=== PATIENT | male | born 1945 | race Caucasian/White ===

== ENCOUNTER → 2017-11-19 12:35 | Outpatient (CLI) | payer MEDICARE, OTHER, SELFPAY | PROVIDERS: Family Provider Family Medicine; PCP Family Medicine; Visit Provider Nurse Practitioner Acute Care | DX: R20.0 Anesthesia of skin (principal); R20.2 Paresthesia of skin | CPT/HCPCS: 98960; G0463 ==

== ENCOUNTER → 2017-11-24 07:15 | Outpatient (CLI) | payer MEDICARE, OTHER, SELFPAY ==
--- NOTE | 2017-11-24 07:20 | CT_ITS ---
STUDY: CT CERVICAL SPINE WITHOUT CONTRAST REASON FOR EXAM: Male, 72 years old. Numbness and tingling in the right side of the neck and pain. RADIATION DOSAGE (If Supplied By Facility): CTDIvol = ( 28.50 ) mGy, DLP = ( 653.04 ) mGycm TECHNIQUE: High resolution transaxial imaging was performed without contrast material. Sagittal and coronal images were reconstructed. Individualized dose optimization techniques were used for this CT. COMPARISON: None FINDINGS: Normal craniovertebral junction. There are degenerative changes of the anterior atlantoaxial articulation. Normal odontoid process. Normal cervical lordosis. Normal vertebral bodies and posterior osseous elements. C2-3: Facet joint osteoarthritis worse on the left side with hypertrophy. Mild left neural foraminal stenosis. C3-4: Facet joint osteoarthritis and hypertrophy on the right side with mild degree of right neural foraminal stenosis. C4-5: Mild degree of disc space narrowing and anterior spondylosis. No significant stenosis is seen. C5-6: Marked degree of disc space narrowing in the spondylosis anteriorly and posteriorly with uncovertebral arthrosis. Mild degree of bilateral neural foraminal stenosis. C6-7: Marked degree of disc space narrowing and spondylosis. Uncovertebral arthrosis. Moderate to severe stenosis of the right intervertebral foramen. Mild stenosis of the left intervertebral foramen. C7-T1: Normal endplates. Normal disc height and morphology. Normal central canal and intervertebral neuroforamina. Normal visualized soft tissue structures. CT/Spine Cervical without Contras IMPRESSION: Multilevel degenerative changes, as described above. Moderate to severe stenosis of the right intervertebral foramen at the C6-C7 level. Electronically Signed: Quan Peterson MD at 10:41 EST Tel [phone], Service support ,
--- NOTE | 2017-11-24 07:20 | CT_ITS ---
STUDY: CT THORACIC SPINE WITHOUT CONTRAST REASON FOR EXAM: Male, 72 years old. Numbness and tingling along the right side of the body. RADIATION DOSAGE (If Supplied By Facility): CTDIvol = ( 42.60 ) mGy, DLP = ( 1738.16 ) mGycm TECHNIQUE: The patient was scanned in a multi detector CT scanner. High resolution imaging was performed. Images were obtained from T1 to T12. Sagittal and coronal images were reconstructed. Individualized dose optimization techniques were used for this CT. COMPARISON: None. FINDINGS: There is an increased kyphosis of the thoracic spine. There is no substantial scoliosis. There is demineralization of the thoracic vertebrae. Approximately 50% loss of height of the T2 and T3 vertebrae. There is multilevel degenerative disc disease with loss of the disc space heights. The soft tissue structures are unremarkable. CT/Spine Thoracic without Contras IMPRESSION: The mineralization of the thoracic vertebra with loss of height of the T2 and T3 thoracic vertebrae. Electronically Signed: Quan Peterson MD at 10:51 EST Tel [phone], Service support ,
== END ==
PROVIDERS: Family Provider Family Medicine; PCP Family Medicine; Visit Provider Nurse Practitioner Acute Care
DX: R20.2 Paresthesia of skin (principal); R20.0 Anesthesia of skin
CPT/HCPCS: 72125; 72128

== ENCOUNTER → 2018-01-04 09:19 | Outpatient (CLI) | payer MEDICARE, OTHER, SELFPAY ==
[2018-01-04 12:16] LABS: Color, Urine Yellow (Yellow); Glucose, Dipstick Normal (Normal); Ketone-Dipstick Negative (Negative); Leukocyte Esterase-Dipstick Negative /ul (Negative); Nitrite-Dipstick Negative (Negative); Occult Blood-Urine Negative /ul (Negative); Protein-Dipstick Negative (Negative); Urine Bilirubin Dipstick Negative (Negative); Urine Clarity Sl. Cloudy (Clear); Urine Urobilinogen Normal (Normal)
[2018-01-04 12:20] LABS: Absolute Lymphocyte Count 0.91 X10^3/ul (0.83-4.51); Absolute Neutrophil Count 1.9 X10^3/uL (2.0-7.7); Basophil# 0.02 X10^3/uL; Basophil% 0.6 % (0-1); Eosinophil# 0.26 X10^3/uL; Eosinophils% 7.5 % (0-5); Hematocrit 35.9 % (40-54); Lymphocyte # 0.91 X10^3/ul (4.0); Lymphocyte % 26.2 % (19-41); Mean Corp Hgb Conc 30.6 g/gl (32-36); Mean Platelet Vol. 10.3 fl (6.2-12.0); Monocyte# 0.35 X10^3/uL; Monocyte% 10.1 % (0-10); Neutrophil # 1.92 X10^3/uL (2.7-7.7); Neutrophil % 55.3 % (47-70); Platelet Count 296 K/mm3 (150-450); RBC Distribution Width CV 15.5 % (11.6-14.6); RBC Distribution Width SD 50.1 fl (35.1-43.9); Red Blood Count 4.08 M/mm3 (4.6-6.2); White Blood Count 3.5 K/mm3 (4.4-11.0)
[2018-01-04 12:31] LABS: POSITIVE COUNT NO; POSITIVE DIFFERENTIAL NO; POSITIVE MORPHOLOGY NO
[2018-01-04 12:37] LABS: ALB/GLOB Ratio 0.9 RATIO (0.9-2.4); AST(SGOT) 30 U/L (15-37); Alanine Aminotransfer ALT/SGPT 47 U/L (16-61); Albumin, Serum 3.9 g/dL (3.2-5.0); Alkaline Phosphatase 207 U/L (45-117); Anion Gap 10 (5-15); BUN 16 mg/dL (7-18); BUN/Creat Ratio 21.8 RATIO (10-20); Calcium,Total 8.9 mg/dL (8.5-10.1); Chloride 109 mmol/L (98-107); Creatinine, Serum 0.73 mg/dL (0.70-1.30); EST Glomerular Filtration Rate 112 mL/min (>60); Est Glom Filt Rate - Afr Amer 135 mL/min (>60); Ferritin 14 ng/mL (26-388); Globulin 4.4 g/dL (2.2-4.2); Glucose 87 mg/dL (74-106); Iron 41 ug/dL (65-175); Protein, Total 8.3 g/dL (6.4-8.2); Sodium Level 145 mmol/L (136-145); T4 Free Direct 1.09 ng/dL (0.76-1.46); Thyroid Stim Hormone (TSH) 5.21 uIU/mL (0.358-3.74)
[2018-01-06 16:10] LABS: PROEL- Alpha-1 Globulin 0.2 g/dL (0.0-0.4); PROEL- Alpha-2 Globulin 0.7 g/dL (0.4-1.0); PROEL- Beta Globulin 1.2 g/dL (0.7-1.3); PROEL- Gamma Globulin 1.8 g/dL (0.4-1.8); PROEL- Globulin, Total 3.9 g/dL (2.2-3.9); PROEL- TOTAL PROTEIN 7.9 g/dL (6.0-8.5)
== END ==
PROVIDERS: Family Provider Family Medicine; PCP Family Medicine; Visit Provider Family Medicine
DX: D64.9 Anemia, unspecified (principal); R60.9 Edema, unspecified; R53.83 Other fatigue
CPT/HCPCS: 36415; 80053; 81002; 82728; 83540; 84165; 84439; 84443; 85025

== ENCOUNTER → 2018-01-14 08:18 | Outpatient (CLI) | payer MEDICARE, OTHER, SELFPAY ==
[2018-01-14 12:50] LABS: ALB/GLOB Ratio 0.9 RATIO (0.9-2.4); AST(SGOT) 34 U/L (15-37); Alanine Aminotransfer ALT/SGPT 35 U/L (16-61); Albumin, Serum 4.1 g/dL (3.2-5.0); Alkaline Phosphatase 165 U/L (45-117); Anion Gap 7 (5-15); BUN 15 mg/dL (7-18); BUN/Creat Ratio 17.9 RATIO (10-20); Calcium,Total 8.8 mg/dL (8.5-10.1); Chloride 107 mmol/L (98-107); Creatinine, Serum 0.84 mg/dL (0.70-1.30); EST Glomerular Filtration Rate 96 mL/min (>60); Est Glom Filt Rate - Afr Amer 116 mL/min (>60); Globulin 4.5 g/dL (2.2-4.2); Glucose 94 mg/dL (74-106); Potassium 4.1 mmol/L (3.5-5.1); Protein, Total 8.6 g/dL (6.4-8.2); Sodium Level 140 mmol/L (136-145)
== END ==
PROVIDERS: Family Provider Family Medicine; PCP Family Medicine; Visit Provider Family Medicine
DX: R60.9 Edema, unspecified (principal)
CPT/HCPCS: 36415; 80053

== ENCOUNTER → 2018-01-29 09:27 | Outpatient (CLI) | payer MEDICARE, OTHER, SELFPAY ==
--- NOTE | 2018-01-29 10:00 | MRI_ITS ---
MR Spine Cervical W/O Contrast INDICATION: c/o worsening neck pain x 6 mons, tingling in rt fingers, multiple falls COMPARISON: CT cervical spine November 24, 2017 TECHNIQUE: Multiplanar multisequence MRI examination of the cervical spine without contrast FINDINGS: The nasopharynx appears to be completely opacified by a lobulated T2 hyperintense mass, possibly polypoid mucosal thickening, please correlate with visual inspection. There is normal cervical lordosis and normal alignment at the atlantoaxial articulation and craniocervical junction. Positioning of the cerebellar tonsils is normal. Bone marrow signal is heterogenous, likely due to degenerative changes. No evidence of bone marrow edema. The cervical spine is narrowed from C2-C3 through C7-T1 with flattening of the cord. The signal within the cord appears preserved. C2-3 level demonstrates degenerative disc disease and posterior disc osteophyte formation and less predominant facet arthritic changes, resulting in mild spinal canal narrowing. Residual AP diameter is 9 mm. C3-4 level demonstrates degenerative disc disease with circumferential disc osteophyte formation and bilateral uncovertebral joint hypertrophy. There is bilateral facet joint arthropathy/hypertrophy and thickening of the ligamentum flavum. Combination of the findings result in moderate spinal canal and bilateral neuroforaminal stenosis with residual AP diameter of the canal of 6 mm. C4-5 level demonstrates posterior disc osteophyte formation and bilateral uncovertebral joint hypertrophy and facet arthritic changes. Combination of the findings result in moderate spinal canal and mild bilateral neuroforaminal narrowing with residual AP diameter of the spinal canal of 7 mm. C5-6 level demonstrates decrease in disc height and circumferential disc osteophyte formation, marked bilateral uncovertebral joint hypertrophy and facet arthritic changes with thickening of the ligamentum flavum. Combination of the findings result in severe spinal canal and bilateral neuroforaminal stenosis with residual AP diameter of the spinal canal of approximately 4 mm. The CSF spaces effaced. C6-7 level demonstrates posterior disc osteophyte formation and facet arthritic changes. Bilateral uncovertebral joint hypertrophy is noted. Combination of the findings result in mild spinal canal and moderate to severe bilateral neuroforaminal stenosis. MRI/Spine Cervical (Routine) IMPRESSION: Opacification of the nasopharynx by soft tissue, please correlate with visual inspection to exclude mass. Marked multilevel degenerative disc disease, uncovertebral joint hypertrophy and facet arthritic changes at the cervical spine resulting in C2-3 level: Mild spinal canal narrowing. C3-4 level: Moderate spinal canal and bilateral neuroforaminal stenosis. C4-5 level: Moderate spinal canal and bilateral neuroforaminal stenosis. C5-6 level: Severe spinal canal and bilateral neuroforaminal stenosis. C6-7 level: Mild spinal canal and moderate to severe bilateral neuroforaminal stenosis. at 1346 Reported and signed by: Mita Guthrie MD Electronically Signed: Mita Gutrhie MD at 13:44 EDT Tel , Service support ,
== END ==
PROVIDERS: Family Provider Family Medicine; PCP Family Medicine
DX: M48.02 Spinal stenosis, cervical region (principal)
CPT/HCPCS: 72141

== ENCOUNTER → 2018-02-02 07:02 | Outpatient (CLI) | payer MEDICARE, OTHER, SELFPAY ==
--- NOTE | 2018-02-02 10:22 | NEURO ---
NCS and/or EMG Patient Report Ordering Doctor: Maria Del Rosario Torres DATE OF SERVICE: 02/02/18 This is a bilateral upper extremity nerve conduction study and a right upper extremity EMG performed on this 72-year-old male with numbness in his fourth and fifth digits intermittently bilaterally. There is also a history of neck issues. He describes neck pain which is nonradiating. There is no history of diabetes or excessive alcohol intake. On examination his strength, sensation and reflexes are intact. Bilateral upper extremity sensory and motor nerve conduction studies are performed. The median motor amplitude across the elbow on the right side is mildly diminished, with intact latencies and conduction velocities. The ulnar sensory responses bilaterally are normal and the left ulnar motor responses normal. The bilateral median motor distal latencies amplitudes and conduction velocities are intact in the bilateral median sensory responses are intact. The median and ulnar f wave responses are intact bilaterally. Right upper extremity needle electromyography is performed. Muscles evaluated included the first dorsal interosseous, abductor pollicis brevis, brachioradialis, biceps, triceps and deltoid muscles. All muscles demonstrated normal insertional activity with absence of pathologic spontaneous activity. Motor unit potential recruitment pattern and amplitude was normal in all muscles tested. 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 There is no evidence of radiculopathy on this study.
== END ==
PROVIDERS: Family Provider Family Medicine; PCP Family Medicine; Visit Provider Nurse Practitioner Acute Care
DX: R20.0 Anesthesia of skin (principal); R20.2 Paresthesia of skin
CPT/HCPCS: 95886; 95912

== ENCOUNTER → 2018-02-11 13:13 | Outpatient (CLI) | payer MEDICARE, OTHER, SELFPAY | PROVIDERS: Family Provider Family Medicine; PCP Family Medicine; Visit Provider Nurse Practitioner Acute Care | DX: Z46.89 Encounter for fitting and adjustment of other specified devices (principal) ==

== ENCOUNTER 2018-02-23 10:00 | Outpatient (RCR) | payer MEDICARE, OTHER, SELFPAY ==
--- NOTE | 2017-10-27 11:34 | HP.PTEVAL_ITS ---
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 Date of Evaluation: 10/27/17 Physical Therapist: Joan Muñoz - Visit Plan Frequency: 3x /Week Duration: 2 Months Plan: Called Rehab and they will get pt a wedge cushion. will pick it up tomm. 2X/ week for 6 weeks for LE strengthening, gait training, functional activities, ROM within restrictions, - Subjective Subjective: Pt reports that underneath the ball the stem had been cracked in multiple ways and that was what was contributing to the instability....it is now healing but they put a bigger ball and a new sleeve in.... Prognosis is good as long as we stay within the precautions for 6 months.......For 4 weeks no bending into flexion past 70 degrees. said he can do some abduction. Dr wants the pt to stand with his toes abducted. said he may not be able to bemd more than 90 degrees for the rest of his life. Pt sees the Dr again Nov 19. said everything went well. did not say anything about the walker...he uses the cane inside and the walker outside. He feels that his L leg is really strong. Pt left rehab last . He is not doing exercises at home. He was doing general leg exercises in rehab. Pt can not drive for at least 4 weeks. Pt does stairs with a cane and a railing. He goes up with R leg first and then L leg. 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 He has no pain now but when he does he has it under his L buttcheek and then front anterior thigh. Pt now has a lift chair to help him get out. - Pain L hip pain Pain Intensity (Out of 10): 0 Pain Intensity Range: 7 - Objective Gait: rolling walker with trunk flexion and recip gait pattern. Supine to sit with mod A by therapist to get both legs together onto the mat. Sit to stand: L hip flexion AROM 55 degrees in supine - Goals Goal 1:: I HEP Goal Time Frame: 4-6 Weeks Goal 2:: Increase L hip flexion to 70 degrees Goal Time Frame: 4-6 Weeks Goal 3:: Walk with a straight cane with only a slight antalgic gait with SBA Goal Time Frame: 6-8 Weeks Goal 4:: Be able to go up and down stairs recip with 1 hand rail with ease Goal Time Frame: 6-8 Weeks Goal 5:: Sit to supine indep with his LE's Goal Time Frame: 6-8 Weeks - Anticipated Interventions Patient/Client Instruction: Educate patient on: Plan of Care For the Purpose of:: To decrease pain, To increase ROM, To improve nutrient delivery to tissue, To improve muscle performance and motor function, To improve ability to perform ADL's, To increase tolerance to activity/condition/ position, To improve gait and locomotor functions, To improve health of tissue, To improve balance Therapeutic Exercise to Include: Strength training, Endurance training, Gait and locomotor training, Active ROM For the Purpose of:: To increase ROM, To improve nutrient delivery to tissue, To improve muscle performance and motor function, To improve ability to perform ADL's, To increase tolerance to activity/condition/position, To decrease level of supervision to perform tasks, To improve ability of physical actions for home /community/work/leisure, To improve gait and locomotor functions, To improve health of tissue, To increase flexibility/ROM, To improve balance, To improve safety with gait Functional Training to Include: Gait training For the Purpose of:: To improve gait and locomotor functions, To improve safety with gait Thank you for the opportunity to evaluate your patient. For Medicare and Medicare HMO plans, please review the plan of care and approve it. It will need to be FAXED BACK to us at [phone] for Medicare purposes. Please let me know if there are questions or concerns regarding this plan of care. Physician Signature: Date:
--- NOTE | 2018-01-20 11:59 | HP.PTREVAL_ITS ---
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 Please see the progress note below for an update on the physical therapy plan of care! Subjective: Pt is taking 2000 feet walking and wants to walk more. Pt sees Dr Moss about 2 months from now. Objective/Function: Gait: walks with slight decrease stance time on the L leg especially with fatigue. Decrease push through L leg when ascending stairs. Pt is able to do the seated hip abd machine and maintain hip precautions with an added cushion Plan Plan: Bike stepper. Multi-hip flex and abd 40#. Seated hip abd with extra seat cushion 30# 3 x 10. sTEP UPS. WALKS FW, SW AND bW AGAINST A WALL. SLANT BOARD STRETCH Goals Goal 1:: I HEP Goal Time Frame: 4-6 Weeks Goal Progress: Goal Met Goal 2:: Increase L hip flexion to 70 degrees Goal Time Frame: 4-6 Weeks Goal Progress: Goal Met Goal 3:: Walk with a straight cane with only a slight antalgic gait with SBA Goal Time Frame: 6-8 Weeks Goal Progress: Goal Met Goal 4:: Be able to go up and down stairs recip with 1 hand rail with ease Goal Time Frame: 6-8 Weeks Goal Progress: Goal Met Goal 5:: Sit to supine indep with his LE's Goal Time Frame: 6-8 Weeks Goal Progress: Goal Met Anticipated Interventions Patient/Client Instruction: Educate patient on: Plan of Care For the Purpose of:: To decrease pain, To increase ROM, To improve nutrient delivery to tissue, To improve muscle performance and motor function, To improve ability to perform ADL's, To increase tolerance to activity/condition/ position, To improve gait and locomotor functions, To improve health of tissue, To improve balance Therapeutic Exercise to Include: Strength training, Endurance training, Gait and locomotor training, Active ROM For the Purpose of:: To increase ROM, To improve nutrient delivery to tissue, To improve muscle performance and motor function, To improve ability to perform ADL's, To increase tolerance to activity/condition/position, To decrease level of supervision to perform tasks, To improve ability of physical actions for home /community/work/leisure, To improve gait and locomotor functions, To improve health of tissue, To increase flexibility/ROM, To improve balance, To improve safety with gait Functional Training to Include: Gait training For the Purpose of:: To improve gait and locomotor functions, To improve safety with gait Please do not hesitate to contact me at [phone] by phone or Fax: if you have questions or concerns regarding this new plan of care! Sincerely, Joan Mñuoz
--- NOTE | 2018-02-23 11:05 | HP.PTDCSUM_ITS ---
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 Discharge Date: 02/23/18 Please see the following information for a summary of their discharge status. - Subjective Subjective: Saw neurosurgeon in [place] and they are going to operate on his neck in May 10. Pt will have to be into hospital for 2-3 days and will be very painful and will have a seb in his neck. Two of the vertebreas are pushing on the spinal cord and will stop his fw head posture. Dr said to be smart. Dr felt that he has had this for sometime and has affected him for years and why he could be having balance issues. Dr said pt will be in a wheelchair in 3 years if he does not have surgery. Pt reports that he has been coming in here to walk but fatigues out at about .5 miles due to back bothering him which he thinks might be related to his neck. He reports that he has not done too many machines and reports that he is just fatigued. - Pain L hip pain Pain Intensity (Out of 10): 0 - Overall Improvement % Improvement: 75 - Objective Objective/Function: Gait: still slight decreased stance time on the L LE with valgus at the L knee. - Goals Goal 1:: I HEP Goal Progress: Goal Met Goal 2:: Increase L hip flexion to 70 degrees Goal Progress: Goal Met Goal 3:: Walk with a straight cane with only a slight antalgic gait with SBA Goal Progress: Goal Met Goal 4:: Be able to go up and down stairs recip with 1 hand rail with ease Goal Progress: Goal Met Goal 5:: Sit to supine indep with his LE's Goal Progress: Goal Met - Plan Plan: DC PT - D/C Information Discharge Comments: DC PT If there are questions or concerns regarding this patient's physical therapy, please feel free to call me at [phone]. Thank you for the referral of this patient. Sincerely, Joan Muñoz
== END 2018-02-23 19:00 | disposition home or self-care (01) ==
LOC: PT 10:00
PROVIDERS: Family Provider Family Medicine; PCP Family Medicine; Visit Provider Specialist
DX: Z96.642 Presence of left artificial hip joint (principal)
CPT/HCPCS: 97110; 97161; 97530

== ENCOUNTER → 2018-04-23 14:40 | Outpatient (CLI) | payer MEDICARE, OTHER, SELFPAY ==
[2018-04-23 15:49] LABS: Absolute Lymphocyte Count 0.99 X10^3/ul (0.83-4.51); Absolute Neutrophil Count 2.4 X10^3/uL (2.0-7.7); Basophil# 0.04 X10^3/uL; Basophil% 0.9 % (0-1); Eosinophil# 0.24 X10^3/uL; Eosinophils% 5.7 % (0-5); Hematocrit 36.9 % (40-54); Hemoglobin 11.3 g/dl (13.0-16.5); Lymphocyte # 0.99 X10^3/ul (4.0); Lymphocyte % 23.3 % (19-41); Mean Corp Hgb Conc 30.6 g/gl (32-36); Mean Corpuscular Hgb 26.8 pg (27.0-32.0); Mean Corpuscular Volume 87.6 fL (80-94); Mean Platelet Vol. 9.7 fl (6.2-12.0); Monocyte# 0.56 X10^3/uL; Monocyte% 13.2 % (0-10); Neutrophil # 2.41 X10^3/uL (2.7-7.7); Neutrophil % 56.9 % (47-70); Platelet Count 259 K/mm3 (150-450); RBC Distribution Width CV 16.6 % (11.6-14.6); RBC Distribution Width SD 53.5 fl (35.1-43.9); Red Blood Count 4.21 M/mm3 (4.6-6.2); White Blood Count 4.2 K/mm3 (4.4-11.0)
[2018-04-23 16:19] LABS: Anion Gap 6 (5-15); BUN 15 mg/dL (7-18); BUN/Creat Ratio 17.2 RATIO (10-20); Chloride 107 mmol/L (98-107); Creatinine, Serum 0.87 mg/dL (0.70-1.30); EST Glomerular Filtration Rate 91 mL/min (>60); Est Glom Filt Rate - Afr Amer 110 mL/min (>60); Glucose 78 mg/dL (74-106); POSITIVE COUNT NO; POSITIVE DIFFERENTIAL NO; POSITIVE MORPHOLOGY NO; Potassium 3.6 mmol/L (3.5-5.1); Sodium Level 142 mmol/L (136-145)
== END ==
PROVIDERS: Family Provider Family Medicine; PCP Family Medicine; Visit Provider Family Medicine
DX: Z01.818 Encounter for other preprocedural examination (principal); M50.20 Other cervical disc displacement, unspecified cervical region
CPT/HCPCS: 36415; 80048; 85025

== ENCOUNTER → 2018-07-13 11:14 | Outpatient (CLI) | payer MEDICARE, OTHER, SELFPAY ==
[2018-07-13 15:25] LABS: Absolute Lymphocyte Count 0.89 X10^3/ul (0.83-4.51); Absolute Neutrophil Count 2.5 X10^3/uL (2.0-7.7); Basophil# 0.02 X10^3/uL; Basophil% 0.5 % (0-1); Eosinophil# 0.24 X10^3/uL; Eosinophils% 5.7 % (0-5); Hematocrit 37.1 % (40-54); Hemoglobin 11.6 g/dl (13.0-16.5); Lymphocyte # 0.89 X10^3/ul (4.0); Lymphocyte % 21.3 % (19-41); Mean Corp Hgb Conc 31.3 g/gl (32-36); Mean Corpuscular Hgb 27.3 pg (27.0-32.0); Mean Corpuscular Volume 87.3 fL (80-94); Mean Platelet Vol. 10.5 fl (6.2-12.0); Monocyte# 0.52 X10^3/uL; Monocyte% 12.4 % (0-10); Neutrophil % 59.9 % (47-70); Platelet Count 279 K/mm3 (150-450); RBC Distribution Width CV 15.2 % (11.6-14.6); Red Blood Count 4.25 M/mm3 (4.6-6.2); White Blood Count 4.2 K/mm3 (4.4-11.0)
[2018-07-13 15:26] LABS: POSITIVE COUNT NO; POSITIVE DIFFERENTIAL NO; POSITIVE MORPHOLOGY NO
[2018-07-13 15:43] LABS: AST(SGOT) 29 U/L (15-37); Alanine Aminotransfer ALT/SGPT 33 U/L (16-61); Albumin, Serum 4.2 g/dL (3.2-5.0); Alkaline Phosphatase 123 U/L (45-117); Anion Gap 6 (5-15); BUN 17 mg/dL (7-18); Calcium,Total 9.3 mg/dL (8.5-10.1); Chloride 106 mmol/L (98-107); Creatinine, Serum 0.85 mg/dL (0.70-1.30); EST Glomerular Filtration Rate 94 mL/min (>60); Est Glom Filt Rate - Afr Amer 114 mL/min (>60); Ferritin 11 ng/mL (26-388); Globulin 4.4 g/dL (2.2-4.2); Glucose 83 mg/dL (74-106); Iron 60 ug/dL (65-175); Potassium 4.1 mmol/L (3.5-5.1); Protein, Total 8.6 g/dL (6.4-8.2); Sodium Level 139 mmol/L (136-145); T4 Free Direct 0.87 ng/dL (0.76-1.46); Thyroid Stim Hormone (TSH) 3.85 uIU/mL (0.358-3.74)
== END ==
PROVIDERS: Family Provider Family Medicine; PCP Family Medicine; Visit Provider Family Medicine
DX: D50.9 Iron deficiency anemia, unspecified (principal); R94.5 Abnormal results of liver function studies; R94.6 Abnormal results of thyroid function studies
CPT/HCPCS: 36415; 80053; 82728; 83540; 84439; 84443; 85025

== ENCOUNTER → 2018-07-14 11:38 | Outpatient (CLI) | payer MEDICARE, OTHER, SELFPAY | PROVIDERS: Family Provider Family Medicine; PCP Family Medicine; Visit Provider Family Medicine | DX: D50.9 Iron deficiency anemia, unspecified (principal); R94.5 Abnormal results of liver function studies ==

== ENCOUNTER → 2018-07-20 13:16 | Outpatient (CLI) | payer MEDICARE, OTHER, SELFPAY ==
--- NOTE | 2018-07-20 13:28 | BD_ITS ---
STUDY: DUAL ENERGY X-RAY ABSORPTIOMETRY / DXA REASON FOR EXAM: Male, 73 years old. Postmenopausal screening TECHNIQUE: Bone Mineral Density (BMD) measurements of lumbar spine and right hip were obtained. COMPARISON: None. FINDINGS: Lumbar Spine (L1-L4): g/cm2 (0.928) / T-score (-2.3) / Z-score (-1.7) Findings are suggestive of osteopenia with a moderate fracture risk. Right Femur Total: g/cm2 (0.652) / T-score (-3.1) / Z-score (-2.3) Right Femoral Neck: g/cm2 (0.634) / T-score (-3.4) / Z-score (-2.1) BD/Dexa Bone Density Study IMPRESSION: The patient is considered osteoporotic as outlined below according to World [employer] Organization (WHO) criteria with a high fracture risk. Reference Information: The T-score is the number of standard deviations above or below the standard which is normal for young adults at their peak bone mineral density. The World Health Organization (WHO) interprets the T-scores as follows: Above -1 Normal bone density Between -1 and -2.5 Osteopenia Equal to / or below -2.5 Osteoporosis As a practical clinical guideline, osteopenia may be graded as follows: Mild -1 through -1.5 Moderate -1.6 through -2.0 Severe -2.1 through -2.4 The Z-score is the number of standard deviations above or below age-matched controls. A Z-score of less than -1.5 would be considered abnormal. References: 1. NIH Osteoporosis and Related Bone Diseases http://www.osteo.org 2. International Society for Clinical Densitometry http://www.iscd.org 3. National Osteoporosis Foundation http://www.nof.org Electronically Signed: Shan Ghotra MD at 12:12 EDT , Service support ,
== END ==
PROVIDERS: Family Provider Family Medicine; PCP Family Medicine; Visit Provider Family Medicine
DX: R29.890 Loss of height (principal); Z84.89 Family history of other specified conditions; Z79.51 Long term (current) use of inhaled steroids; S22.000A Wedge compression fracture of unspecified thoracic vertebra, initial encounter for closed fracture
CPT/HCPCS: 77080; 97110

== ENCOUNTER 2018-08-20 12:30 | Outpatient (RCR) | payer MEDICARE, OTHER, SELFPAY ==
--- NOTE | 2018-06-02 16:58 | HP.PTEVAL ---
Patient's Visit Information EVA GONZALEZ is a 73 year old M referred to Physical Therapy by CRISPIN JOYCE with a diagnosis of cervical myelopathy (s/p lami with lateral fixation C3-C7). Date of Evaluation: 06/02/18 Physical Therapist: Joan Muñoz - Visit Plan Frequency: 2x /Week Duration: 6 Months Plan: Pt needs a wedge cushion when sitting on chairs so that his L THR wont pop out (h/o of popping out). 2X/ week for 6 weeks for C-spine AROM, MT to c-spine, paraspinals, and postural muscles, postural and scapular strengthening with HEP and Modalities PRN - Subjective Subjective: Pt reports that today is the most pain he has been in since the surgery. He puts ice on it and that seems to help it. He did sleep with a firmer pillow last night. Complains of R sided neck pain and down the middle of his back and sometimes across the shoulders. His surgery was May 10. said that he was allowed to drive and take collar off. He is 20# lifting restriction. He has had a little tingling in the R hand slightly when he woke up yesterday. He has had some pain in his arms and was told that that was normal and that was not very severe. Pt has a little bit of a MARTIN. There are days where there is a lot less pain. will do another MRI in June. MRi 2 weeks ago looks good. - Pain c-spine Pain Intensity (Out of 10): 9 - Objective Gait: Decreased stance time on the L LE. C-spine AROM: flex 100%, ext 10%, Rot B 25%, SB B 5%. UE AROM: full ROM. UE MMT: Shld flex R 4-/5, L 4/5, bicep B 4/5, ER/IR B 4/5. Bicep DTR: 1+/3 B. Posture: sits with rounded posture and FW head posture. Head Start Teacher strength: R handed R 93# and L 75# - Goals Goal 1:: I HEP Goal Time Frame: 4-6 Weeks Goal 2:: Decrease neck pain to 1/10 with ADL's Goal Time Frame: 4-6 Weeks Goal 3:: Increase c-spine AROM by 25% each plane (at time of eval: C-spine AROM: flex 100%, ext 10%, Rot B 25%, SB B 5%) Goal Time Frame: 4-6 Weeks Goal 4:: Sit with upright posture during treatment sessions Goal Time Frame: 4-6 Weeks - Rehabilitation Potential Rehabilitation Potential: Good - Anticipated Interventions Thank you for the opportunity to evaluate your patient. For Medicare and Medicare HMO plans, please review the plan of care and approve it. It will need to be FAXED BACK to us at [phone] for Medicare purposes. Please let me know if there are questions or concerns regarding this plan of care. Physician Signature: Date:
--- NOTE | 2018-06-02 19:04 | HP.PTEVAL_ITS ---
Patient's Visit Information EVA GONZALEZ is a 73 year old M referred to Physical Therapy by CRISPIN JOYCE with a diagnosis of cervical myelopathy (s/p lami with lateral fixation C3-C7). Date of Evaluation: 06/02/18 Physical Therapist: Joan Muñoz - Visit Plan Frequency: 2x /Week Duration: 6 Months Plan: Pt needs a wedge cushion when sitting on chairs so that his L THR wont pop out (h/o of popping out). 2X/ week for 6 weeks for C-spine AROM, MT to c- spine, paraspinals, and postural muscles, postural and scapular strengthening with HEP and Modalities PRN - Subjective Subjective: Pt reports that today is the most pain he has been in since the surgery. He puts ice on it and that seems to help it. He did sleep with a firmer pillow last night. Complains of R sided neck pain and down the middle of his back and sometimes across the shoulders. His surgery was May 10. said that he was allowed to drive and take collar off. He is 20# lifting restriction. He has had a little tingling in the R hand slightly when he woke up yesterday. He has had some pain in his arms and was told that that was normal and that was not very severe. Pt has a little bit of a MARTIN. There are days where there is a lot less pain. will do another MRI in June. MRi 2 weeks ago looks good. - Pain c-spine Pain Intensity (Out of 10): 9 - Objective Gait: Decreased stance time on the L LE. C-spine AROM: flex 100%, ext 10%, Rot B 25%, SB B 5%. UE AROM: full ROM. UE MMT: Shld flex R 4-/5, L 4/5, bicep B 4/5, ER/IR B 4/5. Bicep DTR: 1+/3 B. Posture: sits with rounded posture and FW head posture. Social Media Job Titles strength: R handed R 93# and L 75# - Goals Goal 1:: I HEP Goal Time Frame: 4-6 Weeks Goal 2:: Decrease neck pain to 1/10 with ADL's Goal Time Frame: 4-6 Weeks Goal 3:: Increase c-spine AROM by 25% each plane (at time of eval: C-spine AROM : flex 100%, ext 10%, Rot B 25%, SB B 5%) Goal Time Frame: 4-6 Weeks Goal 4:: Sit with upright posture during treatment sessions Goal Time Frame: 4-6 Weeks - Rehabilitation Potential Rehabilitation Potential: Good - Anticipated Interventions Thank you for the opportunity to evaluate your patient. For Medicare and Medicare HMO plans, please review the plan of care and approve it. It will need to be FAXED BACK to us at [phone] for Medicare purposes. Please let me know if there are questions or concerns regarding this plan of care. Physician Signature: Date:
--- NOTE | 2018-07-02 11:13 | HP.PTREVAL_ITS ---
CRISPIN JOYCE, It has been my pleasure to treat EVA GONZALEZ over the last 10 visits for cervical myelopathy (s/p lami with lateral fixation C3-C7). Please see the progress note below for an update on the physical therapy plan of care! Subjective: Pt reports that he is about 70-80% better. He sees the Dr next Wed. He reports that he has some stiffness in his neck and that the pain that he had the other day is gone. Objective/Function: c-spine AROM: ext 25%, Rot B 50% normal ROM, flex 100%, SB B 10% with increase pain. Posture: working on keeping head up throughout the day and keeping shoulders back. Issued blue t-band for home exercises. Plan Plan: Schedule 1 additional visit after MD appointment and probably DC to HEP at that point. Pt will ccontinue with HEP till then Goals Goal 1:: I HEP Goal Time Frame: 4-6 Weeks Goal Progress: Goal Met Goal 2:: Decrease neck pain to 1/10 with ADL's Goal Time Frame: 4-6 Weeks Goal Progress: Progressing Goal 3:: Increase c-spine AROM by 25% each plane (at time of eval: C-spine AROM : flex 100%, ext 10%, Rot B 25%, SB B 5%) Goal Time Frame: 4-6 Weeks Goal Progress: Progressing Goal 4:: Sit with upright posture during treatment sessions Goal Time Frame: 4-6 Weeks Goal Progress: Progressing Anticipated Interventions Please do not hesitate to contact me at [phone] by phone or Fax: if you have questions or concerns regarding this new plan of care! Sincerely, Joan Muñoz
--- NOTE | 2018-08-20 13:08 | HP.PTDCSUM ---
HP - PT D/C Summary It has been my pleasure to treat EVA GONZALEZ under orders from CRISPIN JOYCE, for the diagnosis of cervical myelopathy (s/p lami with lateral fixation C3-C7) for a total of 17 visit(s). Discharge Date: 08/20/18 Please see the following information for a summary of their discharge status. - Subjective Subjective: Pt reports that he is doing good. He paid for sitting at his desk for 7 hours at desk last night. His biggest struggle is still posture and he still finds it difficult to do his work without letting his head move down. Pt will start to resume walking cause he feels better. He is now able to sit at desk without major issues and he could not do it..... - Pain c-spine Pain Intensity (Out of 10): 1 - Overall Improvement % Improvement: 110 - Objective Objective/Function: Posture: sits with upright posture and walks with upright posture. Occ will catch him looking down. c-spine AROM: 100% Rot B, Flex 50%, Ext 25% - Goals Goal 1:: I HEP Goal Progress: Goal Met Goal 2:: Decrease neck pain to 1/10 with ADL's Goal Progress: Goal Met Goal 3:: Increase c-spine AROM by 25% each plane (at time of eval: C-spine AROM: flex 100%, ext 10%, Rot B 25%, SB B 5%) Goal Progress: Progressing Goal 4:: Sit with upright posture during treatment sessions Goal Progress: Goal Met - Plan Plan: DC PT to HEP - D/C Information Discharge Comments: DC PT to home exercises and possible H&W If there are questions or concerns regarding this patient's physical therapy, please feel free to call me at [phone]. Thank you for the referral of this patient. Sincerely, Joan uMñoz
== END 2018-08-20 19:00 | disposition home or self-care (01) ==
LOC: PT 12:30
PROVIDERS: Family Provider Family Medicine; PCP Family Medicine
DX: G95.9 Disease of spinal cord, unspecified (principal)
CPT/HCPCS: 97110; 97140; 97161; 97530

== ENCOUNTER → 2018-09-10 12:55 | Outpatient (CLI) | payer MEDICARE, OTHER, SELFPAY ==
[2018-09-10 13:03] VITALS: BP 126/73; PULSE 53; RESP 18; TEMP 36.3; O2SAT 98; BMI 32.0
[2018-09-10] MEDS: DENOSUMAB 60 MG/ML ML SQ (13:10)
== END ==
PROVIDERS: Family Provider Family Medicine; PCP Family Medicine; Referring Provider Internal Medicine Endocrinology, Diabetes & Metabolism; Visit Provider Internal Medicine Endocrinology, Diabetes & Metabolism
DX: M81.0 Age-related osteoporosis without current pathological fracture (principal); Z87.310 Personal history of (healed) osteoporosis fracture
CPT/HCPCS: 96372; J0897

== ENCOUNTER → 2018-12-28 10:07 | Outpatient (CLI) | payer MEDICARE, OTHER, SELFPAY ==
[2018-09-10 13:03] VITALS: BMI 32.0
[2018-12-28 13:16] LABS: Absolute Lymphocyte Count 0.91 X10^3/ul (0.83-4.51); Basophil# 0.03 X10^3/uL; Basophil% 0.8 % (0-1); Eosinophil# 0.38 X10^3/uL; Eosinophils% 10.3 % (0-5); Hematocrit 43.3 % (40-54); Hemoglobin 13.6 g/dl (13.0-16.5); Lymphocyte # 0.91 X10^3/ul (4.0); Lymphocyte % 24.6 % (19-41); Mean Corp Hgb Conc 31.4 g/gl (32-36); Mean Corpuscular Hgb 29.4 pg (27.0-32.0); Mean Corpuscular Volume 93.5 fL (80-94); Mean Platelet Vol. 11.1 fl (6.2-12.0); Monocyte% 10.8 % (0-10); Neutrophil # 1.97 X10^3/uL (2.7-7.7); Neutrophil % 53.2 % (47-70); Platelet Count 232 K/mm3 (150-450); RBC Distribution Width SD 53.9 fl (35.1-43.9); Red Blood Count 4.63 M/mm3 (4.6-6.2); White Blood Count 3.7 K/mm3 (4.4-11.0)
[2018-12-28 13:17] LABS: POSITIVE COUNT NO; POSITIVE DIFFERENTIAL NO; POSITIVE MORPHOLOGY NO
[2018-12-28 14:08] LABS: AST(SGOT) 24 U/L (15-37); Alanine Aminotransfer ALT/SGPT 31 U/L (16-61); Albumin, Serum 4.1 g/dL (3.2-5.0); Alkaline Phosphatase 108 U/L (45-117); Anion Gap 9 (5-15); BUN 16 mg/dL (7-18); BUN/Creat Ratio 17.7 RATIO (10-20); Calcium,Total 8.7 mg/dL (8.5-10.1); Chloride 110 mmol/L (98-107); EST Glomerular Filtration Rate 88 mL/min (>60); Est Glom Filt Rate - Afr Amer 106 mL/min (>60); Ferritin 22 ng/mL (26-388); Globulin 4.1 g/dL (2.2-4.2); Glucose 113 mg/dL (74-106); Iron 146 ug/dL (65-175); Potassium 3.6 mmol/L (3.5-5.1); Protein, Total 8.2 g/dL (6.4-8.2); Sodium Level 144 mmol/L (136-145); T4 Free Direct 1.04 ng/dL (0.76-1.46)
== END ==
PROVIDERS: Family Provider Family Medicine; PCP Family Medicine; Visit Provider Family Medicine
DX: R94.6 Abnormal results of thyroid function studies (principal); D50.9 Iron deficiency anemia, unspecified; M81.0 Age-related osteoporosis without current pathological fracture; G95.9 Disease of spinal cord, unspecified
CPT/HCPCS: 36415; 80053; 82728; 83540; 84439; 84443; 85025; 97110; 97140

== ENCOUNTER 2019-01-04 13:00 | Outpatient (RCR) | payer MEDICARE, OTHER, SELFPAY ==
[2018-09-10 13:03] VITALS: BMI 32.0
--- NOTE | 2018-11-10 18:34 | HP.PTEVAL_ITS ---
Patient's Visit Information EVA GONZALEZ is a 73 year old M referred to Physical Therapy by Noe Echevarria MD with a diagnosis of cervical myelopathy. Date of Evaluation: 11/10/18 Physical Therapist: DEB Villalobos - Visit Plan Frequency: 2-3x /Week Duration: 6 Weeks Plan: 3X/ week for 3-5 weeks for suboccipital MT, upper c-spine paraspinal MT, levator MT, scapular strength, postural exercises, c-spine AROM with HEP - Subjective Findings: Pt had Fusion in May 10, 2018 and it was C3-C7. He had a few rounds of PT in the past. Saw in early in September and he gave the pt a script for PT. He reports that family life circumstances have kept him from doing PT at home. He had a massage on Thursday and it was really tight. He has a lot of occiput MARTIN and goes to the jaw at times... His mid trap pain is much better. He is generally very sore until he can get moving. He is really painful rotating head to the L. He is still trying to keep his head at the horizon but tends to let his head fall forward..... He is able to work a lot longer since his hip surgery. He saw the hip surgeon in Sep and does not see him for 2 years. He is sleepin ok with his bypap machine. He has some pain in his neck when he first lasys down but it does not wake him up at night. When he wakes up his chest and pain across his shoulders.... He did change his pillow and it does help. His pillow has a little lump in the natural curve of the neck. 2/3 /10 pain when moves neck to the L. Pt is having MARTIN couple times a day - Pain Neck pain Pain Intensity (Out of 10): 3 Headache Pain Intensity (Out of 10): 3 - Objective Palpation: tender B occiput area, upper c-spine tender and B levator area. C-s pine AROM: flexion 25%, ext 15%, Rot B 50%, SB B 15%. UE AROM: shld flex, abd, ER and IR all 4/5. Posture: sits with head slightly flexed fw, he corrects with verbal cues. Pt is able to correct with rounded shoulder posture but everts back over time. - Goals Goal 1:: I HEP Goal Time Frame: 4-6 Weeks Goal 2:: Increase c-spine AROM to the L and have no pain with rotation to the L. Goal 3:: Be able to drive easier and see better with better ROM while driving Goal Time Frame: 4-6 Weeks Goal 4:: Sit with upright posture during treatment sessions. Goal Time Frame: 4-6 Weeks Goal 5:: Abolish headaches coming from the neck Goal Time Frame: 4-6 Weeks - Rehabilitation Potential Rehabilitation Potential: Good - Anticipated Interventions Patient/Client Instruction: Educate patient on: Condition, Plan of Care For the Purpose of:: To decrease pain, To increase ROM, To improve nutrient delivery to tissue, To improve muscle performance and motor function, To improve ability to perform ADL's, To increase tolerance to activity/condition/position, To improve performance and independence with ADL's, To improve health of tissue, To decrease soft tissue restriction, To increase flexibility/ROM Therapeutic Exercise to Include: Strength training, Body mechanics, Postural training, Flexibilty training, Neuromotor development, Passive ROM, Active ROM, Scapular Strength/Stabilization For the Purpose of:: To decrease pain, To increase ROM, To improve nutrient delivery to tissue, To increase oxygenation perfusion, To improve muscle performance and motor function, To improve ability to perform ADL's, To increase tolerance to activity/condition/position, To improve performance and independence with ADL's, To decrease level of supervision to perform tasks, To improve health of tissue, To decrease soft tissue restriction, To increase flexibility/ROM Manual Therapy Techniques to Include: Passive ROM, Soft tissue mobilization For the Purpose of:: To decrease pain, To decrease swelling/inflammation, To increase ROM, To improve nutrient delivery to tissue, To improve muscle performance and motor function, To improve ability to perform ADL's, To increase tolerance to activity/condition/position, To improve performance and independence with ADL's, To improve health of tissue, To decrease soft tissue restriction, To increase flexibility/ROM Thank you for the opportunity to evaluate your patient. For Medicare and Medicare HMO plans, please review the plan of care and approve it. It will need to be FAXED BACK to us at [phone] for Medicare purposes. For Medicare only, by signing this I certify the plan of care. Please let me know if there are questions or concerns regarding this plan of care. Physician Signature: Date:
--- NOTE | 2018-12-01 12:17 | HP.PTREVAL ---
Noe Echevarria MD, It has been my pleasure to treat EVA GONZALEZ over the last 10 visits for cervical myelopathy. Please see the progress note below for an update on the physical therapy plan of care! Subjective: Pt has a MARTIN today but it is from the c-pap. He wakes up in pain but its not bad. Pt feels that he is getting better. Objective/Function: c-spine AROM: 75% c-spine Rotation, flexion 100%, ext 50% normal ROM. Posture: good upright posture. Plan Plan: RE-check tomm. prob 2X/ week saw 2 weeks and then 1X/ week 2 weeks. 3X/ week for 3-5 weeks for suboccipital MT, upper c-spine paraspinal MT, levator MT, scapular strength, postural exercises, c-spine AROM with HEP Goals Goal 1:: I HEP Goal Time Frame: 4-6 Weeks Goal Progress: Goal Met Goal 2:: Increase c-spine AROM to the L and have no pain with rotation to the L. Goal 3:: Be able to drive easier and see better with better ROM while driving Goal Time Frame: 4-6 Weeks Goal Progress: Goal Met Goal 4:: Sit with upright posture during treatment sessions. Goal Time Frame: 4-6 Weeks Goal Progress: Goal Met Goal 5:: Abolish headaches coming from the neck Goal Time Frame: 4-6 Weeks Goal Progress: Progressing Anticipated Interventions Patient/Client Instruction: Educate patient on: Condition, Plan of Care For the Purpose of:: To decrease pain, To increase ROM, To improve nutrient delivery to tissue, To improve muscle performance and motor function, To improve ability to perform ADL's, To increase tolerance to activity/condition/position, To improve performance and independence with ADL's, To improve health of tissue, To decrease soft tissue restriction, To increase flexibility/ROM Therapeutic Exercise to Include: Strength training, Body mechanics, Postural training, Flexibilty training, Neuromotor development, Passive ROM, Active ROM, Scapular Strength/Stabilization For the Purpose of:: To decrease pain, To increase ROM, To improve nutrient delivery to tissue, To increase oxygenation perfusion, To improve muscle performance and motor function, To improve ability to perform ADL's, To increase tolerance to activity/condition/position, To improve performance and independence with ADL's, To decrease level of supervision to perform tasks, To improve health of tissue, To decrease soft tissue restriction, To increase flexibility/ROM Manual Therapy Techniques to Include: Passive ROM, Soft tissue mobilization For the Purpose of:: To decrease pain, To decrease swelling/inflammation, To increase ROM, To improve nutrient delivery to tissue, To improve muscle performance and motor function, To improve ability to perform ADL's, To increase tolerance to activity/condition/position, To improve performance and independence with ADL's, To improve health of tissue, To decrease soft tissue restriction, To increase flexibility/ROM Please do not hesitate to contact me at [phone] by phone or if you have questions or concerns regarding this new plan of care! Sincerely, Joan Muñoz, MPT
--- NOTE | 2019-01-04 13:41 | HP.PTDCSUM ---
HP - PT D/C Summary It has been my pleasure to treat EVA GONZALEZ under orders from Noe Echevarria MD, for the diagnosis of cervical myelopathy for a total of 17 visit(s). Discharge Date: Please see the following information for a summary of their discharge status. - Subjective Subjective: Pt reports that he has 1/2-1 / 10 pain and reports it as more of an ache. He does get an occ MARTIN but not as bad as what it was. If he watches his posture he does very well. He is sleeping through the night. He is considering massage therapy I. - Pain Neck pain Pain Intensity (Out of 10): 1 Headache Pain Intensity (Out of 10): 1 - Overall Improvement % Improvement: 90 - Objective Objective/Function: c-spine AROM: 75% B c-spine AROM rotation ( slight strain with end range rotation to the L). Gait: walks with more upright posture. - Goals Goal 1:: I HEP Goal Progress: Goal Met Goal 2:: Increase c-spine AROM to the L and have no pain with rotation to the L. Goal Progress: Progressing Goal 3:: Be able to drive easier and see better with better ROM while driving Goal Progress: Goal Met Goal 4:: Sit with upright posture during treatment sessions. Goal Progress: Goal Met Goal 5:: Abolish headaches coming from the neck Goal Progress: Progressing Goal 6:: Be able to sleep through the night and not wake up in pain Goal Progress: Goal Met - Plan Plan: DC PT to HEP and possible I self-pay massage - D/C Information If there are questions or concerns regarding this patient's physical therapy, please feel free to call me at [phone]. Thank you for the referral of this patient. Sincerely, Joan Muñoz, MPT
== END 2019-01-04 19:00 | disposition home or self-care (01) ==
LOC: PT 13:00
PROVIDERS: Family Provider Family Medicine; PCP Family Medicine; Referring Provider Neurological Surgery; Visit Provider Neurological Surgery
DX: G95.9 Disease of spinal cord, unspecified (principal)
CPT/HCPCS: 97110; 97140; 97162; 97530

== ENCOUNTER → 2019-03-10 | Outpatient (CLI) | payer MEDICARE, OTHER, SELFPAY ==
[2018-09-10 13:03] VITALS: BMI 32.0
[2019-03-10 13:22] VITALS: BP 142/76; PULSE 78; RESP 18; TEMP 36.4; O2SAT 96; BMI 309.4
[2019-03-10] MEDS: DENOSUMAB 60 MG/ML ML SQ (13:26)
== END | disposition home or self-care (01) ==
LOC: MEDOUTP 13:02
PROVIDERS: Family Provider Family Medicine; PCP Family Medicine; Referring Provider Internal Medicine Endocrinology, Diabetes & Metabolism; Visit Provider Internal Medicine Endocrinology, Diabetes & Metabolism
DX: M81.0 Age-related osteoporosis without current pathological fracture (principal); Z87.310 Personal history of (healed) osteoporosis fracture
CPT/HCPCS: 96372; J0897

== ENCOUNTER → 2019-03-24 | Outpatient (CLI) | payer MEDICARE, OTHER, SELFPAY ==
[2018-09-10 13:03] VITALS: BMI 32.0
[2019-03-10 13:22] VITALS: BMI 309.4
[2019-03-24 12:26] LABS: Absolute Lymphocyte Count 0.91 X10^3/ul (0.83-4.51); Absolute Neutrophil Count 2.1 X10^3/uL (2.0-7.7); Basophil# 0.02 X10^3/uL; Basophil% 0.5 % (0-1); Eosinophil# 0.28 X10^3/uL; Eosinophils% 7.6 % (0-5); Hematocrit 40.3 % (40-54); Lymphocyte # 0.91 X10^3/ul (4.0); Lymphocyte % 24.7 % (19-41); Mean Corp Hgb Conc 32.3 g/gl (32-36); Mean Corpuscular Volume 92.9 fL (80-94); Mean Platelet Vol. 10.7 fl (6.2-12.0); Monocyte# 0.35 X10^3/uL; Monocyte% 9.5 % (0-10); Neutrophil # 2.12 X10^3/uL (2.7-7.7); Neutrophil % 57.4 % (47-70); Platelet Count 233 K/mm3 (150-450); RBC Distribution Width SD 49.5 fl (35.1-43.9); Red Blood Count 4.34 M/mm3 (4.6-6.2); White Blood Count 3.7 K/mm3 (4.4-11.0)
[2019-03-24 12:37] LABS: POSITIVE COUNT NO; POSITIVE DIFFERENTIAL NO; POSITIVE MORPHOLOGY NO
[2019-03-24 13:19] LABS: Vitamin B12 501 pg/mL (211-911); Vitamin D,25 Hydroxy 60.4 ng/mL (29.95-100.01)
[2019-03-24 13:22] LABS: ALB/GLOB Ratio 1.1 RATIO (0.9-2.4); AST(SGOT) 22 U/L (15-37); Alanine Aminotransfer ALT/SGPT 26 U/L (16-61); Albumin, Serum 3.9 g/dL (3.2-5.0); Alkaline Phosphatase 99 U/L (45-117); Anion Gap 9 (5-15); BUN 12 mg/dL (7-18); BUN/Creat Ratio 15.8 RATIO (10-20); Calcium,Total 8.6 mg/dL (8.5-10.1); Chloride 112 mmol/L (98-107); Cholesterol 146 mg/dL (200); Creatinine, Serum 0.76 mg/dL (0.70-1.30); EST Glomerular Filtration Rate 107 mL/min (>60); Est Glom Filt Rate - Afr Amer 129 mL/min (>60); Ferritin 18 ng/mL (26-388); Globulin 3.7 g/dL (2.2-4.2); Glucose 91 mg/dL (74-106); High Density Lipoprotein 59 mg/dL; Iron 82 ug/dL (65-175); PSA,Total - Annual Screen 1.12 ng/mL (0.00-4.00); Potassium 3.5 mmol/L (3.5-5.1); Protein, Total 7.6 g/dL (6.4-8.2); Sodium Level 143 mmol/L (136-145); T4 Free Direct 1.01 ng/dL (0.76-1.46); Thyroid Stim Hormone (TSH) 3.24 uIU/mL (0.358-3.74); Triglycerides 73 mg/dL; Very Low Density Lipoprotein 15 mg/dL (5-40)
== END | disposition home or self-care (01) ==
LOC: LAB.FUTURE 09:20
PROVIDERS: Internal Medicine Endocrinology, Diabetes & Metabolism; Family Provider Family Medicine; PCP Family Medicine; Visit Provider Family Medicine
DX: R94.6 Abnormal results of thyroid function studies (principal); D50.9 Iron deficiency anemia, unspecified; E78.2 Mixed hyperlipidemia; N42.9 Disorder of prostate, unspecified; E55.9 Vitamin D deficiency, unspecified; R58 Hemorrhage, not elsewhere classified; E04.9 Nontoxic goiter, unspecified; E29.1 Testicular hypofunction
CPT/HCPCS: 36415; 80053; 80061; 82306; 82607; 82728; 83540; 84153; 84439; 84443; 85025; G0103

== ENCOUNTER → 2019-07-08 | Outpatient (CLI) | payer MEDICARE, OTHER, SELFPAY ==
[2019-03-10 13:22] VITALS: BMI 309.4
--- NOTE | 2019-07-08 07:57 | CT_ITS ---
HISTORY:SINUSITIS X YEARS SINUSITIS X YEARS EXAMINATION: CT Sinuses W/O Contrast TECHNIQUE: Helically acquired images were obtained of the paranasal sinuses. A radiation dose optimization technique was used for this scan. IV Contrast dosage and agent: None. COMPARISON: None FINDINGS: FRONTAL SINUSES AND RECESSES: Minimal mucosal thickening ETHMOID AIR CELLS: Mucosal thickening MAXILLARY SINUSES: There is almost complete opacification of the left maxillary sinus with mucosal thickening also seen within the right maxillary sinus OSTIOMEATAL COMPLEXES: Occluded SPHENOID SINUSES: Mucosal thickening SPHENOETHMOIDAL RECESSES: Occluded Ancillary findings: NASAL TURBINATES: Diffuse mucosal thickening NASAL SEPTUM: Slightly deviated to the right with spur ORBITS: Cataract surgery VISUALIZED DENTITION: Multiple teeth missing. Periapical lucency seen involving the left premolar maxillary ANTERIOR CRANIAL FOSSA: Unremarkable. CT/Sinus/Facial Bone IMPRESSION: Almost complete opacification left maxillary sinus with mucosal thickening in the right maxillary and almost complete opacification of the ethmoid sinuses. There is also minimal mucosal thickening in the frontal sinus as well as mucosal thickening in the sphenoid sinus as discussed Individualized dose optimization techniques were used for this CT. at 0010 Reported and signed by: Priscilla Hamm DO Electronically Signed: Priscilla Hamm DO at 0:09 EDT Tel , Service support ,
== END | disposition home or self-care (01) ==
LOC: CT 07:53
PROVIDERS: Family Provider Family Medicine; PCP Family Medicine; Referring Provider Otolaryngology; Visit Provider Otolaryngology
DX: J32.9 Chronic sinusitis, unspecified (principal)
CPT/HCPCS: 70486

== ENCOUNTER → 2019-08-04 | Outpatient (CLI) | payer MEDICARE, OTHER, SELFPAY ==
[2019-03-10 13:22] VITALS: BMI 309.4
[2019-08-04 12:17] LABS: Absolute Neutrophil Count 2.4 X10^3/uL (2.0-7.7); Basophil# 0.02 X10^3/uL; Basophil% 0.5 % (0-1); Eosinophil# 0.32 X10^3/uL; Eosinophils% 7.9 % (0-5); Hematocrit 41.5 % (40-54); Hemoglobin 13.5 g/dL (13.0-16.5); Lymphocyte % 22.1 % (19-41); Mean Corp Hgb Conc 32.5 g/dL (32-36); Mean Corpuscular Hgb 31.1 pg (27.0-32.0); Mean Corpuscular Volume 95.6 fL (80-94); Mean Platelet Vol. 10.4 fl (6.2-12.0); Monocyte# 0.47 X10^3/uL; Monocyte% 11.5 % (0-10); NRBC Flagged by Analyzer 0 % (0-5); Neutrophil # 2.35 X10^3/uL (2.7-7.7); Neutrophil % 57.8 % (47-70); Platelet Count 225 K/mm3 (150-450); RBC Distribution Width CV 14.5 % (11.6-14.6); RBC Distribution Width SD 50.5 fl (35.1-43.9); Red Blood Count 4.34 M/mm3 (4.6-6.2); White Blood Count 4.1 K/mm3 (4.4-11.0)
[2019-08-04 12:24] LABS: BUN 16 mg/dL (7-18); BUN/Creat Ratio 17.2 RATIO (10-20); Creatinine, Serum 0.93 mg/dL (0.70-1.30); EST Glomerular Filtration Rate 85 mL/min (>60); Est Glom Filt Rate - Afr Amer 102 mL/min (>60); Glucose 104 mg/dL (74-106); Protein, Total 7.9 g/dL (6.4-8.2)
[2019-08-04 12:25] LABS: AST(SGOT) 22 U/L (15-37); Alanine Aminotransfer ALT/SGPT 32 U/L (16-61); Alkaline Phosphatase 97 U/L (45-117); Anion Gap 5 (5-15); Calcium,Total 9.1 mg/dL (8.5-10.1); Chloride 109 mmol/L (98-107); Globulin 3.9 g/dL (2.2-4.2); Potassium 3.8 mmol/L (3.5-5.1); Sodium Level 143 mmol/L (136-145)
[2019-08-04 12:30] LABS: Vitamin D,25 Hydroxy 69.8 ng/mL (29.95-100.01)
== END | disposition home or self-care (01) ==
LOC: BFHLAB 08:28
PROVIDERS: Family Provider Family Medicine; PCP Family Medicine; Visit Provider Internal Medicine Endocrinology, Diabetes & Metabolism
DX: E55.9 Vitamin D deficiency, unspecified (principal); E29.1 Testicular hypofunction
CPT/HCPCS: 36415; 80053; 82306; 84403; 85025

== ENCOUNTER → 2019-08-19 | Outpatient (CLI) | payer MEDICARE, OTHER, SELFPAY ==
[2019-03-10 13:22] VITALS: BMI 309.4
--- NOTE | 2019-08-19 09:08 | EKG12_ITS ---
Test Reason : PRE-OP Blood Pressure : / mmHG Vent. Rate : 077 BPM Atrial Rate : 077 BPM P-R Int : 184 ms QRS Dur : 106 ms QT Int : 366 ms P-R-T Axes : 040 002 017 degrees QTc Int : 414 ms Normal sinus rhythm Cannot rule out Anteroseptal infarct , age undetermined Abnormal ECG Confirmed by BENITO SAMAYOA, EVA ([id number]), photography editor MADELAINE JONES ([id number]) on 08/22/2019 8:16:55 AM Referred By: Donavon Raymundo Confirmed By:EVA OLIVER MD
== END | disposition home or self-care (01) ==
LOC: LAB 08:53 → CVS 09:06
PROVIDERS: Family Provider Family Medicine; PCP Family Medicine; Referring Provider Otolaryngology; Visit Provider Otolaryngology
DX: Z01.818 Encounter for other preprocedural examination (principal)
CPT/HCPCS: 93005

== ENCOUNTER → 2019-08-24 | Outpatient (CLI) | payer MEDICARE, OTHER, SELFPAY ==
[2019-03-10 13:22] VITALS: BMI 309.4
--- NOTE | 2019-08-23 12:51 | ETH_PTH ---
PATIENT: EVA GONZALEZ LOC: [facility] U#:[id number] AGE/SX: 74/M ROOM: RE08/24/[address]: Dr. Juan Raymundo MD : 1945 BED: DIS: 08/24/2019 SPEC #: [id number] RECD: 08/24/19 15:27 STATUS: ALBERTO MICHAEL #: [id number] COLLEEN: 08/23/19 12:[address]: Juan Raymundo DEPT: SURGICAL PATHOLOGY RECD BY: Main Castillo ENTERED: 08/25/19 08:07 SP TYPE: ETH TISS OTHR DR: Dr. Peter Finney MD [facility] Tissues: A - Ethmoid sinus, NOS B - Ethmoid sinus, NOS Procedures: Decalcification bone/plaque Surgery Specimen Level IV HEADER OPERATION: Functional endoscopic sinus surgery, septoplasty PRE-OP DIAGNOSIS: Polyp of nasal cavity, chronic sinusitis TISSUE SUBMITTED: A - Right sinus contents, B - Left sinus contents MICROSCOPIC DIAGNOSIS A. Right sinus contents: Fragments of respiratory mucosa with chronic inflammation and bone. See comment. B. Left sinus contents: Fragments of respiratory mucosa with chronic inflammation and bone. See comment. ROBERT:mable 08/31/19 COMMENT A & B. A few of the fragments have polypoid appearance consistent with benign mucosal polyp. MICROSCOPIC DESCRIPTION Slides are reviewed. GROSS DESCRIPTION A - Received in fixative is one container labeled with the patient's name and designated right sinus contents. The specimen consists of multiple irregular fragments of light to dark casey soft gritty tissue that in aggregate measure 6 x 3 x 0.5 cm. Foxing Closer portions are submitted in two cassettes after decalcification. B - Received in fixative is one container labeled with the patient's name and designated left sinus contents. The specimen consists of multiple irregular fragments of light to dark casey soft gritty tissue that in aggregate measure 4.5 x 3.5 x 0.4 cm. Foxing Closer portions are submitted in two cassettes after decalcification. / AM:mable 08/25/19 TC:3 CPT: 14555 x2, 43465 x2
== END | disposition home or self-care (01) ==
LOC: LABSPEC 15:54
PROVIDERS: Family Provider Family Medicine; PCP Family Medicine; Referring Provider Otolaryngology; Visit Provider Otolaryngology
DX: J32.8 Other chronic sinusitis (principal); J33.9 Nasal polyp, unspecified
CPT/HCPCS: 88305; 88311

== ENCOUNTER → 2019-09-13 13:57 | Outpatient (CLI) | payer MEDICARE, OTHER, SELFPAY ==
[2019-03-10 13:22] VITALS: BMI 309.4
[2019-09-13 14:03] VITALS: BP 144/73; PULSE 83; RESP 18; TEMP 36.3; O2SAT 95; BMI 33.9
[2019-09-13] MEDS: DENOSUMAB 60 MG/ML ML SQ (14:11)
== END ==
PROVIDERS: Family Provider Family Medicine; PCP Family Medicine; Referring Provider Internal Medicine Endocrinology, Diabetes & Metabolism; Visit Provider Internal Medicine Endocrinology, Diabetes & Metabolism
DX: M81.0 Age-related osteoporosis without current pathological fracture (principal); Z87.310 Personal history of (healed) osteoporosis fracture
CPT/HCPCS: 96372; J0897

== ENCOUNTER 2019-10-21 12:43 | Emergency (ER) | payer MEDICARE, OTHER, SELFPAY ==
[2019-09-13 14:03] VITALS: BMI 33.9
[2019-10-21 12:44] VITALS: BP 151/80; PULSE 95; RESP 18; TEMP 36.6; O2SAT 98; BMI 33.9
[2019-10-21 13:11] VITALS: BP 146/59; PULSE 86; RESP 15; O2SAT 97
--- NOTE | 2019-10-21 13:53 | VDLE_ITS ---
Reason For Study: Swelling Procedure LEFT Exam performed portable in ED. GSV is normal. A preliminary report was called and/or faxed CFV is compressible, spontaneous, phasic, to Bebe. competent, and demonstrates normal augmentation. FV is compressible, spontaneous, phasic, competent and demonstrates normal augmentation. POP V is compressible, spontaneous, phasic, competent and demonstrates normal augmentation. T/P Trunk is compressible. PTV is compressible. LT PerV is compressible. Interpretation Summary There is no evidence of left lower extremity deep vein thrombosis. Left great saphenous vein appears patent and compressible segmentally. Ordering Physician: Blanquita Spence Referring Physician: Peter Finney Performed By: Delisa Pak RVT
--- NOTE | 2019-10-21 14:32 | ED.VIS.GEN ---
History of Present Illness Chief Complaint: Lower Extremity Injury Detail of Chief Complaint: Left leg swelling and erythema Informant: Patient Onset: Days Context: Gradual Onset Timing: Waxes and wanes Current Severity: Mild Maximum Severity: Moderate Narrative: Patient presents with erythema, warmth, swelling to the left lower extremity. He had a history of a DVT in that leg 20 years ago after a surgery. Patient states he is had multiple ultrasounds since that time with no evidence of DVT. He will occasionally get swelling and redness of his leg. This episode started a few days ago. states this morning his leg was swollen and red up to his knee. Symptoms are slightly improved at this time. Patient has chronic shortness of breath, not worse than baseline. He denies chest pain. - Past Medical History (1) DVT (deep venous thrombosis) Status: Chronic (2) Left femoral shaft fracture Status: Chronic (3) Asthma Status: Chronic (4) Celiac disease Status: Chronic (5) GERD (gastroesophageal reflux disease) Status: Chronic (6) Iron deficiency anemia Status: Chronic (7) Osteopenia Status: Chronic (8) Restless leg syndrome Status: Chronic Past Medical History - Allergies and Home Meds Allergies/Adverse Reactions: Allergies gluten Adverse Reaction (Verified 10/21/19 12:46) Other Primary Care Physician: Peter Finney MD [Primary Care Provider] - Prior records reviewed: Yes Surgical History: cataract, cholecystectomy, total hip arthroplasty, - - right arm surgery, hernia femur repair repair 2011 [facility] left hip replacment 2009 2004- femur repair [facility] after slipped Lives: Spouse/ Significant Other Smoking Status: Former smoker - Family History Maternal Family History: Reports: No pertinent history Paternal Family History: Reports: No pertinent history Review of Systems General: Denies: Chills, Fever Eyes: Denies: Visual changes - bilaterally ENT: Denies: Bilateral ear pain Cardiovascular: Denies: Chest pain Respiratory: Reports: Dyspnea - Chronic and unchanged from baseline. Denies: Cough Gastrointestinal: Denies: Abdominal pain, Nausea, Vomiting, Diarrhea Musculoskeletal: Reports: Swelling, Extremity Pain Skin: Denies: Wounds Neurological: Denies: Headache, Weakness, Parasthesia Hematologic: Denies: Easy bruising, Easy bleeding Allergy: Denies: Uticaria Physical Exam Vital Signs/Narrative: Vital Signs Temp Pulse Resp BP Pulse Ox 10/21/19 13:11 86 15 146/59 H 97 10/21/19 12:44 97.9 F 95 18 151/80 H 98 Inital Vital Signs reviewed: Yes General: Well nourished, Well developed Head: Normocephalic ENT: Moist mucous membranes Neck: Supple Cardiovascular: Regular rate, Regular rhythm Respiratory: No distress, CTA bilaterally Abdomen: Soft, Nontender, Nondistended Extremities: - - Erythema and warmth of the distal aspect of the left lower leg. No open wounds are noted. Strong distal pulses are noted. Neurological: Alert, Oriented x3, Normal Strength, Normal Sensation Psychological: Normal affect Diagnostic/Tx/Re-eval Venous ultrasound reveals no evidence of DVT. - Medical Decision Making Venous ultrasound is unremarkable. I am concerned the patient is developing cellulitis and that he does have erythema and warmth. He will be covered with Keflex and Bactrim, first doses given here. ED Disposition - Plan for ED Patient: Disposition: Home or Assisted Living Diagnosis: Cellulitis Instructions: Cellulitis Prescriptions: Smz/Tmp Ds [Bactrim Ds] 1 tablet PO BID #20 tablet Cephalexin [Keflex] 500 mg PO Q6 #40 capsule Referrals: Peter Finney MD [Primary Care Provider] - 1 Week if not improving
[2019-10-21 14:41] VITALS: BP 156/60; PULSE 79; RESP 16; O2SAT 96
== END 2019-10-21 14:42 | disposition home or self-care (01) ==
PROVIDERS: Emergency Provider Emergency Medicine; Family Provider Family Medicine; PCP Family Medicine
DX: L03.116 Cellulitis of left lower limb (principal); J45.909 Unspecified asthma, uncomplicated; K21.9 Gastro-esophageal reflux disease without esophagitis; D50.9 Iron deficiency anemia, unspecified; Z86.718 Personal history of other venous thrombosis and embolism; Z79.51 Long term (current) use of inhaled steroids; Z79.899 Other long term (current) drug therapy; Z87.891 Personal history of nicotine dependence
CPT/HCPCS: 93971; 99282

== ENCOUNTER → 2019-12-05 | Outpatient (CLI) | payer MEDICARE, OTHER, SELFPAY ==
[2019-12-05 12:41] LABS: Absolute Lymphocyte Count 0.74 X10^3/uL (0.83-4.51); Absolute Neutrophil Count 1.8 X10^3/uL (2.0-7.7); Basophil# 0.04 X10^3/uL; Basophil% 1.2 % (0-1); Eosinophil# 0.34 X10^3/uL; Eosinophils% 9.8 % (0-5); Hemoglobin 12.9 g/dL (13.0-16.5); Lymphocyte # 0.74 X10^3/ul (4.0); Lymphocyte % 21.3 % (19-41); Mean Corp Hgb Conc 32.3 g/dL (32-36); Mean Corpuscular Hgb 30.9 pg (27.0-32.0); Mean Corpuscular Volume 95.9 fL (80-94); Mean Platelet Vol. 10.5 fl (6.2-12.0); Monocyte# 0.53 X10^3/uL; Monocyte% 15.3 % (0-10); NRBC Flagged by Analyzer 0 % (0-5); Neutrophil # 1.81 X10^3/uL (2.7-7.7); Neutrophil % 52.1 % (47-70); Platelet Count 247 K/mm3 (150-450); RBC Distribution Width CV 13.9 % (11.6-14.6); RBC Distribution Width SD 48.9 fl (35.1-43.9); Red Blood Count 4.17 M/mm3 (4.6-6.2); White Blood Count 3.5 K/mm3 (4.4-11.0)
[2019-12-05 13:05] LABS: Erythrocyte Sedimentation Rate 40 mm/hr (0-20)
[2019-12-05 13:12] LABS: CRP 4.94 mg/L (0.0-3.0)
[2019-12-09 03:06] LABS: Alternaria tenuis <0.10 kU/L (Class 0); Ash, White <0.10 kU/L (Class 0); Aspergillus fumigatus 1.34 kU/L (Class II); Bermuda Grass <0.10 kU/L (Class 0); Birch <0.10 kU/L (Class 0); Black Walnut <0.10 kU/L (Class 0); Cat Hair / Dander,Stand <0.10 kU/L (Class 0); Cedar, Mountain <0.10 kU/L (Class 0); Cladosporium herbarum <0.10 kU/L (Class 0); Cockroach, American <0.10 kU/L (Class 0); Cottonwood <0.10 kU/L (Class 0); D farinae Mite <0.10 kU/L (Class 0); D pteronyssinus <0.10 kU/L (Class 0); Dog Epithelia <0.10 kU/L (Class 0); Elm, American White <0.10 kU/L (Class 0); Immunoglobulin E 276 IU/mL (6-495); Maple/Box Elder <0.10 kU/L (Class 0); Mulberry, White <0.10 kU/L (Class 0); Oak, White <0.10 kU/L (Class 0); Pecan <0.10 kU/L (Class 0); Penicillium Notatum 0.32 kU/L (Class I); Pigweed, Rough <0.10 kU/L (Class 0); Ragweed, Short/Common <0.10 kU/L (Class 0); Russian Thistle <0.10 kU/L (Class 0); Sheep Sorrel <0.10 kU/L (Class 0); Sycamore, American <0.10 kU/L (Class 0); Timothy Grass <0.10 kU/L (Class 0)
[2019-12-09 11:59] LABS: Mouse Urine <0.10 kU/L (Class 0)
[2019-12-10 03:07] LABS: Aspirgillus flavus Negative (Neg:<1:1); Aspirgillus fumigatus Negative (Neg:<1:1); Aspirgillus niger Negative (Neg:<1:1)
[2019-12-10 10:14] LABS: Immunoglobulin E 230 IU/mL (6-495)
== END | disposition home or self-care (01) ==
LOC: BFHLAB 10:54 → PAVLAB 14:42
PROVIDERS: PCP Family Medicine; Referring Provider Internal Medicine Critical Care Medicine; Visit Provider Family Medicine
DX: L03.119 Cellulitis of unspecified part of limb (principal); J45.909 Unspecified asthma, uncomplicated
CPT/HCPCS: 36415; 82785; 85025; 85652; 86003; 86140; 86606

== ENCOUNTER → 2019-12-16 | Outpatient (CLI) | payer MEDICARE, OTHER, SELFPAY ==
[2019-12-16 09:00] VITALS: PULSE 100; PULSE 103; PULSE 104; PULSE 105; PULSE 106; PULSE 91; PULSE 99; O2SAT 94; O2SAT 95; O2SAT 96; O2SAT 98; O2SAT 99
--- NOTE | 2019-12-17 09:56 | PCM.PSN.6M ---
PSN 6 Minute Walk Test - 6 Minute Walk Test 6 Minute Walk Test: 6 Minute Walk Test PSN:6-Minute Walk Test Start: 12/16/19 09:10 Freq: Status: Active Protocol: [id number].6MINW Document 12/16/19 09:00 (Rec: 12/16/19 09:13 [id number]) 6 Minute Walk Test Date Performed 12/16/19 Time Performed 09:00 Height 6 ft Weight: 250 lb Weight in Pounds 250.[address]: Dr. Mcgee FIO2 (% Oxygen) 21 Assistive device used: None Pre-test Oxygen Delivery Method Room Air Pulse Ox (%) 98 Pulse Rate (60-100 beats/min) 91 Dyspnea Enedina Scale (0-10) 0 Exertion Enedina Scale (6-20) 6 1st minute Oxygen Delivery Method Room Air Pulse Ox (%) 98 Pulse Rate (60-100 beats/min) 99 2nd minute Oxygen Delivery Method Room Air Pulse Ox (%) 94 Pulse Rate (60-100 beats/min) 100 3rd minute Oxygen Delivery Method Room Air Pulse Ox (%) 96 Pulse Rate (60-100 beats/min) 103 H 4th minute Oxygen Delivery Method Room Air Pulse Ox (%) 95 Pulse Rate (60-100 beats/min) 104 H 5th minute Oxygen Delivery Method Room Air Pulse Ox (%) 95 Pulse Rate (60-100 beats/min) 106 H 6th minute Oxygen Delivery Method Room Air Pulse Ox (%) 96 Pulse Rate (60-100 beats/min) 105 H Post-test Oxygen Delivery Method Room Air Pulse Ox (%) 99 Pulse Rate (60-100 beats/min) 99 Dyspnea Enedina Scale (0-10) 2 Exertion Enedina Scale (6-20) 11 Full Laps Walked 19 Partial Lap, Number of Tiles Walked 0 Total Distance Walked (ft) 1121 - Interpretation Interpretation: The patient ambulated 1121 feet over the course of 6 minutes beginning on room air without assistive devices or breaks. Pretesting oxygen saturation was noted to be 98% on room air. With ambulation, the jenise oxygen saturation was 94%. There was no significant exertional oxygen desaturation. - Recommendations Recommendations: There is no indication for the use of supplemental oxygen at this time.
== END | disposition home or self-care (01) ==
LOC: PSN 08:45
PROVIDERS: PCP Family Medicine; Referring Provider Internal Medicine Critical Care Medicine; Visit Provider Internal Medicine Critical Care Medicine
DX: J45.909 Unspecified asthma, uncomplicated (principal)
CPT/HCPCS: 94618

== ENCOUNTER → 2019-12-19 | Outpatient (CLI) | payer MEDICARE, OTHER, SELFPAY ==
--- NOTE | 2019-12-19 15:06 | PFTCOMP_ITS ---
COMPLETE PULMONARY FUNCTION TEST INTERPRETATION Brief HPI: Patient is a 74 year old male, currently under the care of Dr. Mcgee, who presents to [facility] for complete pulmonary function tests secondary to diagnosis of asthma. Respiratory therapist reports good effort and reproducible results. Interpretation: Forced expiration spirometry shows a moderate large airways obstructive ventilatory defect with an FEV1 of 63% predicted. There is no significant bronchodilator response by strict ATS criteria. Spirograms are of good quality and plateau slowly, indicating slowly emptying areas of the lungs. The respiratory flow volume loop shows decreased expiratory flow rates at all lung volumes consistent with airway obstruction. Lung volumes by body plethysmography show a normal total lung capacity at 6.23 L, 90% predicted. All other lung volumes are within normal limits. Diffusion capacity by carbon monoxide is normal at 75% predicted. The airway resistance is elevated. No previous pulmonary function tests were available for review. Impression: Irreversible moderate large airways obstructive ventilatory defect with relatively preserved diffusion capacity.
== END | disposition home or self-care (01) ==
LOC: PSN 07:44
PROVIDERS: PCP Family Medicine; Referring Provider Internal Medicine Critical Care Medicine; Visit Provider Internal Medicine Critical Care Medicine
DX: J45.909 Unspecified asthma, uncomplicated (principal)
CPT/HCPCS: 94060; 94726; 94729

== ENCOUNTER → 2020-03-15 | Outpatient (CLI) | payer MEDICARE, OTHER, SELFPAY ==
[2020-02-21 10:29] VITALS: BMI 33.9
[2020-03-15 14:06] VITALS: BP 132/71; PULSE 82; RESP 16; TEMP 36.7; O2SAT 97; BMI 29.0
[2020-03-15] MEDS: DENOSUMAB 60 MG/ML SQ (14:13)
== END | disposition home or self-care (01) ==
LOC: MEDOUTP 13:58
PROVIDERS: PCP Family Medicine; Referring Provider Internal Medicine Endocrinology, Diabetes & Metabolism; Visit Provider Internal Medicine Endocrinology, Diabetes & Metabolism
DX: M81.0 Age-related osteoporosis without current pathological fracture (principal); Z87.310 Personal history of (healed) osteoporosis fracture
CPT/HCPCS: 96372; J0897

== ENCOUNTER 2020-04-26 19:46 | Emergency (ER) | payer MEDICARE, OTHER, SELFPAY ==
[2020-03-15 14:06] VITALS: BMI 29.0
[2020-04-26 19:47] VITALS: BP 141/88; PULSE 87; RESP 16; TEMP 37.2; O2SAT 95; BMI 33.4
--- NOTE | 2020-04-26 20:24 | RAD_ITS ---
STUDY: X-RAY STERNUM REASON FOR EXAM: Male, 75 years old. FALL TECHNIQUE: 3 view(s) of the sternum were obtained. COMPARISON: None. FINDINGS: Normal bilateral sternoclavicular articulations. Normal manubrium. Normal sternomanubrial joint. Normal sternal body and xiphoid process. There is no demonstrated fracture of the sternum. Normal visualized anterior ribs. Normal visualized lungs. The soft tissue structures are unremarkable. RAD/Sternum min 2 Views IMPRESSION: Normal x-ray examination of the sternum. Electronically Signed: Jose Mcbride MD at 22:14 EDT , Service support ,
--- NOTE | 2020-04-26 20:24 | CT_ITS ---
STUDY: CT BRAIN WITHOUT CONTRAST REASON FOR EXAM: Male, 75 years old. FELL WHILE WALKING, RADIATION DOSAGE (If Supplied By Facility): CTDIvol = ( 44.99 ) mGy, DLP = ( 914.22 ) mGycm TECHNIQUE: Transaxial CT imaging of the brain was performed without administration of intravenous contrast material. Individualized dose optimization techniques were used for this CT. COMPARISON: No relevant priors. FINDINGS: Soft tissue swelling over the forehead. Normal calvarium. There is mild cerebral atrophy with widening of the extra-axial spaces and ventricular dilatation. There are areas of decreased attenuation within the white matter tracts of the supratentorial brain, consistent with microvascular disease changes. Normal basal ganglia and thalami. Normal brainstem. Normal cerebellum. There is no intracranial hemorrhage. There are no findings of an acute ischemic infarction. There is mucoperiosteal inflammatory disease of the paranasal sinuses consistent with moderate chronic sinusitis. CT/Brain/Head without Contrast IMPRESSION: Chronic involutional changes of the brain. No acute intracranial abnormalities. Electronically Signed: Jose Mcbride MD at 21:53 EDT , Service support ,
--- NOTE | 2020-04-26 20:24 | CT_ITS ---
STUDY: CT CERVICAL SPINE WITHOUT CONTRAST REASON FOR EXAM: Male, 75 years old. FELL WHILE WALKING, LAC TO HEAD, C/O MARTIN, HX C-SPINE SX WITH METAL RADIATION DOSAGE (If Supplied By Facility): CTDIvol = ( 21.92 ) mGy, DLP = ( 472.20 ) mGycm TECHNIQUE: High resolution transaxial imaging was performed without contrast material. Sagittal and coronal images were reconstructed. Individualized dose optimization techniques were used for this CT. COMPARISON: None FINDINGS: No definite acute fracture/dislocation. The cervical junction is intact. C1-C2 articulation is intact. Curvature is within normal limits. There is normal alignment. Facet joints are intact at all levels bilaterally. No jumped facets. There is multilevel spondyloarthropathy. Long segment extensive posterior decompression and bilateral facet joint effusions with facet joint screws from C3-C7. No gross postsurgical complication, but there appears to be loosening of the screws bilaterally at C7. Multilevel degenerative disc disease seen. Multilevel loss of disc height. Multilevel posterior marginal osteophytes and disc bulges. Multilevel neural foraminal narrowing. Visualized paraspinal soft tissues and structures are unremarkable. CT/Spine Cervical without Contras IMPRESSION: There is no definite acute fracture/dislocation. Degenerative and postoperative changes. Electronically Signed: Jose Mcbride MD at 21:57 EDT , Service support ,
--- NOTE | 2020-04-26 20:31 | ED.VISSUMM ---
- ER Visit Summary Date of Service: 04/26/20 Chief Complaint: Fell on a sidewalk striking his head causing a laceration. Denies any LOC. No blood thinners. Also complaining of sternal pain after the fall. History of Present Illness: The patient is a 75 M history of asthma and retinopathy. 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 Denies LOC. Denies blood thinners. Denies substantial neck pain has had prior neck surgery. Multilevel fusion. Complaining of a headache. Also pain over the sternum after the fall. And left knee pain. Prior to the fall said he felt fine. Physical Examination: Older male no acute distress vital signs stable afebrile. H EENT exam dry reactive light. He has mild bruising to his nose but is not substantially tender. There is no bleeding from his nose. He has a 5 cm laceration is horizontal midportion of his forehead. That will need to be repaired. Pupils round reactive light. Neck nontender. Trachea midline. Lungs clear to auscultation. Heart regular rhythm. Chest wall sternal tenderness. No subcu air crepitus. Abdomen soft nontender normal bowel sounds no peritoneal signs. Pelvic girdle intact. Upper extremities nontender normal range of motion normal sponge hooker strength. No deformity. Right lower leg nontender. Left knee tender. Mild bruise. However he has normal range of motion. Dorsi plantarflexion intact. Neurologically is awake alert with no focal motor deficits. GCS of 15. Test Results: CAT scan of his brain without contrast read by the radiologist and reviewed by me shows no skull fracture no acute intracranial bleed. CT of the C-spine shows chronic changes and prior surgery but no acute fracture read by the radiologist reviewed by me. Chest x-ray with sternal views shows chronic changes no acute sternal or rib fracture seen. No pneumothorax. Left knee x-ray multiple views read by myself shows prior orthopedic surgery and hardware but no acute fracture. Emergency Department Course and Treatment: Patient will need a laceration of his forehead repaired. Tetanus will be updated. Treated with Tylenol for pain. Forehead laceration repair 6 cm. Number and a simple directed 5-0 Ethilon suture. Proper hemostasis wound closure obtained. There is no step-off of the forehead. Muscle was intact. Patient tolerated procedure well. Repeat exam is doing well. He did ambulate to the bathroom without assistance. I went over all films with both he and his . They are comfortable with him being discharged home. Return if any problems. We did discuss the possibility of a delayed intracranial bleed. Treatment Plan: Ice all sore areas. Tylenol for pain. Suture removal 7 to 10 days. Wound care. Return if decreased mental status, severe headache or intractable vomiting. Disposition: Discharge Impression: Acute fall Close head injury Forehead laceration of 6 cm with ER repair Left knee contusion Acute chest wall and sternal contusion This note was generated with Related Content Database (RCDb)ation software. It may contain incorrect words, spelling, and punctuation that were not noted in review of the chart prior to signing ED Disposition - Plan for ED Patient: Disposition: Home or Assisted Living Instructions: ED CHEST CONTUSION, ED Head Injury Adult, ED Laceration Facial Sutr Tape Referrals: Peter Finney MD [Primary Care Provider] - 10 Day for suture removal Additional Instructions: Tylenol for pain. Ice all sore areas specifically your forehead, sternum and chest wall and left knee. Suture removal in 10 days. Return if severe headache, intractable vomiting or not acting right. However the CAT scan of your head and neck were unremarkable tonight.
[2020-04-26] MEDS: Acetaminophen 500 MG Tablet 1000 MG PO (20:51)
[2020-04-26] MEDS: Diphth,Pertuss(Acell),Tet Vac 0.5 ML Vial IM (20:52)
[2020-04-26] MEDS: Lidocaine/Epi/Tetracaine 50 ML 1 APPLIC TOPICAL (20:59)
--- NOTE | 2020-04-26 21:40 | RAD_ITS ---
STUDY: X-RAY CHEST REASON FOR EXAM: Male, 75 years old. FALL TECHNIQUE: Frontal and lateral views of the chest. COMPARISON: 07/12/1970. FINDINGS: There is hyperinflation of the lungs consistent with chronic obstructive lung disease (COPD). No infiltrates or effusions. Calcified granuloma in the mid left lung. There is no demonstrated pleural abnormality. Normal size heart. Normal mediastinum and momo. Normal visualized pulmonary arteries. Normal visualized aortic arch and descending thoracic aorta. There are diffuse degenerative changes of the visualized thoracic spine. There is degenerative osteoarthritis of the bilateral shoulders. There is no demonstrated abnormality of the visualized soft tissue structures of the upper abdomen. RAD/Chest PA and Lateral IMPRESSION: No acute chest disease. Electronically Signed: Jose Mcbride MD at 22:43 EDT , Service support ,
--- NOTE | 2020-04-26 21:40 | RAD_ITS ---
STUDY: X-RAY - LEFT KNEE REASON FOR EXAM: Male, 75 years old. FALL TECHNIQUE: 4 view(s) of the knee. COMPARISON: None. FINDINGS: No acute fractures or dislocations are seen. Compression plate and screws across the lateral aspect of the distal femur metaphysis are seen without surgical complication, fixating distal femoral shaft fracture into near anatomic alignment and position.. Normal medial femorotibial compartment. Normal lateral femorotibial compartment. Normal patellofemoral articulation. There is no demonstrated joint effusion. The soft tissue structures are unremarkable. RAD/Knee 4 or More Views IMPRESSION: No acute fracture or dislocation. Electronically Signed: Jose Mcbride MD at 22:15 EDT , Service support ,
--- NOTE | 2020-04-26 22:24 | ED.DEP ---
ED Disposition - Plan for ED Patient: Disposition: Home or Assisted Living Instructions: ED Head Injury Adult, ED Laceration Facial Sutr Tape, ED CHEST CONTUSION Referrals: Peter Finney MD [Primary Care Provider] - 10 Day for suture removal Additional Instructions: Tylenol for pain. Ice all sore areas specifically your forehead, sternum and chest wall and left knee. Suture removal in 10 days. Return if severe headache, intractable vomiting or not acting right. However the CAT scan of your head and neck were unremarkable tonight.
[2020-04-26 22:32] VITALS: BP 135/71; PULSE 76; RESP 18; O2SAT 98
== END 2020-04-26 22:37 | disposition home or self-care (01) ==
PROVIDERS: Emergency Provider Emergency Medicine; PCP Family Medicine
DX: S01.81XA Laceration without foreign body of other part of head, initial encounter (principal); S80.02XA Contusion of left knee, initial encounter; S20.219A Contusion of unspecified front wall of thorax, initial encounter; Z23 Encounter for immunization; Z87.891 Personal history of nicotine dependence; J45.909 Unspecified asthma, uncomplicated; Z79.51 Long term (current) use of inhaled steroids; W01.0XXA Fall on same level from slipping, tripping and stumbling without subsequent striking against object, initial encounter; Y93.01 Activity, walking, marching and hiking; Y92.480 Sidewalk as the place of occurrence of the external cause; Y99.8 Other external cause status
CPT/HCPCS: 12014; 70450; 71046; 71120; 72125; 73564; 90715; 99285

== ENCOUNTER → 2020-05-01 | Outpatient (CLI) | payer MEDICARE, OTHER, SELFPAY ==
[2020-05-01 07:08] VITALS: BMI 33.0
[2020-05-02 16:08] LABS: Cytoplasmic Ab (C-ANCA) <1:20 titer (Neg:<1:20)
[2020-05-03 01:52] LABS: Perinuclear Ab (P-ANCA) <1:20 titer (Neg:<1:20)
== END | disposition home or self-care (01) ==
LOC: PAVLAB 11:31
PROVIDERS: PCP Family Medicine; Referring Provider Internal Medicine Critical Care Medicine; Visit Provider Internal Medicine Critical Care Medicine
DX: J45.909 Unspecified asthma, uncomplicated (principal)
CPT/HCPCS: 36415; 86256

== ENCOUNTER → 2020-05-11 | Outpatient (CLI) | payer MEDICARE, OTHER, SELFPAY ==
[2020-05-01 07:08] VITALS: BMI 33.0
== END | disposition home or self-care (01) ==
LOC: LABSPEC 17:33
PROVIDERS: PCP Family Medicine; Referring Provider Family Medicine; Visit Provider Family Medicine
DX: U07.1 COVID-19 (principal)
CPT/HCPCS: 87635; 94799; U0003

== ENCOUNTER → 2020-08-09 | Outpatient (CLI) ==
[2020-05-01 07:08] VITALS: BMI 33.0
--- NOTE | 2020-08-09 08:40 | RAD_ITS ---
STUDY: X-RAY - ESOPHAGUS (BARIUM SWALLOW) STUDY: X-RAY - ESOPHAGUS (BARIUM SWALLOW) WITH FLUOROSCOPY REASON FOR EXAM: Male, 75 years old. DYSPHAGIA, CHOKING, FOOD GETS STUCK IN THROAT-ABLE TO COUGH IT UP OR DRINK LIQUIDS TO GET IT DOWN -- UNSURE HOW LONG IT''S BEEN GOING ON TECHNIQUE: 20 view(s) of the esophagus were obtained following swallowing of barium. FLUOROSCOPY TIME (if supplied): (0:32) minutes/seconds COMPARISON: None. FINDINGS: There is no demonstrated esophageal foreign body. There is no demonstrated stricture or mucosal abnormality. There is a small hiatal hernia of the fundus of the stomach. The patient ingested a 12 mm tablet of barium without any difficulty. There is atherosclerotic tortuosity of the aortic arch and descending thoracic aorta. Normal visualized pulmonary parenchyma. There are diffuse degenerative changes of the visualized thoracic spine. RAD/Esophagus Dual Contrast IMPRESSION: Small sliding hiatal hernia without gastroesophageal reflux. Electronically Signed: Quan Peterson, at 9:42 EDT , Service support ,
== END | disposition home or self-care (01) ==
LOC: RAD 08:33
PROVIDERS: PCP Family Medicine; Referring Provider Otolaryngology; Visit Provider Otolaryngology
DX: R13.10 Dysphagia, unspecified (principal)
CPT/HCPCS: 74221

== ENCOUNTER → 2020-08-13 | Outpatient (CLI) | payer MEDICARE, OTHER, SELFPAY ==
[2020-05-01 07:08] VITALS: BMI 33.0
[2020-08-13 17:40] LABS: Absolute Lymphocyte Count 0.77 X10^3/uL (0.83-4.51); Absolute Neutrophil Count 2.4 X10^3/uL (2.0-7.7); Basophil# 0.03 X10^3/uL; Basophil% 0.8 % (0-1); Eosinophil# 0.29 X10^3/uL; Eosinophils% 7.5 % (0-5); Hematocrit 42.5 % (40-54); Hemoglobin 13.3 g/dL (13.0-16.5); Lymphocyte # 0.77 X10^3/ul (4.0); Lymphocyte % 19.9 % (19-41); Mean Corp Hgb Conc 31.3 g/dL (32-36); Mean Corpuscular Hgb 30.2 pg (27.0-32.0); Mean Corpuscular Volume 96.6 fL (80-94); Mean Platelet Vol. 10.6 fl (6.2-12.0); Monocyte# 0.38 X10^3/uL; Monocyte% 9.8 % (0-10); NRBC Flagged by Analyzer 0 % (0-5); Neutrophil # 2.38 X10^3/uL (2.7-7.7); Neutrophil % 61.7 % (47-70); Platelet Count 244 K/mm3 (150-450); RBC Distribution Width CV 14.6 % (11.6-14.6); RBC Distribution Width SD 52.6 fl (35.1-43.9); White Blood Count 3.9 K/mm3 (4.4-11.0)
[2020-08-13 19:38] LABS: ALB/GLOB Ratio 0.9 RATIO (0.9-2.4); AST(SGOT) 49 U/L (15-37); Alanine Aminotransfer ALT/SGPT 38 U/L (16-61); Albumin, Serum 4.1 g/dL (3.2-5.0); Alkaline Phosphatase 117 U/L (45-117); Anion Gap 8 (5-15); BUN 15 mg/dL (7-18); BUN/Creat Ratio 18.5 RATIO (10-20); Chloride 109 mmol/L (98-107); Cholesterol 153 mg/dL (200); Creatinine, Serum 0.81 mg/dL (0.70-1.30); EST Glomerular Filtration Rate 99 mL/min (>60); Est Glom Filt Rate - Afr Amer 119 mL/min (>60); Globulin 4.5 g/dL (2.2-4.2); Glucose 82 mg/dL (74-106); High Density Lipoprotein 68 mg/dL; LDH 221 U/L (87-241); PSA,Total - Annual Screen 1.26 ng/mL (0.00-4.00); Potassium 3.8 mmol/L (3.5-5.1); Protein, Total 8.6 g/dL (6.4-8.2); Sodium Level 142 mmol/L (136-145); T4 Free Direct 1.05 ng/dL (0.76-1.46); Thyroid Stim Hormone (TSH) 3.66 uIU/mL (0.358-3.74); Triglycerides 78 mg/dL; Very Low Density Lipoprotein 16 mg/dL (5-40)
[2020-08-14 09:43] LABS: Vitamin B12 603 pg/mL (211-911); Vitamin D,25 Hydroxy 42.2 ng/mL
== END | disposition home or self-care (01) ==
LOC: BFHLAB 15:14
PROVIDERS: PCP Family Medicine; Visit Provider Family Medicine
DX: E78.5 Hyperlipidemia, unspecified (principal); E55.9 Vitamin D deficiency, unspecified; R53.83 Other fatigue; R63.4 Abnormal weight loss; R79.89 Other specified abnormal findings of blood chemistry; Z12.5 Encounter for screening for malignant neoplasm of prostate
CPT/HCPCS: 36415; 80053; 80061; 82306; 82607; 83615; 84153; 84439; 84443; 85025; G0103

== ENCOUNTER → 2020-09-17 15:02 | Outpatient (CLI) | payer MEDICARE, OTHER, SELFPAY ==
[2020-02-21 10:29] VITALS: BMI 33.9
[2020-08-20 14:44] VITALS: BMI 33.0
[2020-09-17 15:15] VITALS: BP 126/67; PULSE 88; RESP 16; TEMP 37.1; O2SAT 98; BMI 33.0
[2020-09-17] MEDS: DENOSUMAB 60 MG/ML SQ (15:15)
== END ==
PROVIDERS: PCP Family Medicine; Referring Provider Internal Medicine Endocrinology, Diabetes & Metabolism; Visit Provider Internal Medicine Endocrinology, Diabetes & Metabolism
DX: M81.8 Other osteoporosis without current pathological fracture (principal); R42 Dizziness and giddiness
CPT/HCPCS: 96372; 97110; J0897

== ENCOUNTER 2020-09-24 06:21 | Day surgery (SDC) | payer MEDICARE, OTHER, SELFPAY ==
[2020-08-20 14:44] VITALS: BMI 33.0
[2020-09-17 15:15] VITALS: BMI 33.0
--- NOTE | 2020-09-24 | GASB_PTH ---
PATIENT: EVA GONZALEZ LOC: [facility] U#:[id number] AGE/SX: 75/M ROOM: RE09/24/[address]: Dr. Maxx Lozada MD : 1945 BED: DIS: 09/24/2020 SPEC #: [id number] RECD: 09/24/20 12:29 STATUS: ALBERTO MICHAEL #: [id number] COLLEEN: 09/24/20 00:[address]: Maxx Lozada DEPT: SURGICAL PATHOLOGY RECD BY: Myron Dale ENTERED: 09/24/20 12:29 SP TYPE: Gastric Bx OTHR DR: Dr. Peter Finney MD Tissues: A - Gastric mucous membrane B - Esophagus, NOS Procedures: Surgery Specimen Level IV HEADER OPERATION: Colonoscopy, EGD ([facility] [place]) PRE-OP DIAGNOSIS: Esophageal dysphagia, hiatal hernia, GERD, esophagitis, screening TISSUE SUBMITTED: A - Antrum biopsy for H. pylori and path, B - Distal esophagus biopsy MICROSCOPIC DIAGNOSIS A. Gastric antrum, biopsy: Mild chronic inflammation. B. Distal esophagus, biopsy: Focal changes of reflux. AM:mable 09/25/20 COMMENT A. The results of immunohistochemistry for Helicobacter pylori will be reported separately ([id number]). MICROSCOPIC DESCRIPTION Slides are reviewed. GROSS DESCRIPTION A - Received in fixative is one container labeled with the patient's name and designated antrum biopsy. The specimen consists of one irregular fragment of light casey soft tissue that measures 0.6 x 0.2 x 0.1 cm. The specimen is totally submitted in one cassette. B - Received in fixative is one container labeled with the patient's name and designated distal esophagus biopsy. The specimen consists of multiple irregular fragments of light casey soft tissue that in aggregate measure 1 x 0.5 x <0.1 cm. The specimen is totally submitted in one cassette. / AM:mable 09/24/20 TC:3 CPT: 62367 x2
--- NOTE | 2020-09-24 06:00 | HP_ITS ---
Intake Vital Signs 08/20/20 Height 6 ft 08/20/20 Weight: 244 lb 08/20/20 BP 146/83 H 08/20/20 Blood Pressure Location Rt brachial 08/20/20 Position Sitting 08/20/20 Respiration 18 08/20/20 Pulse 72 08/20/20 Pulse Source Monitor 08/20/20 Pulse Oximetry (%) 97 08/20/20 Oxygen Delivery Method room air Intake Visit Reasons: CSCOPE/ EGD Chief Complaint: c-scope/EGD consult Tenant Selector Required: No Accompanied by: Is patient in pain?: No Allergies gluten Adverse Reaction (Verified 08/20/20 14:45) Other Medications Clonazepam 1.5 mg PO QHS 04/03/14 [History Confirmed 08/20/20] Pantoprazole Sodium [Protonix] 40 mg PO QHS 04/03/14 [History Confirmed 08/20/20] Pramipexole Di-HCl [Pramipexole Dihydrochloride] 1 tab PO QHS 04/03/14 [History Confirmed 08/20/20] Fluticasone 0.05% [Flonase Nasal [place]] 2 spray NASAL BID PRN 04/25/15 [History Confirmed 08/20/20] Tamsulosin HCl [Flomax] 0.4 mg PO QHS 07/12/17 [History Confirmed 08/20/20] Ibuprofen 200 mg PO BID PRN 09/10/18 [History Confirmed 08/20/20] Ergocalciferol [Vitamin D] 50,000 unit PO Q7D 10/21/19 [History Confirmed 08/20/20] clonazepam 0.5 mg disintegrating tablet 0.5 mg PO DAILY 12/05/19 [History Confirmed 08/20/20] montelukast 10 mg tablet 10 mg PO DAILY #30 tab 05/01/20 [Rx Confirmed 08/20/20] budesonide-formoterol HFA 160 mcg-4.5 mcg/actuation aerosol inhaler 2 puff INHALATION BID #1 ea 08/20/20 [Rx Confirmed 08/20/20] prednisone 20 mg tablet 40 mg PO DAILY 5 Days #10 tab 08/20/20 [Rx Confirmed 08/20/20] tiotropium bromide 1.25 mcg/actuation mist for inhalation 2 puff INHALATION DAILY #4 g 11/02/20 [Rx Confirmed 08/20/20] [facility] Medical History Left femoral shaft fracture (Chronic) Osteopenia (Chronic) 2012 femur fracture [facility] (Chronic) DVT (deep venous thrombosis) (Chronic) Restless leg syndrome (Chronic) Iron deficiency anemia (Chronic) GERD (gastroesophageal reflux disease) (Chronic) Celiac disease (Chronic) Asthma (Chronic) Fatigue (Acute) History of back problems (Acute) Lab test positive for detection of COVID-19 virus (Acute ~04/2020) Weight loss (Acute) Surgical History History of cholecystectomy (Acute) History of hernia repair (Acute) History of repair of hip fracture (Acute) History of spinal surgery (Acute) colonoscopy (Acute) Family History Father prostate cancer Social History (Updated 08/21/20 @ 09:[address] Maxx Lozada MD) Smoking Status: Former smoker alcohol intake: never substance use type: does not use HPI HPI Surgical H&P: Yes HPI: EVA GONZALEZ, is a 75 M who presents to the office today For evaluation for endoscopy. Patient has had some dysphagia-like symptoms actually had a Barium swallow study done on 08/09/2020. This showed a small sliding hiatal hernia without gastroesophageal reflux disease. Patient states that foods have been getting stuck in his throat unsure of exactly how long the symptoms have been going on. Back in 2014 the patient had a EGD performed which showed reactive squamous mucosa at the distal esophagus no evidence of dysplasia or malignancy. Patient had a colonoscopy 10 years ago and is due for his screening colonoscopy now. Patient did have Covid this past May. ROS General General: Yes weight change and fatigue; no appetite, colon cancer, breast cancer or weakness HEENT HEENT: No difficulty swallowing, eye injury, eye surgery, swollen glands or hoarseness Endo Endocrine: No thyroid disease, diabetes mellitus, thyroid cancer, Hair loss, heat intolerance or cold intolerance Skin Skin: No rash or changing moles Breast Breast: No left breast lump, right breast lump, nipple discharge, breast pain, abnormal mammogram, abnormal US or breast enlargement Musc Musculoskeletal: Yes back problems; no arthritis, rheumatoid arthritis, gout or joint pain Cardio Cardiovascular: No murmur, pacemaker, heart disease, atrial fibrillation, high blood pressure, heart attack, heart stent, palpitations, shortness of breat with exertion or chest pain Psych Psychiatric: No depression, anxiety or hearing voices Resp Respiratory: Yes shortness of breath, Yes sleep apnea, Yes cough, No COPD, Yes asthma, No emphysema, No wheezing Gastro Gastrointestinal: No abdominal pain, No nausea or vomiting, Yes diarrhea, No constipation, No blood in stool, Yes acid reflux, Yes hemorrhoids, No ulcers, No gallbladder problem, No black,tarry stools Jose Hematologic: No blood thinners, No blood disorders, No bleeding, No anemia, No blood clots Neuro Neurologic: No system reviewed and no additional complaints, except as docu, No as per HPI, No abnormal walking, No abnormal hearing, No abnormal movements, No abnormal speech, No behavioral changes, No burning sensations, No confusion, No seizure-like activity, No unsteadiness, No dizziness, No localized weakness, No frequent falls, No headache(s), No lack of coordination, No loss of vision, No memory loss, No numbness, No other visual disturbances, No radiating pain, No restless legs, No sensory deficit, No fainting, No tingling, No tremor(s), No weakness, No other Exam Const General: no acute distress, well developed, well hydrated Orientation: oriented to person, oriented to place, oriented to time [facility] Head: normocephalic, atraumatic Ears: external ears normal Mouth: moist mucous membranes Eyes Sclera: sclerae normal Pupils: normal by confrontation Neck Neck: no lymphadenopathy noted Neck mass: No Thyroid: thyroid normal, symmetrical Chest Chest palpation & inspection: normal inspection of the chest Breast Palpation: No nipple discharge Resp Effort & Inspection: normal respiratory effort Auscultation: clear to auscultation bilaterally Percussion: percussion normal Cardio Rate: regular rate Rhythm: regular rhythm Heart Sounds: no murmurs GI Palpation: soft, no hepatosplenomegaly, no masses, nontender Rectal Exam: other Other: Rectal exam deferred. Extrem General: normal to inspection, no clubbing, cyanosis or edema Assessment & Plan Problems 1. Esophageal dysphagia R13.10 2. Hiatal hernia K44.9 3. Gastroesophageal reflux disease, unspecified whether esophagitis present K21.9 4. Encounter for screening colonoscopy Z12.11 Plan I have discussed the above with the patient. I have offered the patient colonoscopy As well as an EGD for evaluation. I have explained the risks/benefits of the procedure and described the procedure. I have discussed the risks with the patient, including but not limited to: infection, bleeding, perforation of the GI tract requiring emergency surgery, inability to complete the procedure, injury to any internal organs, complications of anesthesia, etc. - the patient understands and agrees to proceed. I have answered all the patient's questions to the patient's satisfaction and the patient has no further questions. The patient has been given instructions for the colon cleansing preparation. Coding Level of Care Code Off vis,new,level 3 Diagnoses Esophageal dysphagia R13.10 ??Dysphagia type: esophageal phase Hiatal hernia K44.9 Gastroesophageal reflux disease, unspecified whether esophagitis present K21.9 ??Esophagitis presence: esophagitis presence not specified Encounter for screening colonoscopy Z12.11 COVID (Procedure Consent) Procedure Criteria Procedure Criteria: Yes Elective The surgeon/proceduralist and patient have discussed in detail the risk of exposure to and/or potential harm posed by the COVID-19 virus with having a surgery/procedure at this time versus the risk of? delaying the surgery/procedure. It is not possible to know either the risk of delaying the surgery or procedure or chance of getting an infection with perfect accuracy, but a joint decision was made between the patient and the surgeon/proceduralist ?to proceed at this time with the scheduled surgery/procedure as indicated on the consent form. I have re-examined the patient. There are no clinical changes since date of exam.
[2020-09-24] MEDS: Lactated Ringers 1,000 ML 100 ML IV (06:54)
[2020-09-24 06:56] VITALS: BP 116/65; PULSE 74; RESP 16; TEMP 36.3; O2SAT 100; BMI 31.6
--- NOTE | 2020-09-24 07:30 | IMM_PTH ---
PATIENT: EVA GONZALEZ LOC: [facility] U#:[id number] AGE/SX: 75/M ROOM: RE09/24/[address]: Dr. Maxx Lozada MD : 1945 BED: DIS: 09/24/2020 SPEC #: [id number] RECD: 09/24/20 14:30 STATUS: ALBERTO REKulwinder #: [id number] COLLEEN: 09/24/20 07:[address]: Maxx Lozada DEPT: IMMUNOHISTOCHEMISTRY RECD BY: Vira Palma ENTERED: 09/24/20 14:31 SP TYPE: IMMUNO OTHR DR: Dr. Peter Finney MD Tissues: A - Stomach, NOS Procedures: H Pylori (initial) PHYSICIAN & INSTITUTION [place] [id number] SPECIMEN INFORMATION: Tissue Source: A - Antrum biopsy Clinical Info: Esophageal dysphagia; hiatal hernia; GERD; esophagitis; screening Specimen Number: [id number] CPT code: 28345 METHODOLOGY: Deparaffinized sections of prefer/formalin-fixed tissue or PAP/DQ stained slides are incubated with monoclonal/polyclonal antibodies/oligonucleotide probes. Localization is made via biotin free immunoperoxidase method. Appropriate controls are performed and reacted as expected. Results on target cell population are indicated in the following table: RESULTS: ANTIBODY / CLONE RESULT Block A H Pylori (polyclonal) negative These tests were developed and their performance characteristics determined by [facility]. They may not have been cleared or approved by the U.S. Food and Drug Administration. The FDA has determined that such clearance or approval is not necessary. INTERPRETATION: A. Antrum, biopsy: Negative for Helicobacter pylori organisms. AM:mable 09/25/20
[2020-09-24 08:00] VITALS: BP 116/65; BP 95/61; PULSE 64; RESP 16; TEMP 36.3; O2SAT 99
--- NOTE | 2020-09-24 08:01 | OP.CCLET_ITS ---
09/24/2020 Peter Finney Re : Upper GI endoscopy procedure for Wellington Boswell Dear Sharmin This procedure was performed on Thursday, September 24, 2020. My impressions and recommendations are as follows: Impressions : - LA Grade A reflux esophagitis. Biopsied. - Gastritis. Biopsied. - Normal examined duodenum. No specimens collected. Recommendations : - Discharge patient to home. - Resume previous diet. - Continue present medications. - Await pathology results. - Repeat upper endoscopy in 3 years for surveillance. - Telephone my office for pathology results in 1 week. My findings are described in the full procedure note, which is enclosed. If I can be of further assistance, please feel free to contact me at Doctor phone number(s): , Fax: [phone], Work: . Sincerely, MD Maxx Sanz MD 09/24/2020 8:00:56 AM This report has been signed electronically.
--- NOTE | 2020-09-24 08:01 | OP.EGD_ITS ---
Patient Name: Wellington Boswell Procedure Date: 09/24/2020 7:11 AM Date of : 1945 Age: 75 Procedure: Upper GI endoscopy Indications: Dysphagia, Gastro-esophageal reflux disease, Hiatal hernia Providers: Maxx Lozada MD Referring MD: Peter Finney Medicines: See the Anesthesia note for documentation of the administered medications Patient Profile: This is a 75 year old male. Refer to note in patient chart for documentation of history and physical. Complications: No immediate complications. Procedure: Pre-Anesthesia Assessment: - Prior to the procedure, a History and Physical was performed, and patient medications and allergies were reviewed. The patient's tolerance of previous anesthesia was also reviewed. The risks and benefits of the procedure and the sedation options and risks were discussed with the patient. All questions were answered, and informed consent was obtained. Prior Anticoagulants: The patient has taken no previous anticoagulant or antiplatelet agents. ASA Grade Assessment: II - A patient with mild systemic disease. After reviewing the risks and benefits, the patient was deemed in satisfactory condition to undergo the procedure. After obtaining informed consent, the endoscope was passed under direct vision. Throughout the procedure, the patient's blood pressure, pulse, and oxygen saturations were monitored continuously. The Endoscope was introduced through the mouth, and advanced to the second part of duodenum. The upper GI endoscopy was accomplished without difficulty. The patient tolerated the procedure well. Scope In: 7:37:29 AM Scope Out: 7:41:11 AM Total Procedure Duration Time 0 hours 3 minutes 42 seconds Findings: LA Grade A (one or more mucosal breaks less than 5 mm, not extending between tops of 2 mucosal folds) esophagitis with no bleeding was found 40 cm from the incisors. Biopsies were taken with a cold forceps for histology. Localized minimal inflammation characterized by erythema was found in the prepyloric region of the stomach. Biopsies were taken with a cold forceps for Helicobacter pylori testing. The examined duodenum was normal. No biopsies or other specimens were collected for this exam. Impression: - LA Grade A reflux esophagitis. Biopsied. - Gastritis. Biopsied. - Normal examined duodenum. No specimens collected. Recommendation: - Discharge patient to home. - Resume previous diet. - Continue present medications. - Await pathology results. - Repeat upper endoscopy in 3 years for surveillance. - Telephone my office for pathology results in 1 week. Procedure Code(s): --- Professional --- 45286, Esophagogastroduodenoscopy, flexible, transoral; with biopsy, single or multiple Diagnosis Code(s): --- Professional --- K21.0, Gastro-esophageal reflux disease with esophagitis K29.70, Gastritis, unspecified, without bleeding R13.10, Dysphagia, unspecified K44.9, Diaphragmatic hernia without obstruction or gangrene CPT copyright 2017 [place] [employer]. All rights reserved. The codes documented in this report are preliminary and upon soil science technical officer review may be revised to meet current compliance requirements. MD Maxx Sanz MD 09/24/2020 8:00:56 AM This report has been signed electronically. Number of Addenda: 0 Note Initiated On: 09/24/2020 7:11 AM
--- NOTE | 2020-09-24 08:03 | OP.CCLET_ITS ---
09/24/2020 Peter Finney Re : Colonoscopy procedure for Wellington Boswell Dear Sharmin This procedure was performed on Thursday, September 24, 2020. My impressions and recommendations are as follows: Impressions : - Diverticulosis in the sigmoid colon and in the descending colon. No specimens collected. - Non-bleeding internal hemorrhoids. No specimens collected. - The examination was otherwise normal. Recommendations : - Discharge patient to home. - Resume previous diet. - Continue present medications. - Repeat colonoscopy in 10 years for screening purposes. - Return to primary care physician at appointment to be scheduled. My findings are described in the full procedure note, which is enclosed. If I can be of further assistance, please feel free to contact me at Doctor phone number(s): , Fax: [phone], Work: . Sincerely, MD Maxx Sanz MD 09/24/2020 8:03:07 AM This report has been signed electronically.
--- NOTE | 2020-09-24 08:03 | OP.COLON_ITS ---
Patient Name: Wellington Boswell Procedure Date: 09/24/2020 7:41 AM Date of : 1945 Age: 75 Procedure: Colonoscopy Indications: Screening for colorectal malignant neoplasm Providers: Maxx Lozada MD Referring MD: Peter Finney Medicines: See the Anesthesia note for documentation of the administered medications Patient Profile: This is a 75 year old male. Refer to note in patient chart for documentation of history and physical. Last Colonoscopy: more than 10 years ago. Complications: No immediate complications. Procedure: Pre-Anesthesia Assessment: - Prior to the procedure, a History and Physical was performed, and patient medications and allergies were reviewed. The patient's tolerance of previous anesthesia was also reviewed. The risks and benefits of the procedure and the sedation options and risks were discussed with the patient. All questions were answered, and informed consent was obtained. Prior Anticoagulants: The patient has taken no previous anticoagulant or antiplatelet agents. ASA Grade Assessment: II - A patient with mild systemic disease. After reviewing the risks and benefits, the patient was deemed in satisfactory condition to undergo the procedure. After I obtained informed consent, the scope was passed under direct vision. Throughout the procedure, the patient's blood pressure, pulse, and oxygen saturations were monitored continuously. The adult colonoscope was introduced through the anus and advanced to the cecum, identified by appendiceal orifice and ileocecal valve. The colonoscopy was performed without difficulty. The patient tolerated the procedure well. The quality of the bowel preparation was good. Scope In: 7:43:04 AM Scope Withdrawal Time 0 hours 6 minutes 37 seconds Scope Out: 7:54:39 AM Total Procedure Duration Time 0 hours 11 minutes 35 seconds Findings: Multiple small and large-mouthed diverticula were found in the sigmoid colon and descending colon. No biopsies or other specimens were collected for this exam. Non-bleeding internal hemorrhoids were found during retroflexion. The hemorrhoids were small. No biopsies or other specimens were collected for this exam. The exam was otherwise without abnormality. Impression: - Diverticulosis in the sigmoid colon and in the descending colon. No specimens collected. - Non-bleeding internal hemorrhoids. No specimens collected. - The examination was otherwise normal. Recommendation: - Discharge patient to home. - Resume previous diet. - Continue present medications. - Repeat colonoscopy in 10 years for screening purposes. - Return to primary care physician at appointment to be scheduled. Procedure Code(s): --- Professional --- G0121, Colorectal cancer screening; colonoscopy on individual not meeting criteria for high risk Diagnosis Code(s): --- Professional --- Z12.11, Encounter for screening for malignant neoplasm of colon K64.8, Other hemorrhoids K57.30, Diverticulosis of large intestine without perforation or abscess without bleeding CPT copyright 2017 [place] [employer]. All rights reserved. The codes documented in this report are preliminary and upon ice cream dipper review may be revised to meet current compliance requirements. MD Maxx Sanz MD 09/24/2020 8:03:07 AM This report has been signed electronically. Number of Addenda: 0 Note Initiated On: 09/24/2020 7:41 AM
[2020-09-24 08:04] VITALS: BP 116/65; BP 126/58; PULSE 65; RESP 16; O2SAT 98
[2020-09-24 08:10] VITALS: BP 110/65; BP 116/65; BP 128/58; PULSE 66; PULSE 70; RESP 16; TEMP 36.3; O2SAT 98; O2SAT 99
[2020-09-24 08:40] VITALS: BP 116/65
== END 2020-09-24 08:45 | disposition home or self-care (01) ==
LOC: EN 06:22 → AC 06:22
PROVIDERS: PCP Family Medicine; Referring Provider Family Medicine; Visit Provider Surgery
PROC: 0DJD8ZZ Inspection of Lower Intestinal Tract, Via Natural or Artificial Opening Endoscopic (ICD-10-PCS; CPT 45378; principal; 2020-09-24 07:25)
DX: Z12.11 Encounter for screening for malignant neoplasm of colon (principal); K57.30 Diverticulosis of large intestine without perforation or abscess without bleeding; K64.8 Other hemorrhoids; K29.70 Gastritis, unspecified, without bleeding; K44.9 Diaphragmatic hernia without obstruction or gangrene; K21.00 Gastro-esophageal reflux disease with esophagitis, without bleeding; J45.909 Unspecified asthma, uncomplicated; Z20.828 Contact with and (suspected) exposure to other viral communicable diseases; Z79.899 Other long term (current) drug therapy; Z86.718 Personal history of other venous thrombosis and embolism; Z87.891 Personal history of nicotine dependence; Z79.51 Long term (current) use of inhaled steroids
CPT/HCPCS: 43239; G0121; 87426; 88305; 88342; C9803; J7120; J2405

== ENCOUNTER 2020-10-01 15:00 | Outpatient (RCR) | payer MEDICARE, OTHER, SELFPAY ==
[2020-08-20 11:25] VITALS: BMI 32.9
[2020-08-20 14:44] VITALS: BMI 33.0
--- NOTE | 2020-08-28 09:01 | HP.PTEVAL ---
Patient's Visit Information EVA GONZALEZ is a 75 year old M referred to Physical Therapy by Dr. Keven Joseph DO with a diagnosis of dizziness and giddiness. Date of Evaluation: 08/28/20 Physical Therapist: DEB Villalobos - Visit Plan Frequency: 3x /Week Duration: 6 Weeks Plan: Test pt on the Neurocom. 2X/ week for 6 weeks for testing and treatment on the NeuroCOM of deficits, foam work with EC/EO, walking with head turns, stairs, other balance activities and other deficits based on the NeuroCom test with HEP - Subjective Pt reports that he has balance issues and he falls/stumbles every now and then. Pt has some dizziness but not the major issue. He reports that he has to careful where he walks so he does not trip. In April turned really quick and he did not see and he fell and busted open his forhead and needed 10 stitches. He has some dizziness in the morning when he sits up and he had some last night for a little bit... maybe 30 seconds. It does not happen everyday. They did clean out his sinuses early spring and he had a lot of polyps and he has a lot of asthma. He has vein issues on his L foot and wear a compression hose so he does not swell. Pt is currently on prednizone.... He has lost 20# unintentially and they will do a colonoscoy etc in Sep. Pt struggles with sit to stand . Pt had COVID in April and not a very bad case. - Objective Gait: Walks with increase veering and R arch seems to be collaspsing and hindfoot eversion. FGA: . Heels and toe walking. LE MMT: B hip flex 4/5, hip abd B 4-/5, knee flex 4/5, knee ext 4/5. Sit to stand: Able to get up without using his arms on the 3rd attempt. CATSIB: 85/120. Stairs: up and down stairs with 1 hand rail with increase veering - Balance Scores Functional Gait Assessment Score: 15 % Disability: 50.0000 CATSIB Score (Max score 120 seconds): 85 - Goals Goal 1:: I HEP Goal Time Frame: 4-6 Weeks Goal 2:: Test on the NeuroCOM Goal Time Frame: 2 Weeks Goal 3:: Increase CATSIB by 5 points to decrease fall risk (SCore was 85 at time of eval) Goal Time Frame: 6-8 Weeks Goal 4:: Increase FGA score by 5 points to decrease fall risk *score was 15/30 at time of the eval Goal Time Frame: 6-8 Weeks - Rehabilitation Potential Rehabilitation Potential: Good - Anticipated Interventions Patient/Client Instruction: Educate patient on: Condition, Plan of Care For the Purpose of:: To improve muscle performance and motor function, To improve ability to perform ADL's, To increase tolerance to activity/condition/position, To improve performance and independence with ADL's, To decrease level of supervision to perform tasks, To improve ability of physical actions for home/community/work/leisure, To improve gait and locomotor functions, To improve endurance, To improve balance, To improve safety with gait Therapeutic Exercise to Include: Strength training, Balance training, Coordination, Gait and locomotor training, Active ROM For the Purpose of:: To improve muscle performance and motor function, To improve ability to perform ADL's, To increase tolerance to activity/condition/position, To improve performance and independence with ADL's, To decrease level of supervision to perform tasks, To improve ability of physical actions for home/community/work/leisure, To improve gait and locomotor functions, To improve health of tissue, To improve endurance, To improve balance, To improve safety with gait Functional Training to Include: Gait training For the Purpose of:: To improve gait and locomotor functions, To improve safety with gait Thank you for the opportunity to evaluate your patient. For Medicare and Medicare HMO plans, please review the plan of care and approve it. It will need to be FAXED BACK to us at [phone] for Medicare purposes. For Medicare only, by signing this I certify the plan of care. Please let me know if there are questions or concerns regarding this plan of care. Physician Signature: Date:
--- NOTE | 2020-09-03 09:15 | HP.PTCOM_ITS ---
PT Communication Note 09/03/[address] Keven Joseph, DO , Thank you for the referral of Wellington Boswell to our clinic. He was tested on our NeuroCom Balance Machine today and enclosed are the patients test results. On the Sensory Organization Test (SOT) he had some issues with his vestibular system helping him maintain his balance. He has slight visual deficits to help maintain his balance. His Center of [place] Alignment was normal and he has ankle strategy which is higher level. His Motor Control Test was normal for reaction time. His Limits of Stability Test was normal. At this point we will work on vestibular issues and overall dynamic balance. Sincerely, DEB Villalobos Contact Information
--- NOTE | 2020-10-01 15:32 | HP.PTDCSUM ---
It has been my pleasure to treat EVA GONZALEZ referred by Dr. Keven Joseph DO, with the diagnosis of dizziness and giddiness for a total of 9 visit(s). Discharge Date: 10/01/20 Please see the following information for a summary of their discharge status. Subjective: Pt reports that he feels a lot better than he did last time. He really did not feel good last time. He saw his surgeon today and they are going to do an endoscopy.... LB Pain Intensity (Out of 10): 1 MARTIN Pain Intensity (Out of 10): 3 % Improvement: 80 Objective/Function: CATSIB 120/120. FGA 18/30. Re-tested on SOT... normal overall score with huge imporvment and in normal range with vestibular input. No dizziness with head turns Goal 1:: I HEP Goal Progress: Goal Met Goal 2:: Test on the NeuroCOM Goal Progress: Goal Met Goal 3:: Increase CATSIB by 5 points to decrease fall risk (SCore was 85 at time of eval) Goal Progress: Goal Met Goal 4:: Increase FGA score by 5 points to decrease fall risk *score was 15/30 at time of the eval Goal Progress: Goal Met Plan: DC PT to HEP of walking with head turns, sit to stand, standing hip flex, and standing hip abd Discharge Comments: DC PT to HEP to include walking with head turns, standing hip flex, standing hip abd, and sit to stands to strengthen his hip. If there are questions or concerns regarding this patient's physical therapy, please feel free to call me at [phone]. Thank you for the referral of this patient. Sincerely, Joan Muñoz, MPT
== END 2020-10-01 19:00 | disposition home or self-care (01) ==
LOC: PT 15:00
PROVIDERS: PCP Family Medicine; Referring Provider Family Medicine; Visit Provider Family Medicine
DX: R42 Dizziness and giddiness (principal)
CPT/HCPCS: 97110; 97161; 97530; 97750

== ENCOUNTER → 2020-10-15 13:41 | Outpatient (CLI) | payer MEDICARE, OTHER, SELFPAY ==
[2020-09-24 06:56] VITALS: BMI 31.6
[2020-10-15 14:06] LABS: Absolute Lymphocyte Count 0.73 X10^3/uL (0.83-4.51); Absolute Neutrophil Count 2.6 X10^3/uL (2.0-7.7); Basophil# 0.05 X10^3/uL; Basophil% 1.1 % (0-1); Eosinophil# 0.49 X10^3/uL; Eosinophils% 11.2 % (0-5); Hematocrit 40.9 % (40-54); Hemoglobin 13.3 g/dL (13.0-16.5); Lymphocyte # 0.73 X10^3/ul (4.0); Lymphocyte % 16.7 % (19-41); Mean Corp Hgb Conc 32.5 g/dL (32-36); Mean Corpuscular Hgb 30.9 pg (27.0-32.0); Mean Corpuscular Volume 94.9 fL (80-94); Monocyte# 0.51 X10^3/uL; Monocyte% 11.6 % (0-10); NRBC Flagged by Analyzer 0 % (0-5); Neutrophil # 2.58 X10^3/uL (2.7-7.7); Neutrophil % 58.9 % (47-70); Platelet Count 240 K/mm3 (150-450); RBC Distribution Width CV 14.3 % (11.6-14.6); RBC Distribution Width SD 50.9 fl (35.1-43.9); Red Blood Count 4.31 M/mm3 (4.6-6.2); White Blood Count 4.4 K/mm3 (4.4-11.0)
== END ==
PROVIDERS: PCP Family Medicine; Referring Provider Nurse Practitioner Acute Care; Visit Provider Nurse Practitioner Acute Care
DX: J45.909 Unspecified asthma, uncomplicated (principal)
CPT/HCPCS: 36415; 85025

== ENCOUNTER 2020-10-25 07:47 | Day surgery (SDC) | payer MEDICARE, OTHER, SELFPAY ==
[2020-10-25 08:01] VITALS: BP 146/82; PULSE 77; RESP 16; TEMP 36.4; O2SAT 97
[2020-10-25] MEDS: Lidocaine 2% Jelly 1 APPLIC Tube (08:05)
== END 2020-10-25 08:46 | disposition home or self-care (01) ==
PROVIDERS: PCP Family Medicine; Referring Provider Family Medicine; Visit Provider Surgery
PROC: F00ZJWZ Instrumental Swallowing and Oral Function Assessment using Swallowing Equipment (ICD-10-PCS; CPT 43235; principal; 2020-10-25 07:55)
DX: K21.9 Gastro-esophageal reflux disease without esophagitis (principal); Z20.822 Contact with and (suspected) exposure to COVID-19
CPT/HCPCS: 91010; 87426; C9803

== ENCOUNTER 2020-12-25 12:52 | Outpatient (RCR) | payer MEDICARE, OTHER, SELFPAY ==
[2020-11-23 14:38] VITALS: BMI 31.8
[2020-12-25] MEDS: COVID-19 VACC, MRNA(PFIZER)/PF 30 MCG/0.3 ML SYRINGE IM (10:40)
[2021-01-15] MEDS: COVID-19 VACC, MRNA(PFIZER)/PF 30 MCG/0.3 ML SYRINGE IM (10:25)
== END 2021-03-26 23:59 ==
LOC: IMMUN 12:52
PROVIDERS: PCP Family Medicine; Visit Provider Family Medicine
DX: Z23 Encounter for immunization (principal)
CPT/HCPCS: 0001A; 0002A; 91300

== ENCOUNTER → 2021-01-29 13:16 | Outpatient (CLI) | payer MEDICARE, OTHER, SELFPAY ==
[2020-12-28 09:08] VITALS: BMI 31.2
[2021-01-29] MEDS: Benralizumab 30 MG/ML Syringe SC (13:59)
[2021-01-29 14:04] VITALS: BP 135/63; PULSE 77; RESP 16; TEMP 36.4; O2SAT 95; BMI 31.2
[2021-01-29 15:01] VITALS: BP 114/68; PULSE 71
== END ==
PROVIDERS: PCP Family Medicine; Visit Provider Nurse Practitioner Acute Care
DX: M81.8 Other osteoporosis without current pathological fracture (principal)
CPT/HCPCS: 96372; J0517

== ENCOUNTER → 2021-02-26 13:18 | Outpatient (CLI) | payer MEDICARE, OTHER, SELFPAY ==
[2020-12-28 09:08] VITALS: BMI 31.2
[2021-02-12 10:27] VITALS: BMI 31.6
[2021-02-26 13:24] VITALS: BP 149/74; PULSE 72; RESP 16; TEMP 35.8; O2SAT 98; BMI 32.3
[2021-02-26] MEDS: Benralizumab 30 MG/ML Syringe SC (13:31)
== END ==
PROVIDERS: PCP Family Medicine; Referring Provider Nurse Practitioner Acute Care; Visit Provider Nurse Practitioner Acute Care
DX: J45.50 Severe persistent asthma, uncomplicated (principal)
CPT/HCPCS: 96372; J0517

== ENCOUNTER → 2021-03-11 14:21 | Outpatient (CLI) | payer MEDICARE, OTHER, SELFPAY ==
[2020-08-20 14:44] VITALS: BMI 33.0
[2021-02-26 13:24] VITALS: BMI 32.3
[2021-03-11 14:27] VITALS: BP 136/59; PULSE 84; RESP 16; TEMP 36.6; O2SAT 98; BMI 32.3
[2021-03-11] MEDS: DENOSUMAB 60 MG/ML SC (14:29)
== END ==
PROVIDERS: PCP Family Medicine; Referring Provider Internal Medicine Endocrinology, Diabetes & Metabolism; Visit Provider Internal Medicine Endocrinology, Diabetes & Metabolism
DX: M81.8 Other osteoporosis without current pathological fracture (principal)
CPT/HCPCS: 96372; J0897

== ENCOUNTER → 2021-03-26 13:21 | Outpatient (CLI) | payer MEDICARE, OTHER, SELFPAY ==
[2021-01-29 14:04] VITALS: BMI 31.2
[2021-03-11 14:27] VITALS: BMI 32.3
[2021-03-26 13:29] VITALS: BP 132/59; PULSE 88; RESP 16; TEMP 36.5; O2SAT 93; BMI 32.0
[2021-03-26] MEDS: Benralizumab 30 MG/ML Syringe SC (13:34)
== END ==
PROVIDERS: PCP Family Medicine; Referring Provider Nurse Practitioner Acute Care; Visit Provider Nurse Practitioner Acute Care
DX: J45.50 Severe persistent asthma, uncomplicated (principal)
CPT/HCPCS: 96372; J0517

== ENCOUNTER → 2021-05-21 13:22 | Outpatient (CLI) | payer MEDICARE, OTHER, SELFPAY ==
[2021-01-29 14:04] VITALS: BMI 31.2
[2021-03-26 13:29] VITALS: BMI 32.0
[2021-05-21] MEDS: Benralizumab 30 MG/ML Syringe SC (13:37)
[2021-05-21 13:40] VITALS: BP 142/78; PULSE 87; RESP 16; TEMP 36; O2SAT 98
== END ==
PROVIDERS: PCP Family Medicine; Referring Provider Nurse Practitioner Acute Care; Visit Provider Nurse Practitioner Acute Care
DX: J45.50 Severe persistent asthma, uncomplicated (principal)
CPT/HCPCS: 96372; J0517

== ENCOUNTER → 2021-07-16 13:20 | Outpatient (CLI) | payer MEDICARE, OTHER, SELFPAY ==
[2021-03-26 13:29] VITALS: BMI 32.0
[2021-07-16 13:37] VITALS: BP 133/67; PULSE 71; RESP 16; TEMP 35.9; O2SAT 99; BMI 31.6
[2021-07-16] MEDS: Benralizumab 30 MG/ML Syringe SC (13:40)
== END ==
PROVIDERS: PCP Family Medicine; Referring Provider Nurse Practitioner Acute Care; Visit Provider Nurse Practitioner Acute Care
DX: J45.50 Severe persistent asthma, uncomplicated (principal)
CPT/HCPCS: 96372; J0517

== ENCOUNTER → 2021-07-30 12:44 | Outpatient (CLI) | payer MEDICARE, OTHER, SELFPAY ==
--- NOTE | 2021-07-30 12:47 | RAD_ITS ---
STUDY: X-RAY - LUMBAR SPINE REASON FOR EXAM: Male, 76 years old. Back pain PAIN TECHNIQUE: XR Spine Lumbar Min 4 Views COMPARISON: None FINDINGS: Normal lumbar lordosis. There is a dextroscoliosis of the lumbar spine. There is a normal alignment of the vertebrae. There is multilevel endplate spondylosis of the lumbar vertebrae. There is multi-level degenerative disc disease with multi-level disc space narrowing. There are atherosclerotic vascular calcifications. The soft tissue structures are unremarkable. Total left hip arthroplasty. RAD/L/S Spine Min 4 Views IMPRESSION: Degenerative changes of the spine, as detailed above. Electronically Signed: Raghu Christie MD at 16:18 EDT , Service support ,
== END ==
PROVIDERS: PCP Family Medicine; Referring Provider Family Medicine; Visit Provider Family Medicine
DX: M54.50 Low back pain, unspecified (principal)
CPT/HCPCS: 72110

== ENCOUNTER → 2021-09-17 14:12 | Outpatient (CLI) | payer MEDICARE, OTHER, SELFPAY ==
[2021-09-17 14:20] VITALS: BP 123/71; PULSE 86; RESP 16; TEMP 36.1; O2SAT 99; BMI 34.2
[2021-09-17] MEDS: Benralizumab 30 MG/ML Syringe SC (14:22)
== END ==
PROVIDERS: PCP Family Medicine; Referring Provider Nurse Practitioner Acute Care; Visit Provider Nurse Practitioner Acute Care
DX: J45.50 Severe persistent asthma, uncomplicated (principal)
CPT/HCPCS: 96372; J0517

== ENCOUNTER → 2021-09-20 08:52 | Outpatient (CLI) | payer MEDICARE, OTHER, SELFPAY ==
[2021-02-26 13:24] VITALS: BMI 32.3
[2021-09-20 08:57] VITALS: BP 150/72; PULSE 71; RESP 16; TEMP 35.8; O2SAT 99; BMI 35.2
[2021-09-20] MEDS: DENOSUMAB 60 MG/ML SC (09:01)
== END ==
PROVIDERS: PCP Family Medicine; Referring Provider Internal Medicine Endocrinology, Diabetes & Metabolism; Visit Provider Internal Medicine Endocrinology, Diabetes & Metabolism
DX: M81.8 Other osteoporosis without current pathological fracture (principal)
CPT/HCPCS: 96372; J0897

== ENCOUNTER 2021-11-12 14:19 | Outpatient (CLI) | payer MEDICARE, OTHER, SELFPAY ==
[2021-11-12] MEDS: Benralizumab 30 MG/ML Syringe SC (14:46)
[2021-11-12 14:49] VITALS: BP 165/83; PULSE 74; RESP 18; TEMP 36.2; O2SAT 97
== END 2021-11-12 23:59 | disposition short-term general hospital (02) ==
LOC: MEDOUTP 14:21
PROVIDERS: PCP Family Medicine; Referring Provider Nurse Practitioner Acute Care; Visit Provider Nurse Practitioner Acute Care
DX: J45.50 Severe persistent asthma, uncomplicated (principal)
CPT/HCPCS: 96372; J0517

== ENCOUNTER 2022-01-07 14:08 | Outpatient (CLI) | payer MEDICARE, OTHER, SELFPAY ==
[2022-01-07] MEDS: Benralizumab 30 MG/ML Syringe SC (14:23)
[2022-01-07 14:27] VITALS: BP 149/70; PULSE 71; RESP 12; TEMP 36.1; O2SAT 98; BMI 33.6
== END 2022-01-07 23:59 | disposition home or self-care (01) ==
LOC: MEDOUTP 14:09
PROVIDERS: PCP Family Medicine; Referring Provider Nurse Practitioner Acute Care; Visit Provider Nurse Practitioner Acute Care
DX: J45.50 Severe persistent asthma, uncomplicated (principal)
CPT/HCPCS: 96372; J0517

== ENCOUNTER → 2022-02-19 | Outpatient (CLI) | payer MEDICARE, OTHER, SELFPAY ==
--- NOTE | 2022-02-19 08:22 | BD_ITS ---
STUDY: DUAL ENERGY X-RAY ABSORPTIOMETRY / DXA REASON FOR EXAM: Male, 77 years old. M810. TECHNIQUE: Bone Mineral Density (BMD) measurements of lumbar spine and right hip were obtained. COMPARISON: Comparison is made with prior study 07/20/2018. FINDINGS: Lumbar Spine (L1-L4): g/cm2 (0.877) / T-score (-1.9) / Z-score (-0.9) Findings are suggestive of osteopenia with a moderate fracture risk. Right Femur Total: g/cm2 (0.740) / T-score (-1.9) / Z-score (-1.1) Right Femoral Neck: g/cm2 (0.616) / T-score (-2.3) / Z-score (-0.9) The T-Scores on the most recent prior examination were: Lumbar Spine (L1-L4): There has been worsening of bone density since the previous examination. Right Femur Total: which represents an improvement of 24.2%. BD/Dexa Bone Density Study IMPRESSION: The patient is considered osteopenic as outlined below according to World [place] Organization (WHO) criteria with a high fracture risk. There has been improvement of bone density since the previous examination. Reference Information: The T-score is the number of standard deviations above or below the standard which is normal for young adults at their peak bone mineral density. The World Health Organization (WHO) interprets the T-scores as follows: Above -1 Normal bone density Between -1 and -2.5 Osteopenia Equal to / or below -2.5 Osteoporosis As a practical clinical guideline, osteopenia may be graded as follows: Mild -1 through -1.5 Moderate -1.6 through -2.0 Severe -2.1 through -2.4 The Z-score is the number of standard deviations above or below age-matched controls. A Z-score of less than -1.5 would be considered abnormal. References: 1. NIH Osteoporosis and Related Bone Diseases www osteo.org 2. International Society for Clinical Densitometry www iscd.org 3. National Osteoporosis Foundation www nof.org Electronically Signed: Quan Peterson MD at 8:08 EDT ,
[2022-02-19 09:26] LABS: Vitamin D,25 Hydroxy 57.5 ng/mL
[2022-02-19 09:30] LABS: Anion Gap 5 (5-15); BUN 16 mg/dL (7-18); BUN/Creat Ratio 19.9 RATIO (10-20); Calcium,Total 8.7 mg/dL (8.5-10.1); Chloride 111 mmol/L (98-107); EST Glomerular Filtration Rate 99 mL/min (>60); Est Glom Filt Rate - Afr Amer 120 mL/min (>60); Glucose 95 mg/dL (74-106); Potassium 3.9 mmol/L (3.5-5.1); Sodium Level 143 mmol/L (136-145)
== END | disposition home or self-care (01) ==
PROVIDERS: PCP Family Medicine; Referring Provider Internal Medicine Endocrinology, Diabetes & Metabolism; Visit Provider Internal Medicine Endocrinology, Diabetes & Metabolism
DX: E04.9 Nontoxic goiter, unspecified (principal); E55.9 Vitamin D deficiency, unspecified; M81.8 Other osteoporosis without current pathological fracture
CPT/HCPCS: 36415; 77080; 80048; 82306; 84443

== ENCOUNTER → 2022-03-04 | Outpatient (CLI) | payer MEDICARE, OTHER, SELFPAY ==
[2022-03-04 14:38] VITALS: BP 140/68; PULSE 71; RESP 16; TEMP 36.4; O2SAT 98; BMI 34.8
[2022-03-04] MEDS: Benralizumab 30 MG/ML Syringe SC (14:52)
== END | disposition home or self-care (01) ==
LOC: MEDOUTP 14:29
PROVIDERS: PCP Family Medicine; Referring Provider Nurse Practitioner Acute Care; Visit Provider Nurse Practitioner Acute Care
DX: J45.50 Severe persistent asthma, uncomplicated (principal)
CPT/HCPCS: 96372; J0517

== ENCOUNTER → 2022-03-21 | Outpatient (CLI) | payer MEDICARE, OTHER, SELFPAY ==
[2022-03-21 08:33] VITALS: BP 136/71; PULSE 73; RESP 18; TEMP 36.4; O2SAT 98; BMI 33.3
[2022-03-21] MEDS: DENOSUMAB 60 MG/ML SC (08:39)
== END | disposition home or self-care (01) ==
LOC: MEDOUTP 08:23
PROVIDERS: PCP Family Medicine; Referring Provider Internal Medicine Endocrinology, Diabetes & Metabolism; Visit Provider Internal Medicine Endocrinology, Diabetes & Metabolism
DX: M81.8 Other osteoporosis without current pathological fracture (principal)
CPT/HCPCS: 96372; J0897

== ENCOUNTER → 2022-03-27 | Outpatient (CLI) | payer MEDICARE, OTHER, SELFPAY | END | disposition home or self-care (01) | LOC: SL 11:33 | PROVIDERS: PCP Family Medicine; Visit Provider Nurse Practitioner Acute Care | DX: G47.33 Obstructive sleep apnea (adult) (pediatric) (principal) | CPT/HCPCS: 98960; G0463 ==

== ENCOUNTER → 2022-04-29 | Outpatient (CLI) | payer MEDICARE, OTHER, SELFPAY ==
[2022-04-29 14:57] VITALS: BP 124/82; PULSE 81; RESP 16; TEMP 36.3; O2SAT 95; BMI 34.3
[2022-04-29] MEDS: Benralizumab 30 MG/ML Syringe SC (15:01)
== END | disposition home or self-care (01) ==
LOC: MEDOUTP 14:40
PROVIDERS: PCP Family Medicine; Referring Provider Nurse Practitioner Acute Care; Visit Provider Nurse Practitioner Acute Care
DX: J45.50 Severe persistent asthma, uncomplicated (principal)
CPT/HCPCS: 96372; J0517

== ENCOUNTER → 2022-05-01 | Outpatient (CLI) | payer MEDICARE, OTHER, SELFPAY ==
[2022-05-01 10:58] LABS: Anion Gap 2 (5-15); BUN 15 mg/dL (7-18); BUN/Creat Ratio 15.7 RATIO (10-20); Calcium,Total 9.2 mg/dL (8.5-10.1); Chloride 112 mmol/L (98-107); Creatinine, Serum 0.95 mg/dL (0.70-1.30); EST Glomerular Filtration Rate 82 mL/min (>60); Est Glom Filt Rate - Afr Amer 99 mL/min (>60); Glucose 103 mg/dL (74-106); Potassium 3.9 mmol/L (3.5-5.1); Sodium Level 140 mmol/L (136-145); Thyroid Stim Hormone (TSH) 5.12 uIU/mL (0.358-3.74)
== END | disposition home or self-care (01) ==
LOC: PAVLAB 10:11
PROVIDERS: PCP Family Medicine; Referring Provider Internal Medicine Endocrinology, Diabetes & Metabolism; Visit Provider Internal Medicine Endocrinology, Diabetes & Metabolism
DX: E03.8 Other specified hypothyroidism (principal)
CPT/HCPCS: 36415; 80048; 84443

== ENCOUNTER → 2022-06-24 | Outpatient (CLI) | payer MEDICARE, OTHER, SELFPAY ==
[2022-06-24] MEDS: Benralizumab 30 MG/ML Syringe SC (13:59)
[2022-06-24 14:00] VITALS: BP 141/65; PULSE 77; RESP 16; TEMP 36.6; O2SAT 97; BMI 33.6
== END | disposition home or self-care (01) ==
LOC: MEDOUTP 13:53
PROVIDERS: PCP Family Medicine; Referring Provider Nurse Practitioner Acute Care; Visit Provider Nurse Practitioner Acute Care
DX: J45.50 Severe persistent asthma, uncomplicated (principal)
CPT/HCPCS: 96372; J0517

== ENCOUNTER → 2022-07-16 | Outpatient (CLI) | payer MEDICARE, OTHER, SELFPAY ==
--- NOTE | 2022-07-16 17:42 | CT_ITS ---
STUDY: CT ABDOMEN AND PELVIS WITH CONTRAST REASON FOR EXAM: Male, 77 years old. LLQ PAIN RADIATION DOSAGE (If Supplied By Facility): CTDIvol = ( 19.78 ) mGy, DLP = ( 1200.66 ) mGycm TECHNIQUE: Transaxial images were obtained from the dome of the diaphragm to the symphysis pubis without oral contrast. Oral and amp;amp; IV Readi-CAT and amp;amp; 100mL Isovue-370 was administered. Sagittal and coronal images were reconstructed. Individualized dose optimization techniques were used for this CT. COMPARISON: None. FINDINGS: The visualized lung bases are unremarkable. The visualized portions of the heart are within normal limits. Multiple liver cysts the largest measures 1.7 cm. There are surgical clips in the gallbladder fossa consistent with a prior cholecystectomy. Normal spleen. Normal pancreas. Normal bilateral adrenal glands. Normal right kidney. Normal left kidney. There is a small hiatal hernia. Normal small intestine. There are multiple colonic diverticula consistent with diverticulosis. The appendix is visualized and appears normal. Normal abdominal aorta. Normal inferior vena cava. Normal retroperitoneum. Normal urinary bladder. Urinary bladder diverticulum on the right measures 2.4 cm. Left inguinal hernia containing part of the sigmoid colon without evidence of incarceration. There are diffuse degenerative changes of the visualized lumbar spine. CT/Abdomen/Pelvis WITH Contrast IMPRESSION: Left inguinal hernia containing part of the sigmoid colon without evidence of incarceration. Electronically Signed: Devora Thrasher MD at 2:47 EDT ,
[2022-07-16 18:21] LABS: CREATININE FINGERSTICK < 0.9 mg/dL (0.70-1.30); EGFR FINGERSTICK > 60.0000 mL/min (>60)
== END | disposition home or self-care (01) ==
LOC: CT 17:41
PROVIDERS: PCP Family Medicine; Visit Provider Family Medicine
DX: R10.32 Left lower quadrant pain (principal)
CPT/HCPCS: 74177; Q9967

== ENCOUNTER 2022-07-23 15:00 | Outpatient (RCR) | payer MEDICARE, OTHER, SELFPAY ==
--- NOTE | 2022-05-07 15:54 | HP.PTEVAL_ITS ---
Patient's Visit Information EVA GONZALEZ is a 77 year old M referred to Physical Therapy by Dr. Ray Guajardo MD with a diagnosis of L DDD. Date of Evaluation: 05/07/22 Physical Therapist: DEB Villalobos - Visit Plan Frequency: 2x /Week Duration: 2 Months Plan: 2-3X/ week for 8 weeks for neutral spine core stability, foam. stick roll out to the L anterior Quad, HS stretching, gastroc stretching, trunk AROM with HEP. Pt does have a L THR. HEP: PT, PT with hip march, L Clam shell with ab brace - Subjective Pt had L DDD and Dr is putting 4 shots in the R side on we. He has pain on the R side and up the muscles. Sometimes he has a lot of pain and others not so bad... more of a pressure. If he is out working or standing doing dishes for 10-15 min it gets to bother him. He has osteopenia and they did a scan and he has osteopenia in LB area also. wants to do shots and he wants him to do PT as well. He reports only minor pain with sitting. He has pain in the morning when he wakes up and can get it throughout the day. He had neck fusion a few years. Stairs: He lives in a tri-level and his office is in the basement and he is slower on the stairs by the end of the day and he goes 2 feet to a stair most of the time with 1 rail. Sit to stand: He uses his arms to get out of a chair. He reports only stumbling but not falls and still has to watch his balance. LE weakness is sometimes present in the morning. He has pain in his R HS and at times getting numb on B legs but not very often. He has to be careful when he gets up after sleeping cause the first 2 steps are off balance. He can walk approx 1/4-1/2 mile he has to stop due to back pain and leg stamina. He is having injections next Wed and then out of town for a wk and then a trip planned for . He still has back issues trying to lift something. - Pain Back Pain Pain Intensity (Out of 10): 3 - Objective Gait: Decrease stance time on the R LE. LE MMT: Hip flex R 4/5 and L 4-/5, Knee flex R 4/5 and Knee flex 4-/5, Knee ext R 4-/5 and L knee ext 4/5, R hip abd 4/5 and L hip abd 4-/5, 1/2 normal ROM bridge. L hip flexor is tight and painful and grabs into spasm when he uses his leg. Trunk AROM: Trunk flexion 75%, ext 10%, SB 25%, Rot B 50%. + SLR on the R. Pt is able to do a PT without any pain. Pt has tight B hamstrings, gastroc and hip flexors... Pt has a h/o of L THR and revison done 3X. - Balance/Special Test Scores Oswestry Low Back Score: 15 - Goals Goal 1:: I HEP Goal Time Frame: 6-8 Weeks Goal 2:: Decrease back pain to 1/10 with ADL's Goal Time Frame: 6-8 Weeks Goal 3:: Be able to have less leg pain B (R lateral and L anterior quad) Goal Time Frame: 6-8 Weeks Goal 4:: Be able to do a full ROM bridge without pain Goal Time Frame: 6-8 Weeks - Rehabilitation Potential Rehabilitation Potential: Good - Anticipated Interventions Patient/Client Instruction: Educate patient on: Plan of Care For the Purpose of:: To decrease pain, To increase ROM, To improve nutrient deli very to tissue, To increase oxygenation perfusion, To improve muscle performance and motor function, To improve ability to perform ADL's, To increase tolerance to activity/condition/position, To decrease level of supervision to perform tasks, To improve ability of physical actions for home/community/work/leisure, To improve gait and locomotor functions, To improve health of tissue, To decrease soft tissue restriction, To increase flexibility/ROM, To improve endurance, To improve balance Therapeutic Exercise to Include: Strength training, Balance training, Coordination, Body mechanics, Postural training, Flexibilty training, Gait and locomotor training, Neuromotor development, Passive ROM, Active ROM, Dynamic Lumbar Stabilization, Scapular Strength/Stabilization For the Purpose of:: To decrease pain, To increase ROM, To improve nutrient delivery to tissue, To increase oxygenation perfusion, To improve ability to perform ADL's, To increase tolerance to activity/condition/position, To improve performance and independence with ADL's, To decrease level of supervision to perform tasks, To improve ability of physical actions for home/commu nity/work/leisure, To improve gait and locomotor functions, To improve health of tissue, To decrease soft tissue restriction, To increase flexibility/ROM, To improve endurance Manual Therapy Techniques to Include: Passive ROM, Soft tissue mobilization For the Purpose of:: To decrease pain, To increase ROM, To improve nutrient delivery to tissue, To improve muscle performance and motor function, To improve ability to perform ADL's, To increase tolerance to activity/condition/position, To improve performance and independence with ADL's, To decrease level of supervision to perform tasks, To improve ability of physical actions for home/community/work/leisure, To improve gait and locomotor functions, To improve health of tissue, To decrease soft tissue restriction, To increase flexibility/ROM Thank you for the opportunity to evaluate your patient. For Medicare and Medicare HMO plans, please review the plan of care and approve it. It will need to be FAXED BACK to us at [phone] for Medicare purposes. For Medicare only, by signing this I certify the plan of care. Please let me know if there are questions or concerns regarding this plan of care. Physician Signature: Date:
--- NOTE | 2022-07-23 15:30 | HP.PTDCSUM ---
It has been my pleasure to treat EVA GONZALEZ referred by Dr. Ray Guajardo MD, with the diagnosis of L DDD for a total of 13 visit(s). Discharge Date: 07/23/22 Please see the following information for a summary of their discharge status. Subjective: Pt is not feeling well today. Pt went and talked to Dr Tesfaye yesterday and they are going to do another shot and if that does not work then they will kill the nerve. He has a pressure on that R side. Pt wants to take a few weeks off and get the injection. He is just frustrated that it is not gone. Pt is not getting a lot of sleep either and that does not help. Back Pain Pain Intensity (Out of 10): 1 R side pain Pain Intensity (Out of 10): 4 % Improvement: 80 Objective/Function: Less tender on the R side with massage gun today and pt walked out feeling much better. No real carry over to HEP Goal 1:: I HEP Goal Progress: Not Progressing Goal 2:: Decrease back pain to 1/10 with ADL's Goal Progress: Progressing Goal 3:: Be able to have less leg pain B (R lateral and L anterior quad) Goal Progress: Progressing Goal 4:: Be able to do a full ROM bridge without pain Goal Progress: Progressing Plan: 2-3X/ week for 8 weeks for neutral spine core stability, foam. stick roll out to the L anterior Quad, HS stretching, gastroc stretching, trunk AROM with HEP. Pt does have a L THR. HEP: PT, PT with hip march, L Clam shell with ab brace Discharge Comments: DC PT back to If there are questions or concerns regarding this patient's physical therapy, please feel free to call me at [phone]. Thank you for the referral of this patient. Sincerely, Joan Muñoz, MPT Balance/Gait/Functional tests - Balance/Special Test Scores Oswestry Low Back Score: 6
== END 2022-07-23 19:00 | disposition home or self-care (01) ==
LOC: PT 15:00
PROVIDERS: PCP Family Medicine; Referring Provider Anesthesiology Pain Medicine; Visit Provider Anesthesiology Pain Medicine
DX: M51.37 Other intervertebral disc degeneration, lumbosacral region (principal)
CPT/HCPCS: 97110; 97161; 97530

== ENCOUNTER → 2022-08-19 | Outpatient (CLI) | payer MEDICARE, OTHER, SELFPAY ==
[2022-08-19 14:56] VITALS: BP 159/64; PULSE 69; RESP 14; TEMP 36.3; O2SAT 99; BMI 33.7
[2022-08-19] MEDS: Benralizumab 30 MG/ML Syringe SC (15:15)
== END | disposition home or self-care (01) ==
LOC: MEDOUTP 14:46
PROVIDERS: PCP Family Medicine; Referring Provider Nurse Practitioner Acute Care; Visit Provider Nurse Practitioner Acute Care
DX: J45.50 Severe persistent asthma, uncomplicated (principal)
CPT/HCPCS: 96372; J0517

== ENCOUNTER → 2022-09-22 | Outpatient (CLI) | payer MEDICARE, OTHER, SELFPAY ==
[2022-09-22 09:42] LABS: Vitamin D,25 Hydroxy 36.3 ng/mL
[2022-09-22 09:45] LABS: Anion Gap 4 (5-15); BUN 12 mg/dL (7-18); Calcium,Total 9.4 mg/dL (8.5-10.1); Chloride 109 mmol/L (98-107); Creatinine, Serum 0.92 mg/dL (0.70-1.30); EST Glomerular Filtration Rate 85 mL/min (>60); Est Glom Filt Rate - Afr Amer 102 mL/min (>60); Glucose 101 mg/dL (74-106); Potassium 3.9 mmol/L (3.5-5.1); Sodium Level 145 mmol/L (136-145); Thyroid Stim Hormone (TSH) 7.24 uIU/mL (0.358-3.74)
== END | disposition home or self-care (01) ==
LOC: PAVLAB 08:18
PROVIDERS: PCP Family Medicine; Referring Provider Internal Medicine Endocrinology, Diabetes & Metabolism; Visit Provider Internal Medicine Endocrinology, Diabetes & Metabolism
DX: E03.8 Other specified hypothyroidism (principal); E55.9 Vitamin D deficiency, unspecified
CPT/HCPCS: 36415; 80048; 82306; 84443

== ENCOUNTER → 2022-10-14 | Outpatient (CLI) | payer MEDICARE, OTHER, SELFPAY ==
[2022-10-14 14:24] VITALS: BP 147/65; PULSE 65; O2SAT 99
[2022-10-14] MEDS: DENOSUMAB 60 MG/ML SC (14:28)
== END | disposition home or self-care (01) ==
LOC: MEDOUTP 14:19
PROVIDERS: PCP Family Medicine; Referring Provider Internal Medicine Endocrinology, Diabetes & Metabolism; Visit Provider Internal Medicine Endocrinology, Diabetes & Metabolism
DX: M81.8 Other osteoporosis without current pathological fracture (principal)
CPT/HCPCS: 96372; J0897

== ENCOUNTER → 2022-10-24 | Outpatient (CLI) | payer MEDICARE, OTHER, SELFPAY ==
[2022-10-24 09:55] VITALS: BP 150/79; PULSE 82; RESP 16; TEMP 36.5; O2SAT 97
[2022-10-24] MEDS: Benralizumab 30 MG/ML Syringe SC (10:02)
== END | disposition home or self-care (01) ==
LOC: MEDOUTP 09:44
PROVIDERS: PCP Family Medicine; Referring Provider Nurse Practitioner Acute Care; Visit Provider Nurse Practitioner Acute Care
DX: J45.50 Severe persistent asthma, uncomplicated (principal)
CPT/HCPCS: 96372; J0517

== ENCOUNTER → 2022-12-03 | Outpatient (CLI) | payer MEDICARE, OTHER, SELFPAY ==
[2022-12-03 11:56] LABS: Thyroid Stim Hormone (TSH) 3.86 uIU/mL (0.358-3.74)
== END | disposition home or self-care (01) ==
PROVIDERS: PCP Family Medicine; Referring Provider Internal Medicine Endocrinology, Diabetes & Metabolism; Visit Provider Internal Medicine Endocrinology, Diabetes & Metabolism
DX: E03.8 Other specified hypothyroidism (principal)
CPT/HCPCS: 36415; 84443

== ENCOUNTER → 2022-12-26 | Outpatient (CLI) | payer MEDICARE, OTHER, SELFPAY ==
[2022-12-26 14:38] VITALS: BP 110/60; PULSE 77; RESP 16; TEMP 36.3; O2SAT 99; BMI 31.4
[2022-12-26] MEDS: Benralizumab 30 MG/ML Syringe SC (14:41)
== END | disposition home or self-care (01) ==
LOC: MEDOUTP 14:27
PROVIDERS: PCP Family Medicine; Referring Provider Nurse Practitioner Acute Care; Visit Provider Nurse Practitioner Acute Care
DX: J45.50 Severe persistent asthma, uncomplicated (principal)
CPT/HCPCS: 96372; J0517

== ENCOUNTER 2023-02-20 11:12 | Outpatient (CLI) | payer MEDICARE, OTHER, SELFPAY ==
[2023-02-20 11:21] VITALS: BP 132/65; PULSE 79; RESP 16; TEMP 36.4; O2SAT 95; BMI 30.5
[2023-02-20] MEDS: Benralizumab 30 MG/ML Syringe SC (11:27)
== END 2023-02-20 11:13 | disposition home or self-care (01) ==
LOC: MEDOUTP 11:12
PROVIDERS: PCP Family Medicine; Referring Provider Nurse Practitioner Acute Care; Visit Provider Nurse Practitioner Acute Care
DX: J45.50 Severe persistent asthma, uncomplicated (principal)
CPT/HCPCS: 96372; J0517

== ENCOUNTER 2023-03-05 10:30 | Outpatient (RCR) | payer MEDICARE, OTHER, SELFPAY ==
--- NOTE | 2022-11-28 10:03 | HP.PTEVAL_ITS ---
Patient's Visit Information EVA GONZALEZ is a 77 year old M referred to Physical Therapy by Dr. Alvaro Moss MD with a diagnosis of L THR and LBP. Date of Evaluation: 11/28/22 Physical Therapist: DEB Villalobos - Visit Plan Frequency: 2x /Week Duration: 6 Weeks Plan: 2X/ week for 8 weeks for R hip and LE and core strength. Also work on balance and improvement of gait and stair negotiation with HEP. HEP: bridges, clam shells, standing heel and toe raises. - Subjective Pt saw [facility]/ Dr Tesfaye is going to burn the nerve December 17. He saw Dr Moss and said he wants to really build up the core strength cause he thinks that is what is causing the pain. If her turns the right way he will get a catch and it will be very painful and it is on the L side but alot of the pain is on the R side. He has pain off and on and he does have some pain after laying on his back but that is only sometimes. He might take 3 Advil at night and that helps. He has N&T in the R leg that comes and goes every once in awhile. Stairs are getting tougher and tougher. He falls every once in awhile... the last time he fell he tripped over a huge rock. - Pain back pain Pain Intensity (Out of 10): 4 L Leg pain Pain Intensity (Out of 10): 0 R leg pain Pain Intensity (Out of 10): 0 - Objective Gait: Walks with decrease stance time on the L LE with L leg adducted. When tries to bring feet closer together he has increase LOB and veering and poor balance. Balance is worse with head turns. FGA: 8. LE MMT: R hip flex 15.9 and L 9.8. R knee ext 16.1 and L 16.1. R knee flex 12.6 and L 9. R hip abd 9.1 and L 4.6. Tight B Hamstrings. -SLR B and - SLUMP. Sit to stand: uses arms to help and likes to put most of his weight on his R side to stand. Pt struggles with heel raises and needs UE support to attmmpt them - Balance/Special Test Scores Functional Gait Assessment Score: 8 % Disability: 73.3400 Lower Extremity Functional Score: 44 - Goals Goal 1:: I HEP Goal Time Frame: 8-12 Weeks Goal 2:: Increase LE strength (at time of the eval:LE MMT: R hip flex 15.9 and L 9.8. R knee ext 16.1 and L 16.1. R knee flex 12.6 and L 9. R hip abd 9.1 and L 4.6). Goal Time Frame: 8-12 Weeks Goal 3:: Improve balance (score on FGA was 8) Goal Time Frame: 8-12 Weeks Goal 4:: Be able to heel and toe raise X 30 with at leat 3/4 normal ROM and UE support if needed Goal Time Frame: 8-12 Weeks - Rehabilitation Potential Rehabilitation Potential: Good - Anticipated Interventions Patient/Client Instruction: Educate patient on: Condition, Plan of Care For the Purpose of:: To decrease pain, To decrease swelling/inflammation, To increase ROM, To improve nutrient delivery to tissue, To improve muscle performance and motor function, To improve ability to perform ADL's, To increase tolerance to activity/condition/position, To improve performance and independence with ADL's, To decrease level of supervision to perform tasks, To improve ability of physical actions for home/community/work/leisure, To improve gait and locomotor functions, To improve health of tissue, To decrease soft tissue restriction, To increase flexibility/ROM, To improve endurance, To improve balance, To improve safety with gait Therapeutic Exercise to Include: Strength training, Endurance training, Balance training, Body mechanics, Postural training, Flexibilty training, Gait and locomotor training, Neuromotor development, Passive ROM, Active ROM For the Purpose of:: To decrease pain, To decrease swelling/inflammation, To increase ROM, To improve nutrient delivery to tissue, To increase oxygenation perfusion, To improve muscle performance and motor function, To improve ability to perform ADL's, To increase tolerance to activity/condition/position, To improve performance and independence with ADL's, To decrease level of supervision to perform tasks, To improve ability of physical actions for home/community/work/leisure, To improve gait and locomotor functions, To improve health of tissue, To decrease soft tissue restriction, To increase flexibi lity/ROM, To improve endurance, To improve balance, To improve safety with gait, To assume or resume ADL's Functional Training to Include: Gait training For the Purpose of:: To improve gait and locomotor functions, To improve balance, To improve safety with gait Thank you for the opportunity to evaluate your patient. For Medicare and Medicare HMO plans, please review the plan of care and approve it. It will need to be FAXED BACK to us at [phone] for Medicare purposes. For Medicare only, by signing this I certify the plan of care. Please let me know if there are questions or concerns regarding this plan of care. Physician Signature: Date:
--- NOTE | 2023-03-05 11:00 | HP.PTREVAL_ITS ---
Dr. Alvaro Moss MD, It has been my pleasure to treat EVA GONZALEZ over the last 18 visits for L THR and LBP. Please see the progress note below for an update on the physical therapy plan of care! Subjective: Pt reports that this is his last appt. He is ready to start on the H&W side. Objective/Function: Pt is able to heel and toe raise 3/4 normal ROM with slight finger tip for balance. LE MMT: R hip flex 22.9 and L 20.7. R knee ext 28.3 and L 27.2. R knee flex 20.2 and L 19.6. R hip abd 20.2 and L 15.9 Plan Plan: 1 additional visit to work on complete Idep set up for gym routine. 2X/ week for 14 weeks for R hip and LE and core strength. Also work on balance and improvement of gait and stair negotiation with HEP. HEP: bridges, clam shells, standing heel and toe raises. Balance/Gait/Functional tests - Balance/Special Test Scores Functional Gait Assessment Score: 8 % Disability: 73.3400 Lower Extremity Functional Score: 48 Goals Goal 1:: I HEP Goal Time Frame: 8-12 Weeks Goal Progress: Goal Met Goal 2:: Increase LE strength (at time of the eval:LE MMT: R hip flex 15.9 and L 9.8. R knee ext 16.1 and L 16.1. R knee flex 12.6 and L 9. R hip abd 9.1 and L 4.6). Goal Time Frame: 8-12 Weeks Goal Progress: Goal Met Goal 3:: Improve balance (score on FGA was 8) Goal Time Frame: 8-12 Weeks Goal Progress: Progressing Goal 4:: Be able to heel and toe raise X 30 with at leat 3/4 normal ROM and UE support if needed Goal Time Frame: 8-12 Weeks Goal Progress: Goal Met Anticipated Interventions Patient/Client Instruction: Educate patient on: Condition, Plan of Care For the Purpose of:: To decrease pain, To decrease swelling/inflammation, To increase ROM, To improve nutrient delivery to tissue, To improve muscle performance and motor function, To improve ability to perform ADL's, To increase tolerance to activity/condition/position, To improve performance and independence with ADL's, To decrease level of supervision to perform tasks, To improve ability of physical actions for home/community/work/leisure, To improve gait and locomotor functions, To improve health of tissue, To decrease soft tissue restriction, To increase flexibility/ROM, To improve endurance, To improve balance, To improve safety with gait Therapeutic Exercise to Include: Strength training, Endurance training, Balance training, Body mechanics, Postural training, Flexibilty training, Gait and locomotor training, Neuromotor development, Passive ROM, Active ROM For the Purpose of:: To decrease pain, To decrease swelling/inflammation, To in crease ROM, To improve nutrient delivery to tissue, To increase oxygenation perfusion, To improve muscle performance and motor function, To improve ability to perform ADL's, To increase tolerance to activity/condition/position, To improve performance and independence with ADL's, To decrease level of supervision to perform tasks, To improve ability of physical actions for home/community/work/leisure, To improve gait and locomotor functions, To improve health of tissue, To decrease soft tissue restriction, To increase flexibility/ROM, To improve endurance, To improve balance, To improve safety w ith gait, To assume or resume ADL's Functional Training to Include: Gait training For the Purpose of:: To improve gait and locomotor functions, To improve balance, To improve safety with gait Please do not hesitate to contact me at [phone] by phone or if you have questions or concerns regarding this new plan of care! Sincerely, DEB Villalobos
--- NOTE | 2023-04-22 15:24 | HP.PT.NRP ---
Patient Information Patient Information: EVA GONZALEZ was seen in my office for initial evaluation on 11/28/22. The following Plan of Care was established for this patient: POC Established Initial Frequency: 2x /Week Initial Duration: 6 Weeks Anticipated Interventions Patient/Client Instruction: Educate patient on: Condition and Plan of Care For the Purpose of:: To decrease pain, To decrease swelling/inflammation, To increase ROM, To improve nutrient delivery to tissue, To improve muscle performance and motor function, To improve ability to perform ADL's, To increase tolerance to activity/condition/position, To improve performance and independence with ADL's, To decrease level of supervision to perform tasks, To improve ability of physical actions for home/community/work/leisure, To improve gait and locomotor functions, To improve health of tissue, To decrease soft tissue restriction, To increase flexibility/ROM, To improve endurance, To improve balance and To improve safety with gait Therapeutic Exercise to Include: Strength training, Endurance training, Balance training, Body mechanics, Postural training, Flexibilty training, Gait and locomotor training, Neuromotor development, Passive ROM and Active ROM For the Purpose of:: To decrease pain, To decrease swelling/inflammation, To increase ROM, To improve nutrient delivery to tissue, To increase oxygenation perfusion, To improve muscle performance and motor function, To improve ability to perform ADL's, To increase tolerance to activity/condition/position, To improve performance and independence with ADL's, To decrease level of supervision to perform tasks, To improve ability of physical actions for home/community/work/leisure, To improve gait and locomotor functions, To improve health of tissue, To decrease soft tissue restriction, To increase flexibility/ROM, To improve endurance, To improve balance, To improve safety with gait and To assume or resume ADL's Functional Training to Include: Gait training For the Purpose of:: To improve gait and locomotor functions, To improve balance and To improve safety with gait Last Seen Last Seen: This patient was last seen in our office 03/05/23. Pertinent comments regarding their Physical therapy will appear below: Pt did not show up for his last scheduled appt and will be discharged at this time time. Pt was making progress in PT. DC PT At this point I will be discontinuing this patient from physical therapy. I would be happy to see this patient again in the future if found appropriate by the physician. Thank you! Joan Muñoz, MPT Balance/Gait/Functional tests Balance/Special Test Scores Functional Gait Assessment Score: 8 % Disability: 73.3400 Lower Extremity Functional Score: 48
== END 2023-03-05 19:00 | disposition home or self-care (01) ==
LOC: PT 10:30
PROVIDERS: PCP Family Medicine; Referring Provider Specialist; Visit Provider Specialist
DX: Z47.1 Aftercare following joint replacement surgery (principal); Z96.642 Presence of left artificial hip joint; M54.59 Other low back pain
CPT/HCPCS: 97110; 97161

== ENCOUNTER → 2023-03-26 | Outpatient (CLI) | payer MEDICARE, OTHER, SELFPAY ==
[2023-03-26 14:31] LABS: Vitamin D,25 Hydroxy 44.1 ng/mL
[2023-03-26 14:33] LABS: Anion Gap 5 (5-15); BUN 14 mg/dL (7-18); BUN/Creat Ratio 14.9 RATIO (10-20); Calcium,Total 9.7 mg/dL (8.5-10.1); Chloride 110 mmol/L (98-107); Creatinine, Serum 0.94 mg/dL (0.70-1.30); EST Glomerular Filtration Rate 83 mL/min (>60); Est Glom Filt Rate - Afr Amer 100 mL/min (>60); Glucose 121 mg/dL (74-106); Sodium Level 142 mmol/L (136-145); Thyroid Stim Hormone (TSH) 3.27 uIU/mL (0.358-3.74)
== END | disposition home or self-care (01) ==
LOC: PAVLAB 13:09
PROVIDERS: PCP Family Medicine; Referring Provider Internal Medicine Endocrinology, Diabetes & Metabolism; Visit Provider Internal Medicine Endocrinology, Diabetes & Metabolism
DX: E03.8 Other specified hypothyroidism (principal); M81.0 Age-related osteoporosis without current pathological fracture; E55.9 Vitamin D deficiency, unspecified
CPT/HCPCS: 36415; 80048; 82306; 84443

== ENCOUNTER → 2023-04-10 | Outpatient (CLI) | payer MEDICARE, OTHER, SELFPAY ==
--- NOTE | 2023-04-10 11:07 | MRI_ITS ---
EXAM: MR LUMBAR SPINE WITHOUT INTRAVENOUS CONTRAST CLINICAL INDICATION: RADICULOPATHY, lbp TECHNIQUE: Multiplanar and multisequence MR images of the lumbar spine without intravenous contrast. COMPARISON: CT abdomen and pelvis from 07/16/2022 and previous plain film of the lumbar spine from 07/30/2021 FINDINGS: VERTEBRAE: Chronic L3 superior endplate compression deformity. SPINAL CORD: Unremarkable. Normal position and signal intensity of the conus medullaris. SOFT TISSUES: Unremarkable. DISCS/SPINAL CANAL/NEURAL FORAMINA: L1-L2: Mild diffuse disc bulge as well as facet arthropathy and ligamentum flavum thickening, without significant central canal or neural foraminal narrowing. L2-L3: Mild circumferential disc bulge as well as facet arthropathy and ligamentum flavum thickening causing mild central canal stenosis, and severe left neural foraminal narrowing. L3-L4: Moderate circumferential disc bulge as well as facet arthropathy ligamentum flavum thickening causing mild central canal stenosis, moderate bilateral neural foraminal narrowing. L4-L5: Moderate circumferential disc bulge as well as significant facet arthropathy and ligament flavum thickening causing moderate central canal stenosis, moderate right and mild left neural foraminal narrowing. L5-S1: Mild broad-based disc bulge without significant central canal or neural foraminal narrowing. MRI/Spine Lumbar (Routine) IMPRESSION: 1. Multilevel degenerative changes of the lumbar spine as detailed above. 2. Chronic L3 superior endplate compression deformity. Electronically Signed: Raghu Brown MD at 23:48 EDT ,
== END | disposition home or self-care (01) ==
LOC: MRI 11:00
PROVIDERS: PCP Family Medicine; Referring Provider Anesthesiology Pain Medicine; Visit Provider Anesthesiology Pain Medicine
DX: M51.37 Other intervertebral disc degeneration, lumbosacral region (principal); M54.17 Radiculopathy, lumbosacral region
CPT/HCPCS: 72148

== ENCOUNTER 2023-04-14 10:38 | Outpatient (CLI) | payer MEDICARE, OTHER, SELFPAY ==
[2023-04-14] MEDS: DENOSUMAB 60 MG/ML SC (10:48)
[2023-04-14 10:49] VITALS: BP 131/67; PULSE 75; RESP 16; TEMP 35.6; O2SAT 99; BMI 30.6
== END 2023-04-14 10:39 | disposition home or self-care (01) ==
PROVIDERS: PCP Family Medicine; Referring Provider Internal Medicine Endocrinology, Diabetes & Metabolism; Visit Provider Internal Medicine Endocrinology, Diabetes & Metabolism
DX: M81.8 Other osteoporosis without current pathological fracture (principal)
CPT/HCPCS: 96372; J0897

== ENCOUNTER 2023-04-23 10:05 | Outpatient (CLI) | payer MEDICARE, OTHER, SELFPAY ==
[2023-04-23 10:10] VITALS: BP 142/67; PULSE 66; RESP 16; TEMP 36.1; O2SAT 99
[2023-04-23] MEDS: Benralizumab 30 MG/ML Syringe SC (10:18)
== END 2023-04-23 10:06 | disposition home or self-care (01) ==
LOC: MEDOUTP 10:06
PROVIDERS: PCP Family Medicine; Referring Provider Nurse Practitioner Acute Care; Visit Provider Nurse Practitioner Acute Care
DX: J45.50 Severe persistent asthma, uncomplicated (principal)
CPT/HCPCS: 96372; J0517

== ENCOUNTER → 2023-06-03 | Outpatient (CLI) | payer MEDICARE, OTHER, SELFPAY | END | disposition home or self-care (01) | LOC: BFHLAB 13:05 | PROVIDERS: PCP Family Medicine; Referring Provider Family Medicine; Visit Provider Family Medicine | DX: Z12.5 Encounter for screening for malignant neoplasm of prostate (principal) | CPT/HCPCS: 36415; 84153; G0103 ==

== ENCOUNTER 2023-06-30 12:15 | Outpatient (CLI) | payer MEDICARE, OTHER, SELFPAY ==
[2023-06-30 12:27] VITALS: BP 131/75; PULSE 71; RESP 16; TEMP 36.6; O2SAT 98; BMI 29.8
[2023-06-30] MEDS: Benralizumab 30 MG/ML Syringe SC (12:30)
== END 2023-06-30 12:16 | disposition home or self-care (01) ==
LOC: MEDOUTP 12:15
PROVIDERS: PCP Family Medicine; Referring Provider Nurse Practitioner Acute Care; Visit Provider Nurse Practitioner Acute Care
DX: J45.50 Severe persistent asthma, uncomplicated (principal)
CPT/HCPCS: 96372; J0517

== ENCOUNTER → 2023-07-15 | Outpatient (CLI) | payer MEDICARE, OTHER, SELFPAY ==
--- NOTE | 2023-07-15 07:45 | CT_ITS ---
STUDY: CT ABDOMEN AND PELVIS WITHOUT CONTRAST REASON FOR EXAM: Male, 78 years old. URGENGENY OF URINATION RADIATION DOSAGE (If Supplied By Facility): CTDIvol = ( 13.41 ) mGy, DLP = ( 713.45 ) mGycm TECHNIQUE: Transaxial images were obtained from the dome of the diaphragm to the symphysis pubis without oral contrast, and without intravenous contrast. Sagittal and coronal images were reconstructed. Individualized dose optimization techniques were used for this CT. COMPARISON: . FINDINGS: The visualized lung bases are unremarkable. The visualized portions of the heart are within normal limits. Small low-attenuation structures within the liver, largest seen within the left liver lobe near the liver hilum measuring 1.5 cm, stable in the interval and most compatible with benign process such as liver cysts. There is non-visualization of the gallbladder, which may be secondary to either contraction or a prior cholecystectomy. Normal spleen. Normal pancreas. Normal bilateral adrenal glands. Normal right kidney. Multiple left peripelvic low-attenuation structures, largest measuring 2.5 cm consistent with peripelvic cysts. Otherwise normal left kidney. Tiny hiatal hernia otherwise stomach is unremarkable. Normal small intestine. There are multiple colonic diverticula consistent with diverticulosis. This is more significant along the sigmoid. The appendix is visualized and appears normal. There is minimal atherosclerotic calcification of the abdominal aorta, without a demonstrated aneurysm. Normal inferior vena cava. Small lymph node in the right retrocrural region measuring 1.5 x 1.5 cm, clinical significance indeterminate. Remainder of the retroperitoneum unremarkable. There is a right posterior urinary bladder diverticulum. Remainder of the urinary bladder unremarkable. Remainder of the pelvic organs are partially obscured by beam hardening artifact related to the left hip prosthesis. There is scarring involving the abdominal wall at the lower pelvis/inguinal region suggestive of previous surgery. In addition, there are postoperative changes from ventral hernia repair throughout the mid upper abdomen. Diffuse osteopenia with multilevel degenerative disease throughout the spine. Degenerative arthrosis of the right hip, bilateral SI joints noted. CT/Abdomen/Pelvis without Cont IMPRESSION: Nonspecific left-sided peripelvic simple renal cysts. Right posterolateral urinary bladder diverticulum, otherwise no intrarenal stone or hydronephrosis seen. Minimal hiatal hernia. Diverticulosis with no signs of diverticulitis. No acute appendicitis or bowel obstruction. Electronically Signed: Kathi Vanegas MD at 16:56 EDT ,
== END | disposition home or self-care (01) ==
LOC: CT 07:41
PROVIDERS: PCP Family Medicine; Visit Provider Urology
DX: R35.0 Frequency of micturition (principal); R39.15 Urgency of urination
CPT/HCPCS: 74176

== ENCOUNTER 2023-08-24 14:51 | Outpatient (CLI) | payer MEDICARE, OTHER, SELFPAY ==
[2023-08-24 15:03] VITALS: BP 134/78; PULSE 75; RESP 18; TEMP 35.9; O2SAT 98
[2023-08-24] MEDS: Benralizumab 30 MG/ML Syringe SC (15:07)
== END 2023-08-24 14:52 | disposition home or self-care (01) ==
LOC: MEDOUTP 14:51
PROVIDERS: PCP Family Medicine; Referring Provider Nurse Practitioner Acute Care; Visit Provider Nurse Practitioner Acute Care
DX: J45.50 Severe persistent asthma, uncomplicated (principal)
CPT/HCPCS: 96372; J0517

== ENCOUNTER 2023-09-17 08:30 | Outpatient (RCR) | payer MEDICARE, OTHER, SELFPAY ==
[2023-08-27 09:13] VITALS: BP 142/97; PULSE 64; RESP 18; TEMP 35.8; BMI 28.8
--- NOTE | 2023-08-27 10:55 | HP.PCM_ITS ---
History of Present Illness Date of Service: 08/27/23 Chief Complaint: Left medial ankle wound History of Wound: Patient is a 78-year-old male who presents to the wound care center with recurring left lower extremity medial ankle wound. He has PMHx of recurring left lower extremity ulceration secondary to chronic venous insufficiency, history of DVT, obesity, JOSHUA, iron deficient anemia, delayed wound healing, and asthma. He states that he does have compression stockings but his stockings are old. States that approximately 2-1/2 months ago this ulceration did open again to the medial ankle and has been unable to progress in healing. He was placed on oral antibiotics, cephalexin, and is finishing antibiotic course. Has been applying topical ointments to the wound daily with dressing changes. He did follow with his primary care who did refer him to the wound center due to nonhealing ulceration. He denies trauma to the site. States that the specific site is recurrent with breakdown of skin. Denies N/V/F/chills. No further complaints. [facility] Medical History (Updated 08/27/23 @ 13:[address] Merrill Burns, DPM) 2012 femur fracture [facility] Asthma Celiac disease DVT (deep venous thrombosis) Fatigue GERD (gastroesophageal reflux disease) History of back problems Iron deficiency anemia Lab test positive for detection of COVID-19 virus (~04/2020) Left femoral shaft fracture JOSHUA (obstructive sleep apnea) Osteopenia Restless leg syndrome Weight loss Home Medications pantoprazole 40 mg tablet,delayed release 40 mg PO QHS gerd 04/03/14 [History Last Taken 07/15/17] tamsulosin 0.4 mg capsule 0.4 mg PO QHS Enlarged prostate 07/12/17 [History Last Taken 07/15/17] ibuprofen 200 mg capsule 200 mg PO BID PRN Pain 09/10/18 [History Last Taken Unknown] ergocalciferol (vitamin D2) 1,250 mcg (50,000 unit) capsule 50,000 unit PO WE 10/21/19 [History Last Taken Unknown] benralizumab 30 mg/mL subcutaneous syringe (Fasenra) 30 mg subcut Q4W #1 mL 12/28/20 [Rx Last Taken Unknown] levothyroxine 50 mcg tablet 100 mcg PO DAILY 03/21/22 [History Last Taken Unknown] albuterol sulfate 90 mcg/actuation aerosol inhaler 1 - 2 puff inhalation Q4H PRN PRN Sob &/Or Wheezing #8.5 grams 03/25/22 [Rx Last Taken Unknown] budesonide-formoterol HFA 160 mcg-4.5 mcg/actuation aerosol inhaler (Symbicort) 2 puff inhalation BID #1 ea 03/25/22 [Rx Last Taken Unknown] fluticasone propionate 50 mcg/actuation nasal spray,suspension 2 spray NASAL BID PRN Congestion #16 grams 03/25/22 [Rx Last Taken Unknown] montelukast 10 mg tablet 10 mg PO DAILY #30 tabs 03/25/22 [Rx Last Taken Unknown] timolol 0.5 % eye drops (Betimol) 1 drp EACH EYE BID 08/27/23 [History Last Taken Unknown] Allergy/AdvReac Type Severity Reaction Status Date / Time gluten AdvReac Other Verified 08/24/23 15:05 Family History Father prostate cancer Surgical History (Updated 05/15/22 @ 17:16 by Yadira Johnson) colonoscopy History of cholecystectomy History of colonoscopy (~09/24/20) History of esophagogastroduodenoscopy (EGD) (~09/24/20) History of hernia repair History of repair of hip fracture History of spinal surgery Social History Smoking Status: Former smoker alcohol intake: never substance use type: does not use ROS Constitutional Constitutional: Denies anorexia, chills, fatigue or fever(s) Eyes Eyes: Denies blurry vision, change in vision or double vision ENT HEENT: Denies dysphagia, nasal congestion, nasal discharge or sore throat Cardiovascular Cardiovascular: Denies chest pain, fatigue or palpitations Respiratory/Chest Respiratory/Chest: Denies cough or shortness of breath at rest Gastrointestinal Gastrointestinal: Denies abdominal pain, constipation, diarrhea, hematochezia, nausea or vomiting Genitourinary Genitourinary: Denies dysuria or hematuria Musculoskeletal Musculoskeletal: Denies joint pain, joint stiffness or joint swelling Integumentary Integumentary: Denies lesions, pruritus or rash Neurologic Neurologic: Denies dizziness, numbness or seizures Psychiatric Psychiatric: Denies depression Endocrine Endocrinology: Denies cold intolerance or heat intolerance Hematologic/Lymphatic Hematologic/Lymphatic: Denies easy bleeding or easy bruising Vital Signs Vital Signs Vital Signs: 08/27/23 09:13 Temperature 96.5 F L Temperature Source Temporal Pulse Rate 64 Respiratory Rate 18 Blood Pressure 142/97 H Blood Pressure Mean 112 Blood Pressure Source Monitor Weight Weight: 99.159 kg Body Mass Index (BMI) 28.8 Physical Exam Const alert, oriented x3 and no apparent distress General Appearance: cooperative HEENT normocephalic Eyes Eyes Narrative: Wears glasses General Eye: normal appearance of both eyes Neck General: normal visual inspection Lymph Lymphatic: no lymphadenopathy noted and no lymphedema noted Resp normal respiratory effort Cardio regular rate and regular rhythm Extremity normal capillary refill, no joint enlargement, no calf tenderness and no pedal edema Extremity Narrative: Vascular: DP and PT pulses weakly palpable. Capillary fill time to the digits is 5 seconds. Normal temperature gradient. There is absent hair growth to the digits noted. Dermatological: There is ulceration noted to the medial aspect of the left lower extremity/ankle with necrotic eschar and thick fibrous tissue. Wound base does appear to be dry. Ulceration is noted to be overlying the neurovascular bundle. Negative Stemmer sign left foot. There is evidence of stasis dermatitis with hyperpigmentation/hemosiderin staining of the left lower extremity. Musculoskeletal: Muscle strength 5 of 5 age-appropriate. Skin no jaundice General Skin Exam: venous stasis and dermatitis Neuro moves all extremities Debridement Note Debridement Note Wound debrided: Left medial ankle Laterality: Left Wound Grade/Stage: Cisneros stage II Type of Debridement: Excisional debridement Anesthesia Used: 5% Lidocaine Gel and - (10 cc 1% lidocaine plain) Depth: Down to and including healthy tissue and in the subcutaneous layer Percentage of wound debrided: 100 Instrument Used: 5mm curette Tissue Removed: Fibrous, devitalized subcutaneous, biofilm, slough Severity: Fat Layer Exposed Amount of bleeding with debridement: Mild Bleeding Controlled with: Compression and gauze Patient tolerated procedure: Patient tolerated procedure well Post-Debridement Measurements and Additional Note: Post-Debridement Measurements/Treatment - Nurse 1 - General Ulcer Assessment Start: 08/27/23 09:10 Freq: Status: Active Protocol: ANAYA Activity Type Activity Date Activity User E-sign Co-sign Detail Recorded Client Recorded Date Recorded By Document 08/27/23 09:13 DL Desktop 08/27/23 09:30 DL 08/27/23 09:13 WC - Today's Visit Information Type of service Initial Visit Arrival Mode Ambulatory Transfer Assistance None Patient Identification Verified (Name & Yes ) Patient Requires Transmission-Based No Precautions Height and Weight Height 6 ft 1 in Weight 99.159 kg Weight in Pounds 218.6 lbs Body Mass Index (BMI) 28.8 BMI Classification Overweight BSA - Francois 2.23 Vital Signs Temperature (97.8 F-99.1 F) 96.5 F L Temperature Source Temporal Pulse Rate (60-100) 64 Pulse Location Monitor Respiratory Rate (12-18) 18 Respiratory rate source Observation Blood Pressure (90/60-120/80) 142/97 H Blood Pressure Mean 112 Source Monitor Pain Scale: 0-10 Numeric Is Patient Pain Free? Yes Lower Extremity Assessment/ Foot Assessment/ Toe Nail Assessment Left -Posterior Tibial Palpable Yes -Posterior Tibial Doppler Multiphasic -Dorsalis Pedis Palpable No -Dorsalis Pedis Doppler Multiphasic -Extremity Color Hyperpigmented, Hemosiderin -Hair Growth on Legs No -Hair Growth on Toes No -Temperature of Extremity Warm -Capillary Refill Greater than 3 Seconds -Dependent Rubor No -Blanched when Elevated No -Lipodermatosclerosis No -Other Deformity No -Prior Foot Ulcer No -Charcot Joint No -Prior Amputation No -Thick Yes -Discolored Yes -Deformed Yes -Improper Length & Hygeine No Right -Posterior Tibial Palpable No -Posterior Tibial Doppler Multiphasic -Dorsalis Pedis Palpable Yes -Dorsalis Pedis Doppler Multiphasic -Extremity Color Hyperpigmented, Hemosiderin -Hair Growth on Legs No -Hair Growth on Toes No -Temperature of Extremity Warm -Capillary Refill Greater than 3 Seconds -Dependent Rubor No -Blanched when Elevated No -Lipodermatosclerosis No -Other Deformity No -Prior Foot Ulcer No -Charcot Joint No -Prior Amputation No -Thick Yes -Discolored Yes -Deformed Yes -Improper Length & Hygeine No Neuropathy Assessment Feet - Top Side and Bottom <Entered> (a) Communication Assessment Preferred language Luxembourgish Able to Read Yes Able to Write Yes Right Hearing Abillity Use of Hearing Aid Left Hearing Abillity Use of Hearing Aid Visual Assistive Devices Glasses Teaching Assessment Preferences Verbal,Written, Demonstration Functional Assessment Recent Decline in Ability to Perform Denies Any Declines Culture/Protestant/Planning And Analysis Manager Cultural/Protestant Needs that may affect No Treatment Plan Would you allow our hospital donor recruitment manager to No meet you for the purpose of spiritual/ emotional support? Planning And Analysis Manager to contact place of roman catholic No Teaching: Wound Center *Welcome to the Wound Center -Person Taught Patient (kamilla) 1 - + WC - Nurse 1 - General Ulcer Measurement Start: 08/27/23 09:10 Freq: Status: Active Protocol: Activity Type Activity Date Activity User E-sign Co-sign Detail Recorded Client Recorded Date Recorded By Document 08/27/23 09:13 DL Desktop 08/27/23 09:30 DL 08/27/23 09:13 Wound Center Nurse 1 #1 L Med Ankle -Current Size (cm) - Length 2.8 -Current Size (cm) - Width 4 -Current Size (cm) - Depth 0.8 -Total Square Cm 11.2 -Photo Taken Yes -Exudate Amt Medium -Exudate Type Serosanguineous -Wound Margin Thickened & Rolled Under -Granulation Amt None Present (0 %) -Necrosis Amt Large (67-100%) -Necrotic Tissue Type Adherent Slough -Structure Exposed N/A -Texture (Megan-wound Skin Appearance) Localized Edema ,Scarring,Rash -Moisture (Megan-wound Skin Appearance) No Abnormality -Color (Megan-wound Skin Appearance) Erythema, Hemosiderin Staining -Temperature (Megan-wound Skin No Abnormality Appearance) (Pt Warm) -Tenderness on Palpation (Megan-wound No Skin Appearance) -Ulcer Cleansing Soap and Water -Foul Odor after Cleansing No -Anesthetic Used 5% Lidocaine Gel Left Calf (cm) 40 Left Ankle (cm) 23.8 Assessment/Plan Assessment/Plan (1) Obesity: CODE(S): E66.9 - Obesity, unspecified (2) Iron deficiency anemia: CODE(S): D50.9 - Iron deficiency anemia, unspecified (3) Venous insufficiency (chronic) (peripheral): CODE(S): I87.2 - Venous insufficiency (chronic) (peripheral) (4) Non-pressure chronic ulcer of left ankle with necrosis of muscle: CODE(S): L97.323 - Non-pressure chronic ulcer of left ankle with necrosis of muscle (5) Delayed wound healing: CODE(S): T14.8XXD - Other injury of unspecified body region, subsequent encounter PLAN: Plan Patient seen and evaluated Left lower extremity: There is ulceration noted to the medial aspect of the left lower extremity/ankle with necrotic eschar and thick fibrous tissue. Wound base does appear to be dry. Ulceration is noted to be overlying the neurovascular bundle. Negative Stemmer sign left foot. There is evidence of stasis dermatitis with hyperpigmentation/hemosiderin staining of the left lower extremity. Ulceration underwent debridement as noted in the clinical panel above. Ulceration measures 2.5 cm x 3.7 cm x 0.5 cm. No signs of infection. Liliana applied to the wound base and dressed with Aquacel Ag and dry sterile dressing. A 3M compression wrap was applied to the left lower extremity. Patient was instructed to not get the dressing wet. I discussed continued elevation of the lower extremity at all times of rest to aid in edema control. I discussed once ulceration is healed he is to return to a prescription based compression stocking. Discussed updating stockings every 6 to 9 months to ensure proper uniform compression to treat his chronic venous insufficiency and to reduce recidivism of wound. Discussed importance of serial debridement to aid in wound healing. We will seek application for EpiFix advanced wound product for application at next visit. Discussed proper diet to increase protein intake to aid in wound healing. Recommended Vladimir supplementation. Discussed reducing foods with salty content to aid in edema control. Discussed avoidance of prolonged standing or legs dangling over side of chair/bed. Discussed with patient the depth of the ulcerative site and close proximity to the neurovascular bundle. Discussed with him signs and symptoms of infection. Discussed if he notices redness about the ulcerative site moving up the leg, purulent drainage from the wound site, foul increasing odor from the wound, or if he experiences fever greater than 101 degree, nausea, vomiting, chills/rigor, that these are signs of progressing infection and he should report to the ED to receive IV antibiotics. Patient and voiced understanding of this. The following work up and care recommendations were made: Dressing: Liliana/Aquacel AG, dry sterile dressing, 3M compression wrap left lower extremity. Wash: Do not get wet Tissue growth optimization: Liliana/Aquacel AG Offload: To ensure no pressure to the medial ankle/hindfoot Vascular: DP and PT pulses palpable with adequate capillary fill to digits. Edema: Discussed elevation of lower extremities at times of rest. 3M compression wrap placed. Infection: No signs of infection. Patient currently finishing oral cephalexin. Encouraged to take antibiotic to completion. Pain: May take Tylenol extra strength for discomfort Host factors: Chronic venous insufficiency I answered all the patient's questions. To return to the wound healing center in 1 week or call sooner if the patient has any questions or concerns.
[2023-08-31 08:13] VITALS: BP 110/79; PULSE 75; RESP 16; TEMP 35.8; BMI 28.8
--- NOTE | 2023-09-02 09:23 | ART_ITS ---
Reason For Study: PVD Procedure A bilateral lower extremity continuous wave Doppler with analog waveform analysis,segmental pressures,and ankle brachial indexes without exercise. Left Segmental Pressures Left brachial= 152mmHg. Left posterior tibial artery = 194mmHg. Left dorsalis pedis artery = 209mmHg. Left digit = 196 mmHg. The left posterior tibial artery waveforms are triphasic. The left dorsalis pedis waveforms are triphasic. Right Segmental Pressures Right brachial= 148mmHg. Right posterior tibial artery = 199mmHg. Right dorsalis pedis artery = 194mmHg. Right digit = 165 mmHg. The right posterior tibial artery waveforms are triphasic. The right dorsalis pedis waveforms are triphasic. Indices The right ankle brachial index by the posterior tibial artery is 1.31. The right ankle brachial index by the dorsalis pedis is 1.28. The right digital-brachial index is 1.09. The left ankle brachial index by the posterior tibial artery is 1.28. The left ankle brachial index by the dorsalis pedis is 1.38. The left digital-brachial index is 1.29. VL/Lower Ext Art Exam w/o Exercis Interpretation Summary Right RONEN 1.31, normal. TBI and Doppler/PVR waveforms of the right leg normal a t rest. Left RONEN 1.38, normal. TBI and Doppler/PVR waveforms of the left leg normal at rest. Ordering Physician: Merrill Burns Referring Physician: Keven Joseph Performed By: Joss Harden RVT
--- NOTE | 2023-09-02 09:23 | VDLE_ITS ---
Reason For Study: PVD RIGHT LEFT CFV is compressible, spontaneous, phasic, CFV is compressible, spontaneous, phasic, competent and demonstrates normal competent, and demonstrates normal augmentation. augmentation. FV is compressible, spontaneous, phasic, FV is compressible, spontaneous, phasic, competent and demonstrates normal competent and demonstrates normal augmentation. augmentation. POP V is compressible, phasic, and POP V is compressible, phasic, and INCOMPETENT for greater than 1.0 second. INCOMPETENT for greater than 1.0 second. T/P Trunk is compressible. T/P Trunk is compressible. PTV is compressible. PTV is compressible. RT PerV is compressible. LT PerV is compressible. SFJ is competent and measures 0.69 cm. SFJ is INCOMPETENT and measures 0.77 cm. GSV proximal thigh measures 0.42 x 0.43 cm. GSV proximal thigh measures 0.67 x 0.56 cm. GSV at knee measures 0.38 x 0.44 cm. GSV at knee measures 0.45 x 0.42 cm. GSV above knee is competent. SSV proximal calf is competent and measures GSV below knee is INCOMPETENT for greater 0.16 x 0.20 cm. than 0.5 seconds. SSV proximal calf is competent and measures 0.41 x 0.42 cm. Procedure This is a venous duplex using B-mode, color flow and spectral Doppler. Exam performed in department. The exam was diagnostic. VL/Venous Duplex US - Jose Daniel Extrem Interpretation Summary Deep veins of the bilateral lower extremities are patent and compressible segme ntally. There is no evidence of bilateral lower extremity deep vein thrombosis. The bilateral great saphenous veins appear patent and compressible segmentally. Positive for reflux in the right popliteal vein, great saphenous vein Positive for reflux in the left popliteal vein, saphenofemoral junction Ordering Physician: Merrill Bursn Referring Physician: Keven Joseph Performed By: Joss Harden RVT
[2023-09-02 09:53] LABS: Absolute Lymphocyte Count 0.58 X10^3/uL (0.83-4.51); Absolute Neutrophil Count 2.2 X10^3/uL (2.0-7.7); Basophil# 0.01 X10^3/uL; Basophil% 0.3 % (0-1); Hematocrit 35.7 % (40-54); Hemoglobin 11.2 g/dL (13.0-16.5); Lymphocyte # 0.58 X10^3/ul (0.83-4.51); Lymphocyte % 17.6 % (19-41); Mean Corp Hgb Conc 31.4 g/dL (32-36); Mean Corpuscular Hgb 30.9 pg (27.0-32.0); Mean Corpuscular Volume 98.6 fL (80-94); Mean Platelet Vol. 9.5 fl (6.2-12.0); Monocyte# 0.46 X10^3/uL; NRBC Flagged by Analyzer 0 % (0-5); Neutrophil # 2.23 X10^3/uL (2.7-7.7); Neutrophil % 67.8 % (47-70); POSITIVE DIFFERENTIAL YES; Platelet Count 233 K/mm3 (150-450); RBC Distribution Width CV 14.4 % (11.6-14.6); RBC Distribution Width SD 51.8 fl (35.1-43.9); Red Blood Count 3.62 M/mm3 (4.6-6.2); White Blood Count 3.3 K/mm3 (4.4-11.0)
[2023-09-02 09:59] LABS: Differential Indicated SCAN CRITERIA MET
[2023-09-02 10:00] LABS: Partial Thromboplast Time 27.6 Seconds (24.1-36.2)
[2023-09-02 10:06] LABS: Prothrombin Time (Protime)PT. 13.7 SECONDS (11.7-14.9)
[2023-09-02 10:28] LABS: ALB/GLOB Ratio 0.9 RATIO (0.9-2.4); AST(SGOT) 25 U/L (15-37); Alanine Aminotransfer ALT/SGPT 33 U/L (16-61); Albumin, Serum 3.5 g/dL (3.2-5.0); Alkaline Phosphatase 93 U/L (45-117); Anion Gap 8 (5-15); BUN 15 mg/dL (7-18); BUN/Creat Ratio 18.3 RATIO (10-20); Calcium,Total 8.3 mg/dL (8.5-10.1); Chloride 109 mmol/L (98-107); Creatinine, Serum 0.82 mg/dL (0.70-1.30); EST Glomerular Filtration Rate 97 mL/min (>60); Est Glom Filt Rate - Afr Amer 117 mL/min (>60); Estimated Creatinine Clearance 85.26 ml/min; Free T3 2.3 pg/mL (2.18-3.98); Globulin 3.7 g/dL (2.2-4.2); Glucose 111 mg/dL (74-106); Potassium 3.7 mmol/L (3.5-5.1); Prealbumin 19.5 mg/dL (20.0-40.0); Protein, Total 7.2 g/dL (6.4-8.2); Sodium Level 145 mmol/L (136-145); T4 Free Direct 1.03 ng/dL (0.76-1.46); T4 Total, Thyroxin 8.4 ug/dL (4.5-12.1); Thyroid Stim Hormone (TSH) 3.82 uIU/mL (0.358-3.74)
[2023-09-02 11:08] LABS: Differential Comment SCANNED
[2023-09-03 08:25] VITALS: BP 146/69; PULSE 69; RESP 16; TEMP 36; BMI 28.8
--- NOTE | 2023-09-03 10:00 | PN.PCM_ITS ---
History of Present Illness Date of Service: 09/03/23 Chief Complaint: Left medial ankle wound History of Wound: Patient is a 78-year-old male who presents to the wound care center with recurring left lower extremity medial ankle wound. He has PMHx of recurring left lower extremity ulceration secondary to chronic venous insufficiency, history of DVT, obesity, JOSHUA, iron deficient anemia, delayed wound healing, and asthma. He states that he does have compression stockings but his stockings are old. States that approximately 2-1/2 months ago this ulceration did open again to the medial ankle and has been unable to progress in healing. He was placed on oral antibiotics, cephalexin, and is finishing antibiotic course. Has been applying topical ointments to the wound daily with dressing changes. He did follow with his primary care who did refer him to the wound center due to nonhealing ulceration. He denies trauma to the site. States that the specific site is recurrent with breakdown of skin. Denies N/V/F/chills. No further complaints. 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 Patient states that the compression wrapping has made his legs feel better. He does admit to continued drainage of the wound site. States that he did get his vascular studies performed yesterday. Denies constitutional symptoms. Denies further complaints. Objective Data Objective Data Vital Signs: Vital Signs Temp Pulse Resp BP O2 Del Method 96.8 F L 69 16 146/69 H Room Air 09/03/23 08:25 09/03/23 08:25 09/03/23 08:25 09/03/23 08:25 08/31/23 08:13 Oxygen Delivery Method Room Air Weight: 99.159 kg Body Mass Index (BMI) 28.8 Lab / Micro Data 09/02/23 09:10 09/02/23 09:10 Labs: Laboratory Results - last 24 hr 09/02/23 09:10: Differential Comment SCANNED, Diff Path Review February foll, PT 13.7, INR 1.0, APTT 27.6, Sodium 145, Potassium 3.7, Chloride 109 H, Carbon Dioxide 28.0, Anion Gap 8, BUN 15, Creatinine 0.82, Estim Creat Clear Calc 85.26, Est GFR (MDRD) Af Amer 117, Est GFR (MDRD) Non-Af 97, BUN/Creatinine Ratio 18.3, Glucose 111 H, Calcium 8.3 L, Total Bilirubin 0.30, AST 25, ALT 33, Alkaline Phosphatase 93, Total Protein 7.2, Albumin 3.5, Globulin 3.7, Albumin/Globulin Ratio 0.9, Prealbumin 19.5 L, TSH 3.82 H, Free T4 1.03, Thyroxine (T4) 8.4, Free T3 pg/dL 2.3 Physical Exam Const alert, oriented x3 and no apparent distress General Appearance: cooperative HEENT normocephalic Eyes Eyes Narrative: Wears glasses General Eye: normal appearance of both eyes Neck General: normal visual inspection Lymph Lymphatic: no lymphadenopathy noted and no lymphedema noted Resp normal respiratory effort Cardio regular rate and regular rhythm Extremity normal capillary refill, no joint enlargement, no calf tenderness and no pedal edema Extremity Narrative: Vascular: DP and PT pulses weakly palpable. Capillary fill time to the digits is 5 seconds. Normal temperature gradient. There is absent hair growth to the digits noted. Dermatological: There is ulceration noted to the medial aspect of the left lower extremity/ankle with mixed fibrotic/granular tissue with serosanguineous drainage. Ulceration is noted to be overlying the neurovascular bundle. Negative Stemmer sign left foot. There is evidence of stasis dermatitis with hyperpigmentation/hemosiderin staining of the left lower extremity. Musculoskeletal: Muscle strength 5 of 5 age-appropriate. Skin no jaundice General Skin Exam: venous stasis and dermatitis Neuro moves all extremities Debridement Note Debridement Note Wound debrided: Left medial ankle Laterality: Left Wound Grade/Stage: Cisneros stage II Type of Debridement: Excisional debridement Anesthesia Used: 5% Lidocaine Gel and - (10 cc 1 % lidocaine plain) Depth: Down to and including healthy tissue and in the subcutaneous layer Percentage of wound debrided: 100 Instrument Used: 5mm curette Tissue Removed: Fibrous, devitalized subcutaneous, biofilm, slough Severity: Fat Layer Exposed Amount of bleeding with debridement: Mild Bleeding Controlled with: Compression and gauze Patient tolerated procedure: Patient tolerated procedure well Post-Debridement Measurements and Additional Note: Post-Debridement Measurements/Treatment LA NENA - Nurse 1 - General Ulcer Assessment Start: 08/27/23 09:10 Freq: Status: Active Protocol: ANAYA Activity Type Activity Date Activity User E-sign Co-sign Detail Recorded Client Recorded Date Recorded By Document 08/27/23 09:13 DL Desktop 08/27/23 09:30 DL Document 08/31/23 08:13 BMF Desktop 08/31/23 08:14 BMF Document 09/03/23 08:25 NRL Desktop 09/03/23 08:37 NRL 08/27/23 08/31/23 09/03/23 09:13 08:13 08:25 WC - Today's Visit Information Type of service Initial Visit Nurse-only Follow-up Visit Visit (Physician/[facility] RN ) Arrival Mode Ambulatory Ambulatory Ambulatory Transfer Assistance None None Patient Identification Verified (Name & Yes Yes Yes ) Patient Requires Transmission-Based No No Precautions Height and Weight Height 6 ft 1 in Weight 99.159 kg Weight in Pounds 218.6 lbs Body Mass Index (BMI) 28.8 28.8 28.8 BMI Classification Overweight Overweight Overweight BSA - Francois 2.23 Vital Signs Temperature (97.8 F-99.1 F) 96.5 F L 96.5 F L 96.8 F L Temperature Source Temporal Temporal Temporal Pulse Rate (60-100) 64 75 69 Pulse Location Monitor Monitor Monitor Respiratory Rate (12-18) 18 16 16 Respiratory rate source Observation Observation Observation Oxygen Delivery Method Room Air Blood Pressure (90/60-120/80) 142/97 H 110/79 146/69 H Blood Pressure Mean (mm Hg) 112 89 94 Source Monitor Monitor Monitor Position Sitting Sitting Blood Pressure Location Left Forearm Left Arm History Since Last Visit- (Skip if this is Patient's initial visit) Have you changed medications since your No No last visit? Any new allergies or adverse reactions No No Had a fall/change in ADL's that may No No increase risk of falls Signs or symptoms of abuse and/or No No neglect since last visit Have you been in the hospital since your No No last visit? Has dressing in place as prescribed Yes Yes Has compression in place as prescribed Yes Yes Has offloadiing in place as prescribed N/A N/A Experienced any changes in pain level or No No management Left Footwear Regular Shoe Regular Shoe Right Footwear Regular Shoe Regular Shoe Pain Scale: 0-10 Numeric Is Patient Pain Free? Yes Yes Yes Lower Extremity Assessment/ Foot Assessment/ Toe Nail Assessment Left -Posterior Tibial Palpable Yes -Posterior Tibial Doppler Multiphasic -Dorsalis Pedis Palpable No -Dorsalis Pedis Doppler Multiphasic -Extremity Color Hyperpigmented, Hemosiderin -Hair Growth on Legs No -Hair Growth on Toes No -Temperature of Extremity Warm -Capillary Refill Greater than 3 Seconds -Dependent Rubor No -Blanched when Elevated No -Lipodermatosclerosis No -Other Deformity No -Prior Foot Ulcer No -Charcot Joint No -Prior Amputation No -Thick Yes -Discolored Yes -Deformed Yes -Improper Length & Hygeine No Right -Posterior Tibial Palpable No -Posterior Tibial Doppler Multiphasic -Dorsalis Pedis Palpable Yes -Dorsalis Pedis Doppler Multiphasic -Extremity Color Hyperpigmented, Hemosiderin -Hair Growth on Legs No -Hair Growth on Toes No -Temperature of Extremity Warm -Capillary Refill Greater than 3 Seconds -Dependent Rubor No -Blanched when Elevated No -Lipodermatosclerosis No -Other Deformity No -Prior Foot Ulcer No -Charcot Joint No -Prior Amputation No -Thick Yes -Discolored Yes -Deformed Yes -Improper Length & Hygeine No Neuropathy Assessment Feet - Top Side and Bottom <Entered> (a) Communication Assessment Preferred language Bulgarian Able to Read Yes Able to Write Yes Right Hearing Abillity Use of Hearing Aid Left Hearing Abillity Use of Hearing Aid Visual Assistive Devices Glasses Teaching Assessment Preferences Verbal,Written, Demonstration Functional Assessment Recent Decline in Ability to Perform Denies Any Declines Culture/Muslim/Collection Administrator Cultural/Muslim Needs that may affect No Treatment Plan Would you allow our hospital hosting engineer to No meet you for the purpose of spiritual/ emotional support? Collection Administrator to contact place of confucianist No Teaching: Wound Center *Welcome to the Wound Center -Person Taught Patient (a) 1 - + WC - Nurse 1 - General Ulcer Measurement Start: 08/27/23 09:10 Freq: Status: Active Protocol: Activity Type Activity Date Activity User E-sign Co-sign Detail Recorded Client Recorded Date Recorded By Document 08/27/23 09:13 DL Desktop 08/27/23 09:30 DL Document 08/31/23 08:13 BMF Desktop 08/31/23 08:14 BMF Document 09/03/23 08:25 NRL Desktop 09/03/23 08:37 NRL 08/27/23 08/31/23 09/03/23 09:13 08:13 08:25 Wound Center Nurse 1 #1 L Med Ankle -Combined with other wound No -Current Size (cm) - Length 2.8 -Current Size (cm) - Width 4 -Current Size (cm) - Depth 0.8 -Total Square Cm 11.2 -Photo Taken Yes -Epithelialization Small 1-33% -Undermining/Tunneling No -Circular Undermining No -Exudate Amt Medium Large -Exudate Type Serosanguineous Serosanguineous -Wound Margin Thickened & Distinct, Rolled Under Outline Attached -Granulation Amt None Present (0 Small (1-33%) %) -Granulation Quality [place] -Necrosis Amt Large (67-100%) Medium (34-66%) -Necrotic Tissue Type Adherent Slough Adherent Slough -Structure Exposed N/A -Texture (Megan-wound Skin Appearance) Localized Edema Assessed ,Scarring,Rash -Moisture (Megan-wound Skin Appearance) No Abnormality Assessed -Color (Megan-wound Skin Appearance) Erythema, Assessed Hemosiderin Staining -Temperature (Megan-wound Skin No Abnormality No Abnormality Appearance) (Pt Warm) (Pt Warm) -Tenderness on Palpation (Megan-wound No No Skin Appearance) -Ulcer Cleansing Soap and Water Wound Cleanser -Foul Odor after Cleansing No No -Anesthetic Used 5% Lidocaine 5% Lidocaine Gel Gel Lower Limb Edema Present Yes Yes Left Calf (cm) 40 42.4 40.5 Left Ankle (cm) 23.8 24.5 29.3 WC - Nurse 2 - General Ulcer CM Notes Start: 08/27/23 09:10 Freq: Status: Active Protocol: Activity Type Activity Date Activity User E-sign Co-sign Detail Recorded Client Recorded Date Recorded By Document 08/27/23 17:03 [id number] 08/27/23 17:04 PL 08/27/23 17:03 Wound Center Nurse 2 #1 L Med Ankle -Time 10:32 -Correct Patient Yes -Correct Side, Site, Position Yes -Correct Procedure Yes -Procedure Performed Yes -Type of Procedure Debridement -Clinical Debridement Subcutaneous -Tissue Removed Subcutaneous -Post Debridement (cm) - Length 2.5 -Post Debridement (cm) - Width 3.7 -Post Debridement (cm) - Depth 0.5 -Total Square (Post) (cm) 9.25 -Area of Debridement (cm) - Length 2.5 -Area of Debridement (cm) - Width 3.7 -Total Square (Area) (cm) 9.25 -Tunneling No -Undermining/Tunneling No -Circular Undermining No -Wound/Ulcer Outcome Not Healed -Ulcer Cleansing Rinsed/ Irrigated with Saline -Foul Odor after Cleansing No -Bioengineered Tissue No -Bleeding Controlled with Pressure -Treatment Response Procedure Tolerated Well -Debridement - Subq, 1st 20sq cm Yes Pain Scale: 0-10 Numeric Is Patient Pain Free? Yes - Nurse 3 - General Ulcer D/C NN Start: 08/27/23 09:10 Freq: Status: Active Protocol: Activity Type Activity Date Activity User E-sign Co-sign Detail Recorded Client Recorded Date Recorded By Document 08/27/23 10:58 KW Desktop 08/27/23 10:58 KW Document 08/31/23 08:14 [facility] Desktop 08/31/23 08:17 [facility] Document 09/03/23 09:24 NRL Desktop 09/03/23 09:27 NRL 08/27/23 08/31/23 09/03/23 10:58 08:14 09:24 Wound Care Center Nurse 3 #1 L Med Ankle -Ulcer Cleansing Rinsed/ Soap and Water Wound Cleanser Irrigated with Saline -Foul Odor after Cleansing No No -Primary Dressing Applied Aquacel AG 4x4, Aquacel AG 2x2, Coban: 2 Layer Promogran Promogran System,Optilok Liliana Matter Liliana Matter 6.5x10 -Other Dressing abd -Primary Dressing Covered/Secured with Dry Gauze & Dry Gauze Roll Gauze, Secured with Tape -Other Covering per gm rn -Aquacel AG 2x2 1 -Aquacel AG 4x4 1 -Coban: 2 Layer System 1 -Optilok 6.5x10 1 -Promogran Liliana Matter 1 1 Left -Multi-Layered Wrap Application Multi-Layer Multi-Layer Comp - Left ($) Comp - Left ($) -Other applied per gm rn Treatment Response Procedure Tolerated Well Pain Scale: 0-10 Numeric Is Patient Pain Free? Yes Yes Yes WC - Visit Discharge Discharge Condition Stable Stable Stable Ambulatory Status Ambulatory Ambulatory Ambulatory Transportation Private Auto Private Auto Private Auto Accompanied by Medication Reconcilliation completed & No Yes provided to patient/care provider Clinical Summary of Care Provided Yes Yes Notes: PT ARRIVED WITHOUT APPT. CONCERNED THAT 3M WRAP WAS CAUSING DISCOMFORT. 3M WAS IN PLACE, CONSULTED CM PL , DID REMOVE AND APPLY ANOTHER. PT TO CALL IF ANY OTHER ISSUES. ENCOURAGED TO ELEVATE LEGS OFTEN POSSIBLE. PT STATED HE DID FEEL RELIEF W/ REMOVAL OF 3M . Assessment/Plan Assessment/Plan (1) Obesity: CODE(S): E66.9 - Obesity, unspecified (2) Iron deficiency anemia: CODE(S): D50.9 - Iron deficiency anemia, unspecified (3) Venous insufficiency (chronic) (peripheral): CODE(S): I87.2 - Venous insufficiency (chronic) (peripheral) (4) Non-pressure chronic ulcer of left ankle with necrosis of muscle: CODE(S): L97.323 - Non-pressure chronic ulcer of left ankle with necrosis of muscle (5) Delayed wound healing: CODE(S): T14.8XXD - Other injury of unspecified body region, subsequent encounter PLAN: Plan Patient seen and evaluated Left lower extremity: There is ulceration noted to the medial aspect of the left lower extremity/ankle with mixed fibrogranular tissue with some serosanguineous drainage. Ulceration is noted to be overlying the neurovascular bundle. Negative Stemmer sign left foot. There is evidence of stasis dermatitis with hyperpigmentation/hemosiderin staining of the left lower extremity. Ulceration underwent debridement as noted in the clinical panel above. Ulceration measures 2.9 cm x 4.0 cm x 0.5 cm. No signs of infection. EpiFix graft #1 applied to wound bed and dressed with Adaptic touch and anchored with Steri-Strips. A Suprasorb dressing was applied then followed by a 3M compression wrap applied to the left lower extremity. Patient was instructed to not get the dressing wet. I discussed continued elevation of the lower extremity at all times of rest to aid in edema control. I discussed once ulceration is healed he is to return to a prescription based compression stocking. Discussed updating stockings every 6 to 9 months to ensure proper uniform compression to treat his chronic venous insufficiency and to reduce recidivism of wound. Discussed importance of serial debridement to aid in wound healing. He was approved for application of EpiFix advanced wound product, we will continue applications. Discussed proper diet to increase protein intake to aid in wound healing. Recommended Vladimir supplementation. Discussed reducing foods with salty content to aid in edema control. Discussed avoidance of prolonged standing or legs dangling over side of chair/bed. Discussed with patient the depth of the ulcerative site and close proximity to the neurovascular bundle. Discussed with him signs and symptoms of infection. Discussed if he notices redness about the ulcerative site moving up the leg, purulent drainage from the wound site, foul increasing odor from the wound, or if he experiences fever greater than 101 degree, nausea, vomiting, chills/rigor, that these are signs of progressing infection and he should report to the ED to receive IV antibiotics. Patient and voiced understanding of this. The following work up and care recommendations were made: Dressing: EpiFix, Adaptic touch, Steri-Strips, Suprasorb, 3M compression wrap left lower extremity. Wash: Do not get wet Tissue growth optimization: EpiFix Offload: To ensure no pressure to the medial ankle/hindfoot Vascular: DP and PT pulses palpable with adequate capillary fill to digits. Edema: Discussed elevation of lower extremities at times of rest. 3M compression wrap placed. Infection: No signs of infection. Patient currently finishing oral cephalexin. Encouraged to take antibiotic to completion. Pain: May take Tylenol extra strength for discomfort Host factors: Chronic venous insufficiency I answered all the patient's questions. To return to the wound healing center in 2 weeks or call sooner if the patient has any questions or concerns.
[2023-09-07 09:40] LABS: Pathologist Review Reviewed
[2023-09-07 11:30] VITALS: BP 155/78; PULSE 78; TEMP 36.2; BMI 28.8
[2023-09-17 08:21] VITALS: BP 138/78; PULSE 77; RESP 18; TEMP 36.4; BMI 28.8
--- NOTE | 2023-09-17 09:20 | PCM.WC.PN ---
History of Present Illness Date of Service: 09/17/23 Chief Complaint: Left medial ankle wound History of Wound: Patient is a 78-year-old male who presents to the wound care center with recurring left lower extremity medial ankle wound. He has PMHx of recurring left lower extremity ulceration secondary to chronic venous insufficiency, history of DVT, obesity, JOSHUA, iron deficient anemia, delayed wound healing, and asthma. He states that he does have compression stockings but his stockings are old. States that approximately 2-1/2 months ago this ulceration did open again to the medial ankle and has been unable to progress in healing. He was placed on oral antibiotics, cephalexin, and is finishing antibiotic course. Has been applying topical ointments to the wound daily with dressing changes. He did follow with his primary care who did refer him to the wound center due to nonhealing ulceration. He denies trauma to the site. States that the specific site is recurrent with breakdown of skin. Denies N/V/F/chills. No further complaints. 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 Patient states that the compression wrapping has made his legs feel better. He does admit to continued drainage of the wound site and states it completely soaks his dressing in a day or two. Admits he has been on feet for work even with compression dressing, states he did not want to bother calling in the last two days for dressing change, admits to some odor due to drainage. Denies constitutional symptoms. Denies further complaints. Objective Data Objective Data Vital Signs: Vital Signs Temp Pulse Resp BP O2 Del Method 97.6 F L 77 18 138/78 H Room Air 09/17/23 08:21 09/17/23 08:21 09/17/23 08:21 09/17/23 08:21 09/07/23 11:30 Oxygen Delivery Method Room Air Weight: 99.159 kg Body Mass Index (BMI) 28.8 Lab / Micro Data 09/02/23 09:10 09/02/23 09:10 Physical Exam Const alert, oriented x3 and no apparent distress General Appearance: cooperative HEENT normocephalic Eyes Eyes Narrative: Wears glasses General Eye: normal appearance of both eyes Neck General: normal visual inspection Lymph Lymphatic: no lymphadenopathy noted and no lymphedema noted Resp normal respiratory effort Cardio regular rate and regular rhythm Extremity normal capillary refill, no joint enlargement, no calf tenderness and no pedal edema Extremity Narrative: Vascular: DP and PT pulses weakly palpable. Capillary fill time to the digits is 5 seconds. Normal temperature gradient. There is absent hair growth to the digits noted. Dermatological: There is ulceration noted to the medial aspect of the left lower extremity/ankle with mixed fibrotic/granular tissue with serosanguineous drainage. Ulceration is noted to be overlying the neurovascular bundle. Negative Stemmer sign left foot. There is evidence of stasis dermatitis with hyperpigmentation/hemosiderin staining of the left lower extremity. Musculoskeletal: Muscle strength 5 of 5 age-appropriate. Skin no jaundice General Skin Exam: venous stasis and dermatitis Neuro moves all extremities Debridement Note Debridement Note Wound debrided: Left medial ankle Laterality: Left Wound Grade/Stage: Cisneros stage II Type of Debridement: Excisional debridement Anesthesia Used: 5% Lidocaine Gel and - (10 cc 1% lidocaine plain) Depth: Down to and including healthy tissue and in the subcutaneous layer Percentage of wound debrided: 100 Instrument Used: 5mm curette Tissue Removed: Fibrous, devitalized subcutaneous, biofilm, slough Severity: Fat Layer Exposed Amount of bleeding with debridement: Mild Bleeding Controlled with: Compression and gauze Patient tolerated procedure: Patient tolerated procedure well Post-Debridement Measurements and Additional Note: Post-Debridement Measurements/Treatment - Nurse 1 - General Ulcer Assessment Start: 08/27/23 09:10 Freq: Status: Active Protocol: LA NENA.JESUS Activity Type Activity Date Activity User E-sign Co-sign Detail Recorded Client Recorded Date Recorded By Document 08/27/23 09:13 DL Desktop 08/27/23 09:30 DL Document 08/31/23 08:13 BMF Desktop 08/31/23 08:14 BMF Document 09/03/23 08:25 NRL Desktop 09/03/23 08:37 NRL Document 09/07/23 11:30 GM Desktop 09/07/23 11:35 GM Document 09/17/23 08:21 PL Tablet 09/17/23 08:29 PL 08/27/23 08/31/23 09/03/23 09:13 08:13 08:25 - Today's Visit Information Type of service Initial Visit Nurse-only Follow-up Visit Visit (Physician/SORTING MACHINE ATTENDANT ) Arrival Mode Ambulatory Ambulatory Ambulatory Transfer Assistance None None Patient Identification Verified (Name & Yes Yes Yes ) Patient Requires Transmission-Based No No Precautions Safety Precautions Height and Weight Height 6 ft 1 in Weight 99.159 kg Weight in Pounds 218.6 lbs Body Mass Index (BMI) 28.8 28.8 28.8 BMI Classification Overweight Overweight Overweight BSA - Francois 2.23 Vital Signs Temperature (97.8 F-99.1 F) 96.5 F L 96.5 F L 96.8 F L Temperature Source Temporal Temporal Temporal Pulse Rate (60-100) 64 75 69 Pulse Location Monitor Monitor Monitor Respiratory Rate (12-18) 18 16 16 Respiratory rate source Observation Observation Observation Oxygen Delivery Method Room Air Blood Pressure (90/60-120/80) 142/97 H 110/79 146/69 H Blood Pressure Mean (mm Hg) 112 89 94 Source Monitor Monitor Monitor Position Sitting Sitting Blood Pressure Location Left Forearm Left Arm History Since Last Visit- (Skip if this is Patient's initial visit) Have you changed medications since your No No last visit? Any new allergies or adverse reactions No No Had a fall/change in ADL's that may No No increase risk of falls Signs or symptoms of abuse and/or No No neglect since last visit Have you been in the hospital since your No No last visit? Has dressing in place as prescribed Yes Yes Has compression in place as prescribed Yes Yes Has offloadiing in place as prescribed N/A N/A Experienced any changes in pain level or No No management Left Footwear Regular Shoe Regular Shoe Right Footwear Regular Shoe Regular Shoe Pain Scale: 0-10 Numeric Is Patient Pain Free? Yes Yes Yes Lower Extremity Assessment/ Foot Assessment/ Toe Nail Assessment Left -Posterior Tibial Palpable Yes -Posterior Tibial Doppler Multiphasic -Dorsalis Pedis Palpable No -Dorsalis Pedis Doppler Multiphasic -Extremity Color Hyperpigmented, Hemosiderin -Hair Growth on Legs No -Hair Growth on Toes No -Temperature of Extremity Warm -Capillary Refill Greater than 3 Seconds -Dependent Rubor No -Blanched when Elevated No -Lipodermatosclerosis No -Other Deformity No -Prior Foot Ulcer No -Charcot Joint No -Prior Amputation No -Thick Yes -Discolored Yes -Deformed Yes -Improper Length & Hygeine No Right -Posterior Tibial Palpable No -Posterior Tibial Doppler Multiphasic -Dorsalis Pedis Palpable Yes -Dorsalis Pedis Doppler Multiphasic -Extremity Color Hyperpigmented, Hemosiderin -Hair Growth on Legs No -Hair Growth on Toes No -Temperature of Extremity Warm -Capillary Refill Greater than 3 Seconds -Dependent Rubor No -Blanched when Elevated No -Lipodermatosclerosis No -Other Deformity No -Prior Foot Ulcer No -Charcot Joint No -Prior Amputation No -Thick Yes -Discolored Yes -Deformed Yes -Improper Length & Hygeine No Neuropathy Assessment Feet - Top Side and Bottom <Entered> (a) Communication Assessment Preferred language Sinhala Able to Read Yes Able to Write Yes Right Hearing Abillity Use of Hearing Aid Left Hearing Abillity Use of Hearing Aid Visual Assistive Devices Glasses Teaching Assessment Preferences Verbal,Written, Demonstration Functional Assessment Recent Decline in Ability to Perform Denies Any Declines Culture/Jain/Ovens Supervisor Cultural/Jain Needs that may affect No Treatment Plan Would you allow our hospital information technology specialist to No meet you for the purpose of spiritual/ emotional support? Ovens Supervisor to contact place of protestant No Teaching: Wound Center Drainage -Person Taught -Teaching Method -Response to teaching *Welcome to the Wound Center -Person Taught Patient 09/07/23 09/17/23 11:30 08:21 WC - Today's Visit Information Type of service Nurse-only Follow-up Visit Visit (Physician/SORTING MACHINE ATTENDANT ) Arrival Mode Ambulatory Ambulatory Transfer Assistance None None Patient Identification Verified (Name & Yes Yes ) Patient Requires Transmission-Based No No Precautions Safety Precautions NA NA Height and Weight Height Weight Weight in Pounds Body Mass Index (BMI) 28.8 28.8 BMI Classification Overweight Overweight BSA - Francois Vital Signs Temperature (97.8 F-99.1 F) 97.1 F L 97.6 F L Temperature Source Temporal Temporal Pulse Rate (60-100) 78 77 Pulse Location Monitor Respiratory Rate (12-18) 18 Respiratory rate source Oxygen Delivery Method Room Air Blood Pressure (90/60-120/80) 155/78 H 138/78 H Blood Pressure Mean (mm Hg) 103 98 Source Monitor Position Sitting Blood Pressure Location Left Arm History Since Last Visit- (Skip if this is Patient's initial visit) Have you changed medications since your No No last visit? Any new allergies or adverse reactions No No Had a fall/change in ADL's that may No No increase risk of falls Signs or symptoms of abuse and/or No No neglect since last visit Have you been in the hospital since your No No last visit? Has dressing in place as prescribed Yes Yes Has compression in place as prescribed Yes Yes Has offloadiing in place as prescribed No N/A Experienced any changes in pain level or No No management Left Footwear Right Footwear Pain Scale: 0-10 Numeric Is Patient Pain Free? Yes Yes Lower Extremity Assessment/ Foot Assessment/ Toe Nail Assessment Left -Posterior Tibial Palpable -Posterior Tibial Doppler -Dorsalis Pedis Palpable -Dorsalis Pedis Doppler -Extremity Color -Hair Growth on Legs -Hair Growth on Toes -Temperature of Extremity -Capillary Refill -Dependent Rubor -Blanched when Elevated -Lipodermatosclerosis -Other Deformity -Prior Foot Ulcer -Charcot Joint -Prior Amputation -Thick -Discolored -Deformed -Improper Length & Hygeine Right -Posterior Tibial Palpable -Posterior Tibial Doppler -Dorsalis Pedis Palpable -Dorsalis Pedis Doppler -Extremity Color -Hair Growth on Legs -Hair Growth on Toes -Temperature of Extremity -Capillary Refill -Dependent Rubor -Blanched when Elevated -Lipodermatosclerosis -Other Deformity -Prior Foot Ulcer -Charcot Joint -Prior Amputation -Thick -Discolored -Deformed -Improper Length & Hygeine Neuropathy Assessment Feet - Top Side and Bottom Communication Assessment Preferred language Able to Read Able to Write Right Hearing Abillity Left Hearing Abillity Visual Assistive Devices Teaching Assessment Preferences Functional Assessment Recent Decline in Ability to Perform Culture/Jain/Ovens Supervisor Cultural/Jain Needs that may affect Treatment Plan Would you allow our hospital information technology specialist to meet you for the purpose of spiritual/ emotional support? Ovens Supervisor to contact place of protestant Teaching: Wound Center Drainage -Person Taught Patient -Teaching Method Discussion -Response to teaching Verbalize understanding *Welcome to the Wound Center -Person Taught (a) 1 - + WC - Nurse 1 - General Ulcer Measurement Start: 08/27/23 09:10 Freq: Status: Active Protocol: Activity Type Activity Date Activity User E-sign Co-sign Detail Recorded Client Recorded Date Recorded By Document 08/27/23 09:13 DL Desktop 08/27/23 09:30 DL Document 08/31/23 08:13 BMF Desktop 08/31/23 08:14 BMF Document 09/03/23 08:25 NRL Desktop 09/03/23 08:37 NRL Document 09/07/23 11:30 GM Desktop 09/07/23 11:35 GM 08/27/23 08/31/23 09/03/23 09:13 08:13 08:25 Wound Center Nurse 1 #1 L Med Ankle -Combined with other wound No -Current Size (cm) - Length 2.8 -Current Size (cm) - Width 4 -Current Size (cm) - Depth 0.8 -Total Square Cm 11.2 -Photo Taken Yes -Epithelialization Small 1-33% -Undermining/Tunneling No -Circular Undermining No -Exudate Amt Medium Large -Exudate Type Serosanguineous Serosanguineous -Wound Margin Thickened & Distinct, Rolled Under Outline Attached -Granulation Amt None Present (0 Small (1-33%) %) -Granulation Quality [place] -Necrosis Amt Large (67-100%) Medium (34-66%) -Necrotic Tissue Type Adherent Slough Adherent Slough -Structure Exposed N/A -Texture (Megan-wound Skin Appearance) Localized Edema Assessed ,Scarring,Rash -Moisture (Megan-wound Skin Appearance) No Abnormality Assessed -Color (Megan-wound Skin Appearance) Erythema, Assessed Hemosiderin Staining -Temperature (Megan-wound Skin No Abnormality No Abnormality Appearance) (Pt Warm) (Pt Warm) -Tenderness on Palpation (Megan-wound No No Skin Appearance) -Ulcer Cleansing Soap and Water Wound Cleanser -Foul Odor after Cleansing No No -Anesthetic Used 5% Lidocaine 5% Lidocaine Gel Gel Lower Limb Edema Present Yes Yes Left Calf (cm) 40 42.4 40.5 Left Ankle (cm) 23.8 24.5 29.3 09/07/23 11:30 Wound Center Nurse 1 #1 L Med Ankle -Combined with other wound No -Current Size (cm) - Length -Current Size (cm) - Width -Current Size (cm) - Depth -Total Square Cm -Photo Taken -Epithelialization -Undermining/Tunneling -Circular Undermining -Exudate Amt -Exudate Type -Wound Margin -Granulation Amt -Granulation Quality -Necrosis Amt -Necrotic Tissue Type -Structure Exposed -Texture (Megan-wound Skin Appearance) -Moisture (Megan-wound Skin Appearance) -Color (Megan-wound Skin Appearance) -Temperature (Megan-wound Skin Appearance) -Tenderness on Palpation (Megan-wound Skin Appearance) -Ulcer Cleansing -Foul Odor after Cleansing -Anesthetic Used Lower Limb Edema Present Left Calf (cm) 38.5 Left Ankle (cm) 22.4 WC - Nurse 2 - General Ulcer CM Notes Start: 08/27/23 09:10 Freq: Status: Active Protocol: Activity Type Activity Date Activity User E-sign Co-sign Detail Recorded Client Recorded Date Recorded By Document 08/27/23 17:03 PL [id number] 08/27/23 17:04 PL Document 09/03/23 16:11 PL [id number] 09/03/23 16:13 PL 08/27/23 09/03/23 17:03 16:11 Wound Center Nurse 2 #1 L Med Ankle -Time 10:32 09:00 -Correct Patient Yes Yes -Correct Side, Site, Position Yes Yes -Correct Procedure Yes Yes -Procedure Performed Yes Yes -Type of Procedure Debridement Debridement -Clinical Debridement Subcutaneous Subcutaneous -Tissue Removed Subcutaneous Subcutaneous -Post Debridement (cm) - Length 2.5 2.9 -Post Debridement (cm) - Width 3.7 4.0 -Post Debridement (cm) - Depth 0.5 0.5 -Total Square (Post) (cm) 9.25 11.60 -Area of Debridement (cm) - Length 2.5 2.9 -Area of Debridement (cm) - Width 3.7 4.0 -Total Square (Area) (cm) 9.25 11.60 -Tunneling No No -Undermining/Tunneling No No -Circular Undermining No No -Wound/Ulcer Outcome Not Healed Not Healed -Ulcer Cleansing Rinsed/ Rinsed/ Irrigated with Irrigated with Saline Saline -Foul Odor after Cleansing No No -Bioengineered Tissue No Yes -Type of Bioengineered Tissue Epifix Mesh -Expiration Date 04/18/28 -Product Lot Number [id number] -Percent Used 100 -Bleeding Controlled with Pressure Pressure -Treatment Response Procedure Procedure Tolerated Well Tolerated Well -Debridement - Subq, 1st 20sq cm Yes No -Apply Skin Sub - 1st 25 sq cm - Legs 1 -Epifix Mesh (per sq cm) 11 Pain Scale: 0-10 Numeric Is Patient Pain Free? Yes Yes WC - Nurse 3 - General Ulcer D/C NN Start: 08/27/23 09:10 Freq: Status: Active Protocol: Activity Type Activity Date Activity User E-sign Co-sign Detail Recorded Client Recorded Date Recorded By Document 08/27/23 10:58 KW Desktop 08/27/23 10:58 KW Document 08/31/23 08:14 BMF Desktop 08/31/23 08:17 BM Document 09/03/23 09:24 NRL Desktop 09/03/23 09:27 NRL Document 09/07/23 11:30 Desktop 09/07/23 11:35 08/27/23 08/31/23 09/03/23 10:58 08:14 09:24 Wound Care Center Nurse 3 #1 L Med Ankle -Ulcer Cleansing Rinsed/ Soap and Water Wound Cleanser Irrigated with Saline -Foul Odor after Cleansing No No -Primary Dressing Applied Aquacel AG 4x4, Aquacel AG 2x2, [place]: 2 Layer Promogran Promogran System,Optilok Liliana Matter Liliana Matter 6.5x10 -Other Dressing abd -Primary Dressing Covered/Secured with Dry Gauze & Dry Gauze Roll Gauze, Secured with Tape -Other Covering per gm rn -Aquacel AG 2x2 1 -Aquacel AG 4x4 1 -[place]an: 2 Layer System 1 -Optilok 6.5x10 1 -Promogran Liliana Matter 1 1 Left -Lotion applied to leg before compression wrap -Multi-Layered Wrap Application Multi-Layer Multi-Layer Comp - Left ($) Comp - Left ($) -Other applied per gm rn Treatment Response Procedure Tolerated Well Vital Signs Temperature (97.8 F-99.1 F) Temperature Source Pulse Rate (60-100) Pulse Location Oxygen Delivery Method Blood Pressure (90/60-120/80) Blood Pressure Mean (mm Hg) Source Position Blood Pressure Location Pain Scale: 0-10 Numeric Is Patient Pain Free? Yes Yes Yes Teaching: Wound Center Drainage -Person Taught -Teaching Method -Response to teaching WC - Visit Discharge Discharge Condition Stable Stable Stable Ambulatory Status Ambulatory Ambulatory Ambulatory Transportation Private Auto Private Auto Private Auto Accompanied by Medication Reconcilliation completed & No Yes provided to patient/care provider Clinical Summary of Care Provided Yes Yes Notes: PT ARRIVED WITHOUT APPT. CONCERNED THAT 3M WRAP WAS CAUSING DISCOMFORT. 3M WAS IN PLACE, CONSULTED CM PL , DID REMOVE AND APPLY ANOTHER. PT TO CALL IF ANY OTHER ISSUES. ENCOURAGED TO ELEVATE LEGS OFTEN POSSIBLE. PT STATED HE DID FEEL RELIEF W/ REMOVAL OF 3M . 09/07/23 11:30 Wound Care Center Nurse 3 #1 L Med Ankle -Ulcer Cleansing Soap and Water -Foul Odor after Cleansing No -Primary Dressing Applied Optilok 6.5x10 -Other Dressing -Primary Dressing Covered/Secured with -Other Covering -Aquacel AG 2x2 -Aquacel AG 4x4 -[place]: 2 Layer System -Optilok 6.5x10 1 -Promogran Liliana Matter Left -Lotion applied to leg before No compression wrap -Multi-Layered Wrap Application Multi-Layer Comp - Left ($) -Other Treatment Response Vital Signs Temperature (97.8 F-99.1 F) 97.1 F L Temperature Source Temporal Pulse Rate (60-100) 78 Pulse Location Monitor Oxygen Delivery Method Room Air Blood Pressure (90/60-120/80) 155/78 H Blood Pressure Mean (mm Hg) 103 Source Monitor Position Sitting Blood Pressure Location Left Arm Pain Scale: 0-10 Numeric Is Patient Pain Free? Yes Teaching: Wound Center Drainage -Person Taught Patient -Teaching Method Discussion -Response to teaching Verbalize understanding WC - Visit Discharge Discharge Condition Stable Ambulatory Status Ambulatory Transportation Private Auto Accompanied by Medication Reconcilliation completed & No provided to patient/care provider Clinical Summary of Care Provided No Notes: Assessment/Plan Assessment/Plan (1) Obesity: CODE(S): E66.9 - Obesity, unspecified (2) Iron deficiency anemia: CODE(S): D50.9 - Iron deficiency anemia, unspecified (3) Venous insufficiency (chronic) (peripheral): CODE(S): I87.2 - Venous insufficiency (chronic) (peripheral) (4) Non-pressure chronic ulcer of left ankle with necrosis of muscle: CODE(S): L97.323 - Non-pressure chronic ulcer of left ankle with necrosis of muscle (5) Delayed wound healing: CODE(S): T14.8XXD - Other injury of unspecified body region, subsequent encounter PLAN: Plan Patient seen and evaluated Left lower extremity: There is ulceration noted to the medial aspect of the left lower extremity/ankle with mixed fibrogranular tissue with some serosanguineous drainage. Ulceration is noted to be overlying the neurovascular bundle. Negative Stemmer sign left foot. There is evidence of stasis dermatitis with hyperpigmentation/hemosiderin staining of the left lower extremity. Ulceration underwent debridement as noted in the clinical panel above. Ulceration measures 3.0 cm x 4.5 cm x 0.7 cm. No signs of infection. Skin maceration present but overall wound is granulating in well. EpiFix graft #2 applied to wound bed and dressed with Adaptic touch and anchored with Steri-Strips. A Suprasorb dressing was applied then followed by a 3M compression wrap applied to the left lower extremity. Patient was instructed to not get the dressing wet. Discussed if he soaks through dressing to call and return for new dressing/compression wrap application. Due to increased drainage from graft I am placing him on oral Augmentin 875mg BID x 14 days as precaution. I discussed continued elevation of the lower extremity at all times of rest to aid in edema control. I discussed once ulceration is healed he is to return to a prescription based compression stocking. Discussed updating stockings every 6 to 9 months to ensure proper uniform compression to treat his chronic venous insufficiency and to reduce recidivism of wound. LEAS performed 09/02/23 demonstrates right RONEN 1.31, normal. TBI and Doppler/PVR waveforms of right leg normal at rest; left RONEN 1.38, normal. TBI and Doppler/PVR waveforms of the left leg normal at rest. Venous studies performed 09/02/2023 demonstrates no evidence of bilateral lower extremity DVT. Bilateral great saphenous veins appear patent and compressible segmentally. Positive for reflux right popliteal vein, great saphenous vein in. Positive for reflux left popliteal vein, saphenofemoral junction. Discussed importance of serial debridement to aid in wound healing. He was approved for application of EpiFix advanced wound product, we will continue applications. Discussed proper diet to increase protein intake to aid in wound healing. Recommended Vladimir supplementation. Discussed reducing foods with salty content to aid in edema control. Discussed avoidance of prolonged standing or legs dangling over side of chair/bed. Discussed with patient the depth of the ulcerative site and close proximity to the neurovascular bundle. Discussed with him signs and symptoms of infection. Discussed if he notices redness about the ulcerative site moving up the leg, purulent drainage from the wound site, foul increasing odor from the wound, or if he experiences fever greater than 101 degree, nausea, vomiting, chills/rigor, that these are signs of progressing infection and he should report to the ED to receive IV antibiotics. Patient and voiced understanding of this. The following work up and care recommendations were made: Dressing: EpiFix, Adaptic touch, Steri-Strips, Suprasorb, 3M compression wrap left lower extremity. Wash: Do not get wet Tissue growth optimization: EpiFix Offload: To ensure no pressure to the medial ankle/hindfoot Vascular: DP and PT pulses palpable with adequate capillary fill to digits. Edema: Discussed elevation of lower extremities at times of rest. 3M compression wrap placed. Infection: No signs of infection. Patient currently finishing oral cephalexin. Encouraged to take antibiotic to completion. Pain: May take Tylenol extra strength for discomfort Host factors: Chronic venous insufficiency I answered all the patient's questions. To return to the wound healing center in 1 week or call sooner if the patient has any questions or concerns.
== END 2023-09-17 23:59 | disposition home or self-care (01) ==
LOC: WC 08:30
PROVIDERS: PCP Family Medicine; Referring Provider Family Medicine; Visit Provider Student in an Organized Health Care Education/Training Program
DX: L97.323 Non-pressure chronic ulcer of left ankle with necrosis of muscle (principal); I73.9 Peripheral vascular disease, unspecified; D50.9 Iron deficiency anemia, unspecified; L53.9 Erythematous condition, unspecified; G62.9 Polyneuropathy, unspecified; Z86.16 Personal history of COVID-19; R60.0 Localized edema; Z87.891 Personal history of nicotine dependence; R21 Rash and other nonspecific skin eruption; I87.2 Venous insufficiency (chronic) (peripheral); T14.8XXD Other injury of unspecified body region, subsequent encounter; G47.33 Obstructive sleep apnea (adult) (pediatric); J45.909 Unspecified asthma, uncomplicated; Z86.718 Personal history of other venous thrombosis and embolism; E66.9 Obesity, unspecified; Z68.28 Body mass index [BMI] 28.0-28.9, adult
CPT/HCPCS: 11042; 15271; 29581; 36415; 80053; 84134; 84436; 84439; 84443; 84481; 85025; 85610; 85730; 93923; 93970; 99213; Q4186; G0463

== ENCOUNTER → 2023-10-05 | Outpatient (CLI) | payer MEDICARE, OTHER, SELFPAY ==
[2023-10-05 12:15] LABS: Anion Gap 5 (5-15); BUN 19 mg/dL (7-18); BUN/Creat Ratio 23.1 RATIO (10-20); Chloride 115 mmol/L (98-107); Creatinine, Serum 0.82 mg/dL (0.70-1.30); EST Glomerular Filtration Rate 96 mL/min (>60); Est Glom Filt Rate - Afr Amer 117 mL/min (>60); Glucose 86 mg/dL (74-106); Potassium 3.7 mmol/L (3.5-5.1); Sodium Level 145 mmol/L (136-145); Thyroid Stim Hormone (TSH) 1.79 uIU/mL (0.358-3.74)
== END | disposition home or self-care (01) ==
LOC: PAVLAB 10:47
PROVIDERS: PCP Family Medicine; Referring Provider Internal Medicine Endocrinology, Diabetes & Metabolism; Visit Provider Internal Medicine Endocrinology, Diabetes & Metabolism
DX: E03.9 Hypothyroidism, unspecified (principal); E55.9 Vitamin D deficiency, unspecified
CPT/HCPCS: 36415; 80048; 82306; 84443

== ENCOUNTER 2023-10-15 09:15 | Outpatient (RCR) | payer MEDICARE, OTHER, SELFPAY ==
[2023-09-18 00:50] VITALS: BP 138/78; PULSE 77; RESP 18; TEMP 36.4; BMI 28.8
[2023-09-24 11:14] VITALS: BP 141/76; PULSE 67; RESP 18; TEMP 35.9; BMI 28.8
--- NOTE | 2023-09-24 15:20 | PCM.WC.PN ---
History of Present Illness Date of Service: 09/24/23 Chief Complaint: Left medial ankle wound History of Wound: Patient is a 78-year-old male who presents to the wound care center with recurring left lower extremity medial ankle wound. He has PMHx of recurring left lower extremity ulceration secondary to chronic venous insufficiency, history of DVT, obesity, JOSUHA, iron deficient anemia, delayed wound healing, and asthma. He states that he does have compression stockings but his stockings are old. States that approximately 2-1/2 months ago this ulceration did open again to the medial ankle and has been unable to progress in healing. He was placed on oral antibiotics, cephalexin, and is finishing antibiotic course. Has been applying topical ointments to the wound daily with dressing changes. He did follow with his primary care who did refer him to the wound center due to nonhealing ulceration. He denies trauma to the site. States that the specific site is recurrent with breakdown of skin. Denies N/V/F/chills. No further complaints. 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 Patient states that the compression wrapping has made his legs feel better. He states he is also having less pain. He does admit to continued drainage of the wound site and states still soaks his dressing after a few days. Denies constitutional symptoms. Denies further complaints. Objective Data Objective Data Vital Signs: Vital Signs Temp Pulse Resp BP O2 Del Method 96.7 F L 67 18 141/76 H Room Air 09/24/23 11:14 09/24/23 11:14 09/24/23 11:14 09/24/23 11:14 09/24/23 11:14 Oxygen Delivery Method Room Air Weight: 99.159 kg Body Mass Index (BMI) 28.8 Physical Exam Const alert, oriented x3 and no apparent distress General Appearance: cooperative HEENT normocephalic Eyes Eyes Narrative: Wears glasses General Eye: normal appearance of both eyes Neck General: normal visual inspection Lymph Lymphatic: no lymphadenopathy noted and no lymphedema noted Resp normal respiratory effort Cardio regular rate and regular rhythm Extremity normal capillary refill, no joint enlargement and no pedal edema Extremity Narrative: Vascular: DP and PT pulses weakly palpable. Capillary fill time to the digits is 5 seconds. Normal temperature gradient. There is absent hair growth to the digits noted. Dermatological: There is ulceration noted to the medial aspect of the left lower extremity/ankle with mixed fibrotic/granular tissue with serosanguineous drainage. Ulceration is noted to be overlying the neurovascular bundle. Negative Stemmer sign left foot. There is evidence of stasis dermatitis with hyperpigmentation/hemosiderin staining of the left lower extremity. Musculoskeletal: Muscle strength 5 of 5 age-appropriate. Skin no rashes or lesions noted, skin turgor normal and no jaundice General Skin Exam: venous stasis and dermatitis Neuro moves all extremities Debridement Note Debridement Note Wound debrided: Left medial ankle Laterality: Left Wound Grade/Stage: Cisneros stage II Type of Debridement: Excisional debridement Anesthesia Used: 5% Lidocaine Gel and - (10 cc 1% lidocaine plain) Depth: Down to and including healthy tissue and in the subcutaneous layer Percentage of wound debrided: 100 Instrument Used: 5mm curette Tissue Removed: Fibrous, devitalized subcutaneous, biofilm, slough Severity: Fat Layer Exposed Amount of bleeding with debridement: Mild Bleeding Controlled with: Compression and gauze Patient tolerated procedure: Patient tolerated procedure well Post-Debridement Measurements and Additional Note: Post-Debridement Measurements/Treatment WC - Nurse 1 - General Ulcer Assessment Start: 09/22/23 13:59 Freq: Status: Active Protocol: ANAYA Activity Type Activity Date Activity User E-sign Co-sign Detail Recorded Client Recorded Date Recorded By Document 09/24/23 11:14 KW Desktop 09/24/23 11:23 KW 09/24/23 11:14 - Today's Visit Information Type of service Follow-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 ) Arrival Mode Ambulatory Accompanied by carson Patient Identification Verified (Name & Yes ) Height and Weight Body Mass Index (BMI) 28.8 BMI Classification Overweight Vital Signs Temperature (97.8 F-99.1 F) 96.7 F L Temperature Source Temporal Pulse Rate (60-100) 67 Pulse Location Monitor Respiratory Rate (12-18) 18 Respiratory rate source Observation Oxygen Delivery Method Room Air Blood Pressure (90/60-120/80) 141/76 H Blood Pressure Mean (mm Hg) 97 Source Monitor Position Semi-Fowlers Blood Pressure Location Left Arm History Since Last Visit- (Skip if this is Patient's initial visit) Have you changed medications since your No last visit? Any new allergies or adverse reactions No Had a fall/change in ADL's that may No increase risk of falls Signs or symptoms of abuse and/or No neglect since last visit Have you been in the hospital since your No last visit? Has dressing in place as prescribed Yes Has compression in place as prescribed Yes Has offloadiing in place as prescribed No Experienced any changes in pain level or No management Left Footwear Regular Shoe Right Footwear Regular Shoe Pain Scale: 0-10 Numeric Is Patient Pain Free? Yes WC - Nurse 1 - General Ulcer Measurement Start: 09/22/23 13:59 Freq: Status: Active Protocol: Activity Type Activity Date Activity User E-sign Co-sign Detail Recorded Client Recorded Date Recorded By Document 09/24/23 11:14 KW Desktop 09/24/23 11:23 KW Edit Result 09/24/23 11:14 KW (1) Desktop 09/24/23 11:24 KW (1) #1 L Med Ankle - Current Size (cm) - Length => 3 - Current Size (cm) - Width => 2.5 - Current Size (cm) - Depth => 0.3 - Total Square Cm => 7.5 09/24/23 11:14 Wound Center Nurse 1 #1 L Med Ankle -Current Size (cm) - Length 3 -Current Size (cm) - Width 2.5 -Current Size (cm) - Depth 0.3 -Total Square Cm 7.5 -Exudate Type Serosanguineous -Wound Margin Thickened -Granulation Amt Medium (34-66%) -Granulation [place] -Necrosis Amt Large (67-100%) -Necrotic Tissue Type Adherent Slough -Texture (Megan-wound Skin Appearance) Assessed -Moisture (Megan-wound Skin Appearance) Assessed, Maceration -Color (Megan-wound Skin Appearance) Assessed, Erythema -Temperature (Megan-wound Skin No Abnormality Appearance) (Pt Warm) -Ulcer Cleansing Soap and Water -Anesthetic Used 5% Lidocaine Gel Left Calf (cm) 39.0 Left Ankle (cm) 23.4 WC - Nurse 2 - General Ulcer CM Notes Start: 09/22/23 13:59 Freq: Status: Active Protocol: Activity Type Activity Date Activity User E-sign Co-sign Detail Recorded Client Recorded Date Recorded By Document 09/24/23 12:40 PL [id number] 09/24/23 12:41 PL 12/07/23 12:40 Wound Center Nurse 2 #1 L Med Ankle -Time 11:46 -Correct Patient Yes -Correct Side, Site, Position Yes -Correct Procedure Yes -Procedure Performed Yes -Type of Procedure Debridement -Clinical Debridement Subcutaneous -Tissue Removed Subcutaneous -Post Debridement (cm) - Length 2.8 -Post Debridement (cm) - Width 3.4 -Post Debridement (cm) - Depth 0.4 -Total Square (Post) (cm) 9.52 -Area of Debridement (cm) - Length 2.8 -Area of Debridement (cm) - Width 3.4 -Total Square (Area) (cm) 9.52 -Tunneling No -Undermining/Tunneling No -Circular Undermining No -Wound/Ulcer Outcome Not Healed -Ulcer Cleansing Rinsed/ Irrigated with Saline -Foul Odor after Cleansing No -Bioengineered Tissue Yes -Type of Bioengineered Tissue Epifix Mesh -Expiration Date 05/19/28 -Product Lot Number [id number] -Percent Used 100 -Bleeding Controlled with Pressure -Treatment Response Procedure Tolerated Well -Debridement - Subq, 1st 20sq cm No -Apply Skin Sub - 1st 25 sq cm - Legs 1 -Epifix Mesh (per sq cm) 11 Pain Scale: 0-10 Numeric Is Patient Pain Free? Yes - Nurse 3 - General Ulcer D/C NN Start: 09/22/23 13:59 Freq: Status: Active Protocol: Activity Type Activity Date Activity User E-sign Co-sign Detail Recorded Client Recorded Date Recorded By Document 09/22/23 13:59 [id number] 09/22/23 14:00 PL 09/22/23 13:59 Wound Care Center Nurse 3 Left -Multi-Layered Wrap Application Multi-Layer Comp - Left ($) Pain Scale: 0-10 Numeric Is Patient Pain Free? Yes Assessment/Plan Assessment/Plan (1) Non-pressure chronic ulcer of left ankle with necrosis of muscle: CODE(S): L97.323 - Non-pressure chronic ulcer of left ankle with necrosis of muscle (2) Venous insufficiency (chronic) (peripheral): CODE(S): I87.2 - Venous insufficiency (chronic) (peripheral) (3) Delayed wound healing: CODE(S): T14.8XXD - Other injury of unspecified body region, subsequent encounter (4) Iron deficiency anemia: CODE(S): D50.9 - Iron deficiency anemia, unspecified (5) Obesity: CODE(S): E66.9 - Obesity, unspecified PLAN: Plan Patient seen and evaluated Left lower extremity: There is ulceration noted to the medial aspect of the left lower extremity/ankle with mixed fibrogranular tissue with some serosanguineous drainage. Ulceration is noted to be overlying the neurovascular bundle. Negative Stemmer sign left foot. There is evidence of stasis dermatitis with hyperpigmentation/hemosiderin staining of the left lower extremity. Ulceration underwent debridement as noted in the clinical panel above. Ulceration measures 2.8 cm x 3.4 cm x 0.4 cm. No signs of infection. Skin maceration present but overall wound is granulating in well. EpiFix graft #3 applied to wound bed and dressed with Adaptic touch and anchored with Steri-Strips. A Suprasorb dressing was applied then followed by a 3M compression wrap applied to the left lower extremity. Patient was instructed to not get the dressing wet. Discussed if he soaks through dressing to call and return for new dressing/compression wrap application. Due to increased drainage from graft I am placing him on oral Augmentin 875mg BID x 14 days as precaution. He is finishing oral abx. I discussed continued elevation of the lower extremity at all times of rest to aid in edema control. I discussed once ulceration is healed he is to return to a prescription based compression stocking. Discussed updating stockings every 6 to 9 months to ensure proper uniform compression to treat his chronic venous insufficiency and to reduce recidivism of wound. LEAS performed 09/02/23 demonstrates right RONEN 1.31, normal. TBI and Doppler/PVR waveforms of right leg normal at rest; left RONEN 1.38, normal. TBI and Doppler/PVR waveforms of the left leg normal at rest. Venous studies performed 09/02/2023 demonstrates no evidence of bilateral lower extremity DVT. Bilateral great saphenous veins appear patent and compressible segmentally. Positive for reflux right popliteal vein, great saphenous vein in. Positive for reflux left popliteal vein, saphenofemoral junction. Discussed importance of serial debridement to aid in wound healing. He was approved for application of EpiFix advanced wound product, we will continue applications. Discussed proper diet to increase protein intake to aid in wound healing. Recommended Vladimir supplementation. Discussed reducing foods with salty content to aid in edema control. Discussed avoidance of prolonged standing or legs dangling over side of chair/bed. Discussed with patient the depth of the ulcerative site and close proximity to the neurovascular bundle. Discussed with him signs and symptoms of infection. Discussed if he notices redness about the ulcerative site moving up the leg, purulent drainage from the wound site, foul increasing odor from the wound, or if he experiences fever greater than 101 degree, nausea, vomiting, chills/rigor, that these are signs of progressing infection and he should report to the ED to receive IV antibiotics. Patient and voiced understanding of this. The following work up and care recommendations were made: Dressing: EpiFix, Adaptic touch, Steri-Strips, Suprasorb, 3M compression wrap left lower extremity. Wash: Do not get wet Tissue growth optimization: EpiFix Offload: To ensure no pressure to the medial ankle/hindfoot Vascular: DP and PT pulses palpable with adequate capillary fill to digits. Edema: Discussed elevation of lower extremities at times of rest. 3M compression wrap placed. Infection: No signs of infection. Patient currently finishing oral cephalexin. Encouraged to take antibiotic to completion. Pain: May take Tylenol extra strength for discomfort Host factors: Chronic venous insufficiency I answered all the patient's questions. To return to the wound healing center in 1 week or call sooner if the patient has any questions or concerns.
[2023-09-29 11:20] VITALS: BP 123/59; PULSE 70; RESP 18; TEMP 35.5; BMI 28.8
[2023-10-01 09:16] VITALS: BP 133/83; PULSE 69; RESP 18; TEMP 36.6; BMI 28.8
--- NOTE | 2023-10-01 09:28 | PN.PCM_ITS ---
History of Present Illness Date of Service: 10/01/23 Chief Complaint: Left medial ankle wound History of Wound: Patient is a 78-year-old male who presents to the wound care center with recurring left lower extremity medial ankle wound. He has PMHx of recurring left lower extremity ulceration secondary to chronic venous insufficiency, history of DVT, obesity, JOSHUA, iron deficient anemia, delayed wound healing, and asthma. He states that he does have compression stockings but his stockings are old. States that approximately 2-1/2 months ago this ulceration did open again to the medial ankle and has been unable to progress in healing. He was placed on oral antibiotics, cephalexin, and is finishing antibiotic course. Has been applying topical ointments to the wound daily with dressing changes. He did follow with his primary care who did refer him to the wound center due to nonhealing ulceration. He denies trauma to the site. States that the specific site is recurrent with breakdown of skin. Denies N/V/F/chills. No further complaints. 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 Patient states that the compression wrapping continues to make his legs feel better. He states he is also having less pain. He states drainage has become significantly less and he can tell the difference in his swelling which has decreased. Denies constitutional symptoms. Denies further complaints. Objective Data Objective Data Vital Signs: Vital Signs Temp Pulse Resp BP O2 Del Method 97.9 F 69 18 133/83 H Room Air 10/01/23 09:16 10/01/23 09:16 10/01/23 09:16 10/01/23 09:16 10/01/23 09:16 Oxygen Delivery Method Room Air Weight: 99.159 kg Body Mass Index (BMI) 28.8 Physical Exam Const alert, oriented x3 and no apparent distress General Appearance: cooperative HEENT normocephalic Eyes Eyes Narrative: Wears glasses General Eye: normal appearance of both eyes Neck General: normal visual inspection Lymph Lymphatic: no lymphadenopathy noted and no lymphedema noted Resp normal respiratory effort Cardio regular rate and regular rhythm Extremity normal capillary refill, no joint enlargement and no pedal edema Extremity Narrative: Vascular: DP and PT pulses weakly palpable. Capillary fill time to the digits is 5 seconds. Normal temperature gradient. There is absent hair growth to the digits noted. Dermatological: There is ulceration noted to the medial aspect of the left lower extremity/ankle with mixed fibrotic/granular tissue with serosanguineous drainage. Ulceration is noted to be overlying the neurovascular bundle. Negati ve Stemmer sign left foot. There is evidence of stasis dermatitis with hyperpigmentation/hemosiderin staining of the left lower extremity. Musculoskeletal: Muscle strength 5 of 5 age-appropriate. Skin no rashes or lesions noted, skin turgor normal and no jaundice General Skin Exam: venous stasis and dermatitis Neuro moves all extremities Debridement Note Debridement Note Wound debrided: Left medial ankle Laterality: Left Wound Grade/Stage: Cisneros stage II Type of Debridement: Excisional debridement Anesthesia Used: 5% Lidocaine Gel Depth: Down to and including healthy tissue and in the subcutaneous layer Percentage of wound debrided: 100 Instrument Used: 5mm curette Tissue Removed: Fibrous, devitalized subcutaneous, biofilm, slough Severity: Fat Layer Exposed Amount of bleeding with debridement: Mild Bleeding Controlled with: Compression and gauze Patient tolerated procedure: Patient tolerated procedure well Post-Debridement Measurements and Additional Note: Post-Debridement Measurements/Treatment - Nurse 1 - General Ulcer Assessment Start: 09/22/23 13:59 Freq: Status: Active Protocol: .JESUS Activity Type Activity Date Activity User E-sign Co-sign Detail Recorded Client Recorded Date Recorded By Document 09/24/23 11:14 KW Desktop 09/24/23 11:23 KW Document 09/29/23 11:20 RB [id number] 09/29/23 11:24 RB Document 10/01/23 09:16 KW Desktop 10/01/23 09:22 KW 09/24/23 09/29/23 10/01/23 11:14 11:20 09:16 - Today's Visit Information Type of service Follow-up Visit Nurse-only Follow-up Visit (Physician/PLANT MACHINIST Visit (Physician/PLANT MACHINIST ) ) Arrival Mode Ambulatory Ambulatory Ambulatory Transfer Assistance None Accompanied by byrd Patient Identification Verified (Name & Yes Yes Yes ) Patient Requires Transmission-Based No Precautions Height and Weight Body Mass Index (BMI) 28.8 28.8 28.8 BMI Classification Overweight Overweight Overweight Vital Signs Temperature (97.8 F-99.1 F) 96.7 F L 96 F L 97.9 F Temperature Source Temporal Temporal Temporal Pulse Rate (60-100) 67 70 69 Pulse Location Monitor Monitor Monitor Respiratory Rate (12-18) 18 18 18 Respiratory rate source Observation Observation Observation Oxygen Delivery Method Room Air Room Air Blood Pressure (90/60-120/80) 141/76 H 123/59 H 133/83 H Blood Pressure Mean (mm Hg) 97 80 99 Source Monitor Monitor Monitor Position Semi-Fowlers Semi-Fowlers Semi-Fowlers Blood Pressure Location Left Arm Left Arm Left Arm History Since Last Visit- (Skip if this is Patient's initial visit) Have you changed medications since your No No No last visit? Any new allergies or adverse reactions No No No Had a fall/change in ADL's that may No No No increase risk of falls Signs or symptoms of abuse and/or No No No neglect since last visit Have you been in the hospital since your No No No last visit? Has dressing in place as prescribed Yes Yes Yes Has compression in place as prescribed Yes Yes Yes Has offloadiing in place as prescribed No No No Experienced any changes in pain level or No No No management Left Footwear Regular Shoe Regular Shoe Right Footwear Regular Shoe Regular Shoe Pain Scale: 0-10 Numeric Is Patient Pain Free? Yes Yes Yes WC - Nurse 1 - General Ulcer Measurement Start: 09/22/23 13:59 Freq: Status: Active Protocol: Activity Type Activity Date Activity User E-sign Co-sign Detail Recorded Client Recorded Date Recorded By Document 09/24/23 11:14 KW Desktop 09/24/23 11:23 KW Edit Result 09/24/23 11:14 KW (1) Desktop 09/24/23 11:24 KW Document 09/29/23 11:20 RB [id number] 09/29/23 11:24 RB Document 10/01/23 09:16 KW Desktop 10/01/23 09:22 KW (1) #1 L Med Ankle - Current Size (cm) - Length => 3 - Current Size (cm) - Width => 2.5 - Current Size (cm) - Depth => 0.3 - Total Square Cm => 7.5 09/24/23 09/29/23 10/01/23 11:14 11:20 09:16 Wound Center Nurse 1 #1 L Med Ankle -Current Size (cm) - Length 3 2.5 -Current Size (cm) - Width 2.5 3.2 -Current Size (cm) - Depth 0.3 0.3 -Total Square Cm 7.5 8.00 -Exudate Amt Medium -Exudate Type Serosanguineous Serosanguineous -Wound Margin Thickened Distinct, Outline Attached -Granulation Amt Medium (34-66%) Large (67-100%) -Granulation Quality Pershing Red -Necrosis Amt Large (67-100%) Small (1-33%) -Necrotic Tissue Type Adherent Slough Adherent Slough -Texture (Megan-wound Skin Appearance) Assessed Assessed -Moisture (Megan-wound Skin Appearance) Assessed, Assessed Maceration -Color (Megan-wound Skin Appearance) Assessed, Assessed Erythema -Temperature (Megan-wound Skin No Abnormality Appearance) (Pt Warm) -Ulcer Cleansing Soap and Water Soap and Water -Anesthetic Used 5% Lidocaine 5% Lidocaine Gel Gel Lower Limb Edema Present Yes Left Calf (cm) 39.0 37 Left Ankle (cm) 23.4 23 WC - Nurse 2 - General Ulcer CM Notes Start: 09/22/23 13:59 Freq: Status: Active Protocol: Activity Type Activity Date Activity User E-sign Co-sign Detail Recorded Client Recorded Date Recorded By Document 09/24/23 12:40 PL [id number] 09/24/23 12:41 PL 09/24/23 12:40 Wound Center Nurse 2 -Time 11:46 -Correct Patient Yes -Correct Side, Site, Position Yes -Correct Procedure Yes -Procedure Performed Yes -Type of Procedure Debridement -Clinical Debridement Subcutaneous -Tissue Removed Subcutaneous -Post Debridement (cm) - Length 2.8 -Post Debridement (cm) - Width 3.4 -Post Debridement (cm) - Depth 0.4 -Total Square (Post) (cm) 9.52 -Area of Debridement (cm) - Length 2.8 -Area of Debridement (cm) - Width 3.4 -Total Square (Area) (cm) 9.52 -Tunneling No -Undermining/Tunneling No -Circular Undermining No -Wound/Ulcer Outcome Not Healed -Ulcer Cleansing Rinsed/ Irrigated with Saline -Foul Odor after Cleansing No -Bioengineered Tissue Yes -Type of Bioengineered Tissue Epifix Mesh -Expiration Date 05/19/28 -Product Lot Number [id number] -Percent Used 100 -Bleeding Controlled with Pressure -Treatment Response Procedure Tolerated Well -Debridement - Subq, 1st 20sq cm No -Apply Skin Sub - 1st 25 sq cm - Legs 1 -Epifix Mesh (per sq cm) 11 Pain Scale: 0-10 Numeric Is Patient Pain Free? Yes - Nurse 3 - General Ulcer D/C NN Start: 09/22/23 13:59 Freq: Status: Active Protocol: Activity Type Activity Date Activity User E-sign Co-sign Detail Recorded Client Recorded Date Recorded By Document 09/22/23 13:59 PL [id number] 09/22/23 14:00 PL Document 09/29/23 11:20 RB [id number] 09/29/23 11:24 RB 09/22/23 09/29/23 13:59 11:20 Wound Care Center Nurse 3 #1 L Med Ankle -Primary Dressing Applied Optilok 6.5x10 -Primary Dressing Covered/Secured with Dry Gauze & Roll Gauze, Secured with Tape -Optilok 6.5x10 1 Left -Multi-Layered Wrap Application Multi-Layer Multi-Layer Comp - Left ($) Comp - Left ($) Treatment Response Procedure Tolerated Well Vital Signs Temperature (97.8 F-99.1 F) 96 F L Temperature Source Temporal Pulse Rate (60-100) 70 Pulse Location Monitor Respiratory Rate (12-18) 18 Respiratory rate source Observation Blood Pressure (90/60-120/80) 123/59 H Blood Pressure Mean (mm Hg) 80 Source Monitor Position Semi-Fowlers Blood Pressure Location Left Arm Pain Scale: 0-10 Numeric Is Patient Pain Free? Yes Yes - Visit Discharge Discharge Condition Stable Ambulatory Status Ambulatory Transportation Private Auto Medication Reconcilliation completed & No provided to patient/care provider Clinical Summary of Care Provided Yes Assessment/Plan Assessment/Plan (1) Non-pressure chronic ulcer of left ankle with necrosis of muscle: CODE(S): L97.323 - Non-pressure chronic ulcer of left ankle with necrosis of muscle (2) Venous insufficiency (chronic) (peripheral): CODE(S): I87.2 - Venous insufficiency (chronic) (peripheral) (3) Delayed wound healing: CODE(S): T14.8XXD - Other injury of unspecified body region, subsequent encounter (4) Iron deficiency anemia: CODE(S): D50.9 - Iron deficiency anemia, unspecified (5) Obesity: CODE(S): E66.9 - Obesity, unspecified PLAN: Plan Patient seen and evaluated Left lower extremity: There is ulceration noted to the medial aspect of the left lower extremity/ankle with mixed fibrogranular tissue with some serosanguineous drainage. Ulceration is noted to be overlying the neurovascular bundle. Negative Stemmer sign left foot. There is evidence of stasis dermatitis with hyperpigmentation/hemosiderin staining of the left lower extremity. Ulceration underwent debridement as noted in the clinical panel above. Ulceration measures 2.4 cm x 3.0 cm x 0.3 cm. No signs of infection. Skin maceration present but overall wound is granulating in well. EpiFix graft #4 applied to wound bed and dressed with Adaptic touch and anchored with Steri- Strips. A Suprasorb dressing was applied then followed by a 3M compression wrap applied to the left lower extremity. Patient was instructed to not get the dressing wet. Ulceration continues to demonstrate reduction in size versus previous visits. Discussed if he soaks through dressing to call and return for new dressing/compression wrap application. Due to increased drainage from graft he was started on oral Augmentin 875mg BID x 14 days as precaution. He has finished oral abx to completion. I discussed continued elevation of the lower extremity at all times of rest to aid in edema control. I discussed once ulceration is healed he is to return to a prescription based compression stocking. Discussed updating stockings every 6 to 9 months to ensure proper uniform compression to treat his chronic venous insufficiency and to reduce recidivism of wound. LEAS performed 09/02/23 demonstrates right RONEN 1.31, normal. TBI and Doppler/PVR waveforms of right leg normal at rest; left RONEN 1.38, normal. TBI and Doppler/PVR waveforms of the left leg normal at rest. Venous studies performed 09/02/2023 demonstrates no evidence of bilateral lower extremity DVT. Bilateral great saphenous veins appear patent and compressible segmentally. Positive for reflux right popliteal vein, great saphenous vein in. Positive for reflux left popliteal vein, saphenofemoral junction. Discussed importance of serial debridement to aid in wound healing. He was approved for application of EpiFix advanced wound product, we will continue applications. Discussed proper diet to increase protein intake to aid in wound healing. Recommended Vladimir supplementation. Discussed reducing foods with salty content to aid in edema control. Discussed avoidance of prolonged standing or legs dangling over side of chair/bed. Discussed with patient the depth of the ulcerative site and close proximity to the neurovascular bundle. Discussed with him signs and symptoms of infection. Discussed if he notices redness about the ulcerative site moving up the leg, purulent drainage from the wound site, foul increasing odor from the wound, or if he experiences fever greater than 101 degree, nausea, vomiting, chills/rigor, that these are signs of progressing infection and he should report to the ED to receive IV antibiotics. Patient and voiced understanding of this. The following work up and care recommendations were made: Dressing: EpiFix, Adaptic touch, Steri-Strips, Suprasorb, 3M compression wrap left lower extremity. Wash: Do not get wet Tissue growth optimization: EpiFix Offload: To ensure no pressure to the medial ankle/hindfoot Vascular: DP and PT pulses palpable with adequate capillary fill to digits. Edema: Discussed elevation of lower extremities at times of rest. 3M compression wrap placed. Infection: No signs of infection. Patient currently finishing oral cephalexin. Encouraged to take antibiotic to completion. Pain: May take Tylenol extra strength for discomfort Host factors: Chronic venous insufficiency I answered all the patient's questions. To return to the wound healing center in 2 weeks or call sooner if the patient has any questions or concerns.
[2023-10-06 11:08] VITALS: BP 136/60; PULSE 72; RESP 18; BMI 28.8
[2023-10-08 12:54] VITALS: BP 155/71; PULSE 64; RESP 18; TEMP 35.6; BMI 28.8
[2023-10-13 11:15] VITALS: BP 129/62; PULSE 72; RESP 18; TEMP 36.3; BMI 28.8
[2023-10-15 09:25] VITALS: BP 149/78; PULSE 72; RESP 18; TEMP 35.7; BMI 28.8
--- NOTE | 2023-10-15 13:07 | PCM.WC.PN ---
History of Present Illness Date of Service: 10/15/23 Chief Complaint: Left medial ankle wound History of Wound: Patient is a 78-year-old male who presents to the wound care center with recurring left lower extremity medial ankle wound. He has PMHx of recurring left lower extremity ulceration secondary to chronic venous insufficiency, history of DVT, obesity, JOSHUA, iron deficient anemia, delayed wound healing, and asthma. He states that he does have compression stockings but his stockings are old. States that approximately 2-1/2 months ago this ulceration did open again to the medial ankle and has been unable to progress in healing. He was placed on oral antibiotics, cephalexin, and is finishing antibiotic course. Has been applying topical ointments to the wound daily with dressing changes. He did follow with his primary care who did refer him to the wound center due to nonhealing ulceration. He denies trauma to the site. States that the specific site is recurrent with breakdown of skin. Denies N/V/F/chills. No further complaints. 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 Patient states that the compression wrapping continues to make his legs feel better. He states he is also having less pain around the wound site. He states drainage has become significantly less and he can tell swelling continues to decreased. Denies constitutional symptoms. Denies further complaints. Objective Data Objective Data Vital Signs: Vital Signs Temp Pulse Resp BP O2 Del Method 96.2 F L 72 18 149/78 H Room Air 10/15/23 09:25 10/15/23 09:25 10/15/23 09:25 10/15/23 09:25 10/15/23 09:25 Oxygen Delivery Method Room Air Weight: 99.159 kg Body Mass Index (BMI) 28.8 Physical Exam Const alert, oriented x3 and no apparent distress General Appearance: cooperative HEENT normocephalic Eyes Eyes Narrative: Wears glasses General Eye: normal appearance of both eyes Neck General: normal visual inspection Lymph Lymphatic: no lymphadenopathy noted and no lymphedema noted Resp normal respiratory effort Cardio regular rate and regular rhythm Extremity normal capillary refill, no joint enlargement and no pedal edema Extremity Narrative: Vascular: DP and PT pulses weakly palpable. Capillary fill time to the digits is 5 seconds. Normal temperature gradient. There is absent hair growth to the digits noted. Dermatological: There is ulceration noted to the medial aspect of the left lower extremity/ankle with mixed fibrotic/granular tissue with serosanguineous drainage. Ulceration is noted to be overlying the neurovascular bundle. Negative Stemmer sign left foot. There is evidence of stasis dermatitis with hyperpigmentation/hemosiderin staining of the left lower extremity. Musculoskeletal: Muscle strength 5 of 5 age-appropriate. Skin no rashes or lesions noted, skin turgor normal and no jaundice General Skin Exam: venous stasis and dermatitis Neuro moves all extremities Debridement Note Debridement Note Wound debrided: Left medial ankle Laterality: Left Wound Grade/Stage: Cisneros stage II Type of Debridement: Excisional debridement Anesthesia Used: 5% Lidocaine Gel Depth: Down to and including healthy tissue and in the subcutaneous layer Percentage of wound debrided: 100 Instrument Used: 5mm curette Tissue Removed: Fibrous, devitalized subcutaneous, biofilm, slough Severity: Fat Layer Exposed Amount of bleeding with debridement: Mild Bleeding Controlled with: Compression and gauze Patient tolerated procedure: Patient tolerated procedure well Post-Debridement Measurements and Additional Note: Post-Debridement Measurements/Treatment - Nurse 1 - General Ulcer Assessment Start: 09/22/23 13:59 Freq: Status: Active Protocol: .JESUS Activity Type Activity Date Activity User E-sign Co-sign Detail Recorded Client Recorded Date Recorded By Document 09/24/23 11:14 KW Desktop 09/24/23 11:23 KW Document 09/29/23 11:20 RB [id number] 09/29/23 11:24 RB Document 10/01/23 09:16 KW Desktop 10/01/23 09:22 KW Document 10/06/23 11:08 KW Desktop 10/06/23 11:10 KW Document 10/08/23 12:54 KW Desktop 10/08/23 13:04 KW Document 10/13/23 11:15 KW Desktop 10/13/23 11:20 KW Document 10/15/23 09:25 KW Desktop 10/15/23 09:30 KW 09/24/23 09/29/23 10/01/23 11:14 11:20 09:16 - Today's Visit Information Type of service Follow-up Visit Nurse-only Follow-up Visit (Physician/SERVICE ASSOCIATE Visit (Physician/SERVICE ASSOCIATE ) ) Arrival Mode Ambulatory Ambulatory Ambulatory Transfer Assistance None Accompanied by byrd Patient Identification Verified (Name & Yes Yes Yes ) Patient Requires Transmission-Based No Precautions Height and Weight Body Mass Index (BMI) 28.8 28.8 28.8 BMI Classification Overweight Overweight Overweight Vital Signs Temperature (97.8 F-99.1 F) 96.7 F L 96 F L 97.9 F Temperature Source Temporal Temporal Temporal Pulse Rate (60-100) 67 70 69 Pulse Location Monitor Monitor Monitor Respiratory Rate (12-18) 18 18 18 Respiratory rate source Observation Observation Observation Oxygen Delivery Method Room Air Room Air Blood Pressure (90/60-120/80) 141/76 H 123/59 H 133/83 H Blood Pressure Mean (mm Hg) 97 80 99 Source Monitor Monitor Monitor Position Semi-Fowlers Semi-Fowlers Semi-Fowlers Blood Pressure Location Left Arm Left Arm Left Arm History Since Last Visit- (Skip if this is Patient's initial visit) Have you changed medications since your No No No last visit? Any new allergies or adverse reactions No No No Had a fall/change in ADL's that may No No No increase risk of falls Signs or symptoms of abuse and/or No No No neglect since last visit Have you been in the hospital since your No No No last visit? Has dressing in place as prescribed Yes Yes Yes Has compression in place as prescribed Yes Yes Yes Has offloadiing in place as prescribed No No No Experienced any changes in pain level or No No No management Left Footwear Regular Shoe Regular Shoe Right Footwear Regular Shoe Regular Shoe Pain Scale: 0-10 Numeric Is Patient Pain Free? Yes Yes Yes 10/06/23 10/08/23 10/13/23 11:08 12:54 11:15 - Today's Visit Information Type of service Nurse-only Nurse-only Nurse-only Visit Visit Visit Arrival Mode Ambulatory Ambulatory Ambulatory Transfer Assistance Accompanied by Patient Identification Verified (Name & Yes Yes Yes ) Patient Requires Transmission-Based Precautions Height and Weight Body Mass Index (BMI) 28.8 28.8 28.8 BMI Classification Overweight Overweight Overweight Vital Signs Temperature (97.8 F-99.1 F) 96.0 F L 97.3 F L Temperature Source Temporal Temporal Pulse Rate (60-100) 72 64 72 Pulse Location Monitor Monitor Monitor Respiratory Rate (12-18) 18 18 18 Respiratory rate source Observation Observation Observation Oxygen Delivery Method Room Air Room Air Room Air Blood Pressure (90/60-120/80) 136/60 H 155/71 H 129/62 H Blood Pressure Mean (mm Hg) 85 99 84 Source Monitor Monitor Monitor Position Semi-Fowlers Semi-Fowlers Semi-Fowlers Blood Pressure Location Left Arm Left Arm Left Arm History Since Last Visit- (Skip if this is Patient's initial visit) Have you changed medications since your No No No last visit? Any new allergies or adverse reactions No No No Had a fall/change in ADL's that may No No No increase risk of falls Signs or symptoms of abuse and/or No No No neglect since last visit Have you been in the hospital since your No No No last visit? Has dressing in place as prescribed Yes Yes Yes Has compression in place as prescribed Yes Yes Yes Has offloadiing in place as prescribed No No N/A Experienced any changes in pain level or No No No management Left Footwear Regular Shoe Regular Shoe Regular Shoe Right Footwear Regular Shoe Regular Shoe Regular Shoe Pain Scale: 0-10 Numeric Is Patient Pain Free? Yes Yes Yes 10/15/23 09:25 WC - Today's Visit Information Type of service Follow-up Visit (Physician/SERVICE ASSOCIATE ) Arrival Mode Ambulatory Transfer Assistance Accompanied by Patient Identification Verified (Name & Yes ) Patient Requires Transmission-Based Precautions Height and Weight Body Mass Index (BMI) 28.8 BMI Classification Overweight Vital Signs Temperature (97.8 F-99.1 F) 96.2 F L Temperature Source Temporal Pulse Rate (60-100) 72 Pulse Location Monitor Respiratory Rate (12-18) 18 Respiratory rate source Observation Oxygen Delivery Method Room Air Blood Pressure (90/60-120/80) 149/78 H Blood Pressure Mean (mm Hg) 101 Source Monitor Position Semi-Fowlers Blood Pressure Location Right Arm History Since Last Visit- (Skip if this is Patient's initial visit) Have you changed medications since your No last visit? Any new allergies or adverse reactions No Had a fall/change in ADL's that may No increase risk of falls Signs or symptoms of abuse and/or No neglect since last visit Have you been in the hospital since your No last visit? Has dressing in place as prescribed Yes Has compression in place as prescribed Yes Has offloadiing in place as prescribed No Experienced any changes in pain level or No management Left Footwear Regular Shoe Right Footwear Regular Shoe Pain Scale: 0-10 Numeric Is Patient Pain Free? Yes WC - Nurse 1 - General Ulcer Measurement Start: 09/22/23 13:59 Freq: Status: Active Protocol: Activity Type Activity Date Activity User E-sign Co-sign Detail Recorded Client Recorded Date Recorded By Document 09/24/23 11:14 KW Desktop 09/24/23 11:23 KW Edit Result 09/24/23 11:14 KW (1) Desktop 09/24/23 11:24 KW Document 09/29/23 11:20 RB [id number] 09/29/23 11:24 RB Document 10/01/23 09:16 KW Desktop 10/01/23 09:22 KW Document 10/06/23 11:20 KW Desktop 10/06/23 11:21 KW Document 10/15/23 09:25 KW Desktop 10/15/23 09:30 KW (1) #1 L Med Ankle - Current Size (cm) - Length => 3 - Current Size (cm) - Width => 2.5 - Current Size (cm) - Depth => 0.3 - Total Square Cm => 7.5 09/24/23 09/29/23 10/01/23 11:14 11:20 09:16 Wound Center Nurse 1 #1 L Med Ankle -Current Size (cm) - Length 3 2.5 -Current Size (cm) - Width 2.5 3.2 -Current Size (cm) - Depth 0.3 0.3 -Total Square Cm 7.5 8.00 -Exudate Amt Medium -Exudate Type Serosanguineous Serosanguineous -Wound Margin Thickened Distinct, Outline Attached -Granulation Amt Medium (34-66%) Large (67-100%) -Granulation Quality [place] Red -Necrosis Amt Large (67-100%) Small (1-33%) -Necrotic Tissue Type Adherent Slough Adherent Slough -Texture (Megan-wound Skin Appearance) Assessed Assessed -Moisture (Megan-wound Skin Appearance) Assessed, Assessed Maceration -Color (Megan-wound Skin Appearance) Assessed, Assessed Erythema -Temperature (Megan-wound Skin No Abnormality Appearance) (Pt Warm) -Ulcer Cleansing Soap and Water Soap and Water -Anesthetic Used 5% Lidocaine 5% Lidocaine Gel Gel Lower Limb Edema Present Yes Left Calf (cm) 39.0 37 Left Ankle (cm) 23.4 23 Left Foot (cm) 10/06/23 10/15/23 11:20 09:25 Wound Center Nurse 1 #1 L Med Ankle -Current Size (cm) - Length 3.8 -Current Size (cm) - Width 2.4 -Current Size (cm) - Depth 0.1 -Total Square Cm 9.12 -Exudate Amt Medium -Exudate Type Serosanguineous -Wound Margin Thickened -Granulation Amt Large (67-100%) -Granulation Quality Red -Necrosis Amt -Necrotic Tissue Type -Texture (Megan-wound Skin Appearance) Assessed -Moisture (Megan-wound Skin Appearance) Assessed -Color (Megan-wound Skin Appearance) Assessed, Erythema -Temperature (Megan-wound Skin No Abnormality Appearance) (Pt Warm) -Ulcer Cleansing Soap and Water -Anesthetic Used 5% Lidocaine Gel Lower Limb Edema Present Left Calf (cm) 35.8 Left Ankle (cm) 44.5 24.6 Left Foot (cm) 23.4 WC - Nurse 2 - General Ulcer CM Notes Start: 09/22/23 13:59 Freq: Status: Active Protocol: Activity Type Activity Date Activity User E-sign Co-sign Detail Recorded Client Recorded Date Recorded By Document 09/24/23 12:40 PL [id number] 09/24/23 12:41 PL Document 10/01/23 16:44 PL [id number] 10/01/23 16:46 PL Edit Result 10/01/23 16:44 PL (1) [id number] 10/02/23 07:21 PL Document 10/15/23 12:36 PL [id number] 10/15/23 12:38 PL (1) #1 L Med Ankle - Dermabond => 1 09/24/23 10/01/23 10/15/23 12:40 16:44 12:36 Wound Center Nurse 2 #1 L Med Ankle -Time 11:46 09:34 09:50 -Correct Patient Yes Yes Yes -Correct Side, Site, Position Yes Yes Yes -Correct Procedure Yes Yes Yes -Procedure Performed Yes Yes Yes -Type of Procedure Debridement Debridement Debridement -Clinical Debridement Subcutaneous Subcutaneous Subcutaneous -Tissue Removed Subcutaneous Subcutaneous Subcutaneous -Post Debridement (cm) - Length 2.8 2.4 2.5 -Post Debridement (cm) - Width 3.4 3.0 2.6 -Post Debridement (cm) - Depth 0.4 0.3 0.2 -Total Square (Post) (cm) 9.52 7.20 6.50 -Area of Debridement (cm) - Length 2.8 2.4 2.5 -Area of Debridement (cm) - Width 3.4 3.0 2.6 -Total Square (Area) (cm) 9.52 7.20 6.50 -Tunneling No No No -Undermining/Tunneling No No No -Circular Undermining No No No -Wound/Ulcer Outcome Not Healed Not Healed Not Healed -Ulcer Cleansing Rinsed/ Rinsed/ Rinsed/ Irrigated with Irrigated with Irrigated with Saline Saline Saline -Foul Odor after Cleansing No No No -Bioengineered Tissue Yes Yes Yes -Type of Bioengineered Tissue Epifix Mesh Epifix Mesh Epifix Mesh -Expiration Date 05/19/28 05/19/28 06/19/28 -Product Lot Number [id number] -Percent Used 100 100 100 -Bleeding Controlled with Pressure Pressure Pressure -Treatment Response Procedure Procedure Procedure Tolerated Well Tolerated Well Tolerated Well -Debridement - Subq, 1st 20sq cm No No No -Apply Skin Sub - 1st 25 sq cm - Legs 1 1 1 -Dermabond 1 -Epifix Mesh (per sq cm) 11 11 11 Pain Scale: 0-10 Numeric Is Patient Pain Free? Yes Yes Yes WC - Nurse 3 - General Ulcer D/C NN Start: 09/22/23 13:59 Freq: Status: Active Protocol: Activity Type Activity Date Activity User E-sign Co-sign Detail Recorded Client Recorded Date Recorded By Document 09/22/23 13:59 PL [id number] 09/22/23 14:00 PL Document 09/29/23 11:20 RB [id number] 09/29/23 11:24 RB Document 10/01/23 10:01 KW Desktop 10/01/23 10:01 KW Document 10/06/23 11:10 KW Desktop 10/06/23 11:10 KW Document 10/08/23 13:04 KW Desktop 10/08/23 13:04 KW Document 10/13/23 11:15 KW Desktop 10/13/23 11:20 KW Document 10/15/23 10:18 KW Desktop 10/15/23 10:19 KW 09/22/23 09/29/23 10/01/23 13:59 11:20 10:01 Wound Care Center Nurse 3 #1 L Med Ankle -Primary Dressing Applied Optilok 6.5x10 Optilok 6.5x10 -Primary Dressing Covered/Secured with Dry Gauze & Roll Gauze, Secured with Tape -Optilok 6.5x10 1 2 Left -Multi-Layered Wrap Application Multi-Layer Multi-Layer Multi-Layer Comp - Left ($) Comp - Left ($) Comp - Left ($) Treatment Response Procedure Tolerated Well Vital Signs Temperature (97.8 F-99.1 F) 96 F L Temperature Source Temporal Pulse Rate (60-100) 70 Pulse Location Monitor Respiratory Rate (12-18) 18 Respiratory rate source Observation Oxygen Delivery Method Blood Pressure (90/60-120/80) 123/59 H Blood Pressure Mean (mm Hg) 80 Source Monitor Position Semi-Fowlers Blood Pressure Location Left Arm Pain Scale: 0-10 Numeric Is Patient Pain Free? Yes Yes Yes WC - Visit Discharge Discharge Condition Stable Ambulatory Status Ambulatory Transportation Private Auto Medication Reconcilliation completed & No provided to patient/care provider Clinical Summary of Care Provided Yes 10/06/23 10/08/23 10/13/23 11:10 13:04 11:15 Wound Care Center Nurse 3 #1 L Med Ankle -Primary Dressing Applied Optilok 6.5x10 Optilok 6.5x10 -Primary Dressing Covered/Secured with Dry Gauze & Dry Gauze & Roll Gauze, Roll Gauze, Secured with Secured with Tape Tape -Optilok 6.5x10 1 2 Left -Multi-Layered Wrap Application Multi-Layer Multi-Layer Multi-Layer Comp - Left ($) Comp - Left ($) Comp - Left ($) Treatment Response Vital Signs Temperature (97.8 F-99.1 F) 97.3 F L Temperature Source Temporal Pulse Rate (60-100) 72 Pulse Location Monitor Respiratory Rate (12-18) 18 Respiratory rate source Observation Oxygen Delivery Method Room Air Blood Pressure (90/60-120/80) 129/62 H Blood Pressure Mean (mm Hg) 84 Source Monitor Position Semi-Fowlers Blood Pressure Location Left Arm Pain Scale: 0-10 Numeric Is Patient Pain Free? Yes Yes Yes WC - Visit Discharge Discharge Condition Stable Stable Ambulatory Status Ambulatory Ambulatory Transportation Private Auto Private Auto Medication Reconcilliation completed & No No provided to patient/care provider Clinical Summary of Care Provided Yes Yes 10/15/23 10:18 Wound Care Center Nurse 3 #1 L Med Ankle -Primary Dressing Applied Optilok 6.5x10 -Primary Dressing Covered/Secured with Dry Gauze & Roll Gauze, Secured with Tape -Optilok 6.5x10 2 Left -Multi-Layered Wrap Application Multi-Layer Comp - Left ($) Treatment Response Vital Signs Temperature (97.8 F-99.1 F) Temperature Source Pulse Rate (60-100) Pulse Location Respiratory Rate (12-18) Respiratory rate source Oxygen Delivery Method Blood Pressure (90/60-120/80) Blood Pressure Mean (mm Hg) Source Position Blood Pressure Location Pain Scale: 0-10 Numeric Is Patient Pain Free? Yes WC - Visit Discharge Discharge Condition Stable Ambulatory Status Ambulatory Transportation Private Auto Medication Reconcilliation completed & No provided to patient/care provider Clinical Summary of Care Provided Yes Assessment/Plan Assessment/Plan (1) Non-pressure chronic ulcer of left ankle with necrosis of muscle: CODE(S): L97.323 - Non-pressure chronic ulcer of left ankle with necrosis of muscle (2) Venous insufficiency (chronic) (peripheral): CODE(S): I87.2 - Venous insufficiency (chronic) (peripheral) (3) Delayed wound healing: CODE(S): T14.8XXD - Other injury of unspecified body region, subsequent encounter (4) Iron deficiency anemia: CODE(S): D50.9 - Iron deficiency anemia, unspecified (5) Obesity: CODE(S): E66.9 - Obesity, unspecified PLAN: Plan Patient seen and evaluated Left lower extremity: There is ulceration noted to the medial aspect of the left lower extremity/ankle with mixed fibrogranular tissue with some serosanguineous drainage. Ulceration is noted to be overlying the neurovascular bundle. Negative Stemmer sign left foot. There is evidence of stasis dermatitis with hyperpigmentation/hemosiderin staining of the left lower extremity. Ulceration underwent debridement as noted in the clinical panel above. Ulceration measures 2.5 cm x 2.6 cm x 0.2 cm. No signs of infection. Skin maceration present but overall wound is granulating in well. EpiFix graft #5 applied to wound bed and dressed with Adaptic touch and anchored with Steri-Strips. A Suprasorb dressing was applied then followed by a 3M compression wrap applied to the left lower extremity. Patient was instructed to not get the dressing wet. Ulceration continues to demonstrate reduction in size versus previous visits. Discussed if he soaks through dressing to call and return for new dressing/compression wrap application. Due to increased drainage from graft he was started on oral Augmentin 875mg BID x 14 days as precaution. He has finished oral abx to completion. I discussed continued elevation of the lower extremity at all times of rest to aid in edema control. I discussed once ulceration is healed he is to return to a prescription based compression stocking. Discussed updating stockings every 6 to 9 months to ensure proper uniform compression to treat his chronic venous insufficiency and to reduce recidivism of wound. LEAS performed 09/02/23 demonstrates right RONEN 1.31, normal. TBI and Doppler/PVR waveforms of right leg normal at rest; left RONEN 1.38, normal. TBI and Doppler/PVR waveforms of the left leg normal at rest. Venous studies performed 09/02/2023 demonstrates no evidence of bilateral lower extremity DVT. Bilateral great saphenous veins appear patent and compressible segmentally. Positive for reflux right popliteal vein, great saphenous vein in. Positive for reflux left popliteal vein, saphenofemoral junction. Discussed importance of serial debridement to aid in wound healing. He was approved for application of EpiFix advanced wound product, we will continue applications. Discussed proper diet to increase protein intake to aid in wound healing. Recommended Vladimir supplementation. Discussed reducing foods with salty content to aid in edema control. Discussed avoidance of prolonged standing or legs dangling over side of chair/bed. Discussed with patient the depth of the ulcerative site and close proximity to the neurovascular bundle. Discussed with him signs and symptoms of infection. Discussed if he notices redness about the ulcerative site moving up the leg, purulent drainage from the wound site, foul increasing odor from the wound, or if he experiences fever greater than 101 degree, nausea, vomiting, chills/rigor, that these are signs of progressing infection and he should report to the ED to receive IV antibiotics. Patient and voiced understanding of this. The following work up and care recommendations were made: Dressing: EpiFix, Adaptic touch, Steri-Strips, Suprasorb, 3M compression wrap left lower extremity. Wash: Do not get wet Tissue growth optimization: EpiFix Offload: To ensure no pressure to the medial ankle/hindfoot Vascular: DP and PT pulses palpable with adequate capillary fill to digits. Edema: Discussed elevation of lower extremities at times of rest. 3M compression wrap placed. Infection: No signs of infection. Patient currently finishing oral cephalexin. Encouraged to take antibiotic to completion. Pain: May take Tylenol extra strength for discomfort Host factors: Chronic venous insufficiency I answered all the patient's questions. To return to the wound healing center in 1 week or call sooner if the patient has any questions or concerns.
== END 2023-10-18 23:59 | disposition home or self-care (01) ==
LOC: WC 09:15
PROVIDERS: PCP Family Medicine; Referring Provider Family Medicine; Visit Provider Student in an Organized Health Care Education/Training Program
DX: L97.323 Non-pressure chronic ulcer of left ankle with necrosis of muscle (principal); I87.2 Venous insufficiency (chronic) (peripheral); T14.8XXD Other injury of unspecified body region, subsequent encounter; D50.9 Iron deficiency anemia, unspecified; E66.9 Obesity, unspecified
CPT/HCPCS: 15271; 29581; 99211; 99212; Q4186; G0463

== ENCOUNTER 2023-10-15 14:42 | Outpatient (CLI) | payer MEDICARE, OTHER, SELFPAY ==
[2023-10-15 14:59] VITALS: BP 140/75; PULSE 69; RESP 16; TEMP 35.9
[2023-10-15] MEDS: Benralizumab 30 MG/ML Syringe SC (15:03)
[2023-10-15] MEDS: DENOSUMAB 60 MG/ML SC (15:03)
--- OUTSIDE RECORDS SUMMARY | 2023-10-15 15:05 | XMS RPT_ITS | CCD ---
Author Name Unknown Address [address] [place] [address] Organization [facility] Care Team Providers Care Profile Shaper Operator Name Role Phone JAREK GRAY Unavailable Unavailable JAREK GRAY Unavailable Unavailable PETER FINNEY Unavailable Unavailable WES SAWANT Unavailable Unavailable BICLETTYDAMarquez, VERA Unavailable Unavailable JAREK GRAY Unavailable Unavailable JAREK GRAY Unavailable Unavailable JAREK GRAY Unavailable Unavailable PETER FINNEY Unavailable Unavailable Moises FIREBRICK LAYER, Leelee N Unavailable Unavailab le Moises FIREBRICK LAYER, Leelee N Unavailable Unavailab le IMCA Referring Unavailable PETER FINNEY Primary Care Unavailable CARMEN GRAY Referring Unavailable PETER FINNEY Primary Care Unavailable CARMEN GRAY Attending Unavailable PETER FINNEY Primary Care Unavailable [facility] Referring Unavailable CARMEN GRAY Attending Unavailable PETER FINNEY Primary Care Unavailable CARMEN GRAY Referring Unavailable CRISPIN JOYCE ([facility]) Referring UnavailPETER Montoya Primary Care Unavailable CRISPIN JOYCE ([facility]) Referring UnavailCARMEN Candelario Referring CRISPIN Baker ([facility]) Referring UnavailCARMEN Candelario Attending Peter Cota MD Primary Care Provider [phone]( [phone] PETER FINNEY Primary Care Unavailable MAXX LOZADA [...] Facility (1 source) Gluten Drug allergy (disorder) [facility] Repository (8 sources) Adhesive agent; Translations: [ADHESIVE] Propensity to adverse reactions (disorder) 5 Rash [facility] Repository (8 sources) Wheat gluten extract; Translations: [WHEAT GLUTEN] Drug Allergy 0 Mental Status Change, Intolerance, Diarrhea [facility] Repository Medications Current Medications Medication Drug Class(es) [...] Take one tablet 5 times daily ACYCLOVIR [id number] Mike MCCALLUM [id number] 200 actuat albuterol 0.09 mg/actuat metered dose [...] Coronary arteriosclerosis; Translations: [Atherosclerotic heart disease of [place] coronary artery without angina pectoris] Onset: 08-18-2022 [...] 10:46-0400 Body temperature 97 [degF] Renee Conde FILM LIBRARY CLERK.ETHYLBENZENE OXIDIZER Work Phone: [facility] 02-14-2023 10:46-0400 Body weight 102.97 kg Renee Conde FILM LIBRARY CLERK.ETHYLBENZENE OXIDIZER Work Phone: [facility] 02-14-2023 10:46-0400 Diastolic blood pressure 76 mm[Hg] Renee Conde FILM LIBRARY CLERK.ETHYLBENZENE OXIDIZER Work Phone: [facility] 02-14-2023 10:46-0400 Heart rate 60 /min Renee Conde FILM LIBRARY CLERK.ETHYLBENZENE OXIDIZER Work Phone: [facility] 02-14-2023 10:46-0400 Respiratory rate 16 /min Renee Conde FILM LIBRARY CLERK.ETHYLBENZENE OXIDIZER Work Phone: [facility] 02-14-2023 10:46-0400 SaO2% (BldA) [Mass fraction] 98 % Renee Conde FILM LIBRARY CLERK.ETHYLBENZENE OXIDIZER Work Phone: [facility] 02-14-2023 10:46-0400 Systolic blood pressure 128 mm[Hg] Renee Conde FILM LIBRARY CLERK.ETHYLBENZENE OXIDIZER Work Phone: [facility] 10-20-2022 16:13-0500 Body temperature 99.81 [degF] Jarod Jose Francisco FILM LIBRARY CLERK.ETHYLBENZENE OXIDIZER Work Phone: [facility] 10-20-2022 16:13-0500 Body weight 108.41 kg Jarod Jose Francisco FILM LIBRARY CLERK.ETHYLBENZENE OXIDIZER Work Phone: [facility] 10-20-2022 16:13-0500 Diastolic blood pressure 70 mm[Hg] Jarod Jose Francisco FILM LIBRARY CLERK.ETHYLBENZENE OXIDIZER Work Phone: [facility] 10-20-2022 16:13-0500 Heart rate 86 /min Jarod Jose Francisco FILM LIBRARY CLERK.ETHYLBENZENE OXIDIZER Work Phone: [facility] 10-20-2022 16:13-0500 Respiratory rate 16 /min Jarod Jose Francisco FILM LIBRARY CLERK.ETHYLBENZENE OXIDIZER Work Phone: [facility] 10-20-2022 16:13-0500 SaO2% (BldA) [Mass fraction] 96 % Jarod King FILM LIBRARY CLERK.ETHYLBENZENE OXIDIZER Work Phone: [facility] 10-20-2022 16:13-0500 Systolic blood pressure 122 mm[Hg] Jarod Jose Francisco FILM LIBRARY CLERK.ETHYLBENZENE OXIDIZER Work Phone: [facility] 09-17-2022 09:45-0500 Body height 185.4 cm Marcella Karmen PA-C Work Phone: [facility] 09-17-2022 09:45-0500 Body temperature 97.3 [degF] Marcella [place] PA-C Work Phone: [facility] 09-17-2022 09:45-0500 Body weight 110.95 kg Marcella Karmen PA-C Work Phone: [facility] 09-17-2022 09:45-0500 Diastolic blood pressure 74 mm[Hg] Marcella Karmen PA-C Work Phone: [facility] 09-17-2022 09:45-0500 Heart rate 72 /min Marcella [place] PA-C Work Phone: [facility] 09-17-2022 09:45-0500 SaO2% (BldA) [Mass fraction] 98 % Marcella Peraza PA-C Work Phone: [facility] 09-17-2022 09:45-0500 Systolic blood pressure 138 mm[Hg] Marcella Peraza PA-C Work Phone: [facility] 08-04-2022 14:15-0400 Body height 182.9 cm Maxx Lozada MD Work Phone: [facility] 08-04-2022 14:15-0400 Body temperature 97.9 [degF] Maxx Lozada MD Work Phone: [facility] 08-04-2022 14:15-0400 Body weight 112.95 kg Maxx Lozada MD Work Phone: [facility] 08-04-2022 14:15-0400 Diastolic blood pressure 70 mm[Hg] Maxx Lozada MD Work Phone: [facility] 08-04-2022 14:15-0400 Heart rate 80 /min Maxx Lozada MD Work Phone: [facility] 08-04-2022 14:15-0400 Respiratory rate 16 /min Maxx Lozada MD Work Phone: [facility] 08-04-2022 14:15-0400 SaO2% (BldA) [Mass fraction] 95 % Maxx Lozada MD Work Phone: [facility] 08-04-2022 14:15-0400 Systolic blood pressure 130 mm[Hg] Maxx Lozada MD Work Phone: [facility] 08-07-2017 13:26-0400 BMI (Body Mass Index) 32.74 kg/m2 Leelee De Leon LPN [facility] No w Clinic Work Phone: 08-07-2017 13:26-0400 Body Temperature 97.7 [degF] Leelee De Leon LPN [facility] Now Cli christine Work Phone: 08-07-2017 13:26-0400 BP Diastolic 78 mm[Hg] Leelee De Leon LPN [facility] Now Clin ic Work Phone: 08-07-2017 13:-040 BP Systolic 122 mm[Hg] Leelee De Leon LPN [facility] Now Clin ic Work Phone: 08-07-2017 13:-040 Height 187.96 cm Leelee De Leon LPN [facility] Now [facility] ic Work Phone: 08-07-2017 13:26-0400 Pulse (Heart Rate) 87 /min Leelee De Leon LPN [facility] Now C linic Work Phone: 08-07-2017 13:-040 Respiratory Rate 16 /min Leelee De Leon LPN [facility] Now Cli christine Work Phone: 08-07-2017 13:-0400 Weight 115.67 kg Leelee De Leon LPN [facility] Now Clin ic Work Phone: Encounters Encounter Date Encounter Type Care Provider Facility Start: 02-14-2023 End: 02-14-2023 ambulatory [facility] Facility:[facility] Start: 02-14-2023 End: 02-14-2023 Patient encounter procedure Renee Conde APRN.ETHYLBENZENE OXIDIZER Work Phone: [facility] Procedures Date Procedure Procedure Detail Performing Clinician Start: 10-20-2022 COVID WITH FLUA+B, ROUTINE Jarod Felton APRN.ETHYLBENZENE OXIDIZER Work Phone: Start: 05-10-2018 Extraction of Iliac Bone Marrow, Percutaneous Approach JAREK GRAY Start: 05-10-2018 Fusion of 2 or more Cervical Vertebral Joints with Autologous Tissue Substitute, Posterior Approach, Posterior Column, Open Approach JAREK GRAY Start: 05-10-2018 Monitoring of Periph eral Nervous Electrical Activity, Intraoperative, External Approach JAREK GRAY Plan of Treatment Date Care Activity Detail Author Start: 08-18-2025 DIABETES SCREEN DIABETES SCREEN [facility] Start: 05-31-2024 Urine microalbumin profile DTAP,TDAP,TD (2 - Td or Tdap) [facility] Start: 10-19-2022 ADVANCE DIRECTIVE DISCUSSION ADVANCE DIRECTIVE DISCUSSION [facility] Start: 10-19-2022 DEPRESSION ASSESSMENT DEPRESSION ASS ESSMENT [facility] Start: 06-19-2022 Influenza vaccination INFLUENZA (#1) [facility] Start: 12-04-2021 COVID-19 VACCINE (4 - Booster for Pfizer series) COVID-19 VACCINE (4 - Booster for Pfizer series) [facility] Start: 10-19-2021 ADVANCE DIRECTIVE DISCUSSION ADVANCE DIRECTIVE DISCUSSION [facility] Start: 10-19-2021 DEPRESSION ASSESSMENT DEPRESSION ASS [facility] Start: 02-24-2019 DIABETES SCREEN DIABETES SCREEN [facility] Start: 08-07-2017 End: 08-07-2017 Appointment Appointment [facility] Work Phone: Start: 05-10-2013 Hepatitis B surface antibody level LDL CHOLESTEROL [facility] Start: 02-19-1996 SHINGRIX VACCINE (1 of 2) SHINGRIX VACCINE (1 of 2) [facility] Start: 02-19-1964 ANNUAL PCP TEAM NURSE SPECIALIST CHRISTINE DISEASE VISIT ANNUAL PCP TEAM CHRONIC DISEASE VISIT [facility] Start: 02-19-1964 HEPATITIS C SCREENING HEPATITIS C [facility] Patient Education DERMATITIS [facility] Immunization Date Immunization Notes Care Provider Beck fletcher 07-18-2016 influenza, high dose seasonal, preservative-free Maxx Lozada MD Work Phone: [facility] Work Phone: 07-11-2015 influenza, high dose seasonal, preservative-free Maxx Lozada MD Work Phone: [facility] 07-11-2015 pneumococcal conjuga te vaccine, 13 valent Maxx Lozada MD Work Phone: [facility] 07-07-2014 influenza, high dose seasonal, preservative-free Maxx Lozada MD Work Phone: [facility] 05-31-2014 tetanus toxoid, redu kendra diphtheria toxoid, and acellular pertussis vaccine, adsorbed Maxx Lozada MD Work Phone: [facility] 05-31-2014 typhoid vaccine, unspecified formulation Maxx Lozada MD Work Phone: [facility] 08-17-2013 pneumococcal polysaccharide vaccine, 23 valent Maxx Lozada MD Work Phone: [facility] 08-03-2013 influenza virus vacc ine, unspecified formulation Maxx Lozada MD Work Phone: [facility] Payers Date Payer Category Payer Unknown [id number] 2011 Unknown HOSPITAL/MEDICAL GENERIC MEDICAL GENERIC [id number] 2011-Present [phone] [address] [place] [address] Indemnity [id number] 2011 Medicare [id number] 2011 Medicare MEDICARE MEDICAR E A AND B [id number] 2011-Present [phone] [address] [address] [place] [address] Medicare [id number] 1959 Medicare [id number] 1945 Unknown [id number] 1945 Unknown [id number] 1945 Unknown [id number] 1945 Unknown [id number] 1945 Unknown [id number] 1945 Unknown [id number] Social History Date Type Detail Facility Start: 08-23-2012 End: 08-18-2022 Tobacco smoking status NHIS Ex-smoker [facility] End: 10-19-1967 History of tobacco use Current smoker [facility] End: 10-19-1967 History of tobacco use Cigarette Smoker [facility] Start: 08-23-2012 End: 08-18-2022 Tobacco use and exposure Smokeless tobacco non-user [facility] Start: 08-04-2022 End: 02-14-2023 Alcohol intake Current non-drinker of alcohol (finding) [facility] Start: 1945 Sex Assigned At Not on file C [facility] Start: 07-25-2022 End: 09-17-2022 Exposure to SARS-CoV-2 (event) Not sure [facility] Medical Equipment Procedure Code Equipment Code Equipment Origin al Text Equipment Identifier Dates Axf-Dp-D-Kind Im plant - [id number] Start: 08-23-2014 Screw Bn 2.7mm 1 6mm Lcp Ss - [id number] Start: 08-23-2014 Mesh Surgipro La rge Polypropylene Surgical Nonabsorbable Plug Knitted - [id number] Start: 09-10-2022 Clinical Notes 01-04-2015 to 02-14-2023 Renee Conde APRN.[facility] - 02/14/2023 11:13 AM EDTPatient InstructionsJarod Felton APRN.ETHYLBENZENE OXIDIZER - 10/20/2022 4:25 PM ESTPatient InstructionsMarcella Peraza PA-C - 09/17/2022 10:04 AM EST Note Date & Type Note Facility 02-14-2023 Note HNO ID: [id number] Author: Renee Conde APRN.[facility] Service: ? 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- [place] PAST SURGICAL HISTORY OF several eye surgeries, [...] Rfl: 0 tamsulosin ER (FLOMAX) 0.4 mg [id number] 1 CAPSULE BY MOUTH ONCE DAILY.Disp: 90 [...] Abdomen is flat. (more content not included)... [facility] 02-14-2023 History of Present illness Narrative Subjective [...] OCD LESION FEMORAL CONDYLE 2011 left femor- [place] PAST SURGICAL HISTORY OF several eye surgeries, [...] respiratory distress report to ED Renee Conde APRN.ETHYLBENZENE OXIDIZER documented in this encounter [facility] 10-20-2022 Influenza virus A and B RNA and SARS-CoV-2 (COVID-19) N gene panel LIUDMILA+probe (Resp) COVID 19 RESULT: SARS-CoV-2 (Agent of COVID-19) Not Detected by RT-PCR or equivalent method. maury UHWB-[id number]_[employer]iwdw [employer] (MIGEL)_EUA This test was developed and its performance characteristics determined by [facility]'s [facility] [place]. This test has been authorized by FDA under an Emergency Use Authorization (EUA). This test has been validated in accordance with the FDA's Guidance Document Policy for Diagnostics Testing in Laboratories Certified to Perform High Complexity Testing under CLIA prior to Emergency use Authorization for Coronavirus Disease 2019 during the Public Health Emergency issued on December 17, 2019. Test performed by [facility], [facility] [place], [address] [place] [address]. INFLUENZA A PCR: Negative for Influenza A by RT-PCR INFLUENZA B PCR: Negative for Influenza B by RT-PCR [facility] documented as of this encounter (statuses as of 09/23/2022) [facility]11-23-2022 History of Past illness Narrative* Problem Noted Date Resolved Date Left inguinal hernia 09/10/2022 09/10/2022 Acute gastritis without mention of hemorrhage 01/04/2015 Abdominal pain, epigastric 01/04/201501/04 documented as of this encounter (statuses as of 10/23/2022) [facility] History of Past illness Narrative* Problem Noted Date Resolved Date Left inguinal hernia 09/10/2022 09/10/2022 Acute gastritis without mention of hemorrhage 01/04/2015 Abdominal pain, epigastric 01/04/201501/04 documented as of this encounter (statuses as of 02/14/2023) [facility]10-17-2022 NoteHNO ID: [id number] Author: Maxx Lozada MD Service: ? 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 N/A Last Colonoscopy: Unknown Shanti Quique FIREBRICK LAYER PHYSICAL EXAMINATION: General: The patient is 77 [...] hernia repair with mesh - recurrent - [id number] Anticipated Anesthetic: General Patient weight: Blood pressure 130/70, pulse 80, temperature 36.6 C (97.9 F), temperature source Temporal, resp. rate 16, height 182.9 cm (6'), weight 112.9 kg (249 lb), SpO2 95 %. BMI: Body mass index is 33.77 kg/m . Planned antibiotic: Ancef 2gm IVPB it communications manager to OR SCDs needed - Yes Return [...] Maxx Lozada III, MD [facility] Nurse Note* Shanti Lei FIREBRICK LAYER - 08/04/2022 2:22 PM EDT REVIEW OF [...] Unknown Shanti Lei LPN [facility] History of Past illness Narrative* Problem Noted Date Resolved Date Acute gastritis without mention of hemorrhage 01/04/2015 Abdominal pain, epigastric 01/04/201501/04 documented as of this encounter (statuses as of 08/04/2022) [facility] Diagnosis Left inguinal hernia- Primary Inguinal hernia without mention of obstruction or gangrene, unilateral or unspecified, (not specified as recurrent) [facility] Diagnosis S/P hernia repair- Primary Other postprocedural status [facility] Diagnosis Lower resp. tract infection- Primary Other diseases of respiratory system, not elsewhere classified History of asthma Personal history of other diseases of respiratory system [facility] Diagnosis Lower respiratory infection- Primary Other diseases of respiratory system, not elsewhere classified documented in this encounter [facility] Summary Purpose Family History No Family History [...] DATE CREATED AUTHOR AUTHOR'S ORGANIZ ATION 02/10/2019 [facility] DATE CREATED AUTHOR AUTHOR'S ORGANIZ ATION 02/10/2019 [facility] DATE CREATED AUTHOR AUTHOR'S ORGANIZ ATION 09/11/2022 [facility] DATE CREATED AUTHOR AUTHOR'S ORGANIZ ATION 02/14/2023 [facility] Source Comments (unrecognize d section and content) In the event this informatio n is protected by the Federal Confidentiality of Alcohol and Drug Abuse Patient Records regulations: The Federal rules restrict any use of the information to criminally investigate or prosecute any alcohol or drug abuse patient.[facility] Foundation[facility] the event this information is protected by the Federal Confidentiality of Alcohol and Drug Abuse Patient Records regulations: The Federal rules restrict any use of the information to criminally investigate or prosecute any alcohol or drug abuse patient.[facility] FoundationIn the event this information is protected by the Federal Confidentiality of Alcohol and Drug Abuse Patient Records regulations: The Federal rules restrict any use of the information to criminally investigate or prosecute any alcohol or drug abuse patient.[facility] FoundationIn the event this information is protected by the Federal Confidentiality of Alcohol and Drug Abuse Patient Records regulations: The Federal rules restrict any use of the information to criminally investigate or prosecute any alcohol or drug abuse patient.[facility] Reason for Visit (unrecogniz ed section and content) Reason Comments Follow Up Hernia repair Reason Comments Chest Congestion headache, cough, sor e throat, bodyaches x 5 days Reason Comments Nasal Congestion drainage, cough x 2 days Care Teams (unrecognized sec tion and content) Profile Shaper Operator Relationship Specialty Start Date End Date Randa JosephDO [address] [place] [address] PCP - General Family Medicine 09/10/22 Profile Shaper Operator Relationship Specialty Start Date End Date Randa Joseph DO You [address] [place] [address] PCP - General Family Medicine 09/10/22 FOR [...] BE BASED ON THE PRIMARY CLINICAL RECORDS. [facility]. provides no warranty or guarantee of the accuracy or completeness of information in this document.
== END 2023-10-15 14:43 | disposition home or self-care (01) ==
LOC: MEDOUTP 14:42
PROVIDERS: PCP Family Medicine; Referring Provider Internal Medicine Endocrinology, Diabetes & Metabolism; Visit Provider Internal Medicine Endocrinology, Diabetes & Metabolism
DX: L97.322 Non-pressure chronic ulcer of left ankle with fat layer exposed (principal); M81.8 Other osteoporosis without current pathological fracture; I87.2 Venous insufficiency (chronic) (peripheral); D50.9 Iron deficiency anemia, unspecified; E66.9 Obesity, unspecified; G47.33 Obstructive sleep apnea (adult) (pediatric); J45.50 Severe persistent asthma, uncomplicated
CPT/HCPCS: 15271; 29581; 96372; Q4186; J0517; J0897

== ENCOUNTER 2023-10-15 14:43 | Outpatient (CLI) | payer MEDICARE, OTHER, SELFPAY ==
--- OUTSIDE RECORDS SUMMARY | 2023-10-15 15:05 | XMS RPT_ITS | CCD ---
Author Name Unknown Address [address] [place] [address] Organization [facility] Care Team Providers Care Can Inspector Name Role Phone JAREK GRAY Unavailable Unavailable JAREK GRAY Unavailable Unavailable PETER FINNEY Unavailable Unavailable WES SAWANT Unavailable Unavailable BICLETTYDAMarquez, VERA Unavailable Unavailable JAREK GRAY Unavailable Unavailable JAREK GRAY Unavailable Unavailable JAREK GRAY Unavailable Unavailable PETER FINNEY Unavailable Unavailable Moises SUPERVISOR FILES, Leelee N Unavailable Unavailab le Moises SUPERVISOR FILES, Leelee N Unavailable Unavailab le IMCA Referring Unavailable PETER FINNEY Primary Care Unavailable CARMEN GRAY Referring Unavailable PETER FINNEY Primary Care Unavailable CARMEN GRAY Attending Unavailable PETER FINNEY Primary Care Unavailable IMCA Referring Unavailable CARMEN GRAY Attending Unavailable PETER FINNEY Primary Care Unavailable CARMEN RGAY Referring Unavailable CRISPIN JOYCE ([facility]) Referring UnavailPETER Montoya Primary Care Unavailable CRISPIN JOYCE ([facility]) Referring UnavailCARMEN Candelario Referring CRISPIN Baker ([facility]) Referring UnavailCARMEN Candelario Attending Peter Cota MD Primary Care Provider [phone]( [phone] PETER FINNEY Primary Care Unavailable MAXX LOZADA Attending Unavailable MAXX LOZADA Admitting Unavailable Randa Joseph DO Primary Care Provider MICHAEL MIMS Referring Unavailable PETER FINNEY Primary Care Unavailable PETER FINNEY Primary Care Unavailable RANDA JOSEPH Referring Unavailable MAXX LOZADA Attending Unavailable PETER FINNEY Primary Care Unavailable RANDA JOSEPH Primary Care Unavailable RANDA JOSEPH Primary Care Unavailable MARCELLA PERAZA Attending Unavailable RANDA JOSEPH Primary Care Unavailable MAXX LOZADA Referring Unavailable PETER FINNEY Primary Care Unavailable MICHAEL MIMS Referring Unavailable Allergies Allergy Classification Reported Allergen(s) Allergy Type Date of Onset Reaction(s) Facility (1 source) Gluten Drug allergy (disorder) [facility] Repository (8 sources) Adhesive agent; Translations: [ADHESIVE] Propensity to adverse reactions (disorder) 5 Rash [facility] Repository (8 sources) Wheat gluten extract; Translations: [WHEAT GLUTEN] Drug Allergy 0 Mental Status Change, Intolerance, Diarrhea [facility] Repository Medications Current Medications Medication Drug Class(es) Dates Sig (Normalized) Sig (Original) doxycycline hyclate 100 mg oral tablet (2 sources) Tetracycline-clas s Drug Start: 02-14-2023 End: 02-24-2023 take 1 tablet by mouth twice daily doxycycline (VIBRA-TABS) 100 mg tablet Take 1 tablet by mouth twice daily for 10 days. 20 tablet 0 02/14/2023 02/24/2023 Active Completed/Discontinued Medications Medication Drug Class(es) Dates Sig (Normalized) Sig (Original) acyclovir 800 mg oral tablet (2 sources) Herpesvirus Nucleoside Analog DNA Polymerase Inhibitor, Herpes Simplex Virus Nucleoside Analog DNA Polymerase Inhibitor, Herpes Zoster Virus Nucleoside Analog DNA Polymerase Inhibitor Start: 08-07-2017 End: 08-14-2017 ACYCLOVIR 800 MG TABS Take one tablet 5 times daily ACYCLOVIR [id number] Mike MCCALLUM [id number] 200 actuat albuterol 0.09 mg/actuat metered dose inhaler (4 sources) beta2-Adrenergic Agonist Start: 06-29-2015 take 2 puff(s) by inhalation every six hours as needed albuterol HFA (PROAIR HFA) 90 mcg/actuation inhaler Indications: Asthma, moderate persistent Inhale 2 Puffs as instructed every 6 hours as needed. 1 Inhaler 2 06/29/2015 Active Problems Active Problems Problem Classification Problem Date Documented Da te Episodic/Chronic Aortic; peripheral; and visceral artery aneurysms (4 sources) Aortic root dilatation; Translations: [Thoracic aortic ectasia] Onset: 03-04-2017 03-04-2017 Chronic Asthma (5 sources) Mild intermittent asthma, uncomplicated; Translations: [Moderate persistent asthma] Onset: 03-23-2010 03-11-2012 Chronic Coronary atherosclerosis and other heart disease (3 sources) Coronary arteriosclerosis; Translations: [Atherosclerotic heart disease of [place] coronary artery without angina pectoris] Onset: 08-18-2022 08-18-2022 Chronic Deficiency and other anemia (1 source) Anemia, unspecified; Translations: [ANEMIA UNSPECIFIED] Onset: 05-17-2018 Episodic Esophageal disorders (9 sources) Gastro-esophageal reflux disease without esophagitis; Translations: [Gastroesophageal reflux disease] Onset: 03-23-2010 10-14-2021 Chronic Hyperplasia of prostate (5 sources) Benign prostatic hyperplasia without lower urinary tract symptoms; Translations: [Benign prostatic hyperplasia] Onset: 12-13-2014 12-13-2014 Chronic Medical examination/evaluation (2 sources) Encounter for other preprocedural examination; Translations: [ENCOUNTER OTHER PREPROCEDURAL EXAM] Onset: 05-05-2018 Episodic Osteoarthritis (1 source) Unspecified osteoarthritis, unspecified site; Translations: [UNSPECIFIED OSTEOARTHRITIS UNS SITE] Onset: 05-17-2018 Chronic Osteoporosis (4 sources) Osteoporosis; Translations: [Age-related osteoporosis without current pathological fracture] Onset: 03-23-2010 08-14-2010 Chronic Other connective tissue disease (1 source) Presence of left artificial hip joint; Translations: [PRESENCE LEFT ARTIFICIAL HIP JOINT] Onset: 05-17-2018 Chronic Other connective tissue disease (4 sources) History of total hip arthroplasty; Translations: [Presence of unspecified artificial hip joint] Onset: 03-23-2010 08-14-2010 Chronic Other ear and sense organ disorders (1 source) Unspecified hearing loss, bilateral; Translations: [UNSPECIFIED HEARING LOSS BILATERAL] Onset: 05-17-2018 Chronic Other gastrointestinal disorders (1 source) Celiac disease; Translations: [CELIAC DISEASE] Onset: 05-17-2018 Chronic Other gastrointestinal disorders (4 sources) Celiac disease; Translations: [Celiac disease] Onset: 03-23-2010 08-14-2010 Chronic Other hereditary and degenerative nervous system conditions (1 source) Restless legs syndrome; Translations: [RESTLESS LEGS SYNDROME] Onset: 05-17-2018 Chronic Other hereditary and degenerative nervous system conditions (4 sources) Restless legs; Translations: [Restless legs syndrome] Onset: 03-23-2010 08-14-2010 Chronic Other lower respiratory disease (4 sources) Fibrosis of lung; Translations: [Pulmonary fibrosis, unspecified] Onset: 02-25-2016 02-25-2016 Chronic Other lower respiratory disease (2 sources) Lower respiratory tract infection; Translations: [Unspecified acute lower respiratory infection] Episodic Other lower respiratory disease (1 source) H/O: asthma; Translations: [Personal history of other diseases of the respiratory system] Episodic Other nervous system disorders (4 sources) Disease of spinal cord, unspecified; Translations: [DISEASE OF SPINAL CORD UNSPECIFIED] Onset: 05-05-2018 Chronic Other nervous system disorders (4 sources) Cervical myelopathy; Translations: [Disease of spinal cord, unspecified] Onset: 01-12-2019 01-12-2019 Chronic Residual codes; unclassified (3 sources) Obstructive sleep apnea syndrome; Translations: [Obstructive sleep apnea (adult) (pediatric)] Onset: 08-18-2022 08-18-2022 Chronic Residual codes; unclassified (1 source) History of hernia repair; Translations: [Other specified postprocedural states] Episodic Screening or history of mental health and substance abuse (1 source) Personal history of nicotine dependence; Translations: [PERSONAL HISTORY OF NICOTINE DEPEND] Onset: 05-17-2018 Episodic Spondylosis; intervertebral disc disorders; other back problems (1 source) Other spondylosis with myelopathy, cervical region; Translations: [OTH SPONDYLOSIS W/MYELOPATHY CERV] Onset: 05-17-2018 Chronic Spondylosis; intervertebral disc disorders; other back problems (3 sources) Spinal stenosis, cervical region; Translations: [SPINAL STENOSIS CERVICAL REGION] Onset: 05-05-2018 Episodic Unclassified (1 source) Obstructive sleep apnea (adult) (pediatric); Translations: [OBSTRUCTIVE SLEEP APNEA] Onset: 05-17-2018 Chronic Past or Other Problems Problem Classification Problem Date Documented Da te Episodic/Chronic Abdominal hernia (6 sources) Left inguinal hernia ; Translations: [Unilateral inguinal hernia, without obstruction or gangrene, not specified as recurrent] Onset: 12-13-2014 Episodic Fracture of upper limb (4 sources) Fracture at wrist and/or hand level; Translations: [Fracture of unspecified carpal bone, right wrist, initial encounter for closed fracture] Onset: 09-01-2014 09-01-2014 Episodic Genitourinary symptoms and ill-defined conditions (4 sources) Lower urinary tract symptoms; Translations: [Unspecified symptoms and signs involving the genitourinary system] Onset: 12-13-2014 12-13-2014 Episodic Malaise and fatigue (4 sources) Fatigue; Translations: [Other fatigue] Onset: 03-13-2017 03-13-2017 Episodic Other diseases of kidney and ureters (4 sources) Obstruction of pelviureteric junction; Translations: [Crossing vessel and stricture of ureter without hydronephrosis] Onset: 12-13-2014 12-13-2014 Episodic Phlebitis; thrombophlebitis and thromboembolism (5 sources) Personal history of other venous thrombosis and embolism; Translations: [Deep venous thrombosis] Onset: 02-06-2010 08-14-2010 Episodic Viral infection (2 sources) Herpes zoster; Translations: [Zoster without complications] Onset: 08-07-2017 08-07-2017 Episodic Results Test Name Value Interpretation Reference Range Facil ity Vital Signs Date Time Vital Sign Value Performing Clinician Facility 02-14-2023 10:46-0400 Body temperature 97 [degF] Renee Conde VIDEO PRODUCTION ENGINEER.MOUNTING MACHINE OPERATOR Work Phone: [facility] 02-14-2023 10:46-0400 Body weight 102.97 kg Renee Conde VIDEO PRODUCTION ENGINEER.MOUNTING MACHINE OPERATOR Work Phone: [facility] 02-14-2023 10:46-0400 Diastolic blood pressure 76 mm[Hg] Renee Conde VIDEO PRODUCTION ENGINEER.MOUNTING MACHINE OPERATOR Work Phone: [facility] 02-14-2023 10:46-0400 Heart rate 60 /min Renee Conde VIDEO PRODUCTION ENGINEER.MOUNTING MACHINE OPERATOR Work Phone: [facility] 02-14-2023 10:46-0400 Respiratory rate 16 /min Renee Conde VIDEO PRODUCTION ENGINEER.MOUNTING MACHINE OPERATOR Work Phone: [facility] 02-14-2023 10:46-0400 SaO2% (BldA) [Mass fraction] 98 % Renee Conde VIDEO PRODUCTION ENGINEER.MOUNTING MACHINE OPERATOR Work Phone: [facility] 02-14-2023 10:46-0400 Systolic blood pressure 128 mm[Hg] Renee Conde VIDEO PRODUCTION ENGINEER.MOUNTING MACHINE OPERATOR Work Phone: [facility] 10-20-2022 16:13-0500 Body temperature 99.81 [degF] Jarod Jose Francisco VIDEO PRODUCTION ENGINEER.MOUNTING MACHINE OPERATOR Work Phone: [facility] 10-20-2022 16:13-0500 Body weight 108.41 kg Jarod Jose Francisco VIDEO PRODUCTION ENGINEER.MOUNTING MACHINE OPERATOR Work Phone: [facility] 10-20-2022 16:13-0500 Diastolic blood pressure 70 mm[Hg] Jarod Jose Francisco VIDEO PRODUCTION ENGINEER.MOUNTING MACHINE OPERATOR Work Phone: [facility] 10-20-2022 16:13-0500 Heart rate 86 /min Jarod Jose Francisco VIDEO PRODUCTION ENGINEER.MOUNTING MACHINE OPERATOR Work Phone: [facility] 10-20-2022 16:13-0500 Respiratory rate 16 /min Jarod Jose Francisco VIDEO PRODUCTION ENGINEER.MOUNTING MACHINE OPERATOR Work Phone: [facility] 10-20-2022 16:13-0500 SaO2% (BldA) [Mass fraction] 96 % Jarod King VIDEO PRODUCTION ENGINEER.MOUNTING MACHINE OPERATOR Work Phone: [facility] 10-20-2022 16:13-0500 Systolic blood pressure 122 mm[Hg] Jarod Jose Francisco VIDEO PRODUCTION ENGINEER.MOUNTING MACHINE OPERATOR Work Phone: [facility] 09-17-2022 09:45-0500 Body height 185.4 cm Marcella Karmen PA-C Work Phone: [facility] 09-17-2022 09:45-0500 Body temperature 97.3 [degF] Marcella [place] PA-C Work Phone: [facility] 09-17-2022 09:45-0500 Body weight 110.95 kg Marcella Karmen PA-C Work Phone: [facility] 09-17-2022 09:45-0500 Diastolic blood pressure 74 mm[Hg] Marcella Karmen PA-C Work Phone: [facility] 09-17-2022 09:45-0500 Heart rate 72 /min Marcella [place] PA-C Work Phone: [facility] 09-17-2022 09:45-0500 SaO2% (BldA) [Mass fraction] 98 % Marcella Peraza PA-C Work Phone: [facility] 09-17-2022 09:45-0500 Systolic blood pressure 138 mm[Hg] Marcella Peraza PA-C Work Phone: [facility] 08-04-2022 14:15-0400 Body height 182.9 cm Maxx Lozada MD Work Phone: [facility] 08-04-2022 14:15-0400 Body temperature 97.9 [degF] Maxx Lozada MD Work Phone: [facility] 08-04-2022 14:15-0400 Body weight 112.95 kg Maxx Lozada MD Work Phone: [facility] 08-04-2022 14:15-0400 Diastolic blood pressure 70 mm[Hg] Maxx Lozada MD Work Phone: [facility] 08-04-2022 14:15-0400 Heart rate 80 /min Maxx Lozada MD Work Phone: [facility] 08-04-2022 14:15-0400 Respiratory rate 16 /min Maxx Lozada MD Work Phone: [facility] 08-04-2022 14:15-0400 SaO2% (BldA) [Mass fraction] 95 % Maxx Lozada MD Work Phone: [facility] 08-04-2022 14:15-0400 Systolic blood pressure 130 mm[Hg] Maxx Lozada MD Work Phone: [facility] 08-07-2017 13:26-0400 BMI (Body Mass Index) 32.74 kg/m2 Leelee De Leon LPN [facility] Work Phone: 08-07-2017 13:26-0400 Body Temperature 97.7 [degF] Leelee De Leon LPN [facility] Work Phone: 08-07-2017 13:26-0400 BP Diastolic 78 mm[Hg] Leelee De Leon LPN [facility] Work Phone: 08-07-2017 13:-040 BP Systolic 122 mm[Hg] Leelee De Leon LPN [facility] Work Phone: 08-07-2017 13:-040 Height 187.96 cm Leelee De Leon LPN [facility] Work Phone: 08-07-2017 13:26-0400 Pulse (Heart Rate) 87 /min Leelee De Leon LPN [facility] Work Phone: 08-07-2017 13:-040 Respiratory Rate 16 /min Leelee De Leon LPN [facility] Work Phone: 08-07-2017 13:-0400 Weight 115.67 kg Leelee De Leon LPN [facility] Work Phone: Encounters Encounter Date Encounter Type Care Provider Facility Start: 02-14-2023 End: 02-14-2023 ambulatory [facility] Facility:[facility] Start: 02-14-2023 End: 02-14-2023 Patient encounter procedure Renee Conde APRN.MOUNTING MACHINE OPERATOR Work Phone: [facility] Procedures Date Procedure Procedure Detail Performing Clinician Start: 10-20-2022 COVID WITH FLUA+B, ROUTINE Jarod Felton APRN.MOUNTING MACHINE OPERATOR Work Phone: Start: 05-10-2018 Extraction of Iliac Bone Marrow, Percutaneous Approach JAREK GRAY Start: 05-10-2018 Fusion of 2 or more Cervical Vertebral Joints with Autologous Tissue Substitute, Posterior Approach, Posterior Column, Open Approach JAREK GRAY Start: 05-10-2018 Monitoring of Periph eral Nervous Electrical Activity, Intraoperative, External Approach JAREK GRAY Plan of Treatment Date Care Activity Detail Author Start: 08-18-2025 DIABETES SCREEN DIABETES SCREEN [facility] Start: 05-31-2024 Urine microalbumin profile DTAP,TDAP,TD (2 - Td or Tdap) [facility] Start: 10-19-2022 ADVANCE DIRECTIVE DISCUSSION ADVANCE DIRECTIVE DISCUSSION [facility] Start: 10-19-2022 DEPRESSION ASSESSMENT DEPRESSION ASS ESSMENT [facility] Start: 06-19-2022 Influenza vaccination INFLUENZA (#1) [facility] Start: 12-04-2021 COVID-19 VACCINE (4 - Booster for Pfizer series) COVID-19 VACCINE (4 - Booster for Pfizer series) [facility] Start: 10-19-2021 ADVANCE DIRECTIVE DISCUSSION ADVANCE DIRECTIVE DISCUSSION [facility] Start: 10-19-2021 DEPRESSION ASSESSMENT DEPRESSION ASS [facility] Start: 02-24-2019 DIABETES SCREEN DIABETES SCREEN [facility] Start: 08-07-2017 End: 08-07-2017 Appointment Appointment [facility] Work Phone: Start: 05-10-2013 Hepatitis B surface antibody level LDL CHOLESTEROL [facility] Start: 02-19-1996 SHINGRIX VACCINE (1 of 2) SHINGRIX VACCINE (1 of 2) [facility] Start: 02-19-1964 ANNUAL PCP TEAM PRODUCTION WORKER CHRISTINE DISEASE VISIT ANNUAL PCP TEAM CHRONIC DISEASE VISIT [facility] Start: 02-19-1964 HEPATITIS C SCREENING HEPATITIS C [facility] Patient Education DERMATITIS [facility] Immunization Date Immunization Notes Care Provider Beck fletcher 07-18-2016 influenza, high dose seasonal, preservative-free Maxx Lozada MD Work Phone: [facility] Work Phone: 07-11-2015 influenza, high dose seasonal, preservative-free Maxx Lozada MD Work Phone: [facility] 07-11-2015 pneumococcal conjuga te vaccine, 13 valent Maxx Lozada MD Work Phone: [facility] 07-07-2014 influenza, high dose seasonal, preservative-free Maxx Lozada MD Work Phone: [facility] 05-31-2014 tetanus toxoid, redu kendra diphtheria toxoid, and acellular pertussis vaccine, adsorbed Maxx Lozada MD Work Phone: [facility] 05-31-2014 typhoid vaccine, unspecified formulation Maxx Lozada MD Work Phone: [facility] 08-17-2013 pneumococcal polysaccharide vaccine, 23 valent Maxx Lozada MD Work Phone: [facility] 08-03-2013 influenza virus vacc ine, unspecified formulation Maxx Lozada MD Work Phone: [facility] Payers Date Payer Category Payer Unknown [id number] 2011 Unknown HOSPITAL/MEDICAL GENERIC MEDICAL GENERIC [id number] 2011-Present [phone] [address] [place] [address] Indemnity [id number] 2011 Medicare [id number] 2011 Medicare MEDICARE MEDICAR E A AND B [id number] 2011-Present [phone] [address] [address] [place] [address] Medicare [id number] 1959 Medicare [id number] 1945 Unknown [id number] 1945 Unknown [id number] 1945 Unknown [id number] 1945 Unknown [id number] 1945 Unknown [id number] 1945 Unknown [id number] Social History Date Type Detail Facility Start: 08-23-2012 End: 08-18-2022 Tobacco smoking status NHIS Ex-smoker [facility] End: 10-19-1967 History of tobacco use Current smoker [facility] End: 10-19-1967 History of tobacco use Cigarette Smoker [facility] Start: 08-23-2012 End: 08-18-2022 Tobacco use and exposure Smokeless tobacco non-user [facility] Start: 08-04-2022 End: 02-14-2023 Alcohol intake Current non-drinker of alcohol (finding) [facility] Start: 1945 Sex Assigned At Not on file C [facility] Start: 07-25-2022 End: 09-17-2022 Exposure to SARS-CoV-2 (event) Not sure [facility] Medical Equipment Procedure Code Equipment Code Equipment Origin al Text Equipment Identifier Dates [id number]-C-Kind Im plant - [id number] Start: 08-23-2014 Screw Bn 2.7mm 1 6mm Lcp Ss - [id number] Start: 08-23-2014 Mesh Surgipro La rge Polypropylene Surgical Nonabsorbable Plug Knitted - [id number] Start: 09-10-2022 Clinical Notes 01-04-2015 to 02-14-2023 Renee Conde APRN.[facility] - 02/14/2023 11:13 AM EDTPatient InstructionsJarod Felton APRN.MOUNTING MACHINE OPERATOR - 10/20/2022 4:25 PM ESTPatient InstructionsMarcella Peraza PA-C - 09/17/2022 10:04 AM EST Note Date & Type Note Facility 02-14-2023 Note HNO ID: [id number] Author: Renee Conde APRN.[facility] Service: ? Author Type: Nurse Practitioner Type: Progress Notes Filed: 02/14/2023 11:20 AM Note Text: Subjective HPI [place] presents today with 5 days hx of cough and congestion increased over the last two days, has hx of asthma has been using abuterol twice daily the last two days, felt feverish yesterday. His was in yesterday and has similar symptoms. PAST MEDICAL HISTORY Diagnosis Date Anemia Asthma Avascular necrosis (HCC) left hip Bilateral cataracts CAD (coronary artery disease) Reportedly clean heart cath January, Celiac disease Diverticulosis of colon (without mention of hemorrhage) DVT (deep venous thrombosis) (HCC) Esophageal reflux Esophagitis, unspecified GERD (gastroesophageal reflux disease) Glaucoma fixed Incisional hernia Internal hemorrhoids without mention of complication Nausea alone Osteoporosis Restless leg Rhinitis, allergic Right inguinal hernia 6/23/14 Snoring Sprue PAST SURGICAL HISTORY Procedure Laterality Date ARTHRP ACETBLR/PROX FEM PROSTC AGRFT/ALGRFT pt had 2 hip surgeries and then replacement, left CATARACT SURGERY, COMPLEX bilateral CHOLECYSTECTOMY COLONOSCOPY FLX DX W/COLLJ SPEC WHEN PFRMD Colonoscopy COLONOSCOPY FLX DX W/COLLJ SPEC WHEN PFRMD 08/13/2010 EGD TRANSORAL BIOPSY SINGLE/MULTIPLE 08/13/2010 ESOPHAGOGASTRODUODENOSCOPY TRANSORAL DIAGNOSTIC 01/04/2015 EGD ESOPHAGOGASTRODUODENOSCOPY TRANSORAL DIAGNOSTIC 04/03/2016 EGD IMPLANT MESH OPN HERNIA RPR/DEBRIDEMENT CLOSURE 05/10/2015 left wrist surgery 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 REPAIR INCISIONAL HERNIA with mesh, ventral REPAIR ING HERNIA,5+Y/O,REDUCIBL Left 09/10/2022 RPR 1ST INGUN HRNA AGE 5 YRS/> REDUCIBLE 04/10/2014 Right ALLERGIES Wheat Gluten and Adhesive MEDICATIONS levothyroxine (SYNTHROID) 88 mcg tabletTake 88 mcg by mouth once daily.Disp: Rfl: fluticasone-salmeterol (ADVAIR DISKUS) 100-50 mcg/dose inhalerInhale 1 Puff as instructed twice daily.Disp: Rfl: latanoprost (XALATAN) 0.005 % ophthalmic solutionUse in both eyes once daily.Disp: Rfl: benralizumab (FASENRA) 30 mg/mL injectionInject subcutaneously every 8 weeks.Disp: Rfl: denosumab (PROLIA) 60 mg/mLInject subcutaneously once every 6 months.Disp: Rfl: ibuprofen (MOTRIN) 200 mg tabletTake 200 mg by mouth every 6 hours as needed. With food.Disp: Rfl: ergocalciferol, vitamin D2, (DRISDOL) 50,000 unit capsuleTake 1 capsule by mouth once each week.Disp: Rfl: 0 tamsulosin ER (FLOMAX) 0.4 mg [id number] 1 CAPSULE BY MOUTH ONCE DAILY.Disp: 90 capsuleRfl: [address] (PROTONIX) 40 mg tabletTAKE 1 TABLET BY MOUTH ONCE DAILY.Disp: 30 tabletRfl: 0 fluticasone (FLONASE) 50 mcg/actuation nasal sprayUse 2 Sprays in each nostril once daily.Disp: 1 BottleRfl: 6 albuterol HFA (PROAIR HFA) 90 mcg/actuation inhalerInhale 2 Puffs as instructed every 6 hours as needed.Disp: 1 InhalerRfl: 2 cyclobenzaprine (FLEXERIL) 10 mg tabletTAKE 1/2 TO 1 TABLET BY MOUTH 3 TIMES DAILY NEEDED FOR SPASMSDisp: Rfl: FAMILY HISTORY Problem Relation Age of Onset Heart Mother COPD Mother Prostate Cancer Father in his 60's other (Other) Brother non-malig tumor in the brain No Known Problems Brother No Known Problems Brother No Known Problems Maternal Grandmother No Known Problems Maternal Grandfather No Known Problems Paternal Grandmother No Known Problems Paternal Grandfather other (Other) Son non-malig tumor in bone of leg other (Arthritis fam hx.) Other other (cardiovascular disease fam hx.) Other other (Osteoporosis fam hx) Other Social History Tobacco Use Smoking status: Former Types: Cigarettes Quit date: 10/19/1967 Years since quittin.3 Smokeless tobacco: Never Vaping Use Vaping Use: Never used Substance Use Topics Alcohol use: No Drug use: No Review of Systems Respiratory: Positive for cough and wheezing. All other systems reviewed and are negative. Objective Physical Exam Vitals and nursing note reviewed. Constitutional: Appearance: Normal appearance. HENT: Head: Normocephalic and atraumatic. Right Ear: Tympanic membrane and ear canal normal. Left Ear: Tympanic membrane and ear canal normal. Nose: Congestion present. Mouth/Throat: Mouth: Mucous membranes are dry. Eyes: Extraocular Movements: Extraocular movements intact. Pupils: Pupils are equal, round, and reactive to light. Cardiovascular: Rate and Rhythm: Normal rate and regular rhythm. Pulses: Normal pulses. Heart sounds: Normal heart sounds. No murmur heard. Pulmonary: Effort: Pulmonary effort is normal. No respiratory distress. Breath sounds: Normal breath sounds. No stridor. No rhonchi or rales. Wheezes: slight. Chest: Chest wall: No tenderness. Abdominal: General: Abdomen is flat. (more content not included)... [facility] 02-14-2023 History of Present illness Narrative Subjective HPI Wellington presents today with 5 days hx of cough and congestion increased over the last two days, has hx of asthma has been using abuterol twice daily the last two days, felt feverish yesterday. His was in yesterday and has similar symptoms. PAST MEDICAL HISTORY Diagnosis Date Anemia Asthma Avascular necrosis (HCC) left hip Bilateral cataracts CAD (coronary artery disease) Reportedly clean heart cath January, Celiac disease Diverticulosis of colon (without mention of hemorrhage) DVT (deep venous thrombosis) (HCC) Esophageal reflux Esophagitis, unspecified GERD (gastroesophageal reflux disease) Glaucoma fixed Incisional hernia Internal hemorrhoids without mention of complication Nausea alone Osteoporosis Restless leg Rhinitis, allergic Right inguinal hernia 04/10/14 Snoring Sprue PAST SURGICAL HISTORY Procedure Laterality Date ARTHRP ACETBLR/PROX FEM PROSTC AGRFT/ALGRFT pt had 2 hip surgeries and then replacement, left CATARACT SURGERY, COMPLEX bilateral CHOLECYSTECTOMY COLONOSCOPY FLX DX W/COLLJ SPEC WHEN PFRMD Colonoscopy COLONOSCOPY FLX DX W/COLLJ SPEC WHEN PFRMD 08/13/2010 EGD TRANSORAL BIOPSY SINGLE/MULTIPLE 08/13/2010 ESOPHAGOGASTRODUODENOSCOPY TRANSORAL DIAGNOSTIC 01/04/2015 EGD ESOPHAGOGASTRODUODENOSCOPY TRANSORAL DIAGNOSTIC 04/03/2016 EGD IMPLANT MESH OPN HERNIA RPR/DEBRIDEMENT CLOSURE 05/10/2015 left wrist surgery 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 REPAIR INCISIONAL HERNIA with mesh, ventral REPAIR ING HERNIA,5+Y/O,REDUCIBL Left 09/10/2022 RPR 1ST INGUN HRNA AGE 5 YRS/> REDUCIBLE 04/10/2014 Right ALLERGIES Wheat Gluten and Adhesive MEDICATIONS levothyroxine (SYNTHROID) 88 mcg tablet^Take 88 mcg by mouth once daily.^Disp: ^Rfl: fluticasone-salmeterol (ADVAIR DISKUS) 100-50 mcg/dose inhaler^Inhale 1 Puff as instructed twice daily.^Disp: ^Rfl: latanoprost (XALATAN) 0.005 % ophthalmic solution^Use in both eyes once daily.^Disp: ^Rfl: benralizumab (FASENRA) 30 mg/mL injection^Inject subcutaneously every 8 weeks.^Disp: ^Rfl: denosumab (PROLIA) 60 mg/mL^Inject subcutaneously once every 6 months.^Disp: ^Rfl: ibuprofen (MOTRIN) 200 mg tablet^Take 200 mg by mouth every 6 hours as needed. With food.^Disp: ^Rfl: ergocalciferol, vitamin D2, (DRISDOL) 50,000 unit capsule^Take 1 capsule by mouth once each week.^Disp: ^Rfl: 0 tamsulosin ER (FLOMAX) 0.4 mg cp24^TAKE 1 CAPSULE BY MOUTH ONCE DAILY.^Disp: 90 capsule^Rfl: [address] (PROTONIX) 40 mg tablet^TAKE 1 TABLET BY MOUTH ONCE DAILY.^Disp: 30 tablet^Rfl: 0 fluticasone (FLONASE) 50 mcg/actuation nasal spray^Use 2 Sprays in each nostril once daily.^Disp: 1 Bottle^Rfl: 6 albuterol HFA (PROAIR HFA) 90 mcg/actuation inhaler^Inhale 2 Puffs as instructed every 6 hours as needed.^Disp: 1 Inhaler^Rfl: 2 cyclobenzaprine (FLEXERIL) 10 mg tablet^TAKE 1/2 TO 1 TABLET BY MOUTH 3 TIMES DAILY NEEDED FOR SPASMS^Disp: ^Rfl: FAMILY HISTORY Problem Relation Age of Onset Heart Mother COPD Mother Prostate Cancer Father in his 60's other (Other) Brother non-malig tumor in the brain No Known Problems Brother No Known Problems Brother No Known Problems Maternal Grandmother No Known Problems Maternal Grandfather No Known Problems Paternal Grandmother No Known Problems Paternal Grandfather other (Other) Son non-malig tumor in bone of leg other (Arthritis fam hx.) Other other (cardiovascular disease fam hx.) Other other (Osteoporosis fam hx) Other Social History Tobacco Use Smoking status: Former Types: Cigarettes Quit date: 10/19/1967 Years since quittin.3 Smokeless tobacco: Never Vaping Use Vaping Use: Never used Substance Use Topics Alcohol use: No Drug use: No Review of Systems Respiratory: Positive for cough and wheezing. All other systems reviewed and are negative. Objective Physical Exam Vitals and nursing note reviewed. Constitutional: Appearance: Normal appearance. HENT: Head: Normocephalic and atraumatic. Right Ear: Tympanic membrane and ear canal normal. Left Ear: Tympanic membrane and ear canal normal. Nose: Congestion present. Mouth/Throat: Mouth: Mucous membranes are dry. Eyes: Extraocular Movements: Extraocular movements intact. Pupils: Pupils are equal, round, and reactive to light. Cardiovascular: Rate and Rhythm: Normal rate and regular rhythm. Pulses: Normal pulses. Heart sounds: Normal heart sounds. No murmur heard. Pulmonary: Effort: Pulmonary effort is normal. No respiratory distress. Breath sounds: Normal breath sounds. No stridor. No rhonchi or rales. Wheezes: slight. Chest: Chest wall: No tenderness. Abdominal: General: Abdomen is flat. Palpations: Abdomen is soft. Musculoskeletal: General: Normal range of motion. Cervical back: Normal range of motion and neck supple. Skin: General: Skin is warm and dry. Neurological: General: No focal deficit present. Mental Status: He is alert and oriented to person, place, and time. ASSESSMENT/PLAN: 1. 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 maury [id number]_Cncov [employer] (MIGEL)_EUA This test was developed and its performance characteristics determined by [facility]'s [facility] [place]. This test has been authorized by FDA under an Emergency Use Authorization (EUA). This test has been validated in accordance with the FDA's Guidance Document Policy for Diagnostics Testing in Laboratories Certified to Perform High Complexity Testing under CLIA prior to Emergency use Authorization for Coronavirus Disease 2019 during the Public Health Emergency issued on December 17, 2019. Test performed by [facility], [facility] [place], [address] [place] [address]. INFLUENZA A PCR: Negative for Influenza A by RT-PCR INFLUENZA B PCR: Negative for Influenza B by RT-PCR [facility] documented as of this encounter (statuses as of 09/23/2022) [facility]11-23-2022 History of Past illness Narrative* Problem Noted Date Resolved Date Left inguinal hernia 09/10/2022 09/10/2022 Acute gastritis without mention of hemorrhage 01/04/2015 Abdominal pain, epigastric 01/04/201501/04 documented as of this encounter (statuses as of 10/23/2022) [facility]11-23-2022 History of Past illness Narrative* Problem Noted Date Resolved Date Left inguinal hernia 09/10/2022 09/10/2022 Acute gastritis without mention of hemorrhage 01/04/2015 Abdominal pain, epigastric 01/04/201501/04 documented as of this encounter (statuses as of 02/14/2023) [facility]10-17-2022 NoteHNO ID: [id number] Author: Maxx Lozada MD Service: ? Author Type: Physician Type: Progress Notes Filed: 08/04/2022 2:40 PM Note Text: HISTORY AND PHYSICAL Wellington Boswell 1945 REFERRING PHYSICIAN: Randa Joseph DO CHIEF COMPLAINT: Consult HPI: Wellington is a 77 year old male with a complaint of a bulge and discomfort in his left inguinal region. The patient notes discomfort in this area with lifting and straining. The symptoms have increased, over the past 3 months. The patient notes no symptoms of bowel obstruction and denies nausea or vomiting. The patient was seen by his primary care physician who felt the patient has a hernia. Wellington was referred for evaluation and treatment. The patient is being seen by me today at the request of Dr. Peter Finney MD for my opinion and advice regarding Left inguinal hernia (primary encounter diagnosis). PAST MEDICAL HISTORY Diagnosis Date Anemia Asthma Avascular necrosis (HCC) left hip Bilateral cataracts CAD (coronary artery disease) Reportedly clean heart cath January, Celiac disease Diverticulosis of colon (without mention of hemorrhage) DVT (deep venous thrombosis) (HCC) Esophageal reflux Esophagitis, unspecified GERD (gastroesophageal reflux disease) Glaucoma fixed Incisional hernia Internal hemorrhoids without mention of complication Nausea alone Osteoporosis Restless leg Rhinitis, allergic Right inguinal hernia 04/10/14 Snoring Sprue PAST SURGICAL HISTORY Procedure Laterality Date ARTHRP ACETBLR/PROX FEM PROSTC AGRFT/ALGRFT pt had 2 hip surgeries and then replacement, left CATARACT SURGERY, COMPLEX bilateral CHOLECYSTECTOMY COLONOSCOPY FLX DX W/COLLJ SPEC WHEN PFRMD Colonoscopy COLONOSCOPY FLX DX W/COLLJ SPEC WHEN PFRMD 08/13/10 EGD TRANSORAL BIOPSY SINGLE/MULTIPLE 08/13/10 ESOPHAGOGASTRODUODENOSCOPY TRANSORAL DIAGNOSTIC 01/04/2015 EGD ESOPHAGOGASTRODUODENOSCOPY TRANSORAL DIAGNOSTIC 04/03/16 EGD IMPLANT MESH OPN HERNIA RPR/DEBRIDEMENT CLOSURE 05/10/2015 left wrist surgery 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 REPAIR INCISIONAL HERNIA with mesh, ventral RPR 1ST INGUN HRNA AGE 6 YRS/> REDUCIBLE 04/10/14 Right Current Outpatient Medications Medication Sig benralizumab (FASENRA) 30 mg/mL injection Inject subcutaneously every 8 weeks. denosumab (PROLIA) 60 mg/mL Inject subcutaneously once every 6 months. ibuprofen (MOTRIN) 200 mg tablet Take 200 mg by mouth every 6 hours as needed. With food. ergocalciferol, vitamin D2, (DRISDOL) 50,000 unit capsule Take 1 capsule by mouth once each week. tamsulosin ER (FLOMAX) 0.4 mg cp24 TAKE 1 CAPSULE BY MOUTH ONCE DAILY. pantoprazole DR (PROTONIX) 40 mg tablet TAKE 1 TABLET BY MOUTH ONCE DAILY. fluticasone (FLONASE) 50 mcg/actuation nasal spray Use 2 Sprays in each nostril once daily. latanoprost (XALATAN) 0.005 % ophthalmic solution Use in both eyes once daily. Testosterone 12.5 mg/ 1.25 gram (1 %) glpm Apply 1 Pump as directed once daily. fluticasone-salmeterol (ADVAIR DISKUS) 500-50 mcg/dose dsdv Inhale 1 Puff as instructed twice daily. clonazePAM (KLONOPIN) 1 mg tablet Take 1 tablet by mouth once daily. Along with the 0.5 mg tab clonazePAM (KLONOPIN) 0.5 mg tablet Take 1 tablet by mouth daily at bedtime. takes with 1mg tablet at bedtime pramipexole (MIRAPEX) 1.5 mg tablet Take 1 tablet by mouth daily at bedtime. (Patient not taking: Reported on 08/04/2022) albuterol HFA (PROAIR HFA) 90 mcg/actuation inhaler Inhale 2 Puffs as instructed every 6 hours as needed. (Patient not taking: Reported on 08/04/2022) No current facility-administered medications for this visit. ALLERGIES: Wheat Gluten and Adhesive PERSONAL HISTORY: Social History Tobacco Use Smoking status: Former Types: Cigarettes Quit date: 10/19/1967 Years since quittin.8 Smokeless tobacco: Never Vaping Use Vaping Use: Never used Substance Use Topics Alcohol use: No Drug use: No FAMILY HISTORY: FAMILY HISTORY Problem Relation Age of Onset Heart Mother COPD Mother Prostate Cancer Father in his 60's other (Other) Brother non-malig tumor in the brain No Known Problems Brother No Known Problems Brother No Known Problems Maternal Grandmother No Known Problems Maternal Grandfather No Known Problems Paternal Grandmother No Known Problems Paternal Grandfather other (Other) Son non-malig tumor in bone of leg other (Arthritis fam hx.) Other other (cardiovascular disease fam hx.) Other other (Osteoporosis fam hx) Other REVIEW OF SYMPTOMS: The review of systems data was entered by the nurse and reviewed by me Nursing Notes: Shanti Lei MONIE 08/04/2022 2:28 PM Sign at exiting of workspace REVIEW OF SYSTEMS: General: The patient NOTES fatigue, denies weight loss, denies weight gain, denies feeling hot, an (more content not included)...[facility]10-17-2022 History of Present illness Narrative* Maxx Lozada MD - 08/04/2022 2:29 PM EDT HISTORY AND PHYSICAL Wellington Boswell 1945 REFERRING PHYSICIAN: Randa Joseph DO CHIEF COMPLAINT: Consult HPI: Wellington is a 77 year old male with a complaint of a bulge and discomfort in his left inguinal region. The patient notes discomfort in this area with lifting and straining. The symptoms have increased, over the past 3 months. The patient notes no symptoms of bowel obstruction and denies nausea or vomiting. The patient was seen by his primary care physician who felt the patient has a hernia. Wellington was referred for evaluation and treatment. The patient is being seen by me today at the request of Dr. Peter Finney MD for my opinion and advice regarding Left inguinal hernia (primary encounter diagnosis). PAST MEDICAL HISTORY Diagnosis Date Anemia Asthma Avascular necrosis (HCC) left hip Bilateral cataracts CAD (coronary artery disease) Reportedly clean heart cath January, Celiac disease Diverticulosis of colon (without mention of hemorrhage) DVT (deep venous thrombosis) (HCC) Esophageal reflux Esophagitis, unspecified GERD (gastroesophageal reflux disease) Glaucoma fixed Incisional hernia Internal hemorrhoids without mention of complication Nausea alone Osteoporosis Restless leg Rhinitis, allergic Right inguinal hernia 04/10/14 Snoring Sprue PAST SURGICAL HISTORY Procedure Laterality Date ARTHRP ACETBLR/PROX FEM PROSTC AGRFT/ALGRFT pt had 2 hip surgeries and then replacement, left CATARACT SURGERY, COMPLEX bilateral CHOLECYSTECTOMY COLONOSCOPY FLX DX W/COLLJ SPEC WHEN PFRMD Colonoscopy COLONOSCOPY FLX DX W/COLLJ SPEC WHEN PFRMD 08/13/10 EGD TRANSORAL BIOPSY SINGLE/MULTIPLE 08/13/10 ESOPHAGOGASTRODUODENOSCOPY TRANSORAL DIAGNOSTIC 01/04/2015 EGD ESOPHAGOGASTRODUODENOSCOPY TRANSORAL DIAGNOSTIC 04/03/16 EGD IMPLANT MESH OPN HERNIA RPR/DEBRIDEMENT CLOSURE 05/10/2015 left wrist surgery 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 REPAIR INCISIONAL HERNIA with mesh, ventral RPR 1ST INGUN HRNA AGE 6 YRS/> REDUCIBLE 04/10/14 Right Current Outpatient Medications Medication Sig benralizumab (FASENRA) 30 mg/mL injection Inject subcutaneously every 8 weeks. denosumab (PROLIA) 60 mg/mL Inject subcutaneously once every 6 months. ibuprofen (MOTRIN) 200 mg tablet Take 200 mg by mouth every 6 hours as needed. With food. ergocalciferol, vitamin D2, (DRISDOL) 50,000 unit capsule Take 1 capsule by mouth once each week. tamsulosin ER (FLOMAX) 0.4 mg cp24 TAKE 1 CAPSULE BY MOUTH ONCE DAILY. pantoprazole DR (PROTONIX) 40 mg tablet TAKE 1 TABLET BY MOUTH ONCE DAILY. fluticasone (FLONASE) 50 mcg/actuation nasal spray Use 2 Sprays in each nostril once daily. latanoprost (XALATAN) 0.005 % ophthalmic solution Use in both eyes once daily. Testosterone 12.5 mg/ 1.25 gram (1 %) glpm Apply 1 Pump as directed once daily. fluticasone-salmeterol (ADVAIR DISKUS) 500-50 mcg/dose dsdv Inhale 1 Puff as instructed twice daily. clonazePAM (KLONOPIN) 1 mg tablet Take 1 tablet by mouth once daily. Along with the 0.5 mg tab clonazePAM (KLONOPIN) 0.5 mg tablet Take 1 tablet by mouth daily at bedtime. takes with 1mg tablet at bedtime pramipexole (MIRAPEX) 1.5 mg tablet Take 1 tablet by mouth daily at bedtime. (Patient not taking: Reported on 08/04/2022) albuterol HFA (PROAIR HFA) 90 mcg/actuation inhaler Inhale 2 Puffs as instructed every 6 hours as needed. (Patient not taking: Reported on 08/04/2022) No current facility-administered medications for this visit. ALLERGIES: Wheat Gluten and Adhesive PERSONAL HISTORY: Social History Tobacco Use Smoking status: Former Types: Cigarettes Quit date: 10/19/1967 Years since quittin.8 Smokeless tobacco: Never Vaping Use Vaping Use: Never used Substance Use Topics Alcohol use: No Drug use: No FAMILY HISTORY: FAMILY HISTORY Problem Relation Age of Onset Heart Mother COPD Mother Prostate Cancer Father in his 60's other (Other) Brother non-malig tumor in the brain No Known Problems Brother No Known Problems Brother No Known Problems Maternal Grandmother No Known Problems Maternal Grandfather No Known Problems Paternal Grandmother No Known Problems Paternal Grandfather other (Other) Son non-malig tumor in bone of leg other (Arthritis fam hx.) Other other (cardiovascular disease fam hx.) Other other (Osteoporosis fam hx) Other REVIEW OF SYMPTOMS: The review of systems data was entered by the nurse and reviewed by ar Nursing Notes: Shanti Lei LPN 08/04/2022 2:28 PM Sign at exiting of workspace REVIEW OF SYSTEMS: General: The patient NOTES fatigue, denies weight loss, denies weight gain, denies feeling hot, anddenies feelings of cold. Eyes: The patient denies glaucoma, NOTES eye injury/surgery, wears glasses . Ear/Nose/Throat: The patient denies allergies, denies hayfever, denies ear infections, and denies bloody noses. Cardiovascular: The patient denies chest pain, denies heart disease, denies high blood pressure,denies cardiac stent, denies prior heart attack, denies irregular heart beat, denies high cholesterol, NOTES poor circulation, denies heart failure, other cardiac issues, denies claudication, denies coldfeet, denies peripheral arterial stent. Respiratory: The patient denies tuberculosis, denies pneumonia, denies frequent cough, denies pulmonary embolism, denies shortness of breath, and denies coughing up blood. Gastrointestinal: The patient denies difficulty swallowing, denies acid reflux, denies ulcers, denies vomiting, denies jaundice/hepatitis, denies gallbladder problems, denies black or tarry stools, denies hemorrhoids, denies bleeding from rectum, denies diverticulitis, denies constipation, denies diarrhea, denies loss of stool control, and denies hernias. Kidney/Bladder: The patient denies kidney stones, denies urine infections, and denies bloody urine. Skin: The patient denies a history of skin cancer, denies bleeding/changing moles, and denies a history of skin rash. Neurologic: The patient denies a history of epilepsy/convulsions, denies headaches, denies head/spinal injuries, and denies stroke/TIA. Psychiatric: The patient denies psychiatric medications, denies depression, and denies voices, denies substance abuse. Endocrine: The patient denies thyroid disorders, denies diabetes, and denies hormonal problems. Hematologic: The patient denies a history of bruising, denies bleeding, and denies anemia, NOTES history blood clots. Infections: The patient NOTES a history of measles and mumps, denies rheumatic fever, and denies sexually transmitted diseases. Musculoskeletal: The patient NOTES back pain/injury, NOTES back problems, denies sciatica, denies knee/foot trouble, denies arthritis, or denies gout. When was patient's last Mammogram screening? N/A Last Colonoscopy: Unknown Shanti Quique SUPERVISOR FILES PHYSICAL EXAMINATION: General: The patient is 77 year old male, well nourished, well hydrated in no acute distress. The patient is oriented to time, place, and person. VITALS: Blood pressure 130/70, pulse 80, temperature 36.6 C (97.9 F), temperature source Temporal, resp. rate 16, height 182.9 cm (6'), weight 112.9 kg (249 lb), SpO2 95 %. Body mass index is 33.77 kg/m . HEENT: Normal cephalic, ataumatic, pupils are equally round, sclera are anicteric, mucous membranesare moist, oropharynx is clear. Neck has no masses, asymmetry or lymphadenopathy. Thyroid is unremarkable. Respiratory: Clear to auscultation and percussion. Normal respiratory excursion and pattern. Cardiac: Examination is regular rate and rhythm. Abdominal exam: Soft, nontender, with no palpable masses. No hepatosplenomegaly. A moderate reducible left inguinal hernia, no right inguinal or umbilical hernias are noted Rectal exam: exam deferred Extremities: no clubbing, cyanosis or edema. No adenopathy. Other: LABORATORY VALUES: As Noted RADIOLOGIC STUDIES: As Noted Assessment IMPRESSION: left inguinal hernia PLAN: My plan is to perform a open left inguinal hernia repair with mesh. The planned surgical procedure was discussed extensively with the patient. The risks, benefits, anticipated outcomes and possible complications were mentioned. Wellington crenshawands that all hernia repair surgery has a chance of recurrence and/or chronic post operative pain. My staff has also explained the procedure in understandable terms and the patient was given the option to take printed material concerning the planned procedure. The patient had the opportunity to ask questions concerning the planned procedure. The patient freely consents to the planned procedure. A letter was sent to Dr. Peter Finney MD indicating the above finding for this patient. Diagnoses: (K40.90) Left inguinal hernia (primary encounter diagnosis) Anticipated CPT Code: open left inguinal hernia repair with mesh - recurrent - [id number] Anticipated Anesthetic: General Patient weight: Blood pressure 130/70, pulse 80, temperature 36.6 C (97.9 F), temperature source Temporal, resp. rate 16, height 182.9 cm (6'), weight 112.9 kg (249 lb), SpO2 95 %. BMI: Body mass index is 33.77 kg/m . Planned antibiotic: Ancef 2gm IVPB tanning consultant to OR SCDs needed - Yes Return to Clinic: The patient is instructed to follow-up with me 1 week post operatively. COVID (Procedure Consent) Procedure Criteria Procedure Criteria: Yes Elective The surgeon/proceduralist and patient have discussed in detail therisk of exposure to and/or potential harm posed by the COVID-19 virus with having a surgery/procedure at this time versus the risk of delaying the surgery/procedure. It is not possible to know eitherthe risk of delaying the surgery or procedure or chance of getting an infection with perfect accuracy, but a joint decision was made between the patient and the surgeon/proceduralist to proceed at this time with the scheduled surgery/procedure as indicated on the consent form. Maxx Lozada III, MD [facility]* Shanti Lei SUPERVISOR FILES - 08/04/2022 2:22 PM EDT REVIEW OF SYSTEMS: General: The patient NOTES fatigue, denies weight loss, denies weight gain, denies feeling hot, anddenies feelings of cold. Eyes: The patient denies glaucoma, NOTES eye injury/surgery, wears glasses . Ear/Nose/Throat: The patient denies allergies, denies hayfever, denies ear infections, and denies bloody noses. Cardiovascular: The patient denies chest pain, denies heart disease, denies high blood pressure,denies cardiac stent, denies prior heart attack, denies irregular heart beat, denies high cholesterol, NOTES poor circulation, denies heart failure, other cardiac issues, denies claudication, denies coldfeet, denies peripheral arterial stent. Respiratory: The patient denies tuberculosis, denies pneumonia, denies frequent cough, denies pulmonary embolism, denies shortness of breath, and denies coughing up blood. Gastrointestinal: The patient denies difficulty swallowing, denies acid reflux, denies ulcers, denies vomiting, denies jaundice/hepatitis, denies gallbladder problems, denies black or tarry stools, denies hemorrhoids, denies bleeding from rectum, denies diverticulitis, denies constipation, denies diarrhea, denies loss of stool control, and denies hernias. Kidney/Bladder: The patient denies kidney stones, denies urine infections, and denies bloody urine. Skin: The patient denies a history of skin cancer, denies bleeding/changing moles, and denies a history of skin rash. Neurologic: The patient denies a history of epilepsy/convulsions, denies headaches, denies head/spinal injuries, and denies stroke/TIA. Psychiatric: The patient denies psychiatric medications, denies depression, and denies voices, denies substance abuse. Endocrine: The patient denies thyroid disorders, denies diabetes, and denies hormonal problems. Hematologic: The patient denies a history of bruising, denies bleeding, and denies anemia, NOTES history blood clots. Infections: The patient NOTES a history of measles and mumps, denies rheumatic fever, and denies sexually transmitted diseases. Musculoskeletal: The patient NOTES back pain/injury, NOTES back problems, denies sciatica, denies knee/foot trouble, denies arthritis, or denies gout. When was patient's last Mammogram screening? N/A Last Colonoscopy: Unknown [facility]anti Lei LPN [facility] of Past illness Narrative* Problem Noted Date Resolved Date Acute gastritis without mention of hemorrhage 01/04/2015 Abdominal pain, epigastric 01/04/201501/04 documented as of this encounter (statuses as of 08/04/2022) [facility] Diagnosis Left inguinal hernia- Primary Inguinal hernia without mention of obstruction or gangrene, unilateral or unspecified, (not specified as recurrent) [facility] Diagnosis S/P hernia repair- Primary Other postprocedural status [facility] Diagnosis Lower resp. tract infection- Primary Other diseases of respiratory system, not elsewhere classified History of asthma Personal history of other diseases of respiratory system [facility] Diagnosis Lower respiratory infection- Primary Other diseases of respiratory system, not elsewhere classified documented [facility] Summary Purpose Family History No Family History Records FoundNo Family History Records FoundNo Family History Records FoundNo Family History Records FoundNo Family History Records Found Advance Directives No Advanced Directives Records FoundNo Advanced Directives Records FoundNo Advanced Directives Records FoundNo Advanced Directives Records FoundNo Advanced Directives Records Found Additional Source Comments (unrecognized sect ion and content) No Status Records FoundNo Status Records FoundNo Status Records FoundNo Status Records FoundNo Status Records Found INFORMATION SOURCE (unrecogn ized section and content) DATE CREATED AUTHOR AUTHOR'S ORGANIZ ATION 02/10/2019 [facility] DATE CREATED AUTHOR AUTHOR'S ORGANIZ ATION 02/10/2019 [facility] DATE CREATED AUTHOR AUTHOR'S ORGANIZ ATION 09/11/2022 [facility] DATE CREATED AUTHOR AUTHOR'S ORGANIZ ATION 02/14/2023 [facility] Source Comments (unrecognize d section and content) In the event this informatio n is protected by the Federal Confidentiality of Alcohol and Drug Abuse Patient Records regulations: The Federal rules restrict any use of the information to criminally investigate or prosecute any alcohol or drug abuse patient.[facility] the event this information is protected by the Federal Confidentiality of Alcohol and Drug Abuse Patient Records regulations: The Federal rules restrict any use of the information to criminally investigate or prosecute any alcohol or drug abuse patient.[facility] the event this information is protected by the Federal Confidentiality of Alcohol and Drug Abuse Patient Records regulations: The Federal rules restrict any use of the information to criminally investigate or prosecute any alcohol or drug abuse patient.[facility] the event this information is protected by the Federal Confidentiality of Alcohol and Drug Abuse Patient Records regulations: The Federal rules restrict any use of the information to criminally investigate or prosecute any alcohol or drug abuse patient.[facility] Reason for Visit (unrecogniz ed section and content) Reason Comments Follow Up Hernia repair Reason Comments Chest Congestion headache, cough, sor e throat, bodyaches x 5 days Reason Comments Nasal Congestion drainage, cough x 2 days Care Teams (unrecognized sec tion and content) Can Inspector Relationship Specialty Start Date End Date Randa JosephDO [address] [place] [address] PCP - General Family Medicine 09/10/22 Can Inspector Relationship Specialty Start Date End Date aRnda Joseph DO You [address] [place] [address] PCP - General Family Medicine 09/10/22 FOR RECORDS PERTAINING TO PATIENTS WHO ARE OR HAVE BEEN ENROLLED IN A CHEMICAL DEPENDENCY/SUBSTANCEABUSE PROGRAM, SOME INFORMATION MAY BE OMITTED. This clinical summary was aggregated from multiple sources. Caution should be exercised in using it in the provision of clinical care. This summary normalizes information from multiple sources, and as a consequence, information in this document may materially change the coding, format and clinical context of patient data. In addition, data may be omitted in some cases. CLINICAL DECISIONS SHOULD BE BASED ON THE PRIMARY CLINICAL RECORDS. [facility] provides no warranty or guarantee of the accuracy or completeness of information in this document.
== END 2023-10-15 14:44 | disposition home or self-care (01) ==
LOC: MEDOUTP 14:43
PROVIDERS: PCP Family Medicine; Referring Provider Nurse Practitioner Acute Care; Visit Provider Nurse Practitioner Acute Care
DX: J45.50 Severe persistent asthma, uncomplicated (principal)

== ENCOUNTER → 2023-10-20 | Outpatient (CLI) | payer MEDICARE, OTHER, SELFPAY ==
[2023-10-20 17:44] LABS: Absolute Lymphocyte Count 0.72 X10^3/uL (0.83-4.51); Absolute Neutrophil Count 2.2 X10^3/uL (2.0-7.7); Color, Urine Yellow (Yellow); Glucose, Dipstick Normal (Normal); Hematocrit 33.4 % (40-54); Hemoglobin 11.2 g/dL (13.0-16.5); Ketone-Dipstick Negative (Negative); Leukocyte Esterase-Dipstick 500 /ul (Negative); Lymphocyte # 0.72 X10^3/ul (0.83-4.51); Lymphocyte % 21.2 % (19-41); Mean Corp Hgb Conc 33.5 g/dL (32-36); Mean Corpuscular Hgb 31.8 pg (27.0-32.0); Mean Corpuscular Volume 94.9 fL (80-94); Mean Platelet Vol. 9.6 fl (6.2-12.0); Monocyte# 0.47 X10^3/uL; Monocyte% 13.8 % (0-10); NRBC Flagged by Analyzer 0 % (0-5); Neutrophil % 64.7 % (47-70); Nitrite-Dipstick Positive (Negative); Occult Blood-Urine 10 /ul (Negative); Platelet Count 239 K/mm3 (150-450); Protein-Dipstick Negative (Negative); RBC Distribution Width CV 13.9 % (11.6-14.6); RBC Distribution Width SD 48.4 fl (35.1-43.9); Red Blood Count 3.52 M/mm3 (4.6-6.2); Urine Bilirubin Dipstick Negative (Negative); Urine Clarity Sl. Cloudy (Clear); Urine Urobilinogen Normal (Normal); Urine pH 6.5 (5.0 - 8.0); White Blood Count 3.4 K/mm3 (4.4-11.0)
== END | disposition home or self-care (01) ==
LOC: BFHLAB 16:40
PROVIDERS: PCP Family Medicine; Visit Provider Family Medicine
DX: K62.5 Hemorrhage of anus and rectum (principal); R31.9 Hematuria, unspecified
CPT/HCPCS: 36415; 81002; 85025; 87077; 87086; 87088; 87186

== ENCOUNTER 2023-11-06 14:06 | Outpatient (CLI) | payer MEDICARE, OTHER, SELFPAY ==
[2023-11-06] MEDS: 0.9% NaCl IVPB Med Flush (250 mL) 15 ML IV (14:23)
[2023-11-06] MEDS: Piperacil/Tazobactam 3.375 GM in 0.9% Normal Saline (50mL MB+) 50 ML IV (14:23)
[2023-11-06] MEDS: 0.9% NaCl Midline IV Flush IV ×2 (14:23→15:26)
[2023-11-06 14:28] VITALS: BP 120/96; PULSE 61; RESP 16; TEMP 36.2; O2SAT 98
--- OUTSIDE RECORDS SUMMARY | 2023-11-06 14:28 | XMS RPT_ITS | CCD ---
Author Name Unknown Address [address] [place] [address] Organization [facility] Care Team Providers Care Land Lease Information Clerk Name Role Phone JAREK GRAY Unavailable Unavailable JAREK GRAY Unavailable Unavailable PETER FINNEY Unavailable Unavailable WES SAWANT Unavailable Unavailable BICLETTYDAMarquez, VERA Unavailable Unavailable JAREK GRAY Unavailable Unavailable JAREK GRAY Unavailable Unavailable JAREK GRAY Unavailable Unavailable PETER FINNEY Unavailable Unavailable Moises INSTRUCTIONAL DEVELOPER, Leelee N Unavailable Unavailab le Moises INSTRUCTIONAL DEVELOPER, Leelee N Unavailable Unavailab le IMCA Referring Unavailable PETER FINNEY Primary Care Unavailable CARMEN GRAY Referring Unavailable PETER FINNEY Primary Care Unavailable CARMEN GRAY Attending Unavailable PETER FINNEY Primary Care Unavailable [facility] Referring Unavailable CARMEN GRAY Attending Unavailable PETER FINNEY Primary Care Unavailable CARMEN GRAY Referring Unavailable CRISPIN JOYCE ([facility]) Referring UnavailPETER Montoya Primary Care Unavailable CRISPIN JOYCE ([facility]) Referring UnavailCARMEN Candelario Referring CRISPIN Baker ([facility]) Referring UnavailCARMEN Candelario Attending Peter Cota MD Primary Care Provider [phone]( [phone] PETER FINNEY Primary Care Unavailable MAXX LOZADA [...] Facility (1 source) Gluten Drug allergy (disorder) [facility] Repository (8 sources) Adhesive agent; Translations: [ADHESIVE] Propensity to adverse reactions (disorder) 5 Rash [facility] Repository (8 sources) Wheat gluten extract; Translations: [WHEAT GLUTEN] Drug Allergy 0 Mental Status Change, Intolerance, Diarrhea [facility] Repository Medications Current Medications Medication Drug [...] Take one tablet 5 times daily ACYCLOVIR [id number] Mike MCCALLUM [id number] 200 actuat albuterol 0.09 mg/actuat metered dose [...] Coronary arteriosclerosis; Translations: [Atherosclerotic heart disease of [place] coronary artery without angina pectoris] Onset: 08-18-2022 [...] 10:46-0400 Body temperature 97 [degF] Renee Conde USER EXPERIENCE DEVELOPER.DIRECTOR AGRICULTURAL SERVICES Work Phone: [facility] 02-14-2023 10:46-0400 Body weight 102.97 kg Renee Conde USER EXPERIENCE DEVELOPER.DIRECTOR AGRICULTURAL SERVICES Work Phone: [facility] 02-14-2023 10:46-0400 Diastolic blood pressure 76 mm[Hg] Renee Conde USER EXPERIENCE DEVELOPER.DIRECTOR AGRICULTURAL SERVICES Work Phone: [facility] 02-14-2023 10:46-0400 Heart rate 60 /min Renee Conde USER EXPERIENCE DEVELOPER.DIRECTOR AGRICULTURAL SERVICES Work Phone: [facility] 02-14-2023 10:46-0400 Respiratory rate 16 /min Renee Conde USER EXPERIENCE DEVELOPER.DIRECTOR AGRICULTURAL SERVICES Work Phone: [facility] 02-14-2023 10:46-0400 SaO2% (BldA) [Mass fraction] 98 % Renee Conde USER EXPERIENCE DEVELOPER.DIRECTOR AGRICULTURAL SERVICES Work Phone: [facility] 02-14-2023 10:46-0400 Systolic blood pressure 128 mm[Hg] Renee Conde USER EXPERIENCE DEVELOPER.DIRECTOR AGRICULTURAL SERVICES Work Phone: [facility] 10-20-2022 16:13-0500 Body temperature 99.81 [degF] Jarod Jose Francisco USER EXPERIENCE DEVELOPER.DIRECTOR AGRICULTURAL SERVICES Work Phone: [facility] 10-20-2022 16:13-0500 Body weight 108.41 kg Jarod Jose Francisco USER EXPERIENCE DEVELOPER.DIRECTOR AGRICULTURAL SERVICES Work Phone: [facility] 10-20-2022 16:13-0500 Diastolic blood pressure 70 mm[Hg] Jarod Jose Francisco USER EXPERIENCE DEVELOPER.DIRECTOR AGRICULTURAL SERVICES Work Phone: [facility] 10-20-2022 16:13-0500 Heart rate 86 /min Jarod Jose Francisco USER EXPERIENCE DEVELOPER.DIRECTOR AGRICULTURAL SERVICES Work Phone: [facility] 10-20-2022 16:13-0500 Respiratory rate 16 /min Jarod Jose Francisco USER EXPERIENCE DEVELOPER.DIRECTOR AGRICULTURAL SERVICES Work Phone: [facility] 10-20-2022 16:13-0500 SaO2% (BldA) [Mass fraction] 96 % Jarod King USER EXPERIENCE DEVELOPER.DIRECTOR AGRICULTURAL SERVICES Work Phone: [facility] 10-20-2022 16:13-0500 Systolic blood pressure 122 mm[Hg] Jarod Jose Francisco USER EXPERIENCE DEVELOPER.DIRECTOR AGRICULTURAL SERVICES Work Phone: [facility] 09-17-2022 09:45-0500 Body height 185.4 cm Marcella Millville PA-C Work Phone: [facility] 09-17-2022 09:45-0500 Body temperature 97.3 [degF] Marcella Karmen PA-C Work Phone: [facility] 09-17-2022 09:45-0500 Body weight 110.95 kg Marcella Karmen PA-C Work Phone: [facility] 09-17-2022 09:45-0500 Diastolic blood pressure 74 mm[Hg] Marcella Millville PA-C Work Phone: [facility] 09-17-2022 09:45-0500 Heart rate 72 /min Marcella Karmen PA-C Work Phone: [facility] 09-17-2022 09:45-0500 SaO2% (BldA) [Mass fraction] 98 % Marcella Peraza PA-C Work Phone: [facility] 09-17-2022 09:45-0500 Systolic blood pressure 138 mm[Hg] Marcella Peraza PA-C Work Phone: [facility] 08-04-2022 14:15-0400 Body height 182.9 cm Maxx Lozada MD Work Phone: [facility] 08-04-2022 14:15-0400 Body temperature 97.9 [degF] Maxx Lozada MD Work Phone: [facility] 08-04-2022 14:15-0400 Body weight 112.95 kg Maxx Lozada MD Work Phone: [facility] 08-04-2022 14:15-0400 Diastolic blood pressure 70 mm[Hg] Maxx Lozada MD Work Phone: [facility] 08-04-2022 14:15-0400 Heart rate 80 /min Maxx Lozada MD Work Phone: [facility] 08-04-2022 14:15-0400 Respiratory rate 16 /min Maxx Lozada MD Work Phone: [facility] 08-04-2022 14:15-0400 SaO2% (BldA) [Mass fraction] 95 % Maxx Lozada MD Work Phone: [facility] 08-04-2022 14:15-0400 Systolic blood pressure 130 mm[Hg] Maxx Lozada MD Work Phone: [facility] 08-07-2017 13:26-0400 BMI (Body Mass Index) 32.74 kg/m2 Leelee De Leon LPN [facility] Work Phone: 08-07-2017 13:26-0400 Body Temperature 97.7 [degF] Leelee De Leon LPN [facility] Now [facility] Work Phone: 08-07-2017 13:26-0400 BP Diastolic 78 mm[Hg] Leelee De Leon LPN [facility] Work Phone: 08-07-2017 13:-040 BP Systolic 122 mm[Hg] Leelee De Leon LPN [facility] Work Phone: 08-07-2017 13:-040 Height 187.96 cm Leelee De Leon LPN [facility] Work Phone: 08-07-2017 13:26-0400 Pulse (Heart Rate) 87 /min Leelee De Leon LPN [facility] Now [facility]inic Work Phone: 08-07-2017 13:-040 Respiratory Rate 16 /min Leelee De Leon LPN [facility] Work Phone: 08-07-2017 13:-0400 Weight 115.67 kg Leelee De Leon LPN [facility] Work Phone: Encounters Encounter Date Encounter Type Care Provider Facility Start: 02-14-2023 End: 02-14-2023 ambulatory [facility] Facility:[facility] Start: 02-14-2023 End: 02-14-2023 Patient encounter procedure Renee Conde APRN.DIRECTOR AGRICULTURAL SERVICES Work Phone: [facility] Procedures Date Procedure Procedure Detail Performing Clinician Start: 10-20-2022 COVID WITH FLUA+B, ROUTINE Jarod Felton APRN.DIRECTOR AGRICULTURAL SERVICES Work Phone: Start: 05-10-2018 Extraction of Iliac Bone Marrow, Percutaneous Approach JAREK GRAY Start: 05-10-2018 Fusion of 2 or more Cervical Vertebral Joints with Autologous Tissue Substitute, Posterior Approach, Posterior Column, Open Approach JAREK GRAY Start: 05-10-2018 Monitoring of Periph eral Nervous Electrical Activity, Intraoperative, External Approach JAREK GRAY Plan of Treatment Date Care Activity Detail Author Start: 08-18-2025 DIABETES SCREEN DIABETES SCREEN [facility] Start: 05-31-2024 Urine microalbumin profile DTAP,TDAP,TD (2 - Td or Tdap) [facility] Start: 10-19-2022 ADVANCE DIRECTIVE DISCUSSION ADVANCE DIRECTIVE DISCUSSION [facility] Start: 10-19-2022 DEPRESSION ASSESSMENT DEPRESSION ASS ESSMENT [facility] Start: 06-19-2022 Influenza vaccination INFLUENZA (#1) [facility] Start: 12-04-2021 COVID-19 VACCINE (4 - Booster for Pfizer series) COVID-19 VACCINE (4 - Booster for Pfizer series) [facility] Start: 10-19-2021 ADVANCE DIRECTIVE DISCUSSION ADVANCE DIRECTIVE DISCUSSION [facility] Start: 10-19-2021 DEPRESSION ASSESSMENT DEPRESSION ASS [facility] Start: 02-24-2019 DIABETES SCREEN DIABETES SCREEN [facility] Start: 08-07-2017 End: 08-07-2017 Appointment Appointment [facility] Work Phone: Start: 05-10-2013 Hepatitis B surface antibody level LDL CHOLESTEROL [facility] Start: 02-19-1996 SHINGRIX VACCINE (1 of 2) SHINGRIX VACCINE (1 of 2) [facility] Start: 02-19-1964 ANNUAL PCP TEAM COTTON AGENT CHRISTINE DISEASE VISIT ANNUAL PCP TEAM CHRONIC DISEASE VISIT [facility] Start: 02-19-1964 HEPATITIS C SCREENING HEPATITIS C [facility] Patient Education DERMATITIS [facility] Work Phone[facility] Immunizations Immunization Date Immunization Notes Care Provider Beck fletcher 07-18-2016 influenza, high dose seasonal, preservative-free Maxx Lozada MD Work Phone: [facility] Work Phone: 07-11-2015 influenza, high dose seasonal, preservative-free Maxx Lozada MD Work Phone: [facility] 07-11-2015 pneumococcal conjuga te vaccine, 13 valent Maxx Lozada MD Work Phone: [facility] 07-07-2014 influenza, high dose seasonal, preservative-free Maxx Lozada MD Work Phone: [facility] 05-31-2014 tetanus toxoid, redu kendra diphtheria toxoid, and acellular pertussis vaccine, adsorbed Maxx Lozada MD Work Phone: [facility] 05-31-2014 typhoid vaccine, unspecified formulation Maxx Lozada MD Work Phone: [facility] 08-17-2013 pneumococcal polysaccharide vaccine, 23 valent Maxx Lozada MD Work Phone: [facility] 08-03-2013 influenza virus vacc ine, unspecified formulation Maxx Lozada MD Work Phone: [facility] Payers Date Payer Category Payer Unknown [id number] 2011 Unknown HOSPITAL/MEDICAL GENERIC MEDICAL GENERIC [id number] 2011-Present [phone] [address] [place] [address] Indemnity [id number] 2011 Medicare [id number] 2011 Medicare MEDICARE MEDICAR E A AND B [id number] 2011-Present [phone] [address] [address] [place] [address] Medicare [id number] 1959 Medicare [id number] 1945 Unknown [id number] 1945 Unknown [id number] 1946 Unknown [id number] 1946 Unknown [id number] 1946 Unknown [id number] 1946 Unknown [id number] Social History Date Type Detail Facility Start: 08-23-2012 End: 08-18-2022 Tobacco smoking status NHIS Ex-smoker [facility] End: 10-19-1967 History of tobacco use Current smoker [facility] End: 10-19-1967 History of tobacco use Cigarette Smoker [facility] Start: 08-23-2012 End: 08-18-2022 Tobacco use and exposure Smokeless tobacco non-user [facility] Start: 08-04-2022 End: 02-14-2023 Alcohol intake Current non-drinker of alcohol (finding) [facility] Start: 1945 Sex Assigned At Not on file C [facility] Start: 07-25-2022 End: 09-17-2022 Exposure to SARS-CoV-2 (event) Not sure [facility] Medical Equipment Procedure Code Equipment Code Equipment Origin al Text Equipment Identifier Dates Icj-Iz-[id number] Im plant - [id number] Start: 08-23-2014 Screw Bn 2.7mm 1 6mm Lcp Ss - [id number] Start: 08-23-2014 Mesh Surgipro La [employer]ge Polypropylene Surgical Nonabsorbable Plug Knitted - [id number] Start: 09-10-2022 Clinical Notes 01-04-2015 to 02-14-2023 Renee Conde APRN.[facility] - 02/14/2023 11:13 AM EDTPatient InstructionsJarod Felton APRN.DIRECTOR AGRICULTURAL SERVICES - 10/20/2022 4:25 PM ESTPatient InstructionsMarcella Peraza PA-C - 09/17/2022 10:04 AM EST Note Date & Type Note Facility 02-14-2023 Note HNO ID: [id number] Author: Renee Conde APRN.[facility] Service: ? 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- [place] PAST SURGICAL HISTORY OF several eye surgeries, [...] Rfl: 0 tamsulosin ER (FLOMAX) 0.4 mg [id number] 1 CAPSULE BY MOUTH ONCE DAILY.Disp: 90 [...] flat. (more content not included)... 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 maury [id number]_[employer] (MIGEL)_EUA This test was developed and its performance characteristics determined by [facility]'s [facility]. This test has been authorized by FDA under an Emergency Use Authorization (EUA). This test has been validated in accordance with the FDA's Guidance Document Policy for Diagnostics Testing in Laboratories Certified to Perform High Complexity Testing under CLIA prior to Emergency use Authorization for Coronavirus Disease 2019 during the Public Health Emergency issued on December 17, 2019. Test performed by [facility], [facility], [address] [place] [address]. INFLUENZA A PCR: Negative for Influenza A by RT-PCR INFLUENZA B PCR: Negative for Influenza B by RT-PCR [facility] documented as of this encounter (statuses as of 09/23/2022) [facility]11-23-2022 History of Past illness Narrative* Problem Noted Date Resolved Date Left inguinal hernia 09/10/2022 09/10/2022 Acute gastritis without mention of hemorrhage 01/04/2015 Abdominal pain, epigastric 01/04/201501/04 documented as of this encounter (statuses as of 10/23/2022) [facility]11-[facility] History of Past illness Narrative* Problem Noted Date Resolved Date Left inguinal hernia 09/10/2022 09/10/2022 Acute gastritis without mention of hemorrhage 01/04/2015 Abdominal pain, epigastric 01/04/201501/04 documented as of this encounter (statuses as of 02/14/2023) [facility]10-17-2022 NoteHNO ID: [id number] Author: Maxx Lozada MD Service: ? 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 N/A Last Colonoscopy: Unknown Shanti Quique INSTRUCTIONAL DEVELOPER PHYSICAL EXAMINATION: General: The patient is 77 [...] hernia repair with mesh - recurrent - [id number] Anticipated Anesthetic: General Patient weight: Blood pressure 130/70, pulse 80, temperature 36.6 C (97.9 F), temperature source Temporal, resp. rate 16, height 182.9 cm (6'), weight 112.9 kg (249 lb), SpO2 95 %. BMI: Body mass index is 33.77 kg/m . Planned antibiotic: Ancef 2gm IVPB hydrogenation operator to OR SCDs needed - Yes Return [...] Maxx Lozada III, MD [facility] Nurse Note* Shanti Lei INSTRUCTIONAL DEVELOPER - 08/04/2022 2:22 PM EDT REVIEW OF [...] Unknown Shanti Lei LPN [facility] History of Past illness Narrative* Problem Noted Date Resolved Date Acute gastritis without mention of hemorrhage 01/04/2015 Abdominal pain, epigastric 01/04/201501/04 documented as of this encounter (statuses as of 08/04/2022) [facility] Diagnosis Left inguinal hernia- Primary Inguinal hernia without mention of obstruction or gangrene, unilateral or unspecified, (not specified as recurrent) [facility] Diagnosis S/P hernia repair- Primary Other postprocedural status [facility]* Diagnosis Lower resp. tract infection- Primary Other diseases of respiratory system, not elsewhere classified History of asthma Personal history of other diseases of respiratory system [facility] Diagnosis Lower respiratory infection- Primary Other diseases of respiratory system, not elsewhere classified documented in this encounter [facility] Summary Purpose Family History No Family [...] DATE CREATED AUTHOR AUTHOR'S ORGANIZ ATION 02/10/2019 [facility] DATE CREATED AUTHOR AUTHOR'S ORGANIZ ATION 02/10/2019 [facility] DATE CREATED AUTHOR AUTHOR'S ORGANIZ ATION 09/11/2022 [facility] DATE CREATED AUTHOR AUTHOR'S ORGANIZ ATION 02/14/2023 [facility] Source Comments (unrecognize d section and content) In the event this informatio n is protected by the Federal Confidentiality of Alcohol and Drug Abuse Patient Records regulations: The Federal rules restrict any use of the information to criminally investigate or prosecute any alcohol or drug abuse patient.[facility] the event this information is protected by the Federal Confidentiality of Alcohol and Drug Abuse Patient Records regulations: The Federal rules restrict any use of the information to criminally investigate or prosecute any alcohol or drug abuse patient.[facility] the event this information is protected by the Federal Confidentiality of Alcohol and Drug Abuse Patient Records regulations: The Federal rules restrict any use of the information to criminally investigate or prosecute any alcohol or drug abuse patient.[facility] Hospital[facility] the event this information is protected by the Federal Confidentiality of Alcohol and Drug Abuse Patient Records regulations: The Federal rules restrict any use of the information to criminally investigate or prosecute any alcohol or drug abuse patient.[facility] Reason for Visit (unrecogniz ed section and content) Reason Comments Follow Up Hernia repair Reason Comments Chest Congestion headache, cough, sor e throat, bodyaches x 5 days Reason Comments Nasal Congestion drainage, cough x 2 days Care Teams (unrecognized sec tion and content) Land Lease Information Clerk Relationship Specialty Start Date End Date Randa JosephDO [address] [place] [address] PCP - General Family Medicine 09/10/22 Land Lease Information Clerk Relationship Specialty Start Date End Date Randa Joseph DO You [address] [place] [address] PCP - General Family Medicine 09/10/22 FOR [...] BE BASED ON THE PRIMARY CLINICAL RECORDS. [employer] [facility]. provides no warranty or guarantee of the accuracy or completeness of information in this document.
[2023-11-06 15:27] VITALS: BP 137/72; PULSE 63; RESP 16; TEMP 36.2
== END 2023-11-06 14:07 | disposition home or self-care (01) ==
LOC: MEDOUTP 14:07
PROVIDERS: PCP Family Medicine; Referring Provider Internal Medicine Infectious Disease; Visit Provider Internal Medicine Infectious Disease
DX: A49.8 Other bacterial infections of unspecified site (principal)
CPT/HCPCS: 96365; J7050; A4216

== ENCOUNTER → 2023-11-06 | Outpatient (CLI) | payer MEDICARE, OTHER, SELFPAY ==
[2023-11-06 12:51] VITALS: BP 142/63; PULSE 71; RESP 18; TEMP 35.8; O2SAT 97; BMI 30.5
--- OUTSIDE RECORDS SUMMARY | 2023-11-06 13:07 | XMS RPT_ITS | CCD ---
Author Name Unknown Address [address] [place] [address] Organization [facility] Care Team Providers Care Sprinkling System Installer Name Role Phone JAREK GRAY Unavailable Unavailable JAREK GRAY Unavailable Unavailable PETER FINNEY Unavailable Unavailable WES SAWANT Unavailable Unavailable BICLETTYDAMarquez, VERA Unavailable Unavailable JAREK GRAY Unavailable Unavailable JAREK GRAY Unavailable Unavailable JAREK GRAY Unavailable Unavailable PETER FINNEY Unavailable Unavailable Moises BAG SHAKER, Leelee N Unavailable Unavailab le Moises BAG SHAKER, Leelee N Unavailable Unavailab le IMCA Referring Unavailable PETER FINNEY Primary Care Unavailable CARMEN GRAY Referring Unavailable PETER FINNEY Primary Care Unavailable CARMEN GRAY Attending Unavailable PETER FINNEY Primary Care Unavailable [facility] Referring Unavailable CARMEN GRAY Attending Unavailable PETER FINNEY Primary Care Unavailable CARMEN GRAY Referring Unavailable CRISPIN JOYCE ([facility]) Referring UnavailPETER Montoya Primary Care Unavailable CRISPIN JOYCE ([facility]) Referring UnavailCARMEN Candelario Referring CRISPIN Baker ([facility]) Referring UnavailCARMEN Candelario Attending Peter Cota MD Primary Care Provider PETER FINNEY Primary Care Unavailable MAXX LOZADA [...] Facility (1 source) Gluten Drug allergy (disorder) [facility] Repository (8 sources) Adhesive agent; Translations: [ADHESIVE] Propensity to adverse reactions (disorder) 5 Rash [facility] Repository (8 sources) Wheat gluten extract; Translations: [WHEAT GLUTEN] Drug Allergy 0 Mental Status Change, Intolerance, Diarrhea [facility] Repository Medications Current Medications [...] Take one tablet 5 times daily ACYCLOVIR [id number] Mike MCCALLUM [id number] 200 actuat albuterol 0.09 mg/actuat metered dose [...] Coronary arteriosclerosis; Translations: [Atherosclerotic heart disease of burns pai[place] coronary artery without angina pectoris] Onset: 08-18-2022 [...] 10:46-0400 Body temperature 97 [degF] Renee Conde BARREL CAP SETTER.SLEEP LAB TECHNOLOGIST Work Phone: [facility] 02-14-2023 10:46-0400 Body weight 102.97 kg Renee Conde BARREL CAP SETTER.SLEEP LAB TECHNOLOGIST Work Phone: [facility] 02-14-2023 10:46-0400 Diastolic blood pressure 76 mm[Hg] Renee Conde BARREL CAP SETTER.SLEEP LAB TECHNOLOGIST Work Phone: [facility] 02-14-2023 10:46-0400 Heart rate 60 /min Renee Conde BARREL CAP SETTER.SLEEP LAB TECHNOLOGIST Work Phone: [facility] 02-14-2023 10:46-0400 Respiratory rate 16 /min Renee Conde BARREL CAP SETTER.SLEEP LAB TECHNOLOGIST Work Phone: [facility] 02-14-2023 10:46-0400 SaO2% (BldA) [Mass fraction] 98 % Renee Conde BARREL CAP SETTER.SLEEP LAB TECHNOLOGIST Work Phone: [facility] 02-14-2023 10:46-0400 Systolic blood pressure 128 mm[Hg] Renee Conde BARREL CAP SETTER.SLEEP LAB TECHNOLOGIST Work Phone: [facility] 10-20-2022 16:13-0500 Body temperature 99.81 [degF] Jarod Jose Francisco BARREL CAP SETTER.SLEEP LAB TECHNOLOGIST Work Phone: [facility] 10-20-2022 16:13-0500 Body weight 108.41 kg Jarod Jose Francisco BARREL CAP SETTER.SLEEP LAB TECHNOLOGIST Work Phone: [facility] 10-20-2022 16:13-0500 Diastolic blood pressure 70 mm[Hg] Jarod Jose Francisco BARREL CAP SETTER.SLEEP LAB TECHNOLOGIST Work Phone: [facility] 10-20-2022 16:13-0500 Heart rate 86 /min Jarod Jose Francisco BARREL CAP SETTER.SLEEP LAB TECHNOLOGIST Work Phone: [facility] 10-20-2022 16:13-0500 Respiratory rate 16 /min Jarod Jose Francisco BARREL CAP SETTER.SLEEP LAB TECHNOLOGIST Work Phone: [facility] 10-20-2022 16:13-0500 SaO2% (BldA) [Mass fraction] 96 % Jarod King BARREL CAP SETTER.SLEEP LAB TECHNOLOGIST Work Phone: [facility] 10-20-2022 16:13-0500 Systolic blood pressure 122 mm[Hg] Jarod Jose Francisco BARREL CAP SETTER.SLEEP LAB TECHNOLOGIST Work Phone: [facility] 09-17-2022 09:45-0500 Body height 185.4 cm Marcella Greenbush PA-C Work Phone: [facility] 09-17-2022 09:45-0500 Body temperature 97.3 [degF] Marcella Karmen PA-C Work Phone: [facility] 09-17-2022 09:45-0500 Body weight 110.95 kg Marcella Karmen PA-C Work Phone: [facility] 09-17-2022 09:45-0500 Diastolic blood pressure 74 mm[Hg] Marcella Greenbush PA-C Work Phone: [facility] 09-17-2022 09:45-0500 Heart rate 72 /min Marcella Karmen PA-C Work Phone: [facility] 09-17-2022 09:45-0500 SaO2% (BldA) [Mass fraction] 98 % Marcella Peraza PA-C Work Phone: [facility] 09-17-2022 09:45-0500 Systolic blood pressure 138 mm[Hg] Marcella Peraza PA-C Work Phone: [facility] 08-04-2022 14:15-0400 Body height 182.9 cm Maxx Lozada MD Work Phone: [facility] 08-04-2022 14:15-0400 Body temperature 97.9 [degF] Maxx Lozada MD Work Phone: [facility] 08-04-2022 14:15-0400 Body weight 112.95 kg Maxx Lozada MD Work Phone: [facility] 08-04-2022 14:15-0400 Diastolic blood pressure 70 mm[Hg] Maxx Lozada MD Work Phone: [facility] 08-04-2022 14:15-0400 Heart rate 80 /min Maxx Lozada MD Work Phone: [facility] 08-04-2022 14:15-0400 Respiratory rate 16 /min Maxx Lozada MD Work Phone: [facility] 08-04-2022 14:15-0400 SaO2% (BldA) [Mass fraction] 95 % Maxx Lozada MD Work Phone: [facility] 08-04-2022 14:15-0400 Systolic blood pressure 130 mm[Hg] Maxx Lozada MD Work Phone: [facility] 08-07-2017 13:26-0400 BMI (Body Mass Index) 32.74 kg/m2 Leelee De Leon LPN [facility] No w Clinic Work Phone: 08-07-2017 13:26-0400 Body Temperature 97.7 [degF] Leelee De Leon LPN [facility] Now Cli christine Work Phone: 08-07-2017 13:26-0400 BP Diastolic 78 mm[Hg] Leelee De Leon LPN [facility] Now Clin ic Work Phone: 08-07-2017 13:-040 BP Systolic 122 mm[Hg] Leelee De Leon LPN [facility] Now Clin ic Work Phone: 08-07-2017 13:-040 Height 187.96 cm Leelee De Leon LPN [facility] Now Clin ic Work Phone: 08-07-2017 13:26-0400 Pulse (Heart Rate) 87 /min Leelee De Leon LPN [facility] Now C linic Work Phone: 08-07-2017 13:-040 Respiratory Rate 16 /min Leelee De Leon LPN [facility] Now Cli christine Work Phone: 08-07-2017 13:-0400 Weight 115.67 kg Leelee De Leon LPN [facility] Now Clin ic Work Phone: Encounters Encounter Date Encounter Type Care Provider Facility Start: 02-14-2023 End: 02-14-2023 ambulatory [facility] Facility:[facility] Start: 02-14-2023 End: 02-14-2023 Patient encounter procedure Renee Conde APRN.SLEEP LAB TECHNOLOGIST Work Phone: [facility] Procedures Date Procedure Procedure Detail Performing Clinician Start: 10-20-2022 COVID WITH FLUA+B, ROUTINE Jarod Felton APRN.SLEEP LAB TECHNOLOGIST Work Phone: Start: 05-10-2018 Extraction of Iliac Bone Marrow, Percutaneous Approach JAREK GRAY Start: 05-10-2018 Fusion of 2 or more Cervical Vertebral Joints with Autologous Tissue Substitute, Posterior Approach, Posterior Column, Open Approach JAREK GRAY Start: 05-10-2018 Monitoring of Periph eral Nervous Electrical Activity, Intraoperative, External Approach JAREK GRAY Plan of Treatment Date Care Activity Detail Author Start: 08-18-2025 DIABETES SCREEN DIABETES SCREEN [facility] Start: 05-31-2024 Urine microalbumin profile DTAP,TDAP,TD (2 - Td or Tdap) [facility] Start: 10-19-2022 ADVANCE DIRECTIVE DISCUSSION ADVANCE DIRECTIVE DISCUSSION [facility] Start: 10-19-2022 DEPRESSION ASSESSMENT DEPRESSION ASS ESSMENT [facility] Start: 06-19-2022 Influenza vaccination INFLUENZA (#1) [facility] Start: 12-04-2021 COVID-19 VACCINE (4 - Booster for Pfizer series) COVID-19 VACCINE (4 - Booster for Pfizer series) [facility] Start: 10-19-2021 ADVANCE DIRECTIVE DISCUSSION ADVANCE DIRECTIVE DISCUSSION [facility] Start: 10-19-2021 DEPRESSION ASSESSMENT DEPRESSION ASS [facility] Start: 02-24-2019 DIABETES SCREEN DIABETES SCREEN [facility] Start: 08-07-2017 End: 08-07-2017 Appointment Appointment [facility] Work Phone: Start: 05-10-2013 Hepatitis B surface antibody level LDL CHOLESTEROL [facility] Start: 02-19-1996 SHINGRIX VACCINE (1 of 2) SHINGRIX VACCINE (1 of 2) [facility] Start: 02-19-1964 ANNUAL PCP TEAM ASSIGNMENT CLERK CHRISTINE DISEASE VISIT ANNUAL PCP TEAM CHRONIC DISEASE VISIT [facility] Start: 02-19-1964 HEPATITIS C SCREENING HEPATITIS C [facility] Patient Education DERMATITIS [facility] Immunization Date Immunization Notes Care Provider Beck fletcher 07-18-2016 influenza, high dose seasonal, preservative-free Maxx Lozada MD Work Phone: [facility] Work Phone: 07-11-2015 influenza, high dose seasonal, preservative-free Maxx Lozada MD Work Phone: [facility] 07-11-2015 pneumococcal conjuga te vaccine, 13 valent Maxx Lozada MD Work Phone: [facility] 07-07-2014 influenza, high dose seasonal, preservative-free Maxx Lozada MD Work Phone: [facility] 05-31-2014 tetanus toxoid, redu kendra diphtheria toxoid, and acellular pertussis vaccine, adsorbed Maxx Lozada MD Work Phone: [facility] 05-31-2014 typhoid vaccine, unspecified formulation Maxx Lozada MD Work Phone: [facility] 08-17-2013 pneumococcal polysaccharide vaccine, 23 valent Maxx Lozada MD Work Phone: [facility] 08-03-2013 influenza virus vacc ine, unspecified formulation Maxx Lozada MD Work Phone: [facility] Payers Date Payer Category Payer Unknown [id number] 2011 Unknown HOSPITAL/MEDICAL GENERIC MEDICAL GENERIC [id number] 2011-Present [phone] [address] [place] [address] Indemnity [id number] 2011 Medicare [id number] 2011 Medicare MEDICARE MEDICAR E A AND B [id number] 2011-Present [phone] [address] [address] [place] [address] Medicare [id number] 1959 Medicare [id number] 1945 Unknown [id number] 1945 Unknown [id number] 1946 Unknown [id number] 1946 Unknown [id number] 1946 Unknown [id number] 1945 Unknown [id number] Social History Date Type Detail Facility Start: 08-23-2012 End: 08-18-2022 Tobacco smoking status NHIS Ex-smoker [facility] End: 10-19-1967 History of tobacco use Current smoker [facility] End: 10-19-1967 History of tobacco use Cigarette Smoker [facility] Start: 08-23-2012 End: 08-18-2022 Tobacco use and exposure Smokeless tobacco non-user [facility] Start: 08-04-2022 End: 02-14-2023 Alcohol intake Current non-drinker of alcohol (finding) [facility] Start: 1945 Sex Assigned At Not on file [facility] Start: 07-25-2022 End: 09-17-2022 Exposure to SARS-CoV-2 (event) Not sure [facility] Medical Equipment Procedure Code Equipment Code Equipment Origin al Text Equipment Identifier Dates [id number] Im plant - [id number] Start: 08-23-2014 Screw Bn 2.7mm 1 6mm Lcp Ss - [id number] Start: 08-23-2014 Mesh Surgipro La rge Polypropylene Surgical Nonabsorbable Plug Knitted - [id number] Start: 09-10-2022 Clinical Notes 01-04-2015 to 02-14-2023 Renee Conde APRN.[facility] - 02/14/2023 11:13 AM EDTPatient InstructionsJarod Felton APRN.SLEEP LAB TECHNOLOGIST - 10/20/2022 4:25 PM ESTPatient InstructionsMarcella Peraza PA-C - 09/17/2022 10:04 AM EST Note Date & Type Note Facility 02-14-2023 Note HNO ID: [id number] Author: Renee Conde APRN.[facility] Service: ? 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- [place] PAST SURGICAL HISTORY OF several eye surgeries, [...] Rfl: 0 tamsulosin ER (FLOMAX) 0.4 mg [id number] 1 CAPSULE BY MOUTH ONCE DAILY.Disp: 90 [...] Abdomen is flat. (more content not included)... [facility] 02-14-2023 History of Present illness Narrative [...] OCD LESION FEMORAL CONDYLE 2011 left femor- [place] PAST SURGICAL HISTORY OF several eye surgeries, [...] respiratory distress report to ED Renee Conde APRN.SLEEP LAB TECHNOLOGIST documented in this encounter [facility] 10-20-2022 Influenza virus A and B RNA and SARS-CoV-2 (COVID-19) N gene panel LIUDMILA+probe (Resp) COVID 19 RESULT: SARS-CoV-2 (Agent of COVID-19) Not Detected by RT-PCR or equivalent method. maury [id number]_[employer]dv[employer] (MIGEL)_EUA This test was developed and its performance characteristics determined by [facility]'s [facility] [place]. This test has been authorized by FDA under an Emergency Use Authorization (EUA). This test has been validated in accordance with the FDA's Guidance Document Policy for Diagnostics Testing in Laboratories Certified to Perform High Complexity Testing under CLIA prior to Emergency use Authorization for Coronavirus Disease 2019 during the Public Health Emergency issued on December 17, 2019. Test performed by [facility], [facility] [place], [address] [place] [address]. INFLUENZA A PCR: Negative for Influenza A by RT-PCR INFLUENZA B PCR: Negative for Influenza B by RT-PCR [facility] documented as of this encounter (statuses as of 09/23/2022) [facility]11-23-2022 History of Past illness Narrative* Problem Noted Date Resolved Date Left inguinal hernia 09/10/2022 09/10/2022 Acute gastritis without mention of hemorrhage 01/04/2015 Abdominal pain, epigastric 01/04/201501/04 documented as of this encounter (statuses as of 10/23/2022) [facility] History of Past illness Narrative* Problem Noted Date Resolved Date Left inguinal hernia 09/10/2022 09/10/2022 Acute gastritis without mention of hemorrhage 01/04/2015 Abdominal pain, epigastric 01/04/201501/04 documented as of this encounter (statuses as of 02/14/2023) [facility]10-17-2022 NoteHNO ID: [id number] Author: Maxx Lozada MD Service: ? 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 N/A Last Colonoscopy: Unknown Shanti Quique BAG SHAKER PHYSICAL EXAMINATION: General: The patient is 77 [...] hernia repair with mesh - recurrent - [id number] Anticipated Anesthetic: General Patient weight: Blood pressure 130/70, pulse 80, temperature 36.6 C (97.9 F), temperature source Temporal, resp. rate 16, height 182.9 cm (6'), weight 112.9 kg (249 lb), SpO2 95 %. BMI: Body mass index is 33.77 kg/m . Planned antibiotic: Ancef 2gm IVPB medical secretary receptionist to OR SCDs needed - Yes Return [...] Maxx Lozada III, MD [facility] Nurse Note* Shatni Lei BAG SHAKER - 08/04/2022 2:22 PM EDT REVIEW OF [...] Unknown Shanti Lei LPN [facility] History of Past illness Narrative* Problem Noted Date Resolved Date Acute gastritis without mention of hemorrhage 01/04/2015 Abdominal pain, epigastric 01/04/201501/04 documented as of this encounter (statuses as of 08/04/2022) [facility]* Diagnosis Left inguinal hernia- Primary Inguinal hernia without mention of obstruction or gangrene, unilateral or unspecified, (not specified as recurrent) [facility]* Diagnosis S/P hernia repair- Primary Other postprocedural status [facility]* Diagnosis Lower resp. tract infection- Primary Other diseases of respiratory system, not elsewhere classified History of asthma Personal history of other diseases of respiratory system [facility] Diagnosis Lower respiratory infection- Primary Other diseases of respiratory system, not elsewhere classified documented in this encounter [facility] Summary Purpose Family History No Family History [...] CREATED AUTHOR AUTHOR'S ORGANIZ ATION 02/10/2019 [facility] DATE CREATED AUTHOR AUTHOR'S ORGANIZ ATION 02/10/2019 [facility] DATE CREATED AUTHOR AUTHOR'S ORGANIZ ATION 09/11/2022 [facility] DATE CREATED AUTHOR AUTHOR'S ORGANIZ ATION 02/14/2023 [facility] Source Comments (unrecognize d section and content) In the event this informatio n is protected by the Federal Confidentiality of Alcohol and Drug Abuse Patient Records regulations: The Federal rules restrict any use of the information to criminally investigate or prosecute any alcohol or drug abuse patient.[facility] the event this information is protected by the Federal Confidentiality of Alcohol and Drug Abuse Patient Records regulations: The Federal rules restrict any use of the information to criminally investigate or prosecute any alcohol or drug abuse patient.[facility] the event this information is protected by the Federal Confidentiality of Alcohol and Drug Abuse Patient Records regulations: The Federal rules restrict any use of the information to criminally investigate or prosecute any alcohol or drug abuse patient.[facility] the event this information is protected by the Federal Confidentiality of Alcohol and Drug Abuse Patient Records regulations: The Federal rules restrict any use of the information to criminally investigate or prosecute any alcohol or drug abuse patient.[facility] Reason for Visit (unrecogniz ed section and content) Reason Comments Follow Up Hernia repair Reason Comments Chest Congestion headache, cough, sor e throat, bodyaches x 5 days Reason Comments Nasal Congestion drainage, cough x 2 days Care Teams (unrecognized sec tion and content) Sprinkling System Installer Relationship Specialty Start Date End Date Randa JosephDO [address] [place] [place] [address] PCP - General Family Medicine 09/10/22 Sprinkling System Installer Relationship Specialty Start Date End Date Randa Joseph DO You [address] [place] [place] [address] PCP - General Family Medicine 09/10/22 FOR [...] BE BASED ON THE PRIMARY CLINICAL RECORDS. [employer] [facility]. provides no warranty or guarantee of the accuracy or completeness of information in this document.
--- NOTE | 2023-11-06 14:05 | PCM.OP.PRO ---
Procedure Report Date of Procedure: 11/06/23 Assessment & Plan Assessment/Plan (1) Bacterial infection due to Pseudomonas: PLAN: Midline insertion in left basilic vein: Patient identity was verified with two patient identifiers. Hands were sanitized. The patient was positioned supine with left arm at 90 degrees. The patient's upper arm vasculature was assessed using ultrasound, and the left basilic vein was externally marked. An external measurement was obtained of 15 cm. Cap, mask, and prep gloves were donned. The underdrape was placed under the patient's arm. The site was prepped with chlorhexidine, and tourniquet was loosely applied. Prep gloves were discarded, and hands were sanitized. The sterile kit was opened with additional supplies dropped in. Sterile gown and gloves were donned, and the patient was draped. The sterile kit was assembled with all needle, introducer, connector, and catheter flushed with sterile normal saline. The marked site of insertion was anesthetized with 1% lidocaine. Patient tolerated well. The right basilic vein was then accessed using ultrasound guidance and guidewire was inserted to safety isabella. The tourniquet was released. The access needle was removed while securing the guidewire in place. The site was again anesthetized with 1% lidocaine, prior to insertion of introducer sheath and dilator. Patient tolerated well. The catheter was trimmed to a length of 15 cm, and a flushed needleless connector was attached. The catheter was then inserted through the introducer sheath, slowly. There was no resistance on insertion. The introducer sheath was retracted and peeled away, incrementally, while keeping the catheter secured. The catheter was fully inserted leaving 0 cm external. Blood return was verified and the midline was flushed with sterile normal saline in a pulsatile fashion. Total sterile flushes used for the insertion was to 10 ml syringes, one from the kit. Finally, the insertion site was cleaned with chlorhexidine, and the catheter was secured using a StatLock. The site was covered with a Tegaderm CHG Dressing. Baseline arm circumference was obtained at the insertion site and measured 30 cm. The patient was walked to the waiting room to meet his with plan for first infusion in the infusion center. REF: [id number] LOT: [id number] Procedures Radiology Radiology US Procedures: Other Procedure See Report (OUTPATIENT MIDLINE INSERTION [id number])
== END | disposition home or self-care (01) ==
LOC: RAD 12:41
PROVIDERS: PCP Family Medicine; Referring Provider Internal Medicine Infectious Disease; Visit Provider Internal Medicine Infectious Disease
DX: A49.8 Other bacterial infections of unspecified site (principal)
CPT/HCPCS: 36569

== ENCOUNTER 2023-11-13 12:06 | Outpatient (RCR) | payer MEDICARE, OTHER, SELFPAY ==
[2023-11-13 12:52] LABS: Hematocrit 34.5 % (40-54); Hemoglobin 11.2 g/dL (13.0-16.5); Mean Corp Hgb Conc 32.5 g/dL (32-36); Mean Corpuscular Volume 95.6 fL (80-94); Mean Platelet Vol. 10.1 fl (6.2-12.0); Platelet Count 166 K/mm3 (150-450); RBC Distribution Width SD 49.4 fl (35.1-43.9); Red Blood Count 3.61 M/mm3 (4.6-6.2); White Blood Count 2.5 K/mm3 (4.4-11.0)
[2023-11-13 13:39] LABS: Anion Gap 3 (5-15); BUN 14 mg/dL (7-18); Calcium,Total 8.7 mg/dL (8.5-10.1); Chloride 111 mmol/L (98-107); Creatinine, Serum 0.74 mg/dL (0.70-1.30); EST Glomerular Filtration Rate 109 mL/min (>60); Est Glom Filt Rate - Afr Amer 132 mL/min (>60); Glucose 110 mg/dL (74-106); Potassium 3.4 mmol/L (3.5-5.1); Sodium Level 140 mmol/L (136-145)
== END 2023-11-13 18:00 | disposition home or self-care (01) ==
LOC: HHLAB 12:06
PROVIDERS: PCP Family Medicine; Referring Provider Internal Medicine Infectious Disease; Visit Provider Internal Medicine Infectious Disease
DX: A49.8 Other bacterial infections of unspecified site (principal)
CPT/HCPCS: 80048; 85027

== ENCOUNTER 2023-11-17 09:15 | Outpatient (RCR) | payer MEDICARE, OTHER, SELFPAY ==
[2023-10-19 00:47] VITALS: BP 149/78; PULSE 72; RESP 18; TEMP 35.7; BMI 28.8
[2023-10-20 07:58] VITALS: BP 164/59; PULSE 72; RESP 18; TEMP 36.7; BMI 28.8
[2023-10-22 10:55] VITALS: BP 110/81; PULSE 101; RESP 18; TEMP 35.6; BMI 28.8
--- NOTE | 2023-10-22 12:43 | PCM.WC.PN ---
History of Present Illness Date of Service: 10/22/23 Chief Complaint: Left medial ankle wound History of Wound: Patient is a 78-year-old male who presents to the wound care center with recurring left lower extremity medial ankle wound. He has PMHx of recurring left lower extremity ulceration secondary to chronic venous insufficiency, history of DVT, obesity, JOSHUA, iron deficient anemia, delayed wound healing, and asthma. He states that he does have compression stockings but his stockings are old. States that approximately 2-1/2 months ago this ulceration did open again to the medial ankle and has been unable to progress in healing. He was placed on oral antibiotics, cephalexin, and is finishing antibiotic course. Has been applying topical ointments to the wound daily with dressing changes. He did follow with his primary care who did refer him to the wound center due to nonhealing ulceration. He denies trauma to the site. States that the specific site is recurrent with breakdown of skin. Denies N/V/F/chills. No further complaints. 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 Patient states that the compression wrapping continues to make his legs feel better. He states he is also having less pain around the wound site. He states drainage has become more lately due to working long hours on feet. He reports standing/walking for more than 12 hours a day without elevating legs as he works through the weekend. He returned to the wound center on Thursday for dressing change and dressings reported to be soaked despite use of Fibracol applied in dressing. Reports less drainage from Thursday to today due to decreased time on feet. Denies constitutional symptoms. Denies further complaints. Objective Data Objective Data Vital Signs: Vital Signs Temp Pulse Resp BP O2 Del Method 96.0 F L 101 H 18 110/81 H Room Air 10/22/23 10:55 10/22/23 10:55 10/22/23 10:55 10/22/23 10:55 10/22/23 10:55 Oxygen Delivery Method Room Air Weight: 99.159 kg Body Mass Index (BMI) 28.8 Physical Exam Const alert, oriented x3 and no apparent distress General Appearance: cooperative HEENT normocephalic Eyes Eyes Narrative: Wears glasses General Eye: normal appearance of both eyes Neck General: normal visual inspection Lymph Lymphatic: no lymphadenopathy noted and no lymphedema noted Resp normal respiratory effort Cardio regular rate and regular rhythm Extremity normal capillary refill, no joint enlargement, no calf tenderness and no pedal edema Extremity Narrative: Vascular: DP and PT pulses weakly palpable. Capillary fill time to the digits is 5 seconds. Normal temperature gradient. There is absent hair growth to the digits noted. Dermatological: There is ulceration noted to the medial aspect of the left lower extremity/ankle with healthy granular layer and serosanguineous drainage. Ulceration is noted to be overlying the neurovascular bundle. Negative Stemmer sign left foot. There is evidence of stasis dermatitis with hyperpigmentation/hemosiderin staining of the left lower extremity. Musculoskeletal: Muscle strength 5 of 5 age-appropriate. Skin no rashes or lesions noted, skin turgor normal and no jaundice Neuro moves all extremities Debridement Note Debridement Note Wound debrided: Left medial ankle Laterality: Left Wound Grade/Stage: Cisneros stage II Type of Debridement: Excisional debridement Anesthesia Used: 5% Lidocaine Gel Depth: Down to and including healthy tissue and in the subcutaneous layer Percentage of wound debrided: 100 Instrument Used: 5mm curette Tissue Removed: Fibrous, devitalized subcutaneous, biofilm, slough Severity: Fat Layer Exposed Amount of bleeding with debridement: Mild Bleeding Controlled with: Compression and gauze Patient tolerated procedure: Patient tolerated procedure well Post-Debridement Measurements and Additional Note: Post-Debridement Measurements/Treatment - Nurse 1 - General Ulcer Assessment Start: 10/20/23 07:58 Freq: Status: Active Protocol: .LOWEXMyra Activity Type Activity Date Activity User E-sign Co-sign Detail Recorded Client Recorded Date Recorded By Document 10/20/23 07:58 [facility] Desktop 10/20/23 08:00 [facility] Document 10/22/23 10:55 Laptop 10/22/23 11:00 10/20/23 10/22/23 07:58 10:55 - Today's Visit Information Type of service Nurse-only Follow-up Visit Visit (Physician/[employer] ) Arrival Mode Ambulatory Ambulatory Patient Identification Verified (Name & Yes Yes ) Height and Weight Body Mass Index (BMI) 28.8 28.8 BMI Classification Overweight Overweight Vital Signs Temperature (97.8 F-99.1 F) 98.1 F 96.0 F L Temperature Source Temporal Temporal Pulse Rate (60-100) 72 101 H Pulse Location Monitor Monitor Respiratory Rate (12-18) 18 18 Respiratory rate source Observation Observation Oxygen Delivery Method Room Air Room Air Blood Pressure (90/60-120/80) 164/59 H 110/81 H Blood Pressure Mean (mm Hg) 94 90 Source Monitor Monitor Position Semi-Fowlers Semi-Fowlers Blood Pressure Location Left Arm Left Arm History Since Last Visit- (Skip if this is Patient's initial visit) Have you changed medications since your No No last visit? Any new allergies or adverse reactions No No Had a fall/change in ADL's that may No No increase risk of falls Signs or symptoms of abuse and/or No No neglect since last visit Have you been in the hospital since your No No last visit? Has dressing in place as prescribed Yes Yes Has compression in place as prescribed Yes Yes Has offloadiing in place as prescribed No No Experienced any changes in pain level or No No management Left Footwear Regular Shoe Regular Shoe Right Footwear Regular Shoe Regular Shoe Pain Scale: 0-10 Numeric Is Patient Pain Free? Yes Yes - Nurse 1 - General Ulcer Measurement Start: 10/20/23 07:58 Freq: Status: Active Protocol: Activity Type Activity Date Activity User E-sign Co-sign Detail Recorded Client Recorded Date Recorded By Document 10/20/23 08:00 [facility] Desktop 10/20/23 08:01 [facility] Document 10/22/23 10:55 Laptop 10/22/23 11:00 10/20/23 10/22/23 08:00 10:55 Wound Center Nurse 1 #1 L Med Ankle -Current Size (cm) - Length 2.3 -Current Size (cm) - Width 2.8 -Current Size (cm) - Depth 0.1 -Total Square Cm 6.44 -Exudate Amt Medium -Exudate Type Serosanguineous -Wound Margin Distinct, Outline Attached -Granulation Amt Large (67-100%) -Granulation Quality Red -Texture (Megan-wound Skin Appearance) Assessed -Moisture (Megan-wound Skin Appearance) Assessed -Color (Megan-wound Skin Appearance) Assessed -Temperature (Megan-wound Skin No Abnormality Appearance) (Pt Warm) -Ulcer Cleansing Soap and Water -Anesthetic Used 5% Lidocaine Gel Right Calf (cm) 38.2 Right Ankle (cm) 23.6 Left Calf (cm) 32.7 Left Ankle (cm) 22.6 WC - Nurse 2 - General Ulcer CM Notes Start: 10/20/23 07:58 Freq: Status: Active Protocol: Activity Type Activity Date Activity User E-sign Co-sign Detail Recorded Client Recorded Date Recorded By Document 10/22/23 12:24 PL [id number] 10/22/23 12:26 PL 10/22/23 12:24 Wound Center Nurse 2 #1 L Med Ankle -Time 11:13 -Correct Patient Yes -Correct Side, Site, Position Yes -Correct Procedure Yes -Procedure Performed Yes -Type of Procedure Debridement -Clinical Debridement Subcutaneous -Tissue Removed Subcutaneous -Post Debridement (cm) - Length 2.5 -Post Debridement (cm) - Width 2.5 -Post Debridement (cm) - Depth 0.1 -Total Square (Post) (cm) 6.25 -Area of Debridement (cm) - Length 2.5 -Area of Debridement (cm) - Width 2.5 -Total Square (Area) (cm) 6.25 -Tunneling No -Undermining/Tunneling No -Circular Undermining No -Wound/Ulcer Outcome Not Healed -Ulcer Cleansing Rinsed/ Irrigated with Saline -Foul Odor after Cleansing No -Bioengineered Tissue Yes -Type of Bioengineered Tissue Epifix Mesh -Expiration Date 06/19/28 -Product Lot Number [id number] -Percent Used 100 -Bleeding Controlled with Pressure -Treatment Response Procedure Tolerated Well -Debridement - Subq, 1st 20sq cm No -Apply Skin Sub - 1st 25 sq cm - Legs 1 -Epifix Mesh (per sq cm) 11 Pain Scale: 0-10 Numeric Is Patient Pain Free? Yes WC - Nurse 3 - General Ulcer D/C NN Start: 10/20/23 07:58 Freq: Status: Active Protocol: Activity Type Activity Date Activity User E-sign Co-sign Detail Recorded Client Recorded Date Recorded By Document 10/20/23 08:01 [facility] Desktop 10/20/23 08:03 [facility] Edit Result 10/20/23 08:01 [facility] (1) [id number] 10/21/23 07:17 PL Document 10/22/23 11:32 K[facility] Desktop 10/22/23 11:33 KW (1) Left - Multi-Layered Wrap Application => Multi-Layer Comp - => Left ($) 10/20/23 10/22/23 08:01 11:32 Wound Care Center Nurse 3 #1 L Med Ankle -Primary Dressing Applied Optilok 6.5x10 Optilok 6.5x10 -Primary Dressing Covered/Secured with Dry Gauze & Dry Gauze & Roll Gauze, Roll Gauze, Secured with Secured with Tape Tape -Optilok 6.5x10 2 2 Left -Multi-Layered Wrap Application Multi-Layer Multi-Layer Comp - Left ($) Comp - Left ($) Pain Scale: 0-10 Numeric Is Patient Pain Free? Yes Yes WC - Visit Discharge Discharge Condition Stable Ambulatory Status Ambulatory Transportation Private Auto Medication Reconcilliation completed & No provided to patient/care provider Clinical Summary of Care Provided Yes Assessment/Plan Assessment/Plan (1) Delayed wound healing: CODE(S): T14.8XXD - Other injury of unspecified body region, subsequent encounter (2) Non-pressure chronic ulcer of left ankle with necrosis of muscle: CODE(S): L97.323 - Non-pressure chronic ulcer of left ankle with necrosis of muscle (3) Venous insufficiency (chronic) (peripheral): CODE(S): I87.2 - Venous insufficiency (chronic) (peripheral) (4) Obesity: CODE(S): E66.9 - Obesity, unspecified (5) Iron deficiency anemia: CODE(S): D50.9 - Iron deficiency anemia, unspecified PLAN: Plan Patient seen and evaluated Left lower extremity: There is ulceration noted to the medial aspect of the left lower extremity/ankle with healthy granular tissue with some serosanguineous drainage. Ulceration is noted to be overlying the neurovascular bundle. Negative Stemmer sign left foot. There is evidence of stasis dermatitis with hyperpigmentation/hemosiderin staining of the left lower extremity. Ulceration underwent debridement as noted in the clinical panel above. Ulceration measures 2.5 cm x 2.5 cm x 0.2 cm. No signs of infection. Skin maceration present but overall wound is granulating in well. EpiFix graft #6 applied to wound bed and dressed with Adaptic touch and anchored with Steri-Strips. A Suprasorb dressing was applied then followed by a 3M compression wrap applied to the left lower extremity. Patient was instructed to not get the dressing wet. Ulceration continues to demonstrate reduction in size versus previous visits. Discussed if he soaks through dressing to call and return for new dressing/compression wrap application. Due to increased drainage from graft he was started on oral Augmentin 875mg BID x 14 days as precaution. He has finished oral abx to completion 3 weeks ago. He has however had another bout of increased drainage with some localized rubor secondary to macerated tissue. Patient is no longer elevating legs and increasing work shifts over the weekend of greater than 12 hours at a time on his feet. Discussion was had with him that he must continue elevating legs and limit time on feet to aid in wound healing. Cultures were obtained today 10/22/2023, awaiting results. Wound does demonstrate slight reduction in size however drainage is increasing from previous visit and thus will start oral antibiotic. Rx Augmentin 875 mg twice daily x 14 days. Stop date 11/05/2023. I discussed continued elevation of the lower extremity at all times of rest to aid in edema control. I discussed once ulceration is healed he is to return to a prescription based compression stocking. Discussed updating stockings every 6 to 9 months to ensure proper uniform compression to treat his chronic venous insufficiency and to reduce recidivism of wound. LEAS performed 09/02/23 demonstrates right RONEN 1.31, normal. TBI and Doppler/PVR waveforms of right leg normal at rest; left RONEN 1.38, normal. TBI and Doppler/PVR waveforms of the left leg normal at rest. Venous studies performed 09/02/2023 demonstrates no evidence of bilateral lower extremity DVT. Bilateral great saphenous veins appear patent and compressible segmentally. Positive for reflux right popliteal vein, great saphenous vein in. Positive for reflux left popliteal vein, saphenofemoral junction. Discussed importance of serial debridement to aid in wound healing. He was approved for application of EpiFix advanced wound product, we will continue applications. Discussed proper diet to increase protein intake to aid in wound healing. Recommended Vladimir supplementation. Discussed reducing foods with salty content to aid in edema control. Discussed avoidance of prolonged standing or legs dangling over side of chair/bed. Discussed with patient the depth of the ulcerative site and close proximity to the neurovascular bundle. Discussed with him signs and symptoms of infection. Discussed if he notices redness about the ulcerative site moving up the leg, purulent drainage from the wound site, foul increasing odor from the wound, or if he experiences fever greater than 101 degree, nausea, vomiting, chills/rigor, that these are signs of progressing infection and he should report to the ED to receive IV antibiotics. Patient and voiced understanding of this. The following work up and care recommendations were made: Dressing: EpiFix, Adaptic touch, Steri-Strips, Suprasorb, 3M compression wrap left lower extremity. Wash: Do not get wet Tissue growth optimization: EpiFix Offload: To ensure no pressure to the medial ankle/hindfoot Vascular: DP and PT pulses palpable with adequate capillary fill to digits. Edema: Discussed elevation of lower extremities at times of rest. 3M compression wrap placed. Infection: No signs of infection. Rx: Augmentin 875mg BID x 14 days, stop date 11/05/23. He was instructed to take oral antibiotic to completion. Pain: May take Tylenol extra strength for discomfort Host factors: Chronic venous insufficiency He will return for dressing change on 10/26/2023 and then will be seen again , 10/29/2023. I answered all the patient's questions. To return to the wound healing center in 1 week or call sooner if the patient has any questions or concerns.
[2023-10-26 08:20] VITALS: BP 135/55; PULSE 63; RESP 20; TEMP 36; BMI 28.8
--- NOTE | 2023-10-29 09:21 | PN.PCM_ITS ---
History of Present Illness Date of Service: 10/29/23 Chief Complaint: Left medial ankle wound History of Wound: Patient is a 78-year-old male who presents to the wound care center with recurring left lower extremity medial ankle wound. He has PMHx of recurring left lower extremity ulceration secondary to chronic venous insufficiency, history of DVT, obesity, JOSHUA, iron deficient anemia, delayed wound healing, and asthma. He states that he does have compression stockings but his stockings are old. States that approximately 2-1/2 months ago this ulceration did open again to the medial ankle and has been unable to progress in healing. He was placed on oral antibiotics, cephalexin, and is finishing antibiotic course. Has been applying topical ointments to the wound daily with dressing changes. He did follow with his primary care who did refer him to the wound center due to nonhealing ulceration. He denies trauma to the site. States that the specific site is recurrent with breakdown of skin. Denies N/V/F/chills. No further complaints. 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 Patient states that the compression wrapping continues to make his legs feel better. He states he is also having less pain around the wound site. He states drainage has become less with oral antibiotic and elevating feet more. He reports standing/walking for more than 12 hours a day without elevating legs as he works through the weekend but has cut back a few hours to aid in improvement. He returned to the wound center on Thursday for dressing change and dressings reported improvement with less drainage. Denies constitutional symptoms. Denies further complaints. Objective Data Objective Data Vital Signs: Vital Signs Temp Pulse Resp BP O2 Del Method 96.8 F L 63 20 H 135/55 H Room Air 10/26/23 08:20 10/26/23 08:20 10/26/23 08:20 10/26/23 08:20 10/22/23 10:55 Oxygen Delivery Method Room Air Weight: 99.159 kg Body Mass Index (BMI) 28.8 Lab / Micro Data Micro: Microbiology 10/22/23 11:20 Wound - Ankle Gram Stain - Final 10/22/23 11:20 Wound - Ankle Wound Culture - Final Pseudomonas aeruginosa 10/22/23 11:20 Wound - Ankle Anaerobic Culture - Final No anaerobic bacteria isolated. Physical Exam Const alert, oriented x3 and no apparent distress General Appearance: cooperative HEENT normocephalic Eyes Eyes Narrative: Wears glasses General Eye: normal appearance of both eyes Neck General: normal visual inspection Lymph Lymphatic: no lymphadenopathy noted and no lymphedema noted Resp normal respiratory effort Cardio regular rate and regular rhythm Extremity normal capillary refill, no joint enlargement, no calf tenderness and no pedal edema Extremity Narrative: Vascular: DP and PT pulses weakly palpable. Capillary fill time to the digits is 5 seconds. Normal temperature gradient. There is absent hair growth to the digits noted. Dermatological: There is ulceration noted to the medial aspect of the left lower extremity/ankle with healthy granular layer and serosanguineous drainage. Ulceration is noted to be overlying the neurovascular bundle. Negative Stemmer sign left foot. There is evidence of stasis dermatitis with hyperpigmentation/hemosiderin staining of the left lower extremity. Musculoskeletal: Muscle strength 5 of 5 age-appropriate. Skin no rashes or lesions noted, skin turgor normal and no jaundice Neuro moves all extremities Debridement Note Debridement Note Wound debrided: Left medial ankle Laterality: Left Wound Grade/Stage: Cisneros stage II Type of Debridement: Excisional debridement Anesthesia Used: 5% Lidocaine Gel Depth: Down to and including healthy tissue and in the subcutaneous layer Percentage of wound debrided: 100 Instrument Used: 5mm curette Tissue Removed: Fibrous, devitalized subcutaneous, biofilm, slough Severity: Fat Layer Exposed Amount of bleeding with debridement: Mild Bleeding Controlled with: Compression and gauze Patient tolerated procedure: Patient tolerated procedure well Post-Debridement Measurements and Additional Note: Post-Debridement Measurements/Treatment - Nurse 1 - General Ulcer Assessment Start: 10/20/23 07:58 Freq: Status: Active Protocol: .LOWEXMyra Activity Type Activity Date Activity User E-sign Co-sign Detail Recorded Client Recorded Date Recorded By Document 10/20/23 07:58 [facility] Desktop 10/20/23 08:00 BM Document 10/22/23 10:55 Laptop 10/22/23 11:00 Document 10/26/23 08:20 KW Desktop 10/26/23 08:28 KW 10/20/23 10/22/23 10/26/23 07:58 10:55 08:20 - Today's Visit Information Type of service Nurse-only Follow-up Visit Nurse-only Visit (Physician/[employer] Visit ) Arrival Mode Ambulatory Ambulatory Ambulatory Transfer Assistance None Patient Identification Verified (Name & Yes Yes Yes ) Patient Requires Transmission-Based No Precautions Height and Weight Body Mass Index (BMI) 28.8 28.8 28.8 BMI Classification Overweight Overweight Overweight Vital Signs Temperature (97.8 F-99.1 F) 98.1 F 96.0 F L 96.8 F L Temperature Source Temporal Temporal Temporal Pulse Rate (60-100) 72 101 H 63 Pulse Location Monitor Monitor Monitor Respiratory Rate (12-18) 18 18 20 H Respiratory rate source Observation Observation Observation Oxygen Delivery Method Room Air Room Air Blood Pressure (90/60-120/80) 164/59 H 110/81 H 135/55 H Blood Pressure Mean (mm Hg) 94 90 81 Source Monitor Monitor Monitor Position Semi-Fowlers Semi-Fowlers Blood Pressure Location Left Arm Left Arm History Since Last Visit- (Skip if this is Patient's initial visit) Have you changed medications since your No No last visit? Any new allergies or adverse reactions No No No Had a fall/change in ADL's that may No No No increase risk of falls Signs or symptoms of abuse and/or No No No neglect since last visit Have you been in the hospital since your No No No last visit? Has dressing in place as prescribed Yes Yes Yes Has compression in place as prescribed Yes Yes Yes Has offloadiing in place as prescribed No No N/A Experienced any changes in pain level or No No No management Left Footwear Regular Shoe Regular Shoe Right Footwear Regular Shoe Regular Shoe Pain Scale: 0-10 Numeric Is Patient Pain Free? Yes Yes Yes WC - Nurse 1 - General Ulcer Measurement Start: 10/20/23 07:58 Freq: Status: Active Protocol: Activity Type Activity Date Activity User E-sign Co-sign Detail Recorded Client Recorded Date Recorded By Document 10/20/23 08:00 [employer] Desktop 10/20/23 08:01 BM Document 10/22/23 10:55 JF Laptop 10/22/23 11:00 JF Document 10/26/23 08:20 KW Desktop 10/26/23 08:28 KW 10/20/23 10/22/23 10/26/23 08:00 10:55 08:20 Wound Center Nurse 1 #1 L Med Ankle -Current Size (cm) - Length 2.3 -Current Size (cm) - Width 2.8 -Current Size (cm) - Depth 0.1 -Total Square Cm 6.44 -Exudate Amt Medium Small -Exudate Type Serosanguineous Serosanguineous -Wound Margin Distinct, Outline Attached -Granulation Amt Large (67-100%) -Granulation Quality Red -Texture (Megan-wound Skin Appearance) Assessed -Moisture (Megan-wound Skin Appearance) Assessed Dry/Scaly -Color (Megan-wound Skin Appearance) Assessed Hemosiderin Staining -Temperature (Megan-wound Skin No Abnormality No Abnormality Appearance) (Pt Warm) (Pt Warm) -Tenderness on Palpation (Megan-wound No Skin Appearance) -Ulcer Cleansing Soap and Water Soap and Water -Foul Odor after Cleansing No -Anesthetic Used 5% Lidocaine Gel -Wound Comment(s) Epimesh intact. Pt remains on ATB as ordered. Voices no complaints. Right Calf (cm) 38.2 Right Ankle (cm) 23.6 Left Calf (cm) 32.7 39 Left Ankle (cm) 22.6 21.5 WC - Nurse 2 - General Ulcer CM Notes Start: 10/20/23 07:58 Freq: Status: Active Protocol: Activity Type Activity Date Activity User E-sign Co-sign Detail Recorded Client Recorded Date Recorded By Document 10/22/23 12:24 MALIHA [id number] 10/22/23 12:26 PL 10/22/23 12:24 Wound Center Nurse 2 #1 L Med Ankle -Time 11:13 -Correct Patient Yes -Correct Side, Site, Position Yes -Correct Procedure Yes -Procedure Performed Yes -Type of Procedure Debridement -Clinical Debridement Subcutaneous -Tissue Removed Subcutaneous -Post Debridement (cm) - Length 2.5 -Post Debridement (cm) - Width 2.5 -Post Debridement (cm) - Depth 0.1 -Total Square (Post) (cm) 6.25 -Area of Debridement (cm) - Length 2.5 -Area of Debridement (cm) - Width 2.5 -Total Square (Area) (cm) 6.25 -Tunneling No -Undermining/Tunneling No -Circular Undermining No -Wound/Ulcer Outcome Not Healed -Ulcer Cleansing Rinsed/ Irrigated with Saline -Foul Odor after Cleansing No -Bioengineered Tissue Yes -Type of Bioengineered Tissue Epifix Mesh -Expiration Date 06/19/28 -Product Lot Number [id number] -Percent Used 100 -Bleeding Controlled with Pressure -Treatment Response Procedure Tolerated Well -Debridement - Subq, 1st 20sq cm No -Apply Skin Sub - 1st 25 sq cm - Legs 1 -Epifix Mesh (per sq cm) 11 Pain Scale: 0-10 Numeric Is Patient Pain Free? Yes - Nurse 3 - General Ulcer D/C NN Start: 10/20/23 07:58 Freq: Status: Active Protocol: Activity Type Activity Date Activity User E-sign Co-sign Detail Recorded Client Recorded Date Recorded By Document 10/20/23 08:01 BMF Desktop 10/20/23 08:03 BMF Edit Result 10/20/23 08:01 BMF (1) [id number] 10/21/23 07:17 PL Document 10/22/23 11:32 KW Desktop 10/22/23 11:33 KW Document 10/26/23 07:38 PL [id number] 10/27/23 07:38 PL (1) Left - Multi-Layered Wrap Application => Multi-Layer Comp - => Left ($) 10/20/23 10/22/23 10/26/23 08:01 11:32 07:38 Wound Care Center Nurse 3 #1 L Med Ankle -Primary Dressing Applied Optilok 6.5x10 Optilok 6.5x10 -Primary Dressing Covered/Secured with Dry Gauze & Dry Gauze & Roll Gauze, Roll Gauze, Secured with Secured with Tape Tape -Optilok 6.5x10 2 2 Left -Multi-Layered Wrap Application Multi-Layer Multi-Layer Multi-Layer Comp - Left ($) Comp - Left ($) Comp - Left ($) Pain Scale: 0-10 Numeric Is Patient Pain Free? Yes Yes Yes - Visit Discharge Discharge Condition Stable Ambulatory Status Ambulatory Transportation Private Auto Medication Reconcilliation completed & No provided to patient/care provider Clinical Summary of Care Provided Yes Assessment/Plan Assessment/Plan (1) Delayed wound healing: CODE(S): T14.8XXD - Other injury of unspecified body region, subsequent encounter (2) Non-pressure chronic ulcer of left ankle with necrosis of muscle: CODE(S): L97.323 - Non-pressure chronic ulcer of left ankle with necrosis of muscle (3) Venous insufficiency (chronic) (peripheral): CODE(S): I87.2 - Venous insufficiency (chronic) (peripheral) (4) Obesity: CODE(S): E66.9 - Obesity, unspecified (5) Iron deficiency anemia: CODE(S): D50.9 - Iron deficiency anemia, unspecified PLAN: Plan Patient seen and evaluated Left lower extremity: There is ulceration noted to the medial aspect of the left lower extremity/ankle with healthy granular tissue with some serosanguineous drainage. Ulceration is noted to be overlying the neurovascular bundle. Negative Stemmer sign left foot. There is evidence of stasis dermatitis with hyperpigmentation/hemosiderin staining of the left lower extremity. Ulceration underwent debridement as noted in the clinical panel above. Ulceration measures 2.0 cm x 2.3 cm x 0.2 cm. No signs of infection. Skin maceration decreased with less drainage and wound is granulating in well. EpiFix graft #6 applied to wound bed at previous visit. Due to cultures of wound and urine with PsA we will refrain from application of graft today. Carlos Ain's wet-to-dry dressing applied with double Tubigrip compression stocking. He was educated to change dressing daily. We will look to resume applications of grafts at next visit. Ulceration continues to demonstrate reduction in size versus previous visits. Overall tissue much improved. Discussed if he soaks through dressing to call and return for new dressing/compression wrap application. He had another bout of increased drainage with some localized rubor secondary to macerated tissue. Patient is no longer elevating legs and increasing work shifts over the weekend of greater than 12 hours at a time on his feet. Discussion was had with him that he must continue elevating legs and limit time on feet to aid in wound healing. Cultures were obtained 10/22/2023 and positive wound and urine culture with PsA. Wound does demonstrate reduction in size however drainage due to previous drainage he was started on oral antibiotic. Rx Augmentin 875 mg twice daily x 14 days. Stop date 11/05/2023. I discussed continued elevation of the lower extremity at all times of rest to aid in edema control. I discussed once ulceration is healed he is to return to a prescription based compression stocking. Discussed updating stockings every 6 to 9 months to ensure proper uniform compression to treat his chronic venous insufficiency and to reduce recidivism of wound. LEAS performed 09/02/23 demonstrates right RONEN 1.31, normal. TBI and Doppler/PVR waveforms of right leg normal at rest; left RONEN 1.38, normal. TBI and Doppler/PVR waveforms of the left leg normal at rest. Venous studies performed 09/02/2023 demonstrates no evidence of bilateral lower extremity DVT. Bilateral great saphenous veins appear patent and compressible segmentally. Positive for reflux right popliteal vein, great saphenous vein in. Positive for reflux left popliteal vein, saphenofemoral junction. Discussed importance of serial debridement to aid in wound healing. He was approved for application of EpiFix advanced wound product, we will continue applications. Discussed proper diet to increase protein intake to aid in wound healing. Recommended Vladimir supplementation. Discussed reducing foods with salty content to aid in edema control. Discussed avoidance of prolonged standing or legs dangling over side of chair/bed. Discussed with patient the depth of the ulcerative site and close proximity to the neurovascular bundle. Discussed with him signs and symptoms of infection. Discussed if he notices redness about the ulcerative site moving up the leg, purulent drainage from the wound site, foul increasing odor from the wound, or if he experiences fever greater than 101 degree, nausea, vomiting, chills/rigor, that these are signs of progressing infection and he should report to the ED to receive IV antibiotics. Patient and voiced understanding of this. The following work up and care recommendations were made: Dressing: Dakin's wet to dry and double Tubigrip compression. At next visit will reapply EpiFix, Adaptic touch, Steri-Strips, Suprasorb, 3M compression wrap left lower extremity. Wash: Wash with soap and water Tissue growth optimization: Dakin's Offload: To ensure no pressure to the medial ankle/hindfoot Vascular: DP and PT pulses palpable with adequate capillary fill to digits. Edema: Discussed elevation of lower extremities at times of rest. 3M compression wrap placed. Infection: No signs of infection. Rx: Augmentin 875mg BID x 14 days, stop date 11/05/23. He was instructed to take oral antibiotic to completion. Pain: May take Tylenol extra strength for discomfort Host factors: Chronic venous insufficiency I answered all the patient's questions. To return to the wound healing center in 1 week or call sooner if the patient has any questions or concerns.
[2023-10-29 09:40] VITALS: BP 130/90; PULSE 72; RESP 16; TEMP 35.6; BMI 28.8
[2023-11-05 09:06] VITALS: BP 150/78; PULSE 70; RESP 18; BMI 28.8
--- NOTE | 2023-11-05 09:20 | PCM.WC.PN ---
History of Present Illness Date of Service: 11/05/23 Chief Complaint: Left medial ankle wound History of Wound: Patient is a 78-year-old male who presents to the wound care center with recurring left lower extremity medial ankle wound. He has PMHx of recurring left lower extremity ulceration secondary to chronic venous insufficiency, history of DVT, obesity, JOSHUA, iron deficient anemia, delayed wound healing, and asthma. He states that he does have compression stockings but his stockings are old. States that approximately 2-1/2 months ago this ulceration did open again to the medial ankle and has been unable to progress in healing. He was placed on oral antibiotics, cephalexin, and is finishing antibiotic course. Has been applying topical ointments to the wound daily with dressing changes. He did follow with his primary care who did refer him to the wound center due to nonhealing ulceration. He denies trauma to the site. States that the specific site is recurrent with breakdown of skin. Denies N/V/F/chills. No further complaints. 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 He has been changing Dakin's dressing daily. States drainage is decreased significantly. He is taking the oral antibiotic and did see infectious disease who will start IV infusion for treatment of UTI. Denies constitutional symptoms. Denies further complaints. Objective Data Objective Data Vital Signs: Vital Signs Temp Pulse Resp BP O2 Del Method 96.1 F L 70 18 150/78 H Room Air 10/29/23 09:40 11/05/23 09:06 11/05/23 09:06 11/05/23 09:06 11/05/23 09:06 Oxygen Delivery Method Room Air Weight: 99.159 kg Body Mass Index (BMI) 28.8 Lab / Micro Data Micro: Microbiology 10/22/23 11:20 Wound - Ankle Gram Stain - Final 10/22/23 11:20 Wound - Ankle Wound Culture - Final Pseudomonas aeruginosa 10/22/23 11:20 Wound - Ankle Anaerobic Culture - Final No anaerobic bacteria isolated. Physical Exam Const alert, oriented x3 and no apparent distress General Appearance: cooperative HEENT normocephalic Eyes Eyes Narrative: Wears glasses General Eye: normal appearance of both eyes Neck General: normal visual inspection Lymph Lymphatic: no lymphadenopathy noted and no lymphedema noted Resp normal respiratory effort Cardio regular rate and regular rhythm Extremity normal capillary refill, no joint enlargement, no calf tenderness and no pedal edema Extremity Narrative: Vascular: DP and PT pulses weakly palpable. Capillary fill time to the digits is 5 seconds. Normal temperature gradient. There is absent hair growth to the digits noted. Dermatological: There is ulceration noted to the medial aspect of the left lower extremity/ankle with healthy granular layer and serosanguineous drainage. Ulceration is noted to be overlying the neurovascular bundle. Negative Stemmer sign left foot. There is evidence of stasis dermatitis with hyperpigmentation/hemosiderin staining of the left lower extremity. Musculoskeletal: Muscle strength 5 of 5 age-appropriate. Skin no rashes or lesions noted, skin turgor normal and no jaundice Neuro moves all extremities Debridement Note Debridement Note Wound debrided: Left medial ankle Laterality: Left Wound Grade/Stage: Cisneros stage II Type of Debridement: Excisional debridement Anesthesia Used: 5% Lidocaine Gel Depth: Down to and including healthy tissue and in the subcutaneous layer Percentage of wound debrided: 100 Instrument Used: 5mm curette Tissue Removed: Fibrous, devitalized subcutaneous, biofilm, slough Severity: Fat Layer Exposed Amount of bleeding with debridement: Mild Bleeding Controlled with: Compression and gauze Patient tolerated procedure: Patient tolerated procedure well Post-Debridement Measurements and Additional Note: Post-Debridement Measurements/Treatment - Nurse 1 - General Ulcer Assessment Start: 10/20/23 07:58 Freq: Status: Active Protocol: .LOWEXMyra Activity Type Activity Date Activity User E-sign Co-sign Detail Recorded Client Recorded Date Recorded By Document 10/20/23 07:58 [facility] Desktop 10/20/23 08:00 [facility] Document 10/22/23 10:55 Laptop 10/22/23 11:00 Document 10/26/23 08:20 KW Desktop 10/26/23 08:28 KW Document 10/29/23 09:40 [id number] 10/29/23 09:41 Document 11/05/23 09:06 KW Desktop 11/05/23 09:12 KW 10/20/23 10/22/23 10/26/23 07:58 10:55 08:20 - Today's Visit Information Type of service Nurse-only Follow-up Visit Nurse-only Visit (Physician/[employer]ATION MANAGER Visit ) Arrival Mode Ambulatory Ambulatory Ambulatory Transfer Assistance None Accompanied by Patient Identification Verified (Name & Yes Yes Yes ) Patient Requires Transmission-Based No Precautions Height and Weight Body Mass Index (BMI) 28.8 28.8 28.8 BMI Classification Overweight Overweight Overweight Vital Signs Temperature (97.8 F-99.1 F) 98.1 F 96.0 F L 96.8 F L Temperature Source Temporal Temporal Temporal Pulse Rate (60-100) 72 101 H 63 Pulse Location Monitor Monitor Monitor Respiratory Rate (12-18) 18 18 20 H Respiratory rate source Observation Observation Observation Oxygen Delivery Method Room Air Room Air Blood Pressure (90/60-120/80) 164/59 H 110/81 H 135/55 H Blood Pressure Mean (mm Hg) 94 90 81 Source Monitor Monitor Monitor Position Semi-Fowlers Semi-Fowlers Blood Pressure Location Left Arm Left Arm History Since Last Visit- (Skip if this is Patient's initial visit) Have you changed medications since your No No last visit? Any new allergies or adverse reactions No No No Had a fall/change in ADL's that may No No No increase risk of falls Signs or symptoms of abuse and/or No No No neglect since last visit Have you been in the hospital since your No No No last visit? Has dressing in place as prescribed Yes Yes Yes Has compression in place as prescribed Yes Yes Yes Has offloadiing in place as prescribed No No N/A Experienced any changes in pain level or No No No management Left Footwear Regular Shoe Regular Shoe Right Footwear Regular Shoe Regular Shoe Pain Scale: 0-10 Numeric Is Patient Pain Free? Yes Yes Yes 10/29/23 11/05/23 09:40 09:06 WC - Today's Visit Information Type of service Follow-up Visit Follow-up Visit (Physician/[employer]AR [employer] INSTALLATION MANAGER (Physician/[employer] INSTALLATION MANAGER ) ) Arrival Mode Ambulatory Ambulatory Transfer Assistance Accompanied by Patient Identification Verified (Name & Yes Yes ) Patient Requires Transmission-Based No Precautions Height and Weight Body Mass Index (BMI) 28.8 28.8 BMI Classification Overweight Overweight Vital Signs Temperature (97.8 F-99.1 F) 96.1 F L Temperature Source Temporal Pulse Rate (60-100) 72 70 Pulse Location Monitor Monitor Respiratory Rate (12-18) 16 18 Respiratory rate source Observation Observation Oxygen Delivery Method Room Air Blood Pressure (90/60-120/80) 130/90 H 150/78 H Blood Pressure Mean (mm Hg) 103 102 Source Monitor Monitor Position Semi-Fowlers Semi-Fowlers Blood Pressure Location Left Arm Left Arm History Since Last Visit- (Skip if this is Patient's initial visit) Have you changed medications since your No No last visit? Any new allergies or adverse reactions No No Had a fall/change in ADL's that may No No increase risk of falls Signs or symptoms of abuse and/or No No neglect since last visit Have you been in the hospital since your No No last visit? Has dressing in place as prescribed Yes Yes Has compression in place as prescribed Yes Yes Has offloadiing in place as prescribed N/A N/A Experienced any changes in pain level or No No management Left Footwear Regular Shoe Regular Shoe Right Footwear Regular Shoe Regular Shoe Pain Scale: 0-10 Numeric Is Patient Pain Free? Yes Yes WC - Nurse 1 - General Ulcer Measurement Start: 10/20/23 07:58 Freq: Status: Active Protocol: Activity Type Activity Date Activity User E-sign Co-sign Detail Recorded Client Recorded Date Recorded By Document 10/20/23 08:00 [employer] 10/20/23 08:01 [employer] Document 10/22/23 10:55 [employer] Laptop 10/22/23 11:00 [employer] Document 10/26/23 08:20 [email or web address] 10/26/23 08:28 KW Document 10/29/23 09:40 [id number] 10/29/23 09:41 JF Document 11/05/23 09:06 KW Desktop 11/05/23 09:12 KW 10/20/23 10/22/23 10/26/23 08:00 10:55 08:20 Wound Center Nurse 1 #1 L Med Ankle -Combined with other wound -Current Size (cm) - Length 2.3 -Current Size (cm) - Width 2.8 -Current Size (cm) - Depth 0.1 -Total Square Cm 6.44 -Date of Last Picture (Recall this field) -Photo Taken -Epithelialization -Tunneling -Undermining/Tunneling -Circular Undermining -Exudate Amt Medium Small -Exudate Type Serosanguineous Serosanguineous -Wound Margin Distinct, Outline Attached -Granulation Amt Large (67-100%) -Granulation Quality Red -Slough/Fibrin -Necrosis Amt -Necrotic Tissue Type -Structure Exposed -Texture (Megan-wound Skin Appearance) Assessed -Moisture (Megan-wound Skin Appearance) Assessed Dry/Scaly -Color (Megan-wound Skin Appearance) Assessed Hemosiderin Staining -Temperature (Megan-wound Skin No Abnormality No Abnormality Appearance) (Pt Warm) (Pt Warm) -Tenderness on Palpation (Megan-wound No Skin Appearance) -Ulcer Cleansing Soap and Water Soap and Water -Foul Odor after Cleansing No -Anesthetic Used 5% Lidocaine Gel -Wound Comment(s) Epimesh intact. Pt remains on ATB as ordered. Voices no complaints. Lower Limb Edema Present Right Calf (cm) 38.2 Right Ankle (cm) 23.6 Left Calf (cm) 32.7 39 Left Ankle (cm) 22.6 21.5 10/29/23 11/05/23 09:40 09:06 Wound Center Nurse 1 #1 L Med Ankle -Combined with other wound No -Current Size (cm) - Length 2.0 1.5 -Current Size (cm) - Width 2.6 2.0 -Current Size (cm) - Depth 0.1 0.1 -Total Square Cm 5.20 3.00 -Date of Last Picture (Recall this 11/05/23 field) -Photo Taken No Yes -Epithelialization Small 1-33% -Tunneling No -Undermining/Tunneling No -Circular Undermining No -Exudate Amt Large Small -Exudate Type Yellow/Green Serosanguineous -Wound Margin Flat & Intact Distinct, Outline Attached -Granulation Amt Large (67-100%) Medium (34-66%) -Granulation Quality Red Red -Slough/Fibrin Yes -Necrosis Amt Small (1-33%) Small (1-33%) -Necrotic Tissue Type Adherent Slough Adherent Slough -Structure Exposed N/A -Texture (Megan-wound Skin Appearance) Assessed, Assessed Excoriation, Localized Edema -Moisture (Megan-wound Skin Appearance) Assessed,Dry/ Assessed Scaly -Color (Megan-wound Skin Appearance) Assessed Assessed -Temperature (Megan-wound Skin No Abnormality No Abnormality Appearance) (Pt Warm) (Pt Warm) -Tenderness on Palpation (Megan-wound No Skin Appearance) -Ulcer Cleansing Wound Cleanser Soap and Water -Foul Odor after Cleansing No No -Anesthetic Used 5% Lidocaine 5% Lidocaine Gel Gel -Wound Comment(s) Lower Limb Edema Present Yes Right Calf (cm) Right Ankle (cm) Left Calf (cm) 36.8 40.5 Left Ankle (cm) 23.0 25 - Nurse 2 - General Ulcer CM Notes Start: 10/20/23 07:58 Freq: Status: Active Protocol: Activity Type Activity Date Activity User E-sign Co-sign Detail Recorded Client Recorded Date Recorded By Document 10/22/23 12:24 PL [id number] 10/22/23 12:26 PL Document 10/29/23 12:03 PL [id number] 10/29/23 12:04 PL 10/22/23 10/29/23 12:24 12:03 Wound Center Nurse 2 #1 L Med Ankle -Time 11:13 09:37 -Correct Patient Yes Yes -Correct Side, Site, Position Yes Yes -Correct Procedure Yes Yes -Procedure Performed Yes Yes -Type of Procedure Debridement Debridement -Clinical Debridement Subcutaneous Subcutaneous -Tissue Removed Subcutaneous Subcutaneous -Post Debridement (cm) - Length 2.5 2.0 -Post Debridement (cm) - Width 2.5 2.3 -Post Debridement (cm) - Depth 0.1 0.2 -Total Square (Post) (cm) 6.25 4.60 -Area of Debridement (cm) - Length 2.5 2.0 -Area of Debridement (cm) - Width 2.5 2.3 -Total Square (Area) (cm) 6.25 4.60 -Tunneling No No -Undermining/Tunneling No No -Circular Undermining No No -Wound/Ulcer Outcome Not Healed Not Healed -Ulcer Cleansing Rinsed/ Rinsed/ Irrigated with Irrigated with Saline Saline -Foul Odor after Cleansing No No -Bioengineered Tissue Yes No -Type of Bioengineered Tissue Epifix Mesh -Expiration Date 06/19/28 -Product Lot Number [id number] -Percent Used 100 -Bleeding Controlled with Pressure Pressure -Treatment Response Procedure Procedure Tolerated Well Tolerated Well -Debridement - Subq, 1st 20sq cm No Yes -Apply Skin Sub - 1st 25 sq cm - Legs 1 -Epifix Mesh (per sq cm) 11 Pain Scale: 0-10 Numeric Is Patient Pain Free? Yes Yes - Nurse 3 - General Ulcer D/C NN Start: 10/20/23 07:58 Freq: Status: Active Protocol: Activity Type Activity Date Activity User E-sign Co-sign Detail Recorded Client Recorded Date Recorded By Document 10/20/23 08:01 [facility] Desktop 10/20/23 08:03 [facility] Edit Result 10/20/23 08:01 [facility] (1) [id number] 10/21/23 07:17 PL Document 10/22/23 11:32 KW Desktop 10/22/23 11:33 KW Document 10/26/23 07:38 PL [id number] 10/27/23 07:38 PL Document 10/29/23 09:53 KW Desktop 10/29/23 09:54 KW Document 11/05/23 09:18 KW Desktop 11/05/23 09:20 KW (1) Left - Multi-Layered Wrap Application => Multi-Layer Comp - => Left ($) 10/20/23 10/22/23 10/26/23 08:01 11:32 07:38 Wound Care Center Nurse 3 #1 L Med Ankle -Ulcer Cleansing -Foul Odor after Cleansing -Primary Dressing Applied Optilok 6.5x10 Optilok 6.5x10 -Other Dressing -Primary Dressing Covered/Secured with Dry Gauze & Dry Gauze & Roll Gauze, Roll Gauze, Secured with Secured with Tape Tape -Optilok 6.5x10 2 2 Left -Multi-Layered Wrap Application Multi-Layer Multi-Layer Multi-Layer Comp - Left ($) Comp - Left ($) Comp - Left ($) -Tubular Bandage -Size of Tubigrip Used -Size D ($) Treatment Response Pain Scale: 0-10 Numeric Is Patient Pain Free? Yes Yes Yes WC - Visit Discharge Discharge Condition Stable Ambulatory Status Ambulatory Transportation Private Auto Medication Reconcilliation completed & No provided to patient/care provider Clinical Summary of Care Provided Yes 10/29/23 11/05/23 09:53 09:18 Wound Care Center Nurse 3 #1 L Med Ankle -Ulcer Cleansing Rinsed/ Rinsed/ Irrigated with Irrigated with Saline Saline -Foul Odor after Cleansing No -Primary Dressing Applied Hysept ($) Hysept ($) -Other Dressing abd, kerlix -Primary Dressing Covered/Secured with Dry Gauze & Dry Gauze & Roll Gauze, Roll Gauze, Secured with Secured with Tape Tape -Optilok 6.5x10 Left -Multi-Layered Wrap Application -Tubular Bandage Single Layer -Size of Tubigrip Used Size D -Size D ($) 1 Treatment Response Procedure Tolerated Well Pain Scale: 0-10 Numeric Is Patient Pain Free? Yes Yes WC - Visit Discharge Discharge Condition Stable Stable Ambulatory Status Ambulatory Ambulatory Transportation Private Auto Private Auto Medication Reconcilliation completed & No provided to patient/care provider Clinical Summary of Care Provided Yes Assessment/Plan Assessment/Plan (1) Delayed wound healing: CODE(S): T14.8XXD - Other injury of unspecified body region, subsequent encounter (2) Non-pressure chronic ulcer of left ankle with necrosis of muscle: CODE(S): L97.323 - Non-pressure chronic ulcer of left ankle with necrosis of muscle (3) Venous insufficiency (chronic) (peripheral): CODE(S): I87.2 - Venous insufficiency (chronic) (peripheral) (4) Obesity: CODE(S): E66.9 - Obesity, unspecified (5) Iron deficiency anemia: CODE(S): D50.9 - Iron deficiency anemia, unspecified PLAN: Plan Patient seen and evaluated Left lower extremity: There is ulceration noted to the medial aspect of the left lower extremity/ankle with healthy granular tissue with some serosanguineous drainage. Ulceration is noted to be overlying the neurovascular bundle. Negative Stemmer sign left foot. There is evidence of stasis dermatitis with hyperpigmentation/hemosiderin staining of the left lower extremity. Ulceration underwent debridement as noted in the clinical panel above. Ulceration measures 1.6 cm x 2.1 cm x 0.2 cm. No signs of infection. Skin maceration improved with less drainage and wound is granulating in well. EpiFix graft #7 applied to wound bed today. Site dressed with Adaptic touch, Steri-Strips, and dry sterile dressing. 3M compression wrap applied to lower extremity. He was instructed to not get the dressing wet. Ulceration continues to demonstrate reduction in size versus previous visits. Overall tissue much improved with less drainage. Discussed if he soaks through dressing to call and return for new dressing/compression wrap application. He had another bout of increased drainage with some localized rubor secondary to macerated tissue. Patient was not elevating legs and increasing work shifts over the weekend of greater than 12 hours at a time on his feet. Discussion was had with him that he must continue elevating legs and limit time on feet to aid in wound healing. Cultures were obtained 10/22/2023 and positive wound and urine culture with PsA. Also has PsA in urine. Wound does demonstrate reduction in size however due to previous drainage he was started on oral antibiotic. Rx Augmentin 875 mg twice daily x 14 days. Stop date 11/05/2023. He is following with infectious disease and will continue to receive outpatient IV antibiotic infusions. I discussed continued elevation of the lower extremity at all times of rest to aid in edema control. I discussed once ulceration is healed he is to return to a prescription based compression stocking. Discussed updating stockings every 6 to 9 months to ensure proper uniform compression to treat his chronic venous insufficiency and to reduce recidivism of wound. LEAS performed 09/02/23 demonstrates right RONEN 1.31, normal. TBI and Doppler/PVR waveforms of right leg normal at rest; left RONEN 1.38, normal. TBI and Doppler/PVR waveforms of the left leg normal at rest. Venous studies performed 09/02/2023 demonstrates no evidence of bilateral lower extremity DVT. Bilateral great saphenous veins appear patent and compressible segmentally. Positive for reflux right popliteal vein, great saphenous vein in. Positive for reflux left popliteal vein, saphenofemoral junction. Discussed importance of serial debridement to aid in wound healing. He was approved for application of EpiFix advanced wound product, we will continue applications. Discussed proper diet to increase protein intake to aid in wound healing. Recommended Vladimir supplementation. Discussed reducing foods with salty content to aid in edema control. Discussed avoidance of prolonged standing or legs dangling over side of chair/bed. Discussed with patient the depth of the ulcerative site and close proximity to the neurovascular bundle. Discussed with him signs and symptoms of infection. Discussed if he notices redness about the ulcerative site moving up the leg, purulent drainage from the wound site, foul increasing odor from the wound, or if he experiences fever greater than 101 degree, nausea, vomiting, chills/rigor, that these are signs of progressing infection and he should report to the ED to receive IV antibiotics. Patient and voiced understanding of this. The following work up and care recommendations were made: Dressing: EpiFix, Adaptic touch, Steri-Strips, Suprasorb, 3M compression wrap left lower extremity. Wash: Do not get wet Tissue growth optimization: EpiFix Offload: To ensure no pressure to the medial ankle/hindfoot Vascular: DP and PT pulses palpable with adequate capillary fill to digits. Edema: Discussed elevation of lower extremities at times of rest. 3M compression wrap placed. Infection: No signs of infection. Rx: Augmentin 875mg BID x 14 days, stop date 11/05/23. He was instructed to take oral antibiotic to completion. Will continue following infectious disease for IV antibiotic outpatient at infusion center for treatment of UTI Pain: May take Tylenol extra strength for discomfort Host factors: Chronic venous insufficiency I answered all the patient's questions. To return to the wound healing center in 1 week or call sooner if the patient has any questions or concerns.
[2023-11-12 09:08] VITALS: BP 128/76; PULSE 68; RESP 18; TEMP 35.3; BMI 28.8
--- NOTE | 2023-11-12 09:18 | PCM.WC.PN ---
History of Present Illness Date of Service: 11/12/23 Chief Complaint: Left medial ankle wound History of Wound: Patient is a 78-year-old male who presents to the wound care center with recurring left lower extremity medial ankle wound. He has PMHx of recurring left lower extremity ulceration secondary to chronic venous insufficiency, history of DVT, obesity, JOSHUA, iron deficient anemia, delayed wound healing, and asthma. He states that he does have compression stockings but his stockings are old. States that approximately 2-1/2 months ago this ulceration did open again to the medial ankle and has been unable to progress in healing. He was placed on oral antibiotics, cephalexin, and is finishing antibiotic course. Has been applying topical ointments to the wound daily with dressing changes. He did follow with his primary care who did refer him to the wound center due to nonhealing ulceration. He denies trauma to the site. States that the specific site is recurrent with breakdown of skin. Denies N/V/F/chills. No further complaints. 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 He has left grafting product in place and is keeping compression dressing dry. He states he has started his infusions of IV Zosyn and will complete 6-week course per infectious disease. States he is continuing to elevate lower extremities and has noticed improvement in wound size. Denies constitutional symptoms. Denies further complaints. Objective Data Objective Data Vital Signs: Vital Signs Temp Pulse Resp BP O2 Del Method 95.5 F L 68 18 128/76 H Room Air 11/12/23 09:08 11/12/23 09:08 11/12/23 09:08 11/12/23 09:08 11/12/23 09:08 Oxygen Delivery Method Room Air Weight: 99.159 kg Body Mass Index (BMI) 28.8 Lab / Micro Data Micro: Microbiology 10/22/23 11:20 Wound - Ankle Gram Stain - Final 10/22/23 11:20 Wound - Ankle Wound Culture - Final Pseudomonas aeruginosa 10/22/23 11:20 Wound - Ankle Anaerobic Culture - Final No anaerobic bacteria isolated. Physical Exam Const alert, oriented x3 and no apparent distress General Appearance: cooperative HEENT normocephalic Eyes Eyes Narrative: Wears glasses General Eye: normal appearance of both eyes Neck General: normal visual inspection Lymph Lymphatic: no lymphadenopathy noted and no lymphedema noted Resp normal respiratory effort Cardio regular rate and regular rhythm Extremity normal capillary refill, no joint enlargement, no calf tenderness and no pedal edema Extremity Narrative: Vascular: DP and PT pulses weakly palpable. Capillary fill time to the digits is 5 seconds. Normal temperature gradient. There is absent hair growth to the digits noted. Dermatological: There is ulceration noted to the medial aspect of the left lower extremity/ankle with healthy granular layer and serosanguineous drainage. Ulceration is noted to be overlying the neurovascular bundle. Negative Stemmer sign left foot. There is evidence of stasis dermatitis with hyperpigmentation/hemosiderin staining of the left lower extremity. Musculoskeletal: Muscle strength 5 of 5 age-appropriate. Skin no rashes or lesions noted, skin turgor normal and no jaundice Neuro moves all extremities Debridement Note Debridement Note Wound debrided: Left medial ankle Laterality: Left Wound Grade/Stage: Cisneros stage II Type of Debridement: Excisional debridement Anesthesia Used: 5% Lidocaine Gel Depth: Down to and including healthy tissue and in the subcutaneous layer Percentage of wound debrided: 100 Instrument Used: 5mm curette Tissue Removed: Fibrous, devitalized subcutaneous, biofilm, slough Severity: Fat Layer Exposed Amount of bleeding with debridement: Mild Bleeding Controlled with: Compression and gauze Patient tolerated procedure: Patient tolerated procedure well Post-Debridement Measurements and Additional Note: Post-Debridement Measurements/Treatment WC - Nurse 1 - General Ulcer Assessment Start: 10/20/23 07:58 Freq: Status: Active Protocol: .LOWEXT Activity Type Activity Date Activity User E-sign Co-sign Detail Recorded Client Recorded Date Recorded By Document 10/20/23 07:58 [facility] Desktop 10/20/23 08:00 [facility] Document 10/22/23 10:55 Laptop 10/22/23 11:00 JF Document 10/26/23 08:20 KW Desktop 10/26/23 08:28 KW Document 10/29/23 09:40 [id number] 10/29/23 09:41 JF Document 11/05/23 09:06 KW Desktop 11/05/23 09:12 KW Document 11/12/23 09:08 KW Desktop 11/12/23 09:17 KW 10/20/23 10/22/23 10/26/23 07:58 10:55 08:20 - Today's Visit Information Type of service Nurse-only Follow-up Visit Nurse-only Visit (Physician/INJECTION MACHINE OPERATOR Visit ) Arrival Mode Ambulatory Ambulatory Ambulatory Transfer Assistance None Accompanied by Patient Identification Verified (Name & Yes Yes Yes ) Patient Requires Transmission-Based No Precautions Height and Weight Body Mass Index (BMI) 28.8 28.8 28.8 BMI Classification Overweight Overweight Overweight Vital Signs Temperature (97.8 F-99.1 F) 98.1 F 96.0 F L 96.8 F L Temperature Source Temporal Temporal Temporal Pulse Rate (60-100) 72 101 H 63 Pulse Location Monitor Monitor Monitor Respiratory Rate (12-18) 18 18 20 H Respiratory rate source Observation Observation Observation Oxygen Delivery Method Room Air Room Air Blood Pressure (90/60-120/80) 164/59 H 110/81 H 135/55 H Blood Pressure Mean (mm Hg) 94 90 81 Source Monitor Monitor Monitor Position Semi-Fowlers Semi-Fowlers Blood Pressure Location Left Arm Left Arm History Since Last Visit- (Skip if this is Patient's initial visit) Have you changed medications since your No No last visit? Any new allergies or adverse reactions No No No Had a fall/change in ADL's that may No No No increase risk of falls Signs or symptoms of abuse and/or No No No neglect since last visit Have you been in the hospital since your No No No last visit? Has dressing in place as prescribed Yes Yes Yes Has compression in place as prescribed Yes Yes Yes Has offloadiing in place as prescribed No No N/A Experienced any changes in pain level or No No No management Left Footwear Regular Shoe Regular Shoe Right Footwear Regular Shoe Regular Shoe Pain Scale: 0-10 Numeric Is Patient Pain Free? Yes Yes Yes 10/29/23 11/05/23 11/12/23 09:40 09:06 09:08 - Today's Visit Information Type of service Follow-up Visit Follow-up Visit Follow-up Visit (Physician/INJECTION MACHINE OPERATOR (Physician/INJECTION MACHINE OPERATOR (Physician/INJECTION MACHINE OPERATOR ) ) ) Arrival Mode Ambulatory Ambulatory Ambulatory Transfer Assistance Accompanied by Patient Identification Verified (Name & Yes Yes Yes ) Patient Requires Transmission-Based No Precautions Height and Weight Body Mass Index (BMI) 28.8 28.8 28.8 BMI Classification Overweight Overweight Overweight Vital Signs Temperature (97.8 F-99.1 F) 96.1 F L 95.5 F L Temperature Source Temporal Temporal Pulse Rate (60-100) 72 70 68 Pulse Location Monitor Monitor Monitor Respiratory Rate (12-18) 16 18 18 Respiratory rate source Observation Observation Observation Oxygen Delivery Method Room Air Room Air Blood Pressure (90/60-120/80) 130/90 H 150/78 H 128/76 H Blood Pressure Mean (mm Hg) 103 102 93 Source Monitor Monitor Monitor Position Semi-Fowlers Semi-Fowlers Sitting Blood Pressure Location Left Arm Left Arm Right Arm History Since Last Visit- (Skip if this is Patient's initial visit) Have you changed medications since your No No No last visit? Any new allergies or adverse reactions No No No Had a fall/change in ADL's that may No No No increase risk of falls Signs or symptoms of abuse and/or No No No neglect since last visit Have you been in the hospital since your No No No last visit? Has dressing in place as prescribed Yes Yes Yes Has compression in place as prescribed Yes Yes Yes Has offloadiing in place as prescribed N/A N/A N/A Experienced any changes in pain level or No No No management Left Footwear Regular Shoe Regular Shoe Regular Shoe Right Footwear Regular Shoe Regular Shoe Regular Shoe Pain Scale: 0-10 Numeric Is Patient Pain Free? Yes Yes Yes WC - Nurse 1 - General Ulcer Measurement Start: 10/20/23 07:58 Freq: Status: Active Protocol: Activity Type Activity Date Activity User E-sign Co-sign Detail Recorded Client Recorded Date Recorded By Document 10/20/23 08:00 [employer] Desktop 10/20/23 08:01 [facility] Document 10/22/23 10:55 Laptop 10/22/23 11:00 JF Document 10/26/23 08:20 KW Desktop 10/26/23 08:28 KW Document 10/29/23 09:40 [id number] 10/29/23 09:41 JF Document 11/05/23 09:06 KW Desktop 11/05/23 09:12 KW Document 11/12/23 09:08 KW Desktop 11/12/23 09:17 KW 10/20/23 10/22/23 10/26/23 08:00 10:55 08:20 Wound Center Nurse 1 #1 L Med Ankle -Combined with other wound -Current Size (cm) - Length 2.3 -Current Size (cm) - Width 2.8 -Current Size (cm) - Depth 0.1 -Total Square Cm 6.44 -Date of Last Picture (Recall this field) -Photo Taken -Epithelialization -Tunneling -Undermining/Tunneling -Circular Undermining -Exudate Amt Medium Small -Exudate Type Serosanguineous Serosanguineous -Wound Margin Distinct, Outline Attached -Granulation Amt Large (67-100%) -Granulation Quality Red -Slough/Fibrin -Necrosis Amt -Necrotic Tissue Type -Structure Exposed -Texture (Megan-wound Skin Appearance) Assessed -Moisture (Megan-wound Skin Appearance) Assessed Dry/Scaly -Color (Megan-wound Skin Appearance) Assessed Hemosiderin Staining -Temperature (Megan-wound Skin No Abnormality No Abnormality Appearance) (Pt Warm) (Pt Warm) -Tenderness on Palpation (Megan-wound No Skin Appearance) -Ulcer Cleansing Soap and Water Soap and Water -Foul Odor after Cleansing No -Anesthetic Used 5% Lidocaine Gel -Wound Comment(s) Epimesh intact. Pt remains on ATB as ordered. Voices no complaints. Lower Limb Edema Present Right Calf (cm) 38.2 Right Ankle (cm) 23.6 Left Calf (cm) 32.7 39 Left Ankle (cm) 22.6 21.5 10/29/23 11/05/23 11/12/23 09:40 09:06 09:08 Wound Center Nurse 1 #1 L Med Ankle -Combined with other wound No -Current Size (cm) - Length 2.0 1.5 1.5 -Current Size (cm) - Width 2.6 2.0 1.9 -Current Size (cm) - Depth 0.1 0.1 0.1 -Total Square Cm 5.20 3.00 2.85 -Date of Last Picture (Recall this 11/05/23 field) -Photo Taken No Yes -Epithelialization Small 1-33% -Tunneling No -Undermining/Tunneling No -Circular Undermining No -Exudate Amt Large Small Medium -Exudate Type Yellow/Green Serosanguineous Serosanguineous -Wound Margin Flat & Intact Distinct, Distinct, Outline Outline Attached Attached -Granulation Amt Large (67-100%) Medium (34-66%) Large (67-100%) -Granulation Quality Red Red Red -Slough/Fibrin Yes -Necrosis Amt Small (1-33%) Small (1-33%) Small (1-33%) -Necrotic Tissue Type Adherent Slough Adherent Slough Adherent Slough -Structure Exposed N/A -Texture (Megan-wound Skin Appearance) Assessed, Assessed Assessed Excoriation, Localized Edema -Moisture (Megan-wound Skin Appearance) Assessed,Dry/ Assessed Assessed,Dry/ Scaly Scaly -Color (Megan-wound Skin Appearance) Assessed Assessed Assessed -Temperature (Megan-wound Skin No Abnormality No Abnormality No Abnormality Appearance) (Pt Warm) (Pt Warm) (Pt Warm) -Tenderness on Palpation (Megan-wound No Skin Appearance) -Ulcer Cleansing Wound Cleanser Soap and Water Soap and Water -Foul Odor after Cleansing No No No -Anesthetic Used 5% Lidocaine 5% Lidocaine 5% Lidocaine Gel Gel Gel -Wound Comment(s) Lower Limb Edema Present Yes Right Calf (cm) Right Ankle (cm) Left Calf (cm) 36.8 40.5 36.5 Left Ankle (cm) 23.0 25 25 WC - Nurse 2 - General Ulcer CM Notes Start: 10/20/23 07:58 Freq: Status: Active Protocol: Activity Type Activity Date Activity User E-sign Co-sign Detail Recorded Client Recorded Date Recorded By Document 10/22/23 12:24 PL [id number] 10/22/23 12:26 PL Document 10/29/23 12:03 PL [id number] 10/29/23 12:04 PL Document 11/05/23 10:22 PL Tablet 11/05/23 10:25 PL 10/22/23 10/29/23 11/05/23 12:24 12:03 10:22 Wound Center Nurse 2 #1 L Med Ankle -Time 11:13 09:37 09:30 -Correct Patient Yes Yes Yes -Correct Side, Site, Position Yes Yes Yes -Correct Procedure Yes Yes Yes -Procedure Performed Yes Yes Yes -Type of Procedure Debridement Debridement Debridement -Clinical Debridement Subcutaneous Subcutaneous Subcutaneous -Tissue Removed Subcutaneous Subcutaneous Subcutaneous -Post Debridement (cm) - Length 2.5 2.0 1.6 -Post Debridement (cm) - Width 2.5 2.3 2.1 -Post Debridement (cm) - Depth 0.1 0.2 0.1 -Total Square (Post) (cm) 6.25 4.60 3.36 -Area of Debridement (cm) - Length 2.5 2.0 1.6 -Area of Debridement (cm) - Width 2.5 2.3 2.1 -Total Square (Area) (cm) 6.25 4.60 3.36 -Tunneling No No No -Undermining/Tunneling No No No -Circular Undermining No No No -Wound/Ulcer Outcome Not Healed Not Healed Not Healed -Ulcer Cleansing Rinsed/ Rinsed/ Rinsed/ Irrigated with Irrigated with Irrigated with Saline Saline Saline -Foul Odor after Cleansing No No No -Bioengineered Tissue Yes No Yes -Type of Bioengineered Tissue Epifix Mesh Epifix -Expiration Date 06/19/28 08/19/28 -Product Lot Number [id number] -Percent Used 100 100 -Bleeding Controlled with Pressure Pressure Pressure -Treatment Response Procedure Procedure Procedure Tolerated Well Tolerated Well Tolerated Well -Debridement - Subq, 1st 20sq cm No Yes No -Apply Skin Sub - 1st 25 sq cm - Legs 1 1 -Epifix (per sq cm) 4 -Epifix Mesh (per sq cm) 11 Pain Scale: 0-10 Numeric Is Patient Pain Free? Yes Yes Yes WC - Nurse 3 - General Ulcer D/C NN Start: 10/20/23 07:58 Freq: Status: Active Protocol: Activity Type Activity Date Activity User E-sign Co-sign Detail Recorded Client Recorded Date Recorded By Document 10/20/23 08:01 [facility] Desktop 10/20/23 08:03 [facility] Edit Result 10/20/23 08:01 BMF (1) [id number] 10/21/23 07:17 PL Document 10/22/23 11:32 KW Desktop 10/22/23 11:33 KW Document 10/26/23 07:38 PL [id number] 10/27/23 07:38 PL Document 10/29/23 09:53 KW Desktop 10/29/23 09:54 KW Document 11/05/23 09:18 KW Desktop 11/05/23 09:20 KW Document 11/05/23 09:40 KW Desktop 11/05/23 09:45 KW (1) Left - Multi-Layered Wrap Application => Multi-Layer Comp - => Left ($) 10/20/23 10/22/23 10/26/23 08:01 11:32 07:38 Wound Care Center Nurse 3 #1 L Med Ankle -Ulcer Cleansing -Foul Odor after Cleansing -Primary Dressing Applied Optilok 6.5x10 Optilok 6.5x10 -Other Dressing -Primary Dressing Covered/Secured with Dry Gauze & Dry Gauze & Roll Gauze, Roll Gauze, Secured with Secured with Tape Tape -Optilok 6.5x10 2 2 Left -Multi-Layered Wrap Application Multi-Layer Multi-Layer Multi-Layer Comp - Left ($) Comp - Left ($) Comp - Left ($) -Tubular Bandage -Size of Tubigrip Used -Size D ($) Treatment Response Pain Scale: 0-10 Numeric Is Patient Pain Free? Yes Yes Yes WC - Visit Discharge Discharge Condition Stable Ambulatory Status Ambulatory Transportation Private Auto Medication Reconcilliation completed & No provided to patient/care provider Clinical Summary of Care Provided Yes 10/29/23 11/05/23 11/05/23 09:53 09:18 09:40 Wound Care Center Nurse 3 #1 L Med Ankle -Ulcer Cleansing Rinsed/ Rinsed/ Irrigated with Irrigated with Saline Saline -Foul Odor after Cleansing No -Primary Dressing Applied Hysept ($) Hysept ($) -Other Dressing abd, kerlix -Primary Dressing Covered/Secured with Dry Gauze & Dry Gauze & Dry Gauze & Roll Gauze, Roll Gauze, Roll Gauze, Secured with Secured with Secured with Tape Tape Tape -Optilok 6.5x10 Left -Multi-Layered Wrap Application -Tubular Bandage Single Layer Double Layer -Size of Tubigrip Used Size D Size D -Size D ($) 1 2 Treatment Response Procedure Tolerated Well Pain Scale: 0-10 Numeric Is Patient Pain Free? Yes Yes Yes WC - Visit Discharge Discharge Condition Stable Stable Stable Ambulatory Status Ambulatory Ambulatory Ambulatory Transportation Private Auto Private Auto Private Auto Medication Reconcilliation completed & No No provided to patient/care provider Clinical Summary of Care Provided Yes Yes Assessment/Plan Assessment/Plan (1) Delayed wound healing: CODE(S): T14.8XXD - Other injury of unspecified body region, subsequent encounter (2) Non-pressure chronic ulcer of left ankle with necrosis of muscle: CODE(S): L97.323 - Non-pressure chronic ulcer of left ankle with necrosis of muscle (3) Venous insufficiency (chronic) (peripheral): CODE(S): I87.2 - Venous insufficiency (chronic) (peripheral) (4) Obesity: CODE(S): E66.9 - Obesity, unspecified (5) Iron deficiency anemia: CODE(S): D50.9 - Iron deficiency anemia, unspecified PLAN: Plan Patient seen and evaluated Left lower extremity: There is ulceration noted to the medial aspect of the left lower extremity/ankle with healthy granular tissue with some serosanguineous drainage. Ulceration is noted to be overlying the neurovascular bundle. Negative Stemmer sign left foot. There is evidence of stasis dermatitis with hyperpigmentation/hemosiderin staining of the left lower extremity. Ulceration underwent debridement as noted in the clinical panel above. Ulceration measures 1.7 cm x 1.5 cm x 0.1 cm. No signs of infection. Skin maceration resolved with less drainage and wound is granulating in well. EpiFix graft #8 applied to wound bed today. Site dressed with Adaptic touch, Steri-Strips, and dry sterile dressing. 3M compression wrap applied to lower extremity. He was instructed to not get the dressing wet. Ulceration continues to demonstrate reduction in size versus previous visits. Overall tissue continues improvement with less drainage. Discussed if he soaks through dressing to call and return for new dressing/compression wrap application. He had another bout of increased drainage with some localized rubor secondary to macerated tissue. Patient was not elevating legs and increasing work shifts over the weekend of greater than 12 hours at a time on his feet. Discussion was had with him that he must continue elevating legs and limit time on feet to aid in wound healing. Cultures were obtained 10/22/2023 and positive wound and urine culture with PsA. Also has PsA in urine. Wound does demonstrate reduction in size however due to previous drainage he was started on oral antibiotic. Rx Augmentin 875 mg twice daily x 14 days. Stop date 11/05/2023. He is following with infectious disease and will continue to receive outpatient IV antibiotic infusions of Zosyn for 6 weeks. I discussed continued elevation of the lower extremity at all times of rest to aid in edema control. I discussed once ulceration is healed he is to return to a prescription based compression stocking. Discussed updating stockings every 6 to 9 months to ensure proper uniform compression to treat his chronic venous insufficiency and to reduce recidivism of wound. LEAS performed 09/02/23 demonstrates right RONEN 1.31, normal. TBI and Doppler/PVR waveforms of right leg normal at rest; left RONEN 1.38, normal. TBI and Doppler/PVR waveforms of the left leg normal at rest. Venous studies performed 09/02/2023 demonstrates no evidence of bilateral lower extremity DVT. Bilateral great saphenous veins appear patent and compressible segmentally. Positive for reflux right popliteal vein, great saphenous vein in. Positive for reflux left popliteal vein, saphenofemoral junction. Discussed importance of serial debridement to aid in wound healing. He was approved for application of EpiFix advanced wound product, we will continue applications. Discussed proper diet to increase protein intake to aid in wound healing. Recommended Vladimir supplementation. Discussed reducing foods with salty content to aid in edema control. Discussed avoidance of prolonged standing or legs dangling over side of chair/bed. Discussed with patient the depth of the ulcerative site and close proximity to the neurovascular bundle. Discussed with him signs and symptoms of infection. Discussed if he notices redness about the ulcerative site moving up the leg, purulent drainage from the wound site, foul increasing odor from the wound, or if he experiences fever greater than 101 degree, nausea, vomiting, chills/rigor, that these are signs of progressing infection and he should report to the ED to receive IV antibiotics. Patient and voiced understanding of this. The following work up and care recommendations were made: Dressing: EpiFix, Adaptic touch, Steri-Strips, Suprasorb, 3M compression wrap left lower extremity. Wash: Do not get wet Tissue growth optimization: EpiFix Offload: To ensure no pressure to the medial ankle/hindfoot Vascular: DP and PT pulses palpable with adequate capillary fill to digits. Edema: Discussed elevation of lower extremities at times of rest. 3M compression wrap placed. Infection: No signs of infection. Rx: Augmentin 875mg BID x 14 days, stop date 11/05/23. He was instructed to take oral antibiotic to completion. Will continue following infectious disease for IV antibiotic outpatient at [facility] center for treatment of UTI Pain: May take Tylenol extra strength for discomfort Host factors: Chronic venous insufficiency I answered all the patient's questions. To return to the wound healing center in 1 week or call sooner if the patient has any questions or concerns.
[2023-11-17 09:19] VITALS: BP 146/94; PULSE 74; RESP 20; TEMP 36.1; BMI 28.8
--- NOTE | 2023-11-17 10:04 | PN.PCM_ITS ---
History of Present Illness Date of Service: 11/17/23 Chief Complaint: Left medial ankle wound History of Wound: 78-year-old male presents for follow-up on right lateral ankle wound. Presents today due to new blister formation to anterior lateral ankle. typically a patient of Dr. Burns's but presented earlier due to concern for blister. No other complaints today. Objective Data Objective Data Vital Signs: Vital Signs Temp Pulse Resp BP O2 Del Method 97 F L 74 20 H 146/94 H Room Air 11/17/23 09:19 11/17/23 09:19 11/17/23 09:19 11/17/23 09:19 11/12/23 09:08 Oxygen Delivery Method Room Air Weight: 99.159 kg Body Mass Index (BMI) 28.8 Lab / Micro Data Micro: Microbiology 10/22/23 11:20 Wound - Ankle Gram Stain - Final 10/22/23 11:20 Wound - Ankle Wound Culture - Final Pseudomonas aeruginosa 10/22/23 11:20 Wound - Ankle Anaerobic Culture - Final No anaerobic bacteria isolated. Physical Exam Narrative Venous insufficiency noted as patient has varicosities bilaterally with pitting edema. Patient has intact pedal pulses bilaterally. There is intact overlying Adaptic Steri-Strips and EpiFix graft to lateral ankle. And to anteromedial left ankle there is noted to be a tense bullous measuring approximately 1.5 x 1.5 cm. No obvious acute signs of infection. Upon lysing there is noted to be clear serous drainage. No signs DVT bilaterally. Debridement Note Debridement Note Post-Debridement Measurements and Additional Note: Post-Debridement Measurements/Treatment WC - Nurse 1 - General Ulcer Assessment Start: 10/20/23 07:58 Freq: Status: Active Protocol: LA NENA.JESUS Activity Type Activity Date Activity User E-sign Co-sign Detail Recorded Client Recorded Date Recorded By Document 10/20/23 07:58 BMF Desktop 10/20/23 08:00 BMF Document 10/22/23 10:55 JF Laptop 10/22/23 11:00 JF Document 10/26/23 08:20 KW Desktop 10/26/23 08:28 KW Document 10/29/23 09:40 JF [id number] 10/29/23 09:41 JF Document 11/05/23 09:06 KW Desktop 11/05/23 09:12 KW Document 11/12/23 09:08 KW Desktop 11/12/23 09:17 KW Document 11/17/23 09:19 DL Desktop 11/17/23 09:26 DL 10/20/23 10/22/23 10/26/23 07:58 10:55 08:20 WC - Today's Visit Information Type of service Nurse-only Follow-up Visit Nurse-only Visit (Physician/CERTIFIED MEDICATION TECHNICIAN Visit ) Arrival Mode Ambulatory Ambulatory Ambulatory Transfer Assistance None Accompanied by Patient Identification Verified (Name & Yes Yes Yes ) Patient Requires Transmission-Based No Precautions Height and Weight Body Mass Index (BMI) 28.8 28.8 28.8 BMI Classification Overweight Overweight Overweight Vital Signs Temperature (97.8 F-99.1 F) 98.1 F 96.0 F L 96.8 F L Temperature Source Temporal Temporal Temporal Pulse Rate (60-100) 72 101 H 63 Pulse Location Monitor Monitor Monitor Respiratory Rate (12-18) 18 18 20 H Respiratory rate source Observation Observation Observation Oxygen Delivery Method Room Air Room Air Blood Pressure (90/60-120/80) 164/59 H 110/81 H 135/55 H Blood Pressure Mean (mm Hg) 94 90 81 Source Monitor Monitor Monitor Position Semi-Fowlers Semi-Fowlers Blood Pressure Location Left Arm Left Arm History Since Last Visit- (Skip if this is Patient's initial visit) Have you changed medications since your No No last visit? Any new allergies or adverse reactions No No No Had a fall/change in ADL's that may No No No increase risk of falls Signs or symptoms of abuse and/or No No No neglect since last visit Have you been in the hospital since your No No No last visit? Has dressing in place as prescribed Yes Yes Yes Has compression in place as prescribed Yes Yes Yes Has offloadiing in place as prescribed No No N/A Experienced any changes in pain level or No No No management Left Footwear Regular Shoe Regular Shoe Right Footwear Regular Shoe Regular Shoe Pain Scale: 0-10 Numeric Is Patient Pain Free? Yes Yes Yes 10/29/23 11/05/23 11/12/23 09:40 09:06 09:08 WC - Today's Visit Information Type of service Follow-up Visit Follow-up Visit Follow-up Visit (Physician/CERTIFIED MEDICATION TECHNICIAN (Physician/CERTIFIED MEDICATION TECHNICIAN (Physician/CERTIFIED MEDICATION TECHNICIAN ) ) ) Arrival Mode Ambulatory Ambulatory Ambulatory Transfer Assistance Accompanied by Patient Identification Verified (Name & Yes Yes Yes ) Patient Requires Transmission-Based No Precautions Height and Weight Body Mass Index (BMI) 28.8 28.8 28.8 BMI Classification Overweight Overweight Overweight Vital Signs Temperature (97.8 F-99.1 F) 96.1 F L 95.5 F L Temperature Source Temporal Temporal Pulse Rate (60-100) 72 70 68 Pulse Location Monitor Monitor Monitor Respiratory Rate (12-18) 16 18 18 Respiratory rate source Observation Observation Observation Oxygen Delivery Method Room Air Room Air Blood Pressure (90/60-120/80) 130/90 H 150/78 H 128/76 H Blood Pressure Mean (mm Hg) 103 102 93 Source Monitor Monitor Monitor Position Semi-Fowlers Semi-Fowlers Sitting Blood Pressure Location Left Arm Left Arm Right Arm History Since Last Visit- (Skip if this is Patient's initial visit) Have you changed medications since your No No No last visit? Any new allergies or adverse reactions No No No Had a fall/change in ADL's that may No No No increase risk of falls Signs or symptoms of abuse and/or No No No neglect since last visit Have you been in the hospital since your No No No last visit? Has dressing in place as prescribed Yes Yes Yes Has compression in place as prescribed Yes Yes Yes Has offloadiing in place as prescribed N/A N/A N/A Experienced any changes in pain level or No No No management Left Footwear Regular Shoe Regular Shoe Regular Shoe Right Footwear Regular Shoe Regular Shoe Regular Shoe Pain Scale: 0-10 Numeric Is Patient Pain Free? Yes Yes Yes 11/17/23 09:19 WC - Today's Visit Information Type of service Follow-up Visit (Physician/CERTIFIED MEDICATION TECHNICIAN ) Arrival Mode Ambulatory Transfer Assistance None Accompanied by Patient Identification Verified (Name & Yes ) Patient Requires Transmission-Based No Precautions Height and Weight Body Mass Index (BMI) 28.8 BMI Classification Overweight Vital Signs Temperature (97.8 F-99.1 F) 97 F L Temperature Source Temporal Pulse Rate (60-100) 74 Pulse Location Monitor Respiratory Rate (12-18) 20 H Respiratory rate source Observation Oxygen Delivery Method Blood Pressure (90/60-120/80) 146/94 H Blood Pressure Mean (mm Hg) 111 Source Monitor Position Blood Pressure Location History Since Last Visit- (Skip if this is Patient's initial visit) Have you changed medications since your No last visit? Any new allergies or adverse reactions No Had a fall/change in ADL's that may No increase risk of falls Signs or symptoms of abuse and/or No neglect since last visit Have you been in the hospital since your No last visit? Has dressing in place as prescribed Yes Has compression in place as prescribed Yes Has offloadiing in place as prescribed Yes Experienced any changes in pain level or No management Left Footwear Right Footwear Pain Scale: 0-10 Numeric Is Patient Pain Free? Yes WC - Nurse 1 - General Ulcer Measurement Start: 10/20/23 07:58 Freq: Status: Active Protocol: Activity Type Activity Date Activity User E-sign Co-sign Detail Recorded Client Recorded Date Recorded By Document 10/20/23 08:00 BMF Desktop 10/20/23 08:01 BM Document 10/22/23 10:55 JF Laptop 10/22/23 11:00 JF Document 10/26/23 08:20 KW Desktop 10/26/23 08:28 KW Document 10/29/23 09:40 JF [id number] 10/29/23 09:41 JF Document 11/05/23 09:06 KW Desktop 11/05/23 09:12 KW Document 11/12/23 09:08 KW Desktop 11/12/23 09:17 KW Document 11/17/23 09:19 DL Desktop 11/17/23 09:26 DL 10/20/23 10/22/23 10/26/23 08:00 10:55 08:20 Wound Center Nurse 1 #1 L Med Ankle -Combined with other wound -Current Size (cm) - Length 2.3 -Current Size (cm) - Width 2.8 -Current Size (cm) - Depth 0.1 -Total Square Cm 6.44 -Date of Last Picture (Recall this field) -Photo Taken -Epithelialization -Tunneling -Undermining/Tunneling -Circular Undermining -Exudate Amt Medium Small -Exudate Type Serosanguineous Serosanguineous -Wound Margin Distinct, Outline Attached -Granulation Amt Large (67-100%) -Granulation Quality Red -Slough/Fibrin -Necrosis Amt -Necrotic Tissue Type -Structure Exposed -Texture (Megan-wound Skin Appearance) Assessed -Moisture (Megan-wound Skin Appearance) Assessed Dry/Scaly -Color (Megan-wound Skin Appearance) Assessed Hemosiderin Staining -Temperature (Megan-wound Skin No Abnormality No Abnormality Appearance) (Pt Warm) (Pt Warm) -Tenderness on Palpation (Megan-wound No Skin Appearance) -Ulcer Cleansing Soap and Water Soap and Water -Foul Odor after Cleansing No -Anesthetic Used 5% Lidocaine Gel -Wound Comment(s) Epimesh intact. Pt remains on ATB as ordered. Voices no complaints. Lower Limb Edema Present Right Calf (cm) 38.2 Right Ankle (cm) 23.6 Left Calf (cm) 32.7 39 Left Ankle (cm) 22.6 21.5 10/29/23 11/05/23 11/12/23 09:40 09:06 09:08 Wound Center Nurse 1 #1 L Med Ankle -Combined with other wound No -Current Size (cm) - Length 2.0 1.5 1.5 -Current Size (cm) - Width 2.6 2.0 1.9 -Current Size (cm) - Depth 0.1 0.1 0.1 -Total Square Cm 5.20 3.00 2.85 -Date of Last Picture (Recall this 11/05/23 field) -Photo Taken No Yes -Epithelialization Small 1-33% -Tunneling No -Undermining/Tunneling No -Circular Undermining No -Exudate Amt Large Small Medium -Exudate Type Yellow/Green Serosanguineous Serosanguineous -Wound Margin Flat & Intact Distinct, Distinct, Outline Outline Attached Attached -Granulation Amt Large (67-100%) Medium (34-66%) Large (67-100%) -Granulation Quality Red Red Red -Slough/Fibrin Yes -Necrosis Amt Small (1-33%) Small (1-33%) Small (1-33%) -Necrotic Tissue Type Adherent Slough Adherent Slough Adherent Slough -Structure Exposed N/A -Texture (Megan-wound Skin Appearance) Assessed, Assessed Assessed Excoriation, Localized Edema -Moisture (Megan-wound Skin Appearance) Assessed,Dry/ Assessed Assessed,Dry/ Scaly Scaly -Color (Megan-wound Skin Appearance) Assessed Assessed Assessed -Temperature (Megan-wound Skin No Abnormality No Abnormality No Abnormality Appearance) (Pt Warm) (Pt Warm) (Pt Warm) -Tenderness on Palpation (Megan-wound No Skin Appearance) -Ulcer Cleansing Wound Cleanser Soap and Water Soap and Water -Foul Odor after Cleansing No No No -Anesthetic Used 5% Lidocaine 5% Lidocaine 5% Lidocaine Gel Gel Gel -Wound Comment(s) Lower Limb Edema Present Yes Right Calf (cm) Right Ankle (cm) Left Calf (cm) 36.8 40.5 36.5 Left Ankle (cm) 23.0 25 25 11/17/23 09:19 Wound Center Nurse 1 #1 L Med Ankle -Combined with other wound -Current Size (cm) - Length 0.1 -Current Size (cm) - Width 0.1 -Current Size (cm) - Depth 0.1 -Total Square Cm 0.01 -Date of Last Picture (Recall this field) -Photo Taken -Epithelialization -Tunneling -Undermining/Tunneling -Circular Undermining -Exudate Amt Small -Exudate Type Serosanguineous -Wound Margin Distinct, Outline Attached -Granulation Amt -Granulation Quality -Slough/Fibrin -Necrosis Amt -Necrotic Tissue Type -Structure Exposed N/A -Texture (Megan-wound Skin Appearance) Scarring -Moisture (Megan-wound Skin Appearance) Dry/Scaly -Color (Megan-wound Skin Appearance) No Abnormality -Temperature (Megan-wound Skin No Abnormality Appearance) (Pt Warm) -Tenderness on Palpation (Megan-wound No Skin Appearance) -Ulcer Cleansing Soap and Water -Foul Odor after Cleansing No -Anesthetic Used -Wound Comment(s) Epi fix intact. not removed. Lower Limb Edema Present Right Calf (cm) Right Ankle (cm) Left Calf (cm) 39 Left Ankle (cm) 24.5 WC - Nurse 2 - General Ulcer CM Notes Start: 10/20/23 07:58 Freq: Status: Active Protocol: Activity Type Activity Date Activity User E-sign Co-sign Detail Recorded Client Recorded Date Recorded By Document 10/22/23 12:24 PL [id number] 10/22/23 12:26 PL Document 10/29/23 12:03 PL [id number] 10/29/23 12:04 PL Document 11/05/23 10:22 PL Tablet 11/05/23 10:25 PL Document 11/12/23 09:34 PL Tablet 11/12/23 09:36 PL Document 11/17/23 09:37 Laptop 11/17/23 09:38 JF 10/22/23 10/29/23 11/05/23 12:24 12:03 10:22 Wound Center Nurse 2 #1 L Med Ankle -Time 11:13 09:37 09:30 -Correct Patient Yes Yes Yes -Correct Side, Site, Position Yes Yes Yes -Correct Procedure Yes Yes Yes -Procedure Performed Yes Yes Yes -Type of Procedure Debridement Debridement Debridement -Clinical Debridement Subcutaneous Subcutaneous Subcutaneous -Tissue Removed Subcutaneous Subcutaneous Subcutaneous -Post Debridement (cm) - Length 2.5 2.0 1.6 -Post Debridement (cm) - Width 2.5 2.3 2.1 -Post Debridement (cm) - Depth 0.1 0.2 0.1 -Total Square (Post) (cm) 6.25 4.60 3.36 -Area of Debridement (cm) - Length 2.5 2.0 1.6 -Area of Debridement (cm) - Width 2.5 2.3 2.1 -Total Square (Area) (cm) 6.25 4.60 3.36 -Tunneling No No No -Undermining/Tunneling No No No -Circular Undermining No No No -Wound/Ulcer Outcome Not Healed Not Healed Not Healed -Ulcer Cleansing Rinsed/ Rinsed/ Rinsed/ Irrigated with Irrigated with Irrigated with Saline Saline Saline -Foul Odor after Cleansing No No No -Bioengineered Tissue Yes No Yes -Type of Bioengineered Tissue -Type of Bioengineered Tissue Epifix Mesh Epifix -Expiration Date 06/19/28 08/19/28 -Product Lot Number [id number] -Percent Used 100 100 -Bleeding Controlled with Pressure Pressure Pressure -Treatment Response Procedure Procedure Procedure Tolerated Well Tolerated Well Tolerated Well -Debridement - Subq, 1st 20sq cm No Yes No -Apply Skin Sub - 1st 25 sq cm - Legs 1 1 -Epifix (per sq cm) 4 -Epifix 18mm Disc -Epifix Mesh (per sq cm) 11 Pain Scale: 0-10 Numeric Is Patient Pain Free? Yes Yes Yes 11/12/23 11/17/23 09:34 09:37 Wound Center Nurse 2 #1 L Med Ankle -Time 09:20 -Correct Patient Yes No -Correct Side, Site, Position Yes No -Correct Procedure Yes No -Procedure Performed Yes No -Type of Procedure Debridement -Clinical Debridement Subcutaneous -Tissue Removed Subcutaneous -Post Debridement (cm) - Length 1.7 -Post Debridement (cm) - Width 1.5 -Post Debridement (cm) - Depth 0.1 -Total Square (Post) (cm) 2.55 -Area of Debridement (cm) - Length 1.7 -Area of Debridement (cm) - Width 1.5 -Total Square (Area) (cm) 2.55 -Tunneling No -Undermining/Tunneling No -Circular Undermining No -Wound/Ulcer Outcome Not Healed Not Healed -Ulcer Cleansing Rinsed/ Irrigated with Saline -Foul Odor after Cleansing No -Bioengineered Tissue Yes -Type of Bioengineered Tissue Epifix 18mm Disc -Type of Bioengineered Tissue -Expiration Date 06/19/28 -Product Lot Number [id number] -Percent Used 100 -Bleeding Controlled with Pressure -Treatment Response Procedure Tolerated Well -Debridement - Subq, 1st 20sq cm No No -Apply Skin Sub - 1st 25 sq cm - Legs 1 -Epifix (per sq cm) -Epifix 18mm Disc 3 -Epifix Mesh (per sq cm) Pain Scale: 0-10 Numeric Is Patient Pain Free? Yes Yes WC - Nurse 3 - General Ulcer D/C NN Start: 10/20/23 07:58 Freq: Status: Active Protocol: Activity Type Activity Date Activity User E-sign Co-sign Detail Recorded Client Recorded Date Recorded By Document 10/20/23 08:01 BMF Desktop 10/20/23 08:03 BMF Edit Result 10/20/23 08:01 BMF (1) [id number] 10/21/23 07:17 PL Document 10/22/23 11:32 KW Desktop 10/22/23 11:33 KW Document 10/26/23 07:38 PL [id number] 10/27/23 07:38 PL Document 10/29/23 09:53 KW Desktop 10/29/23 09:54 KW Document 11/05/23 09:18 KW Desktop 11/05/23 09:20 KW Document 11/05/23 09:40 KW Desktop 11/05/23 09:45 KW Document 11/12/23 09:33 KW Desktop 11/12/23 09:34 KW Document 11/17/23 09:54 DL Desktop 11/17/23 09:56 DL (1) Left - Multi-Layered Wrap Application => Multi-Layer Comp - => Left ($) 10/20/23 10/22/23 10/26/23 08:01 11:32 07:38 Wound Care Center Nurse 3 #1 L Med Ankle -Ulcer Cleansing -Foul Odor after Cleansing -Primary Dressing Applied Optilok 6.5x10 Optilok 6.5x10 -Other Dressing -Primary Dressing Covered/Secured with Dry Gauze & Dry Gauze & Roll Gauze, Roll Gauze, Secured with Secured with Tape Tape -Optilok 6.5x10 2 2 Left -Multi-Layered Wrap Application Multi-Layer Multi-Layer Multi-Layer Comp - Left ($) Comp - Left ($) Comp - Left ($) -Tubular Bandage -Size of Tubigrip Used -Size D ($) -Size E ($) Treatment Response Pain Scale: 0-10 Numeric Is Patient Pain Free? Yes Yes Yes WC - Visit Discharge Discharge Condition Stable Ambulatory Status Ambulatory Transportation Private Auto Medication Reconcilliation completed & No provided to patient/care provider Clinical Summary of Care Provided Yes Notes: 10/29/23 11/05/23 11/05/23 09:53 09:18 09:40 Wound Care Center Nurse 3 #1 L Med Ankle -Ulcer Cleansing Rinsed/ Rinsed/ Irrigated with Irrigated with Saline Saline -Foul Odor after Cleansing No -Primary Dressing Applied Hysept ($) Hysept ($) -Other Dressing abd, kerlix -Primary Dressing Covered/Secured with Dry Gauze & Dry Gauze & Dry Gauze & Roll Gauze, Roll Gauze, Roll Gauze, Secured with Secured with Secured with Tape Tape Tape -Optilok 6.5x10 Left -Multi-Layered Wrap Application -Tubular Bandage Single Layer Double Layer -Size of Tubigrip Used Size D Size D -Size D ($) 1 2 -Size E ($) Treatment Response Procedure Tolerated Well Pain Scale: 0-10 Numeric Is Patient Pain Free? Yes Yes Yes WC - Visit Discharge Discharge Condition Stable Stable Stable Ambulatory Status Ambulatory Ambulatory Ambulatory Transportation Private Auto Private Auto Private Auto Medication Reconcilliation completed & No No provided to patient/care provider Clinical Summary of Care Provided Yes Yes Notes: 11/12/23 11/17/23 09:33 09:54 Wound Care Center Nurse 3 #1 L Med Ankle -Ulcer Cleansing Soap and Water -Foul Odor after Cleansing No -Primary Dressing Applied -Other Dressing -Primary Dressing Covered/Secured with Dry Gauze & Dry Gauze & Roll Gauze, Roll Gauze, Secured with Secured with Tape Tape -Optilok 6.5x10 Left -Multi-Layered Wrap Application Multi-Layer Comp - Left ($) -Tubular Bandage Double Layer -Size of Tubigrip Used Size E -Size D ($) -Size E ($) 2 Treatment Response Procedure Tolerated Well Pain Scale: 0-10 Numeric Is Patient Pain Free? Yes Yes WC - Visit Discharge Discharge Condition Stable Stable Ambulatory Status Ambulatory Ambulatory Transportation Private Auto Private Auto Medication Reconcilliation completed & No provided to patient/care provider Clinical Summary of Care Provided Yes Notes: Epi left intact . Adaptic to blistered area. 3M applied. F/ U with Dr Burns as scheduled. Assessment/Plan Assessment/Plan (1) Venous insufficiency (chronic) (peripheral): CODE(S): I87.2 - Venous insufficiency (chronic) (peripheral) PLAN: Exam performed. Using aseptic technique bolus to anterior medial ankle was lysed using a focal incision with a 15 blade. Serous drainage was noted. Site was dressed with Adaptic overlying alginate. Additionally a dry sterile dressing was applied as well as a multilayer compression wrap. Patient will follow-up with Dr. Burns on . Patient is receiving IV antibiotics per infectious disease for Pseudomonas infection to the left medial ankle. (2) Non-pressure chronic ulcer of left ankle with necrosis of muscle: CODE(S): L97.323 - Non-pressure chronic ulcer of left ankle with necrosis of muscle
== END 2023-11-18 23:59 | disposition home or self-care (01) ==
LOC: WC 09:15
PROVIDERS: PCP Family Medicine; Referring Provider Family Medicine; Visit Provider Student in an Organized Health Care Education/Training Program
DX: L97.323 Non-pressure chronic ulcer of left ankle with necrosis of muscle (principal); I87.2 Venous insufficiency (chronic) (peripheral); T14.8XXD Other injury of unspecified body region, subsequent encounter; E66.9 Obesity, unspecified; D50.9 Iron deficiency anemia, unspecified; Z86.718 Personal history of other venous thrombosis and embolism; Z68.28 Body mass index [BMI] 28.0-28.9, adult
CPT/HCPCS: 11042; 15271; 29581; 87070; 87075; 87077; 87186; 87205; 99211; 99213; Q4186; G0463

== ENCOUNTER 2023-11-19 12:04 | Outpatient (RCR) | payer MEDICARE, OTHER, SELFPAY ==
[2023-11-19 12:18] LABS: Hematocrit 35.6 % (40-54); Hemoglobin 11.4 g/dL (13.0-16.5); Mean Corpuscular Hgb 30.7 pg (27.0-32.0); Mean Platelet Vol. 10.9 fl (6.2-12.0); Platelet Count 169 K/mm3 (150-450); RBC Distribution Width CV 14.4 % (11.6-14.6); RBC Distribution Width SD 50.2 fl (35.1-43.9); Red Blood Count 3.71 M/mm3 (4.6-6.2); White Blood Count 2.7 K/mm3 (4.4-11.0)
[2023-11-19 12:43] LABS: Anion Gap 4 (5-15); BUN 11 mg/dL (7-18); BUN/Creat Ratio 15.6 RATIO (10-20); Calcium,Total 8.9 mg/dL (8.5-10.1); Chloride 111 mmol/L (98-107); EST Glomerular Filtration Rate 115 mL/min (>60); Est Glom Filt Rate - Afr Amer 140 mL/min (>60); Glucose 85 mg/dL (74-106); Potassium 3.7 mmol/L (3.5-5.1); Sodium Level 139 mmol/L (136-145)
== END 2023-12-17 18:00 | disposition home or self-care (01) ==
LOC: HHLAB 12:04
PROVIDERS: PCP Family Medicine; Referring Provider Internal Medicine Infectious Disease; Visit Provider Internal Medicine Infectious Disease
DX: N39.0 Urinary tract infection, site not specified (principal); B96.5 Pseudomonas (aeruginosa) (mallei) (pseudomallei) as the cause of diseases classified elsewhere; R31.9 Hematuria, unspecified; Z45.2 Encounter for adjustment and management of vascular access device
CPT/HCPCS: 80048; 85027

== ENCOUNTER 2023-12-17 09:30 | Outpatient (RCR) | payer MEDICARE, OTHER, SELFPAY ==
[2023-11-19 00:29] VITALS: BP 146/94; PULSE 74; RESP 20; TEMP 36.1; BMI 28.8
[2023-11-19 09:33] VITALS: BP 164/97; PULSE 67; RESP 18; BMI 28.8
--- NOTE | 2023-11-19 10:34 | PCM.WC.PN ---
History of Present Illness Date of Service: 11/19/23 Chief Complaint: Left medial ankle wound History of Wound: 78-year-old male presents for follow-up on right lateral ankle wound. Presents today due to new blister formation to anterior lateral ankle. typically a patient of Dr. Burns's but presented earlier due to concern for blister. No other complaints today. 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 He has left grafting product in place and is keeping compression dressing dry. He is continuing his infusions of IV Zosyn and will complete 6-week course per infectious disease. He states that he was concerned over a blister on the anterior ankle and did present to the wound care center earlier to be seen by Dr. Palma. Denies constitutional symptoms. Denies further complaints. Objective Data Objective Data Vital Signs: Vital Signs Temp Pulse Resp BP O2 Del Method 97 F L 67 18 164/97 H Room Air 11/19/23 00:29 11/19/23 09:33 11/19/23 09:33 11/19/23 09:33 11/19/23 09:33 Oxygen Delivery Method Room Air Weight: 99.159 kg Body Mass Index (BMI) 28.8 Physical Exam Const alert, oriented x3 and no apparent distress General Appearance: cooperative HEENT normocephalic Eyes Eyes Narrative: Wears glasses General Eye: normal appearance of both eyes Neck General: normal visual inspection Lymph Lymphatic: no lymphadenopathy noted and no lymphedema noted Resp normal respiratory effort Cardio regular rate and regular rhythm Extremity normal capillary refill, no joint enlargement, no calf tenderness and no pedal edema Extremity Narrative: Vascular: DP and PT pulses weakly palpable. Capillary fill time to the digits is 5 seconds. Normal temperature gradient. There is absent hair growth to the digits noted. Dermatological: There is ulceration noted to the medial aspect of the left lower extremity/ankle with healthy granular layer and serosanguineous drainage. Ulceration is noted to be overlying the neurovascular bundle. Negative Stemmer sign left foot. There is evidence of stasis dermatitis with hyperpigmentation/hemosiderin staining of the left lower extremity. Musculoskeletal: Muscle strength 5 of 5 age-appropriate. Skin no rashes or lesions noted, skin turgor normal and no jaundice Neuro moves all extremities Debridement Note Debridement Note Wound debrided: Left medial ankle Laterality: Left Wound Grade/Stage: Cisneros stage II Type of Debridement: Excisional debridement Anesthesia Used: 5% Lidocaine Gel Depth: Down to and including healthy tissue and in the subcutaneous layer Percentage of wound debrided: 100 Instrument Used: 5mm curette Tissue Removed: Fibrous, devitalized subcutaneous, biofilm, slough Severity: Fat Layer Exposed Amount of bleeding with debridement: Mild Bleeding Controlled with: Compression and gauze Patient tolerated procedure: Patient tolerated procedure well Post-Debridement Measurements and Additional Note: Post-Debridement Measurements/Treatment - Nurse 1 - General Ulcer Assessment Start: 11/19/23 09:31 Freq: Status: Active Protocol: ANAYA Activity Type Activity Date Activity User E-sign Co-sign Detail Recorded Client Recorded Date Recorded By Document 11/19/23 09:33 KW Desktop 11/19/23 09:44 KW 11/19/23 09:33 WC - Today's Visit Information Type of service 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 Any new allergies or adverse reactions No Had a fall/change in ADL's that may No increase risk of falls Signs or symptoms of abuse and/or No neglect since last visit Have you been in the hospital since your No last visit? Has dressing in place as prescribed Yes Has compression in place as prescribed Yes Has offloadiing in place as prescribed N/A Experienced any changes in pain level or No management Left Footwear Regular Shoe Right Footwear Regular Shoe Pain Scale: 0-10 Numeric Is Patient Pain Free? Yes - Nurse 1 - General Ulcer Measurement Start: 11/19/23 09:31 Freq: Status: Active Protocol: Activity Type Activity Date Activity User E-sign Co-sign Detail Recorded Client Recorded Date Recorded By Document 02/01/24 09:33 KW Desktop 11/19/23 09:44 KW 11/19/23 09:33 Wound Center Nurse 1 #1 L Med Ankle -Current Size (cm) - Length 1.5 -Current Size (cm) - Width 1.5 -Current Size (cm) - Depth 0.1 -Total Square Cm 2.25 -Exudate Amt Medium -Exudate Type Serosanguineous -Wound Margin Distinct, Outline Attached -Ulcer Cleansing Soap and Water -Anesthetic Used 5% Lidocaine Gel Right Calf (cm) 36.5 Right Ankle (cm) 24.5 - Nurse 3 - General Ulcer D/C NN Start: 11/19/23 09:31 Freq: Status: Active Protocol: Activity Type Activity Date Activity User E-sign Co-sign Detail Recorded Client Recorded Date Recorded By Document 11/19/23 10:07 KW Desktop 11/19/23 10:07 KW 11/19/23 10:07 Wound Care Center Nurse 3 #1 L Med Ankle -Primary Dressing Applied Optilok 6.5x10 -Primary Dressing Covered/Secured with Dry Gauze & Roll Gauze, Secured with Tape -Optilok 6.5x10 1 Left -Multi-Layered Wrap Application Multi-Layer Comp - Left ($) Pain Scale: 0-10 Numeric Is Patient Pain Free? Yes WC - Visit Discharge Discharge Condition Stable Ambulatory Status Ambulatory Transportation Private Auto Medication Reconcilliation completed & No provided to patient/care provider Clinical Summary of Care Provided Yes Assessment/Plan Assessment/Plan (1) Non-pressure chronic ulcer of left ankle with necrosis of muscle: CODE(S): L97.323 - Non-pressure chronic ulcer of left ankle with necrosis of muscle (2) Delayed wound healing: CODE(S): T14.8XXD - Other injury of unspecified body region, subsequent encounter (3) Venous insufficiency (chronic) (peripheral): CODE(S): I87.2 - Venous insufficiency (chronic) (peripheral) (4) Bacterial infection due to Pseudomonas: CODE(S): A49.8 - Other bacterial infections of unspecified site (5) Iron deficiency anemia: CODE(S): D50.9 - Iron deficiency anemia, unspecified (6) Obesity: CODE(S): E66.9 - Obesity, unspecified PLAN: Plan Patient seen and evaluated Left lower extremity: There is ulceration noted to the medial aspect of the left lower extremity/ankle with healthy granular tissue with some serosanguineous drainage. Ulceration is noted to be overlying the neurovascular bundle. Negative Stemmer sign left foot. There is evidence of stasis dermatitis with hyperpigmentation/hemosiderin staining of the left lower extremity. Ulceration underwent debridement as noted in the clinical panel above. Ulceration measures 1.3 cm x 1.5 cm x 0.1 cm. No signs of infection. Skin maceration resolved with less drainage and wound is granulating in well. EpiFix graft #9 applied to wound bed today. Site dressed with Adaptic touch, Steri-Strips, and dry sterile dressing. 3M compression wrap applied to lower extremity. He was instructed to not get the dressing wet. Ulceration continues to demonstrate reduction in size versus previous visits. Overall tissue continues improvement with less drainage. New blister anterior medial ankle is superficial. No signs of infection. Discussed if he soaks through dressing to call and return for new dressing/compression wrap application. He had another bout of increased drainage with some localized rubor secondary to macerated tissue. Patient was not elevating legs and increasing work shifts over the weekend of greater than 12 hours at a time on his feet. Discussion was had with him that he must continue elevating legs and limit time on feet to aid in wound healing. Cultures were obtained 10/22/2023 and positive wound and urine culture with PsA. Also has PsA in urine. Wound does demonstrate reduction in size however due to previous drainage he was started on oral antibiotic. Rx Augmentin 875 mg twice daily x 14 days. Stop date 11/05/2023. He is following with infectious disease and will continue to receive outpatient IV antibiotic infusions of Zosyn for 6 weeks. I discussed continued elevation of the lower extremity at all times of rest to aid in edema control. I discussed once ulceration is healed he is to return to a prescription based compression stocking. Discussed updating stockings every 6 to 9 months to ensure proper uniform compression to treat his chronic venous insufficiency and to reduce recidivism of wound. LEAS performed 09/02/23 demonstrates right RONEN 1.31, normal. TBI and Doppler/PVR waveforms of right leg normal at rest; left RONEN 1.38, normal. TBI and Doppler/PVR waveforms of the left leg normal at rest. Venous studies performed 09/02/2023 demonstrates no evidence of bilateral lower extremity DVT. Bilateral great saphenous veins appear patent and compressible segmentally. Positive for reflux right popliteal vein, great saphenous vein in. Positive for reflux left popliteal vein, saphenofemoral junction. Discussed importance of serial debridement to aid in wound healing. He was approved for application of EpiFix advanced wound product, we will continue applications. Discussed proper diet to increase protein intake to aid in wound healing. Recommended Vladimir supplementation. Discussed reducing foods with salty content to aid in edema control. Discussed avoidance of prolonged standing or legs dangling over side of chair/bed. Discussed with patient the depth of the ulcerative site and close proximity to the neurovascular bundle. Discussed with him signs and symptoms of infection. Discussed if he notices redness about the ulcerative site moving up the leg, purulent drainage from the wound site, foul increasing odor from the wound, or if he experiences fever greater than 101 degree, nausea, vomiting, chills/rigor, that these are signs of progressing infection and he should report to the ED to receive IV antibiotics. Patient and voiced understanding of this. The following work up and care recommendations were made: Dressing: EpiFix, Adaptic touch, Steri-Strips, Suprasorb, 3M compression wrap left lower extremity. Wash: Do not get wet Tissue growth optimization: EpiFix Offload: To ensure no pressure to the medial ankle/hindfoot Vascular: DP and PT pulses palpable with adequate capillary fill to digits. Edema: Discussed elevation of lower extremities at times of rest. 3M compression wrap placed. Infection: No signs of infection. Rx: Augmentin 875mg BID x 14 days, stop date 11/05/23. He was instructed to take oral antibiotic to completion. Will continue following infectious disease for IV antibiotic outpatient at infusion center for treatment of UTI Pain: May take Tylenol extra strength for discomfort Host factors: Chronic venous insufficiency I answered all the patient's questions. To return to the wound healing center in 1 week or call sooner if the patient has any questions or concerns.
[2023-11-26 09:22] VITALS: BP 137/88; PULSE 71; RESP 18; TEMP 34.7; BMI 28.8
--- NOTE | 2023-11-26 09:27 | PCM.WC.PN ---
History of Present Illness Date of Service: 11/26/23 Chief Complaint: Left medial ankle wound History of Wound: 78-year-old male presents for follow-up on right lateral ankle wound. Presents today due to new blister formation to anterior lateral ankle. typically a patient of Dr. Burns's but presented earlier due to concern for blister. No other complaints today. 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 He has left grafting product in place and is keeping compression dressing dry. He is continuing his infusions of IV Zosyn and will complete 6-week course per infectious disease. He states he recently met with Dr. Mckee regarding his chronic venous insufficiency. Denies constitutional symptoms. Denies further complaints. Objective Data Objective Data Vital Signs: Vital Signs Temp Pulse Resp BP O2 Del Method 94.5 F L 71 18 137/88 H Room Air 11/26/23 09:22 11/26/23 09:22 11/26/23 09:22 11/26/23 09:22 11/26/23 09:22 Oxygen Delivery Method Room Air Weight: 99.159 kg Body Mass Index (BMI) 28.8 Physical Exam Const alert, oriented x3 and no apparent distress General Appearance: cooperative HEENT normocephalic Eyes Eyes Narrative: Wears glasses General Eye: normal appearance of both eyes Neck General: normal visual inspection Lymph Lymphatic: no lymphadenopathy noted and no lymphedema noted Resp normal respiratory effort Cardio regular rate and regular rhythm Extremity normal capillary refill, no joint enlargement, no calf tenderness and no pedal edema Extremity Narrative: Vascular: DP and PT pulses weakly palpable. Capillary fill time to the digits is 5 seconds. Normal temperature gradient. There is absent hair growth to the digits noted. Dermatological: There is ulceration noted to the medial aspect of the left lower extremity/ankle with healthy granular layer and serosanguineous drainage. Ulceration is noted to be overlying the neurovascular bundle. Negative Stemmer sign left foot. There is evidence of stasis dermatitis with hyperpigmentation/hemosiderin staining of the left lower extremity. Musculoskeletal: Muscle strength 5 of 5 age-appropriate. Skin no rashes or lesions noted, skin turgor normal and no jaundice Neuro moves all extremities Debridement Note Debridement Note Wound debrided: Left medial ankle Laterality: Left Wound Grade/Stage: Cisneros stage II Type of Debridement: Excisional debridement Anesthesia Used: 5% Lidocaine Gel Depth: Down to and including healthy tissue and in the subcutaneous layer Percentage of wound debrided: 100 Instrument Used: 5mm curette Tissue Removed: Fibrous, devitalized subcutaneous, biofilm, slough Severity: Fat Layer Exposed Amount of bleeding with debridement: Mild Bleeding Controlled with: Compression and gauze Patient tolerated procedure: Patient tolerated procedure well Post-Debridement Measurements and Additional Note: Post-Debridement Measurements/Treatment - Nurse 1 - General Ulcer Assessment Start: 11/19/23 09:31 Freq: Status: Active Protocol: LA [facility] Activity Type Activity Date Activity User E-sign Co-sign Detail Recorded Client Recorded Date Recorded By Document 11/19/23 09:33 KW Desktop 11/19/23 09:44 KW Document 11/26/23 09:22 KW Desktop 11/26/23 09:25 KW 11/19/23 11/26/23 09:33 09:22 - Today's Visit Information Type of service Follow-up Visit Follow-up Visit (Physician/RADIOLOGIST CHIEF OF BREAST IMAGING (Physician/RADIOLOGIST CHIEF OF BREAST IMAGING ) ) Arrival Mode Ambulatory Ambulatory Patient Identification Verified (Name & Yes Yes ) Height and Weight Body Mass Index (BMI) 28.8 28.8 BMI Classification Overweight Overweight Vital Signs Temperature (97.8 F-99.1 F) 94.5 F L Temperature Source Temporal Pulse Rate (60-100) 67 71 Pulse Location Monitor Monitor Respiratory Rate (12-18) 18 18 Respiratory rate source Observation Observation Oxygen Delivery Method Room Air Room Air Blood Pressure (90/60-120/80) 164/97 H 137/88 H Blood Pressure Mean (mm Hg) 119 104 Source Monitor Monitor Position Semi-Fowlers Semi-Fowlers Blood Pressure Location Right Forearm Left Arm History Since Last Visit- (Skip if this is Patient's initial visit) Have you changed medications since your No No last visit? Any new allergies or adverse reactions No No Had a fall/change in ADL's that may No No increase risk of falls Signs or symptoms of abuse and/or No No neglect since last visit Have you been in the hospital since your No No last visit? Has dressing in place as prescribed Yes Yes Has compression in place as prescribed Yes Yes Has offloadiing in place as prescribed N/A N/A Experienced any changes in pain level or No No management Left Footwear Regular Shoe Regular Shoe Right Footwear Regular Shoe Regular Shoe Pain Scale: 0-10 Numeric Is Patient Pain Free? Yes Yes WC - Nurse 1 - General Ulcer Measurement Start: 11/19/23 09:31 Freq: Status: Active Protocol: Activity Type Activity Date Activity User E-sign Co-sign Detail Recorded Client Recorded Date Recorded By Document 11/19/23 09:33 KW Desktop 11/19/23 09:44 KW Document 11/26/23 09:22 KW Desktop 11/26/23 09:25 KW 11/19/23 11/26/23 09:33 09:22 Wound Center Nurse 1 #1 L Med Ankle -Current Size (cm) - Length 1.5 0.1 -Current Size (cm) - Width 1.5 0.1 -Current Size (cm) - Depth 0.1 0.1 -Total Square Cm 2.25 0.01 -Date of Last Picture (Recall this 11/26/23 field) -Photo Taken Yes -Exudate Amt Medium -Exudate Type Serosanguineous -Wound Margin Distinct, Outline Attached -Texture (Megan-wound Skin Appearance) Assessed -Moisture (Megan-wound Skin Appearance) Assessed -Color (Megan-wound Skin Appearance) Assessed -Temperature (Megan-wound Skin No Abnormality Appearance) (Pt Warm) -Ulcer Cleansing Soap and Water Soap and Water -Anesthetic Used 5% Lidocaine 5% Lidocaine Gel Gel -Wound Comment(s) SCABBED Right Calf (cm) 36.5 Right Ankle (cm) 24.5 Left Calf (cm) 36.4 Left Ankle (cm) 21.5 WC - Nurse 2 - General Ulcer CM Notes Start: 11/19/23 09:31 Freq: Status: Active Protocol: Activity Type Activity Date Activity User E-sign Co-sign Detail Recorded Client Recorded Date Recorded By Document 11/19/23 10:33 PL Tablet 11/19/23 10:38 PL 11/19/23 10:33 Wound Center Nurse 2 #1 L Med Ankle -Time 09:55 -Correct Patient Yes -Correct Side, Site, Position Yes -Correct Procedure Yes -Procedure Performed Yes -Type of Procedure Debridement -Clinical Debridement Subcutaneous -Tissue Removed Subcutaneous -Post Debridement (cm) - Length 1.3 -Post Debridement (cm) - Width 0.7 -Post Debridement (cm) - Depth 0.1 -Total Square (Post) (cm) 0.91 -Area of Debridement (cm) - Length 1.3 -Area of Debridement (cm) - Width 0.7 -Total Square (Area) (cm) 0.91 -Tunneling No -Undermining/Tunneling No -Circular Undermining No -Wound/Ulcer Outcome Not Healed -Ulcer Cleansing Rinsed/ Irrigated with Saline -Foul Odor after Cleansing No -Bioengineered Tissue Yes -Type of Bioengineered Tissue Epifix 18mm Disc -Expiration Date 07/19/28 -Product Lot Number [id number] -Percent Used 100 -Bleeding Controlled with Pressure -Treatment Response Procedure Tolerated Well -Debridement - Subq, 1st 20sq cm No -Apply Skin Sub - 1st 25 sq cm - Legs 1 -Epifix 18mm Disc 3 Pain Scale: 0-10 Numeric Is Patient Pain Free? Yes - Nurse 3 - General Ulcer D/C NN Start: 11/19/23 09:31 Freq: Status: Active Protocol: Activity Type Activity Date Activity User E-sign Co-sign Detail Recorded Client Recorded Date Recorded By Document 11/19/23 10:07 KW Desktop 11/19/23 10:07 KW 11/19/23 10:07 Wound Care Center Nurse 3 #1 L Med Ankle -Primary Dressing Applied Optilok 6.5x10 -Primary Dressing Covered/Secured with Dry Gauze & Roll Gauze, Secured with Tape -Optilok 6.5x10 1 Left -Multi-Layered Wrap Application Multi-Layer Comp - Left ($) Pain Scale: 0-10 Numeric Is Patient Pain Free? Yes - Visit Discharge Discharge Condition Stable Ambulatory Status Ambulatory Transportation Private Auto Medication Reconcilliation completed & No provided to patient/care provider Clinical Summary of Care Provided Yes Assessment/Plan Assessment/Plan (1) Non-pressure chronic ulcer of left ankle with necrosis of muscle: CODE(S): L97.323 - Non-pressure chronic ulcer of left ankle with necrosis of muscle (2) Delayed wound healing: CODE(S): T14.8XXD - Other injury of unspecified body region, subsequent encounter (3) Venous insufficiency (chronic) (peripheral): CODE(S): I87.2 - Venous insufficiency (chronic) (peripheral) (4) Bacterial infection due to Pseudomonas: CODE(S): A49.8 - Other bacterial infections of unspecified site (5) Iron deficiency anemia: CODE(S): D50.9 - Iron deficiency anemia, unspecified (6) Obesity: CODE(S): E66.9 - Obesity, unspecified PLAN: Plan Patient seen and evaluated Left lower extremity: There is ulceration noted to the medial aspect of the left lower extremity/ankle with healthy granular tissue with some serosanguineous drainage. Ulceration is noted to be overlying the neurovascular bundle. Negative Stemmer sign left foot. There is evidence of stasis dermatitis with hyperpigmentation/hemosiderin staining of the left lower extremity. Ulceration underwent debridement as noted in the clinical panel above. Ulceration measures 1.0 cm x 1.1 cm x 0.1 cm. No signs of infection. Skin maceration resolved with less drainage and wound is granulating in well. EpiFix graft #10 applied to wound bed today. Site dressed with Adaptic touch, Steri-Strips, and dry sterile dressing. 3M compression wrap applied to lower extremity. He was instructed to not get the dressing wet. Ulceration continues to demonstrate reduction in size versus previous visits. Overall tissue continues improvement with less drainage. Discussed if he soaks through dressing to call and return for new dressing/compression wrap application. He had another bout of increased drainage with some localized rubor secondary to macerated tissue. Patient was not elevating legs and increasing work shifts over the weekend of greater than 12 hours at a time on his feet. Discussion was had with him that he must continue elevating legs and limit time on feet to aid in wound healing. Cultures were obtained 10/22/2023 and positive wound and urine culture with PsA. Also has PsA in urine. Wound does demonstrate reduction in size however due to previous drainage he was started on oral antibiotic. Rx Augmentin 875 mg twice daily x 14 days. Stop date 11/05/2023. He is following with infectious disease and will continue to receive outpatient IV antibiotic infusions of Zosyn for 6 weeks. I discussed continued elevation of the lower extremity at all times of rest to aid in edema control. I discussed once ulceration is healed he is to return to a prescription based compression stocking. Discussed updating stockings every 6 to 9 months to ensure proper uniform compression to treat his chronic venous insufficiency and to reduce recidivism of wound. LEAS performed 09/02/23 demonstrates right RONEN 1.31, normal. TBI and Doppler/PVR waveforms of right leg normal at rest; left RONEN 1.38, normal. TBI and Doppler/PVR waveforms of the left leg normal at rest. Venous studies performed 09/02/2023 demonstrates no evidence of bilateral lower extremity DVT. Bilateral great saphenous veins appear patent and compressible segmentally. Positive for reflux right popliteal vein, great saphenous vein in. Positive for reflux left popliteal vein, saphenofemoral junction. He did see Dr. Mckee in office last week and plan is for venogram to assess for central obstruction, he will continue to follow with vascular. Discussed importance of serial debridement to aid in wound healing. He was approved for application of EpiFix advanced wound product, we will continue applications. Discussed proper diet to increase protein intake to aid in wound healing. Recommended Vladimir supplementation. Discussed reducing foods with salty content to aid in edema control. Discussed avoidance of prolonged standing or legs dangling over side of chair/bed. Discussed with patient the depth of the ulcerative site and close proximity to the neurovascular bundle. Discussed with him signs and symptoms of infection. Discussed if he notices redness about the ulcerative site moving up the leg, purulent drainage from the wound site, foul increasing odor from the wound, or if he experiences fever greater than 101 degree, nausea, vomiting, chills/rigor, that these are signs of progressing infection and he should report to the ED to receive IV antibiotics. Patient and voiced understanding of this. The following work up and care recommendations were made: Dressing: EpiFix, Adaptic touch, Steri-Strips, Suprasorb, 3M compression wrap left lower extremity. Wash: Do not get wet Tissue growth optimization: EpiFix Offload: To ensure no pressure to the medial ankle/hindfoot Vascular: DP and PT pulses palpable with adequate capillary fill to digits. Edema: Discussed elevation of lower extremities at times of rest. 3M compression wrap placed. Infection: No signs of infection. Rx: Augmentin 875mg BID x 14 days, stop date 11/05/23. He was instructed to take oral antibiotic to completion. Will continue following infectious disease for IV antibiotic outpatient at infusion center for treatment of UTI Pain: May take Tylenol extra strength for discomfort Host factors: Chronic venous insufficiency I answered all the patient's questions. To return to the wound healing center in 1 week or call sooner if the patient has any questions or concerns.
[2023-12-03 09:18] VITALS: BP 131/71; PULSE 73; RESP 20; TEMP 35.9; BMI 28.8
--- NOTE | 2023-12-03 09:45 | PCM.WC.PN ---
History of Present Illness Date of Service: 12/03/23 Chief Complaint: Left medial ankle wound History of Wound: 78-year-old male presents for follow-up on right lateral ankle wound. Presents today due to new blister formation to anterior lateral ankle. typically a patient of Dr. Burns's but presented earlier due to concern for blister. No other complaints today. 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 He has left grafting product in place and is keeping compression dressing dry. He is continuing his infusions of IV Zosyn and will complete 6-week course per infectious disease. He continues to follow with Dr. Mckee regarding his chronic venous insufficiency. States wound continues to improve. Denies constitutional symptoms. Denies further complaints. Objective Data Objective Data Vital Signs: Vital Signs Temp Pulse Resp BP O2 Del Method 96.7 F L 73 20 H 131/71 H Room Air 12/03/23 09:18 12/03/23 09:18 12/03/23 09:18 12/03/23 09:18 11/26/23 09:22 Oxygen Delivery Method Room Air Weight: 99.159 kg Body Mass Index (BMI) 28.8 Physical Exam Const alert, oriented x3 and no apparent distress General Appearance: cooperative HEENT normocephalic Eyes Eyes Narrative: Wears glasses General Eye: normal appearance of both eyes Neck General: normal visual inspection Lymph Lymphatic: no lymphadenopathy noted and no lymphedema noted Resp normal respiratory effort Cardio regular rate and regular rhythm Extremity normal capillary refill, no joint enlargement, no calf tenderness and no pedal edema Extremity Narrative: Vascular: DP and PT pulses weakly palpable. Capillary fill time to the digits is 5 seconds. Normal temperature gradient. There is absent hair growth to the digits noted. Dermatological: There is ulceration noted to the medial aspect of the left lower extremity/ankle with healthy granular layer and serosanguineous drainage. Ulceration is noted to be overlying the neurovascular bundle. Negative Stemmer sign left foot. There is evidence of stasis dermatitis with hyperpigmentation/hemosiderin staining of the left lower extremity. Musculoskeletal: Muscle strength 5 of 5 age-appropriate. Skin no rashes or lesions noted, skin turgor normal and no jaundice Neuro moves all extremities Debridement Note Debridement Note Wound debrided: Left medial ankle Laterality: Left Wound Grade/Stage: Cisneros stage II Type of Debridement: Excisional debridement Anesthesia Used: 5% Lidocaine Gel Depth: Down to and including healthy tissue and in the subcutaneous layer Percentage of wound debrided: 100 Instrument Used: 5mm curette Tissue Removed: Fibrous, devitalized subcutaneous, biofilm, slough Severity: Fat Layer Exposed Amount of bleeding with debridement: Mild Bleeding Controlled with: Compression and gauze Patient tolerated procedure: Patient tolerated procedure well Post-Debridement Measurements and Additional Note: Post-Debridement Measurements/Treatment - Nurse 1 - General Ulcer Assessment Start: 11/19/23 09:31 Freq: Status: Active Protocol: [email or web address] Activity Type Activity Date Activity User E-sign Co-sign Detail Recorded Client Recorded Date Recorded By Document 11/19/23 09:33 KW Desktop 11/19/23 09:44 KW Document 11/26/23 09:22 KW Desktop 11/26/23 09:25 KW Document 12/03/23 09:18 DL Desktop 12/03/23 09:22 DL 11/19/23 11/26/23 12/03/23 09:33 09:22 09:18 - Today's Visit Information Type of service Follow-up Visit Follow-up Visit Follow-up Visit (Physician/WILDLIFE REHABILITATOR (Physician/WILDLIFE REHABILITATOR (Physician/WILDLIFE REHABILITATOR ) ) ) Arrival Mode Ambulatory Ambulatory Ambulatory Transfer Assistance None Patient Identification Verified (Name & Yes Yes Yes ) Patient Requires Transmission-Based No Precautions Height and Weight Body Mass Index (BMI) 28.8 28.8 28.8 BMI Classification Overweight Overweight Overweight Vital Signs Temperature (97.8 F-99.1 F) 94.5 F L 96.7 F L Temperature Source Temporal Temporal Pulse Rate (60-100) 67 71 73 Pulse Location Monitor Monitor Monitor Respiratory Rate (12-18) 18 18 20 H Respiratory rate source Observation Observation Observation Oxygen Delivery Method Room Air Room Air Blood Pressure (90/60-120/80) 164/97 H 137/88 H 131/71 H Blood Pressure Mean (mm Hg) 119 104 91 Source Monitor Monitor Monitor Position Semi-Fowlers Semi-Fowlers Blood Pressure Location Right Forearm Left Arm History Since Last Visit- (Skip if this is Patient's initial visit) Have you changed medications since your No No No last visit? Any new allergies or adverse reactions No No No Had a fall/change in ADL's that may No No No increase risk of falls Signs or symptoms of abuse and/or No No No neglect since last visit Have you been in the hospital since your No No No last visit? Has dressing in place as prescribed Yes Yes Yes Has compression in place as prescribed Yes Yes Yes Has offloadiing in place as prescribed N/A N/A N/A Experienced any changes in pain level or No No No management Left Footwear Regular Shoe Regular Shoe Slipper Right Footwear Regular Shoe Regular Shoe Slipper Pain Scale: 0-10 Numeric Is Patient Pain Free? Yes Yes Yes WC - Nurse 1 - General Ulcer Measurement Start: 11/19/23 09:31 Freq: Status: Active Protocol: Activity Type Activity Date Activity User E-sign Co-sign Detail Recorded Client Recorded Date Recorded By Document 11/19/23 09:33 KW Desktop 11/19/23 09:44 KW Document 11/26/23 09:22 KW Desktop 11/26/23 09:25 KW Document 12/03/23 09:18 DL Desktop 12/03/23 09:22 DL 11/19/23 11/26/23 12/03/23 09:33 09:22 09:18 Wound Center Nurse 1 #1 L Med Ankle -Current Size (cm) - Length 1.5 0.1 0.1 -Current Size (cm) - Width 1.5 0.1 0.1 -Current Size (cm) - Depth 0.1 0.1 0.1 -Total Square Cm 2.25 0.01 0.01 -Date of Last Picture (Recall this 11/26/23 field) -Photo Taken Yes -Exudate Amt Medium Small -Exudate Type Serosanguineous Serosanguineous -Wound Margin Distinct, Thickened Outline Attached -Granulation Amt None Present (0 %) -Necrosis Amt Large (67-100%) -Necrotic Tissue Type Eschar -Structure Exposed N/A -Texture (Megan-wound Skin Appearance) Assessed Scarring -Moisture (Megan-wound Skin Appearance) Assessed No Abnormality -Color (Megan-wound Skin Appearance) Assessed No Abnormality -Temperature (Megan-wound Skin No Abnormality No Abnormality Appearance) (Pt Warm) (Pt Warm) -Ulcer Cleansing Soap and Water Soap and Water Soap and Water -Foul Odor after Cleansing No -Anesthetic Used 5% Lidocaine 5% Lidocaine 5% Lidocaine Gel Gel Gel -Wound Comment(s) SCABBED Right Calf (cm) 36.5 Right Ankle (cm) 24.5 Left Calf (cm) 36.4 37.3 Left Ankle (cm) 21.5 22 - Nurse 2 - General Ulcer CM Notes Start: 11/19/23 09:31 Freq: Status: Active Protocol: Activity Type Activity Date Activity User E-sign Co-sign Detail Recorded Client Recorded Date Recorded By Document 11/19/23 10:33 PL Tablet 11/19/23 10:38 PL Document 11/26/23 12:02 PL [id number] 11/26/23 12:04 PL 11/19/23 11/26/23 10:33 12:02 Wound Center Nurse 2 #1 L Med Ankle -Time 09:55 09:38 -Correct Patient Yes Yes -Correct Side, Site, Position Yes Yes -Correct Procedure Yes Yes -Procedure Performed Yes Yes -Type of Procedure Debridement Debridement -Clinical Debridement Subcutaneous Subcutaneous -Tissue Removed Subcutaneous Subcutaneous -Post Debridement (cm) - Length 1.3 1.0 -Post Debridement (cm) - Width 0.7 1.1 -Post Debridement (cm) - Depth 0.1 0.1 -Total Square (Post) (cm) 0.91 1.10 -Area of Debridement (cm) - Length 1.3 1.0 -Area of Debridement (cm) - Width 0.7 1.1 -Total Square (Area) (cm) 0.91 1.10 -Tunneling No No -Undermining/Tunneling No No -Circular Undermining No No -Wound/Ulcer Outcome Not Healed Not Healed -Ulcer Cleansing Rinsed/ Rinsed/ Irrigated with Irrigated with Saline Saline -Foul Odor after Cleansing No No -Bioengineered Tissue Yes Yes -Type of Bioengineered Tissue Epifix 18mm Epifix 18mm Disc Disc -Expiration Date 07/19/28 07/19/28 -Product Lot Number [id number] -Percent Used 100 100 -Bleeding Controlled with Pressure Pressure -Treatment Response Procedure Procedure Tolerated Well Tolerated Well -Debridement - Subq, 1st 20sq cm No No -Apply Skin Sub - 1st 25 sq cm - Legs 1 1 -Epifix 18mm Disc 3 3 Pain Scale: 0-10 Numeric Is Patient Pain Free? Yes Yes - Nurse 3 - General Ulcer D/C NN Start: 11/19/23 09:31 Freq: Status: Active Protocol: Activity Type Activity Date Activity User E-sign Co-sign Detail Recorded Client Recorded Date Recorded By Document 11/19/23 10:07 KW Desktop 11/19/23 10:07 KW Document 11/26/23 09:59 Laptop 11/26/23 09:59 11/19/23 11/26/23 10:07 09:59 Wound Care Center Nurse 3 #1 L Med Ankle -Primary Dressing Applied Optilok 6.5x10 -Primary Dressing Covered/Secured with Dry Gauze & Roll Gauze, Secured with Tape -Other Covering adb pad -Optilok 6.5x10 1 Left -Lotion applied to leg before Yes compression wrap -Multi-Layered Wrap Application Multi-Layer Multi-Layer Comp - Left ($) Comp - Left ($) Pain Scale: 0-10 Numeric Is Patient Pain Free? Yes Yes - Visit Discharge Discharge Condition Stable Stable Ambulatory Status Ambulatory Ambulatory Transportation Private Auto Private Auto Medication Reconcilliation completed & No Yes provided to patient/care provider Clinical Summary of Care Provided Yes Yes Assessment/Plan Assessment/Plan (1) Non-pressure chronic ulcer of left ankle with necrosis of muscle: CODE(S): L97.323 - Non-pressure chronic ulcer of left ankle with necrosis of muscle (2) Delayed wound healing: CODE(S): T14.8XXD - Other injury of unspecified body region, subsequent encounter (3) Venous insufficiency (chronic) (peripheral): CODE(S): I87.2 - Venous insufficiency (chronic) (peripheral) (4) Bacterial infection due to Pseudomonas: CODE(S): A49.8 - Other bacterial infections of unspecified site (5) Iron deficiency anemia: CODE(S): D50.9 - Iron deficiency anemia, unspecified (6) Obesity: CODE(S): E66.9 - Obesity, unspecified PLAN: Plan Patient seen and evaluated Left lower extremity: There is ulceration noted to the medial aspect of the left lower extremity/ankle with healthy granular tissue with some serosanguineous drainage. Ulceration is noted to be overlying the neurovascular bundle. Negative Stemmer sign left foot. There is evidence of stasis dermatitis with hyperpigmentation/hemosiderin staining of the left lower extremity. Ulceration underwent debridement as noted in the clinical panel above. Ulceration measures 0.5 cm x 0.7 cm x 0.1 cm. No signs of infection. Skin maceration resolved with less drainage and wound is granulating in well. He has completed all 10 EpiFix graft applications. Liliana applied to the wound base today with dry sterile dressing. 3M compression wrap applied to lower extremity. He was instructed to not get the dressing wet. Ulceration continues to demonstrate reduction in size versus previous visits. Overall tissue continues improvement with less drainage. Discussed if he soaks through dressing to call and return for new dressing/compression wrap application. He had another bout of increased drainage with some localized rubor secondary to macerated tissue. Patient was not elevating legs and increasing work shifts over the weekend of greater than 12 hours at a time on his feet. Discussion was had with him that he must continue elevating legs and limit time on feet to aid in wound healing. Cultures were obtained 10/22/2023 and positive wound and urine culture with PsA. Also has PsA in urine. Wound does demonstrate reduction in size however due to previous drainage he was started on oral antibiotic. Rx Augmentin 875 mg twice daily x 14 days. Stop date 11/05/2023. He is following with infectious disease and will continue to receive outpatient IV antibiotic infusions of Zosyn for 6 weeks. I discussed continued elevation of the lower extremity at all times of rest to aid in edema control. I discussed once ulceration is healed he is to return to a prescription based compression stocking. Discussed updating stockings every 6 to 9 months to ensure proper uniform compression to treat his chronic venous insufficiency and to reduce recidivism of wound. LEAS performed 09/02/23 demonstrates right RONEN 1.31, normal. TBI and Doppler/PVR waveforms of right leg normal at rest; left RONEN 1.38, normal. TBI and Doppler/PVR waveforms of the left leg normal at rest. Venous studies performed 09/02/2023 demonstrates no evidence of bilateral lower extremity DVT. Bilateral great saphenous veins appear patent and compressible segmentally. Positive for reflux right popliteal vein, great saphenous vein in. Positive for reflux left popliteal vein, saphenofemoral junction. He did see Dr. Mckee in office and plan is for venogram to assess for central obstruction, he will continue to follow with vascular. Discussed importance of serial debridement to aid in wound healing. Discussed proper diet to increase protein intake to aid in wound healing. Recommended Vladimir supplementation. Discussed reducing foods with salty content to aid in edema control. Discussed avoidance of prolonged standing or legs dangling over side of chair/bed. Discussed with patient the depth of the ulcerative site and close proximity to the neurovascular bundle. Discussed with him signs and symptoms of infection. Discussed if he notices redness about the ulcerative site moving up the leg, purulent drainage from the wound site, foul increasing odor from the wound, or if he experiences fever greater than 101 degree, nausea, vomiting, chills/rigor, that these are signs of progressing infection and he should report to the ED to receive IV antibiotics. Patient and voiced understanding of this. The following work up and care recommendations were made: Dressing: Liliana, dry sterile dressing, 3M compression wrap left lower extremity. Wash: Soap and water Tissue growth optimization: Liliana Offload: To ensure no pressure to the medial ankle/hindfoot Vascular: DP and PT pulses palpable with adequate capillary fill to digits. Edema: Discussed elevation of lower extremities at times of rest. 3M compression wrap placed. Infection: No signs of infection. Rx: Augmentin 875mg BID x 14 days, stop date 11/05/23. He was instructed to take oral antibiotic to completion. Will continue following infectious disease for IV antibiotic outpatient at infusion center for treatment of UTI Pain: May take Tylenol extra strength for discomfort Host factors: Chronic venous insufficiency I answered all the patient's questions. To return to the wound healing center in 1 week or call sooner if the patient has any questions or concerns.
--- NOTE | 2023-12-10 08:57 | PN.PCM_ITS ---
History of Present Illness Chief Complaint: Left medial ankle wound History of Wound: 78-year-old male presents for follow-up on right lateral ankle wound. Presents today due to new blister formation to anterior lateral ankle. typically a patient of Dr. Ponce but presented earlier due to concern for blister. No other complaints today. 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 He has left grafting product in place and is keeping compression dressing dry. He is continuing his infusions of IV Zosyn and will complete 6-week course per infectious disease. He continues to follow with Dr. Mckee regarding his chronic venous insufficiency. States wound continues to improve. Denies constitutional symptoms. Denies further complaints. Objective Data Objective Data Vital Signs: Vital Signs Temp Pulse Resp BP O2 Del Method 96.7 F L 73 20 H 131/71 H Room Air 12/03/23 09:18 12/03/23 09:18 12/03/23 09:18 12/03/23 09:18 11/26/23 09:22 Oxygen Delivery Method Room Air Weight: 99.159 kg Body Mass Index (BMI) 28.8 Physical Exam Const alert, oriented x3 and no apparent distress General Appearance: cooperative HEENT normocephalic Eyes Eyes Narrative: Wears glasses General Eye: normal appearance of both eyes Neck General: normal visual inspection Lymph Lymphatic: no lymphadenopathy noted and no lymphedema noted Resp normal respiratory effort Cardio regular rate and regular rhythm Extremity normal capillary refill, no joint enlargement, no calf tenderness and no pedal edema Extremity Narrative: Vascular: DP and PT pulses weakly palpable. Capillary fill time to the digits is 5 seconds. Normal temperature gradient. There is absent hair growth to the digits noted. Dermatological: There is ulceration noted to the medial aspect of the left lower extremity/ankle with healthy granular layer and serosanguineous drainage. Ulceration is noted to be overlying the neurovascular bundle. Negative Stemmer sign left foot. There is evidence of stasis dermatitis with hyperpigmentation/hemosiderin staining of the left lower extremity. Musculoskeletal: Muscle strength 5 of 5 age-appropriate. Skin no rashes or lesions noted, skin turgor normal and no jaundice Neuro moves all extremities Debridement Note Debridement Note Post-Debridement Measurements and Additional Note: Post-Debridement Measurements/Treatment WC - Nurse 1 - General Ulcer Assessment Start: 11/19/23 09:31 Freq: Status: Active Protocol: WC.LOWEXT Activity Type Activity Date Activity User E-sign Co-sign Detail Recorded Client Recorded Date Recorded By Document 11/19/23 09:33 KW Desktop 11/19/23 09:44 KW Document 11/26/23 09:22 KW Desktop 11/26/23 09:25 KW Document 12/03/23 09:18 DL Desktop 12/03/23 09:22 DL 11/19/23 11/26/23 12/03/23 09:33 09:22 09:18 WC - Today's Visit Information Type of service Follow-up Visit Follow-up Visit Follow-up Visit (Physician/SPLIT LEATHER MOSSER (Physician/SPLIT LEATHER MOSSER (Physician/SPLIT LEATHER MOSSER ) ) ) Arrival Mode Ambulatory Ambulatory Ambulatory Transfer Assistance None Patient Identification Verified (Name & Yes Yes Yes ) Patient Requires Transmission-Based No Precautions Height and Weight Body Mass Index (BMI) 28.8 28.8 28.8 BMI Classification Overweight Overweight Overweight Vital Signs Temperature (97.8 F-99.1 F) 94.5 F L 96.7 F L Temperature Source Temporal Temporal Pulse Rate (60-100) 67 71 73 Pulse Location Monitor Monitor Monitor Respiratory Rate (12-18) 18 18 20 H Respiratory rate source Observation Observation Observation Oxygen Delivery Method Room Air Room Air Blood Pressure (90/60-120/80) 164/97 H 137/88 H 131/71 H Blood Pressure Mean (mm Hg) 119 104 91 Source Monitor Monitor Monitor Position Semi-Fowlers Semi-Fowlers Blood Pressure Location Right Forearm Left Arm History Since Last Visit- (Skip if this is Patient's initial visit) Have you changed medications since your No No No last visit? Any new allergies or adverse reactions No No No Had a fall/change in ADL's that may No No No increase risk of falls Signs or symptoms of abuse and/or No No No neglect since last visit Have you been in the hospital since your No No No last visit? Has dressing in place as prescribed Yes Yes Yes Has compression in place as prescribed Yes Yes Yes Has offloadiing in place as prescribed N/A N/A N/A Experienced any changes in pain level or No No No management Left Footwear Regular Shoe Regular Shoe Slipper Right Footwear Regular Shoe Regular Shoe Slipper Pain Scale: 0-10 Numeric Is Patient Pain Free? Yes Yes Yes WC - Nurse 1 - General Ulcer Measurement Start: 11/19/23 09:31 Freq: Status: Active Protocol: Activity Type Activity Date Activity User E-sign Co-sign Detail Recorded Client Recorded Date Recorded By Document 11/19/23 09:33 KW Desktop 11/19/23 09:44 KW Document 11/26/23 09:22 KW Desktop 11/26/23 09:25 KW Document 12/03/23 09:18 DL Desktop 12/03/23 09:22 DL 11/19/23 11/26/23 12/03/23 09:33 09:22 09:18 Wound Center Nurse 1 #1 L Med Ankle -Current Size (cm) - Length 1.5 0.1 0.1 -Current Size (cm) - Width 1.5 0.1 0.1 -Current Size (cm) - Depth 0.1 0.1 0.1 -Total Square Cm 2.25 0.01 0.01 -Date of Last Picture (Recall this 11/26/23 field) -Photo Taken Yes -Exudate Amt Medium Small -Exudate Type Serosanguineous Serosanguineous -Wound Margin Distinct, Thickened Outline Attached -Granulation Amt None Present (0 %) -Necrosis Amt Large (67-100%) -Necrotic Tissue Type Eschar -Structure Exposed N/A -Texture (Megan-wound Skin Appearance) Assessed Scarring -Moisture (Megan-wound Skin Appearance) Assessed No Abnormality -Color (Megan-wound Skin Appearance) Assessed No Abnormality -Temperature (Megan-wound Skin No Abnormality No Abnormality Appearance) (Pt Warm) (Pt Warm) -Ulcer Cleansing Soap and Water Soap and Water Soap and Water -Foul Odor after Cleansing No -Anesthetic Used 5% Lidocaine 5% Lidocaine 5% Lidocaine Gel Gel Gel -Wound Comment(s) SCABBED Right Calf (cm) 36.5 Right Ankle (cm) 24.5 Left Calf (cm) 36.4 37.3 Left Ankle (cm) 21.5 22 WC - Nurse 2 - General Ulcer CM Notes Start: 11/19/23 09:31 Freq: Status: Active Protocol: Activity Type Activity Date Activity User E-sign Co-sign Detail Recorded Client Recorded Date Recorded By Document 11/19/23 10:33 PL Tablet 02/01/24 10:38 PL Document 11/26/23 12:02 PL [id number] 11/26/23 12:04 PL Document 12/03/23 09:50 PL Tablet 12/03/23 09:51 PL 11/19/23 11/26/23 12/03/23 10:33 12:02 09:50 Wound Center Nurse 2 #1 L Med Ankle -Time 09:55 09:38 09:35 -Correct Patient Yes Yes Yes -Correct Side, Site, Position Yes Yes Yes -Correct Procedure Yes Yes Yes -Procedure Performed Yes Yes Yes -Type of Procedure Debridement Debridement Debridement -Clinical Debridement Subcutaneous Subcutaneous Subcutaneous -Tissue Removed Subcutaneous Subcutaneous Subcutaneous -Post Debridement (cm) - Length 1.3 1.0 0.5 -Post Debridement (cm) - Width 0.7 1.1 0.7 -Post Debridement (cm) - Depth 0.1 0.1 0.1 -Total Square (Post) (cm) 0.91 1.10 0.35 -Area of Debridement (cm) - Length 1.3 1.0 0.5 -Area of Debridement (cm) - Width 0.7 1.1 0.7 -Total Square (Area) (cm) 0.91 1.10 0.35 -Tunneling No No No -Undermining/Tunneling No No No -Circular Undermining No No No -Wound/Ulcer Outcome Not Healed Not Healed Not Healed -Ulcer Cleansing Rinsed/ Rinsed/ Rinsed/ Irrigated with Irrigated with Irrigated with Saline Saline Saline -Foul Odor after Cleansing No No No -Bioengineered Tissue Yes Yes -Type of Bioengineered Tissue Epifix 18mm Epifix 18mm Disc Disc -Expiration Date 07/19/28 07/19/28 -Product Lot Number [id number] -Percent Used 100 100 -Bleeding Controlled with Pressure Pressure Pressure -Treatment Response Procedure Procedure Procedure Tolerated Well Tolerated Well Tolerated Well -Debridement - Subq, 1st 20sq cm No No Yes -Apply Skin Sub - 1st 25 sq cm - Legs 1 1 -Epifix 18mm Disc 3 3 Pain Scale: 0-10 Numeric Is Patient Pain Free? Yes Yes Yes WC - Nurse 3 - General Ulcer D/C NN Start: 11/19/23 09:31 Freq: Status: Active Protocol: Activity Type Activity Date Activity User E-sign Co-sign Detail Recorded Client Recorded Date Recorded By Document 11/19/23 10:07 KW Desktop 11/19/23 10:07 KW Document 11/26/23 09:59 JF Laptop 11/26/23 09:59 JF Document 12/03/23 09:45 KW Desktop 12/03/23 09:46 KW 11/19/23 11/26/23 12/03/23 10:07 09:59 09:45 Wound Care Center Nurse 3 #1 L Med Ankle -Primary Dressing Applied Optilok 6.5x10 Promogran Liliana Matter -Primary Dressing Covered/Secured with Dry Gauze & Dry Gauze & Roll Gauze, Roll Gauze, Secured with Secured with Tape Tape -Other Covering adb pad -Optilok 6.5x10 1 -Promogran Liliana Matter 1 Left -Lotion applied to leg before Yes compression wrap -Multi-Layered Wrap Application Multi-Layer Multi-Layer Multi-Layer Comp - Left ($) Comp - Left ($) Comp - Left ($) Pain Scale: 0-10 Numeric Is Patient Pain Free? Yes Yes Yes WC - Visit Discharge Discharge Condition Stable Stable Stable Ambulatory Status Ambulatory Ambulatory Ambulatory Transportation Private Auto Private Auto Private Auto Medication Reconcilliation completed & No Yes No provided to patient/care provider Clinical Summary of Care Provided Yes Yes Yes Assessment/Plan Assessment/Plan (1) Non-pressure chronic ulcer of left ankle with necrosis of muscle: CODE(S): L97.323 - Non-pressure chronic ulcer of left ankle with necrosis of muscle (2) Delayed wound healing: CODE(S): T14.8XXD - Other injury of unspecified body region, subsequent encounter (3) Venous insufficiency (chronic) (peripheral): CODE(S): I87.2 - Venous insufficiency (chronic) (peripheral) (4) Bacterial infection due to Pseudomonas: CODE(S): A49.8 - Other bacterial infections of unspecified site (5) Iron deficiency anemia: CODE(S): D50.9 - Iron deficiency anemia, unspecified (6) Obesity: CODE(S): E66.9 - Obesity, unspecified PLAN: Plan Patient seen and evaluated Left lower extremity: There is ulceration noted to the medial aspect of the left lower extremity/ankle with healthy granular tissue with some serosanguineous drainage. Ulceration is noted to be overlying the neurovascular bundle. Negative Stemmer sign left foot. There is evidence of stasis dermatitis with hyperpigmentation/hemosiderin staining of the left lower extremity. Ulceration underwent debridement as noted in the clinical panel above. Ulceration measures 0.5 cm x 0.7 cm x 0.1 cm. No signs of infection. Skin maceration resolved with less drainage and wound is granulating in well. He has completed all 10 EpiFix graft applications. Liliana applied to the wound base today with dry sterile dressing. 3M compression wrap applied to lower extremity. He was instructed to not get the dressing wet. Ulceration continues to demonstrate reduction in size versus previous visits. Overall tissue continues improvement with less drainage. Discussed if he soaks through dressing to call and return for new dressing/compression wrap application. He had another bout of increased drainage with some localized rubor secondary to macerated tissue. Patient was not elevating legs and increasing work shifts over the weekend of greater than 12 hours at a time on his feet. Discussion was had with him that he must continue elevating legs and limit time on feet to aid in wound healing. Cultures were obtained 10/22/2023 and positive wound and urine culture with PsA. Also has PsA in urine. Wound does demonstrate reduction in size however due to previous drainage he was started on oral antibiotic. Rx Augmentin 875 mg twice daily x 14 days. Stop date 11/05/2023. He is following with infectious disease and will continue to receive outpatient IV antibiotic infusions of Zosyn for 6 weeks. I discussed continued elevation of the lower extremity at all times of rest to aid in edema control. I discussed once ulceration is healed he is to return to a prescription based compression stocking. Discussed updating stockings every 6 to 9 months to ensure proper uniform compression to treat his chronic venous insufficiency and to reduce recidivism of wound. LEAS performed 09/02/23 demonstrates right RONEN 1.31, normal. TBI and Dopple r/PVR waveforms of right leg normal at rest; left RONEN 1.38, normal. TBI and Doppler/PVR waveforms of the left leg normal at rest. Venous studies performed 09/02/2023 demonstrates no evidence of bilateral lower extremity DVT. Bilateral great saphenous veins appear patent and compressible segmentally. Positive for reflux right popliteal vein, great saphenous vein in. Positive for reflux left popliteal vein, saphenofemoral junction. He did see Dr. Mckee in office and plan is for venogram to assess for central obstruction, he will continue to follow with vascular. Discussed importance of serial debridement to aid in wound healing. Discussed proper diet to increase protein intake to aid in wound healing. Recommended Vladimir supplementation. Discussed reducing foods with salty content to aid in edema control. Discussed avoidance of prolonged standing or legs dangling over side of chair/bed. Discussed with patient the depth of the ulcerative site and close proximity to the neurovascular bundle. Discussed with him signs and symptoms of infection. Discussed if he notices redness about the ulcerative site moving up the leg, purulent drainage from the wound site, foul increasing odor from the wound, or if he experiences fever greater than 101 degree, nausea, vomiting, chills/rigor, that these are signs of progressing infection and he should report to the ED to receive IV antibiotics. Patient and voiced understanding of this. The following work up and care recommendations were made: Dressing: Liliana, dry sterile dressing, 3M compression wrap left lower extremity. Wash: Soap and water Tissue growth optimization: Liliana Offload: To ensure no pressure to the medial ankle/hindfoot Vascular: DP and PT pulses palpable with adequate capillary fill to digits. Edema: Discussed elevation of lower extremities at times of rest. 3M compression wrap placed. Infection: No signs of infection. Rx: Augmentin 875mg BID x 14 days, stop date 11/05/23. He was instructed to take oral antibiotic to completion. Will continue following infectious disease for IV antibiotic outpatient at infusion center for treatment of UTI Pain: May take Tylenol extra strength for discomfort Host factors: Chronic venous insufficiency I answered all the patient's questions. To return to the wound healing center in 1 week or call sooner if the patient has any questions or concerns.
[2023-12-10 09:04] VITALS: BP 142/87; PULSE 68; RESP 20; TEMP 36.3; BMI 28.8
[2023-12-17 09:21] VITALS: BP 143/73; PULSE 71; RESP 18; TEMP 36.2; BMI 28.8
--- NOTE | 2023-12-17 09:38 | PCM.WC.PN ---
History of Present Illness Date of Service: 12/17/23 Chief Complaint: Left medial ankle wound History of Wound: 78-year-old male presents for follow-up on right lateral ankle wound. Presents today due to new blister formation to anterior lateral ankle. typically a patient of Dr. Burns's but presented earlier due to concern for blister. No other complaints today. 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 He continues to change dressings daily with Liliana. He continues to follow with Dr. Mckee regarding his chronic venous insufficiency and will have procedure done next , 12/24/23. States wound continues to improve and is almost healed. Denies constitutional symptoms. Denies further complaints. Objective Data Objective Data Vital Signs: Vital Signs Temp Pulse Resp BP O2 Del Method 97.1 F L 71 18 143/73 H Room Air 12/17/23 09:21 12/17/23 09:21 12/17/23 09:21 12/17/23 09:21 12/17/23 09:21 Oxygen Delivery Method Room Air Weight: 99.159 kg Body Mass Index (BMI) 28.8 Physical Exam Const alert, oriented x3 and no apparent distress General Appearance: cooperative HEENT normocephalic Eyes Eyes Narrative: Wears glasses General Eye: normal appearance of both eyes Neck General: normal visual inspection Lymph Lymphatic: no lymphadenopathy noted and no lymphedema noted Resp normal respiratory effort Cardio regular rate and regular rhythm Extremity normal capillary refill, no joint enlargement, no calf tenderness and no pedal edema Extremity Narrative: Vascular: DP and PT pulses weakly palpable. Capillary fill time to the digits is 5 seconds. Normal temperature gradient. There is absent hair growth to the digits noted. Dermatological: There is ulceration noted to the medial aspect of the left lower extremity/ankle with healthy granular layer and serosanguineous drainage. Ulceration is noted to be overlying the neurovascular bundle. Negative Stemmer sign left foot. There is evidence of stasis dermatitis with hyperpigmentation/hemosiderin staining of the left lower extremity. Musculoskeletal: Muscle strength 5 of 5 age-appropriate. Skin no rashes or lesions noted, skin turgor normal and no jaundice Neuro moves all extremities Debridement Note Debridement Note No debridement was completed: No debridement was completed today Post-Debridement Measurements and Additional Note: Post-Debridement Measurements/Treatment WC - Nurse 1 - General Ulcer Assessment Start: 11/19/23 09:31 Freq: Status: Active Protocol: ANAYA Activity Type Activity Date Activity User E-sign Co-sign Detail Recorded Client Recorded Date Recorded By Document 11/19/23 09:33 KW Desktop 11/19/23 09:44 KW Document 11/26/23 09:22 KW Desktop 11/26/23 09:25 KW Document 12/03/23 09:18 DL Desktop 12/03/23 09:22 DL Document 12/10/23 09:04 DL Desktop 12/10/23 09:13 DL Document 12/17/23 09:21 KW Desktop 12/17/23 09:26 KW 11/19/23 11/26/23 12/03/23 09:33 09:22 09:18 WC - Today's Visit Information Type of service Follow-up Visit Follow-up Visit Follow-up Visit (Physician/SOFTWARE SYSTEMS ARCHITECT (Physician/SOFTWARE SYSTEMS ARCHITECT (Physician/SOFTWARE SYSTEMS ARCHITECT ) ) ) Arrival Mode Ambulatory Ambulatory Ambulatory Transfer Assistance None Patient Identification Verified (Name & Yes Yes Yes ) Patient Requires Transmission-Based No Precautions Height and Weight Body Mass Index (BMI) 28.8 28.8 28.8 BMI Classification Overweight Overweight Overweight Vital Signs Temperature (97.8 F-99.1 F) 94.5 F L 96.7 F L Temperature Source Temporal Temporal Pulse Rate (60-100) 67 71 73 Pulse Location Monitor Monitor Monitor Respiratory Rate (12-18) 18 18 20 H Respiratory rate source Observation Observation Observation Oxygen Delivery Method Room Air Room Air Blood Pressure (90/60-120/80) 164/97 H 137/88 H 131/71 H Blood Pressure Mean (mm Hg) 119 104 91 Source Monitor Monitor Monitor Position Semi-Fowlers Semi-Fowlers Blood Pressure Location Right Forearm Left Arm History Since Last Visit- (Skip if this is Patient's initial visit) Have you changed medications since your No No No last visit? Any new allergies or adverse reactions No No No Had a fall/change in ADL's that may No No No increase risk of falls Signs or symptoms of abuse and/or No No No neglect since last visit Have you been in the hospital since your No No No last visit? Has dressing in place as prescribed Yes Yes Yes Has compression in place as prescribed Yes Yes Yes Has offloadiing in place as prescribed N/A N/A N/A Experienced any changes in pain level or No No No management Left Footwear Regular Shoe Regular Shoe Slipper Right Footwear Regular Shoe Regular Shoe Slipper Pain Scale: 0-10 Numeric Is Patient Pain Free? Yes Yes Yes 12/10/23 12/17/23 09:04 09:21 - Today's Visit Information Type of service Follow-up Visit Follow-up Visit (Physician/SOFTWARE SYSTEMS ARCHITECT (Physician/SOFTWARE SYSTEMS ARCHITECT ) ) Arrival Mode Ambulatory Ambulatory Transfer Assistance None Patient Identification Verified (Name & Yes Yes ) Patient Requires Transmission-Based No Precautions Height and Weight Body Mass Index (BMI) 28.8 28.8 BMI Classification Overweight Overweight Vital Signs Temperature (97.8 F-99.1 F) 97.3 F L 97.1 F L Temperature Source Temporal Temporal Pulse Rate (60-100) 68 71 Pulse Location Monitor Monitor Respiratory Rate (12-18) 20 H 18 Respiratory rate source Observation Observation Oxygen Delivery Method Room Air Blood Pressure (90/60-120/80) 142/87 H 143/73 H Blood Pressure Mean (mm Hg) 105 96 Source Monitor Monitor Position Semi-Fowlers Blood Pressure Location Left Arm History Since Last Visit- (Skip if this is Patient's initial visit) Have you changed medications since your No No last visit? Any new allergies or adverse reactions No No Had a fall/change in ADL's that may No No increase risk of falls Signs or symptoms of abuse and/or No No neglect since last visit Have you been in the hospital since your No No last visit? Has dressing in place as prescribed Yes Yes Has compression in place as prescribed Yes Yes Has offloadiing in place as prescribed N/A N/A Experienced any changes in pain level or No No management Left Footwear Regular Shoe Right Footwear Regular Shoe Pain Scale: 0-10 Numeric Is Patient Pain Free? Yes Yes - Nurse 1 - General Ulcer Measurement Start: 11/19/23 09:31 Freq: Status: Active Protocol: Activity Type Activity Date Activity User E-sign Co-sign Detail Recorded Client Recorded Date Recorded By Document 11/19/23 09:33 KW Desktop 11/19/23 09:44 KW Document 11/26/23 09:22 KW Desktop 11/26/23 09:25 KW Document 12/03/23 09:18 DL Desktop 12/03/23 09:22 DL Document 12/10/23 09:04 DL Desktop 12/10/23 09:13 DL Document 12/17/23 09:21 KW Desktop 12/17/23 09:26 KW 11/19/23 11/26/23 12/03/23 09:33 09:22 09:18 Wound Center Nurse 1 #1 L Med Ankle -Current Size (cm) - Length 1.5 0.1 0.1 -Current Size (cm) - Width 1.5 0.1 0.1 -Current Size (cm) - Depth 0.1 0.1 0.1 -Total Square Cm 2.25 0.01 0.01 -Date of Last Picture (Recall this 11/26/23 field) -Photo Taken Yes -Exudate Amt Medium Small -Exudate Type Serosanguineous Serosanguineous -Wound Margin Distinct, Thickened Outline Attached -Granulation Amt None Present (0 %) -Granulation Quality -Necrosis Amt Large (67-100%) -Necrotic Tissue Type Eschar -Structure Exposed N/A -Texture (Megan-wound Skin Appearance) Assessed Scarring -Moisture (Megan-wound Skin Appearance) Assessed No Abnormality -Color (Megan-wound Skin Appearance) Assessed No Abnormality -Temperature (Megan-wound Skin No Abnormality No Abnormality Appearance) (Pt Warm) (Pt Warm) -Tenderness on Palpation (Megan-wound Skin Appearance) -Ulcer Cleansing Soap and Water Soap and Water Soap and Water -Foul Odor after Cleansing No -Anesthetic Used 5% Lidocaine 5% Lidocaine 5% Lidocaine Gel Gel Gel -Wound Comment(s) SCABBED Right Calf (cm) 36.5 Right Ankle (cm) 24.5 Point of Measurement (cm from the distal point) Left Calf (cm) 36.4 37.3 Point of measurement (cm from the medial instep) Left Ankle (cm) 21.5 22 12/10/23 12/17/23 09:04 09:21 Wound Center Nurse 1 #1 L Med Ankle -Current Size (cm) - Length 1.1 0.1 -Current Size (cm) - Width 1.2 0.1 -Current Size (cm) - Depth 0.1 0.1 -Total Square Cm 1.32 0.01 -Date of Last Picture (Recall this 12/17/23 field) -Photo Taken Yes -Exudate Amt Small -Exudate Type Serosanguineous -Wound Margin Distinct, Outline Attached -Granulation Amt Medium (34-66%) -Granulation Quality [place],Red -Necrosis Amt Medium (34-66%) -Necrotic Tissue Type Adherent Slough -Structure Exposed N/A -Texture (Megan-wound Skin Appearance) Localized Edema ,Scarring -Moisture (Megan-wound Skin Appearance) No Abnormality -Color (Megan-wound Skin Appearance) Erythema -Temperature (Megan-wound Skin No Abnormality Appearance) (Pt Warm) -Tenderness on Palpation (Megan-wound No Skin Appearance) -Ulcer Cleansing Soap and Water Soap and Water -Foul Odor after Cleansing No -Anesthetic Used 5% Lidocaine 5% Lidocaine Gel Gel -Wound Comment(s) C/O Increased scabbed pain to ulcer this week Right Calf (cm) Right Ankle (cm) Point of Measurement (cm from the distal 36.5 point) Left Calf (cm) 46.4 Point of measurement (cm from the medial 21 instep) Left Ankle (cm) 21.4 WC - Nurse 2 - General Ulcer CM Notes Start: 11/19/23 09:31 Freq: Status: Active Protocol: Activity Type Activity Date Activity User E-sign Co-sign Detail Recorded Client Recorded Date Recorded By Document 11/19/23 10:33 PL Tablet 11/19/23 10:38 PL Document 11/26/23 12:02 PL [id number] 11/26/23 12:04 PL Document 12/03/23 09:50 PL Tablet 12/03/23 09:51 PL Document 12/10/23 12:10 PL [id number] 12/10/23 12:10 PL Document 12/17/23 09:34 JF Laptop 12/17/23 09:34 JF 11/19/23 11/26/23 12/03/23 10:33 12:02 09:50 Wound Center Nurse 2 #1 L Med Ankle -Time 09:55 09:38 09:35 -Correct Patient Yes Yes Yes -Correct Side, Site, Position Yes Yes Yes -Correct Procedure Yes Yes Yes -Procedure Performed Yes Yes Yes -Type of Procedure Debridement Debridement Debridement -Clinical Debridement Subcutaneous Subcutaneous Subcutaneous -Tissue Removed Subcutaneous Subcutaneous Subcutaneous -Post Debridement (cm) - Length 1.3 1.0 0.5 -Post Debridement (cm) - Width 0.7 1.1 0.7 -Post Debridement (cm) - Depth 0.1 0.1 0.1 -Total Square (Post) (cm) 0.91 1.10 0.35 -Area of Debridement (cm) - Length 1.3 1.0 0.5 -Area of Debridement (cm) - Width 0.7 1.1 0.7 -Total Square (Area) (cm) 0.91 1.10 0.35 -Tunneling No No No -Undermining/Tunneling No No No -Circular Undermining No No No -Wound/Ulcer Outcome Not Healed Not Healed Not Healed -Ulcer Cleansing Rinsed/ Rinsed/ Rinsed/ Irrigated with Irrigated with Irrigated with Saline Saline Saline -Foul Odor after Cleansing No No No -Bioengineered Tissue Yes Yes -Type of Bioengineered Tissue Epifix 18mm Epifix 18mm Disc Disc -Expiration Date 07/19/28 07/19/28 -Product Lot Number [id number] -Percent Used 100 100 -Bleeding Controlled with Pressure Pressure Pressure -Treatment Response Procedure Procedure Procedure Tolerated Well Tolerated Well Tolerated Well -Debridement - Subq, 1st 20sq cm No No Yes -Apply Skin Sub - 1st 25 sq cm - Legs 1 1 -Epifix 18mm Disc 3 3 Pain Scale: 0-10 Numeric Is Patient Pain Free? Yes Yes Yes 12/10/23 12/17/23 12:10 09:34 Wound Center Nurse 2 #1 L Med Ankle -Time 09:31 -Correct Patient Yes No -Correct Side, Site, Position Yes No -Correct Procedure Yes No -Procedure Performed Yes No -Type of Procedure Debridement -Clinical Debridement Subcutaneous -Tissue Removed Subcutaneous -Post Debridement (cm) - Length 0.5 0.1 -Post Debridement (cm) - Width 0.5 0.1 -Post Debridement (cm) - Depth 0.1 0.1 -Total Square (Post) (cm) 0.25 0.01 -Area of Debridement (cm) - Length 0.5 0.1 -Area of Debridement (cm) - Width 0.5 0.1 -Total Square (Area) (cm) 0.25 0.01 -Tunneling No -Undermining/Tunneling No -Circular Undermining No -Wound/Ulcer Outcome Not Healed Not Healed -Ulcer Cleansing Rinsed/ Irrigated with Saline -Foul Odor after Cleansing No -Bioengineered Tissue No -Type of Bioengineered Tissue -Expiration Date -Product Lot Number -Percent Used -Bleeding Controlled with Pressure -Treatment Response Procedure Tolerated Well -Debridement - Subq, 1st 20sq cm Yes -Apply Skin Sub - 1st 25 sq cm - Legs -Epifix 18mm Disc Pain Scale: 0-10 Numeric Is Patient Pain Free? Yes Yes - Nurse 3 - General Ulcer D/C NN Start: 11/19/23 09:31 Freq: Status: Active Protocol: Activity Type Activity Date Activity User E-sign Co-sign Detail Recorded Client Recorded Date Recorded By Document 11/19/23 10:07 KW [employer] 11/19/23 10:07 KW Document 11/26/23 09:59 JF Laptop 11/26/23 09:59 JF Document 12/03/23 09:45 KW Desktop 12/03/23 09:46 KW Document 12/10/23 09:37 [x+1] Desktop 12/10/23 09:38 KW 11/19/23 11/26/23 12/03/23 10:07 09:59 09:45 Wound Care Center Nurse 3 #1 L Med Ankle -Primary Dressing Applied Optilok 6.5x10 Promogran Liliana Matter -Primary Dressing Covered/Secured with Dry Gauze & Dry Gauze & Roll Gauze, Roll Gauze, Secured with Secured with Tape Tape -Other Covering adb pad -Optilok 6.5x10 1 -Promogran Liliana Matter 1 Left -Lotion applied to leg before Yes compression wrap -Multi-Layered Wrap Application Multi-Layer Multi-Layer Multi-Layer Comp - Left ($) Comp - Left ($) Comp - Left ($) Pain Scale: 0-10 Numeric Is Patient Pain Free? Yes Yes Yes - Visit Discharge Discharge Condition Stable Stable Stable Ambulatory Status Ambulatory Ambulatory Ambulatory Transportation Private Auto Private Auto Private Auto Medication Reconcilliation completed & No Yes No provided to patient/care provider Clinical Summary of Care Provided Yes Yes Yes 12/10/23 09:37 Wound Care Center Nurse 3 #1 L Med Ankle -Primary Dressing Applied Promogran Liliana Matter -Primary Dressing Covered/Secured with Dry Gauze & Roll Gauze, Secured with Tape -Other Covering -Optilok 6.5x10 -Promogran Liliana Matter 1 Left -Lotion applied to leg before compression wrap -Multi-Layered Wrap Application Multi-Layer Comp - Left ($) Pain Scale: 0-10 Numeric Is Patient Pain Free? Yes WC - Visit Discharge Discharge Condition Stable Ambulatory Status Ambulatory Transportation Private Auto Medication Reconcilliation completed & No provided to patient/care provider Clinical Summary of Care Provided Yes Assessment/Plan Assessment/Plan (1) Non-pressure chronic ulcer of left ankle with necrosis of muscle: CODE(S): L97.323 - Non-pressure chronic ulcer of left ankle with necrosis of muscle (2) Delayed wound healing: CODE(S): T14.8XXD - Other injury of unspecified body region, subsequent encounter (3) Venous insufficiency (chronic) (peripheral): CODE(S): I87.2 - Venous insufficiency (chronic) (peripheral) (4) Bacterial infection due to Pseudomonas: CODE(S): A49.8 - Other bacterial infections of unspecified site (5) Iron deficiency anemia: CODE(S): D50.9 - Iron deficiency anemia, unspecified (6) Obesity: CODE(S): E66.9 - Obesity, unspecified PLAN: Plan Patient seen and evaluated Left lower extremity: There is ulceration noted to the medial aspect of the left lower extremity/ankle with healthy granular tissue with some serosanguineous drainage. Ulceration is noted to be overlying the neurovascular bundle. Negative Stemmer sign left foot. There is evidence of stasis dermatitis with hyperpigmentation/hemosiderin staining of the left lower extremity. Ulceration underwent debridement as noted in the clinical panel above. Ulceration measures 0.1 cm x 0.1 cm x 0.1 cm. No signs of infection. Skin maceration resolved with less drainage and wound is granulating in well. He has completed all 10 EpiFix graft applications. Liliana applied to the wound base today with dry sterile dressing. 3M compression wrap applied to lower extremity. He was instructed to not get the dressing wet. Ulceration continues to demonstrate reduction in size versus previous visits and is almost healed. Overall tissue continues improvement with minimal drainage. Discussed if he soaks through dressing to call and return for new dressing/compression wrap application. I discussed continued elevation of the lower extremity at all times of rest to aid in edema control. I discussed once ulceration is healed he is to return to a prescription based compression stocking. Discussed updating stockings every 6 to 9 months to ensure proper uniform compression to treat his chronic venous insufficiency and to reduce recidivism of wound. LEAS performed 09/02/23 demonstrates right RONEN 1.31, normal. TBI and Doppler/PVR waveforms of right leg normal at rest; left RONEN 1.38, normal. TBI and Doppler/PVR waveforms of the left leg normal at rest. Venous studies performed 09/02/2023 demonstrates no evidence of bilateral lower extremity DVT. Bilateral great saphenous veins appear patent and compressible segmentally. Positive for reflux right popliteal vein, great saphenous vein in. Positive for reflux left popliteal vein, saphenofemoral junction. He did see Dr. Mckee in office and plan is for venogram to assess for central obstruction, he will continue to follow with vascular. Procedure to take place 12/24/23. Discussed proper diet to increase protein intake to aid in wound healing. Recommended Vladimir supplementation. Discussed reducing foods with salty content to aid in edema control. Discussed avoidance of prolonged standing or legs dangling over side of chair/bed. Discussed with patient the depth of the ulcerative site and close proximity to the neurovascular bundle. Discussed with him signs and symptoms of infection. Discussed if he notices redness about the ulcerative site moving up the leg, purulent drainage from the wound site, foul increasing odor from the wound, or if he experiences fever greater than 101 degree, nausea, vomiting, chills/rigor, that these are signs of progressing infection and he should report to the ED to receive IV antibiotics. Patient and voiced understanding of this. The following work up and care recommendations were made: Dressing: Liliana, dry sterile dressing, 3M compression wrap left lower extremity. Wash: Soap and water Tissue growth optimization: Liliana Offload: To ensure no pressure to the medial ankle/hindfoot Vascular: DP and PT pulses palpable with adequate capillary fill to digits. Edema: Discussed elevation of lower extremities at times of rest. 3M compression wrap placed. Infection: No signs of infection. Pain: May take Tylenol extra strength for discomfort Host factors: Chronic venous insufficiency He will remove 3M compression wrap night before the procedure or day of and undergo venogram with Dr. Mckee on 12/24/2023. He will then come to wound care center 12/25/2023 for application of new 3M compression wrap and then will follow with me for final wound check 12/31/2023. I answered all the patient's questions. To return to the wound healing center in 2 weeks or call sooner if the patient has any questions or concerns.
== END 2023-12-17 23:59 | disposition home or self-care (01) ==
LOC: WC 09:30
PROVIDERS: PCP Family Medicine; Referring Provider Family Medicine; Visit Provider Student in an Organized Health Care Education/Training Program
DX: L97.323 Non-pressure chronic ulcer of left ankle with necrosis of muscle (principal); I87.2 Venous insufficiency (chronic) (peripheral); T14.8XXD Other injury of unspecified body region, subsequent encounter; D50.9 Iron deficiency anemia, unspecified; E66.9 Obesity, unspecified; A49.8 Other bacterial infections of unspecified site; Z68.28 Body mass index [BMI] 28.0-28.9, adult
CPT/HCPCS: 11042; 15271; 29581; Q4186

== ENCOUNTER 2023-12-18 13:37 | Outpatient (CLI) | payer MEDICARE, OTHER, SELFPAY ==
[2023-12-18 13:41] VITALS: BP 142/74; PULSE 78; RESP 16; TEMP 36; O2SAT 98; BMI 29.5
[2023-12-18] MEDS: Benralizumab 30 MG/ML Syringe SC (13:53)
== END 2023-12-18 13:38 | disposition home or self-care (01) ==
LOC: MEDOUTP 13:37
PROVIDERS: PCP Family Medicine; Referring Provider Nurse Practitioner Acute Care; Visit Provider Nurse Practitioner Acute Care
DX: J45.50 Severe persistent asthma, uncomplicated (principal)
CPT/HCPCS: 96372; J0517

== ENCOUNTER 2023-12-31 09:30 | Outpatient (RCR) | payer MEDICARE, OTHER, SELFPAY ==
[2023-12-18 00:28] VITALS: BP 143/73; PULSE 71; RESP 18; TEMP 36.2; BMI 28.8
[2023-12-25 11:36] VITALS: BP 142/63; PULSE 70; RESP 18; TEMP 36.7; BMI 28.8
[2023-12-31 09:42] VITALS: BP 141/81; PULSE 67; RESP 18; TEMP 36.1; BMI 28.8
--- NOTE | 2023-12-31 10:20 | PCM.WC.PN ---
History of Present Illness Date of Service: 12/31/23 Chief Complaint: Left medial ankle wound History of Wound: 78-year-old male presents for follow-up on right lateral ankle wound. Presents today due to new blister formation to anterior lateral ankle. typically a patient of Dr. Burns's but presented earlier due to concern for blister. No other complaints today. 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 He continues to change dressings daily with Liliana. He continues to follow with Dr. Mckee regarding his chronic venous insufficiency and will have procedure done on 01/06/24. States the procedure was delayed but he will be getting this done. States wound continues to improve. Denies constitutional symptoms. Denies further complaints. Objective Data Objective Data Vital Signs: Vital Signs Temp Pulse Resp BP O2 Del Method 96.9 F L 67 18 141/81 H Room Air 12/31/23 09:42 12/31/23 09:42 12/31/23 09:42 12/31/23 09:42 12/31/23 09:42 Oxygen Delivery Method Room Air Weight: 99.159 kg Body Mass Index (BMI) 28.8 Physical Exam Const alert, oriented x3 and no apparent distress General Appearance: cooperative HEENT normocephalic Eyes General Eye: normal appearance of both eyes Neck General: normal visual inspection Lymph Lymphatic: no lymphadenopathy noted and no lymphedema noted Resp normal respiratory effort Cardio regular rate and regular rhythm Extremity normal capillary refill, no joint enlargement, no calf tenderness and no pedal edema Extremity Narrative: Vascular: DP and PT pulses weakly palpable. Capillary fill time to the digits is 5 seconds. Normal temperature gradient. There is absent hair growth to the digits noted. Dermatological: There is ulceration noted to the medial aspect of the left lower extremity/ankle with fresh epithelialization. Ulcer noted to be healed. Negative Stemmer sign left foot. There is evidence of stasis dermatitis with hyperpigmentation/hemosiderin staining of the left lower extremity. Musculoskeletal: Muscle strength 5 of 5 age-appropriate. Skin no rashes or lesions noted, skin turgor normal and no jaundice Neuro moves all extremities Debridement Note Debridement Note No debridement was completed: No debridement was completed today Post-Debridement Measurements and Additional Note: Post-Debridement Measurements/Treatment WC - Nurse 1 - General Ulcer Assessment Start: 12/25/23 11:36 Freq: Status: Active Protocol: ANAYA Activity Type Activity Date Activity User E-sign Co-sign Detail Recorded Client Recorded Date Recorded By Document 12/25/23 11:36 KW Desktop 12/25/23 11:42 KW Document 12/31/23 09:42 KW Desktop 12/31/23 09:51 KW 12/25/23 12/31/23 11:36 09:42 - Today's Visit Information Type of service Nurse-only Follow-up Visit Visit (Physician/LAP [facility]ER ) Arrival Mode Ambulatory Ambulatory Patient Identification Verified (Name & Yes Yes ) Height and Weight Body Mass Index (BMI) 28.8 28.8 BMI Classification Overweight Overweight Vital Signs Temperature (97.8 F-99.1 F) 98.0 F 96.9 F L Temperature Source Temporal Temporal Pulse Rate (60-100) 70 67 Pulse Location Monitor Monitor Respiratory Rate (12-18) 18 18 Respiratory rate source Observation Observation Oxygen Delivery Method Room Air Room Air Blood Pressure (90/60-120/80) 142/63 H 141/81 H Blood Pressure Mean (mm Hg) 89 101 Source Monitor Monitor Position Semi-Fowlers Semi-Fowlers Blood Pressure Location Left Arm Left Arm History Since Last Visit- (Skip if this is Patient's initial visit) Have you changed medications since your No No last visit? Any new allergies or adverse reactions No No Had a fall/change in ADL's that may No No increase risk of falls Signs or symptoms of abuse and/or No No neglect since last visit Have you been in the hospital since your No No last visit? Has dressing in place as prescribed Yes Yes Has compression in place as prescribed Yes Yes Has offloadiing in place as prescribed N/A N/A Experienced any changes in pain level or No No management Left Footwear Regular Shoe Regular Shoe Right Footwear Regular Shoe Regular Shoe Pain Scale: 0-10 Numeric Is Patient Pain Free? Yes Yes - Nurse 1 - General Ulcer Measurement Start: 12/25/23 11:36 Freq: Status: Active Protocol: Activity Type Activity Date Activity User E-sign Co-sign Detail Recorded Client Recorded Date Recorded By Document 12/25/23 11:36 KW Desktop 12/25/23 11:42 KW Document 12/31/23 09:42 KW [employer] 12/31/23 09:51 KW 12/25/23 12/31/23 11:36 09:42 Wound Center Nurse 1 #1 L Med Ankle -Current Size (cm) - Length 0.1 -Current Size (cm) - Width 0.1 -Current Size (cm) - Depth 0.1 -Total Square Cm 0.01 -Texture (Megan-wound Skin Appearance) Assessed -Moisture (Megan-wound Skin Appearance) Assessed -Color (Megan-wound Skin Appearance) Assessed -Temperature (Megan-wound Skin No Abnormality Appearance) (Pt Warm) -Ulcer Cleansing Soap and Water -Anesthetic Used 5% Lidocaine Gel -Wound Comment(s) ULCER SCABBED OVER AT THIS TIME Left Calf (cm) 38.3 37 Left Ankle (cm) 23 21 WC - Nurse 2 - General Ulcer CM Notes Start: 12/25/23 11:36 Freq: Status: Active Protocol: Activity Type Activity Date Activity User E-sign Co-sign Detail Recorded Client Recorded Date Recorded By Document 12/31/23 09:54 [facility] [employer] 12/31/23 10:01 [facility] 12/31/23 09:54 Wound Center Nurse 2 #1 L Med Ankle -Time 09:54 -Correct Patient Yes -Correct Side, Site, Position Yes -Correct Procedure Yes -Procedure Performed Yes -Post Debridement (cm) - Length 0 -Post Debridement (cm) - Width 0 -Post Debridement (cm) - Depth 0 -Total Square (Post) (cm) 0 -Area of Debridement (cm) - Length 0 -Area of Debridement (cm) - Width 0 -Total Square (Area) (cm) 0 -Tunneling No -Undermining/Tunneling No -Circular Undermining No -Wound/Ulcer Outcome Healed- Epithelialized -Ulcer Cleansing Rinsed/ Irrigated with Saline Pain Scale: 0-10 Numeric Is Patient Pain Free? Yes - Nurse 3 - General Ulcer D/C NN Start: 12/25/23 11:36 Freq: Status: Active Protocol: Activity Type Activity Date Activity User E-sign Co-sign Detail Recorded Client Recorded Date Recorded By Document 12/25/23 11:36 [employer] 12/25/23 11:42 KW Document 12/31/23 10:01 [facility] [employer] 12/31/23 10:02 [facility] 12/25/23 12/31/23 11:36 10:01 Vital Signs Temperature (97.8 F-99.1 F) 98.0 F Temperature Source Temporal Pulse Rate (60-100) 70 Pulse Location Monitor Respiratory Rate (12-18) 18 Respiratory rate source Observation Oxygen Delivery Method Room Air Blood Pressure (90/60-120/80) 142/63 H Blood Pressure Mean (mm Hg) 89 Source Monitor Position Semi-Fowlers Blood Pressure Location Left Arm Pain Scale: 0-10 Numeric Is Patient Pain Free? Yes Yes Wound Care Center Nurse 3 #1 L Med Ankle -Primary Dressing Applied Promogran Optilok 6.5x10 Liliana Matter -Primary Dressing Covered/Secured with Dry Gauze & Dry Gauze Roll Gauze, Secured with Tape -NPWT pad and protect -Optilok 6.5x10 1 -Promogran Liliana Matter 1 Left -Multi-Layered Wrap Application Multi-Layer Comp - Left ($) -Tubular Bandage Single Layer -Size of Tubigrip Used Size D -Size D ($) 2 -Other sent extra. to wear until gets compression stockings WC - Visit Discharge Discharge Condition Stable Stable Ambulatory Status Ambulatory Ambulatory Transportation Private Auto Private Auto Medication Reconcilliation completed & No provided to patient/care provider Clinical Summary of Care Provided Yes Assessment/Plan Assessment/Plan (1) Delayed wound healing: CODE(S): T14.8XXD - Other injury of unspecified body region, subsequent encounter (2) Non-pressure chronic ulcer of left ankle with necrosis of muscle: CODE(S): L97.323 - Non-pressure chronic ulcer of left ankle with necrosis of muscle (3) Venous insufficiency (chronic) (peripheral): CODE(S): I87.2 - Venous insufficiency (chronic) (peripheral) (4) Obesity: CODE(S): E66.9 - Obesity, unspecified (5) Iron deficiency anemia: CODE(S): D50.9 - Iron deficiency anemia, unspecified PLAN: Plan Patient seen and evaluated Left lower extremity: There is ulceration noted to the medial aspect of the left lower extremity/ankle with healthy granular tissue with some serosanguineous drainage. Ulceration is noted to be overlying the neurovascular bundle. Negative Stemmer sign left foot. There is evidence of stasis dermatitis with hyperpigmentation/hemosiderin staining of the left lower extremity. Ulceration has healed today. No signs of infection. Discussed applying protective Band-Aid over the fresh sensitive skin for the next 7 to 10 days. He is to continue to wear double Tubigrip stocking and following the 7 to 10-day. Transition to his prescription compression stockings to prevent recidivism of wound. I discussed continued elevation of the lower extremity at all times of rest to aid in edema control. I discussed once ulceration is healed he is to return to a prescription based compression stocking. Discussed updating stockings every 6 to 9 months to ensure proper uniform compression to treat his chronic venous insufficiency and to reduce recidivism of wound. LEAS performed 09/02/23 demonstrates right RONEN 1.31, normal. TBI and Doppler/PVR waveforms of right leg normal at rest; left RONEN 1.38, normal. TBI and Doppler/PVR waveforms of the left leg normal at rest. Venous studies performed 09/02/2023 demonstrates no evidence of bilateral lower extremity DVT. Bilateral great saphenous veins appear patent and compressible segmentally. Positive for reflux right popliteal vein, great saphenous vein in. Positive for reflux left popliteal vein, saphenofemoral junction. He did see Dr. Mckee in office and plan is for venogram to assess for central obstruction, he will continue to follow with vascular. Procedure to take place 01/06/24. Discussed proper diet to increase protein intake to aid in wound healing. Recommended Vladimir supplementation. Discussed reducing foods with salty content to aid in edema control. Discussed avoidance of prolonged standing or legs dangling over side of chair/bed. Discussed with patient the depth of the ulcerative site and close proximity to the neurovascular bundle. Discussed with him signs and symptoms of infection. Discussed if he notices redness about the ulcerative site moving up the leg, purulent drainage from the wound site, foul increasing odor from the wound, or if he experiences fever greater than 101 degree, nausea, vomiting, chills/rigor, that these are signs of progressing infection and he should report to the ED to receive IV antibiotics. Patient and voiced understanding of this. The following work up and care recommendations were made: Dressing: Band-Aid/dry sterile dressing for next 7 to 10 days for protection, double Tubigrip stocking. Wash: Soap and water Tissue growth optimization: None Offload: To ensure no pressure to the medial ankle/hindfoot Vascular: DP and PT pulses palpable with adequate capillary fill to digits. Edema: Discussed elevation of lower extremities at times of rest. Continue compression stockings. Infection: No signs of infection. Pain: May take Tylenol extra strength for discomfort Host factors: Chronic venous insufficiency He will undergo venogram with Dr. Mckee on 01/06/2024. At this time his wound is healed and he is being discharged from the wound center today I answered all the patient's questions. To return to the wound healing center as needed or call sooner if the patient has any questions or concerns.
== END 2023-12-31 15:57 | disposition home or self-care (01) ==
LOC: WC 09:30
PROVIDERS: PCP Family Medicine; Referring Provider Family Medicine; Visit Provider Student in an Organized Health Care Education/Training Program
DX: I87.2 Venous insufficiency (chronic) (peripheral) (principal); L97.323 Non-pressure chronic ulcer of left ankle with necrosis of muscle; T14.8XXD Other injury of unspecified body region, subsequent encounter; E66.9 Obesity, unspecified; D50.9 Iron deficiency anemia, unspecified
CPT/HCPCS: 29581; 99214; G0463

== ENCOUNTER 2024-01-06 06:52 | Day surgery (SDC) | payer MEDICARE, OTHER, SELFPAY ==
[2024-01-05 09:28] VITALS: BMI 30.4
[2024-01-06 07:17] LABS: Hematocrit 34.6 % (40-54); Hemoglobin 11.5 g/dL (13.0-16.5); Mean Corp Hgb Conc 33.2 g/dL (32-36); Mean Corpuscular Hgb 31.6 pg (27.0-32.0); Mean Corpuscular Volume 95.1 fL (80-94); Mean Platelet Vol. 9.9 fl (6.2-12.0); Platelet Count 174 K/mm3 (150-450); RBC Distribution Width CV 13.8 % (11.6-14.6); RBC Distribution Width SD 48.7 fl (35.1-43.9); Red Blood Count 3.64 M/mm3 (4.6-6.2); White Blood Count 3.1 K/mm3 (4.4-11.0)
[2024-01-06 07:35] LABS: Anion Gap 6 (5-15); BUN 19 mg/dL (7-18); BUN/Creat Ratio 22.2 RATIO (10-20); Calcium,Total 9.2 mg/dL (8.5-10.1); Chloride 111 mmol/L (98-107); Creatinine, Serum 0.85 mg/dL (0.70-1.30); EST Glomerular Filtration Rate 92 mL/min (>60); Est Glom Filt Rate - Afr Amer 112 mL/min (>60); Estimated Creatinine Clearance 89.77 ml/min; Glucose 94 mg/dL (74-106); Potassium 3.9 mmol/L (3.5-5.1); Sodium Level 142 mmol/L (136-145)
--- NOTE | 2024-01-06 08:13 | PCM.HP.STD ---
HPI - General HPI Narrative EVA GONZALEZ, is a 78 M who presents with left lower extremity venous ulceration, deep reflux and SFJ reflux. His wounds are improving with local care and compression though still weeping. Here for venogram to assess for central obstruction [facility] Medical History 2011 femur fracture [facility] Asthma Celiac disease DVT (deep venous thrombosis) Fatigue GERD (gastroesophageal reflux disease) History of back problems Iron deficiency anemia Lab test positive for detection of COVID-19 virus (~04/2020) Left femoral shaft fracture JOSHUA (obstructive sleep apnea) Osteopenia Restless leg syndrome Weight loss Home Medications pantoprazole 40 mg tablet,delayed release 40 mg PO QHS gerd 04/03/14 [History Last Taken 07/15/17] tamsulosin 0.4 mg capsule 0.4 mg PO QHS Enlarged prostate 07/12/17 [History Last Taken 01/06/24] ibuprofen 200 mg capsule 200 mg PO BID PRN Pain 09/10/18 [History Last Taken Unknown] ergocalciferol (vitamin D2) 1,250 mcg (50,000 unit) capsule 50,000 unit PO WE 10/21/19 [History Last Taken Unknown] benralizumab 30 mg/mL subcutaneous syringe (Fasenra) 30 mg subcut Q4W #1 mL 12/28/20 [Rx Last Taken Unknown] levothyroxine 50 mcg tablet 100 mcg PO DAILY 03/21/22 [History Last Taken 01/06/24] fluticasone propionate 50 mcg/actuation nasal spray,suspension 2 spray NASAL BID PRN Congestion #16 grams 03/25/22 [Rx Last Taken Unknown] albuterol sulfate 90 mcg/actuation aerosol inhaler 1 - 2 puff inhalation Q4H PRN PRN Sob &/Or Wheezing #8.5 grams 09/22/23 [Rx Last Taken Unknown] budesonide-formoterol HFA 160 mcg-4.5 mcg/actuation aerosol inhaler (Symbicort) 2 puff inhalation BID PRN asthma 11/25/23 [History Last Taken Unknown] latanoprost 0.005 % eye drops 1 drp ophthalmic (eye) DAILY 11/25/23 [History Last Taken Unknown] pramipexole 1.5 mg tablet 1.5 mg PO DAILY 11/25/23 [History Last Taken Unknown] finasteride 5 mg tablet 5 mg PO DAILY 01/05/24 [History Last Taken Unknown] Allergy/AdvReac Type Severity Reaction Status Date / Time gluten AdvReac Other Verified 12/18/23 13:40 Family History Father prostate cancer Surgical History colonoscopy History of cholecystectomy History of colonoscopy (~09/24/20) History of esophagogastroduodenoscopy (EGD) (~09/24/20) History of hernia repair History of repair of hip fracture History of spinal surgery (~2017) Social History Smoking Status: Former smoker alcohol intake: never substance use type: does not use ROS Constitutional Constitutional: Denies chills, fever(s), frequent falls, lethargy or weakness Eyes Eyes: Denies blind spots, change in vision or loss of vision ENT HEENT: Denies bleeding gums, hoarseness or sore throat Cardiovascular Cardiovascular: Denies abdominal pain, bluish discoloration of hand/feet, chest pain with activity, claudication, cold extremities, cyanosis, dyspnea on exertion, erythema on extremities, irregular heart rhythm, leg edema, leg ulcers, numbness in extremities or weakness in extremities Respiratory/Chest Respiratory/Chest: Denies cough, excessive phlegm production, shortness of breath at rest, shortness of breath with exertion or wheezing Gastrointestinal Gastrointestinal: Denies anorexia, change in stool character, constipation, diarrhea, melena or rectal bleeding Genitourinary Genitourinary: Denies dysuria or hematuria Musculoskeletal Musculoskeletal: Denies abnormal gait Integumentary Integumentary: Reports other Details: ; Denies erythema, non-healing lesions or wounds Neurologic Neurologic: Denies abnormal speech, focal weakness, headache(s), loss of vision, numbness, paresthesias or sensory deficit Hematologic/Lymphatic Hematologic/Lymphatic: Denies easy bleeding, easy bruising or lymphadenopathy Vital Signs Vital Signs Vital Signs: Weight Weight: 224 lb Body Mass Index (BMI) 30.4 Physical Exam Const alert, oriented x3, no apparent distress and healthy appearing General Appearance: cooperative; Negative for combative or lethargic Orientation / Consciousness: awake Exam Limitations: no limitations HEENT Head and Scalp: normocephalic and atraumatic Eyes EOMs intact bilaterally General Eye: normal appearance of both eyes Neck full ROM, no lymphadenopathy, thyroid normal and No no carotid bruits General: trachea midline; Negative for lymphadenopathy or tenderness Thyroid: thyroid normal Lymph Lymphatic: Negative for no lymphadenopathy noted Resp normal respiratory effort and no use of accessory muscles Effort and Inspection: Negative for labored, stridor or audible wheezes Cardio regular rate and regular rhythm Back/Spine Cervical Spine: cervical ROM normal Extremity full ROM, normal capillary refill and no clubbing, cyanosis or edema Skin no rashes or lesions noted and no wounds Neuro oriented x3, CN's II-XII intact bilaterally, no focal motor deficits and no sensory deficits noted Psych thought process normal, cooperative, affect normal, speech normal and activity/motor behavior normal Results Lab / Micro Data 01/06/24 06:58 01/06/24 06:58 Labs: Laboratory Results - last 24 hr 01/06/24 06:58: WBC 3.1 L, RBC 3.64 L, Hgb 11.5 L, Hct 34.6 L, MCV 95.1 H, MCH 31.6, MCHC 33.2, RDW Std Deviation 48.7 H, RDW Coeff of Melida 13.8, Plt Count 174, MPV 9.9, Sodium 142, Potassium 3.9, Chloride 111 H, Carbon Dioxide 25.0, Anion Gap 6, BUN 19 H, Creatinine 0.85, Estim Creat Clear Calc 89.77, Est GFR (MDRD) Af Amer 112, Est GFR (MDRD) Non-Af 92, BUN/Creatinine Ratio 22.2 H, Glucose 94, Calcium 9.2 Assessment & Plan Assessment/Plan (1) Ulcer of extremity due to chronic venous insufficiency: PLAN: -venogram
--- NOTE | 2024-01-06 09:20 | OP.PCM_ITS ---
Report of Operation Date of Procedure: 01/06/24 Pre-Operative Diagnosis: venous insufficiency with ulceration Post-Operative Diagnosis: same Surgery/Procedure Performed:: IVC venogram IVUS IVC, left common/external iliac veins Surgeon: Murray Mckee Type of Anesthesia: Local and Sedation,Conscious Estimated Blood Loss (mL): 1 Description of Procedure: HPI: Patient is a 78-year-old male with venous ulceration of the left lower extremity with minimal reflux. He is taken now for venogram to assess for central obstruction contributing to his venous insufficiency. Description of procedure: Upon obtaining informed consent and verification correct patient procedure site patient taken to the Interactive Video Techn[facility] where he was positioned prepped and draped in usual sterile fashion. Time was performed consultation administered Versed and fentanyl. Skin overlying the left common femoral vein was anesthetized 1% lidocaine the vessel accessed under ultrasound guidance with a micropuncture needle and wire. This was exchanged out for micropuncture sheath through which injection ilio caval venogram was performed which revealed satisfactory positioning and no extravasation or dissection. This also revealed brisk contrast transit with normal caliber left external and common iliac veins as well as a normal-appearing vena cava. Through this a Tradoria wire was advanced and the micropuncture sheath exchanged out for an 8 Frisian sheath. Through the 8 Frisian sheath and intravascular ultrasound probe was advanced into the vena cava and recorded pullback performed of the IVC, left common iliac vein, left external iliac vein. This revealed normal caliber vessels with minimal compression of approximate 32% of the mid common iliac vein. Seeing no significant obstruction or compression no intervention was undertaken so the wire and catheter withdrawn. The sheath was then withdrawn a minute pressure held for 10 minutes after which satisfactory stasis was noted. The patient was then taken to recovery for bedrest prior to discharge to home.
== END 2024-01-06 11:10 | disposition home or self-care (01) ==
PROVIDERS: PCP Family Medicine; Referring Provider Surgery Trauma Surgery; Visit Provider Surgery Trauma Surgery
DX: I87.1 Compression of vein (principal); L97.929 Non-pressure chronic ulcer of unspecified part of left lower leg with unspecified severity; I87.2 Venous insufficiency (chronic) (peripheral); Z87.891 Personal history of nicotine dependence; Z86.718 Personal history of other venous thrombosis and embolism; D50.9 Iron deficiency anemia, unspecified; Z79.899 Other long term (current) drug therapy; Z79.890 Hormone replacement therapy; K21.9 Gastro-esophageal reflux disease without esophagitis; J45.909 Unspecified asthma, uncomplicated
CPT/HCPCS: 36010; 36415; 37252; 37253; 75825; 76937; 80048; 85027; 99152; 99153; C1753; C1769; C1894; J7040; Q9967

== ENCOUNTER 2024-01-14 09:23 | Outpatient (RCR) | payer MEDICARE, OTHER, SELFPAY ==
[2024-01-14 09:32] VITALS: BP 142/69; PULSE 69; RESP 18; TEMP 35.8
--- NOTE | 2024-01-14 10:29 | PN.PCM_ITS ---
History of Present Illness Date of Service: 01/14/24 Chief Complaint: Left medial ankle wound History of Wound: Patient is a 78-year-old male who presents to the wound care center with recurring left lower extremity medial ankle wound. He has PMHx of recurring left lower extremity ulceration secondary to chronic venous insufficiency, history of DVT, obesity, JOSHUA, iron deficient anemia, delayed wound healing, and asthma. He states that he does have compression stockings but his stockings are old. He had been following in the wound care center for a deep ulceration to the medial aspect of the left lower extremity overlying the neurovascular bundle. He did go on to heal this ulceration as of 12/31/[address] Mckee for venogram the following week. He states he did return to the compression stockings however feels that he has opened up with return of the ulceration at the medial left lower extremity. He denies trauma to the site. States that the specific site is recurrent with breakdown of skin. Denies N/V/F/chills. No further complaints. 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 States that during visit with Dr. Mckee for the venogram no blockages were found. He states that he did return to the wearing the compression stockings however feels that the wound is trying to open up again as he had scant amount of drainage from the previous ulcer site he returns today for reevaluation of the site. Denies constitutional symptoms. Denies further complaints. Objective Data Objective Data Vital Signs: Vital Signs Temp Pulse Resp BP O2 Del Method 96.5 F L 69 18 142/69 H Room Air 01/14/24 09:32 01/14/24 09:32 01/14/24 09:32 01/14/24 09:32 01/14/24 09:32 Oxygen Delivery Method Room Air Physical Exam Const alert, oriented x3 and no apparent distress General Appearance: cooperative HEENT normocephalic Eyes General Eye: normal appearance of both eyes Neck General: normal visual inspection Lymph Lymphatic: no lymphadenopathy noted and no lymphedema noted Resp normal respiratory effort Cardio regular rate and regular rhythm Extremity normal capillary refill, no joint enlargement and no calf tenderness Extremity Narrative: Vascular: DP and PT pulses weakly palpable. Capillary fill time to digits is 5 seconds. Normal temperature gradient. There is absent hair growth to digits noted. Dermatological: There is superficial ulceration noted to the medial aspect of the lower extremity/ankle with fresh epithelialization. Ulcer does have pinpoint area of serous drainage secondary to swelling. Negative Stemmer sign left foot. There is evidence of stasis dermatitis with hyperpigmentation/hemosiderin deposition/staining of skin left lower extremity. There is also varicosities noted of the lower extremity. Musculoskeletal: Muscle strength 5 of 5 age-appropriate. Skin no rashes or lesions noted, skin turgor normal and no jaundice Neuro moves all extremities Debridement Note Debridement Note Wound debrided: Medial left lower extremity Laterality: Left Wound Grade/Stage: Cisneros stage III Type of Debridement: Excisional debridement Anesthesia Used: 5% Lidocaine Gel Depth: Down to and including healthy tissue and in the subcutaneous layer Percentage of wound debrided: 100 Instrument Used: 5mm curette Tissue Removed: Fibrous, devitalized subcutaneous, biofilm, slough Severity: Limited To Skin Breakdown Amount of bleeding with debridement: Mild Bleeding Controlled with: Compression and gauze Patient tolerated procedure: Patient tolerated procedure well Post-Debridement Measurements and Additional Note: Post-Debridement Measurements/Treatment - Nurse 1 - General Ulcer Assessment Start: 01/14/24 09:30 Freq: Status: Active Protocol: ANAYA Activity Type Activity Date Activity User E-sign Co-sign Detail Recorded Client Recorded Date Recorded By Document 01/14/24 09:32 KW Desktop 01/14/24 09:38 KW 01/14/24 09:32 - Today's Visit Information 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 service 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 Any new allergies or adverse reactions No Had a fall/change in ADL's that may No increase risk of falls Signs or symptoms of abuse and/or No neglect since last visit Have you been in the hospital since your No last visit? Has dressing in place as prescribed Yes Has compression in place as prescribed Yes Has offloadiing in place as prescribed N/A Experienced any changes in pain level or No management Left Footwear Regular Shoe Right Footwear Regular Shoe Pain Scale: 0-10 Numeric Is Patient Pain Free? Yes WC - Nurse 1 - General Ulcer Measurement Start: 01/14/24 09:30 Freq: Status: Active Protocol: Activity Type Activity Date Activity User E-sign Co-sign Detail Recorded Client Recorded Date Recorded By Document 01/14/24 09:32 KW Desktop 01/14/24 09:38 KW 01/14/24 09:32 Wound Center Nurse 1 #1 L Med Ankle -Current Size (cm) - Length 0.1 -Current Size (cm) - Width 0.1 -Current Size (cm) - Depth 0.1 -Total Square Cm 0.01 -Texture (Megan-wound Skin Appearance) Assessed -Moisture (Megan-wound Skin Appearance) Assessed,Dry/ Scaly -Color (Megan-wound Skin Appearance) Assessed -Ulcer Cleansing Rinsed/ Irrigated with Saline -Anesthetic Used 5% Lidocaine Gel -Wound Comment(s) SCABBED SITE. INTACT Right Calf (cm) 39.5 Right Ankle (cm) 24.5 Assessment/Plan Assessment/Plan (1) Ulcer of extremity due to chronic venous insufficiency: CODE(S): L98.499 - Non-pressure chronic ulcer of skin of other sites with unspecified severity; I87.2 - Venous insufficiency (chronic) (peripheral) (2) Delayed wound healing: CODE(S): T14.8XXD - Other injury of unspecified body region, subsequent encounter (3) Non-pressure chronic ulcer of left ankle with necrosis of muscle: CODE(S): L97.323 - Non-pressure chronic ulcer of left ankle with necrosis of muscle (4) Venous insufficiency (chronic) (peripheral): CODE(S): I87.2 - Venous insufficiency (chronic) (peripheral) (5) Obesity: CODE(S): E66.9 - Obesity, unspecified PLAN: Plan Patient seen and evaluated Left lower extremity: There is ulceration noted to the medial aspect of the left lower extremity/ankle limited to skin breakdown postdebridement with small portions of serosanguineous drainage secondary to soft tissue swelling. Ulceration had previously been deep overlying the neurovascular bundle was noted to be a Cisneros stage III prior to healing out 2 weeks ago. Negative Stemmer sign left foot. There is evidence of stasis dermatitis with hyperpigmentation/hemosiderin staining of the left lower extremity and varicosities. Ulceration has reopened. No signs of infection. Ulceration did undergo debridement as noted in the clinical panel above. Ulceration is limited to skin breakdown secondary to continued soft tissue swelling. Discussed protecting this previous ulcerative site with Band-Aid or foam dressing and continued application of his compression stocking. Discussed he is at risk of recidivism of this ulceration site over the next 30 days. It is imperative he continues to wear compression stockings and elevate lower extremities at times of rest. I have reviewed his venogram procedure by Dr. Mckee from 01/06/2024. No blockages were found. He will continue to follow Dr. Mckee and has visit with him next week. Discussed continued protein intake to aid in wound healing. Recommended continued Vladimir supplementation. Discussed reducing salty foods and content to aid in edema control and avoiding prolonged standing or having legs dangling over side of chair/bed. Discussed signs and symptoms of infection. Discussed if he notices redness about the ulcerative site moving up the leg, purulent drainage from the wound site, foul increasing odor from the wound, or if he experiences fever greater than 101 degree, accompanied by nausea, vomiting, chills/rigors that these are signs of a progressing infection and he should report to the ED for IV antibiotics and further evaluation. Patient voices understanding of this today. The following work up and care recommendations were made: Dressing: Pad and protect previous ulcerative site as skin is still fragile and has reopened secondary to soft tissue swelling. Will pad and protect with Band- Aid/foam border dressing for next 30 days and continue to wear compression stockings. Wash: Soap and water none Tissue growth optimization: Offload: Compression stockings and elevation of lower extremities. Pad and protect region. Vascular: Venogram was negative for blockage. Does have weakly palpable pulses however vascular status is not impacting healing and his ulceration is secondary to venous stasis. Edema: Continue compression stockings and elevation of the lower extremities. Infection: No signs of infection Pain: Mild discomfort he does take Tylenol as needed. Host factors: Chronic venous insufficiency I answered all the patient's questions. To return to the wound healing center in 1 week or call sooner if the patient has any questions or concerns.
== END 2024-01-17 23:59 | disposition home or self-care (01) ==
LOC: WC 09:23
PROVIDERS: PCP Family Medicine; Visit Provider Student in an Organized Health Care Education/Training Program
DX: I87.2 Venous insufficiency (chronic) (peripheral) (principal); L98.493 Non-pressure chronic ulcer of skin of other sites with necrosis of muscle; L97.323 Non-pressure chronic ulcer of left ankle with necrosis of muscle; E66.9 Obesity, unspecified; T14.8XXD Other injury of unspecified body region, subsequent encounter
CPT/HCPCS: 11042; 99213; G0463

== ENCOUNTER 2024-02-04 08:45 | Outpatient (RCR) | payer MEDICARE, OTHER, SELFPAY ==
[2024-01-18 00:31] VITALS: BP 142/69; PULSE 69; RESP 18; TEMP 35.8
[2024-01-21 09:33] VITALS: RESP 18; TEMP 36.9
--- NOTE | 2024-01-21 10:01 | PCM.WC.PN ---
History of Present Illness Date of Service: 01/21/24 Chief Complaint: Left medial ankle wound History of Wound: Patient is a 78-year-old male who presents to the wound care center with recurring left lower extremity medial ankle wound. He has PMHx of recurring left lower extremity ulceration secondary to chronic venous insufficiency, history of DVT, obesity, JOSHUA, iron deficient anemia, delayed wound healing, and asthma. He states that he does have compression stockings but his stockings are old. He had been following in the wound care center for a deep ulceration to the medial aspect of the left lower extremity overlying the neurovascular bundle. He did go on to heal this ulceration as of 12/31/[address] Mckee for venogram the following week. He states he did return to the compression stockings however feels that he has opened up with return of the ulceration at the medial left lower extremity. He denies trauma to the site. States that the specific site is recurrent with breakdown of skin. Denies N/V/F/chills. No further complaints. 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 States that during visit with Dr. Mckee for the venogram no blockages were found. States he has not had any recent drainage and the site continues to improve. He returns today for reevaluation of the site. Denies constitutional symptoms. Denies further complaints. Objective Data Objective Data Vital Signs: Vital Signs Temp Pulse Resp BP 98.5 F 69 18 142/69 H 01/21/24 09:33 01/18/24 00:31 01/21/24 09:33 01/18/24 00:31 Physical Exam Const alert, oriented x3 and no apparent distress General Appearance: cooperative HEENT normocephalic Eyes General Eye: normal appearance of both eyes Neck General: normal visual inspection Lymph Lymphatic: no lymphadenopathy noted and no lymphedema noted Resp normal respiratory effort Cardio regular rate and regular rhythm Extremity normal capillary refill, no joint enlargement, no calf tenderness and no pedal edema Extremity Narrative: Vascular: DP and PT pulses weakly palpable. Capillary fill time to digits is 5 seconds. Normal temperature gradient. There is absent hair growth to digits noted. Dermatological: There is superficial ulceration noted to the medial aspect of the lower extremity/ankle with fresh epithelialization. Previous pinpoint area has healed. Negative Stemmer sign left foot. There is evidence of stasis dermatitis with hyperpigmentation/hemosiderin deposition/staining of skin left lower extremity. There is also varicosities noted of the lower extremity. Musculoskeletal: Muscle strength 5 of 5 age-appropriate. Skin no rashes or lesions noted, skin turgor normal and no jaundice General Skin Exam: venous stasis and dermatitis Neuro moves all extremities Debridement Note Debridement Note No debridement was completed: No debridement was completed today Post-Debridement Measurements and Additional Note: Post-Debridement Measurements/Treatment WC - Nurse 1 - General Ulcer Assessment Start: 01/18/24 08:06 Freq: Status: Active Protocol: ANAYA Activity Type Activity Date Activity User E-sign Co-sign Detail Recorded Client Recorded Date Recorded By Document 01/21/24 09:33 DL Desktop 01/21/24 09:39 DL 01/21/24 09:33 WC - Today's Visit Information Type of service 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 Any new allergies or adverse reactions No Had a fall/change in ADL's that may No increase risk of falls Signs or symptoms of abuse and/or No neglect since last visit Have you been in the hospital since your No last visit? Has dressing in place as prescribed Yes Has compression in place as prescribed Yes Has offloadiing in place as prescribed N/A Experienced any changes in pain level or No management Pain Scale: 0-10 Numeric Is Patient Pain Free? Yes - Nurse 1 - General Ulcer Measurement Start: 01/18/24 08:06 Freq: Status: Active Protocol: Activity Type Activity Date Activity User E-sign Co-sign Detail Recorded Client Recorded Date Recorded By Document 01/21/24 09:33 DL Desktop 01/21/24 09:39 DL 01/21/24 09:33 Wound Center Nurse 1 #1 L Med Ankle -Current Size (cm) - Length 0.1 -Current Size (cm) - Width 0.1 -Current Size (cm) - Depth 0.1 -Total Square Cm 0.01 -Photo Taken Yes -Exudate Amt None Present -Wound Margin Indistinct, Non -Visible -Granulation Amt Large (67-100%) -Granulation Quality [place] -Necrosis Amt None Present (0 %) -Structure Exposed N/A -Texture (Megan-wound Skin Appearance) Scarring -Moisture (Megan-wound Skin Appearance) No Abnormality -Color (Megan-wound Skin Appearance) No Abnormality, Hemosiderin Staining -Temperature (Megan-wound Skin No Abnormality Appearance) (Pt Warm) -Ulcer Cleansing Rinsed/ Irrigated with Saline -Foul Odor after Cleansing No Left Calf (cm) 38 Left Ankle (cm) 23.5 Assessment/Plan Assessment/Plan (1) Non-pressure chronic ulcer of left ankle with necrosis of muscle: CODE(S): L97.323 - Non-pressure chronic ulcer of left ankle with necrosis of muscle (2) Delayed wound healing: CODE(S): T14.8XXD - Other injury of unspecified body region, subsequent encounter (3) Venous insufficiency (chronic) (peripheral): CODE(S): I87.2 - Venous insufficiency (chronic) (peripheral) (4) Obesity: CODE(S): E66.9 - Obesity, unspecified (5) Iron deficiency anemia: CODE(S): D50.9 - Iron deficiency anemia, unspecified PLAN: Plan Patient seen and evaluated Left lower extremity: There is ulceration noted to the medial aspect of the left lower extremity/ankle limited to skin breakdown postdebridement with small portions of serosanguineous drainage secondary to soft tissue swelling. Ulceration had previously been deep overlying the neurovascular bundle was noted to be a Cisneros stage III prior to healing out 2 weeks ago. Negative Stemmer sign left foot. There is evidence of stasis dermatitis with hyperpigmentation/hemosiderin staining of the left lower extremity and varicosities. Ulceration has reopened last week but is now epithelialized with no open area, however there is fragile skin covering previous wound site. No signs of infection. Ulceration is limited to skin breakdown secondary to continued soft tissue swelling. Discussed protecting this previous ulcerative site with Band-Aid or foam dressing and continued application of his compression stocking. Discussed he is at risk of recidivism of this ulceration site over the next 30 days. It is imperative he continues to wear compression stockings and elevate lower extremities at times of rest. I have reviewed his venogram procedure by Dr. Mckee from 01/06/2024. No blockages were found. He will continue to follow Dr. Mckee and has visit with him next week. Discussed continued protein intake to aid in wound healing. Recommended continued Vladimir supplementation. Discussed reducing salty foods and content to aid in edema control and avoiding prolonged standing or having legs dangling over side of chair/bed. Discussed signs and symptoms of infection. Discussed if he notices redness about the ulcerative site moving up the leg, purulent drainage from the wound site, foul increasing odor from the wound, or if he experiences fever greater than 101 degree, accompanied by nausea, vomiting, chills/rigors that these are signs of a progressing infection and he should report to the ED for IV antibiotics and further evaluation. Patient voices understanding of this today. The following work up and care recommendations were made: Dressing: Pad and protect previous ulcerative site as skin is still fragile and has reopened secondary to soft tissue swelling. Will pad and protect with Band-Aid/foam border dressing for next 30 days and continue to wear compression stockings. Wash: Soap and water none Tissue growth optimization: Offload: Compression stockings and elevation of lower extremities. Pad and protect region. Vascular: Venogram was negative for blockage. Does have weakly palpable pulses however vascular status is not impacting healing and his ulceration is secondary to venous stasis. Edema: Continue compression stockings and elevation of the lower extremities. Infection: No signs of infection Pain: Mild discomfort he does take Tylenol as needed. Host factors: Chronic venous insufficiency I answered all the patient's questions. To return to the wound healing center in 1 week or call sooner if the patient has any questions or concerns.
[2024-01-28 08:29] VITALS: BP 137/90; PULSE 66; RESP 16; TEMP 36.3
--- NOTE | 2024-01-28 09:27 | PN.PCM_ITS ---
History of Present Illness Date of Service: 01/28/24 Chief Complaint: Left medial ankle wound History of Wound: Patient is a 78-year-old male who presents to the wound care center with recurring left lower extremity medial ankle wound. He has PMHx of recurring left lower extremity ulceration secondary to chronic venous insufficiency, history of DVT, obesity, JOSHUA, iron deficient anemia, delayed wound healing, and asthma. He states that he does have compression stockings but his stockings are old. He had been following in the wound care center for a deep ulceration to the medial aspect of the left lower extremity overlying the neurovascular bundle. He did go on to heal this ulceration as of 12/31/[address] Mckee for venogram the following week. He states he did return to the compression stockings however feels that he has opened up with return of the ulceration at the medial left lower extremity. He denies trauma to the site. States that the specific site is recurrent with breakdown of skin. Denies N/V/F/chills. No further complaints. 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 States that during visit with Dr. Mckee for the venogram no blockages were found. States he has not had any recent drainage and the site continues to improve with continued use of compression stocking. States he had follow up with vascular on 01/26/24. He returns today for reevaluation of the site. Denies constitutional symptoms. Denies further complaints. Objective Data Objective Data Vital Signs: Vital Signs Temp Pulse Resp BP O2 Del Method 97.4 F L 66 16 137/90 H Room Air 01/28/24 08:29 01/28/24 08:29 01/28/24 08:29 01/28/24 08:29 01/28/24 08:29 Oxygen Delivery Method Room Air Physical Exam Const alert, oriented x3 and no apparent distress General Appearance: cooperative HEENT normocephalic Eyes General Eye: normal appearance of both eyes Neck General: normal visual inspection Lymph Lymphatic: no lymphadenopathy noted and no lymphedema noted Resp normal respiratory effort Cardio regular rate and regular rhythm Extremity normal capillary refill, no joint enlargement, no calf tenderness and no pedal edema Extremity Narrative: Vascular: DP and PT pulses weakly palpable. Capillary fill time to digits is 5 seconds. Normal temperature gradient. There is absent hair growth to digits noted. Dermatological: There is superficial ulceration noted to the medial aspect of the lower extremity/ankle with fresh epithelialization. Previous pinpoint area remains healed. Negative Stemmer sign left foot. There is evidence of stasis dermatitis with hyperpigmentation/hemosiderin deposition/staining of skin left lower extremity. There is also varicosities noted of the lower extremity. Musculoskeletal: Muscle strength 5 of 5 age-appropriate. Skin no rashes or lesions noted, skin turgor normal and no jaundice General Skin Exam: venous stasis and dermatitis Neuro moves all extremities Debridement Note Debridement Note No debridement was completed: No debridement was completed today Post-Debridement Measurements and Additional Note: Post-Debridement Measurements/Treatment WC - Nurse 1 - General Ulcer Assessment Start: 01/18/24 08:06 Freq: Status: Active Protocol: LA NENA.LOWEXT Activity Type Activity Date Activity User E-sign Co-sign Detail Recorded Client Recorded Date Recorded By Document 01/21/24 09:33 DL Desktop 01/21/24 09:39 DL Document 01/28/24 08:29 KW Desktop 01/28/24 08:37 KW 01/21/24 01/28/24 09:33 08:29 WC - Today's Visit Information Type of service Follow-up Visit Follow-up Visit (Physician/CLINICAL INFORMATICS STRATEGIST (Physician/CLINICAL INFORMATICS STRATEGIST ) ) Arrival Mode Ambulatory Ambulatory Transfer Assistance None Patient Identification Verified (Name & Yes Yes ) Patient Requires Transmission-Based No Precautions Vital Signs Temperature (97.8 F-99.1 F) 98.5 F 97.4 F L Temperature Source Temporal Temporal Pulse Rate (60-100) 66 Pulse Location Monitor Respiratory Rate (12-18) 18 16 Respiratory rate source Observation Observation Oxygen Delivery Method Room Air Blood Pressure (90/60-120/80) 137/90 H Blood Pressure Mean (mm Hg) 105 Source Monitor Position Semi-Fowlers Blood Pressure Location Left Arm History Since Last Visit- (Skip if this is Patient's initial visit) Have you changed medications since your No No last visit? Any new allergies or adverse reactions No No Had a fall/change in ADL's that may No No increase risk of falls Signs or symptoms of abuse and/or No No neglect since last visit Have you been in the hospital since your No No last visit? Has dressing in place as prescribed Yes Yes Has compression in place as prescribed Yes Yes Has offloadiing in place as prescribed N/A N/A Experienced any changes in pain level or No No management Left Footwear Regular Shoe Right Footwear Regular Shoe Pain Scale: 0-10 Numeric Is Patient Pain Free? Yes Yes - Nurse 1 - General Ulcer Measurement Start: 01/18/24 08:06 Freq: Status: Active Protocol: Activity Type Activity Date Activity User E-sign Co-sign Detail Recorded Client Recorded Date Recorded By Document 01/21/24 09:33 DL Desktop 01/21/24 09:39 DL Document 01/28/24 08:29 KW Desktop 01/28/24 08:37 KW 01/21/24 01/28/24 09:33 08:29 Wound Center Nurse 1 #1 L Med Ankle -Current Size (cm) - Length 0.1 0.1 -Current Size (cm) - Width 0.1 0.1 -Current Size (cm) - Depth 0.1 0.1 -Total Square Cm 0.01 0.01 -Date of Last Picture (Recall this 01/28/24 field) -Photo Taken Yes Yes -Epithelialization Large 67-100% -Exudate Amt None Present -Wound Margin Indistinct, Non -Visible -Granulation Amt Large (67-100%) -Granulation Quality [place] -Necrosis Amt None Present (0 %) -Structure Exposed N/A -Texture (Megan-wound Skin Appearance) Scarring Assessed -Moisture (Megan-wound Skin Appearance) No Abnormality Assessed,Dry/ Scaly -Color (Megan-wound Skin Appearance) No Abnormality, Assessed Hemosiderin Staining -Temperature (Megan-wound Skin No Abnormality No Abnormality Appearance) (Pt Warm) (Pt Warm) -Tenderness on Palpation (Megan-wound No Skin Appearance) -Ulcer Cleansing Rinsed/ Rinsed/ Irrigated with Irrigated with Saline Saline -Foul Odor after Cleansing No No Left Calf (cm) 38 38 Left Ankle (cm) 23.5 23.5 WC - Nurse 2 - General Ulcer CM Notes Start: 01/18/24 08:06 Freq: Status: Active Protocol: Activity Type Activity Date Activity User E-sign Co-sign Detail Recorded Client Recorded Date Recorded By Document 01/21/24 10:09 [facility] Desktop 01/21/24 10:10 [facility] Document 01/28/24 09:07 [facility] Desktop 01/28/24 09:10 BM 01/21/24 01/28/24 10:09 09:07 Wound Center Nurse 2 #1 L Med Ankle -Post Debridement (cm) - Length 0.1 0.1 -Post Debridement (cm) - Width 0.1 0.1 -Post Debridement (cm) - Depth 0.1 0.1 -Total Square (Post) (cm) 0.01 0.01 -Area of Debridement (cm) - Length 0.1 0.1 -Area of Debridement (cm) - Width 0.1 0.1 -Total Square (Area) (cm) 0.01 0.01 -Tunneling No No -Undermining/Tunneling No No -Circular Undermining No No -Wound/Ulcer Outcome Not Healed Not Healed -Bleeding Controlled with NA Pain Scale: 0-10 Numeric Is Patient Pain Free? Yes Yes - Nurse 3 - General Ulcer D/C NN Start: 01/18/24 08:06 Freq: Status: Active Protocol: Activity Type Activity Date Activity User E-sign Co-sign Detail Recorded Client Recorded Date Recorded By Document 01/21/24 10:18 DL Desktop 01/21/24 10:20 DL 01/21/24 10:18 Wound Care Center Nurse 3 #1 L Med Ankle -Foul Odor after Cleansing No -Primary Dressing Applied Mepilex Border -Mepilex Border 1 josemanuel -Stockings Yes Pain Scale: 0-10 Numeric Is Patient Pain Free? Yes WC - Visit Discharge Discharge Condition Stable Ambulatory Status Ambulatory Transportation Private Auto Assessment/Plan Assessment/Plan (1) Non-pressure chronic ulcer of left ankle with necrosis of muscle: CODE(S): L97.323 - Non-pressure chronic ulcer of left ankle with necrosis of muscle (2) Delayed wound healing: CODE(S): T14.8XXD - Other injury of unspecified body region, subsequent encounter (3) Venous insufficiency (chronic) (peripheral): CODE(S): I87.2 - Venous insufficiency (chronic) (peripheral) (4) Obesity: CODE(S): E66.9 - Obesity, unspecified (5) Iron deficiency anemia: CODE(S): D50.9 - Iron deficiency anemia, unspecified PLAN: Plan Patient seen and evaluated Left lower extremity: There is ulceration noted to the medial aspect of the left lower extremity/ankle limited to skin breakdown postdebridement with small portions of serosanguineous drainage secondary to soft tissue swelling. Ulceration had previously been deep overlying the neurovascular bundle was noted to be a Cisneros stage III prior to healing out 2 weeks ago. Negative Stemmer sign left foot. There is evidence of stasis dermatitis with hyperpigmentation/hemosiderin staining of the left lower extremity and varicosities. Ulceration reopened two weeks ago but is now epithelialized with no open area, however there remains fragile skin covering previous wound site. No signs of infection. Ulceration has healed with surrounding skin continuing to improve. Discussed protecting this previous ulcerative site with Band-Aid or foam dressing and continued application of his compression stocking. Discussed he is at risk of recidivism of this ulceration site over the next 30 days. It is imperative he continues to wear compression stockings and elevate lower extremities at times of rest. I have reviewed his venogram procedure by Dr. Mckee from 01/06/2024. No blockages were found. He will continue to follow Dr. Mckee and had recent visit with him 01/26/24 and plan is to repeat venous duplex in February. Discussed continued protein intake to aid in wound healing. Recommended continued Valdimir supplementation. Discussed reducing salty foods and content to aid in edema control and avoiding prolonged standing or having legs dangling over side of chair/bed. Discussed signs and symptoms of infection. Discussed if he notices redness about the ulcerative site moving up the leg, purulent drainage from the wound site, foul increasing odor from the wound, or if he experiences fever greater than 101 degree, accompanied by nausea, vomiting, chills/rigors that these are signs of a progressing infection and he should report to the ED for IV antibiotics and further evaluation. Patient voices understanding of this today. The following work up and care recommendations were made: Dressing: Pad and protect previous ulcerative site as skin is still fragile and has reopened secondary to soft tissue swelling. Will pad and protect with Band- Aid/foam border dressing for next 30 days and continue to wear compression stockings. Wash: Soap and water none Tissue growth optimization: Offload: Compression stockings and elevation of lower extremities. Pad and protect region. Vascular: Venogram was negative for blockage. Does have weakly palpable pulses however vascular status is not impacting healing and his ulceration is secondary to venous stasis. Edema: Continue compression stockings and elevation of the lower extremities. Infection: No signs of infection Pain: Mild discomfort he does take Tylenol as needed. Host factors: Chronic venous insufficiency I answered all the patient's questions. To return to the wound healing center in 1 week or call sooner if the patient has any questions or concerns.
[2024-02-04 08:35] VITALS: BP 140/67; PULSE 65; RESP 20; TEMP 36.9
--- NOTE | 2024-02-04 09:41 | PN.PCM_ITS ---
History of Present Illness Date of Service: 02/04/24 Chief Complaint: Left medial ankle wound History of Wound: Patient is a 78-year-old male who presents to the wound care center with recurring left lower extremity medial ankle wound. He has PMHx of recurring left lower extremity ulceration secondary to chronic venous insufficiency, history of DVT, obesity, JOSHUA, iron deficient anemia, delayed wound healing, and asthma. He states that he does have compression stockings but his stockings are old. He had been following in the wound care center for a deep ulceration to the medial aspect of the left lower extremity overlying the neurovascular bundle. He did go on to heal this ulceration as of 12/31/[address] Mckee for venogram the following week. He states he did return to the compression stockings however feels that he has opened up with return of the ulceration at the medial left lower extremity. He denies trauma to the site. States that the specific site is recurrent with breakdown of skin. Denies N/V/F/chills. No further complaints. 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 States he has not had any recent drainage and the site continues to improve with continued use of compression stocking. He returns today for reevaluation of the site prior to leaving for [place] for next 2 weeks to aid in selling his brother's condo. Denies constitutional symptoms. Denies further complaints. Objective Data Objective Data Vital Signs: Vital Signs Temp Pulse Resp BP O2 Del Method 98.5 F 65 20 H 140/67 H Room Air 02/04/24 08:35 02/04/24 08:35 02/04/24 08:35 02/04/24 08:35 01/28/24 08:29 Oxygen Delivery Method Room Air Physical Exam Const alert, oriented x3 and no apparent distress General Appearance: cooperative HEENT normocephalic Eyes General Eye: normal appearance of both eyes Neck General: normal visual inspection Lymph Lymphatic: no lymphadenopathy noted and no lymphedema noted Resp normal respiratory effort Cardio regular rate and regular rhythm Extremity normal capillary refill, no joint enlargement, no calf tenderness and no pedal edema Extremity Narrative: Vascular: DP and PT pulses weakly palpable. Capillary fill time to digits is 5 seconds. Normal temperature gradient. There is absent hair growth to digits noted. Dermatological: There is superficial ulceration noted to the medial aspect of the lower extremity/ankle with fresh epithelialization. Previous pinpoint area remains healed. Negative Stemmer sign left foot. There is evidence of stasis dermatitis with hyperpigmentation/hemosiderin deposition/staining of skin left lower extremity. There is also varicosities noted of the lower extremity. Musculoskeletal: Muscle strength 5 of 5 age-appropriate. Skin no rashes or lesions noted, skin turgor normal and no jaundice General Skin Exam: venous stasis and dermatitis Neuro moves all extremities Debridement Note Debridement Note Patient tolerated procedure: Patient tolerated procedure well Post-Debridement Measurements and Additional Note: Post-Debridement Measurements/Treatment - Nurse 1 - General Ulcer Assessment Start: 01/18/24 08:06 Freq: Status: Active Protocol: ANAYA Activity Type Activity Date Activity User E-sign Co-sign Detail Recorded Client Recorded Date Recorded By Document 01/21/24 09:33 DL Desktop 01/21/24 09:39 DL Document 01/28/24 08:29 KW Desktop 01/28/24 08:37 KW Document 02/04/24 08:35 DL Desktop 02/04/24 08:39 DL 01/21/24 01/28/24 02/04/24 09:33 08:29 08:35 - Today's Visit Information Type of service Follow-up Visit Follow-up Visit Follow-up Visit (Physician/ROUTE DRIVER (Physician/ROUTE DRIVER (Physician/ROUTE DRIVER ) ) ) Arrival Mode Ambulatory Ambulatory Ambulatory Transfer Assistance None None Patient Identification Verified (Name & Yes Yes Yes ) Patient Requires Transmission-Based No No Precautions Vital Signs Temperature (97.8 F-99.1 F) 98.5 F 97.4 F L 98.5 F Temperature Source Temporal Temporal Temporal Pulse Rate (60-100) 66 65 Pulse Location Monitor Monitor Respiratory Rate (12-18) 18 16 20 H Respiratory rate source Observation Observation Observation Oxygen Delivery Method Room Air Blood Pressure (90/60-120/80) 137/90 H 140/67 H Blood Pressure Mean (mm Hg) 105 91 Source Monitor Monitor Position Semi-Fowlers Blood Pressure Location Left Arm History Since Last Visit- (Skip if this is Patient's initial visit) Have you changed medications since your No No No last visit? Any new allergies or adverse reactions No No No Had a fall/change in ADL's that may No No No increase risk of falls Signs or symptoms of abuse and/or No No No neglect since last visit Have you been in the hospital since your No No No last visit? Has dressing in place as prescribed Yes Yes Yes Has compression in place as prescribed Yes Yes Yes Has offloadiing in place as prescribed N/A N/A N/A Experienced any changes in pain level or No No No management Left Footwear Regular Shoe Right Footwear Regular Shoe Pain Scale: 0-10 Numeric Is Patient Pain Free? Yes Yes Yes WC - Nurse 1 - General Ulcer Measurement Start: 01/18/24 08:06 Freq: Status: Active Protocol: Activity Type Activity Date Activity User E-sign Co-sign Detail Recorded Client Recorded Date Recorded By Document 01/21/24 09:33 DL Desktop 01/21/24 09:39 DL Document 01/28/24 08:29 KW Desktop 01/28/24 08:37 KW Document 02/04/24 08:35 DL Desktop 02/04/24 08:39 DL 01/21/24 01/28/24 02/04/24 09:33 08:29 08:35 Wound Center Nurse 1 #1 L Med Ankle -Current Size (cm) - Length 0.1 0.1 0 -Current Size (cm) - Width 0.1 0.1 0 -Current Size (cm) - Depth 0.1 0.1 0 -Total Square Cm 0.01 0.01 0 -Date of Last Picture (Recall this 01/28/24 field) -Photo Taken Yes Yes Yes -Epithelialization Large 67-100% -Exudate Amt None Present None Present -Wound Margin Indistinct, Non Indistinct, Non -Visible -Visible -Granulation Amt Large (67-100%) Large (67-100%) -Granulation Quality [place] -Necrosis Amt None Present (0 None Present (0 %) %) -Structure Exposed N/A N/A -Texture (Megan-wound Skin Appearance) Scarring Assessed Scarring -Moisture (Megan-wound Skin Appearance) No Abnormality Assessed,Dry/ Dry/Scaly Scaly -Color (Megan-wound Skin Appearance) No Abnormality, Assessed Hemosiderin Hemosiderin Staining Staining -Temperature (Emgan-wound Skin No Abnormality No Abnormality No Abnormality Appearance) (Pt Warm) (Pt Warm) (Pt Warm) -Tenderness on Palpation (Megan-wound No No Skin Appearance) -Ulcer Cleansing Rinsed/ Rinsed/ Rinsed/ Irrigated with Irrigated with Irrigated with Saline Saline Saline -Foul Odor after Cleansing No No No Left Calf (cm) 38 38 36 Left Ankle (cm) 23.5 23.5 22.5 WC - Nurse 2 - General Ulcer CM Notes Start: 01/18/24 08:06 Freq: Status: Active Protocol: Activity Type Activity Date Activity User E-sign Co-sign Detail Recorded Client Recorded Date Recorded By Document 01/21/24 10:09 BMF Desktop 01/21/24 10:10 [employer] Document 01/28/24 09:07 BMF Desktop 01/28/24 09:10 [employer] Document 02/04/24 09:13 BMF Desktop 02/04/24 09:17 BMF 01/21/24 01/28/24 02/04/24 10:09 09:07 09:13 Wound Center Nurse 2 #1 L Med Ankle -Post Debridement (cm) - Length 0.1 0.1 0.1 -Post Debridement (cm) - Width 0.1 0.1 0.1 -Post Debridement (cm) - Depth 0.1 0.1 0.1 -Total Square (Post) (cm) 0.01 0.01 0.01 -Area of Debridement (cm) - Length 0.1 0.1 0.1 -Area of Debridement (cm) - Width 0.1 0.1 0.1 -Total Square (Area) (cm) 0.01 0.01 0.01 -Tunneling No No -Undermining/Tunneling No No -Circular Undermining No No -Wound/Ulcer Outcome Not Healed Not Healed Not Healed -Bleeding Controlled with NA Pain Scale: 0-10 Numeric Is Patient Pain Free? Yes Yes Yes WC - Nurse 3 - General Ulcer D/C NN Start: 01/18/24 08:06 Freq: Status: Active Protocol: Activity Type Activity Date Activity User E-sign Co-sign Detail Recorded Client Recorded Date Recorded By Document 01/21/24 10:18 DL Desktop 01/21/24 10:20 DL Document 02/04/24 09:22 ML Desktop 02/04/24 09:23 ML 01/21/24 02/04/24 10:18 09:22 Wound Care Center Nurse 3 #1 L Med Ankle -Ulcer Cleansing Rinsed/ Irrigated with Saline -Foul Odor after Cleansing No No -Primary Dressing Applied Mepilex Border Mepilex Border -Mepilex Border 1 1 josemanuel -Stockings Yes Pain Scale: 0-10 Numeric Is Patient Pain Free? Yes No WC - Visit Discharge Discharge Condition Stable Stable Ambulatory Status Ambulatory Ambulatory Transportation Private Auto Medication Reconcilliation completed & No provided to patient/care provider Assessment/Plan Assessment/Plan (1) Non-pressure chronic ulcer of left ankle with necrosis of muscle: CODE(S): L97.323 - Non-pressure chronic ulcer of left ankle with necrosis of muscle (2) Delayed wound healing: CODE(S): T14.8XXD - Other injury of unspecified body region, subsequent encounter (3) Venous insufficiency (chronic) (peripheral): CODE(S): I87.2 - Venous insufficiency (chronic) (peripheral) (4) Obesity: CODE(S): E66.9 - Obesity, unspecified (5) Iron deficiency anemia: CODE(S): D50.9 - Iron deficiency anemia, unspecified PLAN: Plan Patient seen and evaluated Left lower extremity: There is ulceration noted to the medial aspect of the left lower extremity/ankle limited to skin breakdown postdebridement with small portions of serosanguineous drainage secondary to soft tissue swelling. Ulceration had previously been deep overlying the neurovascular bundle was noted to be a Cisneros stage III prior to healing out 2 weeks ago. Negative Stemmer sign left foot. There is evidence of stasis dermatitis with hyperpigmentation/hemosiderin staining of the left lower extremity and varicosities. Ulceration reopened three weeks ago but is now epithelialized and remains so with no open area, however there remains fragile skin covering previous wound site. No signs of infection. Ulceration has healed with surrounding skin continuing to improve. Discussed protecting this previous ulcerative site with Band-Aid or foam dressing and continued application of his compression stocking. Discussed he is at risk of recidivism of this ulceration site over the next 30 days. It is imperative he continues to wear compression stockings and elevate lower extremities at times of rest. Discussed his trip to [place] that he will be taking tomorrow. Discussed what he should do in the event that the site reopen while he is down there for the next 2 weeks. Was instructed to change dressing daily with an antibacterial ointment and continue his compression stockings. He was warned that with the increased temperature swelling will continue in this extremity. He was reminded to reduce salt intake during this trip and continue to elevate leg while at rest. I have reviewed his venogram procedure by Dr. Mckee from 01/06/2024. No blockages were found. He will continue to follow Dr. Mckee and had recent visit with him 01/26/24 and plan is to repeat venous duplex in February. Discussed continued protein intake to aid in wound healing. Recommended continued Vladimir supplementation. Discussed reducing salty foods and content to aid in edema control and avoiding prolonged standing or having legs dangling over side of chair/bed. Discussed signs and symptoms of infection. Discussed if he notices redness about the ulcerative site moving up the leg, purulent drainage from the wound site, foul increasing odor from the wound, or if he experiences fever greater than 101 degree, accompanied by nausea, vomiting, chills/rigors that these are signs of a progressing infection and he should report to the ED for IV antibiotics and further evaluation. Patient voices understanding of this today. The following work up and care recommendations were made: Dressing: Pad and protect previous ulcerative site as skin is still fragile and has reopened secondary to soft tissue swelling. Will pad and protect with Band- Aid/foam border dressing for next 30 days and continue to wear compression stockings. Wash: Soap and water none Tissue growth optimization: Offload: Compression stockings and elevation of lower extremities. Pad and protect region. Vascular: Venogram was negative for blockage. Does have weakly palpable pulses however vascular status is not impacting healing and his ulceration is secondary to venous stasis. Edema: Continue compression stockings and elevation of the lower extremities. Infection: No signs of infection Pain: Mild discomfort he does take Tylenol as needed. Host factors: Chronic venous insufficiency I answered all the patient's questions. To return to the wound healing center in 2 weeks or call sooner if the patient has any questions or concerns.
== END 2024-02-16 23:59 | disposition home or self-care (01) ==
LOC: WC 08:45
PROVIDERS: PCP Family Medicine; Visit Provider Student in an Organized Health Care Education/Training Program
DX: L97.323 Non-pressure chronic ulcer of left ankle with necrosis of muscle (principal); I87.2 Venous insufficiency (chronic) (peripheral); D50.9 Iron deficiency anemia, unspecified; E66.9 Obesity, unspecified; T14.8XXD Other injury of unspecified body region, subsequent encounter; Z86.718 Personal history of other venous thrombosis and embolism
CPT/HCPCS: 99213; G0463

== ENCOUNTER 2024-03-03 08:11 | Outpatient (RCR) | payer MEDICARE, OTHER, SELFPAY ==
[2024-02-17 00:44] VITALS: BP 140/67; PULSE 65; RESP 20; TEMP 36.9
[2024-03-03 08:25] VITALS: BP 156/76; PULSE 64; RESP 14; TEMP 36.2
--- NOTE | 2024-03-03 10:04 | PCM.WC.PN ---
History of Present Illness Date of Service: 03/03/24 Chief Complaint: Left medial ankle wound History of Wound: Patient is a 78-year-old male who presents to the wound care center with recurring left lower extremity medial ankle wound. He has PMHx of recurring left lower extremity ulceration secondary to chronic venous insufficiency, history of DVT, obesity, JOSHUA, iron deficient anemia, delayed wound healing, and asthma. He states that he does have compression stockings but his stockings are old. He had been following in the wound care center for a deep ulceration to the medial aspect of the left lower extremity overlying the neurovascular bundle. He did go on to heal this ulceration as of 12/31/[address] Mckee for venogram the following week. He states he did return to the compression stockings however feels that he has opened up with return of the ulceration at the medial left lower extremity. He denies trauma to the site. States that the specific site is recurrent with breakdown of skin. Denies N/V/F/chills. No further complaints. 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 States he has not had any recent drainage and the site continues to improve with continued use of compression stocking. He returns today for reevaluation of the site after returning from [place] where he was for the last month trying to sell his brothers condo. Denies constitutional symptoms. Denies further complaints. Objective Data Objective Data Vital Signs: Vital Signs Temp Pulse Resp BP 97.2 F L 64 14 156/76 H 03/03/24 08:25 03/03/24 08:25 03/03/24 08:25 03/03/24 08:25 Physical Exam Const alert, oriented x3 and no apparent distress General Appearance: cooperative HEENT normocephalic Eyes General Eye: normal appearance of both eyes Neck General: normal visual inspection Lymph Lymphatic: no lymphadenopathy noted and no lymphedema noted Resp normal respiratory effort Cardio regular rate and regular rhythm Extremity normal capillary refill, no joint enlargement, no calf tenderness and no pedal edema Extremity Narrative: Vascular: DP and PT pulses weakly palpable. Capillary fill time to digits is 5 seconds. Normal temperature gradient. There is absent hair growth to digits noted. Dermatological: Ulceration noted to the medial aspect of the lower extremity/ankle healed with full epithelialization. Previous pinpoint area remains healed. Negative Stemmer sign left foot. There is evidence of stasis dermatitis with hyperpigmentation/hemosiderin deposition/staining of skin left lower extremity. There is also varicosities noted of the lower extremity. Musculoskeletal: Muscle strength 5 of 5 age-appropriate. Skin no rashes or lesions noted, skin turgor normal and no jaundice General Skin Exam: venous stasis and dermatitis Neuro moves all extremities Debridement Note Debridement Note No debridement was completed: No debridement was completed today Post-Debridement Measurements and Additional Note: Post-Debridement Measurements/Treatment WC - Nurse 1 - General Ulcer Assessment Start: 03/03/24 08:25 Freq: Status: Active Protocol: ANAYA Activity Type Activity Date Activity User E-sign Co-sign Detail Recorded Client Recorded Date Recorded By Document 03/03/24 08:25 ML [id number] 03/03/24 08:28 ML 03/03/24 08:25 WC - Today's Visit Information Type of service Follow-up Visit (Physician/LEATHER SKINNER ) Arrival Mode Ambulatory Transfer Assistance None Patient Identification Verified (Name & Yes ) Patient Requires Transmission-Based No Precautions Vital Signs Temperature (97.8 F-99.1 F) 97.2 F L Temperature Source Temporal Pulse Rate (60-100) 64 Pulse Location Monitor Respiratory Rate (12-18) 14 Respiratory rate source Observation Blood Pressure (90/60-120/80) 156/76 H Blood Pressure Mean (mm Hg) 102 Source Monitor Position Sitting Blood Pressure Location Left Arm History Since Last Visit- (Skip if this is Patient's initial visit) Have you changed medications since your No last visit? Any new allergies or adverse reactions No Had a fall/change in ADL's that may No increase risk of falls Signs or symptoms of abuse and/or No neglect since last visit Have you been in the hospital since your No last visit? Has dressing in place as prescribed No Has compression in place as prescribed Yes Has offloadiing in place as prescribed N/A Experienced any changes in pain level or No management Left Footwear Regular Shoe Right Footwear Regular Shoe Pain Scale: 0-10 Numeric Is Patient Pain Free? Yes - Nurse 1 - General Ulcer Measurement Start: 03/03/24 08:25 Freq: Status: Active Protocol: Activity Type Activity Date Activity User E-sign Co-sign Detail Recorded Client Recorded Date Recorded By Document 03/03/24 08:25 ML [id number] 03/03/24 08:28 ML 03/03/24 08:25 Wound Center Nurse 1 #1 L Med Ankle -Current Size (cm) - Length 0.1 -Current Size (cm) - Width 0.1 -Current Size (cm) - Depth 0.1 -Total Square Cm 0.01 -Photo Taken No -Epithelialization Large 67-100% -Tunneling No -Undermining/Tunneling No -Circular Undermining No -Exudate Amt None Present -Granulation Amt None Present (0 %) -Slough/Fibrin No -Necrosis Amt None Present (0 %) -Texture (Megan-wound Skin Appearance) Not Assessed -Moisture (Megan-wound Skin Appearance) No Abnormality -Color (Megan-wound Skin Appearance) No Abnormality -Temperature (Megan-wound Skin No Abnormality Appearance) (Pt Warm) -Tenderness on Palpation (Megan-wound No Skin Appearance) -Ulcer Cleansing Rinsed/ Irrigated with Saline -Anesthetic Used 5% Lidocaine Gel WC - Nurse 2 - General Ulcer CM Notes Start: 03/03/24 08:25 Freq: Status: Active Protocol: Activity Type Activity Date Activity User E-sign Co-sign Detail Recorded Client Recorded Date Recorded By Document 03/03/24 08:49 [facility] [id number] 03/03/24 08:53 BM 03/03/24 08:49 Wound Center Nurse 2 -Post Debridement (cm) - Length 0 -Post Debridement (cm) - Width 0 -Post Debridement (cm) - Depth 0 -Total Square (Post) (cm) 0 -Area of Debridement (cm) - Length 0 -Area of Debridement (cm) - Width 0 -Total Square (Area) (cm) 0 -Wound/Ulcer Outcome Healed- Epithelialized Pain Scale: 0-10 Numeric Is Patient Pain Free? Yes Assessment/Plan Assessment/Plan (1) Non-pressure chronic ulcer of left ankle with necrosis of muscle: CODE(S): L97.323 - Non-pressure chronic ulcer of left ankle with necrosis of muscle (2) Ulcer of extremity due to chronic venous insufficiency: CODE(S): L98.499 - Non-pressure chronic ulcer of skin of other sites with unspecified severity; I87.2 - Venous insufficiency (chronic) (peripheral) (3) Delayed wound healing: CODE(S): T14.8XXD - Other injury of unspecified body region, subsequent encounter (4) Venous insufficiency (chronic) (peripheral): CODE(S): I87.2 - Venous insufficiency (chronic) (peripheral) (5) Obesity: CODE(S): E66.9 - Obesity, unspecified (6) Iron deficiency anemia: CODE(S): D50.9 - Iron deficiency anemia, unspecified PLAN: Plan Patient seen and evaluated Left lower extremity: There is ulceration noted to the medial aspect of the left lower extremity/ankle limited to skin breakdown postdebridement with small portions of serosanguineous drainage secondary to soft tissue swelling. Ulceration had previously been deep overlying the neurovascular bundle was noted to be a Cisneros stage III prior to healing out. Negative Stemmer sign left foot. There is evidence of stasis dermatitis with hyperpigmentation/hemosiderin staining of the left lower extremity and varicosities. Ulceration is fully epithelialized and remains healed. It is imperative he continues to wear compression stockings and elevate lower extremities at times of rest to reduce recidivism. I have reviewed his venogram procedure by Dr. Mckee from 01/06/2024. No blockages were found. He will continue to follow Dr. Mckee and had recent visit with him 01/26/24 and plan is to repeat venous duplex in February. Discussed continued protein intake to aid in wound healing. Recommended continued Vladimir supplementation. Discussed reducing salty foods and content to aid in edema control and avoiding prolonged standing or having legs dangling over side of chair/bed. Discussed signs and symptoms of infection. Discussed if he notices redness about the ulcerative site moving up the leg, purulent drainage from the wound site, foul increasing odor from the wound, or if he experiences fever greater than 101 degree, accompanied by nausea, vomiting, chills/rigors that these are signs of a progressing infection and he should report to the ED for IV antibiotics and further evaluation. Patient voices understanding of this today. The following work up and care recommendations were made: Dressing: None Wash: Soap and water Tissue growth optimization: None Offload: Compression stockings and elevation of lower extremities. Vascular: Venogram was negative for blockage. Does have weakly palpable pulses however vascular status is not impacting healing and his ulceration is secondary to venous stasis. Edema: Continue compression stockings and elevation of the lower extremities. Infection: No signs of infection Pain: Mild discomfort he does take Tylenol as needed. Host factors: Chronic venous insufficiency With healed status he is being discharged from the wound care center today. I answered all the patient's questions. To return to the wound healing center as needed or call sooner if the patient has any questions or concerns.
== END 2024-03-18 23:59 | disposition home or self-care (01) ==
LOC: WC 08:11
PROVIDERS: PCP Family Medicine; Visit Provider Student in an Organized Health Care Education/Training Program
DX: L97.323 Non-pressure chronic ulcer of left ankle with necrosis of muscle (principal); L98.493 Non-pressure chronic ulcer of skin of other sites with necrosis of muscle; D50.9 Iron deficiency anemia, unspecified; E66.9 Obesity, unspecified; I87.2 Venous insufficiency (chronic) (peripheral); T14.8XXD Other injury of unspecified body region, subsequent encounter; Z86.718 Personal history of other venous thrombosis and embolism; G47.33 Obstructive sleep apnea (adult) (pediatric)
CPT/HCPCS: 99213; G0463

== ENCOUNTER → 2024-03-07 | Outpatient (CLI) | payer MEDICARE, OTHER, SELFPAY ==
--- NOTE | 2024-03-07 08:41 | VDLE_ITS ---
Reason For Study: Pain LLE RIGHT LEFT CFV is compressible, spontaneous, phasic, CFV is compressible, spontaneous, phasic, competent and demonstrates normal competent, and demonstrates normal augmentation. augmentation. Procedure Lt FV is partially compressible with bright This is a venous duplex using B-mode, color intraluminal echoes consistent with chronic flow and spectral Doppler. DVT and INCOMPETENT for greater than 1.0 Exam performed in department. second A preliminary report was called and/or faxed Lt PopV is partially compressible with bright to Salima MCCALLUM. intraluminal echoes consistent with chronic DVT and INCOMPETENT for greater than 1.0 second Lt T/P Trunk and Lt GastrocV are partially compressible with bright intraluminal echoes consistent with chronic DVT. PTV is compressible. LT PerV is compressible. SFJ is competent and measures 0.64cm x 0.65 cm. GSV proximal thigh measures 0.53cm x 0.51 cm. GSV at knee measures 0.50cm x 0.52 cm. GSV above knee is competent. GSV below knee is INCOMPETENT for greater than 0.5 seconds. ASV mid calf is INCOMPETENT for greater than 0.5 seconds and measures 0.43cm x 0.49 cm. SSV proximal calf is INCOMPETENT for greater than 0.5 seconds and measures 0.19cm x 0.20 cm. VL/Venous Duplex US, Unilateral Interpretation Summary Chronic deep vein thrombosis is noted in the left femoral vein, popliteal vein. Positive for reflux in the left femoral vein, popliteal vein, great saphenous v ein below the knee, accessory saphenous vein in calf, and small saphenous vein. Ordering Physician: Salima Morin Referring Physician: Keven Joseph Performed By: Perla Joshi, SOFIACS, RVT
== END | disposition home or self-care (01) ==
LOC: CVS 08:40
PROVIDERS: PCP Family Medicine; Referring Provider Physician Assistant; Visit Provider Physician Assistant
DX: I83.003 Varicose veins of unspecified lower extremity with ulcer of ankle (principal); L97.301 Non-pressure chronic ulcer of unspecified ankle limited to breakdown of skin
CPT/HCPCS: 93971

== ENCOUNTER 2024-04-15 09:43 | Outpatient (CLI) | payer MEDICARE, OTHER, SELFPAY ==
[2024-04-15 09:57] VITALS: BP 116/62; PULSE 71; RESP 16; TEMP 36.8; O2SAT 98; BMI 29.1
[2024-04-15] MEDS: DENOSUMAB 60 MG/ML SC (10:09)
[2024-04-15] MEDS: Benralizumab 30 MG/ML Syringe SC (10:09)
== END 2024-04-15 23:59 | disposition home or self-care (01) ==
LOC: MEDOUTP 09:43
PROVIDERS: PCP Family Medicine; Referring Provider Nurse Practitioner Acute Care; Visit Provider Nurse Practitioner Acute Care
DX: M81.0 Age-related osteoporosis without current pathological fracture (principal); J45.50 Severe persistent asthma, uncomplicated
CPT/HCPCS: 96372; J0517; J0897

== ENCOUNTER → 2024-06-06 | Outpatient (CLI) | payer MEDICARE, OTHER, SELFPAY ==
[2024-06-06 11:05] LABS: PSA,Total - Annual Screen 0.12 ng/mL (0.00-4.00)
== END | disposition home or self-care (01) ==
LOC: LAB 09:33
PROVIDERS: PCP Family Medicine; Referring Provider Nurse Practitioner; Visit Provider Nurse Practitioner
DX: Z12.5 Encounter for screening for malignant neoplasm of prostate (principal)
CPT/HCPCS: 36415; 84153; G0103

== ENCOUNTER 2024-06-14 14:14 | Outpatient (CLI) | payer MEDICARE, OTHER, SELFPAY ==
[2024-06-14 14:45] VITALS: BP 151/74; PULSE 61; RESP 16; TEMP 36; O2SAT 96; BMI 30.5
[2024-06-14] MEDS: DENOSUMAB 60 MG/ML SC (15:00)
== END 2024-06-14 23:59 | disposition home or self-care (01) ==
LOC: MEDOUTP 14:14
PROVIDERS: PCP Family Medicine; Referring Provider Physician Assistant Medical; Visit Provider Physician Assistant Medical
DX: M81.8 Other osteoporosis without current pathological fracture (principal)
CPT/HCPCS: 96372; J0897

== ENCOUNTER → 2024-07-04 | Outpatient (CLI) | payer MEDICARE, OTHER, SELFPAY ==
[2024-07-04 13:04] LABS: Vitamin D,25 Hydroxy 25.5 ng/mL
[2024-07-04 13:37] LABS: Anion Gap 5 (5-15); BUN 16 mg/dL (7-18); BUN/Creat Ratio 17.8 RATIO (10-20); Calcium,Total 9.7 mg/dL (8.5-10.1); Chloride 109 mmol/L (98-107); EST Glomerular Filtration Rate 87 mL/min (>60); Est Glom Filt Rate - Afr Amer 105 mL/min (>60); Glucose 111 mg/dL (74-106); Potassium 3.6 mmol/L (3.5-5.1); Sodium Level 141 mmol/L (136-145)
== END | disposition home or self-care (01) ==
LOC: PAVLAB 11:40
PROVIDERS: PCP Family Medicine; Referring Provider Internal Medicine Endocrinology, Diabetes & Metabolism; Visit Provider Internal Medicine Endocrinology, Diabetes & Metabolism
DX: E03.8 Other specified hypothyroidism (principal); E55.9 Vitamin D deficiency, unspecified
CPT/HCPCS: 36415; 80048; 82306; 84443

== ENCOUNTER 2024-08-09 13:59 | Outpatient (CLI) | payer MEDICARE, OTHER, SELFPAY ==
[2024-08-09 14:24] VITALS: BP 128/60; PULSE 73; RESP 16; TEMP 36.1; O2SAT 98
[2024-08-09] MEDS: Benralizumab 30 MG/ML Syringe SC (14:28)
== END 2024-08-09 23:59 | disposition home or self-care (01) ==
LOC: MEDOUTP 13:59
PROVIDERS: PCP Family Medicine; Referring Provider Nurse Practitioner Acute Care; Visit Provider Nurse Practitioner Acute Care
DX: J45.50 Severe persistent asthma, uncomplicated (principal)
CPT/HCPCS: 96372; J0517

== ENCOUNTER 2024-09-12 17:23 | Emergency (ER) | payer MEDICARE, OTHER, SELFPAY ==
[2024-09-12 17:23] VITALS: BP 137/89; PULSE 80; RESP 16; TEMP 36; O2SAT 99; BMI 29.4
--- NOTE | 2024-09-12 18:15 | EDS_ITS ---
HPI <HAYLEE Duran - Last Filed: 09/12/24 18:20> History of Present Illness Chief Complaint: Laceration Narrative Narrative: Patient 79-year-old male with history of GERD, asthma, celiac disease who presents to the emergency department with complaints of injury to the distal tip of the left index finger. Pay states he was using a tool for woodworking, when a blade struck him. Patient's tetanus vaccination is unknown. Patient states he did bleed for a while however he is here for evaluation. Denies any difficulty moving the area. PFSH <HAYLEE Duran - Last Filed: 09/12/24 18:20> COUNTS INCLUDE 234 BEDS AT THE [facility] Medical History JOSHUA (obstructive sleep apnea) History of back problems Fatigue Weight loss Lab test positive for detection of COVID-19 virus (~04/2020) Left femoral shaft fracture Osteopenia 2012 femur fracture [facility] DVT (deep venous thrombosis) Restless leg syndrome Iron deficiency anemia GERD (gastroesophageal reflux disease) Celiac disease Asthma Home Medications ?Medication ?Instructions ?Recorded ?Last Taken ?Type pantoprazole 40 mg tablet,delayed 40 mg PO QHS gerd 04/03/14 07/15/17 History release tamsulosin 0.4 mg capsule 0.4 mg PO QHS Enlarged prostate 07/12/17 01/06/24 History ibuprofen 200 mg capsule 200 mg PO BID PRN Pain 09/10/18 Unknown History ergocalciferol (vitamin D2) 1,250 50,000 unit PO WE 10/21/19 Unknown History mcg (50,000 unit) capsule benralizumab 30 mg/mL subcutaneous 30 mg subcut Q4W #1 mL 12/28/20 Unknown Rx syringe (Fasenra) levothyroxine 50 mcg tablet 100 mcg PO DAILY 03/21/22 01/06/24 History fluticasone propionate 50 2 spray NASAL BID PRN Congestion 03/25/22 Unknown Rx mcg/actuation nasal #16 grams spray,suspension albuterol sulfate 90 mcg/actuation 1 - 2 puff inhalation Q4H PRN PRN 09/22/23 Unknown Rx aerosol inhaler Sob &/Or Wheezing #8.5 grams budesonide-formoterol HFA 160 2 puff inhalation BID PRN asthma 11/25/23 Unknown History mcg-4.5 mcg/actuation aerosol inhaler (Symbicort) latanoprost 0.005 % eye drops 1 drp ophthalmic (eye) DAILY 11/25/23 Unknown History pramipexole 1.5 mg tablet 1.5 mg PO DAILY 11/25/23 Unknown History finasteride 5 mg tablet 5 mg PO DAILY 01/05/24 Unknown History Allergy/AdvReac Type Severity Reaction Status Date / Time gluten AdvReac Other Verified 09/12/24 17:23 Family History Father prostate cancer Surgical History History of colonoscopy (~09/24/20) History of esophagogastroduodenoscopy (EGD) (~09/24/20) History of hernia repair History of spinal surgery (~2016) History of repair of hip fracture History of cholecystectomy colonoscopy Social History Smoking Status: Former smoker alcohol intake: never substance use type: does not use ROS <HAYLEE Duran - Last Filed: 09/12/24 18:20> ROS ED ROS Narrative Constitutional: Negative for fever, chills, weight loss, weakness Eyes: Negative for vision loss, vision change, double vision ENT: Negative for any sore throat, ear pain, congestion Cardiovascular: Negative for any chest pain, tightness, palpitations Respiratory: Negative for any cough, sputum production, hemoptysis, dyspnea, dys pnea on exertion, orthopnea Gastrointestinal: Negative for any abdominal pain, nausea, vomiting, diarrhea, constipation, blood in stool, blood in vomit : Negative for any urinary frequency, dysuria, retention, blood in urine Muscle skeletal: Negative for any neck pain, back pain Neurological: Negative for any headache, syncope, dizziness Skin: Negative for any rashes, itching, abrasions. Positive for laceration to left index finger Psychiatric: Negative for any depression, anxiety, stress, suicidal ideation, homicidal ideation Hematologic: Negative for any excessive bruising, easy bleeding EXAM <HAYLEE Duran - Last Filed: 09/12/24 18:20> Physical Exam Narrative Exam Narrative: Vital signs reviewed. Extremities: No peripheral edema, no signs of gross trauma or deformity. Active full range of motion of all extremities. Patient has 2 small areas of epidermal avulsion like lacerations to the radial aspect of the distal left index finger. Patient is full range of motion. This injury is superficial. No active bleeding. Neuro: Cranial nerves II through XII intact, no focal neurological deficits. Skin: Clean dry and intact with no rash, purpura, petechiae, vesicles or pustules. Backs/flank: No CVA tenderness, no midline spinal tenderness, no deformity. Psych: Normal mood and affect. No SI, HI or acute psychosis. Const Vital Signs: 09/12/24 17:23 09/12/24 18:21 Temperature 96.8 F L 96.8 F L Temperature Source Temporal Pulse Rate 80 80 Respiratory Rate 16 16 Blood Pressure 137/89 H 137/89 H Blood Pressure Mean 105 105 Pulse Ox 99 99 Oxygen Delivery Method Room Air Positive well nourished and well developed General Appearance ED: well developed <Dr. Yung Ruvalcaba MD - Last Filed: 09/12/24 19:26> Physical Exam Const Vital Signs: 09/12/24 17:23 09/12/24 18:21 Temperature 96.8 F L 96.8 F L Temperature Source Temporal Pulse Rate 80 80 Respiratory Rate 16 16 Blood Pressure 137/89 H 137/89 H Blood Pressure Mean 105 105 Pulse Ox 99 99 Oxygen Delivery Method Room Air MDM <HAYLEE Duran - Last Filed: 09/12/24 18:20> [facility] Treatment and Re-Evaluation :: Differential diagnosis includes however is not limited to: Simple laceration, avulsion laceration, foreign body, tuft fracture Patient appears generally well, vital signs are stable, patient is nontoxic- appearing. Presenting to the emerged part with complaints of left index finger avulsion laceration from woodworking. Patient has 2 small areas that are less than 1 cm. This is on the radial side of the index finger. This is all above the DIP joint. Patient will have a bacitracin dressing, do not believe any suturing is necessary. Tetanus vaccination be updated. Instructed to return for any worsening symptoms. Keep the area clean and dry. <Dr. Yung Ruvalcaba MD - Last Filed: 09/12/24 19:26> [facility] Narrative Medical decision making narrative: I have personally performed a face to face assessment of the patient and have reviewed the SEBASTI[facility]N Note. I performed a substantive portion of the visit including all aspects of the following. My echeverria findings include: History is patient injured his left index finger accidentally while catching a router table that was falling. Had trouble getting the bleeding stopped but eventually it stopped prior to arrival. Not on any anticoagulants. Exam is epidermal avulsion with subcutaneous tissue exposed, no active bleeding, and no deeper structures exposed at the level of the DIPJ of the left index finger. Another nearby abrasion. Neurovasc intact distally full range of motion no bony tenderness Medical Decison Making supportive care, tetanus updated, wound cleansed and dressed with bacitracin. Nothing to repair. Other additions or changes: [None] Discharge Plan Triage Chief Complaint: Laceration ED Midlevel Provider: Wellington Mckinney ED Provider: Yung Ruvalcaba Dx/Rx/DC Orders Clinical Impression: Skin avulsion Instructions: ED Skin Tear (Skin Avulsion) Prescriptions: No Action fluticasone propionate 50 mcg/actuation spray,suspension 2 spray NASAL BID PRN (Reason: Congestion) Qty: 16 6RF albuterol sulfate 90 mcg/actuation HFA aerosol inhaler 1 - 2 puff INHALATION Q4H PRN PRN (Reason: Sob &/Or Wheezing) Qty: 8.5 6RF latanoprost 0.005 % drops 1 drp ophthalmic (eye) DAILY pramipexole 1.5 mg tablet 1.5 mg PO DAILY budesonide-formoterol [Symbicort] 160-4.5 mcg/actuation HFA aerosol inhaler 2 puff INHALATION BID PRN (Reason: asthma) pantoprazole 40 MG tablet 40 mg PO QHS Patient Comments: STOMACH tamsulosin 0.4 MG capsule 0.4 mg PO QHS Patient Comments: urinary retention medication ibuprofen 200 MG capsule 200 mg PO BID PRN (Reason: Pain) ergocalciferol (vitamin D2) 50,000 UNIT capsule 50,000 unit PO WE levothyroxine 50 mcg tablet 100 mcg PO DAILY finasteride 5 mg tablet 5 mg PO DAILY Patient Comments: TAKE 1 TABLET BY MOUTH EVERY DAY Fasenra 30 mg/mL syringe 30 mg SC Q4W Qty: 1 3RF Primary Care Provider: Keven Joseph Referrals: Keven Joseph DO [Primary Care Provider] - Activity Restrictions/Additional Instructions: Your tetanus vaccination is updated today. Print Language: Cymro Disposition Disposition: Home, Self Care Discharge Date/Time: 09/12/24 18:25
[2024-09-12] MEDS: Diphth,Pertuss(Acell),Tet Vac 0.5 ML Vial IM (18:19)
[2024-09-12 18:21] VITALS: BP 137/89; PULSE 80; RESP 16; TEMP 36; O2SAT 99
== END 2024-09-12 18:25 | disposition home or self-care (01) ==
PROVIDERS: Emergency Provider Emergency Medicine; PCP Family Medicine; Visit Provider Emergency Medicine
DX: S61.211A Laceration without foreign body of left index finger without damage to nail, initial encounter (principal); Z87.891 Personal history of nicotine dependence; K21.9 Gastro-esophageal reflux disease without esophagitis; J45.909 Unspecified asthma, uncomplicated; Z23 Encounter for immunization; W27.8XXA Contact with other nonpowered hand tool, initial encounter; S60.411A Abrasion of left index finger, initial encounter
CPT/HCPCS: 90715; 96372; 99282

== ENCOUNTER → 2024-09-22 | Outpatient (CLI) | payer MEDICARE, OTHER, SELFPAY ==
--- NOTE | 2024-09-22 14:48 | RAD_ITS ---
HISTORY: pain, weakness. TECHNIQUE: XR Shoulder Min 2 Views. COMPARISON: None. FINDINGS: BONES : No acute fracture identified. Old fracture of the distal clavicle. Old left second and third rib fractures. JOINTS: No dislocation. Mild degenerative change. Cervical spinal fusion hardware noted. SOFT TISSUES: Mild atelectasis in the left lung base. RAD/Shoulder min 2 Views IMPRESSION: No acute fracture or dislocation identified in the left shoulder. Old fractures of the left clavicle and upper ribs. Mild degenerative change. Electronically Signed: Denae Rivera MD at 10:42 EST ,
== END | disposition home or self-care (01) ==
PROVIDERS: PCP Family Medicine; Referring Provider Family Medicine; Visit Provider Family Medicine
DX: M25.512 Pain in left shoulder (principal); R53.1 Weakness
CPT/HCPCS: 73030

== ENCOUNTER 2024-10-04 13:56 | Outpatient (CLI) | payer MEDICARE, OTHER, SELFPAY ==
[2024-10-04 14:04] VITALS: BP 129/62; PULSE 68; RESP 16; TEMP 36.1; O2SAT 97; BMI 28.7
[2024-10-04] MEDS: Benralizumab 30 MG/ML Syringe SC (14:05)
== END 2024-10-04 23:59 | disposition home or self-care (01) ==
LOC: MEDOUTP 13:56
PROVIDERS: PCP Family Medicine; Referring Provider Nurse Practitioner Acute Care; Visit Provider Nurse Practitioner Acute Care
DX: J45.50 Severe persistent asthma, uncomplicated (principal)
CPT/HCPCS: 96372; J0517

== ENCOUNTER → 2024-10-04 | Outpatient (CLI) | payer MEDICARE, OTHER, SELFPAY ==
[2024-10-04 11:08] LABS: Anion Gap 3 (5-15); BUN 22 mg/dL (7-18); Calcium,Total 9.9 mg/dL (8.5-10.1); Chloride 110 mmol/L (98-107); Creatinine, Serum 0.85 mg/dL (0.70-1.30); EST Glomerular Filtration Rate 93 mL/min (>60); Est Glom Filt Rate - Afr Amer 113 mL/min (>60); Glucose 103 mg/dL (74-106); Potassium 4.2 mmol/L (3.5-5.1); Sodium Level 142 mmol/L (136-145)
== END | disposition home or self-care (01) ==
LOC: LAB.FUTURE 10:36 → PAVLAB 10:38
PROVIDERS: PCP Family Medicine; Referring Provider Internal Medicine Endocrinology, Diabetes & Metabolism; Visit Provider Internal Medicine Endocrinology, Diabetes & Metabolism
DX: E03.8 Other specified hypothyroidism (principal)
CPT/HCPCS: 36415; 80048

== ENCOUNTER 2024-10-13 12:51 | Outpatient (CLI) | payer MEDICARE, OTHER, SELFPAY ==
[2024-10-13 13:29] VITALS: BP 124/59; PULSE 75; RESP 16; TEMP 36.4; O2SAT 98
[2024-10-13] MEDS: DENOSUMAB 60 MG/ML SC (13:33)
== END 2024-10-13 23:59 | disposition home or self-care (01) ==
LOC: MEDOUTP 12:51
PROVIDERS: PCP Family Medicine; Referring Provider Physician Assistant Medical; Visit Provider Physician Assistant Medical
DX: M81.8 Other osteoporosis without current pathological fracture (principal)
CPT/HCPCS: 96372; J0897

== ENCOUNTER → 2024-11-02 | Outpatient (CLI) | payer MEDICARE, OTHER, SELFPAY | END | disposition home or self-care (01) | LOC: PSN 10:20 | PROVIDERS: PCP Family Medicine; Referring Provider Nurse Practitioner Family; Visit Provider Nurse Practitioner Family | DX: J45.50 Severe persistent asthma, uncomplicated (principal) ==

== ENCOUNTER 2024-11-05 12:38 | Emergency (ER) | payer MEDICARE, OTHER, SELFPAY ==
[2024-11-05] VITALS (8 sets, daily range): BP systolic 115–153; BP diastolic 68–78; PULSE 66–80; RESP 13–28; TEMP 35.9–37.2; O2SAT 97–100; BMI 28.2
--- NOTE | 2024-11-05 13:48 | EKG12_ITS ---
Test Reason : Blood Pressure : */* mmHG Vent. Rate : 69 BPM Atrial Rate : 69 BPM P-R Int : 196 ms QRS Dur : 94 ms QT Int : 416 ms P-R-T Axes : 44 23 24 degrees QTcB Int : 445 ms Normal sinus rhythm Cannot rule out Anterior infarct , age undetermined Abnormal ECG Confirmed by ALLEN SAMAYOA, ASYA ([id number]), writer editor MARCELLA DEJESUS ([id number]) on 11/07/2024 10:50:13 A M Referred By: Confirmed By: ASYA VILLA MD
--- NOTE | 2024-11-05 13:54 | EDS_ITS ---
HPI History of Present Illness Chief Complaint: Shortness of Breath Informant: patient and spouse/S.O. Onset/Context/Timing Onset: Weeks Context: gradual Timing: Intermittent Quality: Positive for Dyspnea on exertion; Negative for Wheezing Current Severity: Mild Maximum Severity: Mild Worsened by: Exertion Relieved by: Nothing Associated Symptoms Negative for cough Chest Pain: Positive for None Narrative Narrative: 79-year-old male history of asthma prior DVT and anemia. States been short of breath for about a month. Symptoms cause him difficulty sleeping. He denies chest pain. He denies fever or chills. He denies new cough. No hemoptysis. Worse with exertion. No leg swelling. States he really has been wheezing much and his aerosols do not make a huge difference. PE Risk Factors: Positive for Prior DVT or PE; Negative for Cancer, OCP + Smoking + > 35, Recent immobilization, Recent surgery or Recent travel Prior similar symptoms: Yes Recent Illness/Hospitalization: No PFSH PFSH Medical History JOSHUA (obstructive sleep apnea) History of back problems Fatigue Weight loss Lab test positive for detection of COVID-19 virus (~04/2020) Left femoral shaft fracture Osteopenia 2012 femur fracture [facility] DVT (deep venous thrombosis) Restless leg syndrome Iron deficiency anemia GERD (gastroesophageal reflux disease) Celiac disease Asthma Home Medications ?Medication ?Instructions ?Recorded ?Last Taken ?Type pantoprazole 40 mg tablet,delayed 40 mg PO QHS gerd 04/03/14 07/15/17 History release tamsulosin 0.4 mg capsule 0.4 mg PO QHS Enlarged prostate 07/12/17 01/06/24 History ibuprofen 200 mg capsule 200 mg PO BID PRN Pain 09/10/18 Unknown History ergocalciferol (vitamin D2) 1,250 50,000 unit PO WE 10/21/19 Unknown History mcg (50,000 unit) capsule benralizumab 30 mg/mL subcutaneous 30 mg subcut Q4W #1 mL 12/28/20 Unknown Rx syringe (Fasenra) levothyroxine 50 mcg tablet 100 mcg PO DAILY 03/21/22 01/06/24 History fluticasone propionate 50 2 spray NASAL BID PRN Congestion 03/25/22 Unknown Rx mcg/actuation nasal #16 grams spray,suspension albuterol sulfate 90 mcg/actuation 1 - 2 puff inhalation Q4H PRN PRN 09/22/23 Unknown Rx aerosol inhaler Sob &/Or Wheezing #8.5 grams pramipexole 1.5 mg tablet 1.5 mg PO DAILY 11/25/23 Unknown History finasteride 5 mg tablet 5 mg PO DAILY 01/05/24 Unknown History bimatoprost 0.03 % eye drops 1 drp ophthalmic (eye) QDAY 10/04/24 Unknown History denosumab 60 mg/mL subcutaneous 60 mg subcut [id number] 10/04/24 Unknown History syringe (Prolia) diclofenac potassium 50 mg tablet 50 mg PO TID PRN pain 10/04/24 Unknown History fluticasone 232 mcg-salmeterol 14 1 inh inhalation BID #1 ea 10/04/24 Unknown Rx mcg/actuation breath activated powdr prednisone 20 mg tablet 40 mg (2 x 20 mg) PO DAILY 5 days 11/05/24 Unknown Rx #10 tabs Allergy/AdvReac Type Severity Reaction Status Date / Time gluten AdvReac Other Verified 11/05/24 12:39 Family History Father prostate cancer Surgical History History of colonoscopy (~09/24/20) History of esophagogastroduodenoscopy (EGD) (~09/24/20) History of hernia repair History of spinal surgery (~2016) History of repair of hip fracture History of cholecystectomy colonoscopy Social History Smoking Status: Former smoker alcohol intake: never substance use type: does not use ROS ROS ED ROS Narrative Shortness of breath. No chest pain. No fever or cough. No leg swelling. No hemoptysis. Constitutional Constitutional ED: Denies chills or fever(s) Eyes Eyes: Denies blurry vision ENT ENT ED: Denies ear pain Cardiovascular Cardiovascular: Denies chest pain or palpitations Respiratory/Chest Respiratory/Chest: Reports dyspnea and dyspnea on exertion; Denies cough or spu violet Gastrointestinal Gastrointestinal: Denies abdominal pain or constipation Genitourinary Genitourinary ED: Denies dysuria or hematuria Musculoskeletal Musculoskeletal: Denies arthralgias or back pain Integumentary Denies abscess Neurologic Neurologic: Denies headache(s) Psychiatric Psychiatric: Denies anxiety or depression Endocrine Endocrinology: Denies cold intolerance Hematologic/Lymphatic Hematologic/Lymphatic: Denies easy bleeding Allergic/Immunologic Allergic/Immunologic ED: Denies mouth swelling EXAM Physical Exam Narrative Exam Narrative: Well-appearing 79-year-old male. Vital signs stable afebrile. Pulse ox 100% on room air no signs hypoxia. H EENT exam unremarkable. Moist mucous membranes. Neck nontender JVD. No lymphadenopathy. Lungs clear to auscultation bilaterally. Equal symmetrical. Currently there is no rales rhonchi or wheezing. Heart regular rate and rhythm rate about 80 no murmur. Chest wall and ribs nontender. Abdomen soft nontender. Moving all 4 extremities. Nontender no edema. Calves are nontender without cords. Back nontender. Neurologically is awake alert. No focal motor deficits. Answer questions following commands. at bedside. Const Vital Signs: 11/05/24 12:39 11/05/24 13:08 11/05/24 13:43 Temperature 96.7 F L 97.5 F L Temperature Source Temporal Oral Pulse Rate 80 72 Respiratory Rate 28 H 16 Respiratory Effort Short of Breath Respiratory Depth Deep Respiratory Pattern Tachypnea Blood Pressure 137/68 H 115/76 Blood Pressure Mean 91 89 Pulse Ox 100 97 Oxygen Delivery Method Room Air Room Air Room Air 11/05/24 13:53 11/05/24 14:05 11/05/24 15:00 Temperature 98.9 F 98.9 F Temperature Source Oral Oral Pulse Rate 68 66 Respiratory Rate 16 26 H Respiratory Effort Respiratory Depth Respiratory Pattern Blood Pressure 153/72 H 132/78 H Blood Pressure Mean 99 96 Pulse Ox 98 98 100 Oxygen Delivery Method Room Air Room Air Room Air 11/05/24 16:00 Temperature 98.6 F Temperature Source Oral Pulse Rate 78 Respiratory Rate 16 Respiratory Effort Respiratory Depth Respiratory Pattern Blood Pressure 141/78 H Blood Pressure Mean 99 Pulse Ox 99 Oxygen Delivery Method Room Air Positive well nourished and well developed; Negative for cachectic, contractures or unkempt General Appearance ED: well developed and NAD; Negative for unkempt, cachectic, contractures or pallor Nutritional Appearance: Negative for cachectic HEENT Reports moist mucous membranes atraumatic Eyes PERRL and EOMs intact bilaterally General Eye ED: Negative for pale conjunctiva or scleral icterus Neck no lymphadenopathy, supple, no meningeal signs and no JVD General: Negative for tenderness Resp normal respiratory effort and clear to auscultation bilaterally Effort and Inspection: Negative for pain with movement Auscultation: Negative for rales, rhonchi, wheezes or diminished lung sounds Cardio regular rate, regular rhythm, S1 normal heart sound, S2 normal heart sound and no murmurs Rate: Negative for bradycardia or tachycardic Rhythm: Negative for abnormal rhythm GI non-tender, non-distended and no masses Auscultation: normoactive bowel sounds Palpation: soft; Negative for tender or guarding Back/Spine no CVA tenderness and normal to inspection General Back: Negative for CVA tenderness or tenderness Extremity normal to inspection General Extremety ED: Negative for edema or tenderness General Extremity: Negative for edema Neuro oriented x3 and CN's II-XII intact bilaterally Sensorium / Orientation: alert, oriented to person, oriented to place and oriented to time; Negative for orientation impaired or confused Speech: speech normal Psych mental status grossly normal Appearance: Negative for unkempt Attitude: No agitated Mood & Affect: Negative for depressed, anxious or tearful Thought Process: normal thought process Skin no wounds and skin turgor normal General Skin Exam: Negative for jaundice or pallor Lesions: no lesions Rashes: no rashes MDM MDM MDM Narrative Medical decision making narrative: 79-year-old male short of breath for a month. Differential would include his asthma but is not wheezing and her only thing gets that. It does not sound cardiac. May be secondary to anemia. Has had a prior DVT. Cardiac workup with a D-dimer will be obtained. He does not need aerosol treatments at this time. History & Record Review Discussion w/independent historian: Patient and Family Additional record(s) reviewed:: Prior inpatient record, Prior outpatient record, Prior ED visit and Prior labs Lab Data Attestation: I reviewed the patient's lab results. Lab results narrative: CBC white count of 4 H&H 11.3 and 34 which is baseline chronic anemia. Platelets 224. D-dimer is elevated at 1.51. Troponin is normal at 4. Electrolytes show a gap of 6. Normal BUN of 16 and creatinine 0.8. Glucose 125. Chest x-ray chronic changes. Labs: Laboratory Results - last 24 hr 11/05/24 13:25 WBC 4.3 L RBC 3.64 L Hgb 11.3 L Hct 34.3 L MCV 94.2 H MCH 31.0 MCHC 32.9 RDW Std Deviation 47.9 H RDW Coeff of [place] 14.0 Plt Count 224 MPV 10.5 Immature Gran % (Auto) 0.700 Neut % (Auto) 59.9 Lymph % (Auto) 22.0 [place] % (Auto) 17.2 H Eos % (Auto) 0.0 Baso % (Auto) 0.2 Absolute Neuts (auto) 2.6 Absolute Lymphs (auto) 0.95 Nucleated RBC % 0 D-Dimer Quant (PE/DVT) 1.51 H* Sodium 144 Potassium 3.5 Chloride 115 H Carbon Dioxide 23.0 Anion Gap 6 BUN 16 Creatinine 0.87 Estim Creat Clear Calc 83.50 Est GFR (MDRD) Af Amer 109 Est GFR (MDRD) Non-Af 90 BUN/Creatinine Ratio 18.4 Glucose 125 H Calcium 9.3 Troponin I High Sens 4 B-Natriuretic Peptide 79.0 Radiography Chest X-Ray - ED: 2 View, Read by ED Physician, Normal, Heart, Lungs, Mediastinum, Bony Structures, No Acute Disease and Chronic Changes Diagnostic Testing: Clinical Impression(s) from Imaging Studies Chest X-Ray 11/05/24 14:05 IMPRESSION: COPD/emphysematous changes and interstitial fibrosis Electronically Signed: Rachid Ford MD at 15:41 EST Reading Location ID and State: [address] [place] [address] , Service support , Chest CTA 11/05/24 14:29 IMPRESSION: 1. No demonstrated pulmonary embolism or arterial dissection. 2. COPD/cystic emphysematous changes 3. Right lung nodules = 5.1 mm nodule in the apex and far anterior subpleural of the right upper lobe seen on image 182/252 series 2. 5.1 mm nodule in the far posterior aspect of the right upper lobe seen on image 209/252 series 2. These nodules should be followed up according to Fleischner Society''s criteria. 4. There is an lobular outpouching of the anterior aspect of the superior pole of the left kidney, which appears to represent a dromedary hump or localization of the renal parenchyma and was present on the July 15, 2023 study and is not favored to represent a renal mass. However a renal ultrasound or MRI of the abdomen with and without contrast should be obtained for definitive assessment. See image #1/252 series 2 Recommendation: CT lung cancer annual screening exam is recommended for patients with a high risk factors for developing lung including current or previous smoking history, COPD, emphysema, and interstitial lung disease. REFERENCE, ONLY IF CLINICALLY RELEVANT OR IF LUNG NODULES ARE PRESENT: FLEISCHNER SOCIETY RECOMMENDATIONS FOR FOLLOW-UP OF SMALL SOLID LUNG NODULES DETECTED INCIDENTALLY ON CT (for PATIENTS ? 35 YEARS OF AGE with no known extra-pulmonary cancer and no clinical evidence of infection). 4-6mm: Low Risk - CT at 12 months; if stable, no further follow-up. High Risk - Initial CT at 6-12 months; if stable, repeat CT at 18-24 months Electronically Signed: Rachid Ford MD at 15:52 EST Reading Location ID and State: [address] [place] [address] , Service support , Chest x-ray, 2 views, AP and lateral, interpreted by myself shows chronic changes. Normal cardiac silhouette. Normal lung kinney. No pneumonia. No effusions. No CHF. Rhythm Strip Rhythm Strip: Sinus Rhythm Rate: 69 Ectopy: None EKG Initial EKG: Attestation: I personally reviewed and interpreted this EKG as follows: Interpretation: Sinus Rhythm and No Acute Injury Pattern Comments: Normal sinus rhythm rate is 69 no acute signs of SC or ischemia Discharge Plan Triage Chief Complaint: Shortness of Breath ED Provider: Mario Koo Dx/Rx/DC Orders Clinical Impression: Acute dyspnea, History of asthma, COPD (chronic obstructive pulmonary disease) with emphysema, History of deep vein thrombosis Instructions: ED Dyspnea Prescriptions: New prednisone 20 mg tablet 40 mg PO DAILY 5 Days Qty: 10 0RF No Action fluticasone propionate 50 mcg/actuation spray,suspension 2 spray NASAL BID PRN (Reason: Congestion) Qty: 16 6RF albuterol sulfate 90 mcg/actuation HFA aerosol inhaler 1 - 2 puff INHALATION Q4H PRN PRN (Reason: Sob &/Or Wheezing) Qty: 8.5 6RF pramipexole 1.5 mg tablet 1.5 mg PO DAILY bimatoprost 0.03 % drops 1 drp ophthalmic (eye) QDAY diclofenac potassium 50 mg tablet 50 mg PO TID PRN (Reason: pain) Prolia 60 mg/mL syringe 60 mg subcut [id number] fluticasone propion-salmeterol 232-14 mcg/actuation aerosol powdr breath activated 1 inh inhalation BID Qty: 1 11RF pantoprazole 40 MG tablet 40 mg PO QHS Patient Comments: STOMACH tamsulosin 0.4 MG capsule 0.4 mg PO QHS Patient Comments: urinary retention medication ibuprofen 200 MG capsule 200 mg PO BID PRN (Reason: Pain) ergocalciferol (vitamin D2) 50,000 UNIT capsule 50,000 unit PO WE levothyroxine 50 mcg tablet 100 mcg PO DAILY finasteride 5 mg tablet 5 mg PO DAILY Patient Comments: TAKE 1 TABLET BY MOUTH EVERY DAY Fasenra 30 mg/mL syringe 30 mg SC Q4W Qty: 1 3RF Primary Care Provider: Keven Joseph Referrals: Keven Joseph DO [Primary Care Provider] - 1 Week Activity Restrictions/Additional Instructions: Your labs CAT scan and chest x-ray look good. This may be either secondary to your asthma or underlying lung disease. He will be placed on prednisone 40 mg a day for 5 days to see if that will help. Use your inhaler as needed. Follow-up with your doctor to ensure you are improving. Return if a lot worse. Print Language: Iraqi Disposition Disposition: Home, Self Care
[2024-11-05 14:01] LABS: Absolute Lymphocyte Count 0.95 X10^3/uL (0.83-4.51); Absolute Neutrophil Count 2.6 X10^3/uL (2.0-7.7); Basophil# 0.01 X10^3/uL; Basophil% 0.2 % (0-1); Hematocrit 34.3 % (40-54); Hemoglobin 11.3 g/dL (13.0-16.5); Lymphocyte # 0.95 X10^3/ul (0.83-4.51); Mean Corp Hgb Conc 32.9 g/dL (32-36); Mean Corpuscular Volume 94.2 fL (80-94); Mean Platelet Vol. 10.5 fl (6.2-12.0); Monocyte# 0.74 X10^3/uL; Monocyte% 17.2 % (0-10); NRBC Flagged by Analyzer 0 % (0-5); Neutrophil # 2.58 X10^3/uL (2.7-7.7); Neutrophil % 59.9 % (47-70); Platelet Count 224 K/mm3 (150-450); RBC Distribution Width SD 47.9 fl (35.1-43.9); Red Blood Count 3.64 M/mm3 (4.6-6.2); White Blood Count 4.3 K/mm3 (4.4-11.0)
--- NOTE | 2024-11-05 14:05 | RAD_ITS ---
STUDY: X-RAY CHEST REASON FOR EXAM: Male, 79 years old. chest pain TECHNIQUE: PA and lateral views of the chest. COMPARISON: July 12, 2017 FINDINGS: 1. COPD/emphysematous changes and interstitial fibrosis 2. No consolidation or infiltrates 3. No pleural effusion 4. No pneumothorax 5. Small calcified granuloma seen in the superior segment of the left lower lobe 6. Normal heart size 7. Stable mediastinum and osseous structures. There is no demonstrated abnormality of the visualized soft tissue structures of the upper abdomen. RAD/Chest PA and Lateral IMPRESSION: COPD/emphysematous changes and interstitial fibrosis Electronically Signed: Rachid Ford MD at 15:41 EST ,
[2024-11-05 14:17] LABS: D-Dimer Quantitative (DVT/PE) 1.51 FEU/ug/m (0.27-0.49)
[2024-11-05 14:18] LABS: Anion Gap 6 (5-15); BUN 16 mg/dL (7-18); BUN/Creat Ratio 18.4 RATIO (10-20); Calcium,Total 9.3 mg/dL (8.5-10.1); Chloride 115 mmol/L (98-107); Creatinine, Serum 0.87 mg/dL (0.70-1.30); EST Glomerular Filtration Rate 90 mL/min (>60); Est Glom Filt Rate - Afr Amer 109 mL/min (>60); Glucose 125 mg/dL (74-106); Potassium 3.5 mmol/L (3.5-5.1); Sodium Level 144 mmol/L (136-145); Troponin-I HS 4 pg/mL (3.0-78.0)
--- NOTE | 2024-11-05 14:29 | CT_ITS ---
STUDY: CTA CHEST REASON FOR EXAM: Male, 79 years old. Dyspnea and elevated d-dimer RADIATION DOSAGE (If Supplied By Facility): CTDIvol = ( 14.99 ) mGy, DLP = ( 414.20 ) mGycm TECHNIQUE: The examination was performed with the intravenous administration of IV 100mL Isovue-370. Post-processing of the angiographic images was performed, with multiplanar reformation and 3D reconstruction. Individualized dose optimization techniques were used for this CT. COMPARISON: Chest x-ray dated November 05, 2024. FINDINGS: COPD/cystic emphysematous changes and mild scattered interstitial fibrosis. There is a calcified granuloma of the superior segment and retrocardiac region of the left lower lobe. 5.1 mm nodule in the apex and far anterior subpleural of the right upper lobe seen on image 182/252 series 2. 5.1 mm nodule in the far posterior aspect of the right upper lobe seen on image 209/252 series 2. These nodules should be followed up according to Fleischner Society''s criteria. No additional nodules are present. No visualized masses. Pleural parenchymal scarring and thickening is chronic and present in the bilateral upper lobes up to the apices. Normal enhancement of the main pulmonary artery and right and left pulmonary arteries. Normal enhancement of the bilateral peripheral pulmonary arteries. There is no demonstrated pulmonary embolism. There is atherosclerotic calcification of the aortic arch with tortuosity. There is no demonstrated aortic dissection. Normal heart and pericardium. There are calcifications of the coronary arteries. Normal mediastinum. Normal hilar regions. Normal visualized trachea and bronchi. The lungs are well expanded. Normal chest wall structures. There are degenerative changes of thoracic spine. Included upper abdomen: A few benign small cyst is seen in the liver which do not requiring additional imaging or assessment. The remaining visualized upper abdominal structures are grossly unremarkable. Small cyst partially seen in the kidneys. There is an lobular outpouching of the anterior aspect of the superior pole of the left kidney, which appears to represent a dromedary hump or localization of the renal parenchyma and was present on the July 15, 2023 study and is not favored to represent a renal mass. However a renal ultrasound or MRI of the abdomen with and without contrast should be obtained for definitive assessment. See image #1/[address]/CTA Chest W/WO Contrast IMPRESSION: 1. No demonstrated pulmonary embolism or arterial dissection. 2. COPD/cystic emphysematous changes 3. Right lung nodules = 5.1 mm nodule in the apex and far anterior subpleural of the right upper lobe seen on image 182/252 series 2. 5.1 mm nodule in the far posterior aspect of the right upper lobe seen on image 209/252 series 2. These nodules should be followed up according to Fleischner Society''s criteria. 4. There is an lobular outpouching of the anterior aspect of the superior pole of the left kidney, which appears to represent a dromedary hump or localization of the renal parenchyma and was present on the July 15, 2023 study and is not favored to represent a renal mass. However a renal ultrasound or MRI of the abdomen with and without contrast should be obtained for definitive assessment. See image #1/252 series 2 Recommendation: CT lung cancer annual screening exam is recommended for patients with a high risk factors for developing lung including current or previous smoking history, COPD, emphysema, and interstitial lung disease. REFERENCE, ONLY IF CLINICALLY RELEVANT OR IF LUNG NODULES ARE PRESENT: FLEISCHNER SOCIETY RECOMMENDATIONS FOR FOLLOW-UP OF SMALL SOLID LUNG NODULES DETECTED INCIDENTALLY ON CT (for PATIENTS ? 35 YEARS OF AGE with no known extra-pulmonary cancer and no clinical evidence of infection). 4-6mm: Low Risk - CT at 12 months; if stable, no further follow-up. High Risk - Initial CT at 6-12 months; if stable, repeat CT at 18-24 months Electronically Signed: Rachid Ford MD at 15:52 EST ,
[2024-11-05] MEDS: predniSONE 20 MG Tablet 40 MG PO (17:15)
== END 2024-11-05 17:17 | disposition home or self-care (01) ==
PROVIDERS: Emergency Provider Emergency Medicine; PCP Family Medicine; Visit Provider Emergency Medicine
DX: R06.02 Shortness of breath (principal); J43.9 Emphysema, unspecified; Z87.891 Personal history of nicotine dependence; Z86.718 Personal history of other venous thrombosis and embolism; K21.9 Gastro-esophageal reflux disease without esophagitis
CPT/HCPCS: 71046; 71275; 80048; 83880; 84484; 85025; 85379; 93005; 99284; Q9967; A4216

== ENCOUNTER → 2024-11-07 | Outpatient (CLI) | payer MEDICARE, OTHER, SELFPAY ==
[2024-11-07 12:45] VITALS: PULSE 81; PULSE 82; PULSE 91; PULSE 92; PULSE 95; PULSE 97; O2SAT 96; O2SAT 97; O2SAT 98
--- NOTE | 2024-11-15 09:55 | PCM.PSN.6M ---
PSN 6 Minute Walk Test 6 Minute Walk Test 6 Minute Walk Test: 6 Minute Walk Test PSN:6-Minute Walk Test Start: 11/07/24 12:45 Freq: Status: Active Protocol: RESP.6MINW Document 11/07/24 12:45 LUIS (Rec: 11/07/24 12:47 CONNIEON [id number]) 6 Minute Walk Test Date Performed 11/07/24 Time Performed 12:30 Height 6 ft Weight: 215 lb Weight in Pounds 215.[address]: Ivelisse Orantes Assistive device used: None Pre-test Oxygen Delivery Method Room Air Pulse Ox (%) 97 Pulse Rate (60-100 beats/min) 81 Dyspnea Enedina Scale (0-10) 0.5 Exertion [place]edina Scale (6-20) 6 1st minute Oxygen Delivery Method Room Air Pulse Ox (%) 97 Pulse Rate (60-100 beats/min) 91 2nd minute Oxygen Delivery Method Room Air Pulse Ox (%) 96 Pulse Rate (60-100 beats/min) 92 3rd minute Oxygen Delivery Method Room Air Pulse Ox (%) 96 Pulse Rate (60-100 beats/min) 95 4th minute Oxygen Delivery Method Room Air Pulse Ox (%) 97 Pulse Rate (60-100 beats/min) 95 5th minute Oxygen Delivery Method Room Air Pulse Ox (%) 98 Pulse Rate (60-100 beats/min) 95 6th minute Oxygen Delivery Method Room Air Pulse Ox (%) 97 Pulse Rate (60-100 beats/min) 97 Dyspnea Enedina Scale (0-10) 3 Exertion Enedina Scale (6-20) 13 Post-test Oxygen Delivery Method Room Air Pulse Ox (%) 97 Pulse Rate (60-100 beats/min) 82 Full Laps Walked 17 Partial Lap, Number of Tiles Walked 17 Total Distance Walked (ft) 1020 Interpretation Interpretation: The patient ambulated 1020 feet over the course of 6 minutes beginning on room air without assistive devices. Pretesting oxygen saturation was noted to be 97% on room air. With ambulation, the jenise oxygen saturation was 96%. There was no significant exertional oxygen desaturation. Recommendations Recommendations: There is no indication for the use of supplemental oxygen at this time.
== END | disposition home or self-care (01) ==
LOC: PSN 12:17
PROVIDERS: PCP Family Medicine; Referring Provider Nurse Practitioner Family; Visit Provider Nurse Practitioner Family
DX: J45.50 Severe persistent asthma, uncomplicated (principal)
CPT/HCPCS: 94618

== ENCOUNTER → 2024-11-08 | Outpatient (CLI) | payer MEDICARE, OTHER, SELFPAY | END | disposition home or self-care (01) | LOC: SL 10:07 | PROVIDERS: PCP Family Medicine; Visit Provider Family Medicine | DX: Z00.00 Encounter for general adult medical examination without abnormal findings (principal) ==

== ENCOUNTER 2024-11-30 13:53 | Outpatient (CLI) | payer MEDICARE, OTHER, SELFPAY ==
[2024-11-30 14:00] VITALS: BP 128/58; PULSE 72; RESP 16; TEMP 36.5; O2SAT 98
[2024-11-30] MEDS: Benralizumab 30 MG/ML Syringe SC (14:03)
== END 2024-11-30 23:59 | disposition home or self-care (01) ==
LOC: MEDOUTP 13:54
PROVIDERS: PCP Family Medicine; Referring Provider Nurse Practitioner Acute Care; Visit Provider Nurse Practitioner Acute Care
DX: J45.50 Severe persistent asthma, uncomplicated (principal)
CPT/HCPCS: 96372; J0517

== ENCOUNTER → 2024-12-07 | Outpatient (CLI) | payer MEDICARE, OTHER, SELFPAY ==
[2024-12-07 11:33] LABS: Anion Gap 6 (5-15); BUN 20 mg/dL (7-18); BUN/Creat Ratio 24.9 RATIO (10-20); Calcium,Total 9.1 mg/dL (8.5-10.1); Chloride 110 mmol/L (98-107); EST Glomerular Filtration Rate 99 mL/min (>60); Est Glom Filt Rate - Afr Amer 120 mL/min (>60); Ferritin 30 ng/mL (26-388); Glucose 106 mg/dL (74-106); Potassium 3.7 mmol/L (3.5-5.1); Sodium Level 142 mmol/L (136-145)
[2024-12-08 14:39] LABS: Vitamin D,25 Hydroxy 65.2 ng/mL
== END | disposition home or self-care (01) ==
PROVIDERS: PCP Family Medicine; Referring Provider Nurse Practitioner Family; Visit Provider Nurse Practitioner Family
DX: E03.8 Other specified hypothyroidism (principal); E55.9 Vitamin D deficiency, unspecified; E61.1 Iron deficiency
CPT/HCPCS: 36415; 80048; 82306; 82728; 84443

== ENCOUNTER 2024-12-28 09:30 | Outpatient (RCR) | payer MEDICARE, OTHER, SELFPAY ==
--- NOTE | 2024-10-11 12:31 | HP.PTEVAL_ITS ---
Patient's Visit Information Visit Information Visit Information: EVA GONZALEZ is a 79 year old M referred to Physical Therapy by Dr. Keven Joseph DO with a diagnosis of Pain in shoulder. Date of Evaluation: 10/11/24 Physical Therapist: DEB Villalobos Visit Plan Frequency: 2x /Week Duration: 2 Months Plan: 2X/ week for 8 weeks for AAROM, AROM of B shoulders (mostly L), postural exercises, scapular exercises, light neck retraction to help with posture that might be impacting shoulder ROM, HEP and modalities as needed HEP: wall posture, supine wand flexion shoulder, and green band mid row Subjective Subjective: Pt had some arthritis in R shoulder and he got a cortisone shot and 2 days later her fell (tripped over dog leash) and fell on the R and could not move it for a few days. He went to Urgent Care and did x-rays with no fx and then went to and put him on some med. Shortly after that he fell again on the L shoulder and the pain was in Both shoulders. The R has no been as bad until recently. He has pain along the R clavicle. 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 He could not lift his L shoulder in the office but now he can move it, just painful. Both shoulders are really painful. His pain comes and goes. Harley was his friend and now he is on a new med and it helps but there are days pain is 3-5/10 and this morning pain is 8-9/10. He has R clavicle pain and pain down both arms and describes it as an ache. He has had a previous neck fusion and that is painful also. He feels the neck pain is worse because the shoulders are painful. He did do an injection now on B sides and he reports that he thinks they are helping some. Pain R shoulder: Pain Intensity (Out of 10): 8 L shoulder pain: Pain Intensity (Out of 10): 5 neck pain: Pain Intensity (Out of 10): 8 Objective Objective: R handed: [employer] Strength: R 65# and L 70# Neck AROM: flexion 50%, ext 10%, R Rotation 50 and L 50%, B SB 10% (increase pain at all end ranges) Posture: very rounded shoulders and flexed head Bicep Reflex 2+/3 B UE MMT: R shoulder flex 142 and L 118 (increase pain) R shoulder ABD 140 and L 120 (increase pain) R shoulder ER 55 and L 40 R shoulder IR T12 and L T12 UE MMT: R shoulder flex 8.5 and L 6.1 R shoulder ABD 8 and L 4.7 R shoulder ER 10.7 and L 5.9 R shoulder IR 11.6 and L 6.6 Painful PROM on the L starting at approx 100. Pain at end range flexion on the R at approx 140 degrees. Supine wand flexion was painful for the patient on the L...instructed pt to go up to the pain and not through the pain. Balance/Special Test Scores Quick DASH Score: 54.5450 Goals Goal 1:: I HEP Goal Time Frame: 6-8 Weeks Goal 2:: Increase L shoulder AROM (at the time of the eval: UE MMT: R shoulder flex 142 and L 118 (increase pain) R shoulder ABD 140 and L 120 (increase pain) R shoulder ER 55 and L 40 R shoulder IR T12 and L T12) Goal Time Frame: 6-8 Weeks Goal 3:: Increase L shoulder strength (at the time of the eval: UE MMT: R shoulder flex 8.5 and L 6.1 R shoulder ABD 8 and L 4.7 R shoulder ER 10.7 and L 5.9 R shoulder IR 11.6 and L 6.6) Goal Time Frame: 6-8 Weeks Goal 4:: Sit with upright posture during treatment sessions Goal Time Frame: 6-8 Weeks Rehabilitation Potential Rehabilitation Potential: Good Anticipated Interventions Patient/Client Instruction: Educate patient on: Condition and Plan of Care For the Purpose of:: To decrease pain, To increase ROM, To improve nutrient delivery to tissue, To improve muscle performance and motor function, To improve ability to perform ADL's, To increase tolerance to activity/condition/position, To improve performance and independence with ADL's, To decrease level of supervision to perform tasks, To improve health of tissue, To decrease soft tissue restriction and To increase flexibility/ROM Therapeutic Exercise to Include: Strength training, Endurance training, Postural training, Flexibilty training, Neuromotor development, Passive ROM, Active ROM and Scapular Strength/Stabilization For the Purpose of:: To decrease pain, To increase ROM, To improve nutrient delivery to tissue, To improve muscle performance and motor function, To improve ability to perform ADL's, To increase tolerance to activity/condition/position, To improve performance and independence with ADL's, To decrease level of supervision to perform tasks, To improve ability of physical actions for home/community/work/leisure, To improve health of tissue, To decrease soft tissue restriction and To increase flexibility/ROM Manual Therapy Techniques to Include: Passive ROM For the Purpose of:: To increase ROM Cryotherapy (ice pack, ice massage): Yes Thermo therapy (hot pack): Yes For the Purpose of:: To decrease pain, To increase ROM and To improve nutrient delivery to tissue Text: Thank you for the opportunity to evaluate your patient. For Medicare and Medicare HMO plans, please review the plan of care and approve it. It will need to be FAXED BACK to us at [phone] for Medicare purposes. For Medicare only, by signing this I certify the plan of care. Please let me know if there are questions or concerns regarding this plan of care. Physician Signature: Date:
--- NOTE | 2024-11-09 11:06 | HP.PTREVAL ---
Re-Evaluation Intro: Dr. Keven Joseph, DO, It has been my pleasure to treat EVA GONZALEZ over the last 8 visits for Pain in shoulder. Please see the progress note below for an update on the physical therapy plan of care! Subjective Subjective: Pt had pain this morning in the neck and the shoulder but not as bad as now. He still feels off since his fall. He got his CPAP figured out and it might take a month but getting there. Objective Objective/Function: R shoulder flex 154 and L 134 (increase pain) R shoulder ABD 150 and L 134 (increase pain) R shoulder ER 55 and L 62 R shoulder IR T12 and L T12 R shoulder flex 13.4 and L 12.2 R shoulder ABD 8 and L 8 R shoulder ER 10.7 and L 9.5 R shoulder IR 14/7 and L 16.6 Plan Plan Plan: 2X/ week for 8 weeks for AAROM, AROM of B shoulders (mostly L), postural exercises, scapular exercises, light neck retraction to help with posture that might be impacting shoulder ROM, HEP and modalities as needed Balance/Gait/Functional tests Balance/Special Test Scores Quick DASH Score: 43.1800 Goals Goals Goal 1:: I HEP Goal Time Frame: 6-8 Weeks Goal 2:: Increase L shoulder AROM (at the time of the eval: UE AROM: R shoulder flex 142 and L 118 (increase pain) R shoulder ABD 140 and L 120 (increase pain) R shoulder ER 55 and L 40 R shoulder IR T12 and L T12) Goal Time Frame: 6-8 Weeks Goal Progress: Progressing Goal 3:: Increase L shoulder strength (at the time of the eval: UE MMT: R shoulder flex 8.5 and L 6.1 R shoulder ABD 8 and L 4.7 R shoulder ER 10.7 and L 5.9 R shoulder IR 11.6 and L 6.6) Goal Time Frame: 6-8 Weeks Goal Progress: Progressing Goal 4:: Sit with upright posture during treatment sessions Goal Time Frame: 6-8 Weeks Goal Progress: Progressing Anticipated Interventions Anticipated Interventions Patient/Client Instruction: Educate patient on: Condition and Plan of Care For the Purpose of:: To decrease pain, To increase ROM, To improve nutrient delivery to tissue, To improve muscle performance and motor function, To improve ability to perform ADL's, To increase tolerance to activity/condition/position, To improve performance and independence with ADL's, To decrease level of supervision to perform tasks, To improve health of tissue, To decrease soft tissue restriction and To increase flexibility/ROM Therapeutic Exercise to Include: Strength training, Endurance training, Postural training, Flexibilty training, Neuromotor development, Passive ROM, Active ROM and Scapular Strength/Stabilization For the Purpose of:: To decrease pain, To increase ROM, To improve nutrient delivery to tissue, To improve muscle performance and motor function, To improve ability to perform ADL's, To increase tolerance to activity/condition/position, To improve performance and independence with ADL's, To decrease level of supervision to perform tasks, To improve ability of physical actions for home/community/work/leisure, To improve health of tissue, To decrease soft tissue restriction and To increase flexibility/ROM Manual Therapy Techniques to Include: Passive ROM For the Purpose of:: To increase ROM Cryotherapy (ice pack, ice massage): Yes Thermo therapy (hot pack): Yes For the Purpose of:: To decrease pain, To increase ROM and To improve nutrient delivery to tissue Re-Evaluation Ending Re-evaluation ending: Please do not hesitate to contact me at [phone] by phone or if you have questions or concerns regarding this new plan of care! Sincerely, Joan Muñoz, MPT
--- NOTE | 2024-12-28 10:11 | HP.PTDCSUM_ITS ---
Discharge Summary D/C summary: It has been my pleasure to treat EVA GONZALEZ referred by Dr. Keven Joseph DO, with the diagnosis of Pain in shoulder for a total of 19 visit(s). Discharge Date: 12/28/24 Please see the following information for a summary of their discharge status. Subjective Subjective: Pt reports that he is about 60% better. His pain is not gone. He reports that he thinks it is the muscles. He reports that he thinks about his posture a lot more than he used too. Pain R shoulder: Pain Intensity (Out of 10): 3 L shoulder pain: Pain Intensity (Out of 10): 1 neck pain: Pain Intensity (Out of 10): 3 Overall Improvement % Improvement: 60 Objective Objective/Function: Posture: pt has better posture throughout treatment sessions and reports that he is more aware of his posture UE AROM: R shoulder flex 142 and L 139 (increase pain) R shoulder ABD 155 and L 141 (increase pain) R shoulder ER 55 and L 40 UE MMT: R shoulder flex 14 and L 13.2 R shoulder ABD 12.9 and L 9.6 R shoulder ER 10.7 and L 7.9 R shoulder IR 11.6 and L 6.6) Goals Goal 1:: I HEP Goal 2:: Increase L shoulder AROM (at the time of the eval: UE AROM: R shoulder flex 142 and L 118 (increase pain) R shoulder ABD 140 and L 120 (increase pain) R shoulder ER 55 and L 40 R shoulder IR T12 and L T12) Goal Progress: Goal Met Goal 3:: Increase L shoulder strength (at the time of the eval: UE MMT: R shoulder flex 8.5 and L 6.1 R shoulder ABD 8 and L 4.7 R shoulder ER 10.7 and L 5.9 R shoulder IR 11.6 and L 6.6) Goal Progress: Goal Met Goal 4:: Sit with upright posture during treatment sessions Goal Progress: Progressing Plan Plan: DC PT to [facility] and back to about his neck. D/C Information Discharge Comments: DC PT to [facility] d/c sentence: If there are questions or concerns regarding this patient's physical therapy, please feel free to call me at [phone]. Thank you for the referral of this patient. Sincerely, Joan Muñoz, MPT Balance/Gait/Functional tests Balance/Special Test Scores Quick DASH Score: 25.0000 Improvement % Improvement: 60
== END 2024-12-28 19:00 | disposition home or self-care (01) ==
LOC: PT 09:30
PROVIDERS: PCP Family Medicine; Referring Provider Family Medicine; Visit Provider Family Medicine
DX: M25.512 Pain in left shoulder (principal); M25.511 Pain in right shoulder
CPT/HCPCS: 97110; 97140; 97162; 97530

== ENCOUNTER 2025-01-24 13:57 | Outpatient (CLI) | payer MEDICARE, OTHER, SELFPAY ==
[2025-01-24 14:06] VITALS: BP 134/72; PULSE 72; RESP 18; TEMP 36.5; O2SAT 99
[2025-01-24] MEDS: Benralizumab 30 MG/ML Syringe SC (14:08)
== END 2025-01-24 23:59 | disposition home or self-care (01) ==
LOC: MEDOUTP 13:58
PROVIDERS: PCP Family Medicine; Referring Provider Nurse Practitioner Acute Care; Visit Provider Nurse Practitioner Acute Care
DX: J45.50 Severe persistent asthma, uncomplicated (principal)
CPT/HCPCS: 96372; J0517

== ENCOUNTER → 2025-02-13 | Outpatient (CLI) | payer MEDICARE, OTHER, SELFPAY | END | disposition home or self-care (01) | LOC: BFHLAB 15:34 → LABSPEC 15:36 | PROVIDERS: PCP Family Medicine; Visit Provider Family Medicine | DX: I83.209 Varicose veins of unspecified lower extremity with both ulcer of unspecified site and inflammation (principal); L97.929 Non-pressure chronic ulcer of unspecified part of left lower leg with unspecified severity | CPT/HCPCS: 87070; 87075; 87077; 87186; 87205 ==

== ENCOUNTER → 2025-03-14 | Outpatient (CLI) | payer MEDICARE, OTHER, SELFPAY ==
--- NOTE | 2025-03-04 18:51 | HP.PCM_ITS ---
History of Present Illness Date of Service: 03/02/25 Chief Complaint: Left medial ankle wound History of Wound: The patient is seen today as a courtesy visit for Dr. Merrill Burns, the patient's regular Wound Center provider. The patient's medical history is as recently documented below. Patient is a 79-year-old male who presents to the wound care center with recurring left lower extremity medial ankle wound. He has PMHx of recurring left lower extremity ulceration secondary to chronic venous insufficiency, history of DVT, obesity, JOSHUA, iron deficient anemia, delayed wound healing, and asthma. He states that he does have compression stockings and continues to wear them. He had been following in the wound care center for a deep ulceration to the medial aspect of the left lower extremity overlying the neurovascular bundle. He did go on to heal this ulceration as of 12/31/[address] Mckee for venogram. He has continued wearing compression stockings however states that while in the shower he did notice a scab of the left medial ankle and after showering applied antibiotic ointment and Band-Aid which later then the scab became soft and opened a small wound. He states that he did see his PCP who did obtain cultures and placed him on oral antibiotic. He was then referred to the wound care center for further follow-up. He denies any further trauma to the site. States that the specific site is recurrent with breakdown of skin. Denies N/V/F/chills. No further complaints. 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 Venous stasis ulcer JOSHUA (obstructive sleep apnea) History of back problems Fatigue Weight loss Lab test positive for detection of COVID-19 virus (~04/2020) Left femoral shaft fracture Osteopenia 2012 femur fracture [facility] DVT (deep venous thrombosis) Restless leg syndrome Iron deficiency anemia GERD (gastroesophageal reflux disease) Celiac disease Asthma Home Medications ?Medication ?Instructions ?Recorded ?Last Taken ?Type pantoprazole 40 mg tablet,delayed 40 mg PO QHS gerd 07/15/17 History release tamsulosin 0.4 mg capsule 0.4 mg PO QHS Enlarged prost ate 07/12/17 01/06/24 History ergocalciferol (vitamin D2) 1,250 50,000 unit PO WE Unknown History mcg (50,000 unit) capsule benralizumab 30 mg/mL subcutaneous 30 mg subcut Q4W #1 mL 12/28/20 Unknown Rx syringe (Fasenra) levothyroxine 50 mcg tablet 100 mcg PO DAILY 03/21/22 01/06/24 History fluticasone propionate 50 2 spray NASAL BID PRN Conges tion 03/25/22 Unknown Rx mcg/actuation nasal #16 grams spray,suspension pramipexole 1.5 mg tablet 1.5 mg PO DAILY 11/25/23 Unk nown History finasteride 5 mg tablet 5 mg PO DAILY 01/05/24 Unkno wn History bimatoprost 0.03 % eye drops 1 drp ophthalmic (eye) QD AY 10/04/24 Unknown History denosumab 60 mg/mL subcutaneous 60 mg subcut [id number] 10/04/24 Unknown History syringe (Prolia) diclofenac potassium 50 mg tablet 50 mg PO TID PRN brynn n 10/04/24 Unknown History fluticasone 232 mcg-salmeterol 14 1 inh inhalation BID #1 ea 10/04/24 Unknown Rx mcg/actuation breath activated powdr ferrous gluconate 324 mg (37.5 mg 324 mg PO BID #60 ta bs 12/07/24 Unknown Rx iron) tablet Allergy/AdvReac Type Severity Reaction Status Date / Time gluten AdvReac Other Verified 03/01/25 09:40 Family History Father prostate cancer Surgical History History of colonoscopy (~09/24/20) History of hernia repair History of spinal surgery (~2016) History of repair of hip fracture History of cholecystectomy colonoscopy Social History Smoking Status: Former smoker alcohol intake: never substance use type: does not use Physical Exam Const alert, oriented x3 and no apparent distress General Appearance: cooperative, comfortable and well developed Orientation / Consciousness: awake, oriented to person, oriented to place and oriented to time Exam Limitations: no limitations HEENT normocephalic and head/scalp atraumatic Head and Scalp: normal to inspection, normocephalic and atraumatic Face and Sinus: normal facial exam Nose: external nose normal External Ear: external ears normal Eyes General Eye: normal appearance of both eyes Resp normal respiratory effort, normal air movement, no retractions and no use of accessory muscles Effort and Inspection: able to speak in complete sentences Skin General Skin Exam: venous stasis and dermatitis Wound Narrative: A venous stasis ulceration is noted near the patient's left medial malleolus. It is full-thickness in nature. There is a moderate amount of bioburden and nonviable tissue. Dimensions are documented elsewhere. There is no sign of infection or cellulitis. Hyperpigmentation, hemosiderin staining, and lipodermatosclerosis are noted in the left gaiter area. Ridley phlebectatica is noted on the left medial foot. Scattered varicosities are noted in the left lower extremity. Onychomycosis is noted involving the toenails of the left foot. Slight swelling is noted in the patient's left lower extremity. Neuro oriented x3, CN's II-XII intact bilaterally, moves all extremities and no focal motor deficits Sensorium / Orientation: awake, alert, oriented to person, oriented to place and oriented to time Debridement Note Debridement Note Wound debrided: Left medial ankle ulceration Laterality: Left Type of Debridement: Excisional debridement Anesthesia Used: 5% Lidocaine Gel Depth: Down to and including healthy tissue and in the subcutaneous layer Percentage of wound debrided: 100 Instrument Used: 3mm curette Tissue Removed: Devitalized tissue and bioburden Severity: Fat Layer Exposed Amount of bleeding with debridement: Mild Bleeding Controlled with: Compression and gauze Patient tolerated procedure: Patient tolerated procedure well Post-Debridement Measurements and Additional Note: Post-Debridement Measurements/Treatment - Nurse 1 - General Ulcer Assessment Start: 02/16/25 09:17 Freq: Status: Active Protocol: ANAYA Activity Type Activity Date Activity User E-sign Co-sign Detail Recorded Client Recorded Date Recorded By Document 02/16/25 09:21 KW [id number] 02/16/25 09:29 KW Document 02/20/25 08:53 KW [id number] 02/20/25 08:56 KW Document 02/23/25 09:23 KW [id number] 02/23/25 09:28 KW 02/16/25 02/20/25 02/23/25 09:21 08:53 09:23 - Today's Visit Information Type of service Initial Visit Follow-up Visit Follow-up Visit (Physician/INFORMATION TECHNOLOGY INTERN (Physician/INFORMATION TECHNOLOGY INTERN ) ) Arrival Mode Ambulatory Ambulatory Ambulatory Patient Identification Verified (Name & Yes Yes Yes ) Vital Signs Temperature (97.8 F-99.1 F) 96.9 F L 96.3 F L Temperature Source Temporal Temporal Pulse Rate (60-100) 67 67 60 Pulse Location Monitor Monitor Monitor Respiratory Rate (12-18) 18 18 18 Respiratory rate source Observation Observation Observation Oxygen Delivery Method Room Air Room Air Room Air Blood Pressure (90/60-120/80) 144/58 H 150/78 H 126/66 H Blood Pressure Mean (mm Hg) 86 102 86 Source Monitor Monitor Monitor Position Semi-Fowlers Semi-Fowlers Semi-Fowlers Blood Pressure Location Right Arm Right Forearm Left Arm History Since Last Visit- (Skip if this is Patient's initial visit) Have you changed medications since your No No last visit? Any new allergies or adverse reactions No No Had a fall/change in ADL's that may No No increase risk of falls Signs or symptoms of abuse and/or No No neglect since last visit Have you been in the hospital since your No No last visit? Has dressing in place as prescribed Yes Yes Has compression in place as prescribed Yes Yes Has offloadiing in place as prescribed N/A N/A Experienced any changes in pain level or No No management Left Footwear Regular Shoe Regular Shoe Regular Shoe Right Footwear Regular Shoe Regular Shoe Regular Shoe Pain Scale: 0-10 Numeric Is Patient Pain Free? Yes Yes Yes - Nurse 1 - General Ulcer Measurement Start: 02/16/25 09:17 Freq: Status: Active Protocol: Activity Type Activity Date Activity User E-sign Co-sign Detail Recorded Client Recorded Date Recorded By Document 02/16/25 09:21 KW [id number] 02/16/25 09:29 KW Document 02/23/25 09:23 KW [id number] 02/23/25 09:28 KW 02/16/25 02/23/25 09:21 09:23 Wound Center Nurse 1 #1 L Med Ankle -Current Size (cm) - Length 1 1 -Current Size (cm) - Width 0.5 0.7 -Current Size (cm) - Depth 0.2 0.1 -Total Square Cm 0.5 0.7 -Date of Last Picture (Recall this 02/16/25 field) -Exudate Amt Small -Exudate Type Serosanguineous Serosanguineous -Wound Margin Distinct, Distinct, Outline Outline Attached Attached -Granulation Amt Large (67-100%) Small (1-33%) -Granulation Quality [place] -Necrosis Amt Medium (34-66%) Large (67-100%) -Necrotic Tissue Type Adherent Slough Adherent Slough -Texture (Megan-wound Skin Appearance) Assessed Assessed -Moisture (Megan-wound Skin Appearance) Assessed Assessed -Color (Megan-wound Skin Appearance) Assessed Assessed, Erythema -Temperature (Megan-wound Skin No Abnormality No Abnormality Appearance) (Pt Warm) (Pt Warm) -Tenderness on Palpation (Megan-wound No No Skin Appearance) -Ulcer Cleansing Soap and Water Soap and Water -Foul Odor after Cleansing No No -Anesthetic Used 5% Lidocaine 5% Lidocaine Gel Gel Left Calf (cm) 38 35 Left Ankle (cm) 23 20.8 WC - Nurse 2 - General Ulcer CM Notes Start: 02/16/25 09:17 Freq: Status: Active Protocol: Activity Type Activity Date Activity User E-sign Co-sign Detail Recorded Client Recorded Date Recorded By Document 02/16/25 09:35 [facility] [id number] 02/16/25 09:42 [facility] Document 02/23/25 09:46 [facility] [id number] 02/23/25 09:48 [facility] 02/16/25 02/23/25 09:35 09:46 Wound Center Nurse 2 #1 L Med Ankle -Time 09:35 09:46 -Correct Patient Yes Yes -Correct Side, Site, Position Yes Yes -Correct Procedure Yes Yes -Procedure Performed Yes Yes -Type of Procedure Debridement Debridement -Clinical Debridement Subcutaneous Subcutaneous -Tissue Removed Subcutaneous Subcutaneous -Post Debridement (cm) - Length 0.9 1.1 -Post Debridement (cm) - Width 0.5 0.7 -Post Debridement (cm) - Depth 0.1 0.1 -Total Square (Post) (cm) 0.45 0.77 -Area of Debridement (cm) - Length 0.9 1.1 -Area of Debridement (cm) - Width 0.5 0.7 -Total Square (Area) (cm) 0.45 0.77 -Tunneling No No -Undermining/Tunneling No No -Circular Undermining No No -Wound/Ulcer Outcome Not Healed Not Healed -Ulcer Cleansing Rinsed/ Rinsed/ Irrigated with Irrigated with Saline Saline -Foul Odor after Cleansing No No -Bioengineered Tissue No No -Bleeding Controlled with Pressure Pressure -Treatment Response Procedure Procedure Tolerated Well Tolerated Well -Debridement - Subq, 1st 20sq cm Yes Yes Pain Scale: 0-10 Numeric Is Patient Pain Free? Yes Yes - Nurse 3 - General Ulcer D/C NN Start: 02/16/25 09:17 Freq: Status: Active Protocol: Activity Type Activity Date Activity User E-sign Co-sign Detail Recorded Client Recorded Date Recorded By Document 02/16/25 11:47 RB [id number] 02/16/25 11:48 RB Document 02/20/25 08:53 KW [id number] 02/20/25 08:56 KW Document 02/23/25 09:57 DL [id number] 02/23/25 09:58 DL 02/16/25 02/20/25 02/23/25 11:47 08:53 09:57 Wound Care Center Nurse 3 #1 L Med Ankle -Ulcer Cleansing Rinsed/ Soap and Water Rinsed/ Irrigated with Irrigated with Saline Saline -Foul Odor after Cleansing No -Primary Dressing Applied Promogran Promogran Promogran Liliana Matter Liliana Matter Liliana Matter -Primary Dressing Covered/Secured with Dry Gauze & Dry Gauze Dry Gauze Roll Gauze, Secured with Tape -Promogran Liliana Matter 1 1 1 LLE -Lotion applied to leg before Yes compression wrap -Multi-Layered Wrap Application Multi-Layer Multi-Layer Multi-Layer Comp - Left ($) Comp - Left ($) Comp - Left ($) -Multi-Layer Compression Left (Qty 1 1 1 applied) Treatment Response Procedure Tolerated Well Pain Scale: 0-10 Numeric Is Patient Pain Free? 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: CODE(S): L97.302 - Non-pressure chronic ulcer of unspecified ankle with fat layer exposed QUALIFIERS: Laterality: left Qualified Code(s): L97.322 - Non- pressure chronic ulcer of left ankle with fat layer exposed (2) 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: CODE(S): I83.003 - Varicose veins of unspecified lower extremity with ulcer of ankle; L97.302 - Non-pressure chronic ulcer of unspecified ankle with fat layer exposed QUALIFIERS: Varicose vein presence: with varicose veins Laterality: left Qualified Code(s): I83.023 - Varicose veins of left lower extremity with ulcer of ankle; L97.322 - Non-pressure chronic ulcer of left ankle with fat layer exposed (3) Ulcer of extremity due to chronic venous insufficiency: CODE(S): L98.499 - Non-pressure chronic ulcer of skin of other sites with unspecified severity; I87.2 - Venous insufficiency (chronic) (peripheral) (4) Bilateral lower extremity edema: CODE(S): R60.0 - Localized edema (5) Asthma: CODE(S): J45.909 - Unspecified asthma, uncomplicated QUALIFIERS: Asthma severity: severe Asthma persistence: persistent Asthma complication type: with acute exacerbation Qualified Code(s): J45.51 - Severe persistent asthma with (acute) exacerbation (6) GERD (gastroesophageal reflux disease): CODE(S): K21.9 - Gastro-esophageal reflux disease without esophagitis QUALIFIERS: Esophagitis presence: esophagitis presence not specified Qualified Code(s): K21.9 - Gastro-esophageal reflux disease without esophagitis (7) JOSHUA (obstructive sleep apnea): CODE(S): G47.33 - Obstructive sleep apnea (adult) (pediatric) (8) History of hernia repair: CODE(S): Z98.890 - Other specified postprocedural states; Z87.19 - Personal history of other diseases of the digestive system (9) History of spinal surgery: CODE(S): Z98.890 - Other specified postprocedural states (10) History of repair of hip fracture: CODE(S): Z98.890 - Other specified postprocedural states (11) History of cholecystectomy: CODE(S): Z90.49 - Acquired absence of other specified parts of digestive tract PLAN: Plan This is a 80-year-old male with a history of chronic venous insufficiency and associated manifestations. He is currently being treated for a venous stasis ulceration at the site of the left medial ankle. He has a history of severe deep vein thrombosis in the left lower extremity approximately 20 years ago. 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 A lengthy discussion has been undertaken with the patient as to the appropriate means of long-term care. He has been encouraged to continue sleeping on a flat mattress at night. He has been advised to elevate his lower extremities during daytime hours as well, as much as possible elevation is to be to heart level, or higher. Ambulation has been encouraged. Prolonged idle sitting has been discouraged. A venous duplex examination approximately 1 year ago revealed incompetence of the left great saphenous vein below the knee, incompetence of the left small saphenous vein, and incompetence of the accessory saphenous vein in the left mid calf. The patient has recently been evaluated by the Vascular Surgery service, and consideration is being given to a venous ablation procedure in the future. A repeat of his venous duplex examination is scheduled for the near future. At this time, we are to continue the use of Liliana applied topically to the venous stasis ulceration near the left medial ankle. Compression is to be applied by means of a 3M multilayer compression wrap. The compression and Liliana are to be changed twice weekly. Patient is to return in 1 week for reevaluation by his regular Wound Center provider, Dr. Merrill Burns. Total time: 45 minutes
--- NOTE | 2025-03-14 09:53 | VDLE_ITS ---
Reason For Study Reason For Study: Bilateral leg swelling RIGHT LEFT CFV is compressible, spontaneous, phasic, competent CFV is compressible, spontaneous, phasic, competent, and demonstrates normal augmentation. and demonstrates normal augmentation. FV is compressible, spontaneous, phasic, competent Lt FV is partially compressible with bright and demonstrates normal augmentation. intraluminal echoes consistent with chronic DVT and POP V is compressible, spontaneous, phasic, competent INCOMPETENT for greater than 1.0 second and demonstrates normal augmentation. Lt PopV is partially compressible with bright T/P Trunk is compressible. intraluminal echoes consistent with chronic DVT and PTV is compressible. INCOMPETENT for greater than 1.0 second RT PerV is compressible. Lt T/P Trunk and Lt GastrocV are partially SFJ is INCOMPETENT and measures 0.83 cm. compressible with bright intraluminal echoes GSV proximal thigh measures 0.40 x 0.43 cm. consistent with chronic DVT. GSV at knee measures 0.34 x 0.32 cm. PTV is compressible. GSV INCOMPETENT throughout for greater than 0.5 LT PerV is compressible. seconds. SFJ is INCOMPETENT and measures 0.73 cm. ASV from junction is INCOMPETENT for greater than 0.5 GSV proximal thigh measures 0.44 x 0.41 cm. seconds and measures 0.31 x 0.28 cm GSV at knee measures 0.47 x 0.47 cm. ASV proximal calf is INCOMPETENT for greater than 0.5 GSV INCOMPETENT throughout for greater than 0.5 seconds and measures 0.34 x 0.33 cm. seconds. ASV 2 proximal calf is INCOMPETENT for greater than ASV mid calf is INCOMPETENT for greater than 0.5 0.5 seconds and measures 0.37 x 0.40 cm. seconds and measures 0.37 x 0.43 cm. SSV mid calf is INCOMPETENT for greater than 0.5 ASV distal calf is INCOMPETENT for greater than 0.5 seconds and measures 0.41 x 0.44 cm. seconds and measures 0.19 x 0.21 cm. Procedure SSV mid calf is competent and measures 0.28 x 0.30 This is a venous duplex using B-mode, color flow and cm. spectral Doppler. Exam performed in department. Patient was scanned in reverse Trendelenburg position during reflux assessment. VL/Venous Duplex US - Jose Daniel Extrem Interpretation Summary Chronic deep vein thrombosis noted in the left femoral vein, popliteal vein, ti bioperoneal trunk vein, gastrocnemius vein. The bilateral great saphenous veins appear patent and compressible segmentally. Positive for reflux in the right saphenofemoral junction, great saphenous vein throughout, accessory saphenous vein from junction, accessory saphenous veins in calf. Positive for reflux on the left femoral vein, popliteal vein, saphenofemoral ju nction, great saphenous vein throughout, accessory saphenous veins in calf. Ordering Physician: Salima Morin Referring Physician: Keven Joseph Performed By: Delisa Pak RVT
== END | disposition home or self-care (01) ==
LOC: CVS 09:51
PROVIDERS: PCP Family Medicine; Referring Provider Physician Assistant; Visit Provider Physician Assistant
DX: R60.0 Localized edema (principal); L97.222 Non-pressure chronic ulcer of left calf with fat layer exposed; L98.499 Non-pressure chronic ulcer of skin of other sites with unspecified severity; I87.2 Venous insufficiency (chronic) (peripheral); M79.89 Other specified soft tissue disorders
CPT/HCPCS: 93970

== ENCOUNTER 2025-03-16 09:00 | Outpatient (RCR) | payer MEDICARE, OTHER, SELFPAY ==
[2025-02-16 09:21] VITALS: BP 144/58; PULSE 67; RESP 18
--- NOTE | 2025-02-16 10:12 | VDLE_ITS ---
Reason For Study Reason For Study: Wound, R/O DVT RIGHT LEFT CFV is compressible, spontaneous, phasic, competent GSV is normal. and demonstrates normal augmentation. CFV is compressible, spontaneous, phasic, competent, Procedure and demonstrates normal augmentation. This is a venous duplex using B-mode, color flow and FV is compressible, spontaneous, phasic, competent spectral Doppler. and demonstrates normal augmentation. Exam performed in department. POP V is compressible, spontaneous, phasic, competent A preliminary report was called and/or faxed to and demonstrates normal augmentation. Keyla Burns DPM. T/P Trunk is compressible. PTV is compressible. LT PerV is compressible. VL/Venous Duplex US, Unilateral Interpretation Summary Deep veins of the left lower extremity are patent and compressible segmentally. There is no evidence of left lower extremity deep vein thrombosis. Valvular competence appears intact within the p roximal deep venous system on the left . The left great saphenous vein appears patent and compressible segmentally. The right common femoral vein is patent and compressible . Ordering Physician: Merrill Burns Referring Physician: Keven Joseph Performed By: Ryanne Rivera RVT
--- NOTE | 2025-02-16 10:59 | WC ---
PHOTO 02/16/25 LEFT [facility]
--- NOTE | 2025-02-16 13:39 | PCM.WC.HP ---
History of Present Illness Date of Service: 02/16/25 Chief Complaint: Left medial ankle wound History of Wound: Patient is a 79-year-old male who presents to the wound care center with recurring left lower extremity medial ankle wound. He has PMHx of recurring left lower extremity ulceration secondary to chronic venous insufficiency, history of DVT, obesity, JOSHUA, iron deficient anemia, delayed wound healing, and asthma. He states that he does have compression stockings and continues to wear them. He had been following in the wound care center for a deep ulceration to the medial aspect of the left lower extremity overlying the neurovascular bundle. He did go on to heal this ulceration as of 12/31/[address] Mckee for venogram. He has continued wearing compression stockings however states that while in the shower he did notice a scab of the left medial ankle and after showering applied antibiotic ointment and Band-Aid which later then the scab became soft and opened a small wound. He states that he did see his PCP who did obtain cultures and placed him on oral antibiotic. He was then referred to the wound care center for further follow-up. He denies any further trauma to the site. States that the specific site is recurrent with breakdown of skin. Denies N/V/F/chills. No further complaints. [facility] Medical History JOSHUA (obstructive sleep apnea) History of back problems Fatigue Weight loss Lab test positive for detection of COVID-19 virus (~04/2020) Left femoral shaft fracture Osteopenia 2012 femur fracture [facility] DVT (deep venous thrombosis) Restless leg syndrome Iron deficiency anemia GERD (gastroesophageal reflux disease) Celiac disease Asthma Home Medications ?Medication ?Instructions ?Recorded ?Last Taken ?Type pantoprazole 40 mg tablet,delayed 40 mg PO QHS gerd 04/03/14 07/15/17 History release tamsulosin 0.4 mg capsule 0.4 mg PO QHS Enlarged prostate 07/12/17 01/06/24 History ibuprofen 200 mg capsule 200 mg PO BID PRN Pain 09/10/18 Unknown History ergocalciferol (vitamin D2) 1,250 50,000 unit PO WE 10/21/19 Unknown History mcg (50,000 unit) capsule benralizumab 30 mg/mL subcutaneous 30 mg subcut Q4W #1 mL 12/28/20 Unknown Rx syringe (Fasenra) levothyroxine 50 mcg tablet 100 mcg PO DAILY 03/21/22 01/06/24 History fluticasone propionate 50 2 spray NASAL BID PRN Congestion 03/25/22 Unknown Rx mcg/actuation nasal #16 grams spray,suspension albuterol sulfate 90 mcg/actuation 1 - 2 puff inhalation Q4H PRN PRN 09/22/23 Unknown Rx aerosol inhaler Sob &/Or Wheezing #8.5 grams pramipexole 1.5 mg tablet 1.5 mg PO DAILY 11/25/23 Unknown History finasteride 5 mg tablet 5 mg PO DAILY 01/05/24 Unknown History bimatoprost 0.03 % eye drops 1 drp ophthalmic (eye) QDAY 10/04/24 Unknown History denosumab 60 mg/mL subcutaneous 60 mg subcut [id number] 10/04/24 Unknown History syringe (Prolia) diclofenac potassium 50 mg tablet 50 mg PO TID PRN pain 10/04/24 Unknown History fluticasone 232 mcg-salmeterol 14 1 inh inhalation BID #1 ea 10/04/24 Unknown Rx mcg/actuation breath activated powdr ferrous gluconate 324 mg (37.5 mg 324 mg PO BID #60 tabs 12/07/24 Unknown Rx iron) tablet Allergy/AdvReac Type Severity Reaction Status Date / Time gluten AdvReac Other Verified 02/16/25 09:21 Family History Father prostate cancer Surgical History History of colonoscopy (~09/24/20) History of esophagogastroduodenoscopy (EGD) (~09/24/20) History of hernia repair History of spinal surgery (~2017) History of repair of hip fracture History of cholecystectomy colonoscopy Social History Smoking Status: Former smoker alcohol intake: never substance use type: does not use ROS Constitutional Constitutional: Denies chills, fatigue or fever(s) Eyes Eyes: Denies blurry vision, change in vision or double vision ENT HEENT: Denies dysphagia, nasal congestion or nasal discharge Cardiovascular Cardiovascular: Denies chest pain, claudication or palpitations Respiratory/Chest Respiratory/Chest: Denies cough, shortness of breath at rest or wheezing Gastrointestinal Gastrointestinal: Denies abdominal pain, constipation, diarrhea, nausea or vomiting Genitourinary Genitourinary: Denies dysuria, hematuria or urinary urgency Musculoskeletal Musculoskeletal: Denies joint pain, joint stiffness or joint swelling Integumentary Integumentary: Denies jaundice, lesions, pruritus or rash Neurologic Neurologic: Denies dizziness, numbness or seizures Psychiatric Psychiatric: Denies anxiety or depression Endocrine Endocrinology: Denies cold intolerance or heat intolerance Hematologic/Lymphatic Hematologic/Lymphatic: Denies easy bleeding or easy bruising Vital Signs Vital Signs Vital Signs: 02/16/25 09:21 Pulse Rate 67 Respiratory Rate 18 Blood Pressure 144/58 H Blood Pressure Mean 86 Blood Pressure Source Monitor Blood Pressure Position Semi-Fowlers Blood Pressure Location Right Arm Oxygen Delivery Method Room Air Physical Exam Const alert, oriented x3 and no apparent distress General Appearance: cooperative HEENT normocephalic Eyes General Eye: normal appearance of both eyes Neck General: normal visual inspection Lymph Lymphatic: no lymphadenopathy noted and no lymphedema noted Resp normal respiratory effort Cardio regular rate and regular rhythm Extremity Extremity Narrative: Left lower extremity: Vascular: DP and PT pulses weakly palpable. Capillary fill time to digits is 5 seconds. Normal temperature gradient. There is absent hair growth to digits noted. Dermatological: There is a full-thickness ulceration noted to the medial aspect of the lower extremity/ankle with mixed fibrogranular layer. Negative Stemmer sign left foot. There is evidence of stasis dermatitis with hyperpigmentation/hemosiderin deposition/staining of skin left lower extremity. There are varicosities noted of the lower extremity with mild lower extremity edema. There is no erythema or rubor of the left lower extremity. Musculoskeletal: Muscle strength 5 of 5 age-appropriate. There is decreased range of motion of the ankle joint dorsiflexion with knee extended without pain or crepitus. Decreased range of motion of the STJ, MTJ, and first MTPJ without pain or crepitus. There is pain to palpation of the left calf today with positive Gómez sign and Homans' sign. Skin no rashes or lesions noted General Skin Exam: venous stasis and dermatitis Neuro moves all extremities Debridement Note Debridement Note Wound debrided: Left medial lower extremity Laterality: Left Wound Grade/Stage: Cisneros stage I Type of Debridement: Excisional debridement Anesthesia Used: 5% Lidocaine Gel Depth: Down to and including healthy tissue and in the subcutaneous layer Percentage of wound debrided: 100 Instrument Used: 3mm curette Tissue Removed: Fibrous, devitalized subcutaneous, biofilm, slough Severity: Fat Layer Exposed Amount of bleeding with debridement: Mild Bleeding Controlled with: Compression and gauze Patient tolerated procedure: Patient tolerated procedure well Post-Debridement Measurements and Additional Note: Post-Debridement Measurements/Treatment LA NENA - Nurse 1 - General Ulcer Assessment Start: 02/16/25 09:17 Freq: Status: Active Protocol: ANAYA Activity Type Activity Date Activity User E-sign Co-sign Detail Recorded Client Recorded Date Recorded By Document 02/16/25 09:21 DARLIN [id number] 02/16/25 09:29 02/16/25 09:21 WC - Today's Visit Information Type of service Initial Visit Arrival Mode Ambulatory Patient Identification Verified (Name & Yes ) Vital Signs Pulse Rate (60-100) 67 Pulse Location Monitor Respiratory Rate (12-18) 18 Respiratory rate source Observation Oxygen Delivery Method Room Air Blood Pressure (90/60-120/80) 144/58 H Blood Pressure Mean 86 Source Monitor Position Semi-Fowlers Blood Pressure Location Right Arm History Since Last Visit- (Skip if this is Patient's initial visit) Left Footwear Regular Shoe Right Footwear Regular Shoe Pain Scale: 0-10 Numeric Is Patient Pain Free? Yes LA NENA Tubbs Nurse 1 - General Ulcer Measurement Start: 02/16/25 09:17 Freq: Status: Active Protocol: Activity Type Activity Date Activity User E-sign Co-sign Detail Recorded Client Recorded Date Recorded By Document 02/16/25 09:21 DARLIN [id number] 02/16/25 09:29 02/16/25 09:21 Wound Center Nurse 1 #1 L Med Ankle -Current Size (cm) - Length 1 -Current Size (cm) - Width 0.5 -Current Size (cm) - Depth 0.2 -Total Square Cm 0.5 -Date of Last Picture (Recall this 02/16/25 field) -Exudate Amt Small -Exudate Type Serosanguineous -Wound Margin Distinct, Outline Attached -Granulation Amt Large (67-100%) -Granulation Quality [place] -Necrosis Amt Medium (34-66%) -Necrotic Tissue Type Adherent Slough -Texture (Megan-wound Skin Appearance) Assessed -Moisture (Megan-wound Skin Appearance) Assessed -Color (Megan-wound Skin Appearance) Assessed -Temperature (Megan-wound Skin No Abnormality Appearance) (Pt Warm) -Tenderness on Palpation (Megan-wound No Skin Appearance) -Ulcer Cleansing Soap and Water -Foul Odor after Cleansing No -Anesthetic Used 5% Lidocaine Gel Left Calf (cm) 38 Left Ankle (cm) 23 WC - Nurse 2 - General Ulcer CM Notes Start: 02/16/25 09:17 Freq: Status: Active Protocol: Activity Type Activity Date Activity User E-sign Co-sign Detail Recorded Client Recorded Date Recorded By Document 02/16/25 09:35 [facility] [id number] 02/16/25 09:42 [facility] 02/16/25 09:35 Wound Center Nurse 2 #1 L Med Ankle -Time 09:35 -Correct Patient Yes -Correct Side, Site, Position Yes -Correct Procedure Yes -Procedure Performed Yes -Type of Procedure Debridement -Clinical Debridement Subcutaneous -Tissue Removed Subcutaneous -Post Debridement (cm) - Length 0.9 -Post Debridement (cm) - Width 0.5 -Post Debridement (cm) - Depth 0.1 -Total Square (Post) (cm) 0.45 -Area of Debridement (cm) - Length 0.9 -Area of Debridement (cm) - Width 0.5 -Total Square (Area) (cm) 0.45 -Tunneling No -Undermining/Tunneling No -Circular Undermining No -Wound/Ulcer Outcome Not Healed -Ulcer Cleansing Rinsed/ Irrigated with Saline -Foul Odor after Cleansing No -Bioengineered Tissue No -Bleeding Controlled with Pressure -Treatment Response Procedure Tolerated Well -Debridement - Subq, 1st 20sq cm Yes Pain Scale: 0-10 Numeric Is Patient Pain Free? Yes - Nurse 3 - General Ulcer D/C NN Start: 02/16/25 09:17 Freq: Status: Active Protocol: Activity Type Activity Date Activity User E-sign Co-sign Detail Recorded Client Recorded Date Recorded By Document 02/16/25 11:47 RB [id number] 02/16/25 11:48 RB 02/16/25 11:47 Wound Care Center Nurse 3 #1 L Med Ankle -Ulcer Cleansing Rinsed/ Irrigated with Saline -Primary Dressing Applied Promogran Liliana Matter -Primary Dressing Covered/Secured with Dry Gauze & Roll Gauze, Secured with Tape -Promogran Liliana Matter 1 LLE -Multi-Layered Wrap Application Multi-Layer Comp - Left ($) -Multi-Layer Compression Left (Qty 1 applied) Pain Scale: 0-10 Numeric Is Patient Pain Free? Yes WC - Visit Discharge Discharge Condition Stable Ambulatory Status Ambulatory Transportation Private Auto Medication Reconcilliation completed & No provided to patient/care provider Clinical Summary of Care Provided Yes Assessment/Plan Assessment/Plan (1) Non-pressure chronic ulcer of left calf with fat layer exposed: CODE(S): L97.222 - Non-pressure chronic ulcer of left calf with fat layer exposed (2) Ulcer of extremity due to chronic venous insufficiency: CODE(S): L98.499 - Non-pressure chronic ulcer of skin of other sites with unspecified severity; I87.2 - Venous insufficiency (chronic) (peripheral) (3) Bilateral lower extremity edema: CODE(S): R60.0 - Localized edema PLAN: Plan Patient seen and evaluated Predebridement measurement 0.8 cm x 0.4 cm x 0.1 cm Ulceration site underwent debridement as noted in the clinical panel above. Postdebridement measurement 0.9 cm x 0.5 cm x 0.1 cm. Liliana was applied to the wound bed. Due to positive calf pain he was referred for stat venous Doppler to evaluate for potential DVT. He did return to wound care center for nurse visit and stated he was negative however official reading has not been interpreted yet. Due to negative test result patient underwent compression wrap via 3M compression and was instructed to keep the dressings clean, dry, and intact. He was again instructed on continued elevation of the lower extremities to aid in edema control. Following healing of ulcerative site he will return to compression stockings however this time we will increase from 20 to 30 mmHg to 30 to 40 mmHg versus application of juxta lite compression. Juxta lite compression wrap was applied for today. Discussed follow-up with Dr. Mckee for potential procedure to aid in his venous insufficiency. Discussed continued diet to aid in healing with adequate protein intake. Discussed signs and symptoms of infection. Discussed if he notices any increasing redness around the ulcerative site that is moved up the leg, purulent drainage from the ulcerative site, increasing foul odor from the ulcerative site, or if he develops fever greater than 101 degree accompanied by nausea, vomiting, chills of these are signs of a progressing infection and he should report to the ED for IV antibiotics and further evaluation. He is understanding of this today. The following work up and care recommendations were made: Dressing: Liliana to ulcerative bed with 3M compression wrap to the left lower extremity. Will continue compression stocking to right lower extremity Wash: Do not get wet. Use cast bag when showering to maintain compliance. Tissue growth optimization: Liliana Offload: 3M compression wrap Vascular: Does have history of positive venous insufficiency/reflux. Will seek vascular assistance for potential procedure. Edema: 3M compression wrap and elevation of the lower extremities Infection: No signs of infection Pain: May take [id number] Tylenol Extra Strength for discomfort Host factors: Chronic venous insufficiency, chronic lower extremity edema, prolonged standing/activity, advanced age complicate healing. I answered all the patient's questions. To return to the wound healing center in 1 week or call sooner if the patient has any questions or concerns.
[2025-02-20 08:53] VITALS: BP 150/78; PULSE 67; RESP 18; TEMP 36.1
[2025-02-23 09:23] VITALS: BP 126/66; PULSE 60; RESP 18; TEMP 35.7
--- NOTE | 2025-02-23 11:18 | PCM.WC.PN ---
History of Present Illness Date of Service: 02/23/25 Chief Complaint: Left medial ankle wound History of Wound: Patient is a 79-year-old male who presents to the wound care center with recurring left lower extremity medial ankle wound. He has PMHx of recurring left lower extremity ulceration secondary to chronic venous insufficiency, history of DVT, obesity, JOSHUA, iron deficient anemia, delayed wound healing, and asthma. He states that he does have compression stockings and continues to wear them. He had been following in the wound care center for a deep ulceration to the medial aspect of the left lower extremity overlying the neurovascular bundle. He did go on to heal this ulceration as of 12/31/[address] Mckee for venogram. He has continued wearing compression stockings however states that while in the shower he did notice a scab of the left medial ankle and after showering applied antibiotic ointment and Band-Aid which later then the scab became soft and opened a small wound. He states that he did see his PCP who did obtain cultures and placed him on oral antibiotic. He was then referred to the wound care center for further follow-up. He denies any further trauma to the site. States that the specific site is recurrent with breakdown of skin. Denies N/V/F/chills. No further complaints. Subjective Subjective This is a 80-year-old male who returns to the wound care center for continued follow-up of a chronic venous stasis/insufficiency ulceration at the medial aspect of the left lower extremity. He reports keeping dressing clean, dry, and intact with his 3M compression wrap to the left lower extremity. He did return for dressing change as nurse visit this past Thursday. States that he did believe the wound measured bigger today but his swelling appears to be well-controlled. He denies constitutional symptoms. Denies further complaints. Objective Data Objective Data Vital Signs: Vital Signs Temp Pulse Resp BP O2 Del Method 96.3 F L 60 18 126/66 H Room Air 02/23/25 09:23 02/23/25 09:23 02/23/25 09:23 02/23/25 09:23 02/23/25 09:23 Oxygen Delivery Method Room Air Physical Exam Const alert, oriented x3 and no apparent distress General Appearance: cooperative HEENT normocephalic Eyes General Eye: normal appearance of both eyes Neck General: normal visual inspection Lymph Lymphatic: no lymphadenopathy noted and no lymphedema noted Resp normal respiratory effort Cardio regular rate and regular rhythm Extremity Extremity Narrative: Left lower extremity: Vascular: DP and PT pulses weakly palpable. Capillary fill time to digits is 5 seconds. Normal temperature gradient. There is absent hair growth to digits noted. Dermatological: There is a full-thickness ulceration noted to the medial aspect of the lower extremity/ankle with mixed fibrogranular layer. Negative Stemmer sign left foot. There is evidence of stasis dermatitis with hyperpigmentation/hemosiderin deposition/staining of skin left lower extremity. There are varicosities noted of the lower extremity with mild lower extremity edema. There is no erythema or rubor of the left lower extremity. Musculoskeletal: Muscle strength 5 of 5 age-appropriate. There is decreased range of motion of the ankle joint dorsiflexion with knee extended without pain or crepitus. Decreased range of motion of the STJ, MTJ, and first MTPJ without pain or crepitus. There is pain to palpation of the left calf today with positive Gómez sign and Homans' sign. Skin no rashes or lesions noted General Skin Exam: venous stasis and dermatitis Neuro moves all extremities Debridement Note Debridement Note Wound debrided: Left lower extremity Laterality: Left Wound Grade/Stage: Cisneros stage I Type of Debridement: Excisional debridement Anesthesia Used: 5% Lidocaine Gel Depth: Down to and including healthy tissue and in the subcutaneous layer Percentage of wound debrided: 100 Instrument Used: 3mm curette Tissue Removed: Fibrous, devitalized subcutaneous, biofilm, slough Severity: Fat Layer Exposed Amount of bleeding with debridement: Mild Bleeding Controlled with: Compression and gauze Patient tolerated procedure: Patient tolerated procedure well Post-Debridement Measurements and Additional Note: Post-Debridement Measurements/Treatment - Nurse 1 - General Ulcer Assessment Start: 02/16/25 09:17 Freq: Status: Active Protocol: ANAYA Activity Type Activity Date Activity User E-sign Co-sign Detail Recorded Client Recorded Date Recorded By Document 02/16/25 09:21 KW [id number] 02/16/25 09:29 KW Document 02/20/25 08:53 KW [id number] 02/20/25 08:56 KW Document 02/23/25 09:23 KW [id number] 02/23/25 09:28 KW 02/16/25 02/20/25 02/23/25 09:21 08:53 09:23 - Today's Visit Information Type of service Initial Visit Follow-up Visit Follow-up Visit (Physician/DAMPER MAKER (Physician/DAMPER MAKER ) ) Arrival Mode Ambulatory Ambulatory Ambulatory Patient Identification Verified (Name & Yes Yes Yes ) Vital Signs Temperature (97.8 F-99.1 F) 96.9 F L 96.3 F L Temperature Source Temporal Temporal Pulse Rate (60-100) 67 67 60 Pulse Location Monitor Monitor Monitor Respiratory Rate (12-18) 18 18 18 Respiratory rate source Observation Observation Observation Oxygen Delivery Method Room Air Room Air Room Air Blood Pressure (90/60-120/80) 144/58 H 150/78 H 126/66 H Blood Pressure Mean (mm Hg) 86 102 86 Source Monitor Monitor Monitor Position Semi-Fowlers Semi-Fowlers Semi-Fowlers Blood Pressure Location Right Arm Right Forearm Left Arm History Since Last Visit- (Skip if this is Patient's initial visit) Have you changed medications since your No No last visit? Any new allergies or adverse reactions No No Had a fall/change in ADL's that may No No increase risk of falls Signs or symptoms of abuse and/or No No neglect since last visit Have you been in the hospital since your No No last visit? Has dressing in place as prescribed Yes Yes Has compression in place as prescribed Yes Yes Has offloadiing in place as prescribed N/A N/A Experienced any changes in pain level or No No management Left Footwear Regular Shoe Regular Shoe Regular Shoe Right Footwear Regular Shoe Regular Shoe Regular Shoe Pain Scale: 0-10 Numeric Is Patient Pain Free? Yes Yes Yes - Nurse 1 - General Ulcer Measurement Start: 02/16/25 09:17 Freq: Status: Active Protocol: Activity Type Activity Date Activity User E-sign Co-sign Detail Recorded Client Recorded Date Recorded By Document 02/16/25 09:21 KW [id number] 02/16/25 09:29 KW Document 02/23/25 09:23 KW [id number] 02/23/25 09:28 KW 02/16/25 02/23/25 09:21 09:23 Wound Center Nurse 1 #1 L Med Ankle -Current Size (cm) - Length 1 1 -Current Size (cm) - Width 0.5 0.7 -Current Size (cm) - Depth 0.2 0.1 -Total Square Cm 0.5 0.7 -Date of Last Picture (Recall this 02/16/25 field) -Exudate Amt Small -Exudate Type Serosanguineous Serosanguineous -Wound Margin Distinct, Distinct, Outline Outline Attached Attached -Granulation Amt Large (67-100%) Small (1-33%) -Granulation Quality [place] -Necrosis Amt Medium (34-66%) Large (67-100%) -Necrotic Tissue Type Adherent Slough Adherent Slough -Texture (Megan-wound Skin Appearance) Assessed Assessed -Moisture (Megan-wound Skin Appearance) Assessed Assessed -Color (Megan-wound Skin Appearance) Assessed Assessed, Erythema -Temperature (Megan-wound Skin No Abnormality No Abnormality Appearance) (Pt Warm) (Pt Warm) -Tenderness on Palpation (Megan-wound No No Skin Appearance) -Ulcer Cleansing Soap and Water Soap and Water -Foul Odor after Cleansing No No -Anesthetic Used 5% Lidocaine 5% Lidocaine Gel Gel Left Calf (cm) 38 35 Left Ankle (cm) 23 20.8 WC - Nurse 2 - General Ulcer CM Notes Start: 02/16/25 09:17 Freq: Status: Active Protocol: Activity Type Activity Date Activity User E-sign Co-sign Detail Recorded Client Recorded Date Recorded By Document 02/16/25 09:35 [facility] [id number] 02/16/25 09:42 [facility] Document 02/23/25 09:46 [facility] [id number] 02/23/25 09:48 [facility] 02/16/25 02/23/25 09:35 09:46 Wound Center Nurse 2 #1 L Med Ankle -Time 09:35 09:46 -Correct Patient Yes Yes -Correct Side, Site, Position Yes Yes -Correct Procedure Yes Yes -Procedure Performed Yes Yes -Type of Procedure Debridement Debridement -Clinical Debridement Subcutaneous Subcutaneous -Tissue Removed Subcutaneous Subcutaneous -Post Debridement (cm) - Length 0.9 1.1 -Post Debridement (cm) - Width 0.5 0.7 -Post Debridement (cm) - Depth 0.1 0.1 -Total Square (Post) (cm) 0.45 0.77 -Area of Debridement (cm) - Length 0.9 1.1 -Area of Debridement (cm) - Width 0.5 0.7 -Total Square (Area) (cm) 0.45 0.77 -Tunneling No No -Undermining/Tunneling No No -Circular Undermining No No -Wound/Ulcer Outcome Not Healed Not Healed -Ulcer Cleansing Rinsed/ Rinsed/ Irrigated with Irrigated with Saline Saline -Foul Odor after Cleansing No No -Bioengineered Tissue No No -Bleeding Controlled with Pressure Pressure -Treatment Response Procedure Procedure Tolerated Well Tolerated Well -Debridement - Subq, 1st 20sq cm Yes Yes Pain Scale: 0-10 Numeric Is Patient Pain Free? Yes Yes - Nurse 3 - General Ulcer D/C NN Start: 02/16/25 09:17 Freq: Status: Active Protocol: Activity Type Activity Date Activity User E-sign Co-sign Detail Recorded Client Recorded Date Recorded By Document 02/16/25 11:47 RB [id number] 02/16/25 11:48 RB Document 02/20/25 08:53 KW [id number] 02/20/25 08:56 KW Document 02/23/25 09:57 DL [id number] 02/23/25 09:58 DL 02/16/25 02/20/25 02/23/25 11:47 08:53 09:57 Wound Care Center Nurse 3 #1 L Med Ankle -Ulcer Cleansing Rinsed/ Soap and Water Rinsed/ Irrigated with Irrigated with Saline Saline -Foul Odor after Cleansing No -Primary Dressing Applied Promogran Promogran Promogran Liliana Matter Liliana Matter Liliana Matter -Primary Dressing Covered/Secured with Dry Gauze & Dry Gauze Dry Gauze Roll Gauze, Secured with Tape -Promogran Liliana Matter 1 1 1 LLE -Lotion applied to leg before Yes compression wrap -Multi-Layered Wrap Application Multi-Layer Multi-Layer Multi-Layer Comp - Left ($) Comp - Left ($) Comp - Left ($) -Multi-Layer Compression Left (Qty 1 1 1 applied) Treatment Response Procedure Tolerated Well Pain Scale: 0-10 Numeric Is Patient Pain Free? Yes Yes Yes WC - Visit Discharge Discharge Condition Stable Stable Stable Ambulatory Status Ambulatory Ambulatory Ambulatory Transportation Private Auto Private Auto Private Auto Medication Reconcilliation completed & No No provided to patient/care provider Clinical Summary of Care Provided Yes Yes Assessment/Plan Assessment/Plan (1) Non-pressure chronic ulcer of left calf with fat layer exposed: CODE(S): L97.222 - Non-pressure chronic ulcer of left calf with fat layer exposed (2) Ulcer of extremity due to chronic venous insufficiency: CODE(S): L98.499 - Non-pressure chronic ulcer of skin of other sites with unspecified severity; I87.2 - Venous insufficiency (chronic) (peripheral) (3) Bilateral lower extremity edema: CODE(S): R60.0 - Localized edema PLAN: Plan Patient seen and evaluated Predebridement measurement 0.9 cm x 0.6 cm x 0.1 cm Ulceration site underwent debridement as noted in the clinical panel above. Postdebridement measurement 1.1 cm x 0.7 cm x 0.1 cm. Liliana was applied to the wound bed and 3M compression wrap to left lower extremity. He was instructed to keep dressings clean, dry, and intact to the left lower extremity. There is slight increase in size of ulceration versus previous visit. However, edema remains well-controlled. Stat Doppler for 02/16/2025 was negative for DVT He was again instructed on continued elevation of the lower extremities to aid in edema control. Following healing of ulcerative site he will return to compression stockings however this time we will increase from 20 to 30 mmHg to 30 to 40 mmHg versus application of juxta lite compression. Juxta lite compression wrap was applied for 02/16/2025, awaiting approval. Discussed follow-up with Dr. Mckee for potential procedure to aid in his venous insufficiency. Discussed continued diet to aid in healing with adequate protein intake. Discussed signs and symptoms of infection. Discussed if he notices any increasing redness around the ulcerative site that is moved up the leg, purulent drainage from the ulcerative site, increasing foul odor from the ulcerative site, or if he develops fever greater than 101 degree accompanied by nausea, vomiting, chills of these are signs of a progressing infection and he should report to the ED for IV antibiotics and further evaluation. He is understanding of this today. The following work up and care recommendations were made: Dressing: Liliana to ulcerative bed with 3M compression wrap to the left lower extremity. Will continue compression stocking to right lower extremity Wash: Do not get wet. Use cast bag when showering to maintain compliance. Tissue growth optimization: Liliana Offload: 3M compression wrap Vascular: Does have history of positive venous insufficiency/reflux. Will seek vascular assistance for potential procedure. Edema: 3M compression wrap and elevation of the lower extremities Infection: No signs of infection Pain: May take [id number] Tylenol Extra Strength for discomfort Host factors: Chronic venous insufficiency, chronic lower extremity edema, prolonged standing/activity, advanced age complicate healing. I answered all the patient's questions. To return to the wound healing center in [address] Nagel for courtesy visit or call sooner if the patient has any questions or concerns.
[2025-02-27 11:24] VITALS: BP 142/67; PULSE 62; RESP 14; TEMP 36.7
[2025-03-02 13:52] VITALS: BP 113/75; PULSE 63; RESP 18; TEMP 36
--- NOTE | 2025-03-03 09:50 | WC ---
PHOTO 03/02/25 LEFT [facility] [place] [facility]
[2025-03-06 10:58] VITALS: BP 120/67; PULSE 57; RESP 18; TEMP 36.7
[2025-03-09 08:56] VITALS: BP 131/61; PULSE 69; RESP 18; TEMP 35.7
--- NOTE | 2025-03-09 09:27 | PCM.WC.PN ---
History of Present Illness Date of Service: 03/09/25 Chief Complaint: Left medial ankle wound History of Wound: Patient is a 79-year-old male who presents to the wound care center with recurring left lower extremity medial ankle wound. He has PMHx of recurring left lower extremity ulceration secondary to chronic venous insufficiency, history of DVT, obesity, JOSHUA, iron deficient anemia, delayed wound healing, and asthma. He states that he does have compression stockings and continues to wear them. He had been following in the wound care center for a deep ulceration to the medial aspect of the left lower extremity overlying the neurovascular bundle. He did go on to heal this ulceration as of 12/31/[address] Mckee for venogram. He has continued wearing compression stockings however states that while in the shower he did notice a scab of the left medial ankle and after showering applied antibiotic ointment and Band-Aid which later then the scab became soft and opened a small wound. He states that he did see his PCP who did obtain cultures and placed him on oral antibiotic. He was then referred to the wound care center for further follow-up. He denies any further trauma to the site. States that the specific site is recurrent with breakdown of skin. Denies N/V/F/chills. No further complaints. Subjective Subjective This is a 80-year-old male who returns to the wound care center for continued follow-up of a chronic venous stasis/insufficiency ulceration at the medial aspect of the left lower extremity. He reports keeping dressing clean, dry, and intact with his 3M compression wrap to the left lower extremity. He did return for dressing change as nurse visit this past Thursday and did see Dr. Nagel last week for courtesy visit. States that he did believe the wound measured bigger today due to superficial skin tear removing his 3M wrap. His swelling appears to be well-controlled. He denies constitutional symptoms. Denies further complaints. Objective Data Objective Data Vital Signs: Vital Signs Temp Pulse Resp BP O2 Del Method 96.3 F L 69 18 131/61 H Room Air 03/09/25 08:56 03/09/25 08:56 03/09/25 08:56 03/09/25 08:56 03/09/25 08:56 Oxygen Delivery Method Room Air Physical Exam Const alert, oriented x3 and no apparent distress General Appearance: cooperative HEENT normocephalic Eyes General Eye: normal appearance of both eyes Neck General: normal visual inspection Lymph Lymphatic: no lymphadenopathy noted and no lymphedema noted Resp normal respiratory effort Cardio regular rate and regular rhythm Extremity Extremity Narrative: Left lower extremity: Vascular: DP and PT pulses weakly palpable. Capillary fill time to digits is 5 seconds. Normal temperature gradient. There is absent hair growth to digits noted. Dermatological: There is a full-thickness ulceration noted to the medial aspect of the lower extremity/ankle with mixed fibrogranular layer. Negative Stemmer sign left foot. There is evidence of stasis dermatitis with hyperpigmentation/hemosiderin deposition/staining of skin left lower extremity. There are varicosities noted of the lower extremity with mild lower extremity edema. There is no erythema or rubor of the left lower extremity. Musculoskeletal: Muscle strength 5 of 5 age-appropriate. There is decreased range of motion of the ankle joint dorsiflexion with knee extended without pain or crepitus. Decreased range of motion of the STJ, MTJ, and first MTPJ without pain or crepitus. There is pain to palpation of the left calf today with positive Gómez sign and Homans' sign. Skin no rashes or lesions noted General Skin Exam: venous stasis and dermatitis Neuro moves all extremities Debridement Note Debridement Note Wound debrided: Left lower extremity Laterality: Left Wound Grade/Stage: Cisneros stage I Type of Debridement: Excisional debridement Anesthesia Used: 5% Lidocaine Gel Depth: Down to and including healthy tissue and in the subcutaneous layer Percentage of wound debrided: 100 Instrument Used: 5mm curette Tissue Removed: Fibrous, devitalized subcutaneous, biofilm, slough Severity: Fat Layer Exposed Amount of bleeding with debridement: Mild Bleeding Controlled with: Compression and gauze Patient tolerated procedure: Patient tolerated procedure well Post-Debridement Measurements and Additional Note: Post-Debridement Measurements/Treatment LA NENA - Nurse 1 - General Ulcer Assessment Start: 02/16/25 09:17 Freq: Status: Active Protocol: ANAYA Activity Type Activity Date Activity User E-sign Co-sign Detail Recorded Client Recorded Date Recorded By Document 02/16/25 09:21 KW [id number] 02/16/25 09:29 KW Document 02/20/25 08:53 KW [id number] 02/20/25 08:56 KW Document 02/23/25 09:23 KW [id number] 02/23/25 09:28 KW Document 02/27/25 11:24 ML [id number] 02/27/25 11:26 ML Document 03/02/25 13:52 RB [id number] 03/02/25 13:54 RB Document 03/06/25 10:58 GM [id number] 03/06/25 11:00 GM Document 03/09/25 08:56 KW [id number] 03/09/25 09:06 KW 02/16/25 02/20/25 02/23/25 09:21 08:53 09:23 WC - Today's Visit Information Type of service Initial Visit Follow-up Visit Follow-up Visit (Physician/WATCH REPAIR PERSON (Physician/WATCH REPAIR PERSON ) ) Arrival Mode Ambulatory Ambulatory Ambulatory Transfer Assistance Patient Identification Verified (Name & Yes Yes Yes ) Patient Requires Transmission-Based Precautions Vital Signs Temperature (97.8 F-99.1 F) 96.9 F L 96.3 F L Temperature Source Temporal Temporal Pulse Rate (60-100) 67 67 60 Pulse Location Monitor Monitor Monitor Respiratory Rate (12-18) 18 18 18 Respiratory rate source Observation Observation Observation Oxygen Delivery Method Room Air Room Air Room Air Blood Pressure (90/60-120/80) 144/58 H 150/78 H 126/66 H Blood Pressure Mean (mm Hg) 86 102 86 Source Monitor Monitor Monitor Position Semi-Fowlers Semi-Fowlers Semi-Fowlers Blood Pressure Location Right Arm Right Forearm Left Arm History Since Last Visit- (Skip if this is Patient's initial visit) Have you changed medications since your No No last visit? Any new allergies or adverse reactions No No Had a fall/change in ADL's that may No No increase risk of falls Signs or symptoms of abuse and/or No No neglect since last visit Have you been in the hospital since your No No last visit? Has dressing in place as prescribed Yes Yes Has compression in place as prescribed Yes Yes Has offloadiing in place as prescribed N/A N/A Experienced any changes in pain level or No No management Left Footwear Regular Shoe Regular Shoe Regular Shoe Right Footwear Regular Shoe Regular Shoe Regular Shoe Pain Scale: 0-10 Numeric Is Patient Pain Free? Yes Yes Yes 02/27/25 03/02/25 03/06/25 11:24 13:52 10:58 - Today's Visit Information Type of service Nurse-only Follow-up Visit Nurse-only Visit (Physician/WATCH REPAIR PERSON Visit ) Arrival Mode Ambulatory Ambulatory Ambulatory Transfer Assistance None None None Patient Identification Verified (Name & Yes Yes Yes ) Patient Requires Transmission-Based No No No Precautions Vital Signs Temperature (97.8 F-99.1 F) 98.1 F 96.8 F L 98.0 F Temperature Source Temporal Temporal Temporal Pulse Rate (60-100) 62 63 57 L Pulse Location Monitor Monitor Monitor Respiratory Rate (12-18) 14 18 18 Respiratory rate source Observation Observation Observation Oxygen Delivery Method Room Air Blood Pressure (90/60-120/80) 142/67 H 113/75 120/67 Blood Pressure Mean (mm Hg) 92 87 84 Source Monitor Monitor Monitor Position Sitting Sitting Sitting Blood Pressure Location Right Arm Left Arm Left Arm History Since Last Visit- (Skip if this is Patient's initial visit) Have you changed medications since your No No last visit? Any new allergies or adverse reactions No No Had a fall/change in ADL's that may No No increase risk of falls Signs or symptoms of abuse and/or No No neglect since last visit Have you been in the hospital since your No last visit? Has dressing in place as prescribed Yes Yes Has compression in place as prescribed Yes Yes Has offloadiing in place as prescribed N/A N/A Experienced any changes in pain level or No No management Left Footwear Regular Shoe Right Footwear Regular Shoe Pain Scale: 0-10 Numeric Is Patient Pain Free? Yes Yes Yes 03/09/25 08:56 WC - Today's Visit Information Type of service Follow-up Visit (Physician/WATCH REPAIR PERSON ) Arrival Mode Ambulatory Transfer Assistance Patient Identification Verified (Name & Yes ) Patient Requires Transmission-Based Precautions Vital Signs Temperature (97.8 F-99.1 F) 96.3 F L Temperature Source Temporal Pulse Rate (60-100) 69 Pulse Location Monitor Respiratory Rate (12-18) 18 Respiratory rate source Observation Oxygen Delivery Method Room Air Blood Pressure (90/60-120/80) 131/61 H Blood Pressure Mean (mm Hg) 84 Source Monitor Position Semi-Fowlers Blood Pressure Location Right Arm History Since Last Visit- (Skip if this is Patient's initial visit) Have you changed medications since your No last visit? Any new allergies or adverse reactions No Had a fall/change in ADL's that may No increase risk of falls Signs or symptoms of abuse and/or No neglect since last visit Have you been in the hospital since your No last visit? Has dressing in place as prescribed Yes Has compression in place as prescribed Yes Has offloadiing in place as prescribed N/A Experienced any changes in pain level or No management Left Footwear Regular Shoe Right Footwear Regular Shoe Pain Scale: 0-10 Numeric Is Patient Pain Free? Yes WC - Nurse 1 - General Ulcer Measurement Start: 02/16/25 09:17 Freq: Status: Active Protocol: Activity Type Activity Date Activity User E-sign Co-sign Detail Recorded Client Recorded Date Recorded By Document 02/16/25 09:21 KW [id number] 02/16/25 09:29 KW Document 02/23/25 09:23 KW [id number] 02/23/25 09:28 KW Document 03/02/25 13:52 RB [id number] 03/02/25 13:54 RB Document 03/09/25 08:56 KW [id number] 03/09/25 09:06 KW 02/16/25 02/23/25 03/02/25 09:21 09:23 13:52 Wound Center Nurse 1 #1 L Med Ankle -Combined with other wound No -Current Size (cm) - Length 1 1 0.1 -Current Size (cm) - Width 0.5 0.7 0.1 -Current Size (cm) - Depth 0.2 0.1 0.1 -Total Square Cm 0.5 0.7 0.01 -Date of Last Picture (Recall this 02/16/25 field) -Photo Taken Yes -Tunneling No -Undermining/Tunneling No -Circular Undermining No -Exudate Amt Small Small -Exudate Type Serosanguineous Serosanguineous Serosanguineous -Wound Margin Distinct, Distinct, Distinct, Outline Outline Outline Attached Attached Attached -Granulation Amt Large (67-100%) Small (1-33%) Large (67-100%) -Granulation Quality [place] -Slough/Fibrin Yes -Necrosis Amt Medium (34-66%) Large (67-100%) Small (1-33%) -Necrotic Tissue Type Adherent Slough Adherent Slough Adherent Slough -Structure Exposed N/A -Texture (Megan-wound Skin Appearance) Assessed Assessed Assessed -Moisture (Megan-wound Skin Appearance) Assessed Assessed Assessed -Color (Megan-wound Skin Appearance) Assessed Assessed, Hemosiderin Erythema Staining -Temperature (Megan-wound Skin No Abnormality No Abnormality No Abnormality Appearance) (Pt Warm) (Pt Warm) (Pt Warm) -Tenderness on Palpation (Megan-wound No No No Skin Appearance) -Ulcer Cleansing Soap and Water Soap and Water Wound Cleanser -Foul Odor after Cleansing No No No -Anesthetic Used 5% Lidocaine 5% Lidocaine 5% Lidocaine Gel Gel Gel Lower Limb Edema Present Yes Left Calf (cm) 38 35 38 Left Ankle (cm) 23 20.8 23 03/09/25 08:56 Wound Center Nurse 1 #1 L Med Ankle -Combined with other wound -Current Size (cm) - Length 2.5 -Current Size (cm) - Width 0.5 -Current Size (cm) - Depth 0.1 -Total Square Cm 1.25 -Date of Last Picture (Recall this 03/09/25 field) -Photo Taken -Tunneling -Undermining/Tunneling -Circular Undermining -Exudate Amt Medium -Exudate Type Serosanguineous -Wound Margin Distinct, Outline Attached -Granulation Amt Large (67-100%) -Granulation Quality Red -Slough/Fibrin -Necrosis Amt -Necrotic Tissue Type -Structure Exposed -Texture (Megan-wound Skin Appearance) Assessed -Moisture (Megan-wound Skin Appearance) Assessed -Color (Megan-wound Skin Appearance) Assessed, Erythema, Hemosiderin Staining -Temperature (Megan-wound Skin No Abnormality Appearance) (Pt Warm) -Tenderness on Palpation (Megan-wound No Skin Appearance) -Ulcer Cleansing Soap and Water -Foul Odor after Cleansing No -Anesthetic Used 5% Lidocaine Gel Lower Limb Edema Present Left Calf (cm) 30.5 Left Ankle (cm) 20.5 WC - Nurse 2 - General Ulcer CM Notes Start: 02/16/25 09:17 Freq: Status: Active Protocol: Activity Type Activity Date Activity User E-sign Co-sign Detail Recorded Client Recorded Date Recorded By Document 02/16/25 09:35 BM [id number] 02/16/25 09:42 BM Document 02/23/25 09:46 BMF [id number] 02/23/25 09:48 BMF Document 03/02/25 14:00 BM [id number] 03/02/25 14:07 BMF Document 03/09/25 09:22 BM [id number] 03/09/25 09:25 [facility] 02/16/25 02/23/25 03/02/25 09:35 09:46 14:00 Wound Center Nurse 2 #1 L [facility] Ankle -Time 09:46 14:00 -Correct Patient Yes Yes Yes -Correct Side, Site, Position Yes Yes Yes -Correct Procedure Yes Yes Yes -Procedure Performed Yes Yes Yes -Type of Procedure Debridement Debridement Debridement -Clinical Debridement Subcutaneous Subcutaneous Subcutaneous -Tissue Removed Subcutaneous Subcutaneous Subcutaneous -Post Debridement (cm) - Length 0.9 1.1 0.9 -Post Debridement (cm) - Width 0.5 0.7 0.5 -Post Debridement (cm) - Depth 0.1 0.1 0.2 -Total Square (Post) (cm) 0.45 0.77 0.45 -Area of Debridement (cm) - Length 0.9 1.1 0.9 -Area of Debridement (cm) - Width 0.5 0.7 0.5 -Total Square (Area) (cm) 0.45 0.77 0.45 -Tunneling No No No -Undermining/Tunneling No No No -Circular Undermining No No No -Wound/Ulcer Outcome Not Healed Not Healed Not Healed -Ulcer Cleansing Rinsed/ Rinsed/ Rinsed/ Irrigated with Irrigated with Irrigated with Saline Saline Saline -Foul Odor after Cleansing No No No -Bioengineered Tissue No No No -Bleeding Controlled with Pressure Pressure Pressure -Treatment Response Procedure Procedure Procedure Tolerated Well Tolerated Well Tolerated Well -Debridement - Subq, 1st 20sq cm Yes Yes Yes Pain Scale: 0-10 Numeric Is Patient Pain Free? Yes Yes Yes 03/09/25 09:22 Wound Center Nurse 2 #1 L [facility] Ankle -Time : -Correct Patient Yes -Correct Side, Site, Position Yes -Correct Procedure Yes -Procedure Performed Yes -Type of Procedure Debridement -Clinical Debridement Subcutaneous -Tissue Removed Subcutaneous -Post Debridement (cm) - Length 2.7 -Post Debridement (cm) - Width 1 -Post Debridement (cm) - Depth 0.1 -Total Square (Post) (cm) 2.7 -Area of Debridement (cm) - Length 2.7 -Area of Debridement (cm) - Width 1 -Total Square (Area) (cm) 2.7 -Tunneling No -Undermining/Tunneling No -Circular Undermining No -Wound/Ulcer Outcome Not Healed -Ulcer Cleansing Rinsed/ Irrigated with Saline -Foul Odor after Cleansing No -Bioengineered Tissue No -Bleeding Controlled with Pressure -Treatment Response Procedure Tolerated Well -Debridement - Subq, 1st 20sq cm Yes Pain Scale: 0-10 Numeric Is Patient Pain Free? Yes - Nurse 3 - General Ulcer D/C NN Start: 02/16/25 09:17 Freq: Status: Active Protocol: Activity Type Activity Date Activity User E-sign Co-sign Detail Recorded Client Recorded Date Recorded By Document 02/16/25 11:47 RB [id number] 02/16/25 11:48 RB Document 02/20/25 08:53 KW [id number] 02/20/25 08:56 KW Document 02/23/25 09:57 DL [id number] 02/23/25 09:58 DL Document 02/27/25 11:24 ML [id number] 02/27/25 11:26 ML Document 03/02/25 14:17 DL [id number] 03/02/25 14:18 DL Document 03/06/25 10:58 GM [id number] 03/06/25 11:00 GM 02/16/25 02/20/25 02/23/25 11:47 08:53 09:57 Wound Care Center Nurse 3 #1 L Med Ankle -Ulcer Cleansing Rinsed/ Soap and Water Rinsed/ Irrigated with Irrigated with Saline Saline -Foul Odor after Cleansing No -Primary Dressing Applied Promogran Promogran Promogran Abran Matter Abran Matter Abran Matter -Other Dressing -Primary Dressing Covered/Secured with Dry Gauze & Dry Gauze Dry Gauze Roll Gauze, Secured with Tape -Promogran Abran Matter 1 1 1 LLE -Lotion applied to leg before Yes compression wrap -Multi-Layered Wrap Application Multi-Layer Multi-Layer Multi-Layer Comp - Left ($) Comp - Left ($) Comp - Left ($) -Stockings -Multi-Layer Compression Left (Qty 1 1 1 applied) Treatment Response Procedure Tolerated Well Pain Scale: 0-10 Numeric Is Patient Pain Free? Yes Yes Yes WC - Visit Discharge Discharge Condition Stable Stable Stable Ambulatory Status Ambulatory Ambulatory Ambulatory Transportation Private Auto Private Auto Private Auto Medication Reconcilliation completed & No No provided to patient/care provider Clinical Summary of Care Provided Yes Yes 0503/02/25 03/06/25 11:24 14:17 10:58 Wound Care Center Nurse 3 #1 L Med Ankle -Ulcer Cleansing Soap and Water Rinsed/ Soap and Water Irrigated with Saline -Foul Odor after Cleansing No No -Primary Dressing Applied Promogran Promogran Promogran Abran Matter Abran Matter Abran Matter -Other Dressing PT BROUGHT OWN ABRAN -Primary Dressing Covered/Secured with Dry Gauze Dry Gauze Dry Gauze, Secured with Tape -Promogran Abran Matter 0 1 1 LLE -Lotion applied to leg before No compression wrap -Multi-Layered Wrap Application Multi-Layer Multi-Layer Multi-Layer Comp - Left ($) Comp - Left ($) Comp - Left ($) -Stockings No -Multi-Layer Compression Left (Qty 1 1 1 applied) Treatment Response Procedure Tolerated Well Pain Scale: 0-10 Numeric Is Patient Pain Free? Yes Yes Yes WC - Visit Discharge Discharge Condition Stable Stable Ambulatory Status Ambulatory Ambulatory Transportation Private Auto Private Auto Medication Reconcilliation completed & provided to patient/care provider Clinical Summary of Care Provided Assessment/Plan Assessment/Plan (1) Non-pressure chronic ulcer of left calf with fat layer exposed: CODE(S): L97.222 - Non-pressure chronic ulcer of left calf with fat layer exposed (2) Ulcer of extremity due to chronic venous insufficiency: CODE(S): L98.499 - Non-pressure chronic ulcer of skin of other sites with unspecified severity; I87.2 - Venous insufficiency (chronic) (peripheral) (3) Bilateral lower extremity edema: CODE(S): R60.0 - Localized edema PLAN: Plan Patient seen and evaluated Predebridement measurement 2.6 cm x 0.9 cm x 0.1 cm Ulceration site underwent debridement as noted in the clinical panel above. Postdebridement measurement 2.7 cm x 1.0 cm x 0.1 cm. Abran was applied to the wound bed and 3M compression wrap to left lower extremity. He was instructed to keep dressings clean, dry, and intact to the left lower extremity. There is slight increase in size of ulceration versus previous visit due to superficial skin tear distal to ulceration site. However, edema remains well-controlled. Stat Doppler for 02/16/2025 was negative for DVT. He will have repeat venous study next Thursday prior to scheduling for venous ablation in March. He was again instructed on continued elevation of the lower extremities to aid in edema control. Following healing of ulcerative site he will return to compression stockings however this time we will increase from 20 to 30 mmHg to 30 to 40 mmHg versus application of juxta lite compression. Juxta lite compression wrap was applied for 02/16/2025, awaiting approval. He is following with Dr. Mckee for procedure to aid in his venous insufficiency. Discussed continued diet to aid in healing with adequate protein intake. Discussed signs and symptoms of infection. Discussed if he notices any increasing redness around the ulcerative site that is moved up the leg, purulent drainage from the ulcerative site, increasing foul odor from the ulcerative site, or if he develops fever greater than 101 degree accompanied by nausea, vomiting, chills of these are signs of a progressing infection and he should report to the ED for IV antibiotics and further evaluation. He is understanding of this today. The following work up and care recommendations were made: Dressing: Abran to ulcerative bed with 3M compression wrap to the left lower extremity. Will continue compression stocking to right lower extremity Wash: Do not get wet. Use cast bag when showering to maintain compliance. Tissue growth optimization: Abran Offload: 3M compression wrap Vascular: Does have history of positive venous insufficiency/reflux. Will seek vascular assistance for potential procedure. Edema: 3M compression wrap and elevation of the lower extremities Infection: No signs of infection Pain: May take [id number] Tylenol Extra Strength for discomfort Host factors: Chronic venous insufficiency, chronic lower extremity edema, prolonged standing/activity, advanced age complicate healing. I answered all the patient's questions. To return to the wound healing center in 1 week or call sooner if the patient has any questions or concerns.
[2025-03-14 11:06] VITALS: RESP 16
[2025-03-16 08:50] VITALS: BP 106/47; PULSE 71; RESP 16; TEMP 35.6
--- NOTE | 2025-03-16 09:28 | PN.PCM_ITS ---
History of Present Illness Date of Service: 03/16/25 Chief Complaint: Left medial ankle wound History of Wound: The patient is seen today as a courtesy visit for Dr. Merrill Burns, the patient's regular Wound Center provider. The patient's medical history is as recently documented below. Patient is a 79-year-old male who presents to the wound care center with recurring left lower extremity medial ankle wound. He has PMHx of recurring left lower extremity ulceration secondary to chronic venous insufficiency, history of DVT, obesity, JOSHUA, iron deficient anemia, delayed wound healing, and asthma. He states that he does have compression stockings and continues to wear them. He had been following in the wound care center for a deep ulceration to the medial aspect of the left lower extremity overlying the neurovascular bundle. He did go on to heal this ulceration as of 12/31/[address] Mckee for venogram. He has continued wearing compression stockings however states that while in the shower he did notice a scab of the left medial ankle and after showering applied antibiotic ointment and Band-Aid which later then the scab became soft and opened a small wound. He states that he did see his PCP who did obtain cultures and placed him on oral antibiotic. He was then referred to the wound care center for further follow-up. He denies any further trauma to the site. States that the specific site is recurrent with breakdown of skin. Denies N/V/F/chills. No further complaints. Subjective Subjective This is a 80-year-old male who returns to the wound care center for continued follow-up of a chronic venous stasis/insufficiency ulceration at the medial aspect of the left lower extremity. He reports keeping dressing clean, dry, and intact with his 3M compression wrap to the left lower extremity. He did return for dressing change as nurse visit this past Thursday. States wound was smaller but today skin did tear upon removal of the dressing and that did increase the wound size. His swelling appears to be well-controlled with compression wrap. He did undergo updated venous study prior to this procedure with no changes found. He denies constitutional symptoms. Denies further complaints. Objective Data Objective Data Vital Signs: Vital Signs Temp Pulse Resp BP O2 Del Method 96.0 F L 71 16 106/47 L Room Air 03/16/25 08:50 03/16/25 08:50 03/16/25 08:50 03/16/25 08:50 03/14/25 11:06 Oxygen Delivery Method Room Air Physical Exam Const alert, oriented x3 and no apparent distress General Appearance: cooperative HEENT normocephalic Eyes General Eye: normal appearance of both eyes Neck General: normal visual inspection Lymph Lymphatic: no lymphadenopathy noted and no lymphedema noted Resp normal respiratory effort Cardio regular rate and regular rhythm Extremity Extremity Narrative: Left lower extremity: Vascular: DP and PT pulses weakly palpable. Capillary fill time to digits is 5 seconds. Normal temperature gradient. There is absent hair growth to digits noted. Dermatological: There is a full-thickness ulceration noted to the medial aspect of the lower extremity/ankle with mixed fibrogranular layer. Negative Stemmer sign left foot. There is evidence of stasis dermatitis with hyperpigmentation/hemosiderin deposition/staining of skin left lower extremity. There are varicosities noted of the lower extremity with mild lower extremity edema. There is no erythema or rubor of the left lower extremity. Musculoskeletal: Muscle strength 5 of 5 age-appropriate. There is decreased range of motion of the ankle joint dorsiflexion with knee extended without pain or crepitus. Decreased range of motion of the STJ, MTJ, and first MTPJ without pain or crepitus. There is pain to palpation of the left calf today with p ositive Gómez sign and Homans' sign. Skin no rashes or lesions noted General Skin Exam: venous stasis and dermatitis Neuro moves all extremities Debridement Note Debridement Note Wound debrided: Left medial ankle/lower extremity Laterality: Left Wound Grade/Stage: Cisneros stage I Type of Debridement: Excisional debridement Anesthesia Used: 5% Lidocaine Gel Depth: Down to and including healthy tissue and in the subcutaneous layer Percentage of wound debrided: 100 Instrument Used: 5mm curette Tissue Removed: Fibrous, devitalized subcutaneous, biofilm, slough Severity: Fat Layer Exposed Amount of bleeding with debridement: Mild Bleeding Controlled with: Compression and gauze Patient tolerated procedure: Patient tolerated procedure well Post-Debridement Measurements and Additional Note: Post-Debridement Measurements/Treatment WC - Nurse 1 - General Ulcer Assessment Start: 02/16/25 09:17 Freq: Status: Active Protocol: ANAYA Activity Type Activity Date Activity User E-sign Co-sign Detail Recorded Client Recorded Date Recorded By Document 05/01/25 09:21 KW [id number] 02/16/25 09:29 KW Document 02/20/25 08:53 KW [id number] 02/20/25 08:56 KW Document 02/23/25 09:23 KW [id number] 02/23/25 09:28 KW Document 02/27/25 11:24 ML [id number] 02/27/25 11:26 ML Document 03/02/25 13:52 RB [id number] 03/02/25 13:54 RB Document 03/06/25 10:58 GM [id number] 03/06/25 11:00 GM Document 03/09/25 08:56 KW [id number] 03/09/25 09:06 KW Document 03/14/25 11:06 KW [id number] 03/14/25 11:15 KW Document 03/16/25 08:50 JF [id number] 03/16/25 08:57 JF 02/16/25 02/20/25 02/23/25 09:21 08:53 09:23 WC - Today's Visit Information Type of service Initial Visit Follow-up Visit Follow-up Visit (Physician/DIRECTOR [employer] SAL[employer] (Physician/DIRECTOR [employer] ) ) Arrival Mode Ambulatory Ambulatory Ambulatory Transfer Assistance Patient Identification Verified (Name & Yes Yes Yes ) Patient Requires Transmission-Based Precautions Vital Signs Temperature (97.8 F-99.1 F) 96.9 F L 96.3 F L Temperature Source Temporal Temporal Pulse Rate (60-100) 67 67 60 Pulse Location Monitor Monitor Monitor Respiratory Rate (12-18) 18 18 18 Respiratory rate source Observation Observation Observation Oxygen Delivery Method Room Air Room Air Room Air Blood Pressure (90/60-120/80) 144/58 H 150/78 H 126/66 H Blood Pressure Mean (mm Hg) 86 102 86 Source Monitor Monitor Monitor Position Semi-Fowlers Semi-Fowlers Semi-Fowlers Blood Pressure Location Right Arm Right Forearm Left Arm History Since Last Visit- (Skip if this is Patient's initial visit) Have you changed medications since your No No last visit? Any new allergies or adverse reactions No No Had a fall/change in ADL's that may No No increase risk of falls Signs or symptoms of abuse and/or No No neglect since last visit Have you been in the hospital since your No No last visit? Has dressing in place as prescribed Yes Yes Has compression in place as prescribed Yes Yes Has offloadiing in place as prescribed N/A N/A Experienced any changes in pain level or No No management Left Footwear Regular Shoe Regular Shoe Regular Shoe Right Footwear Regular Shoe Regular Shoe Regular Shoe Pain Scale: 0-10 Numeric Is Patient Pain Free? Yes Yes Yes 02/27/25 03/02/25 03/06/25 11:24 13:52 10:58 - Today's Visit Information Type of service Nurse-only Follow-up Visit Nurse-only Visit (Physician/DIRECTOR [employer] Visit ) Arrival Mode Ambulatory Ambulatory Ambulatory Transfer Assistance None None None Patient Identification Verified (Name & Yes Yes Yes ) Patient Requires Transmission-Based No No No Precautions Vital Signs Temperature (97.8 F-99.1 F) 98.1 F 96.8 F L 98.0 F Temperature Source Temporal Temporal Temporal Pulse Rate (60-100) 62 63 57 L Pulse Location Monitor Monitor Monitor Respiratory Rate (12-18) 14 18 18 Respiratory rate source Observation Observation Observation Oxygen Delivery Method Room Air Blood Pressure (90/60-120/80) 142/67 H 113/75 120/67 Blood Pressure Mean (mm Hg) 92 87 84 Source Monitor Monitor Monitor Position Sitting Sitting Sitting Blood Pressure Location Right Arm Left Arm Left Arm History Since Last Visit- (Skip if this is Patient's initial visit) Have you changed medications since your No No last visit? Any new allergies or adverse reactions No No Had a fall/change in ADL's that may No No increase risk of falls Signs or symptoms of abuse and/or No No neglect since last visit Have you been in the hospital since your No last visit? Has dressing in place as prescribed Yes Yes Has compression in place as prescribed Yes Yes Has offloadiing in place as prescribed N/A N/A Experienced any changes in pain level or No No management Left Footwear Regular Shoe Right Footwear Regular Shoe Pain Scale: 0-10 Numeric Is Patient Pain Free? Yes Yes Yes 03/09/25 03/14/25 03/16/25 08:56 11:06 08:50 - Today's Visit Information Type of service Follow-up Visit Nurse-only Follow-up Visit (Physician/DIRECTOR [employer] Visit (Physician/DIRECTOR [employer] ) ) Arrival Mode Ambulatory Ambulatory Ambulatory Transfer Assistance Patient Identification Verified (Name & Yes Yes Yes ) Patient Requires Transmission-Based No Precautions Vital Signs Temperature (97.8 F-99.1 F) 96.3 F L 96.0 F L Temperature Source Temporal Temporal Temporal Pulse Rate (60-100) 69 71 Pulse Location Monitor Monitor Monitor Respiratory Rate (12-18) 18 16 16 Respiratory rate source Observation Observation Observation Oxygen Delivery Method Room Air Room Air Blood Pressure (90/60-120/80) 131/61 H 106/47 L Blood Pressure Mean (mm Hg) 84 66 Source Monitor Monitor Monitor Position Semi-Fowlers Sitting Semi-Fowlers Blood Pressure Location Right Arm Right Arm Left Arm History Since Last Visit- (Skip if this is Patient's initial visit) Have you changed medications since your No No No last visit? Any new allergies or adverse reactions No No No Had a fall/change in ADL's that may No No No increase risk of falls Signs or symptoms of abuse and/or No No No neglect since last visit Have you been in the hospital since your No No No last visit? Has dressing in place as prescribed Yes Yes Yes Has compression in place as prescribed Yes Yes Yes Has offloadiing in place as prescribed N/A N/A N/A Experienced any changes in pain level or No No No management Left Footwear Regular Shoe Regular Shoe Regular Shoe Right Footwear Regular Shoe Regular Shoe Regular Shoe Pain Scale: 0-10 Numeric Is Patient Pain Free? Yes Yes Yes WC - Nurse 1 - General Ulcer Measurement Start: 02/16/25 09:17 Freq: Status: Active Protocol: Activity Type Activity Date Activity User E-sign Co-sign Detail Recorded Client Recorded Date Recorded By Document 02/16/25 09:21 KW [id number] 02/16/25 09:29 KW Document 02/23/25 09:23 KW [id number] 02/23/25 09:28 KW Document 03/02/25 13:52 RB [id number] 03/02/25 13:54 RB Document 03/09/25 08:56 KW [id number] 03/09/25 09:06 KW Document 03/16/25 08:50 JF [id number] 03/16/25 08:57 JF 02/16/25 02/23/25 03/02/25 09:21 09:23 13:52 Wound Center Nurse 1 #1 L Med Ankle -Combined with other wound No -Current Size (cm) - Length 1 1 0.1 -Current Size (cm) - Width 0.5 0.7 0.1 -Current Size (cm) - Depth 0.2 0.1 0.1 -Total Square Cm 0.5 0.7 0.01 -Date of Last Picture (Recall this 02/16/25 field) -Photo Taken Yes -Epithelialization -Tunneling No -Undermining/Tunneling No -Circular Undermining No -Exudate Amt Small Small -Exudate Type Serosanguineous Serosanguineous Serosanguineous -Wound Margin Distinct, Distinct, Distinct, Outline Outline Outline Attached Attached Attached -Granulation Amt Large (67-100%) Small (1-33%) Large (67-100%) -Granulation Quality Arkoma Arkoma Arkoma -Slough/Fibrin Yes -Necrosis Amt Medium (34-66%) Large (67-100%) Small (1-33%) -Necrotic Tissue Type Adherent Slough Adherent Slough Adherent Slough -Structure Exposed N/A -Texture (Megan-wound Skin Appearance) Assessed Assessed Assessed -Moisture (Megan-wound Skin Appearance) Assessed Assessed Assessed -Color (Megan-wound Skin Appearance) Assessed Assessed, Hemosiderin Erythema Staining -Temperature (Megan-wound Skin No Abnormality No Abnormality No Abnormality Appearance) (Pt Warm) (Pt Warm) (Pt Warm) -Tenderness on Palpation (Megan-wound No No No Skin Appearance) -Ulcer Cleansing Soap and Water Soap and Water Wound Cleanser -Foul Odor after Cleansing No No No -Anesthetic Used 5% Lidocaine 5% Lidocaine 5% Lidocaine Gel Gel Gel Lower Limb Edema Present Yes Left Calf (cm) 38 35 38 Left Ankle (cm) 23 20.8 23 03/09/25 03/16/25 08:56 08:50 Wound Center Nurse 1 #1 L Med Ankle -Combined with other wound No -Current Size (cm) - Length 2.5 2.8 -Current Size (cm) - Width 0.5 1.0 -Current Size (cm) - Depth 0.1 0.1 -Total Square Cm 1.25 2.80 -Date of Last Picture (Recall this 03/09/25 field) -Photo Taken Yes -Epithelialization Small 1-33% -Tunneling No -Undermining/Tunneling No -Circular Undermining No -Exudate Amt Medium Medium -Exudate Type Serosanguineous Serosanguineous -Wound Margin Distinct, Flat & Intact Outline Attached -Granulation Amt Large (67-100%) Medium (34-66%) -Granulation Quality Red Arkoma -Slough/Fibrin Yes -Necrosis Amt Small (1-33%) -Necrotic Tissue Type Adherent Slough -Structure Exposed N/A -Texture (Megan-wound Skin Appearance) Assessed Assessed, Localized Edema -Moisture (Megan-wound Skin Appearance) Assessed Assessed,Dry/ Scaly -Color (Megan-wound Skin Appearance) Assessed, Assessed Erythema, Hemosiderin Staining -Temperature (Megan-wound Skin No Abnormality No Abnormality Appearance) (Pt Warm) (Pt Warm) -Tenderness on Palpation (Megan-wound No No Skin Appearance) -Ulcer Cleansing Soap and Water Soap and Water -Foul Odor after Cleansing No No -Anesthetic Used 5% Lidocaine 5% Lidocaine Gel Gel Lower Limb Edema Present Yes Left Calf (cm) 30.5 34.0 Left Ankle (cm) 20.5 22 WC - Nurse 2 - General Ulcer CM Notes Start: 02/16/25 09:17 Freq: Status: Active Protocol: Activity Type Activity Date Activity User E-sign Co-sign Detail Recorded Client Recorded Date Recorded By Document 02/16/25 09:35 [facility] [id number] 02/16/25 09:42 [facility] Document 02/23/25 09:46 [facility] [id number] 02/23/25 09:48 [facility] Document 03/02/25 14:00 [facility] [id number] 03/02/25 14:07 [facility] Document 03/09/25 09:22 [facility] [id number] 03/09/25 09:25 [facility] Document 03/16/25 09:05 [facility] [id number] 03/16/25 09:11 [facility] 02/16/25 02/23/25 03/02/25 09:35 09:46 14:00 Wound Center Nurse 2 #1 L Med Ankle -Time 09:35 09:46 14:00 -Correct Patient Yes Yes Yes -Correct Side, Site, Position Yes Yes Yes -Correct Procedure Yes Yes Yes -Procedure Performed Yes Yes Yes -Type of Procedure Debridement Debridement Debridement -Clinical Debridement Subcutaneous Subcutaneous Subcutaneous -Tissue Removed Subcutaneous Subcutaneous Subcutaneous -Post Debridement (cm) - Length 0.9 1.1 0.9 -Post Debridement (cm) - Width 0.5 0.7 0.5 -Post Debridement (cm) - Depth 0.1 0.1 0.2 -Total Square (Post) (cm) 0.45 0.77 0.45 -Area of Debridement (cm) - Length 0.9 1.1 0.9 -Area of Debridement (cm) - Width 0.5 0.7 0.5 -Total Square (Area) (cm) 0.45 0.77 0.45 -Tunneling No No No -Undermining/Tunneling No No No -Circular Undermining No No No -Wound/Ulcer Outcome Not Healed Not Healed Not Healed -Ulcer Cleansing Rinsed/ Rinsed/ Rinsed/ Irrigated with Irrigated with Irrigated with Saline Saline Saline -Foul Odor after Cleansing No No No -Bioengineered Tissue No No No -Bleeding Controlled with Pressure Pressure Pressure -Treatment Response Procedure Procedure Procedure Tolerated Well Tolerated Well Tolerated Well -Debridement - Subq, 1st 20sq cm Yes Yes Yes Pain Scale: 0-10 Numeric Is Patient Pain Free? Yes Yes Yes 03/09/25 03/16/25 09:22 09:05 Wound Center Nurse 2 #1 L Med Ankle -Time 09:06 -Correct Patient Yes Yes -Correct Side, Site, Position Yes Yes -Correct Procedure Yes Yes -Procedure Performed Yes Yes -Type of Procedure Debridement Debridement -Clinical Debridement Subcutaneous Subcutaneous -Tissue Removed Subcutaneous Subcutaneous -Post Debridement (cm) - Length 2.7 2.5 -Post Debridement (cm) - Width 1 1.0 -Post Debridement (cm) - Depth 0.1 0.1 -Total Square (Post) (cm) 2.7 2.50 -Area of Debridement (cm) - Length 2.7 2.5 -Area of Debridement (cm) - Width 1 1 -Total Square (Area) (cm) 2.7 2.5 -Tunneling No No -Undermining/Tunneling No No -Circular Undermining No No -Wound/Ulcer Outcome Not Healed Not Healed -Ulcer Cleansing Rinsed/ Rinsed/ Irrigated with Irrigated with Saline Saline -Foul Odor after Cleansing No No -Bioengineered Tissue No No -Bleeding Controlled with Pressure Pressure -Treatment Response Procedure Procedure Tolerated Well Tolerated Well -Debridement - Subq, 1st 20sq cm Yes Yes Pain Scale: 0-10 Numeric Is Patient Pain Free? Yes Yes WC - Nurse 3 - General Ulcer D/C NN Start: 02/16/25 09:17 Freq: Status: Active Protocol: Activity Type Activity Date Activity User E-sign Co-sign Detail Recorded Client Recorded Date Recorded By Document 02/16/25 11:47 RB [id number] 02/16/25 11:48 RB Document 02/20/25 08:53 KW [id number] 02/20/25 08:56 KW Document 02/23/25 09:57 DL [id number] 02/23/25 09:58 DL Document 02/27/25 11:24 ML [id number] 02/27/25 11:26 ML Document 03/02/25 14:17 DL [id number] 03/02/25 14:18 DL Document 03/06/25 10:58 GM [id number] 03/06/25 11:00 GM Document 03/09/25 09:31 BMF [id number] 03/09/25 09:32 BMF Document 03/14/25 11:06 KW [id number] 03/14/25 11:15 KW Document 03/16/25 09:22 DL [id number] 03/16/25 09:25 DL 02/16/25 02/20/25 02/23/25 11:47 08:53 09:57 Wound Care Center Nurse 3 #1 L Med Ankle -Ulcer Cleansing Rinsed/ Soap and Water Rinsed/ Irrigated with Irrigated with Saline Saline -Foul Odor after Cleansing No -Primary Dressing Applied Promogran Promogran Promogran Abran Matter Abran Matter Abran Matter -Other Dressing -Primary Dressing Covered/Secured with Dry Gauze & Dry Gauze Dry Gauze Roll Gauze, Secured with Tape -Other Covering -Promogran Abran Matter 1 1 1 -Wound Comment(s) LLE -Lotion applied to leg before Yes compression wrap -Multi-Layered Wrap Application Multi-Layer Multi-Layer Multi-Layer Comp - Left ($) Comp - Left ($) Comp - Left ($) -Stockings -Multi-Layer Compression Left (Qty 1 1 1 applied) Treatment Response Procedure Tolerated Well Pain Scale: 0-10 Numeric Is Patient Pain Free? Yes Yes Yes WC - Visit Discharge Discharge Condition Stable Stable Stable Ambulatory Status Ambulatory Ambulatory Ambulatory Transportation Private Auto Private Auto Private Auto Medication Reconcilliation completed & No No provided to patient/care provider Clinical Summary of Care Provided Yes Yes 02/27/25 03/02/25 03/06/25 11:24 14:17 10:58 Wound Care Center Nurse 3 #1 L Med Ankle -Ulcer Cleansing Soap and Water Rinsed/ Soap and Water Irrigated with Saline -Foul Odor after Cleansing No No -Primary Dressing Applied Promogran Promogran Promogran Abran Matter Abran Matter Abran Matter -Other Dressing PT BROUGHT OWN ABRAN -Primary Dressing Covered/Secured with Dry Gauze Dry Gauze Dry Gauze, Secured with Tape -Other Covering -Promogran Abran Matter 0 1 1 -Wound Comment(s) LLE -Lotion applied to leg before No compression wrap -Multi-Layered Wrap Application Multi-Layer Multi-Layer Multi-Layer Comp - Left ($) Comp - Left ($) Comp - Left ($) -Stockings No -Multi-Layer Compression Left (Qty 1 1 1 applied) Treatment Response Procedure Tolerated Well Pain Scale: 0-10 Numeric Is Patient Pain Free? Yes Yes Yes WC - Visit Discharge Discharge Condition Stable Stable Ambulatory Status Ambulatory Ambulatory Transportation Private Auto Private Auto Medication Reconcilliation completed & provided to patient/care provider Clinical Summary of Care Provided 03/09/25 03/14/25 03/16/25 09:31 11:06 09:22 Wound Care Center Nurse 3 #1 L Med Ankle -Ulcer Cleansing Rinsed/ Soap and Water Rinsed/ Irrigated with Irrigated with Saline Saline -Foul Odor after Cleansing No No -Primary Dressing Applied Promogran Promogran Abran Matter Abran Matter -Other Dressing pt own abran -Primary Dressing Covered/Secured with Dry Gauze Dry Gauze & Dry Gauze Roll Gauze, Secured with Tape -Other Covering Padding to Ant Ankle -Promogran Abran Matter 1 1 -Wound Comment(s) drsg per alejandro rn LLE -Lotion applied to leg before compression wrap -Multi-Layered Wrap Application Multi-Layer Multi-Layer Multi-Layer Comp - Left ($) Comp - Left ($) Comp - Left ($) -Stockings -Multi-Layer Compression Left (Qty 1 1 1 applied) Treatment Response Procedure Procedure Tolerated Well Tolerated Well Pain Scale: 0-10 Numeric Is Patient Pain Free? Yes Yes Yes WC - Visit Discharge Discharge Condition Stable Stable Stable Ambulatory Status Ambulatory Ambulatory Ambulatory Transportation Private Auto Private Auto Private Auto Medication Reconcilliation completed & No provided to patient/care provider Clinical Summary of Care Provided Yes Assessment/Plan Assessment/Plan (1) Non-pressure chronic ulcer of left calf with fat layer exposed: CODE(S): L97.222 - Non-pressure chronic ulcer of left calf with fat layer exposed (2) Ulcer of extremity due to chronic venous insufficiency: CODE(S): L98.499 - Non-pressure chronic ulcer of skin of other sites with unspecified severity; I87.2 - Venous insufficiency (chronic) (peripheral) (3) Bilateral lower extremity edema: CODE(S): R60.0 - Localized edema PLAN: Plan Patient seen and evaluated Predebridement measurement 2.4 cm x 0.9 cm x 0.1 cm Ulceration site underwent debridement as noted in the clinical panel above. Postdebridement measurement 2.5 cm x 1.0 cm x 0.1 cm. Abran was applied to the wound bed followed by Adaptic and 3M compression wrap to left lower extremity. He was instructed to keep dressings clean, dry, and intact to the left lower extremity. There is slight reduction in size of ulceration versus previous visit but superficial skin tear distal upon dressing removal continues to remain an issue. Adaptic placed today to discourage this incident. Edema remains well-controlled with current compression therapy. Stat Doppler for 02/16/2025 was negative for DVT. He did undergo repeat venous study 03/14/25 and will undergo venous ablation on April 13. He was again instructed on continued elevation of the lower extremities to aid in edema control. Following healing of ulcerative site he will return to compression stockings however this time we will increase from 20 to 30 mmHg to 30 to 40 mmHg versus application of juxta lite compression. Juxta lite compression wrap was applied for 02/16/2025, awaiting approval. He is following with Dr. Mckee for procedure to aid in his venous insufficiency. Procedure scheduled for 04/13/25. Discussed continued diet to aid in healing with adequate protein intake. Discussed signs and symptoms of infection. Discussed if he notices any increasing redness around the ulcerative site that is moved up the leg, purulent drainage from the ulcerative site, increasing foul odor from the ulcerative site, or if he develops fever greater than 101 degree accompanied by nausea, vomiting, chills of these are signs of a progressing infection and he should report to the ED for IV antibiotics and further evaluation. He is understanding of this today. The following work up and care recommendations were made: Dressing: Abran to ulcerative bed, Adaptic and 3M compression wrap to the left lower extremity. Will continue compression stocking to right lower extremity Wash: Do not get wet. Use cast bag when showering to maintain compliance. Tissue growth optimization: Abran Offload: 3M compression wrap Vascular: Does have history of positive venous insufficiency/reflux. Will seek vascular assistance for potential procedure. Edema: 3M compression wrap and elevation of the lower extremities Infection: No signs of infection Pain: May take [id number] Tylenol Extra Strength for discomfort Host factors: Chronic venous insufficiency, chronic lower extremity edema, prolonged standing/activity, advanced age complicate healing. I answered all the patient's questions. To return to the wound healing center in 1 week or call sooner if the patient has any questions or concerns.
--- NOTE | 2025-03-17 12:56 | WC ---
PHOTO 03/16/25 LEFT MEDIAL ANKLE
== END 2025-03-18 23:59 | disposition home or self-care (01) ==
LOC: WC 09:00
PROVIDERS: PCP Family Medicine; Referring Provider Family Medicine; Visit Provider Student in an Organized Health Care Education/Training Program
DX: I87.2 Venous insufficiency (chronic) (peripheral) (principal); L98.492 Non-pressure chronic ulcer of skin of other sites with fat layer exposed; L97.222 Non-pressure chronic ulcer of left calf with fat layer exposed; Z87.891 Personal history of nicotine dependence; Z86.16 Personal history of COVID-19; Z86.718 Personal history of other venous thrombosis and embolism; R60.0 Localized edema; G47.33 Obstructive sleep apnea (adult) (pediatric); K21.9 Gastro-esophageal reflux disease without esophagitis; Z90.49 Acquired absence of other specified parts of digestive tract
CPT/HCPCS: 11042; 29581; 93971; 99213; G0463

== ENCOUNTER 2025-03-28 10:11 | Outpatient (CLI) | payer MEDICARE, OTHER, SELFPAY ==
[2025-03-28 10:23] VITALS: BP 128/55; PULSE 57; RESP 16; TEMP 36.1; O2SAT 99
[2025-03-28] MEDS: Benralizumab 30 MG/ML Syringe SC (10:26)
== END 2025-03-28 23:59 | disposition home or self-care (01) ==
LOC: MEDOUTP 10:12
PROVIDERS: PCP Family Medicine; Referring Provider Nurse Practitioner Acute Care; Visit Provider Nurse Practitioner Acute Care
DX: J45.50 Severe persistent asthma, uncomplicated (principal)
CPT/HCPCS: 96372; J0517

== ENCOUNTER 2025-04-12 15:00 | Outpatient (RCR) | payer MEDICARE, OTHER, SELFPAY ==
[2025-03-19 00:27] VITALS: BP 106/47; PULSE 71; RESP 16; TEMP 35.6
[2025-03-20 10:42] VITALS: BP 127/87; PULSE 72; RESP 16; TEMP 36.1
[2025-03-23 08:44] VITALS: BP 141/73; PULSE 69; RESP 18; TEMP 36.2
--- NOTE | 2025-03-23 12:42 | PCM.WC.PN ---
History of Present Illness Date of Service: 03/23/25 Chief Complaint: Left medial ankle wound History of Wound: The patient is seen today as a courtesy visit for Dr. Merrill Burns, the patient's regular Wound Center provider. The patient's medical history is as recently documented below. Patient is a 79-year-old male who presents to the wound care center with recurring left lower extremity medial ankle wound. He has PMHx of recurring left lower extremity ulceration secondary to chronic venous insufficiency, history of DVT, obesity, JOSHUA, iron deficient anemia, delayed wound healing, and asthma. He states that he does have compression stockings and continues to wear them. He had been following in the wound care center for a deep ulceration to the medial aspect of the left lower extremity overlying the neurovascular bundle. He did go on to heal this ulceration as of 12/31/[address] Mckee for venogram. He has continued wearing compression stockings however states that while in the shower he did notice a scab of the left medial ankle and after showering applied antibiotic ointment and Band-Aid which later then the scab became soft and opened a small wound. He states that he did see his PCP who did obtain cultures and placed him on oral antibiotic. He was then referred to the wound care center for further follow-up. He denies any further trauma to the site. States that the specific site is recurrent with breakdown of skin. Denies N/V/F/chills. No further complaints. Subjective Subjective This is a 80-year-old male who returns to the wound care center for continued follow-up of a chronic venous stasis/insufficiency ulceration at the medial aspect of the left lower extremity. He reports keeping dressing clean, dry, and intact with his 3M compression wrap to the left lower extremity. He did return for dressing change as nurse visit this past Thursday. His swelling appears to be well-controlled with compression wrap. He is awaiting vascular procedure with Dr. Mckee later this month. He denies constitutional symptoms. Denies further complaints. Objective Data Objective Data Vital Signs: Vital Signs Temp Pulse Resp BP O2 Del Method 97.2 F L 69 18 141/73 H Room Air 03/23/25 08:44 03/23/25 08:44 03/23/25 08:44 03/23/25 08:44 03/20/25 10:42 Oxygen Delivery Method Room Air Physical Exam Const alert, oriented x3 and no apparent distress General Appearance: cooperative HEENT normocephalic Eyes Eyes Narrative: Wears glasses General Eye: normal appearance of both eyes Lymph Lymphatic: no lymphadenopathy noted and no lymphedema noted Resp normal respiratory effort Cardio regular rate and regular rhythm Extremity no calf tenderness Extremity Narrative: Left lower extremity: Vascular: DP and PT pulses weakly palpable. Capillary fill time to digits is 5 seconds. Normal temperature gradient. There is absent hair growth to digits noted. Dermatological: There is a full-thickness ulceration noted to the medial aspect of the lower extremity/ankle with mixed fibrogranular layer. Negative Stemmer sign left foot. There is evidence of stasis dermatitis with hyperpigmentation/hemosiderin deposition/staining of skin left lower extremity. There are varicosities noted of the lower extremity with mild lower extremity edema. There is no erythema or rubor of the left lower extremity. Musculoskeletal: Muscle strength 5 of 5 age-appropriate. There is decreased range of motion of the ankle joint dorsiflexion with knee extended without pain or crepitus. Decreased range of motion of the STJ, MTJ, and first MTPJ without pain or crepitus. There is pain to palpation of the left calf today with positive Gómez sign and Homans' sign. Skin no rashes or lesions noted General Skin Exam: venous stasis and dermatitis Neuro moves all extremities Debridement Note Debridement Note Wound debrided: Left medial ankle Laterality: Left Wound Grade/Stage: Cisneros stage I Type of Debridement: Excisional debridement Anesthesia Used: 5% Lidocaine Gel Depth: Down to and including healthy tissue and in the subcutaneous layer Percentage of wound debrided: 100 Instrument Used: 5mm curette Tissue Removed: Fibrous, devitalized subcutaneous, biofilm, slough Severity: Fat Layer Exposed Amount of bleeding with debridement: Mild Bleeding Controlled with: Compression and gauze Patient tolerated procedure: Patient tolerated procedure well Post-Debridement Measurements and Additional Note: Post-Debridement Measurements/Treatment WC - Nurse 1 - General Ulcer Assessment Start: 03/20/25 10:41 Freq: Status: Active Protocol: JIMMYT Activity Type Activity Date Activity User E-sign Co-sign Detail Recorded Client Recorded Date Recorded By Document 03/20/25 10:42 KW [id number] 03/20/25 10:56 KW Document 03/23/25 08:44 DL [id number] 03/23/25 08:50 DL 03/20/25 03/23/25 10:42 08:44 - Today's Visit Information Type of service Nurse-only Follow-up Visit Visit (Physician/ANIMAL CRUELTY 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 ) Arrival Mode Ambulatory Ambulatory Transfer Assistance None Patient Identification Verified (Name & Yes Yes ) Patient Requires Transmission-Based No Precautions Vital Signs Temperature (97.8 F-99.1 F) 97.0 F L 97.2 F L Temperature Source Temporal Temporal Pulse Rate (60-100) 72 69 Pulse Location Monitor Monitor Respiratory Rate (12-18) 16 18 Respiratory rate source Observation Observation Oxygen Delivery Method Room Air Blood Pressure (90/60-120/80) 127/87 H 141/73 H Blood Pressure Mean (mm Hg) 100 95 Source Monitor Monitor Position Semi-Fowlers Blood Pressure Location Left Arm History Since Last Visit- (Skip if this is Patient's initial visit) Have you changed medications since your No No last visit? Any new allergies or adverse reactions No No Had a fall/change in ADL's that may No No increase risk of falls Signs or symptoms of abuse and/or No No neglect since last visit Have you been in the hospital since your No No last visit? Has dressing in place as prescribed Yes Yes Has compression in place as prescribed Yes Yes Has offloadiing in place as prescribed N/A N/A Experienced any changes in pain level or No Yes management Left Footwear Regular Shoe Regular Shoe Right Footwear Regular Shoe Regular Shoe Pain Scale: 0-10 Numeric Is Patient Pain Free? Yes Yes - Nurse 1 - General Ulcer Measurement Start: 03/20/25 10:41 Freq: Status: Active Protocol: Activity Type Activity Date Activity User E-sign Co-sign Detail Recorded Client Recorded Date Recorded By Document 03/23/25 08:44 DL [id number] 03/23/25 08:50 DL 03/23/25 08:44 Wound Center Nurse 1 #1 L Med Ankle -Current Size (cm) - Length 2.5 -Current Size (cm) - Width 1 -Current Size (cm) - Depth 0.1 -Total Square Cm 2.5 -Photo Taken Yes -Exudate Amt Small -Exudate Type Serosanguineous -Wound Margin Indistinct, Non -Visible -Granulation Amt Small (1-33%) -Granulation Quality [place]ola -Necrosis Amt Medium (34-66%) -Necrotic Tissue Type Adherent Slough -Structure Exposed N/A -Texture (Megan-wound Skin Appearance) Scarring -Moisture (Megan-wound Skin Appearance) No Abnormality -Color (Megan-wound Skin Appearance) No Abnormality -Temperature (Megan-wound Skin No Abnormality Appearance) (Pt Warm) -Tenderness on Palpation (Megan-wound No Skin Appearance) -Ulcer Cleansing Soap and Water -Foul Odor after Cleansing No -Anesthetic Used 5% Lidocaine Gel Left Calf (cm) 32.5 Left Ankle (cm) 21.5 WC - Nurse 2 - General Ulcer CM Notes Start: 03/20/25 10:41 Freq: Status: Active Protocol: Activity Type Activity Date Activity User E-sign Co-sign Detail Recorded Client Recorded Date Recorded By Document 03/23/25 09:09 [facility] [id number] 03/23/25 09:19 [facility] 03/23/25 09:09 Wound Center Nurse 2 #1 L Med Ankle -Time 09:09 -Correct Patient Yes -Correct Side, Site, Position Yes -Correct Procedure Yes -Procedure Performed Yes -Type of Procedure Debridement -Clinical Debridement Subcutaneous -Tissue Removed Subcutaneous -Post Debridement (cm) - Length 2.4 -Post Debridement (cm) - Width 0.7 -Post Debridement (cm) - Depth 0.1 -Total Square (Post) (cm) 1.68 -Area of Debridement (cm) - Length 2.4 -Area of Debridement (cm) - Width 0.7 -Total Square (Area) (cm) 1.68 -Tunneling No -Undermining/Tunneling No -Circular Undermining No -Wound/Ulcer Outcome Not Healed -Ulcer Cleansing Rinsed/ Irrigated with Saline -Foul Odor after Cleansing No -Bioengineered Tissue No -Bleeding Controlled with Pressure -Treatment Response Procedure Tolerated Well -Debridement - Subq, 1st 20sq cm Yes Pain Scale: 0-10 Numeric Is Patient Pain Free? Yes - Nurse 3 - General Ulcer D/C NN Start: 03/20/25 10:41 Freq: Status: Active Protocol: Activity Type Activity Date Activity User E-sign Co-sign Detail Recorded Client Recorded Date Recorded By Document 03/20/25 10:42 KW [id number] 03/20/25 10:56 KW Document 03/23/25 09:30 DL [id number] 03/23/25 09:31 DL 03/20/25 03/23/25 10:42 09:30 Pain Scale: 0-10 Numeric Is Patient Pain Free? Yes Yes Wound Care Center Nurse 3 #1 L Med Ankle -Ulcer Cleansing Soap and Water Rinsed/ Irrigated with Saline -Foul Odor after Cleansing No -Primary Dressing Applied NonAdherent Contact Layer -Other Dressing ricci with moist ricci adaptic -Primary Dressing Covered/Secured with Dry Gauze Dry Gauze -Other Covering padding to ant ankle -Wound Comment(s) pad around top of foot for comfort LLE -Multi-Layered Wrap Application Multi-Layer Multi-Layer Comp - Left ($) Comp - Left ($) -Multi-Layer Compression Left (Qty 1 1 applied) Treatment Response Procedure Tolerated Well WC - Visit Discharge Discharge Condition Stable Ambulatory Status Ambulatory Transportation Private Auto Assessment/Plan Assessment/Plan (1) Non-pressure chronic ulcer of left calf with fat layer exposed: CODE(S): L97.222 - Non-pressure chronic ulcer of left calf with fat layer exposed (2) Venous insufficiency (chronic) (peripheral): CODE(S): I87.2 - Venous insufficiency (chronic) (peripheral) (3) 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: CODE(S): I83.003 - Varicose veins of unspecified lower extremity with ulcer of ankle; L97.302 - Non-pressure chronic ulcer of unspecified ankle with fat layer exposed QUALIFIERS: Varicose vein presence: with varicose veins Laterality: left Qualified Code(s): I83.023 - Varicose veins of left lower extremity with ulcer of ankle; L97.322 - Non-pressure chronic ulcer of left ankle with fat layer exposed (4) Bilateral lower extremity edema: CODE(S): R60.0 - Localized edema PLAN: Plan Patient seen and evaluated Predebridement measurement 2.3 cm x 0.6 cm x 0.1 cm Ulceration site underwent debridement as noted in the clinical panel above. Postdebridement measurement 2.4 cm x 0.7 cm x 0.1 cm. Ricci was applied to the wound bed followed by Adaptic and 3M compression wrap to left lower extremity. He was instructed to keep dressings clean, dry, and intact to the left lower extremity. There is reduction in size of ulceration versus previous visit with Adaptic aiding in discouraging skin tears upon dressing changes. Edema remains well-controlled with current compression therapy. Stat Doppler for 02/16/2025 was negative for DVT. He did undergo repeat venous study 03/14/25 and will undergo venous ablation on April 13. He was again instructed on continued elevation of the lower extremities to aid in edema control. Following healing of ulcerative site he will return to compression stockings however this time we will increase from 20 to 30 mmHg to 30 to 40 mmHg versus application of juxta lite compression. Juxta lite compression wrap was applied for 02/16/2025, awaiting approval. He is following with Dr. Mckee for procedure to aid in his venous insufficiency. Procedure scheduled for 04/13/25. Discussed continued diet to aid in healing with adequate protein intake. Discussed signs and symptoms of infection. Discussed if he notices any increasing redness around the ulcerative site that is moved up the leg, purulent drainage from the ulcerative site, increasing foul odor from the ulcerative site, or if he develops fever greater than 101 degree accompanied by nausea, vomiting, chills of these are signs of a progressing infection and he should report to the ED for IV antibiotics and further evaluation. He is understanding of this today. The following work up and care recommendations were made: Dressing: Ricci to ulcerative bed, Adaptic and 3M compression wrap to the left lower extremity. Will continue compression stocking to right lower extremity Wash: Do not get wet. Use cast bag when showering to maintain compliance. Tissue growth optimization: Ricci Offload: 3M compression wrap Vascular: Does have history of positive venous insufficiency/reflux. Will seek vascular assistance for potential procedure. Edema: 3M compression wrap and elevation of the lower extremities Infection: No signs of infection Pain: May take [id number] Tylenol Extra Strength for discomfort Host factors: Chronic venous insufficiency, chronic lower extremity edema, prolonged standing/activity, advanced age complicate healing. I answered all the patient's questions. To return to the wound healing center in 1 week or call sooner if the patient has any questions or concerns.
--- NOTE | 2025-03-24 08:33 | WC ---
PHOTO 03/23/25 LEFT [facility]
--- NOTE | 2025-03-24 08:34 | WC ---
PHOTO 03/23/25 LEFT [facility]
[2025-03-27 11:02] VITALS: BP 120/64; PULSE 68; RESP 18; TEMP 35.9
[2025-03-30 08:46] VITALS: BP 131/72; PULSE 66; RESP 18; TEMP 35.6
--- NOTE | 2025-03-30 09:28 | PN.PCM_ITS ---
History of Present Illness Date of Service: 03/30/25 Chief Complaint: Left medial ankle wound History of Wound: The patient is seen today as a courtesy visit for Dr. Merrill Burns, the patient's regular Wound Center provider. The patient's medical history is as recently documented below. Patient is a 79-year-old male who presents to the wound care center with recurring left lower extremity medial ankle wound. He has PMHx of recurring left lower extremity ulceration secondary to chronic venous insufficiency, history of DVT, obesity, JOSHUA, iron deficient anemia, delayed wound healing, and asthma. He states that he does have compression stockings and continues to wear them. He had been following in the wound care center for a deep ulceration to the medial aspect of the left lower extremity overlying the neurovascular bundle. He did go on to heal this ulceration as of 12/31/[address] Mckee for venogram. He has continued wearing compression stockings however states that while in the shower he did notice a scab of the left medial ankle and after showering applied antibiotic ointment and Band-Aid which later then the scab became soft and opened a small wound. He states that he did see his PCP who did obtain cultures and placed him on oral antibiotic. He was then referred to the wound care center for further follow-up. He denies any further trauma to the site. States that the specific site is recurrent with breakdown of skin. Denies N/V/F/chills. No further complaints. Subjective Subjective This is a 80-year-old male who returns to the wound care center for continued follow-up of a chronic venous stasis/insufficiency ulceration at the medial aspect of the left lower extremity. He reports keeping dressing clean, dry, and intact with his 3M compression wrap to the left lower extremity. Continues to tolerate this well. He did return for dressing change as nurse visit this past Thursday. His swelling remains well-controlled with current compression wrap. He is awaiting vascular procedure with Dr. Mckee in 2 weeks. He denies constitutional symptoms. Denies further complaints. Objective Data Objective Data Vital Signs: Vital Signs Temp Pulse Resp BP O2 Del Method 96.1 F L 66 18 131/72 H Room Air 03/30/25 08:46 03/30/25 08:46 03/30/25 08:46 03/30/25 08:46 03/30/25 08:46 Oxygen Delivery Method Room Air Physical Exam Const alert, oriented x3 and no apparent distress General Appearance: cooperative HEENT normocephalic Eyes Eyes Narrative: Wears glasses General Eye: normal appearance of both eyes Lymph Lymphatic: no lymphadenopathy noted and no lymphedema noted Resp normal respiratory effort Cardio regular rate and regular rhythm Extremity no calf tenderness Extremity Narrative: Left lower extremity: Vascular: DP and PT pulses weakly palpable. Capillary fill time to digits is 5 seconds. Normal temperature gradient. There is absent hair growth to digits noted. Dermatological: There is a full-thickness ulceration noted to the medial aspect of the lower extremity/ankle with mixed fibrogranular layer. Negative Stemmer sign left foot. There is evidence of stasis dermatitis with hyperpigmentation/hemosiderin deposition/staining of skin left lower extremity. There are varicosities noted of the lower extremity with mild lower extremity edema. There is no erythema or rubor of the left lower extremity. Musculoskeletal: Muscle strength 5 of 5 age-appropriate. There is decreased range of motion of the ankle joint dorsiflexion with knee extended without pain or crepitus. Decreased range of motion of the STJ, MTJ, and first MTPJ without pain or crepitus. There is pain to palpation of the left calf today with positive Gómez sign and Homans' sign. Skin no rashes or lesions noted General Skin Exam: venous stasis and dermatitis Neuro moves all extremities Debridement Note Debridement Note Wound debrided: Left lower extremity Laterality: Left Wound Grade/Stage: Cisneros stage I Type of Debridement: Excisional debridement Anesthesia Used: 5% Lidocaine Gel Depth: Down to and including healthy tissue and in the subcutaneous layer Percentage of wound debrided: 100 Instrument Used: 5mm curette Tissue Removed: Fibrous, devitalized subcutaneous, biofilm, slough Severity: Fat Layer Exposed Amount of bleeding with debridement: Mild Bleeding Controlled with: Compression and gauze Patient tolerated procedure: Patient tolerated procedure well Post-Debridement Measurements and Additional Note: Post-Debridement Measurements/Treatment WC - Nurse 1 - General Ulcer Assessment Start: 03/20/25 10:41 Freq: Status: Active Protocol: ANAYA Activity Type Activity Date Activity User E-sign Co-sign Detail Recorded Client Recorded Date Recorded By Document 03/20/25 10:42 KW [id number] 03/20/25 10:56 KW Document 03/23/25 08:44 DL [id number] 03/23/25 08:50 DL Document 03/27/25 11:02 JF [id number] 03/27/25 11:06 JF Document 03/30/25 08:46 KW [id number] 03/30/25 08:53 KW 03/20/25 03/23/25 03/27/25 10:42 08:44 11:02 - Today's Visit Information Type of service Nurse-only Follow-up Visit Follow-up Visit Visit (Physician/SHEET METAL LAY OUT WORKER (Physician/SHEET METAL LAY OUT WORKER ) ) Arrival Mode Ambulatory Ambulatory Ambulatory Transfer Assistance None Patient Identification Verified (Name & Yes Yes Yes ) Patient Requires Transmission-Based No No Precautions Vital Signs Temperature (97.8 F-99.1 F) 97.0 F L 97.2 F L 96.7 F L Temperature Source Temporal Temporal Temporal Pulse Rate (60-100) 72 69 68 Pulse Location Monitor Monitor Monitor Respiratory Rate (12-18) 16 18 18 Respiratory rate source Observation Observation Observation Oxygen Delivery Method Room Air Blood Pressure (90/60-120/80) 127/87 H 141/73 H 120/64 Blood Pressure Mean (mm Hg) 100 95 82 Source Monitor Monitor Monitor Position Semi-Fowlers Semi-Fowlers Blood Pressure Location Left Arm Right Arm History Since Last Visit- (Skip if this is Patient's initial visit) Have you changed medications since your No No last visit? Any new allergies or adverse reactions No No Had a fall/change in ADL's that may No No increase risk of falls Signs or symptoms of abuse and/or No No neglect since last visit Have you been in the hospital since your No No last visit? Has dressing in place as prescribed Yes Yes Has compression in place as prescribed Yes Yes Has offloadiing in place as prescribed N/A N/A Experienced any changes in pain level or No Yes management Left Footwear Regular Shoe Regular Shoe Regular Shoe Right Footwear Regular Shoe Regular Shoe Regular Shoe Pain Scale: 0-10 Numeric Is Patient Pain Free? Yes Yes Yes 03/30/25 08:46 - Today's Visit Information Type of service Follow-up Visit (Physician/SHEET MET[employer] L[employer] OUT WORKER ) Arrival Mode Ambulatory Transfer Assistance Patient Identification Verified (Name & Yes ) Patient Requires Transmission-Based Precautions Vital Signs Temperature (97.8 F-99.1 F) 96.1 F L Temperature Source Temporal Pulse Rate (60-100) 66 Pulse Location Monitor Respiratory Rate (12-18) 18 Respiratory rate source Observation Oxygen Delivery Method Room Air Blood Pressure (90/60-120/80) 131/72 H Blood Pressure Mean (mm Hg) 91 Source Monitor Position Semi-Fowlers Blood Pressure Location Left Arm History Since Last Visit- (Skip if this is Patient's initial visit) Have you changed medications since your No last visit? Any new allergies or adverse reactions No Had a fall/change in ADL's that may No increase risk of falls Signs or symptoms of abuse and/or No neglect since last visit Have you been in the hospital since your No last visit? Has dressing in place as prescribed Yes Has compression in place as prescribed Yes Has offloadiing in place as prescribed N/A Experienced any changes in pain level or No management Left Footwear Regular Shoe Right Footwear Regular Shoe Pain Scale: 0-10 Numeric Is Patient Pain Free? Yes WC - Nurse 1 - General Ulcer Measurement Start: 03/20/25 10:41 Freq: Status: Active Protocol: Activity Type Activity Date Activity User E-sign Co-sign Detail Recorded Client Recorded Date Recorded By Document 03/23/25 08:44 DL [id number] 03/23/25 08:50 DL Document 03/30/25 08:46 KW [id number] 03/30/25 08:53 KW 03/23/25 03/30/25 08:44 08:46 Wound Center Nurse 1 #1 L Med Ankle -Current Size (cm) - Length 2.5 1 -Current Size (cm) - Width 1 0.5 -Current Size (cm) - Depth 0.1 0.1 -Total Square Cm 2.5 0.5 -Date of Last Picture (Recall this 03/30/25 field) -Photo Taken Yes -Exudate Amt Small Medium -Exudate Type Serosanguineous Serosanguineous -Wound Margin Indistinct, Non Distinct, -Visible Outline Attached -Granulation Amt Small (1-33%) Large (67-100%) -Granulation Quality Opelika Opelika -Necrosis Amt Medium (34-66%) Small (1-33%) -Necrotic Tissue Type Adherent Slough Adherent Slough -Structure Exposed N/A -Texture (Megan-wound Skin Appearance) Scarring No Abnormality -Moisture (Megan-wound Skin Appearance) No Abnormality Assessed,Dry/ Scaly -Color (Megan-wound Skin Appearance) No Abnormality Assessed, Hemosiderin Staining -Temperature (Megan-wound Skin No Abnormality No Abnormality Appearance) (Pt Warm) (Pt Warm) -Tenderness on Palpation (Megan-wound No No Skin Appearance) -Ulcer Cleansing Soap and Water Soap and Water -Foul Odor after Cleansing No -Anesthetic Used 5% Lidocaine 5% Lidocaine Gel Gel Left Calf (cm) 32.5 34.5 Left Ankle (cm) 21.5 21 - Nurse 2 - General Ulcer CM Notes Start: 03/20/25 10:41 Freq: Status: Active Protocol: Activity Type Activity Date Activity User E-sign Co-sign Detail Recorded Client Recorded Date Recorded By Document 03/23/25 09:09 [facility] [id number] 03/23/25 09:19 [facility] Document 03/30/25 09:23 [facility] [id number] 03/30/25 09:26 [facility] 03/23/25 03/30/25 09:09 09:23 Wound Center Nurse 2 #1 L Med Ankle -Time 09:09 09:23 -Correct Patient Yes Yes -Correct Side, Site, Position Yes Yes -Correct Procedure Yes Yes -Procedure Performed Yes Yes -Type of Procedure Debridement Debridement -Clinical Debridement Subcutaneous Subcutaneous -Tissue Removed Subcutaneous Subcutaneous -Post Debridement (cm) - Length 2.4 1.6 -Post Debridement (cm) - Width 0.7 0.9 -Post Debridement (cm) - Depth 0.1 0.1 -Total Square (Post) (cm) 1.68 1.44 -Area of Debridement (cm) - Length 2.4 1.6 -Area of Debridement (cm) - Width 0.7 0.9 -Total Square (Area) (cm) 1.68 1.44 -Tunneling No No -Undermining/Tunneling No No -Circular Undermining No No -Wound/Ulcer Outcome Not Healed Not Healed -Ulcer Cleansing Rinsed/ Rinsed/ Irrigated with Irrigated with Saline Saline -Foul Odor after Cleansing No No -Bioengineered Tissue No No -Bleeding Controlled with Pressure Pressure -Treatment Response Procedure Procedure Tolerated Well Tolerated Well -Debridement - Subq, 1st 20sq cm Yes Yes Pain Scale: 0-10 Numeric Is Patient Pain Free? Yes Yes - Nurse 3 - General Ulcer D/C NN Start: 06/02/25 10:41 Freq: Status: Active Protocol: Activity Type Activity Date Activity User E-sign Co-sign Detail Recorded Client Recorded Date Recorded By Document 03/20/25 10:42 KW [id number] 03/20/25 10:56 KW Document 03/23/25 09:30 DL [id number] 03/23/25 09:31 DL Document 03/27/25 11:02 JF [id number] 03/27/25 11:06 JF 03/20/25 03/23/25 03/27/25 10:42 09:30 11:02 Pain Scale: 0-10 Numeric Is Patient Pain Free? Yes Yes Yes Wound Care Center Nurse 3 #1 L Med Ankle -Ulcer Cleansing Soap and Water Rinsed/ Irrigated with Saline -Foul Odor after Cleansing No -Primary Dressing Applied NonAdherent Contact Layer -Other Dressing ricci with moist ricci adaptic -Primary Dressing Covered/Secured with Dry Gauze Dry Gauze -Other Covering padding to ant ankle -Wound Comment(s) pad around top of foot for comfort LLE -Lotion applied to leg before Yes compression wrap -Multi-Layered Wrap Application Multi-Layer Multi-Layer Multi-Layer Comp - Left ($) Comp - Left ($) Comp - Left ($) -Multi-Layer Compression Left (Qty 1 1 1 applied) Treatment Response Procedure Tolerated Well WC - Visit Discharge Discharge Condition Stable Stable Ambulatory Status Ambulatory Ambulatory Transportation Private Auto Private Auto Medication Reconcilliation completed & Yes provided to patient/care provider Clinical Summary of Care Provided Yes Assessment/Plan Assessment/Plan (1) Non-pressure chronic ulcer of left calf with fat layer exposed: CODE(S): L97.222 - Non-pressure chronic ulcer of left calf with fat layer exposed (2) Venous insufficiency (chronic) (peripheral): CODE(S): I87.2 - Venous insufficiency (chronic) (peripheral) (3) 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: CODE(S): I83.003 - Varicose veins of unspecified lower extremity with ulcer of ankle; L97.302 - Non-pressure chronic ulcer of unspecified ankle with fat layer exposed QUALIFIERS: Varicose vein presence: with varicose veins Laterality: left Qualified Code(s): I83.023 - Varicose veins of left lower extremity with ulcer of ankle; L97.322 - Non-pressure chronic ulcer of left ankle with fat layer exposed (4) Bilateral lower extremity edema: CODE(S): R60.0 - Localized edema PLAN: Plan Patient seen and evaluated Predebridement measurement 1.5 cm x 0.8 cm x 0.1 cm Ulceration site underwent debridement as noted in the clinical panel above. Postdebridement measurement 1.6 cm x 0.9 cm x 0.1 cm. Ricci was applied to the wound bed followed by Adaptic and 3M compression wrap to left lower extremity. He was instructed to keep dressings clean, dry, and intact to the left lower extremity. There is continued reduction in size of ulceration versus previous visit with Adaptic aiding in discouraging skin tears upon dressing changes. Edema remains well-controlled with current compression therapy. Stat Doppler for 02/16/2025 was negative for DVT. He did undergo repeat venous study 03/14/25 and will undergo venous ablation on April 13. He was again instructed on continued elevation of the lower extremities to aid in edema control. Following healing of ulcerative site he will return to compression stockings however this time we will increase from 20 to 30 mmHg to 30 to 40 mmHg versus application of juxta lite compression. Juxta lite compression wrap was applied for 02/16/2025, awaiting approval. He is following with Dr. Mckee for procedure to aid in his venous insufficiency. Procedure scheduled for 04/13/25. Discussed continued diet to aid in healing with adequate protein intake. Discussed signs and symptoms of infection. Discussed if he notices any increasing redness around the ulcerative site that is moved up the leg, purulent drainage from the ulcerative site, increasing foul odor from the ulcerative site, or if he develops fever greater than 101 degree accompanied by nausea, vomiting, chills of these are signs of a progressing infection and he should report to the ED for IV antibiotics and further evaluation. He is understanding of this today. The following work up and care recommendations were made: Dressing: Ricci to ulcerative bed, Adaptic and 3M compression wrap to the left lower extremity. Will continue compression stocking to right lower extremity Wash: Do not get wet. Use cast bag when showering to maintain compliance. Tissue growth optimization: Ricci Offload: 3M compression wrap Vascular: Does have history of positive venous insufficiency/reflux. Will seek vascular assistance for potential procedure. Edema: 3M compression wrap and elevation of the lower extremities Infection: No signs of infection Pain: May take [id number] Tylenol Extra Strength for discomfort Host factors: Chronic venous insufficiency, chronic lower extremity edema, prolonged standing/activity, advanced age complicate healing. I answered all the patient's questions. To return to the wound healing center in 1 week or call sooner if the patient has any questions or concerns.
--- NOTE | 2025-03-31 08:40 | WC ---
PHOTO 03/30/25 LEFT [facility]
[2025-04-03 09:27] VITALS: BP 123/59; PULSE 64; RESP 18; TEMP 36.2
[2025-04-06 08:52] VITALS: BP 129/56; PULSE 68; RESP 16; TEMP 36.3
--- NOTE | 2025-04-06 09:20 | PCM.WC.PN ---
History of Present Illness Date of Service: 04/06/25 Chief Complaint: Left medial ankle wound History of Wound: The patient is seen today as a courtesy visit for Dr. Merrill Burns, the patient's regular Wound Center provider. The patient's medical history is as recently documented below. Patient is a 79-year-old male who presents to the wound care center with recurring left lower extremity medial ankle wound. He has PMHx of recurring left lower extremity ulceration secondary to chronic venous insufficiency, history of DVT, obesity, JOSHUA, iron deficient anemia, delayed wound healing, and asthma. He states that he does have compression stockings and continues to wear them. He had been following in the wound care center for a deep ulceration to the medial aspect of the left lower extremity overlying the neurovascular bundle. He did go on to heal this ulceration as of 12/31/[address] Mckee for venogram. He has continued wearing compression stockings however states that while in the shower he did notice a scab of the left medial ankle and after showering applied antibiotic ointment and Band-Aid which later then the scab became soft and opened a small wound. He states that he did see his PCP who did obtain cultures and placed him on oral antibiotic. He was then referred to the wound care center for further follow-up. He denies any further trauma to the site. States that the specific site is recurrent with breakdown of skin. Denies N/V/F/chills. No further complaints. Subjective Subjective This is a 80-year-old male who returns to the wound care center for continued follow-up of a chronic venous stasis/insufficiency ulceration at the medial aspect of the left lower extremity. He reports keeping dressing clean, dry, and intact with his 3M compression wrap to the left lower extremity. Continues to tolerate this well. He did return for dressing change as nurse visit this past Thursday. His swelling remains well-controlled with current compression wrap. He is awaiting vascular procedure with Dr. Mckee next week. Reports he will have to have wrap removed day before procedure. He denies constitutional symptoms. Denies further complaints. Objective Data Objective Data Vital Signs: Vital Signs Temp Pulse Resp BP O2 Del Method 97.3 F L 68 16 129/56 H Room Air 04/06/25 08:52 04/06/25 08:52 04/06/25 08:52 04/06/25 08:52 03/30/25 08:46 Oxygen Delivery Method Room Air Physical Exam Const alert, oriented x3 and no apparent distress General Appearance: cooperative HEENT normocephalic Eyes Eyes Narrative: Wears glasses General Eye: normal appearance of both eyes Lymph Lymphatic: no lymphadenopathy noted and no lymphedema noted Resp normal respiratory effort Cardio regular rate and regular rhythm Extremity no calf tenderness Extremity Narrative: Left lower extremity: Vascular: DP and PT pulses weakly palpable. Capillary fill time to digits is 5 seconds. Normal temperature gradient. There is absent hair growth to digits noted. Dermatological: There is a full-thickness ulceration noted to the medial aspect of the lower extremity/ankle with mixed fibrogranular layer. Negative Stemmer sign left foot. There is evidence of stasis dermatitis with hyperpigmentation/hemosiderin deposition/staining of skin left lower extremity. There are varicosities noted of the lower extremity with mild lower extremity edema. There is no erythema or rubor of the left lower extremity. Musculoskeletal: Muscle strength 5 of 5 age-appropriate. There is decreased range of motion of the ankle joint dorsiflexion with knee extended without pain or crepitus. Decreased range of motion of the STJ, MTJ, and first MTPJ without pain or crepitus. There is pain to palpation of the left calf today with positive Gómez sign and Homans' sign. Skin no rashes or lesions noted General Skin Exam: venous stasis and dermatitis Neuro moves all extremities Debridement Note Debridement Note Wound debrided: Left medial ankle Laterality: Left Wound Grade/Stage: Cisneros stage I Type of Debridement: Excisional debridement Anesthesia Used: 5% Lidocaine Gel Depth: Down to and including healthy tissue and in the subcutaneous layer Percentage of wound debrided: 100 Instrument Used: #15 blade Tissue Removed: Fibrous, devitalized subcutaneous, biofilm, slough Severity: Fat Layer Exposed Amount of bleeding with debridement: Mild Bleeding Controlled with: Compression and gauze Patient tolerated procedure: Patient tolerated procedure well Post-Debridement Measurements and Additional Note: Post-Debridement Measurements/Treatment WC - Nurse 1 - General Ulcer Assessment Start: 03/20/25 10:41 Freq: Status: Active Protocol: ANAYA Activity Type Activity Date Activity User E-sign Co-sign Detail Recorded Client Recorded Date Recorded By Document 03/20/25 10:42 KW [id number] 03/20/25 10:56 KW Document 03/23/25 08:44 DL [id number] 03/23/25 08:50 DL Document 03/27/25 11:02 JF [id number] 03/27/25 11:06 JF Document 03/30/25 08:46 KW [id number] 03/30/25 08:53 KW Document 04/03/25 09:27 DL [id number] 04/03/25 09:39 DL Document 04/06/25 08:52 DL [id number] 04/06/25 08:59 DL 03/20/25 03/23/25 03/27/25 10:42 08:44 11:02 WC - Today's Visit Information Type of service Nurse-only Follow-up Visit Follow-up Visit Visit (Physician/CHEMICAL DEPENDENCY ATTENDANT (Physician/CHEMICAL DEPENDENCY ATTENDANT ) ) Arrival Mode Ambulatory Ambulatory Ambulatory Transfer Assistance None Patient Identification Verified (Name & Yes Yes Yes ) Patient Requires Transmission-Based No No Precautions Vital Signs Temperature (97.8 F-99.1 F) 97.0 F L 97.2 F L 96.7 F L Temperature Source Temporal Temporal Temporal Pulse Rate (60-100) 72 69 68 Pulse Location Monitor Monitor Monitor Respiratory Rate (12-18) 16 18 18 Respiratory rate source Observation Observation Observation Oxygen Delivery Method Room Air Blood Pressure (90/60-120/80) 127/87 H 141/73 H 120/64 Blood Pressure Mean (mm Hg) 100 95 82 Source Monitor Monitor Monitor Position Semi-Fowlers Semi-Fowlers Blood Pressure Location Left Arm Right Arm History Since Last Visit- (Skip if this is Patient's initial visit) Have you changed medications since your No No last visit? Any new allergies or adverse reactions No No Had a fall/change in ADL's that may No No increase risk of falls Signs or symptoms of abuse and/or No No neglect since last visit Have you been in the hospital since your No No last visit? Has dressing in place as prescribed Yes Yes Has compression in place as prescribed Yes Yes Has offloadiing in place as prescribed N/A N/A Experienced any changes in pain level or No Yes management Left Footwear Regular Shoe Regular Shoe Regular Shoe Right Footwear Regular Shoe Regular Shoe Regular Shoe Pain Scale: 0-10 Numeric Is Patient Pain Free? Yes Yes Yes 03/30/25 04/03/25 04/06/25 08:46 09:27 08:52 - Today's Visit Information Type of service Follow-up Visit Follow-up Visit Follow-up Visit (Physician/CHEMICAL DEPENDENCY ATTENDANT (Physician/CHEMICAL DEPENDENCY ATTENDANT (Physician/CHEMICAL DEPENDENCY ATTENDANT ) ) ) Arrival Mode Ambulatory Ambulatory Ambulatory Transfer Assistance None None Patient Identification Verified (Name & Yes Yes Yes ) Patient Requires Transmission-Based No No Precautions Vital Signs Temperature (97.8 F-99.1 F) 96.1 F L 97.1 F L 97.3 F L Temperature Source Temporal Temporal Temporal Pulse Rate (60-100) 66 64 68 Pulse Location Monitor Monitor Monitor Respiratory Rate (12-18) 18 18 16 Respiratory rate source Observation Observation Observation Oxygen Delivery Method Room Air Blood Pressure (90/60-120/80) 131/72 H 123/59 H 129/56 H Blood Pressure Mean (mm Hg) 91 80 80 Source Monitor Monitor Monitor Position Semi-Fowlers Blood Pressure Location Left Arm History Since Last Visit- (Skip if this is Patient's initial visit) Have you changed medications since your No No No last visit? Any new allergies or adverse reactions No No No Had a fall/change in ADL's that may No No No increase risk of falls Signs or symptoms of abuse and/or No No No neglect since last visit Have you been in the hospital since your No No No last visit? Has dressing in place as prescribed Yes Yes Yes Has compression in place as prescribed Yes Yes Yes Has offloadiing in place as prescribed N/A Yes Yes Experienced any changes in pain level or No No No management Left Footwear Regular Shoe Right Footwear Regular Shoe Pain Scale: 0-10 Numeric Is Patient Pain Free? Yes Yes Yes - Nurse 1 - General Ulcer Measurement Start: 03/20/25 10:41 Freq: Status: Active Protocol: Activity Type Activity Date Activity User E-sign Co-sign Detail Recorded Client Recorded Date Recorded By Document 03/23/25 08:44 DL [id number] 03/23/25 08:50 DL Document 03/30/25 08:46 KW [id number] 03/30/25 08:53 KW Document 04/03/25 09:27 DL [id number] 04/03/25 09:39 DL Document 04/06/25 08:52 DL [id number] 04/06/25 08:59 DL 06/05/25 06/12/25 06/16/25 08:44 08:46 09:27 Wound Center Nurse 1 #1 L Med Ankle -Current Size (cm) - Length 2.5 1 -Current Size (cm) - Width 1 0.5 -Current Size (cm) - Depth 0.1 0.1 -Total Square Cm 2.5 0.5 -Date of Last Picture (Recall this 03/30/25 field) -Photo Taken Yes -Exudate Amt Small Medium Medium -Exudate Type Serosanguineous Serosanguineous Serosanguineous -Wound Margin Indistinct, Non Distinct, Distinct, -Visible Outline Outline Attached Attached -Granulation Amt Small (1-33%) Large (67-100%) Small (1-33%) -Granulation Quality [place] -Necrosis Amt Medium (34-66%) Small (1-33%) Small (1-33%) -Necrotic Tissue Type Adherent Slough Adherent Slough Adherent Slough -Structure Exposed N/A N/A -Texture (Megan-wound Skin Appearance) Scarring No Abnormality Scarring -Moisture (Megan-wound Skin Appearance) No Abnormality Assessed,Dry/ No Abnormality Scaly -Color (Megan-wound Skin Appearance) No Abnormality Assessed, No Abnormality Hemosiderin Staining -Temperature (Megan-wound Skin No Abnormality No Abnormality No Abnormality Appearance) (Pt Warm) (Pt Warm) (Pt Warm) -Tenderness on Palpation (Megan-wound No No No Skin Appearance) -Ulcer Cleansing Soap and Water Soap and Water Soap and Water -Foul Odor after Cleansing No No -Anesthetic Used 5% Lidocaine 5% Lidocaine Gel Gel Left Calf (cm) 32.5 34.5 Left Ankle (cm) 21.5 21 04/06/25 08:52 Wound Center Nurse 1 #1 L Med Ankle -Current Size (cm) - Length 0.3 -Current Size (cm) - Width 0.3 -Current Size (cm) - Depth 0.1 -Total Square Cm 0.09 -Date of Last Picture (Recall this field) -Photo Taken Yes -Exudate Amt Small -Exudate Type -Wound Margin Thickened -Granulation Amt Small (1-33%) -Granulation Quality [place] -Necrosis Amt Medium (34-66%) -Necrotic Tissue Type Adherent Slough -Structure Exposed N/A -Texture (Megan-wound Skin Appearance) Scarring -Moisture (Megan-wound Skin Appearance) Dry/Scaly -Color (Megan-wound Skin Appearance) Hemosiderin Staining -Temperature (Megan-wound Skin No Abnormality Appearance) (Pt Warm) -Tenderness on Palpation (Megan-wound Skin Appearance) -Ulcer Cleansing Soap and Water -Foul Odor after Cleansing No -Anesthetic Used 5% Lidocaine Gel Left Calf (cm) Left Ankle (cm) WC - Nurse 2 - General Ulcer CM Notes Start: 03/20/25 10:41 Freq: Status: Active Protocol: Activity Type Activity Date Activity User E-sign Co-sign Detail Recorded Client Recorded Date Recorded By Document 03/23/25 09:09 Ex[place]le [id number] 03/23/25 09:19 Ex[place]le Document 03/30/25 09:23 Exajoule [id number] 03/30/25 09:26 BM Document 04/06/25 09:14 Exajoule [id number] 04/06/25 09:19 BMF 03/23/25 03/30/25 04/06/25 09:09 09:23 09:14 Wound Center Nurse 2 #1 L Med Ankle -Time 09:09 09:23 09:14 -Correct Patient Yes Yes Yes -Correct Side, Site, Position Yes Yes Yes -Correct Procedure Yes Yes Yes -Procedure Performed Yes Yes Yes -Type of Procedure Debridement Debridement Debridement -Clinical Debridement Subcutaneous Subcutaneous Subcutaneous -Tissue Removed Subcutaneous Subcutaneous Subcutaneous -Post Debridement (cm) - Length 2.4 1.6 1.8 -Post Debridement (cm) - Width 0.7 0.9 0.5 -Post Debridement (cm) - Depth 0.1 0.1 0.1 -Total Square (Post) (cm) 1.68 1.44 0.90 -Area of Debridement (cm) - Length 2.4 1.6 1.8 -Area of Debridement (cm) - Width 0.7 0.9 0.5 -Total Square (Area) (cm) 1.68 1.44 0.90 -Tunneling No No No -Undermining/Tunneling No No No -Circular Undermining No No No -Wound/Ulcer Outcome Not Healed Not Healed Not Healed -Ulcer Cleansing Rinsed/ Rinsed/ Rinsed/ Irrigated with Irrigated with Irrigated with Saline Saline Saline -Foul Odor after Cleansing No No No -Bioengineered Tissue No No No -Bleeding Controlled with Pressure Pressure Pressure -Treatment Response Procedure Procedure Procedure Tolerated Well Tolerated Well Tolerated Well -Debridement - Subq, 1st 20sq cm Yes Yes Yes Pain Scale: 0-10 Numeric Is Patient Pain Free? Yes Yes Yes - Nurse 3 - General Ulcer D/C NN Start: 03/20/25 10:41 Freq: Status: Active Protocol: Activity Type Activity Date Activity User E-sign Co-sign Detail Recorded Client Recorded Date Recorded By Document 03/20/25 10:42 KW [id number] 03/20/25 10:56 KW Document 03/23/25 09:30 DL [id number] 03/23/25 09:31 DL Document 03/27/25 11:02 JF [id number] 03/27/25 11:06 JF Document 03/30/25 09:42 KW [id number] 03/30/25 09:43 KW Document 04/03/25 09:27 DL [id number] 04/03/25 09:39 DL 03/20/25 03/23/25 03/27/25 10:42 09:30 11:02 Pain Scale: 0-10 Numeric Is Patient Pain Free? Yes Yes Yes Wound Care Center Nurse 3 #1 L Med Ankle -Ulcer Cleansing Soap and Water Rinsed/ Irrigated with Saline -Foul Odor after Cleansing No -Primary Dressing Applied NonAdherent Contact Layer -Other Dressing ricci with moist ricci adaptic -Primary Dressing Covered/Secured with Dry Gauze Dry Gauze -Other Covering padding to ant ankle -Wound Comment(s) pad around top of foot for comfort LLE -Lotion applied to leg before Yes compression wrap -Multi-Layered Wrap Application Multi-Layer Multi-Layer Multi-Layer Comp - Left ($) Comp - Left ($) Comp - Left ($) -Multi-Layer Compression Left (Qty 1 1 1 applied) Treatment Response Procedure Tolerated Well WC - Visit Discharge Discharge Condition Stable Stable Ambulatory Status Ambulatory Ambulatory Transportation Private Auto Private Auto Medication Reconcilliation completed & Yes provided to patient/care provider Clinical Summary of Care Provided Yes 03/30/25 04/03/25 09:42 09:27 Pain Scale: 0-10 Numeric Is Patient Pain Free? Yes Yes Wound Care Center Nurse 3 #1 L Med Ankle -Ulcer Cleansing Soap and Water -Foul Odor after Cleansing No -Primary Dressing Applied NonAdherent NonAdherent Contact Layer Contact Layer -Other Dressing pt own ricci Ricci topped with adaptic -Primary Dressing Covered/Secured with Dry Gauze Dry Gauze & Roll Gauze, Secured with Tape -Other Covering -Wound Comment(s) LLE -Lotion applied to leg before compression wrap -Multi-Layered Wrap Application Multi-Layer Multi-Layer Comp - Left ($) Comp - Left ($) -Multi-Layer Compression Left (Qty 1 1 applied) Treatment Response Procedure Tolerated Well WC - Visit Discharge Discharge Condition Stable Stable Ambulatory Status Ambulatory Ambulatory Transportation Private Auto Private Auto Medication Reconcilliation completed & No provided to patient/care provider Clinical Summary of Care Provided Yes Assessment/Plan Assessment/Plan (1) Non-pressure chronic ulcer of left calf with fat layer exposed: CODE(S): L97.222 - Non-pressure chronic ulcer of left calf with fat layer exposed (2) Venous insufficiency (chronic) (peripheral): CODE(S): I87.2 - Venous insufficiency (chronic) (peripheral) (3) 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: CODE(S): I83.003 - Varicose veins of unspecified lower extremity with ulcer of ankle; L97.302 - Non-pressure chronic ulcer of unspecified ankle with fat layer exposed QUALIFIERS: Varicose vein presence: with varicose veins Laterality: left Qualified Code(s): I83.023 - Varicose veins of left lower extremity with ulcer of ankle; L97.322 - Non-pressure chronic ulcer of left ankle with fat layer exposed (4) Bilateral lower extremity edema: CODE(S): R60.0 - Localized edema PLAN: Plan Patient seen and evaluated Predebridement measurement 1.7 cm x 0.4 cm x 0.1 cm Ulceration site underwent debridement as noted in the clinical panel above. Postdebridement measurement 1.8 cm x 0.5 cm x 0.1 cm. Ricci was applied to the wound bed followed by Adaptic and 3M compression wrap to left lower extremity. He was instructed to keep dressings clean, dry, and intact to the left lower extremity. There is continued reduction in size of ulceration versus previous visit with Adaptic aiding in discouraging skin tears upon dressing changes. Edema remains well-controlled with current compression therapy. Stat Doppler for 02/16/2025 was negative for DVT. He did undergo repeat venous study 03/14/25 and will undergo venous ablation on April 13. He was again instructed on continued elevation of the lower extremities to aid in edema control. Following healing of ulcerative site he will return to compression stockings however this time we will increase from 20 to 30 mmHg to 30 to 40 mmHg versus application of juxta lite compression. Juxta lite compression wrap was applied for 02/16/2025, awaiting approval. He is following with Dr. Mckee for procedure to aid in his venous insufficiency. Procedure scheduled for 04/13/25. He will have 3M wrap removed the day before procedure and will utilize Tubigrip compression for the remainder of the day. Discussed continued diet to aid in healing with adequate protein intake. Discussed signs and symptoms of infection. Discussed if he notices any increasing redness around the ulcerative site that is moved up the leg, purulent drainage from the ulcerative site, increasing foul odor from the ulcerative site, or if he develops fever greater than 101 degree accompanied by nausea, vomiting, chills of these are signs of a progressing infection and he should report to the ED for IV antibiotics and further evaluation. He is understanding of this today. The following work up and care recommendations were made: Dressing: Ricci to ulcerative bed, Adaptic and 3M compression wrap to the left lower extremity. Will continue compression stocking to right lower extremity Wash: Do not get wet. Use cast bag when showering to maintain compliance. Tissue growth optimization: Ricci Offload: 3M compression wrap Vascular: Does have history of positive venous insufficiency/reflux. Will seek vascular assistance for potential procedure. Edema: 3M compression wrap and elevation of the lower extremities Infection: No signs of infection Pain: May take [id number] Tylenol Extra Strength for discomfort Host factors: Chronic venous insufficiency, chronic lower extremity edema, prolonged standing/activity, advanced age complicate healing. Discussed returning next 04/12/2025 for removal of the 3M wrap prior to this procedure. He will then return with me the following week for continued wound care. I answered all the patient's questions. To return to the wound healing center in 2 weeks or call sooner if the patient has any questions or concerns.
--- NOTE | 2025-04-07 08:45 | WC ---
PHOTO 04/06/25 LEFT [facility] ANKLE
[2025-04-12 14:56] VITALS: BP 133/77; PULSE 68; RESP 18; TEMP 37.2
== END 2025-04-17 23:59 | disposition home or self-care (01) ==
LOC: WC 15:00
PROVIDERS: PCP Family Medicine; Referring Provider Family Medicine; Visit Provider Student in an Organized Health Care Education/Training Program
DX: I83.023 Varicose veins of left lower extremity with ulcer of ankle (principal); L97.922 Non-pressure chronic ulcer of unspecified part of left lower leg with fat layer exposed; I87.2 Venous insufficiency (chronic) (peripheral); Z86.718 Personal history of other venous thrombosis and embolism; R60.0 Localized edema
CPT/HCPCS: 11042; 29581; 99213; G0463

== ENCOUNTER → 2025-04-13 | Day surgery (SDC) | payer MEDICARE, OTHER, SELFPAY ==
--- OUTSIDE RECORDS SUMMARY | 2025-04-13 07:16 | XMS RPT_ITS | CCD ---
Author Organization [facility] CliniSywv Care Team Providers Care Hvac Controls Technician Name Role Phone JAREK ECHEVARRIA Unavailable Unavailable JAREK ECHEVARRIA Unavailable Unavailable PETER FINNEY Unavailable Unavailable SAVANA WES Unavailable Unavailable BICAKODAK, VERA Unavailable Unavailable JAREK ECHEVARRIA Unavailable Unavailable JAREK ECHEVARRIA Unavailable Unavailable JAREK ECHEVARRIA Unavailable Unavailable PETER FINNEY Unavailable Unavailable Moises SALES OPERATIONS ANALYST, Leelee N Unavailable Unavailab le Moises SALES OPERATIONS ANALYST, Leelee N Unavailable Unavailab le IMCA Referring Unavailable PETER FINNEY Primary Care Unavailable CARMEN ECHEVARRIA Referring Unavailable PETER FINNEY Primary Care Unavailable CARMEN ECHEVARRIA Attending Unavailable PETER FINNEY Primary Care Unavailable IMCA Referring Unavailable CARMEN ECHEVARRIA Attending Unavailable PETER FINNEY Primary Care Unavailable CARMEN ECHEVARRIA Referring Unavailable CRISPIN JOYCE (PROVIDER ENROLLMENT SPECIALIST) Referring UnavailPETER Montoya Primary Care Unavailable CRISPIN JOYCE (PROVIDER ENROLLMENT SPECIALIST) Referring UnavailCARMEN Candelario ZOAB Referring CRISPIN Baker (PROVIDER ENROLLMENT SPECIALIST) Referring UnavailCARMEN Candelario ZOAB Attending Dr. Peter Cota Primary Care Provider Dr. Peter Finney Referring Provider Dr. Abel Mcgee Attending Provider [phone] [address] Attending Provider [phone] Dr. Peter Finney Primary Care Provider Dr. Peter Finney Referring Provider [phone] La MULE SPINNER, MULE SPINNER-C Neris Attending Provider [phone] Peter Finney MD Primary Care Provider [phone] PETER FINNEY Primary Care Unavailable MAXX MAYER Attending Unavailable MAXX MAYER Admitting Unavailable Vamshi Randa ARRIAGA Primary Care Provider Dr. Peter Finney Referring Provider Dr. Abel Mcgee Attending Provider Dr. Randa Joseph Primary Care Provider Dr. Peter Finney Referring Provider Dr. Abel Mcgee Attending Provider Dr. Randa Joseph Primary Care Provider [phone] Dr. Randa Joseph Primary Care Provider [phone] Dr. Murray Mckee Attending Provider [phone] Merrill Burns Referring Provider Dr. Randa Joseph Referring Provider Dr. Abel Mcgee Attending Provider Dr. David Unger Referring Provider Dr. Dvaid Unger Other Provider HAYLEE Blair Attending Provider Dr. Randa Joseph Primary Care Provider [phone] Dr. Murray Mckee Attending Provider [phone] Dr. Merrill Burns Referring Provider Dr. Randa Joseph Referring Provider Dr. Abel Mcgee Attending Provider Dr. David Ugner Referring Provider Dr. David Unger Other Provider [phone] HAYLEE Blair Attending Provider Dr. Randa Joseph Primary Care Provider [phone] Dr. Murray Mckee Attending Provider [phone] Murray Mckee Referring Provider [phone] Murray Mckee Other Provider Dr. Randa Joseph Primary Care Provider Dr. Randa Joseph Referring Provider [phone] XENA Morin Attending Provider Vamshi DO, Randa A Primary Care Provider JAQUI FLETON Referring Unavailable VAMSHI, RANDA A Primary Care Unavailable VAMSHI, RANDA A Primary Care Unavailable VAMSHI, RANDA A Primary Care Unavailable YAEL NAIR Attending Unavailable Vamshi ARRIAGA, Dr. Baca Primary Care Provider Jordon SAMAYOA, Dr. Barragan Attending Provider Jordon SAMAYOA, Dr. Barragan Emergency Provider Vamshi ARRIAGA, Dr. Baca Attending Provider Vamshi ARRIAGA, Dr. Baca Referring Provider Lamberto MULE SPINNER-C, Ivelisse Diggs Attending Provider Red SAMAYOA, Dr. Jarrett Attending Provider Red SAMAYOA, Dr. Jarrett Referring Provider La MULE SPINNER-CNeris Attending Provider La BROOKS-CNeris Referring Provider YAEL GALLEGOS Attending Provider YAEL GALLEGOS Referring Provider [phone] Lamberto MULE SPINNER-CIvelisse Referring Provider Dr. Mario Koo MD Attending Provider Dr. Mario Koo MD Emergency Provider [phone] Dr. López Joseph MD Attending Provider [phone] Lamberto BROOKS-CIvelisse Other Provider Dr. Abel Mcgee DO Attending Provider Red SAMAYOA, Dr. Jarrett Other Provider Vamshi ARRIAGA, Dr. Baca Primary Care Provider [phone] Vamshi ARRIAGA, Dr. Baca Referring Provider [phone] Vamshi ARRIAGA, Dr. Baca Attending Provider [phone] Vamshi ARRIAGA, Dr. Baca Primary Care Provider Lamberto MULE SPINNER-C, Ivelisse Diggs Attending Provider La MULE SPINNER-C, Neris Attending Provider La MULE SPINNER-C, Neris Referring Provider Dr. Randa Joseph DO Referring Provider Grant MANZO, Dr. Momin Attending Provider Mikel PA, Salima Attending Provider Vamshi ARRIAGA, Dr. Baca Primary Care Provider Lamberto MULE SPINNER-C, Ivelisse Diggs Attending Provider Lamberto MULE SPINNER-C, Ivelisse Diggs Referring Provider Morin PA, Salima Referring Provider Morin PA, Salima Other Provider Shona SAMAYOA, Dr. Jose L Orta Attending Provider Rafi SAMAYOA, Dr. Gao Attending Provider [phone] Grant MANZO, Dr. Momin Attending Provider Shona SAMAYOA, Dr. Jose L Orta Attending Provider Grant MANZO, Dr. Momin Referring Provider Tovar MULE SPINNER, Neris Attending Unavailable Vamshi, Randa Primary Care Unavailable Tovar MULE SPINNER, Neris Referring Unavailable Vamshi, Randa Primary Care Unavailable Tovar MULE SPINNER, Neris Attending Unavailable Tovar MULE SPINNER, Neris Referring Unavailable Vamshi, Randa Primary Care Unavailable Tovar MULE SPINNER, Neris Attending Unavailable Tovar MULE SPINNER, Neris Referring Unavailable CabotLucero Attending Unavailable CabotLucero Referring Unavailable Vamshi, Randa Primary Care Unavailable Vamshi, Randa Primary Care Unavailable Luiza Moon Attending Unavailable Luiza Moon Referring Unavailable Vamshi, Randa Primary Care Unavailable Tovar MULE SPINNER, Neris Attending Unavailable Tovar MULE SPINNER, Neris Referring Unavailable Vamshi, Randa Primary Care Unavailable Tovar MULE SPINNER, Neris Attending Unavailable Tovar MULE SPINNER, Neris Referring Unavailable Vamshi, Randa Primary Care Unavailable VamshiLópez Attending Unavailable Vamshi, Randa Referring Unavailable Vamshi, Randa Primary Care Unavailable Merrill Burns Attending Unavailable Vamshi, Randa Referring Unavailable Vamshi, Randa Attending Unavailable Vamshi, Randa Primary Care Unavailable La MULE SPINNER, Neris Attending Unavailable Vamshi, Randa Primary Care Unavailable La MULE SPINNER, Neris Referring Unavailable Vamshi, Randa Primary Care Unavailable Luiza Moon Attending Unavailable Luiza Moon Referring Unavailable VamshiRanda Attending Unavailable Vamshi, Randa Referring Unavailable Vamshi, Randa Primary Care Unavailable Vamshi, Randa Primary Care Unavailable YAEL RODRIGUEZ Attending Unavailable MICHAELLITO PALMICA Referring Unavailable Vamshi, Randa Primary Care Unavailable Ivelisse Gould Referring Unavailable Ivelisse Gould Attending Unavailable Vamshi, Randa Primary Care Unavailable Yung Ruvalcaba Attending Unavailable Vamshi, Randa Primary Care Unavailable Mario Koo Attending Unavailable Vamshi, Randa Primary Care Unavailable Murray Mckee Attending Unavailable Murray Mckee Referring Unavailable Vamshi, Randa Primary Care Unavailable YAEL RODRIGUEZ Attending Unavailable MICHAEL YAEL Referring Unavailable Vamshi, Randa Primary Care Unavailable La MULE SPINNER, Neris Attending Unavailable La MULE SPINNER, Neris Referring Unavailable Vamshi, Randa Primary Care Unavailable Vamshi Randa Attending Unavailable Vamshi, Randa Primary Care Unavailable Salima Morin Attending Unavailable MorinEsteban muroison Referring Unavailable Vamshi, Randa Referring Unavailable Vamshi, Randa Primary Care Unavailable Ivelisse Gould Attending Unavailable Vamshi, Randa Referring Unavailable Vamshi, Randa Primary Care Unavailable Merrill Burns Attending Unavailable Vamshi, Randa Primary Care Unavailable Ivelisse Gould Referring Unavailable Ivelisse Gould Consulting Unavailable Abel Mcgee Attending Unavailable Vamshi, Randa Primary Care Unavailable Morin, Salima Referring Unavailable Murray Mckee Attending Unavailable Vamshi, Randa Referring Unavailable Vamshi, Randa Primary Care Unavailable Ivelisse Gould Attending Unavailable Vamshi, Randa Referring Unavailable Vamshi, Randa Primary Care Unavailable MorinEsteban muroison Attending Unavailable Vamshi, Randa Referring Unavailable Vamshi, Randa Primary Care Unavailable Ivelisse Gould Attending Unavailable Vamshi, Randa Primary Care Unavailable Mahendra Julio Attending Unavailable Mahendra Julio Referring Unavailable aRnda Joseph Primary Care Unavailable YAEL RODRIGUEZ Referring Unavailable YAEL RODRIGUEZ Attending Unavailable Randa Joseph Primary Care Unavailable Ivelisse Gould Attending Unavailable Ivelisse Gould Referring Unavailable Randa Joseph Primary Care Unavailable Ivelisse Gould Attending Unavailable Ivelisse Gould Referring Unavailable Luiza Moon Consulting Unavailable Allergies Allergy Classification Reported Allergen(s) Allergy Type Date of Onset Reaction(s) Facility (1 source) Gluten Drug allergy (disorder) [facility] Repository (11 sources) Adhesive agent; Translations: [ADHESIVE] Propensity to adverse reactions (disorder) 5 Rash [facility] Repository (11 sources) Wheat gluten extract; Translations: [WHEAT GLUTEN] Drug Allergy 0 Mental Status Change, Intolerance, Diarrhea [facility] Repository (20 sources) Wheat gluten extract Drug Allergy 2 Other [facility] (1 source) Gluten Drug allergy (disorder) 5 [facility] Repository Medications Current Medications Medication Drug Class(es) Dates Sig (Normalized) Sig (Original) [id number] actuat albuterol 0.09 mg/actuat metered dose inhaler (20 sources) beta2-Adrenergic Agonist Start: 03-28-2025 Albuterol Sulfate 90 mcg/actuation HFA aerosol inhaler Active 2 NMA INHALATION EVERY 4-6 HOURS as needed for shortness of breath or wheezing 8.5 March 28, 2025 12:00am Start: 03-25-2022 take 1 puff(s) by in halation every four hours as needed Albuterol Sulfate Active 1 - 2 PUFF INHALATION EVERY 4 HOURS NEEDED 8.5 March 25, 2022 7:56am Start: 09-25-2021 End: 03-25-2022 take 1 puff(s) by inhalation every four hours as needed Albuterol Sulfate Discontinued 1 - 2 PUFF INHALATION EVERY 4 HOURS NEEDED 8.5 September 25, 2021 8:42am March 25, 2022 7:56am Start: 09-25-2021 take 1 puff(s) by in halation every four hours as needed Albuterol Sulfate Active 1 - 2 PUFF INHALATION EVERY 4 HOURS NEEDED 8.5 September 25, 2021 8:42am Start: 09-20-2020 End: 03-01-2025 Albuterol Sulfate 90 mcg/act uation HFA aerosol inhaler Discontinued 1 - 2 NMA INHALATION EVERY 4 HOURS NEEDED as needed for Sob &/Or Wheezing 8.September 22, 2023 9:07am March 01, 2025 9:41am Start: 09-20-2020 End: 09-22-2023 take 1 puff(s) by inhalation every four hours as needed Albuterol Sulfate Discontinued 1 - 2 PUFF INHALATION EVERY 4 HOURS NEEDED 8.March 25, 2022 7:56am September 22, 2023 9:08am Start: 06-29-2015 take 2 puff(s) by in halation every six hours as needed albuterol HFA (PROAIR HFA) 90 mcg/actuation inhaler Indications: Asthma, moderate persistent Inhale 2 Puffs as instructed every 6 hours as needed. 1 Inhaler 2 06/29/2015 Active Comment on above: Inhale 2 Puffs as in structed every 6 hours as needed. 1 ml benralizumab 30 mg/ml prefilled syringe (20 sources) Interleukin-5 Receptor alpha-directed Cytolytic Antibody Start: 05-17-2021 benralizumab (FASENRA) 30 mg/mL injection Inject subcutaneously every 8 weeks. 05/17/2021 Active Start: 12-28-2020 Benralizumab ( Fasenra) 30 mg/mL syringe Active 30 mg SC every 4 weeks December 28, 2020 1:00am Comment on above: Inject subcutaneousl y every 8 weeks. bimatoprost 0.3 mg/ml ophthalmic solution (7 sources) Prostaglandin Analog Start: 024 take 0.03 drop(s) into the eye(s) once daily Bimatoprost 0.03 % drops Active 1 NMA OPHTHALMIC daily October 04, 2024 1:00am cyclobenzaprine hydrochloride 10 mg oral tablet (4 sources) Muscle Relaxant Start: 023 take 0.5-1 tablets by mouth three times daily as needed for muscle spasms cyclobenzaprine (FLEXERIL) 10 mg tablet TAKE 1/2 TO 1 TABLET BY MOUTH 3 TIMES DAILY NEEDED FOR SPASMS 01/27/2023 Active Comment on above: TAKE 1/2 TO 1 TABLET BY MOUTH 3 TIMES DAILY NEEDED FOR SPASMS 1 ml denosumab 60 mg/ml prefilled syringe (14 sources) RANK Ligand Inhibitor Start: 024 Denosumab (Prolia) 60 mg/mL syringe Active 60 mg SC every 6 months October 04, 2024 1:00am Start: 03-22-2019 denosumab (PRO JEANNIE) 60 mg/mL Inject subcutaneously once every 6 months. 03/22/2019 Active Comment on above: Inject subcutaneousl y once every 6 months. diclofenac potassium 50 mg oral tablet (7 sources) Nonsteroidal Anti-inflammatory Drug Start: 10-04-20 24 take 1 tablet by mouth three times daily as needed for pain Diclofenac Potassium 50 mg tablet Active 50 mg PO THREE TIMES A DAY as needed for pain October 04, 2024 1:00am donepezil hydrochloride 5 mg oral tablet (2 sources) Start: 03-28-20 25 take 1 tablet by mouth at bedtime Donepezil 5 mg tablet Active 5 mg PO AT BEDTIME March 28, 2025 12:00am doxycycline hyclate 100 mg oral tablet (20 sources) Tetracycline-class Drug Start: 02-15-20 23 End: 02-25-20 23 take 1 tablet by mouth twice daily doxycycline (VIBRA-TABS) 100 mg tablet Take 1 tablet by mouth twice daily for 10 days. 20 tablet 0 02/14/2023 02/24/2023 Active Start: 10-20-2022 End: 10-27-2022 take 1 tablet by mouth twice daily doxycycline monohydrate 100 mg tablet Indications: Lower resp. tract infection Take 1 tablet by mouth twice daily for 7 days. 14 tablet 0 10/20/2022 10/27/2022 Active Start: 10-21-2019 End: 12-05-2019 take 1 capsule by mouth twice daily Doxycycline Monohydrate 100 MG capsule Discontinued 100 mg PO TWICE A DAY October 21, 2019 1:00am December 05, 2019 2:37pm Start: 10-09-2017 End: 10-09-2017 take 1 capsule by mouth twice daily Doxycycline Monohydrate 100 MG capsule Discontinued 100 mg PO TWICE A DAY October 09, 2017 1:00am October 09, 2017 10:39pm Start: 07-16-2017 End: 07-24-2017 take 1 capsule by mouth twice daily Doxycycline Monohydrate 100 MG capsule Discontinued 100 mg PO TWICE A DAY 7 July 16, 2017 12:00am July 24, 2017 3:28pm Comment on above: Take 1 tablet by [facility] twice daily for 7 days. Take 1 tablet by [facility] twice daily for 10 days. ergocalciferol 1.25 mg oral capsule (20 sources) Provitamin D2 Compound Start: 10-21-2019 Ergocalciferol (Vitamin D2) 50,000 UNIT capsule Active 05725 U PO WE October 21, 2019 1:00am Start: 10-13-2018 take 1 capsule by [facility] every week ergocalciferol, vitamin D2, (DRISDOL) 50,000 unit capsule Take 1 capsule by mouth once each week. 0 10/13/2018 Active Comment on above: Take 1 capsule by [facility] once each week. ferrous gluconate 324 mg oral tablet (7 sources) Start: 5 take 1 tablet by mouth twice daily Ferrous Gluconate 324 mg (37.5 mg iron) tablet Active 324 mg PO TWICE A DAY 60 December 07, 2024 1:00am take with vitamin C finasteride 5 mg oral tablet (10 sources) 5-alpha Reductase Inhibitor Start: 4 take 1 tablet by mouth once daily Finasteride 5 mg tablet Active 5 mg PO DAILY January 05, 2024 12:00am fluticasone propionate 0.05 mg/actuat metered dose nasal spray (20 sources) Corticosteroid Start: 6 take 2 spray(s) nasal route once daily fluticasone (FLONASE) 50 mcg/actuation nasal spray Use 2 Sprays in each nostril once daily. 1 Bottle 6 02/26/2016 Active Start: 04-25-2015 End: 03-25-2022 Fluticasone Propionate 50 mc g/actuation spray,suspension Active 2 NMA NASAL TWICE A DAY as needed for Congestion March 25, 2022 7:59am Start: 04-25-2015 End: 03-25-2022 Fluticasone Propionate Activ e 2 SPRAY NASAL TWICE A DAY March 25, 2022 7:59am Comment on above: Use 2 Sprays in each nostril once daily. 60 actuat fluticasone propionate 0.232 mg/actuat / salmeterol xinafoate 0.014 mg/actuat dry powder inhaler (14 sources) Corticosteroid, beta2-Adrenergic Agonist Start: 10-04-2024 Fluticasone Propion-Salmeterol 232-14 mcg/actuation aerosol powdr breath activated Active 1 NMA INHALATION TWICE A DAY October 04, 2024 1:00am take 1 puff(s) by in halation twice daily fluticasone-salmeterol (ADVAIR DISKUS) 1 00-50 mcg/dose inhaler Inhale 1 Puff as instructed twice daily. Active take 1 puff(s) by in halation twice daily fluticasone-salmeterol (ADVAIR DISKUS) 1 00-50 mcg/dose inhaler Inhale 1 Puff as instructed twice daily. 0 Active take 1 puff(s) by in halation twice daily fluticasone-salmeterol (ADVAIR DISKUS) 5 00-50 mcg/dose dsdv Inhale 1 Puff as instructed twice daily. 0 Active Comment on above: Inhale 1 Puff as ins tructed twice daily. levothyroxine sodium 0.088 mg oral tablet (20 sources) l-Thyroxine Start: 2 take 1 tablet by mouth once daily levothyroxine (SYNTHROID) 88 mcg tablet Take 88 mcg by mouth once daily. 05/29/2022 Active Start: 03-21-2022 take 2 tablets by [facility] once daily Levothyroxine 50 mcg tablet Active 100 ug PO DAILY March 21, 2022 12:00am Start: 03-21-2022 take 100 ug by mouth once carey y Levothyroxine Active 100 MCG PO DAILY March 21, 2022 12:00am Start: 03-21-2022 take 75 ug by mouth once daily Levothyroxine Active 75 MCG PO DAILY March 20, 2022 11:00pm Comment on above: Take 88 mcg by mouth once daily. perflutren lipid microspheres 1.3 mL in NaCl (PF) 0.9% 10 mL injection (DEFINITY) (3 sources) Start: 2 End: 4 perflutren lipid microspheres 1.3 mL in NaCl (PF) 0.9% 10 mL injection (DEFINITY) pramipexole dihydrochloride 1.5 mg oral tablet (20 sources) Nonergot Dopamine Agonist Start: 4 take 1 tablet by mouth once daily Pramipexole 1.5 mg tablet Active 1.5 mg PO DAILY November 25, 2023 1:00am Start: 10-09-2017 End: 10-22-2017 take 1 tablet by mouth at bedtime Pramipexole 1 MG tablet Discontinued 1 mg PO AT BEDTIME October 09, 2017 10:39pm October 22, 2017 11:55am Start: 08-07-2017 MIRAPEX TABS a s directed PRAMIPEXOLE DIHYDROCHLORIDE TABS [id number] Leelee De Leon LPN Start: 04-03-2014 End: 09-22-2022 Pramipexole 1.5 MG tablet Discontinued 1 {tbl} PO AT BEDTIME April 03, 2014 12:00am September 22, 2022 8:41am Start: 04-03-2014 End: 09-22-2022 take 1 tablet by mouth at bedtime Pramipexole Discontinued 1 TABLET PO AT BEDTIME April 03, 2014 12:00am September 22, 2022 8:41am Comment on above: Take 1 tablet by [facility] daily at bedtime. 125 ml sodium chloride 9 mg/ml prefilled syringe (3 sources) Start: 2 End: 4 sodium chloride 0.9 % (flush) 10 mL (BD POSIFLUSH) tamsulosin hydrochloride 0.4 mg oral capsule (20 sources) alpha-Adrenergic Tank Start: 7 take 1 capsule by mouth once daily tamsulosin ER (FLOMAX) 0.4 mg cp24 TAKE 1 CAPSULE BY MOUTH ONCE DAILY. 90 capsule 3 08/23/2017 Active Start: 07-12-2017 take 1 capsule by [facility] at bedtime Tamsulosin 0.4 MG capsule Active 0.4 mg PO AT BEDTIME July 12, 2017 12:00am Comment on above: TAKE 1 CAPSULE BY [facility] ONCE DAILY. Zinc Acetate (20 sources) Start: 01-07-2022 Zinc Acetate A ctive 1 EACH TOPICAL January 07, 2022 2:19pm Start: 01-07-2022 Zinc Acetate A ctive EACH TOPICAL January 07, 2022 2:19pm Start: 01-07-2022 End: 09-22-2022 Zinc Acetate Ointment Discon tinued 1 NMA TOPICAL DAILY January 07, 2022 12:00am September 22, 2022 8:39am Start: 01-07-2022 End: 09-22-2022 Zinc Acetate Discontinued 1 EACH TOPICAL DAILY January 07, 2022 12:00am September 22, 2022 8:39am Start: 01-07-2022 End: 09-22-2022 Zinc Acetate Discontinued 1 EACH TOPICAL DAILY January 06, 2022 11:00pm September 22, 2022 7:39am Start: 01-07-2022 Zinc Acetate A ctive 1 EACH TOPICAL DAILY January 06, 2022 11:00pm Start: 01-07-2022 Zinc Acetate A ctive 1 EACH TOPICAL DAILY January 07, 2022 12:00am Completed/Discontinued Medications Medication Drug Class(es) Dates Sig (Normalized) Sig (Original) acetaminophen 500 mg oral tablet (20 sources) Start: 10-09-2017 End: 10-09-2017 take 2 tablets by mouth every eight hours Acetaminophen 500 MG tablet Discontinued 1000 mg PO EVERY 8 HOURS 90 October 09, 2017 1:00am October 09, 2017 10:39pm Start: 10-09-2017 End: 10-09-2017 take 1000 mg by mouth every eight hours Acetaminophen Discontinued 1000 MG PO EVERY 8 HOURS 90 October 09, 2017 1:00am October 09, 2017 10:39pm acyclovir 800 mg oral tablet (2 sources) Herpesvirus Nucleoside Analog DNA Polymerase Inhibitor, Herpes Simplex Virus Nucleoside Analog DNA Polymerase Inhibitor, Herpes Zoster Virus Nucleoside Analog DNA Polymerase Inhibitor Start: 08-07-2017 End: 08-14-2017 ACYCLOVIR 800 MG TABS Take one tablet 5 times daily ACYCLOVIR [id number] Mike MCCALLUM amoxicillin 875 mg / clavulanate 125 mg oral tablet (20 sources) Penicillin-class Antibacterial Start: 09-22-2023 End: 11-25-2023 Amoxicillin-Pot Clavulanate 875-125 mg tablet Discontinued {tbl} PO September 22, 2023 1:00am November 25, 2023 2:17pm Start: 09-22-2023 End: 11-25-2023 Amoxicillin-Pot Clavulanate Discontinued TABLET PO September 22, 2023 1:00am November 25, 2023 2:17pm Start: 10-01-2021 End: 10-11-2021 Amoxicillin-Pot Clavulanate (Augmentin) 875-125 mg tablet Discontinued 1 {tbl} PO Q12H 20 October 01, 2021 1:00am October 10, 2021 1:00am October 11, 2021 1:01am Ampicillin (2 sources) Penicillin-class Antibacterial Start: 08-07-2017 AMPICILLIN CAPS as directed AMPICILLIN CAPS [id number] Leelee De Leon LPN apixaban 2.5 mg oral tablet (20 sources) Factor Xa Inhibitor Start: 07-16-2017 End: 07-24-2017 take 1 tablet by mouth twice daily Apixaban (Eliquis) 2.5 MG tablet Discontinued 2.5 mg PO TWICE A DAY July 16, 2017 12:00am July 24, 2017 3:29pm aspirin 81 mg chewable tablet (20 sources) Platelet Aggregation Inhibitor, Nonsteroidal Anti-inflammatory Drug Start: 08-04-2017 End: 10-09-2017 take 1 tablet by mouth once daily Aspirin 81 MG Tab.Chew Discontinued 81 mg PO DAILY@0800 August 04, 2017 12:00am October 09, 2017 10:11am azithromycin 250 mg oral tablet (20 sources) Macrolide Antimicrobial Start: 11-23-2020 End: 12-28-2020 take 2-5 tablets by mouth once daily Azithromycin 250 mg tablet Discontinued 0 PO .COMPLEX 6 November 23, 2020 1:00am December 28, 2020 10:09am take 500 mg today (day 1), then 250 mg for 4 days (days 2-5) PO Budesonide-Formote rol (20 sources) Corticosteroid, beta2-Adrenergic Agonist Start: 11-25-2023 End: 10-04-2024 Budesonide-Formot bassam (Symbicort) 160-4.5 mcg/actuation HFA aerosol inhaler Discontinued 2 NMA INHALATION TWICE A DAY as needed for asthma November 25, 2023 2:18pm October 04, 2024 10:50am Start: 11-25-2023 take 1 puff(s) by in halation twice daily Budesonide-Formoterol (Symbicort) 160-4.5 mcg/actuation HFA aerosol inhaler Active 2 PUFF INHALATION TWICE A DAY November 25, 2023 2:18pm Start: 11-25-2023 take 1 puff(s) by in halation twice daily Budesonide-Formoterol (Symbicort) 160-4.5 mcg/actuation HFA aerosol inhaler Active 2 PUFF INHALATION TWICE A DAY November 25, 2023 1:18pm Start: 09-22-2023 End: 11-25-2023 Budesonide-Formoterol (Symbi tati) 160-4.5 mcg/actuation HFA aerosol inhaler Discontinued 2 NMA INHALATION TWICE A DAY 1 September 22, 2023 9:07am November 25, 2023 2:26pm Start: 09-22-2023 End: 11-25-2023 take 1 puff(s) by inhalation twice daily Budesonide-Formoterol (Symbicort) 160-4.5 mcg/actuation HFA aerosol inhaler Discontinued 2 PUFF INHALATION TWICE A DAY 1 September 22, 2023 9:07am November 25, 2023 2:26pm Start: 09-22-2023 End: 11-25-2023 take 1 puff(s) by inhalation twice daily Budesonide-Formoterol (Symbicort) 160-4.5 mcg/actuation HFA aerosol inhaler Discontinued 2 PUFF INHALATION TWICE A DAY 1 September 22, 2023 8:07am November 25, 2023 1:26pm Start: 09-22-2023 take 1 puff(s) by in halation twice daily Budesonide-Formoterol (Symbicort) 160-4.5 mcg/actuation HFA aerosol inhaler Active 2 PUFF INHALATION TWICE A DAY 1 September 22, 2023 8:07am Start: 03-25-2022 End: 09-22-2023 Budesonide-Formoterol (Symbi tati) 160-4.5 mcg/actuation HFA aerosol inhaler Discontinued 2 NMA INHALATION TWICE A DAY 1 March 25, 2022 7:55am September 22, 2023 9:08am Start: 03-25-2022 End: 09-22-2023 take 1 puff(s) by inhalation twice daily Budesonide-Formoterol (Symbicort) 160-4.5 mcg/actuation HFA aerosol inhaler Discontinued 2 PUFF INHALATION TWICE A DAY 1 March 25, 2022 7:55am September 22, 2023 9:08am Start: 03-25-2022 End: 09-22-2023 take 1 puff(s) by inhalation twice daily Budesonide-Formoterol (Symbicort) 160-4.5 mcg/actuation HFA aerosol inhaler Discontinued 2 PUFF INHALATION TWICE A DAY 1 March 25, 2022 6:55am September 22, 2023 8:08am Start: 03-25-2022 take 1 puff(s) by in halation twice daily Budesonide-Formoterol (Symbicort) 160-4.5 mcg/actuation HFA aerosol inhaler Active 2 PUFF INHALATION TWICE A DAY 1 March 25, 2022 6:55am Start: 03-25-2022 take 1 puff(s) by in halation twice daily Budesonide-Formoterol (Symbicort) 160-4.5 mcg/actuation HFA aerosol inhaler Active 2 PUFF INHALATION TWICE A DAY 1 March 25, 2022 7:55am Start: 09-25-2021 End: 03-25-2022 Budesonide-Formoterol (Symbi tati) 160-4.5 mcg/actuation HFA aerosol inhaler Discontinued 2 NMA INHALATION TWICE A DAY 1 September 25, 2021 8:43am March 25, 2022 7:56am Start: 09-25-2021 End: 03-25-2022 take 1 puff(s) by inhalation twice daily Budesonide-Formoterol (Symbicort) 160-4.5 mcg/actuation HFA aerosol inhaler Discontinued 2 PUFF INHALATION TWICE A DAY 1 September 25, 2021 7:43am March 25, 2022 6:56am Start: 09-25-2021 End: 03-25-2022 take 1 puff(s) by inhalation twice daily Budesonide-Formoterol (Symbicort) 160-4.5 mcg/actuation HFA aerosol inhaler Discontinued 2 PUFF INHALATION TWICE A DAY 1 September 25, 2021 8:43am March 25, 2022 7:56am Start: 09-25-2021 take 1 puff(s) by in halation twice daily Budesonide-Formoterol (Symbicort) 160-4.5 mcg/actuation HFA aerosol inhaler Active 2 PUFF INHALATION TWICE A DAY 1 September 25, 2021 8:43am Start: 02-12-2021 End: 09-25-2021 Budesonide-Formoterol (Symbi tati) 160-4.5 mcg/actuation HFA aerosol inhaler Discontinued 2 NMA INHALATION TWICE A DAY 1 February 12, 2021 10:44am September 25, 2021 8:43am Start: 02-12-2021 End: 09-25-2021 take 1 puff(s) by inhalation twice daily Budesonide-Formoterol (Symbicort) 160-4.5 mcg/actuation HFA aerosol inhaler Discontinued 2 PUFF INHALATION TWICE A DAY 1 February 12, 2021 9:44am September 25, 2021 7:43am Start: 02-12-2021 End: 09-25-2021 take 1 puff(s) by inhalation twice daily Budesonide-Formoterol (Symbicort) 160-4.5 mcg/actuation HFA aerosol inhaler Discontinued 2 PUFF INHALATION TWICE A DAY 1 February 12, 2021 10:44am September 25, 2021 8:43am Start: 08-20-2020 End: 02-12-2021 Budesonide-Formoterol (Symbi tati) 160-4.5 mcg/actuation HFA aerosol inhaler Discontinued 2 NMA INHALATION TWICE A DAY 1 August 20, 2020 12:49pm February 12, 2021 10:44am Start: 08-20-2020 End: 02-12-2021 take 1 puff(s) by inhalation twice daily Budesonide-Formoterol (Symbicort) 160-4.5 mcg/actuation HFA aerosol inhaler Discontinued 2 PUFF INHALATION TWICE A DAY 1 August 20, 2020 11:49am February 12, 2021 9:44am Start: 08-20-2020 End: 02-12-2021 take 1 puff(s) by inhalation twice daily Budesonide-Formoterol (Symbicort) 160-4.5 mcg/actuation HFA aerosol inhaler Discontinued 2 PUFF INHALATION TWICE A DAY 1 August 20, 2020 12:49pm February 12, 2021 10:44am Start: 05-01-2020 End: 08-20-2020 Budesonide-Formoterol (Symbi tati) 160-4.5 mcg/actuation HFA aerosol inhaler Discontinued 2 NMA INHALATION TWICE A DAY 1 May 01, 2020 11:23am August 20, 2020 12:51pm Start: 05-01-2020 End: 08-20-2020 take 1 puff(s) by inhalation twice daily Budesonide-Formoterol (Symbicort) 160-4.5 mcg/actuation HFA aerosol inhaler Discontinued 2 PUFF INHALATION TWICE A DAY 1 May 01, 2020 10:23am August 20, 2020 11:51am Start: 05-01-2020 End: 08-20-2020 take 1 puff(s) by inhalation twice daily Budesonide-Formoterol (Symbicort) 160-4.5 mcg/actuation HFA aerosol inhaler Discontinued 2 PUFF INHALATION TWICE A DAY 1 May 01, 2020 11:23am August 20, 2020 12:51pm Start: 12-05-2019 End: 05-01-2020 Budesonide-Formoterol (Symbi tati) 160-4.5 mcg/actuation HFA aerosol inhaler Discontinued 2 NMA INHALATION TWICE A DAY 1 December 05, 2019 1:00am May 01, 2020 11:23am Start: 12-05-2019 End: 05-01-2020 take 1 puff(s) by inhalation twice daily Budesonide-Formoterol (Symbicort) 160-4.5 mcg/actuation HFA aerosol inhaler Discontinued 2 PUFF INHALATION TWICE A DAY 1 December 05, 2019 1:00am May 01, 2020 11:23am calcium carbonate 1250 mg / cholecalciferol 600 unt oral tablet (20 sources) Vitamin D Start: 07-16-2017 End: 09-30-2017 Calcium Carbonate-Vitamin D3 ([place] 500 + D3) 1 EACH tablet Discontinued 1 NMA PO TWICE A DAY 60 July 24, 2017 3:29pm September 30, 2017 11:09am cephalexin 500 mg oral capsule (20 sources) Cephalosporin Antibacterial Start: 10-21-2019 End: 12-05-2019 take 1 capsule by mouth every six hours Cephalexin 500 MG capsule Discontinued 500 mg PO EVERY 6 HOURS 40 October 21, 2019 1:00am December 05, 2019 2:37pm CLONAZEPAM TABS (13 sources) Benzodiazepine Start: 08-07-2017 KLONOPIN TABS as directed CLONAZEPAM TABS [id number] Leelee De Leon MONIE Start: 12-20-2015 take 2 tablets by mo uth once daily at bedtime clonazePAM (KLONOPIN) 0.5 mg tablet Indications: Restless legs syndrome (RLS) Take 1 tablet by mouth daily at bedtime. takes with 1mg tablet at bedtime 30 tablet 0 12/20/2015 Active Start: 12-20-2015 take 0.5 mg by mouth once carey y clonazePAM (KLONOPIN) 1 mg tablet Indications: Restless legs syndrome (RLS) Take 1 tablet by mouth once daily. Along with the 0.5 mg tab 30 tablet 0 12/20/2015 Active Start: 04-03-2014 take 1.5 mg by mouth at bedtim e Clonazepam Active 1.5 MG PO AT BEDTIME April 03, 2014 9:32am Start: 04-03-2014 take 1 mg by mouth at bedtime Clonazepam Active 1 MG PO AT BEDTIME April 03, 2014 12:00am Comment on above: Take 1 tablet by claudio th once daily. Along with the 0.5 mg tab Take 1 tablet by claudio th daily at bedtime. takes with 1mg tablet at bedtime ferrous sulfate 325 mg oral tablet (20 sources) Start: 7 End: 8 take 1 tablet by mouth twice daily at mealtime Ferrous Sulfate 325 MG tablet Discontinued 325 mg PO TWICE DAILY WITH MEALS October 09, 2017 10:39pm October 22, 2017 11:53am ibuprofen 200 mg oral capsule (20 sources) Nonsteroidal Anti-inflammatory Drug Start: 8 End: 5 take 1 capsule by mouth twice daily as needed for pain Ibuprofen 200 MG capsule Discontinued 200 mg PO TWICE A DAY as needed for Pain September 10, 2018 1:00am March 01, 2025 9:41am take 1 tablet by claudio th every six hours as needed ibuprofen (MOTRIN) 200 mg tablet Take 20 0 mg by mouth every 6 hours as needed. With food. Active Comment on above: Take 200 mg by mouth every 6 hours as needed. With food. latanoprost 0.05 mg/ml ophthalmic solution (20 sources) Prostaglandin Analog Start: 11-25-2023 End: 12-17-2024 Latanoprost 0.005 % drops Discontinued 1 NMA OPHTHALMIC DAILY November 25, 2023 1:00am October 04, 2024 10:50am Start: 07-19-2022 latanoprost (X ALATAN) 0.005 % ophthalmic solution Use in both eyes once daily. 07/19/2022 Active Comment on above: Use in both eyes onc e daily. methylPREDNISolone 4 mg oral tablet (20 sources) Corticosteroid Start: 2020 End: 2020 take 1 tablet by mouth once Methylprednisolone (Medrol (Baljinder)) 4 mg tablets,dose pack Discontinued 4 mg PO per package directions 08 03November 23, 2020 1:00am November 27, 2020 1:00am November 28, 2020 1:02am montelukast 10 mg oral tablet (20 sources) Leukotriene Receptor Antagonist Start: 2019 End: 2023 take 1 tablet by mouth once daily Montelukast 10 mg tablet Discontinued 10 mg PO DAILY February 01, 2020 8:16am May 01, 2020 11:23am oxyCODONE hydrochloride 5 mg oral tablet (20 sources) Opioid Agonist Start: 2016 End: 2017 take 5-10 mg by mouth every four hours as needed for pain Oxycodone 5 MG tablet Discontinued 5 - 10 mg PO EVERY 4 HOURS NEEDED as needed for Mod-Severe Pain (4-10/10) October 09, 2017 1:00am October 22, 2017 11:54am PANTOPRAZOLE SODIUM TBEC (20 sources) Proton Pump Inhibitor Start: 2016 PANTOPRAZOLE SODIUM TBEC as directed PANTOPRAZOLE SODIUM TBEC [id number] Leelee De Leon LPN Start: 04-03-2014 take 1 tablet by claudio th at bedtime Pantoprazole 40 MG tablet Active 40 mg PO AT BEDTIME April 03, 2014 12:00am Comment on above: TAKE 1 TABLET BY CLAUDIO TH ONCE DAILY. predniSONE 20 mg oral tablet (20 sources) Start: 11-05-2024 End: 12-07-2024 take 2 tablets by mouth once daily Prednisone 20 mg tablet Discontinued 40 mg PO DAILY 07 23November 05, 2024 1:00am December 07, 2024 11:06am Start: 10-20-2022 End: 10-25-2022 take 2 tablets by mouth once daily predniSONE (DELTASONE) 20 mg tablet Indications: Lower resp. tract infection , History of asthma Take 2 tablets by mouth once daily for 5 days. 10 tablet 0 10/20/2022 10/25/2022 Active Start: 10-15-2020 End: 02-12-2021 Prednisone 10 mg tablet Disc ontinued 10 mg PO daily December 28, 2020 1:00am February 12, 2021 10:36am take 4 tabs for three days, then 3 tabs for three days, then 2 tabs for three days, then 1 tab for 3 days Start: 08-20-2020 End: 08-25-2020 take 2 tablets by mouth once daily Prednisone 20 mg tablet Discontinued 40 mg PO DAILY 07 23August 20, 2020 1:00am August 24, 2020 1:00am August 25, 2020 1:03am Start: 08-20-2020 End: 08-25-2020 take 40 mg by mouth once daily Prednisone Discontinued 40 MG PO DAILY 07 23August 20, 2020 1:00am August 25, 2020 1:03am Comment on above: Take 2 tablets by [facility] once daily for 5 days. PROSTATE MEDICATION: UNKNOWN NAME (2 sources) Start: 08-07-2017 rivaroxaban 10 mg oral tablet (20 sources) Factor Xa Inhibitor Start: 10-09-2017 End: 10-22-2017 Rivaroxaban (Xarelto) 10 MG tablet Discontinued 10 mg PO DAILY@0600 October 09, 2017 10:39pm October 22, 2017 11:55am x 10 dose thru 10/18 sulfamethoxazole 800 mg / trimethoprim 160 mg oral tablet (20 sources) Dihydrofolate Reductase Inhibitor Antibacterial, Sulfonamide Antimicrobial Start: 10-21-2019 End: 12-05-2019 Sulfamethoxazole-Trime thoprim 1 TABLET tablet Discontinued 1 {tbl} PO TWICE A DAY October 21, 2019 1:00am December 05, 2019 2:38pm Start: 10-21-2019 End: 12-05-2019 take 1 tablet by mouth twice daily Sulfamethoxazole-Trimethoprim Discontinu ed 1 TABLET PO TWICE A DAY October 21, 2019 1:00am December 05, 2019 2:38pm 60 actuat testosterone 12.5 mg/actuat topical gel (1 source) Androgen Start: 01-05-2019 Testosterone 1 2.5 mg/ 1.25 gram (1 %) glpm Apply 1 Pump as directed once daily. 0 01/05/2019 Active Comment on above: Apply 1 Pump as dire cted once daily. 12 hr timolol 5 mg/ml ophthalmic solution (7 sources) beta-Adrenergic Tank Start: 08-27-2023 End: 11-25-2023 Timolol (Betimol) 0.5 % drops Discontinued 1 NMA EACH EYE TWICE A DAY August 27, 2023 1:00am November 25, 2023 2:19pm Timolol (Betimol) 0.5 % drops (17 sources) Start: 08-27-2023 End: 11-25-2023 Timolol (Betimol) 0.5 % drops Discontinued 1 DRP EACH EYE TWICE A DAY August 27, 2023 1:00am November 25, 2023 2:19pm Start: 08-27-2023 End: 11-25-2023 Timolol (Betimol) 0.5 % drop s Discontinued 1 DRP EACH EYE TWICE A DAY August 27, 2023 12:00am November 25, 2023 1:19pm Start: 08-27-2023 Timolol (Betim ol) 0.5 % drops Active 1 DRP EACH EYE TWICE A DAY August 27, 2023 12:00am 60 actuat tiotropium 0.13161 mg/actuat inhalation spray (20 sources) Anticholinergic Start: 01-17-2020 End: 02-12-2021 take 1.25 ug by inhalation once daily Tiotropium [place] (Spiriva Respimat) 1.25 mcg/actuation mist Discontinued 2 NMA INHALATION DAILY August 20, 2020 12:50pm February 12, 2021 10:36am Start: 01-17-2020 End: 02-12-2021 take 1 puff(s) by inhalation once daily Tiotropium [place] (Spiriva Respimat) 1.25 mcg/actuation mist Discontinued 2 PUFF INHALATION DAILY August 20, 2020 12:50pm February 12, 2021 10:36am triamcinolone acetonide 40 mg/ml injectable suspension (7 sources) Corticosteroid Start: 12-28-2020 End: 12-28-2020 inject 90 mg by intramuscular injection once Kenalog (triamcinolone acetonide) 40 mg/mL suspension for injection Discontinued 90 MG IM ONCE 2.25 December 28, 2020 10:06am December 28, 2020 11:00am Problems Active Problems Problem Classification Problem Date Documented Da te Episodic/Chronic Acute bronchitis (20 sources) Exacerbation of asthma; Translations: [Acute bronchitis, unspecified] 11-23-2020 Episodic Aortic; peripheral; and visceral artery aneurysms (7 sources) Aortic root dilatation; Translations: [Thoracic aortic ectasia] Onset: 03-04-2017 03-04-2017 Chronic Asthma (20 sources) Mild intermittent asthma, uncomplicated; Translations: [Uncomplicated severe persistent asthma] Onset: 03-23-2010 Chronic Bacterial infection; unspecified site (20 sources) Bacterial infection due to Pseudomonas; Translations: [Other bacterial infections of unspecified site] 11-06-2023 Episodic Chronic obstructive pulmonary disease and bronchiectasis (7 sources) Pulmonary emphysema; Translations: [Emphysema, unspecified] 11-13-2024 Chronic Chronic ulcer of skin (20 sources) 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; Translations: [Non-pressure chronic ulcer of left ankle with necrosis of muscle] Onset: 03-19-2025 08-27-2023 Chronic Coronary atherosclerosis and other heart disease (6 sources) Coronary arteriosclerosis; Translations: [Atherosclerotic heart disease of [place] coronary artery without angina pectoris] Onset: 08-18-2022 08-18-2022 Chronic Deficiency and other anemia (1 source) Anemia, unspecified; Translations: [ANEMIA UNSPECIFIED] Onset: 05-17-2018 Episodic Deficiency and other anemia (20 sources) Iron deficiency anemia; Translations: [Iron deficiency anemia, unspecified] 12-05-2019 Episodic Deficiency and other anemia (20 sources) Iron deficiency anemia, unspecified; Translations: [Iron deficiency anemia, unspecified] Onset: 03-28-2025 09-17-2023 Episodic Esophageal disorders (20 sources) Gastro-esophageal reflux disease without esophagitis; Translations: [Gastroesophageal reflux disease] Onset: 03-23-2010 10-14-2021 Chronic Fracture of lower limb (20 sources) Fracture of shaft of femur; Translations: [Unspecified fracture of shaft of left femur, initial encounter for closed fracture] 12-05-2019 Episodic Hyperplasia of prostate (8 sources) Benign prostatic hyperplasia without lower urinary tract symptoms; Translations: [Benign prostatic hyperplasia] Onset: 12-13-2014 12-13-2014 Chronic Immunizations and screening for infectious disease (20 sources) Contact with and (suspected) exposure to other viral communicable diseases; Translations: [Contact with or suspected exposure to other viral communicable disease] 11-23-2020 Episodic Joint disorders and dislocations; trauma-related (20 sources) Dislocation of hip joint; Translations: [Unspecified dislocation of left hip, initial encounter] 10-21-2019 Episodic Medical examination/evaluation (2 sources) Encounter for other preprocedural examination; Translations: [ENCOUNTER OTHER PREPROCEDURAL EXAM] Onset: 05-05-2018 Episodic Mycoses (1 source) Onychomycosis; Translations: [Tinea unguium] 03-08-2024 Episodic Osteoarthritis (1 source) Unspecified osteoarthritis, unspecified site; Translations: [UNSPECIFIED OSTEOARTHRITIS UNS SITE] Onset: 05-17-2018 Chronic Osteoporosis (9 sources) Osteoporosis; Translations: [Age-related osteoporosis without current pathological fracture] Onset: 03-23-2010 08-14-2010 Chronic Other bone disease and musculoskeletal deformities (20 sources) Osteopenia; Translations: [Other specified disorders of bone density and structure, unspecified site] 12-05-2019 Episodic Other connective tissue disease (1 source) Presence of left artificial hip joint; Translations: [PRESENCE LEFT ARTIFICIAL HIP JOINT] Onset: 05-17-2018 Chronic Other connective tissue disease (7 sources) History of total hip arthroplasty; Translations: [Presence of unspecified artificial hip joint] Onset: 03-23-2010 08-14-2010 Chronic Other connective tissue disease (2 sources) Pain in left lower leg; Translations: [Pain in left lower leg] Onset: 03-19-2025 Episodic Other diseases of veins and lymphatics (20 sources) Peripheral venous insufficiency; Translations: [Venous insufficiency (chronic) (peripheral)] 08-27-2023 Episodic Other diseases of veins and lymphatics (20 sources) Venous insufficiency (chronic) (peripheral); Translations: [Venous (peripheral) insufficiency, unspecified] Onset: 03-19-2025 09-17-2023 Episodic Other ear and sense organ disorders (1 source) Unspecified hearing loss, bilateral; Translations: [UNSPECIFIED HEARING LOSS BILATERAL] Onset: 05-17-2018 Chronic Other gastrointestinal disorders (1 source) Celiac disease; Translations: [CELIAC DISEASE] Onset: 05-17-2018 Chronic Other gastrointestinal disorders (20 sources) Celiac disease; Translations: [Celiac disease] Onset: 03-23-2010 08-14-2010 Chronic Other hereditary and degenerative nervous system conditions (1 source) Restless legs syndrome; Translations: [RESTLESS LEGS SYNDROME] Onset: 05-17-2018 Chronic Other hereditary and degenerative nervous system conditions (20 sources) Restless legs; Translations: [Restless legs syndrome] Onset: 03-23-2010 08-14-2010 Chronic Other injuries and conditions due to external causes (20 sources) Delayed healing of wound; Translations: [Other injury of unspecified body region, subsequent encounter] 08-27-2023 Episodic Other injuries and conditions due to external causes (20 sources) Other injury of unspecified body region, subsequent encounter; Translations: [Open wound(s) (multiple) of unspecified site(s), complicated] 09-17-2023 Episodic Other injuries and conditions due to external causes (1 source) Injury of great toenail; Translations: [Unspecified injury of unspecified foot, initial encounter] 03-08-2024 Episodic Other injuries and conditions due to external causes (1 source) Injury of right shoulder; Translations: [Unspecified injury of right shoulder and upper arm, initial encounter] 08-08-2024 Episodic Other injuries and conditions due to external causes (7 sources) Avulsion of skin; Translations: [Other injury of unspecified body region, initial encounter] 09-20-2024 Episodic Other lower respiratory disease (7 sources) Fibrosis of lung; Translations: [Pulmonary fibrosis, unspecified] Onset: 02-25-2016 02-25-2016 Chronic Other lower respiratory disease (2 sources) Lower respiratory tract infection; Translations: [Unspecified acute lower respiratory infection] Episodic Other lower respiratory disease (8 sources) H/O: asthma; Translations: [Personal history of other diseases of the respiratory system] Episodic Other lower respiratory disease (7 sources) Dyspnea; Translations: [Dyspnea, unspecified] 11-13-2024 Episodic Other lower respiratory disease (16 sources) Solitary nodule of lung; Translations: [Solitary pulmonary nodule] 12-07-2024 Episodic Other nervous system disorders (4 sources) Disease of spinal cord, unspecified; Translations: [DISEASE OF SPINAL CORD UNSPECIFIED] Onset: 05-05-2018 Chronic Other nervous system disorders (7 sources) Cervical myelopathy; Translations: [Disease of spinal cord, unspecified] Onset: 01-12-2019 01-12-2019 Chronic Other nutritional; endocrine; and metabolic disorders (20 sources) Obesity; Translations: [Obesity, unspecified] 09-25-2021 Chronic Other nutritional; endocrine; and metabolic disorders (20 sources) Obesity, unspecified; Translations: [Obesity, unspecified] Chronic Phlebitis; thrombophlebitis and thromboembolism (20 sources) Personal history of other venous thrombosis and embolism; Translations: [Deep venous thrombosis] Onset: 02-06-2010 08-14-2010 Episodic Residual codes; unclassified (20 sources) Obstructive sleep apnea syndrome; Translations: [Obstructive sleep apnea (adult) (pediatric)] Onset: 08-18-2022 08-18-2022 Chronic Residual codes; unclassified (9 sources) History of hernia repair; Translations: [Other specified postprocedural states] Episodic Residual codes; unclassified (20 sources) Bilateral lower limb edema; Translations: [Localized edema] 02-16-2025 Episodic Residual codes; unclassified (8 sources) History of operative procedure on hip; Translations: [Other specified postprocedural states] 03-04-2025 Episodic Residual codes; unclassified (8 sources) H/O Spinal surgery; Translations: [Other specified postprocedural states] 03-04-2025 Episodic Residual codes; unclassified (2 sources) Localized edema; Translations: [Localized edema] Onset: 03-19-2025 Episodic Screening or history of mental health and substance abuse (1 source) Personal history of nicotine dependence; Translations: [PERSONAL HISTORY OF NICOTINE DEPEND] Onset: 05-17-2018 Episodic Skin and subcutaneous tissue infections (20 sources) Cellulitis; Translations: [Cellulitis, unspecified] 10-22-2019 Episodic Spondylosis; intervertebral disc disorders; other back problems (1 source) Other spondylosis with myelopathy, cervical region; Translations: [OTH SPONDYLOSIS W/MYELOPATHY CERV] Onset: 05-17-2018 Chronic Spondylosis; intervertebral disc disorders; other back problems (3 sources) Spinal stenosis, cervical region; Translations: [SPINAL STENOSIS CERVICAL REGION] Onset: 05-05-2018 Episodic Thyroid disorders (1 source) Other specified hypothyroidism; Translations: [Other specified hypothyroidism] Onset: 12-19-2024 Chronic Unclassified (20 sources) Obstructive sleep apnea (adult) (pediatric); Translations: [Obstructive sleep apnea (adult)(pediatric)] Onset: 05-17-2018 Chronic Unclassified (20 sources) 2012 femur fracture [facility] 12-05-2019 Varicose veins of lower extremity (16 sources) Skin ulcer; Translations: [Varicose veins of unspecified lower extremity with ulcer of unspecified site] Onset: 02-16-2025 03-04-2025 Episodic Past or Other Problems Problem Classification Problem Date Documented Date Episodic/Chronic Abdominal hernia (12 sources) Left inguinal hernia ; Translations: [Unilateral inguinal hernia, without obstruction or gangrene, not specified as recurrent] Onset: 12-13-2014 Resolved: 09-10-2022 Episodic Abdominal pain (3 sources) Epigastric pain; Translations: [Epigastric pain] Onset: 01-04-2015 Resolved: 01-04-2015 Episodic Fracture of upper limb (7 sources) Fracture at wrist and/or hand level; Translations: [Fracture of unspecified carpal bone, right wrist, initial encounter for closed fracture] Onset: 09-01-2014 09-01-2014 Episodic Gastritis and duodenitis (3 sources) Acute gastritis; Translations: [Acute gastritis without bleeding] Onset: 01-04-2015 Resolved: 01-04-2015 Episodic Genitourinary symptoms and ill-defined conditions (7 sources) Lower urinary tract symptoms; Translations: [Unspecified symptoms and signs involving the genitourinary system] Onset: 12-13-2014 12-13-2014 Episodic Malaise and fatigue (7 sources) Fatigue; Translations: [Other fatigue] Onset: 03-13-2017 03-13-2017 Episodic Nutritional deficiencies (1 source) Iron deficiency; Translations: [Iron deficiency] Onset: 12-07-2024 Episodic Open wounds of extremities (1 source) Laceration without foreign body of left index finger without damage to nail, initial encounter; Translations: [Laceration without foreign body of left index finger without damage to nail, initial encounter] Onset: 10-10-2024 Episodic Other diseases of kidney and ureters (7 sources) Obstruction of pelviureteric junction; Translations: [Crossing vessel and stricture of ureter without hydronephrosis] Onset: 12-13-2014 12-13-2014 Episodic Other lower respiratory disease (1 source) Shortness of breath; Translations: [Shortness of breath] Onset: 11-24-2024 Episodic Other non-traumatic joint disorders (1 source) Pain in left shoulder; Translations: [Pain in left shoulder] Onset: 10-21-2024 Episodic Other screening for suspected conditions (not mental disorders or infectious disease) (2 sources) Encounter for screening for malignant neoplasm of prostate; Translations: [Encounter for screening for malignant neoplasm of prostate] Onset: 04-15-2024 Episodic Residual codes; unclassified (4 sources) Past history of procedure; Translations: [Other specified postprocedural states] Onset: 09-18-2020 03-04-2025 Episodic Viral infection (2 sources) Herpes zoster; Translations: [Zoster without complications] Onset: 08-07-2017 08-07-2017 Episodic Results Test Name Value Interpretation Reference Range Facility Pulmonary Visit Reporton Pulmonary Visit Report [facility] [address] [place] [address] OFFICE VISIT Date of Service: 03/28/25 MR#: [id number] Acct: [id number] Name: WELLINGTON GONZALEZ Rep #: [id number] : 1945 Provider: Ivelisse Gould NP Age/Sex: 80/M Location: [facility] [place].[facility] Status: Signed Assessment and Plan Assessment and Plan (1) Severe persistent asthma, uncomplicated: Status: Chronic Plan: Currently controlled. He is encouraged to be compliant use of ICS/LABA therapy. I have offered him suggestions on how to set reminders on his phone so that he will use his inhaler routinely. Continue with use of Fasenra. Continue with use of albuterol to be used as needed for worsening symptoms. Notify this practice for worsening symptoms or symptoms of bronchitis. (2) JOSHUA (obstructive sleep apnea): Status: Chronic Plan: Patient is using and benefiting from Pap therapy.??? Continue with use of a nasal style mask. No indication for titration study at this time. Contact the office for any new or worsening symptoms in the meantime.??? Follow-up in 4 months with compliance download. I have specifically discussed the importance of increasing sleep time today. I have encouraged the patient to set reminders on his phone to stop with his activities in the evening and begin to prepare for bedtime. (3) Solitary pulmonary nodule: Status: Acute Plan: Incidental finding on CTA. I have recommended a noncontrast chest CT 12 months from previous imaging as the patient has low risk factors. Previously ordered for October 2025. (4) Restless leg syndrome: Status: Chronic Plan: I believe that these are suboptimally controlled and are contributing to his sleep quality. His ferritin level was less than 75 ng/mL and so ferrous gluconate was initiated. I have recommended that he continue with this regimen until follow-up and complete a ferritin level prior to the follow-up visit. Orders: Orders Ferritin 14 Weeks D50.9 - Iron deficiency anemia, unspecified Medications: New albuterol sulfate 90 mcg/actuation 2 inhalations inhalation Q4-6H PRN 8.5 grams 3RF shortness of breath or wheezing Plan Details Follow Up: 4 Months (LMR) HPI HPI Comments Details: Patient is a 80-year-old male who presents to the clinic today for a routine scheduled follow up visit due to underlying asthma and JOSHUA. He is ambulatory and currently on room air. If you recall, the patient was initially referred to our office in November 2019 for the evaluation of asthma. At that time, the patient had reported that he was initially diagnosed with asthma in the early . The patient does have a history of gastroesophageal reflux disease. He was previously being followed by Dr. Molina at [facility]. The patient does have a history of peripheral eosinophilia, dating as far back as 2011 in our system. In addition to the aforementioned, the patient reported a history of seasonal allergic rhinitis along with nasal polyposis and sinus disease, for which he has been managed in the past by Dr. Morrow of ENT. 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 He does have a prior smoking history of approximately 9 pack years having quit completely in 1968. He also reported prior secondhand smoke exposure. The patient does currently keep 1 dog as a pet in his home environment. He has not had exacerbations of his asthma since last evaluation. He has not required antibiotics or oral prednisone. On April 13, 2025 he plans to have an ablation on his legs. He reports that his nighttime awakenings have improved since last follow-up. Nocturia does occur x 1. He feels like he does not obtain enough sleep time at night. He often delays his bedtime due to activities in the evening. He is now using a nasal style mask since he worked with [facility] for a mask style and feels like the current mask that he is using is a more comfortable option for him. Today the patient denies cough. He denies shortness of breath wheeze congestion, chest pain chest tightness. He denies fever, chills, body aches. He has remained compliant with Fasenra injections. He has not experienced injection site reaction and reports that this medication has very effective for him. He uses air duo off and on. He reports that he has used air duo more often than he has not recently He has not routinely used albuterol on a daily basis. The patient is using BiPAP without significant air leak or snore. He does experience dry mouth. He denies headaches. He does not nap. There are no concerns about the air pressure. He is reporting good compliance. ESS is 9. He is using ferrous gluconate and is taking it with Vitamin C. The patient is a former smoker. 6-pack-year total and quit 56 years ago. PFT from November 02, 2024 shows (more content not included)... Normal [facility] Venous Duplex US - Jose Daniel [facility] 03-14-2025 Venous Duplex US - Jose Daniel [facility] Cardi[facility] Services [address] [place] [address] Venous Duplex US - Jose Daniel [facility] 03/14/25 1006 MR#: [id number] Acct: [id number] Name: WELLINGTON GONZALEZ Rep #: [id number] : 1945 80 From: Murray Mckee MD Attending Dr: XENA Solorio Status: REG CLI Ordering Dr: Salima Morin Date: 03/14/25 Location: [facility] Sex: M C Admitted: Reason For Study Reason For Study: Bilateral leg swelling RIGHT LEFT CFV is compressible, spontaneous, phasic, competent CFV is compressible, spontaneous, phasic, competent, and demonstrates normal augmentation. and demonstrates normal augmentation. FV is compressible, spontaneous, phasic, competent Lt FV is partially compressible with bright and demonstrates normal augmentation. intraluminal echoes consistent with chronic DVT and POP V is compressible, spontaneous, phasic, competent INCOMPETENT for greater than 1.0 second and demonstrates normal augmentation. Lt PopV is partially compressible with bright T/P Trunk is compressible. intraluminal echoes consistent with chronic DVT and PTV is compressible. INCOMPETENT for greater than 1.0 second RT PerV is compressible. Lt T/P Trunk and Lt GastrocV are partially SFJ is INCOMPETENT and measures 0.83 cm. compressible with bright intraluminal echoes GSV proximal thigh measures 0.40 x 0.43 cm. consistent with chronic DVT. GSV at knee measures 0.34 x 0.32 cm. PTV is compressible. GSV INCOMPETENT throughout for greater than 0.5 LT PerV is compressible. seconds. SFJ is INCOMPETENT and measures 0.73 cm. ASV from junction is INCOMPETENT for greater than 0.5 GSV proximal thigh measures 0.44 x 0.41 cm. seconds and measures 0.31 x 0.28 cm GSV at knee measures 0.47 x 0.47 cm. ASV proximal calf is INCOMPETENT for greater than 0.5 GSV INCOMPETENT throughout for greater than 0.5 seconds and measures 0.34 x 0.33 cm. seconds. ASV 2 proximal calf is INCOMPETENT for greater than ASV mid calf is INCOMPETENT for greater than 0.5 0.5 seconds and measures 0.37 x 0.40 cm. seconds and measures 0.37 x 0.43 cm. SSV mid calf is INCOMPETENT for greater than 0.5 ASV distal calf is INCOMPETENT for greater than 0.5 seconds and measures 0.41 x 0.44 cm. seconds and measures 0.19 x 0.21 cm. Procedure SSV mid calf is competent and measures 0.28 x 0.30 This is a venous duplex using B-mode, color flow and cm. spectral Doppler. Exam performed in department. Patient was scanned in reverse Trendelenburg position during reflux assessment. VL/Venous Duplex US - Jose Daniel Extrem Interpretation Summary Chronic deep vein thrombosis noted in the left femoral vein, popliteal vein, tibioperoneal trunk vein, gastrocnemius vein. The bilateral great saphenous veins appear patent and compressible segmentally. Positive for reflux in the right saphenofemoral junction, great saphenous vein throughout, accessory saphenous vein from junction, accessory saphenous veins in calf. Positive for reflux on the left femoral vein, popliteal vein, saphenofemoral junction, great saphenous vein throughout, accessory saphenous veins in calf. Ordering Physician: Salima Morin Referring Physician: Randa Joseph Performed By: Delisa Pak RVT 03/14/25 1525 Date Murray Mckee MD CC: XENA Solorio; Dr. Randa Joseph, Date Dictated: 03/14/25 1006 Date Transcribed: 03/14/251524 Care Rep: Signed Normal [facility] Venous duplex ultrasound rep ortOrdered By: Murray Mckee on 03-14-2025 US Vein [facility] Cardi[facility] Services [address] [place] [address] Venous Duplex US - Jose Daniel Extrem 03/14/25 1006 MR#: [id number] Acct: [id number] Name: WELLINGTON GONZALEZ Rep #:[id number] : 1945 80 From: Murray Fernando Attending Dr: XENA Solorio Stat us: REG CLI Ordering Dr: Salima Morin Date: Location: [facility] Sex: M C Admitted: Reason For Study Reason For Study: Bilateral leg swelling RIGHT LEFT CFV is compressible, spontaneous, phasic, competent CFV is compressible, spontaneous, phasic, competent, and demonstrates normal augmentation. and demonstrates normal augmentation. FV is compressible, spontaneous, phasic, competent Lt FV is partially compressible with bright and demonstrates normal augmentation. intraluminal echoes consistent with chronic DVT and POP V is compressible, spontaneous, phasic, competent INCOMPETENT for greater than 1.0 second and demonstrates normal augmentation. Lt PopV is partially compressible with bright T/P Trunk is compressible. intraluminal echoes consistent with chronic DVT and PTV is compressible. INCOMPETENT for greater than 1.0 second RT PerV is compressible. Lt T/P Trunk and Lt GastrocV are partially SFJ is INCOMPETENT and measures 0.83 cm. compressible with bright intraluminal echoes GSV proximal thigh measures 0.40 x 0.43 cm. consistent with chronic DVT. GSV at knee measures 0.34 x 0.32 cm. PTV is compressible. GSV INCOMPETENT throughout for greater than 0.5 LT PerV is compressible. seconds. SFJ is INCOMPETENT and measures 0.73 cm. ASV from junction is INCOMPETENT for greater than 0.5 GSV proximal thigh measures 0.44 x 0.41 cm. seconds and measures 0.31 x 0.28 cm GSV at knee measures 0.47 x 0.47 cm. ASV proximal calf is INCOMPETENT for greater than 0.5 GSV INCOMPETENT throughout for greater than 0.5 seconds and measures 0.34 x 0.33 cm. seconds. ASV 2 proximal calf is INCOMPETENT for greater than ASV mid calf is INCOMPETENT for greater than 0.5 0.5 seconds and measures 0.37 x 0.40 cm. seconds and measures 0.37 x 0.43 cm. SSV mid calf is INCOMPETENT for greater than 0.5 ASV distal calf is INCOMPETENT for greater than 0.5 seconds and measures 0.41 x 0.44 cm. seconds and measures 0.19 x 0.21 cm. Procedure SSV mid calf is competent and measures 0.28 x 0.30 This is a venous duplex using B-mode, color flow and cm. spectral Doppler. Exam performed in department. Patient was scanned in reverse Trendelenburg position during reflux assessment. VL/Venous Duplex US - Jose Daniel Extrem Interpretation Summary Chronic deep vein thrombosis noted in the left femoral vein, popliteal vein, tibioperoneal trunk vein, gastrocnemius vein. The bilateral great saphenous veins appear patent and compressible segmentally. Positive for reflux in the right saphenofemoral junction, great saphenous vein throughout, accessory saphenous vein from junction, accessory saphenous veins in calf. Positive for reflux on the left femoral vein, popliteal vein, saphenofemoral junction, great saphenous vein throughout, accessory saphenous veins in calf. Ordering Physician: Salima Morin Referring Physician: Randa Joseph Performed By: Delisa Pak RVT 03/14/25 1525 Date _ Murray Mckee MD CC: XENA Solorio; Dr. Randa Joseph, ~ Date Dictated: 03/14/25 1006 Date Transcribed: 03/14/251524 Care Rep: Signed [facility] Work Phone: Wound Ctr History AND Physic tamir 03-04-2025 Wound Ctr History & Physical [facility] [address] [place] [address] H P Exam - Wound Care 03/04/25 1851 MR#: [id number] Acct: [id number] Name: WELLINGTON GONZALEZ Rep #: [id number] : 1945 80 From: Jose L Nagel MD PCP: Dr. Randa Joseph DO Status:PRE CLI Location: [facility] History of Present Illness Date of Service: 03/02/25 Chief Complaint: Left medial ankle wound History of Wound: The patient is seen today as a courtesy visit for Dr. Merrill Burns, the patient's regular Wound Center provider. The patient's medical history is as recently documented below. Patient is a 79-year-old male who presents to the wound care center with recurring left lower extremity medial ankle wound. He has PMHx of recurring left lower extremity ulceration secondary to chronic venous insufficiency, history of DVT, obesity, JOSHUA, iron deficient anemia, delayed wound healing, and asthma. He states that he does have compression stockings and continues to wear them. He had been following in the wound care center for a deep ulceration to the medial aspect of the left lower extremity overlying the neurovascular bundle. He did go on to heal this ulceration as of 12/31/[address] Mckee for venogram. He has continued wearing compression stockings however states that while in the shower he did notice a scab of the left medial ankle and after showering applied antibiotic ointment and Band-Aid which later then the scab became soft and opened a small wound. He states that he did see his PCP who did obtain cultures and placed him on oral antibiotic. He was then referred to the wound care center for further follow-up. He denies any further trauma to the site. States that the specific site is recurrent with breakdown of skin. Denies N/V/F/chills. No further complaints. 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 Venous stasis ulcer JOSHUA (obstructive sleep apnea) History of back problems Fatigue Weight loss Lab test positive for detection of COVID-19 virus ( 04/2020) Left femoral shaft fracture Osteopenia 2012 femur fracture [facility] DVT (deep venous thrombosis) Restless leg syndrome Iron deficiency anemia GERD (gastroesophageal reflux disease) Celiac disease Asthma Home Medications ???Medication ???Instructions ???Recorded ???Last Taken ???Type pantoprazole 40 mg tablet,delayed 40 mg PO QHS gerd 04/03/14 History release tamsulosin 0.4 mg capsule 0.4 mg PO QHS Enlarged prostate 01/06/24 History ergocalciferol (vitamin D2) 1,250 50,000 unit PO WE 10/21/19 Unknow n History mcg (50,000 unit) capsule benralizumab 30 mg/mL subcutaneous 30 mg subcut Q4W #1 mL 12/28/20 Unknown Rx syringe (Fasenra) levothyroxine 50 mcg tablet 100 mcg PO DAILY 03/21/22 01/06/24 History fluticasone propionate 50 2 spray NASAL BID PRN Congestion 0 03/25/22 Unknown Rx mcg/actuation nasal #16 grams spray,suspension pramipexole 1.5 mg tablet 1.5 mg PO DAILY 11/25/23 Unknown H istory finasteride 5 mg tablet 5 mg PO DAILY 01/05/24 Unknown His tory bimatoprost 0.03 % eye drops 1 drp ophthalmic (eye) QDAY Unknown History denosumab 60 mg/mL subcutaneous 60 mg subcut [id number] 10/04/24 Unk nown History syringe (Prolia) diclofenac potassium 50 mg tablet 50 mg PO TID PRN pain 10/04/24 Un known History fluticasone 232 mcg-salmeterol 14 1 inh inhalation BID #1 ea Unknown Rx mcg/actuation breath activated powdr ferrous gluconate 324 mg (37.5 mg 324 mg PO BID #60 tabs 12/07/24 U nknown Rx iron) tablet Allergy/AdvReac Type Severity Reaction Status Date / Time gluten AdvReac Other Verified 03/01/25 09:40 Family History Father prostate cancer Surgical History History of colonoscopy ( 09/24/20) History of hernia repair History of spinal surgery ( 2017) History of repair of hip fracture History of cholecystectomy colonoscopy Social History Smoking Status: Former smoker alcohol intake: never substance use type: does not use Physical Exam Const alert, oriented x3 and no apparent distress General Appearance: cooperative, comfortable and well developed Orientation / Consciousness: awake, oriented to person, oriented to place and oriented to time Exam Limitations: no limitations HEENT normocephalic and head/scalp atraumatic Head and Scalp: normal to inspection, normocephalic and atraumatic Face and Sinus: normal facial exam Nose: external nose normal External Ear: external ears normal Ey (more content not included)... Normal [facility] MR/BMSSandeep 03-01-2025 MR/BMSALEX [facility] Surgery [address] [place], [place] [id number] OFFICE VISIT Date of Service: 03/01/25 MR#: [id number] Acct: [id number] Name: WELLINGTON GONZALEZ Rep #: [id number] : 1945 Provider: XENA Solorio Age/Sex: 80/M Location: [facility] [place].[facility] Status: Signed Intake Vital Signs 01/24/25 14:06 03/01/25 09:39 Height 6 ft Weight: 218 lb BP 121/66 H Blood Pressure Location Rt brachial Position Sitting Respiration 16 Pulse 64 Pulse Source Monitor Temp 98.2 F Temp Source Temporal Pulse Oximetry (%) 97 Oxygen Delivery Method room air Intake Visit Reasons: Dr. Burns wanted pt seen Is patient in pain?: No Allergies gluten Adverse Reaction (Verified 03/01/25 09:40) Other Medications ???Medication ???Instructions ???Recorded ???Confirmed ???Type pantoprazole 40 mg tablet,delayed 40 mg PO QHS gerd 04/03/14 History release tamsulosin 0.4 mg capsule 0.4 mg PO QHS Enlarged prostate 03/01/25 History ergocalciferol (vitamin D2) 1,250 50,000 unit PO WE 10/21/19 History mcg (50,000 unit) capsule benralizumab 30 mg/mL subcutaneous 30 mg subcut Q4W #1 mL 12/28/20 03/01/25 Rx syringe (Fasenra) levothyroxine 50 mcg tablet 100 mcg PO DAILY 03/21/22 03/01/25 History fluticasone propionate 50 2 spray NASAL BID PRN Congestion 0 03/25/22 03/01/25 Rx mcg/actuation nasal #16 grams spray,suspension pramipexole 1.5 mg tablet 1.5 mg PO DAILY 11/25/23 03/01/25 History finasteride 5 mg tablet 5 mg PO DAILY 01/05/24 03/01/25 Hi story bimatoprost 0.03 % eye drops 1 drp ophthalmic (eye) QDAY 03/01/25 History denosumab 60 mg/mL subcutaneous 60 mg subcut [id number] 10/04/24 History syringe (Prolia) diclofenac potassium 50 mg tablet 50 mg PO TID PRN pain 10/04/24 History fluticasone 232 mcg-salmeterol 14 1 inh inhalation BID #1 ea 03/01/25 Rx mcg/actuation breath activated powdr ferrous gluconate 324 mg (37.5 mg 324 mg PO BID #60 tabs 12/07/24 0 03/01/25 Rx iron) tablet Have you fallen in the past year?: Yes PFSH Medical History JOSHUA (obstructive sleep apnea) History of back problems Fatigue Weight loss Lab test positive for detection of COVID-19 virus ( 04/2020) Left femoral shaft fracture Osteopenia 2012 femur fracture [facility] DVT (deep venous thrombosis) Restless leg syndrome Iron deficiency anemia GERD (gastroesophageal reflux disease) Celiac disease Asthma Surgical History History of colonoscopy ( 09/24/20) History of esophagogastroduodenoscopy (EGD) ( 09/24/20) History of hernia repair History of spinal surgery ( 2016) History of repair of hip fracture History of cholecystectomy colonoscopy Family History Father prostate cancer Social History Smoking Status: Former smoker alcohol intake: never substance use type: does not use HPI HPI HPI: WELLINGTON GONZALEZ, is a 80 M who presents to the office today for follow-up of his venous insufficiency. He has unfortunately had recent recurrent of L medial ankle/distal calf wound; this is the 3rd recurrence of wound in this general area. He had been wearing compression stockings when the wound recurred, has continued compression with the wound center. He does not recall any specific injury to the area to provoke the wound, though admits he could have bumped his leg. He has seen improvement with local wound care to this point. Recall that he has had prior LLE venous reflux study 02/2024 which demonstrated chronic DVT in the L femoral, popliteal, TP trunk, and gastrocnemius veins and reflux in the GSV, ASV, and SSV. He also underwent venogram 01/06/2024 which was negative for any significant central venous reflux. He reports he has also noticed some increased RLE edema over the last few months; fortunately, no wounds in the RLE. ROS General General: Yes fatigue; No weight change, appetite, colon cancer, breast cancer or weakness HEENT HEENT: No difficulty swallowing, eye injury, eye surgery, swollen glands or hoarseness Endo Endocrine: No thyroid disease, diabetes mellitus, thyroid cancer, Hair loss, heat intolerance or cold intolerance Skin Skin: Yes rash; No changing moles Musc Musculoskeletal: Yes back problems and arthritis; No rheumatoid arthritis, gout or joint pain Cardio Cardiovascular: No murmur, pacemaker, heart disease, atrial fibrillation, high blood pressure, heart attack, heart stent, palpitations, shortness of breath with exertion or chest pain Psych Psychiatric: No depre (more content not included)... Normal [facility] Culture, Anaerobic Any [facility] luz elena 02-19-2025 CUAN LEFT LOWER LEG ULCER Studies have confirmed that Anaerobic Gram Positive Cocci are routinely SUSCEPTABLE to Penicillin and generally susceptible to Beta-lactams and Beta-lactamase inhibitors, Cephalosporins, Carbapenems and Metronidazole. They are showing increased RESISTANCE to Clindamycin Anaerobic cocci Normal [facility] Comment on above: Performed By: #### M 100.3000, M100.4001, M100.2000 ####[facility] [address] [place], [address] Venous Duplex US, Unilateral on 02-16-2025 Venous Duplex US, Unilateral [facility] [address] [place] [address] Venous Duplex US, Unilateral 02/16/25 1018 MR#: [id number] Acct: [id number] Name: WELLINGTON GONZALEZ Rep #: [id number] : 1945 79 From: Jose L Nagel MD Attending Dr: Merrill Burns DPM Status: REG RCR Ordering Dr: Merrill Burns DPDontae Date: 02/16/25 Location: Sex: M C Admitted: Reason For Study Reason For Study: Wound, R/O DVT RIGHT LEFT CFV is compressible, spontaneous, phasic, competent GSV is normal. and demonstrates normal augmentation. CFV is compressible, spontaneous, phasic, competent, Procedure and demonstrates normal augmentation. This is a venous duplex using B-mode, color flow and FV is compressible, spontaneous, phasic, competent spectral Doppler. and demonstrates normal augmentation. Exam performed in department. POP V is compressible, spontaneous, phasic, competent A preliminary report was called and/or faxed to and demonstrates normal augmentation. Keyla Burns DPM. T/P Trunk is compressible. PTV is compressible. LT PerV is compressible. VL/Venous Duplex US, Unilateral Interpretation Summary Deep veins of the left lower extremity are patent and compressible segmentally. There is no evidence of left lower extremity deep vein thrombosis. Valvular competence appears intact within the proximal deep venous system on the left . The left great saphenous vein appears patent and compressible segmentally. The right common femoral vein is patent and compressible . Ordering Physician: Merrill Burns Referring Physician: Randa Joseph Performed By: Ryanne Rivera, RVT 02/16/255 Date Jose L Nagel MD CC: JOVANY Bruns; Dr. Randa Joseph, Date Dictated: 02/16/258 Date Transcribed: 02/16/252254 Care Rep: Signed Normal [facility] Venous duplex ultrasound rep ortOrdered By: Jose L Nagel on 02-16-2025 US Vein [facility] Cardiovascular Services [address] [place] [address] Venous Duplex US, Unilateral 02/16/25 1018 MR#: [id number] Acct: [id number] Name: WELLINGTON GONZALEZ Rep #:[id number] : 1945 79 From: Jose L Nagel MD Attending Dr: Merrill Burns DPM Status: REG RCR Ordering Dr: Merrill Burns DPM Date : 02/16/25 Location: Sex: M C Admitted: Reason For Study Reason For Study: Wound, R/O DVT RIGHT LEFT CFV is compressible, spontaneous, phasic, competent GSV is normal. and demonstrates normal augmentation. CFV is compressible, spontaneous, phasic, competent, Procedure and demonstrates normal augmentation. This is a venous duplex using B-mode, color flow and FV is compressible, spontaneous, phasic, competent spectral Doppler. and demonstrates normal augmentation. Exam performed in department. POP V is compressible, spontaneous, phasic, competent A preliminary report was called and/or faxed to and demonstrates normal augmentation. Keyla Burns DPM. T/P Trunk is compressible. PTV is compressible. LT PerV is compressible. VL/Venous Duplex US, Unilateral Interpretation Summary Deep veins of the left lower extremity are patent and compressible segmentally. There is no evidence of left lower extremity deep vein thrombosis. Valvular competence appears intact within the proximal deep venous system on the left . The left great saphenous vein appears patent and compressible segmentally. The right common femoral vein is patent and compressible . Ordering Physician: Merrill Burns Referring Physician: Randa Joseph Performed By: Ryanne Rivera, RVT 02/16/25 2680 Date _ Jose L Nagel MD CC: JOVANY Burns; Dr. Randa Joseph DO ~ Date Dictated: 02/16/25 1018 Date Transcribed: 05/01/25 2255 Care Rep: Signed [facility] Work Phone: Wound Ctr History AND Physic tamir 02-16-2025 Wound Ctr History & Physical [facility] [address] [place] [address] H P Exam - Wound Care 02/16/25 1339 MR#: [id number] Acct: [id number] Name: WELLINGTON GONZALEZ Rep #: [id number] : 1945 79 From: Merrill Burns DPM PCP: Dr. Randa Joseph, DO Status:REG RCR Location: History of Present Illness Date of Service: 02/16/25 Chief Complaint: Left medial ankle wound History of Wound: Patient is a 79-year-old male who presents to the wound care center with recurring left lower extremity medial ankle wound. He has PMHx of recurring left lower extremity ulceration secondary to chronic venous insufficiency, history of DVT, obesity, JOSHUA, iron deficient anemia, delayed wound healing, and asthma. He states that he does have compression stockings and continues to wear them. He had been following in the wound care center for a deep ulceration to the medial aspect of the left lower extremity overlying the neurovascular bundle. He did go on to heal this ulceration as of 12/31/[address] Mckee for venogram. He has continued wearing compression stockings however states that while in the shower he did notice a scab of the left medial ankle and after showering applied antibiotic ointment and Band-Aid which later then the scab became soft and opened a small wound. He states that he did see his PCP who did obtain cultures and placed him on oral antibiotic. He was then referred to the wound care center for further follow-up. He denies any further trauma to the site. States that the specific site is recurrent with breakdown of skin. Denies N/V/F/chills. No further complaints. COUNT INCLUDES THE [facility] Medical History JOSHUA (obstructive sleep apnea) History of back problems Fatigue Weight loss Lab test positive for detection of COVID-19 virus ( 04/2020) Left femoral shaft fracture Osteopenia 2012 femur fracture [facility] DVT (deep venous thrombosis) Restless leg syndrome Iron deficiency anemia GERD (gastroesophageal reflux disease) Celiac disease Asthma Home Medications ???Medication ???Instructions ???Recorded ???Last Taken ???Type pantoprazole 40 mg tablet,delayed 40 mg PO QHS gerd 04/03/14 History release tamsulosin 0.4 mg capsule 0.4 mg PO QHS Enlarged prostate 01/06/24 History ibuprofen 200 mg capsule 200 mg PO BID PRN Pain 09/10/18 Un known History ergocalciferol (vitamin D2) 1,250 50,000 unit PO WE 10/21/19 Unknow n History mcg (50,000 unit) capsule benralizumab 30 mg/mL subcutaneous 30 mg subcut Q4W #1 mL 12/28/20 Unknown Rx syringe (Fasenra) levothyroxine 50 mcg tablet 100 mcg PO DAILY 03/21/22 01/06/24 History fluticasone propionate 50 2 spray NASAL BID PRN Congestion 0 03/25/22 Unknown Rx mcg/actuation nasal #16 grams spray,suspension albuterol sulfate 90 mcg/actuation 1 - 2 puff inhalation Q4H PRN ME N 09/22/23 Unknown Rx aerosol inhaler Sob /Or Wheezing #8.5 grams pramipexole 1.5 mg tablet 1.5 mg PO DAILY 11/25/23 Unknown H istory finasteride 5 mg tablet 5 mg PO DAILY 01/05/24 Unknown His tory bimatoprost 0.03 % eye drops 1 drp ophthalmic (eye) QDAY Unknown History denosumab 60 mg/mL subcutaneous 60 mg subcut [id number] 10/04/24 Unk nown History syringe (Prolia) diclofenac potassium 50 mg tablet 50 mg PO TID PRN pain 10/04/24 Un known History fluticasone 232 mcg-salmeterol 14 1 inh inhalation BID #1 ea Unknown Rx mcg/actuation breath activated powdr ferrous gluconate 324 mg (37.5 mg 324 mg PO BID #60 tabs 12/07/24 U nknown Rx iron) tablet Allergy/AdvReac Type Severity Reaction Status Date / Time gluten AdvReac Other Verified 02/16/25 09:21 Family History Father prostate cancer Surgical History History of colonoscopy ( 09/24/20) History of esophagogastroduodenoscopy (EGD) ( 09/24/20) History of hernia repair History of spinal surgery ( 2017) History of repair of hip fracture History of cholecystectomy colonoscopy Social History Smoking Status: Former smoker alcohol intake: never substance use type: does not use ROS Constitutional Constitutional: Denies chills, fatigue or fever(s) Eyes Eyes: Denies blurry vision, change in vision or double vision ENT HEENT: Denies dysphagia, nasal congestion or nasal discharge Cardiovascular Cardiovascular: Denies chest pain, claudication or palpitations Respiratory/Chest Respiratory/Chest: Denies cough, shortness of breath at rest or wheezing Gastrointestinal Gastrointestinal: Denies abdominal pain, constipation, diarrhea, nausea or vomiting Genitourinary Genitourinary: Denies dysuria, hematu (more content not included)... Normal [facility] Wound Cultureon 02-16-2025 WC LEFT LOWER LEG ULCER #2 Clinical correlation necessary, Possible skin contamination. Wound Culture #3 Susceptibility not normally performed on this organism. Wound Culture Wound Culture Streptococcus agalactiae (B) Amount Growth 2+ Staphylococcus epidermidis Staphylococcus epidermidis CMIN Amount Growth 2+ Corynebacterium minutissimum Ampicillin Islt CRISTY <=0.25 cefTRIAXone Islt CRISTY <=0.12 S Clindamycin Islt CRISTY >=1 Clindamycin.induced Susc Islt NEG Linezolid Islt CRISTY <=2 S Vancomycin Islt CRISTY 0.5 S Staphylococcus epidermidis: REACTION cefOXitin Susc Islt NEG Doxycycline Islt CRISTY <=0.5 S Clindamycin Islt CRISTY 0.25 Clindamycin.induced Susc Islt NEG Erythromycin Islt CRISTY >=8 R Gentamicin Islt CRISTY <=0.5 S Linezolid Islt CRISTY 1 S Oxacillin Susc Islt <=0.25 S Tetracycline Islt CRISTY <=1 S TMP SMX Islt CRISTY <=10 S Vancomycin Islt CRISTY 1 S Normal [facility] Comment on above: Performed By: #### M 100.3000, M100.4001, M100.2000 ####[facility] [address] [place], [address] Gram Stainon 02-14-2025 GS LEFT LOWER LEG ULCER Gram Stain 1+ Gram positive cocci Rare Gram positive rods Rare Red Blood Cells Normal [facility] Comment on above: Performed By: #### M 100.3000, M100.4001, M100.2000 ####[facility] [address] [place], [address] Anaerobic cultureOrdered By: Randa Joseph on 02-13-2025 Bacteria identified Anaer cx Nom (Unsp spec) Anaerobic cocci Abnormal [facility] Gram stainOrdered By: Randa prieto on 02-13-2025 Microscopic observation Gram stain Nom (Unsp spec) [facility] Routine wound cultureOrdered By: Randa Joseph on 02-13-2025 Microbial culture, routine Streptococcus agalactiae (B) Abnormal [facility] Microbial culture, routine Staphylococcus epidermidis Abnormal [facility] Microbial culture, routine Corynebacterium minutissimum Abnormal [facility] PT D/C Summary (1)on 025 PT D/C Summary (1) [facility] Physical Therapy [facility] [place] [address] / REHABILITATION SERVICES DISCHARGE SUMMARY MR#: [id number] Acct: [id number] Name: WELLINGTON GONZALEZ Rep #: [id number] : 1945 79 From: Joan Muñoz [facility] Referring Dr.: Dr. Randa Joseph DO Status: RE G RCR Insurance: MEDICARE PART A B [facility] Discharge Summary D/C summary: It has been my pleasure to treat WELLINGTON Allison KARSONISELA referred by Dr. Randa Joseph DO, with the diagnosis of Pain in shoulder for a total of 19 visit(s). Discharge Date: 12/28/24 Please see the following information for a summary of their discharge status. Subjective Subjective: Pt reports that he is about 60% better. His pain is not gone. He reports that he thinks it is the muscles. He reports that he thinks about his posture a lot more than he used too. Pain R shoulder: Pain Intensity (Out of 10): 3 L shoulder pain: Pain Intensity (Out of 10): 1 neck pain: Pain Intensity (Out of 10): 3 Overall Improvement % Improvement: 60 Objective Objective/Function: Posture: pt has better posture throughout treatment sessions and reports that he is more aware of his posture UE AROM: R shoulder flex 142 and L 139 (increase pain) R shoulder ABD 155 and L 141 (increase pain) R shoulder ER 55 and L 40 UE MMT: R shoulder flex 14 and L 13.2 R shoulder ABD 12.9 and L 9.6 R shoulder ER 10.7 and L 7.9 R shoulder IR 11.6 and L 6.6) Goals Goal 1:: I HEP Goal 2:: Increase L shoulder AROM (at the time of the eval: UE AROM: R shoulder flex 142 and L 118 (increase pain) R shoulder ABD 140 and L 120 (increase pain) R shoulder ER 55 and L 40 R shoulder IR T12 and L T12) Goal Progress: Goal Met Goal 3:: Increase L shoulder strength (at the time of the eval: UE MMT: R shoulder flex 8.5 and L 6.1 R shoulder ABD 8 and L 4.7 R shoulder ER 10.7 and L 5.9 R shoulder IR 11.6 and L 6.6) Goal Progress: Goal Met Goal 4:: Sit with upright posture during treatment sessions Goal Progress: Progressing Plan Plan: DC PT to [facility] and back to Dr about his neck. D/C Information Discharge Comments: DC PT to [facility] d/c sentence: If there are questions or concerns regarding this patient's physical therapy, please feel free to call me at [phone]. Thank you for the referral of this patient. Sincerely, Joan Muñoz, MPT Balance/Gait/Functional tests Balance/Special Test Scores Quick DASH Score: 25.0000 Improvement % Improvement: 60 12/28/24 1011 CC: Dr. Randa Joseph DO Signed Normal [facility] Vitamin D,25 Hydroxyon 12-08 Vitamin D 25-OH 65.2 ng/mL Normal [facility] Comment on above: Order Comment: MARIO GOULD ORDERED FERRITINALL OTHERS LABS ORDERED BY DR Cece MOON Result Comment: Kamille min D 25(OH) Status Range Deficiency <20 ng/mL (50nmol/L) Insufficiency 20 - 30 ng/mL (50 - 75 nmol/L) Sufficiency 30 - 100 ng/mL (75 - 250 nmol/L) Toxicity >100 ng/mL (>250 nmol/L) Performed By: #### L 503.6550, L506.1000, L501.9520, L500.2500 ####[facility] [address] [place], [address] [id number] DOrdered By: Charisma Gould on 12-07-2024 Vitamin D 25-Hydroxy 65.2 ng/mL [facility] Comment on above: Vitamin D 25(OH) Sta tus Range Deficiency <20 ng/mL (50nmol/L) Insufficiency 20 - 30 ng/mL (50 - 75 nmol/L) Sufficiency 30 - 100 ng/mL (75 - 250 nmol/L) Toxicity >100 ng/mL (>250 nmol/L) Basic Metabolic Profile (BMP )on 12-07-2024 BUN/CRE 24.9 RATIO High 10-20 [facility] Comment on above: Order Comment: MARIO GOULD ORDERED FERRITINALL OTHERS LABS ORDERED BY DR Cece MOON Performed By: #### L 503.6550, L506.1000, L501.9520, L500.2500 ####[facility] [address] [place], [address] CA,Total 9.1 mg/dL Normal 8.5-10.1 [facility] Comment on above: Order Comment: MARIO GOULD ORDERED FERRITINALL OTHERS LABS ORDERED BY DR Cece MOON Performed By: #### L 503.6550, L506.1000, L501.9520, L500.2500 ####[facility] [address] [place], [address] Chloride [Moles/Vol] 110 mmol/L High 98-107 [facility] Comment on above: Order Comment: MARIO GOULD ORDERED FERRITINALL OTHERS LABS ORDERED BY DR Cece MOON Performed By: #### L 503.6550, L506.1000, L501.9520, L500.2500 ####[facility] [address] [place], [address] CO2 [Moles/Vol] 26.0 mmol/L Normal 21.0-32.0 [facility] Comment on above: Order Comment: MARIO GOULD ORDERED FERRITINALL OTHERS LABS ORDERED BY DR Cece MOON Performed By: #### L 503.6550, L506.1000, L501.9520, L500.2500 ####[facility] [address] [place], [address] Creatinine [Mass/Vol] 0.80 mg/dL Normal 0.70-1.30 [facility] Comment on above: Order Comment: MARIO GOULD ORDERED FERRITINALL OTHERS LABS ORDERED BY DR Cece MOON Result Comment: The validity of the calculated GFR GFRAA in patients over 70 years has not been determined. Clinical correlation is essential. Performed By: #### L 503.6550, L506.1000, L501.9520, L500.2500 ####[facility] [address] [place], [address] EST GFR - AA 120 mL/min Normal >60 [facility] Comment on above: Order Comment: MARIO GOULD ORDERED FERRITINALL OTHERS LABS ORDERED BY DR Cece MOON Result Comment: Afri can Ukrainian GFR Calc Performed By: #### L 503.6550, L506.1000, L501.9520, L500.2500 ####[facility] [address] [place], [address] GAP 6 Normal 5-15 [facility] Comment on above: Order Comment: MARIO GOULD ORDERED FERRITINALL OTHERS LABS ORDERED BY DR Cece MOON Performed By: #### L 503.6550, L506.1000, L501.9520, L500.2500 ####[facility] [address] [place], [address] GFR/1.73 sq M.predicted among non-blacks MDRD (S/P/Bld) [Vol rate/Area] 99 mL/min/{1.73_m2} Normal >60 [facility] Comment on above: Order Comment: MARIO GOULD ORDERED FERRITINALL OTHERS LABS ORDERED BY DR Cece MOON Result Comment: Non- GFR Calc Performed By: #### L 503.6550, L506.1000, L501.9520, L500.2500 ####[facility] [address] [place], [address] Glucose [Mass/Vol] 106 mg/dL Normal 74-106 [facility] Comment on above: Order Comment: MARIO GOULD ORDERED FERRITINALL OTHERS LABS ORDERED BY DR Cece MOON Result Comment: Fast ing Glucose result from 100 to 125 mg/dL suggests IMPAIRED HOMEOSTASIS per A.D.A. criteria. Performed By: #### L 503.6550, L506.1000, L501.9520, L500.2500 ####[facility] [address] [place], [address] Potassium [Moles/Vol] 3.7 mmol/L Normal 3.5-5.1 [facility] Comment on above: Order Comment: MARIO GOULD ORDERED FERRITINALL OTHERS LABS ORDERED BY DR Cece MOON Performed By: #### L 503.6550, L506.1000, L501.9520, L500.2500 ####[facility] [address] [place], [address] Sodium [Moles/Vol] 142 mmol/L Normal 136-145 [facility] Comment on above: Order Comment: MARIO GOULD ORDERED FERRITINALL OTHERS LABS ORDERED BY DR Cece MOON Performed By: #### L 503.6550, L506.1000, L501.9520, L500.2500 ####[facility] [address] [place], [address] Urea nitrogen [Mass/Vol] 20 mg/dL High 7-18 [facility] Comment on above: Order Comment: MARIO GOULD ORDERED FERRITINALL OTHERS LABS ORDERED BY DR Cece MOON Performed By: #### L 503.6550, L506.1000, L501.9520, L500.2500 ####[facility] [address] [place], [place], [address] Blood urea nitrogen (BUN)/cr eatinine ratioOrdered By: TODD Gould on 12-07-2024 Urea nitrogen/Creatinine [Mass ratio] 24.9 mg/mg High 10-20 [facility] Carbon dioxide measurementOr dered By: TODD Gould on 12-07-2024 CO2 [Moles/Vol] 26.0 mmol/L 21.0-32.0 [facility] Chloride measurementOrdered By: TODD Gould on 12-07-2024 Chloride [Moles/Vol] 110 mmol/L High 98-107 [facility] Estimated glomerular filtrat ion rate (GFR) AmericanOrdered By: TODD Gould on 12-07-2024 Estimated GFR (MDRD) Amer 120 mL/min >60 [facility] Comment on above: GFR Calc Ferritinon 12-07-2024 Ferritin [Mass/Vol] 30 ng/mL Normal 26-388 [facility] Comment on above: Order Comment: MARIO GOULD ORDERED FERRITINALL OTHERS LABS ORDERED BY DR Cece MOON Performed By: #### L 503.6550, L506.1000, L501.9520, L500.2500 ####[facility] [address] [place], [place], [address] Ferritin measurementOrdered By: TODD Gould on 12-07-2024 Ferritin [Mass/Vol] 30 ng/mL 26-388 [facility] Glomerular filtration rate ( GFR) estimationOrdered By: TODD Gould on 12-07-2024 Estimated GFR (MDRD) Non-Af Amer 99 mL/min >60 [facility] Comment on above: Non- GFR Calc GFR/1.73 sq M.predicted among non-blacks MDRD (S/P/Bld) [Vol rate/Area] 99 mL/min/{1.73_m2} >60 [facility] Comment on above: Non- GFR Calc Glucose measurementOrdered B y: TODD Gould on 12-07-2024 Glucose [Mass/Vol] 106 mg/dL 74-106 [facility] Comment on above: Fasting Glucose resu lt from 100 to 125 mg/dL suggests IMPAIRED HOMEOSTASIS per A.D.A. criteria. Potassium measurementOrdered By: TODD Gould on 12-07-2024 Potassium [Moles/Vol] 3.7 mmol/L 3.5-5.1 [facility] Pulmonary Visit Reporton Pulmonary Visit Report [facility] [place] [address] [place] [address] OFFICE VISIT Date of Service: 12/07/24 MR#: [id number] Acct: [id number] Name: WELLINGTON GONZALEZ Rep #: [id number] : 1945 Provider: Ivelisse Gould NP Age/Sex: 79/M Location: [facility] [place] [facility].PMW Status: Signed Assessment and Plan Assessment and Plan (1) Severe persistent asthma, uncomplicated: Status: Chronic Plan: The partially reversible mild large airway obstructive ventilatory defect is likely due to the fact that patient has not been compliant with use of ICS/LABA. I have educated the patient on the importance of compliance with a daily maintenance inhaler especially while using a biologic for treatment of severe persistent asthma. I have also educated the patient on the compliant use of this inhaler in relation to ER visits. The patient understands that without the use of this inhaler he will be more susceptible to future ED visits/exacerbation of his asthma. I have urged him to to begin compliant use of ICS/LABA therapy. Continue with use of Fasenra. Continue with use of albuterol to be used as needed for worsening symptoms. Notify this practice for worsening symptoms or symptoms of bronchitis. (2) JOSHUA (obstructive sleep apnea): Status: Chronic Plan: Since replacing his supplies airleak has improved, and his AHI has also improved since replacing his supplies. There is good control of sleep apnea. The patient is experiencing sleep maintenance insomnia and I believe that this is related to possibly low ferritin levels as he has had a recent CBC which shows anemia and I am concerned that his ferritin level may be low today which could be contributing to leg symptoms being active and awakening him. I recommend that he continue on BiPAP at 10 over 6 cm. At this point a retitration study is not recommended. Repeat compliance download on follow-up. (3) Solitary pulmonary nodule: Status: Acute Plan: Incidental finding on CTA. I have recommended a noncontrast chest CT 12 months from previous imaging as the patient has low risk factors. Orders: Orders Ferritin Today E61.1 - Iron deficiency Chest without Contrast 11 Months R91.1 - Solitary pulmonary nodule Plan Details Follow Up: 3-4 months (LMR) HPI HPI Comments Details: Patient is a 79-year-old male who presents to the clinic today for a routine scheduled follow up visit due to underlying asthma and JOSHUA. He is ambulatory and currently on room air. If you recall, the patient was initially referred to our office in November 2019 for the evaluation of asthma. At that time, the patient had reported that he was initially diagnosed with asthma in the early . The patient does have a history of gastroesophageal reflux disease. He was previously being followed by Dr. Molina at [facility]. The patient does have a history of peripheral eosinophilia, dating as far back as 2011 in our system. In addition to the aforementioned, the patient reported a history of seasonal allergic rhinitis along with nasal polyposis and sinus disease, for which he has been managed in the past by Dr. Morrow of ENT. 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 He is now semiretired working in the [employer] industry. He does have a prior smoking history of approximately 9 pack years having quit completely in 1968. He also reported prior secondhand smoke exposure. The patient does currently keep 1 dog as a pet in his home environment. 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 A 6-minute walk test was also completed at that time and revealed no need for the use of supplemental oxygen with exertion. Today the patient denies cough. He denies shortness of breath wheeze congestion, chest pain chest tightness. He denies fever, chills, body aches. He has remained compliant with Fasenra injections. He has not experienced injection site reaction and reports that this medication has very effective for him. At last visit due to the high cost of Symbicort he was placed on generic air duo. He reports that he has not utilized this inhaler on a routine basis, he indicates that he has used approximately half the canister. He has not routinely used albuterol on a daily basis. Unfortunately he presented to the ER on November 05, 2024 for shortness of breath. He had a CTA which was negative for pulmonary embolism but it did show a 5.1 mm nodule in the apex and far anterior subpleural of the right upper lobe seen on image 182/252 series 2. 5.1 mm nodule in the far posterior aspect of the right upper lobe seen on image 209/252 series 2. The patient is using BiPAP without significant air leak or snore. He does experience dry mouth. He denies hea (more content not included)... Normal [facility] Serum anion gap measurementO rdered By: TODD Gould on 12-07-2024 Anion gap [Moles/Vol] 6 mmol/L 5-15 [facility] Serum or plasma calcium toya urement (mass/volume)Ordered By: TODD Gould on 12-07-2024 Calcium [Mass/Vol] 9.1 mg/dL 8.5-10.1 [facility] Serum or plasma creatinine m easurement (mass/volume)Ordered By: TODD Gould on 12-07-2024 Creatinine [Mass/Vol] 0.80 mg/dL 0.70-1.30 [facility] Comment on above: The validity of the calculated GFR & GFRAA in patients over 70 years has not been determined. Clinical correlation is essential. Serum or plasma thyroid stim ulating hormone (TSH) measurement (units/volume)Ordered By: TODD Gould on 12-07-2024 TSH Qn 2.010 uIU/mL 0.358-3.74 0 [facility] Serum or plasma urea nitroge n measurement (mass/volume)Ordered By: TODD Gould on 12-07-2024 Urea nitrogen [Mass/Vol] 20 mg/dL High 7-18 [facility] Sodium levelOrdered By: TODD Gould on 12-07-2024 Sodium [Moles/Vol] 142 mmol/L 136-145 [facility] TSH QnOrdered By: TODD Gould on 12-07-2024 Thyroid Stimulating Hormone (TSH) 2.010 uIU/mL 0.358-3.74 0 [facility] Thyroid Stim Hormone (TSH)on 12-07-2024 TSH 2.010 uIU/mL Normal 0.358-3.74 0 [facility] Comment on above: Order Comment: MARIO GOULD ORDERED FERRITINALL OTHERS LABS ORDERED BY DR Cece MOON Performed By: #### L 503.6550, L506.1000, L501.9520, L500.2500 ####[facility] [address] [place], [address] 6 Minute Walk Teston 025 6 Minute Walk Test y [facility] Services/Neurology [address] [place] [address] MR#: [id number] Acct: [id number] Name: WELLINGTON GONZALEZ Rep #: [id number] : 1945 79 From: Abel Mcgee DO Referring Dr: Ivelisse Gould [employer]-C Status: REG CLI Location: PSN Date: Sex: M C PSN 6 Minute Walk Test 6 Minute Walk Test 6 Minute Walk Test: 6 Minute Walk Test PSN:6-Minute Walk Test Start: 11/07/24 12:45 Freq: Status: Active Protocol: RESP.6MINW Document 11/07/24 12:45 SHIMAENTON (Rec: 11/07/24 12:47 SFENTON [id number]) 6 Minute Walk Test Date Performed 11/07/24 Time Performed 12:30 Height 6 ft Weight: 215 lb Weight in Pounds 215.[address]: Ivelisse Gould Assistive device used: None Pre-test Oxygen Delivery Method Room Air Pulse Ox (%) 97 Pulse Rate (60-100 beats/min) 81 Dyspnea Enedina Scale (0-10) 0.5 Exertion Enedina Scale (6-20) 6 1st minute Oxygen Delivery Method Room Air Pulse Ox (%) 97 Pulse Rate (60-100 beats/min) 91 2nd minute Oxygen Delivery Method Room Air Pulse Ox (%) 96 Pulse Rate (60-100 beats/min) 92 3rd minute Oxygen Delivery Method Room Air Pulse Ox (%) 96 Pulse Rate (60-100 beats/min) 95 4th minute Oxygen Delivery Method Room Air Pulse Ox (%) 97 Pulse Rate (60-100 beats/min) 95 5th minute Oxygen Delivery Method Room Air Pulse Ox (%) 98 Pulse Rate (60-100 beats/min) 95 6th minute Oxygen Delivery Method Room Air Pulse Ox (%) 97 Pulse Rate (60-100 beats/min) 97 Dyspnea Enedina Scale (0-10) 3 Exertion Enedina Scale (6-20) 13 Post-test Oxygen Delivery Method Room Air Pulse Ox (%) 97 Pulse Rate (60-100 beats/min) 82 Full Laps Walked 17 Partial Lap, Number of Tiles Walked 17 Total Distance Walked (ft) 1020 Interpretation Interpretation: The patient ambulated 1020 feet over the course of 6 minutes beginning on room air without assistive devices. Pretesting oxygen saturation was noted to be 97% on room air. With ambulation, the jenise oxygen saturation was 96%. There was no significant exertional oxygen desaturation. Recommendations Recommendations: There is no indication for the use of supplemental oxygen at this time. 11/15/24 0956 Date Abel Mcgee DO CC: Date Dictated: 11/15/24 0955 Date Transcribed: 11/15/24954 Care Rep: Dr. Abel Mcgee DO Signed Normal [facility] Re-Evaluation - PT (1)on Re-Evaluation - PT (1) [facility] Physical Therapy [facility] [address] [place] [address] [address] [place] [address] / REEVALUATION / MEDICARE RECERTIFICATION PHYSICAL THERAPY MR#: [id number] Acct: [id number] Name: WELLINGTON GONZALEZ Rep #: [id number] : 1945 79 From: Joan BOYD Referring Dr.: Dr. Randa Joseph DO Status:REG RCR Insurance: MEDICARE PART A B [employer] [facility] Re-Evaluation Intro: Dr. Randa Joseph, DO, It has been my pleasure to treat WELLINGTON GONZALEZ over the last 8 visits for Pain in shoulder. Please see the progress note below for an update on the physical therapy plan of care! Subjective Subjective: Pt had pain this morning in the neck and the shoulder but not as bad as now. He still feels off since his fall. He got his CPAP figured out and it might take a month but getting there. Objective Objective/Function: R shoulder flex 154 and L 134 (increase pain) R shoulder ABD 150 and L 134 (increase pain) R shoulder ER 55 and L 62 R shoulder IR T12 and L T12 R shoulder flex 13.4 and L 12.2 R shoulder ABD 8 and L 8 R shoulder ER 10.7 and L 9.5 R shoulder IR 14/7 and L 16.6 Plan Plan Plan: 2X/ week for 8 weeks for AAROM, AROM of B shoulders (mostly L), postural exercises, scapular exercises, light neck retraction to help with posture that might be impacting shoulder ROM, HEP and modalities as needed Balance/Gait/Functional tests Balance/Special Test Scores Quick DASH Score: 43.1800 Goals Goals Goal 1:: I HEP Goal Time Frame: 6-8 Weeks Goal 2:: Increase L shoulder AROM (at the time of the eval: UE AROM: R shoulder flex 142 and L 118 (increase pain) R shoulder ABD 140 and L 120 (increase pain) R shoulder ER 55 and L 40 R shoulder IR T12 and L T12) Goal Time Frame: 6-8 Weeks Goal Progress: Progressing Goal 3:: Increase L shoulder strength (at the time of the eval: UE MMT: R shoulder flex 8.5 and L 6.1 R shoulder ABD 8 and L 4.7 R shoulder ER 10.7 and L 5.9 R shoulder IR 11.6 and L 6.6) Goal Time Frame: 6-8 Weeks Goal Progress: Progressing Goal 4:: Sit with upright posture during treatment sessions Goal Time Frame: 6-8 Weeks Goal Progress: Progressing Anticipated Interventions Anticipated Interventions Patient/Client Instruction: Educate patient on: Condition and Plan of Care For the Purpose of:: To decrease pain, To increase ROM, To improve nutrient delivery to tissue, To improve muscle performance and motor function, To improve ability to perform ADL's, To increase tolerance to activity/condition/position, To improve performance and independence with ADL's, To decrease level of supervision to perform tasks, To improve health of tissue, To decrease soft tissue restriction and To increase flexibility/ROM Therapeutic Exercise to Include: Strength training, Endurance training, Postural training, Flexibilty training, Neuromotor development, Passive ROM, Active ROM and Scapular Strength/Stabilization For the Purpose of:: To decrease pain, To increase ROM, To improve nutrient delivery to tissue, To improve muscle performance and motor function, To improve ability to perform ADL's, To increase tolerance to activity/condition/position, To improve performance and independence with ADL's, To decrease level of supervision to perform tasks, To improve ability of physical actions for home/community/work/leisure, To improve health of tissue, To decrease soft tissue restriction and To increase flexibility/ROM Manual Therapy Techniques to Include: Passive ROM For the Purpose of:: To increase ROM Cryotherapy (ice pack, ice massage): Yes Thermo therapy (hot pack): Yes For the Purpose of:: To decrease pain, To increase ROM and To improve nutrient delivery to tissue Re-Evaluation Ending Re-evaluation ending: Please do not hesitate to contact me at [phone] by phone or if you have questions or concerns regarding this new plan of care! Sincerely, Joan Muñoz, MPT 11/09/24 1106 CC: Dr. Randa Joseph, DO Signed For Medicare only, by signing this I certify the plan of care. Physicians Signature Date Normal [facility] 12 Lead EKGon 11-05-2024 12 Lead EKG [facility] Cardiovascular Services [address] [place] [address] 12 Lead EKG 11/05/24 1400 MR#: [id number] Acct: [id number] Name: WELLINGTON GONZALEZ Rep #: [id number] : 1945 79 From: Arabella Nova MD Attending Dr: Status: DEP ER Ordering Dr: Mario Koo MD Date: 11/05/24 Location: ED Sex: M C Admitted: Test Reason : Blood Pressure : */* mmHG Vent. Rate : 69 BPM Atrial Rate : 69 BPM P-R Int : 196 ms QRS Dur : 94 ms QT Int : 416 ms P-R-T Axes : 44 23 24 degrees QTcB Int : 445 ms Normal sinus rhythm Cannot rule out Anterior infarct , age undetermined Abnormal ECG Confirmed by ALLEN SAMAYOA, ASYA ([id number]), society editor TEAGAN DEJESUS ([id number]) on 11/07/2024 10:50:13 AM Referred By: Confirmed By: ASYA NOVA MD 11/07/24 1050 Date Arabella Nova MD CC: Dr. Mario Koo MD; Dr. Randa Joseph, DO Signed Normal [facility] Absolute lymphocyte countOrd ered By: Mario Koo on 11-05-2024 Lymphocytes Auto (Unsp spec) [#/Vol] 0.95 10*3/uL 0.83-4.51 [facility] Absolute neutrophil countOrd ered By: Mario Koo on 11-05-2024 Neutrophils (Bld) [#/Vol] 2.6 10*3/uL 2.0-7.7 [facility] Automated lymphocyte count a s percentage of total leukocytesOrdered By: Mario Koo on 11-05-2024 Lymphocytes/100 WBC Auto (Unsp spec) 22.0 % 19-41 [facility] BNP (brain natriuretic pepti de measurement)Ordered By: Mario Koo on 11-05-2024 Natriuretic peptide B (Bld) [Mass/Vol] 79.0 pg/mL 0-100 [facility] BNP,B-Type NATRIURETIC PEPTI Mayra 11-05-2024 Natriuretic peptide B (Bld) [Mass/Vol] 79.0 pg/mL Normal 0-100 [facility] Comment on above: Performed By: #### L 503.6643, L300.8000 ####[facility] [address] [place], [address] Basic Metabolic Profile (BMP )on 11-05-2024 BUN/CRE 18.4 RATIO Normal 10-20 [facility] Comment on above: Order Comment: 'TROP ' Serial specimen #1, #2 or #3: 1 Performed By: #### L 100.0100, L501.4020, L500.2500 ####[facility] [address] [place], [address] CA,Total 9.3 mg/dL Normal 8.5-10.1 [facility] Comment on above: Order Comment: 'TROP ' Serial specimen #1, #2 or #3: 1 Performed By: #### L 100.0100, L501.4020, L500.2500 ####[facility] [address] [place], [address] Chloride [Moles/Vol] 115 mmol/L High 98-107 [facility] Comment on above: Order Comment: 'TROP ' Serial specimen #1, #2 or #3: 1 Performed By: #### L 100.0100, L501.4020, L500.2500 ####[facility] [address] [place], [address] CO2 [Moles/Vol] 23.0 mmol/L Normal 21.0-32.0 [facility] Comment on above: Order Comment: 'TROP ' Serial specimen #1, #2 or #3: 1 Performed By: #### L 100.0100, L501.4020, L500.2500 ####[facility] [address] [place], [address] Creatinine [Mass/Vol] 0.87 mg/dL Normal 0.70-1.30 [facility] Comment on above: Order Comment: 'TROP ' Serial specimen #1, #2 or #3: 1 Result Comment: The validity of the calculated GFR GFRAA in patients over 70 years has not been determined. Clinical correlation is essential. Performed By: #### L 100.0100, L501.4020, L500.2500 ####[facility] [address] [place], [address] ECRCL 83.50 ml/min Normal [facility] Comment on above: Order Comment: 'TROP ' Serial specimen #1, #2 or #3: 1 Performed By: #### L 100.0100, L501.4020, L500.2500 ####[facility] [address] [place], [address] EST GFR - AA 109 mL/min Normal >60 [facility] Comment on above: Order Comment: 'TROP ' Serial specimen #1, #2 or #3: 1 Result Comment: Afri can Ukrainian GFR Calc Performed By: #### L 100.0100, L501.4020, L500.2500 ####[facility] [address] [place], [address] GAP 6 Normal 5-15 [facility] Comment on above: Order Comment: 'TROP ' Serial specimen #1, #2 or #3: 1 Performed By: #### L 100.0100, L501.4020, L500.2500 ####[facility] [address] [place], [address] GFR/1.73 sq M.predicted among non-blacks MDRD (S/P/Bld) [Vol rate/Area] 90 mL/min/{1.73_m2} Normal >60 [facility] Comment on above: Order Comment: 'TROP ' Serial specimen #1, #2 or #3: 1 Result Comment: Non- GFR Calc Performed By: #### L 100.0100, L501.4020, L500.2500 ####[facility] [address] [place], [address] Glucose [Mass/Vol] 125 mg/dL High 74-106 [facility] Comment on above: Order Comment: 'TROP ' Serial specimen #1, #2 or #3: 1 Result Comment: Fast ing Glucose result from 100 to 125 mg/dL suggests IMPAIRED HOMEOSTASIS per A.D.A. criteria. Performed By: #### L 100.0100, L501.4020, L500.2500 ####[facility] [address] [place], [address] Potassium [Moles/Vol] 3.5 mmol/L Normal 3.5-5.1 [facility] Comment on above: Order Comment: 'TROP ' Serial specimen #1, #2 or #3: 1 Performed By: #### L 100.0100, L501.4020, L500.2500 ####[facility] [address] [place], [address] Sodium [Moles/Vol] 144 mmol/L Normal 136-145 [facility] Comment on above: Order Comment: 'TROP ' Serial specimen #1, #2 or #3: 1 Performed By: #### L 100.0100, L501.4020, L500.2500 ####[facility] [address] [place], [address] Urea nitrogen [Mass/Vol] 16 mg/dL Normal - [facility] Comment on above: Order Comment: 'TROP ' Serial specimen #1, #2 or #3: 1 Performed By: #### L 100.0100, L501.4020, L500.2500 ####[facility] [address] [place], [address] Basophil percentageOrdered B y: Mario Koo on 11-05-2024 Basophils/100 WBC (Bld) 0.2 % 0- [facility] Blood urea nitrogen (BUN)/cr eatinine ratioOrdered By: Mario Koo on 11-05-2024 Urea nitrogen/Creatinine [Mass ratio] 18.4 mg/mg 10- [facility] CBC W/Diff, Automatedon 10-19 Absolute Lymph 0.95 X10 3/uL Normal 0.83-4.51 [facility] Comment on above: Performed By: #### L 100.0100, L501.4020, L500.2500 ####[facility] [address] [place], [address] Absolute Neut 2.6 X10 3/uL Normal 2.0-7.7 [facility] Comment on above: Performed By: #### L 100.0100, L501.4020, L500.2500 ####[facility] [address] [place], [address] Basophils/100 WBC (Bld) 0.2 % Normal 0-1 [facility] Comment on above: Performed By: #### L 100.0100, L501.4020, L500.2500 ####[facility] [address] [place], [address] Eosinophils/100 WBC (Bld) 0.0 % Normal 0-5 [facility] Comment on above: Performed By: #### L 100.0100, L501.4020, L500.2500 ####[facility] [address] [place], [address] Erythrocyte distribution width (RBC) [Ratio] 14.0 % Normal 11.6-14.6 [facility] Comment on above: Performed By: #### L 100.0100, L501.4020, L500.2500 ####[facility] [address] [place], [address] Hematocrit (Bld) [Volume fraction] 34.3 % Low 40-54 [facility] Comment on above: Performed By: #### L 100.0100, L501.4020, L500.2500 ####[facility] [address] [place], [address] Hemoglobin (Bld) [Mass/Vol] 11.3 g/dL Low 13.0-16.5 [facility] Comment on above: Performed By: #### L 100.0100, L501.4020, L500.2500 ####[facility] [address] [place], [address] IG% 0.700 Normal 0.0-0.9 [facility] Comment on above: Result Comment: IG% - Immature Granulocytes (promyelocytes, myelocytes and metamyelocytes) > 1% indicates that a LEFT SHIFT is Present. Performed By: #### L 100.0100, L501.4020, L500.2500 ####[facility] [address] [place], [address] Lymphocytes/100 WBC (Bld) 22.0 % Normal 19-41 [facility] Comment on above: Performed By: #### L 100.0100, L501.4020, L500.2500 ####[facility] [address] [place], [address] MCH (RBC) [Entitic mass] 31.0 pg Normal 27.0-32.0 [facility] Comment on above: Performed By: #### L 100.0100, L501.4020, L500.2500 ####[facility] [address] [place], [address] MCHC (RBC) [Mass/Vol] 32.9 g/dL Normal 32-36 [facility] Comment on above: Performed By: #### L 100.0100, L501.4020, L500.2500 ####[facility] [address] [place], [address] MCV (RBC) [Entitic vol] 94.2 fL High 80-94 [facility] Comment on above: Performed By: #### L 100.0100, L501.4020, L500.2500 ####[facility] [address] [place], [address] Monocytes/100 WBC (Bld) 17.2 % High 0-10 [facility] Comment on above: Performed By: #### L 100.0100, L501.4020, L500.2500 ####[facility] [address] [place], [address] Neutrophils/100 WBC (Bld) 59.9 % Normal 47-70 [facility] Comment on above: Performed By: #### L 100.0100, L501.4020, L500.2500 ####[facility] [address] [place], [address] Nucleated RBC (Bld) [#/Vol] 0 10*3/uL Normal 0-5 [facility] Comment on above: Performed By: #### L 100.0100, L501.4020, L500.2500 ####[facility] [address] [place], [address] Platelet mean volume (Bld) [Entitic vol] 10.5 fL Normal 6.2-12.0 [facility] Comment on above: Performed By: #### L 100.0100, L501.4020, L500.2500 ####[facility] [address] [place], [address] Platelets (Bld) [#/Vol] 224 10*3/uL Normal 150-450 [facility] Comment on above: Performed By: #### L 100.0100, L501.4020, L500.2500 ####[facility] [address] [place], [address] RBC (Bld) [#/Vol] 3.64 10*6/uL Low 4.6-6.2 [facility] Comment on above: Performed By: #### L 100.0100, L501.4020, L500.2500 ####[facility] [address] [place], [address] RDW SD 47.9 fl High 35.1-43.9 [facility] Comment on above: Performed By: #### L 100.0100, L501.4020, L500.2500 ####[facility] [address] [place], [address] WBC (Bld) [#/Vol] 4.3 10*3/uL Low 4.4-11.0 [facility] Comment on above: Performed By: #### L 100.0100, L501.4020, L500.2500 ####[facility] [address] [place], [address] CTA Chest W/WO Contraston CTA Chest W/WO Contrast [facility] Imaging Services [address] [place] [address] CTA Chest W/WO Contrast MR#: [id number] Acct: [id number] Name: WELLINGTON GONZALEZ Rep #: [id number] : 1945 M 79 From: Rachid mccormack MD PCP: Dr. Randa Joseph, DO Status: REG ER Study: CTA Chest W/WO Contrast Date of Exam: 11/05/24 Exam# [id number] Ordering Dr: Mario Koo MD :[id number] STUDY: CTA CHEST REASON FOR EXAM: Male, 79 years old. Dyspnea and elevated d-dimer RADIATION DOSAGE (If Supplied By Facility): CTDIvol = ( 14.99 ) mGy, DLP = ( 414.20 ) mGycm TECHNIQUE: The examination was performed with the intravenous administration of IV 100mL Isovue-370. Post-processing of the angiographic images was performed, with multiplanar reformation and 3D reconstruction. Individualized dose optimization techniques were used for this CT. COMPARISON: Chest x-ray dated November 05, 2024. FINDINGS: COPD/cystic emphysematous changes and mild scattered interstitial fibrosis. There is a calcified granuloma of the superior segment and retrocardiac region of the left lower lobe. 5.1 mm nodule in the apex and far anterior subpleural of the right upper lobe seen on image 182/252 series 2. 5.1 mm nodule in the far posterior aspect of the right upper lobe seen on image 209/252 series 2. These nodules should be followed up according to Fleischner Society''s criteria. No additional nodules are present. No visualized masses. Pleural parenchymal scarring and thickening is chronic and present in the bilateral upper lobes up to the apices. Normal enhancement of the main pulmonary artery and right and left pulmonary arteries. Normal enhancement of the bilateral peripheral pulmonary arteries. There is no demonstrated pulmonary embolism. There is atherosclerotic calcification of the aortic arch with tortuosity. There is no demonstrated aortic dissection. Normal heart and pericardium. There are calcifications of the coronary arteries. Normal mediastinum. Normal hilar regions. Normal visualized trachea and bronchi. The lungs are well expanded. Normal chest wall structures. There are degenerative changes of thoracic spine. Included upper abdomen: A few benign small cyst is seen in the liver which do not requiring additional imaging or assessment. The remaining visualized upper abdominal structures are grossly unremarkable. Small cyst partially seen in the kidneys. There is an lobular outpouching of the anterior aspect of the superior pole of the left kidney, which appears to represent a dromedary hump or localization of the renal parenchyma and was present on the July 15, 2023 study and is not favored to represent a renal mass. However a renal ultrasound or MRI of the abdomen with and without contrast should be obtained for definitive assessment. See image #1/[address]/CTA Chest W/WO Contrast IMPRESSION: 1. No demonstrated pulmonary embolism or arterial dissection. 2. COPD/cystic emphysematous changes 3. Right lung nodules = 5.1 mm nodule in the apex and far anterior subpleural of the right upper lobe seen on image 182/252 series 2. 5.1 mm nodule in the far posterior aspect of the right upper lobe seen on image 209/252 series 2. These nodules should be followed up according to Fleischner Society''s criteria. 4. There is an lobular outpouching of the anterior aspect of the superior pole of the left kidney, which appears to represent a dromedary hump or localization of the renal parenchyma and was present on the July 15, 2023 study and is not favored to represent a renal mass. However a renal ultrasound or MRI of the abdomen with and without contrast should be obtained for definitive assessment. See image #1/252 series 2 Recommendation: CT lung cancer annual screening exam is recommended for patients with a high risk factors for developing lung including current or previous smoking history, COPD, emphysema, and interstitial lung disease. REFERENCE, ONLY IF CLINICALLY RELEVANT OR IF LUNG NODULES ARE PRESENT: FLEISCHNER SOCIETY RECOMMENDATIONS FOR FOLLOW-UP OF SMALL SOLID LUNG NODULES DETECTED INCIDENTALLY ON CT (for PATIENTS ? 35 YEARS OF AGE with no known extra-pulmonary cancer and no clinical evidence of infection). 4-6mm: Low Risk - CT at 12 months; if stable, no further follow-up. High Risk - Initial CT at 6-12 months; if stable, repeat CT at 18-24 months Electronically Signed: Rachid Ford MD at 15:52 EST Reading Location ID and State: [address] [place] [address] , Service support , CC: Dr. Mario Koo MD; Dr. Randa Joseph DO Care Rep: Signed Normal [facility] Carbon dioxide measurementOr dered By: Mario Koo on 11-05-2024 CO2 [Moles/Vol] 23.0 mmol/L 21.0-32.0 [facility] Chest PA and Lateralon 11-05 Chest PA and Lateral [facility] Imaging Services [address] [place] [id number] Chest PA and Lateral MR#: [id number] Acct: [id number] Name: WELLINGTON GONZALEZ Rep #: [id number] : 1945 M 79 From: Rachid mccormack MD PCP: Dr. Randa Joseph, Status: REG ER Study: Chest PA and Lateral Date of Exam: 11/05/24 Exam# [id number] Ordering Dr: Mario Koo MD :[id number] STUDY: X-RAY CHEST REASON FOR EXAM: Male, 79 years old. chest pain TECHNIQUE: PA and lateral views of the chest. COMPARISON: July 12, 2017 FINDINGS: 1. COPD/emphysematous changes and interstitial fibrosis 2. No consolidation or infiltrates 3. No pleural effusion 4. No pneumothorax 5. Small calcified granuloma seen in the superior segment of the left lower lobe 6. Normal heart size 7. Stable mediastinum and osseous structures. There is no demonstrated abnormality of the visualized soft tissue structures of the upper abdomen. RAD/Chest PA and Lateral IMPRESSION: COPD/emphysematous changes and interstitial fibrosis Electronically Signed: Rachid Ford MD at 15:41 EST Reading Location ID and State: [address] [place] [address] , Service support , CC: Dr. Mario Koo MD; Dr. Randa Joseph DO Care Rep: Signed Normal [facility] Chloride measurementOrdered By: Mario Koo on 11-05-2024 Chloride [Moles/Vol] 115 mmol/L High 98-107 [facility] D-Dimer Quantitative (DVT/PE )on 11-05-2024 D-DIMER QUANT 1.51 FEU/ug/m Invalid Interpretation Code 0.27-0.49 [facility] Comment on above: Order Comment: CRITI ANSLEY VALUE CALLED TO FIDELIA PRAKASH11/05/24 [email or web address] Kitty Dunlap.RESULTS READ BACK BY SAME. Result Comment: D-Di david ELEVATED (>0.49): Additional studies and clinical assessments are indicated to conclude diagnosis of: Deep Vein Thrombosis (DVT) or Pulmonary Embolism (PE) Performed By: #### L 503.6657, L300.8000 ####[facility] [address] [place], [address] D-dimer measurement for deep venous thrombosisOrdered By: Mario Koo on 11-05-2024 D-Dimer Quantitative (PE/DVT) 1.51 FEU/ug/m High 0.27-0.49 [facility] Comment on above: D-Dimer ELEVATED (>0 .49): Additional studies and clinicalassessments are indicated to conclude diagnosis of:Deep Vein Thrombosis (DVT) or Pulmonary Embolism (PE) Emergency Department Summary on 11-05-2024 Emergency Department Summary [facility] Medical Records Department [address] [place] [address] Emergency Department Summary 11/05/24 MR#: [id number] Acct: [id number] Name: WELLINGTON GONZALEZ Rep #: [id number] : 1945 79 From: Mario Koo MD PCP: Dr. Randa Joseph, DO Status:REG ER Location: ED HPI History of Present Illness Chief Complaint: Shortness of Breath Informant: patient and spouse/S.O. Onset/Context/Timing Onset: Weeks Context: gradual Timing: Intermittent Quality: Positive for Dyspnea on exertion; Negative for Wheezing Current Severity: Mild Maximum Severity: Mild Worsened by: Exertion Relieved by: Nothing Associated Symptoms Negative for cough Chest Pain: Positive for None Narrative Narrative: 79-year-old male history of asthma prior DVT and anemia. States been short of breath for about a month. Symptoms cause him difficulty sleeping. He denies chest pain. He denies fever or chills. He denies new cough. No hemoptysis. Worse with exertion. No leg swelling. States he really has been wheezing much and his aerosols do not make a huge difference. PE Risk Factors: Positive for Prior DVT or PE; Negative for Cancer, OCP + Smoking + > 35, Recent immobilization, Recent surgery or Recent travel Prior similar symptoms: Yes Recent Illness/Hospitalization: No PFSH PFSH Medical History JOSHUA (obstructive sleep apnea) History of back problems Fatigue Weight loss Lab test positive for detection of COVID-19 virus ( 04/2020) Left femoral shaft fracture Osteopenia 2012 femur fracture [facility] DVT (deep venous thrombosis) Restless leg syndrome Iron deficiency anemia GERD (gastroesophageal reflux disease) Celiac disease Asthma Home Medications ???Medication ???Instructions ???Recorded ???Last Taken ???Type pantoprazole 40 mg tablet,delayed 40 mg PO QHS gerd 04/03/14 07/15/17 History release tamsulosin 0.4 mg capsule 0.4 mg PO QHS Enlarged prostate 07/12/17 01/06/24 History ibuprofen 200 mg capsule 200 mg PO BID PRN Pain 09/10/18 Unknown History ergocalciferol (vitamin D2) 1,250 50,000 unit PO WE 10/21/19 Unknown History mcg (50,000 unit) capsule benralizumab 30 mg/mL subcutaneous 30 mg subcut Q4W #1 mL 12/28/20 Unknown Rx syringe (Fasenra) levothyroxine 50 mcg tablet 100 mcg PO DAILY 03/21/22 01/06/24 History fluticasone propionate 50 2 spray NASAL BID PRN Congestion 03/25/22 Unknown Rx mcg/actuation nasal #16 grams spray,suspension albuterol sulfate 90 mcg/actuation 1 - 2 puff inhalation Q4H PRN PRN 09/22/23 Unknown Rx aerosol inhaler Sob /Or Wheezing #8.5 grams pramipexole 1.5 mg tablet 1.5 mg PO DAILY 11/25/23 Unknown History finasteride 5 mg tablet 5 mg PO DAILY 01/05/24 Unknown History bimatoprost 0.03 % eye drops 1 drp ophthalmic (eye) QDAY 10/04/24 Unknown History denosumab 60 mg/mL subcutaneous 60 mg subcut [id number] 10/04/24 Unknown History syringe (Prolia) diclofenac potassium 50 mg tablet 50 mg PO TID PRN pain 10/04/24 Unknown History fluticasone 232 mcg-salmeterol 14 1 inh inhalation BID #1 ea 10/04/24 Unknown Rx mcg/actuation breath activated powdr prednisone 20 mg tablet 40 mg (2 x 20 mg) PO DAILY 5 days 11/05/24 Unknown Rx #10 tabs Allergy/AdvReac Type Severity Reaction Status Date / Time gluten AdvReac Other Verified 11/05/24 12:39 Family History Father prostate cancer Surgical History History of colonoscopy ( 09/24/20) History of esophagogastroduodenoscopy (EGD) ( 09/24/20) History of hernia repair History of spinal surgery ( 2017) History of repair of hip fracture History of cholecystectomy colonoscopy Social History Smoking Status: Former smoker alcohol intake: never substance use type: does not use ROS ROS ED ROS Narrative Shortness of breath. No chest pain. No fever or cough. No leg swelling. No hemoptysis. Constitutional Constitutional ED: Denies chills or fever(s) Eyes Eyes: Denies blurry vision ENT ENT ED: Denies ear pain Cardiovascular Cardiovascular: Denies chest pain or palpitations Respiratory/Chest Respiratory/Chest: Reports dyspnea and dyspnea on exertion; Denies cough or sputum Gastrointestinal Gastrointestinal: Denies abdominal pain or constipation Genitourinary Genitourinary ED: Denies dysuria or hematuria Musculoskeletal Musculoskeletal: Denies arthralgias or back pain Integumentary Denies abscess Neurologic Neurologic: Denies headache(s) Psychiatric Psychiatric: Denies anxiety or depression Endocrine Endocrinology: Denies cold intolerance Hematologic/Lymphatic Hematologic/Lymphatic: Denies easy bleeding Allergi (more content not included)... Normal [facility] Eosinophil percentageOrdered By: Mario Koo on 11-05-2024 Eosinophils/100 WBC (Bld) 0.0 % 0-5 [facility] Erythrocyte distribution wid th ratioOrdered By: Mario Koo on 11-05-2024 Erythrocyte distribution width (RBC) [Ratio] 14.0 % 11.6-14.6 [facility] Erythrocyte distribution wid th standard deviationOrdered By: Mario Koo on 11-05-2024 Erythrocyte distribution width (RBC) [Entitic vol] 47.9 fL High 35.1-43.9 [facility] Erythrocyte distribution width (RBC) [Ratio] 47.9 fl High 35.1-43.9 [facility] Estimated glomerular filtrat ion rate (GFR) AmericanOrdered By: Mario Koo on 11-05-2024 Estimated GFR (MDRD) Amer 109 mL/min >60 [facility] Comment on above: GFR Calc Estimation of creatinine velma aranceOrdered By: Mario Koo on 11-05-2024 Estimated Creatinine Clearance Calc 83.50 ml/min [facility] Glomerular filtration rate ( GFR) estimationOrdered By: Mario Koo on 11-05-2024 Estimated GFR (MDRD) Non-Af Amer 90 mL/min >60 [facility] Comment on above: Non- GFR Calc GFR/1.73 sq M.predicted among non-blacks MDRD (S/P/Bld) [Vol rate/Area] 90 mL/min/{1.73_m2} >60 [facility] Comment on above: Non- GFR Calc Glucose measurementOrdered B y: Mario Koo on 11-05-2024 Glucose [Mass/Vol] 125 mg/dL High 74-106 [facility] Comment on above: Fasting Glucose resu lt from 100 to 125 mg/dL suggests IMPAIRED HOMEOSTASIS per A.D.A. criteria. Hematocrit Auto (Bld) [Volum e fraction]Ordered By: Mario Koo on 11-05-2024 Hematocrit (Bld) [Volume fraction] 34.3 % Low 40-54 [facility] Hemoglobin measurementOrdere d By: Mario Koo on 11-05-2024 Hemoglobin (Bld) [Mass/Vol] 11.3 g/dL Low 13.0-16.5 [facility] Immature granulocytes/100 WB C Auto (Bld)Ordered By: Mario Koo on 11-05-2024 Immature granulocytes/100 WBC (Bld) 0.700 % 0.0-0.9 [facility] Comment on above: IG% - Immature Granu locytes (promyelocytes, myelocytes and metamyelocytes) > 1% indicates that a LEFT SHIFT is Present. L501.4020on 11-05-2024 TROPONIN-I HS 4 pg/mL Normal 3.0-78.0 [facility] Comment on above: Order Comment: 'TROP ' Serial specimen #1, #2 or #3: 1 Result Comment: Plea se Note: New Test Units and Gender Specific Reference Ranges. For more information see Policy Stat Procedure Mildred High Sensitivity Troponin (TNIH) and attachments. Performed By: #### L 100.0100, L501.4020, L500.2500 ####[facility] [address] [place], [place], [id number] Lymphocytes Auto (Unsp spec) [#/Vol]Ordered By: Mario Koo on 11-05-2024 Lymphocytes (Bld) [#/Vol] 0.95 10*3/uL 0.83-4.51 [facility] Lymphocytes/100 WBC Auto (Un sp spec)Ordered By: Mario Koo on 11-05-2024 Lymphocytes/100 WBC (Bld) 22.0 % 19-41 [facility] MCV (mean corpuscular volume ) determinationOrdered By: Mario Koo on 11-05-2024 MCV (RBC) [Entitic vol] 94.2 fL High 80-94 [facility] Mean corpuscular hemoglobin (MCH) determinationOrdered By: Mario Koo on 11-05-2024 MCH (RBC) [Entitic mass] 31.0 pg 27.0-32.0 [facility] Mean corpuscular hemoglobin concentration (MCHC) determinationOrdered By: Mario Koo on 11-05-2024 MCHC (RBC) [Mass/Vol] 32.9 g/dL 32-36 [facility] Mean platelet volume determi nationOrdered By: Mario Koo on 11-05-2024 Platelet mean volume (Bld) [Entitic vol] 10.5 fL 6.2-12.0 [facility] Monocyte percentageOrdered B y: Mario Koo on 11-05-2024 Monocytes/100 WBC (Bld) 17.2 % High 0-10 [facility] Neutrophil percentageOrdered By: Mario Koo on 11-05-2024 Neutrophils/100 WBC (Bld) 59.9 % 47-70 [facility] Nucleated red blood cell per centageOrdered By: Mario Koo on 11-05-2024 Nucleated RBC/100 WBC (Bld) [Ratio] 0 % 0-5 [facility] Platelet countOrdered By: Micheal Koo on 11-05-2024 Platelets (Bld) [#/Vol] 224 10*3/uL 150-450 [facility] Potassium measurementOrdered By: Mario Koo on 11-05-2024 Potassium [Moles/Vol] 3.5 mmol/L 3.5-5.1 [facility] RBC Auto (Bld) [#/Vol]Ordere d By: Mario Koo on 11-05-2024 RBC (Bld) [#/Vol] 3.64 10*6/uL Low 4.6-6.2 [facility] Serum anion gap measurementO rdered By: Mario Koo on 11-05-2024 Anion gap [Moles/Vol] 6 mmol/L 5-15 [facility] Serum or plasma calcium toya urement (mass/volume)Ordered By: Mario Koo on 11-05-2024 Calcium [Mass/Vol] 9.3 mg/dL 8.5-10.1 [facility] Serum or plasma creatinine m easurement (mass/volume)Ordered By: Mario Koo on 11-05-2024 Creatinine [Mass/Vol] 0.87 mg/dL 0.70-1.30 [facility] Comment on above: The validity of the calculated GFR & GFRAA in patients over 70 years has not been determined. Clinical correlation is essential. Serum or plasma urea nitroge n measurement (mass/volume)Ordered By: Mario Koo on 11-05-2024 Urea nitrogen [Mass/Vol] 16 mg/dL 7- [facility] Sodium levelOrdered By: Mario Koo on 11-05-2024 Sodium [Moles/Vol] 144 mmol/L 136-145 [facility] Troponin IOrdered By: Mario gamboa on 11-05-2024 Troponin I 4 pg/mL 3.0-78.0 [facility] Comment on above: Please Note: New Rachel t Units and Gender Specific Reference Ranges. For more information see Policy Stat Procedure Mildred High Sensitivity Troponin (TNIH) and attachments. Troponin I High Sensitivity 4 pg/mL 3.0-78.0 [facility] Comment on above: Please Note: New Rachel t Units and Gender Specific Reference Ranges. For more information see Policy Stat Procedure Mildred High Sensitivity Troponin (TNIH) and attachments. White blood cell (WBC) count Ordered By: Mario Koo on 11-05-2024 WBC (Bld) [#/Vol] 4.3 10*3/uL Low 4.4-11.0 [facility] Inital Evaluation (1) - PTon 10-11-2024 Inital Evaluation (1) - PT [facility] [place] [id number] [place] [address] / REHABILITATION SERVICES INITIAL EVALUATION MR#: [id number] Acct: [id number] Name: WELLINGTON GONZALEZ Rep #: [id number] : 1945 79 From: Joan Muñoz MPT Referring Dr.: Dr. Randa Joseph, DO Status: RE G RCR Insurance: MEDICARE PART A B [facility] [facility] Patient's Visit Information Visit Information Visit Information: WELLINGTON GONZALEZ is a 79 year old M referred to Physical Therapy by Dr. Randa Joseph DO with a diagnosis of Pain in shoulder. Date of Evaluation: 10/11/24 Physical Therapist: DEB Villalobos Visit Plan Frequency: 2x /Week Duration: 2 Months Plan: 2X/ week for 8 weeks for AAROM, AROM of B shoulders (mostly L), postural exercises, scapular exercises, light neck retraction to help with posture that might be impacting shoulder ROM, HEP and modalities as needed HEP: wall posture, supine wand flexion shoulder, and green band mid row Subjective Subjective: Pt had some arthritis in R shoulder and he got a cortisone shot and 2 days later her fell (tripped over dog leash) and fell on the R and could not move it for a few days. He went to Urgent Care and did x-rays with no fx and then went to and put him on some med. Shortly after that he fell again on the L shoulder and the pain was in Both shoulders. The R has no been as bad until recently. He has pain along the R clavicle. 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 He could not lift his L shoulder in the office but now he can move it, just painful. Both shoulders are really painful. His pain comes and goes. Harley was his friend and now he is on a new med and it helps but there are days pain is 3-5/10 and this morning pain is 8-9/10. He has R clavicle pain and pain down both arms and describes it as an ache. He has had a previous neck fusion and that is painful also. He feels the neck pain is worse because the shoulders are painful. He did do an injection now on B sides and he reports that he thinks they are helping some. Pain R shoulder: Pain Intensity (Out of 10): 8 L shoulder pain: Pain Intensity (Out of 10): 5 neck pain: Pain Intensity (Out of 10): 8 Objective Objective: R handed: Title Specialist Strength: R 65# and L 70# Neck AROM: flexion 50%, ext 10%, R Rotation 50 and L 50%, B SB 10% (increase pain at all end ranges) Posture: very rounded shoulders and flexed head Bicep Reflex 2+/3 B UE MMT: R shoulder flex 142 and L 118 (increase pain) R shoulder ABD 140 and L 120 (increase pain) R shoulder ER 55 and L 40 R shoulder IR T12 and L T12 UE MMT: R shoulder flex 8.5 and L 6.1 R shoulder ABD 8 and L 4.7 R shoulder ER 10.7 and L 5.9 R shoulder IR 11.6 and L 6.6 Painful PROM on the L starting at approx 100. Pain at end range flexion on the R at approx 140 degrees. Supine wand flexion was painful for the patient on the L...instructed pt to go up to the pain and not through the pain. Balance/Special Test Scores Quick DASH Score: 54.5450 Goals Goal 1:: I HEP Goal Time Frame: 6-8 Weeks Goal 2:: Increase L shoulder AROM (at the time of the eval: UE MMT: R shoulder flex 142 and L 118 (increase pain) R shoulder ABD 140 and L 120 (increase pain) R shoulder ER 55 and L 40 R shoulder IR T12 and L T12) Goal Time Frame: 6-8 Weeks Goal 3:: Increase L shoulder strength (at the time of the eval: UE MMT: R shoulder flex 8.5 and L 6.1 R shoulder ABD 8 and L 4.7 R shoulder ER 10.7 and L 5.9 R shoulder IR 11.6 and L 6.6) Goal Time Frame: 6-8 Weeks Goal 4:: Sit with upright posture during treatment sessions Goal Time Frame: 6-8 Weeks Rehabilitation Potential Rehabilitation Potential: Good Anticipated Interventions Patient/Client Instruction: Educate patient on: Condition and Plan of Care For the Purpose of:: To decrease pain, To increase ROM, To improve nutrient delivery to tissue, To improve muscle performance and motor function, To improve ability to perform ADL's, To increase tolerance to activity/condition/position, To improve performance and independence with ADL's, To decrease level of supervision to perform tasks, To improve health of tissue, To decrease soft tissue restriction and To increase flexibility/ROM Therapeutic Exercise to Include: Strength training, Endurance training, Postural training, Flexibilty training, Neuromotor development, Passive ROM, Active ROM and Scapular Strength/Stabilization For the Purpose of:: To decrease pain, To increase ROM, To improve nutrient delivery to tissue, To improve muscle performance and motor function, To improve ability to perform ADL's, To increase tolerance to activity/condition/position, To improve performance and independence with ADL's, To decrease level of supervision to perform tasks, To improve ability of physical actions for home/ (more content not included)... Normal [facility] Basic Metabolic Profile (BMP )on 10-04-2024 BUN/CRE 26.0 RATIO High 10-20 [facility] Comment on above: Performed By: #### L 500.2500 ####[facility] [address] [place], [address] CA,Total 9.9 mg/dL Normal 8.5-10.1 [facility] Comment on above: Performed By: #### L 500.2500 ####[facility] [address] [place], [address] Chloride [Moles/Vol] 110 mmol/L High 98-107 [facility] Comment on above: Performed By: #### L 500.2500 ####[facility] [address] [place], [address] CO2 [Moles/Vol] 29.0 mmol/L Normal 21.0-32.0 [facility] Comment on above: Performed By: #### L 500.2500 ####[facility] [address] [place], [address] Creatinine [Mass/Vol] 0.85 mg/dL Normal 0.70-1.30 [facility] Comment on above: Result Comment: The validity of the calculated GFR GFRAA in patients over 70 years has not been determined. Clinical correlation is essential. Performed By: #### L 500.2500 ####[facility] [address] [place], [address] EST GFR - AA 113 mL/min Normal >60 [facility] Comment on above: Result Comment: Afri can Ukrainian GFR Calc Performed By: #### L 500.2500 ####[facility] [address] [place], [address] GAP 3 Low 5-15 [facility] Comment on above: Performed By: #### L 500.2500 ####[facility] [address] [place], [address] GFR/1.73 sq M.predicted among non-blacks MDRD (S/P/Bld) [Vol rate/Area] 93 mL/min/{1.73_m2} Normal >60 [facility] Comment on above: Result Comment: Non- GFR Calc Performed By: #### L 500.2500 ####[facility] [address] [place], [address] Glucose [Mass/Vol] 103 mg/dL Normal 74-106 [facility] Comment on above: Result Comment: Fast ing Glucose result from 100 to 125 mg/dL suggests IMPAIRED HOMEOSTASIS per A.D.A. criteria. Performed By: #### L 500.2500 ####[facility] [address] [place], [address] Potassium [Moles/Vol] 4.2 mmol/L Normal 3.5-5.1 [facility] Comment on above: Performed By: #### L 500.2500 ####[facility] [address] [place], [address] Sodium [Moles/Vol] 142 mmol/L Normal 136-145 [facility] Comment on above: Performed By: #### L 500.2500 ####[facility] [address] [place], [address] Urea nitrogen [Mass/Vol] 22 mg/dL High 7-18 [facility] Comment on above: Performed By: #### L 500.2500 ####[facility] [address] [place], [address] Blood urea nitrogen (BUN)/cr eatinine ratioOrdered By: Luiza Moon on 10-04-2024 Urea nitrogen/Creatinine [Mass ratio] 26.0 mg/mg High 10-20 [facility] Carbon dioxide measurementOr dered By: Luiza Moon on 10-04-2024 CO2 [Moles/Vol] 29.0 mmol/L 21.0-32.0 [facility] Chloride measurementOrdered By: Luiza Moon on 10-04-2024 Chloride [Moles/Vol] 110 mmol/L High 98-107 [facility] Estimated glomerular filtrat ion rate (GFR) AmericanOrdered By: Luiza Moon on 10-04-2024 Estimated GFR (MDRD) Amer 113 mL/min >60 [facility] Comment on above: GFR Calc Glomerular filtration rate ( GFR) estimationOrdered By: Luiza Moon on 10-04-2024 Estimated GFR (MDRD) Non-Af Amer 93 mL/min >60 [facility] Comment on above: Non- GFR Calc Glucose measurementOrdered B y: Luiza Moon on 10-04-2024 Glucose [Mass/Vol] 103 mg/dL 74-106 [facility] Comment on above: Fasting Glucose resu lt from 100 to 125 mg/dL suggests IMPAIRED HOMEOSTASIS per A.D.A. criteria. Potassium measurementOrdered By: Luiza Moon on 10-04-2024 Potassium [Moles/Vol] 4.2 mmol/L 3.5-5.1 [facility] Pulmonary Visit Reporton Pulmonary Visit Report [facility] [place] [address] [place] [address] OFFICE VISIT Date of Service: 10/04/24 MR#: [id number] Acct: [id number] Name: WELLINGTON GONZALEZ Rep #: [id number] : 1945 Provider: Ivelisse Gould NP Age/Sex: 79/M Location: [facility] [place].PM[facility] Status: Signed Assessment and Plan Assessment and Plan (1) Severe persistent asthma, uncomplicated: Status: Chronic Plan: Uncontrolled. Patient is not compliant with ICS/LABA therapy. I have educated the patient on the importance of compliance with a daily maintenance inhaler especially while using a biologic for treatment of severe persistent asthma. I have recommended that he change from Symbicort to generic air duo as this is much cheaper at a local pharmacy using the [employer] coupon. Utilize good oral hygiene after inhaler use. Continue with use of Fasenra. Continue with use of albuterol to be used as needed for worsening symptoms. Notify this practice for worsening symptoms or symptoms of bronchitis. I have recommended an updated PFT and 6-minute walk test, there has been no recent objective data for many years. (2) JOSHUA (obstructive sleep apnea): Status: Chronic Plan: I suspect that his air leak is present due to old supplies. This is likely causing the AHI to be borderline today. I have asked for him to freshen up his mask, tubing, supplies. I will plan to repeat the compliance download on follow-up. Continue with compliant with the use of nocturnal BiPAP therapy. He has clinically benefited from its use. Orders: Orders PFT Complete - DLCO, Spirometry b/a bronchodilators, lung volumes 11/02/24 J45.50 - Severe persistent asthma, uncomplicated Simple Pulmonary Exercise Test 11/07/24 J45.50 - Severe persistent asthma, uncomplicated Medications: New fluticasone propion-salmeterol 232-14 mcg/actuation 1 inh inhalation BID 1 ea 11RF J45.50 - Severe persistent asthma, uncomplicated Plan Details Follow Up: 8-week follow-up (LMR) HPI HPI Comments Details: The patient is a 79-year-old male who presents to the clinic today for a routine scheduled follow up visit due to underlying asthma and JOSHUA. If you recall, the patient was initially referred to our office in November 2019 for the evaluation of asthma. At that time, the patient had reported that he was initially diagnosed with asthma in the early . The patient does have a history of gastroesophageal reflux disease. He was previously being followed by Dr. Molina at [facility]. The patient does have a history of peripheral eosinophilia, dating as far back as 2011 in our system. In addition to the aforementioned, the patient reported a history of seasonal allergic rhinitis along with nasal polyposis and sinus disease, for which he has been managed in the past by Dr. Morrow of ENT. 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 He is now semiretired working in the [employer] industry. He does have a prior smoking history of approximately 9 pack years having quit completely in 1968. He also reported prior secondhand smoke exposure. The patient does currently keep 1 dog as a pet in his home environment. 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 A 6-minute walk test was also completed at that time and revealed no need for the use of supplemental oxygen with exertion. Today the patient reports that he has a dry nonproductive cough. He denies shortness of breath wheeze congestion, chest pain chest tightness. He denies fever, chills, body aches. He has remained compliant with Fasenra injections. He has not experienced injection site reaction and reports that this medication has very effective for him. He reports today that he does not consistently use Symbicort. He reports that he uses it on an as-needed basis. He reports that the cost of this inhaler is high and he has other medical expenses for his spouse which do concern him. He indicates that he has not experienced any recent exacerbations, with the exception of a single day for which he used albuterol. He has not routinely used albuterol on a daily basis. The patient is using BiPAP without significant air leak, oral dryness, snore. There are no concerns about the air pressure. Sleep is refreshing. The patient is reporting good compliance. Daytime hypersomnia is improved. He reports a dry mouth and occasional headache. He does report that he breathes heavy for the first few minutes upon awakening in the morning. Test results personally reviewed with patient today: 30-day compliance download from October 03, 2024 shows AHI 5.7, 44.5 L/min airleak, 100% compliant with therapy, using the device 6 hours and 16 minutes nightly average. generic air d (more content not included)... Normal [facility] Serum anion gap measurementO rdered By: Luiza Moon on 10-04-2024 Anion gap [Moles/Vol] 3 mmol/L Low 5-15 [facility] Serum or plasma calcium toya urement (mass/volume)Ordered By: Luiza Moon on 10-04-2024 Calcium [Mass/Vol] 9.9 mg/dL 8.5-10.1 [facility] Serum or plasma creatinine m easurement (mass/volume)Ordered By: Luiza Moon on 10-04-2024 Creatinine [Mass/Vol] 0.85 mg/dL 0.70-1.30 [facility] Comment on above: The validity of the calculated GFR & GFRAA in patients over 70 years has not been determined. Clinical correlation is essential. Serum or plasma urea nitroge n measurement (mass/volume)Ordered By: Luiza Red on 10-04-2024 Urea nitrogen [Mass/Vol] 22 mg/dL High 7-18 [facility] Sodium levelOrdered By: Alessia Moon on 10-04-2024 Sodium [Moles/Vol] 142 mmol/L 136-145 [facility] Shoulder min 2 Viewson 09-22 Shoulder min 2 Views [facility] Imaging Services [address] [place], [place] [address] Shoulder min 2 Views MR#: [id number] Acct: [id number] Name: WELLINGTON GONZALEZ Rep #: [id number] : 1945 M 79 From: Denae monet MD PCP: Dr. Randa Joseph DO Status: REG CLI Study: Shoulder min 2 Views Date of Exam: 09/22/24 Exam# [id number] Ordering Dr: Randa Joseph DO :[id number] HISTORY: pain, weakness. TECHNIQUE: XR Shoulder Min 2 Views. COMPARISON: None. FINDINGS: BONES : No acute fracture identified. Old fracture of the distal clavicle. Old left second and third rib fractures. JOINTS: No dislocation. Mild degenerative change. Cervical spinal fusion hardware noted. SOFT TISSUES: Mild atelectasis in the left lung base. RAD/Shoulder min 2 Views IMPRESSION: No acute fracture or dislocation identified in the left shoulder. Old fractures of the left clavicle and upper ribs. Mild degenerative change. Electronically Signed: Denae Rivera MD at 10:42 EST Reading Location ID and State: [facility] / [place] Tel , Service support , CC: Dr. Randa Joseph DO Care Rep: Signed Normal [facility] Emergency Department Summary on 09-12-2024 Emergency Department Summary [facility] Medical Records Department [address] [place] [address] Emergency Department Summary 09/12/24 MR#: [id number] Acct: [id number] Name: WELLINGTON GONZALEZ Rep #: [id number] : 1945 79 From: Yung Ruvalcaba MD PCP: Dr. Randa Joseph, Status:DEP ER Location: ED HPI History of Present Illness Chief Complaint: Laceration Narrative Narrative: Patient 79-year-old male with history of GERD, asthma, celiac disease who presents to the emergency department with complaints of injury to the distal tip of the left index finger. Pay states he was using a tool for woodworking, when a blade struck him. Patient's tetanus vaccination is unknown. Patient states he did bleed for a while however he is here for evaluation. Denies any difficulty moving the area. [facility] Medical History JOSHUA (obstructive sleep apnea) History of back problems Fatigue Weight loss Lab test positive for detection of COVID-19 virus ( 04/2020) Left femoral shaft fracture Osteopenia 2012 femur fracture [facility] DVT (deep venous thrombosis) Restless leg syndrome Iron deficiency anemia GERD (gastroesophageal reflux disease) Celiac disease Asthma Home Medications ???Medication ???Instructions ???Recorded ???Last Taken ???Type pantoprazole 40 mg tablet,delayed 40 mg PO QHS gerd 04/03/14 07/15/17 History release tamsulosin 0.4 mg capsule 0.4 mg PO QHS Enlarged prostate 07/12/17 01/06/24 History ibuprofen 200 mg capsule 200 mg PO BID PRN Pain 09/10/18 Unknown History ergocalciferol (vitamin D2) 1,250 50,000 unit PO WE 10/21/19 Unknown History mcg (50,000 unit) capsule benralizumab 30 mg/mL subcutaneous 30 mg subcut Q4W #1 mL 12/28/20 Unknown Rx syringe (Fasenra) levothyroxine 50 mcg tablet 100 mcg PO DAILY 03/21/22 01/06/24 History fluticasone propionate 50 2 spray NASAL BID PRN Congestion 03/25/22 Unknown Rx mcg/actuation nasal #16 grams spray,suspension albuterol sulfate 90 mcg/actuation 1 - 2 puff inhalation Q4H PRN PRN 09/22/23 Unknown Rx aerosol inhaler Sob /Or Wheezing #8.5 grams budesonide-formoterol HFA 160 2 puff inhalation BID PRN asthma 11/25/23 Unknown History mcg-4.5 mcg/actuation aerosol inhaler (Symbicort) latanoprost 0.005 % eye drops 1 drp ophthalmic (eye) DAILY 11/25/23 Unknown History pramipexole 1.5 mg tablet 1.5 mg PO DAILY 11/25/23 Unknown History finasteride 5 mg tablet 5 mg PO DAILY 01/05/24 Unknown History Allergy/AdvReac Type Severity Reaction Status Date / Time gluten AdvReac Other Verified 09/12/24 17:23 Family History Father prostate cancer Surgical History History of colonoscopy ( 09/24/20) History of esophagogastroduodenoscopy (EGD) ( 09/24/20) History of hernia repair History of spinal surgery ( 2016) History of repair of hip fracture History of cholecystectomy colonoscopy Social History Smoking Status: Former smoker alcohol intake: never substance use type: does not use ROS ROS ED ROS Narrative Constitutional: Negative for fever, chills, weight loss, weakness Eyes: Negative for vision loss, vision change, double vision ENT: Negative for any sore throat, ear pain, congestion Cardiovascular: Negative for any chest pain, tightness, palpitations Respiratory: Negative for any cough, sputum production, hemoptysis, dyspnea, dyspnea on exertion, orthopnea Gastrointestinal: Negative for any abdominal pain, nausea, vomiting, diarrhea, constipation, blood in stool, blood in vomit : Negative for any urinary frequency, dysuria, retention, blood in urine Muscle skeletal: Negative for any neck pain, back pain Neurological: Negative for any headache, syncope, dizziness Skin: Negative for any rashes, itching, abrasions. Positive for laceration to left index finger Psychiatric: Negative for any depression, anxiety, stress, suicidal ideation, homicidal ideation Hematologic: Negative for any excessive bruising, easy bleeding EXAM Physical Exam Narrative Exam Narrative: Vital signs reviewed. Extremities: No peripheral edema, no signs of gross trauma or deformity. Active full range of motion of all extremities. Patient has 2 small areas of epidermal avulsion like lacerations to the radial aspect of the distal left index finger. Patient is full range of motion. This injury is superficial. No active bleeding. Neuro: Cranial nerves II through XII intact, no focal neurological deficits. Skin: Clean dry and intact with no rash, purpura, petechiae, vesicles or pustules. Backs/flank: No CVA tenderness, no midline spinal tenderness, no deformity. Psych: Normal mood and affect. No SI, HI or acute (more content not included)... [facility] Office Visit (UCWSTR ) WELLINGTON GONZALEZ ([id number]) 1945 M Date Time Provider Department 08/08/24 11:15 AM JAQUI FELTON [facility] During your visit today, we recorded the following information about you: Temperature Pulse Respiration Blood pressure 97.6 degrees 76/minute 21/minute 100/60 Weight 99.9 kg Jaqui Felton APRN.CNP 08/08/2024 12:48 PM Signed Subjective HPI HPI Wellington Cooper Caliciciisela is a 79 year old male who presents today for CC of right shoulder injury. This started 1.5 weeks ago. Has tried otc medication, also had shoulder steroid injection few days before injury. Symptoms are worsened by rom. Denies new numbness/tingling of right arm. 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 REPAIR INCISIONAL HERNIA with mesh, ventral REPAIR ING HERNIA,5+Y/O,REDUCIBL Left 09/10/2022 RPR 1ST INGUN HRNA AGE 5 YRS/> REDUCIBLE 04/10/2014 Right ALLERGIES Wheat Gluten and Adhesive MEDICATIONS levothyroxine (SYNTHROID) 88 mcg tablet Take 88 mcg by mouth once daily. fluticasone-salmeterol (ADVAIR DISKUS) 100-50 mcg/dose inhaler Inhale 1 Puff as instructed twice daily. latanoprost (XALATAN) 0.005 % ophthalmic solution Use in both eyes once daily. benralizumab (FASENRA) 30 mg/mL injection Inject subcutaneously [...] TAKE 1 TABLET BY MOUTH ONCE DAILY. cyclobenzaprine (FLEXERIL) 10 mg tablet TAKE 1/2 TO 1 TABLET BY MOUTH 3 TIMES DAILY NEEDED FOR SPASMS (Patient not taking: Reported on 08/08/2024) fluticasone (FLONASE) 50 mcg/actuation nasal spray Use 2 Sprays in each nostril once daily. (Patient not taking: Reported on 03/08/2024) albuterol HFA (PROAIR HFA) 90 mcg/actuation inhaler Inhale 2 Puffs as instructed every 6 hours as needed. (Patient not taking: Reported on 08/08/2024) FAMILY HISTORY Problem Relation Age of Onset [...] Social History Tobacco Use Smoking status: Former Current packs/day: 0.00 Types: Cigarettes Quit date: 10/19/1967 Years since quittin.8 Smokeless tobacco: Never Vaping Use Vaping status: Never Used Substance Use Topics Alcohol use: No Drug use: No ROS Objective Blood pressure 100/60, pulse 76, temperature 36.4 ?C (97.6 ?F), resp. rate 21, weight 99.9 kg (220 lb 3.8 oz), SpO2 98%. Physical Exam Constitutional: General: He is not in acute distress. Appearance: He is not toxic-appearing or diaphoretic. HENT: Head: Normocephalic and atraumatic. Pulmonary: Effort: Pulmonary effort is normal. No accessory muscle usage or respiratory distress. Musculoskeletal: Arms: Neurological: Mental Status: He is alert and oriented to person, place, and time. ASSESSMENT/PLAN: 1. Injur (more content not included)... Normal [facility] XR SHLDR >/=3V AP/KAIN AP/OTH R RTon 08-08-2024 XR SHLDR >/=3V AP/KAIN AP/OTHR RT * * *Final Report* * * DATE OF EXAM: Aug 08 2024 11:59AM WOX [id number] - XR SHLDR >/=3V AP/KAIN AP/OTHR RT / PROCEDURE REASON: Injury of right shoulder, initial encounter * * * * Physician Interpretation * * * * TITLE: XR SHLDR >/=3V AP/KAIN AP/OTHR RT CLINICAL INDICATION: Status post fall with pain TECHNIQUE: 3 view radiographic study of the right shoulder COMPARISON: None FINDINGS: No acute fracture or dislocation identified. Hypertrophic change about the acromioclavicular joints. IMPRESSION: No radiographic evidence of acute osseous injury [facility] Transcribe Date/Time: Aug 08 2024 12:06P Dictated by : HOLLEY CINTRON MD This examination was interpreted and the report reviewed and electronically signed by: HOLLEY CINTRON MD on Aug 08 2024 12:06PM EST [id number] Normal [facility] XR Shoulder - right 3 Viewso n 08-08-2024 IMPRESSION: No radiographic evidence of acute osseous injury Care Rep: [facility] Transcribe Date/Time: Aug 08 2024 12:06P Dictated by : HOLLEY CINTRON MD This examination was interpreted and the report reviewed and electronically signed by: HOLLEY CINTRON MD on Aug 08 2024 12:06PM EST DIVISION OF RADIOLOGY * * *Final Report* * * DATE OF EXAM: Aug 08 2024 11:59AM WOX [id number] - XR SHLDR >/=3V AP/KAIN AP/OTHR RT / PROCEDURE REASON: Injury of right shoulder, initial encounter * * * * Physician Interpretation * * * * TITLE: XR SHLDR >/=3V AP/KAIN AP/OTHR RT CLINICAL INDICATION: Status post fall with pain TECHNIQUE: 3 view radiographic study of the right shoulder COMPARISON: None FINDINGS: No acute fracture or dislocation identified. Hypertrophic change about the acromioclavicular joints. DIVISION OF RADIOLOGY Provider, [facility]iatric [facility] - 08/08/2024 * * *Final Report* * * DATE OF EXAM: Aug 08 2024 11:59AM WOX [id number] - XR SHLDR >/=3V AP/KAIN AP/OTHR RT / PROCEDURE REASON: Injury of right shoulder, initial encounter * * * * Physician Interpretation * * * * TITLE: XR SHLDR >/=3V AP/KAIN AP/OTHR RT CLINICAL INDICATION: Status post fall with pain TECHNIQUE: 3 view radiographic study of the right shoulder COMPARISON: None FINDINGS: No acute fracture or dislocation identified. Hypertrophic change about the acromioclavicular joints. IMPRESSION IMPRESSION: No radiographic evidence of acute osseous injury Care Rep: [facility] Transcribe Date/Time: Aug 08 2024 12:06P Dictated by : HOLLEY CINTRON MD This examination was interpreted and the report reviewed and electronically signed by: HOLLEY CINTRON MD on Aug 08 2024 12:06PM EST [facility] Radiology Study observation (narrative) [facility] XR Shoulder - right 3 ViewsO rdered By: [facility] Provider on 08-08-[address] [facility] Basic Metabolic Profile (BMP )on 07-04-2024 BUN/CRE 17.8 RATIO Normal - [facility] Comment on above: Performed By: #### L 501.9520, L506.1000, L500.2500 ####[facility] [address] [place], [address] CA,Total 9.7 mg/dL Normal 8.5-10.1 [facility] Comment on above: Performed By: #### L 501.9520, L506.1000, L500.2500 ####[facility] [address] [place], [address] Chloride [Moles/Vol] 109 mmol/L High 98-107 [facility] Comment on above: Performed By: #### L 501.9520, L506.1000, L500.2500 ####[facility] [address] [place], [address] CO2 [Moles/Vol] 27.0 mmol/L Normal 21.0-32.0 [facility] Comment on above: Performed By: #### L 501.9520, L506.1000, L500.2500 ####[facility] [address] [place], [address] Creatinine [Mass/Vol] 0.90 mg/dL Normal 0.70-1.30 [facility] Comment on above: Result Comment: The validity of the calculated GFR GFRAA in patients over 70 years has not been determined. Clinical correlation is essential. Performed By: #### L 501.9520, L506.1000, L500.2500 ####[facility] [address] [place], [address] EST GFR - AA 105 mL/min Normal >60 [facility] Comment on above: Result Comment: Afri can Ukrainian GFR Calc Performed By: #### L 501.9520, L506.1000, L500.2500 ####[facility] [address] [place], [address] GAP 5 Normal 5-15 [facility] Comment on above: Performed By: #### L 501.9520, L506.1000, L500.2500 ####[facility] [address] [place], [address] GFR/1.73 sq M.predicted among non-blacks MDRD (S/P/Bld) [Vol rate/Area] 87 mL/min/{1.73_m2} Normal >60 [facility] Comment on above: Result Comment: Non- GFR Calc Performed By: #### L 501.9520, L506.1000, L500.2500 ####[facility] [address] [place], [address] Glucose [Mass/Vol] 111 mg/dL High 74-106 [facility] Comment on above: Result Comment: Fast ing Glucose result from 100 to 125 mg/dL suggests IMPAIRED HOMEOSTASIS per A.D.A. criteria. Performed By: #### L 501.9520, L506.1000, L500.2500 ####[facility] [address] [place], [address] Potassium [Moles/Vol] 3.6 mmol/L Normal 3.5-5.1 [facility] Comment on above: Performed By: #### L 501.9520, L506.1000, L500.2500 ####[facility] [address] [place], [address] Sodium [Moles/Vol] 141 mmol/L Normal 136-145 [facility] Comment on above: Performed By: #### L 501.9520, L506.1000, L500.2500 ####[facility] [address] [place], [address] Urea nitrogen [Mass/Vol] 16 mg/dL Normal 7-18 [facility] Comment on above: Performed By: #### L 501.9520, L506.1000, L500.2500 ####[facility] [address] [place], [address] Thyroid Stim Hormone (TSH)on 07-04-2024 TSH 2.620 uIU/mL Normal 0.358-3.74 0 [facility] Comment on above: Performed By: #### L 501.9520, L506.1000, L500.2500 ####[facility] [address] [place], [address] Vitamin D,25 Hydroxyon 07-04 Vitamin D 25-OH 25.5 ng/mL Normal [facility] Comment on above: Result Comment: Kamille min D 25(OH) Status Range Deficiency <20 ng/mL (50nmol/L) Insufficiency 20 - 30 ng/mL (50 - 75 nmol/L) Sufficiency 30 - 100 ng/mL (75 - 250 nmol/L) Toxicity >100 ng/mL (>250 nmol/L) Performed By: #### L 501.9520, L506.1000, L500.2500 ####[facility] [address] [place], [address] PSA,Total - Annual Screenon 06-06-2024 PSA,TOT SCREEN 0.12 ng/mL Normal 0.00-4.00 [facility] Comment on above: Result Comment: This test was performed using the TPSA assay method for the [employer] chemistry system. Values obtained with different assay methods cannot be used interchangably. When changing PSA assays in the course of monitoring a patient, additional sequential testing should be carried out to confirm baseline values. Performed By: #### L 501.9910 ####[facility] [address] [place], [address] OVon 03-08-2024 [facility] Office Visit (UCTR ) WELLINGTON GONZALEZ ([id number]) 1945 M Date Time Provider Department 03/08/24 2:45 PM YAEL NAIR [facility] During your visit today, we recorded the following information about you: Temperature Pulse Respiration Blood pressure 98.6 degrees 70/minute 16/minute 120/60 Weight 98.8 kg Yael Nair APRN.PROVIDER ENROLLMENT SPECIALIST 03/08/2024 3:20 PM Signed This note was created using NoteWriter. Subjective Wellington Gonzalez is a 79 year old male. 79 year old male with PMH RLS, CAD, asthma, JOSHUA, celiac, GERD, and history of venous insufficiency presents for toenail complaints. Acute onset this past week Right great toe States his toenail was snagged on a sock Now is almost completely off. 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 No language specialist was used. Pain (foot) Pain location: right great toe. This is a new problem. The current episode started in the past 7 days. There has been a history of trauma. The problem occurs constantly. The problem has been gradually worsening. The pain is at a severity of 5/10. The pain is moderate. Pertinent negatives include no fever, inability to bear weight, itching, joint locking, joint swelling, limited range of motion, numbness, stiffness or tingling. The symptoms are aggravated by activity and standing. He has tried nothing for the symptoms. The treatment provided no relief. Family history does not include gout or rheumatoid arthritis. There is no history of diabetes, gout, osteoarthritis or rheumatoid arthritis. 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 REPAIR INCISIONAL HERNIA with mesh, ventral REPAIR ING HERNIA,5+Y/O,REDUCIBL Left 09/10/2022 RPR 1ST INGUN HRNA AGE 5 YRS/> REDUCIBLE 04/10/2014 Right ALLERGIES Wheat Gluten and Adhesive MEDICATIONS cyclobenzaprine (FLEXERIL) 10 mg tablet TAKE 1/2 TO 1 TABLET BY MOUTH 3 TIMES DAILY NEEDED FOR SPASMS levothyroxine (SYNTHROID) 88 mcg tablet Take 88 mcg by mouth once daily. fluticasone-salmeterol (ADVAIR DISKUS) 100-50 mcg/dose inhaler Inhale 1 Puff as instructed twice daily. latanoprost (XALATAN) 0.005 % ophthalmic solution Use in both eyes once daily. benralizumab (FASENRA) 30 mg/mL injection Inject subcutaneously [...] TAKE 1 TABLET BY MOUTH ONCE DAILY. albuterol HFA (PROAIR HFA) 90 mcg/actuation inhaler Inhale 2 Puffs as instructed every 6 hours as needed. fluticasone (FLONASE) 50 mcg/actuation nasal spray Use 2 Sprays in each nostril once daily. (Patient not taking: Reported on 03/08/2024) FAMILY HISTORY Problem Relation Age of Onset [...] Other Social History Tobacco Use Smoking status: F (more content not included)... [facility] Basophil percentageOrdered B y: Murray Mckee on 01-06-2024 Chloride [Moles/Vol] 111 mmol/L 98-107 [facility] Glucose [Mass/Vol] 94 mg/dL 74-106 [facility] Hemoglobin (Bld) [Mass/Vol] 11.5 g/dL 13.0-16.5 [facility] Potassium [Moles/Vol] 3.9 mmol/L 3.5-5.1 [facility] Comment on above: Slight Hemolysis, Re sult may be falsely increased. Sodium [Moles/Vol] 142 mmol/L 136-145 [facility] WBC (Bld) [#/Vol] 3.1 10*3/uL 4.4-11.0 [facility] Determination of erythrocyte mean corpuscular volume (MCV)Ordered By: Murray Mckee on 01-06-2024 MCV (RBC) [Entitic vol] 95.1 fL 80-94 [facility] Erythrocyte distribution wid th ratioOrdered By: Murray Mckee on 01-06-2024 Erythrocyte distribution width (RBC) [Ratio] 13.8 % 11.6-14.6 [facility] Erythrocyte distribution wid th standard deviationOrdered By: Murray Mckee on 01-06-2024 Erythrocyte distribution width (RBC) [Entitic vol] 48.7 fL 35.1-43.9 [facility] Hematocrit Auto (Bld) [Volum e fraction]Ordered By: Murray Mckee on 01-06-2024 Hematocrit (Bld) [Volume fraction] 34.6 % 40-54 [facility] Laboratory - Chemistry and C hemistry - challengeOrdered By: Murray Mckee on 01-06-2024 CO2 [Moles/Vol] 25.0 mmol/L 21.0-32.0 [facility] Urea nitrogen/Creatinine [Mass ratio] 22.2 mg/mg 08-07 [facility] - Hematology and Cell countsOrdered By: Murray Mckee on 01-06-2024 MCH (RBC) [Entitic mass] 31.6 pg 27.0-32.0 [facility] MCHC (RBC) [Mass/Vol] 33.2 g/dL 32-36 [facility] Platelet mean volume (Bld) [Entitic vol] 9.9 fL 6.2-12.0 [facility] Platelets (Bld) [#/Vol] 174 10*3/uL 150-450 [facility] No Panel InformationOrdered By: Murray Mckee on 01-06-2024 Estimated Creatinine Clearance Calc 89.77 ml/min [facility] Estimated GFR (MDRD) Amer 112 mL/min >60 [facility] Comment on above: GFR Calc Estimated GFR (MDRD) Non-Af Amer 92 mL/min >60 [facility] Comment on above: Non- GFR Calc RBC Auto (Bld) [#/Vol]Ordere d By: Murray Mckee on 01-06-2024 RBC (Bld) [#/Vol] 3.64 10*6/uL 4.6-6.2 [facility] Serum or plasma calcium toya urement (mass/volume)Ordered By: Murray Mckee on 01-06-2024 Calcium [Mass/Vol] 9.2 mg/dL 8.5-10.1 [facility] Serum or plasma creatinine m easurement (mass/volume)Ordered By: Murray Mckee on 01-06-2024 Creatinine [Mass/Vol] 0.85 mg/dL 0.70-1.30 [facility] Comment on above: The validity of the calculated GFR & GFRAA in patients over 70 years has not been determined. Clinical correlation is essential. Serum or plasma urea nitroge n measurement (mass/volume)Ordered By: Murray Mckee on 01-06-2024 Urea nitrogen [Mass/Vol] 19 mg/dL 7-18 [facility] Thin prep Papanicolaou smear with manual screeningOrdered By: Murrayesvin Mckee on 01-06-2024 Thin prep Papanicolaou smear with manual screening 6 5-15 [facility] Basophil percentageOrdered B y: David Unger on 11-19-2023 Chloride [Moles/Vol] 111 mmol/L 98-107 [facility] Glucose [Mass/Vol] 85 mg/dL 74-106 [facility] Hemoglobin (Bld) [Mass/Vol] 11.4 g/dL 13.0-16.5 [facility] Potassium [Moles/Vol] 3.7 mmol/L 3.5-5.1 [facility] Sodium [Moles/Vol] 139 mmol/L 136-145 [facility] WBC (Bld) [#/Vol] 2.7 10*3/uL 4.4-11.0 [facility] Determination of erythrocyte mean corpuscular volume (MCV)Ordered By: David Unger on 11-19-2023 MCV (RBC) [Entitic vol] 96.0 fL 80-94 [facility] Erythrocyte distribution wid th ratioOrdered By: David Unger on 11-19-2023 Erythrocyte distribution width (RBC) [Ratio] 14.4 % 11.6-14.6 [facility] Erythrocyte distribution wid th standard deviationOrdered By: David Unger on 11-19-2023 Erythrocyte distribution width (RBC) [Entitic vol] 50.2 fL 35.1-43.9 [facility] Hematocrit Auto (Bld) [Volum e fraction]Ordered By: David Unger on 11-19-2023 Hematocrit (Bld) [Volume fraction] 35.6 % 40-54 [facility] Laboratory - Chemistry and C hemistry - challengeOrdered By: David Unger on 11-19-2023 CO2 [Moles/Vol] 24.0 mmol/L 21.0-32.0 [facility] Urea nitrogen/Creatinine [Mass ratio] 15.6 mg/mg 10-20 [facility] Laboratory - Hematology and Cell countsOrdered By: David Unger on 11-19-2023 MCH (RBC) [Entitic mass] 30.7 pg 27.0-32.0 [facility] MCHC (RBC) [Mass/Vol] 32.0 g/dL 32-36 [facility] Platelets (Bld) [#/Vol] 169 10*3/uL 150-450 [facility] No Panel InformationOrdered By: David Unger on 11-19-2023 Estimated GFR (MDRD) Amer 140 mL/min >60 [facility] Comment on above: GFR Calc Estimated GFR (MDRD) Non-Af Amer 115 mL/min >60 [facility] Comment on above: Non- GFR Calc Platelet mean volume Pola-Ec ker (Bld) [Entitic vol]Ordered By: David Unger on 11-19-2023 Platelet mean volume (Bld) [Entitic vol] 10.9 fL 6.2-12.0 [facility] RBC Auto (Bld) [#/Vol]Ordere d By: David Unger on 11-19-2023 RBC (Bld) [#/Vol] 3.71 10*6/uL 4.6-6.2 [facility] Serum or plasma calcium toya urement (mass/volume)Ordered By: David Unger on 11-19-2023 Calcium [Mass/Vol] 8.9 mg/dL 8.5-10.1 [facility] Serum or plasma creatinine m easurement (mass/volume)Ordered By: David Unger on 11-19-2023 Creatinine [Mass/Vol] 0.70 mg/dL 0.70-1.30 [facility] Comment on above: The validity of the calculated GFR & GFRAA in patients over 70 years has not been determined. Clinical correlation is essential. Serum or plasma urea nitroge n measurement (mass/volume)Ordered By: David Unger on 11-19-2023 Urea nitrogen [Mass/Vol] 11 mg/dL 7-18 [facility] Thin prep Papanicolaou smear with manual screeningOrdered By: David Unger on 11-19-2023 Thin prep Papanicolaou smear with manual screening 4 5-15 [facility] Basophil percentageOrdered B y: David Unger on 11-13-2023 Chloride [Moles/Vol] 111 mmol/L 98-107 [facility] Glucose [Mass/Vol] 110 mg/dL 74-106 [facility] Comment on above: Fasting Glucose resu lt from 100 to 125 mg/dL suggests IMPAIRED HOMEOSTASIS per A.D.A. criteria. Hemoglobin (Bld) [Mass/Vol] 11.2 g/dL 13.0-16.5 [facility] Potassium [Moles/Vol] 3.4 mmol/L 3.5-5.1 [facility] Sodium [Moles/Vol] 140 mmol/L 136-145 [facility] WBC (Bld) [#/Vol] 2.5 10*3/uL 4.4-11.0 [facility] Determination of erythrocyte mean corpuscular volume (MCV)Ordered By: David Unger on 11-13-2023 MCV (RBC) [Entitic vol] 95.6 fL 80-94 [facility] Erythrocyte distribution wid th ratioOrdered By: David Unger on 11-13-2023 Erythrocyte distribution width (RBC) [Ratio] 14.0 % 11.6-14.6 [facility] Erythrocyte distribution wid th standard deviationOrdered By: David Unger on 11-13-2023 Erythrocyte distribution width (RBC) [Entitic vol] 49.4 fL 35.1-43.9 [facility] Hematocrit Auto (Bld) [Volum e fraction]Ordered By: David Unger on 11-13-2023 Hematocrit (Bld) [Volume fraction] 34.5 % 40-54 [facility] Laboratory - Chemistry and C hemistry - challengeOrdered By: David Unger on 11-13-2023 CO2 [Moles/Vol] 26.0 mmol/L 21.0-32.0 [facility] Urea nitrogen/Creatinine [Mass ratio] 19.0 mg/mg 10-20 [facility] Laboratory - Hematology and Cell countsOrdered By: David Unger on 11-13-2023 MCH (RBC) [Entitic mass] 31.0 pg 27.0-32.0 [facility] MCHC (RBC) [Mass/Vol] 32.5 g/dL 32-36 [facility] Platelets (Bld) [#/Vol] 166 10*3/uL 150-450 [facility] No Panel InformationOrdered By: David Unger on 11-13-2023 Estimated GFR (MDRD) Amer 132 mL/min >60 [facility] Comment on above: GFR Calc Estimated GFR (MDRD) Non-Af Amer 109 mL/min >60 [facility] Comment on above: Non- GFR Calc Platelet mean volume Pola-Ec ker (Bld) [Entitic vol]Ordered By: David Unger on 11-13-2023 Platelet mean volume (Bld) [Entitic vol] 10.1 fL 6.2-12.0 [facility] RBC Auto (Bld) [#/Vol]Ordere d By: David Unger on 11-13-2023 RBC (Bld) [#/Vol] 3.61 10*6/uL 4.6-6.2 [facility] Serum or plasma calcium toya urement (mass/volume)Ordered By: David Unger on 11-13-2023 Calcium [Mass/Vol] 8.7 mg/dL 8.5-10.1 [facility] Serum or plasma creatinine m easurement (mass/volume)Ordered By: David Unger on 11-13-2023 Creatinine [Mass/Vol] 0.74 mg/dL 0.70-1.30 [facility] Comment on above: The validity of the calculated GFR & GFRAA in patients over 70 years has not been determined. Clinical correlation is essential. Serum or plasma urea nitroge n measurement (mass/volume)Ordered By: David Unger on 11-13-2023 Urea nitrogen [Mass/Vol] 14 mg/dL 7-18 [facility] Thin prep Papanicolaou smear with manual screeningOrdered By: David Unger on 11-13-2023 Thin prep Papanicolaou smear with manual screening 3 5-15 [facility] Anaerobic cultureOrdered By: Merrill Burns on 10-22-2023 Bacteria identified Anaer cx Nom (Unsp spec) No anaerobic bacteria isolated. [facility] Bacteria identified Anaer cx Nom (Unsp spec) No anaerobic bacteria isolated. [facility] Bacteria identified Cx Nom ( Wound)Ordered By: Merrill Burns on 10-22-2023 Wound Culture Pseudomonas aeruginosa [facility] Wound Culture Pseudomonas aeruginosa [facility] Gram stain for investigation of transfusion reactionOrdered By: Merrill Burns on 10-22-2023 Microscopic observation Gram stain Nom (Unsp spec) [facility] Microscopic observation Gram stain Nom (Unsp spec) [facility] Absolute lymphocyte countOrd ered By: Randa Joseph on 10-20-2023 Lymphocytes Auto (Unsp spec) [#/Vol] 0.72 10*3/uL 0.83-4.51 [facility] Basophil percentageOrdered B y: Randa Joseph on 10-20-2023 Basophils/100 WBC (Bld) 0.0 % 0-1 [facility] Eosinophils/100 WBC (Bld) 0.0 % 0-5 [facility] Neutrophils (Bld) [#/Vol] 2.2 10*3/uL 2.0-7.7 [facility] Neutrophils/100 WBC (Bld) 64.7 % 47-70 [facility] WBC (Bld) [#/Vol] 3.4 10*3/uL 4.4-11.0 [facility] Bilirubin Test strip Ql (U)O rdered By: Randa Joseph on 10-20-2023 Bilirubin Ql (U) Negative Negative [facility] Blood erythrocytes count (nu mber/volume)Ordered By: Randa Joseph on 10-20-2023 RBC (Bld) [#/Vol] 3.52 10*6/uL 4.6-6.2 [facility] Blood hemoglobin measurement (mass/volume)Ordered By: Randa Joseph on 10-20-2023 Hemoglobin (Bld) [Mass/Vol] 11.2 g/dL 13.0-16.5 [facility] Blood lymphocytes/100 leukoc ytesOrdered By: Randa Joseph on 10-20-2023 Lymphocytes/100 WBC (Bld) 21.2 % 19-41 [facility] Blood monocytes/100 leukocyt esOrdered By: Randa Joseph on 10-20-2023 Monocytes/100 WBC (Bld) 13.8 % 0-10 [facility] Blood platelet mean volumeOr dered By: Randa Joseph on 10-20-2023 Platelet mean volume (Bld) [Entitic vol] 9.6 fL 6.2-12.0 [facility] Culture, urineOrdered By: Suzan Joseph on 10-20-2023 Bacteria identified Cx Nom (U) Pseudomonas aeruginosa [facility] Bacteria identified Cx Nom (U) Pseudomonas aeruginosa [facility] Determination of erythrocyte mean corpuscular volume (MCV)Ordered By: Randa Joseph on 10-20-2023 MCV (RBC) [Entitic vol] 94.9 fL 80-94 [facility] Hematocrit Auto (Bld) [Volum e fraction]Ordered By: Randa Joseph on 10-20-2023 Hematocrit (Bld) [Volume fraction] 33.4 % 40-54 [facility] Ketones Test strip Ql (U)Ord ered By: Randa Joseph on 10-20-2023 Ketones Ql (U) Negative Negative [facility] Laboratory - Hematology and Cell countsOrdered By: Randa Joseph on 10-20-2023 Erythrocyte distribution width (RBC) [Entitic vol] 48.4 fL 35.1-43.9 [facility] Erythrocyte distribution width (RBC) [Ratio] 13.9 % 11.6-14.6 [facility] Immature granulocytes/100 WBC (Bld) 0.300 % 0.0-0.9 [facility] Comment on above: IG% - Immature Granu locytes (promyelocytes, myelocytes and metamyelocytes) > 1% indicates that a LEFT SHIFT is Present. MCH (RBC) [Entitic mass] 31.8 pg 27.0-32.0 [facility] Nucleated RBC/100 WBC (Bld) [Ratio] 0 % 0-5 [facility] MCHC Auto (RBC) [Mass/Vol]Or dered By: Randa Joseph on 10-20-2023 MCHC (RBC) [Mass/Vol] 33.5 g/dL 32-36 [facility] Nitrite Test strip Ql (U)Ord ered By: Randa Joseph on 10-20-2023 Nitrite Ql (U) Positive Negative [facility] Platelets bldOrdered By: Maribell Joseph on 10-20-2023 Platelets (Bld) [#/Vol] 239 10*3/uL 150-450 [facility] Protein Test strip Ql (U)Ord ered By: Randa Joseph on 10-20-2023 Protein Ql (U) Negative Negative [facility] Urine blood detectionOrdered By: Randa Joseph on 10-20-2023 RBC Ql (U) 10 /ul Negative [facility] Urine clarityOrdered By: Maribell Joseph on 10-20-2023 Clarity (U) Sl. Cloudy Clear [facility] Urine color determinationOrd ered By: Randa Joseph on 10-20-2023 Color (U) Yellow Yellow [facility] Urine glucose detectionOrder ed By: Randa Joseph on 10-20-2023 Glucose Ql (U) Normal mg/dl Normal [facility] Urine leukocyte esterase det ection by dipstickOrdered By: Randa Joseph on 10-20-2023 Leukocyte esterase Test strip Ql (U) 500 /ul Negative [facility] Urine pHOrdered By: Randa thacker on 10-20-2023 pH (U) 6.5 [pH] 5.0 - 8.0 [facility] Urine specific gravity measu rementOrdered By: Randa Joseph on 10-20-2023 Specific gravity (U) [Rel density] 1.010 1.002-1.03 0 [facility] Urobilinogen Auto test strip Ql (U)Ordered By: Randa Joseph on 10-20-2023 Urobilinogen Ql (U) Normal mg/dl Normal [facility] Basophil percentageOrdered B y: Luiza Moon on 10-05-2023 Chloride [Moles/Vol] 115 mmol/L 98-107 [facility] Glucose [Mass/Vol] 86 mg/dL 74-106 [facility] Potassium [Moles/Vol] 3.7 mmol/L 3.5-5.1 [facility] Sodium [Moles/Vol] 145 mmol/L 136-145 [facility] Laboratory - Chemistry and C hemistry - challengeOrdered By: Luiza Moon on 10-05-2023 CO2 [Moles/Vol] 25.0 mmol/L 21.0-32.0 [facility] Urea nitrogen/Creatinine [Mass ratio] 23.1 mg/mg 10- [facility] No Panel InformationOrdered By: Luiza Moon on 10-05-2023 Estimated GFR (MDRD) Amer 117 mL/min >60 [facility] Comment on above: GFR Calc Estimated GFR (MDRD) Non-Af Amer 96 mL/min >60 [facility] Comment on above: Non- GFR Calc Thyroid Stimulating Hormone (TSH) 1.79 uIU/mL 0.358-3.74 [facility] Vitamin D 25-Hydroxy 34.0 ng/mL [facility] Comment on above: Vitamin D 25(OH) Sta tus Range Deficiency <20 ng/mL (50nmol/L) Insufficiency 20 - 30 ng/mL (50 - 75 nmol/L) Sufficiency 30 - 100 ng/mL (75 - 250 nmol/L) Toxicity >100 ng/mL (>250 nmol/L) Serum or plasma calcium toya urement (mass/volume)Ordered By: Luiza Moon on 10-05-2023 Calcium [Mass/Vol] 9.0 mg/dL 8.5-10.1 [facility] Serum or plasma creatinine m easurement (mass/volume)Ordered By: Luiza Moon on 10-05-2023 Creatinine [Mass/Vol] 0.82 mg/dL 0.70-1.30 [facility] Comment on above: The validity of the calculated GFR & GFRAA in patients over 70 years has not been determined. Clinical correlation is essential. Serum or plasma urea nitroge n measurement (mass/volume)Ordered By: Luiza Moon on 10-05-2023 Urea nitrogen [Mass/Vol] 19 mg/dL 05-05 [facility] Thin prep Papanicolaou smear with manual screeningOrdered By: Luiza Moon on 10-05-2023 Thin prep Papanicolaou smear with manual screening 5 5-15 [facility] Absolute lymphocyte countOrd ered By: Merrill Burns on 09-02-2023 Lymphocytes Auto (Unsp spec) [#/Vol] 0.58 10*3/uL 0.83-4.51 [facility] Basophil percentageOrdered B y: Merrill Burns on 09-02-2023 Basophils/100 WBC (Bld) 0.3 % 0-1 [facility] Bilirubin [Mass/Vol] 0.30 mg/dL 0.20-1.00 [facility] Comment on above: For patients on eltr ombopag therapy, use of Dimension Mildred TBIL is not recommended. Chloride [Moles/Vol] 109 mmol/L 98-107 [facility] Eosinophils/100 WBC (Bld) 0.0 % 0-5 [facility] Glucose [Mass/Vol] 111 mg/dL 74-106 [facility] Comment on above: Fasting Glucose resu lt from 100 to 125 mg/dL suggests IMPAIRED HOMEOSTASIS per A.D.A. criteria. Neutrophils (Bld) [#/Vol] 2.2 10*3/uL 2.0-7.7 [facility] Neutrophils/100 WBC (Bld) 67.8 % 47-70 [facility] Potassium [Moles/Vol] 3.7 mmol/L 3.5-5.1 [facility] Protein [Mass/Vol] 7.2 g/dL 6.4-8.2 [facility] Sodium [Moles/Vol] 145 mmol/L 136-145 [facility] WBC (Bld) [#/Vol] 3.3 10*3/uL 4.4-11.0 [facility] Blood erythrocytes count (nu mber/volume)Ordered By: Merrill Burns on 09-02-2023 RBC (Bld) [#/Vol] 3.62 10*6/uL 4.6-6.2 [facility] Blood hemoglobin measurement (mass/volume)Ordered By: Merrill Burns on 09-02-2023 Hemoglobin (Bld) [Mass/Vol] 11.2 g/dL 13.0-16.5 [facility] Blood lymphocytes/100 leukoc ytesOrdered By: Merrill Burns on 09-02-2023 Lymphocytes/100 WBC (Bld) 17.6 % 19-41 [facility] Blood manual differential co mment interpretation (narrative result)Ordered By: Merrill Burns on 09-02-2023 Manual differential comment Celio (Bld) [Interp] SCANNED [facility] Blood monocytes/100 leukocyt esOrdered By: Merrill Burns on 09-02-2023 Monocytes/100 WBC (Bld) 14.0 % 0-10 [facility] Blood platelet mean volumeOr dered By: Merrill Burns on 09-02-2023 Platelet mean volume (Bld) [Entitic vol] 9.5 fL 6.2-12.0 [facility] Determination of erythrocyte mean corpuscular volume (MCV)Ordered By: Merrill Burns on 09-02-2023 MCV (RBC) [Entitic vol] 98.6 fL 80-94 [facility] Hematocrit Auto (Bld) [Volum e fraction]Ordered By: Merrill Burns on 09-02-2023 Hematocrit (Bld) [Volume fraction] 35.7 % 40-54 [facility] INR in Blood by Coagulation assayOrdered By: Merrill Burns on 09-02-2023 INR Coag (Bld) [Relative time] 1.0 {INR} [facility] Laboratory - Chemistry and C hemistry - challengeOrdered By: Merrill Burns on 09-02-2023 ALP [Catalytic activity/Vol] 93 U/L 45-117 [facility] ALT [Catalytic activity/Vol] 33 U/L 16-61 [facility] CO2 [Moles/Vol] 28.0 mmol/L 21.0-32.0 [facility] Free T4 [Mass/Vol] 1.03 ng/dL 0.76-1.46 [facility] Globulin (S) [Mass/Vol] 3.7 g/dL 2.2-4.2 [facility] T4 [Mass/Vol] 8.4 ug/dL 4.5-12.1 [facility] Urea nitrogen/Creatinine [Mass ratio] 18.3 mg/mg 10-20 [facility] Laboratory - CoagulationOrde red By: Merrill Burns on 09-02-2023 aPTT Coag (Bld) [Time] 27.6 s 24.1-36.2 [facility] PT Coag (PPP) [Time] 13.7 s 11.7-14.9 [facility] Laboratory - Hematology and Cell countsOrdered By: Merrill Burns on 09-02-2023 Erythrocyte distribution width (RBC) [Entitic vol] 51.8 fL 35.1-43.9 [facility] Erythrocyte distribution width (RBC) [Ratio] 14.4 % 11.6-14.6 [facility] Immature granulocytes/100 WBC (Bld) 0.300 % 0.0-0.9 [facility] Comment on above: IG% - Immature Granu locytes (promyelocytes, myelocytes and metamyelocytes) > 1% indicates that a LEFT SHIFT is Present. MCH (RBC) [Entitic mass] 30.9 pg 27.0-32.0 [facility] Nucleated RBC/100 WBC (Bld) [Ratio] 0 % 0-5 [facility] MCHC Auto (RBC) [Mass/Vol]Or dered By: Merrill Burns on 09-02-2023 MCHC (RBC) [Mass/Vol] 31.4 g/dL 32-36 [facility] No Panel InformationOrdered By: Merrill Burns on 09-02-2023 Estimated Creatinine Clearance Calc 85.26 ml/min [facility] Estimated GFR (MDRD) Amer 117 mL/min >60 [facility] Comment on above: GFR Calc Estimated GFR (MDRD) Non-Af Amer 97 mL/min >60 [facility] Comment on above: Non- GFR Calc Free Triiodothyronine (T3) pg/dL 2.3 pg/mL 2.18-3.98 [facility] Thyroid Stimulating Hormone (TSH) 3.82 uIU/mL 0.358-3.74 [facility] Platelets bldOrdered By: Cristy Burns on 09-02-2023 Platelets (Bld) [#/Vol] 233 10*3/uL 150-450 [facility] Review by pathologistOrdered By: Merrill Burns on 09-02-2023 Pathologist review Celio (Unsp spec) [Interp] Reviewed [facility] Comment on above: Previous reported re sult: Eli burgess Edited by: KILEY on 09/07/23:0940Absolute LymphopeniaMacrocytic anemia.Clinical correlation suggested.Uriel Lemus D.O. 09/07/23 AMENDED REPORT 09/07/23 0940 PATH REV previously reported as: February Serum or plasma albumin toya urement (mass/volume)Ordered By: Merrill Burns on 09-02-2023 Albumin [Mass/Vol] 3.5 g/dL 3.2-5.0 [facility] Serum or plasma albumin/glob ulin mass ratioOrdered By: Merrill Burns on 09-02-2023 Albumin/Globulin [Mass ratio] 0.9 {ratio} 0.9-2.4 [facility] Serum or plasma calcium toya urement (mass/volume)Ordered By: Merrill Burns on 09-02-2023 Calcium [Mass/Vol] 8.3 mg/dL 8.5-10.1 [facility] Serum or plasma creatinine m easurement (mass/volume)Ordered By: Merrill Burns on 09-02-2023 Creatinine [Mass/Vol] 0.82 mg/dL 0.70-1.30 [facility] Comment on above: The validity of the calculated GFR & GFRAA in patients over 70 years has not been determined. Clinical correlation is essential. Serum or plasma transthyreti n measurement (mass/volume)Ordered By: Merrill Burns on 09-02-2023 Prealbumin [Mass/Vol] 19.5 mg/dL 20.0-40.0 [facility] Serum or plasma urea nitroge n measurement (mass/volume)Ordered By: Merrill Burns on 09-02-2023 Urea nitrogen [Mass/Vol] 15 mg/dL 7-18 [facility] Thin prep Papanicolaou smear with manual screeningOrdered By: Merrill Burns on 09-02-2023 Thin prep Papanicolaou smear with manual screening 25 U/L 15-37 [facility] Thin prep Papanicolaou smear with manual screening 8 - [facility] No Panel InformationOrdered By: Randa Joseph on 06-03-2023 Prostate Specific Antigen Screen 2.40 ng/mL 0.00-4.00 [facility] Comment on above: This test was perfor med using the TPSA assay method [facility]. Values obtained with differentassay methods cannot be used interchangably.When changing PSA assays in the course of monitoring apatient, additional sequential testing should be carriedout to confirm baseline values. Basophil percentageOrdered B y: Dr. Moon on 03-26-2023 Chloride [Moles/Vol] 110 mmol/L 98-107 [facility] Glucose [Mass/Vol] 121 mg/dL 74-106 [facility] Comment on above: Fasting Glucose resu lt from 100 to 125 mg/dL suggests IMPAIRED HOMEOSTASIS per A.D.A. criteria. Potassium [Moles/Vol] 4.0 mmol/L 3.5-5.1 [facility] Sodium [Moles/Vol] 142 mmol/L 136-145 [facility] Laboratory - Chemistry and C hemistry - challengeOrdered By: Dr. Moon on 03-26-2023 CO2 [Moles/Vol] 27.0 mmol/L 21.0-32.0 [facility] Urea nitrogen/Creatinine [Mass ratio] 14.9 mg/mg 10-20 [facility] No Panel InformationOrdered By: Dr. Moon on 03-26-2023 Estimated GFR (MDRD) Amer 100 mL/min >60 [facility] Comment on above: GFR Calc Estimated GFR (MDRD) Non-Af Amer 83 mL/min >60 [facility] Comment on above: Non- GFR Calc Thyroid Stimulating Hormone (TSH) 3.27 uIU/mL 0.358-3.74 [facility] Vitamin D 25-Hydroxy 44.1 ng/mL [facility] Comment on above: Vitamin D 25(OH) Sta tus Range Deficiency <20 ng/mL (50nmol/L) Insufficiency 20 - 30 ng/mL (50 - 75 nmol/L) Sufficiency 30 - 100 ng/mL (75 - 250 nmol/L) Toxicity >100 ng/mL (>250 nmol/L) Serum or plasma calcium toya urement (mass/volume)Ordered By: Dr. Moon on 03-26-2023 Calcium [Mass/Vol] 9.7 mg/dL 8.5-10.1 [facility] Serum or plasma creatinine m easurement (mass/volume)Ordered By: Dr. Moon on 03-26-2023 Creatinine [Mass/Vol] 0.94 mg/dL 0.70-1.30 [facility] Comment on above: The validity of the calculated GFR & GFRAA in patients over 70 years has not been determined. Clinical correlation is essential. Serum or plasma urea nitroge n measurement (mass/volume)Ordered By: Dr. Moon on 03-26-2023 Urea nitrogen [Mass/Vol] 14 mg/dL 7-18 [facility] Thin prep Papanicolaou smear with manual screeningOrdered By: Dr. Moon on 03-26-2023 Thin prep Papanicolaou smear with manual screening 5 5-15 [facility] No Panel InformationOrdered By: Dr. Moon on 12-03-2022 Thyroid Stimulating Hormone (TSH) 3.86 uIU/mL 0.358-3.74 [facility] Influenza virus A and B RNA and SARS-CoV-2 (COVID-19) N gene panel LIUDMILA+probe (Resp)on 10-21-2022 FLUAV RNA LIUDMILA+probe Ql (Unsp spec) Negative Negative for Influenza A by RT-PCR [facility] FLUBV RNA LIUDMILA+probe Ql (Unsp spec) Negative Negative for Influenza B by RT-PCR [facility] SARS-CoV-2 (COVID-19) RNA LIUDMILA+probe Ql (Resp) SARS-CoV-2 (Agent of COVID-19) Not Detected by RT-PCR or equivalent method. Not Detected [facility] Basophil percentageOrdered B y: Dr. Moon on 09-22-2022 Chloride [Moles/Vol] 109 mmol/L 98-107 [facility] Glucose [Mass/Vol] 101 mg/dL 74-106 [facility] Comment on above: Fasting Glucose resu lt from 100 to 125 mg/dL suggests IMPAIRED HOMEOSTASIS per A.D.A. criteria. Potassium [Moles/Vol] 3.9 mmol/L 3.5-5.1 [facility] Sodium [Moles/Vol] 145 mmol/L 136-145 [facility] Laboratory - Chemistry and C hemistry - challengeOrdered By: Dr. Moon on 09-22-2022 CO2 [Moles/Vol] 32.0 mmol/L 21.0-32.0 [facility] Urea nitrogen/Creatinine [Mass ratio] 13.0 mg/mg 10-20 [facility] No Panel InformationOrdered By: Dr. Moon on 09-22-2022 Estimated GFR (MDRD) Amer 102 mL/min >60 [facility] Comment on above: GFR Calc Estimated GFR (MDRD) Non-Af Amer 85 mL/min >60 [facility] Comment on above: Non- GFR Calc Thyroid Stimulating Hormone (TSH) 7.24 uIU/mL 0.358-3.74 [facility] Vitamin D 25-Hydroxy 36.3 ng/mL [facility] Comment on above: Vitamin D 25(OH) Sta tus Range Deficiency <20 ng/mL (50nmol/L) Insufficiency 20 - 30 ng/mL (50 - 75 nmol/L) Sufficiency 30 - 100 ng/mL (75 - 250 nmol/L) Toxicity >100 ng/mL (>250 nmol/L) Serum or plasma calcium toya urement (mass/volume)Ordered By: Dr. Moon on 09-22-2022 Calcium [Mass/Vol] 9.4 mg/dL 8.5-10.1 [facility] Serum or plasma creatinine m easurement (mass/volume)Ordered By: Dr. Moon on 09-22-2022 Creatinine [Mass/Vol] 0.92 mg/dL 0.70-1.30 [facility] Comment on above: The validity of the calculated GFR & GFRAA in patients over 70 years has not been determined. Clinical correlation is essential. Serum or plasma urea nitroge n measurement (mass/volume)Ordered By: Dr. Moon on 09-22-2022 Urea nitrogen [Mass/Vol] 12 mg/dL 7-18 [facility] Thin prep Papanicolaou smear with manual screeningOrdered By: Dr. Moon on 09-22-2022 Thin prep Papanicolaou smear with manual screening 4 5-15 [facility] ANES POSTPROC EVALon 022 ANES POSTPROC EVAL HNO ID: [id number] Author: Blanquita Trammell MD Service: ? Author Type: Anesthesiologist Type: Anesthesia Postprocedure Evaluation Filed: 09/10/2022 2:40 PM Note Text: POST ANESTHESIA EVALUATION NOTE : 1945 Procedure Summary Date: 09/10/22 Room / Location: MO OR04 / MO OR Anesthesia Start: 1238 Anesthesia Stop: 1409 Procedure: HERNIORRHAPHY INGUINAL RECURRENT REDUCIBLE (Left) Diagnosis: Left inguinal hernia (Left inguinal hernia [K40.90]) Surgeons: Maxx Mayer MD Responsible Provider: Donte Titus MD Anesthesia Type: general ASA Status: 3 Anesthesia Type: general Airway Type: LMA Last Vitals Vitals Value Taken Time BP 141/74 09/10/22 1430 Temp 09/10/22 1439 Pulse 61 09/10/22 1438 Resp 33 09/10/22 1438 SpO2 99 % 09/10/22 1438 Vitals shown include unvalidated device data. Post Anesthesia Patient Status Patient Evaluation: PACU. PACU/ICU Patient Condition: stable. Anticipated Disposition: phase 2 then home. Neurological Status: aware and responsive. Pulmonary Status: breathing comfortably on room air Airway Control: returned to baseline unsupported. Cardiovascular Status: stable. Pain Management: clinically adequate - multimodal analgesia pain management approach Postoperative Hydration: acceptable. Intraoperative Events: no significant anesthesia events Post Operative Nausea/Vomiting Status: no significant post operative nausea or vomiting Recommendation: continue current plan of care. Anesthesia Observations No Documentation SIGNATURE: Blanquita Trammell MD PATIENT NAME: Wellington Gonzalez DATE: September 10, 2022 TIME: 2:39 PM CSN: [id number] [facility] ANES PRE-OPon 09-10-2022 ANES PRE-OP HNO ID: [id number] Author: Donte Titus MD Service: Anesthesiology Author Type: Physician Type: Anesthesia Preprocedure Evaluation Filed: 09/10/2022 12:18 PM Note Text: ANESTHESIOLOGY DAY OF SURGERY NOTE : 1945 Procedure Information Date/Time: 09/10/22 1345 Procedure: HERNIORRHAPHY INGUINAL RECURRENT REDUCIBLE (Left) Location: MO OR04 / MO OR Surgeons: Maxx Mayer MD Estimated body mass index is 33.31 kg/m? as calculated from the following: Height as of 08/18/22: 184.2 cm (6' 0.5). Weight as of 08/18/22: 112.9 kg (249 lb). Most recent hematocrit and potassium results: Hematocrit 38.4 08/18/2022 Potassium 3.9 08/18/2022 Relevant Problems ANESTHESIA (+) JOSHUA (obstructive sleep apnea) CARDIO (+) Aortic root dilatation (HCC) (+) CAD (coronary artery disease) (+) DVT (deep venous thrombosis) (HCC) GI (+) GERD (gastroesophageal reflux disease) (+) Gastro-esophageal reflux disease without esophagitis -RENAL (+) UPJ obstruction, acquired PULMONARY (+) Asthma, moderate persistent (+) JOSHUA (obstructive sleep apnea) I - PHYSICAL EVALUATION AIRWAY Patient intubated: No. Tracheostomy tube not present Mallampati: II. TM distance: >3 FB. Neck ROM: full ROM without neurological symptoms. Mouth opening: adequate. Short neck: no. Thick neck: no Boyle present: no DENTAL Dental findings: teeth intact. Additional exam findings: no II - ANESTHESIA PLAN ASA Score: 3 Anesthetic Plan: general Airway type: LMA NPO Status: adequate Beta Tank Monitoring Plan Monitoring plan: Standard ASA. Post Procedure Analgesic Plan Postoperative analgesic plan: parenteral or oral opioids and multimodal analgesia. Informed Consent Anesthetic risks, benefits, alternatives, personnel and consent discussed: yes. Patient / Responsible [employer] agrees to proceed: yes Patient / Surrogate agrees to blood products: yes DNR status not reviewed with patient and/or family prior to surgery. Significant changes in the patient condition since the History and Physical, not otherwise documented in primary service progress note: no. Potential Anesthesia issues that may suggest increased risk of complications or contraindication to planned procedure: none. Vitals Value Taken Time BP 135/71 09/10/22 1208 Pulse Resp 16 09/10/22 1208 Temp 36 ?C (96.8 ?F) 09/10/22 1208 SpO2 98 % 09/10/22 1208 Facility-Administered Medications as of 09/10/2022 Medication Dose Route Frequency - lactated ringers iv infusion 5-30 mL/hr INTRAVENOUS CONTINUOUS - ceFAZolin iv piggyback 2 g in D5W (iso-osmotic) 100 mL (ANCEF) 2 g INTRAVENOUS Pre-Op Once - bupivacaine liposome (PF) 20 mL in NaCl (PF) 0.9% 20 mL X (OR/PROCEDURE) PRN Outpatient Medications as of 09/10/2022 Medication Sig - latanoprost (XALATAN) 0.005 % ophthalmic solution Use in both eyes once daily. - tamsulosin ER (FLOMAX) 0.4 mg cp24 TAKE 1 CAPSULE BY MOUTH ONCE DAILY. - pantoprazole DR (PROTONIX) 40 mg tablet TAKE 1 TABLET BY MOUTH ONCE DAILY. - levothyroxine (SYNTHROID) 88 mcg tablet Take 88 mcg by mouth once daily. - benralizumab (FASENRA) 30 mg/mL injection Inject subcutaneously every 8 weeks. - denosumab (PROLIA) 60 mg/mL Inject subcutaneously once every 6 months. - ibuprofen (MOTRIN) 200 mg tablet Take 200 mg by mouth every 6 hours as needed. With food. - ergocalciferol, vitamin D2, (DRISDOL) 50,000 unit capsule Take 1 capsule by mouth once each week. - fluticasone (FLONASE) 50 mcg/actuation nasal spray Use 2 Sprays in each nostril once daily. - albuterol HFA (PROAIR HFA) 90 mcg/actuation inhaler Inhale 2 Puffs as instructed every 6 hours as needed. I have interviewed and examined the patient. I have reviewed the medical record and/or the pre-anesthesia evaluation, pertinent labs, and test results. This contains updated information obtained within 48 hours of Surgery/Procedure. SIGNATURE: Donte Titus MD PATIENT NAME: Wellington Gonzalez DATE: September 10, 2022 TIME: 12:17 PM CSN: [id number] [facility] HISTORY PHYSICALon HISTORY PHYSICAL HNO ID: [id number] Author: Maxx Mayer MD Service: General Surgery Author Type: Physician Type: HANDP Filed: 09/10/2022 11:58 AM Note Text: HISTORY AND PHYSICAL Wellington Gonzalez 1945 REFERRING PHYSICIAN: Randa Joseph DO CHIEF [...] hernia (primary encounter diagnosis). PAST MEDICAL HISTORY PAST MEDICAL HISTORY Diagnosis Date Anemia Asthma [...] hernia 04/10/14 Snoring Sprue PAST SURGICAL HISTORY PAST SURGICAL HISTORY Procedure Laterality Date ARTHRP [...] OCD LESION FEMORAL CONDYLE 2011 left femor- [place] PAST SURGICAL HISTORY OF several eye surgeries, retinal issues. REPAIR INCISIONAL HERNIA with mesh, ventral RPR 1ST INGUN HRNA AGE 6 YRS/> REDUCIBLE 04/10/14 Right CURRENT MEDICATIONS Current Outpatient Medications Medication Sig benralizumab (FASENRA) [...] ALLERGIES: Wheat Gluten and Adhesive PERSONAL HISTORY: SOCIAL HISTORY Social History Tobacco Use Smoking status: Former Types: Cigarettes Quit date: 10/19/1967 Years since quittin.8 Smokeless tobacco: Never Vaping Use Vaping Use: Never used Substance Use Topics Alcohol use: No Drug use: No FAMILY HISTORY: FAMILY HISTORY FAMILY HISTORY Problem Relation Age of Onset [...] entered by the nurse and reviewed by nc Nursing Notes: Shanti Lei LPN 08/04/2022 2:28 PM Sign at exiting of workspace REVIEW OF SY (more content not included)... [facility] OPERATIVE NOon 09-10-2022 OPERATIVE NO HNO ID: [id number] Author: Maxx Mayer MD Service: General Surgery Author Type: Physician Type: Operative Report Filed: 09/10/2022 2:12 PM Note Text: OPERATIVE/PROCEDURE REPORT LOG ID: [id number] SURGERY/PROCEDURE DATE: 09/10/2022 INCISION/PROCEDURE START TIME: 1:09 PM INCISION CLOSE/PROCEDURE END TIME: 2:00 PM SURGEON(S)/PROCEDURALIST(S) AND HAM ROLLING MACHINE OPERATOR(S): Surgeon(s) and Role: * Maxx Mayer MD - Primary Registered Nurse Adon: Joana Mchugh RN SURGERY/PROCEDURE(S): Open left inguinal hernia repair with mesh ANESTHESIA: General SURGERY/PROCEDURE DETAILS: Patient was brought into the operating room. Placed in the supine position. Under excellent general anesthetic left lower quadrant inguinal area was sterilely prepped and draped in the usual fashion. Local was injected inguinal incision was made. Dissection was carried down the inferior epigastric vessels were very small and I just electrocauterized and was able to get through them without any bleeding. I dissected down to the external oblique fascia I opened the external bleak fascia extending it down toward the pubic tubercle and up towards the anterior superior iliac spine. Identified the ilioinguinal nerve I dissected it free and placed it inferiorly and protected it. I dissected the cord and vessel structures free and an indirect inguinal hernia was identified I detached it from the cord and vessel structures and placed it into its preperitoneal space. I placed a large mesh plug into the internal ring suturing it circumferentially around this with 0 Prolene. I took the onlay piece of mesh 2 sutures of 0 Prolene were used to tack it to the pubic tubercle I ran the 1 along the ilioinguinal ligament and the other along the shelving edge of the transversalis fascia. I brought the cord and vessel structures through the echeverria ring and brought those 2 sutures together superiorly. My hole was a little bit too large so I used 1 more suture to tighten the hole just ever so slightly just so that my fifth finger could get into it and the blood supply would be viable. The ilioinguinal nerve was then placed on top of the mesh the external bleak fascia was then brought together with 2-0 Vicryl. Local was injected subcu was brought together with 2-0 Vicryl. Deep dermal stitches of 3-0 Vicryl. And then a running 4-0 Monocryl on the skin. Steri-Strips were applied sterile dressings were applied and the patient tolerated the procedure well. Joana Bower RN was my housekeeping assistant. She assisted with retraction, visualization and performed skin closure. No additional surgeons or qualified residents were available. PRE-OP/PRE-PROCEDURE DIAGNOSIS: Left inguinal hernia POST-OP/POST-PROCEDURE DIAGNOSIS: Same as Preop ESTIMATED BLOOD LOSS: <20 mls SPECIMENS: None IMPLANTABLE DEVICES: Implant Name Type Inv. Item Serial No. Desk Maker Lot No. LRB No. Used Action MESH SURGIPRO LARGE POLYPROPYLENE SURGICAL NONABSORBABLE PLUG KNITTED - [id number] Mesh MESH SURGIPRO LARGE POLYPROPYLENE SURGICAL NONABSORBABLE PLUG KNITTED [employer] [id number] Left 1 Implanted DRAINS: None COMPLICATIONS: None PARTICIPATION IN SURGERY/PROCEDURE: I/primary surgeon/proceduralist performed the procedure with assistance. SIGNATURE: Maxx Mayer III, MD PATIENT NAME: Wellington Gonzalez DATE: September 10, 2022 TIME: 2:05 PM [facility] Basophil percentageOrdered B y: Dr. Joseph on 07-16-2022 Basophil percentage < 0.9 mg/dL 0.70-1.30 [facility] No Panel InformationOrdered By: Dr. Joseph on 07-16-2022 Bedside Estimated GFR (eGFR) > 60.0000 mL/min >60 [facility] Basophil percentageon 2021 Chloride [Moles/Vol] 112 mmol/L 98-107 [facility] Work Phone: Glucose [Mass/Vol] 103 mg/dL 74-106 [facility] Work Phone: Comment on above: Fasting Glucose resu lt from 100 to 125 mg/dL suggests IMPAIRED HOMEOSTASIS per A.D.A. criteria. Potassium [Moles/Vol] 3.9 mmol/L 3.5-5.1 [facility] Work Phone: Sodium [Moles/Vol] 140 mmol/L 136-145 [facility] Work Phone: Laboratory - Chemistry and C hemistry - challengeon 05-01-2022 CO2 [Moles/Vol] 26.0 mmol/L 21.0-32.0 [facility] Work Phone: Urea nitrogen/Creatinine [Mass ratio] 15.7 mg/mg 10-20 [facility] Work Phone: No Panel Informationon 05-01 Estimated GFR (MDRD) Amer 99 mL/min >60 [facility] Work Phone: Comment on above: GFR Calc Estimated GFR (MDRD) Non-Af Amer 82 mL/min >60 [facility] Work Phone: Comment on above: Non- GFR Calc Thyroid Stimulating Hormone (TSH) 5.12 uIU/mL 0.358-3.74 [facility] Work Phone: Serum or plasma calcium toya urement (mass/volume)on 05-01-2022 Calcium [Mass/Vol] 9.2 mg/dL 8.5-10.1 [facility] Work Phone: Serum or plasma creatinine m easurement (mass/volume)on 05-01-2022 Creatinine [Mass/Vol] 0.95 mg/dL 0.70-1.30 [facility] Work Phone: Comment on above: The validity of the calculated GFR & GFRAA in patients over 70 years has not been determined. Clinical correlation is essential. Serum or plasma urea nitroge n measurement (mass/volume)on 05-01-2022 Urea nitrogen [Mass/Vol] 15 mg/dL 7-18 [facility] Work Phone: Thin prep Papanicolaou smear with manual screeningon 05-01-2022 Thin prep Papanicolaou smear with manual screening 2 5-15 [facility] Work Phone: Basophil percentageon 2021 Chloride [Moles/Vol] 111 mmol/L 98-107 [facility] Work Phone: Glucose [Mass/Vol] 95 mg/dL 74-106 [facility] Work Phone: Potassium [Moles/Vol] 3.9 mmol/L 3.5-5.1 [facility] Work Phone: Sodium [Moles/Vol] 143 mmol/L 136-145 [facility] Work Phone: Laboratory - Chemistry and C hemistry - challengeon 02-19-2022 CO2 [Moles/Vol] 27.0 mmol/L 21.0-32.0 [facility] Work Phone: Urea nitrogen/Creatinine [Mass ratio] 19.9 mg/mg 10-20 [facility] Work Phone: No Panel Informationon 02-19 Estimated GFR (MDRD) Amer 120 mL/min >60 [facility] Work Phone: Comment on above: GFR Calc Estimated GFR (MDRD) Non-Af Amer 99 mL/min >60 [facility] Work Phone: Comment on above: Non- GFR Calc Thyroid Stimulating Hormone (TSH) 10.10 uIU/mL 0.358-3.74 [facility] Work Phone: Vitamin D 25-Hydroxy 57.5 ng/mL [facility] Work Phone: Comment on above: Vitamin D 25(OH) Sta tus Range Deficiency <20 ng/mL (50nmol/L) Insufficiency 20 - 30 ng/mL (50 - 75 nmol/L) Sufficiency 30 - 100 ng/mL (75 - 250 nmol/L) Toxicity >100 ng/mL (>250 nmol/L) Serum or plasma calcium toya urement (mass/volume)on 02-19-2022 Calcium [Mass/Vol] 8.7 mg/dL 8.5-10.1 [facility] Work Phone: Serum or plasma creatinine m easurement (mass/volume)on 02-19-2022 Creatinine [Mass/Vol] 0.80 mg/dL 0.70-1.30 [facility] Work Phone: Comment on above: The validity of the calculated GFR & GFRAA in patients over 70 years has not been determined. Clinical correlation is essential. Serum or plasma urea nitroge n measurement (mass/volume)on 02-19-2022 Urea nitrogen [Mass/Vol] 16 mg/dL 7-18 [facility] Work Phone: Thin prep Papanicolaou smear with manual screeningon 02-19-2022 Thin prep Papanicolaou smear with manual screening 5 5-15 [facility] Work Phone: Laboratory - Microbiology an d Antimicrobial susceptibilityon 10-01-2021 SARS-CoV-2 (COVID-19) RNA LIUDMILA+probe Ql (Unsp spec) Not detected [facility] Work Phone: CNOVon 01-12-2019 CNOV Office Visit (TACOK ) WELLINGTON GONZALEZ ([id number]) 1945 M Date Time Provider Department 01/12/19 10:15 AM CARMEN ECHEVARRIA During your visit today, we recorded the following information about you: Pulse Respiration Blood pressure 77/minute 18/minute 151/85 Carmen Echevarria MD 01/12/2019 11:02 AM Signed NEUROSURGERY FOLLOW UP OFFICE NOTE Carmen Echevarria MD Date of visit: January 11, 2019 Patient Name: Mr.Paul Allison Gonzalez Date of : 1945 Current Age: [age] year old MRN/E# [id number] Last Office Visit: 12/08/2018 Chief Complaint: This is a 73 year old male that presents for Patient presents with: Neck Pain . SUBJECTIVE: Mr. Gonzalez presents to the office today for a routine follow up visit with imaging for neck pain. He underwent a C3-7 laminectomy with lateral mass fixation and fusion on 05/10/[address] Echevarria. He was last seen on 09/29/2018 and had concerns of posterior neck stiffness and soreness. He felt overall improved from his operation and was sent for an additional course of physical therapy. He presents today for evaluation and plan of care. Symptoms: Other, cervical neck strain, decreased ROM. PREVIOUS CONSERVATIVE TREATMENTS: Physical Therapy: Date(s) 11/11/2018 NSAIDS PREVIOUS SURGERY: SURGERY #1: C3-7 laminectomy with lateral mass fixation and fusion 05/10/[address] Echevarrai PAIN EVALUATION 01/12/2019 Pain Level: 3 Pain Location: Neck-Posterior Description: [place] PAST MEDICAL HISTORY Diagnosis Date - Anemia - Asthma - Avascular necrosis (HCC) left hip - Bilateral cataracts - CAD (coronary artery disease) Reportedly clean heart cath January, - Celiac disease - Diverticulosis of colon (without mention of hemorrhage) - DVT (deep venous thrombosis) (HCC) - Esophageal reflux - Esophagitis, unspecified - GERD (gastroesophageal reflux disease) - Glaucoma fixed - Incisional hernia - Internal hemorrhoids without mention of complication - Nausea alone - Osteoporosis - Restless leg - Rhinitis, allergic - Right inguinal hernia 04/10/14 - Snoring - Sprue PAST SURGICAL HISTORY Procedure Laterality Date - CATARACT SURGERY, COMPLEX bilateral - CHOLECYSTECTOMY - COLONOSCOP W/ OR W/O BRSH SPEC Colonoscopy - COLONOSCOP W/ OR W/O BRSH SPEC 08/13/10 - EGD W/O BRSH SPECIMEN W/BX 08/13/10 - EGD W/O OR W/BRUSH/WASH 01/04/2015 EGD - EGD W/O OR W/BRUSH/WASH 04/03/16 EGD - left wrist surgery - ORIF OF THE OCD LESION FEMORAL CONDYLE 2011 left femor- [place] - PAST SURGICAL HISTORY OF several eye surgeries, retinal issues. - REPAIR INCIS HERNIA W MESH 05/10/2015 - REPAIR INCISIONAL HERNIA with mesh, ventral - REPAIR ING HERNIA,5+Y/O,REDUCIBL 04/10/14 Right - TOTAL HIP REPLACEMENT pt had 2 hip surgeries and then replacement, left FAMILY HISTORY Problem Relation Age of Onset - Prostate Cancer Father in his 60's - Heart Mother - COPD Mother - other (Other) Brother non-malig tumor in the brain - other (Other) Son non-malig tumor in bone of leg - other (Arthritis fam hx.) Other - other (cardiovascular disease fam hx.) Other - other (Osteoporosis fam hx) Other ALLERGIES Allergen Reactions - Wheat Gluten Mental Status Change, Intolerance, Diarrhea I get grouchy. Spouse has celiac disease. - Adhesive Rash Rash/blistering from surgical op site Current Outpatient Medications: Testosterone 12.5 mg/ 1.25 gram (1 %) glpm Apply 1 Pump as directed once daily. Disp: Rfl: ibuprofen (MOTRIN) 200 mg tablet Take 200 mg by mouth every 6 hours as needed. With food. Disp: Rfl: ergocalciferol, vitamin D2, (DRISDOL) 50,000 unit capsule Take 1 capsule by mouth once each week. Disp: Rfl: 0 tamsulosin ER (FLOMAX) 0.4 mg cp24 TAKE 1 CAPSULE BY MOUTH ONCE DAILY. Disp: 90 capsule Rfl: 3 fluticasone-salmeterol (ADVAIR DISKUS) 500-50 mcg/dose dsdv Inhale 1 Puff as instructed twice daily. Disp: Rfl: pantoprazole DR (PROTONIX) 40 mg tablet TAKE 1 TABLET BY MOUTH ONCE DAILY. Disp: 30 tablet Rfl: 0 fluticasone (FLONASE) 50 mcg/actuation nasal spray Use 2 Sprays in each nostril once daily. Disp: 1 Bottle Rfl: 6 clonazePAM (KLONOPIN) 1 mg tablet Take 1 tablet by mouth once daily. Along with the 0.5 mg tab Disp: 30 tablet Rfl: 0 clonazePAM (KLONOPIN) 0.5 mg tablet Take 1 tablet by mouth daily at bedtime. takes with 1mg tablet at bedtime Disp: 30 tablet Rfl: 0 pramipexole (MIRAPEX) 1.5 mg tablet Take 1 tablet by mouth daily at bedtime. Disp: 90 tablet Rfl: 1 albuterol HFA (PROAIR HFA) 90 mcg/actuation inhaler Inhale 2 Puffs as instructed every 6 hours as needed. Disp: 1 Inhaler Rfl: 2 No current facility-administered medications for this visit. REVIEW OF SYSTEMS GENERAL: No weight loss, malaise or fevers HEENT: Negative for frequent or significant headaches, No changes in hearing or vision, no nose bleeds or other nasal problems RESPIRATORY: cough, SOB secondary to asthma GI: No nausea, vomiting, or diarrhea : No history of dysuria, frequency or incontinence MUSCULOSKELETAL: Negative for joint pain or swelling, back pain or muscle pain and positive for posterior neck discomfort PSYCH: Negative for sleep disturbance, mood disorder and recent psychosocial stressors NEURO: No history of headaches, syncope, paralysis, seizures or tremors OBJECTIVE: BP 151/85 Pulse 77 Resp 18 SpO2 100% .PHYSICAL EXAM: GENERAL: Alert, pleasant, no distress, cooperative, oriented to person, place and time. HEENT: Normocephalic. No masses, lesions, tenderness or abnormalities NECK: supple; normal ROM, fair tenderness to cervical spine LUNGS: Clear without audible wheeze, on RA. EXTREMITY: no edema, no clubbing, no cyanosis, good pulses and no lesions GAIT: normal Inc: Well healed. Motor: Right Upper: Left Upper: Deltoid: 5/5 Deltoid: 5/5 Triceps: 5/5 Triceps: 5/5 Biceps: 5/5 Biceps: 5/5 Hand grasp 5/5l Hand grasp 5/5l DTR: DTR: 2+ 2+ Sensory: Sensory Exam:Normal, SILT Data Review IMAGING STUDIES: X-Ray performed on 01/11/2019. His plain x-rays were satisfactory and show no evidence of hardware complication. Personal review of medical records: I reviewed with the patient, history, physical exam, the images and the chart. ASSESSMENT/PLAN: 1. Cervical myelopathy (HCC) - ICD9: 721.1, ICD10: G95.9 Patient is doing very well. He has progressed in a very satisfactory manner. His x-rays look stable. No further follow-up is needed. Patient will return to see me on an as-needed basis. Carmen Echevarria MD Referring Provider: SELF [[id number]] Allergies As of Date: 01/12/2019 Noted Allergy Reaction WHEAT GLUTEN 02/06/2010 1 - Mental Status Change 5 - Intolerance 6 - Diarrhea Comments: I get grouchy. Spouse has celiac disease. ADHESIVE 05/18/2015 2 - Rash Comments: Rash/blistering from surgical op site Date Reviewed: 01/12/2019 Reviewed by: Carmen Echevarria - Fully Assessed Reason for Visit: Neck Pain [135] Primary Visit Diagnosis:Cervical myelopathy (HCC) [G95.9] Prescriptions as of 01/12/2019 Sig: TESTOSTERONE 12.5 MG/1.25 GRA* Apply 1 Pump as directed once* IBUPROFEN 200 MG TABLET Take 200 mg by mouth every 6 * ERGOCALCIFEROL (VITAMIN D2) 5* Take 1 capsule by mouth once * TAMSULOSIN 0.4 MG CAPSULE TAKE 1 CAPSULE BY MOUTH ONCE * FLUTICASONE 500 MCG-SALMETERO* Inhale 1 Puff as instructed t* PANTOPRAZOLE 40 MG TABLET,DEL* TAKE 1 TABLET BY MOUTH ONCE D* FLUTICASONE PROPIONATE 50 MCG* Use 2 Sprays in each nostril * CLONAZEPAM 1 MG TABLET Take 1 tablet by mouth once d* CLONAZEPAM 0.5 MG TABLET Take 1 tablet by mouth daily * PRAMIPEXOLE 1.5 MG TABLET Take 1 tablet by mouth daily * ALBUTEROL SULFATE HFA 90 MCG/* Inhale 2 Puffs as instructed * Problem List As Of Date 01/12/2019 Noted Resolved DVT (deep venous thrombosis) [I82.409] INVALID FOR* More... Asthma, moderate persistent [J45.40] INVALID FOR* More... GERD (gastroesophageal reflux disease) [K21.9] INVALID FOR* More... Celiac disease [K90.0] INVALID FOR* More... More... S/P prosthetic total arthroplasty of the hip [Z*INVALID FOR* More... Osteoporosis [M81.0] INVALID FOR* More... Restless legs syndrome (RLS) [G25.81] INVALID FOR* More... Wrist fracture, right [S62.101A] INVALID FOR* Incisional hernia [K43.2] INVALID FOR* Lower urinary tract symptoms (LUTS) [R39.9] INVALID FOR* BPH (benign prostatic hyperplasia) [N40.0] INVALID FOR* UPJ obstruction, acquired [N13.5] INVALID FOR* Acute gastritis without mention of hemorrhage [*INVALID FOR*01/04/2015 Abdominal pain, epigastric [R10.13] INVALID FOR*01/04/2015 Pulmonary interstitial fibrosis (HCC) [J84.10] INVALID FOR* Gastro-esophageal reflux disease without esopha*INVALID FOR* Aortic root dilatation (HCC) [I77.810] INVALID FOR* Fatigue [R53.83] INVALID FOR* Cervical myelopathy (HCC) [G95.9] INVALID FOR* Medications Discontinued During This Encounter acetaminophen (TYLENOL) 500 mg tablet 10/09/2017 01/12/2019 Class: Historical Med Route: ORAL Sig: Take 2 tablets by mouth every 6 hours as needed. Disc: Reason for discontinue is not on file. ferrous sulfate, dried (IRON) 159 mg* 01/12/2019 Class: Historical Med Route: ORAL Sig: Take by mouth. Disc: Reason for discontinue is not on file. POTASSIUM CHLORIDE ORAL 01/12/2019 Class: Historical Med Route: ORAL Sig: Take 1 tablet by mouth daily with food. Disc: Reason for discontinue is not on file. Tadalafil (CIALIS) 20 mg tablet 8 ta* 5 02/22/2013 01/12/2019 Route: ORAL Sig: Take 1 tablet by mouth as needed (1 hour prior to anticipated intercourse). Disc: Reason for discontinue is not on file. tamsulosin ER (FLOMAX) 0.4 mg cap 07/12/2017 01/12/2019 Class: Historical Med Route: ORAL Sig: Take 1 capsule by mouth once daily. Every day 1/2 hour following the same meal each day. Disc: Reason for discontinue is not on file. Disposition: Return if symptoms worsen or fail to improve. Follow-up and Disposition History Recorded Encounter Status:Closed by CARMEN ECHEVARRIA MD on 01/12/19 [facility] PROGRESSon 01-12-2019 Protein mass conc HNO ID: [id number] Author: Carmen Echevarria Service: ? Author Type: Physician Type: Progress Notes Filed: 01/12/2019 11:02 AM Note Text: NEUROSURGERY FOLLOW UP OFFICE NOTE Carmen Echevarria MD Date of visit: January 11, 2019 Patient Name: Mr.Paul Allison Gonzalez Date of : 1945 Current Age: [age] year old MRN/E# [id number] Last Office Visit: 12/08/2018 Chief Complaint: This is a 73 year old male that presents for Patient presents with: Neck Pain . SUBJECTIVE: Mr. Gonzalez presents to the office today for a routine follow up visit with imaging for neck pain. He underwent a C3-7 laminectomy with lateral mass fixation and fusion on 05/10/[address] Echevarria. He was last seen on 09/29/2018 and had concerns of posterior neck stiffness and soreness. He felt overall improved from his operation and was sent for an additional course of physical therapy. He presents today for evaluation and plan of care. Symptoms: Other, cervical neck strain, decreased ROM. PREVIOUS CONSERVATIVE TREATMENTS: Physical Therapy: Date(s) 11/11/2018 NSAIDS PREVIOUS SURGERY: SURGERY #1: C3-7 laminectomy with lateral mass fixation and fusion 05/10/[address] Echevarria PAIN EVALUATION 01/12/2019 Pain Level: 3 Pain Location: Neck-Posterior Description: [facility] PAST MEDICAL HISTORY Diagnosis Date - Anemia - Asthma - Avascular necrosis (HCC) left hip - Bilateral cataracts - CAD (coronary artery disease) Reportedly clean heart cath January, - Celiac disease - Diverticulosis of colon (without mention of hemorrhage) - DVT (deep venous thrombosis) (HCC) - Esophageal reflux - Esophagitis, unspecified - GERD (gastroesophageal reflux disease) - Glaucoma fixed - Incisional hernia - Internal hemorrhoids without mention of complication - Nausea alone - Osteoporosis - Restless leg - Rhinitis, allergic - Right inguinal hernia 04/10/14 - Snoring - [place] PAST SURGICAL HISTORY Procedure Laterality Date - CATARACT SURGERY, COMPLEX bilateral - CHOLECYSTECTOMY - COLONOSCOP W/ OR W/O BRSH SPEC Colonoscopy - COLONOSCOP W/ OR W/O BRSH SPEC 08/13/10 - EGD W/O BRSH SPECIMEN W/BX 08/13/10 - EGD W/O OR W/BRUSH/WASH 01/04/2015 EGD - EGD W/O OR W/BRUSH/WASH 04/03/16 EGD - left wrist surgery - ORIF OF THE OCD LESION FEMORAL CONDYLE 2011 left femor- [place] - PAST SURGICAL HISTORY OF several eye surgeries, retinal issues. - REPAIR INCIS HERNIA W MESH 05/10/2015 - REPAIR INCISIONAL HERNIA with mesh, ventral - REPAIR ING HERNIA,5+Y/O,REDUCIBL 04/10/14 Right - TOTAL HIP REPLACEMENT pt had 2 hip surgeries and then replacement, left FAMILY HISTORY Problem Relation Age of Onset - Prostate Cancer Father in his 60's - Heart Mother - COPD Mother - other (Other) Brother non-malig tumor in the brain - other (Other) Son non-malig tumor in bone of leg - other (Arthritis fam hx.) Other - other (cardiovascular disease fam hx.) Other - other (Osteoporosis fam hx) Other ALLERGIES Allergen Reactions - Wheat Gluten Mental Status Change, Intolerance, Diarrhea I get grouchy. Spouse has celiac disease. - Adhesive Rash Rash/blistering from surgical op site Current Outpatient Medications: Testosterone 12.5 mg/ 1.25 gram (1 %) glpm Apply 1 Pump as directed once daily. Disp: Rfl: ibuprofen (MOTRIN) 200 mg tablet Take 200 mg by mouth every 6 hours as needed. With food. Disp: Rfl: ergocalciferol, vitamin D2, (DRISDOL) 50,000 unit capsule Take 1 capsule by mouth once each week. Disp: Rfl: 0 tamsulosin ER (FLOMAX) 0.4 mg cp24 TAKE 1 CAPSULE BY MOUTH ONCE DAILY. Disp: 90 capsule Rfl: 3 fluticasone-salmeterol (ADVAIR DISKUS) 500-50 mcg/dose dsdv Inhale 1 Puff as instructed twice daily. Disp: Rfl: pantoprazole DR (PROTONIX) 40 mg tablet TAKE 1 TABLET BY MOUTH ONCE DAILY. Disp: 30 tablet Rfl: 0 fluticasone (FLONASE) 50 mcg/actuation nasal spray Use 2 Sprays in each nostril once daily. Disp: 1 Bottle Rfl: 6 clonazePAM (KLONOPIN) 1 mg tablet Take 1 tablet by mouth once daily. Along with the 0.5 mg tab Disp: 30 tablet Rfl: 0 clonazePAM (KLONOPIN) 0.5 mg tablet Take 1 tablet by mouth daily at bedtime. takes with 1mg tablet at bedtime Disp: 30 tablet Rfl: 0 pramipexole (MIRAPEX) 1.5 mg tablet Take 1 tablet by mouth daily at bedtime. Disp: 90 tablet Rfl: 1 albuterol HFA (PROAIR HFA) 90 mcg/actuation inhaler Inhale 2 Puffs as instructed every 6 hours as needed. Disp: 1 Inhaler Rfl: 2 No current facility-administered medications for this visit. REVIEW OF SYSTEMS GENERAL: No weight loss, malaise or fevers HEENT: Negative for frequent or significant headaches, No changes in hearing or vision, no nose bleeds or other nasal problems RESPIRATORY: cough, SOB secondary to asthma GI: No nausea, vomiting, or diarrhea : No history of dysuria, frequency or incontinence MUSCULOSKELETAL: Negative for joint pain or swelling, back pain or muscle pain and positive for posterior neck discomfort PSYCH: Negative for sleep disturbance, mood disorder and recent psychosocial stressors NEURO: No history of headaches, syncope, paralysis, seizures or tremors OBJECTIVE: BP 151/85 Pulse 77 Resp 18 SpO2 100% .PHYSICAL EXAM: GENERAL: Alert, pleasant, no distress, cooperative, oriented to person, place and time. HEENT: Normocephalic. No masses, lesions, tenderness or abnormalities NECK: supple; normal ROM, fair tenderness to cervical spine LUNGS: Clear without audible wheeze, on RA. EXTREMITY: no edema, no clubbing, no cyanosis, good pulses and no lesions GAIT: normal Inc: Well healed. Motor: Right Upper: Left Upper: Deltoid: 5/5 Deltoid: 5/5 Triceps: 5/5 Triceps: 5/5 Biceps: 5/5 Biceps: 5/5 Hand grasp 5/5l Hand grasp 5/5l DTR: DTR: 2+ 2+ Sensory: Sensory Exam:Normal, SILT Data Review IMAGING STUDIES: X-Ray performed on 01/11/2019. His plain x-rays were satisfactory and show no evidence of hardware complication. Personal review of medical records: I reviewed with the patient, history, physical exam, the images and the chart. ASSESSMENT/PLAN: 1. Cervical myelopathy (HCC) - ICD9: 721.1, ICD10: G95.9 Patient is doing very well. He has progressed in a very satisfactory manner. His x-rays look stable. No further follow-up is needed. Patient will return to see me on an as-needed basis. Carmen Echevarria MD Normal [facility] DX CERVICAL 2V AP/LATon 09-18 DX CERVICAL 2V AP/LAT Performed at [facility] APPROVED BY: Ricardo Darby MD EXAM TITLE:DX CERVICAL SPINE 2 VIEWS DATE:06/09/2018 10:34 COMPARISON: 07/07/2018 CT cervical spine CLINICAL INDICATION/HISTORY: Surgery April 2018, follow-up exam, intermittent posterior neck pain TECHNIQUE: AP and lateral view the cervical spine FINDINGS/ impression: postsurgical changes C3-C7 levels with posterior decompression and transfacet screws with vertical fixation rods and posterior bone grafting. No hardware complication is seen. Degenerative disc space narrowing and endplate changes at the C5-6 level with posterior spurs, unchanged. At C7-T1 level, 2 mm degenerative anterolisthesis, unchanged No acute interval change from the previous CT scanner [facility] CT CERVICAL SPINE W/O CONTRA STon 07-07-2018 CT CERVICAL SPINE W/O CONTRAST Performed at [facility] APPROVED BY: Jaqui Jo MD EXAMINATION: CT CERVICAL SPINE WITHOUT CONTRAST CLINICAL HISTORY: G 95.9. Cervical myelopathy. TECHNIQUE: CT of the cervical spine without IV contrast. Spiral, high resolution axial images were obtained from the skull base to the cervicothoracic junction with sagittal and coronal planar reconstructions. MQ: [id number] CT Dose-Length Product (DLP): 365.89 mGy*cm CT Dose Reduction Employed: Automated exposure control (AEC) was used. COMPARISON: No prior available. RESULT: Counting reference: Craniocervical junction. Anatomic Variants: None. Postsurgical change: Prior laminectomy at the C3-C7 levels with bilateral posterior seb and pedicle screw fixation at C3-C7 levels. Alignment: Alignment is anatomic. Craniocervical junction: Craniocervical junction is normal. Osseous structures/fracture: There is minimal compression deformity of T1 and T2 superior endplates. No evidence of a lytic or blastic process in the visualized spine. Cervical soft tissues: The paraspinal soft tissues are within normal limits. C2-C3: Probable mild central canal stenosis due to minimal disc bulging and endplate hypertrophy. Minimal left neural foraminal narrowing due to facet joint hypertrophy. C3-C4: Posterior decompression. No definite neural foraminal narrowing. C4-C5: Posterior decompression. Mild left neural foraminal narrowing due to uncovertebral joint and facet joint hypertrophy. Disc space narrowing. C5-C6: Bilateral neural foramina narrowing due to facet joint and uncovertebral joint hypertrophy. Posterior decompression. Disc space narrowing with mild disc osteophyte complex.. C6-C7: Significant right neural foraminal narrowing due to facet joint and uncovertebral joint hypertrophy. Mild disc osteophyte complex. Minimal left neural foraminal narrowing. C7-T1: Canal and foramina are patent. IMPRESSION: Postsurgical changes at the C3-C7 levels. Minimal compression deformity of T1 and T2 superior endplates. Multilevel degenerative neural foraminal narrowing most pronounced on the right at the C6-C7 level. Multilevel cervical degenerative disc disease. C2-C3 probable mild central canal stenosis. Anatomic Variant: None. Assume 7 cervical vertebrae with counting from the craniocervical junction. Normal [facility] Office Visit: UC: Keith Fall risk assessment No Invalid Interpretation Code [facility] Work Phone: Protein mass conc Done Invalid Interpretation Code [facility] Work Phone: Tobacco smoking status NHIS Never smoker Invalid Interpretation Code [facility] Work Phone: Vital Signs Date Time Vital Sign Value Performing Clinician Facility 03-28-2025 10:23-0400 Body height 182.[address] Randa Joseph DO Work Phone: [facility] 03-28-2025 10:23-0400 Body temperature 96.9 [degF] Dr. Randa Joseph DO Work Phone: [facility] 03-28-2025 10:23-0400 Diastolic blood pressure 55 mm[Hg] Dr. Randa Joseph DO Work Phone: [facility] 03-28-2025 10:23-0400 Heart rate 57 /min Dr. Randa Joseph DO Work Phone: [facility] 03-28-2025 10:23-0400 Respiratory rate 16 /min Dr. Randa Joseph DO Work Phone: [facility] 03-28-2025 10:23-0400 SaO2% (BldA) [Mass fraction] 99 % Dr. Randa Joseph DO Work Phone: [facility] 03-28-2025 10:23-0400 Systolic blood pressure 128 mm[Hg] Dr. Randa Joseph DO Work Phone: [facility] 03-28-2025 07:33-0400 Body mass index (BMI) [Ratio] 28.7 kg/m2 Dr. Randa Joseph DO Work Phone: [facility] 03-28-2025 07:33-0400 Body temperature 97.2 [degF] Dr. Randa Joseph DO Work Phone: [facility] 03-28-2025 07:33-0400 Body weight 96.[address] Randa Joseph DO Work Phone: [facility] 03-28-2025 07:33-0400 Diastolic blood pressure 59 mm[Hg] Dr. Randa Joseph DO Work Phone: [facility] 03-28-2025 07:33-0400 Heart rate 60 /min Dr. Randa Joseph DO Work Phone: [facility] 03-28-2025 07:33-0400 Respiratory rate 20 /min Dr. Randa Joseph DO Work Phone: [facility] 03-28-2025 07:33-0400 SaO2% (BldA) [Mass fraction] 95 % Dr. Randa Joseph DO Work Phone: [facility] 03-28-2025 07:33-0400 Systolic blood pressure 107 mm[Hg] Dr. Randa Joseph DO Work Phone: [facility] 03-27-2025 11:02-0400 Body temperature 96.7 [degF] Dr. Randa Joseph DO Work Phone: [facility] 03-27-2025 11:02-0400 Diastolic blood pressure 64 mm[Hg] Dr. Randa Joseph DO Work Phone: [facility] 03-27-2025 11:02-0400 Heart rate 68 /min Dr. Randa Joseph DO Work Phone: [facility] 03-27-2025 11:02-0400 Respiratory rate 18 /min Dr. Randa Joseph DO Work Phone: [facility] 03-27-2025 11:02-0400 Systolic blood pressure 120 mm[Hg] Dr. Randa Joseph DO Work Phone: [facility] 03-16-2025 08:50-0400 Body temperature 96 [degF] Dr. Rnada Joseph DO Work Phone: [facility] 03-16-2025 08:50-0400 Diastolic blood pressure 47 mm[Hg] Dr. Randa Joseph DO Work Phone: [facility] 03-16-2025 08:50-0400 Heart rate 71 /min Dr. Randa Joseph DO Work Phone: [facility] 03-16-2025 08:50-0400 Respiratory rate 16 /min Dr. Randa Joseph DO Work Phone: [facility] 03-16-2025 08:50-0400 Systolic blood pressure 106 mm[Hg] Dr. Randa Joseph DO Work Phone: [facility] 03-01-2025 09:39-0400 Body temperature 98.2 [degF] Dr. Randa Joseph DO Work Phone: [facility] 03-01-2025 09:39-0400 Body weight 98.[address] Randa Joseph DO Work Phone: [facility] 03-01-2025 09:39-0400 Diastolic blood pressure 66 mm[Hg] Dr. Randa Joseph DO Work Phone: [facility] 03-01-2025 09:39-0400 Heart rate 64 /min Dr. Randa Joseph DO Work Phone: [facility] 03-01-2025 09:39-0400 Respiratory rate 16 /min Dr. Randa Joseph DO Work Phone: [facility] 03-01-2025 09:39-0400 SaO2% (BldA) [Mass fraction] 97 % Dr. Randa Joseph DO Work Phone: [facility] 03-01-2025 09:39-0400 Systolic blood pressure 121 mm[Hg] Dr. Randa Joseph DO Work Phone: [facility] 02-27-2025 11:24-0400 Body temperature 98.1 [degF] Dr. Randa Joseph DO Work Phone: [facility] 02-27-2025 11:24-0400 Diastolic blood pressure 67 mm[Hg] Dr. Randa Joseph DO Work Phone: [facility] 02-27-2025 11:24-0400 Heart rate 62 /min Dr. Randa Joseph DO Work Phone: [facility] 02-27-2025 11:24-0400 Respiratory rate 14 /min Dr. Randa Joseph DO Work Phone: [facility] 02-27-2025 11:24-0400 Systolic blood pressure 142 mm[Hg] Dr. Randa Joseph DO Work Phone: [facility] 01-24-2025 14:06-0400 Body height 182.[address] Randa Joseph DO Work Phone: [facility] 01-24-2025 14:06-0400 Body temperature 97.7 [degF] Dr. Randa Joseph DO Work Phone: [facility] 01-24-2025 14:06-0400 Diastolic blood pressure 72 mm[Hg] Dr. Randa Joseph DO Work Phone: [facility] 01-24-2025 14:06-0400 Heart rate 72 /min Dr. Randa Joseph DO Work Phone: [facility] 01-24-2025 14:06-0400 Respiratory rate 18 /min Dr. Randa Joseph DO Work Phone: [facility] 01-24-2025 14:06-0400 SaO2% (BldA) [Mass fraction] 99 % Dr. Randa Joseph DO Work Phone: [facility] 01-24-2025 14:06-0400 Systolic blood pressure 134 mm[Hg] Dr. Randa Joseph DO Work Phone: [facility] 12-07-2024 08:46-0500 Body mass index (BMI) [Ratio] 29.1 kg/m2 Dr. Randa Joseph DO Work Phone: [facility] 12-07-2024 08:46-0500 Body temperature 97.4 [degF] Dr. Randa Joseph DO Work Phone: [facility] 12-07-2024 08:46-0500 Body weight 97.[address] Randa Joseph DO Work Phone: [facility] 12-07-2024 08:46-0500 Diastolic blood pressure 60 mm[Hg] Dr. Randa Joseph DO Work Phone: [facility] 12-07-2024 08:46-0500 Heart rate 70 /min Dr. Randa Joseph DO Work Phone: [facility] 12-07-2024 08:46-0500 Respiratory rate 18 /min Dr. Randa Joseph DO Work Phone: [facility] 12-07-2024 08:46-0500 SaO2% (BldA) [Mass fraction] 97 % Dr. Randa Joseph DO Work Phone: [facility] 12-07-2024 08:46-0500 Systolic blood pressure 109 mm[Hg] Dr. Randa Joseph DO Work Phone: [facility] 11-30-2024 14:00-0500 Body height 182.[address] Randa Joseph DO Work Phone: [facility] 11-30-2024 14:00-0500 Body temperature 97.7 [degF] Dr. Randa Joseph DO Work Phone: [facility] 11-30-2024 14:00-0500 Diastolic blood pressure 58 mm[Hg] Dr. Randa Joseph DO Work Phone: [facility] 11-30-2024 14:00-0500 Heart rate 72 /min Dr. Randa Joseph DO Work Phone: [facility] 11-30-2024 14:00-0500 Respiratory rate 16 /min Dr. Randa Joseph DO Work Phone: [facility] 11-30-2024 14:00-0500 SaO2% (BldA) [Mass fraction] 98 % Dr. Randa Joseph DO Work Phone: [facility] 11-30-2024 14:00-0500 Systolic blood pressure 128 mm[Hg] Dr. Randa Joseph DO Work Phone: [facility] 11-07-2024 12:45-0500 Body weight 97.[address] Randa Joseph DO Work Phone: [facility] 11-07-2024 12:45-0500 Heart rate 81 /min Dr. Randa Joseph DO Work Phone: [facility] 11-07-2024 12:45-0500 SaO2% (BldA) [Mass fraction] 97 % Dr. Randa Joseph DO Work Phone: [facility] 11-05-2024 17:16-0500 Body temperature 98.2 [degF] Dr. Randa Joseph DO Work Phone: [facility] 11-05-2024 17:16-0500 Diastolic blood pressure 71 mm[Hg] Dr. Randa Joseph DO Work Phone: [facility] 11-05-2024 17:16-0500 Heart rate 66 /min Dr. Randa Joseph DO Work Phone: [facility] 11-05-2024 17:16-0500 Respiratory rate 13 /min Dr. Randa Joseph DO Work Phone: [facility] 11-05-2024 17:16-0500 SaO2% (BldA) [Mass fraction] 98 % Dr. Randa Joseph DO Work Phone: [facility] 11-05-2024 17:16-0500 Systolic blood pressure 142 mm[Hg] Dr. Randa Joseph DO Work Phone: [facility] 11-05-2024 13:08-0500 Body mass index (BMI) [Ratio] 28.2 kg/m2 Dr. Randa Joseph DO Work Phone: [facility] 11-05-2024 13:08-0500 Body weight 94.[address] Randa Joseph DO Work Phone: [facility] 10-13-2024 13:29-0500 Body temperature 97.6 [degF] Dr. Randa Joseph DO Work Phone: [facility] 10-13-2024 13:29-0500 Diastolic blood pressure 59 mm[Hg] Dr. Randa Joseph DO Work Phone: [facility] 10-13-2024 13:29-0500 Heart rate 75 /min Dr. Randa Joseph DO Work Phone: [facility] 10-13-2024 13:29-0500 Respiratory rate 16 /min Dr. Randa Joseph DO Work Phone: [facility] 10-13-2024 13:29-0500 SaO2% (BldA) [Mass fraction] 98 % Dr. Randa Joseph DO Work Phone: [facility] 10-13-2024 13:29-0500 Systolic blood pressure 124 mm[Hg] Dr. Randa Joseph DO Work Phone: [facility] 10-04-2024 14:04-0500 Body mass index (BMI) [Ratio] 28.7 kg/m2 Dr. Randa Joseph DO Work Phone: [facility] 10-04-2024 14:04-0500 Body temperature 97 [degF] Dr. Randa Joseph DO Work Phone: [facility] 10-04-2024 14:04-0500 Body weight 96.[address] Randa Joseph DO Work Phone: [facility] 10-04-2024 14:04-0500 Diastolic blood pressure 62 mm[Hg] Dr. Randa Joseph DO Work Phone: [facility] 10-04-2024 14:04-0500 Heart rate 68 /min Dr. Randa Joseph DO Work Phone: [facility] 10-04-2024 14:04-0500 Respiratory rate 16 /min Dr. Randa Joseph DO Work Phone: [facility] 10-04-2024 14:04-0500 SaO2% (BldA) [Mass fraction] 97 % Dr. Randa Joseph DO Work Phone: [facility] 10-04-2024 14:04-0500 Systolic blood pressure 129 mm[Hg] Dr. Randa Joseph DO Work Phone: [facility] 10-04-2024 08:18-0500 Body mass index (BMI) [Ratio] 28.7 kg/m2 Dr. Randa Joseph DO Work Phone: [facility] 10-04-2024 08:18-0500 Body temperature 97.4 [degF] Dr. Randa Joseph DO Work Phone: [facility] 10-04-2024 08:18-0500 Body weight 96.[address] Randa Joseph DO Work Phone: [facility] 10-04-2024 08:18-0500 Diastolic blood pressure 71 mm[Hg] Dr. Randa Joseph DO Work Phone: [facility] 10-04-2024 08:18-0500 Heart rate 73 /min Dr. Randa Joseph DO Work Phone: [facility] 10-04-2024 08:18-0500 Respiratory rate 20 /min Dr. Randa Joseph DO Work Phone: [facility] 10-04-2024 08:18-0500 SaO2% (BldA) [Mass fraction] 96 % Dr. Randa Joseph DO Work Phone: [facility] 10-04-2024 08:18-0500 Systolic blood pressure 123 mm[Hg] Dr. Randa Joseph DO Work Phone: [facility] 09-12-2024 18:21-0500 Body temperature 96.8 [degF] Dr. Randa Joseph DO Work Phone: [facility] 09-12-2024 18:21-0500 Diastolic blood pressure 89 mm[Hg] Dr. Randa Joseph DO Work Phone: [facility] 09-12-2024 18:21-0500 Heart rate 80 /min Dr. Randa Joseph DO Work Phone: [facility] 09-12-2024 18:21-0500 Respiratory rate 16 /min Dr. Randa Joseph DO Work Phone: [facility] 09-12-2024 18:21-0500 SaO2% (BldA) [Mass fraction] 99 % Dr. Randa Joseph DO Work Phone: [facility] 09-12-2024 18:21-0500 Systolic blood pressure 137 mm[Hg] Dr. Randa Joseph DO Work Phone: [facility] 09-12-2024 17:23-0500 Body mass index (BMI) [Ratio] 29.4 kg/m2 Dr. Randa Joseph DO Work Phone: [facility] 09-12-2024 17:23-0500 Body weight 98.[address] Randa Joseph DO Work Phone: [facility] 08-08-2024 11:19-0400 Body mass index (BMI) [Ratio] 29.06 kg/m2 Jaqui Felton APRN.PROVIDER ENROLLMENT SPECIALIST Work Phone: [facility] 08-08-2024 11:19-0400 Body temperature 97.59 [degF] Jaqui Felton METAL STAMPING MACHINE OPERATOR.PROVIDER ENROLLMENT SPECIALIST Work Phone: [facility] 08-08-2024 11:19-0400 Body weight 99.9 kg Jaqui Felton METAL STAMPING MACHINE OPERATOR.PROVIDER ENROLLMENT SPECIALIST Work Phone: [facility] 08-08-2024 11:19-0400 Diastolic blood pressure 60 mm[Hg] Jaqui Felton METAL STAMPING MACHINE OPERATOR.PROVIDER ENROLLMENT SPECIALIST Work Phone: [facility] 08-08-2024 11:19-0400 Heart rate 76 /min Jaqui Felton METAL STAMPING MACHINE OPERATOR.PROVIDER ENROLLMENT SPECIALIST Work Phone: [facility] 08-08-2024 11:19-0400 Respiratory rate 21 /min Jaqui Felton METAL STAMPING MACHINE OPERATOR.PROVIDER ENROLLMENT SPECIALIST Work Phone: [facility] 08-08-2024 11:19-0400 SaO2% (BldA) [Mass fraction] 98 % Jaqui Felton METAL STAMPING MACHINE OPERATOR.PROVIDER ENROLLMENT SPECIALIST Work Phone: [facility] 08-08-2024 11:19-0400 Systolic blood pressure 100 mm[Hg] Jaqui Felton METAL STAMPING MACHINE OPERATOR.PROVIDER ENROLLMENT SPECIALIST Work Phone: [facility] 03-08-2024 14:53-0400 Body mass index (BMI) [Ratio] 28.74 kg/m2 Yael Nair METAL STAMPING MACHINE OPERATOR.PROVIDER ENROLLMENT SPECIALIST Work Phone: [facility] 03-08-2024 14:53-0400 Body temperature 98.6 [degF] Yael Nair METAL STAMPING MACHINE OPERATOR.PROVIDER ENROLLMENT SPECIALIST Work Phone: [facility] 03-08-2024 14:53-0400 Body weight 98.8 kg Yael Nair METAL STAMPING MACHINE OPERATOR.PROVIDER ENROLLMENT SPECIALIST Work Phone: [facility] 03-08-2024 14:53-0400 Diastolic blood pressure 60 mm[Hg] Yael Nair METAL STAMPING MACHINE OPERATOR.PROVIDER ENROLLMENT SPECIALIST Work Phone: [facility] 03-08-2024 14:53-0400 Heart rate 70 /min Yael Nair METAL STAMPING MACHINE OPERATOR.PROVIDER ENROLLMENT SPECIALIST Work Phone: [facility] 03-08-2024 14:53-0400 Respiratory rate 16 /min Yael Anir METAL STAMPING MACHINE OPERATOR.PROVIDER ENROLLMENT SPECIALIST Work Phone: [facility] 03-08-2024 14:53-0400 SaO2% (BldA) [Mass fraction] 96 % Yael Nair METAL STAMPING MACHINE OPERATOR.PROVIDER ENROLLMENT SPECIALIST Work Phone: [facility] 03-08-2024 14:53-0400 Systolic blood pressure 120 mm[Hg] Yael Nair METAL STAMPING MACHINE OPERATOR.PROVIDER ENROLLMENT SPECIALIST Work Phone: [facility] 02-04-2024 08:35-0400 Body temperature 98.5 [degF] Dr. Randa Joseph Work Phone: [facility] 02-04-2024 08:35-0400 Diastolic blood pressure 67 mm[Hg] Dr. Randa Joseph Work Phone: [facility] 02-04-2024 08:35-0400 Heart rate 65 /min Dr. Randa Joseph Work Phone: [facility] 02-04-2024 08:35-0400 Respiratory rate 20 /min Dr. Randa Joseph Work Phone: [facility] 02-04-2024 08:35-0400 Systolic blood pressure 140 mm[Hg] Dr. Randa Jospeh Work Phone: [facility] 01-26-2024 11:11-0400 Body temperature 98.2 [degF] Dr. Randa Joseph Work Phone: [facility] 01-26-2024 11:11-0400 Body weight 99.[address] Randa Joseph Work Phone: [facility] 01-26-2024 11:11-0400 Diastolic blood pressure 62 mm[Hg] Dr. Randa Joseph Work Phone: [facility] 01-26-2024 11:11-0400 Heart rate 73 /min Dr. Randa Joseph Work Phone: [facility] 01-26-2024 11:11-0400 Respiratory rate 16 /min Dr. Randa Joseph Work Phone: [facility] 01-26-2024 11:11-0400 SaO2% (BldA) [Mass fraction] 98 % Dr. Randa Joseph Work Phone: [facility] 01-26-2024 11:11-0400 Systolic blood pressure 119 mm[Hg] Dr. Randa Joseph Work Phone: [facility] 01-14-2024 09:32-0400 Body temperature 96.5 [degF] Dr. Randa Joseph Work Phone: [facility] 01-14-2024 09:32-0400 Diastolic blood pressure 69 mm[Hg] Dr. Randa Joseph Work Phone: [facility] 01-14-2024 09:32-0400 Heart rate 69 /min Dr. Randa Joseph Work Phone: [facility] 01-14-2024 09:32-0400 Respiratory rate 18 /min Dr. Randa Joseph Work Phone: [facility] 01-14-2024 09:32-0400 Systolic blood pressure 142 mm[Hg] Dr. Randa Joseph Work Phone: [facility] 01-06-2024 07:27-0400 Body height 182.[address] Randa Joseph Work Phone: [facility] 01-06-2024 07:27-0400 Body weight 101.[address] Randa Joseph Work Phone: [facility] 01-05-2024 09:28-0400 Body mass index (BMI) [Ratio] 30.4 kg/m2 Dr. Randa Joseph Work Phone: [facility] 12-31-2023 09:42-0400 Body mass index (BMI) [Ratio] 28.8 kg/m2 Dr. Randa Joseph Work Phone: [facility] 12-31-2023 09:42-0400 Body temperature 96.9 [degF] Dr. Randa Joseph Work Phone: [facility] 12-31-2023 09:42-0400 Diastolic blood pressure 81 mm[Hg] Dr. Randa Joseph Work Phone: [facility] 12-31-2023 09:42-0400 Heart rate 67 /min Dr. Randa Joseph Work Phone: [facility] 12-31-2023 09:42-0400 Respiratory rate 18 /min Dr. Randa Joseph Work Phone: [facility] 12-31-2023 09:42-0400 Systolic blood pressure 141 mm[Hg] Dr. Randa Joseph Work Phone: [facility] 12-18-2023 13:41-0500 Body height 182.[address] Randa Joseph Work Phone: [facility] 12-18-2023 13:41-0500 Body mass index (BMI) [Ratio] 29.5 kg/m2 Dr. Randa Joseph Work Phone: [facility] 12-18-2023 13:41-0500 Body temperature 96.8 [degF] Dr. Randa Joseph Work Phone: [facility] 12-18-2023 13:41-0500 Body weight 98.[address] Randa Joseph Work Phone: [facility] 12-18-2023 13:41-0500 Diastolic blood pressure 74 mm[Hg] Dr. Randa Joseph Work Phone: [facility] 12-18-2023 13:41-0500 Heart rate 78 /min Dr. Randa Joseph Work Phone: [facility] 12-18-2023 13:41-0500 Respiratory rate 16 /min Dr. Randa Joseph Work Phone: [facility] 12-18-2023 13:41-0500 SaO2% (BldA) [Mass fraction] 98 % Dr. Randa Joseph Work Phone: [facility] 12-18-2023 13:41-0500 Systolic blood pressure 142 mm[Hg] Dr. Randa Joseph Work Phone: [facility] 12-18-2023 00:28-0500 Body weight 99.[address] Randa Joseph Work Phone: [facility] 12-17-2023 09:21-0500 Body mass index (BMI) [Ratio] 28.8 kg/m2 Dr. Randa Joseph Work Phone: [facility] 12-17-2023 09:21-0500 Body temperature 97.1 [degF] Dr. Randa Joseph Work Phone: [facility] 12-17-2023 09:21-0500 Diastolic blood pressure 73 mm[Hg] Dr. Randa Joseph Work Phone: [facility] 12-17-2023 09:21-0500 Heart rate 71 /min Dr. Randa Joseph Work Phone: [facility] 12-17-2023 09:21-0500 Respiratory rate 18 /min Dr. Randa Joseph Work Phone: [facility] 12-17-2023 09:21-0500 Systolic blood pressure 143 mm[Hg] Dr. Randa Joseph Work Phone: [facility] 11-25-2023 13:33-0500 Body temperature 98.2 [degF] Dr. Randa Joseph Work Phone: [facility] 11-25-2023 13:33-0500 Body weight 101.[address] Randa Joseph Work Phone: [facility] 11-25-2023 13:33-0500 Diastolic blood pressure 69 mm[Hg] Dr. Randa Joseph Work Phone: [facility] 11-25-2023 13:33-0500 Heart rate 77 /min Dr. Randa Joseph Work Phone: [facility] 11-25-2023 13:33-0500 Respiratory rate 16 /min Dr. Randa Joseph Work Phone: [facility] 11-25-2023 13:33-0500 SaO2% (BldA) [Mass fraction] 97 % Dr. Randa Joseph Work Phone: [facility] 11-25-2023 13:33-0500 Systolic blood pressure 127 mm[Hg] Dr. Randa Joseph Work Phone: [facility] 11-19-2023 00:29-0500 Body weight 99.[address] Randa Joseph Work Phone: [facility] 11-17-2023 09:19-0500 Body mass index (BMI) [Ratio] 28.8 kg/m2 Dr. Randa Joseph Work Phone: [facility] 11-17-2023 09:19-0500 Body temperature 97 [degF] Dr. Randa Joseph Work Phone: [facility] 11-17-2023 09:19-0500 Diastolic blood pressure 94 mm[Hg] Dr. Randa Joseph Work Phone: [facility] 11-17-2023 09:19-0500 Heart rate 74 /min Dr. Randa Joseph Work Phone: [facility] 11-17-2023 09:19-0500 Respiratory rate 20 /min Dr. Randa Joseph Work Phone: [facility] 11-17-2023 09:19-0500 Systolic blood pressure 146 mm[Hg] Dr. Randa Joseph Work Phone: [facility] 11-06-2023 15:27-0500 Body temperature 97.2 [degF] Dr. Randa Joseph Work Phone: [facility] 11-06-2023 15:27-0500 Diastolic blood pressure 72 mm[Hg] Dr. Randa Joseph Work Phone: [facility] 11-06-2023 15:27-0500 Heart rate 63 /min Dr. Randa Joseph Work Phone: [facility] 11-06-2023 15:27-0500 Respiratory rate 16 /min Dr. Randa Joseph Work Phone: [facility] 11-06-2023 15:27-0500 Systolic blood pressure 137 mm[Hg] Dr. Randa Joseph Work Phone: [facility] 11-06-2023 14:28-0500 Body height 182.[address] Randa Joseph Work Phone: [facility] 11-06-2023 14:28-0500 SaO2% (BldA) [Mass fraction] 98 % Dr. Randa Joseph Work Phone: [facility] 11-06-2023 12:51-0500 Body mass index (BMI) [Ratio] 30.5 kg/m2 Dr. Randa Joseph Work Phone: [facility] 11-06-2023 12:51-0500 Body temperature 96.5 [degF] Dr. Randa Joseph Work Phone: [facility] 11-06-2023 12:51-0500 Body weight 102.[address] Randa Joseph Work Phone: [facility] 11-06-2023 12:51-0500 Diastolic blood pressure 63 mm[Hg] Dr. Randa Joseph Work Phone: [facility] 11-06-2023 12:51-0500 Heart rate 71 /min Dr. Randa Joseph Work Phone: [facility] 11-06-2023 12:51-0500 Respiratory rate 18 /min Dr. Randa Joseph Work Phone: [facility] 11-06-2023 12:51-0500 SaO2% (BldA) [Mass fraction] 97 % Dr. Randa Joseph Work Phone: [facility] 11-06-2023 12:51-0500 Systolic blood pressure 142 mm[Hg] Dr. Randa Joseph Work Phone: [facility] 11-05-2023 09:06-0500 Body mass index (BMI) [Ratio] 28.8 kg/m2 Dr. Randa Joseph Work Phone: [facility] 11-05-2023 09:06-0500 Diastolic blood pressure 78 mm[Hg] Dr. Randa Joseph Work Phone: [facility] 11-05-2023 09:06-0500 Heart rate 70 /min Dr. Randa Joseph Work Phone: [facility] 11-05-2023 09:06-0500 Respiratory rate 18 /min Dr. Randa Joseph Work Phone: [facility] 11-05-2023 09:06-0500 Systolic blood pressure 150 mm[Hg] Dr. Randa Joseph Work Phone: [facility] 10-29-2023 09:40-0500 Body temperature 96.1 [degF] Dr. Randa Joseph Work Phone: [facility] 10-22-2023 10:55-0500 Body mass index (BMI) [Ratio] 28.8 kg/m2 Dr. Randa Joseph Work Phone: [facility] 10-22-2023 10:55-0500 Body temperature 96 [degF] Dr. Randa Joseph Work Phone: [facility] 10-22-2023 10:55-0500 Diastolic blood pressure 81 mm[Hg] Dr. Randa Joseph Work Phone: [facility] 10-22-2023 10:55-0500 Heart rate 101 /min Dr. Randa Joseph Work Phone: [facility] 10-22-2023 10:55-0500 Respiratory rate 18 /min Dr. Randa Joseph Work Phone: [facility] 10-22-2023 10:55-0500 Systolic blood pressure 110 mm[Hg] Dr. Randa Joseph Work Phone: [facility] 10-19-2023 00:47-0500 Body weight 99.[address] Randa Joseph Work Phone: [facility] 10-15-2023 14:59-0500 Body height 185.[address] Randa Joseph Work Phone: [facility] 10-15-2023 14:59-0500 Body temperature 96.6 [degF] Dr. Randa Joseph Work Phone: [facility] 10-15-2023 14:59-0500 Diastolic blood pressure 75 mm[Hg] Dr. Randa Joseph Work Phone: [facility] 10-15-2023 14:59-0500 Heart rate 69 /min Dr. Randa Joseph Work Phone: [facility] 10-15-2023 14:59-0500 Respiratory rate 16 /min Dr. Randa Joseph Work Phone: [facility] 10-15-2023 14:59-0500 Systolic blood pressure 140 mm[Hg] Dr. Randa Joseph Work Phone: [facility] 10-15-2023 09:25-0500 Body mass index (BMI) [Ratio] 28.8 kg/m2 Dr. Randa Joseph Work Phone: [facility] 10-15-2023 09:25-0500 Body temperature 96.2 [degF] Dr. Randa Joseph Work Phone: [facility] 10-15-2023 09:25-0500 Diastolic blood pressure 78 mm[Hg] Dr. Randa Joseph Work Phone: [facility] 10-15-2023 09:25-0500 Heart rate 72 /min Dr. Randa Joseph Work Phone: [facility] 10-15-2023 09:25-0500 Respiratory rate 18 /min Dr. Randa Joseph Work Phone: [facility] 10-15-2023 09:25-0500 Systolic blood pressure 149 mm[Hg] Dr. Randa Joseph Work Phone: [facility] 10-08-2023 12:54-0500 Body mass index (BMI) [Ratio] 28.8 kg/m2 Dr. Randa Joseph Work Phone: [facility] 10-08-2023 12:54-0500 Body temperature 96 [degF] Dr. Randa Joseph Work Phone: [facility] 10-08-2023 12:54-0500 Diastolic blood pressure 71 mm[Hg] Dr. Randa Joseph Work Phone: [facility] 10-08-2023 12:54-0500 Heart rate 64 /min Dr. Randa Joseph Work Phone: [facility] 10-08-2023 12:54-0500 Respiratory rate 18 /min Dr. Randa Joseph Work Phone: [facility] 10-08-2023 12:54-0500 Systolic blood pressure 155 mm[Hg] Dr. Randa Joseph Work Phone: [facility] 09-22-2023 06:19-0500 Body height 185.[address] Randa Joseph Work Phone: [facility] 09-22-2023 06:19-0500 Body mass index (BMI) [Ratio] 29 kg/m2 Dr. Randa Joseph Work Phone: [facility] 09-22-2023 06:19-0500 Body temperature 97.4 [degF] Dr. Randa Joseph Work Phone: [facility] 09-22-2023 06:19-0500 Body weight 99.[address] Randa Joseph Work Phone: [facility] 09-22-2023 06:19-0500 Diastolic blood pressure 72 mm[Hg] Dr. Randa Joseph Work Phone: [facility] 09-22-2023 06:19-0500 Heart rate 75 /min Dr. Randa Joseph Work Phone: [facility] 09-22-2023 06:19-0500 Respiratory rate 20 /min Dr. Randa Joseph Work Phone: [facility] 09-22-2023 06:19-0500 SaO2% (BldA) [Mass fraction] 98 % Dr. Randa Joseph Work Phone: [facility] 09-22-2023 06:19-0500 Systolic blood pressure 160 mm[Hg] Dr. Randa Joseph Work Phone: [facility] 09-18-2023 00:50-0500 Body weight 99.[address] Randa Joseph Work Phone: [facility] 09-17-2023 08:21-0500 Body mass index (BMI) [Ratio] 28.8 kg/m2 Dr. Randa Joseph Work Phone: [facility] 09-17-2023 08:21-0500 Body temperature 97.6 [degF] Dr. Randa Joseph Work Phone: [facility] 09-17-2023 08:21-0500 Diastolic blood pressure 78 mm[Hg] Dr. Randa Joseph Work Phone: [facility] 09-17-2023 08:21-0500 Heart rate 77 /min Dr. Randa Joseph Work Phone: [facility] 09-17-2023 08:21-0500 Respiratory rate 18 /min Dr. Randa Joseph Work Phone: [facility] 09-17-2023 08:21-0500 Systolic blood pressure 138 mm[Hg] Dr. Randa Joseph Work Phone: [facility] 08-27-2023 09:13-0500 Body height 185.[address] Randa Joseph Work Phone: [facility] 08-27-2023 09:13-0500 Body weight 99.[address] Randa Joseph Work Phone: [facility] 08-24-2023 15:03-0500 Body height 182.88 cm [facility] 08-24-2023 15:03-0500 Body temperature 96.6 [degF] [facility] 08-24-2023 15:03-0500 Diastolic blood pressure 78 mm[Hg] [facility] 08-24-2023 15:03-0500 Heart rate 75 /min [facility] 08-24-2023 15:03-0500 Respiratory rate 18 /min [facility] 08-24-2023 15:03-0500 SaO2% (BldA) [Mass fraction] 98 % [facility] 08-24-2023 15:03-0500 Systolic blood pressure 134 mm[Hg] [facility] 06-30-2023 12:27-0400 Body mass index (BMI) [Ratio] 29.8 kg/m2 [facility] 06-30-2023 12:27-0400 Body temperature 98 [degF] [facility] 06-30-2023 12:27-0400 Body weight 99.79 kg [facility] 06-30-2023 12:27-0400 Diastolic blood pressure 75 mm[Hg] [facility] 06-30-2023 12:27-0400 Heart rate 71 /min [facility] 06-30-2023 12:27-0400 Respiratory rate 16 /min [facility] 06-30-2023 12:27-0400 SaO2% (BldA) [Mass fraction] 98 % [facility] 06-30-2023 12:27-0400 Systolic blood pressure 131 mm[Hg] [facility] 04-23-2023 10:10-0400 Body height 182.88 cm [facility] 04-23-2023 10:10-0400 Body temperature 96.9 [degF] [facility] 04-23-2023 10:10-0400 Diastolic blood pressure 67 mm[Hg] [facility] 04-23-2023 10:10-0400 Heart rate 66 /min [facility] 04-23-2023 10:10-0400 Respiratory rate 16 /min [facility] 04-23-2023 10:10-0400 SaO2% (BldA) [Mass fraction] 99 % [facility] 04-23-2023 10:10-0400 Systolic blood pressure 142 mm[Hg] [facility] 04-14-2023 10:49-0400 Body height 182.88 cm [facility] 04-14-2023 10:49-0400 Body mass index (BMI) [Ratio] 30.6 kg/m2 [facility] 04-14-2023 10:49-0400 Body temperature 96.1 [degF] [facility] 04-14-2023 10:49-0400 Body weight 102.51 kg [facility] 04-14-2023 10:49-0400 Diastolic blood pressure 67 mm[Hg] [facility] 04-14-2023 10:49-0400 Heart rate 75 /min [facility] 04-14-2023 10:49-0400 Respiratory rate 16 /min [facility] 04-14-2023 10:49-0400 SaO2% (BldA) [Mass fraction] 99 % [facility] 04-14-2023 10:49-0400 Systolic blood pressure 131 mm[Hg] [facility] 02-20-2023 11:21-0400 Body height 182.88 cm [facility] 02-20-2023 11:21-0400 Body mass index (BMI) [Ratio] 30.5 kg/m2 [facility] 02-20-2023 11:21-0400 Body temperature 97.6 [degF] [facility] 02-20-2023 11:21-0400 Body weight 102.05 kg [facility] 02-20-2023 11:21-0400 Diastolic blood pressure 65 mm[Hg] [facility] 02-20-2023 11:21-0400 Heart rate 79 /min [facility] 02-20-2023 11:21-0400 Respiratory rate 16 /min [facility] 02-20-2023 11:21-0400 SaO2% (BldA) [Mass fraction] 95 % [facility] 02-20-2023 11:21-0400 Systolic blood pressure 132 mm[Hg] [facility] 04-29-2023 10:46-0400 Body temperature 97 [degF] Renee Callow METAL STAMPING MACHINE OPERATOR.PROVIDER ENROLLMENT SPECIALIST Work Phone: [facility] 02-14-2023 10:46-0400 Body weight 102.97 kg Renee Callow METAL STAMPING MACHINE OPERATOR.PROVIDER ENROLLMENT SPECIALIST Work Phone: [facility] 02-14-2023 10:46-0400 Diastolic blood pressure 76 mm[Hg] Renee Callow METAL STAMPING MACHINE OPERATOR.PROVIDER ENROLLMENT SPECIALIST Work Phone: [facility] 02-14-2023 10:46-0400 Heart rate 60 /min Renee Callow METAL STAMPING MACHINE OPERATOR.PROVIDER ENROLLMENT SPECIALIST Work Phone: [facility] 02-14-2023 10:46-0400 Respiratory rate 16 /min Renee Callow METAL STAMPING MACHINE OPERATOR.PROVIDER ENROLLMENT SPECIALIST Work Phone: [facility] 02-14-2023 10:46-0400 SaO2% (BldA) [Mass fraction] 98 % Renee Callow METAL STAMPING MACHINE OPERATOR.PROVIDER ENROLLMENT SPECIALIST Work Phone: [facility] 02-14-2023 10:46-0400 Systolic blood pressure 128 mm[Hg] Renee Callow METAL STAMPING MACHINE OPERATOR.PROVIDER ENROLLMENT SPECIALIST Work Phone: [facility] 12-26-2022 14:38-0500 Body height 182.[address] Peter Finney Work Phone: [facility] 12-26-2022 14:38-0500 Body mass index (BMI) [Ratio] 31.4 kg/m2 Dr. Peter Finney Work Phone: [facility] 12-26-2022 14:38-0500 Body temperature 97.3 [degF] Dr. Peter Finney Work Phone: [facility] 12-26-2022 14:38-0500 Body weight 105.[address] Peter Finney Work Phone: [facility] 12-26-2022 14:38-0500 Diastolic blood pressure 60 mm[Hg] Dr. Peter Finney Work Phone: [facility] 12-26-2022 14:38-0500 Heart rate 77 /min Dr. Peter Finney Work Phone: [facility] 12-26-2022 14:38-0500 Respiratory rate 16 /min Dr. Peter Finney Work Phone: [facility] 12-26-2022 14:38-0500 SaO2% (BldA) [Mass fraction] 99 % Dr. Peter Finney Work Phone: [facility] 12-26-2022 14:38-0500 Systolic blood pressure 110 mm[Hg] Dr. Peter Finney Work Phone: [facility] 10-24-2022 09:55-0500 Body height 182.[address] Peter Finney Work Phone: [facility] 10-24-2022 09:55-0500 Body temperature 97.7 [degF] Dr. Peter Finney Work Phone: [facility] 10-24-2022 09:55-0500 Diastolic blood pressure 79 mm[Hg] Dr. Peter Finney Work Phone: [facility] 10-24-2022 09:55-0500 Heart rate 82 /min Dr. Peter Finney Work Phone: [facility] 10-24-2022 09:55-0500 Respiratory rate 16 /min Dr. Peter Finney Work Phone: [facility] 10-24-2022 09:55-0500 SaO2% (BldA) [Mass fraction] 97 % Dr. Peter Finney Work Phone: [facility] 10-24-2022 09:55-0500 Systolic blood pressure 150 mm[Hg] Dr. Peter Finney Work Phone: [facility] 10-20-2022 16:13-0500 Body temperature 99.81 [degF] Jaqui Felton APRN.CNP Work Phone: [facility] 10-20-2022 16:13-0500 Body weight 108.41 kg Jaqui Jose Francisco METAL STAMPING MACHINE OPERATOR.PROVIDER ENROLLMENT SPECIALIST Work Phone: [facility] 10-20-2022 16:13-0500 Diastolic blood pressure 70 mm[Hg] Jaqui Felton METAL STAMPING MACHINE OPERATOR.PROVIDER ENROLLMENT SPECIALIST Work Phone: [facility] 10-20-2022 16:13-0500 Heart rate 86 /min Jaqui Felton METAL STAMPING MACHINE OPERATOR.PROVIDER ENROLLMENT SPECIALIST Work Phone: [facility] 10-20-2022 16:13-0500 Respiratory rate 16 /min Jaqui Felton METAL STAMPING MACHINE OPERATOR.PROVIDER ENROLLMENT SPECIALIST Work Phone: [facility] 10-20-2022 16:13-0500 SaO2% (BldA) [Mass fraction] 96 % Jaqui Felton METAL STAMPING MACHINE OPERATOR.PROVIDER ENROLLMENT SPECIALIST Work Phone: [facility] 10-20-2022 16:13-0500 Systolic blood pressure 122 mm[Hg] Jaqui Felton METAL STAMPING MACHINE OPERATOR.PROVIDER ENROLLMENT SPECIALIST Work Phone: [facility] 10-14-2022 14:24-0500 Diastolic blood pressure 65 mm[Hg] Dr. Peter iFnney Work Phone: [facility] 10-14-2022 14:24-0500 Heart rate 65 /min Dr. Peter Finney Work Phone: [facility] 10-14-2022 14:24-0500 SaO2% (BldA) [Mass fraction] 99 % Dr. Peter Finney Work Phone: [facility] 10-14-2022 14:24-0500 Systolic blood pressure 147 mm[Hg] Dr. Peter Finney Work Phone: [facility] 09-22-2022 07:36-0500 Body height 182.[address] Peter Finney Work Phone: [facility] Work Phone: 09-22-2022 07:36-0500 Body mass index (BMI) [Ratio] 33 kg/m2 Dr. Peter Finney Work Phone: [facility] 09-22-2022 07:36-0500 Body temperature 94.4 [degF] Dr. Peter Finney Work Phone: [facility] 09-22-2022 07:36-0500 Body weight 110.33 kg Dr. Peter Finney Work Phone: [facility] 09-22-2022 07:36-0500 Diastolic blood pressure 79 mm[Hg] Dr. Peter Finney Work Phone: [facility] 09-22-2022 07:36-0500 Heart rate 81 /min Dr. Peter Finney Work Phone: [facility] 09-22-2022 07:36-0500 Respiratory rate 18 /min Dr. Peter Finney Work Phone: [facility] 09-22-2022 07:36-0500 SaO2% (BldA) [Mass fraction] 97 % Dr. Peter Finney Work Phone: [facility] 09-22-2022 07:36-0500 Systolic blood pressure 150 mm[Hg] Dr. Peter Finney Work Phone: [facility] 09-17-2022 09:45-0500 Body height 185.4 cm Teagan Karmen PA-C Work Phone: [facility] 09-17-2022 09:45-0500 Body temperature 97.3 [degF] Teagan Rehrersburg PA-C Work Phone: [facility] 09-17-2022 09:45-0500 Body weight 110.95 kg Teagan Karmen PA-C Work Phone: [facility] 09-17-2022 09:45-0500 Diastolic blood pressure 74 mm[Hg] Teagan Karmen PA-C Work Phone: [facility] 09-17-2022 09:45-0500 Heart rate 72 /min Teagan Rehrersburg PA-C Work Phone: [facility] 09-17-2022 09:45-0500 SaO2% (BldA) [Mass fraction] 98 % Teagan Rehrersburg PA-C Work Phone: [facility] 09-17-2022 09:45-0500 Systolic blood pressure 138 mm[Hg] Teagan Peraza PA-C Work Phone: [facility] 08-19-2022 14:56-0400 Body height 182.88 cm [facility] Work Phone: 08-19-2022 14:56-0400 Body mass index (BMI) [Ratio] 33.7 kg/m2 [facility] 08-19-2022 14:56-0400 Body temperature 97.4 [degF] [facility] 08-19-2022 14:56-0400 Body weight 112.94 kg [facility] 08-19-2022 14:56-0400 Diastolic blood pressure 64 mm[Hg] [facility] 08-19-2022 14:56-0400 Heart rate 69 /min [facility] 08-19-2022 14:56-0400 Respiratory rate 14 /min [facility] 08-19-2022 14:56-0400 SaO2% (BldA) [Mass fraction] 99 % [facility] 08-19-2022 14:56-0400 Systolic blood pressure 159 mm[Hg] [facility] 08-04-2022 14:15-0400 Body height 182.9 cm Maxx Mayer MD Work Phone: [facility] 08-04-2022 14:15-0400 Body temperature 97.9 [degF] Maxx Mayer MD Work Phone: [facility] 08-04-2022 14:15-0400 Body weight 112.95 kg Maxx Mayer MD Work Phone: [facility] 08-04-2022 14:15-0400 Diastolic blood pressure 70 mm[Hg] Maxx Mayer MD Work Phone: [facility] 08-04-2022 14:15-0400 Heart rate 80 /min Maxx Mayer MD Work Phone: [facility] 08-04-2022 14:15-0400 Respiratory rate 16 /min Maxx Mayer MD Work Phone: [facility] 08-04-2022 14:15-0400 SaO2% (BldA) [Mass fraction] 95 % Maxx Mayer MD Work Phone: [facility] 08-04-2022 14:15-0400 Systolic blood pressure 130 mm[Hg] Maxx Mayer MD Work Phone: [facility] 06-24-2022 14:00-0400 Body height 182.[address] Peter Finney Work Phone: [facility] Work Phone: 06-24-2022 14:00-0400 Body mass index (BMI) [Ratio] 33.6 kg/m2 Dr. Peter Finney Work Phone: [facility] Work Phone: 06-24-2022 14:00-0400 Body temperature 97.8 [degF] Dr. Peter Finney Work Phone: [facility] Work Phone: 06-24-2022 14:00-0400 Body weight 112.[address] Peter Finney Work Phone: [facility] Work Phone: 06-24-2022 14:00-0400 Diastolic blood pressure 65 mm[Hg] Dr. Peter Finney Work Phone: [facility] Work Phone: 06-24-2022 14:00-0400 Heart rate 77 /min Dr. Peter Finney Work Phone: [facility] Work Phone: 06-24-2022 14:00-0400 Respiratory rate 16 /min Dr. Peter Finney Work Phone: [facility] Work Phone: 06-24-2022 14:00-0400 SaO2% (BldA) [Mass fraction] 97 % Dr. Peter Finney Work Phone: [facility] Work Phone: 06-24-2022 14:00-0400 Systolic blood pressure 141 mm[Hg] Dr. Peter Finney Work Phone: [facility] Work Phone: 04-29-2022 14:57-0400 Body height 182.[address] Peter Finney Work Phone: [facility] Work Phone: 04-29-2022 14:57-0400 Body mass index (BMI) [Ratio] 34.3 kg/m2 Dr. Peter Finney Work Phone: [facility] Work Phone: 04-29-2022 14:57-0400 Body temperature 97.4 [degF] Dr. Peter Finney Work Phone: [facility] Work Phone: 04-29-2022 14:57-0400 Body weight 114.[address] Peter Finney Work Phone: [facility] Work Phone: 04-29-2022 14:57-0400 Diastolic blood pressure 82 mm[Hg] Dr. Peter Finney Work Phone: [facility] Work Phone: 04-29-2022 14:57-0400 Heart rate 81 /min Dr. Peter Finney Work Phone: [facility] Work Phone: 04-29-2022 14:57-0400 Respiratory rate 16 /min Dr. Peter Finney Work Phone: [facility] Work Phone: 04-29-2022 14:57-0400 SaO2% (BldA) [Mass fraction] 95 % Dr. Peter Finney Work Phone: [facility] Work Phone: 04-29-2022 14:57-0400 Systolic blood pressure 124 mm[Hg] Dr. Peter Finney Work Phone: [facility] Work Phone: 03-25-2022 07:44-0400 Body mass index (BMI) [Ratio] 34.3 kg/m2 Dr. Peter Finney Work Phone: [facility] Work Phone: 03-25-2022 07:44-0400 Body temperature 97.4 [degF] Dr. Peter Finney Work Phone: [facility] Work Phone: 03-25-2022 07:44-0400 Body weight 114.[address] Peter Finney Work Phone: [facility] Work Phone: 03-25-2022 07:44-0400 Diastolic blood pressure 63 mm[Hg] Dr. Peter Finney Work Phone: [facility] Work Phone: 03-25-2022 07:44-0400 Heart rate 75 /min Dr. Peter Finney Work Phone: [facility] Work Phone: 03-25-2022 07:44-0400 Respiratory rate 16 /min Dr. Peter Finney Work Phone: [facility] Work Phone: 03-25-2022 07:44-0400 SaO2% (BldA) [Mass fraction] 97 % Dr. Peter Finney Work Phone: [facility] Work Phone: 03-25-2022 07:44-0400 Systolic blood pressure 119 mm[Hg] Dr. Peter Finney Work Phone: [facility] Work Phone: 03-25-2022 07:44-0400 Body height 182.[address] Peter Finney Work Phone: [facility] Work Phone: 03-25-2022 07:44-0400 Body mass index (BMI) [Ratio] 34.3 kg/m2 Dr. Peter Finney Work Phone: [facility] Work Phone: 03-25-2022 07:44-0400 Body temperature 97.4 [degF] Dr. Peter Finney Work Phone: [facility] Work Phone: 03-25-2022 07:44-0400 Body weight 114.[address] Peter Finney Work Phone: [facility] Work Phone: 03-25-2022 07:44-0400 Diastolic blood pressure 63 mm[Hg] Dr. Peter Finney Work Phone: [facility] Work Phone: 03-25-2022 07:44-0400 Heart rate 75 /min Dr. Peter Finney Work Phone: [facility] Work Phone: 03-25-2022 07:44-0400 Respiratory rate 16 /min Dr. Peter Finney Work Phone: [facility] Work Phone: 03-25-2022 07:44-0400 SaO2% (BldA) [Mass fraction] 97 % Dr. Peter Finney Work Phone: [facility] Work Phone: 03-25-2022 07:44-0400 Systolic blood pressure 119 mm[Hg] Dr. Peter Finney Work Phone: [facility] Work Phone: 03-21-2022 08:33-0400 Body mass index (BMI) [Ratio] 33.3 kg/m2 Dr. Peter Finney Work Phone: [facility] Work Phone: 03-21-2022 08:33-0400 Body temperature 97.5 [degF] Dr. Peter Finney Work Phone: [facility] Work Phone: 03-21-2022 08:33-0400 Body weight 114.[address] Peter Finney Work Phone: [facility] Work Phone: 03-21-2022 08:33-0400 Diastolic blood pressure 71 mm[Hg] Dr. Peter Finney Work Phone: [facility] Work Phone: 03-21-2022 08:33-0400 Heart rate 73 /min Dr. Peter Finney Work Phone: [facility] Work Phone: 03-21-2022 08:33-0400 Respiratory rate 18 /min Dr. Peter Finney Work Phone: [facility] Work Phone: 03-21-2022 08:33-0400 SaO2% (BldA) [Mass fraction] 98 % Dr. Peter Finney Work Phone: [facility] Work Phone: 03-21-2022 08:33-0400 Systolic blood pressure 136 mm[Hg] Dr. Peter Finney Work Phone: [facility] Work Phone: 03-04-2022 14:38-0400 Body height 182.88 cm [facility] Work Phone: 03-04-2022 14:38-0400 Body mass index (BMI) [Ratio] 34.8 kg/m2 [facility] Work Phone: 03-04-2022 14:38-0400 Body temperature 97.5 [degF] [facility] Work Phone: 03-04-2022 14:38-0400 Body weight 116.57 kg [facility] Work Phone: 03-04-2022 14:38-0400 Diastolic blood pressure 68 mm[Hg] [facility] Work Phone: 03-04-2022 14:38-0400 Heart rate 71 /min [facility] Work Phone: 03-04-2022 14:38-0400 Respiratory rate 16 /min [facility] Work Phone: 03-04-2022 14:38-0400 SaO2% (BldA) [Mass fraction] 98 % [facility] Work Phone: 03-04-2022 14:38-0400 Systolic blood pressure 140 mm[Hg] [facility] Work Phone: 02-19-2022 08:18-0400 Body height 185.42 cm [facility] Work Phone: 01-07-2022 14:27-0400 Body height 185.[address] Peter Finney Work Phone: [facility] Work Phone: 01-07-2022 14:27-0400 Body mass index (BMI) [Ratio] 33.6 kg/m2 Dr. Peter Finney Work Phone: [facility] Work Phone: 01-07-2022 14:27-0400 Body temperature 97 [degF] Dr. Peter Finney Work Phone: [facility] Work Phone: 01-07-2022 14:27-0400 Body weight 115.[address] Peter Finney Work Phone: [facility] Work Phone: 01-07-2022 14:27-0400 Diastolic blood pressure 70 mm[Hg] Dr. Peter Finney Work Phone: [facility] Work Phone: 01-07-2022 14:27-0400 Heart rate 71 /min Dr. Peter Finney Work Phone: [facility] Work Phone: 01-07-2022 14:27-0400 Respiratory rate 12 /min Dr. Peter Finney Work Phone: [facility] Work Phone: 01-07-2022 14:27-0400 SaO2% (BldA) [Mass fraction] 98 % Dr. Peter Finney Work Phone: [facility] Work Phone: 01-07-2022 14:27-0400 Systolic blood pressure 149 mm[Hg] Dr. Peter Finney Work Phone: [facility] Work Phone: 11-12-2021 13:49-0500 Body temperature 97.2 [degF] Dr. Peter Finney Work Phone: [facility] Work Phone: 11-12-2021 13:49-0500 Diastolic blood pressure 83 mm[Hg] Dr. Peter Finney Work Phone: [facility] Work Phone: 11-12-2021 13:49-0500 Heart rate 74 /min Dr. Peter Finney Work Phone: [facility] Work Phone: 11-12-2021 13:49-0500 Respiratory rate 18 /min Dr. Peter Finney Work Phone: [facility] Work Phone: 11-12-2021 13:49-0500 SaO2% (BldA) [Mass fraction] 97 % Dr. Peter Finney Work Phone: [facility] Work Phone: 11-12-2021 13:49-0500 Systolic blood pressure 165 mm[Hg] Dr. Peter Finney Work Phone: [facility] Work Phone: 10-01-2021 11:05-0500 Body temperature 97.7 [degF] Dr. Peter Finney Work Phone: [facility] Work Phone: 10-01-2021 11:05-0500 Diastolic blood pressure 78 mm[Hg] Dr. Peter Finney Work Phone: [facility] Work Phone: 10-01-2021 11:05-0500 Heart rate 81 /min Dr. Peter Finney Work Phone: [facility] Work Phone: 10-01-2021 11:05-0500 Respiratory rate 16 /min Dr. Peter Finney Work Phone: [facility] Work Phone: 10-01-2021 11:05-0500 SaO2% (BldA) [Mass fraction] 98 % Dr. Peter Finney Work Phone: [facility] Work Phone: 10-01-2021 11:05-0500 Systolic blood pressure 120 mm[Hg] Dr. Peter Finney Work Phone: [facility] Work Phone: 09-25-2021 06:02-0500 Body mass index (BMI) [Ratio] 35.3 kg/m2 Dr. Peter Finney Work Phone: [facility] Work Phone: 09-25-2021 06:02-0500 Body temperature 97.3 [degF] Dr. Peter Finney Work Phone: [facility] Work Phone: 09-25-2021 06:02-0500 Body weight 121.[address] Peter Finney Work Phone: [facility] Work Phone: 09-25-2021 06:02-0500 Diastolic blood pressure 72 mm[Hg] Dr. Peter Finney Work Phone: [facility] Work Phone: 09-25-2021 06:02-0500 Heart rate 79 /min Dr. Peter Finney Work Phone: [facility] Work Phone: 09-25-2021 06:02-0500 Respiratory rate 18 /min Dr. Peter Finney Work Phone: [facility] Work Phone: 09-25-2021 06:02-0500 SaO2% (BldA) [Mass fraction] 97 % Dr. Peter Finney Work Phone: [facility] Work Phone: 09-25-2021 06:02-0500 Systolic blood pressure 137 mm[Hg] Dr. Peter Finney Work Phone: [facility] Work Phone: 09-20-2021 07:57-0500 Body mass index (BMI) [Ratio] 35.2 kg/m2 Dr. Peter Finney Work Phone: [facility] Work Phone: 09-20-2021 07:57-0500 Body temperature 96.4 [degF] Dr. Peter Finney Work Phone: [facility] Work Phone: 09-20-2021 07:57-0500 Body weight 121.[address] Peter Finney Work Phone: [facility] Work Phone: 09-20-2021 07:57-0500 Diastolic blood pressure 72 mm[Hg] Dr. Peter Finney Work Phone: [facility] Work Phone: 09-20-2021 07:57-0500 Heart rate 71 /min Dr. Peter Finney Work Phone: [facility] Work Phone: 09-20-2021 07:57-0500 Respiratory rate 16 /min Dr. Peter Finney Work Phone: [facility] Work Phone: 09-20-2021 07:57-0500 SaO2% (BldA) [Mass fraction] 99 % Dr. Peter Finney Work Phone: [facility] Work Phone: 09-20-2021 07:57-0500 Systolic blood pressure 150 mm[Hg] Dr. Peter Finney Work Phone: [facility] Work Phone: 09-17-2021 13:20-0500 Body mass index (BMI) [Ratio] 34.2 kg/m2 Dr. Peter Finney Work Phone: [facility] Work Phone: 09-17-2021 13:20-0500 Body temperature 96.9 [degF] Dr. Peter Finney Work Phone: [facility] Work Phone: 09-17-2021 13:20-0500 Body weight 117.[address] Peter Finney Work Phone: [facility] Work Phone: 09-17-2021 13:20-0500 Diastolic blood pressure 71 mm[Hg] Dr. Peter Finney Work Phone: [facility] Work Phone: 09-17-2021 13:20-0500 Heart rate 86 /min Dr. Peter Finney Work Phone: [facility] Work Phone: 09-17-2021 13:20-0500 Respiratory rate 16 /min Dr. Peter Finney Work Phone: [facility] Work Phone: 09-17-2021 13:20-0500 SaO2% (BldA) [Mass fraction] 99 % Dr. Peter Finney Work Phone: [facility] Work Phone: 09-17-2021 13:20-0500 Systolic blood pressure 123 mm[Hg] Dr. Peter Finney Work Phone: [facility] Work Phone: 08-07-2017 13:26-0400 BMI (Body Mass Index) 32.74 kg/m2 Leelee Jonesteban [facility] No w Clinic Work Phone: 08-07-2017 13:26-0400 Body Temperature 97.7 [degF] Leelee Jonesteban [facility] Now Cli christine Work Phone: 08-07-2017 13:26-0400 BP Diastolic 78 mm[Hg] Leelee Jonesteban [facility] Now Clin ic Work Phone: 08-07-2017 13:26-0400 BP Systolic 122 mm[Hg] Leelee Jonesteban [facility] Now Clin ic Work Phone: 08-07-2017 13:26-0400 Height 187.96 cm Leelee De Leon LPN [facility] Now Clin ic Work Phone: 08-07-2017 13:26-0400 Pulse (Heart Rate) 87 /min Leelee Jonesteban [facility] Now C linic Work Phone: 08-07-2017 13:26-0400 Respiratory Rate 16 /min Leelee Jonesteban [facility] Now Cli christine Work Phone: 08-07-2017 13:26-0400 Weight 115.67 kg Leelee De Leon LPN [facility] Now Clin ic Work Phone: Encounters Encounter Date Encounter Type Care Provider Facility Start: 04-14-2025 [facility] [address] Facility: [facility] Start: 04-13-2025 [facility] [address] Facility: [facility] Start: 04-06-2025 [facility] [address] Facility: [facility] Start: 03-28-2025 End: 03-28-2025 Patient encounter procedure MULE SPINNER Ivelisse Ajfener -[facility] Work Phone: Start: 03-28-2025 End: 03-28-[address] Randa Joseph DO Work Phone: [facility] Work Phone: Start: 03-27-2025 Registered Recurring Merrill machado DPM -[facility] Work Phone: Start: 03-16-2025 End: 03-18-[address] Randa Joseph DO Work Phone: [facility] Work Phone: Start: 03-16-2025 End: 03-18-2025 Discharged Recurring Merrill Burns DPM -W[facility] Work Phone: Start: 03-16-2025 Registered Recurring Merrill REVELESM -[facility] Work Phone: Start: 03-14-2025 Non-patient / Non-visit Dr. Murray archibald MD -[facility] Start: 03-14-2025 End: 03-14-[address] Randa Joseph DO Work Phone: [facility] Work Phone: Start: 03-14-2025 End: 03-14-2025 Patient encounter procedure Salima MCCALLUM -Cardiovascular Services Work Phone: Start: 03-14-2025 End: 03-14-2025 ambulatory Randa Joseph Facility:[facility] Start: 03-02-2025 Non-patient / Non-visit Dr. Jose L Nagel MD -[facility] Start: 03-01-2025 End: 03-01-2025 Patient encounter procedure Salima MCCALLUM -[facility] Work Phone: Start: 03-01-2025 End: 03-01-[address] Randa Joseph DO Work Phone: [facility] Work Phone: Start: 02-27-2025 Registered Recurring Merrill Marshal l DPM -[facility] Work Phone: Start: 02-13-2025 End: 02-13-[address] Randa Joseph DO -Laboratory, Specimen Work Phone: Start: 02-13-2025 End: 02-13-2025 ambulatory [facility] Facility:[facility] Start: 01-24-2025 End: 01-24-2025 Patient encounter procedure Neris ALMARAZC -Medical Out Work Phone: Start: 01-24-2025 End: 01-24-[address] Randa Joseph DO Work Phone: [facility] Work Phone: Start: 12-28-2024 End: 12-28-[address] Randa Joseph DO Work Phone: [facility] Work Phone: Start: 12-28-2024 End: 12-28-[address] Randa Joseph DO -Physical Therapy Work Phone: Start: 12-07-2024 End: 12-07-2024 Patient encounter procedure TODD Gould -[facility] Work Phone: Start: 12-07-2024 End: 12-07-2024 ambulatory [facility] Start: 12-07-2024 End: 12-07-2024 ambulatory [facility] Facility:[facility] Start: 11-30-2024 End: 11-30-2024 Patient encounter procedure Neris ALMARAZC -Medical Out Work Phone: Start: 11-30-2024 End: 11-30-2024 ambulatory [facility] Facility:[facility] Start: 11-28-2024 Encounter for genera l adult medical examination without abnormal findings López [facility] Start: 11-15-2024 ambulatory [facility]: [facility] Start: 11-15-2024 Non-patient / Non-visit Dr. Abel kong DO -[facility] Start: 11-08-2024 End: 11-08-[address] López Joseph MD -Sleep Lab Work Phone: Start: 11-08-2024 End: 11-08-2024 [facility] [address] Facility:[facility] Start: 11-07-2024 End: 11-07-2024 Patient encounter procedure MULE SPINNER Ivelisse Gould -Pulmonary Services/Neurology Work Phone: Start: 11-07-2024 End: 11-07-2024 [facility] [address] Facility:[facility] Start: 11-05-2024 End: 11-05-2024 Emergency department patient visit Dr. Mario Koo MD -Emergency Department Work Phone: Start: 11-02-2024 End: 11-02-2024 Patient encounter procedure MULE SPINNER Ivelisse Gould -Pulmonary Services/Neurology Work Phone: Start: 11-02-2024 End: 11-02-2024 [facility] [address] Facility:[facility] Start: 10-13-2024 End: 10-13-2024 Patient encounter procedure YAEL RODRIGUEZ PA -Medical Out Work Phone: Start: 10-13-2024 End: 10-13-2024 [facility] [address] Facility:[facility] Start: 10-04-2024 End: 10-04-2024 ambulatory Neris Tovar [facility] Facility:[facility] Start: 10-04-2024 End: 10-04-2024 Patient encounter procedure Neris Tovar MULE SPINNER-C -Medical Out Work Phone: Start: 10-04-2024 End: 10-04-[address] Luiza Moon MD -Laboratory, [facility] Start: 10-04-2024 End: 10-04-2024 Patient encounter procedure TODD Gould -[facility] Work Phone: Start: 10-04-2024 End: 10-04-2024 ambulatory [facility] Facility:[facility] Start: 10-04-2024 End: 10-04-2024 ambulatory [facility] Facility:[facility] Start: 09-22-2024 End: 09-22-[address] Randa Joseph DO -Radiology, [place] Work Phone: Start: 09-22-2024 End: 09-22-2024 ambulatory [facility] Facility:[facility] Start: 09-12-2024 End: 09-12-2024 Emergency department patient visit Dr. Yung Ruvalcaba MD -Emergency Department Work Phone: Start: 08-09-2024 End: 08-09-2024 ambulatory Neris Tovar [employer] Facility:[facility] Start: 08-08-2024 End: 08-08-2024 Subsequent hospital visit by physician Xr [facility] Work Phone: Radiology Comment on above: Injury of right shou lder, initial encounter [S49.91XA] Start: 08-08-2024 End: 08-08-2024 ambulatory [facility] Facility:[facility] Start: 08-08-2024 End: 08-08-2024 Patient encounter procedure Jaqui Felton APRN.PROVIDER ENROLLMENT SPECIALIST Work Phone: [facility] Comment on above: Injury of right shou lder, initial encounter (Primary Dx) Start: 07-04-2024 End: 07-04-2024 [facility] [address] Facility:[facility] Start: 06-14-2024 End: 06-14-2024 ambulatory [facility] Facility:[facility] Start: 06-06-2024 End: 06-06-2024 ambulatory Lucero Cabot Facility:[facility] Start: 06-04-2024 ambulatory [facility] Facility: [facility] Start: 04-15-2024 End: 04-15-2024 ambulatory [facility] Facility:[facility] Start: 03-08-2024 End: 03-08-2024 ambulatory [facility] Facility:[facility] Start: 03-08-2024 End: 03-08-2024 Patient encounter procedure Yael Nair METAL STAMPING MACHINE OPERATOR.PROVIDER ENROLLMENT SPECIALIST Work Phone: [facility] Comment on above: Nail fungus (Primary Dx); Injury of great toenail Start: 02-04-2024 End: 02-16-[address] Randa Joseph Work Phone: [facility] Work Phone: Start: 02-04-2024 End: 02-16-[address] [facility] Work Phone: Start: 01-26-2024 End: 01-26-[address] Randa Joseph Work Phone: [facility] Work Phone: Start: 01-14-2024 End: 01-17-[address] Randa Joseph Work Phone: [facility] Work Phone: Start: 01-14-2024 End: 01-17-2024 Discharged Recurring Dr. Randa Joseph [facility] Phone: [facility] Work Phone: Start: 01-06-2024 Non-patient / Non-visit Dr. Suzan Joseph Work Phone: [facility] Start: 01-06-2024 End: 01-06-2024 Admission to same day surgery center Dr. Randa Joseph Work Phone: [facility]-Packer Inspector/Special Procedures Work Phone: Start: 01-06-2024 End: 01-06-[address] Randa Joseph Work Phone: [facility] Work Phone: Start: 12-31-2023 End: 12-31-[address] Randa Joseph Work Phone: [facility] Work Phone: Start: 12-31-2023 End: 12-31-[address] Randa Joseph Work Phone: [facility] [place] Work Phone: Start: 12-18-2023 End: 12-18-[address] Randa Joseph Work Phone: [facility] Work Phone: Start: 12-18-2023 End: 12-18-[address] Randa Joseph Work Phone: [facility]-Medical [facility] Work Phone: Start: 12-17-2023 End: 12-17-[address] Randa Joseph Work Phone: [facility] Work Phone: Start: 12-17-2023 End: 12-17-[address] Randa Joseph [facility] Phone: [facility] Work Phone: Start: 12-17-[address] Randa Joseph Work Phone: [facility] Work Phone: Start: 11-25-2023 End: 11-25-[address] Randa Joseph Work Phone: [facility] Work Phone: Start: 11-19-2023 End: 12-17-[address] Randa Joseph Work Phone: [facility] Work Phone: Start: 11-19-2023 End: 12-17-[address] Randa Joseph Work Phone: [facility]-Home Health Lab Start: 11-17-2023 End: 11-18-[address] Randa Joseph Work Phone: [facility] Work Phone: Start: 11-17-2023 End: 11-18-[address] Randa Joseph Work Phone: [facility] Work Phone: Start: 11-17-[address] Randa Joseph Work Phone: [facility] Work Phone: Start: 11-13-2023 End: 11-13-[address] Randa Joseph Work Phone: [facility] Work Phone: Start: 11-13-2023 End: 11-13-[address] Randa Joseph Work Phone: [facility]-Home Health Lab Start: 11-06-2023 End: 11-06-[address] Randa Joseph Work Phone: [facility] Work Phone: Start: 11-06-2023 End: 11-06-[address] Randa Joseph Work Phone: [facility]-Medical Out Work Phone: Start: 11-06-2023 Non-patient / Non-visit Dr. Suzan Joseph Work Phone: [facility] Start: 11-06-2023 End: 11-06-[address] Randa Joseph Work Phone: [facility] Work Phone: Start: 11-06-2023 End: 11-06-[address] Randa Joseph Work Phone: [facility]-Radiology, [facility] Work Phone: Start: 11-05-[address] Randa Joseph Work Phone: [facility] Work Phone: Start: 01-04-[address] Randa Joseph Work Phone: [facility] Work Phone: Start: 10-20-2023 End: 10-20-[address] Randa Joseph Work Phone: [facility] Work Phone: Start: 10-20-2023 End: 10-20-[address] Randa Joseph Work Phone: [facility] Start: 10-15-2023 End: 10-15-[address] Randa Joseph Work Phone: [facility] Work Phone: Start: 10-15-2023 End: 10-15-[address] Randa Joseph Work Phone: [facility]-Medical Out Work Phone: Start: 10-15-2023 End: 10-18-[address] Randa Joseph Work Phone: [facility] Work Phone: Start: 10-15-2023 End: 10-18-[address] Randa Joseph Work Phone: [facility] Work Phone: Start: 10-15-[address] Randa Joseph Work Phone: [facility] Work Phone: Start: 10-08-[address] Randa Joseph Work Phone: [facility] Work Phone: Start: 10-05-2023 End: 10-05-[address] Randa Joseph Work Phone: [facility] Work Phone: Start: 10-05-2023 End: 10-05-[address] Randa Joseph Work Phone: [facility]-LaboratoryHarry Start: 09-22-2023 End: 09-22-[address] Randa Joseph Work Phone: [facility]-Pulmonary Medicine [facility] Work Phone: Start: 09-17-2023 End: 09-17-[address] Randa Joseph Work Phone: [facility] Work Phone: Start: 09-17-2023 End: 09-17-[address] Randa Joseph Work Phone: [facility]-Wound Healing Center Work Phone: Start: 09-02-2023 Non-patient / Non-visit Dr. Suzan Joseph Work Phone: [facility] Start: 08-24-2023 End: 08-24-2023 ambulatory [facility] Work Phone: Start: 08-24-2023 End: 08-24-2023 Patient encounter procedure [facility]-Medical Out Work Phone: Start: 07-15-2023 End: 07-15-2023 Patient encounter procedure [facility]-Cat Scan, [facility] Work Phone: Start: 06-30-2023 End: 06-30-2023 Patient encounter procedure [facility]-Medical Out Work Phone: Start: 06-03-2023 End: 06-03-2023 ambulatory [facility] Work Phone: Start: 06-03-2023 End: 06-03-2023 Patient encounter procedure [facility]-Haley Buck [facility] Start: 04-23-2023 End: 04-23-2023 ambulatory [facility] Work Phone: Start: 04-23-2023 End: 04-23-2023 Patient encounter procedure [facility]-Medical Out Work Phone: Start: 04-14-2023 End: 04-14-2023 ambulatory [facility] Work Phone: Start: 04-14-2023 End: 04-14-2023 Patient encounter procedure [facility]-Medical Out Start: 04-10-2023 End: 04-10-2023 Patient encounter procedure [facility]-MRI - [facility] Start: 03-26-2023 End: 03-26-2023 ambulatory [facility] Work Phone: Start: 03-26-2023 End: 03-26-2023 Patient encounter procedure [facility]-Laboratory, [facility] Start: 03-05-2023 End: 03-05-2023 ambulatory [facility] Work Phone: Start: 03-05-2023 End: 03-05-2023 Discharged Recurring [facility]-Physical Therapy Work Phone: Start: 03-05-2023 Registered Recurring [facility]-Physical Therapy Start: 02-20-2023 End: 02-20-2023 ambulatory [facility] Work Phone: Start: 02-20-2023 End: 02-20-2023 Patient encounter procedure [facility]-Medical Out Start: 02-19-2023 Registered Recurring [facility]-Physical Therapy Start: 02-14-2023 End: 02-14-2023 Patient encounter procedure Renee Amaya PALENCIAPROVIDER ENROLLMENT SPECIALIST Work Phone: [facility] Comment on above: Lower respiratory in fection (Primary Dx) Start: 12-31-[address] Peter Finney Work Phone: [facility]-Physical Therapy Start: 12-26-2022 End: 12-26-[address] Peter Finney Work Phone: [facility] Work Phone: Start: 12-26-2022 End: 12-26-[address] Peter Finney Work Phone: [facility]-Medical Out Start: 12-10-[address] Peter Finney Work Phone: [facility]-Physical Therapy Start: 12-03-2022 End: 12-03-[address] Peter Finney Work Phone: [facility] Work Phone: Start: 12-03-2022 End: 12-03-[address] Peter Finney Work Phone: [facility]-Laboratory, [facility] Start: 10-24-2022 End: 10-24-[address] Peter Finney Work Phone: [facility] Work Phone: Start: 10-24-2022 End: 10-24-[address] Peter Finney Work Phone: [facility]-Medical Out Start: 10-20-2022 End: 10-20-2022 Patient encounter procedure Jaqui Felton APRN.CNP Work Phone: [facility] Comment on above: Lower resp. tract in fection (Primary Dx); History of asthma Start: 10-14-2022 End: 10-14-[address] Peter Finney Work Phone: [facility] Work Phone: Start: 10-14-2022 End: 10-14-[address] Peter Finney Work Phone: [facility]-Medical Out Start: 09-22-2022 End: 09-22-[address] Peter Finney Work Phone: [facility] Work Phone: Start: 09-22-2022 End: 09-22-[address] Peter Finney Work Phone: [facility]-Pulmonary Medicine [facility] Start: 09-17-2022 End: 09-17-2022 Patient encounter procedure Teagan Peraza PA-C Work Phone: General Surgery Comment on above: S/P hernia repair (P rimary Dx) Start: 09-10-2022 End: 09-10-2022 ambulatory PETER FINNEY Facility:[facility] Start: 08-19-2022 End: 08-19-2022 ambulatory [facility] Work Phone: Start: 08-19-2022 End: 08-19-2022 Patient encounter procedure [facility]-Medical Out Start: 08-04-2022 End: 08-04-2022 Patient encounter procedure Maxx Mayer MD Work Phone: General Surgery Comment on above: Left inguinal hernia (Primary Dx) Start: 07-23-2022 End: 07-23-2022 ambulatory [facility] Work Phone: Start: 07-23-2022 End: 07-23-2022 Discharged Recurring [facility]-Physical Therapy Start: 07-16-2022 End: 07-16-[address] Peter Finney Work Phone: [facility] Work Phone: Start: 07-16-2022 End: 07-16-[address] Peter Finney Work Phone: [facility] Start: 07-14-[address] Peter Finney Work Phone: [facility]-Physical Therapy Start: 06-25-[address] Peter Finney Work Phone: [facility]-Physical Therapy Start: 06-24-2022 End: 06-24-[address] Peter Finney Work Phone: [facility] Work Phone: Start: 06-24-2022 End: 06-24-[address] Peter Finney Work Phone: [facility]-Medical Out Start: 05-01-2022 End: 05-01-[address] Peter Finney Work Phone: [facility]-Laboratory, [facility] Start: 04-29-2022 End: 04-29-[address] Peter Finney [facility] Start: 03-27-2022 End: 03-27-[address] Peter Finney Work Phone: [facility]-Sleep Lab Start: 03-25-2022 End: 03-25-[address] Peter Finney Work Phone[facility] Start: 03-21-2022 End: 03-21-[address] Peter Finney Work Phone[facility] Start: 03-04-2022 End: 03-04-2022 [facility] Start: 02-19-2022 End: 02-19-2022 Patient encounter procedure [facility]-Outpatient Bone Densitometry Start: 01-07-2022 End: 01-07-[address] Peter Finney Work Phone: [facility] Start: 11-12-2021 End: 11-12-[address] Peter Finney Work Phone[facility] Start: 10-01-2021 End: 10-01-[address] Peter Finney Work Phone: [facility] Start: 09-25-2021 End: 09-25-[address] Peter Finney Work Phone[facility] Start: 09-20-[address] Peter Finney Work Phone[facility] Start: 09-17-[address] Peter Finney Work Phone[facility] Start: 01-26-2019 Patient encounter procedure CARMEN ECHEVARRIA Facility:[facility] Start: 01-12-2019 End: 01-12-2019 Patient encounter procedure CARMEN ECHEVARRIA Facility:[facility] Start: 09-29-2018 End: 09-30-2018 Patient encounter procedure CARMEN ECHEVARRIA Facility:[facility] Start: 07-07-2018 End: 07-08-2018 Patient encounter procedure IMCA Facility:[facility] Start: 05-10-2018 End: 05-13-2018 Evaluation and management of inpatient JAREK Mendoza [facility] Start: 05-04-2018 End: 05-05-2018 Patient encounter SHILOH Reji [facility] Procedures Date Procedure Procedure Detail Performing Clinician Start: 02-13-[address] Randa thacker DO Work Phone: Start: 02-13-[address] Randa Joseph DO Work Phone: Start: 02-13-2025 Microbial culture, routine Dr. Randa palmer DO Work Phone: Start: 02-13-2025 Wound microscopy, culture and sensitivities Dr. Randa Joseph DO Work Phone: Start: 12-07-2024 Measurement of renal function Dr. Randa Joseph DO Work Phone: Comment on above: GFR Calc Start: 12-07-2024 Vitamin D, 25-hydroxy measurement Dr. Randa Joseph DO Work Phone: Comment on above: Vitamin D 25(OH) Status Range Deficiency <20 ng/mL (50nmol/L) Insufficiency 20 - 30 ng/mL (50 - 75 nmol/L) Sufficiency 30 - 100 ng/mL (75 - 250 nmol/L) Toxicity >100 ng/mL (>250 nmol/L) Start: 11-05-2024 CT angiography of chest with contrast Dr. Randa Joseph DO Work Phone: Start: 11-05-2024 X-ray of chest, PA and lateral views Dr. Randa Joseph DO Work Phone: Start: 11-05-2024 D-dimer assay, quantitative Dr. Randa thacker DO Work Phone: Comment on above: D-Dimer ELEVATED (>0.49): Additional annette dies and clinicalassessments are indicated to conclude diagnosis of:Deep Vein Thrombosis (DVT) or Pulmonary Embolism (PE) Start: 11-05-[address] Randa Joseph DO Work Phone: Start: 11-05-2024 Measurement of renal function Dr. Randa Joseph DO Work Phone: Comment on above: GFR Calc Start: 09-22-2024 Plain X-ray of shoulder Dr. Randa monet DO Work Phone: Start: 08-08-2024 Radex shoulder complete minimum 2 views Jaqui Felton APRN.PROVIDER ENROLLMENT SPECIALIST Work Phone: Start: 10-22-[address] Randa thacker Work Phone: Start: 10-22-2023 Investigation of transfusion reaction Dr. Randa Joseph Work Phone: Start: 10-22-2023 Microbial culture, routine Dr. Randa palmer Work Phone: Start: 10-20-[address] Randa Joseph Work Phone: Start: 07-15-2023 CT of abdomen and pelvis without contrast Start: 04-10-2023 MRI of lumbar spine Start: 10-20-2022 COVID WITH FLUA+B, ROUTINE Jaqui Felton APRN.PROVIDER ENROLLMENT SPECIALIST Work Phone: Start: 07-16-2022 Computed tomography of abdomen and pelvis with contrast Dr. Peter Finney Work Phone: Start: 02-19-2022 Dual energy X-ray absorptiometry Start: 05-10-2018 Extraction of Iliac Bone Marrow, Percutaneous Approach JAREK ECHEVARRIA Start: 05-10-2018 Fusion of 2 or more Cervical Vertebral Joints with Autologous Tissue Substitute, Posterior Approach, Posterior Column, Open Approach JAREK ECHEVARRIA Start: 05-10-2018 Monitoring of Peripheral Nervous Electrical Activity, Intraoperative, External Approach [facility] Colonoscopy colonoscopy Dr. Peter monet Work Phone: History of cholecystectomy Histo ry of cholecystectomy Dr. Randa Joseph DO Work Phone: History of cholecystectomy Histo ry of cholecystectomy Salima MCCALLUM Plan of Treatment Date Care Activity Detail Author Start: 04-26-2030 Urine microalbumin profile DTaP,Tdap,Td Vaccine (4 - Td or Tdap) [facility] Start: 08-18-2025 DIABETES SCREEN DIABETES SCREEN [facility] Start: 08-18-2025 Diabetes Screening Diabetes Screenin g [facility] Start: 11-05-2024 [facility] Start: 11-05-2024 [facility] Start: 09-12-2024 [facility] Start: 06-19-2024 Covid-19 Vaccine () Covid-19 Vaccine () [facility] Start: 05-31-2024 Urine microalbumin profile DTAP,TDAP,TD (2 - Td or Tdap) [facility] Start: 01-06-2024 Patient discharge [facility] Start: 11-06-2023 Iv infusion therapy/prophylaxis /dx 1st to 1 hr THER/PROPH/DIAG IV INF INIT [facility] Start: 10-22-2023 Anaerobic Culture Anaerobic Culture [facility] Start: 10-22-2023 Microbial culture, routine Wound Culture [facility] Start: 10-21-2023 [facility] Start: 10-20-2023 Urine culture Urine Culture [facility] Start: 10-19-2023 Advance Directive Discussion Advance Directive Discussion [facility] Start: 10-19-2023 Behavioral Health Screening Behavioral Health Screening [facility] Start: 06-19-2023 Covid-19 Vaccine () Covid-19 Vaccine () [facility] Start: 10-19-2022 ADVANCE DIRECTIVE DISCUSSION ADVANCE DIRECTIVE DISCUSSION [facility] Start: 10-19-2022 DEPRESSION ASSESSMENT DEPRESSION ASS ESSMENT [facility] Start: 06-19-2022 Influenza vaccination INFLUENZA (#1) [facility] Start: 12-04-2021 COVID-19 VACCINE (4 - Booster for Pfizer series) COVID-19 VACCINE (4 - Booster for Pfizer series) [facility] Start: 10-19-2021 ADVANCE DIRECTIVE DISCUSSION ADVANCE DIRECTIVE DISCUSSION [facility] Start: 10-19-2021 DEPRESSION ASSESSMENT DEPRESSION ASS ESSMENT [facility] Start: 2021 RSV Vaccine (1 - 1-d ose 75+ series) RSV Vaccine (1 - 1-dose 75+ series) [facility] Start: 02-24-2019 DIABETES SCREEN DIABETES SCREEN [facility] Start: 08-07-2017 End: 08-07-2017 Appointment Appointment [facility] Work Phone: Start: 05-10-2013 Hepatitis B surface antibody level LDL CHOLESTEROL [facility] Start: 2006 RSV Vaccine (1 - 1-d ose 60+ series) RSV Vaccine (1 - 1-dose 60+ series) [facility] Start: 02-19-1996 SHINGRIX VACCINE (1 of 2) SHINGRIX VACCINE (1 of 2) [facility] Start: 02-19-1964 ANNUAL PCP TEAM [employer] OPERATOR CHRISTINE DISEASE VISIT ANNUAL PCP TEAM CHRONIC DISEASE VISIT [facility] Start: 02-19-1964 Anxiety Screening Anxiety Screening [facility] Start: 02-19-1964 Depression Screening Depression Scre ening [facility] Start: 02-19-1964 HEPATITIS C SCREENING HEPATITIS C [facility] Start: 02-19-1964 Hepatitis C screening Hepatitis C [facility] Bacteria identified in Unspecified specimen by Anaerobe culture [facility] CT Chest WO contrast [facility] Ferritin [Mass/volum e] in Serum or Plasma [facility] Patient Education [facility] inic Work Phone: Patient referral [facility] Work Phone: US.doppler Lower extremity vein [facility] US.doppler Lower extremity vein [facility] US.doppler Lower extremity vessels [facility] Immunizations Immunization Date Immunization Notes Care Provider Beck fletcher 09-12-2024 tetanus toxoid, redu kendra diphtheria toxoid, and acellular pertussis vaccine, adsorbed Dr. Randa Joseph DO Work Phone: [facility] 01-15-2021 Covid (Pfizer) Dr. Peter tang Work Phone: [facility] 12-25-2020 Covid (Pfizer) Dr. Peter tang Work Phone: [facility] 04-26-2020 tetanus toxoid, redu kendra diphtheria toxoid, and acellular pertussis vaccine, adsorbed Dr. Peter Finney Work Phone: [facility] 07-06-[address] Peter Finney Work Phone: [facility] 07-18-2016 influenza, high dose seasonal, preservative-free Maxx Mayer MD Work Phone: [facility] Work Phone: 07-11-2015 influenza, high dose seasonal, preservative-free Maxx Mayer MD Work Phone: [facility] 07-11-2015 pneumococcal conjuga te vaccine, 13 valent Maxx Mayer MD Work Phone: [facility] 07-07-2014 influenza, high dose seasonal, preservative-free Maxx Mayer MD Work Phone: [facility] 05-31-2014 tetanus toxoid, redu kendra diphtheria toxoid, and acellular pertussis vaccine, adsorbed Maxx Mayer MD Work Phone: [facility] 05-31-2014 typhoid vaccine, unspecified formulation Maxx Mayer MD Work Phone: [facility] 08-17-2013 pneumococcal polysaccharide vaccine, 23 valent Maxx Mayer MD Work Phone: [facility] 08-03-2013 influenza virus vacc ine, unspecified formulation Maxx Mayer MD Work Phone: [facility] Payers Date Payer Category Payer Self-pay [id number] 2011 Unknown HOSPITAL/MEDICAL GENERIC MEDICAL GENERIC [id number] 2011-Present [phone] [address] [place] [address] Indemnity [id number] 2011 Unknown [id number] 2011 Medicare MEDICARE MEDICAR E A AND B [id number] 2011-Present [phone] [address] [address] [place] [address] Medicare [id number] 2011 Medicare [id number] 1959 Medicare [id number] 1946 Unknown [id number] 1946 Unknown [id number] 2.16.840.1.617835.3.579.2.278 1946 Unknown [id number] 2.16.840.1.284999.3.579.2.278 1946 Unknown [id number] 2.16.840.1.991046.3.579.2.278 1946 Unknown [id number] 2.16.840.1.142366.3.579.2.278 1946 Unknown [id number] 2.16.840.1.012867.3.579.2.278 Unknown [id number] 2.16.840.1.321404.3.579.2.462 Unknown [id number] 2.16.840.1.117958.3.579.2.462 Unknown [id number] 2.16.840.1.344924.3.579.2.462 Unknown [id number] 2.16.840.1.368016.3.579.2.462 Unknown [id number] 2.16.840.1.595122.3.579.2.462 Unknown [id number] 2.16.840.1.931339.3.579.2.462 Unknown [id number] 2.16.840.1.636395.3.579.2.462 Unknown [id number] 2.16.840.1.829145.3.579.2.462 Unknown [id number] 2.16.840.1.319402.3.579.2.462 Unknown [id number] 2.16.840.1.928093.3.579.2.462 Unknown [id number] 2.16.840.1.511263.3.579.2.462 Unknown [id number] 2..840.1.411684.3.579.2.462 Unknown [id number] 2.840.1.737923.3.579.2.462 Unknown [id number] 2.840.1.370323.3.579.2.462 Unknown [id number] 2.840.1.172709.3.579.2.462 Unknown [id number] 2.840.1.088022.3.579.2.462 Unknown [id number] 2.840.1.196303.3.579.2.462 Unknown [id number] 2..840.1.023484.3.579.2.462 Unknown [id number] 2.840.1.662105.3.579.2.462 Unknown [id number] 2.840.1.424159.3.579.2.462 Unknown [id number] 2.840.1.417377.3.579.2.462 Unknown [id number] 2.16840.1.105055.3.579.2.462 Unknown [id number] Unknown [id number] Unknown [id number] Unknown [id number] Unknown [id number] Unknown [id number] Unknown [id number] Unknown [id number] Unknown [id number] Unknown [id number] Unknown [id number] Social History Date Type Detail Facility Start: 10-01-2021 End: 01-26-2024 Tobacco smoking status [facility] Unknown if ever smoked [facility] Start: 02-12-2021 None [facility] Start: 10-21-2019 Spouse/ Signif icant Other [facility] Start: 02-12-2021 Non-smoker [facility] Start: 1945 Sex Assigned At Male [facility] Start: 08-23-2012 End: 11-05-2024 Tobacco smoking status HIIS Ex-smoker [facility] End: 10-19-1967 History of tobacco use Current smoker [facility] End: 10-19-1967 History of tobacco use Cigarette Smoker [facility] Start: 08-23-2012 End: 08-08-2024 Tobacco use and exposure Smokeless tobacco non-user [facility] Start: 08-04-2022 End: 08-08-2024 Alcohol intake Current non-drinker of alcohol (finding) [facility] Start: 1945 Sex Assigned At Not on file C [facility] Start: 07-25-2022 End: 09-17-2022 Exposure to SARS-CoV-2 (event) Not sure [facility] Start: 11-09-2022 End: 02-14-2023 History of Social function [facility] Start: 11-09-2022 End: 02-14-2023 Tobacco use panel [facility] Adult Depression Screening Assessment [address] [facility] Start: 12-29-2024 End: 01-25-2025 Sex Male (finding) [facility] Medical Equipment Procedure Code Equipment Code Equipment Origin al Text Equipment Identifier Dates 3.3MM DRILL BIT FDA Start: 10-07-2017 ISLAM GAP PLATE SCREW FDA Start: 10-07-2017 ISLAM MODU LAR HIP SYSTM FDA Start: 10-07-2017 RESTORE ANATOMIC GONZÁLEZ SHELL FDA Start: 10-07-2017 explant full blade FDA Start: 10-07-2017 mabel explant truncated blade FDA Start: 10-07-2017 LFIT 40 FEMORAL HEAD FDA Star t: 10-07-2017 MDM CEMENTLESS LINER FDA Star t: 10-07-2017 ISLAM ADM/ MDM INSERT FDA Start: 10-07-2017 ISLAM GAP PLATE SCREW FDA Start: 10-07-2017 ISLAM GAP PLATE SCREW FDA Start: 10-07-2017 ISLAM GAP PLATE SCREW FDA Start: 10-07-2017 ISLAM GAP PLATE SCREW FDA Start: 10-07-2017 ISLAM GAP PLATE SCREW FDA Start: 10-07-2017 3.3MM DRILL BIT FDA Start: 10-07-2017 ISLAM GAP PLATE SCREW FDA Start: 10-07-2017 ISLAM MODU LAR HIP SYSTM FDA Start: 10-07-2017 RESTORE ANATOMIC GONZÁLEZ SHELL FDA Start: 10-07-2017 explant full blade FDA Start: 10-07-2017 mabel explant truncated blade FDA Start: 10-07-2017 LFIT 40 FEMORAL HEAD FDA Star t: 10-07-2017 MDM CEMENTLESS LINER FDA Star t: 10-07-2017 ISLAM ADM/ MDM INSERT FDA Start: 10-07-2017 ISLAM GAP PLATE SCREW FDA Start: 10-07-2017 ISLAM GAP PLATE SCREW FDA Start: 10-07-2017 ISLAM GAP PLATE SCREW FDA Start: 10-07-2017 ISLAM GAP PLATE SCREW FDA Start: 10-07-2017 ISLAM GAP PLATE SCREW FDA Start: 10-07-2017 3.3MM DRILL BIT FDA Start: 10-07-2017 ISLAM GAP PLATE SCREW FDA Start: 10-07-2017 ISLAM MODU LAR HIP SYSTM FDA Start: 10-07-2017 RESTORE ANATOMIC GONZÁLEZ SHELL FDA Start: 10-07-2017 explant full blade FDA Start: 10-07-2017 mabel explant truncated blade FDA Start: 10-07-2017 LFIT 40 FEMORAL HEAD FDA Star t: 10-07-2017 MDM CEMENTLESS LINER FDA Star t: 10-07-2017 ISLAM ADM/ MDM INSERT FDA Start: 10-07-2017 ISLAM GAP PLATE SCREW FDA Start: 10-07-2017 ISLAM GAP PLATE SCREW FDA Start: 10-07-2017 ISLAM GAP PLATE SCREW FDA Start: 10-07-2017 ISLAM GAP PLATE SCREW FDA Start: 10-07-2017 ISLAM GAP PLATE SCREW FDA Start: 10-07-2017 3.3MM DRILL BIT FDA Start: 10-07-2017 ISLAM GAP PLATE SCREW FDA Start: 10-07-2017 ISLAM MODU LAR HIP SYSTM FDA Start: 10-07-2017 RESTORE ANATOMIC GONZÁLEZ SHELL FDA Start: 10-07-2017 explant full blade FDA Start: 10-07-2017 mabel explant truncated blade FDA Start: 10-07-2017 LFIT 40 FEMORAL HEAD FDA Star t: 10-07-2017 MDM CEMENTLESS LINER FDA Star t: 10-07-2017 ISLAM ADM/ MDM INSERT FDA Start: 10-07-2017 ISLAM GAP PLATE SCREW FDA Start: 10-07-2017 ISLAM GAP PLATE SCREW FDA Start: 10-07-2017 ISLAM GAP PLATE SCREW FDA Start: 10-07-2017 ISLAM GAP PLATE SCREW FDA Start: 10-07-2017 ISLAM GAP PLATE SCREW FDA Start: 10-07-2017 3.3MM DRILL BIT FDA Start: 10-07-2017 ISLAM GAP PLATE SCREW FDA Start: 10-07-2017 ISLAM MODU LAR HIP SYSTM FDA Start: 10-07-2017 RESTORE ANATOMIC GONZÁLEZ SHELL FDA Start: 10-07-2017 explant full blade FDA Start: 10-07-2017 mabel explant truncated blade FDA Start: 10-07-2017 LFIT 40 FEMORAL HEAD FDA Star t: 10-07-2017 MDM CEMENTLESS LINER FDA Star t: 10-07-2017 ISLAM ADM/ MDM INSERT FDA Start: 10-07-2017 ISLAM GAP PLATE SCREW FDA Start: 10-07-2017 ISLAM GAP PLATE SCREW FDA Start: 10-07-2017 ISLAM GAP PLATE SCREW FDA Start: 10-07-2017 ISLAM GAP PLATE SCREW FDA Start: 10-07-2017 ISLAM GAP PLATE SCREW FDA Start: 10-07-2017 3.3MM DRILL BIT FDA Start: 10-07-2017 ISLAM GAP PLATE SCREW FDA Start: 10-07-2017 ISLAM MODU LAR HIP SYSTM FDA Start: 10-07-2017 RESTORE ANATOMIC GONZÁLEZ SHELL FDA Start: 10-07-2017 explant full blade FDA Start: 10-07-2017 mabel explant truncated blade FDA Start: 10-07-2017 LFIT 40 FEMORAL HEAD FDA Star t: 10-07-2017 MDM CEMENTLESS LINER FDA Star t: 10-07-2017 ISLAM ADM/ MDM INSERT FDA Start: 10-07-2017 ISLAM GAP PLATE SCREW FDA Start: 10-07-2017 ISLAM GAP PLATE SCREW FDA Start: 10-07-2017 ISLAM GAP PLATE SCREW FDA Start: 10-07-2017 ISLAM GAP PLATE SCREW FDA Start: 10-07-2017 ISLAM GAP PLATE SCREW FDA Start: 10-07-2017 3.3MM DRILL BIT FDA Start: 10-07-2017 ISLAM GAP PLATE SCREW FDA Start: 10-07-2017 ISLAM MODU LAR HIP SYSTM FDA Start: 10-07-2017 RESTORE ANATOMIC GONZÁLEZ SHELL FDA Start: 10-07-2017 explant full blade FDA Start: 10-07-2017 mabel explant truncated blade FDA Start: 10-07-2017 LFIT 40 FEMORAL HEAD FDA Star t: 10-07-2017 MDM CEMENTLESS LINER FDA Star t: 10-07-2017 ISLAM ADM/ MDM INSERT FDA Start: 10-07-2017 ISLAM GAP PLATE SCREW FDA Start: 10-07-2017 ISLAM GAP PLATE SCREW FDA Start: 10-07-2017 ISLAM GAP PLATE SCREW FDA Start: 10-07-2017 ISLAM GAP PLATE SCREW FDA Start: 10-07-2017 ISLAM GAP PLATE SCREW FDA Start: 10-07-2017 3.3MM DRILL BIT FDA Start: 10-07-2017 ISLAM GAP PLATE SCREW FDA Start: 10-07-2017 ISLAM MODU LAR HIP SYSTM FDA Start: 10-07-2017 RESTORE ANATOMIC GONZÁLZE SHELL FDA Start: 10-07-2017 explant full blade FDA Start: 10-07-2017 mabel explant truncated blade FDA Start: 10-07-2017 LFIT 40 FEMORAL HEAD FDA Star t: 10-07-2017 MDM CEMENTLESS LINER FDA Star t: 10-07-2017 ISLAM ADM/ MDM INSERT FDA Start: 10-07-2017 ISLAM GAP PLATE SCREW FDA Start: 10-07-2017 ISLAM GAP PLATE SCREW FDA Start: 10-07-2017 ISLAM GAP PLATE SCREW FDA Start: 10-07-2017 ISLAM GAP PLATE SCREW FDA Start: 10-07-2017 ISLAM GAP PLATE SCREW FDA Start: 10-07-2017 3.3MM DRILL BIT FDA Start: 10-07-2017 ISLAM GAP PLATE SCREW FDA Start: 10-07-2017 ISLAM MODU LAR HIP SYSTM FDA Start: 10-07-2017 RESTORE ANATOMIC GONZÁLEZ SHELL FDA Start: 10-07-2017 explant full blade FDA Start: 10-07-2017 mabel explant truncated blade FDA Start: 10-07-2017 LFIT 40 FEMORAL HEAD FDA Star t: 10-07-2017 MDM CEMENTLESS LINER FDA Star t: 10-07-2017 ISLAM ADM/ MDM INSERT FDA Start: 10-07-2017 ISLAM GAP PLATE SCREW FDA Start: 10-07-2017 ISLAM GAP PLATE SCREW FDA Start: 10-07-2017 ISLAM GAP PLATE SCREW FDA Start: 10-07-2017 ISLAM GAP PLATE SCREW FDA Start: 10-07-2017 ISLAM GAP PLATE SCREW FDA Start: 10-07-2017 3.3MM DRILL BIT FDA Start: 10-07-2017 ISLAM GAP PLATE SCREW FDA Start: 10-07-2017 ISLAM MODU LAR HIP SYSTM FDA Start: 10-07-2017 RESTORE ANATOMIC GONZÁLEZ SHELL FDA Start: 10-07-2017 explant full blade FDA Start: 10-07-2017 mabel explant truncated blade FDA Start: 10-07-2017 LFIT 40 FEMORAL HEAD FDA Star t: 10-07-2017 MDM CEMENTLESS LINER FDA Star t: 10-07-2017 ISLAM ADM/ MDM INSERT FDA Start: 10-07-2017 ISLAM GAP PLATE SCREW FDA Start: 10-07-2017 ISLAM GAP PLATE SCREW FDA Start: 10-07-2017 ISLAM GAP PLATE SCREW FDA Start: 10-07-2017 ISLAM GAP PLATE SCREW FDA Start: 10-07-2017 ISLAM GAP PLATE SCREW FDA Start: 10-07-2017 3.3MM DRILL BIT FDA Start: 10-07-2017 ISLAM GAP PLATE SCREW FDA Start: 10-07-2017 ISLAM MODU LAR HIP SYSTM FDA Start: 10-07-2017 RESTORE ANATOMIC GONZÁLEZ SHELL FDA Start: 10-07-2017 explant full blade FDA Start: 10-07-2017 mabel explant truncated blade FDA Start: 10-07-2017 LFIT 40 FEMORAL HEAD FDA Star t: 10-07-2017 MDM CEMENTLESS LINER FDA Star t: 10-07-2017 ISLAM ADM/ MDM INSERT FDA Start: 10-07-2017 ISLAM GAP PLATE SCREW FDA Start: 10-07-2017 ISLAM GAP PLATE SCREW FDA Start: 10-07-2017 ISLAM GAP PLATE SCREW FDA Start: 10-07-2017 ISLAM GAP PLATE SCREW FDA Start: 10-07-2017 ISLAM GAP PLATE SCREW FDA Start: 10-07-2017 3.3MM DRILL BIT FDA Start: 10-07-2017 ISLAM GAP PLATE SCREW FDA Start: 10-07-2017 ISLAM MODU LAR HIP SYSTM FDA Start: 10-07-2017 RESTORE ANATOMIC GONZÁLEZ SHELL FDA Start: 10-07-2017 explant full blade FDA Start: 10-07-2017 mabel explant truncated blade FDA Start: 10-07-2017 LFIT 40 FEMORAL HEAD FDA Star t: 10-07-2017 MDM CEMENTLESS LINER FDA Star t: 10-07-2017 ISLAM ADM/ MDM INSERT FDA Start: 10-07-2017 ISLAM GAP PLATE SCREW FDA Start: 10-07-2017 ISLAM GAP PLATE SCREW FDA Start: 10-07-2017 ISLAM GAP PLATE SCREW FDA Start: 10-07-2017 ISLAM GAP PLATE SCREW FDA Start: 10-07-2017 ISLAM GAP PLATE SCREW FDA Start: 10-07-2017 Dkk-Iv-O-Kind Im plant - [id number] Start: 08-23-2014 Screw Bn 2.7mm 1 6mm Lcp Ss - [id number] Start: 08-23-2014 3.3MM DRILL BIT FDA Start: 10-07-2017 ISLAM GAP PLATE SCREW FDA Start: 10-07-2017 ISLAM MODU LAR HIP SYSTM FDA Start: 10-07-2017 RESTORE ANATOMIC GONZÁLEZ SHELL FDA Start: 10-07-2017 explant full blade FDA Start: 10-07-2017 mabel explant truncated blade FDA Start: 10-07-2017 LFIT 40 FEMORAL HEAD FDA Star t: 10-07-2017 MDM CEMENTLESS LINER FDA Star t: 10-07-2017 ISLAM ADM/ MDM INSERT FDA Start: 10-07-2017 ISLAM GAP PLATE SCREW FDA Start: 10-07-2017 ISLAM GAP PLATE SCREW FDA Start: 10-07-2017 ISLAM GAP PLATE SCREW FDA Start: 10-07-2017 ISLAM GAP PLATE SCREW FDA Start: 10-07-2017 ISLAM GAP PLATE SCREW FDA Start: 10-07-2017 Mesh Surgipro La rge Polypropylene Surgical Nonabsorbable Plug Knitted - [id number] Start: 09-10-2022 3.3MM DRILL BIT FDA Start: 10-07-2017 ISLAM GAP PLATE SCREW FDA Start: 10-07-2017 ISLAM MODU LAR HIP SYSTM FDA Start: 10-07-2017 RESTORE ANATOMIC GONZÁLEZ SHELL FDA Start: 10-07-2017 explant full blade FDA Start: 10-07-2017 mabel explant truncated blade FDA Start: 10-07-2017 LFIT 40 FEMORAL HEAD FDA Star t: 10-07-2017 MDM CEMENTLESS LINER FDA Star t: 10-07-2017 ISLAM ADM/ MDM INSERT FDA Start: 10-07-2017 ISLAM GAP PLATE SCREW FDA Start: 10-07-2017 ISLAM GAP PLATE SCREW FDA Start: 10-07-2017 ISLAM GAP PLATE SCREW FDA Start: 10-07-2017 ISLAM GAP PLATE SCREW FDA Start: 10-07-2017 ISLAM GAP PLATE SCREW FDA Start: 10-07-2017 3.3MM DRILL BIT FDA Start: 10-07-2017 ISLAM GAP PLATE SCREW FDA Start: 10-07-2017 ISLAM MODU LAR HIP SYSTM FDA Start: 10-07-2017 RESTORE ANATOMIC GNOZÁLEZ SHELL FDA Start: 10-07-2017 explant full blade FDA Start: 10-07-2017 mabel explant truncated blade FDA Start: 10-07-2017 LFIT 40 FEMORAL HEAD FDA Star t: 10-07-2017 MDM CEMENTLESS LINER FDA Star t: 10-07-2017 ISLAM ADM/ MDM INSERT FDA Start: 10-07-2017 ISLAM GAP PLATE SCREW FDA Start: 10-07-2017 ISLAM GAP PLATE SCREW FDA Start: 10-07-2017 ISLAM GAP PLATE SCREW FDA Start: 10-07-2017 ISLAM GAP PLATE SCREW FDA Start: 10-07-2017 ISLAM GAP PLATE SCREW FDA Start: 10-07-2017 3.3MM DRILL BIT FDA Start: 10-07-2017 ISLAM GAP PLATE SCREW FDA Start: 10-07-2017 ISLAM MODU LAR HIP SYSTM FDA Start: 10-07-2017 RESTORE ANATOMIC GONZÁLEZ SHELL FDA Start: 10-07-2017 explant full blade FDA Start: 10-07-2017 mabel explant truncated blade FDA Start: 10-07-2017 LFIT 40 FEMORAL HEAD FDA Star t: 10-07-2017 MDM CEMENTLESS LINER FDA Star t: 10-07-2017 ISLAM ADM/ MDM INSERT FDA Start: 10-07-2017 ISLAM GAP PLATE SCREW FDA Start: 10-07-2017 ISLAM GAP PLATE SCREW FDA Start: 10-07-2017 ISLAM GAP PLATE SCREW FDA Start: 10-07-2017 ISLAM GAP PLATE SCREW FDA Start: 10-07-2017 ISLAM GAP PLATE SCREW FDA Start: 10-07-2017 3.3MM DRILL BIT FDA Start: 10-07-2017 ISLAM GAP PLATE SCREW FDA Start: 10-07-2017 ISLAM MODU LAR HIP SYSTM FDA Start: 10-07-2017 RESTORE ANATOMIC GONZÁLEZ SHELL FDA Start: 10-07-2017 explant full blade FDA Start: 10-07-2017 mabel explant truncated blade FDA Start: 10-07-2017 LFIT 40 FEMORAL HEAD FDA Star t: 10-07-2017 MDM CEMENTLESS LINER FDA Star t: 10-07-2017 ISLAM ADM/ MDM INSERT FDA Start: 10-07-2017 ISLAM GAP PLATE SCREW FDA Start: 10-07-2017 ISLAM GAP PLATE SCREW FDA Start: 10-07-2017 ISLAM GAP PLATE SCREW FDA Start: 10-07-2017 ISLAM GAP PLATE SCREW FDA Start: 10-07-2017 ISLAM GAP PLATE SCREW FDA Start: 10-07-2017 3.3MM DRILL BIT FDA Start: 10-07-2017 ISLAM GAP PLATE SCREW FDA Start: 10-07-2017 ISLAM MODU LAR HIP SYSTM FDA Start: 10-07-2017 RESTORE ANATOMIC GONZÁLEZ SHELL FDA Start: 10-07-2017 explant full blade FDA Start: 10-07-2017 mabel explant truncated blade FDA Start: 10-07-2017 LFIT 40 FEMORAL HEAD FDA Star t: 10-07-2017 MDM CEMENTLESS LINER FDA Star t: 10-07-2017 ISLAM ADM/ MDM INSERT FDA Start: 10-07-2017 ISLAM GAP PLATE SCREW FDA Start: 10-07-2017 ISLAM GAP PLATE SCREW FDA Start: 10-07-2017 ISLAM GAP PLATE SCREW FDA Start: 10-07-2017 ISLAM GAP PLATE SCREW FDA Start: 10-07-2017 ISLAM GAP PLATE SCREW FDA Start: 10-07-2017 3.3MM DRILL BIT FDA Start: 10-07-2017 ISLAM GAP PLATE SCREW FDA Start: 10-07-2017 ISLAM MODU LAR HIP SYSTM FDA Start: 10-07-2017 RESTORE ANATOMIC GONZÁLEZ SHELL FDA Start: 10-07-2017 explant full blade FDA Start: 10-07-2017 mabel explant truncated blade FDA Start: 10-07-2017 LFIT 40 FEMORAL HEAD FDA Star t: 10-07-2017 MDM CEMENTLESS LINER FDA Star t: 10-07-2017 ISLAM ADM/ MDM INSERT FDA Start: 10-07-2017 ISLAM GAP PLATE SCREW FDA Start: 10-07-2017 ISLAM GAP PLATE SCREW FDA Start: 10-07-2017 ISLAM GAP PLATE SCREW FDA Start: 10-07-2017 ISLAM GAP PLATE SCREW FDA Start: 10-07-2017 ISLAM GAP PLATE SCREW FDA Start: 10-07-2017 3.3MM DRILL BIT FDA Start: 10-07-2017 ISLAM GAP PLATE SCREW FDA Start: 10-07-2017 ISLAM MODU LAR HIP SYSTM FDA Start: 10-07-2017 RESTORE ANATOMIC GONZÁLEZ SHELL FDA Start: 10-07-2017 explant full blade FDA Start: 10-07-2017 mabel explant truncated blade FDA Start: 10-07-2017 LFIT 40 FEMORAL HEAD FDA Star t: 10-07-2017 MDM CEMENTLESS LINER FDA Star t: 10-07-2017 ISLAM ADM/ MDM INSERT FDA Start: 10-07-2017 ISLAM GAP PLATE SCREW FDA Start: 10-07-2017 ISLAM GAP PLATE SCREW FDA Start: 10-07-2017 ISLAM GAP PLATE SCREW FDA Start: 10-07-2017 ISLAM GAP PLATE SCREW FDA Start: 10-07-2017 ISLAM GAP PLATE SCREW FDA Start: 10-07-2017 3.3MM DRILL BIT FDA Start: 10-07-2017 ISLAM GAP PLATE SCREW FDA Start: 10-07-2017 ISLAM MODU LAR HIP SYSTM FDA Start: 10-07-2017 RESTORE ANATOMIC GONZÁLEZ SHELL FDA Start: 10-07-2017 explant full blade FDA Start: 10-07-2017 mabel explant truncated blade FDA Start: 10-07-2017 LFIT 40 FEMORAL HEAD FDA Star t: 10-07-2017 MDM CEMENTLESS LINER FDA Star t: 10-07-2017 ISLAM ADM/ MDM INSERT FDA Start: 10-07-2017 ISLAM GAP PLATE SCREW FDA Start: 10-07-2017 ISLAM GAP PLATE SCREW FDA Start: 10-07-2017 ISLAM GAP PLATE SCREW FDA Start: 10-07-2017 ISLAM GAP PLATE SCREW FDA Start: 10-07-2017 ISLAM GAP PLATE SCREW FDA Start: 10-07-2017 3.3MM DRILL BIT FDA Start: 10-07-2017 ISLAM GAP PLATE SCREW FDA Start: 10-07-2017 ISLAM MODU LAR HIP SYSTM FDA Start: 10-07-2017 RESTORE ANATOMIC GONZÁLEZ SHELL FDA Start: 10-07-2017 explant full blade FDA Start: 10-07-2017 mabel explant truncated blade FDA Start: 10-07-2017 LFIT 40 FEMORAL HEAD FDA Star t: 10-07-2017 MDM CEMENTLESS LINER FDA Star t: 10-07-2017 ISLAM ADM/ MDM INSERT FDA Start: 10-07-2017 ISLAM GAP PLATE SCREW FDA Start: 10-07-2017 ISLAM GAP PLATE SCREW FDA Start: 10-07-2017 ISLAM GAP PLATE SCREW FDA Start: 10-07-2017 ISLAM GAP PLATE SCREW FDA Start: 10-07-2017 ISLAM GAP PLATE SCREW FDA Start: 10-07-2017 3.3MM DRILL BIT FDA Start: 10-07-2017 ISLAM GAP PLATE SCREW FDA Start: 10-07-2017 ISLAM MODU LAR HIP SYSTM FDA Start: 10-07-2017 RESTORE ANATOMIC GONZÁLEZ SHELL FDA Start: 10-07-2017 explant full blade FDA Start: 10-07-2017 mabel explant truncated blade FDA Start: 10-07-2017 LFIT 40 FEMORAL HEAD FDA Star t: 10-07-2017 MDM CEMENTLESS LINER FDA Star t: 10-07-2017 ISLAM ADM/ MDM INSERT FDA Start: 10-07-2017 ISLAM GAP PLATE SCREW FDA Start: 10-07-2017 ISLAM GAP PLATE SCREW FDA Start: 10-07-2017 ISLAM GAP PLATE SCREW FDA Start: 10-07-2017 ISLAM GAP PLATE SCREW FDA Start: 10-07-2017 ISLAM GAP PLATE SCREW FDA Start: 10-07-2017 3.3MM DRILL BIT FDA Start: 10-07-2017 ISLAM GAP PLATE SCREW FDA Start: 10-07-2017 ISLAM MODU LAR HIP SYSTM FDA Start: 10-07-2017 RESTORE ANATOMIC GONZÁLEZ SHELL FDA Start: 10-07-2017 explant full blade FDA Start: 10-07-2017 mabel explant truncated blade FDA Start: 10-07-2017 LFIT 40 FEMORAL HEAD FDA Star t: 10-07-2017 MDM CEMENTLESS LINER FDA Star t: 10-07-2017 ISLAM ADM/ MDM INSERT FDA Start: 10-07-2017 ISLAM GAP PLATE SCREW FDA Start: 10-07-2017 ISLAM GAP PLATE SCREW FDA Start: 10-07-2017 ISLAM GAP PLATE SCREW FDA Start: 10-07-2017 ISLAM GAP PLATE SCREW FDA Start: 10-07-2017 ISLAM GAP PLATE SCREW FDA Start: 10-07-2017 3.3MM DRILL BIT FDA Start: 10-07-2017 ISLAM GAP PLATE SCREW FDA Start: 10-07-2017 ISLAM MODU LAR HIP SYSTM FDA Start: 10-07-2017 RESTORE ANATOMIC GONZÁLEZ SHELL FDA Start: 10-07-2017 explant full blade FDA Start: 10-07-2017 mabel explant truncated blade FDA Start: 10-07-2017 LFIT 40 FEMORAL HEAD FDA Star t: 10-07-2017 MDM CEMENTLESS LINER FDA Star t: 10-07-2017 ISLAM ADM/ MDM INSERT FDA Start: 10-07-2017 ISLAM GAP PLATE SCREW FDA Start: 10-07-2017 ISLAM GAP PLATE SCREW FDA Start: 10-07-2017 ISLAM GAP PLATE SCREW FDA Start: 10-07-2017 ISLAM GAP PLATE SCREW FDA Start: 10-07-2017 ISLAM GAP PLATE SCREW FDA Start: 10-07-2017 3.3MM DRILL BIT FDA Start: 10-07-2017 ISLAM GAP PLATE SCREW FDA Start: 10-07-2017 ISLAM MODU LAR HIP SYSTM FDA Start: 10-07-2017 RESTORE ANATOMIC GONZÁLEZ SHELL FDA Start: 10-07-2017 explant full blade FDA Start: 10-07-2017 mabel explant truncated blade FDA Start: 10-07-2017 LFIT 40 FEMORAL HEAD FDA Star t: 10-07-2017 MDM CEMENTLESS LINER FDA Star t: 10-07-2017 ISLAM ADM/ MDM INSERT FDA Start: 10-07-2017 ISLAM GAP PLATE SCREW FDA Start: 10-07-2017 ISLAM GAP PLATE SCREW FDA Start: 10-07-2017 ISLAM GAP PLATE SCREW FDA Start: 10-07-2017 ISLAM GAP PLATE SCREW FDA Start: 10-07-2017 ISLAM GAP PLATE SCREW FDA Start: 10-07-2017 3.3MM DRILL BIT FDA Start: 10-07-2017 ISLAM GAP PLATE SCREW FDA Start: 10-07-2017 ISLAM MODU LAR HIP SYSTM FDA Start: 10-07-2017 RESTORE ANATOMIC GONZÁLEZ SHELL FDA Start: 10-07-2017 explant full blade FDA Start: 10-07-2017 mabel explant truncated blade FDA Start: 10-07-2017 LFIT 40 FEMORAL HEAD FDA Star t: 10-07-2017 MDM CEMENTLESS LINER FDA Star t: 10-07-2017 ISLAM ADM/ MDM INSERT FDA Start: 10-07-2017 ISLAM GAP PLATE SCREW FDA Start: 10-07-2017 ISLAM GAP PLATE SCREW FDA Start: 10-07-2017 ISLAM GAP PLATE SCREW FDA Start: 10-07-2017 ISLAM GAP PLATE SCREW FDA Start: 10-07-2017 ISLAM GAP PLATE SCREW FDA Start: 10-07-2017 3.3MM DRILL BIT FDA Start: 10-07-2017 ISLAM GAP PLATE SCREW FDA Start: 10-07-2017 ISLAM MODU LAR HIP SYSTM FDA Start: 10-07-2017 RESTORE ANATOMIC GONZÁLEZ SHELL FDA Start: 10-07-2017 explant full blade FDA Start: 10-07-2017 mabel explant truncated blade FDA Start: 10-07-2017 LFIT 40 FEMORAL HEAD FDA Star t: 10-07-2017 MDM CEMENTLESS LINER FDA Star t: 10-07-2017 ISLAM ADM/ MDM INSERT FDA Start: 10-07-2017 ISLAM GAP PLATE SCREW FDA Start: 10-07-2017 ISLAM GAP PLATE SCREW FDA Start: 10-07-2017 ISLAM GAP PLATE SCREW FDA Start: 10-07-2017 ISLAM GAP PLATE SCREW FDA Start: 10-07-2017 ISLAM GAP PLATE SCREW FDA Start: 10-07-2017 3.3MM DRILL BIT FDA Start: 10-07-2017 ISLAM GAP PLATE SCREW FDA Start: 10-07-2017 ISLAM MODU LAR HIP SYSTM FDA Start: 10-07-2017 RESTORE ANATOMIC GONZÁLEZ SHELL FDA Start: 10-07-2017 explant full blade FDA Start: 10-07-2017 mabel explant truncated blade FDA Start: 10-07-2017 LFIT 40 FEMORAL HEAD FDA Star t: 10-07-2017 MDM CEMENTLESS LINER FDA Star t: 10-07-2017 ISLAM ADM/ MDM INSERT FDA Start: 10-07-2017 ISLAM GAP PLATE SCREW FDA Start: 10-07-2017 ISLAM GAP PLATE SCREW FDA Start: 10-07-2017 ISLAM GAP PLATE SCREW FDA Start: 10-07-2017 ISLAM GAP PLATE SCREW FDA Start: 10-07-2017 ISLAM GAP PLATE SCREW FDA Start: 10-07-2017 3.3MM DRILL BIT FDA Start: 10-07-2017 ISLAM GAP PLATE SCREW FDA Start: 10-07-2017 ISLAM MODU LAR HIP SYSTM FDA Start: 10-07-2017 RESTORE ANATOMIC GONZÁLEZ SHELL FDA Start: 10-07-2017 explant full blade FDA Start: 10-07-2017 mabel explant truncated blade FDA Start: 10-07-2017 LFIT 40 FEMORAL HEAD FDA Star t: 10-07-2017 MDM CEMENTLESS LINER FDA Star t: 10-07-2017 ISLAM ADM/ MDM INSERT FDA Start: 10-07-2017 ISLAM GAP PLATE SCREW FDA Start: 10-07-2017 ISLAM GAP PLATE SCREW FDA Start: 10-07-2017 ISLAM GAP PLATE SCREW FDA Start: 10-07-2017 ISLAM GAP PLATE SCREW FDA Start: 10-07-2017 ISLAM GAP PLATE SCREW FDA Start: 10-07-2017 3.3MM DRILL BIT FDA Start: 10-07-2017 ISLAM GAP PLATE SCREW FDA Start: 10-07-2017 ISLAM MODU LAR HIP SYSTM FDA Start: 10-07-2017 RESTORE ANATOMIC GONZÁLEZ SHELL FDA Start: 10-07-2017 explant full blade FDA Start: 10-07-2017 mabel explant truncated blade FDA Start: 10-07-2017 LFIT 40 FEMORAL HEAD FDA Star t: 10-07-2017 MDM CEMENTLESS LINER FDA Star t: 10-07-2017 ISLAM ADM/ MDM INSERT FDA Start: 10-07-2017 ISLAM GAP PLATE SCREW FDA Start: 10-07-2017 ISLAM GAP PLATE SCREW FDA Start: 10-07-2017 ISLAM GAP PLATE SCREW FDA Start: 10-07-2017 ISLAM GAP PLATE SCREW FDA Start: 10-07-2017 ISLAM GAP PLATE SCREW FDA Start: 10-07-2017 3.3MM DRILL BIT FDA Start: 10-07-2017 ISLAM GAP PLATE SCREW FDA Start: 10-07-2017 ISLAM MODU LAR HIP SYSTM FDA Start: 10-07-2017 RESTORE ANATOMIC GONZÁLEZ SHELL FDA Start: 10-07-2017 explant full blade FDA Start: 10-07-2017 mabel explant truncated blade FDA Start: 10-07-2017 LFIT 40 FEMORAL HEAD FDA Star t: 10-07-2017 MDM CEMENTLESS LINER FDA Star t: 10-07-2017 ISLAM ADM/ MDM INSERT FDA Start: 10-07-2017 ISLAM GAP PLATE SCREW FDA Start: 10-07-2017 ISLAM GAP PLATE SCREW FDA Start: 10-07-2017 ISLAM GAP PLATE SCREW FDA Start: 10-07-2017 ISLAM GAP PLATE SCREW FDA Start: 10-07-2017 ISLAM GAP PLATE SCREW FDA Start: 10-07-2017 3.3MM DRILL BIT FDA Start: 10-07-2017 ISLAM GAP PLATE SCREW FDA Start: 10-07-2017 ISLAM MODU LAR HIP SYSTM FDA Start: 10-07-2017 RESTORE ANATOMIC GONZÁLEZ SHELL FDA Start: 10-07-2017 explant full blade FDA Start: 10-07-2017 mabel explant truncated blade FDA Start: 10-07-2017 LFIT 40 FEMORAL HEAD FDA Star t: 10-07-2017 MDM CEMENTLESS LINER FDA Star t: 10-07-2017 ISLAM ADM/ MDM INSERT FDA Start: 10-07-2017 ISLAM GAP PLATE SCREW FDA Start: 10-07-2017 ISLAM GAP PLATE SCREW FDA Start: 10-07-2017 ISLAM GAP PLATE SCREW FDA Start: 10-07-2017 ISLAM GAP PLATE SCREW FDA Start: 10-07-2017 ISLAM GAP PLATE SCREW FDA Start: 10-07-2017 3.3MM DRILL BIT FDA Start: 10-07-2017 ISLAM GAP PLATE SCREW FDA Start: 10-07-2017 ISLAM MODU LAR HIP SYSTM FDA Start: 10-07-2017 RESTORE ANATOMIC GONZÁLEZ SHELL FDA Start: 10-07-2017 explant full blade FDA Start: 10-07-2017 mabel explant truncated blade FDA Start: 10-07-2017 LFIT 40 FEMORAL HEAD FDA Star t: 10-07-2017 MDM CEMENTLESS LINER FDA Star t: 10-07-2017 ISLAM ADM/ MDM INSERT FDA Start: 10-07-2017 ISLAM GAP PLATE SCREW FDA Start: 10-07-2017 ISLAM GAP PLATE SCREW FDA Start: 10-07-2017 ISLAM GAP PLATE SCREW FDA Start: 10-07-2017 ISLAM GAP PLATE SCREW FDA Start: 10-07-2017 ISLAM GAP PLATE SCREW FDA Start: 10-07-2017 3.3MM DRILL BIT FDA Start: 10-07-2017 ISLAM GAP PLATE SCREW FDA Start: 10-07-2017 ISLAM MODU LAR HIP SYSTM FDA Start: 10-07-2017 RESTORE ANATOMIC GONZÁLEZ SHELL FDA Start: 10-07-2017 explant full blade FDA Start: 10-07-2017 mabel explant truncated blade FDA Start: 10-07-2017 LFIT 40 FEMORAL HEAD FDA Star t: 10-07-2017 MDM CEMENTLESS LINER FDA Star t: 10-07-2017 ISLAM ADM/ MDM INSERT FDA Start: 10-07-2017 ISLAM GAP PLATE SCREW FDA Start: 10-07-2017 ISLAM GAP PLATE SCREW FDA Start: 10-07-2017 ISLAM GAP PLATE SCREW FDA Start: 10-07-2017 ISLAM GAP PLATE SCREW FDA Start: 10-07-2017 ISLAM GAP PLATE SCREW FDA Start: 10-07-2017 3.3MM DRILL BIT FDA Start: 10-07-2017 ISLAM GAP PLATE SCREW FDA Start: 10-07-2017 ISLAM MODU LAR HIP SYSTM FDA Start: 10-07-2017 RESTORE ANATOMIC GONZÁLEZ SHELL FDA Start: 10-07-2017 explant full blade FDA Start: 10-07-2017 mabel explant truncated blade FDA Start: 10-07-2017 LFIT 40 FEMORAL HEAD FDA Star t: 10-07-2017 MDM CEMENTLESS LINER FDA Star t: 10-07-2017 ISLAM ADM/ MDM INSERT FDA Start: 10-07-2017 ISLAM GAP PLATE SCREW FDA Start: 10-07-2017 ISLAM GAP PLATE SCREW FDA Start: 10-07-2017 ISLAM GAP PLATE SCREW FDA Start: 10-07-2017 ISLAM GAP PLATE SCREW FDA Start: 10-07-2017 ISLAM GAP PLATE SCREW FDA Start: 10-07-2017 3.3MM DRILL BIT FDA Start: 10-07-2017 ISLAM GAP PLATE SCREW FDA Start: 10-07-2017 ISLAM MODU LAR HIP SYSTM FDA Start: 10-07-2017 RESTORE ANATOMIC GONZÁLEZ SHELL FDA Start: 10-07-2017 explant full blade FDA Start: 10-07-2017 mabel explant truncated blade FDA Start: 10-07-2017 LFIT 40 FEMORAL HEAD FDA Star t: 10-07-2017 MDM CEMENTLESS LINER FDA Star t: 10-07-2017 ISLAM ADM/ MDM INSERT FDA Start: 10-07-2017 ISLAM GAP PLATE SCREW FDA Start: 10-07-2017 ISLAM GAP PLATE SCREW FDA Start: 10-07-2017 ISLAM GAP PLATE SCREW FDA Start: 10-07-2017 ISLAM GAP PLATE SCREW FDA Start: 10-07-2017 ISLAM GAP PLATE SCREW FDA Start: 10-07-2017 3.3MM DRILL BIT FDA Start: 10-07-2017 ISLAM GAP PLATE SCREW FDA Start: 10-07-2017 ISLAM MODU LAR HIP SYSTM FDA Start: 10-07-2017 RESTORE ANATOMIC GONZÁLEZ SHELL FDA Start: 10-07-2017 explant full blade FDA Start: 10-07-2017 mabel explant truncated blade FDA Start: 10-07-2017 LFIT 40 FEMORAL HEAD FDA Star t: 10-07-2017 MDM CEMENTLESS LINER FDA Star t: 10-07-2017 ISLAM ADM/ MDM INSERT FDA Start: 10-07-2017 ISLAM GAP PLATE SCREW FDA Start: 10-07-2017 ISLAM GAP PLATE SCREW FDA Start: 10-07-2017 ISLAM GAP PLATE SCREW FDA Start: 10-07-2017 ISLAM GAP PLATE SCREW FDA Start: 10-07-2017 ISLAM GAP PLATE SCREW FDA Start: 10-07-2017 3.3MM DRILL BIT FDA Start: 10-07-2017 ISLAM GAP PLATE SCREW FDA Start: 10-07-2017 ISLAM MODU LAR HIP SYSTM FDA Start: 10-07-2017 RESTORE ANATOMIC GONZÁLEZ SHELL FDA Start: 10-07-2017 explant full blade FDA Start: 10-07-2017 mabel explant truncated blade FDA Start: 10-07-2017 LFIT 40 FEMORAL HEAD FDA Star t: 10-07-2017 MDM CEMENTLESS LINER FDA Star t: 10-07-2017 ISLAM ADM/ MDM INSERT FDA Start: 10-07-2017 ISLAM GAP PLATE SCREW FDA Start: 10-07-2017 ISLAM GAP PLATE SCREW FDA Start: 10-07-2017 ISLAM GAP PLATE SCREW FDA Start: 10-07-2017 ISLAM GAP PLATE SCREW FDA Start: 10-07-2017 ISLAM GAP PLATE SCREW FDA Start: 10-07-2017 3.3MM DRILL BIT FDA Start: 10-07-2017 ISLAM GAP PLATE SCREW FDA Start: 10-07-2017 ISLAM MODU LAR HIP SYSTM FDA Start: 10-07-2017 RESTORE ANATOMIC GONZÁLEZ SHELL FDA Start: 10-07-2017 explant full blade FDA Start: 10-07-2017 mabel explant truncated blade FDA Start: 10-07-2017 LFIT 40 FEMORAL HEAD FDA Star t: 10-07-2017 MDM CEMENTLESS LINER FDA Star t: 10-07-2017 ISLAM ADM/ MDM INSERT FDA Start: 10-07-2017 ISLAM GAP PLATE SCREW FDA Start: 10-07-2017 ISLAM GAP PLATE SCREW FDA Start: 10-07-2017 ISLAM GAP PLATE SCREW FDA Start: 10-07-2017 ISLAM GAP PLATE SCREW FDA Start: 10-07-2017 ISLAM GAP PLATE SCREW FDA Start: 10-07-2017 3.3MM DRILL BIT FDA Start: 10-07-2017 ISLAM GAP PLATE SCREW FDA Start: 10-07-2017 ISLAM MODU LAR HIP SYSTM FDA Start: 10-07-2017 RESTORE ANATOMIC GONZÁLEZ SHELL FDA Start: 10-07-2017 explant full blade FDA Start: 10-07-2017 mabel explant truncated blade FDA Start: 10-07-2017 LFIT 40 FEMORAL HEAD FDA Star t: 10-07-2017 MDM CEMENTLESS LINER FDA Star t: 10-07-2017 ISLAM ADM/ MDM INSERT FDA Start: 10-07-2017 ISLAM GAP PLATE SCREW FDA Start: 10-07-2017 ISLAM GAP PLATE SCREW FDA Start: 10-07-2017 ISLAM GAP PLATE SCREW FDA Start: 10-07-2017 ISLAM GAP PLATE SCREW FDA Start: 10-07-2017 ISLAM GAP PLATE SCREW FDA Start: 10-07-2017 3.3MM DRILL BIT FDA Start: 10-07-2017 ISLAM GAP PLATE SCREW FDA Start: 10-07-2017 ISLAM MODU LAR HIP SYSTM FDA Start: 10-07-2017 RESTORE ANATOMIC GONZÁLEZ SHELL FDA Start: 10-07-2017 explant full blade FDA Start: 10-07-2017 mabel explant truncated blade FDA Start: 10-07-2017 LFIT 40 FEMORAL HEAD FDA Star t: 10-07-2017 MDM CEMENTLESS LINER FDA Star t: 10-07-2017 ISLAM ADM/ MDM INSERT FDA Start: 10-07-2017 ISLAM GAP PLATE SCREW FDA Start: 10-07-2017 ISLAM GAP PLATE SCREW FDA Start: 10-07-2017 ISLAM GAP PLATE SCREW FDA Start: 10-07-2017 ISLAM GAP PLATE SCREW FDA Start: 10-07-2017 ISLAM GAP PLATE SCREW FDA Start: 10-07-2017 Shs-Hy-P-Kind plant - [id number] Start: 08-23-2014 Comment on above: Description: 2.4 MM VA-LCP TWO COLUMN DISTAL RADIUS PLATE TH/3H, RT. Screw Bn 2.4mm 1 8mm Lcp Ss - [id number] Start: 08-23-2014 Screw Bn 2.4mm 2 4mm Lcp Ss - [id number] Start: 08-23-2014 Screw Bn 2.4mm 2 2mm Lcp Ss - [id number] Start: 08-23-2014 Screw Bn 2.4mm 2 0mm Lcp Ss - [id number] Start: 08-23-2014 3.3MM DRILL BIT FDA Start: 10-07-2017 ISLAM GAP PLATE SCREW FDA Start: 10-07-2017 ISLAM MODU LAR HIP SYSTM FDA Start: 10-07-2017 RESTORE ANATOMIC GONZÁLEZ SHELL FDA Start: 10-07-2017 explant full blade FDA Start: 10-07-2017 mabel explant truncated blade FDA Start: 10-07-2017 LFIT 40 FEMORAL HEAD FDA Star t: 10-07-2017 MDM CEMENTLESS LINER FDA Star t: 10-07-2017 ISLAM ADM/ MDM INSERT FDA Start: 10-07-2017 ISLAM GAP PLATE SCREW FDA Start: 10-07-2017 ISLAM GAP PLATE SCREW FDA Start: 10-07-2017 ISLAM GAP PLATE SCREW FDA Start: 10-07-2017 ISLAM GAP PLATE SCREW FDA Start: 10-07-2017 ISLAM GAP PLATE SCREW FDA Start: 10-07-2017 3.3MM DRILL BIT FDA Start: 10-07-2017 ISLAM GAP PLATE SCREW FDA Start: 10-07-2017 ISLAM MODU LAR HIP SYSTM FDA Start: 10-07-2017 RESTORE ANATOMIC GONZÁLEZ SHELL FDA Start: 10-07-2017 explant full blade FDA Start: 10-07-2017 mabel explant truncated blade FDA Start: 10-07-2017 LFIT 40 FEMORAL HEAD FDA Star t: 10-07-2017 MDM CEMENTLESS LINER FDA Star t: 10-07-2017 ISLAM ADM/ MDM INSERT FDA Start: 10-07-2017 ISLAM GAP PLATE SCREW FDA Start: 10-07-2017 ISLAM GAP PLATE SCREW FDA Start: 10-07-2017 ISLAM GAP PLATE SCREW FDA Start: 10-07-2017 ISLAM GAP PLATE SCREW FDA Start: 10-07-2017 ISLAM GAP PLATE SCREW FDA Start: 10-07-2017 3.3MM DRILL BIT FDA Start: 10-07-2017 ISLAM GAP PLATE SCREW FDA Start: 10-07-2017 ISLAM MODU LAR HIP SYSTM FDA Start: 10-07-2017 RESTORE ANATOMIC GONZÁLEZ SHELL FDA Start: 10-07-2017 explant full blade FDA Start: 10-07-2017 mabel explant truncated blade FDA Start: 10-07-2017 LFIT 40 FEMORAL HEAD FDA Star t: 10-07-2017 MDM CEMENTLESS LINER FDA Star t: 10-07-2017 ISLAM ADM/ MDM INSERT FDA Start: 10-07-2017 ISLAM GAP PLATE SCREW FDA Start: 10-07-2017 ISLAM GAP PLATE SCREW FDA Start: 10-07-2017 ISLAM GAP PLATE SCREW FDA Start: 10-07-2017 ISLAM GAP PLATE SCREW FDA Start: 10-07-2017 ISLAM GAP PLATE SCREW FDA Start: 10-07-2017 3.3MM DRILL BIT FDA Start: 10-07-2017 ISLAM GAP PLATE SCREW FDA Start: 10-07-2017 ISLAM MODU LAR HIP SYSTM FDA Start: 10-07-2017 RESTORE ANATOMIC GONZÁLEZ SHELL FDA Start: 10-07-2017 explant full blade FDA Start: 10-07-2017 mabel explant truncated blade FDA Start: 10-07-2017 LFIT 40 FEMORAL HEAD FDA Star t: 10-07-2017 MDM CEMENTLESS LINER FDA Star t: 10-07-2017 ISLAM ADM/ MDM INSERT FDA Start: 10-07-2017 ISLAM GAP PLATE SCREW FDA Start: 10-07-2017 ISLAM GAP PLATE SCREW FDA Start: 10-07-2017 ISLAM GAP PLATE SCREW FDA Start: 10-07-2017 ISLAM GAP PLATE SCREW FDA Start: 10-07-2017 ISLAM GAP PLATE SCREW FDA Start: 10-07-2017 3.3MM DRILL BIT FDA Start: 10-07-2017 ISLAM GAP PLATE SCREW FDA Start: 10-07-2017 ISLAM MODU LAR HIP SYSTM FDA Start: 10-07-2017 RESTORE ANATOMIC GONZÁLEZ SHELL FDA Start: 10-07-2017 explant full blade FDA Start: 10-07-2017 mabel explant truncated blade FDA Start: 10-07-2017 LFIT 40 FEMORAL HEAD FDA Star t: 10-07-2017 MDM CEMENTLESS LINER FDA Star t: 10-07-2017 ISLAM ADM/ MDM INSERT FDA Start: 10-07-2017 ISLAM GAP PLATE SCREW FDA Start: 10-07-2017 ISLAM GAP PLATE SCREW FDA Start: 10-07-2017 ISLAM GAP PLATE SCREW FDA Start: 10-07-2017 ISLAM GAP PLATE SCREW FDA Start: 10-07-2017 ISLAM GAP PLATE SCREW FDA Start: 10-07-2017 3.3MM DRILL BIT FDA Start: 10-07-2017 ISLAM GAP PLATE SCREW FDA Start: 10-07-2017 ISLAM MODU LAR HIP SYSTM FDA Start: 10-07-2017 RESTORE ANATOMIC GONZÁLEZ SHELL FDA Start: 10-07-2017 explant full blade FDA Start: 10-07-2017 mabel explant truncated blade FDA Start: 10-07-2017 LFIT 40 FEMORAL HEAD FDA Star t: 10-07-2017 MDM CEMENTLESS LINER FDA Star t: 10-07-2017 ISLAM ADM/ MDM INSERT FDA Start: 10-07-2017 ISLAM GAP PLATE SCREW FDA Start: 10-07-2017 ISLAM GAP PLATE SCREW FDA Start: 10-07-2017 ISLAM GAP PLATE SCREW FDA Start: 10-07-2017 ISLAM GAP PLATE SCREW FDA Start: 10-07-2017 ISLAM GAP PLATE SCREW FDA Start: 10-07-2017 3.3MM DRILL BIT FDA Start: 10-07-2017 ISLAM GAP PLATE SCREW FDA Start: 10-07-2017 ISLAM MODU LAR HIP SYSTM FDA Start: 10-07-2017 RESTORE ANATOMIC GONZÁLEZ SHELL FDA Start: 10-07-2017 explant full blade FDA Start: 10-07-2017 mabel explant truncated blade FDA Start: 10-07-2017 LFIT 40 FEMORAL HEAD FDA Star t: 10-07-2017 MDM CEMENTLESS LINER FDA Star t: 10-07-2017 ISLAM ADM/ MDM INSERT FDA Start: 10-07-2017 ISLAM GAP PLATE SCREW FDA Start: 10-07-2017 ISLAM GAP PLATE SCREW FDA Start: 10-07-2017 ISLAM GAP PLATE SCREW FDA Start: 10-07-2017 ISLAM GAP PLATE SCREW FDA Start: 10-07-2017 ISLAM GAP PLATE SCREW FDA Start: 10-07-2017 Mental Status Date Assessment Result Facility 03-28-2025 Cognitive function Awake;Alert;A ppropriate;Follow s Commands [facility] Work Phone: 01-24-2025 Cognitive function Awake;Alert;A ppropriate;Follow s Commands [facility] Work Phone: 11-30-2024 Cognitive function Awake;Alert;A ppropriate;Follow s Commands [facility] Work Phone: 10-13-2024 Cognitive function Awake;Alert;A ppropriate;Follow s Commands [facility] Work Phone: 10-04-2024 Cognitive function Voice/Name [facility] Work Phone: 12-18-2023 Cognitive function Voice/Name [facility] Work Phone: 11-06-2023 Cognitive function Awake;Alert;A ppropriate;Follow s Commands [facility] Work Phone: 11-06-2023 Cognitive function Awake;Alert;Appropriat e [facility] Work Phone: 10-15-2023 Cognitive function Awake;Alert;A ppropriate;Follow s Commands [facility] Work Phone: 08-24-2023 Cognitive function Awake;Alert;A ppropriate;Follow s Commands [facility] Work Phone: 04-23-2023 Cognitive function Awake;Alert;A ppropriate;Follow s Commands [facility] Work Phone: 04-14-2023 Cognitive function Voice/Name [facility] Work Phone: 02-20-2023 Cognitive function Voice/Name [facility] Work Phone: 12-26-2022 Cognitive function Voice/Name [facility] Work Phone: 10-24-2022 Cognitive function Awake;Alert;A ppropriate;Follow s Commands [facility] Work Phone: 10-14-2022 Cognitive function Level Of Cons ciousness Awake;Alert;Appropriate;Follow s Commands [facility] Work Phone: 08-19-2022 Cognitive function Voice/Name [facility] Work Phone: 06-24-2022 Cognitive function Voice/Name [facility] Work Phone: 04-29-2022 Cognitive function Voice/Name [facility] Work Phone: 03-21-2022 Cognitive function Awake;Alert;A ppropriate;Follow s Commands [facility] Work Phone: 03-04-2022 Cognitive function Voice/Name [facility] Work Phone: 01-07-2022 Cognitive function Voice/Name [facility] Work Phone: 11-12-2021 Cognitive function Level Of Cons ciousness Awake;Alert;Appropriate;Follow s Commands [facility] Work Phone: 09-20-2021 Cognitive function Voice/Name [facility] Work Phone: 09-17-2021 Cognitive function Voice/Name [facility] Work Phone: Clinical Notes 01-04-2015 to 03-16-2025 Note Date & Type Note Facility 03-16-2025 Progress note Note Date/Time March 16, 2025 9:40am [facility] [address] [place] [address] Progress Note - Wound Care 03/16/25 0928 MR#: [id number] Acct: [id number] Name: WELLINGTON GONZALEZ Rep #:[id number] : 1945 80 From: Merrill machado DPM PCP: Dr. Randa Joseph, DO Status:REG RCR Location: History of Present Illness Date of Service: 03/16/25 Chief Complaint: Left medial ankle wound History of Wound: The patient is seen today as a courtesy visit for Dr. Merrill Burns, the patient's regular Wound Center provider. The patient's medical history is as recently documented below. Patient is a 79-year-old male who presents to the wound care center with recurring left lower extremity medial ankle wound. He has PMHx of recurring left lower extremity ulceration secondary to chronic venous insufficiency, history of DVT, obesity, JOSHUA, iron deficient anemia, delayed wound healing, and asthma. He states that he does have compression stockings and continues to wearthem. He had been following in the wound care center for a deep ulceration to the medial aspect of the left lower extremity overlying the neurovascular bundle. He did go on to heal this ulceration as of 12/31/[address] Mckee for venogram. He has continued wearing compression stockings howeverstates that while in the shower he did notice a scab of the left medial ankle and after showering applied antibiotic ointment and Band-Aid which later then the scab became soft and opened a small wound. He states that he did see his PCP who did obtain cultures and placed him on oral antibiotic. He was then referred to the wound care center for further follow-up. He denies any further trauma to the site. States that the specific site is recurrent with breakdown of skin. Denies N/V/F/chills. No further complaints. Subjective Subjective This is a 80-year-old male who returns to the wound care center for continued follow-up of a chronic venous stasis/insufficiency ulceration at the medial aspect of the left lower extremity. He reports keeping dressing clean, dry, andintact with his 3M compression wrap to the left lower extremity. He did return for dressing change as nurse visit this past Thursday. States wound was smaller but today skin did tear upon removal of the dressing and that did increase the wound size. His swelling appears to be well-controlled with compression wrap. He did undergo updated venous study prior to this procedure with no changes found. He denies constitutional symptoms. Denies further complaints. Objective Data Objective Data Vital Signs: Vital Signs Temp Pulse Resp BP O2 Del Method 96.0 F L 71 16 106/47 L Room Air 03/16/25 08:50 03/16/25 08:50 03/16/25 08:50 03/16/25 08:50 03/14/25 11:06 Oxygen Delivery Method Room Air Physical Exam Const alert, oriented x3 and no apparent distress General Appearance: cooperative HEENT normocephalic Eyes General Eye: normal appearance of both eyes Neck General: normal visual inspection Lymph Lymphatic: no lymphadenopathy noted and no lymphedema noted Resp normal respiratory effort Cardio regular rate and regular rhythm Extremity Extremity Narrative: Left lower extremity: Vascular: DP and PT pulses weakly palpable. Capillary fill time to digits is 5 seconds. Normal temperature gradient. There is absent hair growth to digits noted. Dermatological: There is a full-thickness ulceration noted to the medial aspect of the lower extremity/ankle with mixed fibrogranular layer. Negative Stemmer sign left foot. There is evidence of stasis dermatitis with hyperpigmentation/hemosiderin deposition/staining of skin left lower extremity. There are varicosities noted of the lower extremity with mild lower extremity edema. There is no erythema or rubor of the left lower extremity. Musculoskeletal: Muscle strength 5 of 5 age-appropriate. There is decreased range of motion of the ankle joint dorsiflexion with knee extended without pain or crepitus. Decreased range of motion of the STJ, MTJ, and first MTPJ without pain or crepitus. There is pain to palpation of the left calf today with positive Gómez sign and Homans' sign. Skin no rashes or lesions noted General Skin Exam: venous stasis and dermatitis Neuro moves all extremities Debridement Note Debridement Note Wound debrided: Left medial ankle/lower extremity Laterality: Left Wound Grade/Stage: Cisneros stage I Type of Debridement: Excisional debridement Anesthesia Used: 5% Lidocaine Gel Depth: Down to and including healthy tissue and in the subcutaneous layer Percentage of wound debrided: 100 Instrument Used: 5mm curette Tissue Removed: Fibrous, devitalized subcutaneous, biofilm, slough Severity: Fat Layer Exposed Amount of bleeding with debridement: Mild Bleeding Controlled with: Compression and gauze Patient tolerated procedure: Patient tolerated procedure well Post-Debridement Measurements and Additional Note: Post-Debridement Measurements/Treatment LA NENA - Nurse 1 - General Ulcer Assessment Start: 02/16/25 09:17 Freq: Status: Active Protocol: WC.LOWEXT Activity Type Activity Date Activity User E-sign Co-sign Detail Recorded Client Recorded Date Recorded By Document 02/16/25 09:21 KW [id number] 02/16/25 09:29 KW Document 02/20/25 08:53 KW [id number] 02/20/25 08:56 KW Document 02/23/25 09:23 KW [id number] 02/23/25 09:28 KW Document 02/27/25 11:24 ML [id number] 02/27/25 11:26 ML Document 03/02/25 13:52 RB [id number] 03/02/25 13:54 RB Document 03/06/25 10:58 GM [id number] 03/06/25 11:00 GM Document 03/09/25 08:56 KW [id number] 03/09/25 09:06 KW Document 03/14/25 11:06 KW [id number] 03/14/25 11:15 KW Document 03/16/25 08:50 JF [id number] 03/16/25 08:57 JF 02/16/25 02/20/25 02/23/25 09:21 08:53 09:23 - Today's Visit Information Type of service Initial Visit Follow-up Visit Follow-up Visit (Physician/PROVIDER ENROLLMENT SPECIALIST (Physician/PROVIDER ENROLLMENT SPECIALIST ) ) Arrival Mode Ambulatory Ambulatory Ambulatory Transfer Assistance Patient Identification Verified (Name & Yes Yes Yes ) Patient Requires Transmission-Based Precautions Vital Signs Temperature (97.8 F-99.1 F) 96.9 F L 96.3 F L Temperature Source Temporal Temporal Pulse Rate (60-100) 67 67 60 Pulse Location Monitor Monitor Monitor Respiratory Rate (12-18) 18 18 18 Respiratory rate source Observation Observation Observation Oxygen Delivery Method Room Air Room Air Room Air Blood Pressure (90/60-120/80) 144/58 H 150/78 H 126/66 H Blood Pressure Mean (mm Hg) 86 102 86 Source Monitor Monitor Monitor Position Semi-Fowlers Semi-Fowlers Semi-Fowlers Blood Pressure Location Right Arm Right Forearm Left Arm History Since Last Visit- (Skip if this is Patient's initial visit) Have you changed medications since your No No last visit? Any new allergies or adverse reactions No No Had a fall/change in ADL's that may No No increase risk of falls Signs or symptoms of abuse and/or No No neglect since last visit Have you been in the hospital since your No No last visit? Has dressing in place as prescribed Yes Yes Has compression in place as prescribed Yes Yes Has offloadiing in place as prescribed N/A N/A Experienced any changes in pain level or No No management Left Footwear Regular Shoe Regular Shoe Regular Shoe Right Footwear Regular Shoe Regular Shoe Regular Shoe Pain Scale: 0-10 Numeric Is Patient Pain Free? Yes Yes Yes 02/27/25 03/02/25 03/06/25 11:24 13:52 10:58 - Today's Visit Information Type of service Nurse-only Follow-up Visit Nurse-only Visit (Physician/PROVIDER ENROLLMENT SPECIALIST Visit ) Arrival Mode Ambulatory Ambulatory Ambulatory Transfer Assistance None None None Patient Identification Verified (Name & Yes Yes Yes ) Patient Requires Transmission-Based No No No Precautions Vital Signs Temperature (97.8 F-99.1 F) 98.1 F 96.8 F L 98.0 F Temperature Source Temporal Temporal Temporal Pulse Rate (60-100) 62 63 57 L Pulse Location Monitor Monitor Monitor Respiratory Rate (12-18) 14 18 18 Respiratory rate source Observation Observation Observation Oxygen Delivery Method Room Air Blood Pressure (90/60-120/80) 142/67 H 113/75 120/67 Blood Pressure Mean (mm Hg) 92 87 84 Source Monitor Monitor Monitor Position Sitting Sitting Sitting Blood Pressure Location Right Arm Left Arm Left Arm History Since Last Visit- (Skip if this is Patient's initial visit) Have you changed medications since your No No last visit? Any new allergies or adverse reactions No No Had a fall/change in ADL's that may No No increase risk of falls Signs or symptoms of abuse and/or No No neglect since last visit Have you been in the hospital since your No last visit? Has dressing in place as prescribed Yes Yes Has compression in place as prescribed Yes Yes Has offloadiing in place as prescribed N/A N/A Experienced any changes in pain level or No No management Left Footwear Regular Shoe Right Footwear Regular Shoe Pain Scale: 0-10 Numeric Is Patient Pain Free? Yes Yes Yes 03/09/25 03/14/25 03/16/25 08:56 11:06 08:50 - Today's Visit Information Type of service Follow-up Visit Nurse-only Follow-up Visit (Physician/PROVIDER ENROLLMENT SPECIALIST Visit (Physician/PROVIDER ENROLLMENT SPECIALIST ) ) Arrival Mode Ambulatory Ambulatory Ambulatory Transfer Assistance Patient Identification Verified (Name & Yes Yes Yes ) Patient Requires Transmission-Based No Precautions Vital Signs Temperature (97.8 F-99.1 F) 96.3 F L 96.0 F L Temperature Source Temporal Temporal Temporal Pulse Rate (60-100) 69 71 Pulse Location Monitor Monitor Monitor Respiratory Rate (12-18) 18 16 16 Respiratory rate source Observation Observation Observation Oxygen Delivery Method Room Air Room Air Blood Pressure (90/60-120/80) 131/61 H 106/47 L Blood Pressure Mean (mm Hg) 84 66 Source Monitor Monitor Monitor Position Semi-Fowlers Sitting Semi-Fowlers Blood Pressure Location Right Arm Right Arm Left Arm History Since Last Visit- (Skip if this is Patient's initial visit) Have you changed medications since your No No No last visit? Any new allergies or adverse reactions No No No Had a fall/change in ADL's that may No No No increase risk of falls Signs or symptoms of abuse and/or No No No neglect since last visit Have you been in the hospital since your No No No last visit? Has dressing in place as prescribed Yes Yes Yes Has compression in place as prescribed Yes Yes Yes Has offloadiing in place as prescribed N/A N/A N/A Experienced any changes in pain level or No No No management Left Footwear Regular Shoe Regular Shoe Regular Shoe Right Footwear Regular Shoe Regular Shoe Regular Shoe Pain Scale: 0-10 Numeric Is Patient Pain Free? Yes Yes Yes - Nurse 1 - General Ulcer Measurement Start: 02/16/25 09:17 Freq: Status: Active Protocol: Activity Type Activity Date Activity User E-sign Co-sign Detail Recorded Client Recorded Date Recorded By Document 02/16/25 09:21 KW [id number] 02/16/25 09:29 KW Document 02/23/25 09:23 KW [id number] 02/23/25 09:28 KW Document 03/02/25 13:52 RB [id number] 03/02/25 13:54 RB Document 03/09/25 08:56 KW [id number] 03/09/25 09:06 KW Document 03/16/25 08:50 JF [id number] 03/16/25 08:57 JF 02/16/25 02/23/25 03/02/25 09:21 09:23 13:52 Wound Center Nurse 1 #1 L Med Ankle -Combined with other wound No -Current Size (cm) - Length 1 1 0.1 -Current Size (cm) - Width 0.5 0.7 0.1 -Current Size (cm) - Depth 0.2 0.1 0.1 -Total Square Cm 0.5 0.7 0.01 -Date of Last Picture (Recall this 02/16/25 field) -Photo Taken Yes -Epithelialization -Tunneling No -Undermining/Tunneling No -Circular Undermining No -Exudate Amt Small Small -Exudate Type Serosanguineous Serosanguineous Serosanguineous -Wound Margin Distinct, Distinct, Distinct, Outline Outline Outline Attached Attached Attached -Granulation Amt Large (67-100%) Small (1-33%) Large (67-100%) -Granulation Quality Brea Brea Brea -Slough/Fibrin Yes -Necrosis Amt Medium (34-66%) Large (67-100%) Small (1-33%) -Necrotic Tissue Type Adherent Slough Adherent Slough Adherent Slough -Structure Exposed N/A -Texture (Megan-wound Skin Appearance) Assessed Assessed Assessed -Moisture (Megan-wound Skin Appearance) Assessed Assessed Assessed -Color (Megan-wound Skin Appearance) Assessed Assessed, Hemosiderin Erythema Staining -Temperature (Megan-wound Skin No Abnormality No Abnormality No Abnormality Appearance) (Pt Warm) (Pt Warm) (Pt Warm) -Tenderness on Palpation (Megan-wound No No No Skin Appearance) -Ulcer Cleansing Soap and Water Soap and Water Wound Cleanser -Foul Odor after Cleansing No No No -Anesthetic Used 5% Lidocaine 5% Lidocaine 5% Lidocaine Gel Gel Gel Lower Limb Edema Present Yes Left Calf (cm) 38 35 38 Left Ankle (cm) 23 20.8 23 03/09/25 03/16/25 08:56 08:50 Wound Center Nurse 1 #1 L Med Ankle -Combined with other wound No -Current Size (cm) - Length 2.5 2.8 -Current Size (cm) - Width 0.5 1.0 -Current Size (cm) - Depth 0.1 0.1 -Total Square Cm 1.25 2.80 -Date of Last Picture (Recall this 03/09/25 field) -Photo Taken Yes -Epithelialization Small 1-33% -Tunneling No -Undermining/Tunneling No -Circular Undermining No -Exudate Amt Medium Medium -Exudate Type Serosanguineous Serosanguineous -Wound Margin Distinct, Flat & Intact Outline Attached -Granulation Amt Large (67-100%) Medium (34-66%) -Granulation Quality [place] -Slough/Fibrin Yes -Necrosis Amt Small (1-33%) -Necrotic Tissue Type Adherent Slough -Structure Exposed N/A -Texture (Megan-wound Skin Appearance) Assessed Assessed, Localized Edema -Moisture (Megan-wound Skin Appearance) Assessed Assessed,Dry/ Scaly -Color (Megan-wound Skin Appearance) Assessed, Assessed Erythema, Hemosiderin Staining -Temperature (Megan-wound Skin No Abnormality No Abnormality Appearance) (Pt Warm) (Pt Warm) -Tenderness on Palpation (Megan-wound No No Skin Appearance) -Ulcer Cleansing Soap and Water Soap and Water -Foul Odor after Cleansing No No -Anesthetic Used 5% Lidocaine 5% Lidocaine Gel Gel Lower Limb Edema Present Yes Left Calf (cm) 30.5 34.0 Left Ankle (cm) 20.5 22 WC - Nurse 2 - General Ulcer CM Notes Start: 02/16/25 09:17 Freq: Status: Active Protocol: Activity Type Activity Date Activity User E-sign Co-sign Detail Recorded Client Recorded Date Recorded By Document 02/16/25 09:35 [facility] [id number] 02/16/25 09:42 [facility] Document 02/23/25 09:46 [facility] [id number] 02/23/25 09:48 [facility] Document 03/02/25 14:00 [facility] [id number] 03/02/25 14:07 [facility] Document 03/09/25 09:22 [facility] [id number] 03/09/25 09:25 [facility] Document 03/16/25 09:05 [facility] [id number] 03/16/25 09:11 [facility] 02/16/25 02/23/25 03/02/25 09:35 09:46 14:00 Wound Center Nurse 2 #1 L Med Ankle -Time 09:35 09:46 14:00 -Correct Patient Yes Yes Yes -Correct Side, Site, Position Yes Yes Yes -Correct Procedure Yes Yes Yes -Procedure Performed Yes Yes Yes -Type of Procedure Debridement Debridement Debridement -Clinical Debridement Subcutaneous Subcutaneous Subcutaneous -Tissue Removed Subcutaneous Subcutaneous Subcutaneous -Post Debridement (cm) - Length 0.9 1.1 0.9 -Post Debridement (cm) - Width 0.5 0.7 0.5 -Post Debridement (cm) - Depth 0.1 0.1 0.2 -Total Square (Post) (cm) 0.45 0.77 0.45 -Area of Debridement (cm) - Length 0.9 1.1 0.9 -Area of Debridement (cm) - Width 0.5 0.7 0.5 -Total Square (Area) (cm) 0.45 0.77 0.45 -Tunneling No No No -Undermining/Tunneling No No No -Circular Undermining No No No -Wound/Ulcer Outcome Not Healed Not Healed Not Healed -Ulcer Cleansing Rinsed/ Rinsed/ Rinsed/ Irrigated with Irrigated with Irrigated with Saline Saline Saline -Foul Odor after Cleansing No No No -Bioengineered Tissue No No No -Bleeding Controlled with Pressure Pressure Pressure -Treatment Response Procedure Procedure Procedure Tolerated Well Tolerated Well Tolerated Well -Debridement - Subq, 1st 20sq cm Yes Yes Yes Pain Scale: 0-10 Numeric Is Patient Pain Free? Yes Yes Yes 03/09/25 03/16/25 09:22 09:05 Wound Center Nurse 2 #1 L Med Ankle -Time : 09:06 -Correct Patient Yes Yes -Correct Side, Site, Position Yes Yes -Correct Procedure Yes Yes -Procedure Performed Yes Yes -Type of Procedure Debridement Debridement -Clinical Debridement Subcutaneous Subcutaneous -Tissue Removed Subcutaneous Subcutaneous -Post Debridement (cm) - Length 2.7 2.5 -Post Debridement (cm) - Width 1 1.0 -Post Debridement (cm) - Depth 0.1 0.1 -Total Square (Post) (cm) 2.7 2.50 -Area of Debridement (cm) - Length 2.7 2.5 -Area of Debridement (cm) - Width 1 1 -Total Square (Area) (cm) 2.7 2.5 -Tunneling No No -Undermining/Tunneling No No -Circular Undermining No No -Wound/Ulcer Outcome Not Healed Not Healed -Ulcer Cleansing Rinsed/ Rinsed/ Irrigated with Irrigated with Saline Saline -Foul Odor after Cleansing No No -Bioengineered Tissue No No -Bleeding Controlled with Pressure Pressure -Treatment Response Procedure Procedure Tolerated Well Tolerated Well -Debridement - Subq, 1st 20sq cm Yes Yes Pain Scale: 0-10 Numeric Is Patient Pain Free? Yes Yes WC - Nurse 3 - General Ulcer D/C NN Start: 02/16/25 09:17 Freq: Status: Active Protocol: Activity Type Activity Date Activity User E-sign Co-sign Detail Recorded Client Recorded Date Recorded By Document 02/16/25 11:47 RB [id number] 02/16/25 11:48 RB Document 02/20/25 08:53 KW [id number] 02/20/25 08:56 KW Document 02/23/25 09:57 DL [id number] 02/23/25 09:58 DL Document 02/27/25 11:24 ML [id number] 02/27/25 11:26 ML Document 03/02/25 14:17 DL [id number] 03/02/25 14:18 DL Document 03/06/25 10:58 GM [id number] 03/06/25 11:00 GM Document 03/09/25 09:31 BMF [id number] 03/09/25 09:32 BMF Document 03/14/25 11:06 KW [id number] 03/14/25 11:15 KW Document 03/16/25 09:22 DL [id number] 03/16/25 09:25 DL 02/16/25 02/20/25 02/23/25 11:47 08:53 09:57 Wound Care Center Nurse 3 #1 L Med Ankle -Ulcer Cleansing Rinsed/ Soap and Water Rinsed/ Irrigated with Irrigated with Saline Saline -Foul Odor after Cleansing No -Primary Dressing Applied Promogran Promogran Promogran Abran Matter Abran Matter Abran Matter -Other Dressing -Primary Dressing Covered/Secured with Dry Gauze & Dry Gauze Dry Gauze Roll Gauze, Secured with Tape -Other Covering -Promogran Abran Matter 1 1 1 -Wound Comment(s) LLE -Lotion applied to leg before Yes compression wrap -Multi-Layered Wrap Application Multi-Layer Multi-Layer Multi-Layer Comp - Left ($) Comp - Left ($) Comp - Left ($) -Stockings -Multi-Layer Compression Left (Qty 1 1 1 applied) Treatment Response Procedure Tolerated Well Pain Scale: 0-10 Numeric Is Patient Pain Free? Yes Yes Yes WC - Visit Discharge Discharge Condition Stable Stable Stable Ambulatory Status Ambulatory Ambulatory Ambulatory Transportation Private Auto Private Auto Private Auto Medication Reconcilliation completed & No No provided to patient/care provider Clinical Summary of Care Provided Yes Yes 02/27/25 03/02/25 03/06/25 11:24 14:17 10:58 Wound Care Center Nurse 3 #1 L Med Ankle -Ulcer Cleansing Soap and Water Rinsed/ Soap and Water Irrigated with Saline -Foul Odor after Cleansing No No -Primary Dressing Applied Promogran Promogran Promogran Abran Matter Abran Matter Abran Matter -Other Dressing PT BROUGHT OWN ABRAN -Primary Dressing Covered/Secured with Dry Gauze Dry Gauze Dry Gauze, Secured with Tape -Other Covering -Promogran Abran Matter 0 1 1 -Wound Comment(s) LLE -Lotion applied to leg before No compression wrap -Multi-Layered Wrap Application Multi-Layer Multi-Layer Multi-Layer Comp - Left ($) Comp - Left ($) Comp - Left ($) -Stockings No -Multi-Layer Compression Left (Qty 1 1 1 applied) Treatment Response Procedure Tolerated Well Pain Scale: 0-10 Numeric Is Patient Pain Free? Yes Yes Yes WC - Visit Discharge Discharge Condition Stable Stable Ambulatory Status Ambulatory Ambulatory Transportation [place] Medication Reconcilliation completed & provided to patient/care provider Clinical Summary of Care Provided 03/09/25 03/14/25 03/16/25 09:31 11:06 09:22 Wound Care Center Nurse 3 #1 L Med Ankle -Ulcer Cleansing Rinsed/ Soap and Water Rinsed/ Irrigated with Irrigated with Saline Saline -Foul Odor after Cleansing No No -Primary Dressing Applied Promogran Promogran Abran Matter Abran Matter -Other Dressing pt own abran -Primary Dressing Covered/Secured with Dry Gauze Dry Gauze & Dry Gauze Roll Gauze, Secured with Tape -Other Covering Padding to Ant Ankle -Promogran Abran Matter 1 1 -Wound Comment(s) drsg per alejandro rn LLE -Lotion applied to leg before compression wrap -Multi-Layered Wrap Application Multi-Layer Multi-Layer Multi-Layer Comp - Left ($) Comp - Left ($) Comp - Left ($) -Stockings -Multi-Layer Compression Left (Qty 1 1 1 applied) Treatment Response Procedure Procedure Tolerated Well Tolerated Well Pain Scale: 0-10 Numeric Is Patient Pain Free? Yes Yes Yes WC - Visit Discharge Discharge Condition Stable Stable Stable Ambulatory Status Ambulatory Ambulatory Ambulatory Transportation Ever[place] Medication Reconcilliation completed & No provided to patient/care provider Clinical Summary of Care Provided Yes Assessment/Plan Assessment/Plan (1) Non-pressure chronic ulcer of left calf with fat layer exposed: CODE(S): L97.222 - Non-pressure chronic ulcer of left calf with fat layer exposed (2) Ulcer of extremity due to chronic venous insufficiency: CODE(S): L98.499 - Non-pressure chronic ulcer of skin of other sites with unspecified severity; I87.2 - Venous insufficiency (chronic) (peripheral) (3) Bilateral lower extremity edema: CODE(S): R60.0 - Localized edema PLAN: Plan Patient seen and evaluated Predebridement measurement 2.4 cm x 0.9 cm x 0.1 cm Ulceration site underwent debridement as noted in the clinical panel above. Postdebridement measurement 2.5 cm x 1.0 cm x 0.1 cm. Abran was applied to thewound bed followed by Adaptic and 3M compression wrap to left lower extremity. He was instructed to keep dressings clean, dry, and intact to the left lower extremity. There is slight reduction in size of ulceration versus previous visit but superficial skin tear distal upon dressing removal continues to remain an issue.Adaptic placed today to discourage this incident. Edema remains well-controlledwith current compression therapy. Stat Doppler for 02/16/2025 was negative for DVT. He did undergo repeat venous study 03/14/25 and will undergo venous ablation on April 13. He was again instructed on continued elevation of the lower extremities to aid in edema control. Following healing of ulcerative site he will return to compression stockings however this time we will increase from 20 to 30 mmHg to 30 to 40 mmHg versus application of juxta lite compression. Juxta lite compression wrap was applied for 02/16/2025, awaiting approval. He is following with Dr. Mckee for procedure to aid in his venous insufficiency. Procedure scheduled for 04/13/25. Discussed continued diet to aid in healing with adequate protein intake. Discussed signs and symptoms of infection. Discussed if he notices any increasing redness around the ulcerative site that is moved up the leg, purulentdrainage from the ulcerative site, increasing foul odor from the ulcerative site, or if he develops fever greater than 101 degree accompanied by nausea, vomiting, chills of these are signs of a progressing infection and he should report to the ED for IV antibiotics and further evaluation. He is understandingof this today. The following work up and care recommendations were made: Dressing: Abran to ulcerative bed, Adaptic and 3M compression wrap to the left lower extremity. Will continue compression stocking to right lower extremity Wash: Do not get wet. Use cast bag when showering to maintain compliance. Tissue growth optimization: Abran Offload: 3M compression wrap Vascular: Does have history of positive venous insufficiency/reflux. Will seek vascular assistance for potential procedure. Edema: 3M compression wrap and elevation of the lower extremities Infection: No signs of infection Pain: May take [id number] Tylenol Extra Strength for discomfort Host factors: Chronic venous insufficiency, chronic lower extremity edema, prolonged standing/activity, advanced age complicate healing. I answered all the patient's questions. To return to the wound healing center in 1 week or call sooner if the patient has any questions or concerns. 03/16/25 09 <Electronically signed by Merrill Burns DPM> Cosigner Signature (if applicable): CC: ~ Signed [facility] Work Phone: [phone] Progress note [facility] [address] [place] [address] Progress Note - Wound Care 03/16/2528 MR#: [id number] Acct: [id number] Name: WELLINGTON GONZALEZ Rep #:[id number] : 1945 80 From: Merrill machado DPM PCP: Dr. Randa Joseph, DO Status:REG R Location: History of Present Illness Date of Service: 03/16/25 Chief Complaint: Left medial ankle wound History of Wound: The patient is seen today as a courtesy visit for Dr. Merrill Burns, the patient's regular Wound Center provider. The patient's medical history is as recently documented below. Patient is a 79-year-old male who presents to the wound care center with recurring left lower extremity medial ankle wound. He has PMHx of recurring left lower extremity ulceration secondary to chronic venous insufficiency, history of DVT, obesity, JOSHUA, iron deficient anemia, delayed wound healing,and asthma. He states that he does have compression stockings and continues to wearthem. He had been following in the wound care center for a deep ulceration to the medial aspect of the left lower extremity overlying the neurovascular bundle. He did go on to heal this ulceration as of 12/31/[address] Mckee for venogram. He has continued wearing compression stockings howeverstatesthat while in the shower he did notice a scab of the left medial ankle and after showering applied antibiotic ointment and Band-Aid which later then the scab became soft and opened a small wound. He states that he did see his PCP who did obtain cultures and placed him on oral antibiotic. He was then referred to the wound care center for further follow-up. He denies any further trauma to the site. States that the specific site is recurrent with breakdown of skin. Denies N/V/F/chills. No further complaints. Subjective Subjective This is a 80-year-old male who returns to the wound care center for continued follow-up of a chronic venous stasis/insufficiency ulceration at the medial aspect of the left lower extremity. He reports keeping dressing clean, dry, andintact with his 3M compression wrap to the left lower extremity. He did return for dressing change as nurse visit this past Thursday. States wound was smaller but today skin did tear upon removal of the dressing and that did increase the wound size. His swelling appears to be well-controlled with compression wrap. He did undergo updated venous study prior to this procedure with no changes found. He denies constitutional symptoms. Denies further complaints. Objective Data Objective Data Vital Signs: Vital Signs Temp Pulse Resp BP O2 Del Method 96.0 F L 71 16 106/47 L Room Air 03/16/25 08:50 03/16/25 08:50 03/16/25 08:50 03/16/25 08:50 03/14/25 11:06 Oxygen Delivery Method Room Air Physical Exam Const alert, oriented x3 and no apparent distress General Appearance: cooperative HEENT normocephalic Eyes General Eye: normal appearance of both eyes Neck General: normal visual inspection Lymph Lymphatic: no lymphadenopathy noted and no lymphedema noted Resp normal respiratory effort Cardio regular rate and regular rhythm Extremity Extremity Narrative: Left lower extremity: Vascular: DP and PT pulses weakly palpable. Capillary fill time to digits is 5 seconds. Normal temperature gradient. There is absent hair growth to digits noted. Dermatological: There is a full-thickness ulceration noted to the medial aspect of the lower extremity/ankle with mixed fibrogranular layer. Negative Stemmer sign left foot. There is evidence of stasis dermatitis with hyperpigmentation/hemosiderin deposition/staining of skin left lower extremity. There are varicosities noted of the lower extremity with mild lower extremity edema. There is no erythema or rubor of the left lower extremity. Musculoskeletal: Muscle strength 5 of 5 age-appropriate. There is decreased range of motion of the ankle joint dorsiflexion with knee extended without pain or crepitus. Decreased range of motion of the STJ, MTJ, and first MTPJ without pain or crepitus. There is pain to palpation of the left calf today with positive Gómez sign and Homans' sign. Skin no rashes or lesions noted General Skin Exam: venous stasis and dermatitis Neuro moves all extremities Debridement Note Debridement Note Wound debrided: Left medial ankle/lower extremity Laterality: Left Wound Grade/Stage: Cisneros stage I Type of Debridement: Excisional debridement Anesthesia Used: 5% Lidocaine Gel Depth: Down to and including healthy tissue and in the subcutaneous layer Percentage of wound debrided: 100 Instrument Used: 5mm curette Tissue Removed: Fibrous, devitalized subcutaneous, biofilm, slough Severity: Fat Layer Exposed Amount of bleeding with debridement: Mild Bleeding Controlled with: Compression and gauze Patient tolerated procedure: Patient tolerated procedure well Post-Debridement Measurements and Additional Note: Post-Debridement Measurements/Treatment WC - Nurse 1 - General Ulcer Assessment Start: 02/16/25 09:17 Freq: Status: Active Protocol: LA NENA.LOWEXT Activity Type Activity Date Activity User E-sign Co-sign Detail Recorded Client Recorded Date Recorded By Document 02/16/25 09:21 KW [id number] 02/16/25 09:29 KW Document 02/20/25 08:53 KW [id number] 02/20/25 08:56 KW Document 02/23/25 09:23 KW [id number] 02/23/25 09:28 KW Document 02/27/25 11:24 ML [id number] 02/27/25 11:26 ML Document 03/02/25 13:52 RB [id number] 03/02/25 13:54 RB Document 03/06/25 10:58 GM [id number] 03/06/25 11:00 GM Document 03/09/25 08:56 KW [id number] 03/09/25 09:06 KW Document 03/14/25 11:06 KW [id number] 03/14/25 11:15 KW Document 03/16/25 08:50 JF [id number] 03/16/25 08:57 JF 02/16/25 02/20/25 02/23/25 09:21 08:53 09:23 - Today's Visit Information Type of service Initial Visit Follow-up Visit Follow-up Visit (Physician/PROVIDER ENROLLMENT SPECIALIST (Physician/PROVIDER ENROLLMENT SPECIALIST ) ) Arrival Mode Ambulatory Ambulatory Ambulatory Transfer Assistance Patient Identification Verified (Name & Yes Yes Yes ) Patient Requires Transmission-Based Precautions Vital Signs Temperature (97.8 F-99.1 F) 96.9 F L 96.3 F L Temperature Source Temporal Temporal Pulse Rate (60-100) 67 67 60 Pulse Location Monitor Monitor Monitor Respiratory Rate (12-18) 18 18 18 Respiratory rate source Observation Observation Observation Oxygen Delivery Method Room Air Room Air Room Air Blood Pressure (90/60-120/80) 144/58 H 150/78 H 126/66 H Blood Pressure Mean (mm Hg) 86 102 86 Source Monitor Monitor Monitor Position Semi-Fowlers Semi-Fowlers Semi-Fowlers Blood Pressure Location Right Arm Right Forearm Left Arm History Since Last Visit- (Skip if this is Patient's initial visit) Have you changed medications since your No No last visit? Any new allergies or adverse reactions No No Had a fall/change in ADL's that may No No increase risk of falls Signs or symptoms of abuse and/or No No neglect since last visit Have you been in the hospital since your No No last visit? Has dressing in place as prescribed Yes Yes Has compression in place as prescribed Yes Yes Has offloadiing in place as prescribed N/A N/A Experienced any changes in pain level or No No management Left Footwear Regular Shoe Regular Shoe Regular Shoe Right Footwear Regular Shoe Regular Shoe Regular Shoe Pain Scale: 0-10 Numeric Is Patient Pain Free? Yes Yes Yes 02/27/25 03/02/25 03/06/25 11:24 13:52 10:58 - Today's Visit Information Type of service Nurse-only Follow-up Visit Nurse-only Visit (Physician/PROVIDER ENROLLMENT SPECIALIST Visit ) Arrival Mode Ambulatory Ambulatory Ambulatory Transfer Assistance None None None Patient Identification Verified (Name & Yes Yes Yes ) Patient Requires Transmission-Based No No No Precautions Vital Signs Temperature (97.8 F-99.1 F) 98.1 F 96.8 F L 98.0 F Temperature Source Temporal Temporal Temporal Pulse Rate (60-100) 62 63 57 L Pulse Location Monitor Monitor Monitor Respiratory Rate (12-18) 14 18 18 Respiratory rate source Observation Observation Observation Oxygen Delivery Method Room Air Blood Pressure (90/60-120/80) 142/67 H 113/75 120/67 Blood Pressure Mean (mm Hg) 92 87 84 Source Monitor Monitor Monitor Position Sitting Sitting Sitting Blood Pressure Location Right Arm Left Arm Left Arm History Since Last Visit- (Skip if this is Patient's initial visit) Have you changed medications since your No No last visit? Any new allergies or adverse reactions No No Had a fall/change in ADL's that may No No increase risk of falls Signs or symptoms of abuse and/or No No neglect since last visit Have you been in the hospital since your No last visit? Has dressing in place as prescribed Yes Yes Has compression in place as prescribed Yes Yes Has offloadiing in place as prescribed N/A N/A Experienced any changes in pain level or No No management Left Footwear Regular Shoe Right Footwear Regular Shoe Pain Scale: 0-10 Numeric Is Patient Pain Free? Yes Yes Yes 03/09/25 03/14/25 03/16/25 08:56 11:06 08:50 WC - Today's Visit Information Type of service Follow-up Visit Nurse-only Follow-up Visit (Physician/PROVIDER ENROLLMENT SPECIALIST Visit (Physician/PROVIDER ENROLLMENT SPECIALIST ) ) Arrival Mode Ambulatory Ambulatory Ambulatory Transfer Assistance Patient Identification Verified (Name & Yes Yes Yes ) Patient Requires Transmission-Based No Precautions Vital Signs Temperature (97.8 F-99.1 F) 96.3 F L 96.0 F L Temperature Source Temporal Temporal Temporal Pulse Rate (60-100) 69 71 Pulse Location Monitor Monitor Monitor Respiratory Rate (12-18) 18 16 16 Respiratory rate source Observation Observation Observation Oxygen Delivery Method Room Air Room Air Blood Pressure (90/60-120/80) 131/61 H 106/47 L Blood Pressure Mean (mm Hg) 84 66 Source Monitor Monitor Monitor Position Semi-Fowlers Sitting Semi-Fowlers Blood Pressure Location Right Arm Right Arm Left Arm History Since Last Visit- (Skip if this is Patient's initial visit) Have you changed medications since your No No No last visit? Any new allergies or adverse reactions No No No Had a fall/change in ADL's that may No No No increase risk of falls Signs or symptoms of abuse and/or No No No neglect since last visit Have you been in the hospital since your No No No last visit? Has dressing in place as prescribed Yes Yes Yes Has compression in place as prescribed Yes Yes Yes Has offloadiing in place as prescribed N/A N/A N/A Experienced any changes in pain level or No No No management Left Footwear Regular Shoe Regular Shoe Regular Shoe Right Footwear Regular Shoe Regular Shoe Regular Shoe Pain Scale: 0-10 Numeric Is Patient Pain Free? Yes Yes Yes WC - Nurse 1 - General Ulcer Measurement Start: 02/16/25 09:17 Freq: Status: Active Protocol: Activity Type Activity Date Activity User E-sign Co-sign Detail Recorded Client Recorded Date Recorded By Document 02/16/25 09:21 KW [id number] 02/16/25 09:29 KW Document 02/23/25 09:23 KW [id number] 02/23/25 09:28 KW Document 03/02/25 13:52 RB [id number] 03/02/25 13:54 RB Document 03/09/25 08:56 KW [id number] 03/09/25 09:06 KW Document 03/16/25 08:50 JF [id number] 03/16/25 08:57 JF 02/16/25 02/23/25 03/02/25 09:21 09:23 13:52 Wound Center Nurse 1 #1 L Med Ankle -Combined with other wound No -Current Size (cm) - Length 1 1 0.1 -Current Size (cm) - Width 0.5 0.7 0.1 -Current Size (cm) - Depth 0.2 0.1 0.1 -Total Square Cm 0.5 0.7 0.01 -Date of Last Picture (Recall this 02/16/25 field) -Photo Taken Yes -Epithelialization -Tunneling No -Undermining/Tunneling No -Circular Undermining No -Exudate Amt Small Small -Exudate Type Serosanguineous Serosanguineous Serosanguineous -Wound Margin Distinct, Distinct, Distinct, Outline Outline Outline Attached Attached Attached -Granulation Amt Large (67-100%) Small (1-33%) Large (67-100%) -Granulation Quality [place] Bre[place] -Slough/Fibrin Yes -Necrosis Amt Medium (34-66%) Large (67-100%) Small (1-33%) -Necrotic Tissue Type Adherent Slough Adherent Slough Adherent Slough -Structure Exposed N/A -Texture (Megan-wound Skin Appearance) Assessed Assessed Assessed -Moisture (Megan-wound Skin Appearance) Assessed Assessed Assessed -Color (Megan-wound Skin Appearance) Assessed Assessed, Hemosiderin Erythema Staining -Temperature (Megan-wound Skin No Abnormality No Abnormality No Abnormality Appearance) (Pt Warm) (Pt Warm) (Pt Warm) -Tenderness on Palpation (Megan-wound No No No Skin Appearance) -Ulcer Cleansing Soap and Water Soap and Water Wound Cleanser -Foul Odor after Cleansing No No No -Anesthetic Used 5% Lidocaine 5% Lidocaine 5% Lidocaine Gel Gel Gel Lower Limb Edema Present Yes Left Calf (cm) 38 35 38 Left Ankle (cm) 23 20.8 23 03/09/25 03/16/25 08:56 08:50 Wound Center Nurse 1 #1 L Med Ankle -Combined with other wound No -Current Size (cm) - Length 2.5 2.8 -Current Size (cm) - Width 0.5 1.0 -Current Size (cm) - Depth 0.1 0.1 -Total Square Cm 1.25 2.80 -Date of Last Picture (Recall this 03/09/25 field) -Photo Taken Yes -Epithelialization Small 1-33% -Tunneling No -Undermining/Tunneling No -Circular Undermining No -Exudate Amt Medium Medium -Exudate Type Serosanguineous Serosanguineous -Wound Margin Distinct, Flat & Intact Outline Attached -Granulation Amt Large (67-100%) Medium (34-66%) -Granulation Quality [place] -Slough/Fibrin Yes -Necrosis Amt Small (1-33%) -Necrotic Tissue Type Adherent Slough -Structure Exposed N/A -Texture (Megan-wound Skin Appearance) Assessed Assessed, Localized Edema -Moisture (Megan-wound Skin Appearance) Assessed Assessed,Dry/ Scaly -Color (Megan-wound Skin Appearance) Assessed, Assessed Erythema, Hemosiderin Staining -Temperature (Megan-wound Skin No Abnormality No Abnormality Appearance) (Pt Warm) (Pt Warm) -Tenderness on Palpation (Megan-wound No No Skin Appearance) -Ulcer Cleansing Soap and Water Soap and Water -Foul Odor after Cleansing No No -Anesthetic Used 5% Lidocaine 5% Lidocaine Gel Gel Lower Limb Edema Present Yes Left Calf (cm) 30.5 34.0 Left Ankle (cm) 20.5 22 WC - Nurse 2 - General Ulcer CM Notes Start: 02/16/25 09:17 Freq: Status: Active Protocol: Activity Type Activity Date Activity User E-sign Co-sign Detail Recorded Client Recorded Date Recorded By Document 02/16/25 09:35 [facility] [id number] 02/16/25 09:42 BM Document 02/23/25 09:46 BM [id number] 02/23/25 09:48 BM Document 03/02/25 14:00 BMF [id number] 03/02/25 14:07 BM Document 03/09/25 09:22 BMF [id number] 03/09/25 09:25 BM Document 03/16/25 09:05 BM [id number] 03/16/25 09:11 BMF 02/16/25 02/23/25 03/02/25 09:35 09:46 14:00 Wound Center Nurse 2 #1 L Med Ankle -Time 09: 09:46 14:00 -Correct Patient Yes Yes Yes -Correct Side, Site, Position Yes Yes Yes -Correct Procedure Yes Yes Yes -Procedure Performed Yes Yes Yes -Type of Procedure Debridement Debridement Debridement -Clinical Debridement Subcutaneous Subcutaneous Subcutaneous -Tissue Removed Subcutaneous Subcutaneous Subcutaneous -Post Debridement (cm) - Length 0.9 1.1 0.9 -Post Debridement (cm) - Width 0.5 0.7 0.5 -Post Debridement (cm) - Depth 0.1 0.1 0.2 -Total Square (Post) (cm) 0.45 0.77 0.45 -Area of Debridement (cm) - Length 0.9 1.1 0.9 -Area of Debridement (cm) - Width 0.5 0.7 0.5 -Total Square (Area) (cm) 0.45 0.77 0.45 -Tunneling No No No -Undermining/Tunneling No No No -Circular Undermining No No No -Wound/Ulcer Outcome Not Healed Not Healed Not Healed -Ulcer Cleansing Rinsed/ Rinsed/ Rinsed/ Irrigated with Irrigated with Irrigated with Saline Saline Saline -Foul Odor after Cleansing No No No -Bioengineered Tissue No No No -Bleeding Controlled with Pressure Pressure Pressure -Treatment Response Procedure Procedure Procedure Tolerated Well Tolerated Well Tolerated Well -Debridement - Subq, 1st 20sq cm Yes Yes Yes Pain Scale: 0-10 Numeric Is Patient Pain Free? Yes Yes Yes 03/09/25 03/16/25 09:22 09:05 Wound Center Nurse 2 #1 L Med Ankle -Time 09:06 -Correct Patient Yes Yes -Correct Side, Site, Position Yes Yes -Correct Procedure Yes Yes -Procedure Performed Yes Yes -Type of Procedure Debridement Debridement -Clinical Debridement Subcutaneous Subcutaneous -Tissue Removed Subcutaneous Subcutaneous -Post Debridement (cm) - Length 2.7 2.5 -Post Debridement (cm) - Width 1 1.0 -Post Debridement (cm) - Depth 0.1 0.1 -Total Square (Post) (cm) 2.7 2.50 -Area of Debridement (cm) - Length 2.7 2.5 -Area of Debridement (cm) - Width 1 1 -Total Square (Area) (cm) 2.7 2.5 -Tunneling No No -Undermining/Tunneling No No -Circular Undermining No No -Wound/Ulcer Outcome Not Healed Not Healed -Ulcer Cleansing Rinsed/ Rinsed/ Irrigated with Irrigated with Saline Saline -Foul Odor after Cleansing No No -Bioengineered Tissue No No -Bleeding Controlled with Pressure Pressure -Treatment Response Procedure Procedure Tolerated Well Tolerated Well -Debridement - Subq, 1st 20sq cm Yes Yes Pain Scale: 0-10 Numeric Is Patient Pain Free? Yes Yes - Nurse 3 - General Ulcer D/C NN Start: 02/16/25 09:17 Freq: Status: Active Protocol: Activity Type Activity Date Activity User E-sign Co-sign Detail Recorded Client Recorded Date Recorded By Document 02/16/25 11:47 RB [id number] 02/16/25 11:48 RB Document 02/20/25 08:53 KW [id number] 02/20/25 08:56 KW Document 02/23/25 09:57 DL [id number] 02/23/25 09:58 DL Document 02/27/25 11:24 ML [id number] 02/27/25 11:26 ML Document 03/02/25 14:17 DL [id number] 03/02/25 14:18 DL Document 03/06/25 10:58 GM [id number] 03/06/25 11:00 GM Document 03/09/25 09:31 BMF [id number] 03/09/25 09:32 BMF Document 03/14/25 11:06 KW [id number] 03/14/25 11:15 KW Document 03/16/25 09:22 DL [id number] 03/16/25 09:25 DL 02/16/25 02/20/25 02/23/25 11:47 08:53 09:57 Wound Care Center Nurse 3 #1 L Med Ankle -Ulcer Cleansing Rinsed/ Soap and Water Rinsed/ Irrigated with Irrigated with Saline Saline -Foul Odor after Cleansing No -Primary Dressing Applied Promogran Promogran Promogran Abran Matter Abran Matter Abran Matter -Other Dressing -Primary Dressing Covered/Secured with Dry Gauze & Dry Gauze Dry Gauze Roll Gauze, Secured with Tape -Other Covering -Promogran Abran Matter 1 1 1 -Wound Comment(s) LLE -Lotion applied to leg before Yes compression wrap -Multi-Layered Wrap Application Multi-Layer Multi-Layer Multi-Layer Comp - Left ($) Comp - Left ($) Comp - Left ($) -Stockings -Multi-Layer Compression Left (Qty 1 1 1 applied) Treatment Response Procedure Tolerated Well Pain Scale: 0-10 Numeric Is Patient Pain Free? Yes Yes Yes WC - Visit Discharge Discharge Condition Stable Stable Stable Ambulatory Status Ambulatory Ambulatory Ambulatory Transportation Private Auto Private Auto Private Auto Medication Reconcilliation completed & No No provided to patient/care provider Clinical Summary of Care Provided Yes Yes 02/27/25 03/02/25 03/06/25 11:24 14:17 10:58 Wound Care Center Nurse 3 #1 L Med Ankle -Ulcer Cleansing Soap and Water Rinsed/ Soap and Water Irrigated with Saline -Foul Odor after Cleansing No No -Primary Dressing Applied Promogran Promogran Promogran Abran Matter Abran Matter Abran Matter -Other Dressing PT BROUGHT OWN ABRAN -Primary Dressing Covered/Secured with Dry Gauze Dry Gauze Dry Gauze, Secured with Tape -Other Covering -Promogran Abran Matter 0 1 1 -Wound Comment(s) LLE -Lotion applied to leg before No compression wrap -Multi-Layered Wrap Application Multi-Layer Multi-Layer Multi-Layer Comp - Left ($) Comp - Left ($) Comp - Left ($) -Stockings No -Multi-Layer Compression Left (Qty 1 1 1 applied) Treatment Response Procedure Tolerated Well Pain Scale: 0-10 Numeric Is Patient Pain Free? Yes Yes Yes WC - Visit Discharge Discharge Condition Stable Stable Ambulatory Status Ambulatory Ambulatory Transportation [employer] Medication Reconcilliation completed & provided to patient/care provider Clinical Summary of Care Provided 03/09/25 03/14/25 03/16/25 09:31 11:06 09:22 Wound Care Center Nurse 3 #1 L Med Ankle -Ulcer Cleansing Rinsed/ Soap and Water Rinsed/ Irrigated with Irrigated with Saline Saline -Foul Odor after Cleansing No No -Primary Dressing Applied Promogran Promogran Abran Matter Abran Matter -Other Dressing pt own abran -Primary Dressing Covered/Secured with Dry Gauze Dry Gauze & Dry Gauze Roll Gauze, Secured with Tape -Other Covering Padding to Ant Ankle -Promogran Abran Matter 1 1 -Wound Comment(s) drsg per alejandro rn LLE -Lotion applied to leg before compression wrap -Multi-Layered Wrap Application Multi-Layer Multi-Layer Multi-Layer Comp - Left ($) Comp - Left ($) Comp - Left ($) -Stockings -Multi-Layer Compression Left (Qty 1 1 1 applied) Treatment Response Procedure Procedure Tolerated Well Tolerated Well Pain Scale: 0-10 Numeric Is Patient Pain Free? Yes Yes Yes WC - Visit Discharge Discharge Condition Stable Stable Stable Ambulatory Status Ambulatory Ambulatory Ambulatory Transportation [employer] Auto Medication Reconcilliation completed & No provided to patient/care provider Clinical Summary of Care Provided Yes Assessment/Plan Assessment/Plan (1) Non-pressure chronic ulcer of left calf with fat layer exposed: CODE(S): L97.222 - Non-pressure chronic ulcer of left calf with fat layer exposed (2) Ulcer of extremity due to chronic venous insufficiency: CODE(S): L98.499 - Non-pressure chronic ulcer of skin of other sites with unspecified severity; I87.2 - Venous insufficiency (chronic) (peripheral) (3) Bilateral lower extremity edema: CODE(S): R60.0 - Localized edema PLAN: Plan Patient seen and evaluated Predebridement measurement 2.4 cm x 0.9 cm x 0.1 cm Ulceration site underwent debridement as noted in the clinical panel above. Postdebridement measurement 2.5 cm x 1.0 cm x 0.1 cm. Abran was applied to thewound bed followed by Adaptic and 3M compression wrap to left lower extremity. He was instructed to keep dressings clean, dry, and intact to theleft lower extremity. There is slight reduction in size of ulceration versus previous visit but superficial skin tear distal upon dressing removal continues to remain an issue.Adaptic placed today to discourage this incident. Edema remains well- controlledwith current compression therapy. Stat Doppler for 02/16/2025 was negative for DVT. He did undergo repeat venous study 03/14/25 and willundergo venous ablation on April 13. He was again instructed on continued elevation of the lower extremities to aid in edema control. Following healing of ulcerative site he will return to compression stockings however this time we will increase from 20 to 30 mmHg to 30 to 40 mmHg versus application of juxta lite compression. Juxta lite compression wrap was applied for 02/16/2025, awaiting approval. He is following with Dr. Mckee for procedure to aid in his venous insufficiency. Procedure scheduled for 04/13/25. Discussed continued diet to aid in healing with adequate protein intake. Discussed signs and symptoms of infection. Discussed if he notices any increasing redness around the ulcerative site that is moved up the leg, purulentdrainage from the ulcerative site, increasing foul odor from the ulcerative site, or if he develops fever greater than 101 degree accompanied by nausea, vomiting, chills of these are signs of a progressing infection and he should report to the ED for IV antibiotics and further evaluation. He is understandingof this today. The following work up and care recommendations were made: Dressing: Abran to ulcerative bed, Adaptic and 3M compression wrap to the left lower extremity. Will continue compression stocking to right lower extremity Wash: Do not get wet. Use cast bag when showering to maintain compliance. Tissue growth optimization: Abran Offload: 3M compression wrap Vascular: Does have history of positive venous insufficiency/reflux. Will seek vascular assistance for potential procedure. Edema: 3M compression wrap and elevation of the lower extremities Infection: No signs of infection Pain: May take [id number] Tylenol Extra Strength for discomfort Host factors: Chronic venous insufficiency, chronic lower extremity edema, prolonged standing/activity, advanced age complicate healing. I answered all the patient's questions. To return to the wound healing center in 1 week or call sooner if the patient has any questions or concerns. 03/16/25 0940 Cosigner Signature (if applicable): CC: ~ Signed [facility]05-22-2025 Progress note Author Merrill Burns [facility] Note Date/Time March 09, 2025 9:31a m [facility] [address] [place] [address] Progress Note - Wound Care 03/09/25 0927 MR#: [id number] Acct: [id number] Name: WELLINGTON GONZALEZ Rep #:[id number] : 1945 80 From: Merrill machado DPM PCP: Dr. Randa Joseph, DO Status:REG RCR Location: History of Present Illness Date of Service: 03/09/25 Chief Complaint: Left medial ankle wound History of Wound: Patient is a 79-year-old male who presents to the wound care center with recurring left lower extremity medial ankle wound. He has PMHx of recurring left lower extremity ulceration secondary to chronic venous insufficiency, history of DVT, obesity, JOSHUA, iron deficient anemia, delayed wound healing, and asthma. He states that he does have compression stockings and continues to wear them. He had been following in the wound care center for a deep ulceration to the medial aspect of the left lower extremity overlying theneurovascular bundle. He did go on to heal this ulceration as of 12/31/[address] Mckee for venogram. He has continued wearing compression stockings however states that while in the shower he did notice a scab of the left medial ankle and after showering applied antibiotic ointment and Band-Aid which later then the scab became soft and opened a small wound. He states that he did see his PCP who did obtain cultures and placed him on oral antibiotic. He was then referred to the wound care center for further follow-up. He denies any further trauma to the site. States that the specific site is recurrent withbreakdown of skin. Denies N/V/F/chills. No further complaints. Subjective Subjective This is a 80-year-old male who returns to the wound care center for continued follow-up of a chronic venous stasis/insufficiency ulceration at the medial aspect of the left lower extremity. He reports keeping dressing clean, dry, andintact with his 3M compression wrap to the left lower extremity. He did return for dressing change as nurse visit this past Thursday and did see Dr. Nagel last week for courtesy visit. States that he did believe the wound measured bigger today due to superficial skin tear removing his 3M wrap. His swelling appears to be well-controlled. He denies constitutional symptoms. Denies further complaints. Objective Data Objective Data Vital Signs: Vital Signs Temp Pulse Resp BP O2 Del Method 96.3 F L 69 18 131/61 H Room Air 03/09/25 08:56 03/09/25 08:56 03/09/25 08:56 03/09/25 08:56 03/09/25 08:56 Oxygen Delivery Method Room Air Physical Exam Const alert, oriented x3 and no apparent distress General Appearance: cooperative HEENT normocephalic Eyes General Eye: normal appearance of both eyes Neck General: normal visual inspection Lymph Lymphatic: no lymphadenopathy noted and no lymphedema noted Resp normal respiratory effort Cardio regular rate and regular rhythm Extremity Extremity Narrative: Left lower extremity: Vascular: DP and PT pulses weakly palpable. Capillary fill time to digits is 5 seconds. Normal temperature gradient. There is absent hair growth to digits noted. Dermatological: There is a full-thickness ulceration noted to the medial aspect of the lower extremity/ankle with mixed fibrogranular layer. Negative Stemmer sign left foot. There is evidence of stasis dermatitis with hyperpigmentation/hemosiderin deposition/staining of skin left lower extremity. There are varicosities noted of the lower extremity with mild lower extremity edema. There is no erythema or rubor of the left lower extremity. Musculoskeletal: Muscle strength 5 of 5 age-appropriate. There is decreased range of motion of the ankle joint dorsiflexion with knee extended without pain or crepitus. Decreased range of motion of the STJ, MTJ, and first MTPJ without pain or crepitus. There is pain to palpation of the left calf today with positive Gómez sign and Homans' sign. Skin no rashes or lesions noted General Skin Exam: venous stasis and dermatitis Neuro moves all extremities Debridement Note Debridement Note Wound debrided: Left lower extremity Laterality: Left Wound Grade/Stage: Cisneros stage I Type of Debridement: Excisional debridement Anesthesia Used: 5% Lidocaine Gel Depth: Down to and including healthy tissue and in the subcutaneous layer Percentage of wound debrided: 100 Instrument Used: 5mm curette Tissue Removed: Fibrous, devitalized subcutaneous, biofilm, slough Severity: Fat Layer Exposed Amount of bleeding with debridement: Mild Bleeding Controlled with: Compression and gauze Patient tolerated procedure: Patient tolerated procedure well Post-Debridement Measurements and Additional Note: Post-Debridement Measurements/Treatment - Nurse 1 - General Ulcer Assessment Start: 02/16/25 09:17 Freq: Status: Active Protocol: .LOWEXMyra Activity Type Activity Date Activity User E-sign Co-sign Detail Recorded Client Recorded Date Recorded By Document 02/16/25 09:21 KW [id number] 02/16/25 09:29 KW Document 02/20/25 08:53 KW [id number] 02/20/25 08:56 KW Document 02/23/25 09:23 KW [id number] 02/23/25 09:28 KW Document 02/27/25 11:24 ML [id number] 02/27/25 11:26 ML Document 03/02/25 13:52 RB [id number] 03/02/25 13:54 RB Document 03/06/25 10:58 GM [id number] 03/06/25 11:00 GM Document 03/09/25 08:56 KW [id number] 03/09/25 09:06 KW 02/16/25 02/20/25 02/23/25 09:21 08:53 09:23 - Today's Visit Information Type of service Initial Visit Follow-up Visit Follow-up Visit (Physician/PROVIDER ENROLLMENT SPECIALIST (Physician/PROVIDER ENROLLMENT SPECIALIST ) ) Arrival Mode Ambulatory Ambulatory Ambulatory Transfer Assistance Patient Identification Verified (Name & Yes Yes Yes ) Patient Requires Transmission-Based Precautions Vital Signs Temperature (97.8 F-99.1 F) 96.9 F L 96.3 F L Temperature Source Temporal Temporal Pulse Rate (60-100) 67 67 60 Pulse Location Monitor Monitor Monitor Respiratory Rate (12-18) 18 18 18 Respiratory rate source Observation Observation Observation Oxygen Delivery Method Room Air Room Air Room Air Blood Pressure (90/60-120/80) 144/58 H 150/78 H 126/66 H Blood Pressure Mean (mm Hg) 86 102 86 Source Monitor Monitor Monitor Position Semi-Fowlers Semi-Fowlers Semi-Fowlers Blood Pressure Location Right Arm Right Forearm Left Arm History Since Last Visit- (Skip if this is Patient's initial visit) Have you changed medications since your No No last visit? Any new allergies or adverse reactions No No Had a fall/change in ADL's that may No No increase risk of falls Signs or symptoms of abuse and/or No No neglect since last visit Have you been in the hospital since your No No last visit? Has dressing in place as prescribed Yes Yes Has compression in place as prescribed Yes Yes Has offloadiing in place as prescribed N/A N/A Experienced any changes in pain level or No No management Left Footwear Regular Shoe Regular Shoe Regular Shoe Right Footwear Regular Shoe Regular Shoe Regular Shoe Pain Scale: 0-10 Numeric Is Patient Pain Free? Yes Yes Yes 02/27/25 03/02/25 03/06/25 11:24 13:52 10:58 - Today's Visit Information Type of service Nurse-only Follow-up Visit Nurse-only Visit (Physician/PROVIDER ENROLLMENT SPECIALIST Visit ) Arrival Mode Ambulatory Ambulatory Ambulatory Transfer Assistance None None None Patient Identification Verified (Name & Yes Yes Yes ) Patient Requires Transmission-Based No No No Precautions Vital Signs Temperature (97.8 F-99.1 F) 98.1 F 96.8 F L 98.0 F Temperature Source Temporal Temporal Temporal Pulse Rate (60-100) 62 63 57 L Pulse Location Monitor Monitor Monitor Respiratory Rate (12-18) 14 18 18 Respiratory rate source Observation Observation Observation Oxygen Delivery Method Room Air Blood Pressure (90/60-120/80) 142/67 H 113/75 120/67 Blood Pressure Mean (mm Hg) 92 87 84 Source Monitor Monitor Monitor Position Sitting Sitting Sitting Blood Pressure Location Right Arm Left Arm Left Arm History Since Last Visit- (Skip if this is Patient's initial visit) Have you changed medications since your No No last visit? Any new allergies or adverse reactions No No Had a fall/change in ADL's that may No No increase risk of falls Signs or symptoms of abuse and/or No No neglect since last visit Have you been in the hospital since your No last visit? Has dressing in place as prescribed Yes Yes Has compression in place as prescribed Yes Yes Has offloadiing in place as prescribed N/A N/A Experienced any changes in pain level or No No management Left Footwear Regular Shoe Right Footwear Regular Shoe Pain Scale: 0-10 Numeric Is Patient Pain Free? Yes Yes Yes 03/09/25 08:56 - Today's Visit Information Type of service Follow-up Visit (Physician/PROVIDER ENROLLMENT SPECIALIST ) Arrival Mode Ambulatory Transfer Assistance Patient Identification Verified (Name & Yes ) Patient Requires Transmission-Based Precautions Vital Signs Temperature (97.8 F-99.1 F) 96.3 F L Temperature Source Temporal Pulse Rate (60-100) 69 Pulse Location Monitor Respiratory Rate (12-18) 18 Respiratory rate source Observation Oxygen Delivery Method Room Air Blood Pressure (90/60-120/80) 131/61 H Blood Pressure Mean (mm Hg) 84 Source Monitor Position Semi-Fowlers Blood Pressure Location Right Arm History Since Last Visit- (Skip if this is Patient's initial visit) Have you changed medications since your No last visit? Any new allergies or adverse reactions No Had a fall/change in ADL's that may No increase risk of falls Signs or symptoms of abuse and/or No neglect since last visit Have you been in the hospital since your No last visit? Has dressing in place as prescribed Yes Has compression in place as prescribed Yes Has offloadiing in place as prescribed N/A Experienced any changes in pain level or No management Left Footwear Regular Shoe Right Footwear Regular Shoe Pain Scale: 0-10 Numeric Is Patient Pain Free? Yes WC - Nurse 1 - General Ulcer Measurement Start: 02/16/25 09:17 Freq: Status: Active Protocol: Activity Type Activity Date Activity User E-sign Co-sign Detail Recorded Client Recorded Date Recorded By Document 02/16/25 09:21 KW [id number] 02/16/25 09:29 KW Document 02/23/25 09:23 KW [id number] 02/23/25 09:28 KW Document 03/02/25 13:52 RB [id number] 03/02/25 13:54 RB Document 03/09/25 08:56 KW [id number] 03/09/25 09:06 KW 02/16/25 02/23/25 03/02/25 09:21 09:23 13:52 Wound Center Nurse 1 #1 L Med Ankle -Combined with other wound No -Current Size (cm) - Length 1 1 0.1 -Current Size (cm) - Width 0.5 0.7 0.1 -Current Size (cm) - Depth 0.2 0.1 0.1 -Total Square Cm 0.5 0.7 0.01 -Date of Last Picture (Recall this 02/16/25 field) -Photo Taken Yes -Tunneling No -Undermining/Tunneling No -Circular Undermining No -Exudate Amt Small Small -Exudate Type Serosanguineous Serosanguineous Serosanguineous -Wound Margin Distinct, Distinct, Distinct, Outline Outline Outline Attached Attached Attached -Granulation Amt Large (67-100%) Small (1-33%) Large (67-100%) -Granulation Quality Bre[place] Brea Brea -Slough/Fibrin Yes -Necrosis Amt Medium (34-66%) Large (67-100%) Small (1-33%) -Necrotic Tissue Type Adherent Slough Adherent Slough Adherent Slough -Structure Exposed N/A -Texture (Megan-wound Skin Appearance) Assessed Assessed Assessed -Moisture (Megan-wound Skin Appearance) Assessed Assessed Assessed -Color (Megan-wound Skin Appearance) Assessed Assessed, Hemosiderin Erythema Staining -Temperature (Megan-wound Skin No Abnormality No Abnormality No Abnormality Appearance) (Pt Warm) (Pt Warm) (Pt Warm) -Tenderness on Palpation (Megan-wound No No No Skin Appearance) -Ulcer Cleansing Soap and Water Soap and Water Wound Cleanser -Foul Odor after Cleansing No No No -Anesthetic Used 5% Lidocaine 5% Lidocaine 5% Lidocaine Gel Gel Gel Lower Limb Edema Present Yes Left Calf (cm) 38 35 38 Left Ankle (cm) 23 20.8 23 03/09/25 08:56 Wound Center Nurse 1 #1 L Med Ankle -Combined with other wound -Current Size (cm) - Length 2.5 -Current Size (cm) - Width 0.5 -Current Size (cm) - Depth 0.1 -Total Square Cm 1.25 -Date of Last Picture (Recall this 03/09/25 field) -Photo Taken -Tunneling -Undermining/Tunneling -Circular Undermining -Exudate Amt Medium -Exudate Type Serosanguineous -Wound Margin Distinct, Outline Attached -Granulation Amt Large (67-100%) -Granulation Quality Red -Slough/Fibrin -Necrosis Amt -Necrotic Tissue Type -Structure Exposed -Texture (Megan-wound Skin Appearance) Assessed -Moisture (Megan-wound Skin Appearance) Assessed -Color (Megan-wound Skin Appearance) Assessed, Erythema, Hemosiderin Staining -Temperature (Megan-wound Skin No Abnormality Appearance) (Pt Warm) -Tenderness on Palpation (Megan-wound No Skin Appearance) -Ulcer Cleansing Soap and Water -Foul Odor after Cleansing No -Anesthetic Used 5% Lidocaine Gel Lower Limb Edema Present Left Calf (cm) 30.5 Left Ankle (cm) 20.5 WC - Nurse 2 - General Ulcer CM Notes Start: 02/16/25 09:17 Freq: Status: Active Protocol: Activity Type Activity Date Activity User E-sign Co-sign Detail Recorded Client Recorded Date Recorded By Document 02/16/25 09:35 [facility] [id number] 02/16/25 09:42 BM Document 02/23/25 09:46 BMF [id number] 02/23/25 09:48 BM Document 03/02/25 14:00 BMF [id number] 03/02/25 14:07 BM Document 03/09/25 09:22 BM [id number] 03/09/25 09:25 BMF 02/16/25 02/23/25 03/02/25 09:35 09:46 14:00 Wound Center Nurse 2 #1 L Med Ankle -Time 09:35 09:46 14:00 -Correct Patient Yes Yes Yes -Correct Side, Site, Position Yes Yes Yes -Correct Procedure Yes Yes Yes -Procedure Performed Yes Yes Yes -Type of Procedure Debridement Debridement Debridement -Clinical Debridement Subcutaneous Subcutaneous Subcutaneous -Tissue Removed Subcutaneous Subcutaneous Subcutaneous -Post Debridement (cm) - Length 0.9 1.1 0.9 -Post Debridement (cm) - Width 0.5 0.7 0.5 -Post Debridement (cm) - Depth 0.1 0.1 0.2 -Total Square (Post) (cm) 0.45 0.77 0.45 -Area of Debridement (cm) - Length 0.9 1.1 0.9 -Area of Debridement (cm) - Width 0.5 0.7 0.5 -Total Square (Area) (cm) 0.45 0.77 0.45 -Tunneling No No No -Undermining/Tunneling No No No -Circular Undermining No No No -Wound/Ulcer Outcome Not Healed Not Healed Not Healed -Ulcer Cleansing Rinsed/ Rinsed/ Rinsed/ Irrigated with Irrigated with Irrigated with Saline Saline Saline -Foul Odor after Cleansing No No No -Bioengineered Tissue No No No -Bleeding Controlled with Pressure Pressure Pressure -Treatment Response Procedure Procedure Procedure Tolerated Well Tolerated Well Tolerated Well -Debridement - Subq, 1st 20sq cm Yes Yes Yes Pain Scale: 0-10 Numeric Is Patient Pain Free? Yes Yes Yes 03/09/25 09:22 Wound Center Nurse 2 #1 L Med Ankle -Time 09:22 -Correct Patient Yes -Correct Side, Site, Position Yes -Correct Procedure Yes -Procedure Performed Yes -Type of Procedure Debridement -Clinical Debridement Subcutaneous -Tissue Removed Subcutaneous -Post Debridement (cm) - Length 2.7 -Post Debridement (cm) - Width 1 -Post Debridement (cm) - Depth 0.1 -Total Square (Post) (cm) 2.7 -Area of Debridement (cm) - Length 2.7 -Area of Debridement (cm) - Width 1 -Total Square (Area) (cm) 2.7 -Tunneling No -Undermining/Tunneling No -Circular Undermining No -Wound/Ulcer Outcome Not Healed -Ulcer Cleansing Rinsed/ Irrigated with Saline -Foul Odor after Cleansing No -Bioengineered Tissue No -Bleeding Controlled with Pressure -Treatment Response Procedure Tolerated Well -Debridement - Subq, 1st 20sq cm Yes Pain Scale: 0-10 Numeric Is Patient Pain Free? Yes - Nurse 3 - General Ulcer D/C NN Start: 02/16/25 09:17 Freq: Status: Active Protocol: Activity Type Activity Date Activity User E-sign Co-sign Detail Recorded Client Recorded Date Recorded By Document 02/16/25 11:47 RB [id number] 02/16/25 11:48 RB Document 02/20/25 08:53 KW [id number] 02/20/25 08:56 KW Document 02/23/25 09:57 DL [id number] 02/23/25 09:58 DL Document 02/27/25 11:24 ML [id number] 02/27/25 11:26 ML Document 03/02/25 14:17 DL [id number] 03/02/25 14:18 DL Document 03/06/25 10:58 GM [id number] 03/06/25 11:00 GM 02/16/25 02/20/25 02/23/25 11:47 08:53 09:57 Wound Care Center Nurse 3 #1 L Med Ankle -Ulcer Cleansing Rinsed/ Soap and Water Rinsed/ Irrigated with Irrigated with Saline Saline -Foul Odor after Cleansing No -Primary Dressing Applied Promogran Promogran Promogran Abran Matter Abran Matter Abran Matter -Other Dressing -Primary Dressing Covered/Secured with Dry Gauze & Dry Gauze Dry Gauze Roll Gauze, Secured with Tape -Promogran Abran Matter 1 1 1 LLE -Lotion applied to leg before Yes compression wrap -Multi-Layered Wrap Application Multi-Layer Multi-Layer Multi-Layer Comp - Left ($) Comp - Left ($) Comp - Left ($) -Stockings -Multi-Layer Compression Left (Qty 1 1 1 applied) Treatment Response Procedure Tolerated Well Pain Scale: 0-10 Numeric Is Patient Pain Free? Yes Yes Yes WC - Visit Discharge Discharge Condition Stable Stable Stable Ambulatory Status Ambulatory Ambulatory Ambulatory Transportation Private Auto Private Auto Private Auto Medication Reconcilliation completed & No No provided to patient/care provider Clinical Summary of Care Provided Yes Yes 02/27/25 03/02/25 03/06/25 11:24 14:17 10:58 Wound Care Center Nurse 3 #1 L Med Ankle -Ulcer Cleansing Soap and Water Rinsed/ Soap and Water Irrigated with Saline -Foul Odor after Cleansing No No -Primary Dressing Applied Promogran Promogran Promogran Abran Matter Abran Matter Abran Matter -Other Dressing PT BROUGHT OWN ABRAN -Primary Dressing Covered/Secured with Dry Gauze Dry Gauze Dry Gauze, Secured with Tape -Promogran Abran Matter 0 1 1 LLE -Lotion applied to leg before No compression wrap -Multi-Layered Wrap Application Multi-Layer Multi-Layer Multi-Layer Comp - Left ($) Comp - Left ($) Comp - Left ($) -Stockings No -Multi-Layer Compression Left (Qty 1 1 1 applied) Treatment Response Procedure Tolerated Well Pain Scale: 0-10 Numeric Is Patient Pain Free? Yes Yes Yes WC - Visit Discharge Discharge Condition Stable Stable Ambulatory Status Ambulatory Ambulatory Transportation Private Auto Private Auto Medication Reconcilliation completed & provided to patient/care provider Clinical Summary of Care Provided Assessment/Plan Assessment/Plan (1) Non-pressure chronic ulcer of left calf with fat layer exposed: CODE(S): L97.222 - Non-pressure chronic ulcer of left calf with fat layer exposed (2) Ulcer of extremity due to chronic venous insufficiency: CODE(S): L98.499 - Non-pressure chronic ulcer of skin of other sites with unspecified severity; I87.2 - Venous insufficiency (chronic) (peripheral) (3) Bilateral lower extremity edema: CODE(S): R60.0 - Localized edema PLAN: Plan Patient seen and evaluated Predebridement measurement 2.6 cm x 0.9 cm x 0.1 cm Ulceration site underwent debridement as noted in the clinical panel above. Postdebridement measurement 2.7 cm x 1.0 cm x 0.1 cm. Abran was applied to thewound bed and 3M compression wrap to left lower extremity. He was instructed tokeep dressings clean, dry, and intact to the left lower extremity. There is slight increase in size of ulceration versus previous visit due to superficial skin tear distal to ulceration site. However, edema remains well-controlled. Stat Doppler for 02/16/2025 was negative for DVT. He will have repeat venous studynext Thursday prior to scheduling for venous ablation in March. He was again instructed on continued elevation of the lower extremities to aid in edema control. Following healing of ulcerative site he will return to compression stockings however this time we will increase from 20 to 30 mmHg to 30 to 40 mmHg versus application of juxta lite compression. Juxta lite compression wrap was applied for 02/16/2025, awaiting approval. He is following with Dr. Mckee for procedure to aid in his venous insufficiency. Discussed continued diet to aid in healing with adequate protein intake. Discussed signs and symptoms of infection. Discussed if he notices any increasing redness around the ulcerative site that is moved up the leg, purulentdrainage from the ulcerative site, increasing foul odor from the ulcerative site, or if he develops fever greater than 101 degree accompanied by nausea, vomiting, chills of these are signs of a progressing infection and he should report to the ED for IV antibiotics and further evaluation. He is understandingof this today. The following work up and care recommendations were made: Dressing: Abran to ulcerative bed with 3M compression wrap to the left lower extremity. Will continue compression stocking to right lower extremity Wash: Do not get wet. Use cast bag when showering to maintain compliance. Tissue growth optimization: Abran Offload: 3M compression wrap Vascular: Does have history of positive venous insufficiency/reflux. Will seek vascular assistance for potential procedure. Edema: 3M compression wrap and elevation of the lower extremities Infection: No signs of infection Pain: May take [id number] Tylenol Extra Strength for discomfort Host factors: Chronic venous insufficiency, chronic lower extremity edema, prolonged standing/activity, advanced age complicate healing. I answered all the patient's questions. To return to the wound healing center in 1 week or call sooner if the patient has any questions or concerns. 03/09/25930 <Electronically signed by Merrill Burns DPM> Cosigner Signature (if applicable): CC: ~ Signed [facility] Work Phone: 1(476) 636-793705-22-2025 Progress note [facility] [address] [place] [address] Progress Note - Wound Care 03/09/25926 MR#: [id number] Acct: [id number] Name: WELLINGTON GONZALEZ Rep #:[id number] : 1945 80 From: Merrill machado DPM PCP: Dr. Randa Joseph, DO Status:REG RCR Location: History of Present Illness Date of Service: 03/09/25 Chief Complaint: Left medial ankle wound History of Wound: Patient is a 79-year-old male who presents to the wound care center with recurring left lower extremity medial ankle wound. He has PMHx of recurring left lower extremity ulceration secondary to chronic venous insufficiency, history of DVT, obesity, JOSHUA, iron deficient anemia, delayed wound healing, and asthma. He states that he does have compression stockings and continues to wear them. He had been following in the wound care center for a deep ulceration to the medial aspect of the left lower extremity overlying theneurovascular bundle. He did go on to heal this ulceration as of 12/31/[address] Mckee for venogram. He has continued wearing compression stockings however states that while in the shower he did notice a scab of the left medial ankle and aftershowering applied antibiotic ointment and Band-Aid which later then the scab became soft and openeda small wound. He states that he did see his PCP who did obtain cultures and placed him on oral antibiotic. He was then referred to the wound care center for further follow-up. He denies any further trauma to the site. States that the specific site is recurrent withbreakdown of skin. Denies N/V/F/chills. No further complaints. Subjective Subjective This is a 80-year-old male who returns to the wound care center for continued follow-up of a chronic venous stasis/insufficiency ulceration at the medial aspect of the left lower extremity. He reports keeping dressing clean, dry, andintact with his 3M compression wrap to the left lower extremity. He did return for dressing change as nurse visit this past Thursday and did see Dr. Nagel last week forcourtesy visit. States that he did believe the wound measured bigger today due to superficial skin tear removing his 3M wrap. His swelling appears to be well-controlled. He denies constitutional symptoms. Denies further complaints. Objective Data Objective Data Vital Signs: Vital Signs Temp Pulse Resp BP O2 Del Method 96.3 F L 69 18 131/61 H Room Air 03/09/25 08:56 03/09/25 08:56 03/09/25 08:56 03/09/25 08:56 03/09/25 08:56 Oxygen Delivery Method Room Air Physical Exam Const alert, oriented x3 and no apparent distress General Appearance: cooperative HEENT normocephalic Eyes General Eye: normal appearance of both eyes Neck General: normal visual inspection Lymph Lymphatic: no lymphadenopathy noted and no lymphedema noted Resp normal respiratory effort Cardio regular rate and regular rhythm Extremity Extremity Narrative: Left lower extremity: Vascular: DP and PT pulses weakly palpable. Capillary fill time to digits is 5 seconds. Normal temperature gradient. There is absent hair growth to digits noted. Dermatological: There is a full-thickness ulceration noted to the medial aspect of the lower extremity/ankle with mixed fibrogranular layer. Negative Stemmer sign left foot. There is evidence of stasis dermatitis with hyperpigmentation/hemosiderin deposition/staining of skin left lower extremity. There are varicosities noted of the lower extremity with mild lower extremity edema. There is no erythema or rubor of the left lower extremity. Musculoskeletal: Muscle strength 5 of 5 age-appropriate. There is decreased range of motion of the ankle joint dorsiflexion with knee extended without pain or crepitus. Decreased range of motion of the STJ, MTJ, and first MTPJ without pain or crepitus. There is pain to palpation of the left calf today with positive Gómez sign and Homans' sign. Skin no rashes or lesions noted General Skin Exam: venous stasis and dermatitis Neuro moves all extremities Debridement Note Debridement Note Wound debrided: Left lower extremity Laterality: Left Wound Grade/Stage: Cisneros stage I Type of Debridement: Excisional debridement Anesthesia Used: 5% Lidocaine Gel Depth: Down to and including healthy tissue and in the subcutaneous layer Percentage of wound debrided: 100 Instrument Used: 5mm curette Tissue Removed: Fibrous, devitalized subcutaneous, biofilm, slough Severity: Fat Layer Exposed Amount of bleeding with debridement: Mild Bleeding Controlled with: Compression and gauze Patient tolerated procedure: Patient tolerated procedure well Post-Debridement Measurements and Additional Note: Post-Debridement Measurements/Treatment - Nurse 1 - General Ulcer Assessment Start: 02/16/25 09:17 Freq: Status: Active Protocol: ANAYA Activity Type Activity Date Activity User E-sign Co-sign Detail Recorded Client Recorded Date Recorded By Document 02/16/25 09:21 KW [id number] 02/16/25 09:29 KW Document 02/20/25 08:53 KW [id number] 02/20/25 08:56 KW Document 02/23/25 09:23 KW [id number] 02/23/25 09:28 KW Document 02/27/25 11:24 ML [id number] 02/27/25 11:26 ML Document 03/02/25 13:52 RB [id number] 03/02/25 13:54 RB Document 03/06/25 10:58 GM [id number] 03/06/25 11:00 GM Document 03/09/25 08:56 KW [id number] 03/09/25 09:06 KW 02/16/25 02/20/25 02/23/25 09:21 08:53 09:23 - Today's Visit Information Type of service Initial Visit Follow-up Visit Follow-up Visit (Physician/PROVIDER ENROLLMENT SPECIALIST (Physician/PROVIDER ENROLLMENT SPECIALIST ) ) Arrival Mode Ambulatory Ambulatory Ambulatory Transfer Assistance Patient Identification Verified (Name & Yes Yes Yes ) Patient Requires Transmission-Based Precautions Vital Signs Temperature (97.8 F-99.1 F) 96.9 F L 96.3 F L Temperature Source Temporal Temporal Pulse Rate (60-100) 67 67 60 Pulse Location Monitor Monitor Monitor Respiratory Rate (12-18) 18 18 18 Respiratory rate source Observation Observation Observation Oxygen Delivery Method Room Air Room Air Room Air Blood Pressure (90/60-120/80) 144/58 H 150/78 H 126/66 H Blood Pressure Mean (mm Hg) 86 102 86 Source Monitor Monitor Monitor Position Semi-Fowlers Semi-Fowlers Semi-Fowlers Blood Pressure Location Right Arm Right Forearm Left Arm History Since Last Visit- (Skip if this is Patient's initial visit) Have you changed medications since your No No last visit? Any new allergies or adverse reactions No No Had a fall/change in ADL's that may No No increase risk of falls Signs or symptoms of abuse and/or No No neglect since last visit Have you been in the hospital since your No No last visit? Has dressing in place as prescribed Yes Yes Has compression in place as prescribed Yes Yes Has offloadiing in place as prescribed N/A N/A Experienced any changes in pain level or No No management Left Footwear Regular Shoe Regular Shoe Regular Shoe Right Footwear Regular Shoe Regular Shoe Regular Shoe Pain Scale: 0-10 Numeric Is Patient Pain Free? Yes Yes Yes 02/27/25 03/02/25 03/06/25 11:24 13:52 10:58 WC - Today's Visit Information Type of service Nurse-only Follow-up Visit Nurse-only Visit (Physician/PROVIDER ENROLLMENT SPECIALIST Visit ) Arrival Mode Ambulatory Ambulatory Ambulatory Transfer Assistance None None None Patient Identification Verified (Name & Yes Yes Yes ) Patient Requires Transmission-Based No No No Precautions Vital Signs Temperature (97.8 F-99.1 F) 98.1 F 96.8 F L 98.0 F Temperature Source Temporal Temporal Temporal Pulse Rate (60-100) 62 63 57 L Pulse Location Monitor Monitor Monitor Respiratory Rate (12-18) 14 18 18 Respiratory rate source Observation Observation Observation Oxygen Delivery Method Room Air Blood Pressure (90/60-120/80) 142/67 H 113/75 120/67 Blood Pressure Mean (mm Hg) 92 87 84 Source Monitor Monitor Monitor Position Sitting Sitting Sitting Blood Pressure Location Right Arm Left Arm Left Arm History Since Last Visit- (Skip if this is Patient's initial visit) Have you changed medications since your No No last visit? Any new allergies or adverse reactions No No Had a fall/change in ADL's that may No No increase risk of falls Signs or symptoms of abuse and/or No No neglect since last visit Have you been in the hospital since your No last visit? Has dressing in place as prescribed Yes Yes Has compression in place as prescribed Yes Yes Has offloadiing in place as prescribed N/A N/A Experienced any changes in pain level or No No management Left Footwear Regular Shoe Right Footwear Regular Shoe Pain Scale: 0-10 Numeric Is Patient Pain Free? Yes Yes Yes 03/09/25 08:56 WC - Today's Visit Information Type of service Follow-up Visit (Physician/PROVIDER ENROLLMENT SPECIALIST ) Arrival Mode Ambulatory Transfer Assistance Patient Identification Verified (Name & Yes ) Patient Requires Transmission-Based Precautions Vital Signs Temperature (97.8 F-99.1 F) 96.3 F L Temperature Source Temporal Pulse Rate (60-100) 69 Pulse Location Monitor Respiratory Rate (12-18) 18 Respiratory rate source Observation Oxygen Delivery Method Room Air Blood Pressure (90/60-120/80) 131/61 H Blood Pressure Mean (mm Hg) 84 Source Monitor Position Semi-Fowlers Blood Pressure Location Right Arm History Since Last Visit- (Skip if this is Patient's initial visit) Have you changed medications since your No last visit? Any new allergies or adverse reactions No Had a fall/change in ADL's that may No increase risk of falls Signs or symptoms of abuse and/or No neglect since last visit Have you been in the hospital since your No last visit? Has dressing in place as prescribed Yes Has compression in place as prescribed Yes Has offloadiing in place as prescribed N/A Experienced any changes in pain level or No management Left Footwear Regular Shoe Right Footwear Regular Shoe Pain Scale: 0-10 Numeric Is Patient Pain Free? Yes - Nurse 1 - General Ulcer Measurement Start: 02/16/25 09:17 Freq: Status: Active Protocol: Activity Type Activity Date Activity User E-sign Co-sign Detail Recorded Client Recorded Date Recorded By Document 02/16/25 09:21 KW [id number] 02/16/25 09:29 KW Document 02/23/25 09:23 KW [id number] 02/23/25 09:28 KW Document 03/02/25 13:52 RB [id number] 03/02/25 13:54 RB Document 03/09/25 08:56 KW [id number] 03/09/25 09:06 KW 02/16/25 02/23/25 03/02/25 09:21 09:23 13:52 Wound Center Nurse 1 #1 L Med Ankle -Combined with other wound No -Current Size (cm) - Length 1 1 0.1 -Current Size (cm) - Width 0.5 0.7 0.1 -Current Size (cm) - Depth 0.2 0.1 0.1 -Total Square Cm 0.5 0.7 0.01 -Date of Last Picture (Recall this 02/16/25 field) -Photo Taken Yes -Tunneling No -Undermining/Tunneling No -Circular Undermining No -Exudate Amt Small Small -Exudate Type Serosanguineous Serosanguineous Serosanguineous -Wound Margin Distinct, Distinct, Distinct, Outline Outline Outline Attached Attached Attached -Granulation Amt Large (67-100%) Small (1-33%) Large (67-100%) -Granulation Quality Brea Brea Brea -Slough/Fibrin Yes -Necrosis Amt Medium (34-66%) Large (67-100%) Small (1-33%) -Necrotic Tissue Type Adherent Slough Adherent Slough Adherent Slough -Structure Exposed N/A -Texture (Megan-wound Skin Appearance) Assessed Assessed Assessed -Moisture (Megan-wound Skin Appearance) Assessed Assessed Assessed -Color (Megan-wound Skin Appearance) Assessed Assessed, Hemosiderin Erythema Staining -Temperature (Megan-wound Skin No Abnormality No Abnormality No Abnormality Appearance) (Pt Warm) (Pt Warm) (Pt Warm) -Tenderness on Palpation (Megan-wound No No No Skin Appearance) -Ulcer Cleansing Soap and Water Soap and Water Wound Cleanser -Foul Odor after Cleansing No No No -Anesthetic Used 5% Lidocaine 5% Lidocaine 5% Lidocaine Gel Gel Gel Lower Limb Edema Present Yes Left Calf (cm) 38 35 38 Left Ankle (cm) 23 20.8 23 03/09/25 08:56 Wound Center Nurse 1 #1 L Med Ankle -Combined with other wound -Current Size (cm) - Length 2.5 -Current Size (cm) - Width 0.5 -Current Size (cm) - Depth 0.1 -Total Square Cm 1.25 -Date of Last Picture (Recall this 03/09/25 field) -Photo Taken -Tunneling -Undermining/Tunneling -Circular Undermining -Exudate Amt Medium -Exudate Type Serosanguineous -Wound Margin Distinct, Outline Attached -Granulation Amt Large (67-100%) -Granulation Quality Red -Slough/Fibrin -Necrosis Amt -Necrotic Tissue Type -Structure Exposed -Texture (Megan-wound Skin Appearance) Assessed -Moisture (Megan-wound Skin Appearance) Assessed -Color (Megan-wound Skin Appearance) Assessed, Erythema, Hemosiderin Staining -Temperature (Megan-wound Skin No Abnormality Appearance) (Pt Warm) -Tenderness on Palpation (Megan-wound No Skin Appearance) -Ulcer Cleansing Soap and Water -Foul Odor after Cleansing No -Anesthetic Used 5% Lidocaine Gel Lower Limb Edema Present Left Calf (cm) 30.5 Left Ankle (cm) 20.5 WC - Nurse 2 - General Ulcer CM Notes Start: 02/16/25 09:17 Freq: Status: Active Protocol: Activity Type Activity Date Activity User E-sign Co-sign Detail Recorded Client Recorded Date Recorded By Document 02/16/25 09:35 [facility] [id number] 02/16/25 09:42 BM Document 02/23/25 09:46 BM [id number] 02/23/25 09:48 BM Document 03/02/25 14:00 BMF [id number] 03/02/25 14:07 [facility] Document 03/09/25 09:22 BM [id number] 03/09/25 09:25 BMF 02/16/25 02/23/25 03/02/25 09:35 09:46 14:00 Wound Center Nurse 2 #1 L Med Ankle -Time 09:35 09:46 14:00 -Correct Patient Yes Yes Yes -Correct Side, Site, Position Yes Yes Yes -Correct Procedure Yes Yes Yes -Procedure Performed Yes Yes Yes -Type of Procedure Debridement Debridement Debridement -Clinical Debridement Subcutaneous Subcutaneous Subcutaneous -Tissue Removed Subcutaneous Subcutaneous Subcutaneous -Post Debridement (cm) - Length 0.9 1.1 0.9 -Post Debridement (cm) - Width 0.5 0.7 0.5 -Post Debridement (cm) - Depth 0.1 0.1 0.2 -Total Square (Post) (cm) 0.45 0.77 0.45 -Area of Debridement (cm) - Length 0.9 1.1 0.9 -Area of Debridement (cm) - Width 0.5 0.7 0.5 -Total Square (Area) (cm) 0.45 0.77 0.45 -Tunneling No No No -Undermining/Tunneling No No No -Circular Undermining No No No -Wound/Ulcer Outcome Not Healed Not Healed Not Healed -Ulcer Cleansing Rinsed/ Rinsed/ Rinsed/ Irrigated with Irrigated with Irrigated with Saline Saline Saline -Foul Odor after Cleansing No No No -Bioengineered Tissue No No No -Bleeding Controlled with Pressure Pressure Pressure -Treatment Response Procedure Procedure Procedure Tolerated Well Tolerated Well Tolerated Well -Debridement - Subq, 1st 20sq cm Yes Yes Yes Pain Scale: 0-10 Numeric Is Patient Pain Free? Yes Yes Yes 03/09/25 09:22 Wound Center Nurse 2 #1 L Med Ankle -Time 09:22 -Correct Patient Yes -Correct Side, Site, Position Yes -Correct Procedure Yes -Procedure Performed Yes -Type of Procedure Debridement -Clinical Debridement Subcutaneous -Tissue Removed Subcutaneous -Post Debridement (cm) - Length 2.7 -Post Debridement (cm) - Width 1 -Post Debridement (cm) - Depth 0.1 -Total Square (Post) (cm) 2.7 -Area of Debridement (cm) - Length 2.7 -Area of Debridement (cm) - Width 1 -Total Square (Area) (cm) 2.7 -Tunneling No -Undermining/Tunneling No -Circular Undermining No -Wound/Ulcer Outcome Not Healed -Ulcer Cleansing Rinsed/ Irrigated with Saline -Foul Odor after Cleansing No -Bioengineered Tissue No -Bleeding Controlled with Pressure -Treatment Response Procedure Tolerated Well -Debridement - Subq, 1st 20sq cm Yes Pain Scale: 0-10 Numeric Is Patient Pain Free? Yes - Nurse 3 - General Ulcer D/C NN Start: 02/16/25 09:17 Freq: Status: Active Protocol: Activity Type Activity Date Activity User E-sign Co-sign Detail Recorded Client Recorded Date Recorded By Document 02/16/25 11:47 RB [id number] 02/16/25 11:48 RB Document 02/20/25 08:53 KW [id number] 02/20/25 08:56 KW Document 02/23/25 09:57 DL [id number] 02/23/25 09:58 DL Document 02/27/25 11:24 ML [id number] 02/27/25 11:26 ML Document 03/02/25 14:17 DL [id number] 03/02/25 14:18 DL Document 03/06/25 10:58 GM [id number] 03/06/25 11:00 GM 02/16/25 02/20/25 02/23/25 11:47 08:53 09:57 Wound Care Center Nurse 3 #1 L Med Ankle -Ulcer Cleansing Rinsed/ Soap and Water Rinsed/ Irrigated with Irrigated with Saline Saline -Foul Odor after Cleansing No -Primary Dressing Applied Promogran Promogran Promogran Abran Matter Abran Matter Abran Matter -Other Dressing -Primary Dressing Covered/Secured with Dry Gauze & Dry Gauze Dry Gauze Roll Gauze, Secured with Tape -Promogran Abran Matter 1 1 1 LLE -Lotion applied to leg before Yes compression wrap -Multi-Layered Wrap Application Multi-Layer Multi-Layer Multi-Layer Comp - Left ($) Comp - Left ($) Comp - Left ($) -Stockings -Multi-Layer Compression Left (Qty 1 1 1 applied) Treatment Response Procedure Tolerated Well Pain Scale: 0-10 Numeric Is Patient Pain Free? Yes Yes Yes WC - Visit Discharge Discharge Condition Stable Stable Stable Ambulatory Status Ambulatory Ambulatory Ambulatory Transportation Private [employer] Medication Reconcilliation completed & No No provided to patient/care provider Clinical Summary of Care Provided Yes Yes 02/27/25 03/02/25 03/06/25 11:24 14:17 10:58 Wound Care Center Nurse 3 #1 L Med Ankle -Ulcer Cleansing Soap and Water Rinsed/ Soap and Water Irrigated with Saline -Foul Odor after Cleansing No No -Primary Dressing Applied Promogran Promogran Promogran Abran Matter Abran Matter Abran Matter -Other Dressing PT BROUGHT OWN ABRAN -Primary Dressing Covered/Secured with Dry Gauze Dry Gauze Dry Gauze, Secured with Tape -Promogran Abran Matter 0 1 1 LLE -Lotion applied to leg before No compression wrap -Multi-Layered Wrap Application Multi-Layer Multi-Layer Multi-Layer Comp - Left ($) Comp - Left ($) Comp - Left ($) -Stockings No -Multi-Layer Compression Left (Qty 1 1 1 applied) Treatment Response Procedure Tolerated Well Pain Scale: 0-10 Numeric Is Patient Pain Free? Yes Yes Yes WC - Visit Discharge Discharge Condition Stable Stable Ambulatory Status Ambulatory Ambulatory Transportation Private Auto Private Auto Medication Reconcilliation completed & provided to patient/care provider Clinical Summary of Care Provided Assessment/Plan Assessment/Plan (1) Non-pressure chronic ulcer of left calf with fat layer exposed: CODE(S): L97.222 - Non-pressure chronic ulcer of left calf with fat layer exposed (2) Ulcer of extremity due to chronic venous insufficiency: CODE(S): L98.499 - Non-pressure chronic ulcer of skin of other sites with unspecified severity; I87.2 - Venous insufficiency (chronic) (peripheral) (3) Bilateral lower extremity edema: CODE(S): R60.0 - Localized edema PLAN: Plan Patient seen and evaluated Predebridement measurement 2.6 cm x 0.9 cm x 0.1 cm Ulceration site underwent debridement as noted in the clinical panel above. Postdebridement measurement 2.7 cm x 1.0 cm x 0.1 cm. Abran was applied to thewound bed and 3M compression wrap to left lower extremity. He was instructed tokeep dressings clean, dry, and intact to the left lower extremity. There is slight increase in size of ulceration versus previous visit due to superficial skin tear distal to ulceration site. However, edema remains well-controlled. Stat Doppler for 02/16/2025 was negative for DVT. He will have repeat venous studynext Thursday prior to scheduling for venous ablation in March. He was again instructed on continued elevation of the lower extremities to aid in edema control. Following healing of ulcerative site he will return to compression stockings however this time we will increase from 20 to 30 mmHg to 30 to 40 mmHg versus application of juxta lite compression. Juxta lite compression wrap was applied for 02/16/2025, awaiting approval. He is following with Dr. Mckee for procedure to aid in his venous insufficiency. Discussed continued diet to aid in healing with adequate protein intake. Discussed signs and symptoms of infection. Discussed if he notices any increasing redness around the ulcerative site that is moved up the leg, purulentdrainage from the ulcerative site, increasing foul odor from the ulcerative site, or if he develops fever greater than 101 degree accompanied by nausea, vomiting, chills of these are signs of a progressing infection and he should report to the ED for IV antibiotics and further evaluation. He is understandingof this today. The following work up and care recommendations were made: Dressing: Abran to ulcerative bed with 3M compression wrap to the left lower extremity. Will continue compression stocking to right lower extremity Wash: Do not get wet. Use cast bag when showering to maintain compliance. Tissue growth optimization: Abran Offload: 3M compression wrap Vascular: Does have history of positive venous insufficiency/reflux. Will seek vascular assistance for potential procedure. Edema: 3M compression wrap and elevation of the lower extremities Infection: No signs of infection Pain: May take [id number] Tylenol Extra Strength for discomfort Host factors: Chronic venous insufficiency, chronic lower extremity edema, prolonged standing/activity, advanced age complicate healing. I answered all the patient's questions. To return to the wound healing center in 1 week or call sooner if the patient has any questions or concerns. 03/09/25 0931 Cosigner Signature (if applicable): CC: ~ Signed [facility]05-17-2025 History and physical note Author Jose L Nagel [facility] Note Date/Time March 04, 2025 7:19p m [facility] [address] [place] [address] H&P Exam - Wound Care 03/04/25 1851 MR#: [id number] Acct: [id number] Name: WELLINGTON GONZALEZ Rep #:[id number] : 1945 80 From: Jose L Fernando PCP: Dr. Randa Joseph, DO Status:PRE CLI Location: [facility] History of Present Illness Date of Service: 03/02/25 Chief Complaint: Left medial ankle wound History of Wound: The patient is seen today as a courtesy visit for Dr. Merrill Burns, the patient's regular Wound Center provider. The patient's medical history is as recently documented below. Patient is a 79-year-old male who presents to the wound care center with recurring left lower extremity medial ankle wound. He has PMHx of recurring left lower extremity ulceration secondary to chronic venous insufficiency, history of DVT, obesity, JOSHUA, iron deficient anemia, delayed wound healing, and asthma. He states that he does have compression stockings and continues to wearthem. He had been following in the wound care center for a deep ulceration to the medial aspect of the left lower extremity overlying the neurovascular bundle. He did go on to heal this ulceration as of 12/31/[address] Mckee for venogram. He has continued wearing compression stockings howeverstates that while in the shower he did notice a scab of the left medial ankle and after showering applied antibiotic ointment and Band-Aid which later then the scab became soft and opened a small wound. He states that he did see his PCP who did obtain cultures and placed him on oral antibiotic. He was then referred to the wound care center for further follow-up. He denies any further trauma to the site. States that the specific site is recurrent with breakdown of skin. Denies N/V/F/chills. No further complaints. 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 Venous stasis ulcer JOSHUA (obstructive sleep apnea) History of back problems Fatigue Weight loss Lab test positive for detection of COVID-19 virus (~04/2020) Left femoral shaft fracture Osteopenia 2012 femur fracture [facility] DVT (deep venous thrombosis) Restless leg syndrome Iron deficiency anemia GERD (gastroesophageal reflux disease) Celiac disease Asthma Home Medications ?Medication ?Instructions ?Recorded ?Last Taken ?Type pantoprazole 40 mg tablet,delayed 40 mg PO QHS gerd 07/15/17 History release tamsulosin 0.4 mg capsule 0.4 mg PO QHS Enlarged prost ate 07/12/17 01/06/24 History ergocalciferol (vitamin D2) 1,250 50,000 unit PO WE Unknown History mcg (50,000 unit) capsule benralizumab 30 mg/mL subcutaneous 30 mg subcut Q4W #1 mL 12/28/20 Unknown Rx syringe (Fasenra) levothyroxine 50 mcg tablet 100 mcg PO DAILY 03/21/22 01/06/24 History fluticasone propionate 50 2 spray NASAL BID PRN Conges tion 03/25/22 Unknown Rx mcg/actuation nasal #16 grams spray,suspension pramipexole 1.5 mg tablet 1.5 mg PO DAILY 11/25/23 Unk nown History finasteride 5 mg tablet 5 mg PO DAILY 01/05/24 Unkno wn History bimatoprost 0.03 % eye drops 1 drp ophthalmic (eye) QD AY 10/04/24 Unknown History denosumab 60 mg/mL subcutaneous 60 mg subcut [id number] 10/04/24 Unknown History syringe (Prolia) diclofenac potassium 50 mg tablet 50 mg PO TID PRN brynn n 10/04/24 Unknown History fluticasone 232 mcg-salmeterol 14 1 inh inhalation BID #1 ea 10/04/24 Unknown Rx mcg/actuation breath activated powdr ferrous gluconate 324 mg (37.5 mg 324 mg PO BID #60 ta bs 12/07/24 Unknown Rx iron) tablet Allergy/AdvReac Type Severity Reaction Status Date / Time gluten AdvReac Other Verified 03/01/25 09:40 Family History Father prostate cancer Surgical History History of colonoscopy (~09/24/20) History of hernia repair History of spinal surgery (~2017) History of repair of hip fracture History of cholecystectomy colonoscopy Social History Smoking Status: Former smoker alcohol intake: never substance use type: does not use Physical Exam Const alert, oriented x3 and no apparent distress General Appearance: cooperative, comfortable and well developed Orientation / Consciousness: awake, oriented to person, oriented to place and oriented to time Exam Limitations: no limitations HEENT normocephalic and head/scalp atraumatic Head and Scalp: normal to inspection, normocephalic and atraumatic Face and Sinus: normal facial exam Nose: external nose normal External Ear: external ears normal Eyes General Eye: normal appearance of both eyes Resp normal respiratory effort, normal air movement, no retractions and no use of accessory muscles Effort and Inspection: able to speak in complete sentences Skin General Skin Exam: venous stasis and dermatitis Wound Narrative: A venous stasis ulceration is noted near the patient's left medial malleolus. It is full-thickness in nature. There is a moderate amount of bioburden and nonviable tissue. Dimensions are documented elsewhere. There is no sign of infection or cellulitis. Hyperpigmentation, hemosiderin staining, and lipodermatosclerosis are noted in the left gaiter area. Ridley phlebectatica isnoted on the left medial foot. Scattered varicosities are noted in the left lower extremity. Onychomycosis is noted involving the toenails of the left foot. Slight swelling is noted in the patient's left lower extremity. Neuro oriented x3, CN's II-XII intact bilaterally, moves all extremities and no focal motor deficits Sensorium / Orientation: awake, alert, oriented to person, oriented to place andoriented to time Debridement Note Debridement Note Wound debrided: Left medial ankle ulceration Laterality: Left Type of Debridement: Excisional debridement Anesthesia Used: 5% Lidocaine Gel Depth: Down to and including healthy tissue and in the subcutaneous layer Percentage of wound debrided: 100 Instrument Used: 3mm curette Tissue Removed: Devitalized tissue and bioburden Severity: Fat Layer Exposed Amount of bleeding with debridement: Mild Bleeding Controlled with: Compression and gauze Patient tolerated procedure: Patient tolerated procedure well Post-Debridement Measurements and Additional Note: Post-Debridement Measurements/Treatment - Nurse 1 - General Ulcer Assessment Start: 02/16/25 09:17 Freq: Status: Active Protocol: LA NENA.JESUS Activity Type Activity Date Activity User E-sign Co-sign Detail Recorded Client Recorded Date Recorded By Document 02/16/25 09:21 KW [id number] 02/16/25 09:29 KW Document 02/20/25 08:53 KW [id number] 02/20/25 08:56 KW Document 02/23/25 09:23 KW [id number] 02/23/25 09:28 KW 02/16/25 02/20/25 02/23/25 09:21 08:53 09:23 - Today's Visit Information Type of service Initial Visit Follow-up Visit Follow-up Visit (Physician/PROVIDER ENROLLMENT SPECIALIST (Physician/PROVIDER ENROLLMENT SPECIALIST ) ) Arrival Mode Ambulatory Ambulatory Ambulatory Patient Identification Verified (Name & Yes Yes Yes ) Vital Signs Temperature (97.8 F-99.1 F) 96.9 F L 96.3 F L Temperature Source Temporal Temporal Pulse Rate (60-100) 67 67 60 Pulse Location Monitor Monitor Monitor Respiratory Rate (12-18) 18 18 18 Respiratory rate source Observation Observation Observation Oxygen Delivery Method Room Air Room Air Room Air Blood Pressure (90/60-120/80) 144/58 H 150/78 H 126/66 H Blood Pressure Mean (mm Hg) 86 102 86 Source Monitor Monitor Monitor Position Semi-Fowlers Semi-Fowlers Semi-Fowlers Blood Pressure Location Right Arm Right Forearm Left Arm History Since Last Visit- (Skip if this is Patient's initial visit) Have you changed medications since your No No last visit? Any new allergies or adverse reactions No No Had a fall/change in ADL's that may No No increase risk of falls Signs or symptoms of abuse and/or No No neglect since last visit Have you been in the hospital since your No No last visit? Has dressing in place as prescribed Yes Yes Has compression in place as prescribed Yes Yes Has offloadiing in place as prescribed N/A N/A Experienced any changes in pain level or No No management Left Footwear Regular Shoe Regular Shoe Regular Shoe Right Footwear Regular Shoe Regular Shoe Regular Shoe Pain Scale: 0-10 Numeric Is Patient Pain Free? Yes Yes Yes - Nurse 1 - General Ulcer Measurement Start: 02/16/25 09:17 Freq: Status: Active Protocol: Activity Type Activity Date Activity User E-sign Co-sign Detail Recorded Client Recorded Date Recorded By Document 02/16/25 09:21 KW [id number] 02/16/25 09:29 KW Document 02/23/25 09:23 KW [id number] 02/23/25 09:28 KW 02/16/25 02/23/25 09:21 09:23 Wound Center Nurse 1 #1 L Med Ankle -Current Size (cm) - Length 1 1 -Current Size (cm) - Width 0.5 0.7 -Current Size (cm) - Depth 0.2 0.1 -Total Square Cm 0.5 0.7 -Date of Last Picture (Recall this 02/16/25 field) -Exudate Amt Small -Exudate Type Serosanguineous Serosanguineous -Wound Margin Distinct, Distinct, Outline Outline Attached Attached -Granulation Amt Large (67-100%) Small (1-33%) -Granulation Quality [place] -Necrosis Amt Medium (34-66%) Large (67-100%) -Necrotic Tissue Type Adherent Slough Adherent Slough -Texture (Megan-wound Skin Appearance) Assessed Assessed -Moisture (Megan-wound Skin Appearance) Assessed Assessed -Color (Megan-wound Skin Appearance) Assessed Assessed, Erythema -Temperature (Megan-wound Skin No Abnormality No Abnormality Appearance) (Pt Warm) (Pt Warm) -Tenderness on Palpation (Megan-wound No No Skin Appearance) -Ulcer Cleansing Soap and Water Soap and Water -Foul Odor after Cleansing No No -Anesthetic Used 5% Lidocaine 5% Lidocaine Gel Gel Left Calf (cm) 38 35 Left Ankle (cm) 23 20.8 WC - Nurse 2 - General Ulcer CM Notes Start: 02/16/25 09:17 Freq: Status: Active Protocol: Activity Type Activity Date Activity User E-sign Co-sign Detail Recorded Client Recorded Date Recorded By Document 02/16/25 09:35 [facility] [id number] 02/16/25 09:42 [facility] Document 02/23/25 09:46 [facility] [id number] 02/23/25 09:48 [facility] 02/16/25 02/23/25 09:35 09:46 Wound Center Nurse 2 #1 L Med Ankle -Time 09:35 09:46 -Correct Patient Yes Yes -Correct Side, Site, Position Yes Yes -Correct Procedure Yes Yes -Procedure Performed Yes Yes -Type of Procedure Debridement Debridement -Clinical Debridement Subcutaneous Subcutaneous -Tissue Removed Subcutaneous Subcutaneous -Post Debridement (cm) - Length 0.9 1.1 -Post Debridement (cm) - Width 0.5 0.7 -Post Debridement (cm) - Depth 0.1 0.1 -Total Square (Post) (cm) 0.45 0.77 -Area of Debridement (cm) - Length 0.9 1.1 -Area of Debridement (cm) - Width 0.5 0.7 -Total Square (Area) (cm) 0.45 0.77 -Tunneling No No -Undermining/Tunneling No No -Circular Undermining No No -Wound/Ulcer Outcome Not Healed Not Healed -Ulcer Cleansing Rinsed/ Rinsed/ Irrigated with Irrigated with Saline Saline -Foul Odor after Cleansing No No -Bioengineered Tissue No No -Bleeding Controlled with Pressure Pressure -Treatment Response Procedure Procedure Tolerated Well Tolerated Well -Debridement - Subq, 1st 20sq cm Yes Yes Pain Scale: 0-10 Numeric Is Patient Pain Free? Yes Yes WC - Nurse 3 - General Ulcer D/C NN Start: 02/16/25 09:17 Freq: Status: Active Protocol: Activity Type Activity Date Activity User E-sign Co-sign Detail Recorded Client Recorded Date Recorded By Document 02/16/25 11:47 RB [id number] 02/16/25 11:48 RB Document 02/20/25 08:53 KW [id number] 02/20/25 08:56 KW Document 02/23/25 09:57 DL [id number] 02/23/25 09:58 DL 02/16/25 02/20/25 02/23/25 11:47 08:53 09:57 Wound Care Center Nurse 3 #1 L Med Ankle -Ulcer Cleansing Rinsed/ Soap and Water Rinsed/ Irrigated with Irrigated with Saline Saline -Foul Odor after Cleansing No -Primary Dressing Applied Promogran Promogran Promogran Abran Matter Abran Matter Abran Matter -Primary Dressing Covered/Secured with Dry Gauze & Dry Gauze Dry Gauze Roll Gauze, Secured with Tape -Promogran Abran Matter 1 1 1 LLE -Lotion applied to leg before Yes compression wrap -Multi-Layered Wrap Application Multi-Layer Multi-Layer Multi-Layer Comp - Left ($) Comp - Left ($) Comp - Left ($) -Multi-Layer Compression Left (Qty 1 1 1 applied) Treatment Response Procedure Tolerated Well Pain Scale: 0-10 Numeric Is Patient Pain Free? 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: CODE(S): L97.302 - Non-pressure chronic ulcer of unspecified ankle with fat layer exposed QUALIFIERS: Laterality: left Qualified Code(s): L97.322 - Non-pressure chronic ulcer of left ankle with fat layer exposed (2) 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: CODE(S): I83.003 - Varicose veins of unspecified lower extremity with ulcer of ankle; L97.302 - Non-pressure chronic ulcer of unspecified ankle with fat layer exposed QUALIFIERS: Varicose vein presence: with varicose veins Laterality: left Qualified Code(s): I83.023 - Varicose veins of left lower extremity with ulcer of ankle; L97.322 - Non-pressure chronic ulcer of left ankle with fat layer exposed (3) Ulcer of extremity due to chronic venous insufficiency: CODE(S): L98.499 - Non-pressure chronic ulcer of skin of other sites with unspecified severity; I87.2 - Venous insufficiency (chronic) (peripheral) (4) Bilateral lower extremity edema: CODE(S): R60.0 - Localized edema (5) Asthma: CODE(S): J45.909 - Unspecified asthma, uncomplicated QUALIFIERS: Asthma severity: severe Asthma persistence: persistent Asthma complication type: with acute exacerbation Qualified Code(s): J45.51 - Severe persistent asthma with (acute) exacerbation (6) GERD (gastroesophageal reflux disease): CODE(S): K21.9 - Gastro-esophageal reflux disease without esophagitis QUALIFIERS: Esophagitis presence: esophagitis presence not specified Qualified Code(s): K21.9 - Gastro-esophageal reflux disease without esophagitis (7) JOSHUA (obstructive sleep apnea): CODE(S): G47.33 - Obstructive sleep apnea (adult) (pediatric) (8) History of hernia repair: CODE(S): Z98.890 - Other specified postprocedural states; Z87.19 - Personal history of other diseases of the digestive system (9) History of spinal surgery: CODE(S): Z98.890 - Other specified postprocedural states (10) History of repair of hip fracture: CODE(S): Z98.890 - Other specified postprocedural states (11) History of cholecystectomy: CODE(S): Z90.49 - Acquired absence of other specified parts of digestive tract PLAN: Plan This is a 80-year-old male with a history of chronic venous insufficiency and associated manifestations. He is currently being treated for a venous stasis ulceration at the site of the left medial ankle. He has a history of severe deep vein thrombosis in the left lower extremity approximately 20 years ago. 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 A lengthy discussion has been undertaken with the patient as to the appropriate means of long-term care. He has been encouraged to continue sleeping on a flat mattress at night. He has been advised to elevate his lower extremities during daytime hours as well, as much as possible elevation is to be to heart level, or higher. Ambulation has been encouraged. Prolonged idle sitting has been discouraged. A venous duplex examination approximately 1 year ago revealed incompetence of the left great saphenous vein below the knee, incompetence of the left small saphenous vein, and incompetence of the accessory saphenous vein in the left midcalf. The patient has recently been evaluated by the Vascular Surgery service, and consideration is being given to a venous ablation procedure in the future. A repeat of his venous duplex examination is scheduled for the near future. At this time, we are to continue the use of Abran applied topically to the venous stasis ulceration near the left medial ankle. Compression is to be applied by means of a 3M multilayer compression wrap. The compression and Abran are to bechanged twice weekly. Patient is to return in 1 week for reevaluation by his regular Wound Center provider, Dr. Merrill Burns. Total time: 45 minutes 03/04/251918 <Electronically signed by Jose L Nagel MD> Cosigner Signature (if applicable): CC: ~ Signed [facility] Work Phone: [phone]) 688-406405-17-2025 History and physical note [facility] [address] [place] [address] H&P Exam - Wound Care 03/04/25 1851 MR#: [id number] Acct: [id number] Name: WELLINGTON GONZALEZ Rep #:[id number] : 1945 80 From: Jose L Fernando PCP: Dr. Randa Joseph, DO Status:PRE CLI Location: [facility] History of Present Illness Date of Service: 03/02/25 Chief Complaint: Left medial ankle wound History of Wound: The patient is seen today as a courtesy visit for Dr. Merrill Burns, the patient's regular Wound Center provider. The patient's medical history is as recently documented below. Patient is a 79-year-old male who presents to the wound care center with recurring left lower extremity medial ankle wound. He has PMHx of recurring left lower extremity ulceration secondary to chronic venous insufficiency, history of DVT, obesity, JOSHUA, iron deficient anemia, delayed wound healing,and asthma. He states that he does have compression stockings and continues to wearthem. He had been following in the wound care center for a deep ulceration to the medial aspect of the left lower extremity overlying the neurovascular bundle. He did go on to heal this ulceration as of 12/31/[address] Mckee for venogram. He has continued wearing compression stockings howeverstatesthat while in the shower he did notice a scab of the left medial ankle and after showering applied antibiotic ointment and Band-Aid which later then the scab became soft and opened a small wound. He states that he did see his PCP who did obtain cultures and placed him on oral antibiotic. He was then referred to the wound care center for further follow-up. He denies any further trauma to the site. States that the specific site is recurrent with breakdown of skin. Denies N/V/F/chills. No further complaints. 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 Venous stasis ulcer JOSHUA (obstructive sleep apnea) History of back problems Fatigue Weight loss Lab test positive for detection of COVID-19 virus (~04/2020) Left femoral shaft fracture Osteopenia 2012 femur fracture [facility] DVT (deep venous thrombosis) Restless leg syndrome Iron deficiency anemia GERD (gastroesophageal reflux disease) Celiac disease Asthma Home Medications ?Medication ?Instructions ?Recorded ?Last Taken ?Type pantoprazole 40 mg tablet,delayed 40 mg PO QHS gerd 07/15/17 History release tamsulosin 0.4 mg capsule 0.4 mg PO QHS Enlarged prost ate 07/12/17 01/06/24 History ergocalciferol (vitamin D2) 1,250 50,000 unit PO WE Unknown History mcg (50,000 unit) capsule benralizumab 30 mg/mL subcutaneous 30 mg subcut Q4W #1 mL 12/28/20 Unknown Rx syringe (Fasenra) levothyroxine 50 mcg tablet 100 mcg PO DAILY 03/21/22 01/06/24 History fluticasone propionate 50 2 spray NASAL BID PRN Conges tion 03/25/22 Unknown Rx mcg/actuation nasal #16 grams spray,suspension pramipexole 1.5 mg tablet 1.5 mg PO DAILY 11/25/23 Unk nown History finasteride 5 mg tablet 5 mg PO DAILY 01/05/24 Unkno wn History bimatoprost 0.03 % eye drops 1 drp ophthalmic (eye) QD AY 10/04/24 Unknown History denosumab 60 mg/mL subcutaneous 60 mg subcut [id number] 10/04/24 Unknown History syringe (Prolia) diclofenac potassium 50 mg tablet 50 mg PO TID PRN brynn n 10/04/24 Unknown History fluticasone 232 mcg-salmeterol 14 1 inh inhalation BID #1 ea 10/04/24 Unknown Rx mcg/actuation breath activated powdr ferrous gluconate 324 mg (37.5 mg 324 mg PO BID #60 ta bs 12/07/24 Unknown Rx iron) tablet Allergy/AdvReac Type Severity Reaction Status Date / Time gluten AdvReac Other Verified 03/01/25 09:40 Family History Father prostate cancer Surgical History History of colonoscopy (~09/24/20) History of hernia repair History of spinal surgery (~2017) History of repair of hip fracture History of cholecystectomy colonoscopy Social History Smoking Status: Former smoker alcohol intake: never substance use type: does not use Physical Exam Const alert, oriented x3 and no apparent distress General Appearance: cooperative, comfortable and well developed Orientation / Consciousness: awake, oriented to person, oriented to place and oriented to time Exam Limitations: no limitations HEENT normocephalic and head/scalp atraumatic Head and Scalp: normal to inspection, normocephalic and atraumatic Face and Sinus: normal facial exam Nose: external nose normal External Ear: external ears normal Eyes General Eye: normal appearance of both eyes Resp normal respiratory effort, normal air movement, no retractions and no use of accessory muscles Effort and Inspection: able to speak in complete sentences Skin General Skin Exam: venous stasis and dermatitis Wound Narrative: A venous stasis ulceration is noted near the patient's left medial malleolus. It is full-thickness in nature. There is a moderate amount of bioburden and nonviable tissue. Dimensions are documented elsewhere. There is no sign of infection or cellulitis. Hyperpigmentation, hemosiderin staining, and l ipodermatosclerosis are noted in the left gaiter area. Ridley phlebectatica isnoted on the left medial foot. Scattered varicosities are noted in the left lower extremity. Onychomycosis is noted involving the toenails of the left foot. Slight swelling is noted in the patient's left lower extremity. Neuro oriented x3, CN's II-XII intact bilaterally, moves all extremities and no focal motor deficits Sensorium / Orientation: awake, alert, oriented to person, oriented to place andoriented to time Debridement Note Debridement Note Wound debrided: Left medial ankle ulceration Laterality: Left Type of Debridement: Excisional debridement Anesthesia Used: 5% Lidocaine Gel Depth: Down to and including healthy tissue and in the subcutaneous layer Percentage of wound debrided: 100 Instrument Used: 3mm curette Tissue Removed: Devitalized tissue and bioburden Severity: Fat Layer Exposed Amount of bleeding with debridement: Mild Bleeding Controlled with: Compression and gauze Patient tolerated procedure: Patient tolerated procedure well Post-Debridement Measurements and Additional Note: Post-Debridement Measurements/Treatment - Nurse 1 - General Ulcer Assessment Start: 02/16/25 09:17 Freq: Status: Active Protocol: ANAYA Activity Type Activity Date Activity User E-sign Co-sign Detail Recorded Client Recorded Date Recorded By Document 02/16/25 09:21 KW [id number] 02/16/25 09:29 KW Document 02/20/25 08:53 KW [id number] 02/20/25 08:56 KW Document 02/23/25 09:23 KW [id number] 02/23/25 09:28 KW 02/16/25 02/20/25 02/23/25 09:21 08:53 09:23 - Today's Visit Information Type of service Initial Visit Follow-up Visit Follow-up Visit (Physician/PROVIDER ENROLLMENT SPECIALIST (Physician/PROVIDER ENROLLMENT SPECIALIST ) ) Arrival Mode Ambulatory Ambulatory Ambulatory Patient Identification Verified (Name & Yes Yes Yes ) Vital Signs Temperature (97.8 F-99.1 F) 96.9 F L 96.3 F L Temperature Source Temporal Temporal Pulse Rate (60-100) 67 67 60 Pulse Location Monitor Monitor Monitor Respiratory Rate (12-18) 18 18 18 Respiratory rate source Observation Observation Observation Oxygen Delivery Method Room Air Room Air Room Air Blood Pressure (90/60-120/80) 144/58 H 150/78 H 126/66 H Blood Pressure Mean (mm Hg) 86 102 86 Source Monitor Monitor Monitor Position Semi-Fowlers Semi-Fowlers Semi-Fowlers Blood Pressure Location Right Arm Right Forearm Left Arm History Since Last Visit- (Skip if this is Patient's initial visit) Have you changed medications since your No No last visit? Any new allergies or adverse reactions No No Had a fall/change in ADL's that may No No increase risk of falls Signs or symptoms of abuse and/or No No neglect since last visit Have you been in the hospital since your No No last visit? Has dressing in place as prescribed Yes Yes Has compression in place as prescribed Yes Yes Has offloadiing in place as prescribed N/A N/A Experienced any changes in pain level or No No management Left Footwear Regular Shoe Regular Shoe Regular Shoe Right Footwear Regular Shoe Regular Shoe Regular Shoe Pain Scale: 0-10 Numeric Is Patient Pain Free? Yes Yes Yes WC - Nurse 1 - General Ulcer Measurement Start: 02/16/25 09:17 Freq: Status: Active Protocol: Activity Type Activity Date Activity User E-sign Co-sign Detail Recorded Client Recorded Date Recorded By Document 02/16/25 09:21 KW [id number] 02/16/25 09:29 KW Document 02/23/25 09:23 KW [id number] 02/23/25 09:28 KW 02/16/25 02/23/25 09:21 09:23 Wound Center Nurse 1 #1 L Med Ankle -Current Size (cm) - Length 1 1 -Current Size (cm) - Width 0.5 0.7 -Current Size (cm) - Depth 0.2 0.1 -Total Square Cm 0.5 0.7 -Date of Last Picture (Recall this 02/16/25 field) -Exudate Amt Small -Exudate Type Serosanguineous Serosanguineous -Wound Margin Distinct, Distinct, Outline Outline Attached Attached -Granulation Amt Large (67-100%) Small (1-33%) -Granulation Quality [place] -Necrosis Amt Medium (34-66%) Large (67-100%) -Necrotic Tissue Type Adherent Slough Adherent Slough -Texture (Megan-wound Skin Appearance) Assessed Assessed -Moisture (Megan-wound Skin Appearance) Assessed Assessed -Color (Megan-wound Skin Appearance) Assessed Assessed, Erythema -Temperature (Megan-wound Skin No Abnormality No Abnormality Appearance) (Pt Warm) (Pt Warm) -Tenderness on Palpation (Megan-wound No No Skin Appearance) -Ulcer Cleansing Soap and Water Soap and Water -Foul Odor after Cleansing No No -Anesthetic Used 5% Lidocaine 5% Lidocaine Gel Gel Left Calf (cm) 38 35 Left Ankle (cm) 23 20.8 - Nurse 2 - General Ulcer CM Notes Start: 02/16/25 09:17 Freq: Status: Active Protocol: Activity Type Activity Date Activity User E-sign Co-sign Detail Recorded Client Recorded Date Recorded By Document 02/16/25 09:35 BM [id number] 02/16/25 09:42 BM Document 02/23/25 09:46 BM [id number] 02/23/25 09:48 BMF 02/16/25 02/23/25 09:35 09:46 Wound Center Nurse 2 #1 L Med Ankle -Time 09:35 09:46 -Correct Patient Yes Yes -Correct Side, Site, Position Yes Yes -Correct Procedure Yes Yes -Procedure Performed Yes Yes -Type of Procedure Debridement Debridement -Clinical Debridement Subcutaneous Subcutaneous -Tissue Removed Subcutaneous Subcutaneous -Post Debridement (cm) - Length 0.9 1.1 -Post Debridement (cm) - Width 0.5 0.7 -Post Debridement (cm) - Depth 0.1 0.1 -Total Square (Post) (cm) 0.45 0.77 -Area of Debridement (cm) - Length 0.9 1.1 -Area of Debridement (cm) - Width 0.5 0.7 -Total Square (Area) (cm) 0.45 0.77 -Tunneling No No -Undermining/Tunneling No No -Circular Undermining No No -Wound/Ulcer Outcome Not Healed Not Healed -Ulcer Cleansing Rinsed/ Rinsed/ Irrigated with Irrigated with Saline Saline -Foul Odor after Cleansing No No -Bioengineered Tissue No No -Bleeding Controlled with Pressure Pressure -Treatment Response Procedure Procedure Tolerated Well Tolerated Well -Debridement - Subq, 1st 20sq cm Yes Yes Pain Scale: 0-10 Numeric Is Patient Pain Free? Yes Yes - Nurse 3 - General Ulcer D/C NN Start: 02/16/25 09:17 Freq: Status: Active Protocol: Activity Type Activity Date Activity User E-sign Co-sign Detail Recorded Client Recorded Date Recorded By Document 02/16/25 11:47 RB [id number] 02/16/25 11:48 RB Document 02/20/25 08:53 KW [id number] 02/20/25 08:56 KW Document 02/23/25 09:57 DL [id number] 02/23/25 09:58 DL 02/16/25 02/20/25 02/23/25 11:47 08:53 09:57 Wound Care Center Nurse 3 #1 L Med Ankle -Ulcer Cleansing Rinsed/ Soap and Water Rinsed/ Irrigated with Irrigated with Saline Saline -Foul Odor after Cleansing No -Primary Dressing Applied Promogran Promogran Promogran Abran Matter Abran Matter Abran Matter -Primary Dressing Covered/Secured with Dry Gauze & Dry Gauze Dry Gauze Roll Gauze, Secured with Tape -Promogran Abran Matter 1 1 1 LLE -Lotion applied to leg before Yes compression wrap -Multi-Layered Wrap Application Multi-Layer Multi-Layer Multi-Layer Comp - Left ($) Comp - Left ($) Comp - Left ($) -Multi-Layer Compression Left (Qty 1 1 1 applied) Treatment Response Procedure Tolerated Well Pain Scale: 0-10 Numeric Is Patient Pain Free? 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: CODE(S): L97.302 - Non-pressure chronic ulcer of unspecified ankle with fat layer exposed QUALIFIERS: Laterality: left Qualified Code(s): L97.322 - Non-pressure chronic ulcer of left ankle with fat layer exposed (2) 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: CODE(S): I83.003 - Varicose veins of unspecified lower extremity with ulcer of ankle; L97.302 - Non-pressure chronic ulcer of unspecified ankle with fat layer exposed QUALIFIERS: Varicose vein presence: with varicose veins Laterality: left Qualified Code(s): I83.023- Varicose veins of left lower extremity with ulcer of ankle; L97.322 - Non-pressure chronic ulcer of left ankle with fat layer exposed (3) Ulcer of extremity due to chronic venous insufficiency: CODE(S): L98.499 - Non-pressure chronic ulcer of skin of other sites with unspecified severity; I87.2 - Venous insufficiency (chronic) (peripheral) (4) Bilateral lower extremity edema: CODE(S): R60.0 - Localized edema (5) Asthma: CODE(S): J45.909 - Unspecified asthma, uncomplicated QUALIFIERS: Asthma severity: severe Asthma persistence: persistent Asthma complication type: with acute exacerbation Qualified Code(s): J45.51 - Severe persistent asthma with (acute) exacerbation (6) GERD (gastroesophageal reflux disease): CODE(S): K21.9 - Gastro-esophageal reflux disease without esophagitis QUALIFIERS: Esophagitis presence: esophagitis presence not specified Qualified Code(s): K21.9 - Gastro-esophageal reflux disease without esophagitis (7) JOSHUA (obstructive sleep apnea): CODE(S): G47.33 - Obstructive sleep apnea (adult) (pediatric) (8) History of hernia repair: CODE(S): Z98.890 - Other specified postprocedural states; Z87.19 - Personal history of other diseases of the digestive system (9) History of spinal surgery: CODE(S): Z98.890 - Other specified postprocedural states (10) History of repair of hip fracture: CODE(S): Z98.890 - Other specified postprocedural states (11) History of cholecystectomy: CODE(S): Z90.49 - Acquired absence of other specified parts of digestive tract PLAN: Plan This is a 80-year-old male with a history of chronic venous insufficiency and associated manifestations. He is currently being treated for a venous stasis ulceration at the site of the left medial ankle. He has a history of severe deep vein thrombosis in the left lower extremity approximately 20 years ago. 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 A lengthy discussion has been undertaken with the patient as to the appropriate means of long-term care. He has been encouraged to continue sleeping on a flat mattress at night. He has been advised to elevate his lower extremities during daytime hours as well, as much as possible elevation is to be to heart level, or higher. Ambulation has been encouraged. Prolonged idle sitting has been discouraged. A venous duplex examination approximately 1 year ago revealed incompetence of the left great saphenous vein below the knee, incompetence of the left small saphenous vein, and incompetence of the accessory saphenous vein in the left midcalf. The patient has recently been evaluated by the Vascular Surgery service, and consideration is being given to a venous ablation procedure in the future. A repeat of his venous duplex examination is scheduled for the near future. At this time, we are to continue the use of Abran applied topically to the venous stasis ulceration near the left medial ankle. Compression is to be applied by means of a 3M multilayer compression wrap. The compression and Abran are to bechanged twice weekly. Patient is to return in 1 week for reevaluation by his regular Wound Center provider, Dr. Merrill Burns. Total time: 45 minutes 03/04/251918 Cosigner Signature (if applicable): CC: ~ Signed [facility]05-08-2025 Progress note Author Merrill Burns [facility] Note Date/Time February 23, 2025 11:22a m [facility] [address] [place] [address] Progress Note - Wound Care 02/23/25 1118 MR#: [id number] Acct: [id number] Name: WELLINGTON GONZALEZ Rep #:[id number] : 1945 80 From: Merrill machado DPM PCP: Dr. Randa Joseph, DO Status:REG RCR Location: History of Present Illness Date of Service: 02/23/25 Chief Complaint: Left medial ankle wound History of Wound: Patient is a 79-year-old male who presents to the wound care center with recurring left lower extremity medial ankle wound. He has PMHx of recurring left lower extremity ulceration secondary to chronic venous insufficiency, history of DVT, obesity, JOSHUA, iron deficient anemia, delayed wound healing, and asthma. He states that he does have compression stockings and continues to wear them. He had been following in the wound care center for a deep ulceration to the medial aspect of the left lower extremity overlying theneurovascular bundle. He did go on to heal this ulceration as of 12/31/[address] Mckee for venogram. He has continued wearing compression stockings however states that while in the shower he did notice a scab of the left medial ankle and after showering applied antibiotic ointment and Band-Aid which later then the scab became soft and opened a small wound. He states that he did see his PCP who did obtain cultures and placed him on oral antibiotic. He was then referred to the wound care center for further follow-up. He denies any further trauma to the site. States that the specific site is recurrent withbreakdown of skin. Denies N/V/F/chills. No further complaints. Subjective Subjective This is a 80-year-old male who returns to the wound care center for continued follow-up of a chronic venous stasis/insufficiency ulceration at the medial aspect of the left lower extremity. He reports keeping dressing clean, dry, andintact with his 3M compression wrap to the left lower extremity. He did return for dressing change as nurse visit this past Thursday. States that he did believethe wound measured bigger today but his swelling appears to be well-controlled. He denies constitutional symptoms. Denies further complaints. Objective Data Objective Data Vital Signs: Vital Signs Temp Pulse Resp BP O2 Del Method 96.3 F L 60 18 126/66 H Room Air 02/23/25 09:23 02/23/25 09:23 02/23/25 09:23 02/23/25 09:23 02/23/25 09:23 Oxygen Delivery Method Room Air Physical Exam Const alert, oriented x3 and no apparent distress General Appearance: cooperative HEENT normocephalic Eyes General Eye: normal appearance of both eyes Neck General: normal visual inspection Lymph Lymphatic: no lymphadenopathy noted and no lymphedema noted Resp normal respiratory effort Cardio regular rate and regular rhythm Extremity Extremity Narrative: Left lower extremity: Vascular: DP and PT pulses weakly palpable. Capillary fill time to digits is 5 seconds. Normal temperature gradient. There is absent hair growth to digits noted. Dermatological: There is a full-thickness ulceration noted to the medial aspect of the lower extremity/ankle with mixed fibrogranular layer. Negative Stemmer sign left foot. There is evidence of stasis dermatitis with hyperpigmentation/hemosiderin deposition/staining of skin left lower extremity. There are varicosities noted of the lower extremity with mild lower extremity edema. There is no erythema or rubor of the left lower extremity. Musculoskeletal: Muscle strength 5 of 5 age-appropriate. There is decreased range of motion of the ankle joint dorsiflexion with knee extended without pain or crepitus. Decreased range of motion of the STJ, MTJ, and first MTPJ without pain or crepitus. There is pain to palpation of the left calf today with positive Gómez sign and Homans' sign. Skin no rashes or lesions noted General Skin Exam: venous stasis and dermatitis Neuro moves all extremities Debridement Note Debridement Note Wound debrided: Left lower extremity Laterality: Left Wound Grade/Stage: Cisneros stage I Type of Debridement: Excisional debridement Anesthesia Used: 5% Lidocaine Gel Depth: Down to and including healthy tissue and in the subcutaneous layer Percentage of wound debrided: 100 Instrument Used: 3mm curette Tissue Removed: Fibrous, devitalized subcutaneous, biofilm, slough Severity: Fat Layer Exposed Amount of bleeding with debridement: Mild Bleeding Controlled with: Compression and gauze Patient tolerated procedure: Patient tolerated procedure well Post-Debridement Measurements and Additional Note: Post-Debridement Measurements/Treatment - Nurse 1 - General Ulcer Assessment Start: 02/16/25 09:17 Freq: Status: Active Protocol: LA NENA.JESUS Activity Type Activity Date Activity User E-sign Co-sign Detail Recorded Client Recorded Date Recorded By Document 02/16/25 09:21 KW [id number] 02/16/25 09:29 KW Document 02/20/25 08:53 KW [id number] 02/20/25 08:56 KW Document 02/23/25 09:23 KW [id number] 02/23/25 09:28 KW 02/16/25 02/20/25 02/23/25 09:21 08:53 09:23 - Today's Visit Information Type of service Initial Visit Follow-up Visit Follow-up Visit (Physician/PROVIDER ENROLLMENT SPECIALIST (Physician/PROVIDER ENROLLMENT SPECIALIST ) ) Arrival Mode Ambulatory Ambulatory Ambulatory Patient Identification Verified (Name & Yes Yes Yes ) Vital Signs Temperature (97.8 F-99.1 F) 96.9 F L 96.3 F L Temperature Source Temporal Temporal Pulse Rate (60-100) 67 67 60 Pulse Location Monitor Monitor Monitor Respiratory Rate (12-18) 18 18 18 Respiratory rate source Observation Observation Observation Oxygen Delivery Method Room Air Room Air Room Air Blood Pressure (90/60-120/80) 144/58 H 150/78 H 126/66 H Blood Pressure Mean (mm Hg) 86 102 86 Source Monitor Monitor Monitor Position Semi-Fowlers Semi-Fowlers Semi-Fowlers Blood Pressure Location Right Arm Right Forearm Left Arm History Since Last Visit- (Skip if this is Patient's initial visit) Have you changed medications since your No No last visit? Any new allergies or adverse reactions No No Had a fall/change in ADL's that may No No increase risk of falls Signs or symptoms of abuse and/or No No neglect since last visit Have you been in the hospital since your No No last visit? Has dressing in place as prescribed Yes Yes Has compression in place as prescribed Yes Yes Has offloadiing in place as prescribed N/A N/A Experienced any changes in pain level or No No management Left Footwear Regular Shoe Regular Shoe Regular Shoe Right Footwear Regular Shoe Regular Shoe Regular Shoe Pain Scale: 0-10 Numeric Is Patient Pain Free? Yes Yes Yes WC - Nurse 1 - General Ulcer Measurement Start: 02/16/25 09:17 Freq: Status: Active Protocol: Activity Type Activity Date Activity User E-sign Co-sign Detail Recorded Client Recorded Date Recorded By Document 02/16/25 09:21 KW [id number] 02/16/25 09:29 KW Document 02/23/25 09:23 [id number] 02/23/25 09:28 KW 02/16/25 02/23/25 09:21 09:23 Wound Center Nurse 1 #1 L Med Ankle -Current Size (cm) - Length 1 1 -Current Size (cm) - Width 0.5 0.7 -Current Size (cm) - Depth 0.2 0.1 -Total Square Cm 0.5 0.7 -Date of Last Picture (Recall this 02/16/25 field) -Exudate Amt Small -Exudate Type Serosanguineous Serosanguineous -Wound Margin Distinct, Distinct, Outline Outline Attached Attached -Granulation Amt Large (67-100%) Small (1-33%) -Granulation Quality [place] -Necrosis Amt Medium (34-66%) Large (67-100%) -Necrotic Tissue Type Adherent Slough Adherent Slough -Texture (Megan-wound Skin Appearance) Assessed Assessed -Moisture (Megan-wound Skin Appearance) Assessed Assessed -Color (Megan-wound Skin Appearance) Assessed Assessed, Erythema -Temperature (Megan-wound Skin No Abnormality No Abnormality Appearance) (Pt Warm) (Pt Warm) -Tenderness on Palpation (Megan-wound No No Skin Appearance) -Ulcer Cleansing Soap and Water Soap and Water -Foul Odor after Cleansing No No -Anesthetic Used 5% Lidocaine 5% Lidocaine Gel Gel Left Calf (cm) 38 35 Left Ankle (cm) 23 20.8 WC - Nurse 2 - General Ulcer CM Notes Start: 02/16/25 09:17 Freq: Status: Active Protocol: Activity Type Activity Date Activity User E-sign Co-sign Detail Recorded Client Recorded Date Recorded By Document 02/16/25 09:35 BMF [id number] 02/16/25 09:42 BM Document 02/23/25 09:46 [facility] [id number] 02/23/25 09:48 F 02/16/25 02/23/25 09:35 09:46 Wound Center Nurse 2 #1 L Med Ankle -Time 09:35 09:46 -Correct Patient Yes Yes -Correct Side, Site, Position Yes Yes -Correct Procedure Yes Yes -Procedure Performed Yes Yes -Type of Procedure Debridement Debridement -Clinical Debridement Subcutaneous Subcutaneous -Tissue Removed Subcutaneous Subcutaneous -Post Debridement (cm) - Length 0.9 1.1 -Post Debridement (cm) - Width 0.5 0.7 -Post Debridement (cm) - Depth 0.1 0.1 -Total Square (Post) (cm) 0.45 0.77 -Area of Debridement (cm) - Length 0.9 1.1 -Area of Debridement (cm) - Width 0.5 0.7 -Total Square (Area) (cm) 0.45 0.77 -Tunneling No No -Undermining/Tunneling No No -Circular Undermining No No -Wound/Ulcer Outcome Not Healed Not Healed -Ulcer Cleansing Rinsed/ Rinsed/ Irrigated with Irrigated with Saline Saline -Foul Odor after Cleansing No No -Bioengineered Tissue No No -Bleeding Controlled with Pressure Pressure -Treatment Response Procedure Procedure Tolerated Well Tolerated Well -Debridement - Subq, 1st 20sq cm Yes Yes Pain Scale: 0-10 Numeric Is Patient Pain Free? Yes Yes WC - Nurse 3 - General Ulcer D/C NN Start: 02/16/25 09:17 Freq: Status: Active Protocol: Activity Type Activity Date Activity User E-sign Co-sign Detail Recorded Client Recorded Date Recorded By Document 02/16/25 11:47 RB [id number] 02/16/25 11:48 RB Document 02/20/25 08:53 KW [id number] 02/20/25 08:56 KW Document 05/08/25 09:57 DL [id number] 02/23/25 09:58 DL 02/16/25 02/20/25 02/23/25 11:47 08:53 09:57 Wound Care Center Nurse 3 #1 L Med Ankle -Ulcer Cleansing Rinsed/ Soap and Water Rinsed/ Irrigated with Irrigated with Saline Saline -Foul Odor after Cleansing No -Primary Dressing Applied Promogran Promogran Promogran Abran Matter Abran Matter Abran Matter -Primary Dressing Covered/Secured with Dry Gauze & Dry Gauze Dry Gauze Roll Gauze, Secured with Tape -Promogran Abran Matter 1 1 1 LLE -Lotion applied to leg before Yes compression wrap -Multi-Layered Wrap Application Multi-Layer Multi-Layer Multi-Layer Comp - Left ($) Comp - Left ($) Comp - Left ($) -Multi-Layer Compression Left (Qty 1 1 1 applied) Treatment Response Procedure Tolerated Well Pain Scale: 0-10 Numeric Is Patient Pain Free? Yes Yes Yes WC - Visit Discharge Discharge Condition Stable Stable Stable Ambulatory Status Ambulatory Ambulatory Ambulatory Transportation Private Auto Private Auto Private Auto Medication Reconcilliation completed & No No provided to patient/care provider Clinical Summary of Care Provided Yes Yes Assessment/Plan Assessment/Plan (1) Non-pressure chronic ulcer of left calf with fat layer exposed: CODE(S): L97.222 - Non-pressure chronic ulcer of left calf with fat layer exposed (2) Ulcer of extremity due to chronic venous insufficiency: CODE(S): L98.499 - Non-pressure chronic ulcer of skin of other sites with unspecified severity; I87.2 - Venous insufficiency (chronic) (peripheral) (3) Bilateral lower extremity edema: CODE(S): R60.0 - Localized edema PLAN: Plan Patient seen and evaluated Predebridement measurement 0.9 cm x 0.6 cm x 0.1 cm Ulceration site underwent debridement as noted in the clinical panel above. Postdebridement measurement 1.1 cm x 0.7 cm x 0.1 cm. Abran was applied to thewound bed and 3M compression wrap to left lower extremity. He was instructed tokeep dressings clean, dry, and intact to the left lower extremity. There is slight increase in size of ulceration versus previous visit. However, edema remains well-controlled. Stat Doppler for 02/16/2025 was negative for DVT He was again instructed on continued elevation of the lower extremities to aid in edema control. Following healing of ulcerative site he will return to compression stockings however this time we will increase from 20 to 30 mmHg to 30 to 40 mmHg versus application of juxta lite compression. Juxta lite compression wrap was applied for 02/16/2025, awaiting approval. Discussed follow-up with Dr. Mckee for potential procedure to aid in his venousinsufficiency. Discussed continued diet to aid in healing with adequate protein intake. Discussed signs and symptoms of infection. Discussed if he notices any increasing redness around the ulcerative site that is moved up the leg, purulentdrainage from the ulcerative site, increasing foul odor from the ulcerative site, or if he develops fever greater than 101 degree accompanied by nausea, vomiting, chills of these are signs of a progressing infection and he should report to the ED for IV antibiotics and further evaluation. He is understandingof this today. The following work up and care recommendations were made: Dressing: Abran to ulcerative bed with 3M compression wrap to the left lower extremity. Will continue compression stocking to right lower extremity Wash: Do not get wet. Use cast bag when showering to maintain compliance. Tissue growth optimization: Abran Offload: 3M compression wrap Vascular: Does have history of positive venous insufficiency/reflux. Will seek vascular assistance for potential procedure. Edema: 3M compression wrap and elevation of the lower extremities Infection: No signs of infection Pain: May take [id number] Tylenol Extra Strength for discomfort Host factors: Chronic venous insufficiency, chronic lower extremity edema, prolonged standing/activity, advanced age complicate healing. I answered all the patient's questions. To return to the wound healing center in [address] Nagel for courtesy visit or call sooner if the patient has any questions or concerns. 02/23/25 1122 <Electronically signed by Merrill Burns DPM> Cosigner Signature (if applicable): CC: ~ Signed [facility] Work Phone: [phone] 125-902205-08-2025 Progress note [facility] [address] [place] [address] Progress Note - Wound Care 02/23/25 1118 MR#: [id number] Acct: [id number] Name: WELLINGTON GONZALEZ Rep #:[id number] : 1945 80 From: Merrill machado DPM PCP: Dr. Randa Joseph, DO Status:REG RCR Location: History of Present Illness Date of Service: 02/23/25 Chief Complaint: Left medial ankle wound History of Wound: Patient is a 79-year-old male who presents to the wound care center with recurring left lower extremity medial ankle wound. He has PMHx of recurring left lower extremity ulceration secondary to chronic venous insufficiency, history of DVT, obesity, JOSHUA, iron deficient anemia, delayed wound healing, and asthma. He states that he does have compression stockings and continues to wear them. He had been following in the wound care center for a deep ulceration to the medial aspect of the left lower extremity overlying theneurovascular bundle. He did go on to heal this ulceration as of 12/31/[address] Mckee for venogram. He has continued wearing compression stockings however states that while in the shower he did notice a scab of the left medial ankle and aftershowering applied antibiotic ointment and Band-Aid which later then the scab became soft and openeda small wound. He states that he did see his PCP who did obtain cultures and placed him on oral antibiotic. He was then referred to the wound care center for further follow-up. He denies any further trauma to the site. States that the specific site is recurrent withbreakdown of skin. Denies N/V/F/chills. No further complaints. Subjective Subjective This is a 80-year-old male who returns to the wound care center for continued follow-up of a chronic venous stasis/insufficiency ulceration at the medial aspect of the left lower extremity. He reports keeping dressing clean, dry, andintact with his 3M compression wrap to the left lower extremity. He did return for dressing change as nurse visit this past Thursday. States that he did believethe wound measured bigger today but his swelling appears to be well- controlled. He denies constitutional symptoms. Denies further complaints. Objective Data Objective Data Vital Signs: Vital Signs Temp Pulse Resp BP O2 Del Method 96.3 F L 60 18 126/66 H Room Air 02/23/25 09:23 02/23/25 09:23 02/23/25 09:23 02/23/25 09:23 02/23/25 09:23 Oxygen Delivery Method Room Air Physical Exam Const alert, oriented x3 and no apparent distress General Appearance: cooperative HEENT normocephalic Eyes General Eye: normal appearance of both eyes Neck General: normal visual inspection Lymph Lymphatic: no lymphadenopathy noted and no lymphedema noted Resp normal respiratory effort Cardio regular rate and regular rhythm Extremity Extremity Narrative: Left lower extremity: Vascular: DP and PT pulses weakly palpable. Capillary fill time to digits is 5 seconds. Normal temperature gradient. There is absent hair growth to digits noted. Dermatological: There is a full-thickness ulceration noted to the medial aspect of the lower extremity/ankle with mixed fibrogranular layer. Negative Stemmer sign left foot. There is evidence of stasis dermatitis with hyperpigmentation/hemosiderin deposition/staining of skin left lower extremity. There are varicosities noted of the lower extremity with mild lower extremity edema. There is no erythema or rubor of the left lower extremity. Musculoskeletal: Muscle strength 5 of 5 age-appropriate. There is decreased range of motion of the ankle joint dorsiflexion with knee extended without pain or crepitus. Decreased range of motion of the STJ, MTJ, and first MTPJ without pain or crepitus. There is pain to palpation of the left calf today with positive Gómez sign and Homans' sign. Skin no rashes or lesions noted General Skin Exam: venous stasis and dermatitis Neuro moves all extremities Debridement Note Debridement Note Wound debrided: Left lower extremity Laterality: Left Wound Grade/Stage: Cisneros stage I Type of Debridement: Excisional debridement Anesthesia Used: 5% Lidocaine Gel Depth: Down to and including healthy tissue and in the subcutaneous layer Percentage of wound debrided: 100 Instrument Used: 3mm curette Tissue Removed: Fibrous, devitalized subcutaneous, biofilm, slough Severity: Fat Layer Exposed Amount of bleeding with debridement: Mild Bleeding Controlled with: Compression and gauze Patient tolerated procedure: Patient tolerated procedure well Post-Debridement Measurements and Additional Note: Post-Debridement Measurements/Treatment LA NENA - Nurse 1 - General Ulcer Assessment Start: 02/16/25 09:17 Freq: Status: Active Protocol: ANAYA Activity Type Activity Date Activity User E-sign Co-sign Detail Recorded Client Recorded Date Recorded By Document 02/16/25 09:21 KW [id number] 02/16/25 09:29 KW Document 02/20/25 08:53 KW [id number] 02/20/25 08:56 KW Document 02/23/25 09:23 KW [id number] 02/23/25 09:28 KW 02/16/25 02/20/25 02/23/25 09:21 08:53 09:23 - Today's Visit Information Type of service Initial Visit Follow-up Visit Follow-up Visit (Physician/PROVIDER ENROLLMENT SPECIALIST (Physician/PROVIDER ENROLLMENT SPECIALIST ) ) Arrival Mode Ambulatory Ambulatory Ambulatory Patient Identification Verified (Name & Yes Yes Yes ) Vital Signs Temperature (97.8 F-99.1 F) 96.9 F L 96.3 F L Temperature Source Temporal Temporal Pulse Rate (60-100) 67 67 60 Pulse Location Monitor Monitor Monitor Respiratory Rate (12-18) 18 18 18 Respiratory rate source Observation Observation Observation Oxygen Delivery Method Room Air Room Air Room Air Blood Pressure (90/60-120/80) 144/58 H 150/78 H 126/66 H Blood Pressure Mean (mm Hg) 86 102 86 Source Monitor Monitor Monitor Position Semi-Fowlers Semi-Fowlers Semi-Fowlers Blood Pressure Location Right Arm Right Forearm Left Arm History Since Last Visit- (Skip if this is Patient's initial visit) Have you changed medications since your No No last visit? Any new allergies or adverse reactions No No Had a fall/change in ADL's that may No No increase risk of falls Signs or symptoms of abuse and/or No No neglect since last visit Have you been in the hospital since your No No last visit? Has dressing in place as prescribed Yes Yes Has compression in place as prescribed Yes Yes Has offloadiing in place as prescribed N/A N/A Experienced any changes in pain level or No No management Left Footwear Regular Shoe Regular Shoe Regular Shoe Right Footwear Regular Shoe Regular Shoe Regular Shoe Pain Scale: 0-10 Numeric Is Patient Pain Free? Yes Yes Yes - Nurse 1 - General Ulcer Measurement Start: 02/16/25 09:17 Freq: Status: Active Protocol: Activity Type Activity Date Activity User E-sign Co-sign Detail Recorded Client Recorded Date Recorded By Document 02/16/25 09:21 KW [id number] 02/16/25 09:29 KW Document 02/23/25 09:23 KW [id number] 02/23/25 09:28 KW 02/16/25 02/23/25 09:21 09:23 Wound Center Nurse 1 #1 L Med Ankle -Current Size (cm) - Length 1 1 -Current Size (cm) - Width 0.5 0.7 -Current Size (cm) - Depth 0.2 0.1 -Total Square Cm 0.5 0.7 -Date of Last Picture (Recall this 02/16/25 field) -Exudate Amt Small -Exudate Type Serosanguineous Serosanguineous -Wound Margin Distinct, Distinct, Outline Outline Attached Attached -Granulation Amt Large (67-100%) Small (1-33%) -Granulation Quality [place] -Necrosis Amt Medium (34-66%) Large (67-100%) -Necrotic Tissue Type Adherent Slough Adherent Slough -Texture (Megan-wound Skin Appearance) Assessed Assessed -Moisture (Megan-wound Skin Appearance) Assessed Assessed -Color (Megan-wound Skin Appearance) Assessed Assessed, Erythema -Temperature (Megan-wound Skin No Abnormality No Abnormality Appearance) (Pt Warm) (Pt Warm) -Tenderness on Palpation (Emgan-wound No No Skin Appearance) -Ulcer Cleansing Soap and Water Soap and Water -Foul Odor after Cleansing No No -Anesthetic Used 5% Lidocaine 5% Lidocaine Gel Gel Left Calf (cm) 38 35 Left Ankle (cm) 23 20.8 WC - Nurse 2 - General Ulcer CM Notes Start: 02/16/25 09:17 Freq: Status: Active Protocol: Activity Type Activity Date Activity User E-sign Co-sign Detail Recorded Client Recorded Date Recorded By Document 02/16/25 09:35 [facility] [id number] 02/16/25 09:42 [facility] Document 02/23/25 09:46 [facility] [id number] 02/23/25 09:48 [facility] 02/16/25 02/23/25 09:35 09:46 Wound Center Nurse 2 #1 L Med Ankle -Time 09:35 09:46 -Correct Patient Yes Yes -Correct Side, Site, Position Yes Yes -Correct Procedure Yes Yes -Procedure Performed Yes Yes -Type of Procedure Debridement Debridement -Clinical Debridement Subcutaneous Subcutaneous -Tissue Removed Subcutaneous Subcutaneous -Post Debridement (cm) - Length 0.9 1.1 -Post Debridement (cm) - Width 0.5 0.7 -Post Debridement (cm) - Depth 0.1 0.1 -Total Square (Post) (cm) 0.45 0.77 -Area of Debridement (cm) - Length 0.9 1.1 -Area of Debridement (cm) - Width 0.5 0.7 -Total Square (Area) (cm) 0.45 0.77 -Tunneling No No -Undermining/Tunneling No No -Circular Undermining No No -Wound/Ulcer Outcome Not Healed Not Healed -Ulcer Cleansing Rinsed/ Rinsed/ Irrigated with Irrigated with Saline Saline -Foul Odor after Cleansing No No -Bioengineered Tissue No No -Bleeding Controlled with Pressure Pressure -Treatment Response Procedure Procedure Tolerated Well Tolerated Well -Debridement - Subq, 1st 20sq cm Yes Yes Pain Scale: 0-10 Numeric Is Patient Pain Free? Yes Yes - Nurse 3 - General Ulcer D/C NN Start: 02/16/25 09:17 Freq: Status: Active Protocol: Activity Type Activity Date Activity User E-sign Co-sign Detail Recorded Client Recorded Date Recorded By Document 02/16/25 11:47 RB [id number] 02/16/25 11:48 RB Document 02/20/25 08:53 KW [id number] 02/20/25 08:56 KW Document 02/23/25 09:57 DL [id number] 02/23/25 09:58 DL 02/16/25 02/20/25 02/23/25 11:47 08:53 09:57 Wound Care Center Nurse 3 #1 L Med Ankle -Ulcer Cleansing Rinsed/ Soap and Water Rinsed/ Irrigated with Irrigated with Saline Saline -Foul Odor after Cleansing No -Primary Dressing Applied Promogran Promogran Promogran Abran Matter Abran Matter Abran Matter -Primary Dressing Covered/Secured with Dry Gauze & Dry Gauze Dry Gauze Roll Gauze, Secured with Tape -Promogran Abran Matter 1 1 1 LLE -Lotion applied to leg before Yes compression wrap -Multi-Layered Wrap Application Multi-Layer Multi-Layer Multi-Layer Comp - Left ($) Comp - Left ($) Comp - Left ($) -Multi-Layer Compression Left (Qty 1 1 1 applied) Treatment Response Procedure Tolerated Well Pain Scale: 0-10 Numeric Is Patient Pain Free? Yes Yes Yes WC - Visit Discharge Discharge Condition Stable Stable Stable Ambulatory Status Ambulatory Ambulatory Ambulatory Transportation Private Auto Private Auto Private Auto Medication Reconcilliation completed & No No provided to patient/care provider Clinical Summary of Care Provided Yes Yes Assessment/Plan Assessment/Plan (1) Non-pressure chronic ulcer of left calf with fat layer exposed: CODE(S): L97.222 - Non-pressure chronic ulcer of left calf with fat layer exposed (2) Ulcer of extremity due to chronic venous insufficiency: CODE(S): L98.499 - Non-pressure chronic ulcer of skin of other sites with unspecified severity; I87.2 - Venous insufficiency (chronic) (peripheral) (3) Bilateral lower extremity edema: CODE(S): R60.0 - Localized edema PLAN: Plan Patient seen and evaluated Predebridement measurement 0.9 cm x 0.6 cm x 0.1 cm Ulceration site underwent debridement as noted in the clinical panel above. Postdebridement measurement 1.1 cm x 0.7 cm x 0.1 cm. Abran was applied to thewound bed and 3M compression wrap to left lower extremity. He was instructed tokeep dressings clean, dry, and intact to the left lower extremity. There is slight increase in size of ulceration versus previous visit. However, edema remains well-controlled. Stat Doppler for 02/16/2025 was negative for DVT He was again instructed on continued elevation of the lower extremities to aid in edema control. Following healing of ulcerative site he will return to compression stockings however this time we will increase from 20 to 30 mmHg to 30 to 40 mmHg versus application of juxta lite compression. Juxta lite compression wrap was applied for 02/16/2025, awaiting approval. Discussed follow-up with Dr. Mckee for potential procedure to aid in his venousinsufficiency. Discussed continued diet to aid in healing with adequate protein intake. Discussed signs and symptoms of infection. Discussed if he notices any increasing redness around the ulcerative site that is moved up the leg, purulentdrainage from the ulcerative site, increasing foul odor from the ulcerative site, or if he develops fever greater than 101 degree accompanied by nausea, vomiting, chills of these are signs of a progressing infection and he should report to the ED for IV antibiotics and further evaluation. He is understandingof this today. The following work up and care recommendations were made: Dressing: Abran to ulcerative bed with 3M compression wrap to the left lower extremity. Will continue compression stocking to right lower extremity Wash: Do not get wet. Use cast bag when showering to maintain compliance. Tissue growth optimization: Abran Offload: 3M compression wrap Vascular: Does have history of positive venous insufficiency/reflux. Will seek vascular assistance for potential procedure. Edema: 3M compression wrap and elevation of the lower extremities Infection: No signs of infection Pain: May take [id number] Tylenol Extra Strength for discomfort Host factors: Chronic venous insufficiency, chronic lower extremity edema, prolonged standing/activity, advanced age complicate healing. I answered all the patient's questions. To return to the wound healing center in [address] Ngael for courtesy visit or call sooner if the patient has any questions or concerns. 02/23/25 1122 Cosigner Signature (if applicable): CC: ~ Signed [facility]05-01-2025 History and physical note Author Merrill Burns [facility] Note Date/Time February 16, 2025 1:54pm [facility] [address] [place] [address] H&P Exam - Wound Care 02/16/25 1339 MR#: [id number] Acct: [id number] Name: WELLINGTON GONZALEZ Allison Rep #:[id number] : 1945 79 From: Merrill machado DPM PCP: Dr. Randa Joseph, DO Status:REG RCR Location: History of Present Illness Date of Service: 02/16/25 Chief Complaint: Left medial ankle wound History of Wound: Patient is a 79-year-old male who presents to the wound care center with recurring left lower extremity medial ankle wound. He has PMHx of recurring left lower extremity ulceration secondary to chronic venous insufficiency, history of DVT, obesity, JOSHUA, iron deficient anemia, delayed wound healing, and asthma. He states that he does have compression stockings and continues to wear them. He had been following in the wound care center for a deep ulceration to the medial aspect of the left lower extremity overlying theneurovascular bundle. He did go on to heal this ulceration as of 12/31/[address] Mckee for venogram. He has continued wearing compression stockings however states that while in the shower he did notice a scab of the left medial ankle and after showering applied antibiotic ointment and Band-Aid which later then the scab became soft and opened a small wound. He states that he did see his PCP who did obtain cultures and placed him on oral antibiotic. He was then referred to the wound care center for further follow-up. He denies any further trauma to the site. States that the specific site is recurrent withbreakdown of skin. Denies N/V/F/chills. No further complaints. COUNT INCLUDES THE [facility] Medical History JOSHUA (obstructive sleep apnea) History of back problems Fatigue Weight loss Lab test positive for detection of COVID-19 virus (~04/2020) Left femoral shaft fracture Osteopenia 2012 femur fracture [facility] DVT (deep venous thrombosis) Restless leg syndrome Iron deficiency anemia GERD (gastroesophageal reflux disease) Celiac disease Asthma Home Medications ?Medication ?Instructions ?Recorded ?Last Taken ?Type pantoprazole 40 mg tablet,delayed 40 mg PO QHS gerd 07/15/17 History release tamsulosin 0.4 mg capsule 0.4 mg PO QHS Enlarged prost ate 07/12/17 01/06/24 History ibuprofen 200 mg capsule 200 mg PO BID PRN Pain 09/10 Unknown History ergocalciferol (vitamin D2) 1,250 50,000 unit PO WE Unknown History mcg (50,000 unit) capsule benralizumab 30 mg/mL subcutaneous 30 mg subcut Q4W #1 mL 12/28/20 Unknown Rx syringe (Fasenra) levothyroxine 50 mcg tablet 100 mcg PO DAILY 03/21/22 01/06/24 History fluticasone propionate 50 2 spray NASAL BID PRN Conges tion 03/25/22 Unknown Rx mcg/actuation nasal #16 grams spray,suspension albuterol sulfate 90 mcg/actuation 1 - 2 puff inhalati on Q4H PRN PRN 09/22/23 Unknown Rx aerosol inhaler Sob &/Or Wheezing #8.5 grams pramipexole 1.5 mg tablet 1.5 mg PO DAILY 11/25/23 Unk nown History finasteride 5 mg tablet 5 mg PO DAILY 01/05/24 Unkno wn History bimatoprost 0.03 % eye drops 1 drp ophthalmic (eye) QD AY 10/04/24 Unknown History denosumab 60 mg/mL subcutaneous 60 mg subcut [id number] 10/04/24 Unknown History syringe (Prolia) diclofenac potassium 50 mg tablet 50 mg PO TID PRN brynn n 10/04/24 Unknown History fluticasone 232 mcg-salmeterol 14 1 inh inhalation BID #1 ea 10/04/24 Unknown Rx mcg/actuation breath activated powdr ferrous gluconate 324 mg (37.5 mg 324 mg PO BID #60 ta bs 12/07/24 Unknown Rx iron) tablet Allergy/AdvReac Type Severity Reaction Status Date / Time gluten AdvReac Other Verified 02/16/25 09:21 Family History Father prostate cancer Surgical History History of colonoscopy (~09/24/20) History of esophagogastroduodenoscopy (EGD) (~09/24/20) History of hernia repair History of spinal surgery (~2017) History of repair of hip fracture History of cholecystectomy colonoscopy Social History Smoking Status: Former smoker alcohol intake: never substance use type: does not use ROS Constitutional Constitutional: Denies chills, fatigue or fever(s) Eyes Eyes: Denies blurry vision, change in vision or double vision ENT HEENT: Denies dysphagia, nasal congestion or nasal discharge Cardiovascular Cardiovascular: Denies chest pain, claudication or palpitations Respiratory/Chest Respiratory/Chest: Denies cough, shortness of breath at rest or wheezing Gastrointestinal Gastrointestinal: Denies abdominal pain, constipation, diarrhea, nausea or vomiting Genitourinary Genitourinary: Denies dysuria, hematuria or urinary urgency Musculoskeletal Musculoskeletal: Denies joint pain, joint stiffness or joint swelling Integumentary Integumentary: Denies jaundice, lesions, pruritus or rash Neurologic Neurologic: Denies dizziness, numbness or seizures Psychiatric Psychiatric: Denies anxiety or depression Endocrine Endocrinology: Denies cold intolerance or heat intolerance Hematologic/Lymphatic Hematologic/Lymphatic: Denies easy bleeding or easy bruising Vital Signs Vital Signs Vital Signs: 02/16/25 09:21 Pulse Rate 67 Respiratory Rate 18 Blood Pressure 144/58 H Blood Pressure Mean 86 Blood Pressure Source Monitor Blood Pressure Position Semi-Fowlers Blood Pressure Location Right Arm Oxygen Delivery Method Room Air Physical Exam Const alert, oriented x3 and no apparent distress General Appearance: cooperative HEENT normocephalic Eyes General Eye: normal appearance of both eyes Neck General: normal visual inspection Lymph Lymphatic: no lymphadenopathy noted and no lymphedema noted Resp normal respiratory effort Cardio regular rate and regular rhythm Extremity Extremity Narrative: Left lower extremity: Vascular: DP and PT pulses weakly palpable. Capillary fill time to digits is 5 seconds. Normal temperature gradient. There is absent hair growth to digits noted. Dermatological: There is a full-thickness ulceration noted to the medial aspect of the lower extremity/ankle with mixed fibrogranular layer. Negative Stemmer sign left foot. There is evidence of stasis dermatitis with hyperpigmentation/hemosiderin deposition/staining of skin left lower extremity. There are varicosities noted of the lower extremity with mild lower extremity edema. There is no erythema or rubor of the left lower extremity. Musculoskeletal: Muscle strength 5 of 5 age-appropriate. There is decreased range of motion of the ankle joint dorsiflexion with knee extended without pain or crepitus. Decreased range of motion of the STJ, MTJ, and first MTPJ without pain or crepitus. There is pain to palpation of the left calf today with positive Gómez sign and Homans' sign. Skin no rashes or lesions noted General Skin Exam: venous stasis and dermatitis Neuro moves all extremities Debridement Note Debridement Note Wound debrided: Left medial lower extremity Laterality: Left Wound Grade/Stage: Cisneros stage I Type of Debridement: Excisional debridement Anesthesia Used: 5% Lidocaine Gel Depth: Down to and including healthy tissue and in the subcutaneous layer Percentage of wound debrided: 100 Instrument Used: 3mm curette Tissue Removed: Fibrous, devitalized subcutaneous, biofilm, slough Severity: Fat Layer Exposed Amount of bleeding with debridement: Mild Bleeding Controlled with: Compression and gauze Patient tolerated procedure: Patient tolerated procedure well Post-Debridement Measurements and Additional Note: Post-Debridement Measurements/Treatment - Nurse 1 - General Ulcer Assessment Start: 02/16/25 09:17 Freq: Status: Active Protocol: ANAYA Activity Type Activity Date Activity User E-sign Co-sign Detail Recorded Client Recorded Date Recorded By Document 02/16/25 09:21 DARLIN [id number] 02/16/25 09:29 KW 02/16/25 09:21 - Today's Visit Information Type of service Initial Visit Arrival Mode Ambulatory Patient Identification Verified (Name & Yes ) Vital Signs Pulse Rate (60-100) 67 Pulse Location Monitor Respiratory Rate (12-18) 18 Respiratory rate source Observation Oxygen Delivery Method Room Air Blood Pressure (90/60-120/80) 144/58 H Blood Pressure Mean 86 Source Monitor Position Semi-Fowlers Blood Pressure Location Right Arm History Since Last Visit- (Skip if this is Patient's initial visit) Left Footwear Regular Shoe Right Footwear Regular Shoe Pain Scale: 0-10 Numeric Is Patient Pain Free? Yes WC - Nurse 1 - General Ulcer Measurement Start: 02/16/25 09:17 Freq: Status: Active Protocol: Activity Type Activity Date Activity User E-sign Co-sign Detail Recorded Client Recorded Date Recorded By Document 02/16/25 09:21 [id number] 02/16/25 09:29 02/16/25 09:21 Wound Center Nurse 1 #1 L Med Ankle -Current Size (cm) - Length 1 -Current Size (cm) - Width 0.5 -Current Size (cm) - Depth 0.2 -Total Square Cm 0.5 -Date of Last Picture (Recall this 02/16/25 field) -Exudate Amt Small -Exudate Type Serosanguineous -Wound Margin Distinct, Outline Attached -Granulation Amt Large (67-100%) -Granulation Quality Brea -Necrosis Amt Medium (34-66%) -Necrotic Tissue Type Adherent Slough -Texture (Megan-wound Skin Appearance) Assessed -Moisture (Megan-wound Skin Appearance) Assessed -Color (Megan-wound Skin Appearance) Assessed -Temperature (Megan-wound Skin No Abnormality Appearance) (Pt Warm) -Tenderness on Palpation (Megan-wound No Skin Appearance) -Ulcer Cleansing Soap and Water -Foul Odor after Cleansing No -Anesthetic Used 5% Lidocaine Gel Left Calf (cm) 38 Left Ankle (cm) 23 WC - Nurse 2 - General Ulcer CM Notes Start: 02/16/25 09:17 Freq: Status: Active Protocol: Activity Type Activity Date Activity User E-sign Co-sign Detail Recorded Client Recorded Date Recorded By Document 02/16/25 09:35 [facility] [id number] 02/16/25 09:42 [facility] 02/16/25 09:35 Wound Center Nurse 2 #1 L Med Ankle -Time 09:35 -Correct Patient Yes -Correct Side, Site, Position Yes -Correct Procedure Yes -Procedure Performed Yes -Type of Procedure Debridement -Clinical Debridement Subcutaneous -Tissue Removed Subcutaneous -Post Debridement (cm) - Length 0.9 -Post Debridement (cm) - Width 0.5 -Post Debridement (cm) - Depth 0.1 -Total Square (Post) (cm) 0.45 -Area of Debridement (cm) - Length 0.9 -Area of Debridement (cm) - Width 0.5 -Total Square (Area) (cm) 0.45 -Tunneling No -Undermining/Tunneling No -Circular Undermining No -Wound/Ulcer Outcome Not Healed -Ulcer Cleansing Rinsed/ Irrigated with Saline -Foul Odor after Cleansing No -Bioengineered Tissue No -Bleeding Controlled with Pressure -Treatment Response Procedure Tolerated Well -Debridement - Subq, 1st 20sq cm Yes Pain Scale: 0-10 Numeric Is Patient Pain Free? Yes - Nurse 3 - General Ulcer D/C NN Start: 02/16/25 09:17 Freq: Status: Active Protocol: Activity Type Activity Date Activity User E-sign Co-sign Detail Recorded Client Recorded Date Recorded By Document 02/16/25 11:47 [id number] 02/16/25 11:48 02/16/25 11:47 Wound Care Center Nurse 3 #1 L Med Ankle -Ulcer Cleansing Rinsed/ Irrigated with Saline -Primary Dressing Applied Promogran Abran Matter -Primary Dressing Covered/Secured with Dry Gauze & Roll Gauze, Secured with Tape -Promogran Abran Matter 1 LLE -Multi-Layered Wrap Application Multi-Layer Comp - Left ($) -Multi-Layer Compression Left (Qty 1 applied) Pain Scale: 0-10 Numeric Is Patient Pain Free? Yes - Visit Discharge Discharge Condition Stable Ambulatory Status Ambulatory Transportation Private Auto Medication Reconcilliation completed & No provided to patient/care provider Clinical Summary of Care Provided Yes Assessment/Plan Assessment/Plan (1) Non-pressure chronic ulcer of left calf with fat layer exposed: CODE(S): L97.222 - Non-pressure chronic ulcer of left calf with fat layer exposed (2) Ulcer of extremity due to chronic venous insufficiency: CODE(S): L98.499 - Non-pressure chronic ulcer of skin of other sites with unspecified severity; I87.2 - Venous insufficiency (chronic) (peripheral) (3) Bilateral lower extremity edema: CODE(S): R60.0 - Localized edema PLAN: Plan Patient seen and evaluated Predebridement measurement 0.8 cm x 0.4 cm x 0.1 cm Ulceration site underwent debridement as noted in the clinical panel above. Postdebridement measurement 0.9 cm x 0.5 cm x 0.1 cm. Abran was applied to thewound bed. Due to positive calf pain he was referred for stat venous Doppler to evaluate for potential DVT. He did return to wound care center for nurse visit and stated he was negative however official reading has not been interpreted yet. Due to negative test result patient underwent compression wrap via 3M compression and was instructed to keep the dressings clean, dry, and intact. He was again instructed on continued elevation of the lower extremities to aid in edema control. Following healing of ulcerative site he will return to compression stockings however this time we will increase from 20 to 30 mmHg to 30 to 40 mmHg versus application of juxta lite compression. Juxta lite compression wrap was applied for today. Discussed follow-up with Dr. Mckee for potential procedure to aid in his venousinsufficiency. Discussed continued diet to aid in healing with adequate protein intake. Discussed signs and symptoms of infection. Discussed if he notices any increasing redness around the ulcerative site that is moved up the leg, purulentdrainage from the ulcerative site, increasing foul odor from the ulcerative site, or if he develops fever greater than 101 degree accompanied by nausea, vomiting, chills of these are signs of a progressing infection and he should report to the ED for IV antibiotics and further evaluation. He is understanding of this today. The following work up and care recommendations were made: Dressing: Abran to ulcerative bed with 3M compression wrap to the left lower extremity. Will continue compression stocking to right lower extremity Wash: Do not get wet. Use cast bag when showering to maintain compliance. Tissue growth optimization: Abran Offload: 3M compression wrap Vascular: Does have history of positive venous insufficiency/reflux. Will seek vascular assistance for potential procedure. Edema: 3M compression wrap and elevation of the lower extremities Infection: No signs of infection Pain: May take [id number] Tylenol Extra Strength for discomfort Host factors: Chronic venous insufficiency, chronic lower extremity edema, prolonged standing/activity, advanced age complicate healing. I answered all the patient's questions. To return to the wound healing center in 1 week or call sooner if the patient has any questions or concerns. 02/16/25 3144 <Electronically signed by Merrill Burns DPM> Cosigner Signature (if applicable): CC: ~ Signed [facility] Work Phone: [phone] History and physical note [facility] [address] [place] [address] H&P Exam - Wound Care 02/16/25 1339 MR#: [id number] Acct: [id number] Name: WELLINGTON GONZALEZ Rep #:[id number] : 1945 79 From: Merrill machado DPM PCP: Dr. Randa Joseph, DO Status:REG RCR Location: History of Present Illness Date of Service: 02/16/25 Chief Complaint: Left medial ankle wound History of Wound: Patient is a 79-year-old male who presents to the wound care center with recurring left lower extremity medial ankle wound. He has PMHx of recurring left lower extremity ulceration secondary to chronic venous insufficiency, history of DVT, obesity, JOSHUA, iron deficient anemia, delayed wound healing, and asthma. He states that he does have compression stockings and continues to wear them. He had been following in the wound care center for a deep ulceration to the medial aspect of the left lower extremity overlying theneurovascular bundle. He did go on to heal this ulceration as of 12/31/[address] Mckee for venogram. He has continued wearing compression stockings however states that while in the shower he did notice a scab of the left medial ankle and aftershowering applied antibiotic ointment and Band-Aid which later then the scab became soft and openeda small wound. He states that he did see his PCP who did obtain cultures and placed him on oral antibiotic. He was then referred to the wound care center for further follow-up. He denies any further trauma to the site. States that the specific site is recurrent withbreakdown of skin. Denies N/V/F/chills. No further complaints. COUNT INCLUDES THE [facility] Medical History JOSHUA (obstructive sleep apnea) History of back problems Fatigue Weight loss Lab test positive for detection of COVID-19 virus (~04/2020) Left femoral shaft fracture Osteopenia 2012 femur fracture [place] [facility] DVT (deep venous thrombosis) Restless leg syndrome Iron deficiency anemia GERD (gastroesophageal reflux disease) Celiac disease Asthma Home Medications ?Medication ?Instructions ?Recorded ?Last Taken ?Type pantoprazole 40 mg tablet,delayed 40 mg PO QHS gerd 07/15/17 History release tamsulosin 0.4 mg capsule 0.4 mg PO QHS Enlarged prost ate 07/12/17 01/06/24 History ibuprofen 200 mg capsule 200 mg PO BID PRN Pain 09/10 Unknown History ergocalciferol (vitamin D2) 1,250 50,000 unit PO WE Unknown History mcg (50,000 unit) capsule benralizumab 30 mg/mL subcutaneous 30 mg subcut Q4W #1 mL 12/28/20 Unknown Rx syringe (Fasenra) levothyroxine 50 mcg tablet 100 mcg PO DAILY 03/21/22 01/06/24 History fluticasone propionate 50 2 spray NASAL BID PRN Conges tion 03/25/22 Unknown Rx mcg/actuation nasal #16 grams spray,suspension albuterol sulfate 90 mcg/actuation 1 - 2 puff inhalati on Q4H PRN PRN 09/22/23 Unknown Rx aerosol inhaler Sob &/Or Wheezing #8.5 grams pramipexole 1.5 mg tablet 1.5 mg PO DAILY 11/25/23 Unk nown History finasteride 5 mg tablet 5 mg PO DAILY 01/05/24 Unkno wn History bimatoprost 0.03 % eye drops 1 drp ophthalmic (eye) QD AY 10/04/24 Unknown History denosumab 60 mg/mL subcutaneous 60 mg subcut [id number] 10/04/24 Unknown History syringe (Prolia) diclofenac potassium 50 mg tablet 50 mg PO TID PRN brynn n 10/04/24 Unknown History fluticasone 232 mcg-salmeterol 14 1 inh inhalation BID #1 ea 10/04/24 Unknown Rx mcg/actuation breath activated powdr ferrous gluconate 324 mg (37.5 mg 324 mg PO BID #60 ta bs 12/07/24 Unknown Rx iron) tablet Allergy/AdvReac Type Severity Reaction Status Date / Time gluten AdvReac Other Verified 02/16/25 09:21 Family History Father prostate cancer Surgical History History of colonoscopy (~09/24/20) History of esophagogastroduodenoscopy (EGD) (~09/24/20) History of hernia repair History of spinal surgery (~2017) History of repair of hip fracture History of cholecystectomy colonoscopy Social History Smoking Status: Former smoker alcohol intake: never substance use type: does not use ROS Constitutional Constitutional: Denies chills, fatigue or fever(s) Eyes Eyes: Denies blurry vision, change in vision or double vision ENT HEENT: Denies dysphagia, nasal congestion or nasal discharge Cardiovascular Cardiovascular: Denies chest pain, claudication or palpitations Respiratory/Chest Respiratory/Chest: Denies cough, shortness of breath at rest or wheezing Gastrointestinal Gastrointestinal: Denies abdominal pain, constipation, diarrhea, nausea or vomiting Genitourinary Genitourinary: Denies dysuria, hematuria or urinary urgency Musculoskeletal Musculoskeletal: Denies joint pain, joint stiffness or joint swelling Integumentary Integumentary: Denies jaundice, lesions, pruritus or rash Neurologic Neurologic: Denies dizziness, numbness or seizures Psychiatric Psychiatric: Denies anxiety or depression Endocrine Endocrinology: Denies cold intolerance or heat intolerance Hematologic/Lymphatic Hematologic/Lymphatic: Denies easy bleeding or easy bruising Vital Signs Vital Signs Vital Signs: 02/16/25 09:21 Pulse Rate 67 Respiratory Rate 18 Blood Pressure 144/58 H Blood Pressure Mean 86 Blood Pressure Source Monitor Blood Pressure Position Semi-Fowlers Blood Pressure Location Right Arm Oxygen Delivery Method Room Air Physical Exam Const alert, oriented x3 and no apparent distress General Appearance: cooperative HEENT normocephalic Eyes General Eye: normal appearance of both eyes Neck General: normal visual inspection Lymph Lymphatic: no lymphadenopathy noted and no lymphedema noted Resp normal respiratory effort Cardio regular rate and regular rhythm Extremity Extremity Narrative: Left lower extremity: Vascular: DP and PT pulses weakly palpable. Capillary fill time to digits is 5 seconds. Normal temperature gradient. There is absent hair growth to digits noted. Dermatological: There is a full-thickness ulceration noted to the medial aspect of the lower extremity/ankle with mixed fibrogranular layer. Negative Stemmer sign left foot. There is evidence of stasis dermatitis with hyperpigmentation/hemosiderin deposition/staining of skin left lower extremity. There are varicosities noted of the lower extremity with mild lower extremity edema. There is no erythema or rubor of the left lower extremity. Musculoskeletal: Muscle strength 5 of 5 age-appropriate. There is decreased range of motion of the ankle joint dorsiflexion with knee extended without pain or crepitus. Decreased range of motion of the STJ, MTJ, and first MTPJ without pain or crepitus. There is pain to palpation of the left calf today with positive Gómez sign and Homans' sign. Skin no rashes or lesions noted General Skin Exam: venous stasis and dermatitis Neuro moves all extremities Debridement Note Debridement Note Wound debrided: Left medial lower extremity Laterality: Left Wound Grade/Stage: Cisneros stage I Type of Debridement: Excisional debridement Anesthesia Used: 5% Lidocaine Gel Depth: Down to and including healthy tissue and in the subcutaneous layer Percentage of wound debrided: 100 Instrument Used: 3mm curette Tissue Removed: Fibrous, devitalized subcutaneous, biofilm, slough Severity: Fat Layer Exposed Amount of bleeding with debridement: Mild Bleeding Controlled with: Compression and gauze Patient tolerated procedure: Patient tolerated procedure well Post-Debridement Measurements and Additional Note: Post-Debridement Measurements/Treatment WC - Nurse 1 - General Ulcer Assessment Start: 02/16/25 09:17 Freq: Status: Active Protocol: ANAYA Activity Type Activity Date Activity User E-sign Co-sign Detail Recorded Client Recorded Date Recorded By Document 02/16/25 09:21 KW [id number] 02/16/25 09:29 KW 02/16/25 09:21 - Today's Visit Information Type of service Initial Visit Arrival Mode Ambulatory Patient Identification Verified (Name & Yes ) Vital Signs Pulse Rate (60-100) 67 Pulse Location Monitor Respiratory Rate (12-18) 18 Respiratory rate source Observation Oxygen Delivery Method Room Air Blood Pressure (90/60-120/80) 144/58 H Blood Pressure Mean 86 Source Monitor Position Semi-Fowlers Blood Pressure Location Right Arm History Since Last Visit- (Skip if this is Patient's initial visit) Left Footwear Regular Shoe Right Footwear Regular Shoe Pain Scale: 0-10 Numeric Is Patient Pain Free? Yes WC - Nurse 1 - General Ulcer Measurement Start: 02/16/25 09:17 Freq: Status: Active Protocol: Activity Type Activity Date Activity User E-sign Co-sign Detail Recorded Client Recorded Date Recorded By Document 02/16/25 09:21 [id number] 02/16/25 09:29 02/16/25 09:21 Wound Center Nurse 1 #1 L Med Ankle -Current Size (cm) - Length 1 -Current Size (cm) - Width 0.5 -Current Size (cm) - Depth 0.2 -Total Square Cm 0.5 -Date of Last Picture (Recall this 02/16/25 field) -Exudate Amt Small -Exudate Type Serosanguineous -Wound Margin Distinct, Outline Attached -Granulation Amt Large (67-100%) -Granulation Quality Brea -Necrosis Amt Medium (34-66%) -Necrotic Tissue Type Adherent Slough -Texture (Megan-wound Skin Appearance) Assessed -Moisture (Megan-wound Skin Appearance) Assessed -Color (Megan-wound Skin Appearance) Assessed -Temperature (Megan-wound Skin No Abnormality Appearance) (Pt Warm) -Tenderness on Palpation (Megan-wound No Skin Appearance) -Ulcer Cleansing Soap and Water -Foul Odor after Cleansing No -Anesthetic Used 5% Lidocaine Gel Left Calf (cm) 38 Left Ankle (cm) 23 - Nurse 2 - General Ulcer CM Notes Start: 02/16/25 09:17 Freq: Status: Active Protocol: Activity Type Activity Date Activity User E-sign Co-sign Detail Recorded Client Recorded Date Recorded By Document 02/16/25 09:35 [facility] [id number] 02/16/25 09:42 [facility] 02/16/25 09:35 Wound Center Nurse 2 #1 L Med Ankle -Time 09:35 -Correct Patient Yes -Correct Side, Site, Position Yes -Correct Procedure Yes -Procedure Performed Yes -Type of Procedure Debridement -Clinical Debridement Subcutaneous -Tissue Removed Subcutaneous -Post Debridement (cm) - Length 0.9 -Post Debridement (cm) - Width 0.5 -Post Debridement (cm) - Depth 0.1 -Total Square (Post) (cm) 0.45 -Area of Debridement (cm) - Length 0.9 -Area of Debridement (cm) - Width 0.5 -Total Square (Area) (cm) 0.45 -Tunneling No -Undermining/Tunneling No -Circular Undermining No -Wound/Ulcer Outcome Not Healed -Ulcer Cleansing Rinsed/ Irrigated with Saline -Foul Odor after Cleansing No -Bioengineered Tissue No -Bleeding Controlled with Pressure -Treatment Response Procedure Tolerated Well -Debridement - Subq, 1st 20sq cm Yes Pain Scale: 0-10 Numeric Is Patient Pain Free? Yes - Nurse 3 - General Ulcer D/C NN Start: 02/16/25 09:17 Freq: Status: Active Protocol: Activity Type Activity Date Activity User E-sign Co-sign Detail Recorded Client Recorded Date Recorded By Document 02/16/25 11:47 RB [id number] 02/16/25 11:48 RB 02/16/25 11:47 Wound Care Center Nurse 3 #1 L Med Ankle -Ulcer Cleansing Rinsed/ Irrigated with Saline -Primary Dressing Applied Promogran Abran Matter -Primary Dressing Covered/Secured with Dry Gauze & Roll Gauze, Secured with Tape -Promogran Abran Matter 1 LLE -Multi-Layered Wrap Application Multi-Layer Comp - Left ($) -Multi-Layer Compression Left (Qty 1 applied) Pain Scale: 0-10 Numeric Is Patient Pain Free? Yes WC - Visit Discharge Discharge Condition Stable Ambulatory Status Ambulatory Transportation Private Auto Medication Reconcilliation completed & No provided to patient/care provider Clinical Summary of Care Provided Yes Assessment/Plan Assessment/Plan (1) Non-pressure chronic ulcer of left calf with fat layer exposed: CODE(S): L97.222 - Non-pressure chronic ulcer of left calf with fat layer exposed (2) Ulcer of extremity due to chronic venous insufficiency: CODE(S): L98.499 - Non-pressure chronic ulcer of skin of other sites with unspecified severity; I87.2 - Venous insufficiency (chronic) (peripheral) (3) Bilateral lower extremity edema: CODE(S): R60.0 - Localized edema PLAN: Plan Patient seen and evaluated Predebridement measurement 0.8 cm x 0.4 cm x 0.1 cm Ulceration site underwent debridement as noted in the clinical panel above. Postdebridement measurement 0.9 cm x 0.5 cm x 0.1 cm. Abran was applied to thewound bed. Due to positive calf pain he was referred for stat venous Doppler to evaluate for potential DVT. He did return to wound care center for nurse visit and stated he was negative however official reading has not been interpreted yet. Due to negative test result patient underwent compression wrap via3M compression and was instructed to keep the dressings clean, dry, and intact. He was again instructed on continued elevation of the lower extremities to aid in edema control. Following healing of ulcerative site he will return to compression stockings however this time we will increase from 20 to 30 mmHg to 30 to 40 mmHg versus application of juxta lite compression. Juxta lite compression wrap was applied for today. Discussed follow-up with Dr. Mckee for potential procedure to aid in his venousinsufficiency. Discussed continued diet to aid in healing with adequate protein intake. Discussed signs and symptoms of infection. Discussed if he notices any increasing redness around the ulcerative site that is moved up the leg, purulentdrainage from the ulcerative site, increasing foul odor from the ulcerative site, or if he develops fever greater than 101 degree accompanied by nausea, vomiting, chills of these are signs of a progressing infection and he should report to the ED for IV antibiotics and further evaluation. He is understanding of this today. The following work up and care recommendations were made: Dressing: Abran to ulcerative bed with 3M compression wrap to the left lower extremity. Will continue compression stocking to right lower extremity Wash: Do not get wet. Use cast bag when showering to maintain compliance. Tissue growth optimization: Abran Offload: 3M compression wrap Vascular: Does have history of positive venous insufficiency/reflux. Will seek vascular assistance for potential procedure. Edema: 3M compression wrap and elevation of the lower extremities Infection: No signs of infection Pain: May take [id number] Tylenol Extra Strength for discomfort Host factors: Chronic venous insufficiency, chronic lower extremity edema, prolonged standing/activity, advanced age complicate healing. I answered all the patient's questions. To return to the wound healing center in 1 week or call sooner if the patient has any questions or concerns. 02/16/25 1354 Cosigner Signature (if applicable): CC: ~ Signed [facility]03-12-2025 Discharge summary Author Joan Muñoz [facility] Note Date/Time December 28, 2024 10: 11am [facility] Physical Therapy [facility] [address] [place] [address]. [address] [place] [address] / REHABILITATION SERVICES DISCHARGE SUMMARY MR#: [id number] Acct: [id number] Name: KARSONISELAWELLINGTON Rep #: [id number] : 1945 79 From: Joan Renteria Referring Dr.: Dr. Randa Joseph DO Status: REG RCR Insurance: MEDICARE PART A B [employer] [facility] Discharge Summary D/C summary: It has been my pleasure to treat WELLINGTON GONZALEZ referred by Dr. Randa Joseph DO, with the diagnosis of Pain in shoulder for a total of 19 visit(s). Discharge Date: 12/28/24 Please see the following information for a summary of their discharge status. Subjective Subjective: Pt reports that he is about 60% better. His pain is not gone. He reports that he thinks it is the muscles. He reports that he thinks about his posture a lot more than he used too. Pain R shoulder: Pain Intensity (Out of 10): 3 L shoulder pain: Pain Intensity (Out of 10): 1 neck pain: Pain Intensity (Out of 10): 3 Overall Improvement % Improvement: 60 Objective Objective/Function: Posture: pt has better posture throughout treatment sessions and reports that he is more aware of his posture UE AROM: R shoulder flex 142 and L 139 (increase pain) R shoulder ABD 155 and L 141 (increase pain) R shoulder ER 55 and L 40 UE MMT: R shoulder flex 14 and L 13.2 R shoulder ABD 12.9 and L 9.6 R shoulder ER 10.7 and L 7.9 R shoulder IR 11.6 and L 6.6) Goals Goal 1:: I HEP Goal 2:: Increase L shoulder AROM (at the time of the eval: UE AROM: R shoulder flex 142 and L 118 (increase pain) R shoulder ABD 140 and L 120 (increase pain) R shoulder ER 55 and L 40 R shoulder IR T12 and L T12) Goal Progress: Goal Met Goal 3:: Increase L shoulder strength (at the time of the eval: UE MMT: R shoulder flex 8.5 and L 6.1 R shoulder ABD 8 and L 4.7 R shoulder ER 10.7 and L 5.9 R shoulder IR 11.6 and L 6.6) Goal Progress: Goal Met Goal 4:: Sit with upright posture during treatment sessions Goal Progress: Progressing Plan Plan: DC PT to [facility] and back to Dr about his neck. D/C Information Discharge Comments: DC PT to [facility] d/c sentence: If there are questions or concerns regarding this patient's physical therapy, please feel free to call me at [phone]. Thank you for the referral of thispatient. Sincerely, DEB Villalobos Balance/Gait/Functional tests Balance/Special Test Scores Quick DASH Score: 25.0000 Improvement % Improvement: 60 <Electronically signed by Joan Muñoz MPT> 12/28/24 1011 CC: Dr. Randa Joseph DO ~ Signed [facility] Work Phone: 1(696) 377-505803-12-2025 Discharge summary [facility] Physical Therapy [facility] [address] [place] [address] / REHABILITATION SERVICES DISCHARGE SUMMARY MR#: [id number] Acct: [id number] Name: WLELINGTON GONZALEZ Rep #: [id number] : 1945 79 From: Joan Muñoz MP T Referring Dr.: Dr. Randa Joseph DO Status: REG RCR Insurance: MEDICARE PART A B [employer] [facility] Discharge Summary D/C summary: It has been my pleasure to treat WELLINGTON GONZALEZ referred by Dr. Randa Joseph DO, with the diagnosis of Pain in shoulder for a total of 19 visit(s). Discharge Date: 12/28/24 Please see the following information for a summary of their discharge status. Subjective Subjective: Pt reports that he is about 60% better. His pain is not gone. He reports that he thinksit is the muscles. He reports that he thinks about his posture a lot more than he used too. Pain R shoulder: Pain Intensity (Out of 10): 3 L shoulder pain: Pain Intensity (Out of 10): 1 neck pain: Pain Intensity (Out of 10): 3 Overall Improvement % Improvement: 60 Objective Objective/Function: Posture: pt has better posture throughout treatment sessions and reports that he is more aware of his posture UE AROM: R shoulder flex 142 and L 139 (increase pain) R shoulder ABD 155 and L 141 (increase pain) R shoulder ER 55 and L 40 UE MMT: R shoulder flex 14 and L 13.2 R shoulder ABD 12.9 and L 9.6 R shoulder ER 10.7 and L 7.9 R shoulder IR 11.6 and L 6.6) Goals Goal 1:: I HEP Goal 2:: Increase L shoulder AROM (at the time of the eval: UE AROM: R shoulder flex 142 and L 118 (increase pain) R shoulder ABD 140 and L 120 (increase pain) R shoulder ER 55 and L 40 R shoulder IR T12 and L T12) Goal Progress: Goal Met Goal 3:: Increase L shoulder strength (at the time of the eval: UE MMT: R shoulder flex 8.5 and L 6.1 R shoulder ABD 8 and L 4.7 R shoulder ER 10.7 and L 5.9 R shoulder IR 11.6 and L 6.6) Goal Progress: Goal Met Goal 4:: Sit with upright posture during treatment sessions Goal Progress: Progressing Plan Plan: DC PT to [facility] and back to Dr about his neck. D/C Information Discharge Comments: DC PT to [facility]P d/c sentence: If there are questions or concerns regarding this patient's physical therapy, please feel free to call me at [phone]. Thank you for the referral of thispatient. Sincerely, Joan Muñoz, MPT Balance/Gait/Functional tests Balance/Special Test Scores Quick DASH Score: 25.0000 Improvement % Improvement: 60 12/28/24 1011 CC: Dr. Randa Joseph, DO ~ Signed [facility]02-19-2025 Evaluation note* Diagnosis Onset Date Resolution Status Admit Date Solitary pulmonary nodule acute December 07, 2024 10:00am JOSHUA (obstructive sleep apnea) chroni c December 07, 2024 10:00am Severe persistent asthma, uncomplicated chronic December 07 025 10:00am Bilateral lower extremity edema acute February 27, 2025 1 1:00am Ulcer of extremity due to chronic venous insufficiency acute February 27, 2025 11:00am 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 February 27, 2025 1 1:00am [facility] Work Phone: 1(228) 234-153402-19-2025 Evaluation note* Diagnosis Onset Date Resolution Status Admit Date Solitary pulmonary nodule acute December 07, 2024 10:00am JOSHUA (obstructive sleep apnea) chroni c February 19th, 2025 10:00am Severe persistent asthma, uncomplicated chronic December 07 025 10:00am Bilateral lower extremity edema acut e March 01, 2025 9:17am 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 March 01, 2025 9 :17am Venous insufficiency (chroni c) (peripheral) chronic March 01, 2025 9 :17am Bilateral lower extremity edema acut e March 14, 2025 9:51am History of cholecystectomy acute March 14, 2025 9:51am History of hernia repair acute March 14, 2025 9:51am History of repair of hip fracture acute March 14, 2025 9 :51am History of spinal surgery acute March 14, 2025 9:51am Non-pressure chronic ulcer o f ankle with fat layer exposed acute March 14, 2025 9:51am Ulcer of extremity due to chronic venous insufficiency acute March 14, 2025 9:51am 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 acute March 14, 2025 9:51am Asthma chronic March 14, 2025 9:51am GERD (gastroesophageal reflu x disease) chronic March 14, 2025 9 :51am JOSHUA (obstructive sleep apnea) chroni c March 14, 2025 9:51am Bilateral lower extremity edema acut e March 16, 2025 9:00am Ulcer of extremity due to chronic venous insufficiency acute March 16, 2025 9:00am 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 March 16, 2025 9 :00am [facility] Work Phone: 1([phone]) 406-703202-19-2025 Evaluation note* Diagnosis Onset Date Resolution Status Admit Date Solitary pulmonary nodule acute December 07, 2024 10:00am JOSHUA (obstructive sleep apnea) chroni c December 07, 2024 10:00am Severe persistent asthma, uncomplicated chronic December 07 025 10:00am Bilateral lower extremity edema acut e March 01, 2025 9:17am 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 March 01, 2025 9 :17am Venous insufficiency (chroni c) (peripheral) chronic March 01, 2025 9 :17am Bilateral lower extremity edema acut e March 14, 2025 9:51am History of cholecystectomy acute March 14, 2025 9:51am History of hernia repair acute March 14, 2025 9:51am History of repair of hip fracture acute March 14, 2025 9 :51am History of spinal surgery acute March 14, 2025 9:51am Non-pressure chronic ulcer o f ankle with fat layer exposed acute March 14, 2025 9:51am Ulcer of extremity due to chronic venous insufficiency acute March 14, 2025 9:51am 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 acute March 14, 2025 9:51am Asthma chronic March 14, 2025 9:51am GERD (gastroesophageal reflu x disease) chronic March 14, 2025 9 :51am JOSHUA (obstructive sleep apnea) chroni c March 14, 2025 9:51am Bilateral lower extremity edema acut e March 16, 2025 9:00am Ulcer of extremity due to chronic venous insufficiency acute March 16, 2025 9:00am 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 March 16, 2025 9 :00am Bilateral lower extremity edema acut e March 27, 2025 10:45am 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 acute March 27, 2025 10:45am 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 March 27, 2025 1 0:45am Venous insufficiency (chroni c) (peripheral) chronic March 27, 2025 1 0:45am Solitary pulmonary nodule acute March 28, 2025 9:21am JOSHUA (obstructive sleep apnea) chroni c March 28, 2025 9:21am Severe persistent asthma, uncomplicated chronic March 28, 2025 9:21am [facility] Work Phone: 1(389) 583-482202-19-2025 Evaluation note* Diagnosis Onset Date Resolution Status Admit Date Solitary pulmonary nodule acute December 07, 2024 10:00am JOSHUA (obstructive sleep apnea) chroni c December 07, 2024 10:00am Severe persistent asthma, uncomplicated chronic December 07, 025 10:00am Bilateral lower extremity edema acut e March 01, 2025 9:17am 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 March 01, 2025 9 :17am Venous insufficiency (chroni c) (peripheral) chronic March 01, 2025 9 :17am Bilateral lower extremity edema acut e March 14, 2025 9:51am History of cholecystectomy acute March 14, 2025 9:51am History of hernia repair acute March 14, 2025 9:51am History of repair of hip fracture acute March 14, 2025 9 :51am History of spinal surgery acute March 14, 2025 9:51am Non-pressure chronic ulcer o f ankle with fat layer exposed acute March 14, 2025 9:51am Ulcer of extremity due to chronic venous insufficiency acute March 14, 2025 9:51am 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 acute March 14, 2025 9:51am Asthma chronic March 14, 2025 9:51am GERD (gastroesophageal reflu x disease) chronic March 14, 2025 9 :51am JOSHUA (obstructive sleep apnea) chroni c March 14, 2025 9:51am Bilateral lower extremity edema acut e March 16, 2025 9:00am Ulcer of extremity due to chronic venous insufficiency acute March 16, 2025 9:00am 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 March 16, 2025 9 :00am Bilateral lower extremity edema acut e March 27, 2025 10:45am 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 acute March 27, 2025 10:45am 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 March 27, 2025 1 0:45am Venous insufficiency (chroni c) (peripheral) chronic March 27, 2025 1 0:45am Solitary pulmonary nodule acute March 28, 2025 9:21am JOSHUA (obstructive sleep apnea) chroni c March 28, 2025 9:21am Restless leg syndrome chronic Mar 9:21am Severe persistent asthma, uncomplicated chronic March 28, 2025 9:21am [facility] Work Phone: 1(673) 947-228412-17-2024 Evaluation note* Diagnosis Onset Date Resolution Status Admit Date JOSHUA (obstructive sleep apnea) chroni c October 04, 2024 9:32am Severe persistent asthma, uncomplicated chronic October 04, 2 024 9:32am Solitary pulmonary nodule acute December 07, 2024 10:00am JOSHUA (obstructive sleep apnea) chroni c December 07, 2024 10:00am Severe persistent asthma, uncomplicated chronic December 07 025 10:00am [facility] Work Phone: [phone]) 202-898810-21-2024 NoteHNO ID: [id number] Author: JAQUI FELTON APRN.PROVIDER ENROLLMENT SPECIALIST Service: ? Author Type: Nurse Practitioner Type: Progress Notes Filed: 08/08/2024 12:48 Note Text: Subjective HPI HPI Wellington Gonzalez is a 79 year old male who presents today for CC of right shoulder injury. This started 1.5 weeks ago. Has tried otc medication, also had shoulder steroid injection few days before injury. Symptoms are worsened by rom. Denies new numbness/tingling of right arm. 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 REPAIR INCISIONAL HERNIA with mesh, ventral REPAIR ING HERNIA,5+Y/O,REDUCIBL Left 09/10/2022 RPR 1ST INGUN HRNA AGE 5 YRS/> REDUCIBLE 04/10/2014 Right ALLERGIES Wheat Gluten and Adhesive MEDICATIONS levothyroxine (SYNTHROID) 88 mcg tablet Take 88 mcg by mouth once daily. fluticasone-salmeterol (ADVAIR DISKUS) 100-50 mcg/dose inhaler Inhale 1 Puff as instructed twice daily. latanoprost (XALATAN) 0.005 % ophthalmic solution Use in both eyes once daily. benralizumab (FASENRA) 30 mg/mL injection Inject subcutaneously [...] TAKE 1 TABLET BY MOUTH ONCE DAILY. cyclobenzaprine (FLEXERIL) 10 mg tablet TAKE 1/2 TO 1 TABLET BY MOUTH 3 TIMES DAILY NEEDED FOR SPASMS (Patient not taking: Reported on 08/08/2024) fluticasone (FLONASE) 50 mcg/actuation nasal spray Use 2 Sprays in each nostril once daily. (Patient not taking: Reported on 03/08/2024) albuterol HFA (PROAIR HFA) 90 mcg/actuation inhaler Inhale 2 Puffs as instructed every 6 hours as needed. (Patient not taking: Reported on 08/08/2024) FAMILY HISTORY Problem Relation Age of Onset [...] Social History Tobacco Use Smoking status: Former Current packs/day: 0.00 Types: Cigarettes Quit date: 10/19/1967 Years since quittin.8 Smokeless tobacco: Never Vaping Use Vaping status: Never Used Substance Use Topics Alcohol use: No Drug use: No ROS Objective Blood pressure 100/60, pulse 76, temperature 36.4 ?C (97.6 ?F), resp. rate 21, weight 99.9 kg (220 lb 3.8 oz), SpO2 98%. Physical Exam Constitutional: General: He is not in acute distress. Appearance: He is not toxic-appearing or diaphoretic. HENT: Head: Normocephalic and atraumatic. Pulmonary: Effort: Pulmonary effort is normal. No accessory muscle usage or respiratory distress. Musculoskeletal: Arms: Neurological: Mental Status: He is alert and oriented to person, place, and time. ASSESSMENT/PLAN: 1. Injury of right shoulder, initial encounter - ICD9: 959.2, ICD10: S49.91XA -no bony abnormality noted on xray -Rest, Ice, Compression, Elevation discussed -discussed use of ibuprofen -follow up with primary care if symptoms persist/worsen in 10-14 days - XR SHOULDER GENERAL 3V OR MORE AP/TR (more content not included)...[facility]10-21-2024 History of Present illness Narrative* Jaqui Felton APRN.PROVIDER ENROLLMENT SPECIALIST - 08/08/2024 12:44 PM EDT Images from the original note were not included. Subjective HPI HPI Wellington Gonzalez is a 79 year old male who presents today for CC of right shoulder injury. This started 1.5 weeks ago. Has tried otc medication, also had shoulder steroid injection few days before injury. Symptoms are worsened by rom. Denies new numbness/tingling of right arm. 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 REPAIR INCISIONAL HERNIA with mesh, ventral REPAIR ING HERNIA,5+Y/O,REDUCIBL Left 09/10/2022 RPR 1ST INGUN HRNA AGE 5 YRS/> REDUCIBLE 04/10/2014 Right ALLERGIES Wheat Gluten and Adhesive MEDICATIONS levothyroxine (SYNTHROID) 88 mcg tablet Take 88 mcg by mouth once daily. fluticasone-salmeterol (ADVAIR DISKUS) 100-50 mcg/dose inhaler Inhale 1 Puff as instructed twice daily. latanoprost (XALATAN) 0.005 % ophthalmic solution Use in both eyes once daily. benralizumab (FASENRA) 30 mg/mL injection Inject subcutaneously [...] TAKE 1 TABLET BY MOUTH ONCE DAILY. cyclobenzaprine (FLEXERIL) 10 mg tablet TAKE 1/2 TO 1 TABLET BY MOUTH 3 TIMES DAILY NEEDED FOR SPASMS (Patient not taking: Reported on 08/08/2024) fluticasone (FLONASE) 50 mcg/actuation nasal spray Use 2 Sprays in each nostril once daily. (Patient not taking: Reported on 03/08/2024) albuterol HFA (PROAIR HFA) 90 mcg/actuation inhaler Inhale 2 Puffs as instructed every 6 hours as needed. (Patient not taking: Reported on 08/08/2024) FAMILY HISTORY Problem Relation Age of Onset [...] Social History Tobacco Use Smoking status: Former Current packs/day: 0.00 Types: Cigarettes Quit date: 10/19/1967 Years since quittin.8 Smokeless tobacco: Never Vaping Use Vaping status: Never Used Substance Use Topics Alcohol use: No Drug use: No ROS Objective Blood pressure 100/60, pulse 76, temperature 36.4 C (97.6 F), resp. rate 21, weight 99.9 kg (220 lb3.8 oz), SpO2 98%. Physical Exam Constitutional: General: He is not in acute distress. Appearance: He is not toxic-appearing or diaphoretic. HENT: Head: Normocephalic and atraumatic. Pulmonary: Effort: Pulmonary effort is normal. No accessory muscle usage or respiratory distress. Musculoskeletal: Arms: Neurological: Mental Status: He is alert and oriented to person, place, and time. ASSESSMENT/PLAN: 1. Injury of right shoulder, initial encounter - ICD9: 959.2, ICD10: S49.91XA -no bony abnormality noted on xray -Rest, Ice, Compression, Elevation discussed -discussed use of ibuprofen -follow up with primary care if symptoms persist/worsen in 10-14 days - XR SHOULDER GENERAL 3V OR MORE AP/TRUE AP/OTHER RIGHT IMPRESSION: No radiographic evidence of acute osseous injury Dictated by : MD Jaqui CHAVARRIA APRN.JASON [facility] History of Present illness Narrative* Casey Mckeon RT(R) - 08/08/2024 11:50 AM EDT Radiology Service Progress Note PATIENT NAME: Wellington Gonzalez DATE OF SERVICE: August 08, 2024 TIME: 11:48 AM PATIENT IDENTITY VERIFICATION COMPLETED USING TWO (2) IDENTIFIERS: Name and Date of confirmedby patient verbally. FALL SCREENING: Has the patient had 2 falls in the last year or 1 fall with injury or currently using an Ambulatory Assistive Device (Walker, Cane, Wheelchair, Crutches, etc.)? No PATIENT GENDER DATA: Male PATIENT RELEVANT IMPLANT DATA REVIEWED: Not Applicable PATIENT PRESENTS WITH AN IMPLANTABLE OR ATTACHED FELT HANGER: No RADIOLOGY DEPARTMENT: General X-ray: Exam(s) Completed: Upper Extremity X- Ray(s): Shoulder, AP / TRUE AP / AXILLARY right PERIPHERAL IV DATA: Not applicable SIGNED BY: RT Sy(Gavino) August 08, 2024 11:48 AM documented in [facility]24 NoteHNO ID: [id number] Author: CASEY MCKEON RT(R) Service: Radiology Author Type: Technologist Type: Progress Notes Filed: 08/08/2024 11:59 Note Text: Radiology Service Progress Note PATIENT NAME: Wellington Gonzalez DATE OF SERVICE: August 08, 2024 TIME: 11:48 AM PATIENT IDENTITY VERIFICATION COMPLETED USING TWO (2) IDENTIFIERS: Name and Date of confirmed by patient verbally. FALL SCREENING: Has the patient had 2 falls in the last year or 1 fall with injury or currently using an Ambulatory Assistive Device (Walker, Cane, Wheelchair, Crutches, etc.)? No PATIENT GENDER DATA: Male PATIENT RELEVANT IMPLANT DATA REVIEWED: Not Applicable PATIENT PRESENTS WITH AN IMPLANTABLE OR ATTACHED FELT HANGER: No RADIOLOGY DEPARTMENT: General X-ray: Exam(s) Completed: Upper Extremity X-Ray(s): Shoulder, AP / TRUE AP / AXILLARY right PERIPHERAL IV DATA: Not applicable SIGNED BY: PATIENCE Dan) August 08, 2024 11:[address] [facility]05-21-2024 NoteHNO ID: [id number] Author: YAEL NAIR APRN.PROVIDER ENROLLMENT SPECIALIST Service: ? Author Type: Nurse Practitioner Type: Progress Notes Filed: 03/08/2024 15:20 Note Text: This note was created using NoteWriter. Subjective Wellington Gonzalez is a 79 year old male. 79 year old male with PMH RLS, CAD, asthma, JOSHUA, celiac, GERD, and history of venous insufficiency presents for toenail complaints. Acute onset this past week Right great toe States his toenail was snagged on a sock Now is almost completely off. 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 No language specialist was used. Pain (foot) Pain location: right great toe. This is a new problem. The current episode started in the past 7 days. There has been a history of trauma. The problem occurs constantly. The problem has been gradually worsening. The pain is at a severity of 5/10. The pain is moderate. Pertinent negatives include no fever, inability to bear weight, itching, joint locking, joint swelling, limited range of motion, numbness, stiffness or tingling. The symptoms are aggravated by activity and standing. He has tried nothing for the symptoms. The treatment provided no relief. Family history does not include gout or rheumatoid arthritis. There is no history of diabetes, gout, osteoarthritis or rheumatoid arthritis. 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 REPAIR INCISIONAL HERNIA with mesh, ventral REPAIR ING HERNIA,5+Y/O,REDUCIBL Left 09/10/2022 RPR 1ST INGUN HRNA AGE 6 YRS/> REDUCIBLE 04/10/2014 Right ALLERGIES Wheat Gluten and Adhesive MEDICATIONS cyclobenzaprine (FLEXERIL) 10 mg tablet TAKE 1/2 TO 1 TABLET BY MOUTH 3 TIMES DAILY NEEDED FOR SPASMS levothyroxine (SYNTHROID) 88 mcg tablet Take 88 mcg by mouth once daily. fluticasone-salmeterol (ADVAIR DISKUS) 100-50 mcg/dose inhaler Inhale 1 Puff as instructed twice daily. latanoprost (XALATAN) 0.005 % ophthalmic solution Use in both eyes once daily. benralizumab (FASENRA) 30 mg/mL injection Inject subcutaneously [...] TAKE 1 TABLET BY MOUTH ONCE DAILY. albuterol HFA (PROAIR HFA) 90 mcg/actuation inhaler Inhale 2 Puffs as instructed every 6 hours as needed. fluticasone (FLONASE) 50 mcg/actuation nasal spray Use 2 Sprays in each nostril once daily. (Patient not taking: Reported on 03/08/2024) FAMILY HISTORY Problem Relation Age of Onset [...] Types: Cigarettes Quit date: 10/19/1967 Years since quittin.4 Smokeless tobacco: Never Vaping Use Vaping Use: Never used Substance Use Topics Alcohol use: No Drug use: No Review of Systems Constitutional: Negative for fever. Eyes: Negative for pain, dischar (more content not included)...[facility]05-21-[facility] History of Present illness Narrative* Yael Nair APRN.PROVIDER ENROLLMENT SPECIALIST - 03/08/2024 3:00 PM EDT This note was created using Kickboard. Subjective Wellington Gonzalez is a 79 year old male. 79 year old male with PMH RLS, CAD, asthma, JOSHUA, celiac, GERD, and history of venous insufficiency presents for toenail complaints. Acute onset this past week Right great toe States his toenail was snagged on a sock Now is almost completely off. 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 No language specialist was used. Pain (foot) Pain location: right great toe. This is a new problem. The current episode started in the past 7 days. There has been a history of trauma. The problem occurs constantly. The problem has been gradually worsening. The pain is at a severity of 5/10. The pain is moderate. Pertinent negatives include nofever, inability to bear weight, itching, joint locking, joint swelling, limited range of motion, numbness, stiffness or tingling. The symptoms are aggravated by activity and standing. He has tried nothing for the symptoms. The treatment provided no relief. Family history does not include gout or rheumatoid arthritis. There is no history of diabetes, gout, osteoarthritis or rheumatoid arthritis. 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 REPAIR INCISIONAL HERNIA with mesh, ventral REPAIR ING HERNIA,5+Y/O,REDUCIBL Left 09/10/2022 RPR 1ST INGUN HRNA AGE 6 YRS/> REDUCIBLE 04/10/2014 Right ALLERGIES Wheat Gluten and Adhesive MEDICATIONS cyclobenzaprine (FLEXERIL) 10 mg tablet TAKE 1/2 TO 1 TABLET BY MOUTH 3 TIMES DAILY NEEDED FOR SPASMS levothyroxine (SYNTHROID) 88 mcg tablet Take 88 mcg by mouth once daily. fluticasone-salmeterol (ADVAIR DISKUS) 100-50 mcg/dose inhaler Inhale 1 Puff as instructed twice daily. latanoprost (XALATAN) 0.005 % ophthalmic solution Use in both eyes once daily. benralizumab (FASENRA) 30 mg/mL injection Inject subcutaneously [...] TAKE 1 TABLET BY MOUTH ONCE DAILY. albuterol HFA (PROAIR HFA) 90 mcg/actuation inhaler Inhale 2 Puffs as instructed every 6 hours as needed. fluticasone (FLONASE) 50 mcg/actuation nasal spray Use 2 Sprays in each nostril once daily. (Patient not taking: Reported on 03/08/2024) FAMILY HISTORY Problem Relation Age of Onset [...] Types: Cigarettes Quit date: 10/19/1967 Years since quittin.4 Smokeless tobacco: Never Vaping Use Vaping Use: Never used Substance Use Topics Alcohol use: No Drug use: No Review of Systems Constitutional: Negative for fever. Eyes: Negative for pain, discharge and itching. Cardiovascular: Negative for chest pain, palpitations and leg swelling. Gastrointestinal: Negative for abdominal pain. Musculoskeletal: Negative for gout and stiffness. Right great toe Skin: Negative for color change, itching, pallor, rash and wound. Neurological: Negative for tingling and numbness. Hematological: Negative for adenopathy. Does not bruise/bleed easily. Psychiatric/Behavioral: Negative for agitation and behavioral problems. Objective BP 120/60 Pulse 70 Temp 37 C (98.6 F) Resp 16 Wt 98.8 kg (217 lb 13 oz) SpO2 96% BMI 28.74 kg/m Physical Exam Vitals and nursing note reviewed. Constitutional: General: He is not in acute distress. Appearance: Normal appearance. He is not ill-appearing, toxic-appearing or diaphoretic. HENT: Head: Normocephalic and atraumatic. Right Ear: External ear normal. Left Ear: External ear normal. Nose: Nose normal. No congestion or rhinorrhea. Mouth/Throat: Mouth: Mucous membranes are moist. Pharynx: Oropharynx is clear. No oropharyngeal exudate or posterior oropharyngeal erythema. Eyes: General: Right eye: No discharge. Left eye: No discharge. Extraocular Movements: Extraocular movements intact. Conjunctiva/sclera: Conjunctivae normal. Pupils: Pupils are equal, round, and reactive to light. Cardiovascular: Rate and Rhythm: Normal rate and regular rhythm. Pulses: Normal pulses. Heart sounds: Normal heart sounds. No murmur heard. No friction rub. No gallop. Pulmonary: Effort: Pulmonary effort is normal. No respiratory distress. Breath sounds: Normal breath sounds. No stridor. No wheezing, rhonchi or rales. Chest: Chest wall: No tenderness. Abdominal: General: Abdomen is flat. There is no distension. Palpations: Abdomen is soft. There is no mass. Tenderness: There is no abdominal tenderness. There is no guarding or rebound. Hernia: No hernia is present. Musculoskeletal: General: Swelling, tenderness, deformity and signs of injury present. Normal range of motion. Cervical back: Normal range of motion and neck supple. No rigidity or tenderness. Right lower leg: No edema. Left lower leg: No edema. Comments: Right foot with venous insufficiency Thickened and yelllow toe nails Great toe nail not intact with cuticle bed Lateral aspect with mild erytehma No drainage Lymphadenopathy: Cervical: No cervical adenopathy. Skin: General: Skin is warm and dry. Capillary Refill: Capillary refill takes less than 2 seconds. Coloration: Skin is not jaundiced or pale. Findings: No bruising, lesion or rash. Neurological: General: No focal deficit present. Mental Status: He is alert and oriented to person, place, and time. Cranial Nerves: No cranial nerve deficit. Sensory: No sensory deficit. Motor: No weakness. Coordination: Coordination normal. Gait: Gait normal. Deep Tendon Reflexes: Reflexes normal. Psychiatric: Mood and Affect: Mood normal. Behavior: Behavior normal. Thought Content: Thought content normal. Assessment and Plan ASSESSMENT/PLAN: 1. Nail fungus - ICD9: 110.1, ICD10: B35.1 (primary diagnosis) 2. Injury of great toenail - ICD9: 959.7, ICD10: S99.929A Toenail not attached to cuticle Secondary to trauma Nails are thick and yellow and not amicable to trimming with our equipment Unable to get in with our podiatry until mid March Called [facility] no luck Patient declines providing dressing and post op shoe This can't wait any longer He remembers a asphalt patcher he has seen in past and going to their office now Yael Nair APRN.PROVIDER ENROLLMENT SPECIALIST [facility] this [facility] Progress note Author Merrill Burns [facility] February 04, 2024 9:46am Note Date/Time February 04, 2024 9:4 6am [facility] [address] [place] [address] Progress Note - Wound Care 02/04/24 0941 MR#: [id number] Acct: [id number] Name: WELLINGTON GONZALEZ Rep #:[id number] : 1945 78 From: Merrill machado DPM PCP: Dr. Randa Joseph, DO Status:REG RCR Location: History of Present Illness Date of Service: 02/04/24 Chief Complaint: Left medial ankle wound History of Wound: Patient is a 78-year-old male who presents to the wound care center with recurring left lower extremity medial ankle wound. He has PMHx of recurring left lower extremity ulceration secondary to chronic venous insufficiency, history of DVT, obesity, JOSHUA, iron deficient anemia, delayed wound healing, and asthma. He states that he does have compression stockings but his stockings are old. He had been following in the wound care center for adeep ulceration to the medial aspect of the left lower extremity overlying the neurovascular bundle. He did go on to heal this ulceration as of 12/31/[address] Mckee for venogram the following week. He states he did return to the compression stockings however feels that he has opened up with return of the ulceration at the medial left lower extremity. He denies trauma to the site. States that the specific site is recurrent with breakdown of skin. Denies N/V/F/chills. No further complaints. 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 States he has not had any recent drainage and the site continues to improve with continueduse of compression stocking. He returns today for reevaluation of the site priorto leaving for [place] for next 2 weeks to aid in selling his brother's condo. Denies constitutional symptoms. Denies further complaints. Objective Data Objective Data Vital Signs: Vital Signs Temp Pulse Resp BP O2 Del Method 98.5 F 65 20 H 140/67 H Room Air 02/04/24 08:35 02/04/24 08:35 02/04/24 08:35 02/04/24 08:35 01/28/24 08:29 Oxygen Delivery Method Room Air Physical Exam Const alert, oriented x3 and no apparent distress General Appearance: cooperative HEENT normocephalic Eyes General Eye: normal appearance of both eyes Neck General: normal visual inspection Lymph Lymphatic: no lymphadenopathy noted and no lymphedema noted Resp normal respiratory effort Cardio regular rate and regular rhythm Extremity normal capillary refill, no joint enlargement, no calf tenderness and no pedal edema Extremity Narrative: Vascular: DP and PT pulses weakly palpable. Capillary fill time to digits is 5 seconds. Normal temperature gradient. There is absent hair growth to digits noted. Dermatological: There is superficial ulceration noted to the medial aspect of the lower extremity/ankle with fresh epithelialization. Previous pinpoint area remains healed. Negative Stemmer sign left foot. There is evidence of stasis dermatitis with hyperpigmentation/hemosiderin deposition/staining of skin left lower extremity. There is also varicosities noted of the lower extremity. Musculoskeletal: Muscle strength 5 of 5 age-appropriate. Skin no rashes or lesions noted, skin turgor normal and no jaundice General Skin Exam: venous stasis and dermatitis Neuro moves all extremities Debridement Note Debridement Note Patient tolerated procedure: Patient tolerated procedure well Post-Debridement Measurements and Additional Note: Post-Debridement Measurements/Treatment - Nurse 1 - General Ulcer Assessment Start: 01/18/24 08:06 Freq: Status: Active Protocol: LA NENA.LOWEXT Activity Type Activity Date Activity User E-sign Co-sign Detail Recorded Client Recorded Date Recorded By Document 01/21/24 09:33 DL Desktop 01/21/24 09:39 DL Document 01/28/24 08:29 KW Desktop 01/28/24 08:37 KW Document 02/04/24 08:35 DL Desktop 02/04/24 08:39 DL 01/21/24 01/28/24 02/04/24 09:33 08:29 08:35 - Today's Visit Information Type of service Follow-up Visit Follow-up Visit Follow-up Visit (Physician/PROVIDER ENROLLMENT SPECIALIST (Physician/PROVIDER ENROLLMENT SPECIALIST (Physician/PROVIDER ENROLLMENT SPECIALIST ) ) ) Arrival Mode Ambulatory Ambulatory Ambulatory Transfer Assistance None None Patient Identification Verified (Name & Yes Yes Yes ) Patient Requires Transmission-Based No No Precautions Vital Signs Temperature (97.8 F-99.1 F) 98.5 F 97.4 F L 98.5 F Temperature Source Temporal Temporal Temporal Pulse Rate (60-100) 66 65 Pulse Location Monitor Monitor Respiratory Rate (12-18) 18 16 20 H Respiratory rate source Observation Observation Observation Oxygen Delivery Method Room Air Blood Pressure (90/60-120/80) 137/90 H 140/67 H Blood Pressure Mean (mm Hg) 105 91 Source Monitor Monitor Position Semi-Fowlers Blood Pressure Location Left Arm History Since Last Visit- (Skip if this is Patient's initial visit) Have you changed medications since your No No No last visit? Any new allergies or adverse reactions No No No Had a fall/change in ADL's that may No No No increase risk of falls Signs or symptoms of abuse and/or No No No neglect since last visit Have you been in the hospital since your No No No last visit? Has dressing in place as prescribed Yes Yes Yes Has compression in place as prescribed Yes Yes Yes Has offloadiing in place as prescribed N/A N/A N/A Experienced any changes in pain level or No No No management Left Footwear Regular Shoe Right Footwear Regular Shoe Pain Scale: 0-10 Numeric Is Patient Pain Free? Yes Yes Yes WC - Nurse 1 - General Ulcer Measurement Start: 01/18/24 08:06 Freq: Status: Active Protocol: Activity Type Activity Date Activity User E-sign Co-sign Detail Recorded Client Recorded Date Recorded By Document 01/21/24 09:33 DL Desktop 01/21/24 09:39 DL Document 01/28/24 08:29 KW Desktop 01/28/24 08:37 KW Document 02/04/24 08:35 DL Desktop 02/04/24 08:39 DL 01/21/24 01/28/24 02/04/24 09:33 08:29 08:35 Wound Center Nurse 1 #1 L Med Ankle -Current Size (cm) - Length 0.1 0.1 0 -Current Size (cm) - Width 0.1 0.1 0 -Current Size (cm) - Depth 0.1 0.1 0 -Total Square Cm 0.01 0.01 0 -Date of Last Picture (Recall this 01/28/24 field) -Photo Taken Yes Yes Yes -Epithelialization Large 67-100% -Exudate Amt None Present None Present -Wound Margin Indistinct, Non Indistinct, Non -Visible -Visible -Granulation Amt Large (67-100%) Large (67-100%) -Granulation Quality Brea Brea -Necrosis Amt None Present (0 None Present (0 %) %) -Structure Exposed N/A N/A -Texture (Megan-wound Skin Appearance) Scarring Assessed Scarring -Moisture (Megan-wound Skin Appearance) No Abnormality Assessed,Dry/ Dry/Scaly Scaly -Color (Megan-wound Skin Appearance) No Abnormality, Assessed Hemosiderin Hemosiderin Staining Staining -Temperature (Megan-wound Skin No Abnormality No Abnormality No Abnormality Appearance) (Pt Warm) (Pt Warm) (Pt Warm) -Tenderness on Palpation (Megan-wound No No Skin Appearance) -Ulcer Cleansing Rinsed/ Rinsed/ Rinsed/ Irrigated with Irrigated with Irrigated with Saline Saline Saline -Foul Odor after Cleansing No No No Left Calf (cm) 38 38 36 Left Ankle (cm) 23.5 23.5 22.5 WC - Nurse 2 - General Ulcer CM Notes Start: 01/18/24 08:06 Freq: Status: Active Protocol: Activity Type Activity Date Activity User E-sign Co-sign Detail Recorded Client Recorded Date Recorded By Document 01/21/24 10:09 [email or web address] 01/21/24 10:10 [employer] Document 01/28/24 09:07 [employer] Desktop 01/28/24 09:10 Lenda Document 02/04/24 09:13 [employer] Desktop 02/04/24 09:17 BMF 01/21/24 01/28/24 02/04/24 10:09 09:07 09:13 Wound Center Nurse 2 #1 L Med Ankle -Post Debridement (cm) - Length 0.1 0.1 0.1 -Post Debridement (cm) - Width 0.1 0.1 0.1 -Post Debridement (cm) - Depth 0.1 0.1 0.1 -Total Square (Post) (cm) 0.01 0.01 0.01 -Area of Debridement (cm) - Length 0.1 0.1 0.1 -Area of Debridement (cm) - Width 0.1 0.1 0.1 -Total Square (Area) (cm) 0.01 0.01 0.01 -Tunneling No No -Undermining/Tunneling No No -Circular Undermining No No -Wound/Ulcer Outcome Not Healed Not Healed Not Healed -Bleeding Controlled with NA Pain Scale: 0-10 Numeric Is Patient Pain Free? Yes Yes Yes WC - Nurse 3 - General Ulcer D/C NN Start: 01/18/24 08:06 Freq: Status: Active Protocol: Activity Type Activity Date Activity User E-sign Co-sign Detail Recorded Client Recorded Date Recorded By Document 01/21/24 10:18 DL Desktop 01/21/24 10:20 DL Document 02/04/24 09:22 ML Desktop 02/04/24 09:23 ML 01/21/24 02/04/24 10:18 09:22 Wound Care Center Nurse 3 #1 L Med Ankle -Ulcer Cleansing Rinsed/ Irrigated with Saline -Foul Odor after Cleansing No No -Primary Dressing Applied Mepilex Border Mepilex Border -Mepilex Border 1 1 jose daniel -Stockings Yes Pain Scale: 0-10 Numeric Is Patient Pain Free? Yes No WC - Visit Discharge Discharge Condition Stable Stable Ambulatory Status Ambulatory Ambulatory Transportation Private Auto Medication Reconcilliation completed & No provided to patient/care provider Assessment/Plan Assessment/Plan (1) Non-pressure chronic ulcer of left ankle with necrosis of muscle: CODE(S): L97.323 - Non-pressure chronic ulcer of left ankle with necrosis of muscle (2) Delayed wound healing: CODE(S): T14.8XXD - Other injury of unspecified body region, subsequent encounter (3) Venous insufficiency (chronic) (peripheral): CODE(S): I87.2 - Venous insufficiency (chronic) (peripheral) (4) Obesity: CODE(S): E66.9 - Obesity, unspecified (5) Iron deficiency anemia: CODE(S): D50.9 - Iron deficiency anemia, unspecified PLAN: Plan Patient seen and evaluated Left lower extremity: There is ulceration noted to the medial aspect of the leftlower extremity/ankle limited to skin breakdown postdebridement with small portions of serosanguineous drainage secondary to soft tissue swelling. Ulceration had previously been deep overlying the neurovascular bundle was notedto be a Cisneros stage III prior to healing out 2 weeks ago. Negative Stemmer sign left foot. There is evidence of stasis dermatitis with hyperpigmentation/hemosiderin staining of the left lower extremity and varicosities. Ulceration reopened three weeks ago but is now epithelialized and remains so with no open area, however there remains fragile skin covering previous wound site. No signs of infection. Ulceration has healed with surrounding skin continuing to improve. Discussed protecting this previous ulcerative site with Band-Aid or foam dressing and continued application of his compression stocking. Discussed he is at risk of recidivism of this ulceration site over the next 30 days. It is imperative he continues to wear compression stockings and elevate lower extremities at times of rest. Discussed his trip to [place] that he will be taking tomorrow. Discussed what he should do in the event that the site reopen while he is down there for the next 2 weeks. Was instructed to change dressing daily with an antibacterial ointment and continue his compression stockings. He was warned that with the increased temperature swelling will continue in this extremity. He was remindedto reduce salt intake during this trip and continue to elevate leg while at rest. I have reviewed his venogram procedure by Dr. Mckee from 01/06/2024. No blockages were found. He will continue to follow Dr. Mckee and had recent visit with him 01/26/24 and plan is to repeat venous duplex in February. Discussed continued protein intake to aid in wound healing. Recommended continued Vladimir supplementation. Discussed reducing salty foods and content to aid in edema control and avoiding prolonged standing or having legs dangling over side of chair/bed. Discussed signs and symptoms of infection. Discussed if he notices redness about the ulcerative site moving up the leg, purulent drainage from the wound site, foul increasing odor from the wound, or if he experiences fever greater than 101 degree, accompanied by nausea, vomiting, chills/rigors that these are signs of a progressing infection and he should report to the ED for IV antibiotics and further evaluation. Patient voices understanding of this today. The following work up and care recommendations were made: Dressing: Pad and protect previous ulcerative site as skin is still fragile and has reopened secondary to soft tissue swelling. Will pad and protect with Band- Aid/foam border dressing for next 30 days and continue to wear compression stockings. Wash: Soap and water none Tissue growth optimization: Offload: Compression stockings and elevation of lower extremities. Pad and protect region. Vascular: Venogram was negative for blockage. Does have weakly palpable pulses however vascular status is not impacting healing and his ulceration is secondary to venous stasis. Edema: Continue compression stockings and elevation of the lower extremities. Infection: No signs of infection Pain: Mild discomfort he does take Tylenol as needed. Host factors: Chronic venous insufficiency I answered all the patient's questions. To return to the wound healing center in 2 weeks or call sooner if the patient has any questions or concerns. 02/04/24 0946 <Electronically signed by Merrill Burns DPM> Cosigner Signature (if applicable): CC: ~ Signed [facility] Work Phone: [phone] 697-122204-11-2024 Progress note Author Merrill Burns [facility] January 28, 2024 9:45am Note Date/Time January 28, 2024 9:2 9am [facility] [address] [place] [address] Progress Note - Wound Care 01/28/2427 MR#: [id number] Acct: [id number] Name: WELLINGTON GONZALEZ Rep #:[id number] : 1945 78 From: Merrill machado DPM PCP: Dr. Randa Joseph, DO Status:REG RCR Location: History of Present Illness Date of Service: 01/28/24 Chief Complaint: Left medial ankle wound History of Wound: Patient is a 78-year-old male who presents to the wound care center with recurring left lower extremity medial ankle wound. He has PMHx of recurring left lower extremity ulceration secondary to chronic venous insufficiency, history of DVT, obesity, JOSHUA, iron deficient anemia, delayed wound healing, and asthma. He states that he does have compression stockings but his stockings are old. He had been following in the wound care center for adeep ulceration to the medial aspect of the left lower extremity overlying the neurovascular bundle. He did go on to heal this ulceration as of 12/31/[address] Mckee for venogram the following week. He states he did return to the compression stockings however feels that he has opened up with return of the ulceration at the medial left lower extremity. He denies trauma to the site. States that the specific site is recurrent with breakdown of skin. Denies N/V/F/chills. No further complaints. 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 States that during visit with Dr. Mckee for the venogram no blockages were found. States he has not had any recent drainage and the site continues to improve withcontinued use of compression stocking. States he had follow up with vascular on 01/26/24. He returns today for reevaluation of the site. Denies constitutional symptoms. Denies further complaints. Objective Data Objective Data Vital Signs: Vital Signs Temp Pulse Resp BP O2 Del Method 97.4 F L 66 16 137/90 H Room Air 01/28/24 08:29 01/28/24 08:29 01/28/24 08:29 01/28/24 08:29 01/28/24 08:29 Oxygen Delivery Method Room Air Physical Exam Const alert, oriented x3 and no apparent distress General Appearance: cooperative HEENT normocephalic Eyes General Eye: normal appearance of both eyes Neck General: normal visual inspection Lymph Lymphatic: no lymphadenopathy noted and no lymphedema noted Resp normal respiratory effort Cardio regular rate and regular rhythm Extremity normal capillary refill, no joint enlargement, no calf tenderness and no pedal edema Extremity Narrative: Vascular: DP and PT pulses weakly palpable. Capillary fill time to digits is 5 seconds. Normal temperature gradient. There is absent hair growth to digits noted. Dermatological: There is superficial ulceration noted to the medial aspect of the lower extremity/ankle with fresh epithelialization. Previous pinpoint area remains healed. Negative Stemmer sign left foot. There is evidence of stasis dermatitis with hyperpigmentation/hemosiderin deposition/staining of skin left lower extremity. There is also varicosities noted of the lower extremity. Musculoskeletal: Muscle strength 5 of 5 age-appropriate. Skin no rashes or lesions noted, skin turgor normal and no jaundice General Skin Exam: venous stasis and dermatitis Neuro moves all extremities Debridement Note Debridement Note No debridement was completed: No debridement was completed today Post-Debridement Measurements and Additional Note: Post-Debridement Measurements/Treatment WC - Nurse 1 - General Ulcer Assessment Start: 01/18/24 08:06 Freq: Status: Active Protocol: LA NENA.VIVIANAEXMyra Activity Type Activity Date Activity User E-sign Co-sign Detail Recorded Client Recorded Date Recorded By Document 01/21/24 09:33 DL Desktop 01/21/24 09:39 DL Document 01/28/24 08:29 KW Desktop 01/28/24 08:37 KW 01/21/24 01/28/24 09:33 08:29 WC - Today's Visit Information Type of service Follow-up Visit Follow-up Visit (Physician/PROVIDER ENROLLMENT SPECIALIST (Physician/PROVIDER ENROLLMENT SPECIALIST ) ) Arrival Mode Ambulatory Ambulatory Transfer Assistance None Patient Identification Verified (Name & Yes Yes ) Patient Requires Transmission-Based No Precautions Vital Signs Temperature (97.8 F-99.1 F) 98.5 F 97.4 F L Temperature Source Temporal Temporal Pulse Rate (60-100) 66 Pulse Location Monitor Respiratory Rate (12-18) 18 16 Respiratory rate source Observation Observation Oxygen Delivery Method Room Air Blood Pressure (90/60-120/80) 137/90 H Blood Pressure Mean (mm Hg) 105 Source Monitor Position Semi-Fowlers Blood Pressure Location Left Arm History Since Last Visit- (Skip if this is Patient's initial visit) Have you changed medications since your No No last visit? Any new allergies or adverse reactions No No Had a fall/change in ADL's that may No No increase risk of falls Signs or symptoms of abuse and/or No No neglect since last visit Have you been in the hospital since your No No last visit? Has dressing in place as prescribed Yes Yes Has compression in place as prescribed Yes Yes Has offloadiing in place as prescribed N/A N/A Experienced any changes in pain level or No No management Left Footwear Regular Shoe Right Footwear Regular Shoe Pain Scale: 0-10 Numeric Is Patient Pain Free? Yes Yes - Nurse 1 - General Ulcer Measurement Start: 01/18/24 08:06 Freq: Status: Active Protocol: Activity Type Activity Date Activity User E-sign Co-sign Detail Recorded Client Recorded Date Recorded By Document 01/21/24 09:33 DL Desktop 01/21/24 09:39 DL Document 01/28/24 08:29 KW Desktop 01/28/24 08:37 KW 01/21/24 01/28/24 09:33 08:29 Wound Center Nurse 1 #1 L Med Ankle -Current Size (cm) - Length 0.1 0.1 -Current Size (cm) - Width 0.1 0.1 -Current Size (cm) - Depth 0.1 0.1 -Total Square Cm 0.01 0.01 -Date of Last Picture (Recall this 01/28/24 field) -Photo Taken Yes Yes -Epithelialization Large 67-100% -Exudate Amt None Present -Wound Margin Indistinct, Non -Visible -Granulation Amt Large (67-100%) -Granulation Quality Brea -Necrosis Amt None Present (0 %) -Structure Exposed N/A -Texture (Megan-wound Skin Appearance) Scarring Assessed -Moisture (Megan-wound Skin Appearance) No Abnormality Assessed,Dry/ Scaly -Color (Megan-wound Skin Appearance) No Abnormality, Assessed Hemosiderin Staining -Temperature (Megan-wound Skin No Abnormality No Abnormality Appearance) (Pt Warm) (Pt Warm) -Tenderness on Palpation (Megan-wound No Skin Appearance) -Ulcer Cleansing Rinsed/ Rinsed/ Irrigated with Irrigated with Saline Saline -Foul Odor after Cleansing No No Left Calf (cm) 38 38 Left Ankle (cm) 23.5 23.5 WC - Nurse 2 - General Ulcer CM Notes Start: 01/18/24 08:06 Freq: Status: Active Protocol: Activity Type Activity Date Activity User E-sign Co-sign Detail Recorded Client Recorded Date Recorded By Document 01/21/24 10:09 [facility] Desktop 01/21/24 10:10 [employer] Document 01/28/24 09:07 [employer] Desktop 01/28/24 09:10 [facility] 01/21/24 01/28/24 10:09 09:07 Wound Center Nurse 2 #1 L Med Ankle -Post Debridement (cm) - Length 0.1 0.1 -Post Debridement (cm) - Width 0.1 0.1 -Post Debridement (cm) - Depth 0.1 0.1 -Total Square (Post) (cm) 0.01 0.01 -Area of Debridement (cm) - Length 0.1 0.1 -Area of Debridement (cm) - Width 0.1 0.1 -Total Square (Area) (cm) 0.01 0.01 -Tunneling No No -Undermining/Tunneling No No -Circular Undermining No No -Wound/Ulcer Outcome Not Healed Not Healed -Bleeding Controlled with NA Pain Scale: 0-10 Numeric Is Patient Pain Free? Yes Yes WC - Nurse 3 - General Ulcer D/C NN Start: 01/18/24 08:06 Freq: Status: Active Protocol: Activity Type Activity Date Activity User E-sign Co-sign Detail Recorded Client Recorded Date Recorded By Document 01/21/24 10:18 DL Desktop 01/21/24 10:20 DL 01/21/24 10:18 Wound Care Center Nurse 3 #1 L Med Ankle -Foul Odor after Cleansing No -Primary Dressing Applied Mepilex Border -Mepilex Border 1 jose daniel -Stockings Yes Pain Scale: 0-10 Numeric Is Patient Pain Free? Yes WC - Visit Discharge Discharge Condition Stable Ambulatory Status Ambulatory Transportation Private Auto Assessment/Plan Assessment/Plan (1) Non-pressure chronic ulcer of left ankle with necrosis of muscle: CODE(S): L97.323 - Non-pressure chronic ulcer of left ankle with necrosis of muscle (2) Delayed wound healing: CODE(S): T14.8XXD - Other injury of unspecified body region, subsequent encounter (3) Venous insufficiency (chronic) (peripheral): CODE(S): I87.2 - Venous insufficiency (chronic) (peripheral) (4) Obesity: CODE(S): E66.9 - Obesity, unspecified (5) Iron deficiency anemia: CODE(S): D50.9 - Iron deficiency anemia, unspecified PLAN: Plan Patient seen and evaluated Left lower extremity: There is ulceration noted to the medial aspect of the leftlower extremity/ankle limited to skin breakdown postdebridement with small portions of serosanguineous drainage secondary to soft tissue swelling. Ulceration had previously been deep overlying the neurovascular bundle was notedto be a Cisneros stage III prior to healing out 2 weeks ago. Negative Stemmer sign left foot. There is evidence of stasis dermatitis with hyperpigmentation/hemosiderin staining of the left lower extremity and varicosities. Ulceration reopened two weeks ago but is now epithelialized with no open area, however there remains fragile skin covering previous wound site. No signs of infection. Ulceration has healed with surrounding skin continuing to improve. Discussed protecting this previous ulcerative site with Band-Aid or foam dressing and continued application of his compression stocking. Discussed he is at risk of recidivism of this ulceration site over the next 30 days. It is imperative he continues to wear compression stockings and elevate lower extremities at times of rest. I have reviewed his venogram procedure by Dr. Mckee from 01/06/2024. No blockages were found. He will continue to follow Dr. Mckee and had recent visit with him 01/26/24 and plan is to repeat venous duplex in February. Discussed continued protein intake to aid in wound healing. Recommended continued Vladimir supplementation. Discussed reducing salty foods and content to aid in edema control and avoiding prolonged standing or having legs dangling over side of chair/bed. Discussed signs and symptoms of infection. Discussed if he notices redness about the ulcerative site moving up the leg, purulent drainage from the wound site, foul increasing odor from the wound, or if he experiences fever greater than 101 degree, accompanied by nausea, vomiting, chills/rigors that these are signs of a progressing infection and he should report to the ED for IV antibiotics and further evaluation. Patient voices understanding of this today. The following work up and care recommendations were made: Dressing: Pad and protect previous ulcerative site as skin is still fragile and has reopened secondary to soft tissue swelling. Will pad and protect with Band- Aid/foam border dressing for next 30 days and continue to wear compression stockings. Wash: Soap and water none Tissue growth optimization: Offload: Compression stockings and elevation of lower extremities. Pad and protect region. Vascular: Venogram was negative for blockage. Does have weakly palpable pulses however vascular status is not impacting healing and his ulceration is secondary to venous stasis. Edema: Continue compression stockings and elevation of the lower extremities. Infection: No signs of infection Pain: Mild discomfort he does take Tylenol as needed. Host factors: Chronic venous insufficiency I answered all the patient's questions. To return to the wound healing center in 1 week or call sooner if the patient has any questions or concerns. 01/28/24 0945 <Electronically signed by Merrill Burns DPM> Cosigner Signature (if applicable): CC: ~ Signed [facility] Work Phone: 1(718) 459-455504-04-2024 Progress note Author Merrill Burns [facility] January 21, 2024 1:43pm Note Date/Time January 21, 2024 10:0 5am [facility] [address] [place] [address] Progress Note - Wound Care 01/21/24 1001 MR#: [id number] Acct: [id number] Name: WELLINGTON GONZALEZ Rep #:[id number] : 1945 78 From: Merrill machado DPM PCP: Dr. Randa Joseph, DO Status:REG RCR Location: History of Present Illness Date of Service: 01/21/24 Chief Complaint: Left medial ankle wound History of Wound: Patient is a 78-year-old male who presents to the wound care center with recurring left lower extremity medial ankle wound. He has PMHx of recurring left lower extremity ulceration secondary to chronic venous insufficiency, history of DVT, obesity, JOSHUA, iron deficient anemia, delayed wound healing, and asthma. He states that he does have compression stockings but his stockings are old. He had been following in the wound care center for adeep ulceration to the medial aspect of the left lower extremity overlying the neurovascular bundle. He did go on to heal this ulceration as of 12/31/[address] Mckee for venogram the following week. He states he did return to the compression stockings however feels that he has opened up with return of the ulceration at the medial left lower extremity. He denies trauma to the site. States that the specific site is recurrent with breakdown of skin. Denies N/V/F/chills. No further complaints. 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 States that during visit with Dr. Mckee for the venogram no blockages were found. States he has not had any recent drainage and the site continues to improve. Hereturns today for reevaluation of the site. Denies constitutional symptoms. Denies further complaints. Objective Data Objective Data Vital Signs: Vital Signs Temp Pulse Resp BP 98.5 F 69 18 142/69 H 01/21/24 09:33 01/18/24 00:31 01/21/24 09:33 01/18/24 00:31 Physical Exam Const alert, oriented x3 and no apparent distress General Appearance: cooperative HEENT normocephalic Eyes General Eye: normal appearance of both eyes Neck General: normal visual inspection Lymph Lymphatic: no lymphadenopathy noted and no lymphedema noted Resp normal respiratory effort Cardio regular rate and regular rhythm Extremity normal capillary refill, no joint enlargement, no calf tenderness and no pedal edema Extremity Narrative: Vascular: DP and PT pulses weakly palpable. Capillary fill time to digits is 5 seconds. Normal temperature gradient. There is absent hair growth to digits noted. Dermatological: There is superficial ulceration noted to the medial aspect of the lower extremity/ankle with fresh epithelialization. Previous pinpoint area has healed. Negative Stemmer sign left foot. There is evidence of stasis dermatitis with hyperpigmentation/hemosiderin deposition/staining of skin left lower extremity. There is also varicosities noted of the lower extremity. Musculoskeletal: Muscle strength 5 of 5 age-appropriate. Skin no rashes or lesions noted, skin turgor normal and no jaundice General Skin Exam: venous stasis and dermatitis Neuro moves all extremities Debridement Note Debridement Note No debridement was completed: No debridement was completed today Post-Debridement Measurements and Additional Note: Post-Debridement Measurements/Treatment WC - Nurse 1 - General Ulcer Assessment Start: 01/18/24 08:06 Freq: Status: Active Protocol: ANAYA Activity Type Activity Date Activity User E-sign Co-sign Detail Recorded Client Recorded Date Recorded By Document 01/21/24 09:33 DL [employer] 01/21/24 09:39 DL 01/21/24 09:33 WC - Today's Visit Information Type of service Follow-up Visit (Physician/PROVIDER ENROLLMENT SPECIALIST ) Arrival Mode Ambulatory Transfer Assistance None Patient Identification Verified (Name & Yes ) Patient Requires Transmission-Based No Precautions Vital Signs Temperature (97.8 F-99.1 F) 98.5 F Temperature Source Temporal Respiratory Rate (12-18) 18 Respiratory rate source Observation History Since Last Visit- (Skip if this is Patient's initial visit) Have you changed medications since your No last visit? Any new allergies or adverse reactions No Had a fall/change in ADL's that may No increase risk of falls Signs or symptoms of abuse and/or No neglect since last visit Have you been in the hospital since your No last visit? Has dressing in place as prescribed Yes Has compression in place as prescribed Yes Has offloadiing in place as prescribed N/A Experienced any changes in pain level or No management Pain Scale: 0-10 Numeric Is Patient Pain Free? Yes - Nurse 1 - General Ulcer Measurement Start: 01/18/24 08:06 Freq: Status: Active Protocol: Activity Type Activity Date Activity User E-sign Co-sign Detail Recorded Client Recorded Date Recorded By Document 01/21/24 09:33 DL [facility] 01/21/24 09:39 DL 01/21/24 09:33 Wound Center Nurse 1 #1 L Med Ankle -Current Size (cm) - Length 0.1 -Current Size (cm) - Width 0.1 -Current Size (cm) - Depth 0.1 -Total Square Cm 0.01 -Photo Taken Yes -Exudate Amt None Present -Wound Margin Indistinct, Non -Visible -Granulation Amt Large (67-100%) -Granulation Quality Brea -Necrosis Amt None Present (0 %) -Structure Exposed N/A -Texture (Megan-wound Skin Appearance) Scarring -Moisture (Megan-wound Skin Appearance) No Abnormality -Color (Megan-wound Skin Appearance) No Abnormality, Hemosiderin Staining -Temperature (Megan-wound Skin No Abnormality Appearance) (Pt Warm) -Ulcer Cleansing Rinsed/ Irrigated with Saline -Foul Odor after Cleansing No Left Calf (cm) 38 Left Ankle (cm) 23.5 Assessment/Plan Assessment/Plan (1) Non-pressure chronic ulcer of left ankle with necrosis of muscle: CODE(S): L97.323 - Non-pressure chronic ulcer of left ankle with necrosis of muscle (2) Delayed wound healing: CODE(S): T14.8XXD - Other injury of unspecified body region, subsequent encounter (3) Venous insufficiency (chronic) (peripheral): CODE(S): I87.2 - Venous insufficiency (chronic) (peripheral) (4) Obesity: CODE(S): E66.9 - Obesity, unspecified (5) Iron deficiency anemia: CODE(S): D50.9 - Iron deficiency anemia, unspecified PLAN: Plan Patient seen and evaluated Left lower extremity: There is ulceration noted to the medial aspect of the leftlower extremity/ankle limited to skin breakdown postdebridement with small portions of serosanguineous drainage secondary to soft tissue swelling. Ulceration had previously been deep overlying the neurovascular bundle was notedto be a Cisneros stage III prior to healing out 2 weeks ago. Negative Stemmer sign left foot. There is evidence of stasis dermatitis with hyperpigmentation/hemosiderin staining of the left lower extremity and varicosities. Ulceration has reopened last week but is now epithelialized with no open area, however there is fragile skin covering previous wound site. No signs of infection. Ulceration is limited to skin breakdown secondary to continued soft tissue swelling. Discussed protecting this previous ulcerative site with Band-Aid or foam dressing and continued application of his compression stocking. Discussed he is at risk of recidivism of this ulceration site over the next 30 days. It is imperative he continues to wear compression stockings and elevate lower extremities at times of rest. I have reviewed his venogram procedure by Dr. Mckee from 01/06/2024. No blockages were found. He will continue to follow Dr. Mckee and has visit with him next week. Discussed continued protein intake to aid in wound healing. Recommended continued Vladimir supplementation. Discussed reducing salty foods and content to aid in edema control and avoiding prolonged standing or having legs dangling over side of chair/bed. Discussed signs and symptoms of infection. Discussed if he notices redness about the ulcerative site moving up the leg, purulent drainage from the wound site, foul increasing odor from the wound, or if he experiences fever greater than 101 degree, accompanied by nausea, vomiting, chills/rigors that these are signs of a progressing infection and he should report to the ED for IV antibiotics and further evaluation. Patient voices understanding of this today. The following work up and care recommendations were made: Dressing: Pad and protect previous ulcerative site as skin is still fragile and has reopened secondary to soft tissue swelling. Will pad and protect with Band- Aid/foam border dressing for next 30 days and continue to wear compression stockings. Wash: Soap and water none Tissue growth optimization: Offload: Compression stockings and elevation of lower extremities. Pad and protect region. Vascular: Venogram was negative for blockage. Does have weakly palpable pulses however vascular status is not impacting healing and his ulceration is secondary to venous stasis. Edema: Continue compression stockings and elevation of the lower extremities. Infection: No signs of infection Pain: Mild discomfort he does take Tylenol as needed. Host factors: Chronic venous insufficiency I answered all the patient's questions. To return to the wound healing center in 1 week or call sooner if the patient has any questions or concerns. 01/21/24 1343 <Electronically signed by Merrill Burns DPM> Cosigner Signature (if applicable): CC: ~ Signed [facility] Work Phone: 1(543) 433-963503-28-2024 Progress note Author Merrill Burns [facility] January 14, 2024 7:27pm Note Date/Time January 14, 2024 10: 30am [facility] [address] [place] [address] Progress Note - Wound Care 01/14/24 1029 MR#: [id number] Acct: [id number] Name: WELLINGTON GONZALEZ Rep #:[id number] : 1945 78 From: Merrill machado DPM PCP: Dr. Randa Joseph, DO Status:REG RCR Location: History of Present Illness Date of Service: 01/14/24 Chief Complaint: Left medial ankle wound History of Wound: Patient is a 78-year-old male who presents to the wound care center with recurring left lower extremity medial ankle wound. He has PMHx of recurring left lower extremity ulceration secondary to chronic venous insufficiency, history of DVT, obesity, JOSHUA, iron deficient anemia, delayed wound healing, and asthma. He states that he does have compression stockings but his stockings are old. He had been following in the wound care center for adeep ulceration to the medial aspect of the left lower extremity overlying the neurovascular bundle. He did go on to heal this ulceration as of 12/31/[address] Mckee for venogram the following week. He states he did return to the compression stockings however feels that he has opened up with return of the ulceration at the medial left lower extremity. He denies trauma to the site. States that the specific site is recurrent with breakdown of skin. Denies N/V/F/chills. No further complaints. 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 States that during visit with Dr. Mckee for the venogram no blockages were found. He states that he did return to the wearing the compression stockings however feelsthat the wound is trying to open up again as he had scant amount of drainage from the previous ulcer site he returns today for reevaluation of the site. Denies constitutional symptoms. Denies further complaints. Objective Data Objective Data Vital Signs: Vital Signs Temp Pulse Resp BP O2 Del Method 96.5 F L 69 18 142/69 H Room Air 01/14/24 09:32 01/14/24 09:32 01/14/24 09:32 01/14/24 09:32 01/14/24 09:32 Oxygen Delivery Method Room Air Physical Exam Const alert, oriented x3 and no apparent distress General Appearance: cooperative HEENT normocephalic Eyes General Eye: normal appearance of both eyes Neck General: normal visual inspection Lymph Lymphatic: no lymphadenopathy noted and no lymphedema noted Resp normal respiratory effort Cardio regular rate and regular rhythm Extremity normal capillary refill, no joint enlargement and no calf tenderness Extremity Narrative: Vascular: DP and PT pulses weakly palpable. Capillary fill time to digits is 5 seconds. Normal temperature gradient. There is absent hair growth to digits noted. Dermatological: There is superficial ulceration noted to the medial aspect of the lower extremity/ankle with fresh epithelialization. Ulcer does have pinpoint area of serous drainage secondary to swelling. Negative Stemmer sign left foot. There is evidence of stasis dermatitis with hyperpigmentation/hemosiderin deposition/staining of skin left lower extremity. There is also varicosities noted of the lower extremity. Musculoskeletal: Muscle strength 5 of 5 age-appropriate. Skin no rashes or lesions noted, skin turgor normal and no jaundice Neuro moves all extremities Debridement Note Debridement Note Wound debrided: Medial left lower extremity Laterality: Left Wound Grade/Stage: Cisneros stage III Type of Debridement: Excisional debridement Anesthesia Used: 5% Lidocaine Gel Depth: Down to and including healthy tissue and in the subcutaneous layer Percentage of wound debrided: 100 Instrument Used: 5mm curette Tissue Removed: Fibrous, devitalized subcutaneous, biofilm, slough Severity: Limited To Skin Breakdown Amount of bleeding with debridement: Mild Bleeding Controlled with: Compression and gauze Patient tolerated procedure: Patient tolerated procedure well Post-Debridement Measurements and Additional Note: Post-Debridement Measurements/Treatment - Nurse 1 - General Ulcer Assessment Start: 01/14/24 09:30 Freq: Status: Active Protocol: LA NENA.JESUS Activity Type Activity Date Activity User E-sign Co-sign Detail Recorded Client Recorded Date Recorded By Document 01/14/24 09:32 KW Desktop 01/14/24 09:38 KW 01/14/24 09:32 - Today's Visit Information Type of service Follow-up Visit (Physician/PROVIDER ENROLLMENT SPECIALIST ) Arrival Mode Ambulatory Patient Identification Verified (Name & Yes ) Vital Signs Temperature (97.8 F-99.1 F) 96.5 F L Temperature Source Temporal Pulse Rate (60-100) 69 Pulse Location Monitor Respiratory Rate (12-18) 18 Respiratory rate source Observation Oxygen Delivery Method Room Air Blood Pressure (90/60-120/80) 142/69 H Blood Pressure Mean (mm Hg) 93 Source Monitor Position Semi-Fowlers Blood Pressure Location Left Arm History Since Last Visit- (Skip if this is Patient's initial visit) Have you changed medications since your No last visit? Any new allergies or adverse reactions No Had a fall/change in ADL's that may No increase risk of falls Signs or symptoms of abuse and/or No neglect since last visit Have you been in the hospital since your No last visit? Has dressing in place as prescribed Yes Has compression in place as prescribed Yes Has offloadiing in place as prescribed N/A Experienced any changes in pain level or No management Left Footwear Regular Shoe Right Footwear Regular Shoe Pain Scale: 0-10 Numeric Is Patient Pain Free? Yes WC - Nurse 1 - General Ulcer Measurement Start: 01/14/24 09:30 Freq: Status: Active Protocol: Activity Type Activity Date Activity User E-sign Co-sign Detail Recorded Client Recorded Date Recorded By Document 01/14/24 09:32 KW Desktop 01/14/24 09:38 KW 01/14/24 09:32 Wound Center Nurse 1 #1 L Med Ankle -Current Size (cm) - Length 0.1 -Current Size (cm) - Width 0.1 -Current Size (cm) - Depth 0.1 -Total Square Cm 0.01 -Texture (Megan-wound Skin Appearance) Assessed -Moisture (Megan-wound Skin Appearance) Assessed,Dry/ Scaly -Color (Megan-wound Skin Appearance) Assessed -Ulcer Cleansing Rinsed/ Irrigated with Saline -Anesthetic Used 5% Lidocaine Gel -Wound Comment(s) SCABBED SITE. INTACT Right Calf (cm) 39.5 Right Ankle (cm) 24.5 Assessment/Plan Assessment/Plan (1) Ulcer of extremity due to chronic venous insufficiency: CODE(S): L98.499 - Non-pressure chronic ulcer of skin of other sites with unspecified severity; I87.2 - Venous insufficiency (chronic) (peripheral) (2) Delayed wound healing: CODE(S): T14.8XXD - Other injury of unspecified body region, subsequent encounter (3) Non-pressure chronic ulcer of left ankle with necrosis of muscle: CODE(S): L97.323 - Non-pressure chronic ulcer of left ankle with necrosis of muscle (4) Venous insufficiency (chronic) (peripheral): CODE(S): I87.2 - Venous insufficiency (chronic) (peripheral) (5) Obesity: CODE(S): E66.9 - Obesity, unspecified PLAN: Plan Patient seen and evaluated Left lower extremity: There is ulceration noted to the medial aspect of the leftlower extremity/ankle limited to skin breakdown postdebridement with small portions of serosanguineous drainage secondary to soft tissue swelling. Ulceration had previously been deep overlying the neurovascular bundle was notedto be a Cisneros stage III prior to healing out 2 weeks ago. Negative Stemmer sign left foot. There is evidence of stasis dermatitis with hyperpigmentation/hemosiderin staining of the left lower extremity and varicosities. Ulceration has reopened. No signs of infection. Ulceration did undergo debridement as noted in the clinical panel above. Ulceration is limited to skinbreakdown secondary to continued soft tissue swelling. Discussed protecting this previous ulcerative site with Band-Aid or foam dressing and continued application of his compression stocking. Discussed he is at risk of recidivism of this ulceration site over the next 30 days. It is imperative he continues to wear compression stockings and elevate lower extremities at times of rest. I have reviewed his venogram procedure by Dr. Mckee from 01/06/2024. No blockages were found. He will continue to follow Dr. Mckee and has visit with him next week. Discussed continued protein intake to aid in wound healing. Recommended continued Vladimir supplementation. Discussed reducing salty foods and content to aid in edema control and avoiding prolonged standing or having legs dangling over side of chair/bed. Discussed signs and symptoms of infection. Discussed if he notices redness about the ulcerative site moving up the leg, purulent drainage from the wound site, foul increasing odor from the wound, or if he experiences fever greater than 101 degree, accompanied by nausea, vomiting, chills/rigors that these are signs of a progressing infection and he should report to the ED for IV antibiotics and further evaluation. Patient voices understanding of this today. The following work up and care recommendations were made: Dressing: Pad and protect previous ulcerative site as skin is still fragile and has reopened secondary to soft tissue swelling. Will pad and protect with Band- Aid/foam border dressing for next 30 days and continue to wear compression stockings. Wash: Soap and water none Tissue growth optimization: Offload: Compression stockings and elevation of lower extremities. Pad and protect region. Vascular: Venogram was negative for blockage. Does have weakly palpable pulses however vascular status is not impacting healing and his ulceration is secondaryto venous stasis. Edema: Continue compression stockings and elevation of the lower extremities. Infection: No signs of infection Pain: Mild discomfort he does take Tylenol as needed. Host factors: Chronic venous insufficiency I answered all the patient's questions. To return to the wound healing center in 1 week or call sooner if the patient has any questions or concerns. 01/14/241926 <Electronically signed by Merrill Burns DPM> Cosigner Signature (if applicable): CC: ~ Signed [facility] Work Phone: 1(269) 782-828703-20-2024 History and physical note Author Murray Mckee [facility] January 06, 2024 8:16am Note Date/Time January 06, 2024 8:1 6am [facility] Medical Records Department [address] [place] [id number] History & Physical Exam 01/06/24 0813 MR#: [id number] Acct: [id number] Name: WELLINGTON GONZALEZ Rep #:[id number] : 1945 78 From: Murray Mckee MD PCP: Dr. Randa Jospeh, DO Status:[facility] Location: [facility] HPI - General HPI Narrative WELLINGTON GONZALEZ, is a 78 M who presents with left lower extremity venous ulceration, deep reflux and SFJ reflux. His wounds are improving with local careand compression though still weeping. Here for venogram to assess for central obstruction COUNT INCLUDES THE [facility] Medical History 2011 femur fracture [facility] Asthma Celiac disease DVT (deep venous thrombosis) Fatigue GERD (gastroesophageal reflux disease) History of back problems Iron deficiency anemia Lab test positive for detection of COVID-19 virus (~04/2020) Left femoral shaft fracture JOSHUA (obstructive sleep apnea) Osteopenia Restless leg syndrome Weight loss Home Medications pantoprazole 40 mg tablet,delayed release 40 mg PO QHS gerd 04/03/14 [History Last Taken 07/15/17] tamsulosin 0.4 mg capsule 0.4 mg PO QHS Enlarged prostate 07/12/17 [History Last Taken 01/06/24] ibuprofen 200 mg capsule 200 mg PO BID PRN Pain 09/10/18 [History Last Taken Unknown] ergocalciferol (vitamin D2) 1,250 mcg (50,000 unit) capsule 50,000 unit PO WE 10/21/19 [History Last Taken Unknown] benralizumab 30 mg/mL subcutaneous syringe (Fasenra) 30 mg subcut Q4W #1 mL 12/28/20 [Rx Last Taken Unknown] levothyroxine 50 mcg tablet 100 mcg PO DAILY 03/21/22 [History Last Taken 01/06/24] fluticasone propionate 50 mcg/actuation nasal spray,suspension 2 spray NASAL BIDPRN Congestion #16 grams 03/25/22 [Rx Last Taken Unknown] albuterol sulfate 90 mcg/actuation aerosol inhaler 1 - 2 puff inhalation Q4H PRNPRN Sob &/Or Wheezing #8.5 grams 09/22/23 [Rx Last Taken Unknown] budesonide-formoterol HFA 160 mcg-4.5 mcg/actuation aerosol inhaler (Symbicort) 2 puff inhalation BID PRN asthma 11/25/23 [History Last Taken Unknown] latanoprost 0.005 % eye drops 1 drp ophthalmic (eye) DAILY 11/25/23 [History Last Taken Unknown] pramipexole 1.5 mg tablet 1.5 mg PO DAILY 11/25/23 [History Last Taken Unknown] finasteride 5 mg tablet 5 mg PO DAILY 01/05/24 [History Last Taken Unknown] Allergy/AdvReac Type Severity Reaction Status Date / Time gluten AdvReac Other Verified 12/18/23 13:40 Family History Father prostate cancer Surgical History colonoscopy History of cholecystectomy History of colonoscopy (~09/24/20) History of esophagogastroduodenoscopy (EGD) (~09/24/20) History of hernia repair History of repair of hip fracture History of spinal surgery (~2016) Social History Smoking Status: Former smoker alcohol intake: never substance use type: does not use ROS Constitutional Constitutional: Denies chills, fever(s), frequent falls, lethargy or weakness Eyes Eyes: Denies blind spots, change in vision or loss of vision ENT HEENT: Denies bleeding gums, hoarseness or sore throat Cardiovascular Cardiovascular: Denies abdominal pain, bluish discoloration of hand/feet, chest pain with activity, claudication, cold extremities, cyanosis, dyspnea on exertion, erythema on extremities, irregular heart rhythm, leg edema, leg ulcers, numbness in extremities or weakness in extremities Respiratory/Chest Respiratory/Chest: Denies cough, excessive phlegm production, shortness of breath at rest, shortness of breath with exertion or wheezing Gastrointestinal Gastrointestinal: Denies anorexia, change in stool character, constipation, diarrhea, melena or rectal bleeding Genitourinary Genitourinary: Denies dysuria or hematuria Musculoskeletal Musculoskeletal: Denies abnormal gait Integumentary Integumentary: Reports other Details: ; Denies erythema, non-healing lesions or wounds Neurologic Neurologic: Denies abnormal speech, focal weakness, headache(s), loss of vision,numbness, paresthesias or sensory deficit Hematologic/Lymphatic Hematologic/Lymphatic: Denies easy bleeding, easy bruising or lymphadenopathy Vital Signs Vital Signs Vital Signs: Weight Weight: 224 lb Body Mass Index (BMI) 30.4 Physical Exam Const alert, oriented x3, no apparent distress and healthy appearing General Appearance: cooperative; Negative for combative or lethargic Orientation / Consciousness: awake Exam Limitations: no limitations HEENT Head and Scalp: normocephalic and atraumatic Eyes EOMs intact bilaterally General Eye: normal appearance of both eyes Neck full ROM, no lymphadenopathy, thyroid normal and No no carotid bruits General: trachea midline; Negative for lymphadenopathy or tenderness Thyroid: thyroid normal Lymph Lymphatic: Negative for no lymphadenopathy noted Resp normal respiratory effort and no use of accessory muscles Effort and Inspection: Negative for labored, stridor or audible wheezes Cardio regular rate and regular rhythm Back/Spine Cervical Spine: cervical ROM normal Extremity full ROM, normal capillary refill and no clubbing, cyanosis or edema Skin no rashes or lesions noted and no wounds Neuro oriented x3, CN's II-XII intact bilaterally, no focal motor deficits and no sensory deficits noted Psych thought process normal, cooperative, affect normal, speech normal and activity/motor behavior normal Results Lab / Micro Data 01/06/24 06:58 01/06/24 06:58 Labs: Laboratory Results - last 24 hr 01/06/24 06:58: WBC 3.1 L, RBC 3.64 L, Hgb 11.5 L, Hct 34.6 L, MCV 95.1 H, MCH 31.6, MCHC 33.2, RDW Std Deviation 48.7 H, RDW Coeff of [place] 13.8, Plt Count 174,MPV 9.9, Sodium 142, Potassium 3.9, Chloride 111 H, Carbon Dioxide 25.0, Anion Gap 6, BUN 19 H, Creatinine 0.85, Estim Creat Clear Calc 89.77, Est GFR (MDRD) Af Amer 112, Est GFR (MDRD) Non-Af 92, BUN/Creatinine Ratio 22.2 H, Glucose 94, Calcium 9.2 Assessment & Plan Assessment/Plan (1) Ulcer of extremity due to chronic venous insufficiency: PLAN: -venogram 01/06/24 0816 <Electronically signed by Murray Mckee MD> Cosigner Signature (if applicable): CC: Dr. Murray Mckee MD; Dr. Randa Joseph DO~ Signed [facility] Work Phone: 1(245) 862-453303-14-2024 Progress note Author Merrill Burns [facility] December 31, 2023 12:53pm Note Date/Time December 31, 2023 10: 23am [facility] [address] [place] [address] Progress Note - Wound Care 12/31/23 1020 MR#: [id number] Acct: [id number] Name: WELLINGTON GONZALEZ Rep #:[id number] : 1945 78 From: Merrill machado DPM PCP: Dr. Randa Joseph, Status:REG RCR Location: History of Present Illness Date of Service: 12/31/23 Chief Complaint: Left medial ankle wound History of Wound: 78-year-old male presents for follow-up on right lateral anklewound. Presents today due to new blister formation to anterior lateral ankle. typically a patient of Dr. Burns's but presented earlier due to concern for blister. No other complaints today. 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 He continues to change dressings daily with Abran. He continues to follow with regarding his chronic venous insufficiency and will have procedure done on 01/06/24. States the procedure was delayed but he will be getting this done. States wound continues to improve. Denies constitutional symptoms. Denies further complaints. Objective Data Objective Data Vital Signs: Vital Signs Temp Pulse Resp BP O2 Del Method 96.9 F L 67 18 141/81 H Room Air 12/31/23 09:42 12/31/23 09:42 12/31/23 09:42 12/31/23 09:42 12/31/23 09:42 Oxygen Delivery Method Room Air Weight: 99.159 kg Body Mass Index (BMI) 28.8 Physical Exam Const alert, oriented x3 and no apparent distress General Appearance: cooperative HEENT normocephalic Eyes General Eye: normal appearance of both eyes Neck General: normal visual inspection Lymph Lymphatic: no lymphadenopathy noted and no lymphedema noted Resp normal respiratory effort Cardio regular rate and regular rhythm Extremity normal capillary refill, no joint enlargement, no calf tenderness and no pedal edema Extremity Narrative: Vascular: DP and PT pulses weakly palpable. Capillary fill time to the digits is 5 seconds. Normal temperature gradient. There is absent hair growth to the digits noted. Dermatological: There is ulceration noted to the medial aspect of the left lowerextremity/ankle with fresh epithelialization. Ulcer noted to be healed. Negative Stemmer sign left foot. There is evidence of stasis dermatitis with hyperpigmentation/hemosiderin staining of the left lower extremity. Musculoskeletal: Muscle strength 5 of 5 age-appropriate. Skin no rashes or lesions noted, skin turgor normal and no jaundice Neuro moves all extremities Debridement Note Debridement Note No debridement was completed: No debridement was completed today Post-Debridement Measurements and Additional Note: Post-Debridement Measurements/Treatment WC - Nurse 1 - General Ulcer Assessment Start: 12/25/23 11:36 Freq: Status: Active Protocol: JIMMYT Activity Type Activity Date Activity User E-sign Co-sign Detail Recorded Client Recorded Date Recorded By Document 12/25/23 11:36 KW Desktop 12/25/23 11:42 KW Document 12/31/23 09:42 KW Desktop 12/31/23 09:51 KW 12/25/23 12/31/23 11:36 09:42 - Today's Visit Information Type of service Nurse-only Follow-up Visit Visit (Physician/PROVIDER ENROLLMENT SPECIALIST ) Arrival Mode Ambulatory Ambulatory Patient Identification Verified (Name & Yes Yes ) Height and Weight Body Mass Index (BMI) 28.8 28.8 BMI Classification Overweight Overweight Vital Signs Temperature (97.8 F-99.1 F) 98.0 F 96.9 F L Temperature Source Temporal Temporal Pulse Rate (60-100) 70 67 Pulse Location Monitor Monitor Respiratory Rate (12-18) 18 18 Respiratory rate source Observation Observation Oxygen Delivery Method Room Air Room Air Blood Pressure (90/60-120/80) 142/63 H 141/81 H Blood Pressure Mean (mm Hg) 89 101 Source Monitor Monitor Position Semi-Fowlers Semi-Fowlers Blood Pressure Location Left Arm Left Arm History Since Last Visit- (Skip if this is Patient's initial visit) Have you changed medications since your No No last visit? Any new allergies or adverse reactions No No Had a fall/change in ADL's that may No No increase risk of falls Signs or symptoms of abuse and/or No No neglect since last visit Have you been in the hospital since your No No last visit? Has dressing in place as prescribed Yes Yes Has compression in place as prescribed Yes Yes Has offloadiing in place as prescribed N/A N/A Experienced any changes in pain level or No No management Left Footwear Regular Shoe Regular Shoe Right Footwear Regular Shoe Regular Shoe Pain Scale: 0-10 Numeric Is Patient Pain Free? Yes Yes - Nurse 1 - General Ulcer Measurement Start: 12/25/23 11:36 Freq: Status: Active Protocol: Activity Type Activity Date Activity User E-sign Co-sign Detail Recorded Client Recorded Date Recorded By Document 12/25/23 11:36 KW Desktop 12/25/23 11:42 KW Document 12/31/23 09:42 KW Desktop 12/31/23 09:51 KW 12/25/23 12/31/23 11:36 09:42 Wound Center Nurse 1 #1 L Med Ankle -Current Size (cm) - Length 0.1 -Current Size (cm) - Width 0.1 -Current Size (cm) - Depth 0.1 -Total Square Cm 0.01 -Texture (Megan-wound Skin Appearance) Assessed -Moisture (Megan-wound Skin Appearance) Assessed -Color (Megan-wound Skin Appearance) Assessed -Temperature (Mgean-wound Skin No Abnormality Appearance) (Pt Warm) -Ulcer Cleansing Soap and Water -Anesthetic Used 5% Lidocaine Gel -Wound Comment(s) ULCER SCABBED OVER AT THIS TIME Left Calf (cm) 38.3 37 Left Ankle (cm) 23 21 WC - Nurse 2 - General Ulcer CM Notes Start: 12/25/23 11:36 Freq: Status: Active Protocol: Activity Type Activity Date Activity User E-sign Co-sign Detail Recorded Client Recorded Date Recorded By Document 12/31/23 09:54 [facility] [employer] 12/31/23 10:01 [facility] 12/31/23 09:54 Wound Center Nurse 2 #1 L Med Ankle -Time 09:54 -Correct Patient Yes -Correct Side, Site, Position Yes -Correct Procedure Yes -Procedure Performed Yes -Post Debridement (cm) - Length 0 -Post Debridement (cm) - Width 0 -Post Debridement (cm) - Depth 0 -Total Square (Post) (cm) 0 -Area of Debridement (cm) - Length 0 -Area of Debridement (cm) - Width 0 -Total Square (Area) (cm) 0 -Tunneling No -Undermining/Tunneling No -Circular Undermining No -Wound/Ulcer Outcome Healed- Epithelialized -Ulcer Cleansing Rinsed/ Irrigated with Saline Pain Scale: 0-10 Numeric Is Patient Pain Free? Yes - Nurse 3 - General Ulcer D/C NN Start: 12/25/23 11:36 Freq: Status: Active Protocol: Activity Type Activity Date Activity User E-sign Co-sign Detail Recorded Client Recorded Date Recorded By Document 12/25/23 11:36 [employer] 12/25/23 11:42 KW Document 12/31/23 10:01 [facility] [employer] 12/31/23 10:02 [facility] 12/25/23 12/31/23 11:36 10:01 Vital Signs Temperature (97.8 F-99.1 F) 98.0 F Temperature Source Temporal Pulse Rate (60-100) 70 Pulse Location Monitor Respiratory Rate (12-18) 18 Respiratory rate source Observation Oxygen Delivery Method Room Air Blood Pressure (90/60-120/80) 142/63 H Blood Pressure Mean (mm Hg) 89 Source Monitor Position Semi-Fowlers Blood Pressure Location Left Arm Pain Scale: 0-10 Numeric Is Patient Pain Free? Yes Yes Wound Care Center Nurse 3 #1 L Med Ankle -Primary Dressing Applied Promogran Optilok 6.5x10 Abran Matter -Primary Dressing Covered/Secured with Dry Gauze & Dry Gauze Roll Gauze, Secured with Tape -NPWT pad and protect -Optilok 6.5x10 1 -Promogran Abran Matter 1 Left -Multi-Layered Wrap Application Multi-Layer Comp - Left ($) -Tubular Bandage Single Layer -Size of Tubigrip Used Size D -Size D ($) 2 -Other sent extra. to wear until gets compression stockings WC - Visit Discharge Discharge Condition Stable Stable Ambulatory Status Ambulatory Ambulatory Transportation Private Auto Private Auto Medication Reconcilliation completed & No provided to patient/care provider Clinical Summary of Care Provided Yes Assessment/Plan Assessment/Plan (1) Delayed wound healing: CODE(S): T14.8XXD - Other injury of unspecified body region, subsequent encounter (2) Non-pressure chronic ulcer of left ankle with necrosis of muscle: CODE(S): L97.323 - Non-pressure chronic ulcer of left ankle with necrosis of muscle (3) Venous insufficiency (chronic) (peripheral): CODE(S): I87.2 - Venous insufficiency (chronic) (peripheral) (4) Obesity: CODE(S): E66.9 - Obesity, unspecified (5) Iron deficiency anemia: CODE(S): D50.9 - Iron deficiency anemia, unspecified PLAN: Plan Patient seen and evaluated Left lower extremity: There is ulceration noted to the medial aspect of the leftlower extremity/ankle with healthy granular tissue with some serosanguineous drainage. Ulceration is noted to be overlying the neurovascular bundle. Negative Stemmer sign left foot. There is evidence of stasis dermatitis with hyperpigmentation/hemosiderin staining of the left lower extremity. Ulceration has healed today. No signs of infection. Discussed applying protective Band-Aid over the fresh sensitive skin for the next 7 to 10 days. He is tocontinue to wear double Tubigrip stocking and following the 7 to 10-day. Transition to his prescription compression stockings to prevent recidivism of wound. I discussed continued elevation of the lower extremity at all times of rest to aid in edema control. I discussed once ulceration is healed he is to return to a prescription based compression stocking. Discussed updating stockings every 6 to 9 months to ensure proper uniform compression to treat his chronic venous insufficiency and to reduce recidivism of wound. LEAS performed 09/02/23 demonstrates right RONEN 1.31, normal. TBI and Doppler/PVR waveforms of right leg normal at rest; left RONEN 1.38, normal. TBI and Doppler/PVR waveforms of the left leg normal at rest. Venous studies performed 09/02/2023 demonstrates no evidence of bilateral lower extremity DVT. Bilateral great saphenous veins appear patent and compressible segmentally. Positive for reflux right popliteal vein, great saphenous vein in. Positive for reflux left popliteal vein, saphenofemoral junction. He did see Dr. Mckee in office and plan is for venogram to assess for central obstruction, he will continue to follow with vascular. Procedure to take place 01/06/24. Discussed proper diet to increase protein intake to aid in wound healing. Recommended Vladimir supplementation. Discussed reducing foods with salty content to aid in edema control. Discussed avoidance of prolonged standing or legs dangling over side of chair/bed. Discussed with patient the depth of the ulcerative site and close proximity to the neurovascular bundle. Discussed with him signs and symptoms of infection. Discussed if he notices redness about the ulcerative site moving up the leg, purulent drainage from the wound site, foul increasing odor from the wound, or if he experiences fever greater than 101 degree, nausea, vomiting, chills/rigor,that these are signs of progressing infection and he should report to the ED to receive IV antibiotics. Patient and voiced understanding of this. The following work up and care recommendations were made: Dressing: Band-Aid/dry sterile dressing for next 7 to 10 days for protection, double Tubigrip stocking. Wash: Soap and water Tissue growth optimization: None Offload: To ensure no pressure to the medial ankle/hindfoot Vascular: DP and PT pulses palpable with adequate capillary fill to digits. Edema: Discussed elevation of lower extremities at times of rest. Continue compression stockings. Infection: No signs of infection. Pain: May take Tylenol extra strength for discomfort Host factors: Chronic venous insufficiency He will undergo venogram with Dr. Mckee on 01/06/2024. At this time his wound is healed and he is being discharged from the wound center today I answered all the patient's questions. To return to the wound healing center as needed or call sooner if the patient has any questions or concerns. 12/31/23 1253 <Electronically signed by Merrill Burns DPM> Cosigner Signature (if applicable): CC: ~ Signed [facility] Work Phone: 1(915) 199-658202-29-2024 Progress note Author Merrill Burns [facility] December 17, 2023 11:56am Note Date/Time December 17, 2023 9:42am [facility] [address] [place] [address] Progress Note - Wound Care 12/17/2338 MR#: [id number] Acct: [id number] Name: WELLINGTON GONZALEZ Rep #:[id number] : 1945 78 From: Merrill machado DPM PCP: Dr. Randa Joseph, DO Status:REG RCR Location: History of Present Illness Date of Service: 12/17/23 Chief Complaint: Left medial ankle wound History of Wound: 78-year-old male presents for follow-up on right lateral anklewound. Presents today due to new blister formation to anterior lateral ankle. typically a patient of Dr. Burns's but presented earlier due to concern for blister. No other complaints today. 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 He continues to change dressings daily with Abran. He continues to follow with regarding his chronic venous insufficiency and will have procedure done next , 12/24/23. States wound continues to improve and is almost healed. Denies constitutional symptoms. Denies further complaints. Objective Data Objective Data Vital Signs: Vital Signs Temp Pulse Resp BP O2 Del Method 97.1 F L 71 18 143/73 H Room Air 12/17/23 09:21 12/17/23 09:21 12/17/23 09:21 12/17/23 09:21 12/17/23 09:21 Oxygen Delivery Method Room Air Weight: 99.159 kg Body Mass Index (BMI) 28.8 Physical Exam Const alert, oriented x3 and no apparent distress General Appearance: cooperative HEENT normocephalic Eyes Eyes Narrative: Wears glasses General Eye: normal appearance of both eyes Neck General: normal visual inspection Lymph Lymphatic: no lymphadenopathy noted and no lymphedema noted Resp normal respiratory effort Cardio regular rate and regular rhythm Extremity normal capillary refill, no joint enlargement, no calf tenderness and no pedal edema Extremity Narrative: Vascular: DP and PT pulses weakly palpable. Capillary fill time to the digits is 5 seconds. Normal temperature gradient. There is absent hair growth to the digits noted. Dermatological: There is ulceration noted to the medial aspect of the left lowerextremity/ankle with healthy granular layer and serosanguineous drainage. Ulceration is noted to be overlying the neurovascular bundle. Negative Stemmer sign left foot. There is evidence of stasis dermatitis with hyperpigmentation/hemosiderin staining of the left lower extremity. Musculoskeletal: Muscle strength 5 of 5 age-appropriate. Skin no rashes or lesions noted, skin turgor normal and no jaundice Neuro moves all extremities Debridement Note Debridement Note No debridement was completed: No debridement was completed today Post-Debridement Measurements and Additional Note: Post-Debridement Measurements/Treatment - Nurse 1 - General Ulcer Assessment Start: 11/19/23 09:31 Freq: Status: Active Protocol: LA NENA.JESUS Activity Type Activity Date Activity User E-sign Co-sign Detail Recorded Client Recorded Date Recorded By Document 11/19/23 09:33 KW Desktop 11/19/23 09:44 KW Document 11/26/23 09:22 KW Desktop 11/26/23 09:25 KW Document 12/03/23 09:18 DL Desktop 12/03/23 09:22 DL Document 12/10/23 09:04 DL Desktop 12/10/23 09:13 DL Document 12/17/23 09:21 KW Desktop 12/17/23 09:26 KW 11/19/23 11/26/23 12/03/23 09:33 09:22 09:18 - Today's Visit Information Type of service Follow-up Visit Follow-up Visit Follow-up Visit (Physician/PROVIDER ENROLLMENT SPECIALIST (Physician/PROVIDER ENROLLMENT SPECIALIST (Physician/PROVIDER ENROLLMENT SPECIALIST ) ) ) Arrival Mode Ambulatory Ambulatory Ambulatory Transfer Assistance None Patient Identification Verified (Name & Yes Yes Yes ) Patient Requires Transmission-Based No Precautions Height and Weight Body Mass Index (BMI) 28.8 28.8 28.8 BMI Classification Overweight Overweight Overweight Vital Signs Temperature (97.8 F-99.1 F) 94.5 F L 96.7 F L Temperature Source Temporal Temporal Pulse Rate (60-100) 67 71 73 Pulse Location Monitor Monitor Monitor Respiratory Rate (12-18) 18 18 20 H Respiratory rate source Observation Observation Observation Oxygen Delivery Method Room Air Room Air Blood Pressure (90/60-120/80) 164/97 H 137/88 H 131/71 H Blood Pressure Mean (mm Hg) 119 104 91 Source Monitor Monitor Monitor Position Semi-Fowlers Semi-Fowlers Blood Pressure Location Right Forearm Left Arm History Since Last Visit- (Skip if this is Patient's initial visit) Have you changed medications since your No No No last visit? Any new allergies or adverse reactions No No No Had a fall/change in ADL's that may No No No increase risk of falls Signs or symptoms of abuse and/or No No No neglect since last visit Have you been in the hospital since your No No No last visit? Has dressing in place as prescribed Yes Yes Yes Has compression in place as prescribed Yes Yes Yes Has offloadiing in place as prescribed N/A N/A N/A Experienced any changes in pain level or No No No management Left Footwear Regular Shoe Regular Shoe Slipper Right Footwear Regular Shoe Regular Shoe Slipper Pain Scale: 0-10 Numeric Is Patient Pain Free? Yes Yes Yes 12/10/23 12/17/23 09:04 09:21 WC - Today's Visit Information Type of service Follow-up Visit Follow-up Visit (Physician/PROVIDER ENROLLMENT SPECIALIST (Physician/PROVIDER ENROLLMENT SPECIALIST ) ) Arrival Mode Ambulatory Ambulatory Transfer Assistance None Patient Identification Verified (Name & Yes Yes ) Patient Requires Transmission-Based No Precautions Height and Weight Body Mass Index (BMI) 28.8 28.8 BMI Classification Overweight Overweight Vital Signs Temperature (97.8 F-99.1 F) 97.3 F L 97.1 F L Temperature Source Temporal Temporal Pulse Rate (60-100) 68 71 Pulse Location Monitor Monitor Respiratory Rate (12-18) 20 H 18 Respiratory rate source Observation Observation Oxygen Delivery Method Room Air Blood Pressure (90/60-120/80) 142/87 H 143/73 H Blood Pressure Mean (mm Hg) 105 96 Source Monitor Monitor Position Semi-Fowlers Blood Pressure Location Left Arm History Since Last Visit- (Skip if this is Patient's initial visit) Have you changed medications since your No No last visit? Any new allergies or adverse reactions No No Had a fall/change in ADL's that may No No increase risk of falls Signs or symptoms of abuse and/or No No neglect since last visit Have you been in the hospital since your No No last visit? Has dressing in place as prescribed Yes Yes Has compression in place as prescribed Yes Yes Has offloadiing in place as prescribed N/A N/A Experienced any changes in pain level or No No management Left Footwear Regular Shoe Right Footwear Regular Shoe Pain Scale: 0-10 Numeric Is Patient Pain Free? Yes Yes WC - Nurse 1 - General Ulcer Measurement Start: 11/19/23 09:31 Freq: Status: Active Protocol: Activity Type Activity Date Activity User E-sign Co-sign Detail Recorded Client Recorded Date Recorded By Document 11/19/23 09:33 KW Desktop 11/19/23 09:44 KW Document 11/26/23 09:22 KW Desktop 11/26/23 09:25 KW Document 12/03/23 09:18 DL Desktop 12/03/23 09:22 DL Document 12/10/23 09:04 DL Desktop 12/10/23 09:13 DL Document 12/17/23 09:21 KW Desktop 12/17/23 09:26 KW 11/19/23 11/26/23 12/03/23 09:33 09:22 09:18 Wound Center Nurse 1 #1 L Med Ankle -Current Size (cm) - Length 1.5 0.1 0.1 -Current Size (cm) - Width 1.5 0.1 0.1 -Current Size (cm) - Depth 0.1 0.1 0.1 -Total Square Cm 2.25 0.01 0.01 -Date of Last Picture (Recall this 11/26/23 field) -Photo Taken Yes -Exudate Amt Medium Small -Exudate Type Serosanguineous Serosanguineous -Wound Margin Distinct, Thickened Outline Attached -Granulation Amt None Present (0 %) -Granulation Quality -Necrosis Amt Large (67-100%) -Necrotic Tissue Type Eschar -Structure Exposed N/A -Texture (Megan-wound Skin Appearance) Assessed Scarring -Moisture (Megan-wound Skin Appearance) Assessed No Abnormality -Color (Megan-wound Skin Appearance) Assessed No Abnormality -Temperature (Megan-wound Skin No Abnormality No Abnormality Appearance) (Pt Warm) (Pt Warm) -Tenderness on Palpation (Megan-wound Skin Appearance) -Ulcer Cleansing Soap and Water Soap and Water Soap and Water -Foul Odor after Cleansing No -Anesthetic Used 5% Lidocaine 5% Lidocaine 5% Lidocaine Gel Gel Gel -Wound Comment(s) SCABBED Right Calf (cm) 36.5 Right Ankle (cm) 24.5 Point of Measurement (cm from the distal point) Left Calf (cm) 36.4 37.3 Point of measurement (cm from the medial instep) Left Ankle (cm) 21.5 22 12/10/23 12/17/23 09:04 09:21 Wound Center Nurse 1 #1 L Med Ankle -Current Size (cm) - Length 1.1 0.1 -Current Size (cm) - Width 1.2 0.1 -Current Size (cm) - Depth 0.1 0.1 -Total Square Cm 1.32 0.01 -Date of Last Picture (Recall this 12/17/23 field) -Photo Taken Yes -Exudate Amt Small -Exudate Type Serosanguineous -Wound Margin Distinct, Outline Attached -Granulation Amt Medium (34-66%) -Granulation Quality Brea,Red -Necrosis Amt Medium (34-66%) -Necrotic Tissue Type Adherent Slough -Structure Exposed N/A -Texture (Megan-wound Skin Appearance) Localized Edema ,Scarring -Moisture (Megan-wound Skin Appearance) No Abnormality -Color (Megan-wound Skin Appearance) Erythema -Temperature (Megan-wound Skin No Abnormality Appearance) (Pt Warm) -Tenderness on Palpation (Megan-wound No Skin Appearance) -Ulcer Cleansing Soap and Water Soap and Water -Foul Odor after Cleansing No -Anesthetic Used 5% Lidocaine 5% Lidocaine Gel Gel -Wound Comment(s) C/O Increased scabbed pain to ulcer this week Right Calf (cm) Right Ankle (cm) Point of Measurement (cm from the distal 36.5 point) Left Calf (cm) 46.4 Point of measurement (cm from the medial 21 instep) Left Ankle (cm) 21.4 WC - Nurse 2 - General Ulcer CM Notes Start: 11/19/23 09:31 Freq: Status: Active Protocol: Activity Type Activity Date Activity User E-sign Co-sign Detail Recorded Client Recorded Date Recorded By Document 11/19/23 10:33 PL Tablet 11/19/23 10:38 PL Document 11/26/23 12:02 PL [id number] 11/26/23 12:04 PL Document 12/03/23 09:50 PL Tablet 12/03/23 09:51 PL Document 12/10/23 12:10 PL [id number] 12/10/23 12:10 PL Document 12/17/23 09:34 JF Laptop 12/17/23 09:34 JF 11/19/23 11/26/23 12/03/23 10:33 12:02 09:50 Wound Center Nurse 2 #1 L Med Ankle -Time 09:55 09:38 09:35 -Correct Patient Yes Yes Yes -Correct Side, Site, Position Yes Yes Yes -Correct Procedure Yes Yes Yes -Procedure Performed Yes Yes Yes -Type of Procedure Debridement Debridement Debridement -Clinical Debridement Subcutaneous Subcutaneous Subcutaneous -Tissue Removed Subcutaneous Subcutaneous Subcutaneous -Post Debridement (cm) - Length 1.3 1.0 0.5 -Post Debridement (cm) - Width 0.7 1.1 0.7 -Post Debridement (cm) - Depth 0.1 0.1 0.1 -Total Square (Post) (cm) 0.91 1.10 0.35 -Area of Debridement (cm) - Length 1.3 1.0 0.5 -Area of Debridement (cm) - Width 0.7 1.1 0.7 -Total Square (Area) (cm) 0.91 1.10 0.35 -Tunneling No No No -Undermining/Tunneling No No No -Circular Undermining No No No -Wound/Ulcer Outcome Not Healed Not Healed Not Healed -Ulcer Cleansing Rinsed/ Rinsed/ Rinsed/ Irrigated with Irrigated with Irrigated with Saline Saline Saline -Foul Odor after Cleansing No No No -Bioengineered Tissue Yes Yes -Type of Bioengineered Tissue Epifix 18mm Epifix 18mm Disc Disc -Expiration Date 07/19/28 07/19/28 -Product Lot Number [id number] -Percent Used 100 100 -Bleeding Controlled with Pressure Pressure Pressure -Treatment Response Procedure Procedure Procedure Tolerated Well Tolerated Well Tolerated Well -Debridement - Subq, 1st 20sq cm No No Yes -Apply Skin Sub - 1st 25 sq cm - Legs 1 1 -Epifix 18mm Disc 3 3 Pain Scale: 0-10 Numeric Is Patient Pain Free? Yes Yes Yes 12/10/23 12/17/23 12:10 09:34 Wound Center Nurse 2 #1 L Med Ankle -Time 09:31 -Correct Patient Yes No -Correct Side, Site, Position Yes No -Correct Procedure Yes No -Procedure Performed Yes No -Type of Procedure Debridement -Clinical Debridement Subcutaneous -Tissue Removed Subcutaneous -Post Debridement (cm) - Length 0.5 0.1 -Post Debridement (cm) - Width 0.5 0.1 -Post Debridement (cm) - Depth 0.1 0.1 -Total Square (Post) (cm) 0.25 0.01 -Area of Debridement (cm) - Length 0.5 0.1 -Area of Debridement (cm) - Width 0.5 0.1 -Total Square (Area) (cm) 0.25 0.01 -Tunneling No -Undermining/Tunneling No -Circular Undermining No -Wound/Ulcer Outcome Not Healed Not Healed -Ulcer Cleansing Rinsed/ Irrigated with Saline -Foul Odor after Cleansing No -Bioengineered Tissue No -Type of Bioengineered Tissue -Expiration Date -Product Lot Number -Percent Used -Bleeding Controlled with Pressure -Treatment Response Procedure Tolerated Well -Debridement - Subq, 1st 20sq cm Yes -Apply Skin Sub - 1st 25 sq cm - Legs -Epifix 18mm Disc Pain Scale: 0-10 Numeric Is Patient Pain Free? Yes Yes - Nurse 3 - General Ulcer D/C NN Start: 11/19/23 09:31 Freq: Status: Active Protocol: Activity Type Activity Date Activity User E-sign Co-sign Detail Recorded Client Recorded Date Recorded By Document 11/19/23 10:07 KW Desktop 11/19/23 10:07 KW Document 11/26/23 09:59 JF Laptop 11/26/23 09:59 JF Document 12/03/23 09:45 KW Desktop 12/03/23 09:46 KW Document 12/10/23 09:37 KW Desktop 12/10/23 09:38 KW 11/19/23 11/26/23 12/03/23 10:07 09:59 09:45 Wound Care Center Nurse 3 #1 L Med Ankle -Primary Dressing Applied Optilok 6.5x10 Promogran Abran Matter -Primary Dressing Covered/Secured with Dry Gauze & Dry Gauze & Roll Gauze, Roll Gauze, Secured with Secured with Tape Tape -Other Covering adb pad -Optilok 6.5x10 1 -Promogran Abran Matter 1 Left -Lotion applied to leg before Yes compression wrap -Multi-Layered Wrap Application Multi-Layer Multi-Layer Multi-Layer Comp - Left ($) Comp - Left ($) Comp - Left ($) Pain Scale: 0-10 Numeric Is Patient Pain Free? Yes Yes Yes WC - Visit Discharge Discharge Condition Stable Stable Stable Ambulatory Status Ambulatory Ambulatory Ambulatory Transportation Private Auto Private Auto Private Auto Medication Reconcilliation completed & No Yes No provided to patient/care provider Clinical Summary of Care Provided Yes Yes Yes 12/10/23 09:37 Wound Care Center Nurse 3 #1 L Med Ankle -Primary Dressing Applied Promogran Abran Matter -Primary Dressing Covered/Secured with Dry Gauze & Roll Gauze, Secured with Tape -Other Covering -Optilok 6.5x10 -Promogran Abran Matter 1 Left -Lotion applied to leg before compression wrap -Multi-Layered Wrap Application Multi-Layer Comp - Left ($) Pain Scale: 0-10 Numeric Is Patient Pain Free? Yes WC - Visit Discharge Discharge Condition Stable Ambulatory Status Ambulatory Transportation Private Auto Medication Reconcilliation completed & No provided to patient/care provider Clinical Summary of Care Provided Yes Assessment/Plan Assessment/Plan (1) Non-pressure chronic ulcer of left ankle with necrosis of muscle: CODE(S): L97.323 - Non-pressure chronic ulcer of left ankle with necrosis of muscle (2) Delayed wound healing: CODE(S): T14.8XXD - Other injury of unspecified body region, subsequent encounter (3) Venous insufficiency (chronic) (peripheral): CODE(S): I87.2 - Venous insufficiency (chronic) (peripheral) (4) Bacterial infection due to Pseudomonas: CODE(S): A49.8 - Other bacterial infections of unspecified site (5) Iron deficiency anemia: CODE(S): D50.9 - Iron deficiency anemia, unspecified (6) Obesity: CODE(S): E66.9 - Obesity, unspecified PLAN: Plan Patient seen and evaluated Left lower extremity: There is ulceration noted to the medial aspect of the leftlower extremity/ankle with healthy granular tissue with some serosanguineous drainage. Ulceration is noted to be overlying the neurovascular bundle. Negative Stemmer sign left foot. There is evidence of stasis dermatitis with hyperpigmentation/hemosiderin staining of the left lower extremity. Ulceration underwent debridement as noted in the clinical panel above. Ulceration measures 0.1 cm x 0.1 cm x 0.1 cm. No signs of infection. Skin maceration resolved with less drainage and wound is granulating in well. He hascompleted all 10 EpiFix graft applications. Abran applied to the wound base today with dry sterile dressing. 3M compression wrap applied to lower extremity. He was instructed to not get the dressing wet. Ulceration continues to demonstrate reduction in size versus previous visits andis almost healed. Overall tissue continues improvement with minimal drainage. Discussed if he soaks through dressing to call and return for new dressing/compression wrap application. I discussed continued elevation of the lower extremity at all times of rest to aid in edema control. I discussed once ulceration is healed he is to return to a prescription based compression stocking. Discussed updating stockings every 6 to 9 months to ensure proper uniform compression to treat his chronic venous insufficiency and to reduce recidivism of wound. LEAS performed 09/02/23 demonstrates right RONEN 1.31, normal. TBI and Doppler/PVR waveforms of right leg normal at rest; left RONEN 1.38, normal. TBI and Doppler/PVR waveforms of the left leg normal at rest. Venous studies performed 09/02/2023 demonstrates no evidence of bilateral lower extremity DVT. Bilateral great saphenous veins appear patent and compressible segmentally. Positive for reflux right popliteal vein, great saphenous vein in. Positive for reflux left popliteal vein, saphenofemoral junction. He did see Dr. Mckee in office and plan is for venogram to assess for central obstruction, he will continue to follow with vascular. Procedure to take place 12/24/23. Discussed proper diet to increase protein intake to aid in wound healing. Recommended Vladimir supplementation. Discussed reducing foods with salty content to aid in edema control. Discussed avoidance of prolonged standing or legs dangling over side of chair/bed. Discussed with patient the depth of the ulcerative site and close proximity to the neurovascular bundle. Discussed with him signs and symptoms of infection. Discussed if he notices redness about the ulcerative site moving up the leg, purulent drainage from the wound site, foul increasing odor from the wound, or if he experiences fever greater than 101 degree, nausea, vomiting, chills/rigor,that these are signs of progressing infection and he should report to the ED to receive IV antibiotics. Patient and voiced understanding of this. The following work up and care recommendations were made: Dressing: Abran, dry sterile dressing, 3M compression wrap left lower extremity. Wash: Soap and water Tissue growth optimization: Abran Offload: To ensure no pressure to the medial ankle/hindfoot Vascular: DP and PT pulses palpable with adequate capillary fill to digits. Edema: Discussed elevation of lower extremities at times of rest. 3M compression wrap placed. Infection: No signs of infection. Pain: May take Tylenol extra strength for discomfort Host factors: Chronic venous insufficiency He will remove 3M compression wrap night before the procedure or day of and undergo venogram with Dr. Mckee on 12/24/2023. He will then come to wound care center 12/25/2023 for application of new 3M compression wrap and then will follow with me for final wound check 12/31/2023. I answered all the patient's questions. To return to the wound healing center in 2 weeks or call sooner if the patient has any questions or concerns. 12/17/23 1156 <Electronically signed by Merrill Burns DPM> Cosigner Signature (if applicable): CC: ~ Signed [facility] Work Phone: 1(364) 363-735202-22-2024 Progress note Author Merrill Burns [facility] December 10, 2023 10:03am Note Date/Time December 10, 2023 8:58am [facility] [address] [place] [address] Progress Note - Wound Care 12/10/23 0857 MR#: [id number] Acct: [id number] Name: WELLINGTON GONZALEZ Rep #:[id number] : 1945 78 From: Merrill machado DPM PCP: Dr. Randa Joseph, DO Status:REG RCR Location: WC History of Present Illness Date of Service: 12/10/23 Chief Complaint: Left medial ankle wound History of Wound: 78-year-old male presents for follow-up on right lateral anklewound. Presents today due to new blister formation to anterior lateral ankle. typically a patient of Dr. Burns's but presented earlier due to concern for blister. No other complaints today. 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 He continues to change dressings daily with Abran. He continues to follow with regarding his chronic venous insufficiency and will have procedure done soon. States wound continues to improve. Denies constitutional symptoms. Denies further complaints. Objective Data Objective Data Vital Signs: Vital Signs Temp Pulse Resp BP O2 Del Method 96.7 F L 73 20 H 131/71 H Room Air 12/03/23 09:18 12/03/23 09:18 12/03/23 09:18 12/03/23 09:18 11/26/23 09:22 Oxygen Delivery Method Room Air Weight: 99.159 kg Body Mass Index (BMI) 28.8 Physical Exam Const alert, oriented x3 and no apparent distress General Appearance: cooperative HEENT normocephalic Eyes Eyes Narrative: Wears glasses General Eye: normal appearance of both eyes Neck General: normal visual inspection Lymph Lymphatic: no lymphadenopathy noted and no lymphedema noted Resp normal respiratory effort Cardio regular rate and regular rhythm Extremity normal capillary refill, no joint enlargement, no calf tenderness and no pedal edema Extremity Narrative: Vascular: DP and PT pulses weakly palpable. Capillary fill time to the digits is 5 seconds. Normal temperature gradient. There is absent hair growth to the digits noted. Dermatological: There is ulceration noted to the medial aspect of the left lowerextremity/ankle with healthy granular layer and serosanguineous drainage. Ulceration is noted to be overlying the neurovascular bundle. Negative Stemmer sign left foot. There is evidence of stasis dermatitis with hyperpigmentation/hemosiderin staining of the left lower extremity. Musculoskeletal: Muscle strength 5 of 5 age-appropriate. Skin no rashes or lesions noted, skin turgor normal and no jaundice Neuro moves all extremities Debridement Note Debridement Note Wound debrided: Left medial ankle Laterality: Left Wound Grade/Stage: Cisneros stage II Type of Debridement: Excisional debridement Anesthesia Used: 5% Lidocaine Gel Depth: Down to and including healthy tissue and in the subcutaneous layer Percentage of wound debrided: 100 Instrument Used: 3mm curette Tissue Removed: Fibrous, devitalized subcutaneous, biofilm, slough Severity: Fat Layer Exposed Amount of bleeding with debridement: Mild Bleeding Controlled with: Compression and gauze Patient tolerated procedure: Patient tolerated procedure well Post-Debridement Measurements and Additional Note: Post-Debridement Measurements/Treatment - Nurse 1 - General Ulcer Assessment Start: 11/19/23 09:31 Freq: Status: Active Protocol: GiveGabCHANDRAKANT Activity Type Activity Date Activity User E-sign Co-sign Detail Recorded Client Recorded Date Recorded By Document 11/19/23 09:33 KW Desktop 11/19/23 09:44 KW Document 11/26/23 09:22 KW Desktop 11/26/23 09:25 KW Document 12/03/23 09:18 DL Desktop 12/03/23 09:22 DL 11/19/23 11/26/23 12/03/23 09:33 09:22 09:18 - Today's Visit Information Type of service Follow-up Visit Follow-up Visit Follow-up Visit (Physician/PROVIDER ENROLLMENT SPECIALIST (Physician/PROVIDER ENROLLMENT SPECIALIST (Physician/PROVIDER ENROLLMENT SPECIALIST ) ) ) Arrival Mode Ambulatory Ambulatory Ambulatory Transfer Assistance None Patient Identification Verified (Name & Yes Yes Yes ) Patient Requires Transmission-Based No Precautions Height and Weight Body Mass Index (BMI) 28.8 28.8 28.8 BMI Classification Overweight Overweight Overweight Vital Signs Temperature (97.8 F-99.1 F) 94.5 F L 96.7 F L Temperature Source Temporal Temporal Pulse Rate (60-100) 67 71 73 Pulse Location Monitor Monitor Monitor Respiratory Rate (12-18) 18 18 20 H Respiratory rate source Observation Observation Observation Oxygen Delivery Method Room Air Room Air Blood Pressure (90/60-120/80) 164/97 H 137/88 H 131/71 H Blood Pressure Mean (mm Hg) 119 104 91 Source Monitor Monitor Monitor Position Semi-Fowlers Semi-Fowlers Blood Pressure Location Right Forearm Left Arm History Since Last Visit- (Skip if this is Patient's initial visit) Have you changed medications since your No No No last visit? Any new allergies or adverse reactions No No No Had a fall/change in ADL's that may No No No increase risk of falls Signs or symptoms of abuse and/or No No No neglect since last visit Have you been in the hospital since your No No No last visit? Has dressing in place as prescribed Yes Yes Yes Has compression in place as prescribed Yes Yes Yes Has offloadiing in place as prescribed N/A N/A N/A Experienced any changes in pain level or No No No management Left Footwear Regular Shoe Regular Shoe Slipper Right Footwear Regular Shoe Regular Shoe Slipper Pain Scale: 0-10 Numeric Is Patient Pain Free? Yes Yes Yes WC - Nurse 1 - General Ulcer Measurement Start: 11/19/23 09:31 Freq: Status: Active Protocol: Activity Type Activity Date Activity User E-sign Co-sign Detail Recorded Client Recorded Date Recorded By Document 11/19/23 09:33 KW Desktop 11/19/23 09:44 KW Document 11/26/23 09:22 KW Desktop 11/26/23 09:25 KW Document 12/03/23 09:18 DL Desktop 12/03/23 09:22 DL 11/19/23 11/26/23 12/03/23 09:33 09:22 09:18 Wound Center Nurse 1 #1 L Med Ankle -Current Size (cm) - Length 1.5 0.1 0.1 -Current Size (cm) - Width 1.5 0.1 0.1 -Current Size (cm) - Depth 0.1 0.1 0.1 -Total Square Cm 2.25 0.01 0.01 -Date of Last Picture (Recall this 11/26/23 field) -Photo Taken Yes -Exudate Amt Medium Small -Exudate Type Serosanguineous Serosanguineous -Wound Margin Distinct, Thickened Outline Attached -Granulation Amt None Present (0 %) -Necrosis Amt Large (67-100%) -Necrotic Tissue Type Eschar -Structure Exposed N/A -Texture (Megan-wound Skin Appearance) Assessed Scarring -Moisture (Megan-wound Skin Appearance) Assessed No Abnormality -Color (Megan-wound Skin Appearance) Assessed No Abnormality -Temperature (Megan-wound Skin No Abnormality No Abnormality Appearance) (Pt Warm) (Pt Warm) -Ulcer Cleansing Soap and Water Soap and Water Soap and Water -Foul Odor after Cleansing No -Anesthetic Used 5% Lidocaine 5% Lidocaine 5% Lidocaine Gel Gel Gel -Wound Comment(s) SCABBED Right Calf (cm) 36.5 Right Ankle (cm) 24.5 Left Calf (cm) 36.4 37.3 Left Ankle (cm) 21.5 22 WC - Nurse 2 - General Ulcer CM Notes Start: 11/19/23 09:31 Freq: Status: Active Protocol: Activity Type Activity Date Activity User E-sign Co-sign Detail Recorded Client Recorded Date Recorded By Document 11/19/23 10:33 PL Tablet 11/19/23 10:38 PL Document 11/26/23 12:02 PL [id number] 11/26/23 12:04 PL Document 12/03/23 09:50 PL Tablet 12/03/23 09:51 PL 11/19/23 11/26/23 12/03/23 10:33 12:02 09:50 Wound Center Nurse 2 #1 L Med Ankle -Time 09:55 09:38 09:35 -Correct Patient Yes Yes Yes -Correct Side, Site, Position Yes Yes Yes -Correct Procedure Yes Yes Yes -Procedure Performed Yes Yes Yes -Type of Procedure Debridement Debridement Debridement -Clinical Debridement Subcutaneous Subcutaneous Subcutaneous -Tissue Removed Subcutaneous Subcutaneous Subcutaneous -Post Debridement (cm) - Length 1.3 1.0 0.5 -Post Debridement (cm) - Width 0.7 1.1 0.7 -Post Debridement (cm) - Depth 0.1 0.1 0.1 -Total Square (Post) (cm) 0.91 1.10 0.35 -Area of Debridement (cm) - Length 1.3 1.0 0.5 -Area of Debridement (cm) - Width 0.7 1.1 0.7 -Total Square (Area) (cm) 0.91 1.10 0.35 -Tunneling No No No -Undermining/Tunneling No No No -Circular Undermining No No No -Wound/Ulcer Outcome Not Healed Not Healed Not Healed -Ulcer Cleansing Rinsed/ Rinsed/ Rinsed/ Irrigated with Irrigated with Irrigated with Saline Saline Saline -Foul Odor after Cleansing No No No -Bioengineered Tissue Yes Yes -Type of Bioengineered Tissue Epifix 18mm Epifix 18mm Disc Disc -Expiration Date 07/19/28 07/19/28 -Product Lot Number [id number] -Percent Used 100 100 -Bleeding Controlled with Pressure Pressure Pressure -Treatment Response Procedure Procedure Procedure Tolerated Well Tolerated Well Tolerated Well -Debridement - Subq, 1st 20sq cm No No Yes -Apply Skin Sub - 1st 25 sq cm - Legs 1 1 -Epifix 18mm Disc 3 3 Pain Scale: 0-10 Numeric Is Patient Pain Free? Yes Yes Yes - Nurse 3 - General Ulcer D/C NN Start: 11/19/23 09:31 Freq: Status: Active Protocol: Activity Type Activity Date Activity User E-sign Co-sign Detail Recorded Client Recorded Date Recorded By Document 11/19/23 10:07 [email or web address] 11/19/23 10:07 [facility] Document 11/26/23 09:59 [facility] Laptop 11/26/23 09:59 [facility] Document 12/03/23 09:45 KW [place] 12/03/23 09:46 KW 11/19/23 11/26/23 12/03/23 10:07 09:59 09:45 Wound Care Center Nurse 3 #1 L Med Ankle -Primary Dressing Applied Optilok 6.5x10 Promogran Abran Matter -Primary Dressing Covered/Secured with Dry Gauze & Dry Gauze & Roll Gauze, Roll Gauze, Secured with Secured with Tape Tape -Other Covering adb pad -Optilok 6.5x10 1 -Promogran Abran Matter 1 Left -Lotion applied to leg before Yes compression wrap -Multi-Layered Wrap Application Multi-Layer Multi-Layer Multi-Layer Comp - Left ($) Comp - Left ($) Comp - Left ($) Pain Scale: 0-10 Numeric Is Patient Pain Free? Yes Yes Yes - Visit Discharge Discharge Condition Stable Stable Stable Ambulatory Status Ambulatory Ambulatory Ambulatory Transportation Private Auto Private Auto Private Auto Medication Reconcilliation completed & No Yes No provided to patient/care provider Clinical Summary of Care Provided Yes Yes Yes Assessment/Plan Assessment/Plan (1) Non-pressure chronic ulcer of left ankle with necrosis of muscle: CODE(S): L97.323 - Non-pressure chronic ulcer of left ankle with necrosis of muscle (2) Delayed wound healing: CODE(S): T14.8XXD - Other injury of unspecified body region, subsequent encounter (3) Venous insufficiency (chronic) (peripheral): CODE(S): I87.2 - Venous insufficiency (chronic) (peripheral) (4) Bacterial infection due to Pseudomonas: CODE(S): A49.8 - Other bacterial infections of unspecified site (5) Iron deficiency anemia: CODE(S): D50.9 - Iron deficiency anemia, unspecified (6) Obesity: CODE(S): E66.9 - Obesity, unspecified PLAN: Plan Patient seen and evaluated Left lower extremity: There is ulceration noted to the medial aspect of the leftlower extremity/ankle with healthy granular tissue with some serosanguineous drainage. Ulceration is noted to be overlying the neurovascular bundle. Negative Stemmer sign left foot. There is evidence of stasis dermatitis with hyperpigmentation/hemosiderin staining of the left lower extremity. Ulceration underwent debridement as noted in the clinical panel above. Ulceration measures 0.5 cm x 0.5 cm x 0.1 cm. No signs of infection. Skin maceration resolved with less drainage and wound is granulating in well. He hascompleted all 10 EpiFix graft applications. Abran applied to the wound base today with dry sterile dressing. 3M compression wrap applied to lower extremity. He was instructed to not get the dressing wet. Ulceration continues to demonstrate reduction in size versus previous visits. Overall tissue continues improvement with less drainage. Discussed if he soaks through dressing to call and return for new dressing/compression wrap application. I discussed continued elevation of the lower extremity at all times of rest to aid in edema control. I discussed once ulceration is healed he is to return to a prescription based compression stocking. Discussed updating stockings every 6 to 9 months to ensure proper uniform compression to treat his chronic venous insufficiency and to reduce recidivism of wound. LEAS performed 09/02/23 demonstrates right RONEN 1.31, normal. TBI and Doppler/PVR waveforms of right leg normal at rest; left RONEN 1.38, normal. TBI and Doppler/PVR waveforms of the left leg normal at rest. Venous studies performed 09/02/2023 demonstrates no evidence of bilateral lower extremity DVT. Bilateral great saphenous veins appear patent and compressible segmentally. Positive for reflux right popliteal vein, great saphenous vein in. Positive for reflux left popliteal vein, saphenofemoral junction. He did see Dr. Mckee in office and plan is for venogram to assess for central obstruction, he will continue to follow with vascular. Discussed proper diet to increase protein intake to aid in wound healing. Recommended Vladimir supplementation. Discussed reducing foods with salty content to aid in edema control. Discussed avoidance of prolonged standing or legs dangling over side of chair/bed. Discussed with patient the depth of the ulcerative site and close proximity to the neurovascular bundle. Discussed with him signs and symptoms of infection. Discussed if he notices redness about the ulcerative site moving up the leg, purulent drainage from the wound site, foul increasing odor from the wound, or if he experiences fever greater than 101 degree, nausea, vomiting, chills/rigor,that these are signs of progressing infection and he should report to the ED to receive IV antibiotics. Patient and voiced understanding of this. The following work up and care recommendations were made: Dressing: Abran, dry sterile dressing, 3M compression wrap left lower extremity. Wash: Soap and water Tissue growth optimization: Abran Offload: To ensure no pressure to the medial ankle/hindfoot Vascular: DP and PT pulses palpable with adequate capillary fill to digits. Edema: Discussed elevation of lower extremities at times of rest. 3M compression wrap placed. Infection: No signs of infection. Pain: May take Tylenol extra strength for discomfort Host factors: Chronic venous insufficiency I answered all the patient's questions. To return to the wound healing center in 1 week or call sooner if the patient has any questions or concerns. 12/10/23 1003 <Electronically signed by Merrill Burns DPM> Cosigner Signature (if applicable): CC: ~ Signed [facility] Work Phone: 1([phone] 446-941302-15-2024 Progress note Author Merrill Burns [facility] December 03, 2023 9:48am Note Date/Time December 03, 2023 9:49am [facility] [address] [place] [address] Progress Note - Wound Care 12/03/23 0945 MR#: [id number] Acct: [id number] Name: WELLINGTON GONZALEZ Allison Rep #:[id number] : 1945 78 From: Merrill machado DPM PCP: Dr. Randa Joseph, DO Status:REG RCR Location: History of Present Illness Date of Service: 12/03/23 Chief Complaint: Left medial ankle wound History of Wound: 78-year-old male presents for follow-up on right lateral anklewound. Presents today due to new blister formation to anterior lateral ankle. typically a patient of Dr. Burns's but presented earlier due to concern for blister. No other complaints today. 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 He has left grafting product in place and is keeping compression dressing dry. He is continuing his infusions of IV Zosyn and will complete 6-week course per infectious disease. He continues to follow with Dr. Mckee regarding his chronic venous insufficiency. States wound continues to improve. Denies constitutional symptoms. Denies further complaints. Objective Data Objective Data Vital Signs: Vital Signs Temp Pulse Resp BP O2 Del Method 96.7 F L 73 20 H 131/71 H Room Air 12/03/23 09:18 12/03/23 09:18 12/03/23 09:18 12/03/23 09:18 11/26/23 09:22 Oxygen Delivery Method Room Air Weight: 99.159 kg Body Mass Index (BMI) 28.8 Physical Exam Const alert, oriented x3 and no apparent distress General Appearance: cooperative HEENT normocephalic Eyes Eyes Narrative: Wears glasses General Eye: normal appearance of both eyes Neck General: normal visual inspection Lymph Lymphatic: no lymphadenopathy noted and no lymphedema noted Resp normal respiratory effort Cardio regular rate and regular rhythm Extremity normal capillary refill, no joint enlargement, no calf tenderness and no pedal edema Extremity Narrative: Vascular: DP and PT pulses weakly palpable. Capillary fill time to the digits is 5 seconds. Normal temperature gradient. There is absent hair growth to the digits noted. Dermatological: There is ulceration noted to the medial aspect of the left lowerextremity/ankle with healthy granular layer and serosanguineous drainage. Ulceration is noted to be overlying the neurovascular bundle. Negative Stemmer sign left foot. There is evidence of stasis dermatitis with hyperpigmentation/hemosiderin staining of the left lower extremity. Musculoskeletal: Muscle strength 5 of 5 age-appropriate. Skin no rashes or lesions noted, skin turgor normal and no jaundice Neuro moves all extremities Debridement Note Debridement Note Wound debrided: Left medial ankle Laterality: Left Wound Grade/Stage: Cisneros stage II Type of Debridement: Excisional debridement Anesthesia Used: 5% Lidocaine Gel Depth: Down to and including healthy tissue and in the subcutaneous layer Percentage of wound debrided: 100 Instrument Used: 5mm curette Tissue Removed: Fibrous, devitalized subcutaneous, biofilm, slough Severity: Fat Layer Exposed Amount of bleeding with debridement: Mild Bleeding Controlled with: Compression and gauze Patient tolerated procedure: Patient tolerated procedure well Post-Debridement Measurements and Additional Note: Post-Debridement Measurements/Treatment WC - Nurse 1 - General Ulcer Assessment Start: 11/19/23 09:31 Freq: Status: Active Protocol: ANAYA Activity Type Activity Date Activity User E-sign Co-sign Detail Recorded Client Recorded Date Recorded By Document 11/19/23 09:33 KW Desktop 11/19/23 09:44 KW Document 11/26/23 09:22 KW Desktop 11/26/23 09:25 KW Document 12/03/23 09:18 DL Desktop 12/03/23 09:22 DL 11/19/23 11/26/23 12/03/23 09:33 09:22 09:18 - Today's Visit Information Type of service Follow-up Visit Follow-up Visit Follow-up Visit (Physician/PROVIDER ENROLLMENT SPECIALIST (Physician/PROVIDER ENROLLMENT SPECIALIST (Physician/PROVIDER ENROLLMENT SPECIALIST ) ) ) Arrival Mode Ambulatory Ambulatory Ambulatory Transfer Assistance None Patient Identification Verified (Name & Yes Yes Yes ) Patient Requires Transmission-Based No Precautions Height and Weight Body Mass Index (BMI) 28.8 28.8 28.8 BMI Classification Overweight Overweight Overweight Vital Signs Temperature (97.8 F-99.1 F) 94.5 F L 96.7 F L Temperature Source Temporal Temporal Pulse Rate (60-100) 67 71 73 Pulse Location Monitor Monitor Monitor Respiratory Rate (12-18) 18 18 20 H Respiratory rate source Observation Observation Observation Oxygen Delivery Method Room Air Room Air Blood Pressure (90/60-120/80) 164/97 H 137/88 H 131/71 H Blood Pressure Mean (mm Hg) 119 104 91 Source Monitor Monitor Monitor Position Semi-Fowlers Semi-Fowlers Blood Pressure Location Right Forearm Left Arm History Since Last Visit- (Skip if this is Patient's initial visit) Have you changed medications since your No No No last visit? Any new allergies or adverse reactions No No No Had a fall/change in ADL's that may No No No increase risk of falls Signs or symptoms of abuse and/or No No No neglect since last visit Have you been in the hospital since your No No No last visit? Has dressing in place as prescribed Yes Yes Yes Has compression in place as prescribed Yes Yes Yes Has offloadiing in place as prescribed N/A N/A N/A Experienced any changes in pain level or No No No management Left Footwear Regular Shoe Regular Shoe Slipper Right Footwear Regular Shoe Regular Shoe Slipper Pain Scale: 0-10 Numeric Is Patient Pain Free? Yes Yes Yes WC - Nurse 1 - General Ulcer Measurement Start: 11/19/23 09:31 Freq: Status: Active Protocol: Activity Type Activity Date Activity User E-sign Co-sign Detail Recorded Client Recorded Date Recorded By Document 11/19/23 09:33 KW Desktop 11/19/23 09:44 KW Document 11/26/23 09:22 KW Desktop 11/26/23 09:25 KW Document 12/03/23 09:18 DL Desktop 12/03/23 09:22 DL 11/19/23 11/26/23 12/03/23 09:33 09:22 09:18 Wound Center Nurse 1 #1 L Med Ankle -Current Size (cm) - Length 1.5 0.1 0.1 -Current Size (cm) - Width 1.5 0.1 0.1 -Current Size (cm) - Depth 0.1 0.1 0.1 -Total Square Cm 2.25 0.01 0.01 -Date of Last Picture (Recall this 11/26/23 field) -Photo Taken Yes -Exudate Amt Medium Small -Exudate Type Serosanguineous Serosanguineous -Wound Margin Distinct, Thickened Outline Attached -Granulation Amt None Present (0 %) -Necrosis Amt Large (67-100%) -Necrotic Tissue Type Eschar -Structure Exposed N/A -Texture (Megan-wound Skin Appearance) Assessed Scarring -Moisture (Megan-wound Skin Appearance) Assessed No Abnormality -Color (Megan-wound Skin Appearance) Assessed No Abnormality -Temperature (Megan-wound Skin No Abnormality No Abnormality Appearance) (Pt Warm) (Pt Warm) -Ulcer Cleansing Soap and Water Soap and Water Soap and Water -Foul Odor after Cleansing No -Anesthetic Used 5% Lidocaine 5% Lidocaine 5% Lidocaine Gel Gel Gel -Wound Comment(s) SCABBED Right Calf (cm) 36.5 Right Ankle (cm) 24.5 Left Calf (cm) 36.4 37.3 Left Ankle (cm) 21.5 22 - Nurse 2 - General Ulcer CM Notes Start: 11/19/23 09:31 Freq: Status: Active Protocol: Activity Type Activity Date Activity User E-sign Co-sign Detail Recorded Client Recorded Date Recorded By Document 11/19/23 10:33 PL Tablet 11/19/23 10:38 PL Document 11/26/23 12:02 PL [id number] 11/26/23 12:04 PL 11/19/23 11/26/23 10:33 12:02 Wound Center Nurse 2 #1 L Med Ankle -Time 09:55 09:38 -Correct Patient Yes Yes -Correct Side, Site, Position Yes Yes -Correct Procedure Yes Yes -Procedure Performed Yes Yes -Type of Procedure Debridement Debridement -Clinical Debridement Subcutaneous Subcutaneous -Tissue Removed Subcutaneous Subcutaneous -Post Debridement (cm) - Length 1.3 1.0 -Post Debridement (cm) - Width 0.7 1.1 -Post Debridement (cm) - Depth 0.1 0.1 -Total Square (Post) (cm) 0.91 1.10 -Area of Debridement (cm) - Length 1.3 1.0 -Area of Debridement (cm) - Width 0.7 1.1 -Total Square (Area) (cm) 0.91 1.10 -Tunneling No No -Undermining/Tunneling No No -Circular Undermining No No -Wound/Ulcer Outcome Not Healed Not Healed -Ulcer Cleansing Rinsed/ Rinsed/ Irrigated with Irrigated with Saline Saline -Foul Odor after Cleansing No No -Bioengineered Tissue Yes Yes -Type of Bioengineered Tissue Epifix 18mm Epifix 18mm Disc Disc -Expiration Date 07/19/28 07/19/28 -Product Lot Number [id number] -Percent Used 100 100 -Bleeding Controlled with Pressure Pressure -Treatment Response Procedure Procedure Tolerated Well Tolerated Well -Debridement - Subq, 1st 20sq cm No No -Apply Skin Sub - 1st 25 sq cm - Legs 1 1 -Epifix 18mm Disc 3 3 Pain Scale: 0-10 Numeric Is Patient Pain Free? Yes Yes - Nurse 3 - General Ulcer D/C NN Start: 11/19/23 09:31 Freq: Status: Active Protocol: Activity Type Activity Date Activity User E-sign Co-sign Detail Recorded Client Recorded Date Recorded By Document 11/19/23 10:07 KW Desktop 11/19/23 10:07 KW Document 11/26/23 09:59 Laptop 11/26/23 09:59 11/19/23 11/26/23 10:07 09:59 Wound Care Center Nurse 3 #1 L Med Ankle -Primary Dressing Applied Optilok 6.5x10 -Primary Dressing Covered/Secured with Dry Gauze & Roll Gauze, Secured with Tape -Other Covering adb pad -Optilok 6.5x10 1 Left -Lotion applied to leg before Yes compression wrap -Multi-Layered Wrap Application Multi-Layer Multi-Layer Comp - Left ($) Comp - Left ($) Pain Scale: 0-10 Numeric Is Patient Pain Free? Yes Yes WC - Visit Discharge Discharge Condition Stable Stable Ambulatory Status Ambulatory Ambulatory Transportation Private Auto Private Auto Medication Reconcilliation completed & No Yes provided to patient/care provider Clinical Summary of Care Provided Yes Yes Assessment/Plan Assessment/Plan (1) Non-pressure chronic ulcer of left ankle with necrosis of muscle: CODE(S): L97.323 - Non-pressure chronic ulcer of left ankle with necrosis of muscle (2) Delayed wound healing: CODE(S): T14.8XXD - Other injury of unspecified body region, subsequent encounter (3) Venous insufficiency (chronic) (peripheral): CODE(S): I87.2 - Venous insufficiency (chronic) (peripheral) (4) Bacterial infection due to Pseudomonas: CODE(S): A49.8 - Other bacterial infections of unspecified site (5) Iron deficiency anemia: CODE(S): D50.9 - Iron deficiency anemia, unspecified (6) Obesity: CODE(S): E66.9 - Obesity, unspecified PLAN: Plan Patient seen and evaluated Left lower extremity: There is ulceration noted to the medial aspect of the leftlower extremity/ankle with healthy granular tissue with some serosanguineous drainage. Ulceration is noted to be overlying the neurovascular bundle. Negative Stemmer sign left foot. There is evidence of stasis dermatitis with hyperpigmentation/hemosiderin staining of the left lower extremity. Ulceration underwent debridement as noted in the clinical panel above. Ulceration measures 0.5 cm x 0.7 cm x 0.1 cm. No signs of infection. Skin maceration resolved with less drainage and wound is granulating in well. He hascompleted all 10 EpiFix graft applications. Abran applied to the wound base today with dry sterile dressing. 3M compression wrap applied to lower extremity. He was instructed to not get the dressing wet. Ulceration continues to demonstrate reduction in size versus previous visits. Overall tissue continues improvement with less drainage. Discussed if he soaks through dressing to call and return for new dressing/compression wrap application. He had another bout of increased drainage with some localized rubor secondary tomacerated tissue. Patient was not elevating legs and increasing work shifts over the weekend of greater than 12 hours at a time on his feet. Discussion washad with him that he must continue elevating legs and limit time on feet to aid in wound healing. Cultures were obtained 10/22/2023 and positive wound and urine culture with PsA. Also has PsA in urine. Wound does demonstrate reduction in size however due to previous drainage he was started on oral antibiotic. Rx Augmentin 875 mg twice daily x 14 days. Stop date 11/05/2023. He is following with infectious disease and will continue to receive outpatient IV antibiotic infusions of Zosyn for 6 weeks. I discussed continued elevation of the lower extremity at all times of rest to aid in edema control. I discussed once ulceration is healed he is to return to a prescription based compression stocking. Discussed updating stockings every 6 to 9 months to ensure proper uniform compression to treat his chronic venous insufficiency and to reduce recidivism of wound. LEAS performed 09/02/23 demonstrates right RONEN 1.31, normal. TBI and Doppler/PVR waveforms of right leg normal at rest; left RONEN 1.38, normal. TBI and Doppler/PVR waveforms of the left leg normal at rest. Venous studies performed 09/02/2023 demonstrates no evidence of bilateral lower extremity DVT. Bilateral great saphenous veins appear patent and compressible segmentally. Positive for reflux right popliteal vein, great saphenous vein in. Positive for reflux left popliteal vein, saphenofemoral junction. He did see Dr. Mckee in office and plan is for venogram to assess for central obstruction, he will continue to follow with vascular. Discussed importance of serial debridement to aid in wound healing. Discussed proper diet to increase protein intake to aid in wound healing. Recommended Vladimir supplementation. Discussed reducing foods with salty content to aid in edema control. Discussed avoidance of prolonged standing or legs dangling over side of chair/bed. Discussed with patient the depth of the ulcerative site and close proximity to the neurovascular bundle. Discussed with him signs and symptoms of infection. Discussed if he notices redness about the ulcerative site moving up the leg, purulent drainage from the wound site, foul increasing odor from the wound, or if he experiences fever greater than 101 degree, nausea, vomiting, chills/rigor,that these are signs of progressing infection and he should report to the ED to receive IV antibiotics. Patient and voiced understanding of this. The following work up and care recommendations were made: Dressing: Abran, dry sterile dressing, 3M compression wrap left lower extremity. Wash: Soap and water Tissue growth optimization: Abran Offload: To ensure no pressure to the medial ankle/hindfoot Vascular: DP and PT pulses palpable with adequate capillary fill to digits. Edema: Discussed elevation of lower extremities at times of rest. 3M compression wrap placed. Infection: No signs of infection. Rx: Augmentin 875mg BID x 14 days, stop date 11/05/23. He was instructed to take oral antibiotic to completion. Will continue following infectious disease for IV antibiotic outpatient at infusion center for treatment of UTI Pain: May take Tylenol extra strength for discomfort Host factors: Chronic venous insufficiency I answered all the patient's questions. To return to the wound healing center in 1 week or call sooner if the patient has any questions or concerns. 12/03/23947 <Electronically signed by Merrill Burns DPM> Cosigner Signature (if applicable): CC: ~ Signed [facility] Work Phone: 1([phone] 112-761602-08-2024 Progress note Author Merrill Burns [facility] November 26, 2023 9:54am Note Date/Time November 26, 2023 9 :28am [facility] [address] [place] [address] Progress Note - Wound Care 11/26/23926 MR#: [id number] Acct: [id number] Name: WELLINGTON GONZALEZ Rep #:[id number] : 1945 78 From: Merrill machado DPM PCP: Dr. Randa Joseph, DO Status:REG RCR Location: History of Present Illness Date of Service: 11/26/23 Chief Complaint: Left medial ankle wound History of Wound: 78-year-old male presents for follow-up on right lateral anklewound. Presents today due to new blister formation to anterior lateral ankle. typically a patient of Dr. Burns's but presented earlier due to concern for blister. No other complaints today. 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 He has left grafting product in place and is keeping compression dressing dry. He is continuing his infusions of IV Zosyn and will complete 6-week course per infectious disease. He states he recently met with Dr. Mckee regarding his chronic venous insufficiency. Denies constitutional symptoms. Denies further complaints. Objective Data Objective Data Vital Signs: Vital Signs Temp Pulse Resp BP O2 Del Method 94.5 F L 71 18 137/88 H Room Air 11/26/23 09:22 11/26/23 09:22 11/26/23 09:22 11/26/23 09:22 11/26/23 09:22 Oxygen Delivery Method Room Air Weight: 99.159 kg Body Mass Index (BMI) 28.8 Physical Exam Const alert, oriented x3 and no apparent distress General Appearance: cooperative HEENT normocephalic Eyes Eyes Narrative: Wears glasses General Eye: normal appearance of both eyes Neck General: normal visual inspection Lymph Lymphatic: no lymphadenopathy noted and no lymphedema noted Resp normal respiratory effort Cardio regular rate and regular rhythm Extremity normal capillary refill, no joint enlargement, no calf tenderness and no pedal edema Extremity Narrative: Vascular: DP and PT pulses weakly palpable. Capillary fill time to the digits is 5 seconds. Normal temperature gradient. There is absent hair growth to the digits noted. Dermatological: There is ulceration noted to the medial aspect of the left lowerextremity/ankle with healthy granular layer and serosanguineous drainage. Ulceration is noted to be overlying the neurovascular bundle. Negative Stemmer sign left foot. There is evidence of stasis dermatitis with hyperpigmentation/hemosiderin staining of the left lower extremity. Musculoskeletal: Muscle strength 5 of 5 age-appropriate. Skin no rashes or lesions noted, skin turgor normal and no jaundice Neuro moves all extremities Debridement Note Debridement Note Wound debrided: Left medial ankle Laterality: Left Wound Grade/Stage: Cisneros stage II Type of Debridement: Excisional debridement Anesthesia Used: 5% Lidocaine Gel Depth: Down to and including healthy tissue and in the subcutaneous layer Percentage of wound debrided: 100 Instrument Used: 5mm curette Tissue Removed: Fibrous, devitalized subcutaneous, biofilm, slough Severity: Fat Layer Exposed Amount of bleeding with debridement: Mild Bleeding Controlled with: Compression and gauze Patient tolerated procedure: Patient tolerated procedure well Post-Debridement Measurements and Additional Note: Post-Debridement Measurements/Treatment - Nurse 1 - General Ulcer Assessment Start: 11/19/23 09:31 Freq: Status: Active Protocol: [place] [employer] Activity Type Activity Date Activity User E-sign Co-sign Detail Recorded Client Recorded Date Recorded By Document 11/19/23 09:33 KW Desktop 11/19/23 09:44 KW Document 11/26/23 09:22 KW Desktop 11/26/23 09:25 KW 11/19/23 11/26/23 09:33 09:22 - Today's Visit Information Type of service Follow-up Visit Follow-up Visit (Physician/PROVIDER ENROLLMENT SPECIALIST (Physician/PROVIDER ENROLLMENT SPECIALIST ) ) Arrival Mode Ambulatory Ambulatory Patient Identification Verified (Name & Yes Yes ) Height and Weight Body Mass Index (BMI) 28.8 28.8 BMI Classification Overweight Overweight Vital Signs Temperature (97.8 F-99.1 F) 94.5 F L Temperature Source Temporal Pulse Rate (60-100) 67 71 Pulse Location Monitor Monitor Respiratory Rate (12-18) 18 18 Respiratory rate source Observation Observation Oxygen Delivery Method Room Air Room Air Blood Pressure (90/60-120/80) 164/97 H 137/88 H Blood Pressure Mean (mm Hg) 119 104 Source Monitor Monitor Position Semi-Fowlers Semi-Fowlers Blood Pressure Location Right Forearm Left Arm History Since Last Visit- (Skip if this is Patient's initial visit) Have you changed medications since your No No last visit? Any new allergies or adverse reactions No No Had a fall/change in ADL's that may No No increase risk of falls Signs or symptoms of abuse and/or No No neglect since last visit Have you been in the hospital since your No No last visit? Has dressing in place as prescribed Yes Yes Has compression in place as prescribed Yes Yes Has offloadiing in place as prescribed N/A N/A Experienced any changes in pain level or No No management Left Footwear Regular Shoe Regular Shoe Right Footwear Regular Shoe Regular Shoe Pain Scale: 0-10 Numeric Is Patient Pain Free? Yes Yes WC - Nurse 1 - General Ulcer Measurement Start: 11/19/23 09:31 Freq: Status: Active Protocol: Activity Type Activity Date Activity User E-sign Co-sign Detail Recorded Client Recorded Date Recorded By Document 11/19/23 09:33 KW Desktop 11/19/23 09:44 KW Document 11/26/23 09:22 KW Desktop 11/26/23 09:25 KW 11/19/23 11/26/23 09:33 09:22 Wound Center Nurse 1 #1 L Med Ankle -Current Size (cm) - Length 1.5 0.1 -Current Size (cm) - Width 1.5 0.1 -Current Size (cm) - Depth 0.1 0.1 -Total Square Cm 2.25 0.01 -Date of Last Picture (Recall this 11/26/23 field) -Photo Taken Yes -Exudate Amt Medium -Exudate Type Serosanguineous -Wound Margin Distinct, Outline Attached -Texture (Megan-wound Skin Appearance) Assessed -Moisture (Megan-wound Skin Appearance) Assessed -Color (Megan-wound Skin Appearance) Assessed -Temperature (Megan-wound Skin No Abnormality Appearance) (Pt Warm) -Ulcer Cleansing Soap and Water Soap and Water -Anesthetic Used 5% Lidocaine 5% Lidocaine Gel Gel -Wound Comment(s) SCABBED Right Calf (cm) 36.5 Right Ankle (cm) 24.5 Left Calf (cm) 36.4 Left Ankle (cm) 21.5 WC - Nurse 2 - General Ulcer CM Notes Start: 11/19/23 09:31 Freq: Status: Active Protocol: Activity Type Activity Date Activity User E-sign Co-sign Detail Recorded Client Recorded Date Recorded By Document 11/19/23 10:33 PL Tablet 11/19/23 10:38 PL 11/19/23 10:33 Wound Center Nurse 2 #1 L Med Ankle -Time 09:55 -Correct Patient Yes -Correct Side, Site, Position Yes -Correct Procedure Yes -Procedure Performed Yes -Type of Procedure Debridement -Clinical Debridement Subcutaneous -Tissue Removed Subcutaneous -Post Debridement (cm) - Length 1.3 -Post Debridement (cm) - Width 0.7 -Post Debridement (cm) - Depth 0.1 -Total Square (Post) (cm) 0.91 -Area of Debridement (cm) - Length 1.3 -Area of Debridement (cm) - Width 0.7 -Total Square (Area) (cm) 0.91 -Tunneling No -Undermining/Tunneling No -Circular Undermining No -Wound/Ulcer Outcome Not Healed -Ulcer Cleansing Rinsed/ Irrigated with Saline -Foul Odor after Cleansing No -Bioengineered Tissue Yes -Type of Bioengineered Tissue Epifix 18mm Disc -Expiration Date 07/19/28 -Product Lot Number [id number] -Percent Used 100 -Bleeding Controlled with Pressure -Treatment Response Procedure Tolerated Well -Debridement - Subq, 1st 20sq cm No -Apply Skin Sub - 1st 25 sq cm - Legs 1 -Epifix 18mm Disc 3 Pain Scale: 0-10 Numeric Is Patient Pain Free? Yes - Nurse 3 - General Ulcer D/C NN Start: 11/19/23 09:31 Freq: Status: Active Protocol: Activity Type Activity Date Activity User E-sign Co-sign Detail Recorded Client Recorded Date Recorded By Document 11/19/23 10:07 KW Desktop 11/19/23 10:07 KW 11/19/23 10:07 Wound Care Center Nurse 3 #1 L Med Ankle -Primary Dressing Applied Optilok 6.5x10 -Primary Dressing Covered/Secured with Dry Gauze & Roll Gauze, Secured with Tape -Optilok 6.5x10 1 Left -Multi-Layered Wrap Application Multi-Layer Comp - Left ($) Pain Scale: 0-10 Numeric Is Patient Pain Free? Yes - Visit Discharge Discharge Condition Stable Ambulatory Status Ambulatory Transportation Private Auto Medication Reconcilliation completed & No provided to patient/care provider Clinical Summary of Care Provided Yes Assessment/Plan Assessment/Plan (1) Non-pressure chronic ulcer of left ankle with necrosis of muscle: CODE(S): L97.323 - Non-pressure chronic ulcer of left ankle with necrosis of muscle (2) Delayed wound healing: CODE(S): T14.8XXD - Other injury of unspecified body region, subsequent encounter (3) Venous insufficiency (chronic) (peripheral): CODE(S): I87.2 - Venous insufficiency (chronic) (peripheral) (4) Bacterial infection due to Pseudomonas: CODE(S): A49.8 - Other bacterial infections of unspecified site (5) Iron deficiency anemia: CODE(S): D50.9 - Iron deficiency anemia, unspecified (6) Obesity: CODE(S): E66.9 - Obesity, unspecified PLAN: Plan Patient seen and evaluated Left lower extremity: There is ulceration noted to the medial aspect of the leftlower extremity/ankle with healthy granular tissue with some serosanguineous drainage. Ulceration is noted to be overlying the neurovascular bundle. Negative Stemmer sign left foot. There is evidence of stasis dermatitis with hyperpigmentation/hemosiderin staining of the left lower extremity. Ulceration underwent debridement as noted in the clinical panel above. Ulceration measures 1.0 cm x 1.1 cm x 0.1 cm. No signs of infection. Skin maceration resolved with less drainage and wound is granulating in well. EpiFixgraft #10 applied to wound bed today. Site dressed with Adaptic touch, Steri-Strips, and dry sterile dressing. 3M compression wrap applied to lower extremity. He was instructed to not get the dressing wet. Ulceration continues to demonstrate reduction in size versus previous visits. Overall tissue continues improvement with less drainage. Discussed if he soaks through dressing to call and return for new dressing/compression wrap application. He had another bout of increased drainage with some localized rubor secondary tomacerated tissue. Patient was not elevating legs and increasing work shifts over the weekend of greater than 12 hours at a time on his feet. Discussion washad with him that he must continue elevating legs and limit time on feet to aid in wound healing. Cultures were obtained 10/22/2023 and positive wound and urine culture with PsA. Also has PsA in urine. Wound does demonstrate reduction in size however due to previous drainage he was started on oral antibiotic. Rx Augmentin 875 mg twice daily x 14 days. Stop date 11/05/2023. He is following with infectious disease and will continue to receive outpatient IV antibiotic infusions of Zosyn for 6 weeks. I discussed continued elevation of the lower extremity at all times of rest to aid in edema control. I discussed once ulceration is healed he is to return to a prescription based compression stocking. Discussed updating stockings every 6 to 9 months to ensure proper uniform compression to treat his chronic venous insufficiency and to reduce recidivism of wound. LEAS performed 09/02/23 demonstrates right RONEN 1.31, normal. TBI and Doppler/PVR waveforms of right leg normal at rest; left RONEN 1.38, normal. TBI and Doppler/PVR waveforms of the left leg normal at rest. Venous studies performed 09/02/2023 demonstrates no evidence of bilateral lower extremity DVT. Bilateral great saphenous veins appear patent and compressible segmentally. Positive for reflux right popliteal vein, great saphenous vein in. Positive for reflux left popliteal vein, saphenofemoral junction. He did see Dr. Mckee in office last week and plan is for venogram to assess forcentral obstruction, he will continue to follow with vascular. Discussed importance of serial debridement to aid in wound healing. He was approved for application of EpiFix advanced wound product, we will continue applications. Discussed proper diet to increase protein intake to aid in wound healing. Recommended Vladimir supplementation. Discussed reducing foods with salty content to aid in edema control. Discussed avoidance of prolonged standing or legs dangling over side of chair/bed. Discussed with patient the depth of the ulcerative site and close proximity to the neurovascular bundle. Discussed with him signs and symptoms of infection. Discussed if he notices redness about the ulcerative site moving up the leg, purulent drainage from the wound site, foul increasing odor from the wound, or if he experiences fever greater than 101 degree, nausea, vomiting, chills/rigor,that these are signs of progressing infection and he should report to the ED to receive IV antibiotics. Patient and voiced understanding of this. The following work up and care recommendations were made: Dressing: EpiFix, Adaptic touch, Steri-Strips, Suprasorb, 3M compression wrap left lower extremity. Wash: Do not get wet Tissue growth optimization: EpiFix Offload: To ensure no pressure to the medial ankle/hindfoot Vascular: DP and PT pulses palpable with adequate capillary fill to digits. Edema: Discussed elevation of lower extremities at times of rest. 3M compression wrap placed. Infection: No signs of infection. Rx: Augmentin 875mg BID x 14 days, stop date 11/05/23. He was instructed to take oral antibiotic to completion. Will continue following infectious disease for IV antibiotic outpatient at [facility] for treatment of UTI Pain: May take Tylenol extra strength for discomfort Host factors: Chronic venous insufficiency I answered all the patient's questions. To return to the wound healing center in 1 week or call sooner if the patient has any questions or concerns. 11/26/23 0954 <Electronically signed by Merrill Burns DPM> Cosigner Signature (if applicable): CC: ~ Signed [facility] Work Phone: 1(122) 202-534802-01-2024 Progress note Author Merrill Bursn [facility] November 19, 2023 11:18am Note Date/Time November 19, 2023 1 0:39am [facility] [address] [place] [address] Progress Note - Wound Care 11/19/23 1034 MR#: [id number] Acct: [id number] Name: WELLINGTON GONZALEZ Rep #:[id number] : 1945 78 From: Merrill machado DPM PCP: Dr. Randa Joseph, DO Status:REG RCR Location: History of Present Illness Date of Service: 11/19/23 Chief Complaint: Left medial ankle wound History of Wound: 78-year-old male presents for follow-up on right lateral anklewound. Presents today due to new blister formation to anterior lateral ankle. typically a patient of Dr. Burns's but presented earlier due to concern for blister. No other complaints today. 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 He has left grafting product in place and is keeping compression dressing dry. He is continuing his infusions of IV Zosyn and will complete 6-week course per infectious disease. He states that he was concerned over a blister on the anterior ankle and did present to the wound care center earlier to be seen by Dr. Palma. Denies constitutional symptoms. Denies further complaints. Objective Data Objective Data Vital Signs: Vital Signs Temp Pulse Resp BP O2 Del Method 97 F L 67 18 164/97 H Room Air 11/19/23 00:29 11/19/23 09:33 11/19/23 09:33 11/19/23 09:33 11/19/23 09:33 Oxygen Delivery Method Room Air Weight: 99.159 kg Body Mass Index (BMI) 28.8 Physical Exam Const alert, oriented x3 and no apparent distress General Appearance: cooperative HEENT normocephalic Eyes Eyes Narrative: Wears glasses General Eye: normal appearance of both eyes Neck General: normal visual inspection Lymph Lymphatic: no lymphadenopathy noted and no lymphedema noted Resp normal respiratory effort Cardio regular rate and regular rhythm Extremity normal capillary refill, no joint enlargement, no calf tenderness and no pedal edema Extremity Narrative: Vascular: DP and PT pulses weakly palpable. Capillary fill time to the digits is 5 seconds. Normal temperature gradient. There is absent hair growth to the digits noted. Dermatological: There is ulceration noted to the medial aspect of the left lowerextremity/ankle with healthy granular layer and serosanguineous drainage. Ulceration is noted to be overlying the neurovascular bundle. Negative Stemmer sign left foot. There is evidence of stasis dermatitis with hyperpigmentation/hemosiderin staining of the left lower extremity. Musculoskeletal: Muscle strength 5 of 5 age-appropriate. Skin no rashes or lesions noted, skin turgor normal and no jaundice Neuro moves all extremities Debridement Note Debridement Note Wound debrided: Left medial ankle Laterality: Left Wound Grade/Stage: Cisneros stage II Type of Debridement: Excisional debridement Anesthesia Used: 5% Lidocaine Gel Depth: Down to and including healthy tissue and in the subcutaneous layer Percentage of wound debrided: 100 Instrument Used: 5mm curette Tissue Removed: Fibrous, devitalized subcutaneous, biofilm, slough Severity: Fat Layer Exposed Amount of bleeding with debridement: Mild Bleeding Controlled with: Compression and gauze Patient tolerated procedure: Patient tolerated procedure well Post-Debridement Measurements and Additional Note: Post-Debridement Measurements/Treatment - Nurse 1 - General Ulcer Assessment Start: 11/19/23 09:31 Freq: Status: Active Protocol: WC.LOWEXT Activity Type Activity Date Activity User E-sign Co-sign Detail Recorded Client Recorded Date Recorded By Document 11/19/23 09:33 KW Desktop 11/19/23 09:44 KW 11/19/23 09:33 - Today's Visit Information Type of service Follow-up Visit (Physician/PROVIDER ENROLLMENT SPECIALIST ) Arrival Mode Ambulatory Patient Identification Verified (Name & Yes ) Height and Weight Body Mass Index (BMI) 28.8 BMI Classification Overweight Vital Signs Pulse Rate (60-100) 67 Pulse Location Monitor Respiratory Rate (12-18) 18 Respiratory rate source Observation Oxygen Delivery Method Room Air Blood Pressure (90/60-120/80) 164/97 H Blood Pressure Mean (mm Hg) 119 Source Monitor Position Semi-Fowlers Blood Pressure Location Right Forearm History Since Last Visit- (Skip if this is Patient's initial visit) Have you changed medications since your No last visit? Any new allergies or adverse reactions No Had a fall/change in ADL's that may No increase risk of falls Signs or symptoms of abuse and/or No neglect since last visit Have you been in the hospital since your No last visit? Has dressing in place as prescribed Yes Has compression in place as prescribed Yes Has offloadiing in place as prescribed N/A Experienced any changes in pain level or No management Left Footwear Regular Shoe Right Footwear Regular Shoe Pain Scale: 0-10 Numeric Is Patient Pain Free? Yes - Nurse 1 - General Ulcer Measurement Start: 11/19/23 09:31 Freq: Status: Active Protocol: Activity Type Activity Date Activity User E-sign Co-sign Detail Recorded Client Recorded Date Recorded By Document 11/19/23 09:33 [employer] 11/19/23 09:44 KW 11/19/23 09:33 Wound Center Nurse 1 #1 L Med Ankle -Current Size (cm) - Length 1.5 -Current Size (cm) - Width 1.5 -Current Size (cm) - Depth 0.1 -Total Square Cm 2.25 -Exudate Amt Medium -Exudate Type Serosanguineous -Wound Margin Distinct, Outline Attached -Ulcer Cleansing Soap and Water -Anesthetic Used 5% Lidocaine Gel Right Calf (cm) 36.5 Right Ankle (cm) 24.5 - Nurse 3 - General Ulcer D/C NN Start: 11/19/23 09:31 Freq: Status: Active Protocol: Activity Type Activity Date Activity User E-sign Co-sign Detail Recorded Client Recorded Date Recorded By Document 11/19/23 10:07 [employer] 11/19/23 10:07 KW 11/19/23 10:07 Wound Care Center Nurse 3 #1 L Med Ankle -Primary Dressing Applied Optilok 6.5x10 -Primary Dressing Covered/Secured with Dry Gauze & Roll Gauze, Secured with Tape -Optilok 6.5x10 1 Left -Multi-Layered Wrap Application Multi-Layer Comp - Left ($) Pain Scale: 0-10 Numeric Is Patient Pain Free? Yes WC - Visit Discharge Discharge Condition Stable Ambulatory Status Ambulatory Transportation Private Auto Medication Reconcilliation completed & No provided to patient/care provider Clinical Summary of Care Provided Yes Assessment/Plan Assessment/Plan (1) Non-pressure chronic ulcer of left ankle with necrosis of muscle: CODE(S): L97.323 - Non-pressure chronic ulcer of left ankle with necrosis of muscle (2) Delayed wound healing: CODE(S): T14.8XXD - Other injury of unspecified body region, subsequent encounter (3) Venous insufficiency (chronic) (peripheral): CODE(S): I87.2 - Venous insufficiency (chronic) (peripheral) (4) Bacterial infection due to Pseudomonas: CODE(S): A49.8 - Other bacterial infections of unspecified site (5) Iron deficiency anemia: CODE(S): D50.9 - Iron deficiency anemia, unspecified (6) Obesity: CODE(S): E66.9 - Obesity, unspecified PLAN: Plan Patient seen and evaluated Left lower extremity: There is ulceration noted to the medial aspect of the leftlower extremity/ankle with healthy granular tissue with some serosanguineous drainage. Ulceration is noted to be overlying the neurovascular bundle. Negative Stemmer sign left foot. There is evidence of stasis dermatitis with hyperpigmentation/hemosiderin staining of the left lower extremity. Ulceration underwent debridement as noted in the clinical panel above. Ulceration measures 1.3 cm x 1.5 cm x 0.1 cm. No signs of infection. Skin maceration resolved with less drainage and wound is granulating in well. EpiFixgraft #9 applied to wound bed today. Site dressed with Adaptic touch, Steri-Strips, and dry sterile dressing. 3M compression wrap applied to lower extremity. He was instructed to not get the dressing wet. Ulceration continues to demonstrate reduction in size versus previous visits. Overall tissue continues improvement with less drainage. New blister anterior medial ankle is superficial. No signs of infection. Discussed if he soaks through dressing to call and return for new dressing/compression wrap application. He had another bout of increased drainage with some localized rubor secondary tomacerated tissue. Patient was not elevating legs and increasing work shifts over the weekend of greater than 12 hours at a time on his feet. Discussion washad with him that he must continue elevating legs and limit time on feet to aid in wound healing. Cultures were obtained 10/22/2023 and positive wound and urine culture with PsA. Also has PsA in urine. Wound does demonstrate reduction in size however due to previous drainage he was started on oral antibiotic. Rx Augmentin 875 mg twice daily x 14 days. Stop date 11/05/2023. He is following with infectious disease and will continue to receive outpatient IV antibiotic infusions of Zosyn for 6 weeks. I discussed continued elevation of the lower extremity at all times of rest to aid in edema control. I discussed once ulceration is healed he is to return to a prescription based compression stocking. Discussed updating stockings every 6 to 9 months to ensure proper uniform compression to treat his chronic venous insufficiency and to reduce recidivism of wound. LEAS performed 09/02/23 demonstrates right RONEN 1.31, normal. TBI and Doppler/PVR waveforms of right leg normal at rest; left RONEN 1.38, normal. TBI and Doppler/PVR waveforms of the left leg normal at rest. Venous studies performed 09/02/2023 demonstrates no evidence of bilateral lower extremity DVT. Bilateral great saphenous veins appear patent and compressible segmentally. Positive for reflux right popliteal vein, great saphenous vein in. Positive for reflux left popliteal vein, saphenofemoral junction. Discussed importance of serial debridement to aid in wound healing. He was approved for application of EpiFix advanced wound product, we will continue applications. Discussed proper diet to increase protein intake to aid in wound healing. Recommended Vladimir supplementation. Discussed reducing foods with salty content to aid in edema control. Discussed avoidance of prolonged standing or legs dangling over side of chair/bed. Discussed with patient the depth of the ulcerative site and close proximity to the neurovascular bundle. Discussed with him signs and symptoms of infection. Discussed if he notices redness about the ulcerative site moving up the leg, purulent drainage from the wound site, foul increasing odor from the wound, or if he experiences fever greater than 101 degree, nausea, vomiting, chills/rigor,that these are signs of progressing infection and he should report to the ED to receive IV antibiotics. Patient and voiced understanding of this. The following work up and care recommendations were made: Dressing: EpiFix, Adaptic touch, Steri-Strips, Suprasorb, 3M compression wrap left lower extremity. Wash: Do not get wet Tissue growth optimization: EpiFix Offload: To ensure no pressure to the medial ankle/hindfoot Vascular: DP and PT pulses palpable with adequate capillary fill to digits. Edema: Discussed elevation of lower extremities at times of rest. 3M compression wrap placed. Infection: No signs of infection. Rx: Augmentin 875mg BID x 14 days, stop date 11/05/23. He was instructed to take oral antibiotic to completion. Will continue following infectious disease for IV antibiotic outpatient at infusion center for treatment of UTI Pain: May take Tylenol extra strength for discomfort Host factors: Chronic venous insufficiency I answered all the patient's questions. To return to the wound healing center in 1 week or call sooner if the patient has any questions or concerns. 11/19/23 1118 <Electronically signed by Merrill Burns DPM> Cosigner Signature (if applicable): CC: ~ Signed [facility] Work Phone: 1(457) 540-537901-30-2024 Progress note Author Maxx Palma [facility] November 17, 2023 10:08am Note Date/Time November 17, 2023 1 0:08am [facility] [address] [place] [address] Progress Note - Wound Care 11/17/23 1004 MR#: [id number] Acct: [id number] Name: WELLINGTON GONZALEZ Rep #:[id number] : 1945 78 From: Maxx Palma DPM PCP: Dr. Randa Joseph, DO Status:REG RCR Location: History of Present Illness Date of Service: 11/17/23 Chief Complaint: Left medial ankle wound History of Wound: 78-year-old male presents for follow-up on right lateral anklewound. Presents today due to new blister formation to anterior lateral ankle. typically a patient of Dr. Burns's but presented earlier due to concern for blister. No other complaints today. Objective Data Objective Data Vital Signs: Vital Signs Temp Pulse Resp BP O2 Del Method 97 F L 74 20 H 146/94 H Room Air 11/17/23 09:19 11/17/23 09:19 11/17/23 09:19 11/17/23 09:19 11/12/23 09:08 Oxygen Delivery Method Room Air Weight: 99.159 kg Body Mass Index (BMI) 28.8 Lab / Micro Data Micro: Microbiology 10/22/23 11:20 Wound - Ankle Gram Stain - Final 10/22/23 11:20 Wound - Ankle Wound Culture - Final Pseudomonas aeruginosa 10/22/23 11:20 Wound - Ankle Anaerobic Culture - Final No anaerobic bacteria isolated. Physical Exam Narrative Venous insufficiency noted as patient has varicosities bilaterally with pitting edema. Patient has intact pedal pulses bilaterally. There is intact overlying Adaptic Steri-Strips and EpiFix graft to lateral ankle. And to anteromedial left ankle there is noted to be a tense bullous measuring approximately 1.5 x 1.5 cm. No obvious acute signs of infection. Upon lysing there is noted to be clear serous drainage. No signs DVT bilaterally. Debridement Note Debridement Note Post-Debridement Measurements and Additional Note: Post-Debridement Measurements/Treatment - Nurse 1 - General Ulcer Assessment Start: 10/20/23 07:58 Freq: Status: Active Protocol: ANAYA Activity Type Activity Date Activity User E-sign Co-sign Detail Recorded Client Recorded Date Recorded By Document 10/20/23 07:58 [facility] Desktop 10/20/23 08:00 [facility] Document 10/22/23 10:55 Laptop 10/22/23 11:00 Document 10/26/23 08:20 KW Desktop 10/26/23 08:28 KW Document 10/29/23 09:40 [id number] 10/29/23 09:41 Document 11/05/23 09:06 KW Desktop 11/05/23 09:12 KW Document 11/12/23 09:08 KW Desktop 11/12/23 09:17 KW Document 11/17/23 09:19 DL Desktop 11/17/23 09:26 DL 10/20/23 10/22/23 10/26/23 07:58 10:55 08:20 - Today's Visit Information Type of service Nurse-only Follow-up Visit Nurse-only Visit (Physician/PROVIDER ENROLLMENT SPECIALIST Visit ) Arrival Mode Ambulatory Ambulatory Ambulatory Transfer Assistance None Accompanied by Patient Identification Verified (Name & Yes Yes Yes ) Patient Requires Transmission-Based No Precautions Height and Weight Body Mass Index (BMI) 28.8 28.8 28.8 BMI Classification Overweight Overweight Overweight Vital Signs Temperature (97.8 F-99.1 F) 98.1 F 96.0 F L 96.8 F L Temperature Source Temporal Temporal Temporal Pulse Rate (60-100) 72 101 H 63 Pulse Location Monitor Monitor Monitor Respiratory Rate (12-18) 18 18 20 H Respiratory rate source Observation Observation Observation Oxygen Delivery Method Room Air Room Air Blood Pressure (90/60-120/80) 164/59 H 110/81 H 135/55 H Blood Pressure Mean (mm Hg) 94 90 81 Source Monitor Monitor Monitor Position Semi-Fowlers Semi-Fowlers Blood Pressure Location Left Arm Left Arm History Since Last Visit- (Skip if this is Patient's initial visit) Have you changed medications since your No No last visit? Any new allergies or adverse reactions No No No Had a fall/change in ADL's that may No No No increase risk of falls Signs or symptoms of abuse and/or No No No neglect since last visit Have you been in the hospital since your No No No last visit? Has dressing in place as prescribed Yes Yes Yes Has compression in place as prescribed Yes Yes Yes Has offloadiing in place as prescribed No No N/A Experienced any changes in pain level or No No No management Left Footwear Regular Shoe Regular Shoe Right Footwear Regular Shoe Regular Shoe Pain Scale: 0-10 Numeric Is Patient Pain Free? Yes Yes Yes 10/29/23 11/05/23 11/12/23 09:40 09:06 09:08 WC - Today's Visit Information Type of service Follow-up Visit Follow-up Visit Follow-up Visit (Physician/PROVIDER ENROLLMENT SPECIALIST (Physician/PROVIDER ENROLLMENT SPECIALIST (Physician/PROVIDER ENROLLMENT SPECIALIST ) ) ) Arrival Mode Ambulatory Ambulatory Ambulatory Transfer Assistance Accompanied by Patient Identification Verified (Name & Yes Yes Yes ) Patient Requires Transmission-Based No Precautions Height and Weight Body Mass Index (BMI) 28.8 28.8 28.8 BMI Classification Overweight Overweight Overweight Vital Signs Temperature (97.8 F-99.1 F) 96.1 F L 95.5 F L Temperature Source Temporal Temporal Pulse Rate (60-100) 72 70 68 Pulse Location Monitor Monitor Monitor Respiratory Rate (12-18) 16 18 18 Respiratory rate source Observation Observation Observation Oxygen Delivery Method Room Air Room Air Blood Pressure (90/60-120/80) 130/90 H 150/78 H 128/76 H Blood Pressure Mean (mm Hg) 103 102 93 Source Monitor Monitor Monitor Position Semi-Fowlers Semi-Fowlers Sitting Blood Pressure Location Left Arm Left Arm Right Arm History Since Last Visit- (Skip if this is Patient's initial visit) Have you changed medications since your No No No last visit? Any new allergies or adverse reactions No No No Had a fall/change in ADL's that may No No No increase risk of falls Signs or symptoms of abuse and/or No No No neglect since last visit Have you been in the hospital since your No No No last visit? Has dressing in place as prescribed Yes Yes Yes Has compression in place as prescribed Yes Yes Yes Has offloadiing in place as prescribed N/A N/A N/A Experienced any changes in pain level or No No No management Left Footwear Regular Shoe Regular Shoe Regular Shoe Right Footwear Regular Shoe Regular Shoe Regular Shoe Pain Scale: 0-10 Numeric Is Patient Pain Free? Yes Yes Yes 11/17/23 09:19 WC - Today's Visit Information Type of service Follow-up Visit (Physician/PROVIDER ENROLLMENT SPECIALIST ) Arrival Mode Ambulatory Transfer Assistance None Accompanied by Patient Identification Verified (Name & Yes ) Patient Requires Transmission-Based No Precautions Height and Weight Body Mass Index (BMI) 28.8 BMI Classification Overweight Vital Signs Temperature (97.8 F-99.1 F) 97 F L Temperature Source Temporal Pulse Rate (60-100) 74 Pulse Location Monitor Respiratory Rate (12-18) 20 H Respiratory rate source Observation Oxygen Delivery Method Blood Pressure (90/60-120/80) 146/94 H Blood Pressure Mean (mm Hg) 111 Source Monitor Position Blood Pressure Location History Since Last Visit- (Skip if this is Patient's initial visit) Have you changed medications since your No last visit? Any new allergies or adverse reactions No Had a fall/change in ADL's that may No increase risk of falls Signs or symptoms of abuse and/or No neglect since last visit Have you been in the hospital since your No last visit? Has dressing in place as prescribed Yes Has compression in place as prescribed Yes Has offloadiing in place as prescribed Yes Experienced any changes in pain level or No management Left Footwear Right Footwear Pain Scale: 0-10 Numeric Is Patient Pain Free? Yes WC - Nurse 1 - General Ulcer Measurement Start: 10/20/23 07:58 Freq: Status: Active Protocol: Activity Type Activity Date Activity User E-sign Co-sign Detail Recorded Client Recorded Date Recorded By Document 10/20/23 08:00 [facility] Desktop 10/20/23 08:01 [facility] Document 10/22/23 10:55 Laptop 10/22/23 11:00 JF Document 10/26/23 08:20 KW Desktop 10/26/23 08:28 KW Document 10/29/23 09:40 JF [id number] 10/29/23 09:41 JF Document 11/05/23 09:06 KW Desktop 11/05/23 09:12 KW Document 11/12/23 09:08 KW Desktop 11/12/23 09:17 KW Document 11/17/23 09:19 DL Desktop 11/17/23 09:26 DL 10/20/23 10/22/23 10/26/23 08:00 10:55 08:20 Wound Center Nurse 1 #1 L Med Ankle -Combined with other wound -Current Size (cm) - Length 2.3 -Current Size (cm) - Width 2.8 -Current Size (cm) - Depth 0.1 -Total Square Cm 6.44 -Date of Last Picture (Recall this field) -Photo Taken -Epithelialization -Tunneling -Undermining/Tunneling -Circular Undermining -Exudate Amt Medium Small -Exudate Type Serosanguineous Serosanguineous -Wound Margin Distinct, Outline Attached -Granulation Amt Large (67-100%) -Granulation Quality Red -Slough/Fibrin -Necrosis Amt -Necrotic Tissue Type -Structure Exposed -Texture (Megan-wound Skin Appearance) Assessed -Moisture (Megan-wound Skin Appearance) Assessed Dry/Scaly -Color (Megan-wound Skin Appearance) Assessed Hemosiderin Staining -Temperature (Megan-wound Skin No Abnormality No Abnormality Appearance) (Pt Warm) (Pt Warm) -Tenderness on Palpation (Megan-wound No Skin Appearance) -Ulcer Cleansing Soap and Water Soap and Water -Foul Odor after Cleansing No -Anesthetic Used 5% Lidocaine Gel -Wound Comment(s) Epimesh intact. Pt remains on ATB as ordered. Voices no complaints. Lower Limb Edema Present Right Calf (cm) 38.2 Right Ankle (cm) 23.6 Left Calf (cm) 32.7 39 Left Ankle (cm) 22.6 21.5 10/29/23 11/05/23 11/12/23 09:40 09:06 09:08 Wound Center Nurse 1 #1 L Med Ankle -Combined with other wound No -Current Size (cm) - Length 2.0 1.5 1.5 -Current Size (cm) - Width 2.6 2.0 1.9 -Current Size (cm) - Depth 0.1 0.1 0.1 -Total Square Cm 5.20 3.00 2.85 -Date of Last Picture (Recall this 11/05/23 field) -Photo Taken No Yes -Epithelialization Small 1-33% -Tunneling No -Undermining/Tunneling No -Circular Undermining No -Exudate Amt Large Small Medium -Exudate Type Yellow/Green Serosanguineous Serosanguineous -Wound Margin Flat & Intact Distinct, Distinct, Outline Outline Attached Attached -Granulation Amt Large (67-100%) Medium (34-66%) Large (67-100%) -Granulation Quality Red Red Red -Slough/Fibrin Yes -Necrosis Amt Small (1-33%) Small (1-33%) Small (1-33%) -Necrotic Tissue Type Adherent Slough Adherent Slough Adherent Slough -Structure Exposed N/A -Texture (Megan-wound Skin Appearance) Assessed, Assessed Assessed Excoriation, Localized Edema -Moisture (Megan-wound Skin Appearance) Assessed,Dry/ Assessed Assessed,Dry/ Scaly Scaly -Color (Megan-wound Skin Appearance) Assessed Assessed Assessed -Temperature (Megan-wound Skin No Abnormality No Abnormality No Abnormality Appearance) (Pt Warm) (Pt Warm) (Pt Warm) -Tenderness on Palpation (Megan-wound No Skin Appearance) -Ulcer Cleansing Wound Cleanser Soap and Water Soap and Water -Foul Odor after Cleansing No No No -Anesthetic Used 5% Lidocaine 5% Lidocaine 5% Lidocaine Gel Gel Gel -Wound Comment(s) Lower Limb Edema Present Yes Right Calf (cm) Right Ankle (cm) Left Calf (cm) 36.8 40.5 36.5 Left Ankle (cm) 23.0 25 25 11/17/23 09:19 Wound Center Nurse 1 #1 L Med Ankle -Combined with other wound -Current Size (cm) - Length 0.1 -Current Size (cm) - Width 0.1 -Current Size (cm) - Depth 0.1 -Total Square Cm 0.01 -Date of Last Picture (Recall this field) -Photo Taken -Epithelialization -Tunneling -Undermining/Tunneling -Circular Undermining -Exudate Amt Small -Exudate Type Serosanguineous -Wound Margin Distinct, Outline Attached -Granulation Amt -Granulation Quality -Slough/Fibrin -Necrosis Amt -Necrotic Tissue Type -Structure Exposed N/A -Texture (Megan-wound Skin Appearance) Scarring -Moisture (Megan-wound Skin Appearance) Dry/Scaly -Color (Megan-wound Skin Appearance) No Abnormality -Temperature (Megan-wound Skin No Abnormality Appearance) (Pt Warm) -Tenderness on Palpation (Megan-wound No Skin Appearance) -Ulcer Cleansing Soap and Water -Foul Odor after Cleansing No -Anesthetic Used -Wound Comment(s) Epi fix intact. not removed. Lower Limb Edema Present Right Calf (cm) Right Ankle (cm) Left Calf (cm) 39 Left Ankle (cm) 24.5 WC - Nurse 2 - General Ulcer CM Notes Start: 10/20/23 07:58 Freq: Status: Active Protocol: Activity Type Activity Date Activity User E-sign Co-sign Detail Recorded Client Recorded Date Recorded By Document 10/22/23 12:24 PL [id number] 10/22/23 12:26 PL Document 10/29/23 12:03 PL [id number] 10/29/23 12:04 PL Document 11/05/23 10:22 PL Tablet 11/05/23 10:25 PL Document 11/12/23 09:34 PL Tablet 11/12/23 09:36 PL Document 11/17/23 09:37 JF Laptop 11/17/23 09:38 JF 10/22/23 10/29/23 11/05/23 12:24 12:03 10:22 Wound Center Nurse 2 #1 L Med Ankle -Time 11:13 09:37 09:30 -Correct Patient Yes Yes Yes -Correct Side, Site, Position Yes Yes Yes -Correct Procedure Yes Yes Yes -Procedure Performed Yes Yes Yes -Type of Procedure Debridement Debridement Debridement -Clinical Debridement Subcutaneous Subcutaneous Subcutaneous -Tissue Removed Subcutaneous Subcutaneous Subcutaneous -Post Debridement (cm) - Length 2.5 2.0 1.6 -Post Debridement (cm) - Width 2.5 2.3 2.1 -Post Debridement (cm) - Depth 0.1 0.2 0.1 -Total Square (Post) (cm) 6.25 4.60 3.36 -Area of Debridement (cm) - Length 2.5 2.0 1.6 -Area of Debridement (cm) - Width 2.5 2.3 2.1 -Total Square (Area) (cm) 6.25 4.60 3.36 -Tunneling No No No -Undermining/Tunneling No No No -Circular Undermining No No No -Wound/Ulcer Outcome Not Healed Not Healed Not Healed -Ulcer Cleansing Rinsed/ Rinsed/ Rinsed/ Irrigated with Irrigated with Irrigated with Saline Saline Saline -Foul Odor after Cleansing No No No -Bioengineered Tissue Yes No Yes -Type of Bioengineered Tissue -Type of Bioengineered Tissue Epifix Mesh Epifix -Expiration Date 06/19/28 08/19/28 -Product Lot Number [id number] -Percent Used 100 100 -Bleeding Controlled with Pressure Pressure Pressure -Treatment Response Procedure Procedure Procedure Tolerated Well Tolerated Well Tolerated Well -Debridement - Subq, 1st 20sq cm No Yes No -Apply Skin Sub - 1st 25 sq cm - Legs 1 1 -Epifix (per sq cm) 4 -Epifix 18mm Disc -Epifix Mesh (per sq cm) 11 Pain Scale: 0-10 Numeric Is Patient Pain Free? Yes Yes Yes 11/12/23 11/17/23 09:34 09:37 Wound Center Nurse 2 #1 L Med Ankle -Time 09:20 -Correct Patient Yes No -Correct Side, Site, Position Yes No -Correct Procedure Yes No -Procedure Performed Yes No -Type of Procedure Debridement -Clinical Debridement Subcutaneous -Tissue Removed Subcutaneous -Post Debridement (cm) - Length 1.7 -Post Debridement (cm) - Width 1.5 -Post Debridement (cm) - Depth 0.1 -Total Square (Post) (cm) 2.55 -Area of Debridement (cm) - Length 1.7 -Area of Debridement (cm) - Width 1.5 -Total Square (Area) (cm) 2.55 -Tunneling No -Undermining/Tunneling No -Circular Undermining No -Wound/Ulcer Outcome Not Healed Not Healed -Ulcer Cleansing Rinsed/ Irrigated with Saline -Foul Odor after Cleansing No -Bioengineered Tissue Yes -Type of Bioengineered Tissue Epifix 18mm Disc -Type of Bioengineered Tissue -Expiration Date 06/19/28 -Product Lot Number [id number] -Percent Used 100 -Bleeding Controlled with Pressure -Treatment Response Procedure Tolerated Well -Debridement - Subq, 1st 20sq cm No No -Apply Skin Sub - 1st 25 sq cm - Legs 1 -Epifix (per sq cm) -Epifix 18mm Disc 3 -Epifix Mesh (per sq cm) Pain Scale: 0-10 Numeric Is Patient Pain Free? Yes Yes WC - Nurse 3 - General Ulcer D/C NN Start: 10/20/23 07:58 Freq: Status: Active Protocol: Activity Type Activity Date Activity User E-sign Co-sign Detail Recorded Client Recorded Date Recorded By Document 10/20/23 08:01 [facility] Desktop 10/20/23 08:03 [facility] Edit Result 10/20/23 08:01 [facility] (1) [id number] 10/21/23 07:17 PL Document 10/22/23 11:32 KW Desktop 10/22/23 11:33 KW Document 10/26/23 07:38 PL [id number] 10/27/23 07:38 PL Document 10/29/23 09:53 KW Desktop 10/29/23 09:54 KW Document 11/05/23 09:18 KW Desktop 11/05/23 09:20 KW Document 11/05/23 09:40 KW Desktop 11/05/23 09:45 KW Document 11/12/23 09:33 KW Desktop 11/12/23 09:34 KW Document 11/17/23 09:54 DL Desktop 11/17/23 09:56 DL (1) Left - Multi-Layered Wrap Application => Multi-Layer Comp - => Left ($) 10/20/23 10/22/23 10/26/23 08:01 11:32 07:38 Wound Care Center Nurse 3 #1 L Med Ankle -Ulcer Cleansing -Foul Odor after Cleansing -Primary Dressing Applied Optilok 6.5x10 Optilok 6.5x10 -Other Dressing -Primary Dressing Covered/Secured with Dry Gauze & Dry Gauze & Roll Gauze, Roll Gauze, Secured with Secured with Tape Tape -Optilok 6.5x10 2 2 Left -Multi-Layered Wrap Application Multi-Layer Multi-Layer Multi-Layer Comp - Left ($) Comp - Left ($) Comp - Left ($) -Tubular Bandage -Size of Tubigrip Used -Size D ($) -Size E ($) Treatment Response Pain Scale: 0-10 Numeric Is Patient Pain Free? Yes Yes Yes WC - Visit Discharge Discharge Condition Stable Ambulatory Status Ambulatory Transportation Private Auto Medication Reconcilliation completed & No provided to patient/care provider Clinical Summary of Care Provided Yes Notes: 10/29/23 11/05/23 11/05/23 09:53 09:18 09:40 Wound Care Center Nurse 3 #1 L Med Ankle -Ulcer Cleansing Rinsed/ Rinsed/ Irrigated with Irrigated with Saline Saline -Foul Odor after Cleansing No -Primary Dressing Applied Hysept ($) Hysept ($) -Other Dressing abd, kerlix -Primary Dressing Covered/Secured with Dry Gauze & Dry Gauze & Dry Gauze & Roll Gauze, Roll Gauze, Roll Gauze, Secured with Secured with Secured with Tape Tape Tape -Optilok 6.5x10 Left -Multi-Layered Wrap Application -Tubular Bandage Single Layer Double Layer -Size of Tubigrip Used Size D Size D -Size D ($) 1 2 -Size E ($) Treatment Response Procedure Tolerated Well Pain Scale: 0-10 Numeric Is Patient Pain Free? Yes Yes Yes WC - Visit Discharge Discharge Condition Stable Stable Stable Ambulatory Status Ambulatory Ambulatory Ambulatory Transportation Private Auto Private Auto Private Auto Medication Reconcilliation completed & No No provided to patient/care provider Clinical Summary of Care Provided Yes Yes Notes: 11/12/23 11/17/23 09:33 09:54 Wound Care Center Nurse 3 #1 L Med Ankle -Ulcer Cleansing Soap and Water -Foul Odor after Cleansing No -Primary Dressing Applied -Other Dressing -Primary Dressing Covered/Secured with Dry Gauze & Dry Gauze & Roll Gauze, Roll Gauze, Secured with Secured with Tape Tape -Optilok 6.5x10 Left -Multi-Layered Wrap Application Multi-Layer Comp - Left ($) -Tubular Bandage Double Layer -Size of Tubigrip Used Size E -Size D ($) -Size E ($) 2 Treatment Response Procedure Tolerated Well Pain Scale: 0-10 Numeric Is Patient Pain Free? Yes Yes WC - Visit Discharge Discharge Condition Stable Stable Ambulatory Status Ambulatory Ambulatory Transportation Private Auto Private Auto Medication Reconcilliation completed & No provided to patient/care provider Clinical Summary of Care Provided Yes Notes: Epi left intact . Adaptic to blistered area. 3M applied. F/ U with Dr Burns as scheduled. Assessment/Plan Assessment/Plan (1) Venous insufficiency (chronic) (peripheral): CODE(S): I87.2 - Venous insufficiency (chronic) (peripheral) PLAN: Exam performed. Using aseptic technique bolus to anterior medial ankle was lysed using a focal incision with a 15 blade. Serous drainage was noted. Site was dressed with Adaptic overlying alginate. Additionally a dry sterile dressing was applied as well as a multilayer compression wrap. Patient will follow-up with Dr. Burns on . Patient is receiving IV antibiotics per infectious disease for Pseudomonas infection to the left medial ankle. (2) Non-pressure chronic ulcer of left ankle with necrosis of muscle: CODE(S): L97.323 - Non-pressure chronic ulcer of left ankle with necrosis of muscle 11/17/23 1008 <Electronically signed by Maxx Palma DPM> Cosigner Signature (if applicable): CC: ~ Signed [facility] Work Phone: [phone] 723-220201-25-2024 Progress note Author Merrill Burns [facility] November 12, 2023 9:51am Note Date/Time November 12, 2023 9 :18am [facility] [address] [place] [id number] Progress Note - Wound Care 11/12/23 0918 MR#: [id number] Acct: [id number] Name: WELLINGTON GONZALEZ Rep #:[id number] : 1945 78 From: Merrill machado DPM PCP: Dr. Randa Joseph, DO Status:REG RCR Location: History of Present Illness Date of Service: 11/12/23 Chief Complaint: Left medial ankle wound History of Wound: Patient is a 78-year-old male who presents to the wound care center with recurring left lower extremity medial ankle wound. He has PMHx of recurring left lower extremity ulceration secondary to chronic venous insufficiency, history of DVT, obesity, JOSHUA, iron deficient anemia, delayed wound healing, and asthma. He states that he does have compression stockings but his stockings are old. States that approximately 2-1/2 months ago this ulceration did open again to the medial ankle and has been unable to progress inhealing. He was placed on oral antibiotics, cephalexin, and is finishing antibiotic course. Has been applying topical ointments to the wound daily with dressing changes. He did follow with his primary care who did refer him to the wound center due to nonhealing ulceration. He denies trauma to the site. States that the specific site is recurrent with breakdown of skin. Denies N/V/F/chills. No further complaints. 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 He has left grafting product in place and is keeping compression dressing dry. He states he has started his infusions of IV Zosyn and will complete 6-week course per infectious disease. States he is continuing to elevate lower extremities and has noticed improvement in wound size. Denies constitutional symptoms. Denies further complaints. Objective Data Objective Data Vital Signs: Vital Signs Temp Pulse Resp BP O2 Del Method 95.5 F L 68 18 128/76 H Room Air 11/12/23 09:08 11/12/23 09:08 11/12/23 09:08 11/12/23 09:08 11/12/23 09:08 Oxygen Delivery Method Room Air Weight: 99.159 kg Body Mass Index (BMI) 28.8 Lab / Micro Data Micro: Microbiology 10/22/23 11:20 Wound - Ankle Gram Stain - Final 10/22/23 11:20 Wound - Ankle Wound Culture - Final Pseudomonas aeruginosa 10/22/23 11:20 Wound - Ankle Anaerobic Culture - Final No anaerobic bacteria isolated. Physical Exam Const alert, oriented x3 and no apparent distress General Appearance: cooperative HEENT normocephalic Eyes Eyes Narrative: Wears glasses General Eye: normal appearance of both eyes Neck General: normal visual inspection Lymph Lymphatic: no lymphadenopathy noted and no lymphedema noted Resp normal respiratory effort Cardio regular rate and regular rhythm Extremity normal capillary refill, no joint enlargement, no calf tenderness and no pedal edema Extremity Narrative: Vascular: DP and PT pulses weakly palpable. Capillary fill time to the digits is 5 seconds. Normal temperature gradient. There is absent hair growth to the digits noted. Dermatological: There is ulceration noted to the medial aspect of the left lowerextremity/ankle with healthy granular layer and serosanguineous drainage. Ulceration is noted to be overlying the neurovascular bundle. Negative Stemmer sign left foot. There is evidence of stasis dermatitis with hyperpigmentation/hemosiderin staining of the left lower extremity. Musculoskeletal: Muscle strength 5 of 5 age-appropriate. Skin no rashes or lesions noted, skin turgor normal and no jaundice Neuro moves all extremities Debridement Note Debridement Note Wound debrided: Left medial ankle Laterality: Left Wound Grade/Stage: Cisneros stage II Type of Debridement: Excisional debridement Anesthesia Used: 5% Lidocaine Gel Depth: Down to and including healthy tissue and in the subcutaneous layer Percentage of wound debrided: 100 Instrument Used: 5mm curette Tissue Removed: Fibrous, devitalized subcutaneous, biofilm, slough Severity: Fat Layer Exposed Amount of bleeding with debridement: Mild Bleeding Controlled with: Compression and gauze Patient tolerated procedure: Patient tolerated procedure well Post-Debridement Measurements and Additional Note: Post-Debridement Measurements/Treatment [facility] Nurse 1 - General Ulcer Assessment Start: 10/20/23 07:58 Freq: Status: Active Protocol: ANAYA Activity Type Activity Date Activity User E-sign Co-sign Detail Recorded Client Recorded Date Recorded By Document 10/20/23 07:58 [facility] Desktop 10/20/23 08:00 [facility] Document 10/22/23 10:55 Laptop 10/22/23 11:00 Document 10/26/23 08:20 KW Desktop 10/26/23 08:28 Document 10/29/23 09:40 [id number] 10/29/23 09:41 Document 11/05/23 09:06 KW Desktop 11/05/23 09:12 KW Document 11/12/23 09:08 KW Desktop 11/12/23 09:17 KW 10/20/23 10/22/23 10/26/23 07:58 10:55 08:20 - Today's Visit Information Type of service Nurse-only Follow-up Visit Nurse-only Visit (Physician/PROVIDER ENROLLMENT SPECIALIST Visit ) Arrival Mode Ambulatory Ambulatory Ambulatory Transfer Assistance None Accompanied by Patient Identification Verified (Name & Yes Yes Yes ) Patient Requires Transmission-Based No Precautions Height and Weight Body Mass Index (BMI) 28.8 28.8 28.8 BMI Classification Overweight Overweight Overweight Vital Signs Temperature (97.8 F-99.1 F) 98.1 F 96.0 F L 96.8 F L Temperature Source Temporal Temporal Temporal Pulse Rate (60-100) 72 101 H 63 Pulse Location Monitor Monitor Monitor Respiratory Rate (12-18) 18 18 20 H Respiratory rate source Observation Observation Observation Oxygen Delivery Method Room Air Room Air Blood Pressure (90/60-120/80) 164/59 H 110/81 H 135/55 H Blood Pressure Mean (mm Hg) 94 90 81 Source Monitor Monitor Monitor Position Semi-Fowlers Semi-Fowlers Blood Pressure Location Left Arm Left Arm History Since Last Visit- (Skip if this is Patient's initial visit) Have you changed medications since your No No last visit? Any new allergies or adverse reactions No No No Had a fall/change in ADL's that may No No No increase risk of falls Signs or symptoms of abuse and/or No No No neglect since last visit Have you been in the hospital since your No No No last visit? Has dressing in place as prescribed Yes Yes Yes Has compression in place as prescribed Yes Yes Yes Has offloadiing in place as prescribed No No N/A Experienced any changes in pain level or No No No management Left Footwear Regular Shoe Regular Shoe Right Footwear Regular Shoe Regular Shoe Pain Scale: 0-10 Numeric Is Patient Pain Free? Yes Yes Yes 10/29/23 11/05/23 11/12/23 09:40 09:06 09:08 WC - Today's Visit Information Type of service Follow-up Visit Follow-up Visit Follow-up Visit (Physician/PROVIDER ENROLLMENT SPECIALIST (Physician/PROVIDER ENROLLMENT SPECIALIST (Physician/PROVIDER ENROLLMENT SPECIALIST ) ) ) Arrival Mode Ambulatory Ambulatory Ambulatory Transfer Assistance Accompanied by Patient Identification Verified (Name & Yes Yes Yes ) Patient Requires Transmission-Based No Precautions Height and Weight Body Mass Index (BMI) 28.8 28.8 28.8 BMI Classification Overweight Overweight Overweight Vital Signs Temperature (97.8 F-99.1 F) 96.1 F L 95.5 F L Temperature Source Temporal Temporal Pulse Rate (60-100) 72 70 68 Pulse Location Monitor Monitor Monitor Respiratory Rate (12-18) 16 18 18 Respiratory rate source Observation Observation Observation Oxygen Delivery Method Room Air Room Air Blood Pressure (90/60-120/80) 130/90 H 150/78 H 128/76 H Blood Pressure Mean (mm Hg) 103 102 93 Source Monitor Monitor Monitor Position Semi-Fowlers Semi-Fowlers Sitting Blood Pressure Location Left Arm Left Arm Right Arm History Since Last Visit- (Skip if this is Patient's initial visit) Have you changed medications since your No No No last visit? Any new allergies or adverse reactions No No No Had a fall/change in ADL's that may No No No increase risk of falls Signs or symptoms of abuse and/or No No No neglect since last visit Have you been in the hospital since your No No No last visit? Has dressing in place as prescribed Yes Yes Yes Has compression in place as prescribed Yes Yes Yes Has offloadiing in place as prescribed N/A N/A N/A Experienced any changes in pain level or No No No management Left Footwear Regular Shoe Regular Shoe Regular Shoe Right Footwear Regular Shoe Regular Shoe Regular Shoe Pain Scale: 0-10 Numeric Is Patient Pain Free? Yes Yes Yes - Nurse 1 - General Ulcer Measurement Start: 10/20/23 07:58 Freq: Status: Active Protocol: Activity Type Activity Date Activity User E-sign Co-sign Detail Recorded Client Recorded Date Recorded By Document 10/20/23 08:00 [facility] Desktop 10/20/23 08:01 [facility] Document 10/22/23 10:55 Laptop 10/22/23 11:00 JF Document 10/26/23 08:20 KW Desktop 10/26/23 08:28 KW Document 10/29/23 09:40 [id number] 10/29/23 09:41 JF Document 11/05/23 09:06 KW Desktop 11/05/23 09:12 KW Document 11/12/23 09:08 KW Desktop 11/12/23 09:17 KW 10/20/23 10/22/23 10/26/23 08:00 10:55 08:20 Wound Center Nurse 1 #1 L Med Ankle -Combined with other wound -Current Size (cm) - Length 2.3 -Current Size (cm) - Width 2.8 -Current Size (cm) - Depth 0.1 -Total Square Cm 6.44 -Date of Last Picture (Recall this field) -Photo Taken -Epithelialization -Tunneling -Undermining/Tunneling -Circular Undermining -Exudate Amt Medium Small -Exudate Type Serosanguineous Serosanguineous -Wound Margin Distinct, Outline Attached -Granulation Amt Large (67-100%) -Granulation Quality Red -Slough/Fibrin -Necrosis Amt -Necrotic Tissue Type -Structure Exposed -Texture (Megan-wound Skin Appearance) Assessed -Moisture (Megan-wound Skin Appearance) Assessed Dry/Scaly -Color (Megan-wound Skin Appearance) Assessed Hemosiderin Staining -Temperature (Megan-wound Skin No Abnormality No Abnormality Appearance) (Pt Warm) (Pt Warm) -Tenderness on Palpation (Megan-wound No Skin Appearance) -Ulcer Cleansing Soap and Water Soap and Water -Foul Odor after Cleansing No -Anesthetic Used 5% Lidocaine Gel -Wound Comment(s) Epimesh intact. Pt remains on ATB as ordered. Voices no complaints. Lower Limb Edema Present Right Calf (cm) 38.2 Right Ankle (cm) 23.6 Left Calf (cm) 32.7 39 Left Ankle (cm) 22.6 21.5 10/29/23 11/05/23 11/12/23 09:40 09:06 09:08 Wound Center Nurse 1 #1 L Med Ankle -Combined with other wound No -Current Size (cm) - Length 2.0 1.5 1.5 -Current Size (cm) - Width 2.6 2.0 1.9 -Current Size (cm) - Depth 0.1 0.1 0.1 -Total Square Cm 5.20 3.00 2.85 -Date of Last Picture (Recall this 11/05/23 field) -Photo Taken No Yes -Epithelialization Small 1-33% -Tunneling No -Undermining/Tunneling No -Circular Undermining No -Exudate Amt Large Small Medium -Exudate Type Yellow/Green Serosanguineous Serosanguineous -Wound Margin Flat & Intact Distinct, Distinct, Outline Outline Attached Attached -Granulation Amt Large (67-100%) Medium (34-66%) Large (67-100%) -Granulation Quality Red Red Red -Slough/Fibrin Yes -Necrosis Amt Small (1-33%) Small (1-33%) Small (1-33%) -Necrotic Tissue Type Adherent Slough Adherent Slough Adherent Slough -Structure Exposed N/A -Texture (Megan-wound Skin Appearance) Assessed, Assessed Assessed Excoriation, Localized Edema -Moisture (Megan-wound Skin Appearance) Assessed,Dry/ Assessed Assessed,Dry/ Scaly Scaly -Color (Megan-wound Skin Appearance) Assessed Assessed Assessed -Temperature (Megan-wound Skin No Abnormality No Abnormality No Abnormality Appearance) (Pt Warm) (Pt Warm) (Pt Warm) -Tenderness on Palpation (Megan-wound No Skin Appearance) -Ulcer Cleansing Wound Cleanser Soap and Water Soap and Water -Foul Odor after Cleansing No No No -Anesthetic Used 5% Lidocaine 5% Lidocaine 5% Lidocaine Gel Gel Gel -Wound Comment(s) Lower Limb Edema Present Yes Right Calf (cm) Right Ankle (cm) Left Calf (cm) 36.8 40.5 36.5 Left Ankle (cm) 23.0 25 25 WC - Nurse 2 - General Ulcer CM Notes Start: 10/20/23 07:58 Freq: Status: Active Protocol: Activity Type Activity Date Activity User E-sign Co-sign Detail Recorded Client Recorded Date Recorded By Document 10/22/23 12:24 PL [id number] 10/22/23 12:26 PL Document 10/29/23 12:03 PL [id number] 10/29/23 12:04 PL Document 11/05/23 10:22 PL Tablet 11/05/23 10:25 PL 10/22/23 10/29/23 11/05/23 12:24 12:03 10:22 Wound Center Nurse 2 #1 L Med Ankle -Time 11:13 09:37 09:30 -Correct Patient Yes Yes Yes -Correct Side, Site, Position Yes Yes Yes -Correct Procedure Yes Yes Yes -Procedure Performed Yes Yes Yes -Type of Procedure Debridement Debridement Debridement -Clinical Debridement Subcutaneous Subcutaneous Subcutaneous -Tissue Removed Subcutaneous Subcutaneous Subcutaneous -Post Debridement (cm) - Length 2.5 2.0 1.6 -Post Debridement (cm) - Width 2.5 2.3 2.1 -Post Debridement (cm) - Depth 0.1 0.2 0.1 -Total Square (Post) (cm) 6.25 4.60 3.36 -Area of Debridement (cm) - Length 2.5 2.0 1.6 -Area of Debridement (cm) - Width 2.5 2.3 2.1 -Total Square (Area) (cm) 6.25 4.60 3.36 -Tunneling No No No -Undermining/Tunneling No No No -Circular Undermining No No No -Wound/Ulcer Outcome Not Healed Not Healed Not Healed -Ulcer Cleansing Rinsed/ Rinsed/ Rinsed/ Irrigated with Irrigated with Irrigated with Saline Saline Saline -Foul Odor after Cleansing No No No -Bioengineered Tissue Yes No Yes -Type of Bioengineered Tissue Epifix Mesh Epifix -Expiration Date 06/19/28 08/19/28 -Product Lot Number [id number] -Percent Used 100 100 -Bleeding Controlled with Pressure Pressure Pressure -Treatment Response Procedure Procedure Procedure Tolerated Well Tolerated Well Tolerated Well -Debridement - Subq, 1st 20sq cm No Yes No -Apply Skin Sub - 1st 25 sq cm - Legs 1 1 -Epifix (per sq cm) 4 -Epifix Mesh (per sq cm) 11 Pain Scale: 0-10 Numeric Is Patient Pain Free? Yes Yes Yes - Nurse 3 - General Ulcer D/C NN Start: 10/20/23 07:58 Freq: Status: Active Protocol: Activity Type Activity Date Activity User E-sign Co-sign Detail Recorded Client Recorded Date Recorded By Document 10/20/23 08:01 BMF Desktop 10/20/23 08:03 BMF Edit Result 10/20/23 08:01 BMF (1) [id number] 10/21/23 07:17 PL Document 10/22/23 11:32 KW Desktop 10/22/23 11:33 KW Document 10/26/23 07:38 PL [id number] 10/27/23 07:38 PL Document 10/29/23 09:53 KW Desktop 10/29/23 09:54 KW Document 11/05/23 09:18 KW Desktop 11/05/23 09:20 KW Document 11/05/23 09:40 KW Desktop 11/05/23 09:45 KW (1) Left - Multi-Layered Wrap Application => Multi-Layer Comp - => Left ($) 10/20/23 10/22/23 10/26/23 08:01 11:32 07:38 Wound Care Center Nurse 3 #1 L Med Ankle -Ulcer Cleansing -Foul Odor after Cleansing -Primary Dressing Applied Optilok 6.5x10 Optilok 6.5x10 -Other Dressing -Primary Dressing Covered/Secured with Dry Gauze & Dry Gauze & Roll Gauze, Roll Gauze, Secured with Secured with Tape Tape -Optilok 6.5x10 2 2 Left -Multi-Layered Wrap Application Multi-Layer Multi-Layer Multi-Layer Comp - Left ($) Comp - Left ($) Comp - Left ($) -Tubular Bandage -Size of Tubigrip Used -Size D ($) Treatment Response Pain Scale: 0-10 Numeric Is Patient Pain Free? Yes Yes Yes WC - Visit Discharge Discharge Condition Stable Ambulatory Status Ambulatory Transportation Private Auto Medication Reconcilliation completed & No provided to patient/care provider Clinical Summary of Care Provided Yes 10/29/23 11/05/23 11/05/23 09:53 09:18 09:40 Wound Care Center Nurse 3 #1 L Med Ankle -Ulcer Cleansing Rinsed/ Rinsed/ Irrigated with Irrigated with Saline Saline -Foul Odor after Cleansing No -Primary Dressing Applied Hysept ($) Hysept ($) -Other Dressing abd, kerlix -Primary Dressing Covered/Secured with Dry Gauze & Dry Gauze & Dry Gauze & Roll Gauze, Roll Gauze, Roll Gauze, Secured with Secured with Secured with Tape Tape Tape -Optilok 6.5x10 Left -Multi-Layered Wrap Application -Tubular Bandage Single Layer Double Layer -Size of Tubigrip Used Size D Size D -Size D ($) 1 2 Treatment Response Procedure Tolerated Well Pain Scale: 0-10 Numeric Is Patient Pain Free? Yes Yes Yes WC - Visit Discharge Discharge Condition Stable Stable Stable Ambulatory Status Ambulatory Ambulatory Ambulatory Transportation Private Auto Private Auto Private Auto Medication Reconcilliation completed & No No provided to patient/care provider Clinical Summary of Care Provided Yes Yes Assessment/Plan Assessment/Plan (1) Delayed wound healing: CODE(S): T14.8XXD - Other injury of unspecified body region, subsequent encounter (2) Non-pressure chronic ulcer of left ankle with necrosis of muscle: CODE(S): L97.323 - Non-pressure chronic ulcer of left ankle with necrosis of muscle (3) Venous insufficiency (chronic) (peripheral): CODE(S): I87.2 - Venous insufficiency (chronic) (peripheral) (4) Obesity: CODE(S): E66.9 - Obesity, unspecified (5) Iron deficiency anemia: CODE(S): D50.9 - Iron deficiency anemia, unspecified PLAN: Plan Patient seen and evaluated Left lower extremity: There is ulceration noted to the medial aspect of the leftlower extremity/ankle with healthy granular tissue with some serosanguineous drainage. Ulceration is noted to be overlying the neurovascular bundle. Negative Stemmer sign left foot. There is evidence of stasis dermatitis with hyperpigmentation/hemosiderin staining of the left lower extremity. Ulceration underwent debridement as noted in the clinical panel above. Ulceration measures 1.7 cm x 1.5 cm x 0.1 cm. No signs of infection. Skin maceration resolved with less drainage and wound is granulating in well. EpiFixgraft #8 applied to wound bed today. Site dressed with Adaptic touch, Steri-Strips, and dry sterile dressing. 3M compression wrap applied to lower extremity. He was instructed to not get the dressing wet. Ulceration continues to demonstrate reduction in size versus previous visits. Overall tissue continues improvement with less drainage. Discussed if he soaks through dressing to call and return for new dressing/compression wrap application. He had another bout of increased drainage with some localized rubor secondary tomacerated tissue. Patient was not elevating legs and increasing work shifts over the weekend of greater than 12 hours at a time on his feet. Discussion washad with him that he must continue elevating legs and limit time on feet to aid in wound healing. Cultures were obtained 10/22/2023 and positive wound and urine culture with PsA. Also has PsA in urine. Wound does demonstrate reduction in size however due to previous drainage he was started on oral antibiotic. Rx Augmentin 875 mg twice daily x 14 days. Stop date 11/05/2023. He is following with infectious disease and will continue to receive outpatient IV antibiotic infusions of Zosyn for 6 weeks. I discussed continued elevation of the lower extremity at all times of rest to aid in edema control. I discussed once ulceration is healed he is to return to a prescription based compression stocking. Discussed updating stockings every 6 to 9 months to ensure proper uniform compression to treat his chronic venous insufficiency and to reduce recidivism of wound. LEAS performed 09/02/23 demonstrates right RONEN 1.31, normal. TBI and Doppler/PVR waveforms of right leg normal at rest; left RONEN 1.38, normal. TBI and Doppler/PVR waveforms of the left leg normal at rest. Venous studies performed 09/02/2023 demonstrates no evidence of bilateral lower extremity DVT. Bilateral great saphenous veins appear patent and compressible segmentally. Positive for reflux right popliteal vein, great saphenous vein in. Positive for reflux left popliteal vein, saphenofemoral junction. Discussed importance of serial debridement to aid in wound healing. He was approved for application of EpiFix advanced wound product, we will continue applications. Discussed proper diet to increase protein intake to aid in wound healing. Recommended Vladimir supplementation. Discussed reducing foods with salty content to aid in edema control. Discussed avoidance of prolonged standing or legs dangling over side of chair/bed. Discussed with patient the depth of the ulcerative site and close proximity to the neurovascular bundle. Discussed with him signs and symptoms of infection. Discussed if he notices redness about the ulcerative site moving up the leg, purulent drainage from the wound site, foul increasing odor from the wound, or if he experiences fever greater than 101 degree, nausea, vomiting, chills/rigor,that these are signs of progressing infection and he should report to the ED to receive IV antibiotics. Patient and voiced understanding of this. The following work up and care recommendations were made: Dressing: EpiFix, Adaptic touch, Steri-Strips, Suprasorb, 3M compression wrap left lower extremity. Wash: Do not get wet Tissue growth optimization: EpiFix Offload: To ensure no pressure to the medial ankle/hindfoot Vascular: DP and PT pulses palpable with adequate capillary fill to digits. Edema: Discussed elevation of lower extremities at times of rest. 3M compression wrap placed. Infection: No signs of infection. Rx: Augmentin 875mg BID x 14 days, stop date 11/05/23. He was instructed to take oral antibiotic to completion. Will continue following infectious disease for IV antibiotic outpatient at infusion center for treatment of UTI Pain: May take Tylenol extra strength for discomfort Host factors: Chronic venous insufficiency I answered all the patient's questions. To return to the wound healing center in 1 week or call sooner if the patient has any questions or concerns. 11/12/23 0914 <Electronically signed by Merrill Burns DPM> Cosigner Signature (if applicable): CC: ~ Signed [facility] Work Phone: 1(147) 840-585901-19-2024 Procedure [facility] 11-05-2023 Progress note Author Merrill Burns [facility] November 05, 2023 9:58am Note Date/Time November 05, 2023 9 :20am [facility] [address] [place] [address] Progress Note - Wound Care 11/05/2320 MR#: [id number] Acct: [id number] Name: WELLINGTON GONZALEZ Rep #:[id number] : 1945 78 From: Merrill machado DPM PCP: Dr. Randa Joseph, DO Status:REG RCR Location: History of Present Illness Date of Service: 11/05/23 Chief Complaint: Left medial ankle wound History of Wound: Patient is a 78-year-old male who presents to the wound care center with recurring left lower extremity medial ankle wound. He has PMHx of recurring left lower extremity ulceration secondary to chronic venous insufficiency, history of DVT, obesity, JOSHUA, iron deficient anemia, delayed wound healing, and asthma. He states that he does have compression stockings but his stockings are old. States that approximately 2-1/2 months ago this ulceration did open again to the medial ankle and has been unable to progress inhealing. He was placed on oral antibiotics, cephalexin, and is finishing antibiotic course. Has been applying topical ointments to the wound daily with dressing changes. He did follow with his primary care who did refer him to the wound center due to nonhealing ulceration. He denies trauma to the site. States that the specific site is recurrent with breakdown of skin. Denies N/V/F/chills. No further complaints. 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 He has been changing Dakin's dressing daily. States drainage is decreased significantly. He is taking the oral antibiotic and did see infectious disease who will start IV infusion for treatment of UTI. Denies constitutional symptoms. Denies further complaints. Objective Data Objective Data Vital Signs: Vital Signs Temp Pulse Resp BP O2 Del Method 96.1 F L 70 18 150/78 H Room Air 10/29/23 09:40 11/05/23 09:06 11/05/23 09:06 11/05/23 09:06 11/05/23 09:06 Oxygen Delivery Method Room Air Weight: 99.159 kg Body Mass Index (BMI) 28.8 Lab / Micro Data Micro: Microbiology 10/22/23 11:20 Wound - Ankle Gram Stain - Final 10/22/23 11:20 Wound - Ankle Wound Culture - Final Pseudomonas aeruginosa 10/22/23 11:20 Wound - Ankle Anaerobic Culture - Final No anaerobic bacteria isolated. Physical Exam Const alert, oriented x3 and no apparent distress General Appearance: cooperative HEENT normocephalic Eyes Eyes Narrative: Wears glasses General Eye: normal appearance of both eyes Neck General: normal visual inspection Lymph Lymphatic: no lymphadenopathy noted and no lymphedema noted Resp normal respiratory effort Cardio regular rate and regular rhythm Extremity normal capillary refill, no joint enlargement, no calf tenderness and no pedal edema Extremity Narrative: Vascular: DP and PT pulses weakly palpable. Capillary fill time to the digits is 5 seconds. Normal temperature gradient. There is absent hair growth to the digits noted. Dermatological: There is ulceration noted to the medial aspect of the left lowerextremity/ankle with healthy granular layer and serosanguineous drainage. Ulceration is noted to be overlying the neurovascular bundle. Negative Stemmer sign left foot. There is evidence of stasis dermatitis with hyperpigmentation/hemosiderin staining of the left lower extremity. Musculoskeletal: Muscle strength 5 of 5 age-appropriate. Skin no rashes or lesions noted, skin turgor normal and no jaundice Neuro moves all extremities Debridement Note Debridement Note Wound debrided: Left medial ankle Laterality: Left Wound Grade/Stage: Cisneros stage II Type of Debridement: Excisional debridement Anesthesia Used: 5% Lidocaine Gel Depth: Down to and including healthy tissue and in the subcutaneous layer Percentage of wound debrided: 100 Instrument Used: 5mm curette Tissue Removed: Fibrous, devitalized subcutaneous, biofilm, slough Severity: Fat Layer Exposed Amount of bleeding with debridement: Mild Bleeding Controlled with: Compression and gauze Patient tolerated procedure: Patient tolerated procedure well Post-Debridement Measurements and Additional Note: Post-Debridement Measurements/Treatment LA NENA - Nurse 1 - General Ulcer Assessment Start: 10/20/23 07:58 Freq: Status: Active Protocol: WC.LOWEXT Activity Type Activity Date Activity User E-sign Co-sign Detail Recorded Client Recorded Date Recorded By Document 10/20/23 07:58 BMF Desktop 10/20/23 08:00 BM Document 10/22/23 10:55 Laptop 10/22/23 11:00 JF Document 10/26/23 08:20 KW Desktop 10/26/23 08:28 KW Document 10/29/23 09:40 JF [id number] 10/29/23 09:41 JF Document 11/05/23 09:06 KW Desktop 11/05/23 09:12 KW 10/20/23 10/22/23 10/26/23 07:58 10:55 08:20 - Today's Visit Information Type of service Nurse-only Follow-up Visit Nurse-only Visit (Physician/PROVIDER ENROLLMENT SPECIALIST Visit ) Arrival Mode Ambulatory Ambulatory Ambulatory Transfer Assistance None Accompanied by Patient Identification Verified (Name & Yes Yes Yes ) Patient Requires Transmission-Based No Precautions Height and Weight Body Mass Index (BMI) 28.8 28.8 28.8 BMI Classification Overweight Overweight Overweight Vital Signs Temperature (97.8 F-99.1 F) 98.1 F 96.0 F L 96.8 F L Temperature Source Temporal Temporal Temporal Pulse Rate (60-100) 72 101 H 63 Pulse Location Monitor Monitor Monitor Respiratory Rate (12-18) 18 18 20 H Respiratory rate source Observation Observation Observation Oxygen Delivery Method Room Air Room Air Blood Pressure (90/60-120/80) 164/59 H 110/81 H 135/55 H Blood Pressure Mean (mm Hg) 94 90 81 Source Monitor Monitor Monitor Position Semi-Fowlers Semi-Fowlers Blood Pressure Location Left Arm Left Arm History Since Last Visit- (Skip if this is Patient's initial visit) Have you changed medications since your No No last visit? Any new allergies or adverse reactions No No No Had a fall/change in ADL's that may No No No increase risk of falls Signs or symptoms of abuse and/or No No No neglect since last visit Have you been in the hospital since your No No No last visit? Has dressing in place as prescribed Yes Yes Yes Has compression in place as prescribed Yes Yes Yes Has offloadiing in place as prescribed No No N/A Experienced any changes in pain level or No No No management Left Footwear Regular Shoe Regular Shoe Right Footwear Regular Shoe Regular Shoe Pain Scale: 0-10 Numeric Is Patient Pain Free? Yes Yes Yes 10/29/23 11/05/23 09:40 09:06 - Today's Visit Information Type of service Follow-up Visit Follow-up Visit (Physician/PROVIDER ENROLLMENT SPECIALIST (Physician/PROVIDER ENROLLMENT SPECIALIST ) ) Arrival Mode Ambulatory Ambulatory Transfer Assistance Accompanied by Patient Identification Verified (Name & Yes Yes ) Patient Requires Transmission-Based No Precautions Height and Weight Body Mass Index (BMI) 28.8 28.8 BMI Classification Overweight Overweight Vital Signs Temperature (97.8 F-99.1 F) 96.1 F L Temperature Source Temporal Pulse Rate (60-100) 72 70 Pulse Location Monitor Monitor Respiratory Rate (12-18) 16 18 Respiratory rate source Observation Observation Oxygen Delivery Method Room Air Blood Pressure (90/60-120/80) 130/90 H 150/78 H Blood Pressure Mean (mm Hg) 103 102 Source Monitor Monitor Position Semi-Fowlers Semi-Fowlers Blood Pressure Location Left Arm Left Arm History Since Last Visit- (Skip if this is Patient's initial visit) Have you changed medications since your No No last visit? Any new allergies or adverse reactions No No Had a fall/change in ADL's that may No No increase risk of falls Signs or symptoms of abuse and/or No No neglect since last visit Have you been in the hospital since your No No last visit? Has dressing in place as prescribed Yes Yes Has compression in place as prescribed Yes Yes Has offloadiing in place as prescribed N/A N/A Experienced any changes in pain level or No No management Left Footwear Regular Shoe Regular Shoe Right Footwear Regular Shoe Regular Shoe Pain Scale: 0-10 Numeric Is Patient Pain Free? Yes Yes - Nurse 1 - General Ulcer Measurement Start: 10/20/23 07:58 Freq: Status: Active Protocol: Activity Type Activity Date Activity User E-sign Co-sign Detail Recorded Client Recorded Date Recorded By Document 10/20/23 08:00 F Desktop 10/20/23 08:01 BM Document 10/22/23 10:55 JF Laptop 10/22/23 11:00 JF Document 10/26/23 08:20 KW Desktop 10/26/23 08:28 KW Document 10/29/23 09:40 [id number] 10/29/23 09:41 JF Document 11/05/23 09:06 KW Desktop 11/05/23 09:12 KW 10/20/23 10/22/23 10/26/23 08:00 10:55 08:20 Wound Center Nurse 1 #1 L Med Ankle -Combined with other wound -Current Size (cm) - Length 2.3 -Current Size (cm) - Width 2.8 -Current Size (cm) - Depth 0.1 -Total Square Cm 6.44 -Date of Last Picture (Recall this field) -Photo Taken -Epithelialization -Tunneling -Undermining/Tunneling -Circular Undermining -Exudate Amt Medium Small -Exudate Type Serosanguineous Serosanguineous -Wound Margin Distinct, Outline Attached -Granulation Amt Large (67-100%) -Granulation Quality Red -Slough/Fibrin -Necrosis Amt -Necrotic Tissue Type -Structure Exposed -Texture (Megan-wound Skin Appearance) Assessed -Moisture (Megan-wound Skin Appearance) Assessed Dry/Scaly -Color (Megan-wound Skin Appearance) Assessed Hemosiderin Staining -Temperature (Megan-wound Skin No Abnormality No Abnormality Appearance) (Pt Warm) (Pt Warm) -Tenderness on Palpation (Megan-wound No Skin Appearance) -Ulcer Cleansing Soap and Water Soap and Water -Foul Odor after Cleansing No -Anesthetic Used 5% Lidocaine Gel -Wound Comment(s) Epimesh intact. Pt remains on ATB as ordered. Voices no complaints. Lower Limb Edema Present Right Calf (cm) 38.2 Right Ankle (cm) 23.6 Left Calf (cm) 32.7 39 Left Ankle (cm) 22.6 21.5 10/29/23 11/05/23 09:40 09:06 Wound Center Nurse 1 #1 L Med Ankle -Combined with other wound No -Current Size (cm) - Length 2.0 1.5 -Current Size (cm) - Width 2.6 2.0 -Current Size (cm) - Depth 0.1 0.1 -Total Square Cm 5.20 3.00 -Date of Last Picture (Recall this 11/05/23 field) -Photo Taken No Yes -Epithelialization Small 1-33% -Tunneling No -Undermining/Tunneling No -Circular Undermining No -Exudate Amt Large Small -Exudate Type Yellow/Green Serosanguineous -Wound Margin Flat & Intact Distinct, Outline Attached -Granulation Amt Large (67-100%) Medium (34-66%) -Granulation Quality Red Red -Slough/Fibrin Yes -Necrosis Amt Small (1-33%) Small (1-33%) -Necrotic Tissue Type Adherent Slough Adherent Slough -Structure Exposed N/A -Texture (Megan-wound Skin Appearance) Assessed, Assessed Excoriation, Localized Edema -Moisture (Megan-wound Skin Appearance) Assessed,Dry/ Assessed Scaly -Color (Megan-wound Skin Appearance) Assessed Assessed -Temperature (Megan-wound Skin No Abnormality No Abnormality Appearance) (Pt Warm) (Pt Warm) -Tenderness on Palpation (Megan-wound No Skin Appearance) -Ulcer Cleansing Wound Cleanser Soap and Water -Foul Odor after Cleansing No No -Anesthetic Used 5% Lidocaine 5% Lidocaine Gel Gel -Wound Comment(s) Lower Limb Edema Present Yes Right Calf (cm) Right Ankle (cm) Left Calf (cm) 36.8 40.5 Left Ankle (cm) 23.0 25 WC - Nurse 2 - General Ulcer CM Notes Start: 10/20/23 07:58 Freq: Status: Active Protocol: Activity Type Activity Date Activity User E-sign Co-sign Detail Recorded Client Recorded Date Recorded By Document 10/22/23 12:24 PL [id number] 10/22/23 12:26 PL Document 10/29/23 12:03 PL [id number] 10/29/23 12:04 PL 10/22/23 10/29/23 12:24 12:03 Wound Center Nurse 2 #1 L Med Ankle -Time 11:13 09:37 -Correct Patient Yes Yes -Correct Side, Site, Position Yes Yes -Correct Procedure Yes Yes -Procedure Performed Yes Yes -Type of Procedure Debridement Debridement -Clinical Debridement Subcutaneous Subcutaneous -Tissue Removed Subcutaneous Subcutaneous -Post Debridement (cm) - Length 2.5 2.0 -Post Debridement (cm) - Width 2.5 2.3 -Post Debridement (cm) - Depth 0.1 0.2 -Total Square (Post) (cm) 6.25 4.60 -Area of Debridement (cm) - Length 2.5 2.0 -Area of Debridement (cm) - Width 2.5 2.3 -Total Square (Area) (cm) 6.25 4.60 -Tunneling No No -Undermining/Tunneling No No -Circular Undermining No No -Wound/Ulcer Outcome Not Healed Not Healed -Ulcer Cleansing Rinsed/ Rinsed/ Irrigated with Irrigated with Saline Saline -Foul Odor after Cleansing No No -Bioengineered Tissue Yes No -Type of Bioengineered Tissue Epifix Mesh -Expiration Date 06/19/28 -Product Lot Number [id number] -Percent Used 100 -Bleeding Controlled with Pressure Pressure -Treatment Response Procedure Procedure Tolerated Well Tolerated Well -Debridement - Subq, 1st 20sq cm No Yes -Apply Skin Sub - 1st 25 sq cm - Legs 1 -Epifix Mesh (per sq cm) 11 Pain Scale: 0-10 Numeric Is Patient Pain Free? Yes Yes - Nurse 3 - General Ulcer D/C NN Start: 10/20/23 07:58 Freq: Status: Active Protocol: Activity Type Activity Date Activity User E-sign Co-sign Detail Recorded Client Recorded Date Recorded By Document 10/20/23 08:01 BM[facility] Desktop 10/20/23 08:03 BMF Edit Result 10/20/23 08:01 BMF (1) [id number] 10/21/23 07:17 PL Document 10/22/23 11:32 KW Desktop 10/22/23 11:33 KW Document 10/26/23 07:38 PL [id number] 10/27/23 07:38 PL Document 10/29/23 09:53 KW Desktop 10/29/23 09:54 KW Document 11/05/23 09:18 KW Desktop 11/05/23 09:20 KW (1) Left - Multi-Layered Wrap Application => Multi-Layer Comp - => Left ($) 10/20/23 10/22/23 10/26/23 08:01 11:32 07:38 Wound Care Center Nurse 3 #1 L Med Ankle -Ulcer Cleansing -Foul Odor after Cleansing -Primary Dressing Applied Optilok 6.5x10 Optilok 6.5x10 -Other Dressing -Primary Dressing Covered/Secured with Dry Gauze & Dry Gauze & Roll Gauze, Roll Gauze, Secured with Secured with Tape Tape -Optilok 6.5x10 2 2 Left -Multi-Layered Wrap Application Multi-Layer Multi-Layer Multi-Layer Comp - Left ($) Comp - Left ($) Comp - Left ($) -Tubular Bandage -Size of Tubigrip Used -Size D ($) Treatment Response Pain Scale: 0-10 Numeric Is Patient Pain Free? Yes Yes Yes WC - Visit Discharge Discharge Condition Stable Ambulatory Status Ambulatory Transportation Private Auto Medication Reconcilliation completed & No provided to patient/care provider Clinical Summary of Care Provided Yes 10/29/23 11/05/23 09:53 09:18 Wound Care Center Nurse 3 #1 L Med Ankle -Ulcer Cleansing Rinsed/ Rinsed/ Irrigated with Irrigated with Saline Saline -Foul Odor after Cleansing No -Primary Dressing Applied Hysept ($) Hysept ($) -Other Dressing abd, kerlix -Primary Dressing Covered/Secured with Dry Gauze & Dry Gauze & Roll Gauze, Roll Gauze, Secured with Secured with Tape Tape -Optilok 6.5x10 Left -Multi-Layered Wrap Application -Tubular Bandage Single Layer -Size of Tubigrip Used Size D -Size D ($) 1 Treatment Response Procedure Tolerated Well Pain Scale: 0-10 Numeric Is Patient Pain Free? Yes Yes WC - Visit Discharge Discharge Condition Stable Stable Ambulatory Status Ambulatory Ambulatory Transportation Private Auto Private Auto Medication Reconcilliation completed & No provided to patient/care provider Clinical Summary of Care Provided Yes Assessment/Plan Assessment/Plan (1) Delayed wound healing: CODE(S): T14.8XXD - Other injury of unspecified body region, subsequent encounter (2) Non-pressure chronic ulcer of left ankle with necrosis of muscle: CODE(S): L97.323 - Non-pressure chronic ulcer of left ankle with necrosis of muscle (3) Venous insufficiency (chronic) (peripheral): CODE(S): I87.2 - Venous insufficiency (chronic) (peripheral) (4) Obesity: CODE(S): E66.9 - Obesity, unspecified (5) Iron deficiency anemia: CODE(S): D50.9 - Iron deficiency anemia, unspecified PLAN: Plan Patient seen and evaluated Left lower extremity: There is ulceration noted to the medial aspect of the leftlower extremity/ankle with healthy granular tissue with some serosanguineous drainage. Ulceration is noted to be overlying the neurovascular bundle. Negative Stemmer sign left foot. There is evidence of stasis dermatitis with hyperpigmentation/hemosiderin staining of the left lower extremity. Ulceration underwent debridement as noted in the clinical panel above. Ulceration measures 1.6 cm x 2.1 cm x 0.2 cm. No signs of infection. Skin maceration improved with less drainage and wound is granulating in well. EpiFixgraft #7 applied to wound bed today. Site dressed with Adaptic touch, Steri-Strips, and dry sterile dressing. 3M compression wrap applied to lower extremity. He was instructed to not get the dressing wet. Ulceration continues to demonstrate reduction in size versus previous visits. Overall tissue much improved with less drainage. Discussed if he soaks through dressing to call and return for new dressing/compression wrap application. He had another bout of increased drainage with some localized rubor secondary tomacerated tissue. Patient was not elevating legs and increasing work shifts over the weekend of greater than 12 hours at a time on his feet. Discussion washad with him that he must continue elevating legs and limit time on feet to aid in wound healing. Cultures were obtained 10/22/2023 and positive wound and urine culture with PsA. Also has PsA in urine. Wound does demonstrate reduction in size however due to previous drainage he was started on oral antibiotic. Rx Augmentin 875 mg twice daily x 14 days. Stop date 11/05/2023. He is following with infectious disease and will continue to receive outpatient IV antibiotic infusions. I discussed continued elevation of the lower extremity at all times of rest to aid in edema control. I discussed once ulceration is healed he is to return to a prescription based compression stocking. Discussed updating stockings every 6 to 9 months to ensure proper uniform compression to treat his chronic venous insufficiency and to reduce recidivism of wound. LEAS performed 09/02/23 demonstrates right RONEN 1.31, normal. TBI and Doppler/PVR waveforms of right leg normal at rest; left RONEN 1.38, normal. TBI and Doppler/PVR waveforms of the left leg normal at rest. Venous studies performed 09/02/2023 demonstrates no evidence of bilateral lower extremity DVT. Bilateral great saphenous veins appear patent and compressible segmentally. Positive for reflux right popliteal vein, great saphenous vein in. Positive for reflux left popliteal vein, saphenofemoral junction. Discussed importance of serial debridement to aid in wound healing. He was approved for application of EpiFix advanced wound product, we will continue applications. Discussed proper diet to increase protein intake to aid in wound healing. Recommended Vladimir supplementation. Discussed reducing foods with salty content to aid in edema control. Discussed avoidance of prolonged standing or legs dangling over side of chair/bed. Discussed with patient the depth of the ulcerative site and close proximity to the neurovascular bundle. Discussed with him signs and symptoms of infection. Discussed if he notices redness about the ulcerative site moving up the leg, purulent drainage from the wound site, foul increasing odor from the wound, or if he experiences fever greater than 101 degree, nausea, vomiting, chills/rigor,that these are signs of progressing infection and he should report to the ED to receive IV antibiotics. Patient and voiced understanding of this. The following work up and care recommendations were made: Dressing: EpiFix, Adaptic touch, Steri-Strips, Suprasorb, 3M compression wrap left lower extremity. Wash: Do not get wet Tissue growth optimization: EpiFix Offload: To ensure no pressure to the medial ankle/hindfoot Vascular: DP and PT pulses palpable with adequate capillary fill to digits. Edema: Discussed elevation of lower extremities at times of rest. 3M compression wrap placed. Infection: No signs of infection. Rx: Augmentin 875mg BID x 14 days, stop date 11/05/23. He was instructed to take oral antibiotic to completion. Will continue following infectious disease for IV antibiotic outpatient at infusion center for treatment of UTI Pain: May take Tylenol extra strength for discomfort Host factors: Chronic venous insufficiency I answered all the patient's questions. To return to the wound healing center in 1 week or call sooner if the patient has any questions or concerns. 11/05/2358 <Electronically signed by Merrill Burns DPM> Cosigner Signature (if applicable): CC: ~ Signed [facility] Work Phone: 1(630) 219-401601-11-2024 Progress note Author Merrill Burns [facility] October 29, 2023 10:29am Note Date/Time October 29, 2023 9 :24am [facility] [address] [place] [address] Progress Note - Wound Care 10/29/23920 MR#: [id number] Acct: [id number] Name: WELLINGTON GONZALEZ Rep #:[id number] : 1945 78 From: Merrill machado DPM PCP: Dr. Randa Joseph, DO Status:REG RCR Location: History of Present Illness Date of Service: 10/29/23 Chief Complaint: Left medial ankle wound History of Wound: Patient is a 78-year-old male who presents to the wound care center with recurring left lower extremity medial ankle wound. He has PMHx of recurring left lower extremity ulceration secondary to chronic venous insufficiency, history of DVT, obesity, JOSHUA, iron deficient anemia, delayed wound healing, and asthma. He states that he does have compression stockings but his stockings are old. States that approximately 2-1/2 months ago this ulceration did open again to the medial ankle and has been unable to progress inhealing. He was placed on oral antibiotics, cephalexin, and is finishing antibiotic course. Has been applying topical ointments to the wound daily with dressing changes. He did follow with his primary care who did refer him to the wound center due to nonhealing ulceration. He denies trauma to the site. States that the specific site is recurrent with breakdown of skin. Denies N/V/F/chills. No further complaints. 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 Patient states that the compression wrapping continues to make his legs feel better. He states he is also having less pain around the wound site. He states drainage hasbecome less with oral antibiotic and elevating feet more. He reports standing/walking for more than 12 hours a day without elevating legs as he worksthrough the weekend but has cut back a few hours to aid in improvement. He returned to the wound center on Thursday for dressing change and dressings reported improvement with less drainage. Denies constitutional symptoms. Deniesfurther complaints. Objective Data Objective Data Vital Signs: Vital Signs Temp Pulse Resp BP O2 Del Method 96.8 F L 63 20 H 135/55 H Room Air 10/26/23 08:20 10/26/23 08:20 10/26/23 08:20 10/26/23 08:20 10/22/23 10:55 Oxygen Delivery Method Room Air Weight: 99.159 kg Body Mass Index (BMI) 28.8 Lab / Micro Data Micro: Microbiology 10/22/23 11:20 Wound - Ankle Gram Stain - Final 10/22/23 11:20 Wound - Ankle Wound Culture - Final Pseudomonas aeruginosa 10/22/23 11:20 Wound - Ankle Anaerobic Culture - Final No anaerobic bacteria isolated. Physical Exam Const alert, oriented x3 and no apparent distress General Appearance: cooperative HEENT normocephalic Eyes Eyes Narrative: Wears glasses General Eye: normal appearance of both eyes Neck General: normal visual inspection Lymph Lymphatic: no lymphadenopathy noted and no lymphedema noted Resp normal respiratory effort Cardio regular rate and regular rhythm Extremity normal capillary refill, no joint enlargement, no calf tenderness and no pedal edema Extremity Narrative: Vascular: DP and PT pulses weakly palpable. Capillary fill time to the digits is 5 seconds. Normal temperature gradient. There is absent hair growth to the digits noted. Dermatological: There is ulceration noted to the medial aspect of the left lowerextremity/ankle with healthy granular layer and serosanguineous drainage. Ulceration is noted to be overlying the neurovascular bundle. Negative Stemmer sign left foot. There is evidence of stasis dermatitis with hyperpigmentation/hemosiderin staining of the left lower extremity. Musculoskeletal: Muscle strength 5 of 5 age-appropriate. Skin no rashes or lesions noted, skin turgor normal and no jaundice Neuro moves all extremities Debridement Note Debridement Note Wound debrided: Left medial ankle Laterality: Left Wound Grade/Stage: Cisneros stage II Type of Debridement: Excisional debridement Anesthesia Used: 5% Lidocaine Gel Depth: Down to and including healthy tissue and in the subcutaneous layer Percentage of wound debrided: 100 Instrument Used: 5mm curette Tissue Removed: Fibrous, devitalized subcutaneous, biofilm, slough Severity: Fat Layer Exposed Amount of bleeding with debridement: Mild Bleeding Controlled with: Compression and gauze Patient tolerated procedure: Patient tolerated procedure well Post-Debridement Measurements and Additional Note: Post-Debridement Measurements/Treatment - Nurse 1 - General Ulcer Assessment Start: 10/20/23 07:58 Freq: Status: Active Protocol: ANAYA Activity Type Activity Date Activity User E-sign Co-sign Detail Recorded Client Recorded Date Recorded By Document 10/20/23 07:58 [facility] Desktop 10/20/23 08:00 [facility] Document 10/22/23 10:55 Laptop 10/22/23 11:00 Document 10/26/23 08:20 KW Desktop 10/26/23 08:28 KW 10/20/23 10/22/23 10/26/23 07:58 10:55 08:20 - Today's Visit Information Type of service Nurse-only Follow-up Visit Nurse-only Visit (Physician/PROVIDER ENROLLMENT SPECIALIST Visit ) Arrival Mode Ambulatory Ambulatory Ambulatory Transfer Assistance None Patient Identification Verified (Name & Yes Yes Yes ) Patient Requires Transmission-Based No Precautions Height and Weight Body Mass Index (BMI) 28.8 28.8 28.8 BMI Classification Overweight Overweight Overweight Vital Signs Temperature (97.8 F-99.1 F) 98.1 F 96.0 F L 96.8 F L Temperature Source Temporal Temporal Temporal Pulse Rate (60-100) 72 101 H 63 Pulse Location Monitor Monitor Monitor Respiratory Rate (12-18) 18 18 20 H Respiratory rate source Observation Observation Observation Oxygen Delivery Method Room Air Room Air Blood Pressure (90/60-120/80) 164/59 H 110/81 H 135/55 H Blood Pressure Mean (mm Hg) 94 90 81 Source Monitor Monitor Monitor Position Semi-Fowlers Semi-Fowlers Blood Pressure Location Left Arm Left Arm History Since Last Visit- (Skip if this is Patient's initial visit) Have you changed medications since your No No last visit? Any new allergies or adverse reactions No No No Had a fall/change in ADL's that may No No No increase risk of falls Signs or symptoms of abuse and/or No No No neglect since last visit Have you been in the hospital since your No No No last visit? Has dressing in place as prescribed Yes Yes Yes Has compression in place as prescribed Yes Yes Yes Has offloadiing in place as prescribed No No N/A Experienced any changes in pain level or No No No management Left Footwear Regular Shoe Regular Shoe Right Footwear Regular Shoe Regular Shoe Pain Scale: 0-10 Numeric Is Patient Pain Free? Yes Yes Yes - Nurse 1 - General Ulcer Measurement Start: 10/20/23 07:58 Freq: Status: Active Protocol: Activity Type Activity Date Activity User E-sign Co-sign Detail Recorded Client Recorded Date Recorded By Document 10/20/23 08:00 [facility] Desktop 10/20/23 08:01 [facility] Document 10/22/23 10:55 Laptop 10/22/23 11:00 JF Document 10/26/23 08:20 KW Desktop 10/26/23 08:28 KW 10/20/23 10/22/23 10/26/23 08:00 10:55 08:20 Wound Center Nurse 1 #1 L Med Ankle -Current Size (cm) - Length 2.3 -Current Size (cm) - Width 2.8 -Current Size (cm) - Depth 0.1 -Total Square Cm 6.44 -Exudate Amt Medium Small -Exudate Type Serosanguineous Serosanguineous -Wound Margin Distinct, Outline Attached -Granulation Amt Large (67-100%) -Granulation Quality Red -Texture (Megan-wound Skin Appearance) Assessed -Moisture (Megan-wound Skin Appearance) Assessed Dry/Scaly -Color (Megan-wound Skin Appearance) Assessed Hemosiderin Staining -Temperature (Megan-wound Skin No Abnormality No Abnormality Appearance) (Pt Warm) (Pt Warm) -Tenderness on Palpation (Megan-wound No Skin Appearance) -Ulcer Cleansing Soap and Water Soap and Water -Foul Odor after Cleansing No -Anesthetic Used 5% Lidocaine Gel -Wound Comment(s) Epimesh intact. Pt remains on ATB as ordered. Voices no complaints. Right Calf (cm) 38.2 Right Ankle (cm) 23.6 Left Calf (cm) 32.7 39 Left Ankle (cm) 22.6 21.5 WC - Nurse 2 - General Ulcer CM Notes Start: 10/20/23 07:58 Freq: Status: Active Protocol: Activity Type Activity Date Activity User E-sign Co-sign Detail Recorded Client Recorded Date Recorded By Document 10/22/23 12:24 [facility] [id number] 10/22/23 12:26 PL 10/22/23 12:24 Wound Center Nurse 2 #1 L Med Ankle -Time 11:13 -Correct Patient Yes -Correct Side, Site, Position Yes -Correct Procedure Yes -Procedure Performed Yes -Type of Procedure Debridement -Clinical Debridement Subcutaneous -Tissue Removed Subcutaneous -Post Debridement (cm) - Length 2.5 -Post Debridement (cm) - Width 2.5 -Post Debridement (cm) - Depth 0.1 -Total Square (Post) (cm) 6.25 -Area of Debridement (cm) - Length 2.5 -Area of Debridement (cm) - Width 2.5 -Total Square (Area) (cm) 6.25 -Tunneling No -Undermining/Tunneling No -Circular Undermining No -Wound/Ulcer Outcome Not Healed -Ulcer Cleansing Rinsed/ Irrigated with Saline -Foul Odor after Cleansing No -Bioengineered Tissue Yes -Type of Bioengineered Tissue Epifix Mesh -Expiration Date 06/19/28 -Product Lot Number [id number] -Percent Used 100 -Bleeding Controlled with Pressure -Treatment Response Procedure Tolerated Well -Debridement - Subq, 1st 20sq cm No -Apply Skin Sub - 1st 25 sq cm - Legs 1 -Epifix Mesh (per sq cm) 11 Pain Scale: 0-10 Numeric Is Patient Pain Free? Yes - Nurse 3 - General Ulcer D/C NN Start: 10/20/23 07:58 Freq: Status: Active Protocol: Activity Type Activity Date Activity User E-sign Co-sign Detail Recorded Client Recorded Date Recorded By Document 10/20/23 08:01 [facility] Desktop 10/20/23 08:03 BMF Edit Result 10/20/23 08:01 BMF (1) [id number] 10/21/23 07:17 PL Document 10/22/23 11:32 KW Desktop 10/22/23 11:33 KW Document 10/26/23 07:38 PL [id number] 10/27/23 07:38 PL (1) Left - Multi-Layered Wrap Application => Multi-Layer Comp - => Left ($) 10/20/23 10/22/23 10/26/23 08:01 11:32 07:38 Wound Care Center Nurse 3 #1 L Med Ankle -Primary Dressing Applied Optilok 6.5x10 Optilok 6.5x10 -Primary Dressing Covered/Secured with Dry Gauze & Dry Gauze & Roll Gauze, Roll Gauze, Secured with Secured with Tape Tape -Optilok 6.5x10 2 2 Left -Multi-Layered Wrap Application Multi-Layer Multi-Layer Multi-Layer Comp - Left ($) Comp - Left ($) Comp - Left ($) Pain Scale: 0-10 Numeric Is Patient Pain Free? Yes Yes Yes WC - Visit Discharge Discharge Condition Stable Ambulatory Status Ambulatory Transportation Private Auto Medication Reconcilliation completed & No provided to patient/care provider Clinical Summary of Care Provided Yes Assessment/Plan Assessment/Plan (1) Delayed wound healing: CODE(S): T14.8XXD - Other injury of unspecified body region, subsequent encounter (2) Non-pressure chronic ulcer of left ankle with necrosis of muscle: CODE(S): L97.323 - Non-pressure chronic ulcer of left ankle with necrosis of muscle (3) Venous insufficiency (chronic) (peripheral): CODE(S): I87.2 - Venous insufficiency (chronic) (peripheral) (4) Obesity: CODE(S): E66.9 - Obesity, unspecified (5) Iron deficiency anemia: CODE(S): D50.9 - Iron deficiency anemia, unspecified PLAN: Plan Patient seen and evaluated Left lower extremity: There is ulceration noted to the medial aspect of the leftlower extremity/ankle with healthy granular tissue with some serosanguineous drainage. Ulceration is noted to be overlying the neurovascular bundle. Negative Stemmer sign left foot. There is evidence of stasis dermatitis with hyperpigmentation/hemosiderin staining of the left lower extremity. Ulceration underwent debridement as noted in the clinical panel above. Ulceration measures 2.0 cm x 2.3 cm x 0.2 cm. No signs of infection. Skin maceration decreased with less drainage and wound is granulating in well. EpiFix graft #6 applied to wound bed at previous visit. Due to cultures of woundand urine with PsA we will refrain from application of graft today. Carlos Ain's wet-to-dry dressing applied with double Tubigrip compression stocking. He was educated to change dressing daily. We will look to resume applications of grafts at next visit. Ulceration continues to demonstrate reduction in size versus previous visits. Overall tissue much improved. Discussed if he soaks through dressing to call and return for new dressing/compression wrap application. He had another bout of increased drainage with some localized rubor secondary tomacerated tissue. Patient is no longer elevating legs and increasing work shifts over the weekend of greater than 12 hours at a time on his feet. Discussion was had with him that he must continue elevating legs and limit time on feet to aid in wound healing. Cultures were obtained 10/22/2023 and positive wound and urine culture with PsA. Wound does demonstrate reduction in size however drainage due to previous drainage he was started on oral antibiotic. RxAugmentin 875 mg twice daily x 14 days. Stop date 11/05/2023. I discussed continued elevation of the lower extremity at all times of rest to aid in edema control. I discussed once ulceration is healed he is to return to a prescription based compression stocking. Discussed updating stockings every 6 to 9 months to ensure proper uniform compression to treat his chronic venous insufficiency and to reduce recidivism of wound. LEAS performed 09/02/23 demonstrates right RONEN 1.31, normal. TBI and Doppler/PVR waveforms of right leg normal at rest; left RONEN 1.38, normal. TBI and Doppler/PVR waveforms of the left leg normal at rest. Venous studies performed 09/02/2023 demonstrates no evidence of bilateral lower extremity DVT. Bilateral great saphenous veins appear patent and compressible segmentally. Positive for reflux right popliteal vein, great saphenous vein in. Positive for reflux left popliteal vein, saphenofemoral junction. Discussed importance of serial debridement to aid in wound healing. He was approved for application of EpiFix advanced wound product, we will continue applications. Discussed proper diet to increase protein intake to aid in wound healing. Recommended Vladimir supplementation. Discussed reducing foods with salty content to aid in edema control. Discussed avoidance of prolonged standing or legs dangling over side of chair/bed. Discussed with patient the depth of the ulcerative site and close proximity to the neurovascular bundle. Discussed with him signs and symptoms of infection. Discussed if he notices redness about the ulcerative site moving up the leg, purulent drainage from the wound site, foul increasing odor from the wound, or if he experiences fever greater than 101 degree, nausea, vomiting, chills/rigor,that these are signs of progressing infection and he should report to the ED to receive IV antibiotics. Patient and voiced understanding of this. The following work up and care recommendations were made: Dressing: Dakin's wet to dry and double Tubigrip compression. At next visit will reapply EpiFix, Adaptic touch, Steri-Strips, Suprasorb, 3M compression wrapleft lower extremity. Wash: Wash with soap and water Tissue growth optimization: Dakin's Offload: To ensure no pressure to the medial ankle/hindfoot Vascular: DP and PT pulses palpable with adequate capillary fill to digits. Edema: Discussed elevation of lower extremities at times of rest. 3M compression wrap placed. Infection: No signs of infection. Rx: Augmentin 875mg BID x 14 days, stop date 11/05/23. He was instructed to take oral antibiotic to completion. Pain: May take Tylenol extra strength for discomfort Host factors: Chronic venous insufficiency I answered all the patient's questions. To return to the wound healing center in 1 week or call sooner if the patient has any questions or concerns. 10/29/23 1029 <Electronically signed by Merrill Burns DPM> Cosigner Signature (if applicable): CC: ~ Signed [facility] Work Phone: 1(194) 673-492101-04-2024 Progress note Author Merrill Burns [facility] October 22, 2023 12:58pm Note Date/Time October 22, 2023 12 :56pm [facility] [address] [place] [address] Progress Note - Wound Care 10/22/23 1243 MR#: [id number] Acct: [id number] Name: WELLINGTON GONZALEZ Rep #:[id number] : 1945 78 From: Merrill machado DPM PCP: Dr. Randa Joseph, DO Status:REG RCR Location: History of Present Illness Date of Service: 10/22/23 Chief Complaint: Left medial ankle wound History of Wound: Patient is a 78-year-old male who presents to the wound care center with recurring left lower extremity medial ankle wound. He has PMHx of recurring left lower extremity ulceration secondary to chronic venous insufficiency, history of DVT, obesity, JOSHUA, iron deficient anemia, delayed wound healing, and asthma. He states that he does have compression stockings but his stockings are old. States that approximately 2-1/2 months ago this ulceration did open again to the medial ankle and has been unable to progress inhealing. He was placed on oral antibiotics, cephalexin, and is finishing antibiotic course. Has been applying topical ointments to the wound daily with dressing changes. He did follow with his primary care who did refer him to the wound center due to nonhealing ulceration. He denies trauma to the site. States that the specific site is recurrent with breakdown of skin. Denies N/V/F/chills. No further complaints. 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 Patient states that the compression wrapping continues to make his legs feel better. He states he is also having less pain around the wound site. He states drainage hasbecome more lately due to working long hours on feet. He reports standing/walking for more than 12 hours a day without elevating legs as he worksthrough the weekend. He returned to the wound center on Thursday for dressing change and dressings reported to be soaked despite use of Fibracol applied in dressing. Reports less drainage from Thursday to today due to decreased time on feet. Denies constitutional symptoms. Denies further complaints. Objective Data Objective Data Vital Signs: Vital Signs Temp Pulse Resp BP O2 Del Method 96.0 F L 101 H 18 110/81 H Room Air 10/22/23 10:55 10/22/23 10:55 10/22/23 10:55 10/22/23 10:55 10/22/23 10:55 Oxygen Delivery Method Room Air Weight: 99.159 kg Body Mass Index (BMI) 28.8 Physical Exam Const alert, oriented x3 and no apparent distress General Appearance: cooperative HEENT normocephalic Eyes Eyes Narrative: Wears glasses General Eye: normal appearance of both eyes Neck General: normal visual inspection Lymph Lymphatic: no lymphadenopathy noted and no lymphedema noted Resp normal respiratory effort Cardio regular rate and regular rhythm Extremity normal capillary refill, no joint enlargement, no calf tenderness and no pedal edema Extremity Narrative: Vascular: DP and PT pulses weakly palpable. Capillary fill time to the digits is 5 seconds. Normal temperature gradient. There is absent hair growth to the digits noted. Dermatological: There is ulceration noted to the medial aspect of the left lowerextremity/ankle with healthy granular layer and serosanguineous drainage. Ulceration is noted to be overlying the neurovascular bundle. Negative Stemmer sign left foot. There is evidence of stasis dermatitis with hyperpigmentation/hemosiderin staining of the left lower extremity. Musculoskeletal: Muscle strength 5 of 5 age-appropriate. Skin no rashes or lesions noted, skin turgor normal and no jaundice Neuro moves all extremities Debridement Note Debridement Note Wound debrided: Left medial ankle Laterality: Left Wound Grade/Stage: Cisneros stage II Type of Debridement: Excisional debridement Anesthesia Used: 5% Lidocaine Gel Depth: Down to and including healthy tissue and in the subcutaneous layer Percentage of wound debrided: 100 Instrument Used: 5mm curette Tissue Removed: Fibrous, devitalized subcutaneous, biofilm, slough Severity: Fat Layer Exposed Amount of bleeding with debridement: Mild Bleeding Controlled with: Compression and gauze Patient tolerated procedure: Patient tolerated procedure well Post-Debridement Measurements and Additional Note: Post-Debridement Measurements/Treatment - Nurse 1 - General Ulcer Assessment Start: 10/20/23 07:58 Freq: Status: Active Protocol: ANAYA Activity Type Activity Date Activity User E-sign Co-sign Detail Recorded Client Recorded Date Recorded By Document 10/20/23 07:58 [facility] Desktop 10/20/23 08:00 [facility] Document 10/22/23 10:55 Laptop 10/22/23 11:00 10/20/23 10/22/23 07:58 10:55 - Today's Visit Information Type of service Nurse-only Follow-up Visit Visit (Physician/PROVIDER ENROLLMENT SPECIALIST ) Arrival Mode Ambulatory Ambulatory Patient Identification Verified (Name & Yes Yes ) Height and Weight Body Mass Index (BMI) 28.8 28.8 BMI Classification Overweight Overweight Vital Signs Temperature (97.8 F-99.1 F) 98.1 F 96.0 F L Temperature Source Temporal Temporal Pulse Rate (60-100) 72 101 H Pulse Location Monitor Monitor Respiratory Rate (12-18) 18 18 Respiratory rate source Observation Observation Oxygen Delivery Method Room Air Room Air Blood Pressure (90/60-120/80) 164/59 H 110/81 H Blood Pressure Mean (mm Hg) 94 90 Source Monitor Monitor Position Semi-Fowlers Semi-Fowlers Blood Pressure Location Left Arm Left Arm History Since Last Visit- (Skip if this is Patient's initial visit) Have you changed medications since your No No last visit? Any new allergies or adverse reactions No No Had a fall/change in ADL's that may No No increase risk of falls Signs or symptoms of abuse and/or No No neglect since last visit Have you been in the hospital since your No No last visit? Has dressing in place as prescribed Yes Yes Has compression in place as prescribed Yes Yes Has offloadiing in place as prescribed No No Experienced any changes in pain level or No No management Left Footwear Regular Shoe Regular Shoe Right Footwear Regular Shoe Regular Shoe Pain Scale: 0-10 Numeric Is Patient Pain Free? Yes Yes - Nurse 1 - General Ulcer Measurement Start: 10/20/23 07:58 Freq: Status: Active Protocol: Activity Type Activity Date Activity User E-sign Co-sign Detail Recorded Client Recorded Date Recorded By Document 10/20/23 08:00 [facility] Desktop 10/20/23 08:01 [facility] Document 10/22/23 10:55 Laptop 10/22/23 11:00 JF 10/20/23 10/22/23 08:00 10:55 Wound Center Nurse 1 #1 L Med Ankle -Current Size (cm) - Length 2.3 -Current Size (cm) - Width 2.8 -Current Size (cm) - Depth 0.1 -Total Square Cm 6.44 -Exudate Amt Medium -Exudate Type Serosanguineous -Wound Margin Distinct, Outline Attached -Granulation Amt Large (67-100%) -Granulation Quality Red -Texture (Megan-wound Skin Appearance) Assessed -Moisture (Megan-wound Skin Appearance) Assessed -Color (Megan-wound Skin Appearance) Assessed -Temperature (Megan-wound Skin No Abnormality Appearance) (Pt Warm) -Ulcer Cleansing Soap and Water -Anesthetic Used 5% Lidocaine Gel Right Calf (cm) 38.2 Right Ankle (cm) 23.6 Left Calf (cm) 32.7 Left Ankle (cm) 22.6 WC - Nurse 2 - General Ulcer CM Notes Start: 10/20/23 07:58 Freq: Status: Active Protocol: Activity Type Activity Date Activity User E-sign Co-sign Detail Recorded Client Recorded Date Recorded By Document 10/22/23 12:24 PL [id number] 10/22/23 12:26 PL 10/22/23 12:24 Wound Center Nurse 2 #1 L Med Ankle -Time 11:13 -Correct Patient Yes -Correct Side, Site, Position Yes -Correct Procedure Yes -Procedure Performed Yes -Type of Procedure Debridement -Clinical Debridement Subcutaneous -Tissue Removed Subcutaneous -Post Debridement (cm) - Length 2.5 -Post Debridement (cm) - Width 2.5 -Post Debridement (cm) - Depth 0.1 -Total Square (Post) (cm) 6.25 -Area of Debridement (cm) - Length 2.5 -Area of Debridement (cm) - Width 2.5 -Total Square (Area) (cm) 6.25 -Tunneling No -Undermining/Tunneling No -Circular Undermining No -Wound/Ulcer Outcome Not Healed -Ulcer Cleansing Rinsed/ Irrigated with Saline -Foul Odor after Cleansing No -Bioengineered Tissue Yes -Type of Bioengineered Tissue Epifix Mesh -Expiration Date 06/19/28 -Product Lot Number [id number] -Percent Used 100 -Bleeding Controlled with Pressure -Treatment Response Procedure Tolerated Well -Debridement - Subq, 1st 20sq cm No -Apply Skin Sub - 1st 25 sq cm - Legs 1 -Epifix Mesh (per sq cm) 11 Pain Scale: 0-10 Numeric Is Patient Pain Free? Yes - Nurse 3 - General Ulcer D/C NN Start: 10/20/23 07:58 Freq: Status: Active Protocol: Activity Type Activity Date Activity User E-sign Co-sign Detail Recorded Client Recorded Date Recorded By Document 10/20/23 08:01 [facility] Desktop 10/20/23 08:03 [facility] Edit Result 10/20/23 08:01 [facility] (1) [id number] 10/21/23 07:17 PL Document 10/22/23 11:32 K[facility] Desktop 10/22/23 11:33 KW (1) Left - Multi-Layered Wrap Application => Multi-Layer Comp - => Left ($) 10/20/23 10/22/23 08:01 11:32 Wound Care Center Nurse 3 #1 L Med Ankle -Primary Dressing Applied Optilok 6.5x10 Optilok 6.5x10 -Primary Dressing Covered/Secured with Dry Gauze & Dry Gauze & Roll Gauze, Roll Gauze, Secured with Secured with Tape Tape -Optilok 6.5x10 2 2 Left -Multi-Layered Wrap Application Multi-Layer Multi-Layer Comp - Left ($) Comp - Left ($) Pain Scale: 0-10 Numeric Is Patient Pain Free? Yes Yes - Visit Discharge Discharge Condition Stable Ambulatory Status Ambulatory Transportation Private Auto Medication Reconcilliation completed & No provided to patient/care provider Clinical Summary of Care Provided Yes Assessment/Plan Assessment/Plan (1) Delayed wound healing: CODE(S): T14.8XXD - Other injury of unspecified body region, subsequent encounter (2) Non-pressure chronic ulcer of left ankle with necrosis of muscle: CODE(S): L97.323 - Non-pressure chronic ulcer of left ankle with necrosis of muscle (3) Venous insufficiency (chronic) (peripheral): CODE(S): I87.2 - Venous insufficiency (chronic) (peripheral) (4) Obesity: CODE(S): E66.9 - Obesity, unspecified (5) Iron deficiency anemia: CODE(S): D50.9 - Iron deficiency anemia, unspecified PLAN: Plan Patient seen and evaluated Left lower extremity: There is ulceration noted to the medial aspect of the leftlower extremity/ankle with healthy granular tissue with some serosanguineous drainage. Ulceration is noted to be overlying the neurovascular bundle. Negative Stemmer sign left foot. There is evidence of stasis dermatitis with hyperpigmentation/hemosiderin staining of the left lower extremity. Ulceration underwent debridement as noted in the clinical panel above. Ulceration measures 2.5 cm x 2.5 cm x 0.2 cm. No signs of infection. Skin maceration present but overall wound is granulating in well. EpiFix graft #6 applied to wound bed and dressed with Adaptic touch and anchored with Steri-Strips. A Suprasorb dressing was applied then followed by a 3M compression wrapapplied to the left lower extremity. Patient was instructed to not get the dressing wet. Ulceration continues to demonstrate reduction in size versus previous visits. Discussed if he soaks through dressing to call and return for new dressing/compression wrap application. Due to increased drainage from graft he was started on oral Augmentin 875mg BID x 14 days as precaution. He has finishedoral abx to completion 3 weeks ago. He has however had another bout of increased drainage with some localized rubor secondary to macerated tissue. Patient is no longer elevating legs and increasing work shifts over the weekend of greater than 12 hours at a time on his feet. Discussion was had with him that he must continue elevating legs and limit time on feet to aid in wound healing. Cultures were obtained today 10/22/2023, awaiting results. Wound does demonstrate slight reduction in size however drainage is increasing from previous visit and thus will start oral antibiotic. Rx Augmentin 875 mg twice daily x 14 days. Stop date 11/05/2023. I discussed continued elevation of the lower extremity at all times of rest to aid in edema control. I discussed once ulceration is healed he is to return to a prescription based compression stocking. Discussed updating stockings every 6 to 9 months to ensure proper uniform compression to treat his chronic venous insufficiency and to reduce recidivism of wound. LEAS performed 09/02/23 demonstrates right RONEN 1.31, normal. TBI and Doppler/PVR waveforms of right leg normal at rest; left RONEN 1.38, normal. TBI and Doppler/PVR waveforms of the left leg normal at rest. Venous studies performed 09/02/2023 demonstrates no evidence of bilateral lower extremity DVT. Bilateral great saphenous veins appear patent and compressible segmentally. Positive for reflux right popliteal vein, great saphenous vein in. Positive for reflux left popliteal vein, saphenofemoral junction. Discussed importance of serial debridement to aid in wound healing. He was approved for application of EpiFix advanced wound product, we will continue applications. Discussed proper diet to increase protein intake to aid in wound healing. Recommended Vladimir supplementation. Discussed reducing foods with salty content to aid in edema control. Discussed avoidance of prolonged standing or legs dangling over side of chair/bed. Discussed with patient the depth of the ulcerative site and close proximity to the neurovascular bundle. Discussed with him signs and symptoms of infection. Discussed if he notices redness about the ulcerative site moving up the leg, purulent drainage from the wound site, foul increasing odor from the wound, or if he experiences fever greater than 101 degree, nausea, vomiting, chills/rigor,that these are signs of progressing infection and he should report to the ED to receive IV antibiotics. Patient and voiced understanding of this. The following work up and care recommendations were made: Dressing: EpiFix, Adaptic touch, Steri-Strips, Suprasorb, 3M compression wrap left lower extremity. Wash: Do not get wet Tissue growth optimization: EpiFix Offload: To ensure no pressure to the medial ankle/hindfoot Vascular: DP and PT pulses palpable with adequate capillary fill to digits. Edema: Discussed elevation of lower extremities at times of rest. 3M compression wrap placed. Infection: No signs of infection. Rx: Augmentin 875mg BID x 14 days, stop date 11/05/23. He was instructed to take oral antibiotic to completion. Pain: May take Tylenol extra strength for discomfort Host factors: Chronic venous insufficiency He will return for dressing change on 10/26/2023 and then will be seen again , 10/29/2023. I answered all the patient's questions. To return to the wound healing center in 1 week or call sooner if the patient has any questions or concerns. 10/22/23 1258 <Electronically signed by Merrill Burns DPM> Cosigner Signature (if applicable): CC: ~ Signed [facility] Work Phone: 1(480) 148-833212-28-2023 Progress note Author Merrill Burns [facility] October 15, 2023 1:11pm Note Date/Time October 15, 2023 1:11pm [facility] [address] [place] [address] Progress Note - Wound Care 10/15/23 1307 MR#: [id number] Acct: [id number] Name: WELLINGTON GONZALEZ Rep #:[id number] : 1945 78 From: Merrill machado DPM PCP: Dr. Randa Joseph, DO Status:REG RCR Location: History of Present Illness Date of Service: 10/15/23 Chief Complaint: Left medial ankle wound History of Wound: Patient is a 78-year-old male who presents to the wound care center with recurring left lower extremity medial ankle wound. He has PMHx of recurring left lower extremity ulceration secondary to chronic venous insufficiency, history of DVT, obesity, JOSHUA, iron deficient anemia, delayed wound healing, and asthma. He states that he does have compression stockings but his stockings are old. States that approximately 2-1/2 months ago this ulceration did open again to the medial ankle and has been unable to progress inhealing. He was placed on oral antibiotics, cephalexin, and is finishing antibiotic course. Has been applying topical ointments to the wound daily with dressing changes. He did follow with his primary care who did refer him to the wound center due to nonhealing ulceration. He denies trauma to the site. States that the specific site is recurrent with breakdown of skin. Denies N/V/F/chills. No further complaints. 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 Patient states that the compression wrapping continues to make his legs feel better. He states he is also having less pain around the wound site. He states drainage hasbecome significantly less and he can tell swelling continues to decreased. Denies constitutional symptoms. Denies further complaints. Objective Data Objective Data Vital Signs: Vital Signs Temp Pulse Resp BP O2 Del Method 96.2 F L 72 18 149/78 H Room Air 10/15/23 09:25 10/15/23 09:25 10/15/23 09:25 10/15/23 09:25 10/15/23 09:25 Oxygen Delivery Method Room Air Weight: 99.159 kg Body Mass Index (BMI) 28.8 Physical Exam Const alert, oriented x3 and no apparent distress General Appearance: cooperative HEENT normocephalic Eyes Eyes Narrative: Wears glasses General Eye: normal appearance of both eyes Neck General: normal visual inspection Lymph Lymphatic: no lymphadenopathy noted and no lymphedema noted Resp normal respiratory effort Cardio regular rate and regular rhythm Extremity normal capillary refill, no joint enlargement and no pedal edema Extremity Narrative: Vascular: DP and PT pulses weakly palpable. Capillary fill time to the digits is 5 seconds. Normal temperature gradient. There is absent hair growth to the digits noted. Dermatological: There is ulceration noted to the medial aspect of the left lowerextremity/ankle with mixed fibrotic/granular tissue with serosanguineous drainage. Ulceration is noted to be overlying the neurovascular bundle. Negative Stemmer sign left foot. There is evidence of stasis dermatitis with hyperpigmentation/hemosiderin staining of the left lower extremity. Musculoskeletal: Muscle strength 5 of 5 age-appropriate. Skin no rashes or lesions noted, skin turgor normal and no jaundice General Skin Exam: venous stasis and dermatitis Neuro moves all extremities Debridement Note Debridement Note Wound debrided: Left medial ankle Laterality: Left Wound Grade/Stage: Cisneros stage II Type of Debridement: Excisional debridement Anesthesia Used: 5% Lidocaine Gel Depth: Down to and including healthy tissue and in the subcutaneous layer Percentage of wound debrided: 100 Instrument Used: 5mm curette Tissue Removed: Fibrous, devitalized subcutaneous, biofilm, slough Severity: Fat Layer Exposed Amount of bleeding with debridement: Mild Bleeding Controlled with: Compression and gauze Patient tolerated procedure: Patient tolerated procedure well Post-Debridement Measurements and Additional Note: Post-Debridement Measurements/Treatment WC - Nurse 1 - General Ulcer Assessment Start: 09/22/23 13:59 Freq: Status: Active Protocol: WC.LOWEXT Activity Type Activity Date Activity User E-sign Co-sign Detail Recorded Client Recorded Date Recorded By Document 09/24/23 11:14 KW Desktop 09/24/23 11:23 KW Document 09/29/23 11:20 RB [id number] 09/29/23 11:24 RB Document 10/01/23 09:16 KW Desktop 10/01/23 09:22 KW Document 10/06/23 11:08 KW Desktop 10/06/23 11:10 KW Document 10/08/23 12:54 KW Desktop 10/08/23 13:04 KW Document 10/13/23 11:15 KW Desktop 10/13/23 11:20 KW Document 10/15/23 09:25 KW Desktop 10/15/23 09:30 KW 09/24/23 09/29/23 10/01/23 11:14 11:20 09:16 WC - Today's Visit Information Type of service Follow-up Visit Nurse-only Follow-up Visit (Physician/PROVIDER ENROLLMENT SPECIALIST Visit (Physician/PROVIDER ENROLLMENT SPECIALIST ) ) Arrival Mode Ambulatory Ambulatory Ambulatory Transfer Assistance None Accompanied by byrd Patient Identification Verified (Name & Yes Yes Yes ) Patient Requires Transmission-Based No Precautions Height and Weight Body Mass Index (BMI) 28.8 28.8 28.8 BMI Classification Overweight Overweight Overweight Vital Signs Temperature (97.8 F-99.1 F) 96.7 F L 96 F L 97.9 F Temperature Source Temporal Temporal Temporal Pulse Rate (60-100) 67 70 69 Pulse Location Monitor Monitor Monitor Respiratory Rate (12-18) 18 18 18 Respiratory rate source Observation Observation Observation Oxygen Delivery Method Room Air Room Air Blood Pressure (90/60-120/80) 141/76 H 123/59 H 133/83 H Blood Pressure Mean (mm Hg) 97 80 99 Source Monitor Monitor Monitor Position Semi-Fowlers Semi-Fowlers Semi-Fowlers Blood Pressure Location Left Arm Left Arm Left Arm History Since Last Visit- (Skip if this is Patient's initial visit) Have you changed medications since your No No No last visit? Any new allergies or adverse reactions No No No Had a fall/change in ADL's that may No No No increase risk of falls Signs or symptoms of abuse and/or No No No neglect since last visit Have you been in the hospital since your No No No last visit? Has dressing in place as prescribed Yes Yes Yes Has compression in place as prescribed Yes Yes Yes Has offloadiing in place as prescribed No No No Experienced any changes in pain level or No No No management Left Footwear Regular Shoe Regular Shoe Right Footwear Regular Shoe Regular Shoe Pain Scale: 0-10 Numeric Is Patient Pain Free? Yes Yes Yes 10/06/23 10/08/23 10/13/23 11:08 12:54 11:15 WC - Today's Visit Information Type of service Nurse-only Nurse-only Nurse-only Visit Visit Visit Arrival Mode Ambulatory Ambulatory Ambulatory Transfer Assistance Accompanied by Patient Identification Verified (Name & Yes Yes Yes ) Patient Requires Transmission-Based Precautions Height and Weight Body Mass Index (BMI) 28.8 28.8 28.8 BMI Classification Overweight Overweight Overweight Vital Signs Temperature (97.8 F-99.1 F) 96.0 F L 97.3 F L Temperature Source Temporal Temporal Pulse Rate (60-100) 72 64 72 Pulse Location Monitor Monitor Monitor Respiratory Rate (12-18) 18 18 18 Respiratory rate source Observation Observation Observation Oxygen Delivery Method Room Air Room Air Room Air Blood Pressure (90/60-120/80) 136/60 H 155/71 H 129/62 H Blood Pressure Mean (mm Hg) 85 99 84 Source Monitor Monitor Monitor Position Semi-Fowlers Semi-Fowlers Semi-Fowlers Blood Pressure Location Left Arm Left Arm Left Arm History Since Last Visit- (Skip if this is Patient's initial visit) Have you changed medications since your No No No last visit? Any new allergies or adverse reactions No No No Had a fall/change in ADL's that may No No No increase risk of falls Signs or symptoms of abuse and/or No No No neglect since last visit Have you been in the hospital since your No No No last visit? Has dressing in place as prescribed Yes Yes Yes Has compression in place as prescribed Yes Yes Yes Has offloadiing in place as prescribed No No N/A Experienced any changes in pain level or No No No management Left Footwear Regular Shoe Regular Shoe Regular Shoe Right Footwear Regular Shoe Regular Shoe Regular Shoe Pain Scale: 0-10 Numeric Is Patient Pain Free? Yes Yes Yes 10/15/23 09:25 WC - Today's Visit Information Type of service Follow-up Visit (Physician/PROVIDER ENROLLMENT SPECIALIST ) Arrival Mode Ambulatory Transfer Assistance Accompanied by Patient Identification Verified (Name & Yes ) Patient Requires Transmission-Based Precautions Height and Weight Body Mass Index (BMI) 28.8 BMI Classification Overweight Vital Signs Temperature (97.8 F-99.1 F) 96.2 F L Temperature Source Temporal Pulse Rate (60-100) 72 Pulse Location Monitor Respiratory Rate (12-18) 18 Respiratory rate source Observation Oxygen Delivery Method Room Air Blood Pressure (90/60-120/80) 149/78 H Blood Pressure Mean (mm Hg) 101 Source Monitor Position Semi-Fowlers Blood Pressure Location Right Arm History Since Last Visit- (Skip if this is Patient's initial visit) Have you changed medications since your No last visit? Any new allergies or adverse reactions No Had a fall/change in ADL's that may No increase risk of falls Signs or symptoms of abuse and/or No neglect since last visit Have you been in the hospital since your No last visit? Has dressing in place as prescribed Yes Has compression in place as prescribed Yes Has offloadiing in place as prescribed No Experienced any changes in pain level or No management Left Footwear Regular Shoe Right Footwear Regular Shoe Pain Scale: 0-10 Numeric Is Patient Pain Free? Yes WC - Nurse 1 - General Ulcer Measurement Start: 09/22/23 13:59 Freq: Status: Active Protocol: Activity Type Activity Date Activity User E-sign Co-sign Detail Recorded Client Recorded Date Recorded By Document 09/24/23 11:14 KW Desktop 09/24/23 11:23 KW Edit Result 09/24/23 11:14 KW (1) Desktop 09/24/23 11:24 KW Document 09/29/23 11:20 RB [id number] 09/29/23 11:24 RB Document 10/01/23 09:16 KW Desktop 10/01/23 09:22 KW Document 10/06/23 11:20 KW Desktop 10/06/23 11:21 KW Document 10/15/23 09:25 KW Desktop 10/15/23 09:30 KW (1) #1 L Med Ankle - Current Size (cm) - Length => 3 - Current Size (cm) - Width => 2.5 - Current Size (cm) - Depth => 0.3 - Total Square Cm => 7.5 09/24/23 09/29/23 12 11:14 11:20 09:16 Wound Center Nurse 1 #1 L Med Ankle -Current Size (cm) - Length 3 2.5 -Current Size (cm) - Width 2.5 3.2 -Current Size (cm) - Depth 0.3 0.3 -Total Square Cm 7.5 8.00 -Exudate Amt Medium -Exudate Type Serosanguineous Serosanguineous -Wound Margin Thickened Distinct, Outline Attached -Granulation Amt Medium (34-66%) Large (67-100%) -Granulation Quality Brea Red -Necrosis Amt Large (67-100%) Small (1-33%) -Necrotic Tissue Type Adherent Slough Adherent Slough -Texture (Megan-wound Skin Appearance) Assessed Assessed -Moisture (Megan-wound Skin Appearance) Assessed, Assessed Maceration -Color (Megan-wound Skin Appearance) Assessed, Assessed Erythema -Temperature (Megan-wound Skin No Abnormality Appearance) (Pt Warm) -Ulcer Cleansing Soap and Water Soap and Water -Anesthetic Used 5% Lidocaine 5% Lidocaine Gel Gel Lower Limb Edema Present Yes Left Calf (cm) 39.0 37 Left Ankle (cm) 23.4 23 Left Foot (cm) 10/06/23 10/15/23 11:20 09:25 Wound Center Nurse 1 #1 L Med Ankle -Current Size (cm) - Length 3.8 -Current Size (cm) - Width 2.4 -Current Size (cm) - Depth 0.1 -Total Square Cm 9.12 -Exudate Amt Medium -Exudate Type Serosanguineous -Wound Margin Thickened -Granulation Amt Large (67-100%) -Granulation Quality Red -Necrosis Amt -Necrotic Tissue Type -Texture (Megan-wound Skin Appearance) Assessed -Moisture (Megan-wound Skin Appearance) Assessed -Color (Megan-wound Skin Appearance) Assessed, Erythema -Temperature (Megan-wound Skin No Abnormality Appearance) (Pt Warm) -Ulcer Cleansing Soap and Water -Anesthetic Used 5% Lidocaine Gel Lower Limb Edema Present Left Calf (cm) 35.8 Left Ankle (cm) 44.5 24.6 Left Foot (cm) 23.4 WC - Nurse 2 - General Ulcer CM Notes Start: 09/22/23 13:59 Freq: Status: Active Protocol: Activity Type Activity Date Activity User E-sign Co-sign Detail Recorded Client Recorded Date Recorded By Document 09/24/23 12:40 PL [id number] 09/24/23 12:41 PL Document 10/01/23 16:44 PL [id number] 10/01/23 16:46 PL Edit Result 10/01/23 16:44 PL (1) [id number] 10/02/23 07:21 PL Document 10/15/23 12:36 PL [id number] 10/15/23 12:38 PL (1) #1 L Med Ankle - Dermabond => 1 09/24/23 10/01/23 10/15/23 12:40 16:44 12:36 Wound Center Nurse 2 #1 L Med Ankle -Time 11:46 09:34 09:50 -Correct Patient Yes Yes Yes -Correct Side, Site, Position Yes Yes Yes -Correct Procedure Yes Yes Yes -Procedure Performed Yes Yes Yes -Type of Procedure Debridement Debridement Debridement -Clinical Debridement Subcutaneous Subcutaneous Subcutaneous -Tissue Removed Subcutaneous Subcutaneous Subcutaneous -Post Debridement (cm) - Length 2.8 2.4 2.5 -Post Debridement (cm) - Width 3.4 3.0 2.6 -Post Debridement (cm) - Depth 0.4 0.3 0.2 -Total Square (Post) (cm) 9.52 7.20 6.50 -Area of Debridement (cm) - Length 2.8 2.4 2.5 -Area of Debridement (cm) - Width 3.4 3.0 2.6 -Total Square (Area) (cm) 9.52 7.20 6.50 -Tunneling No No No -Undermining/Tunneling No No No -Circular Undermining No No No -Wound/Ulcer Outcome Not Healed Not Healed Not Healed -Ulcer Cleansing Rinsed/ Rinsed/ Rinsed/ Irrigated with Irrigated with Irrigated with Saline Saline Saline -Foul Odor after Cleansing No No No -Bioengineered Tissue Yes Yes Yes -Type of Bioengineered Tissue Epifix Mesh Epifix Mesh Epifix Mesh -Expiration Date 05/19/28 05/19/28 06/19/28 -Product Lot Number [id number]. [id number] -Percent Used 100 100 100 -Bleeding Controlled with Pressure Pressure Pressure -Treatment Response Procedure Procedure Procedure Tolerated Well Tolerated Well Tolerated Well -Debridement - Subq, 1st 20sq cm No No No -Apply Skin Sub - 1st 25 sq cm - Legs 1 1 1 -Dermabond 1 -Epifix Mesh (per sq cm) 11 11 11 Pain Scale: 0-10 Numeric Is Patient Pain Free? Yes Yes Yes WC - Nurse 3 - General Ulcer D/C NN Start: 09/22/23 13:59 Freq: Status: Active Protocol: Activity Type Activity Date Activity User E-sign Co-sign Detail Recorded Client Recorded Date Recorded By Document 09/22/23 13:59 PL [id number] 09/22/23 14:00 PL Document 09/29/23 11:20 RB [id number] 09/29/23 11:24 RB Document 10/01/23 10:01 KW Desktop 10/01/23 10:01 KW Document 10/06/23 11:10 KW Desktop 10/06/23 11:10 KW Document 10/08/23 13:04 KW Desktop 10/08/23 13:04 KW Document 10/13/23 11:15 KW Desktop 10/13/23 11:20 KW Document 10/15/23 10:18 KW Desktop 10/15/23 10:19 KW 09/22/23 09/29/23 10/01/23 13:59 11:20 10:01 Wound Care Center Nurse 3 #1 L Med Ankle -Primary Dressing Applied Optilok 6.5x10 Optilok 6.5x10 -Primary Dressing Covered/Secured with Dry Gauze & Roll Gauze, Secured with Tape -Optilok 6.5x10 1 2 Left -Multi-Layered Wrap Application Multi-Layer Multi-Layer Multi-Layer Comp - Left ($) Comp - Left ($) Comp - Left ($) Treatment Response Procedure Tolerated Well Vital Signs Temperature (97.8 F-99.1 F) 96 F L Temperature Source Temporal Pulse Rate (60-100) 70 Pulse Location Monitor Respiratory Rate (12-18) 18 Respiratory rate source Observation Oxygen Delivery Method Blood Pressure (90/60-120/80) 123/59 H Blood Pressure Mean (mm Hg) 80 Source Monitor Position Semi-Fowlers Blood Pressure Location Left Arm Pain Scale: 0-10 Numeric Is Patient Pain Free? Yes Yes Yes WC - Visit Discharge Discharge Condition Stable Ambulatory Status Ambulatory Transportation Private Auto Medication Reconcilliation completed & No provided to patient/care provider Clinical Summary of Care Provided Yes 10/06/23 10/08/23 10/13/23 11:10 13:04 11:15 Wound Care Center Nurse 3 #1 L Med Ankle -Primary Dressing Applied Optilok 6.5x10 Optilok 6.5x10 -Primary Dressing Covered/Secured with Dry Gauze & Dry Gauze & Roll Gauze, Roll Gauze, Secured with Secured with Tape Tape -Optilok 6.5x10 1 2 Left -Multi-Layered Wrap Application Multi-Layer Multi-Layer Multi-Layer Comp - Left ($) Comp - Left ($) Comp - Left ($) Treatment Response Vital Signs Temperature (97.8 F-99.1 F) 97.3 F L Temperature Source Temporal Pulse Rate (60-100) 72 Pulse Location Monitor Respiratory Rate (12-18) 18 Respiratory rate source Observation Oxygen Delivery Method Room Air Blood Pressure (90/60-120/80) 129/62 H Blood Pressure Mean (mm Hg) 84 Source Monitor Position Semi-Fowlers Blood Pressure Location Left Arm Pain Scale: 0-10 Numeric Is Patient Pain Free? Yes Yes Yes WC - Visit Discharge Discharge Condition Stable Stable Ambulatory Status Ambulatory Ambulatory Transportation Private Auto Private Auto Medication Reconcilliation completed & No No provided to patient/care provider Clinical Summary of Care Provided Yes Yes 10/15/23 10:18 Wound Care Center Nurse 3 #1 L Med Ankle -Primary Dressing Applied Optilok 6.5x10 -Primary Dressing Covered/Secured with Dry Gauze & Roll Gauze, Secured with Tape -Optilok 6.5x10 2 Left -Multi-Layered Wrap Application Multi-Layer Comp - Left ($) Treatment Response Vital Signs Temperature (97.8 F-99.1 F) Temperature Source Pulse Rate (60-100) Pulse Location Respiratory Rate (12-18) Respiratory rate source Oxygen Delivery Method Blood Pressure (90/60-120/80) Blood Pressure Mean (mm Hg) Source Position Blood Pressure Location Pain Scale: 0-10 Numeric Is Patient Pain Free? Yes WC - Visit Discharge Discharge Condition Stable Ambulatory Status Ambulatory Transportation Private Auto Medication Reconcilliation completed & No provided to patient/care provider Clinical Summary of Care Provided Yes Assessment/Plan Assessment/Plan (1) Non-pressure chronic ulcer of left ankle with necrosis of muscle: CODE(S): L97.323 - Non-pressure chronic ulcer of left ankle with necrosis of muscle (2) Venous insufficiency (chronic) (peripheral): CODE(S): I87.2 - Venous insufficiency (chronic) (peripheral) (3) Delayed wound healing: CODE(S): T14.8XXD - Other injury of unspecified body region, subsequent encounter (4) Iron deficiency anemia: CODE(S): D50.9 - Iron deficiency anemia, unspecified (5) Obesity: CODE(S): E66.9 - Obesity, unspecified PLAN: Plan Patient seen and evaluated Left lower extremity: There is ulceration noted to the medial aspect of the leftlower extremity/ankle with mixed fibrogranular tissue with some serosanguineous drainage. Ulceration is noted to be overlying the neurovascular bundle. Negative Stemmer sign left foot. There is evidence of stasis dermatitis with hyperpigmentation/hemosiderin staining of the left lower extremity. Ulceration underwent debridement as noted in the clinical panel above. Ulceration measures 2.5 cm x 2.6 cm x 0.2 cm. No signs of infection. Skin maceration present but overall wound is granulating in well. EpiFix graft #5 applied to wound bed and dressed with Adaptic touch and anchored with Steri-Strips. A Suprasorb dressing was applied then followed by a 3M compression wrapapplied to the left lower extremity. Patient was instructed to not get the dressing wet. Ulceration continues to demonstrate reduction in size versus previous visits. Discussed if he soaks through dressing to call and return for new dressing/compression wrap application. Due to increased drainage from graft he was started on oral Augmentin 875mg BID x 14 days as precaution. He has finishedoral abx to completion. I discussed continued elevation of the lower extremity at all times of rest to aid in edema control. I discussed once ulceration is healed he is to return to a prescription based compression stocking. Discussed updating stockings every 6 to 9 months to ensure proper uniform compression to treat his chronic venous insufficiency and to reduce recidivism of wound. LEAS performed 09/02/23 demonstrates right RONEN 1.31, normal. TBI and Doppler/PVR waveforms of right leg normal at rest; left RONEN 1.38, normal. TBI and Doppler/PVR waveforms of the left leg normal at rest. Venous studies performed 09/02/2023 demonstrates no evidence of bilateral lower extremity DVT. Bilateral great saphenous veins appear patent and compressible segmentally. Positive for reflux right popliteal vein, great saphenous vein in. Positive for reflux left popliteal vein, saphenofemoral junction. Discussed importance of serial debridement to aid in wound healing. He was approved for application of EpiFix advanced wound product, we will continue applications. Discussed proper diet to increase protein intake to aid in wound healing. Recommended Vladimir supplementation. Discussed reducing foods with salty content to aid in edema control. Discussed avoidance of prolonged standing or legs dangling over side of chair/bed. Discussed with patient the depth of the ulcerative site and close proximity to the neurovascular bundle. Discussed with him signs and symptoms of infection. Discussed if he notices redness about the ulcerative site moving up the leg, purulent drainage from the wound site, foul increasing odor from the wound, or if he experiences fever greater than 101 degree, nausea, vomiting, chills/rigor,that these are signs of progressing infection and he should report to the ED to receive IV antibiotics. Patient and voiced understanding of this. The following work up and care recommendations were made: Dressing: EpiFix, Adaptic touch, Steri-Strips, Suprasorb, 3M compression wrap left lower extremity. Wash: Do not get wet Tissue growth optimization: EpiFix Offload: To ensure no pressure to the medial ankle/hindfoot Vascular: DP and PT pulses palpable with adequate capillary fill to digits. Edema: Discussed elevation of lower extremities at times of rest. 3M compression wrap placed. Infection: No signs of infection. Patient currently finishing oral cephalexin. Encouraged to take antibiotic to completion. Pain: May take Tylenol extra strength for discomfort Host factors: Chronic venous insufficiency I answered all the patient's questions. To return to the wound healing center in 1 week or call sooner if the patient has any questions or concerns. 10/15/23 1311 <Electronically signed by Merrill Burns DPM> Cosigner Signature (if applicable): CC: ~ Signed [facility] Work Phone: 1([phone] 604-440612-14-2023 Progress note Author Merrill Burns [facility] October 01, 2023 9:52am Note Date/Time October 01, 2023 9:29am [facility] [address] [place] [address] Progress Note - Wound Care 10/01/23 0928 MR#: [id number] Acct: [id number] Name: WELLINGTON GONZALEZ Rep #:[id number] : 1945 78 From: Merrill machado DPM PCP: Dr. Randa Joseph, DO Status:REG RCR Location: History of Present Illness Date of Service: 10/01/23 Chief Complaint: Left medial ankle wound History of Wound: Patient is a 78-year-old male who presents to the wound care center with recurring left lower extremity medial ankle wound. He has PMHx of recurring left lower extremity ulceration secondary to chronic venous insufficiency, history of DVT, obesity, JOSHUA, iron deficient anemia, delayed wound healing, and asthma. He states that he does have compression stockings but his stockings are old. States that approximately 2-1/2 months ago this ulceration did open again to the medial ankle and has been unable to progress inhealing. He was placed on oral antibiotics, cephalexin, and is finishing antibiotic course. Has been applying topical ointments to the wound daily with dressing changes. He did follow with his primary care who did refer him to the wound center due to nonhealing ulceration. He denies trauma to the site. States that the specific site is recurrent with breakdown of skin. Denies N/V/F/chills. No further complaints. 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 Patient states that the compression wrapping continues to make his legs feel better. He states he is also having less pain. He states drainage has become significantly less and he can tell the difference in his swelling which has decreased. Denies constitutional symptoms. Denies further complaints. Objective Data Objective Data Vital Signs: Vital Signs Temp Pulse Resp BP O2 Del Method 97.9 F 69 18 133/83 H Room Air 10/01/23 09:16 10/01/23 09:16 10/01/23 09:16 10/01/23 09:16 10/01/23 09:16 Oxygen Delivery Method Room Air Weight: 99.159 kg Body Mass Index (BMI) 28.8 Physical Exam Const alert, oriented x3 and no apparent distress General Appearance: cooperative HEENT normocephalic Eyes Eyes Narrative: Wears glasses General Eye: normal appearance of both eyes Neck General: normal visual inspection Lymph Lymphatic: no lymphadenopathy noted and no lymphedema noted Resp normal respiratory effort Cardio regular rate and regular rhythm Extremity normal capillary refill, no joint enlargement and no pedal edema Extremity Narrative: Vascular: DP and PT pulses weakly palpable. Capillary fill time to the digits is 5 seconds. Normal temperature gradient. There is absent hair growth to the digits noted. Dermatological: There is ulceration noted to the medial aspect of the left lowerextremity/ankle with mixed fibrotic/granular tissue with serosanguineous drainage. Ulceration is noted to be overlying the neurovascular bundle. Negative Stemmer sign left foot. There is evidence of stasis dermatitis with hyperpigmentation/hemosiderin staining of the left lower extremity. Musculoskeletal: Muscle strength 5 of 5 age-appropriate. Skin no rashes or lesions noted, skin turgor normal and no jaundice General Skin Exam: venous stasis and dermatitis Neuro moves all extremities Debridement Note Debridement Note Wound debrided: Left medial ankle Laterality: Left Wound Grade/Stage: Cisneros stage II Type of Debridement: Excisional debridement Anesthesia Used: 5% Lidocaine Gel Depth: Down to and including healthy tissue and in the subcutaneous layer Percentage of wound debrided: 100 Instrument Used: 5mm curette Tissue Removed: Fibrous, devitalized subcutaneous, biofilm, slough Severity: Fat Layer Exposed Amount of bleeding with debridement: Mild Bleeding Controlled with: Compression and gauze Patient tolerated procedure: Patient tolerated procedure well Post-Debridement Measurements and Additional Note: Post-Debridement Measurements/Treatment - Nurse 1 - General Ulcer Assessment Start: 09/22/23 13:59 Freq: Status: Active Protocol: LA NENA.JESUS Activity Type Activity Date Activity User E-sign Co-sign Detail Recorded Client Recorded Date Recorded By Document 09/24/23 11:14 KW Desktop 09/24/23 11:23 KW Document 09/29/23 11:20 RB [id number] 09/29/23 11:24 RB Document 10/01/23 09:16 KW Desktop 10/01/23 09:22 KW 09/24/23 09/29/23 10/01/23 11:14 11:20 09:16 - Today's Visit Information Type of service Follow-up Visit Nurse-only Follow-up Visit (Physician/PROVIDER ENROLLMENT SPECIALIST Visit (Physician/PROVIDER ENROLLMENT SPECIALIST ) ) Arrival Mode Ambulatory Ambulatory Ambulatory Transfer Assistance None Accompanied by byrd Patient Identification Verified (Name & Yes Yes Yes ) Patient Requires Transmission-Based No Precautions Height and Weight Body Mass Index (BMI) 28.8 28.8 28.8 BMI Classification Overweight Overweight Overweight Vital Signs Temperature (97.8 F-99.1 F) 96.7 F L 96 F L 97.9 F Temperature Source Temporal Temporal Temporal Pulse Rate (60-100) 67 70 69 Pulse Location Monitor Monitor Monitor Respiratory Rate (12-18) 18 18 18 Respiratory rate source Observation Observation Observation Oxygen Delivery Method Room Air Room Air Blood Pressure (90/60-120/80) 141/76 H 123/59 H 133/83 H Blood Pressure Mean (mm Hg) 97 80 99 Source Monitor Monitor Monitor Position Semi-Fowlers Semi-Fowlers Semi-Fowlers Blood Pressure Location Left Arm Left Arm Left Arm History Since Last Visit- (Skip if this is Patient's initial visit) Have you changed medications since your No No No last visit? Any new allergies or adverse reactions No No No Had a fall/change in ADL's that may No No No increase risk of falls Signs or symptoms of abuse and/or No No No neglect since last visit Have you been in the hospital since your No No No last visit? Has dressing in place as prescribed Yes Yes Yes Has compression in place as prescribed Yes Yes Yes Has offloadiing in place as prescribed No No No Experienced any changes in pain level or No No No management Left Footwear Regular Shoe Regular Shoe Right Footwear Regular Shoe Regular Shoe Pain Scale: 0-10 Numeric Is Patient Pain Free? Yes Yes Yes WC - Nurse 1 - General Ulcer Measurement Start: 09/22/23 13:59 Freq: Status: Active Protocol: Activity Type Activity Date Activity User E-sign Co-sign Detail Recorded Client Recorded Date Recorded By Document 09/24/23 11:14 KW Desktop 09/24/23 11:23 KW Edit Result 09/24/23 11:14 KW (1) Desktop 09/24/23 11:24 KW Document 09/29/23 11:20 RB [id number] 09/29/23 11:24 RB Document 10/01/23 09:16 KW Desktop 10/01/23 09:22 KW (1) #1 L Med Ankle - Current Size (cm) - Length => 3 - Current Size (cm) - Width => 2.5 - Current Size (cm) - Depth => 0.3 - Total Square Cm => 7.5 09/24/23 09/29/23 10/01/23 11:14 11:20 09:16 Wound Center Nurse 1 #1 L Med Ankle -Current Size (cm) - Length 3 2.5 -Current Size (cm) - Width 2.5 3.2 -Current Size (cm) - Depth 0.3 0.3 -Total Square Cm 7.5 8.00 -Exudate Amt Medium -Exudate Type Serosanguineous Serosanguineous -Wound Margin Thickened Distinct, Outline Attached -Granulation Amt Medium (34-66%) Large (67-100%) -Granulation Quality Brea Red -Necrosis Amt Large (67-100%) Small (1-33%) -Necrotic Tissue Type Adherent Slough Adherent Slough -Texture (Megan-wound Skin Appearance) Assessed Assessed -Moisture (Megan-wound Skin Appearance) Assessed, Assessed Maceration -Color (Megan-wound Skin Appearance) Assessed, Assessed Erythema -Temperature (Megan-wound Skin No Abnormality Appearance) (Pt Warm) -Ulcer Cleansing Soap and Water Soap and Water -Anesthetic Used 5% Lidocaine 5% Lidocaine Gel Gel Lower Limb Edema Present Yes Left Calf (cm) 39.0 37 Left Ankle (cm) 23.4 23 WC - Nurse 2 - General Ulcer CM Notes Start: 09/22/23 13:59 Freq: Status: Active Protocol: Activity Type Activity Date Activity User E-sign Co-sign Detail Recorded Client Recorded Date Recorded By Document 09/24/23 12:40 PL [id number] 09/24/23 12:41 PL 09/24/23 12:40 Wound Center Nurse 2 -Time 11:46 -Correct Patient Yes -Correct Side, Site, Position Yes -Correct Procedure Yes -Procedure Performed Yes -Type of Procedure Debridement -Clinical Debridement Subcutaneous -Tissue Removed Subcutaneous -Post Debridement (cm) - Length 2.8 -Post Debridement (cm) - Width 3.4 -Post Debridement (cm) - Depth 0.4 -Total Square (Post) (cm) 9.52 -Area of Debridement (cm) - Length 2.8 -Area of Debridement (cm) - Width 3.4 -Total Square (Area) (cm) 9.52 -Tunneling No -Undermining/Tunneling No -Circular Undermining No -Wound/Ulcer Outcome Not Healed -Ulcer Cleansing Rinsed/ Irrigated with Saline -Foul Odor after Cleansing No -Bioengineered Tissue Yes -Type of Bioengineered Tissue Epifix Mesh -Expiration Date 05/19/28 -Product Lot Number [id number]. [id number] -Percent Used 100 -Bleeding Controlled with Pressure -Treatment Response Procedure Tolerated Well -Debridement - Subq, 1st 20sq cm No -Apply Skin Sub - 1st 25 sq cm - Legs 1 -Epifix Mesh (per sq cm) 11 Pain Scale: 0-10 Numeric Is Patient Pain Free? Yes - Nurse 3 - General Ulcer D/C NN Start: 09/22/23 13:59 Freq: Status: Active Protocol: Activity Type Activity Date Activity User E-sign Co-sign Detail Recorded Client Recorded Date Recorded By Document 09/22/23 13:59 PL [id number] 09/22/23 14:00 PL Document 09/29/23 11:20 RB [id number] 09/29/23 11:24 RB 09/22/23 09/29/23 13:59 11:20 Wound Care Center Nurse 3 #1 L Med Ankle -Primary Dressing Applied Optilok 6.5x10 -Primary Dressing Covered/Secured with Dry Gauze & Roll Gauze, Secured with Tape -Optilok 6.5x10 1 Left -Multi-Layered Wrap Application Multi-Layer Multi-Layer Comp - Left ($) Comp - Left ($) Treatment Response Procedure Tolerated Well Vital Signs Temperature (97.8 F-99.1 F) 96 F L Temperature Source Temporal Pulse Rate (60-100) 70 Pulse Location Monitor Respiratory Rate (12-18) 18 Respiratory rate source Observation Blood Pressure (90/60-120/80) 123/59 H Blood Pressure Mean (mm Hg) 80 Source Monitor Position Semi-Fowlers Blood Pressure Location Left Arm Pain Scale: 0-10 Numeric Is Patient Pain Free? Yes Yes WC - Visit Discharge Discharge Condition Stable Ambulatory Status Ambulatory Transportation Private Auto Medication Reconcilliation completed & No provided to patient/care provider Clinical Summary of Care Provided Yes Assessment/Plan Assessment/Plan (1) Non-pressure chronic ulcer of left ankle with necrosis of muscle: CODE(S): L97.323 - Non-pressure chronic ulcer of left ankle with necrosis of muscle (2) Venous insufficiency (chronic) (peripheral): CODE(S): I87.2 - Venous insufficiency (chronic) (peripheral) (3) Delayed wound healing: CODE(S): T14.8XXD - Other injury of unspecified body region, subsequent encounter (4) Iron deficiency anemia: CODE(S): D50.9 - Iron deficiency anemia, unspecified (5) Obesity: CODE(S): E66.9 - Obesity, unspecified PLAN: Plan Patient seen and evaluated Left lower extremity: There is ulceration noted to the medial aspect of the leftlower extremity/ankle with mixed fibrogranular tissue with some serosanguineous drainage. Ulceration is noted to be overlying the neurovascular bundle. Negative Stemmer sign left foot. There is evidence of stasis dermatitis with hyperpigmentation/hemosiderin staining of the left lower extremity. Ulceration underwent debridement as noted in the clinical panel above. Ulceration measures 2.4 cm x 3.0 cm x 0.3 cm. No signs of infection. Skin maceration present but overall wound is granulating in well. EpiFix graft #4 applied to wound bed and dressed with Adaptic touch and anchored with Steri-Strips. A Suprasorb dressing was applied then followed by a 3M compression wrapapplied to the left lower extremity. Patient was instructed to not get the dressing wet. Ulceration continues to demonstrate reduction in size versus previous visits. Discussed if he soaks through dressing to call and return for new dressing/compression wrap application. Due to increased drainage from graft he was started on oral Augmentin 875mg BID x 14 days as precaution. He has finishedoral abx to completion. I discussed continued elevation of the lower extremity at all times of rest to aid in edema control. I discussed once ulceration is healed he is to return to a prescription based compression stocking. Discussed updating stockings every 6 to 9 months to ensure proper uniform compression to treat his chronic venous insufficiency and to reduce recidivism of wound. LEAS performed 09/02/23 demonstrates right RONEN 1.31, normal. TBI and Doppler/PVR waveforms of right leg normal at rest; left RONEN 1.38, normal. TBI and Doppler/PVR waveforms of the left leg normal at rest. Venous studies performed 09/02/2023 demonstrates no evidence of bilateral lower extremity DVT. Bilateral great saphenous veins appear patent and compressible segmentally. Positive for reflux right popliteal vein, great saphenous vein in. Positive for reflux left popliteal vein, saphenofemoral junction. Discussed importance of serial debridement to aid in wound healing. He was approved for application of EpiFix advanced wound product, we will continue applications. Discussed proper diet to increase protein intake to aid in wound healing. Recommended Vladimir supplementation. Discussed reducing foods with salty content to aid in edema control. Discussed avoidance of prolonged standing or legs dangling over side of chair/bed. Discussed with patient the depth of the ulcerative site and close proximity to the neurovascular bundle. Discussed with him signs and symptoms of infection. Discussed if he notices redness about the ulcerative site moving up the leg, purulent drainage from the wound site, foul increasing odor from the wound, or if he experiences fever greater than 101 degree, nausea, vomiting, chills/rigor,that these are signs of progressing infection and he should report to the ED to receive IV antibiotics. Patient and voiced understanding of this. The following work up and care recommendations were made: Dressing: EpiFix, Adaptic touch, Steri-Strips, Suprasorb, 3M compression wrap left lower extremity. Wash: Do not get wet Tissue growth optimization: EpiFix Offload: To ensure no pressure to the medial ankle/hindfoot Vascular: DP and PT pulses palpable with adequate capillary fill to digits. Edema: Discussed elevation of lower extremities at times of rest. 3M compression wrap placed. Infection: No signs of infection. Patient currently finishing oral cephalexin. Encouraged to take antibiotic to completion. Pain: May take Tylenol extra strength for discomfort Host factors: Chronic venous insufficiency I answered all the patient's questions. To return to the wound healing center in 2 weeks or call sooner if the patient has any questions or concerns. 10/01/23 0952 <Electronically signed by Merrill Burns DPM> Cosigner Signature (if applicable): CC: ~ Signed [facility] Work Phone: 1(598) 142-914412-07-2023 Progress note Author Merrill Burns [facility] September 24, 2023 3:31pm Note Date/Time September 24, 2023 3 :28pm [facility] [address] [place] [address] Progress Note - Wound Care 09/24/23 1520 MR#: [id number] Acct: [id number] Name: WELLINGTON GONZALEZ Rep #:[id number] : 1945 78 From: Merrill machado DPM PCP: Dr. Randa Joseph, DO Status:REG RCR Location: History of Present Illness Date of Service: 09/24/23 Chief Complaint: Left medial ankle wound History of Wound: Patient is a 78-year-old male who presents to the wound care center with recurring left lower extremity medial ankle wound. He has PMHx of recurring left lower extremity ulceration secondary to chronic venous insufficiency, history of DVT, obesity, JOSHUA, iron deficient anemia, delayed wound healing, and asthma. He states that he does have compression stockings but his stockings are old. States that approximately 2-1/2 months ago this ulceration did open again to the medial ankle and has been unable to progress inhealing. He was placed on oral antibiotics, cephalexin, and is finishing antibiotic course. Has been applying topical ointments to the wound daily with dressing changes. He did follow with his primary care who did refer him to the wound center due to nonhealing ulceration. He denies trauma to the site. States that the specific site is recurrent with breakdown of skin. Denies N/V/F/chills. No further complaints. 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 Patient states that the compression wrapping has made his legs feel better. He states heis also having less pain. He does admit to continued drainage of the wound site and states still soaks his dressing after a few days. Denies constitutional symptoms. Denies further complaints. Objective Data Objective Data Vital Signs: Vital Signs Temp Pulse Resp BP O2 Del Method 96.7 F L 67 18 141/76 H Room Air 09/24/23 11:14 09/24/23 11:14 09/24/23 11:14 09/24/23 11:14 09/24/23 11:14 Oxygen Delivery Method Room Air Weight: 99.159 kg Body Mass Index (BMI) 28.8 Physical Exam Const alert, oriented x3 and no apparent distress General Appearance: cooperative HEENT normocephalic Eyes Eyes Narrative: Wears glasses General Eye: normal appearance of both eyes Neck General: normal visual inspection Lymph Lymphatic: no lymphadenopathy noted and no lymphedema noted Resp normal respiratory effort Cardio regular rate and regular rhythm Extremity normal capillary refill, no joint enlargement and no pedal edema Extremity Narrative: Vascular: DP and PT pulses weakly palpable. Capillary fill time to the digits is 5 seconds. Normal temperature gradient. There is absent hair growth to the digits noted. Dermatological: There is ulceration noted to the medial aspect of the left lowerextremity/ankle with mixed fibrotic/granular tissue with serosanguineous drainage. Ulceration is noted to be overlying the neurovascular bundle. Negative Stemmer sign left foot. There is evidence of stasis dermatitis with hyperpigmentation/hemosiderin staining of the left lower extremity. Musculoskeletal: Muscle strength 5 of 5 age-appropriate. Skin no rashes or lesions noted, skin turgor normal and no jaundice General Skin Exam: venous stasis and dermatitis Neuro moves all extremities Debridement Note Debridement Note Wound debrided: Left medial ankle Laterality: Left Wound Grade/Stage: Cisneros stage II Type of Debridement: Excisional debridement Anesthesia Used: 5% Lidocaine Gel and - (10 cc 1% lidocaine plain) Depth: Down to and including healthy tissue and in the subcutaneous layer Percentage of wound debrided: 100 Instrument Used: 5mm curette Tissue Removed: Fibrous, devitalized subcutaneous, biofilm, slough Severity: Fat Layer Exposed Amount of bleeding with debridement: Mild Bleeding Controlled with: Compression and gauze Patient tolerated procedure: Patient tolerated procedure well Post-Debridement Measurements and Additional Note: Post-Debridement Measurements/Treatment - Nurse 1 - General Ulcer Assessment Start: 09/22/23 13:59 Freq: Status: Active Protocol: .LOWEXT Activity Type Activity Date Activity User E-sign Co-sign Detail Recorded Client Recorded Date Recorded By Document 09/24/23 11:14 KW Desktop 09/24/23 11:23 KW 09/24/23 11:14 - Today's Visit Information Type of service Follow-up Visit (Physician/PROVIDER ENROLLMENT SPECIALIST ) Arrival Mode Ambulatory Accompanied by byrd Patient Identification Verified (Name & Yes ) Height and Weight Body Mass Index (BMI) 28.8 BMI Classification Overweight Vital Signs Temperature (97.8 F-99.1 F) 96.7 F L Temperature Source Temporal Pulse Rate (60-100) 67 Pulse Location Monitor Respiratory Rate (12-18) 18 Respiratory rate source Observation Oxygen Delivery Method Room Air Blood Pressure (90/60-120/80) 141/76 H Blood Pressure Mean (mm Hg) 97 Source Monitor Position Semi-Fowlers Blood Pressure Location Left Arm History Since Last Visit- (Skip if this is Patient's initial visit) Have you changed medications since your No last visit? Any new allergies or adverse reactions No Had a fall/change in ADL's that may No increase risk of falls Signs or symptoms of abuse and/or No neglect since last visit Have you been in the hospital since your No last visit? Has dressing in place as prescribed Yes Has compression in place as prescribed Yes Has offloadiing in place as prescribed No Experienced any changes in pain level or No management Left Footwear Regular Shoe Right Footwear Regular Shoe Pain Scale: 0-10 Numeric Is Patient Pain Free? Yes WC - Nurse 1 - General Ulcer Measurement Start: 09/22/23 13:59 Freq: Status: Active Protocol: Activity Type Activity Date Activity User E-sign Co-sign Detail Recorded Client Recorded Date Recorded By Document 09/24/23 11:14 KW Desktop 09/24/23 11:23 KW Edit Result 09/24/23 11:14 KW (1) Desktop 09/24/23 11:24 KW (1) #1 L Med Ankle - Current Size (cm) - Length => 3 - Current Size (cm) - Width => 2.5 - Current Size (cm) - Depth => 0.3 - Total Square Cm => 7.5 09/24/23 11:14 Wound Center Nurse 1 #1 L Med Ankle -Current Size (cm) - Length 3 -Current Size (cm) - Width 2.5 -Current Size (cm) - Depth 0.3 -Total Square Cm 7.5 -Exudate Type Serosanguineous -Wound Margin Thickened -Granulation Amt Medium (34-66%) -Granulation Quality Brea -Necrosis Amt Large (67-100%) -Necrotic Tissue Type Adherent Slough -Texture (Megan-wound Skin Appearance) Assessed -Moisture (Megan-wound Skin Appearance) Assessed, Maceration -Color (Megan-wound Skin Appearance) Assessed, Erythema -Temperature (Megan-wound Skin No Abnormality Appearance) (Pt Warm) -Ulcer Cleansing Soap and Water -Anesthetic Used 5% Lidocaine Gel Left Calf (cm) 39.0 Left Ankle (cm) 23.4 WC - Nurse 2 - General Ulcer CM Notes Start: 09/22/23 13:59 Freq: Status: Active Protocol: Activity Type Activity Date Activity User E-sign Co-sign Detail Recorded Client Recorded Date Recorded By Document 09/24/23 12:40 PL [id number] 09/24/23 12:41 PL 09/24/23 12:40 Wound Center Nurse 2 #1 L Med Ankle -Time 11:46 -Correct Patient Yes -Correct Side, Site, Position Yes -Correct Procedure Yes -Procedure Performed Yes -Type of Procedure Debridement -Clinical Debridement Subcutaneous -Tissue Removed Subcutaneous -Post Debridement (cm) - Length 2.8 -Post Debridement (cm) - Width 3.4 -Post Debridement (cm) - Depth 0.4 -Total Square (Post) (cm) 9.52 -Area of Debridement (cm) - Length 2.8 -Area of Debridement (cm) - Width 3.4 -Total Square (Area) (cm) 9.52 -Tunneling No -Undermining/Tunneling No -Circular Undermining No -Wound/Ulcer Outcome Not Healed -Ulcer Cleansing Rinsed/ Irrigated with Saline -Foul Odor after Cleansing No -Bioengineered Tissue Yes -Type of Bioengineered Tissue Epifix Mesh -Expiration Date 05/19/28 -Product Lot Number [id number]. 012 -Percent Used 100 -Bleeding Controlled with Pressure -Treatment Response Procedure Tolerated Well -Debridement - Subq, 1st 20sq cm No -Apply Skin Sub - 1st 25 sq cm - Legs 1 -Epifix Mesh (per sq cm) 11 Pain Scale: 0-10 Numeric Is Patient Pain Free? Yes - Nurse 3 - General Ulcer D/C NN Start: 09/22/23 13:59 Freq: Status: Active Protocol: Activity Type Activity Date Activity User E-sign Co-sign Detail Recorded Client Recorded Date Recorded By Document 09/22/23 13:59 PL [id number] 09/22/23 14:00 PL 09/22/23 13:59 Wound Care Center Nurse 3 Left -Multi-Layered Wrap Application Multi-Layer Comp - Left ($) Pain Scale: 0-10 Numeric Is Patient Pain Free? Yes Assessment/Plan Assessment/Plan (1) Non-pressure chronic ulcer of left ankle with necrosis of muscle: CODE(S): L97.323 - Non-pressure chronic ulcer of left ankle with necrosis of muscle (2) Venous insufficiency (chronic) (peripheral): CODE(S): I87.2 - Venous insufficiency (chronic) (peripheral) (3) Delayed wound healing: CODE(S): T14.8XXD - Other injury of unspecified body region, subsequent encounter (4) Iron deficiency anemia: CODE(S): D50.9 - Iron deficiency anemia, unspecified (5) Obesity: CODE(S): E66.9 - Obesity, unspecified PLAN: Plan Patient seen and evaluated Left lower extremity: There is ulceration noted to the medial aspect of the leftlower extremity/ankle with mixed fibrogranular tissue with some serosanguineous drainage. Ulceration is noted to be overlying the neurovascular bundle. Negative Stemmer sign left foot. There is evidence of stasis dermatitis with hyperpigmentation/hemosiderin staining of the left lower extremity. Ulceration underwent debridement as noted in the clinical panel above. Ulceration measures 2.8 cm x 3.4 cm x 0.4 cm. No signs of infection. Skin maceration present but overall wound is granulating in well. EpiFix graft #3 applied to wound bed and dressed with Adaptic touch and anchored with Steri-Strips. A Suprasorb dressing was applied then followed by a 3M compression wrapapplied to the left lower extremity. Patient was instructed to not get the dressing wet. Discussed if he soaks through dressing to call and return for new dressing/compression wrap application. Due to increased drainage from graft I amplacing him on oral Augmentin 875mg BID x 14 days as precaution. He is finishingoral abx. I discussed continued elevation of the lower extremity at all times of rest to aid in edema control. I discussed once ulceration is healed he is to return to a prescription based compression stocking. Discussed updating stockings every 6 to 9 months to ensure proper uniform compression to treat his chronic venous insufficiency and to reduce recidivism of wound. LEAS performed 09/02/23 demonstrates right RONEN 1.31, normal. TBI and Doppler/PVR waveforms of right leg normal at rest; left RONEN 1.38, normal. TBI and Doppler/PVR waveforms of the left leg normal at rest. Venous studies performed 09/02/2023 demonstrates no evidence of bilateral lower extremity DVT. Bilateral great saphenous veins appear patent and compressible segmentally. Positive for reflux right popliteal vein, great saphenous vein in. Positive for reflux left popliteal vein, saphenofemoral junction. Discussed importance of serial debridement to aid in wound healing. He was approved for application of EpiFix advanced wound product, we will continue applications. Discussed proper diet to increase protein intake to aid in wound healing. Recommended Vladimir supplementation. Discussed reducing foods with salty content to aid in edema control. Discussed avoidance of prolonged standing or legs dangling over side of chair/bed. Discussed with patient the depth of the ulcerative site and close proximity to the neurovascular bundle. Discussed with him signs and symptoms of infection. Discussed if he notices redness about the ulcerative site moving up the leg, purulent drainage from the wound site, foul increasing odor from the wound, or if he experiences fever greater than 101 degree, nausea, vomiting, chills/rigor,that these are signs of progressing infection and he should report to the ED to receive IV antibiotics. Patient and voiced understanding of this. The following work up and care recommendations were made: Dressing: EpiFix, Adaptic touch, Steri-Strips, Suprasorb, 3M compression wrap left lower extremity. Wash: Do not get wet Tissue growth optimization: EpiFix Offload: To ensure no pressure to the medial ankle/hindfoot Vascular: DP and PT pulses palpable with adequate capillary fill to digits. Edema: Discussed elevation of lower extremities at times of rest. 3M compression wrap placed. Infection: No signs of infection. Patient currently finishing oral cephalexin. Encouraged to take antibiotic to completion. Pain: May take Tylenol extra strength for discomfort Host factors: Chronic venous insufficiency I answered all the patient's questions. To return to the wound healing center in 1 week or call sooner if the patient has any questions or concerns. 09/24/23 1531 <Electronically signed by Merrill Burns DPM> Cosigner Signature (if applicable): CC: ~ Signed [facility] Work Phone: 1(168) 112-790211-30-2023 Progress note Author Merrill Burns [facility] September 17, 2023 9:29am Note Date/Time September 17, 2023 9:29am [facility] [address] [place] [address] Progress Note - Wound Care 09/17/2320 MR#: [id number] Acct: [id number] Name: WELLINGTON GONZALEZ Rep #:[id number] : 1945 78 From: Merrill machado DPM PCP: Dr. Randa Joseph, DO Status:REG RCR Location: History of Present Illness Date of Service: 09/17/23 Chief Complaint: Left medial ankle wound History of Wound: Patient is a 78-year-old male who presents to the wound care center with recurring left lower extremity medial ankle wound. He has PMHx of recurring left lower extremity ulceration secondary to chronic venous insufficiency, history of DVT, obesity, JOSHUA, iron deficient anemia, delayed wound healing, and asthma. He states that he does have compression stockings but his stockings are old. States that approximately 2-1/2 months ago this ulceration did open again to the medial ankle and has been unable to progress inhealing. He was placed on oral antibiotics, cephalexin, and is finishing antibiotic course. Has been applying topical ointments to the wound daily with dressing changes. He did follow with his primary care who did refer him to the wound center due to nonhealing ulceration. He denies trauma to the site. States that the specific site is recurrent with breakdown of skin. Denies N/V/F/chills. No further complaints. 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 Patient states that the compression wrapping has made his legs feel better. He does admit to continued drainage of the wound site and states it completely soaks hisdressing in a day or two. Admits he has been on feet for work even with compression dressing, states he did not want to bother calling in the last two days for dressing change, admits to some odor due to drainage. Denies constitutional symptoms. Denies further complaints. Objective Data Objective Data Vital Signs: Vital Signs Temp Pulse Resp BP O2 Del Method 97.6 F L 77 18 138/78 H Room Air 09/17/23 08:21 09/17/23 08:21 09/17/23 08:21 09/17/23 08:21 09/07/23 11:30 Oxygen Delivery Method Room Air Weight: 99.159 kg Body Mass Index (BMI) 28.8 Lab / Micro Data 09/02/23 09:10 09/02/23 09:10 Physical Exam Const alert, oriented x3 and no apparent distress General Appearance: cooperative HEENT normocephalic Eyes Eyes Narrative: Wears glasses General Eye: normal appearance of both eyes Neck General: normal visual inspection Lymph Lymphatic: no lymphadenopathy noted and no lymphedema noted Resp normal respiratory effort Cardio regular rate and regular rhythm Extremity normal capillary refill, no joint enlargement, no calf tenderness and no pedal edema Extremity Narrative: Vascular: DP and PT pulses weakly palpable. Capillary fill time to the digits is 5 seconds. Normal temperature gradient. There is absent hair growth to the digits noted. Dermatological: There is ulceration noted to the medial aspect of the left lowerextremity/ankle with mixed fibrotic/granular tissue with serosanguineous drainage. Ulceration is noted to be overlying the neurovascular bundle. Negative Stemmer sign left foot. There is evidence of stasis dermatitis with hyperpigmentation/hemosiderin staining of the left lower extremity. Musculoskeletal: Muscle strength 5 of 5 age-appropriate. Skin no jaundice General Skin Exam: venous stasis and dermatitis Neuro moves all extremities Debridement Note Debridement Note Wound debrided: Left medial ankle Laterality: Left Wound Grade/Stage: Cisneros stage II Type of Debridement: Excisional debridement Anesthesia Used: 5% Lidocaine Gel and - (10 cc 1% lidocaine plain) Depth: Down to and including healthy tissue and in the subcutaneous layer Percentage of wound debrided: 100 Instrument Used: 5mm curette Tissue Removed: Fibrous, devitalized subcutaneous, biofilm, slough Severity: Fat Layer Exposed Amount of bleeding with debridement: Mild Bleeding Controlled with: Compression and gauze Patient tolerated procedure: Patient tolerated procedure well Post-Debridement Measurements and Additional Note: Post-Debridement Measurements/Treatment WC - Nurse 1 - General Ulcer Assessment Start: 08/27/23 09:10 Freq: Status: Active Protocol: ANAYA Activity Type Activity Date Activity User E-sign Co-sign Detail Recorded Client Recorded Date Recorded By Document 08/27/23 09:13 DL Desktop 08/27/23 09:30 DL Document 08/31/23 08:13 BMF Desktop 08/31/23 08:14 BMF Document 09/03/23 08:25 NRL Desktop 09/03/23 08:37 NRL Document 09/07/23 11:30 GM Desktop 09/07/23 11:35 GM Document 09/17/23 08:21 PL Tablet 09/17/23 08:29 PL 08/27/23 08/31/23 09/03/23 09:13 08:13 08:25 WC - Today's Visit Information Type of service Initial Visit Nurse-only Follow-up Visit Visit (Physician/PROVIDER ENROLLMENT SPECIALIST ) Arrival Mode Ambulatory Ambulatory Ambulatory Transfer Assistance None None Patient Identification Verified (Name & Yes Yes Yes ) Patient Requires Transmission-Based No No Precautions Safety Precautions Height and Weight Height 6 ft 1 in Weight 99.159 kg Weight in Pounds 218.6 lbs Body Mass Index (BMI) 28.8 28.8 28.8 BMI Classification Overweight Overweight Overweight BSA - Francois 2.23 Vital Signs Temperature (97.8 F-99.1 F) 96.5 F L 96.5 F L 96.8 F L Temperature Source Temporal Temporal Temporal Pulse Rate (60-100) 64 75 69 Pulse Location Monitor Monitor Monitor Respiratory Rate (12-18) 18 16 16 Respiratory rate source Observation Observation Observation Oxygen Delivery Method Room Air Blood Pressure (90/60-120/80) 142/97 H 110/79 146/69 H Blood Pressure Mean (mm Hg) 112 89 94 Source Monitor Monitor Monitor Position Sitting Sitting Blood Pressure Location Left Forearm Left Arm History Since Last Visit- (Skip if this is Patient's initial visit) Have you changed medications since your No No last visit? Any new allergies or adverse reactions No No Had a fall/change in ADL's that may No No increase risk of falls Signs or symptoms of abuse and/or No No neglect since last visit Have you been in the hospital since your No No last visit? Has dressing in place as prescribed Yes Yes Has compression in place as prescribed Yes Yes Has offloadiing in place as prescribed N/A N/A Experienced any changes in pain level or No No management Left Footwear Regular Shoe Regular Shoe Right Footwear Regular Shoe Regular Shoe Pain Scale: 0-10 Numeric Is Patient Pain Free? Yes Yes Yes Lower Extremity Assessment/ Foot Assessment/ Toe Nail Assessment Left -Posterior Tibial Palpable Yes -Posterior Tibial Doppler Multiphasic -Dorsalis Pedis Palpable No -Dorsalis Pedis Doppler Multiphasic -Extremity Color Hyperpigmented, Hemosiderin -Hair Growth on Legs No -Hair Growth on Toes No -Temperature of Extremity Warm -Capillary Refill Greater than 3 Seconds -Dependent Rubor No -Blanched when Elevated No -Lipodermatosclerosis No -Other Deformity No -Prior Foot Ulcer No -Charcot Joint No -Prior Amputation No -Thick Yes -Discolored Yes -Deformed Yes -Improper Length & Hygeine No Right -Posterior Tibial Palpable No -Posterior Tibial Doppler Multiphasic -Dorsalis Pedis Palpable Yes -Dorsalis Pedis Doppler Multiphasic -Extremity Color Hyperpigmented, Hemosiderin -Hair Growth on Legs No -Hair Growth on Toes No -Temperature of Extremity Warm -Capillary Refill Greater than 3 Seconds -Dependent Rubor No -Blanched when Elevated No -Lipodermatosclerosis No -Other Deformity No -Prior Foot Ulcer No -Charcot Joint No -Prior Amputation No -Thick Yes -Discolored Yes -Deformed Yes -Improper Length & Hygeine No Neuropathy Assessment Feet - Top Side and Bottom <Entered> (a) Communication Assessment Preferred language Qatari Able to Read Yes Able to Write Yes Right Hearing Abillity Use of Hearing Aid Left Hearing Abillity Use of Hearing Aid Visual Assistive Devices Glasses Teaching Assessment Preferences Verbal,Written, Demonstration Functional Assessment Recent Decline in Ability to Perform Denies Any Declines Culture/Congregational/Supervisor [employer] Cultural/Congregational Needs that may affect No Treatment Plan Would you allow our hospital post tronic machine operator to No meet you for the purpose of spiritual/ emotional support? Supervisor [employer] House to contact place of anabaptism No Teaching: Wound Center Drainage -Person Taught -Teaching Method -Response to teaching *Welcome to the Wound Center -Person Taught Patient 09/07/23 09/17/23 11:30 08:21 WC - Today's Visit Information Type of service Nurse-only Follow-up Visit Visit (Physician/PROVIDER ENROLLMENT SPECIALIST ) Arrival Mode Ambulatory Ambulatory Transfer Assistance None None Patient Identification Verified (Name & Yes Yes ) Patient Requires Transmission-Based No No Precautions Safety Precautions NA NA Height and Weight Height Weight Weight in Pounds Body Mass Index (BMI) 28.8 28.8 BMI Classification Overweight Overweight BSA - Francois Vital Signs Temperature (97.8 F-99.1 F) 97.1 F L 97.6 F L Temperature Source Temporal Temporal Pulse Rate (60-100) 78 77 Pulse Location Monitor Respiratory Rate (12-18) 18 Respiratory rate source Oxygen Delivery Method Room Air Blood Pressure (90/60-120/80) 155/78 H 138/78 H Blood Pressure Mean (mm Hg) 103 98 Source Monitor Position Sitting Blood Pressure Location Left Arm History Since Last Visit- (Skip if this is Patient's initial visit) Have you changed medications since your No No last visit? Any new allergies or adverse reactions No No Had a fall/change in ADL's that may No No increase risk of falls Signs or symptoms of abuse and/or No No neglect since last visit Have you been in the hospital since your No No last visit? Has dressing in place as prescribed Yes Yes Has compression in place as prescribed Yes Yes Has offloadiing in place as prescribed No N/A Experienced any changes in pain level or No No management Left Footwear Right Footwear Pain Scale: 0-10 Numeric Is Patient Pain Free? Yes Yes Lower Extremity Assessment/ Foot Assessment/ Toe Nail Assessment Left -Posterior Tibial Palpable -Posterior Tibial Doppler -Dorsalis Pedis Palpable -Dorsalis Pedis Doppler -Extremity Color -Hair Growth on Legs -Hair Growth on Toes -Temperature of Extremity -Capillary Refill -Dependent Rubor -Blanched when Elevated -Lipodermatosclerosis -Other Deformity -Prior Foot Ulcer -Charcot Joint -Prior Amputation -Thick -Discolored -Deformed -Improper Length & Hygeine Right -Posterior Tibial Palpable -Posterior Tibial Doppler -Dorsalis Pedis Palpable -Dorsalis Pedis Doppler -Extremity Color -Hair Growth on Legs -Hair Growth on Toes -Temperature of Extremity -Capillary Refill -Dependent Rubor -Blanched when Elevated -Lipodermatosclerosis -Other Deformity -Prior Foot Ulcer -Charcot Joint -Prior Amputation -Thick -Discolored -Deformed -Improper Length & Hygeine Neuropathy Assessment Feet - Top Side and Bottom Communication Assessment Preferred language Able to Read Able to Write Right Hearing Abillity Left Hearing Abillity Visual Assistive Devices Teaching Assessment Preferences Functional Assessment Recent Decline in Ability to Perform Culture/Congregational/Supervisor [employer] House Cultural/Congregational Needs that may affect Treatment Plan Would you allow our hospital post tronic machine operator to meet you for the purpose of spiritual/ emotional support? Supervisor [employer] House to contact place of anabaptism Teaching: Wound Center Drainage -Person Taught Patient -Teaching Method Discussion -Response to teaching Verbalize understanding *Welcome to the Wound Center -Person Taught (a) 1 - + WC - Nurse 1 - General Ulcer Measurement Start: 08/27/23 09:10 Freq: Status: Active Protocol: Activity Type Activity Date Activity User E-sign Co-sign Detail Recorded Client Recorded Date Recorded By Document 08/27/23 09:13 DL Desktop 08/27/23 09:30 DL Document 08/31/23 08:13 BMF Desktop 08/31/23 08:14 BMF Document 09/03/23 08:25 NRL Desktop 09/03/23 08:37 NRL Document 09/07/23 11:30 GM Desktop 09/07/23 11:35 GM 08/27/23 08/31/23 09/03/23 09:13 08:13 08:25 Wound Center Nurse 1 #1 L Med Ankle -Combined with other wound No -Current Size (cm) - Length 2.8 -Current Size (cm) - Width 4 -Current Size (cm) - Depth 0.8 -Total Square Cm 11.2 -Photo Taken Yes -Epithelialization Small 1-33% -Undermining/Tunneling No -Circular Undermining No -Exudate Amt Medium Large -Exudate Type Serosanguineous Serosanguineous -Wound Margin Thickened & Distinct, Rolled Under Outline Attached -Granulation Amt None Present (0 Small (1-33%) %) -Granulation Quality Brea -Necrosis Amt Large (67-100%) Medium (34-66%) -Necrotic Tissue Type Adherent Slough Adherent Slough -Structure Exposed N/A -Texture (Megan-wound Skin Appearance) Localized Edema Assessed ,Scarring,Rash -Moisture (Megan-wound Skin Appearance) No Abnormality Assessed -Color (Megan-wound Skin Appearance) Erythema, Assessed Hemosiderin Staining -Temperature (Megan-wound Skin No Abnormality No Abnormality Appearance) (Pt Warm) (Pt Warm) -Tenderness on Palpation (Megan-wound No No Skin Appearance) -Ulcer Cleansing Soap and Water Wound Cleanser -Foul Odor after Cleansing No No -Anesthetic Used 5% Lidocaine 5% Lidocaine Gel Gel Lower Limb Edema Present Yes Yes Left Calf (cm) 40 42.4 40.5 Left Ankle (cm) 23.8 24.5 29.3 09/07/23 11:30 Wound Center Nurse 1 #1 L Med Ankle -Combined with other wound No -Current Size (cm) - Length -Current Size (cm) - Width -Current Size (cm) - Depth -Total Square Cm -Photo Taken -Epithelialization -Undermining/Tunneling -Circular Undermining -Exudate Amt -Exudate Type -Wound Margin -Granulation Amt -Granulation Quality -Necrosis Amt -Necrotic Tissue Type -Structure Exposed -Texture (Megan-wound Skin Appearance) -Moisture (Megan-wound Skin Appearance) -Color (Megan-wound Skin Appearance) -Temperature (Megan-wound Skin Appearance) -Tenderness on Palpation (Megan-wound Skin Appearance) -Ulcer Cleansing -Foul Odor after Cleansing -Anesthetic Used Lower Limb Edema Present Left Calf (cm) 38.5 Left Ankle (cm) 22.4 WC - Nurse 2 - General Ulcer CM Notes Start: 08/27/23 09:10 Freq: Status: Active Protocol: Activity Type Activity Date Activity User E-sign Co-sign Detail Recorded Client Recorded Date Recorded By Document 08/27/23 17:03 PL [id number] 08/27/23 17:04 PL Document 09/03/23 16:11 PL [id number] 09/03/23 16:13 PL 08/27/23 09/03/23 17:03 16:11 Wound Center Nurse 2 #1 L Med Ankle -Time 10:32 09:00 -Correct Patient Yes Yes -Correct Side, Site, Position Yes Yes -Correct Procedure Yes Yes -Procedure Performed Yes Yes -Type of Procedure Debridement Debridement -Clinical Debridement Subcutaneous Subcutaneous -Tissue Removed Subcutaneous Subcutaneous -Post Debridement (cm) - Length 2.5 2.9 -Post Debridement (cm) - Width 3.7 4.0 -Post Debridement (cm) - Depth 0.5 0.5 -Total Square (Post) (cm) 9.25 11.60 -Area of Debridement (cm) - Length 2.5 2.9 -Area of Debridement (cm) - Width 3.7 4.0 -Total Square (Area) (cm) 9.25 11.60 -Tunneling No No -Undermining/Tunneling No No -Circular Undermining No No -Wound/Ulcer Outcome Not Healed Not Healed -Ulcer Cleansing Rinsed/ Rinsed/ Irrigated with Irrigated with Saline Saline -Foul Odor after Cleansing No No -Bioengineered Tissue No Yes -Type of Bioengineered Tissue Epifix Mesh -Expiration Date 04/18/28 -Product Lot Number [id number] -Percent Used 100 -Bleeding Controlled with Pressure Pressure -Treatment Response Procedure Procedure Tolerated Well Tolerated Well -Debridement - Subq, 1st 20sq cm Yes No -Apply Skin Sub - 1st 25 sq cm - Legs 1 -Epifix Mesh (per sq cm) 11 Pain Scale: 0-10 Numeric Is Patient Pain Free? Yes Yes WC - Nurse 3 - General Ulcer D/C NN Start: 08/27/23 09:10 Freq: Status: Active Protocol: Activity Type Activity Date Activity User E-sign Co-sign Detail Recorded Client Recorded Date Recorded By Document 08/27/23 10:58 KW Desktop 08/27/23 10:58 KW Document 08/31/23 08:14 [facility] Desktop 08/31/23 08:17 BM Document 09/03/23 09:24 NR Desktop 09/03/23 09:27 NR Document 09/07/23 11:30 Desktop 09/07/23 11:35 08/27/23 08/31/23 09/03/23 10:58 08:14 09:24 Wound Care Center Nurse 3 #1 L Med Ankle -Ulcer Cleansing Rinsed/ Soap and Water Wound Cleanser Irrigated with Saline -Foul Odor after Cleansing No No -Primary Dressing Applied Aquacel AG 4x4, Aquacel AG 2x2, Coban: 2 Layer Promogran Promogran System,Optilok Abran Matter Abran Matter 6.5x10 -Other Dressing abd -Primary Dressing Covered/Secured with Dry Gauze & Dry Gauze Roll Gauze, Secured with Tape -Other Covering per gm rn -Aquacel AG 2x2 1 -Aquacel AG 4x4 1 -Coban: 2 Layer System 1 -Optilok 6.5x10 1 -Promogran Abran Matter 1 1 Left -Lotion applied to leg before compression wrap -Multi-Layered Wrap Application Multi-Layer Multi-Layer Comp - Left ($) Comp - Left ($) -Other applied per gm rn Treatment Response Procedure Tolerated Well Vital Signs Temperature (97.8 F-99.1 F) Temperature Source Pulse Rate (60-100) Pulse Location Oxygen Delivery Method Blood Pressure (90/60-120/80) Blood Pressure Mean (mm Hg) Source Position Blood Pressure Location Pain Scale: 0-10 Numeric Is Patient Pain Free? Yes Yes Yes Teaching: Wound Center Drainage -Person Taught -Teaching Method -Response to teaching WC - Visit Discharge Discharge Condition Stable Stable Stable Ambulatory Status Ambulatory Ambulatory Ambulatory Transportation Private Auto Private Auto Private Auto Accompanied by Medication Reconcilliation completed & No Yes provided to patient/care provider Clinical Summary of Care Provided Yes Yes Notes: PT ARRIVED WITHOUT APPT. CONCERNED THAT 3M WRAP WAS CAUSING DISCOMFORT. 3M WAS IN PLACE, CONSULTED CM PL , DID REMOVE AND APPLY ANOTHER. PT TO CALL IF ANY OTHER ISSUES. ENCOURAGED TO ELEVATE LEGS OFTEN POSSIBLE. PT STATED HE DID FEEL RELIEF W/ REMOVAL OF 3M . 09/07/23 11:30 Wound Care Center Nurse 3 #1 L Med Ankle -Ulcer Cleansing Soap and Water -Foul Odor after Cleansing No -Primary Dressing Applied Optilok 6.5x10 -Other Dressing -Primary Dressing Covered/Secured with -Other Covering -Aquacel AG 2x2 -Aquacel AG 4x4 -Coban: 2 Layer System -Optilok 6.5x10 1 -Promogran Abarn Matter Left -Lotion applied to leg before No compression wrap -Multi-Layered Wrap Application Multi-Layer Comp - Left ($) -Other Treatment Response Vital Signs Temperature (97.8 F-99.1 F) 97.1 F L Temperature Source Temporal Pulse Rate (60-100) 78 Pulse Location Monitor Oxygen Delivery Method Room Air Blood Pressure (90/60-120/80) 155/78 H Blood Pressure Mean (mm Hg) 103 Source Monitor Position Sitting Blood Pressure Location Left Arm Pain Scale: 0-10 Numeric Is Patient Pain Free? Yes Teaching: Wound Center Drainage -Person Taught Patient -Teaching Method Discussion -Response to teaching Verbalize understanding WC - Visit Discharge Discharge Condition Stable Ambulatory Status Ambulatory Transportation Private Auto Accompanied by Medication Reconcilliation completed & No provided to patient/care provider Clinical Summary of Care Provided No Notes: Assessment/Plan Assessment/Plan (1) Obesity: CODE(S): E66.9 - Obesity, unspecified (2) Iron deficiency anemia: CODE(S): D50.9 - Iron deficiency anemia, unspecified (3) Venous insufficiency (chronic) (peripheral): CODE(S): I87.2 - Venous insufficiency (chronic) (peripheral) (4) Non-pressure chronic ulcer of left ankle with necrosis of muscle: CODE(S): L97.323 - Non-pressure chronic ulcer of left ankle with necrosis of muscle (5) Delayed wound healing: CODE(S): T14.8XXD - Other injury of unspecified body region, subsequent encounter PLAN: Plan Patient seen and evaluated Left lower extremity: There is ulceration noted to the medial aspect of the leftlower extremity/ankle with mixed fibrogranular tissue with some serosanguineous drainage. Ulceration is noted to be overlying the neurovascular bundle. Negative Stemmer sign left foot. There is evidence of stasis dermatitis with hyperpigmentation/hemosiderin staining of the left lower extremity. Ulceration underwent debridement as noted in the clinical panel above. Ulceration measures 3.0 cm x 4.5 cm x 0.7 cm. No signs of infection. Skin maceration present but overall wound is granulating in well. EpiFix graft #2 applied to wound bed and dressed with Adaptic touch and anchored with Steri-Strips. A Suprasorb dressing was applied then followed by a 3M compression wrapapplied to the left lower extremity. Patient was instructed to not get the dressing wet. Discussed if he soaks through dressing to call and return for new dressing/compression wrap application. Due to increased drainage from graft I am placing him on oral Augmentin 875mg BID x 14 days as precaution. I discussed continued elevation of the lower extremity at all times of rest to aid in edema control. I discussed once ulceration is healed he is to return to a prescription based compression stocking. Discussed updating stockings every 6 to 9 months to ensure proper uniform compression to treat his chronic venous insufficiency and to reduce recidivism of wound. LEAS performed 09/02/23 demonstrates right RONEN 1.31, normal. TBI and Doppler/PVR waveforms of right leg normal at rest; left RONEN 1.38, normal. TBI and Doppler/PVR waveforms of the left leg normal at rest. Venous studies performed 09/02/2023 demonstrates no evidence of bilateral lower extremity DVT. Bilateral great saphenous veins appear patent and compressible segmentally. Positive for reflux right popliteal vein, great saphenous vein in. Positive for reflux left popliteal vein, saphenofemoral junction. Discussed importance of serial debridement to aid in wound healing. He was approved for application of EpiFix advanced wound product, we will continue applications. Discussed proper diet to increase protein intake to aid in wound healing. Recommended Vladimir supplementation. Discussed reducing foods with salty content to aid in edema control. Discussed avoidance of prolonged standing or legs dangling over side of chair/bed. Discussed with patient the depth of the ulcerative site and close proximity to the neurovascular bundle. Discussed with him signs and symptoms of infection. Discussed if he notices redness about the ulcerative site moving up the leg, purulent drainage from the wound site, foul increasing odor from the wound, or if he experiences fever greater than 101 degree, nausea, vomiting, chills/rigor,that these are signs of progressing infection and he should report to the ED to receive IV antibiotics. Patient and voiced understanding of this. The following work up and care recommendations were made: Dressing: EpiFix, Adaptic touch, Steri-Strips, Suprasorb, 3M compression wrap left lower extremity. Wash: Do not get wet Tissue growth optimization: EpiFix Offload: To ensure no pressure to the medial ankle/hindfoot Vascular: DP and PT pulses palpable with adequate capillary fill to digits. Edema: Discussed elevation of lower extremities at times of rest. 3M compression wrap placed. Infection: No signs of infection. Patient currently finishing oral cephalexin. Encouraged to take antibiotic to completion. Pain: May take Tylenol extra strength for discomfort Host factors: Chronic venous insufficiency I answered all the patient's questions. To return to the wound healing center in 1 week or call sooner if the patient has any questions or concerns. 09/17/23 0929 <Electronically signed by Merrill Burns DPM> Cosigner Signature (if applicable): CC: ~ Signed [facility] Work Phone: [phone] Progress note Author Merrill Burns [facility] September 03, 2023 10:11am Note Date/Time September 03, 2023 10:11am [facility] [address] [place] [address] Progress Note - Wound Care 09/03/23 1000 MR#: [id number] Acct: [id number] Name: WELLINGTON GONZALEZ Rep #:[id number] : 1945 78 From: Merrill machado DPM PCP: Dr. Randa Joseph, DO Status:REG RCR Location: History of Present Illness Date of Service: 09/03/23 Chief Complaint: Left medial ankle wound History of Wound: Patient is a 78-year-old male who presents to the wound care center with recurring left lower extremity medial ankle wound. He has PMHx of recurring left lower extremity ulceration secondary to chronic venous insufficiency, history of DVT, obesity, JOSHUA, iron deficient anemia, delayed wound healing, and asthma. He states that he does have compression stockings but his stockings are old. States that approximately 2-1/2 months ago this ulceration did open again to the medial ankle and has been unable to progress inhealing. He was placed on oral antibiotics, cephalexin, and is finishing antibiotic course. Has been applying topical ointments to the wound daily with dressing changes. He did follow with his primary care who did refer him to the wound center due to nonhealing ulceration. He denies trauma to the site. States that the specific site is recurrent with breakdown of skin. Denies N/V/F/chills. No further complaints. 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 Patient states that the compression wrapping has made his legs feel better. He does admit to continued drainage of the wound site. States that he did get his vascular studies performed yesterday. Denies constitutional symptoms. Denies further complaints. Objective Data Objective Data Vital Signs: Vital Signs Temp Pulse Resp BP O2 Del Method 96.8 F L 69 16 146/69 H Room Air 09/03/23 08:25 09/03/23 08:25 09/03/23 08:25 09/03/23 08:25 08/31/23 08:13 Oxygen Delivery Method Room Air Weight: 99.159 kg Body Mass Index (BMI) 28.8 Lab / Micro Data 09/02/23 09:10 09/02/23 09:10 Labs: Laboratory Results - last 24 hr 09/02/23 09:10: Differential Comment SCANNED, Diff Path Review February foll, PT 13.7, INR 1.0, APTT 27.6, Sodium 145, Potassium 3.7, Chloride 109 H, Carbon Dioxide 28.0, Anion Gap 8, BUN 15, Creatinine 0.82, Estim Creat Clear Calc 85.26, Est GFR (MDRD) Af Amer 117, Est GFR (MDRD) Non-Af 97, BUN/Creatinine Ratio 18.3, Glucose 111 H, Calcium 8.3 L, Total Bilirubin 0.30, AST 25, ALT 33, Alkaline Phosphatase 93, Total Protein 7.2, Albumin 3.5, Globulin 3.7, Albumin/Globulin Ratio 0.9, Prealbumin 19.5 L, TSH 3.82 H, Free T4 1.03, Thyroxine (T4) 8.4, Free T3 pg/dL 2.3 Physical Exam Const alert, oriented x3 and no apparent distress General Appearance: cooperative HEENT normocephalic Eyes Eyes Narrative: Wears glasses General Eye: normal appearance of both eyes Neck General: normal visual inspection Lymph Lymphatic: no lymphadenopathy noted and no lymphedema noted Resp normal respiratory effort Cardio regular rate and regular rhythm Extremity normal capillary refill, no joint enlargement, no calf tenderness and no pedal edema Extremity Narrative: Vascular: DP and PT pulses weakly palpable. Capillary fill time to the digits is 5 seconds. Normal temperature gradient. There is absent hair growth to the digits noted. Dermatological: There is ulceration noted to the medial aspect of the left lowerextremity/ankle with mixed fibrotic/granular tissue with serosanguineous drainage. Ulceration is noted to be overlying the neurovascular bundle. Negative Stemmer sign left foot. There is evidence of stasis dermatitis with hyperpigmentation/hemosiderin staining of the left lower extremity. Musculoskeletal: Muscle strength 5 of 5 age-appropriate. Skin no jaundice General Skin Exam: venous stasis and dermatitis Neuro moves all extremities Debridement Note Debridement Note Wound debrided: Left medial ankle Laterality: Left Wound Grade/Stage: Cisneros stage II Type of Debridement: Excisional debridement Anesthesia Used: 5% Lidocaine Gel and - (10 cc 1 % lidocaine plain) Depth: Down to and including healthy tissue and in the subcutaneous layer Percentage of wound debrided: 100 Instrument Used: 5mm curette Tissue Removed: Fibrous, devitalized subcutaneous, biofilm, slough Severity: Fat Layer Exposed Amount of bleeding with debridement: Mild Bleeding Controlled with: Compression and gauze Patient tolerated procedure: Patient tolerated procedure well Post-Debridement Measurements and Additional Note: Post-Debridement Measurements/Treatment LA NENA - Nurse 1 - General Ulcer Assessment Start: 08/27/23 09:10 Freq: Status: Active Protocol: ANAYA Activity Type Activity Date Activity User E-sign Co-sign Detail Recorded Client Recorded Date Recorded By Document 08/27/23 09:13 DL Desktop 08/27/23 09:30 DL Document 08/31/23 08:13 BMF Desktop 08/31/23 08:14 BMF Document 09/03/23 08:25 NRL Desktop 09/03/23 08:37 NRL 08/27/23 08/31/23 09/03/23 09:13 08:13 08:25 WC - Today's Visit Information Type of service Initial Visit Nurse-only Follow-up Visit Visit (Physician/PROVIDER ENROLLMENT SPECIALIST ) Arrival Mode Ambulatory Ambulatory Ambulatory Transfer Assistance None None Patient Identification Verified (Name & Yes Yes Yes ) Patient Requires Transmission-Based No No Precautions Height and Weight Height 6 ft 1 in Weight 99.159 kg Weight in Pounds 218.6 lbs Body Mass Index (BMI) 28.8 28.8 28.8 BMI Classification Overweight Overweight Overweight BSA - Francois 2.23 Vital Signs Temperature (97.8 F-99.1 F) 96.5 F L 96.5 F L 96.8 F L Temperature Source Temporal Temporal Temporal Pulse Rate (60-100) 64 75 69 Pulse Location Monitor Monitor Monitor Respiratory Rate (12-18) 18 16 16 Respiratory rate source Observation Observation Observation Oxygen Delivery Method Room Air Blood Pressure (90/60-120/80) 142/97 H 110/79 146/69 H Blood Pressure Mean (mm Hg) 112 89 94 Source Monitor Monitor Monitor Position Sitting Sitting Blood Pressure Location Left Forearm Left Arm History Since Last Visit- (Skip if this is Patient's initial visit) Have you changed medications since your No No last visit? Any new allergies or adverse reactions No No Had a fall/change in ADL's that may No No increase risk of falls Signs or symptoms of abuse and/or No No neglect since last visit Have you been in the hospital since your No No last visit? Has dressing in place as prescribed Yes Yes Has compression in place as prescribed Yes Yes Has offloadiing in place as prescribed N/A N/A Experienced any changes in pain level or No No management Left Footwear Regular Shoe Regular Shoe Right Footwear Regular Shoe Regular Shoe Pain Scale: 0-10 Numeric Is Patient Pain Free? Yes Yes Yes Lower Extremity Assessment/ Foot Assessment/ Toe Nail Assessment Left -Posterior Tibial Palpable Yes -Posterior Tibial Doppler Multiphasic -Dorsalis Pedis Palpable No -Dorsalis Pedis Doppler Multiphasic -Extremity Color Hyperpigmented, Hemosiderin -Hair Growth on Legs No -Hair Growth on Toes No -Temperature of Extremity Warm -Capillary Refill Greater than 3 Seconds -Dependent Rubor No -Blanched when Elevated No -Lipodermatosclerosis No -Other Deformity No -Prior Foot Ulcer No -Charcot Joint No -Prior Amputation No -Thick Yes -Discolored Yes -Deformed Yes -Improper Length & Hygeine No Right -Posterior Tibial Palpable No -Posterior Tibial Doppler Multiphasic -Dorsalis Pedis Palpable Yes -Dorsalis Pedis Doppler Multiphasic -Extremity Color Hyperpigmented, Hemosiderin -Hair Growth on Legs No -Hair Growth on Toes No -Temperature of Extremity Warm -Capillary Refill Greater than 3 Seconds -Dependent Rubor No -Blanched when Elevated No -Lipodermatosclerosis No -Other Deformity No -Prior Foot Ulcer No -Charcot Joint No -Prior Amputation No -Thick Yes -Discolored Yes -Deformed Yes -Improper Length & Hygeine No Neuropathy Assessment Feet - Top Side and Bottom <Entered> (a) Communication Assessment Preferred language Qatari Able to Read Yes Able to Write Yes Right Hearing Abillity Use of Hearing Aid Left Hearing Abillity Use of Hearing Aid Visual Assistive Devices Glasses Teaching Assessment Preferences Verbal,Written, Demonstration Functional Assessment Recent Decline in Ability to Perform Denies Any Declines Culture/Congregational/Supervisor [employer] Cultural/Congregational Needs that may affect No Treatment Plan Would you allow our hospital post tronic machine operator to No meet you for the purpose of spiritual/ emotional support? Supervisor [employer] to contact place of anabaptism No Teaching: Wound Center *Welcome to the Wound Center -Person Taught Patient (a) 1 - + WC - Nurse 1 - General Ulcer Measurement Start: 08/27/23 09:10 Freq: Status: Active Protocol: Activity Type Activity Date Activity User E-sign Co-sign Detail Recorded Client Recorded Date Recorded By Document 08/27/23 09:13 DL Desktop 08/27/23 09:30 DL Document 08/31/23 08:13 BMF Desktop 08/31/23 08:14 BMF Document 09/03/23 08:25 NRL Desktop 09/03/23 08:37 NRL 08/27/23 08/31/23 09/03/23 09:13 08:13 08:25 Wound Center Nurse 1 #1 L Med Ankle -Combined with other wound No -Current Size (cm) - Length 2.8 -Current Size (cm) - Width 4 -Current Size (cm) - Depth 0.8 -Total Square Cm 11.2 -Photo Taken Yes -Epithelialization Small 1-33% -Undermining/Tunneling No -Circular Undermining No -Exudate Amt Medium Large -Exudate Type Serosanguineous Serosanguineous -Wound Margin Thickened & Distinct, Rolled Under Outline Attached -Granulation Amt None Present (0 Small (1-33%) %) -Granulation Quality Brea -Necrosis Amt Large (67-100%) Medium (34-66%) -Necrotic Tissue Type Adherent Slough Adherent Slough -Structure Exposed N/A -Texture (Megan-wound Skin Appearance) Localized Edema Assessed ,Scarring,Rash -Moisture (Megan-wound Skin Appearance) No Abnormality Assessed -Color (Megan-wound Skin Appearance) Erythema, Assessed Hemosiderin Staining -Temperature (Megan-wound Skin No Abnormality No Abnormality Appearance) (Pt Warm) (Pt Warm) -Tenderness on Palpation (Megan-wound No No Skin Appearance) -Ulcer Cleansing Soap and Water Wound Cleanser -Foul Odor after Cleansing No No -Anesthetic Used 5% Lidocaine 5% Lidocaine Gel Gel Lower Limb Edema Present Yes Yes Left Calf (cm) 40 42.4 40.5 Left Ankle (cm) 23.8 24.5 29.3 WC - Nurse 2 - General Ulcer CM Notes Start: 08/27/23 09:10 Freq: Status: Active Protocol: Activity Type Activity Date Activity User E-sign Co-sign Detail Recorded Client Recorded Date Recorded By Document 08/27/23 17:03 PL [id number] 08/27/23 17:04 PL 08/27/23 17:03 Wound Center Nurse 2 #1 L Med Ankle -Time 10:32 -Correct Patient Yes -Correct Side, Site, Position Yes -Correct Procedure Yes -Procedure Performed Yes -Type of Procedure Debridement -Clinical Debridement Subcutaneous -Tissue Removed Subcutaneous -Post Debridement (cm) - Length 2.5 -Post Debridement (cm) - Width 3.7 -Post Debridement (cm) - Depth 0.5 -Total Square (Post) (cm) 9.25 -Area of Debridement (cm) - Length 2.5 -Area of Debridement (cm) - Width 3.7 -Total Square (Area) (cm) 9.25 -Tunneling No -Undermining/Tunneling No -Circular Undermining No -Wound/Ulcer Outcome Not Healed -Ulcer Cleansing Rinsed/ Irrigated with Saline -Foul Odor after Cleansing No -Bioengineered Tissue No -Bleeding Controlled with Pressure -Treatment Response Procedure Tolerated Well -Debridement - Subq, 1st 20sq cm Yes Pain Scale: 0-10 Numeric Is Patient Pain Free? Yes - Nurse 3 - General Ulcer D/C NN Start: 08/27/23 09:10 Freq: Status: Active Protocol: Activity Type Activity Date Activity User E-sign Co-sign Detail Recorded Client Recorded Date Recorded By Document 08/27/23 10:58 KW Desktop 08/27/23 10:58 KW Document 08/31/23 08:14 [facility] Desktop 08/31/23 08:17 BM Document 09/03/23 09:24 NR Desktop 09/03/23 09:27 NRL 08/27/23 08/31/23 09/03/23 10:58 08:14 09:24 Wound Care Center Nurse 3 #1 L Med Ankle -Ulcer Cleansing Rinsed/ Soap and Water Wound Cleanser Irrigated with Saline -Foul Odor after Cleansing No No -Primary Dressing Applied Aquacel AG 4x4, Aquacel AG 2x2, Coban: 2 Layer Promogran Promogran System,Optilok Abran Matter Abran Matter 6.5x10 -Other Dressing abd -Primary Dressing Covered/Secured with Dry Gauze & Dry Gauze Roll Gauze, Secured with Tape -Other Covering per gm rn -Aquacel AG 2x2 1 -Aquacel AG 4x4 1 -Coban: 2 Layer System 1 -Optilok 6.5x10 1 -Promogran Abran Matter 1 1 Left -Multi-Layered Wrap Application Multi-Layer Multi-Layer Comp - Left ($) Comp - Left ($) -Other applied per gm rn Treatment Response Procedure Tolerated Well Pain Scale: 0-10 Numeric Is Patient Pain Free? Yes Yes Yes WC - Visit Discharge Discharge Condition Stable Stable Stable Ambulatory Status Ambulatory Ambulatory Ambulatory Transportation Private Auto Private Auto Private Auto Accompanied by Medication Reconcilliation completed & No Yes provided to patient/care provider Clinical Summary of Care Provided Yes Yes Notes: PT ARRIVED WITHOUT APPT. CONCERNED THAT 3M WRAP WAS CAUSING DISCOMFORT. 3M WAS IN PLACE, CONSULTED CM PL , DID REMOVE AND APPLY ANOTHER. PT TO CALL IF ANY OTHER ISSUES. ENCOURAGED TO ELEVATE LEGS OFTEN POSSIBLE. PT STATED HE DID FEEL RELIEF W/ REMOVAL OF 3M . Assessment/Plan Assessment/Plan (1) Obesity: CODE(S): E66.9 - Obesity, unspecified (2) Iron deficiency anemia: CODE(S): D50.9 - Iron deficiency anemia, unspecified (3) Venous insufficiency (chronic) (peripheral): CODE(S): I87.2 - Venous insufficiency (chronic) (peripheral) (4) Non-pressure chronic ulcer of left ankle with necrosis of muscle: CODE(S): L97.323 - Non-pressure chronic ulcer of left ankle with necrosis of muscle (5) Delayed wound healing: CODE(S): T14.8XXD - Other injury of unspecified body region, subsequent encounter PLAN: Plan Patient seen and evaluated Left lower extremity: There is ulceration noted to the medial aspect of the leftlower extremity/ankle with mixed fibrogranular tissue with some serosanguineous drainage. Ulceration is noted to be overlying the neurovascular bundle. Negative Stemmer sign left foot. There is evidence of stasis dermatitis with hyperpigmentation/hemosiderin staining of the left lower extremity. Ulceration underwent debridement as noted in the clinical panel above. Ulceration measures 2.9 cm x 4.0 cm x 0.5 cm. No signs of infection. EpiFix graft #1 applied to wound bed and dressed with Adaptic touch and anchored with Steri-Strips. A Suprasorb dressing was applied then followed by a 3M compression wrap applied to the left lower extremity. Patient was instructed tonot get the dressing wet. I discussed continued elevation of the lower extremity at all times of rest to aid in edema control. I discussed once ulceration is healed he is to return to a prescription based compression stocking. Discussed updating stockings every 6 to 9 months to ensure proper uniform compression to treat his chronic venous insufficiency and to reduce recidivism of wound. Discussed importance of serial debridement to aid in wound healing. He was approved for application of EpiFix advanced wound product, we will continue applications. Discussed proper diet to increase protein intake to aid in wound healing. Recommended Vladimir supplementation. Discussed reducing foods with salty content to aid in edema control. Discussed avoidance of prolonged standing or legs dangling over side of chair/bed. Discussed with patient the depth of the ulcerative site and close proximity to the neurovascular bundle. Discussed with him signs and symptoms of infection. Discussed if he notices redness about the ulcerative site moving up the leg, purulent drainage from the wound site, foul increasing odor from the wound, or if he experiences fever greater than 101 degree, nausea, vomiting, chills/rigor,that these are signs of progressing infection and he should report to the ED to receive IV antibiotics. Patient and voiced understanding of this. The following work up and care recommendations were made: Dressing: EpiFix, Adaptic touch, Steri-Strips, Suprasorb, 3M compression wrap left lower extremity. Wash: Do not get wet Tissue growth optimization: EpiFix Offload: To ensure no pressure to the medial ankle/hindfoot Vascular: DP and PT pulses palpable with adequate capillary fill to digits. Edema: Discussed elevation of lower extremities at times of rest. 3M compression wrap placed. Infection: No signs of infection. Patient currently finishing oral cephalexin. Encouraged to take antibiotic to completion. Pain: May take Tylenol extra strength for discomfort Host factors: Chronic venous insufficiency I answered all the patient's questions. To return to the wound healing center in 2 weeks or call sooner if the patient has any questions or concerns. 09/03/23 1011 <Electronically signed by Merrill Burns DPM> Cosigner Signature (if applicable): CC: ~ Signed [facility] Work Phone: [phone] 308-435211-09-2023 History and physical note Author Merrill Burns [facility] August 27, 2023 8:55pm Note Date/Time August 27, 2023 1 0:56am [facility] [address] [place] [address] H&P Exam - Wound Care 08/27/23 1055 MR#: [id number] Acct: [id number] Name: WELLINGTON GONZALEZ Rep #:[id number] : 1945 78 From: Merrill machado DPM PCP: Dr. Randa Joseph, DO Status:REG RCR Location: History of Present Illness Date of Service: 08/27/23 Chief Complaint: Left medial ankle wound History of Wound: Patient is a 78-year-old male who presents to the wound care center with recurring left lower extremity medial ankle wound. He has PMHx of recurring left lower extremity ulceration secondary to chronic venous insufficiency, history of DVT, obesity, JOSHUA, iron deficient anemia, delayed wound healing, and asthma. He states that he does have compression stockings but his stockings are old. States that approximately 2-1/2 months ago this ulceration did open again to the medial ankle and has been unable to progress inhealing. He was placed on oral antibiotics, cephalexin, and is finishing antibiotic course. Has been applying topical ointments to the wound daily with dressing changes. He did follow with his primary care who did refer him to the wound center due to nonhealing ulceration. He denies trauma to the site. States that the specific site is recurrent with breakdown of skin. Denies N/V/F/chills. No further complaints. COUNT INCLUDES THE [facility] Medical History (Updated 08/27/23 @ 13:[address] Merrill Burns, DPM) 2012 femur fracture [facility] Asthma Celiac disease DVT (deep venous thrombosis) Fatigue GERD (gastroesophageal reflux disease) History of back problems Iron deficiency anemia Lab test positive for detection of COVID-19 virus (~04/2020) Left femoral shaft fracture JOSHUA (obstructive sleep apnea) Osteopenia Restless leg syndrome Weight loss Home Medications pantoprazole 40 mg tablet,delayed release 40 mg PO QHS gerd 04/03/14 [History Last Taken 07/15/17] tamsulosin 0.4 mg capsule 0.4 mg PO QHS Enlarged prostate 07/12/17 [History Last Taken 07/15/17] ibuprofen 200 mg capsule 200 mg PO BID PRN Pain 09/10/18 [History Last Taken Unknown] ergocalciferol (vitamin D2) 1,250 mcg (50,000 unit) capsule 50,000 unit PO WE 10/21/19 [History Last Taken Unknown] benralizumab 30 mg/mL subcutaneous syringe (Fasenra) 30 mg subcut Q4W #1 mL 12/28/20 [Rx Last Taken Unknown] levothyroxine 50 mcg tablet 100 mcg PO DAILY 03/21/22 [History Last Taken Unknown] albuterol sulfate 90 mcg/actuation aerosol inhaler 1 - 2 puff inhalation Q4H PRNPRN Sob &/Or Wheezing #8.5 grams 03/25/22 [Rx Last Taken Unknown] budesonide-formoterol HFA 160 mcg-4.5 mcg/actuation aerosol inhaler (Symbicort) 2 puff inhalation BID #1 ea 03/25/22 [Rx Last Taken Unknown] fluticasone propionate 50 mcg/actuation nasal spray,suspension 2 spray NASAL BIDPRN Congestion #16 grams 03/25/22 [Rx Last Taken Unknown] montelukast 10 mg tablet 10 mg PO DAILY #30 tabs 03/25/22 [Rx Last Taken Unknown] timolol 0.5 % eye drops (Betimol) 1 drp EACH EYE BID 08/27/23 [History Last Taken Unknown] Allergy/AdvReac Type Severity Reaction Status Date / Time gluten AdvReac Other Verified 08/24/23 15:05 Family History Father prostate cancer Surgical History (Updated 05/15/22 @ 17:16 by Yadira Johnson) colonoscopy History of cholecystectomy History of colonoscopy (~09/24/20) History of esophagogastroduodenoscopy (EGD) (~09/24/20) History of hernia repair History of repair of hip fracture History of spinal surgery Social History Smoking Status: Former smoker alcohol intake: never substance use type: does not use ROS Constitutional Constitutional: Denies anorexia, chills, fatigue or fever(s) Eyes Eyes: Denies blurry vision, change in vision or double vision ENT HEENT: Denies dysphagia, nasal congestion, nasal discharge or sore throat Cardiovascular Cardiovascular: Denies chest pain, fatigue or palpitations Respiratory/Chest Respiratory/Chest: Denies cough or shortness of breath at rest Gastrointestinal Gastrointestinal: Denies abdominal pain, constipation, diarrhea, hematochezia, nausea or vomiting Genitourinary Genitourinary: Denies dysuria or hematuria Musculoskeletal Musculoskeletal: Denies joint pain, joint stiffness or joint swelling Integumentary Integumentary: Denies lesions, pruritus or rash Neurologic Neurologic: Denies dizziness, numbness or seizures Psychiatric Psychiatric: Denies depression Endocrine Endocrinology: Denies cold intolerance or heat intolerance Hematologic/Lymphatic Hematologic/Lymphatic: Denies easy bleeding or easy bruising Vital Signs Vital Signs Vital Signs: 08/27/23 09:13 Temperature 96.5 F L Temperature Source Temporal Pulse Rate 64 Respiratory Rate 18 Blood Pressure 142/97 H Blood Pressure Mean 112 Blood Pressure Source Monitor Weight Weight: 99.159 kg Body Mass Index (BMI) 28.8 Physical Exam Const alert, oriented x3 and no apparent distress General Appearance: cooperative HEENT normocephalic Eyes Eyes Narrative: Wears glasses General Eye: normal appearance of both eyes Neck General: normal visual inspection Lymph Lymphatic: no lymphadenopathy noted and no lymphedema noted Resp normal respiratory effort Cardio regular rate and regular rhythm Extremity normal capillary refill, no joint enlargement, no calf tenderness and no pedal edema Extremity Narrative: Vascular: DP and PT pulses weakly palpable. Capillary fill time to the digits is 5 seconds. Normal temperature gradient. There is absent hair growth to the digits noted. Dermatological: There is ulceration noted to the medial aspect of the left lowerextremity/ankle with necrotic eschar and thick fibrous tissue. Wound base does appear to be dry. Ulceration is noted to be overlying the neurovascular bundle. Negative Stemmer sign left foot. There is evidence of stasis dermatitis with hyperpigmentation/hemosiderin staining of the left lower extremity. Musculoskeletal: Muscle strength 5 of 5 age-appropriate. Skin no jaundice General Skin Exam: venous stasis and dermatitis Neuro moves all extremities Debridement Note Debridement Note Wound debrided: Left medial ankle Laterality: Left Wound Grade/Stage: Cisneros stage II Type of Debridement: Excisional debridement Anesthesia Used: 5% Lidocaine Gel and - (10 cc 1% lidocaine plain) Depth: Down to and including healthy tissue and in the subcutaneous layer Percentage of wound debrided: 100 Instrument Used: 5mm curette Tissue Removed: Fibrous, devitalized subcutaneous, biofilm, slough Severity: Fat Layer Exposed Amount of bleeding with debridement: Mild Bleeding Controlled with: Compression and gauze Patient tolerated procedure: Patient tolerated procedure well Post-Debridement Measurements and Additional Note: Post-Debridement Measurements/Treatment WC - Nurse 1 - General Ulcer Assessment Start: 08/27/23 09:10 Freq: Status: Active Protocol: LA NENA.JESUS Activity Type Activity Date Activity User E-sign Co-sign Detail Recorded Client Recorded Date Recorded By Document 08/27/23 09:13 DL Desktop 08/27/23 09:30 DL 08/27/23 09:13 WC - Today's Visit Information Type of service Initial Visit Arrival Mode Ambulatory Transfer Assistance None Patient Identification Verified (Name & Yes ) Patient Requires Transmission-Based No Precautions Height and Weight Height 6 ft 1 in Weight 99.159 kg Weight in Pounds 218.6 lbs Body Mass Index (BMI) 28.8 BMI Classification Overweight BSA - Frnacois 2.23 Vital Signs Temperature (97.8 F-99.1 F) 96.5 F L Temperature Source Temporal Pulse Rate (60-100) 64 Pulse Location Monitor Respiratory Rate (12-18) 18 Respiratory rate source Observation Blood Pressure (90/60-120/80) 142/97 H Blood Pressure Mean 112 Source Monitor Pain Scale: 0-10 Numeric Is Patient Pain Free? Yes Lower Extremity Assessment/ Foot Assessment/ Toe Nail Assessment Left -Posterior Tibial Palpable Yes -Posterior Tibial Doppler Multiphasic -Dorsalis Pedis Palpable No -Dorsalis Pedis Doppler Multiphasic -Extremity Color Hyperpigmented, Hemosiderin -Hair Growth on Legs No -Hair Growth on Toes No -Temperature of Extremity Warm -Capillary Refill Greater than 3 Seconds -Dependent Rubor No -Blanched when Elevated No -Lipodermatosclerosis No -Other Deformity No -Prior Foot Ulcer No -Charcot Joint No -Prior Amputation No -Thick Yes -Discolored Yes -Deformed Yes -Improper Length & Hygeine No Right -Posterior Tibial Palpable No -Posterior Tibial Doppler Multiphasic -Dorsalis Pedis Palpable Yes -Dorsalis Pedis Doppler Multiphasic -Extremity Color Hyperpigmented, Hemosiderin -Hair Growth on Legs No -Hair Growth on Toes No -Temperature of Extremity Warm -Capillary Refill Greater than 3 Seconds -Dependent Rubor No -Blanched when Elevated No -Lipodermatosclerosis No -Other Deformity No -Prior Foot Ulcer No -Charcot Joint No -Prior Amputation No -Thick Yes -Discolored Yes -Deformed Yes -Improper Length & Hygeine No Neuropathy Assessment Feet - Top Side and Bottom <Entered> (a) Communication Assessment Preferred language Qatari Able to Read Yes Able to Write Yes Right Hearing Abillity Use of Hearing Aid Left Hearing Abillity Use of Hearing Aid Visual Assistive Devices Glasses Teaching Assessment Preferences Verbal,Written, Demonstration Functional Assessment Recent Decline in Ability to Perform Denies Any Declines Culture/Congregational/Supervisor [employer] Cultural/Congregational Needs that may affect No Treatment Plan Would you allow our hospital post tronic machine operator to No meet you for the purpose of spiritual/ emotional support? Supervisor [employer] to contact place of anabaptism No Teaching: Wound Center *Welcome to the Wound Center -Person Taught Patient (you) 1 - + WC - Nurse 1 - General Ulcer Measurement Start: 08/27/23 09:10 Freq: Status: Active Protocol: Activity Type Activity Date Activity User E-sign Co-sign Detail Recorded Client Recorded Date Recorded By Document 08/27/23 09:13 DL Desktop 08/27/23 09:30 DL 08/27/23 09:13 Wound Center Nurse 1 #1 L Med Ankle -Current Size (cm) - Length 2.8 -Current Size (cm) - Width 4 -Current Size (cm) - Depth 0.8 -Total Square Cm 11.2 -Photo Taken Yes -Exudate Amt Medium -Exudate Type Serosanguineous -Wound Margin Thickened & Rolled Under -Granulation Amt None Present (0 %) -Necrosis Amt Large (67-100%) -Necrotic Tissue Type Adherent Slough -Structure Exposed N/A -Texture (Megan-wound Skin Appearance) Localized Edema ,Scarring,Rash -Moisture (Megan-wound Skin Appearance) No Abnormality -Color (Megan-wound Skin Appearance) Erythema, Hemosiderin Staining -Temperature (Megan-wound Skin No Abnormality Appearance) (Pt Warm) -Tenderness on Palpation (Megan-wound No Skin Appearance) -Ulcer Cleansing Soap and Water -Foul Odor after Cleansing No -Anesthetic Used 5% Lidocaine Gel Left Calf (cm) 40 Left Ankle (cm) 23.8 Assessment/Plan Assessment/Plan (1) Obesity: CODE(S): E66.9 - Obesity, unspecified (2) Iron deficiency anemia: CODE(S): D50.9 - Iron deficiency anemia, unspecified (3) Venous insufficiency (chronic) (peripheral): CODE(S): I87.2 - Venous insufficiency (chronic) (peripheral) (4) Non-pressure chronic ulcer of left ankle with necrosis of muscle: CODE(S): L97.323 - Non-pressure chronic ulcer of left ankle with necrosis of muscle (5) Delayed wound healing: CODE(S): T14.8XXD - Other injury of unspecified body region, subsequent encounter PLAN: Plan Patient seen and evaluated Left lower extremity: There is ulceration noted to the medial aspect of the leftlower extremity/ankle with necrotic eschar and thick fibrous tissue. Wound basedoes appear to be dry. Ulceration is noted to be overlying the neurovascular bundle. Negative Stemmer sign left foot. There is evidence of stasis dermatitis with hyperpigmentation/hemosiderin staining of the left lower extremity. Ulceration underwent debridement as noted in the clinical panel above. Ulceration measures 2.5 cm x 3.7 cm x 0.5 cm. No signs of infection. Abran applied to the wound base and dressed with Aquacel Ag and dry sterile dressing. A 3M compression wrap was applied to the left lower extremity. Patient was instructed to not get the dressing wet. I discussed continued elevation of the lower extremity at all times of rest to aid in edema control. I discussed once ulceration is healed he is to return to a prescription based compression stocking. Discussed updating stockings every 6 to 9 months to ensure proper uniform compression to treat his chronic venous insufficiency and to reduce recidivism of wound. Discussed importance of serial debridement to aid in wound healing. We will seek application for EpiFix advanced wound product for application at next visit. Discussed proper diet to increase protein intake to aid in wound healing. Recommended Vladimir supplementation. Discussed reducing foods with salty content to aid in edema control. Discussed avoidance of prolonged standing or legs dangling over side of chair/bed. Discussed with patient the depth of the ulcerative site and close proximity to the neurovascular bundle. Discussed with him signs and symptoms of infection. Discussed if he notices redness about the ulcerative site moving up the leg, purulent drainage from the wound site, foul increasing odor from the wound, or if he experiences fever greater than 101 degree, nausea, vomiting, chills/rigor,that these are signs of progressing infection and he should report to the ED to receive IV antibiotics. Patient and voiced understanding of this. The following work up and care recommendations were made: Dressing: Abran/Aquacel AG, dry sterile dressing, 3M compression wrap left lower extremity. Wash: Do not get wet Tissue growth optimization: Abran/Aquacel AG Offload: To ensure no pressure to the medial ankle/hindfoot Vascular: DP and PT pulses palpable with adequate capillary fill to digits. Edema: Discussed elevation of lower extremities at times of rest. 3M compression wrap placed. Infection: No signs of infection. Patient currently finishing oral cephalexin. Encouraged to take antibiotic to completion. Pain: May take Tylenol extra strength for discomfort Host factors: Chronic venous insufficiency I answered all the patient's questions. To return to the wound healing center in 1 week or call sooner if the patient has any questions or concerns. 08/27/232054 <Electronically signed by Merrill Burns DPM> Cosigner Signature (if applicable): CC: ~ Signed [facility] Work Phone: 1(239) 406-597707-05-2023 Discharge summary Author Joan Muñoz [facility] April 22, 2023 3:24pm Note Date/Time April 22, 2023 3:24p m [facility] Physical Therapy [facility] [place] [address] / REHABILITATION SERVICES DISCHARGE SUMMARY MR#: [id number] Acct: [id number] Name: WELLINGTON GONZALEZ Rep #: [id number] : 1945 78 From: Joan Muñoz MP T Referring Dr.: Dr. Alvaro Moss MD Status: REG R Insurance: MEDICARE PART A B [facility] Patient Information Patient Information: WELLINGTON GONZALEZ was seen in my office for initial evaluation on 11/28/22. The following Plan of Care was established for this patient: POC Established Initial Frequency: 2x /Week Initial Duration: 6 Weeks Anticipated Interventions Patient/Client Instruction: Educate patient on: Condition and Plan of Care For the Purpose of:: To decrease pain, To decrease swelling/inflammation, To increase ROM, To improve nutrient delivery to tissue, To improve muscle performance and motor function, To improve ability to perform ADL's, To increasetolerance to activity/condition/position, To improve performance and independence with ADL's, To decrease level of supervision to perform tasks, To improve ability of physical actions for home/community/work/leisure, To improve gait and locomotor functions, To improve health of tissue, To decrease soft tissue restriction, To increase flexibility/ROM, To improve endurance, To improve balance and To improve safety with gait Therapeutic Exercise to Include: Strength training, Endurance training, Balance training, Body mechanics, Postural training, Flexibilty training, Gait and locomotor training, Neuromotor development, Passive ROM and Active ROM For the Purpose of:: To decrease pain, To decrease swelling/inflammation, To increase ROM, To improve nutrient delivery to tissue, To increase oxygenation perfusion, To improve muscle performance and motor function, To improve ability to perform ADL's, To increase tolerance to activity/condition/position, To improve performance and independence with ADL's, To decrease level of supervision to perform tasks, To improve ability of physical actions for home/community/work/leisure, To improve gait and locomotor functions, To improvehealth of tissue, To decrease soft tissue restriction, To increase flexibility/ROM, To improve endurance, To improve balance, To improve safety with gait and To assume or resume ADL's Functional Training to Include: Gait training For the Purpose of:: To improve gait and locomotor functions, To improve balanceand To improve safety with gait Last Seen Last Seen: This patient was last seen in our office 03/05/23. Pertinent comments regardingtheir Physical therapy will appear below: Pt did not show up for his last scheduled appt and will be discharged at this time time. Pt was making progress in PT. DC PT At this point I will be discontinuing this patient from physical therapy. I would be happy to see this patient again in the future if found appropriate by the physician. Thank you! DEB Villalobos Balance/Gait/Functional tests Balance/Special Test Scores Functional Gait Assessment Score: 8 % Disability: 73.3400 Lower Extremity Functional Score: 48 <Electronically signed by Joan Muñoz MPT> 04/22/23 1524 CC: Dr. Randa Joseph, DO; Dr. Alvaro Moss MD ~ Signed [facility] Work Phone: [phone]) 472-982904-29-2023 History of Present illness Narrative* Renee Conde APRN.PROVIDER ENROLLMENT SPECIALIST - 02/14/2023 11:13 AM EDT Subjective HPI Wellington presents today with 5 days hx of cough and congestion increased over the last two days, has hxof asthma has been using abuterol twice daily [...] OCD LESION FEMORAL CONDYLE 2011 left femor- [place] PAST SURGICAL HISTORY OF several eye surgeries, [...] 2 Sprays in each nostril once daily.^Disp: 1Bottle^Rfl: 6 albuterol HFA (PROAIR HFA) 90 mcg/actuation [...] respiratory distress report to ED Renee Conde APRN.CNP [facility] Instructions* Patient Instructions* Jaqui Felton APRN.CNP - 10/20/2022 4:56 PM EST ASSESSMENT/PLAN: 1. Lower resp. tract infection - ICD9: 519.8, ICD10: J22 (primary diagnosis) - Discussed supportive care - Limit exposure to smoke and other inhaled irritants - Discussed possible red flags and when to seek medical attention - Follow up in 3-5 days or sooner if no better or worse -If you experience chest pain/shortness of breath go to ER documented in this [facility] History of Present illness Narrative* Jaqui Felton APRN.CNP - 10/20/2022 4:25 PM EST Subjective HPI HPI Wellington Gonzalez is a 77 year old male who presents today for CC of cough, congestion, h/a, st, body aches. This started 5 days ago/worsening past few days. Has tried otc medication and asthma medicsaiton. Symptoms are worsened by nothing. Risk factors hx of moderate+ asthma. Nonsmoker. Seen in [facility] care out of [facility], told has flu. .Patient presents with: Chest Congestion: headache, cough, sore throat, bodyaches x 5 days PAST MEDICAL HISTORY Diagnosis Date Anemia Asthma [...] OCD LESION FEMORAL CONDYLE 2011 left femor- [place] PAST SURGICAL HISTORY OF several eye surgeries, [...] 2 Sprays in each nostril once daily.^Disp: 1Bottle^Rfl: 6 albuterol HFA (PROAIR HFA) 90 mcg/actuation inhaler^Inhale 2 Puffs as instructed every 6 hours as needed.^Disp: 1 Inhaler^Rfl: 2 FAMILY HISTORY Problem Relation Age of Onset [...] Types: Cigarettes Quit date: 10/19/1967 Years since quittin.0 Smokeless tobacco: Never Vaping Use Vaping Use: Never used Substance Use Topics Alcohol use: No Drug use: No Review of Systems Constitutional: Positive for fever. HENT: Positive for congestion and sore throat. Negative for ear pain and nosebleeds. Respiratory: Positive for cough. Negative for shortness of breath and wheezing. Cardiovascular: Negative for chest pain. Gastrointestinal: Negative for diarrhea and vomiting. Musculoskeletal: Negative for neck pain. Skin: Negative for itching and rash. Objective Blood pressure 122/70, pulse 86, temperature 37.7 C (99.8 F), resp. rate 16, weight 108.4 kg (239 lb), SpO2 96 %. Physical Exam Constitutional: General: He is not in acute distress. Appearance: He is not toxic-appearing or diaphoretic. HENT: Head: Normocephalic and atraumatic. Cardiovascular: Rate and Rhythm: Normal rate and regular rhythm. Heart sounds: Normal heart sounds, S1 normal and S2 normal. Pulmonary: Effort: Pulmonary effort is normal. Breath sounds: Wheezing (scattered bilat) and rhonchi (scattered bilat) present. No decreased breath sounds or rales. Lymphadenopathy: Cervical: No cervical adenopathy. Right cervical: No superficial cervical adenopathy. Left cervical: No superficial cervical adenopathy. Neurological: Mental Status: He is alert and oriented to person, place, and time. Gait: Gait is intact. ASSESSMENT/PLAN: 1. Lower resp. tract infection - ICD9: 519.8, ICD10: J22 (primary diagnosis) No xray st time of exam. - Discussed supportive care - Limit exposure to smoke and other inhaled irritants - Discussed possible red flags and when to seek medical attention - Follow up in 3-5 days or sooner if no better or worse -If you experience chest pain/shortness of breath go to ER - PREDNISONE 20 MG TABLET - DOXYCYCLINE MONOHYDRATE 100 MG TABLET 2. History of asthma - ICD9: V12.69, ICD10: Z87.09 Steroid ordered, continue inhalers, f/u with pcp if s/s persist 3 days. - PREDNISONE 20 MG TABLET Jaqui Felton APRN.JASON documented in this [facility]Mer[facility]30[facility] Instructions* Patient Instructions* Teagan Peraza PA-C - 09/17/2022 10:19 AM EST The following instructions are important for you related to your office visit today with the [facility] General Surgeons. INSTRUCTIONS FOLLOWING YOUR RECENT HERNIA SURGERY You should be returning to your regular diet, If you have having persistent issues with tolerating your diet, please contact our office It is not unusual to have incisional pain for the first 1-2 weeks following surgery. If this persists beyond 2 weeks, contact the office You may return to your regular activities. You may drive if you are no longer taking narcotic pain medication. Climbing stairs is fine. Walking in encouraged. Sitting up from bed may be uncomfortable. Sitting up using your lateral abdominal muscles (sitting up sideways) is usually more comfortable. You should perform no lifting greater than 20lbs for the next 6-7 weeks. Usually 8 weeks total fromthe date of surgery. It is not unusual to have loose stools following surgery. This is usually self limited and related to the antibiotics that were given during your surgical procedure. Fiber supplementation and yogurt with active cultures may help you return to regular bowel activity. If you note loose stools persisting for over 2 weeks, or significant cramping or loose bloody stools, contact the office immediately. Contact the office immediately if any of your incisions become increasingly tender, red or have drainage. Again, if you have any difficulties or concerns, contact our office immediately. If you note any additional difficulties, questions, or concerns, you should contact our office immediately @ [phone] and ask to be transferred to the General Surgery department. documented in this encounterMer[facility]11-30-[facility]22 History of Present illness Narrative* Teagan Peraza PA-C - 09/17/2022 10:04 AM EST FOLLOW UP VISIT - HERNIA NAME: Wellington Cooper [facility] NO.: [id number] DATE OF SERVICE: 09/17/2022 : 1945 REFERRING PHYSICIAN: Randa Joseph DO Wellington is a patient I am following with Dr. Mayer for a left inguinal hernia. Dr. Mayer performedan open left inguinal hernia repair with mesh on 09/10/22 at [facility]. The patient currentlynotes no major complaints. His appetite has been good. He denies fever, chills or abdominal pain. He does note some mild incisional discomfort. he notes no bulges at the operative site VITALS: Blood pressure 138/74, pulse 72, temperature 36.3 C (97.3 F), height 185.4 cm (6' 1), weight 110.9 kg (244 lb 9.6 oz), SpO2 98 %. General: patient is alert, cooperative, pleasant and in no acute distress On examination, the abdomen is benign. The incision is healing well without signs of infection or inflammation. There are no signs of recurrent hernia formation. Assessment IMPRESSION: status post open left inguinal hernia repair with mesh PLAN: If the patient notes any problems, he should contact me immediately. he may return to his regular activities as tolerated, with the exception of no lifting greater than 20 pounds for the next 7 weeks. If patient feels the urge to cough or sneeze, they should brace against the repair site with theirhands or a pillow. Diagnoses: (Z98.890, Z87.19) S/P hernia repair (primary encounter diagnosis) Return to Clinic: The patient is instructed to follow-up with me as needed. Patient verbalized understanding of all above and agreed with the plan. Teagan Peraza PA-C documented in this encounterMer[facility]11-23-2022 NoteHNO ID: [id number] Author: Saturnino Valdovinos RN Service: Nursing Author Type: Registered Nurse Type: Nursing Progress Note Filed: 09/10/2022 3:46 PM Note Text: Pt up at bedside, ambulated to bathroom. Voided q/s returned to [facility]11-23-2022 NoteHNO ID: [id number] Author: Deborah Larry APRN.SOLUTION CONSULTANT Service: Anesthesiology Author Type: Nurse Clerk Funeral Detail Type: Anesthesia Procedure Notes Filed: 09/10/2022 1:11 PM Note Text: ANESTHESIOLOGY PROCEDURE NOTE Airway General Information Procedure Start Time/Medication Administration: 09/10/2022 1:00 PM Patient location during procedure: OR Timeout Performed Pre-procedure: timeout performed Consent Obtained: Yes Patient identity confirmed: arm band and patient Staffing SOLUTION CONSULTANT: Deborah Larry APRN.SOLUTION CONSULTANT Indications and Patient Condition Indications for airway management: anesthesia Preoxygenated: yes anesthesia circuit Patient position: sniffing Method: asleep Cricoid Pressure: Yes Manual In-Line Stabilization: No Difficult Mask: No Final Airway Details Final airway type: endotracheal airway Final Endotracheal Airway: ETT Cuffed: yes Successful intubation technique: direct laryngoscopy Blade: Johnny Blade size: #4 ETT size (mm): 7.5 Measured from: lips Measurement (cm): 22 Placement verified by: chest auscultation and capnometry Cormack-Lehane Classification: grade I - full view of glottis Number of attempts at approach: 1 Failed airway: no Unrecognized esophageal intubation: no Airway not difficult SIGNATURE: Deborah Larry APRN.CRNA PATIENT NAME: Wellington Gonzalez DATE: September 10, 2022 TIME: 1:10 PM CSN: [id number] History of Past illness Narrative* Problem Noted Date Resolved Date Left inguinal hernia 09/10/2022 09/10/2022 Acute gastritis without mention of hemorrhage 01/04/2015 Abdominal pain, epigastric 01/04/201501/04 documented as of this encounter (statuses as of 09/23/2022) [facility] History of Past illness Narrative* Problem Noted Date Resolved Date Left inguinal hernia 09/10/2022 09/10/2022 Acute gastritis without mention of hemorrhage 01/04/2015 Abdominal pain, epigastric 01/04/201501/04 documented as of this encounter (statuses as of 10/23/2022) [facility] History of Past illness Narrative* Problem Noted Date Resolved Date Left inguinal hernia 09/10/2022 09/10/2022 Acute gastritis without mention of hemorrhage 01/04/2015 Abdominal pain, epigastric 01/04/201501/04 documented as of this encounter (statuses as of 02/14/2023) [facility] History of Present illness Narrative* Maxx Mayer MD - 08/04/2022 2:29 PM EDT HISTORY AND PHYSICAL Wellington Gonzalez 1945 REFERRING PHYSICIAN: Randa Joseph DO CHIEF [...] OCD LESION FEMORAL CONDYLE 2011 left femor- [place] PAST SURGICAL HISTORY OF several eye surgeries, [...] entered by the nurse and reviewed by nc Nursing Notes: Shanti Lei LPN 08/04/2022 2:28 [...] screening? N/A Last Colonoscopy: Unknown Shanti Quique LOMAX PHYSICAL EXAMINATION: General: The patient is 77 [...] hernia repair with mesh - recurrent - [id number] Anticipated Anesthetic: General Patient weight: Blood pressure 130/70, pulse 80, temperature 36.6 C (97.9 F), temperature source Temporal, resp. rate 16, height 182.9 cm (6'), weight 112.9 kg (249 lb), SpO2 95 %. BMI: Body mass index is 33.77 kg/m . Planned antibiotic: Ancef 2gm IVPB rn lactation consultant to OR SCDs needed - Yes [...] as indicated on the consent form. Maxx Mayer III, MD documented in this encounterMer[facility]10-[facility]-2022 Nurse Note* Shanti Lei SALES OPERATIONS ANALYST - 08/04/2022 2:22 PM EDT REVIEW OF [...] Unknown Shanti Lei LPN documented in this encounterMer[facility]03-19-2015 History of Past illness Narrative* Problem Noted Date Resolved Date Acute gastritis without mention of hemorrhage 01/04/2015 Abdominal pain, epigastric 01/04/201501/04 documented as of this encounter (statuses as of 08/04/2022) [facility] note* Diagnosis Onset Date Resolution Status Obesity acute JOSHUA (obstructive sleep apnea) acute Severe persistent asthma, uncomplicated acute [facility] Work Phone: Evaluation noteNo assessment information available [facility] Work Phone: Evalukvqvs note* Diagnosis Left inguinal hernia- Primary Inguinal hernia without mention of obstruction or gangrene, unilateral or unspecified, (not specified as recurrent) documented in this encounter [facility] note* Diagnosis S/P hernia repair- Primary Other postprocedural status documented in this encounter [facility] note* Diagnosis Lower resp. 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 acute Obesity acute Iron deficiency anemia chron ic Venous insufficiency (chronic) (peripheral) chronic [facility] Work Phone: Evaluation note* Diagnosis Onset Date Resolution Status Delayed wound healing acute 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 acute Obesity acute Iron deficiency anemia chron ic Venous insufficiency (chronic) (peripheral) chronic JOSHUA (obstructive sleep apnea) acute Severe persistent asthma, uncomplicated acute Delayed wound healing acute 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 acute Obesity acute Iron deficiency anemia chron ic Venous insufficiency (chronic) (peripheral) chronic [facility] Work Phone: Evaluation note* Diagnosis Onset Date Resolution Status Delayed wound healing acute 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 acute Obesity acute Iron deficiency anemia chron ic Venous insufficiency (chronic) (peripheral) chronic JOSHUA (obstructive sleep apnea) acute Severe persistent asthma, uncomplicated acute Delayed wound healing acute 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 acute Obesity acute Iron deficiency anemia chron ic Venous insufficiency (chronic) (peripheral) chronic Delayed wound healing acute 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 acute Obesity acute Iron deficiency anemia chron ic Venous insufficiency (chronic) (peripheral) chronic [facility] Work Phone: Evaluation note* Diagnosis Onset Date Resolution Status Delayed wound healing acute 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 acute Obesity acute Iron deficiency anemia chron ic Venous insufficiency (chronic) (peripheral) chronic JOSHUA (obstructive sleep apnea) acute Severe persistent asthma, uncomplicated acute Delayed wound healing acute 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 acute Obesity acute Iron deficiency anemia chron ic Venous insufficiency (chronic) (peripheral) chronic Delayed wound healing acute 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 acute Obesity acute Iron deficiency anemia chron ic Venous insufficiency (chronic) (peripheral) chronic Bacterial infection due to Pseudomonas acute [facility] Work Phone: Evaluation note* Diagnosis Onset Date Resolution Status Delayed wound healing acute 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 acute Obesity acute Iron deficiency anemia chron ic Venous insufficiency (chronic) (peripheral) chronic JOSHUA (obstructive sleep apnea) acute Severe persistent asthma, uncomplicated acute Delayed wound healing acute 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 acute Obesity acute Iron deficiency anemia chron ic Venous insufficiency (chronic) (peripheral) chronic Bacterial infection due to Pseudomonas acute Delayed wound healing acute 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 acute Obesity acute Iron deficiency anemia chron ic Venous insufficiency (chronic) (peripheral) chronic [facility] Work Phone: Evaluation note* Diagnosis Onset Date Resolution Status Delayed wound healing acute 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 acute Obesity acute Iron deficiency anemia chron ic Venous insufficiency (chronic) (peripheral) chronic JOSHUA (obstructive sleep apnea) acute Severe persistent asthma, uncomplicated acute Delayed wound healing acute 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 acute Obesity acute Iron deficiency anemia chron ic Venous insufficiency (chronic) (peripheral) chronic Bacterial infection due to Pseudomonas acute Delayed wound healing acute 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 acute Obesity acute Iron deficiency anemia chron ic Venous insufficiency (chronic) (peripheral) chronic Venous insufficiency (chronic) (peripheral) chronic Bacterial infection due to Pseudomonas acute Delayed wound healing acute 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 acute Obesity acute Iron deficiency anemia chron ic Venous insufficiency (chronic) (peripheral) chronic [facility] Work Phone: Evaluation note* Diagnosis Onset Date Resolution Status Delayed wound healing acute 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 acute Obesity acute Iron deficiency anemia chron ic Venous insufficiency (chronic) (peripheral) chronic JOSHUA (obstructive sleep apnea) acute Severe persistent asthma, uncomplicated acute Delayed wound healing acute 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 acute Obesity acute Iron deficiency anemia chron ic Venous insufficiency (chronic) (peripheral) chronic Bacterial infection due to Pseudomonas acute Delayed wound healing acute 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 acute Obesity acute Iron deficiency anemia chron ic Venous insufficiency (chronic) (peripheral) chronic Venous insufficiency (chronic) (peripheral) chronic Bacterial infection due to Pseudomonas acute Delayed wound healing acute 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 acute Obesity acute Iron deficiency anemia chron ic Venous insufficiency (chronic) (peripheral) chronic Delayed wound healing acute 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 acute Obesity acute Iron deficiency anemia chron ic Venous insufficiency (chronic) (peripheral) chronic [facility] Work Phone: Evaluation note* Diagnosis Onset Date Resolution Status Delayed wound healing acute 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 acute Obesity acute Iron deficiency anemia chron ic Venous insufficiency (chronic) (peripheral) chronic JOSHUA (obstructive sleep apnea) acute Severe persistent asthma, uncomplicated acute Delayed wound healing acute 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 acute Obesity acute Iron deficiency anemia chron ic Venous insufficiency (chronic) (peripheral) chronic Bacterial infection due to Pseudomonas acute Delayed wound healing acute 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 acute Obesity acute Iron deficiency anemia chron ic Venous insufficiency (chronic) (peripheral) chronic Venous insufficiency (chronic) (peripheral) chronic Bacterial infection due to Pseudomonas acute Delayed wound healing acute 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 acute Obesity acute Iron deficiency anemia chron ic Venous insufficiency (chronic) (peripheral) chronic Delayed wound healing acute 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 acute Obesity acute Iron deficiency anemia chron ic Venous insufficiency (chronic) (peripheral) chronic Ulcer of extremity due to chronic venous insufficiency acute [facility] Work Phone: Evaluation note* Diagnosis Onset Date Resolution Status JOSHUA (obstructive sleep apnea) acute Severe persistent asthma, uncomplicated acute Delayed wound healing acute 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 acute Obesity acute Iron deficiency anemia chron ic Venous insufficiency (chronic) (peripheral) chronic Bacterial infection due to Pseudomonas acute Delayed wound healing acute 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 acute Obesity acute Iron deficiency anemia chron ic Venous insufficiency (chronic) (peripheral) chronic Venous insufficiency (chronic) (peripheral) chronic Bacterial infection due to Pseudomonas acute Delayed wound healing acute 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 acute Obesity acute Iron deficiency anemia chron ic Venous insufficiency (chronic) (peripheral) chronic Delayed wound healing acute 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 acute Obesity acute Iron deficiency anemia chron ic Venous insufficiency (chronic) (peripheral) chronic Ulcer of extremity due to chronic venous insufficiency acute Delayed wound healing acute 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 acute Obesity acute Ulcer of extremity due to chronic venous insufficiency acute Venous insufficiency (chronic) (peripheral) chronic [facility] Work Phone: Evaluation note* Diagnosis Onset Date Resolution Status Bacterial infection due to Pseudomonas acute Delayed wound healing acute 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 acute Obesity acute Iron deficiency anemia chron ic Venous insufficiency (chronic) (peripheral) chronic Venous insufficiency (chronic) (peripheral) chronic Bacterial infection due to Pseudomonas acute Delayed wound healing acute 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 acute Obesity acute Iron deficiency anemia chron ic Venous insufficiency (chronic) (peripheral) chronic Delayed wound healing acute 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 acute Obesity acute Iron deficiency anemia chron ic Venous insufficiency (chronic) (peripheral) chronic Ulcer of extremity due to chronic venous insufficiency acute Delayed wound healing acute 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 Pre-operative examination- Primary Preoperative examination, unspecified Restless legs syndrome (RLS) Moderate persistent asthma without complication Unspecified asthma Aortic root dilatation (HCC) Thoracic aortic ectasia Benign prostatic hyperplasia without lower urinary tract symptoms Cervical myelopathy (HCC) Cervical spondylosis with myelopathy Deep vein thrombosis (DVT) of left lower extremity, unspecified chronicity, unspecified vein (HCC) Gastroesophageal reflux disease, unspecified whether esophagitis present Osteoporosis, unspecified osteoporosis type, unspecified pathological fracture presence Status post total replacement of hip, unspecified laterality JOSHUA (obstructive sleep apnea) Obstructive sleep apnea (adult) (pediatric) 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 [place] [facility] (n[facility] Diagnostic Procedure Only (Urgent) - Closed Specialty Diagnoses / Procedures Referred By Contac t Referred To Contact XR IMAGING Diagnoses Injury of right shoulder, initial encounter Procedures XR SHOULDER GENERAL 3V OR MORE AP/TRUE AP/OTHER RIGHT RADEX SHOULDER COMPLETE MINIMUM 2 VIEWS Jaqui Felton APRN.PROVIDER ENROLLMENT SPECIALIST [address] [place] [address] [place] [address] Referral ID Status Reason Start Date Expiration Date V isits Requested Visits Authorized [id number] Closed Auto-Generate d Referral 08/08/2024 09/07/2025 [address] [facility] [address] [facility] (narrative)No reason for referral information availableWUK [facility] Work Phone: Reason for visit Narrative* Diagnostic Procedure Only (Urgent) - Closed Specialty Diagnoses / Procedures Referred By Contac t Referred To Contact XR IMAGING Diagnoses Injury of right shoulder, initial encounter Procedures XR SHOULDER GENERAL 3V OR MORE AP/TRUE AP/OTHER RIGHT RADEX SHOULDER COMPLETE MINIMUM 2 VIEWS Jaqui Felton APRN.CNP [address] [place] [address] [place] [address] Referral ID Status Reason Start Date Expiration Date V isits Requested Visits Authorized [id number] Closed Auto-Generate d Referral 08/08/2024 09/07/2025 [address] [facility] Summary Purpose Family History No Family History Records Found Relationship Condition Age at Onset Recorded Date/T yoni father Unknown Advance Directives No Advanced Directives Records Found Advance Directive Response Recorded Date/ Time Advance Directives No November 23, 2020 3:13pm Living Will No November 23 3:13pm Power of Baby Formula Worker No November 23, 2020 3:13pm Advance Directive Response Recorded Date/ Time Advance Directives No November 23, 2020 2:13pm Living Will No November 23 2:13pm Power of Baby Formula Worker No November 23, 2020 2:13pm Advance Directive Response Recorded Date/ Time Name of Medical Power of Baby Formula Worker gerardo karson weiss January 05, 2024 9:31am Advance Directives No January 05, 024 7:27am Living Will No January 06, 2024 7:27am Power of Baby Formula Worker No January 05 7:27am Advance Directive Response Recorded Date/ Time Living Will No January 06, 2024 7:27am Power of Baby Formula Worker No January 05 7:27am Living Will No November 05 2:09pm Power of Baby Formula Worker No November 05, 2024 2:09pm Living Will No September 12 6:53pm Power of Baby Formula Worker No September 12, 2024 6:53pm Advance Directives No January 05 7:27am Advance Directive Response Recorded Date/ Time Living Will No January 06, 2024 7:27am Do you have a Healthcare Power of Baby Formula Worker? No January 06, 2024 7:27am Living Will No November 05 2:09pm Do you have a Healthcare Power of Baby Formula Worker? No November 05, 2024 2:09pm Advance Directives No January 05 7:27am Advance Directive Response Recorded Date/ Time Living Will No November 05 2:09pm Do you have a Healthcare Power of Baby Formula Worker? No November 05, 2024 2:09pm Advance Directives No January 05 7:27am Advance Directive Response Recorded Date/ Time Advance Directives No January 05 7:27am Chief Complaint and Reason for Visit Chief Complaint Fasenra PROLIA 6 M FU Sinus infection Fasenra Fasenra Reason for Visit Obesity JOSHUA (obstructive sleep apnea) Severe persistent asthma, uncomplicated Chief Complaint Fasenra Fasenra Chief Complaint Fasenra Fasenra OSTEO Chief Complaint Fasenra Fasenra OSTEO Fasenra Chief Complaint Fasenra OSTEO Fasenra PROLIA 6 M FU Reason for Visit Obesity JOSHUA (obstructive sleep apnea) Severe persistent asthma, uncomplicated Chief Complaint Fasenra OSTEO Fasenra PROLIA 6 M FU JOSHUA Reason for Visit Obesity JOSHUA (obstructive sleep apnea) Severe persistent asthma, uncomplicated Chief Complaint Fasenra OSTEO Fasenra PROLIA 6 M FU JOSHUA Fasenra Reason for Visit Obesity JOSHUA (obstructive sleep apnea) Severe persistent asthma, uncomplicated Chief Complaint Fasenra PROLIA 6 M FU JOSHUA Fasenra Fasenra LIVDD/RX HERE Reason for Visit Obesity JOSHUA (obstructive sleep apnea) Severe persistent asthma, uncomplicated Chief Complaint 6 M FU JOSHUA Fasenra Fasenra LIVDD/RX HERE LLQ PAIN Reason for Visit Obesity JOSHUA (obstructive sleep apnea) Severe persistent asthma, uncomplicated Chief Complaint JOSUHA Fasenra Fasenra LLQ PAIN LIVDD/RX HERE Chief Complaint Fasenra Fasenra LLQ PAIN LIVDD/RX HERE Fasenra Chief Complaint Fasenra LLQ PAIN LIVDD/RX HERE Fasenra 6 M FU Reason for Visit Obesity JOSHUA (obstructive sleep apnea) Severe persistent asthma, uncomplicated Chief Complaint LLQ PAIN LIVDD/RX HERE Fasenra 6 M FU PROLIA Fasenra Reason for Visit Obesity JOSHUA (obstructive sleep apnea) Severe persistent asthma, uncomplicated Chief Complaint Fasenra 6 M FU PROLIA Fasenra LT HIP PAIN/ LBP. RX HERE Reason for Visit Obesity JOSHUA (obstructive sleep apnea) Severe persistent asthma, uncomplicated Chief Complaint 6 M FU PROLIA Fasenra Fasenra LT HIP PAIN/ LBP. RX HERE Reason for Visit Obesity JOSHUA (obstructive sleep apnea) Severe persistent asthma, uncomplicated Chief Complaint Fasenra Fasenra LT HIP PAIN/ LBP. RX HERE Fasenra Chief Complaint Fasenra Fasenra LT HIP PAIN/ LBP. RX HERE Chief Complaint Fasenra Fasenra LT HIP PAIN/ LBP. RX HERE LUMBAR RAD PROLIA Chief Complaint Fasenra Fasenra LT HIP PAIN/ LBP. RX HERE LUMBAR RAD PROLIA Fasenra Chief Complaint Fasenra LT HIP PAIN/ LBP. RX HERE LUMBAR RAD PROLIA Fasenra Chief Complaint Fasenra R35.0 R39.15 Fasenra Chief Complaint Fasenra R35.0 R39.15 Fasenra LOWER EXT ART EXAM Reason for Visit Delayed wound healin g Non-pressure chronic ulcer of left ankle with necrosis of muscle Obesity Iron deficiency anemia Venous insufficiency (chronic) (peripheral) Chief Complaint Fasenra R35.0 R39.15 Fasenra LOWER EXT ART EXAM 1 Y FU LOWER EXT ART EXAM Reason for Visit Delayed wound healin g Non-pressure chronic ulcer of left ankle with necrosis of muscle Obesity Iron deficiency anemia Venous insufficiency (chronic) (peripheral) JOSHUA (obstructive sleep apnea) Severe persistent asthma, uncomplicated Delayed wound healing Non-pressure chronic ulcer of left ankle with necrosis of muscle Obesity Iron deficiency anemia Venous insufficiency (chronic) (peripheral) Chief Complaint Fasenra R35.0 R39.15 Fasenra LOWER EXT ART EXAM 1 Y FU LOWER EXT ART EXAM PROLIA Fasenra Reason for Visit Delayed wound healin g Non-pressure chronic ulcer of left ankle with necrosis of muscle Obesity Iron deficiency anemia Venous insufficiency (chronic) (peripheral) JOSHUA (obstructive sleep apnea) Severe persistent asthma, uncomplicated Delayed wound healing Non-pressure chronic ulcer of left ankle with necrosis of muscle Obesity Iron deficiency anemia Venous insufficiency (chronic) (peripheral) Chief Complaint Fasenra R35.0 R39.15 Fasenra LOWER EXT ART EXAM 1 Y FU LOWER EXT ART EXAM PROLIA Fasenra LOWER EXT ART EXAM Reason for Visit Delayed wound healin g Non-pressure chronic ulcer of left ankle with necrosis of muscle Obesity Iron deficiency anemia Venous insufficiency (chronic) (peripheral) JOSHUA (obstructive sleep apnea) Severe persistent asthma, uncomplicated Delayed wound healing Non-pressure chronic ulcer of left ankle with necrosis of muscle Obesity Iron deficiency anemia Venous insufficiency (chronic) (peripheral) Delayed wound healing Non-pressure chronic ulcer of left ankle with necrosis of muscle Obesity Iron deficiency anemia Venous insufficiency (chronic) (peripheral) Chief Complaint R35.0 R39.15 Fasenra LOWER EXT ART EXAM 1 Y FU LOWER EXT ART EXAM PROLIA Fasenra LOWER EXT ART EXAM Other bacterial infections of unspecified site Other bacterial infections of unspecified site Zosyn- 1st dose through midline Reason for Visit Delayed wound healin g Non-pressure chronic ulcer of left ankle with necrosis of muscle Obesity Iron deficiency anemia Venous insufficiency (chronic) (peripheral) JOSHUA (obstructive sleep apnea) Severe persistent asthma, uncomplicated Delayed wound healing Non-pressure chronic ulcer of left ankle with necrosis of muscle Obesity Iron deficiency anemia Venous insufficiency (chronic) (peripheral) Delayed wound healing Non-pressure chronic ulcer of left ankle with necrosis of muscle Obesity Iron deficiency anemia Venous insufficiency (chronic) (peripheral) Bacterial infection due to Pseudomonas Chief Complaint Fasenra LOWER EXT ART EXAM 1 Y FU LOWER EXT ART EXAM PROLIA Fasenra Other bacterial infections of unspecified site Other bacterial infections of unspecified site Zosyn- 1st dose through midline LOWER EXT ART EXAM Reason for Visit Delayed wound healin g Non-pressure chronic ulcer of left ankle with necrosis of muscle Obesity Iron deficiency anemia Venous insufficiency (chronic) (peripheral) JOSHUA (obstructive sleep apnea) Severe persistent asthma, uncomplicated Delayed wound healing Non-pressure chronic ulcer of left ankle with necrosis of muscle Obesity Iron deficiency anemia Venous insufficiency (chronic) (peripheral) Bacterial infection due to Pseudomonas Delayed wound healing Non-pressure chronic ulcer of left ankle with necrosis of muscle Obesity Iron deficiency anemia Venous insufficiency (chronic) (peripheral) Chief Complaint Fasenra LOWER EXT ART EXAM 1 Y FU LOWER EXT ART EXAM PROLIA Fasenra Other bacterial infections of unspecified site Other bacterial infections of unspecified site Zosyn- 1st dose through midline LOWER EXT ART EXAM CONSULT-WOUND LOWER EXT ART EXAM Reason for Visit Delayed wound healin g Non-pressure chronic ulcer of left ankle with necrosis of muscle Obesity Iron deficiency anemia Venous insufficiency (chronic) (peripheral) JOSHUA (obstructive sleep apnea) Severe persistent asthma, uncomplicated Delayed wound healing Non-pressure chronic ulcer of left ankle with necrosis of muscle Obesity Iron deficiency anemia Venous insufficiency (chronic) (peripheral) Bacterial infection due to Pseudomonas Delayed wound healing Non-pressure chronic ulcer of left ankle with necrosis of muscle Obesity Iron deficiency anemia Venous insufficiency (chronic) (peripheral) Venous insufficiency (chronic) (peripheral) Bacterial infection due to Pseudomonas Delayed wound healing Non-pressure chronic ulcer of left ankle with necrosis of muscle Obesity Iron deficiency anemia Venous insufficiency (chronic) (peripheral) Chief Complaint Fasenra LOWER EXT ART EXAM 1 Y FU LOWER EXT ART EXAM PROLIA Fasenra Other bacterial infections of unspecified site Other bacterial infections of unspecified site Zosyn- 1st dose through midline LOWER EXT ART EXAM CONSULT-WOUND LOWER EXT ART EXAM fasenra Reason for Visit Delayed wound healin g Non-pressure chronic ulcer of left ankle with necrosis of muscle Obesity Iron deficiency anemia Venous insufficiency (chronic) (peripheral) JOSHUA (obstructive sleep apnea) Severe persistent asthma, uncomplicated Delayed wound healing Non-pressure chronic ulcer of left ankle with necrosis of muscle Obesity Iron deficiency anemia Venous insufficiency (chronic) (peripheral) Bacterial infection due to Pseudomonas Delayed wound healing Non-pressure chronic ulcer of left ankle with necrosis of muscle Obesity Iron deficiency anemia Venous insufficiency (chronic) (peripheral) Venous insufficiency (chronic) (peripheral) Bacterial infection due to Pseudomonas Delayed wound healing Non-pressure chronic ulcer of left ankle with necrosis of muscle Obesity Iron deficiency anemia Venous insufficiency (chronic) (peripheral) Chief Complaint LOWER EXT ART EXAM 1 Y FU LOWER EXT ART EXAM PROLIA Fasenra Other bacterial infections of unspecified site Other bacterial infections of unspecified site Zosyn- 1st dose through midline LOWER EXT ART EXAM CONSULT-WOUND LOWER EXT ART EXAM fasenra LOWER EXT ART EXAM Reason for Visit Delayed wound healin g Non-pressure chronic ulcer of left ankle with necrosis of muscle Obesity Iron deficiency anemia Venous insufficiency (chronic) (peripheral) JOSHUA (obstructive sleep apnea) Severe persistent asthma, uncomplicated Delayed wound healing Non-pressure chronic ulcer of left ankle with necrosis of muscle Obesity Iron deficiency anemia Venous insufficiency (chronic) (peripheral) Bacterial infection due to Pseudomonas Delayed wound healing Non-pressure chronic ulcer of left ankle with necrosis of muscle Obesity Iron deficiency anemia Venous insufficiency (chronic) (peripheral) Venous insufficiency (chronic) (peripheral) Bacterial infection due to Pseudomonas Delayed wound healing Non-pressure chronic ulcer of left ankle with necrosis of muscle Obesity Iron deficiency anemia Venous insufficiency (chronic) (peripheral) Delayed wound healing Non-pressure chronic ulcer of left ankle with necrosis of muscle Obesity Iron deficiency anemia Venous insufficiency (chronic) (peripheral) Chief Complaint LOWER EXT ART EXAM 1 Y FU LOWER EXT ART EXAM PROLIA Fasenra Other bacterial infections of unspecified site Other bacterial infections of unspecified site Zosyn- 1st dose through midline LOWER EXT ART EXAM CONSULT-WOUND LOWER EXT ART EXAM fasenra LOWER EXT ART EXAM VENOUS INBSUFFICIENCY VENOUS INBSUFFICIENCY Reason for Visit Delayed wound healin g Non-pressure chronic ulcer of left ankle with necrosis of muscle Obesity Iron deficiency anemia Venous insufficiency (chronic) (peripheral) JOSHUA (obstructive sleep apnea) Severe persistent asthma, uncomplicated Delayed wound healing Non-pressure chronic ulcer of left ankle with necrosis of muscle Obesity Iron deficiency anemia Venous insufficiency (chronic) (peripheral) Bacterial infection due to Pseudomonas Delayed wound healing Non-pressure chronic ulcer of left ankle with necrosis of muscle Obesity Iron deficiency anemia Venous insufficiency (chronic) (peripheral) Venous insufficiency (chronic) (peripheral) Bacterial infection due to Pseudomonas Delayed wound healing Non-pressure chronic ulcer of left ankle with necrosis of muscle Obesity Iron deficiency anemia Venous insufficiency (chronic) (peripheral) Delayed wound healing Non-pressure chronic ulcer of left ankle with necrosis of muscle Obesity Iron deficiency anemia Venous insufficiency (chronic) (peripheral) Ulcer of extremity due to chronic venous insufficiency Chief Complaint 1 Y FU LOWER EXT ART EXAM PROLIA Pjenra Other bacterial infections of unspecified site Other bacterial infections of unspecified site Zosyn- 1st dose through midline LOWER EXT ART EXAM CONSULT-WOUND LOWER EXT ART EXAM fasenra LOWER EXT ART EXAM VENOUS INBSUFFICIENCY VENOUS INBSUFFICIENCY WOUND Reason for Visit JOSHUA (obstructive sle ep apnea) Severe persistent asthma, uncomplicated Delayed wound healing Non-pressure chronic ulcer of left ankle with necrosis of muscle Obesity Iron deficiency anemia Venous insufficiency (chronic) (peripheral) Bacterial infection due to Pseudomonas Delayed wound healing Non-pressure chronic ulcer of left ankle with necrosis of muscle Obesity Iron deficiency anemia Venous insufficiency (chronic) (peripheral) Venous insufficiency (chronic) (peripheral) Bacterial infection due to Pseudomonas Delayed wound healing Non-pressure chronic ulcer of left ankle with necrosis of muscle Obesity Iron deficiency anemia Venous insufficiency (chronic) (peripheral) Delayed wound healing Non-pressure chronic ulcer of left ankle with necrosis of muscle Obesity Iron deficiency anemia Venous insufficiency (chronic) (peripheral) Ulcer of extremity due to chronic venous insufficiency Delayed wound healing Non-pressure chronic ulcer of left ankle with necrosis of muscle Obesity Ulcer of extremity due to chronic venous insufficiency Venous insufficiency (chronic) (peripheral) Chief Complaint Other bacterial infe ctions of unspecified site Other bacterial infections of unspecified site Zosyn- 1st dose through midline LOWER EXT ART EXAM CONSULT-WOUND LOWER EXT ART EXAM fasenra LOWER EXT ART EXAM VENOUS INBSUFFICIENCY VENOUS INBSUFFICIENCY WOUND 3-4 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 Reason for Visit Bacterial infection due to Pseudomonas Delayed wound healing Non-pressure chronic ulcer of left ankle with necrosis of muscle Obesity Iron deficiency anemia Venous insufficiency (chronic) (peripheral) Venous insufficiency (chronic) (peripheral) Bacterial infection due to Pseudomonas Delayed wound healing Non-pressure chronic ulcer of left ankle with necrosis of muscle Obesity Iron deficiency anemia Venous insufficiency (chronic) (peripheral) Delayed wound healing Non-pressure chronic ulcer of left ankle with necrosis of muscle Obesity Iron deficiency anemia Venous insufficiency (chronic) (peripheral) Ulcer of extremity due to chronic venous insufficiency Delayed wound healing Non-pressure chronic ulcer of left ankle with necrosis of muscle Obesity Ulcer of extremity due to chronic venous insufficiency Venous insufficiency (chronic) (peripheral) Venous insufficiency (chronic) (peripheral) Delayed wound healing Non-pressure chronic ulcer of left ankle with necrosis of muscle Obesity Iron deficiency anemia Venous insufficiency (chronic) (peripheral) Chief Complaint Admit Date LAC September 12, 2024 5:23pm 1 year follow up October 04, 2024 9:32am DORA October 04, 2024 1:56pm PROLIA October 13, 2024 12:51pm J45.50 - Severe persistent asthma, uncom plicated November 02, 2024 10:19am SOB November 05, 2024 1 2:38pm J45.50 - Severe persistent asthma, uncom plicated November 07, 2024 12:17pm JOSHUA November 08, 2024 9 :00am J45.50 - Severe persistent asthma, uncom plicated November 15, 2024 9:55am FASENRA November 30, 2024 1:53pm 2 M FU December 07, 2024 10:00am JOSE DANIEL [facility] PAIN/RX HERE December 28, 2024 9 :30am Reason for Visit Admit Date JOSHUA (obstructive sleep apnea) September 182023 9:32am Severe persistent asthma, uncomplicated October 04, 2024 9:32am Solitary pulmonary nodule December 07, 2024 10:00am JOSHUA (obstructive sleep apnea) November 192024 10:00am Severe persistent asthma, uncomplicated December 07, 2024 10:00am Chief Complaint Admit Date 1 year follow up October 04, 2024 9:32am FASENRA October 04, 2024 1:56pm PROLIA October 13, 2024 12:51pm J45.50 - Severe persistent asthma, uncom plicated November 02, 2024 10:19am SOB November 05, 2024 1 2:38pm J45.50 - Severe persistent asthma, uncom plicated November 07, 2024 12:17pm JOSHUA November 08, 2024 9 :00am J45.50 - Severe persistent asthma, uncom plicated November 15, 2024 9:55am FASENRA November 30, 2024 1:53pm 2 M FU December 07, 2024 10:00am [facility] December 28, 2024 9 :30am FASENRA January 24, 2025 1:57 pm Chief Complaint Admit Date J45.50 - Severe persistent asthma, uncom plicated November 02, 2024 10:19am SOB November 05, 2024 1 2:38pm J45.50 - Severe persistent asthma, uncom plicated November 07, 2024 12:17pm JOSHUA November 08, 2024 9 :00am J45.50 - Severe persistent asthma, uncom plicated November 15, 2024 9:55am FASENRA November 30, 2024 1:53pm 2 M FU December 07, 2024 10:00am [facility] December 28, 2024 9 :30am FASENRA January 24, 2025 1:57 pm STAT- R/O DVT February 27, 2025 11:[address] Burns wanted pt seen March 01 9:17am Reason for Visit Admit Date Solitary pulmonary nodule December 07, 2024 10:00am JOSHUA (obstructive sleep apnea) November 192024 10:00am Severe persistent asthma, uncomplicated December 07, 2024 10:00am Bilateral lower extremity edema February 11:00am Ulcer of extremity due to chronic venous insufficiency February 27, 2025 11:00am Non-pressure chronic ulcer o f left calf with fat layer exposed February 27, 2025 11:00am Chief Complaint Admit Date November 30, 2024 1:53pm 2 M FU December 07, 2024 10:00am [facility] December 28, 2024 9 :30am FASENRA January 24, 2025 1:[address] Burns wanted pt seen March 01 9:17am LOCALIZED EDEMA March 02, 2025 6:51p m LOCALIZED EDEMA March 14, 2025 9:51a m STAT- R/O DVT March 16, 2025 9:00a m Reason for Visit Admit Date Solitary pulmonary nodule December 07, 2024 10:00am JOSHUA (obstructive sleep apnea) November 192024 10:00am Severe persistent asthma, uncomplicated December 07, 2024 10:00am Bilateral lower extremity edema February 9:17am Non-pressure chronic ulcer o f left calf with fat layer exposed March 01, 2025 9:17am Venous insufficiency (chronic) (peripher al) March 01, 2025 9:17am Bilateral lower extremity edema February 9:51am History of cholecystectomy March 14 9:51am History of hernia repair March 14, 2025 9:51am History of repair of hip fracture March 142024 9:51am History of spinal surgery March 14, 2025 9:51am Non-pressure chronic ulcer o f ankle with fat layer exposed March 14, 2025 9:51am Ulcer of extremity due to chronic venous insufficiency March 14, 2025 9:51am Venous stasis ulcer of ankle with fat la heidy exposed March 14, 2025 9:51am Asthma March 14, 2025 9:51a m GERD (gastroesophageal reflux disease) M ay 2024 9:51am JOSHUA (obstructive sleep apnea) March 14, 2025 9:51am Bilateral lower extremity edema February 9:00am Ulcer of extremity due to chronic venous insufficiency March 16, 2025 9:00am Non-pressure chronic ulcer o f left calf with fat layer exposed March 16, 2025 9:00am Chief Complaint Admit Date November 30, 2024 1:53pm 2 M FU December 07, 2024 10:00am [facility] December 28, 2024 9 :30am FASENRA January 24, 2025 1:57 pm R/O DVT February 16, 2025 10:18a m Dr. Burns wanted pt seen March 01 9:17am LOCALIZED EDEMA March 02, 2025 6:51p m LOCALIZED EDEMA March 14, 2025 9:51a m STAT- R/O DVT March 16, 2025 9:00a m STAT- R/O DVT March 27, 2025 10:45 am 4 M FU March 28, 2025 9:21 am Reason for Visit Admit Date Solitary pulmonary nodule December 07, 2024 10:00am JOSHUA (obstructive sleep apnea) November 192024 10:00am Severe persistent asthma, uncomplicated December 07, 2024 10:00am Bilateral lower extremity edema February 9:17am Non-pressure chronic ulcer o f left calf with fat layer exposed March 01, 2025 9:17am Venous insufficiency (chronic) (peripher al) March 01, 2025 9:17am Bilateral lower extremity edema February 9:51am History of cholecystectomy March 14 9:51am History of hernia repair March 14, 2025 9:51am History of repair of hip fracture March 142024 9:51am History of spinal surgery March 14, 2025 9:51am Non-pressure chronic ulcer o f ankle with fat layer exposed March 14, 2025 9:51am Ulcer of extremity due to chronic venous insufficiency March 14, 2025 9:51am Venous stasis ulcer of ankle with fat la heidy exposed March 14, 2025 9:51am Asthma March 14, 2025 9:51a m GERD (gastroesophageal reflux disease) M ay 2024 9:51am JOSHUA (obstructive sleep apnea) March 14, 2025 9:51am Bilateral lower extremity edema February 9:00am Ulcer of extremity due to chronic venous insufficiency March 16, 2025 9:00am Non-pressure chronic ulcer o f left calf with fat layer exposed March 16, 2025 9:00am Bilateral lower extremity edema March 10:45am Venous stasis ulcer of ankle with fat la heidy exposed March 27, 2025 10:45am Non-pressure chronic ulcer o f left calf with fat layer exposed March 27, 2025 10:45am Venous insufficiency (chronic) (peripher al) March 27, 2025 10:45am Solitary pulmonary nodule March 28 9:21am JOSHUA (obstructive sleep apnea) March 28, 2025 9:21am Severe persistent asthma, uncomplicated March 28, 2025 9:21am Chief Complaint Admit Date FASENRA November 30, 2024 1:53pm 2 M FU December 07, 2024 10:00am [facility] December 28, 2024 9 :30am [facility] January 24, 2025 1:57 pm R/O DVT February 16, 2025 10:18a m Dr. Burns wanted pt seen March 01 9:17am LOCALIZED EDEMA March 02, 2025 6:51p m LOCALIZED EDEMA March 14, 2025 9:51a m STAT- R/O DVT March 16, 2025 9:00a m STAT- R/O DVT March 27, 2025 10:45 am 4 M FU March 28, 2025 9:21 am FASENRA March 28, 2025 10:1 1am Reason for Visit Admit Date Solitary pulmonary nodule December 07, 2024 10:00am JOSHUA (obstructive sleep apnea) November 192024 10:00am Severe persistent asthma, uncomplicated December 07, 2024 10:00am Bilateral lower extremity edema February 9:17am Non-pressure chronic ulcer o f left calf with fat layer exposed March 01, 2025 9:17am Venous insufficiency (chronic) (peripher al) March 01, 2025 9:17am Bilateral lower extremity edema February 9:51am History of cholecystectomy March 14 9:51am History of hernia repair March 14, 2025 9:51am History of repair of hip fracture March 142024 9:51am History of spinal surgery March 14, 2025 9:51am Non-pressure chronic ulcer o f ankle with fat layer exposed March 14, 2025 9:51am Ulcer of extremity due to chronic venous insufficiency March 14, 2025 9:51am Venous stasis ulcer of ankle with fat la heidy exposed March 14, 2025 9:51am Asthma March 14, 2025 9:51a m GERD (gastroesophageal reflux disease) M ay 2024 9:51am JOSHUA (obstructive sleep apnea) March 14, 2025 9:51am Bilateral lower extremity edema February 9:00am Ulcer of extremity due to chronic venous insufficiency March 16, 2025 9:00am Non-pressure chronic ulcer o f left calf with fat layer exposed March 16, 2025 9:00am Bilateral lower extremity edema March 10:45am Venous stasis ulcer of ankle with fat la heidy exposed March 27, 2025 10:45am Non-pressure chronic ulcer o f left calf with fat layer exposed March 27, 2025 10:45am Venous insufficiency (chronic) (peripher al) March 27, 2025 10:45am Solitary pulmonary nodule March 28 9:21am JOSHUA (obstructive sleep apnea) March 28, 2025 9:21am Restless leg syndrome March 28, 2025 9: 21am Severe persistent asthma, uncomplicated March 28, 2025 9:21am Additional Source Comments (unrecognized sect ion and content) No Status Records FoundNo Status Records FoundNo Status Records FoundNo Status Records FoundNo Status Records FoundNo Status Records Found INFORMATION SOURCE (unrecogn ized section and content) DATE CREATED AUTHOR 05/17/2018 [facility] DATE CREATED AUTHOR AUTHOR'S ORGANIZ ATION 02/10/2019 [facility] DATE CREATED AUTHOR AUTHOR'S ORGANIZ ATION 02/10/2019 [facility] DATE CREATED AUTHOR AUTHOR'S ORGANIZ ATION 09/11/2022 [facility] DATE CREATED AUTHOR AUTHOR'S ORGANIZ ATION 08/09/2024 [facility] DATE CREATED AUTHOR AUTHOR'S ORGANIZ ATION 04/11/2025 [facility] Goals (unrecognized section and content) Goals may be documented in a n alternate sectionGoals may be documented in an alternate sectionGoals may be documented in an alternate sectionGoals may be documented in an alternate sectionGoals may be documented in an alternate sectionGoals may be documented in an alternate sectionGoals may be documented in an alternate sectionGoals may be documented in an alternate sectionGoals may be documented in an alternate sectionGoals may be documented in an alternate sectionGoals may be documented in an alternate sectionGoals may be documented in an alternate sectionGoals may be documented in an alternate sectionGoals may be documented in an alternate sectionGoals may be documented in an alternate sectionGoals may be documented in an alternate sectionGoals may be documented in an alternate sectionGoals may be documented in an alternate sectionGoals may be documented in an alternate sectionGoals may be documented in an alternate sectionGoals may be documented in an alternate sectionGoals may be documented in an alternate sectionGoals may be documented in an alternate sectionGoals may be documented in an alternate sectionGoals may be documented in an alternate sectionGoals may be documented in an alternate sectionGoals may be documented in an alternate sectionGoals may be documented in an alternate sectionGoals may be documented in an alternate sectionGoals may be documented in an alternate sectionGoals may be documented in an alternate sectionGoals may be documented in an alternate sectionGoals may be documented in an alternate sectionGoals may be documented in an alternate sectionGoals may be documented in an alternate sectionGoals may be documented in an alternate sectionGoals may be documented in an alternate sectionGoals may be documented in an alternate sectionGoals may be documented in an alternate sectionGoals may be documented in an alternate sectionGoals may be documented in an alternate sectionGoals may be documented in an alternate sectionGoals may be documented in an alternate sectionGoals may be documented in an alternate sectionGoals may be documented in an alternate sectionGoals may be documented in an alternate sectionGoals may be documented in an alternate sectionGoals may be documented in an alternate sectionGoals may be documented in an alternate section Source Comments (unrecognize d section and content) In the event this informatio n is protected by the Federal Confidentiality of Alcohol and Drug Abuse Patient Records regulations: The Federal rules restrict any use of the information to criminally investigate or prosecute any alcohol or drug abuse patient.[facility] Hospital[facility] the event this information is protected by the Federal Confidentiality of Alcohol and Drug Abuse Patient Records regulations: The Federal rules restrict any use of the information to criminally investigate or prosecute any alcohol or drug abuse patient.[facility] HospitalIn the event this information is protected by the Federal Confidentiality of Alcohol and Drug Abuse Patient Records regulations: The Federal rules restrict any use of the information to criminally investigate or prosecute any alcohol or drug abuse patient.[facility] HospitalIn the event this information is protected by the Federal Confidentiality of Alcohol and Drug Abuse Patient Records regulations: The Federal rules restrict any use of the information to criminally investigate or prosecute any alcohol or drug abuse patient.[facility] HospitalIn the event this information is protected by the Federal Confidentiality of Alcohol and Drug Abuse Patient Records regulations: The Federal rules restrict any use of the information to criminally investigate or prosecute any alcohol or drug abuse patient.[facility] HospitalIn the event this information is protected by the Federal Confidentiality of Alcohol and Drug Abuse Patient Records regulations: The Federal rules restrict any use of the information to criminally investigate or prosecute any alcohol or drug abuse patient.[facility] HospitalIn the event this information is protected by the Federal Confidentiality of Alcohol and Drug Abuse Patient Records regulations: The Federal rules restrict any use of the information to criminally investigate or prosecute any alcohol or drug abuse patient.[facility] Reason for Visit (unrecogniz ed section and content) Reason Comments Consult Reason Comments Follow Up Hernia repair Reason Comments Chest Congestion headache, cough, sor e throat, bodyaches x 5 days Reason Comments Nasal Congestion drainage, cough x 2 days Reason Comments Ingrown Toenail right great toenail falling off x 1 week, increased x 1 day Reason Comments Trauma Right shoulder pain from fall x 1.5 weeks Care Teams (unrecognized sec tion and content) Hvac Controls Technician Relationship Specialty Start Date End Date Peter Finney MD PCP - General Family Medicine 11/04/16 Hvac Controls Technician Relationship Specialty Start Date End Date Randa Joseph DO [address] [facility] [place] [address] PCP - General Family Medicine 09/10/22 Hvac Controls Technician Relationship Specialty Start Date End Date Randa Joseph DO [address] [place] [address] PCP - General Family Medicine 09/10/22 Team Status: Active Member Role Status Dates Dr. Peter Finney MD Family Provider Active Dr. Randa Joseph DO Primary Care Provider Active Team Status: Inactive Member Role Status Dates Dr. Peter Finney MD Referring Provider Active Dr. Abel Mcgee DO Attending Provider Active Dr. Randa Joseph DO Primary Care Provider Active Team Status: Inactive Member Role Status Dates Dr. Luiza Moon MD Attending Provider, Referring Provider Active Dr. Randa Joseph DO Primary Care Provider Active Team Status: Inactive Member Role Status Dates Dr. Ray Guajardo MD Attending Provider, Referring Provider Active Dr. Randa Joseph DO Primary Care Provider Active Team Status: Inactive Member Role Status Dates Dr. Randa Joseph DO Primary Care Provider Active Neris Tovar MULE SPINNER, MULE SPINNER-C Attending Provider, Referrin g Provider Active Team Status: Inactive Member Role Status Dates Dr. Randa Joseph DO Primary Care Provider, Attendin g Provider Active Team Status: Inactive Member Role Status Dates Dr. Randa Joseph DO Primary Care Provider Active Dr. Luiza Moon MD Attending Provider, Referring Provider Active Team Status: Active Member Role Status Dates Dr. Randa Joseph DO Primary Care Provider Active Dr. Alvaro Moss MD Attending Provider, Referring P rovider Active Team Status: Inactive Member Role Status Dates Dr. Randa Joseph DO Primary Care Provider Active Dr. Ray Guajardo MD Attending Provider, Referring Provider Active Team Status: Inactive Member Role Status Dates Dr. Randa Joseph DO Primary Care Provider Active Dr. Alvaro Moss MD Attending Provider, Referring P rovider Active Team Status: Inactive Member Role Status Dates Dr. Randa Joseph DO Primary Care Prov ider, Attending Provider, Referring Provider Active Team Status: Inactive Member Role Status Dates Dr. Randa Joseph DO Primary Care Provider Active Dr. Mahendra Julio MD Attending Provider Active Team Status: Active Member Role Status Dates Dr. Randa Joseph DO Primary Care Provider Active Dr. Murray Mckee MD Attending Provider Active Team Status: Inactive Member Role Status Dates Dr. Randa Joseph DO Primary Care Provider, Referrin g Provider Active Dr. Merrill Burns DPM Attending Provider Active Team Status: Inactive Member Role Status Dates Dr. Randa Joseph DO Primary Care Provider, Referrin g Provider Active Dr. Abel Mcgee DO Attending Provider Active Team Status: Active Member Role Status Dates Dr. Randa Joseph DO Primary Care Provider Active Dr. Murray Mckee MD Attending Provider Active Dr. Merrill Burns DPM Referring Provider Active Team Status: Active Member Role Status Dates Dr. Randa Joseph DO Primary Care Provider, Referrin g Provider Active Dr. Merrill Burns DPM Attending Provider Active Team Status: Active Member Role Status Dates Dr. Randa Joseph DO Primary Care Provider Active Dr. David Unger MD Referring Provider, Other Pr ovider Active Landy Blair NP-C Attending Provider Active Team Status: Active Member Role Status Dates Dr. Randa Joseph DO Primary Care Provider Active Dr. David Unger MD Attending Provider, Referrin g Provider Active Team Status: Inactive Member Role Status Dates Dr. Randa Joseph DO Primary Care Provider Active Dr. David Unger MD Attending Provider, Referrin g Provider Active Team Status: Inactive Member Role Status Dates Dr. Randa Joseph DO Primary Care Provider, Referrin g Provider Active Dr. Murray Mckee MD Attending Provider Active Team Status: Active Member Role Status Dates Dr. Randa Joseph DO Primary Care Provider Active Dr. Murray Mckee MD Attending Provider, Referring Provider, Other Provider Active Team Status: Inactive Member Role Status Dates Dr. Randa Joseph DO Primary Care Provider Active Dr. Murray Mckee MD Attending Provider, Referring Pro vider Active Team Status: Inactive Member Role Status Dates Dr. Randa Joseph DO Primary Care Provider Active Dr. Merrill Burns DPM Attending Provider Active Team Status: Inactive Member Role Status Dates Dr. 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 Randa Joseph DO Primary Care Provider Active Team Status: Inactive Member Role Status Dates Dr. Randa Joseph DO Primary Care Provider Active Start: September 12, 2024 End: September 12, 2024 Dr. Yung Ruvalcaba MD Attending Provider Active Start: September 12, 2024 End: September 12, 2024 Dr. Yung Ruvalcaba MD Emergency Provider Active Start: September 12, 2024 End: September 12, 2024 Team Status: Inactive Member Role Status Dates Dr. Randa Joseph DO Primary Care Provider Active Start: September 22, 2024 End: September 22, 2024 Dr. Randa Joseph DO Attending Provider Active Start: September 22, 2024 End: September 22, 2024 Dr. Randa Joseph DO Referring Provider Active Start: September 22, 2024 End: September 22, 2024 Team Status: Inactive Member Role Status Dates Dr. Randa Joseph DO Primary Care Provider Active Start: October 04, 2024 End: October 04, 2024 Dr. Randa Joseph DO Referring Provider Active Start: October 04, 2024 End: October 04, 2024 HAYLEE Lee Attending Provider Active Start: October 04, 2024 End: October 04, 2024 Team Status: Inactive Member Role Status Dates Dr. Randa Joseph DO Primary Care Provider Active Start: October 04, 2024 End: October 04, 2024 Dr. Luiza Moon MD Attending Provider Active Start: October 04, 2024 End: October 04, 2024 Dr. Luiza Moon MD Referring Provider Active Start: October 04, 2024 End: October 04, 2024 Team Status: Inactive Member Role Status Dates Dr. Randa Joseph DO Primary Care Provider Active Start: October 04, 2024 End: October 04, 2024 Neris Tovar MULE SPINNER, MULE SPINNER-C Attending Provider Active Start: October 04, 2024 End: October 04, 2024 Neris Tovar MULE SPINNER, MULE SPINNER-C Referring Provider Active Start: October 04, 2024 End: October 04, 2024 Team Status: Inactive Member Role Status Dates Dr. Randa Joseph DO Primary Care Provider Active Start: October 13, 2024 End: October 13, 2024 XENA MERRILL Attending Provider Active St art: October 13, 2024 End: October 13, 2024 XENA MERRILL Referring Provider Active St art: October 13, 2024 End: October 13, 2024 Team Status: Inactive Member Role Status Dates Dr. Randa Joseph DO Primary Care Provider Active Start: November 02, 2024 End: November 02, 2024 Ivelisse Gould NP-C Attending Provider Active Start: November 02, 2024 End: November 02, 2024 Ivelisse Gould NP-C Referring Provider Active Start: November 02, 2024 End: November 02, 2024 Team Status: Inactive Member Role Status Dates Dr. Randa Joseph DO Primary Care Provider Active Start: November 05, 2024 End: November 05, 2024 Dr. Mario Koo MD Attending Provider Active S tart: November 05, 2024 End: November 05, 2024 Dr. Mario Koo MD Emergency Provider Active S tart: November 05, 2024 End: November 05, 2024 Team Status: Inactive Member Role Status Dates Dr. Randa Joseph DO Primary Care Provider Active Start: November 07, 2024 End: November 07, 2024 SUNG LeeC Attending Provider Active Start: November 07, 2024 End: November 07, 2024 Ivelisse Gould NP-C Referring Provider Active Start: November 07, 2024 End: November 07, 2024 Team Status: Inactive Member Role Status Dates Dr. Randa Joseph DO Primary Care Provider Active Start: November 08, 2024 End: November 08, 2024 Dr. López Joseph MD Attending Provider Active Start: November 08, 2024 End: November 08, 2024 Team Status: Active Member Role Status Dates Dr. Randa Joseph DO Primary Care Provider Active Start: November 15, 2024 Ivelisse Gould NP-C Referring Provider Active Start: November 15, 2024 Ivelisse Gould NP-C Other Provider Active St art: November 15, 2024 Dr. Abel Mcgee DO Attending Provider Active S tart: November 15, 2024 Team Status: Inactive Member Role Status Dates Dr. Randa Joseph DO Primary Care Provider Active Start: November 30, 2024 End: November 30, 2024 Neris Tovar MULE SPINNER, MULE SPINNER-C Attending Provider Active Start: November 30, 2024 End: November 30, 2024 Neris Tovar MULE SPINNER, MULE SPINNER-C Referring Provider Active Start: November 30, 2024 End: November 30, 2024 Team Status: Inactive Member Role Status Dates Dr. Randa Joseph DO Primary Care Provider Active Start: December 07, 2024 End: December 07, 2024 Dr. Randa Joseph DO Referring Provider Active Start: December 07, 2024 End: December 07, 2024 Ivelisse Gould NP-C Attending Provider Active Start: December 07, 2024 End: December 07, 2024 Team Status: Inactive Member Role Status Dates Dr. Randa Joseph DO Primary Care Provider Active Start: December 07, 2024 End: December 07, 2024 Ivelisse Gould NP-Patricia Attending Provider Active Start: December 07, 2024 End: December 07, 2024 Ivelisse Gould NP-C Referring Provider Active Start: December 07, 2024 End: December 07, 2024 Dr. Luiza Moon MD Other Provider Active St art: December 07, 2024 End: December 07, 2024 Team Status: Inactive Member Role Status Dates Dr. Randa Joseph DO Primary Care Provider Active Start: December 28, 2024 End: December 28, 2024 Dr. Randa Joseph DO Attending Provider Active Start: December 28, 2024 End: December 28, 2024 Dr. Randa Joseph DO Referring Provider Active Start: December 28, 2024 End: December 28, 2024 Team Status: Inactive Member Role Status Dates Dr. Randa Joseph DO Primary Care Provider Active Start: January 24, 2025 End: January 24, 2025 Neris Tovar MULE SPINNER, MULE SPINNER-C Attending Provider Active Start: January 24, 2025 End: January 24, 2025 Neris Tovar MULE SPINNER, MULE SPINNER-C Referring Provider Active Start: January 24, 2025 End: January 24, 2025 Team Status: Inactive Member Role Status Dates Dr. Randa Joseph DO Primary Care Provider Active Start: February 13, 2025 End: February 13, 2025 Dr. Randa Joseph DO Attending Provider Active Start: February 13, 2025 End: February 13, 2025 Team Status: Active Member Role Status Dates Dr. Randa Joseph DO Primary Care Provider Active Start: February 27, 2025 Dr. Randa Joseph DO Referring Provider Active Start: February 27, 2025 Dr. Merrill Burns DPM Attending Provider Active Start: February 27, 2025 Team Status: Inactive Member Role Status Dates Dr. Randa Joseph DO Primary Care Provider Active Start: March 01, 2025 End: March 01, 2025 Dr. Randa Joseph DO Referring Provider Active Start: March 01, 2025 End: March 01, 2025 XENA Solorio Attending Provider Active Star t: March 01, 2025 End: March 01, 2025 Team Status: Active Member Role Status Dates Dr. Randa Joseph DO Primary Care Provider Active Start: March 02, 2025 XENA Solorio Referring Provider Active Star t: March 02, 2025 XENA Solorio Other Provider Active Start: 2024 Dr. Jose L Nagel MD Attending Provider Active Start: March 02, 2025 Team Status: Inactive Member Role Status Dates Dr. Randa Joseph DO Primary Care Provider Active Start: March 14, 2025 End: March 14, 2025 XENA Solorio Attending Provider Active Star t: March 14, 2025 End: March 14, 2025 XENA Solorio Referring Provider Active Star t: March 14, 2025 End: March 14, 2025 Team Status: Active Member Role Status Dates Dr. Randa Joseph DO Primary Care Provider Active Start: March 14, 2025 Dr. Murray Mckee MD Attending Provider Active S tart: March 14, 2025 Team Status: Active Member Role Status Dates Dr. Randa Joseph DO Primary Care Provider Active Start: March 16, 2025 Dr. Randa Joseph DO Referring Provider Active Start: March 16, 2025 Dr. Merrill Burns DPM Attending Provider Active Start: March 16, 2025 Team Status: Inactive Member Role Status Dates Dr. Randa Joseph DO Primary Care Provider Active Start: March 16, 2025 End: March 18, 2025 Dr. Randa Joseph DO Referring Provider Active Start: March 16, 2025 End: March 18, 2025 Dr. Merrill Burns DPM Attending Provider Active Start: March 16, 2025 End: March 18, 2025 Team Status: Active Member Role Status Dates Dr. Jose L Nagel MD Attending Provider Active Start: February 16, 2025 Dr. Merrill Burns DPM Referring Provider Active Start: February 16, 2025 Team Status: Active Member Role Status Dates Dr. Randa Joseph DO Primary Care Provider Active Start: March 14, 2025 Dr. Murray Mckee MD Attending Provider Active S tart: March 14, 2025 XENA Solorio Referring Provider Active Star t: March 14, 2025 Team Status: Active Member Role Status Dates Dr. Randa Joseph DO Primary Care Provider Active Start: March 27, 2025 Dr. Randa Joseph DO Referring Provider Active Start: March 27, 2025 Dr. Merrill Burns DPM Attending Provider Active Start: March 27, 2025 Team Status: Inactive Member Role Status Dates Dr. Randa Joseph DO Primary Care Provider Active Start: March 28, 2025 End: March 28, 2025 Dr. Randa Joseph DO Referring Provider Active Start: March 28, 2025 End: March 28, 2025 Ivelisse Gould NP-C Attending Provider Active Start: March 28, 2025 End: March 28, 2025 Team Status: Inactive Member Role Status Dates Dr. Randa Joseph DO Primary Care Provider Active Start: March 28, 2025 End: March 28, 2025 Neris Tovar NP, MULE SPINNER-C Attending Provider Active Start: March 28, 2025 End: March 28, 2025 Neris Tovar NP, MULE SPINNER-C Referring Provider Active Start: March 28, 2025 End: March 28, 2025 FOR RECORDS PERTAINING TO PATIENTS WHO ARE [...] BE BASED ON THE PRIMARY CLINICAL RECORDS. [facility] [employer] [facility]. provides no warranty or guarantee of the accuracy or completeness of information in this document.
[2025-04-13 07:36] VITALS: BMI 27.8
--- NOTE | 2025-04-13 08:50 | HP.PCM_ITS ---
HPI - General HPI Narrative EVA GONZALEZ, is a 80 M who presents with recurrent ulceration of left medial ankle with skin changes consistent with venous stasis. Duplex revealed reflux throughout the GSV. He presents for chemical ablation. 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 Venous stasis ulcer JOSHUA (obstructive sleep apnea) History of back problems Fatigue Weight loss Lab test positive for detection of COVID-19 virus (~04/2020) Left femoral shaft fracture Osteopenia 2011 femur fracture [facility] DVT (deep venous thrombosis) Restless leg syndrome Iron deficiency anemia GERD (gastroesophageal reflux disease) Celiac disease Asthma Home Medications ?Medication ?Instructions ?Recorded ?Last Taken ?Type pantoprazole 40 mg tablet,delayed 40 mg PO QHS gerd 07/15/17 History release tamsulosin 0.4 mg capsule 0.4 mg PO QHS Enlarged prost ate 07/12/17 01/06/24 History ergocalciferol (vitamin D2) 1,250 50,000 unit PO WE Unknown History mcg (50,000 unit) capsule benralizumab 30 mg/mL subcutaneous 30 mg subcut Q4W #1 mL 12/28/20 Unknown Rx syringe (Fasenra) levothyroxine 50 mcg tablet 100 mcg PO DAILY 03/21/22 01/06/24 History fluticasone propionate 50 2 spray NASAL BID PRN Conges tion 03/25/22 Unknown Rx mcg/actuation nasal #16 grams spray,suspension pramipexole 1.5 mg tablet 1.5 mg PO DAILY 11/25/23 Unk nown History finasteride 5 mg tablet 5 mg PO DAILY 01/05/24 Unkno wn History bimatoprost 0.03 % eye drops 1 drp ophthalmic (eye) QD AY 10/04/24 Unknown History denosumab 60 mg/mL subcutaneous 60 mg subcut [id number] 10/04/24 Unknown History syringe (Prolia) diclofenac potassium 50 mg tablet 50 mg PO TID PRN brynn n 10/04/24 Unknown History fluticasone 232 mcg-salmeterol 14 1 inh inhalation BID #1 ea 10/04/24 Unknown Rx mcg/actuation breath activated powdr ferrous gluconate 324 mg (37.5 mg 324 mg PO BID #60 ta bs 12/07/24 Unknown Rx iron) tablet albuterol sulfate 90 mcg/actuation 2 inh inhalation Q4 -6H PRN 03/28/25 Unknown Rx aerosol inhaler shortness of breath or wheez ing #8.5 grams donepezil 5 mg tablet 5 mg PO QHS 03/28/25 Unknown History Allergy/AdvReac Type Severity Reaction Status Date / Time gluten AdvReac Other Verified 03/28/25 10:28 Family History Father prostate cancer Surgical History History of colonoscopy (~09/24/20) History of hernia repair History of spinal surgery (~2017) History of repair of hip fracture History of cholecystectomy colonoscopy Social History Smoking Status: Former smoker alcohol intake: never substance use type: does not use ROS Constitutional Constitutional: Denies chills, fever(s), frequent falls, lethargy or weakness Eyes Eyes: Denies blind spots, change in vision or loss of vision ENT HEENT: Denies bleeding gums, hoarseness or sore throat Cardiovascular Cardiovascular: Denies abdominal pain, bluish discoloration of hand/feet, chest pain with activity, claudication, cold extremities, cyanosis, dyspnea on e xertion, erythema on extremities, irregular heart rhythm, leg edema, leg ulcers, numbness in extremities or weakness in extremities Respiratory/Chest Respiratory/Chest: Denies cough, excessive phlegm production, shortness of breath at rest, shortness of breath with exertion or wheezing Gastrointestinal Gastrointestinal: Denies anorexia, change in stool character, constipation, diarrhea, melena or rectal bleeding Genitourinary Genitourinary: Denies dysuria or hematuria Musculoskeletal Musculoskeletal: Denies abnormal gait Integumentary Integumentary: Reports other Details: ; Denies erythema Neurologic Neurologic: Denies abnormal speech, focal weakness, headache(s), loss of vision, numbness, paresthesias or sensory deficit Hematologic/Lymphatic Hematologic/Lymphatic: Denies easy bleeding, easy bruising or lymphadenopathy Vital Signs Vital Signs Vital Signs: Weight Weight: 205 lb Body Mass Index (BMI) 27.8 Physical Exam Const alert, oriented x3, no apparent distress and healthy appearing General Appearance: cooperative; Negative for combative or lethargic Orientation / Consciousness: awake Exam Limitations: no limitations HEENT Head and Scalp: normocephalic and atraumatic Eyes EOMs intact bilaterally General Eye: normal appearance of both eyes Neck full ROM General: trachea midline Resp normal respiratory effort and no use of accessory muscles Effort and Inspection: Negative for labored, stridor or audible wheezes Cardio regular rate and regular rhythm Back/Spine Cervical Spine: cervical ROM normal Extremity full ROM, normal capillary refill and no clubbing, cyanosis or edema Skin no rashes or lesions noted Neuro oriented x3, CN's II-XII intact bilaterally, no focal motor deficits and no sensory deficits noted Psych thought process normal, cooperative, affect normal, speech normal and activity/motor behavior normal Assessment & Plan Assessment/Plan (1) 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: QUALIFIERS: Varicose vein presence: with varicose veins Laterality: left Qualified Code(s): I83.023 - Varicose veins of left lower extremity with ulcer of ankle; L97.322 - Non-pressure chronic ulcer of left ankle with fat layer exposed PLAN: -chemical ablation
--- NOTE | 2025-04-13 12:55 | OP.PCM_ITS ---
Operative Report (Standard) Operative Information Date of Procedure: 04/13/25 Pre-Operative Diagnosis: Venous insufficiency with ulceration adjacent to the medial malleolus of the left lower extremity Post-Operative Diagnosis: Same Surgery/Procedure Performed: Left great saphenous vein chemical ablation learning officer: No Type of Anesthesia: Local and Sedation,Conscious Procedure Start Time: 09:00 Procedure Stop Time: 09:40 Select all DRAINS/GRAFTS/IMPLANTS that apply: None Estimated Blood Loss: 2 Specimen collected: No Description of surgery: HPI: Patient is a 80-year-old male with venous insufficiency and recurrent venous ulceration of the left lower extremity. These have been refractory and recurrent despite maximal local care and vein ultrasound revealed reflux throughout the great saphenous vein. Is taken now for chemical ablation. Description of procedure: Upon obtaining informed consent and verification correct patient procedure and site the patient taken the Enrollment Eligibility Representative where he was positioned prepped and draped in usual sterile fashion. Timeouts performed consultation ministered with Versed and fentanyl. The great saphenous vein was evaluated with ultrasound from the saphenofemoral junction down to just above the malleolus. It was noted to be contiguous with some tortuosity and branching but appeared to be traversable. Skin overlying the great saphenous vein just above the malleolus was anesthetized 1% lidocaine the vessel accessed under ultrasound guidance with a micropuncture needle wire. This then exchanged for the 7 [place] sheath which was advanced over the wire without resistance. Through the 7 [place] sheath an angled Glidewire was advanced under ultrasound guidance traversing the great saphenous vein and successful navigating tortuosity and branches up to the saphenofemoral junction. The glue delivery guide was then advanced over the wire position 5 cm distal to the saphenofemoral junction. The dilator was withdrawn and the glue delivery catheter which having prepped for manufactures instructions was advanced through the guide and positioned 5 cm distal to the saphenofemoral junction. Glue was then injected along the treatment zone per instruction per manufacture until the entirety of the treatment zone had been traversed. The guide and catheter were then withdrawn followed by sheath removal manage pressure held of the access site for 5 minutes till hemostasis was observed. The common femoral vein was interrogated with ultrasound and found to be patent and compressible with no deep vein thrombosis or glue within the deep system. The glue projected to just below the saphenofemoral junction remaining within the saphenous zhang. Dry sterile dressing and Farhat wrap were then applied patient was taken recovery with plan discharged to home. Surgical Findings: See above Complications Complications: No
== END | disposition home or self-care (01) ==
LOC: CLSP 07:12
PROVIDERS: PCP Family Medicine; Referring Provider Surgery Trauma Surgery; Visit Provider Surgery Trauma Surgery
DX: I83.023 Varicose veins of left lower extremity with ulcer of ankle (principal); L97.322 Non-pressure chronic ulcer of left ankle with fat layer exposed; Z87.891 Personal history of nicotine dependence; Z86.718 Personal history of other venous thrombosis and embolism; K21.9 Gastro-esophageal reflux disease without esophagitis; J45.909 Unspecified asthma, uncomplicated; I87.2 Venous insufficiency (chronic) (peripheral)
CPT/HCPCS: 36482; 99152; 99153; C1894; C1769

== ENCOUNTER 2025-04-14 12:17 | Outpatient (CLI) | payer MEDICARE, OTHER, SELFPAY ==
[2025-04-14 12:28] VITALS: BP 113/57; PULSE 60; RESP 16; TEMP 36.3
[2025-04-14] MEDS: DENOSUMAB 60 MG/ML SC (12:33)
== END 2025-04-14 23:59 | disposition home or self-care (01) ==
LOC: MEDOUTP 12:17
PROVIDERS: PCP Family Medicine; Referring Provider Physician Assistant Medical; Visit Provider Physician Assistant Medical
DX: M81.8 Other osteoporosis without current pathological fracture (principal)
CPT/HCPCS: 96372; J0897

== ENCOUNTER → 2025-04-17 | Outpatient (CLI) | payer MEDICARE, OTHER, SELFPAY ==
--- NOTE | 2025-04-17 08:46 | VDLE_ITS ---
Reason For Study Reason For Study: S/P LLE GSV Chemical Ablation RIGHT LEFT CFV is compressible, spontaneous, phasic, competent GSV appears dilated and NONCOMPRESSIBLE with bright and demonstrates normal augmentation. intraluminal echoes from SFJ to ankle. Finding is Procedure consistent with recent chemical ablation. This is a venous duplex using B-mode, color flow and CFV is compressible, spontaneous, phasic, competent, spectral Doppler. and demonstrates normal augmentation. Exam performed in department. FV is compressible, spontaneous, phasic, competent The exam was diagnostic. and demonstrates normal augmentation. POP V is compressible, spontaneous, phasic, competent and demonstrates normal augmentation. T/P Trunk is compressible. PTV is compressible. LT PerV is compressible. VL/Venous Duplex US, Unilateral Interpretation Summary Deep veins of the left lower extremity are patent and compressible segmentally. There is no evidence of left lower extremity deep vein thrombosis. Left great saphenous vein occluded consistent with recent chemical ablation Ordering Physician: Salima Morin Referring Physician: Keven Joseph Performed By: Joss Harden RVT
== END | disposition home or self-care (01) ==
LOC: CVS 08:45
PROVIDERS: PCP Family Medicine; Referring Provider Physician Assistant; Visit Provider Physician Assistant
DX: I87.2 Venous insufficiency (chronic) (peripheral) (principal); I83.023 Varicose veins of left lower extremity with ulcer of ankle; L97.322 Non-pressure chronic ulcer of left ankle with fat layer exposed
CPT/HCPCS: 93971

== ENCOUNTER 2025-05-16 10:26 | Outpatient (CLI) | payer MEDICARE, OTHER, SELFPAY ==
[2025-05-16 10:33] VITALS: BP 133/50; PULSE 72; RESP 16; TEMP 36.1; O2SAT 98; BMI 29.1
== END 2025-05-16 23:59 | disposition home or self-care (01) ==
LOC: MEDOUTP 10:27
PROVIDERS: PCP Family Medicine; Referring Provider Nurse Practitioner Acute Care; Visit Provider Nurse Practitioner Acute Care
DX: J45.50 Severe persistent asthma, uncomplicated (principal)
CPT/HCPCS: 96372; J0517

== ENCOUNTER 2025-05-18 15:11 | Outpatient (RCR) | payer MEDICARE, OTHER, SELFPAY ==
[2025-04-20 08:43] VITALS: BP 134/63; PULSE 66; RESP 18; TEMP 35.8
--- NOTE | 2025-04-20 10:09 | PCM.WC.PN ---
History of Present Illness Date of Service: 04/20/25 Chief Complaint: Left medial ankle wound History of Wound: The patient is seen today as a courtesy visit for Dr. Merrill Burns, the patient's regular Wound Center provider. The patient's medical history is as recently documented below. Patient is a 79-year-old male who presents to the wound care center with recurring left lower extremity medial ankle wound. He has PMHx of recurring left lower extremity ulceration secondary to chronic venous insufficiency, history of DVT, obesity, JOSHUA, iron deficient anemia, delayed wound healing, and asthma. He states that he does have compression stockings and continues to wear them. He had been following in the wound care center for a deep ulceration to the medial aspect of the left lower extremity overlying the neurovascular bundle. He did go on to heal this ulceration as of 12/31/[address] Mckee for venogram. He has continued wearing compression stockings however states that while in the shower he did notice a scab of the left medial ankle and after showering applied antibiotic ointment and Band-Aid which later then the scab became soft and opened a small wound. He states that he did see his PCP who did obtain cultures and placed him on oral antibiotic. He was then referred to the wound care center for further follow-up. He denies any further trauma to the site. States that the specific site is recurrent with breakdown of skin. Denies N/V/F/chills. No further complaints. Subjective Subjective This is a 80-year-old male who returns to the wound care center for continued follow-up of a chronic venous stasis/insufficiency ulceration at the medial aspect of the left lower extremity. He underwent vascular procedure with Dr. Mckee on 04/13/25. He has been utilizing Tubigrip compression since procedure. Reports procedure went well and will have follow-up with Dr. Mckee next week. He denies constitutional symptoms. Denies further complaints. Objective Data Objective Data Vital Signs: Vital Signs Temp Pulse Resp BP O2 Del Method 96.4 F L 66 18 134/63 H Room Air 04/20/25 08:43 04/20/25 08:43 04/20/25 08:43 04/20/25 08:43 04/20/25 08:43 Oxygen Delivery Method Room Air Physical Exam Const alert, oriented x3 and no apparent distress General Appearance: cooperative HEENT normocephalic Eyes General Eye: normal appearance of both eyes Neck General: normal visual inspection Lymph Lymphatic: no lymphadenopathy noted and no lymphedema noted Resp normal respiratory effort Cardio regular rate and regular rhythm Extremity no calf tenderness Extremity Narrative: Left lower extremity: Vascular: DP and PT pulses weakly palpable. Capillary fill time to digits is 5 seconds. Normal temperature gradient. There is absent hair growth to digits noted. Dermatological: There is a full-thickness ulceration noted to the medial aspect of the lower extremity/ankle with mixed granular layer and ongoing epithelialization. Negative Stemmer sign left foot. There is evidence of stasis dermatitis with hyperpigmentation/hemosiderin deposition/staining of skin left lower extremity. There are varicosities noted of the lower extremity with mild lower extremity edema. There is no erythema or rubor of the left lower extremity. Musculoskeletal: Muscle strength 5 of 5 age-appropriate. There is decreased range of motion of the ankle joint dorsiflexion with knee extended without pain or crepitus. Decreased range of motion of the STJ, MTJ, and first MTPJ without pain or crepitus. There is pain to palpation of the left calf today with positive Gómez sign and Homans' sign. Skin no rashes or lesions noted General Skin Exam: venous stasis and dermatitis Neuro moves all extremities Debridement Note Debridement Note No debridement was completed: No debridement was completed today Post-Debridement Measurements and Additional Note: Post-Debridement Measurements/Treatment - Nurse 1 - General Ulcer Assessment Start: 04/20/25 08:43 Freq: Status: Active Protocol: WC.LOWCHANDRAKANT Activity Type Activity Date Activity User E-sign Co-sign Detail Recorded Client Recorded Date Recorded By Document 04/20/25 08:43 [id number] 04/20/25 08:52 KW 04/20/25 08:43 - Today's Visit Information Type of service Follow-up Visit (Physician/POKER SUPERVISOR ) Arrival Mode Ambulatory Patient Identification Verified (Name & Yes ) Vital Signs Temperature (97.8 F-99.1 F) 96.4 F L Temperature Source Temporal Pulse Rate (60-100) 66 Pulse Location Monitor Respiratory Rate (12-18) 18 Respiratory rate source Observation Oxygen Delivery Method Room Air Blood Pressure (90/60-120/80) 134/63 H Blood Pressure Mean (mm Hg) 86 Source Monitor Position Semi-Fowlers Blood Pressure Location Left Arm History Since Last Visit- (Skip if this is Patient's initial visit) Have you changed medications since your No last visit? Any new allergies or adverse reactions No Had a fall/change in ADL's that may No increase risk of falls Signs or symptoms of abuse and/or No neglect since last visit Have you been in the hospital since your No last visit? Has dressing in place as prescribed Yes Has compression in place as prescribed Yes Has offloadiing in place as prescribed N/A Experienced any changes in pain level or No management Left Footwear Regular Shoe Right Footwear Regular Shoe Pain Scale: 0-10 Numeric Is Patient Pain Free? Yes - Nurse 1 - General Ulcer Measurement Start: 04/20/25 08:43 Freq: Status: Active Protocol: Activity Type Activity Date Activity User E-sign Co-sign Detail Recorded Client Recorded Date Recorded By Document 04/20/25 08:43 KW [id number] 04/20/25 08:52 KW 04/20/25 08:43 Wound Center Nurse 1 #1 L Med Ankle -Current Size (cm) - Length 0.1 -Current Size (cm) - Width 0.1 -Current Size (cm) - Depth 0 -Total Square Cm 0.01 -Date of Last Picture (Recall this 04/20/25 field) -Exudate Type Serosanguineous -Wound Margin Indistinct, Non -Visible -Granulation Amt Medium (34-66%) -Granulation Quality Antelope -Necrosis Amt Medium (34-66%) -Necrotic Tissue Type Adherent Slough -Texture (Megan-wound Skin Appearance) Assessed -Moisture (Megan-wound Skin Appearance) Assessed -Color (Megan-wound Skin Appearance) Assessed, Hemosiderin Staining -Temperature (Megan-wound Skin No Abnormality Appearance) (Pt Warm) -Tenderness on Palpation (Megan-wound No Skin Appearance) -Ulcer Cleansing Soap and Water -Foul Odor after Cleansing No -Anesthetic Used 5% Lidocaine Gel Left Calf (cm) 37.5 Left Ankle (cm) 26.5 - Nurse 2 - General Ulcer CM Notes Start: 04/20/25 08:43 Freq: Status: Active Protocol: Activity Type Activity Date Activity User E-sign Co-sign Detail Recorded Client Recorded Date Recorded By Document 04/20/25 09:11 [facility] [id number] 04/20/25 09:15 BMF Edit Result 04/20/25 09:11 BMF (1) [id number] 04/20/25 09:28 BMF (1) #1 L Med Ankle - Post Debridement (cm) - Length 0.1 => 0.5 - Post Debridement (cm) - Width 0.1 => 0.5 - Total Square (Post) (cm) 0.01 => 0.25 - Area of Debridement (cm) - Length 0.1 => 0.5 - Area of Debridement (cm) - Width 0.1 => 0.5 - Total Square (Area) (cm) 0.01 => 0.25 04/20/25 09:11 Wound Center Nurse 2 #1 L Med Ankle -Time 09:11 -Post Debridement (cm) - Length 0.5 -Post Debridement (cm) - Width 0.5 -Post Debridement (cm) - Depth 0.1 -Total Square (Post) (cm) 0.25 -Area of Debridement (cm) - Length 0.5 -Area of Debridement (cm) - Width 0.5 -Total Square (Area) (cm) 0.25 -Tunneling No -Undermining/Tunneling No -Circular Undermining No -Wound/Ulcer Outcome Not Healed -Bleeding Controlled with NA Pain Scale: 0-10 Numeric Is Patient Pain Free? Yes - Nurse 3 - General Ulcer D/C NN Start: 04/20/25 08:43 Freq: Status: Active Protocol: Activity Type Activity Date Activity User E-sign Co-sign Detail Recorded Client Recorded Date Recorded By Document 04/20/25 09:33 [id number] 04/20/25 09:34 KW 04/20/25 09:33 Wound Care Center Nurse 3 #1 L Med Ankle -Primary Dressing Applied NonAdherent Contact Layer, Silicone Border Foam 4x4 -Silicone Border Foam 4x4 1 LLE -Tubular Bandage Double Layer -Size of Tubigrip Used Size E -Size E ($) 2 Pain Scale: 0-10 Numeric Is Patient Pain Free? Yes WC - Visit Discharge Discharge Condition Stable Ambulatory Status Ambulatory Transportation Private Auto Medication Reconcilliation completed & No provided to patient/care provider Clinical Summary of Care Provided Yes Assessment/Plan Assessment/Plan (1) Non-pressure chronic ulcer of left calf with fat layer exposed: CODE(S): L97.222 - Non-pressure chronic ulcer of left calf with fat layer exposed (2) Venous insufficiency (chronic) (peripheral): CODE(S): I87.2 - Venous insufficiency (chronic) (peripheral) (3) Bilateral lower extremity edema: CODE(S): R60.0 - Localized edema (4) 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: CODE(S): I83.003 - Varicose veins of unspecified lower extremity with ulcer of ankle; L97.302 - Non-pressure chronic ulcer of unspecified ankle with fat layer exposed QUALIFIERS: Varicose vein presence: with varicose veins Laterality: left Qualified Code(s): I83.023 - Varicose veins of left lower extremity with ulcer of ankle; L97.322 - Non-pressure chronic ulcer of left ankle with fat layer exposed PLAN: Plan Patient seen and evaluated Predebridement measurement 0.5 cm x 0.5 cm x 0.1 cm Ulceration site did not undergo debridement as noted in the clinical panel above. Postdebridement measurement 0.5 cm x 0.5 cm x 0.1 cm. Adaptic and SAP XL dressing applied to site. Double Tubigrip compression applied to the left lower extremity. He is to change dressing daily. There is continued reduction in size of ulceration versus previous visit with Adaptic aiding in discouraging skin tears upon dressing changes. Edema is present postprocedure. Overall healing well following his procedure. Stat Doppler for 02/16/2025 was negative for DVT. He did undergo repeat venous study 03/14/25 and underwent venous ablation on April 13. He was again instructed on continued elevation of the lower extremities to aid in edema control. Following healing of ulcerative site he will return to compression stockings however this time we will increase from 20 to 30 mmHg to 30 to 40 mmHg versus application of juxta lite compression. Juxta lite compression wrap was applied for 02/16/2025, awaiting approval. He is following with Dr. Mckee for procedure to aid in his venous insufficiency. Procedure performed 04/13/25. He will follow with Dr. Mckee next week. It does appear procedure has helped improve the wound from his previous visit. Discussed continued diet to aid in healing with adequate protein intake. Discussed signs and symptoms of infection. Discussed if he notices any increasing redness around the ulcerative site that is moved up the leg, purulent drainage from the ulcerative site, increasing foul odor from the ulcerative site, or if he develops fever greater than 101 degree accompanied by nausea, vomiting, chills of these are signs of a progressing infection and he should report to the ED for IV antibiotics and further evaluation. He is understanding of this today. The following work up and care recommendations were made: Dressing: Adaptic and Wrens SAP dressing to the left lower extremity with double Tubigrip compression. Will continue compression stocking to right lower extremity Wash: Soap and water Tissue growth optimization: None Offload: Double Tubigrip Vascular: Does have history of positive venous insufficiency/reflux. Will seek vascular assistance for potential procedure. Edema: Double Tubigrip and elevation of the lower extremities Infection: No signs of infection Pain: May take [id number] Tylenol Extra Strength for discomfort Host factors: Chronic venous insufficiency, chronic lower extremity edema, prolonged standing/activity, advanced age complicate healing. I answered all the patient's questions. To return to the wound healing center in 1 weeks or call sooner if the patient has any questions or concerns.
--- NOTE | 2025-04-24 08:43 | WC ---
PHOTO 04/20/25 LEFT MED ANKLE
--- NOTE | 2025-04-24 08:43 | WC ---
PHOTO 04/20/25 LEFT MED ANKLE
[2025-04-27 08:53] VITALS: BP 139/66; PULSE 68; RESP 18; TEMP 36
--- NOTE | 2025-04-27 09:29 | PN.PCM_ITS ---
History of Present Illness Date of Service: 04/27/25 Chief Complaint: Left medial ankle wound History of Wound: The patient is seen today as a courtesy visit for Dr. Merrill Burns, the patient's regular Wound Center provider. The patient's medical history is as recently documented below. Patient is a 79-year-old male who presents to the wound care center with recurring left lower extremity medial ankle wound. He has PMHx of recurring left lower extremity ulceration secondary to chronic venous insufficiency, history of DVT, obesity, JOSHUA, iron deficient anemia, delayed wound healing, and asthma. He states that he does have compression stockings and continues to wear them. He had been following in the wound care center for a deep ulceration to the medial aspect of the left lower extremity overlying the neurovascular bundle. He did go on to heal this ulceration as of 12/31/[address] Mckee for venogram. He has continued wearing compression stockings however states that while in the shower he did notice a scab of the left medial ankle and after showering applied antibiotic ointment and Band-Aid which later then the scab became soft and opened a small wound. He states that he did see his PCP who did obtain cultures and placed him on oral antibiotic. He was then referred to the wound care center for further follow-up. He denies any further trauma to the site. States that the specific site is recurrent with breakdown of skin. Denies N/V/F/chills. No further complaints. Subjective Subjective This is a 80-year-old male who returns to the wound care center for continued follow-up of a chronic venous stasis/insufficiency ulceration at the medial aspect of the left lower extremity. He underwent vascular procedure with Dr. Mckee on 04/13/25. Had recent follow-up with vascular on 04/26/2025. Continues utilizing Tubigrip compression since procedure however has increased edema secondary to his previous procedure. He denies constitutional symptoms. Denies further complaints. Objective Data Objective Data Vital Signs: Vital Signs Temp Pulse Resp BP O2 Del Method 96.8 F L 68 18 139/66 H Room Air 04/27/25 08:53 04/27/25 08:53 04/27/25 08:53 04/27/25 08:53 04/20/25 08:43 Oxygen Delivery Method Room Air Physical Exam Const alert, oriented x3 and no apparent distress General Appearance: cooperative HEENT normocephalic Eyes General Eye: normal appearance of both eyes Neck General: normal visual inspection Lymph Lymphatic: no lymphadenopathy noted and no lymphedema noted Resp normal respiratory effort Cardio regular rate and regular rhythm Extremity no calf tenderness Extremity Narrative: Left lower extremity: Vascular: DP and PT pulses weakly palpable. Capillary fill time to digits is 5 seconds. Normal temperature gradient. There is absent hair growth to digits noted. Dermatological: There is a full-thickness ulceration noted to the medial aspect of the lower extremity/ankle with mixed granular layer and ongoing epitheli alization. Negative Stemmer sign left foot. There is evidence of stasis dermatitis with hyperpigmentation/hemosiderin deposition/staining of skin left lower extremity. There are varicosities noted of the lower extremity with mild lower extremity edema. There is no erythema or rubor of the left lower extremity. Does have increased edema secondary to his vascular procedure. Musculoskeletal: Muscle strength 5 of 5 age-appropriate. There is decreased range of motion of the ankle joint dorsiflexion with knee extended without pain or crepitus. Decreased range of motion of the STJ, MTJ, and first MTPJ without pain or crepitus. There is pain to palpation of the left calf today with positive Gómez sign and Homans' sign. Skin no rashes or lesions noted General Skin Exam: venous stasis and dermatitis Neuro moves all extremities Debridement Note Debridement Note Wound debrided: Left medial ankle Laterality: Left Wound Grade/Stage: Cisneros stage I Type of Debridement: Excisional debridement Anesthesia Used: 5% Lidocaine Gel Depth: Down to and including healthy tissue and in the subcutaneous layer Percentage of wound debrided: 100 Instrument Used: 3mm curette Tissue Removed: Fibrous, devitalized subcutaneous, biofilm, slough Severity: Fat Layer Exposed Amount of bleeding with debridement: Mild Bleeding Controlled with: Compression and gauze Patient tolerated procedure: Patient tolerated procedure well Post-Debridement Measurements and Additional Note: Post-Debridement Measurements/Treatment WC - Nurse 1 - General Ulcer Assessment Start: 04/20/25 08:43 Freq: Status: Active Protocol: ANAYA Activity Type Activity Date Activity User E-sign Co-sign Detail Recorded Client Recorded Date Recorded By Document 04/20/25 08:43 KW [id number] 04/20/25 08:52 KW Document 04/27/25 08:53 DL [id number] 04/27/25 08:59 DL 04/20/25 04/27/25 08:43 08:53 - Today's Visit Information Type of service Follow-up Visit Follow-up Visit (Physician/[employer] AND POWERPLANT 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 (Physician/AIRFRAME AND POWERPLANT MECHANIC ) ) Arrival Mode Ambulatory Ambulatory Transfer Assistance None Patient Identification Verified (Name & Yes Yes ) Patient Requires Transmission-Based No Precautions Vital Signs Temperature (97.8 F-99.1 F) 96.4 F L 96.8 F L Temperature Source Temporal Temporal Pulse Rate (60-100) 66 68 Pulse Location Monitor Monitor Respiratory Rate (12-18) 18 18 Respiratory rate source Observation Observation Oxygen Delivery Method Room Air Blood Pressure (90/60-120/80) 134/63 H 139/66 H Blood Pressure Mean (mm Hg) 86 90 Source Monitor Monitor Position Semi-Fowlers Blood Pressure Location Left Arm History Since Last Visit- (Skip if this is Patient's initial visit) Have you changed medications since your No No last visit? Any new allergies or adverse reactions No No Had a fall/change in ADL's that may No No increase risk of falls Signs or symptoms of abuse and/or No No neglect since last visit Have you been in the hospital since your No No last visit? Has dressing in place as prescribed Yes Yes Has compression in place as prescribed Yes Yes Has offloadiing in place as prescribed N/A Yes Experienced any changes in pain level or No No management Left Footwear Regular Shoe Regular Shoe Right Footwear Regular Shoe Regular Shoe Pain Scale: 0-10 Numeric Is Patient Pain Free? Yes Yes - Nurse 1 - General Ulcer Measurement Start: 04/20/25 08:43 Freq: Status: Active Protocol: Activity Type Activity Date Activity User E-sign Co-sign Detail Recorded Client Recorded Date Recorded By Document 04/20/25 08:43 KW [id number] 04/20/25 08:52 KW Document 04/27/25 08:53 DL [id number] 04/27/25 08:59 DL 04/20/25 04/27/25 08:43 08:53 Wound Center Nurse 1 #1 L Med Ankle -Current Size (cm) - Length 0.1 0.1 -Current Size (cm) - Width 0.1 0.1 -Current Size (cm) - Depth 0 0.1 -Total Square Cm 0.01 0.01 -Date of Last Picture (Recall this 04/20/25 field) -Photo Taken Yes -Exudate Amt None Present -Exudate Type Serosanguineous -Wound Margin Indistinct, Non Distinct, -Visible Outline Attached -Granulation Amt Medium (34-66%) Large (67-100%) -Granulation Quality [place] Pale,[place] -Necrosis Amt Medium (34-66%) Small (1-33%) -Necrotic Tissue Type Adherent Slough Adherent Slough -Structure Exposed N/A -Texture (Megan-wound Skin Appearance) Assessed Localized Edema ,Scarring -Moisture (Megan-wound Skin Appearance) Assessed No Abnormality -Color (Megan-wound Skin Appearance) Assessed, No Abnormality Hemosiderin Staining -Temperature (Megan-wound Skin No Abnormality No Abnormality Appearance) (Pt Warm) (Pt Warm) -Tenderness on Palpation (Megan-wound No No Skin Appearance) -Ulcer Cleansing Soap and Water Soap and Water -Foul Odor after Cleansing No No -Anesthetic Used 5% Lidocaine 5% Lidocaine Gel Gel Left Calf (cm) 37.5 39.3 Left Ankle (cm) 26.5 24.5 WC - Nurse 2 - General Ulcer CM Notes Start: 04/20/25 08:43 Freq: Status: Active Protocol: Activity Type Activity Date Activity User E-sign Co-sign Detail Recorded Client Recorded Date Recorded By Document 04/20/25 09:11 BMF [id number] 04/20/25 09:15 BMF Edit Result 04/20/25 09:11 BMF (1) [id number] 04/20/25 09:28 BMF Document 04/27/25 09:07 BMF [id number] 04/27/25 09:12 BMF (1) #1 L Med Ankle - Post Debridement (cm) - Length 0.1 => 0.5 - Post Debridement (cm) - Width 0.1 => 0.5 - Total Square (Post) (cm) 0.01 => 0.25 - Area of Debridement (cm) - Length 0.1 => 0.5 - Area of Debridement (cm) - Width 0.1 => 0.5 - Total Square (Area) (cm) 0.01 => 0.25 04/20/25 04/27/25 09:11 09:07 Wound Center Nurse 2 #1 L Med Ankle -Time 09:11 09:07 -Correct Patient Yes -Correct Side, Site, Position Yes -Correct Procedure Yes -Procedure Performed Yes -Type of Procedure Debridement -Clinical Debridement Subcutaneous -Tissue Removed Subcutaneous -Post Debridement (cm) - Length 0.5 1.1 -Post Debridement (cm) - Width 0.5 1.1 -Post Debridement (cm) - Depth 0.1 0.1 -Total Square (Post) (cm) 0.25 1.21 -Area of Debridement (cm) - Length 0.5 1.1 -Area of Debridement (cm) - Width 0.5 1.1 -Total Square (Area) (cm) 0.25 1.21 -Tunneling No No -Undermining/Tunneling No No -Circular Undermining No No -Wound/Ulcer Outcome Not Healed Not Healed -Ulcer Cleansing Rinsed/ Irrigated with Saline -Foul Odor after Cleansing No -Bioengineered Tissue No -Bleeding Controlled with NA Pressure -Treatment Response Procedure Tolerated Well -Debridement - Subq, 1st 20sq cm Yes Pain Scale: 0-10 Numeric Is Patient Pain Free? Yes Yes - Nurse 3 - General Ulcer D/C NN Start: 04/20/25 08:43 Freq: Status: Active Protocol: Activity Type Activity Date Activity User E-sign Co-sign Detail Recorded Client Recorded Date Recorded By Document 04/20/25 09:33 [id number] 04/20/25 09:34 Document 04/27/25 09:24 [facility] [id number] 04/27/25 09:25 [facility] 04/20/25 04/27/25 09:33 09:24 Wound Care Center Nurse 3 #1 L Med Ankle -Ulcer Cleansing Rinsed/ Irrigated with Saline -Foul Odor after Cleansing No -Primary Dressing Applied NonAdherent NonAdherent Contact Layer, Contact Layer, Silicone Border Silicone Border Foam 4x4 Foam 4x4 -Other Dressing adaptic -Silicone Border Foam 4x4 1 1 LLE -Tubular Bandage Double Layer Double Layer -Size of Tubigrip Used Size E Size D -Size D ($) 2 -Size E ($) 2 Pain Scale: 0-10 Numeric Is Patient Pain Free? Yes Yes - Visit Discharge Discharge Condition Stable Stable Ambulatory Status Ambulatory Ambulatory Transportation Private Auto Private Auto Medication Reconcilliation completed & No provided to patient/care provider Clinical Summary of Care Provided Yes Assessment/Plan Assessment/Plan (1) Non-pressure chronic ulcer of left calf with fat layer exposed: CODE(S): L97.222 - Non-pressure chronic ulcer of left calf with fat layer exposed (2) Venous insufficiency (chronic) (peripheral): CODE(S): I87.2 - Venous insufficiency (chronic) (peripheral) (3) Bilateral lower extremity edema: CODE(S): R60.0 - Localized edema (4) 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: CODE(S): I83.003 - Varicose veins of unspecified lower extremity with ulcer of ankle; L97.302 - Non-pressure chronic ulcer of unspecified ankle with fat layer exposed QUALIFIERS: Varicose vein presence: with varicose veins Laterality: left Qualified Code(s): I83.023 - Varicose veins of left lower extremity with ulcer of ankle; L97.322 - Non-pressure chronic ulcer of left ankle with fat layer exposed PLAN: Plan Patient seen and evaluated Predebridement measurement 1.0 cm x 1.0 cm x 0.1 cm Ulceration site did undergo debridement as noted in the clinical panel above. Postdebridement measurement 1.1 cm x 1.1 cm x 0.1 cm. Adaptic and SAP XL dressing applied to site. Double Tubigrip compression, size D applied to the left lower extremity. He is to change dressing daily. There is some increase in size of ulceration versus previous visit due to increased lower extremity swelling. Will continue with Adaptic to discourage skin tears upon dressing changes. Edema is present postprocedure, will switch to lower size of his double Tubigrip compression to aid in edema control. Overall healing well following his procedure. Stat Doppler for 02/16/2025 was negative for DVT. He did undergo repeat venous study 03/14/25 and underwent venous ablation on April 13. He was again instructed on continued elevation of the lower extremities to aid in edema control. Following healing of ulcerative site he will return to compression stockings however this time we will increase from 20 to 30 mmHg to 30 to 40 mmHg versus application of juxta lite compression. Juxta lite compression wrap was applied for 02/16/2025, awaiting approval. He is following with Dr. Mckee for procedure to aid in his venous insufficiency. Procedure performed 04/13/25. Recent visit with Dr. Mckee 04/26/2025. Discussed continued diet to aid in healing with adequate protein intake. Discussed signs and symptoms of infection. Discussed if he notices any increasi ng redness around the ulcerative site that is moved up the leg, purulent drainage from the ulcerative site, increasing foul odor from the ulcerative site, or if he develops fever greater than 101 degree accompanied by nausea, vomiting, chills of these are signs of a progressing infection and he should report to the ED for IV antibiotics and further evaluation. He is understanding of this today. The following work up and care recommendations were made: Dressing: Adaptic and [place] SAP dressing to the left lower extremity with double Tubigrip compression. Will continue compression stocking to right lower extremity Wash: Soap and water Tissue growth optimization: None Offload: Double Tubigrip Vascular: Does have history of positive venous insufficiency/reflux. Will seek vascular assistance for potential procedure. Edema: Double Tubigrip and elevation of the lower extremities Infection: No signs of infection Pain: May take [id number] Tylenol Extra Strength for discomfort Host factors: Chronic venous insufficiency, chronic lower extremity edema, prolonged standing/activity, advanced age complicate healing. I answered all the patient's questions. To return to the wound healing center in 1 weeks or call sooner if the patient has any questions or concerns.
--- NOTE | 2025-04-28 10:04 | WC ---
PHOTO LEFT MED ANKLE 04/27/25
--- NOTE | 2025-04-28 10:04 | WC ---
PHOTO LEFT MED ANKLE 04/27/25
[2025-05-04 08:54] VITALS: BP 137/83; PULSE 69; RESP 18; TEMP 36
--- NOTE | 2025-05-04 09:24 | PN.PCM_ITS ---
History of Present Illness Date of Service: 05/04/25 Chief Complaint: Left medial ankle wound History of Wound: The patient is seen today as a courtesy visit for Dr. Merrill Burns, the patient's regular Wound Center provider. The patient's medical history is as recently documented below. Patient is a 79-year-old male who presents to the wound care center with recurring left lower extremity medial ankle wound. He has PMHx of recurring left lower extremity ulceration secondary to chronic venous insufficiency, history of DVT, obesity, JOSHUA, iron deficient anemia, delayed wound healing, and asthma. He states that he does have compression stockings and continues to wear them. He had been following in the wound care center for a deep ulceration to the medial aspect of the left lower extremity overlying the neurovascular bundle. He did go on to heal this ulceration as of 12/31/[address] Mckee for venogram. He has continued wearing compression stockings however states that while in the shower he did notice a scab of the left medial ankle and after showering applied antibiotic ointment and Band-Aid which later then the scab became soft and opened a small wound. He states that he did see his PCP who did obtain cultures and placed him on oral antibiotic. He was then referred to the wound care center for further follow-up. He denies any further trauma to the site. States that the specific site is recurrent with breakdown of skin. Denies N/V/F/chills. No further complaints. Subjective Subjective This is a 80-year-old male who returns to the wound care center for continued follow-up of a chronic venous stasis/insufficiency ulceration at the medial aspect of the left lower extremity. He underwent vascular procedure with Dr. Mckee on 04/13/25. Had recent follow-up with vascular on 04/26/2025. Continues utilizing Tubigrip compression since procedure however has increased edema secondary to his previous procedure. He states that going down the size in his Tubigrip has helped in addition to elevating his legs higher than what he previously had been. He denies constitutional symptoms. Denies further complaints. Objective Data Objective Data Vital Signs: Vital Signs Temp Pulse Resp BP O2 Del Method 96.8 F L 69 18 137/83 H Room Air 05/04/25 08:54 05/04/25 08:54 05/04/25 08:54 05/04/25 08:54 05/04/25 08:54 Oxygen Delivery Method Room Air Physical Exam Const alert, oriented x3 and no apparent distress General Appearance: cooperative HEENT normocephalic Eyes General Eye: normal appearance of both eyes Neck General: normal visual inspection Lymph Lymphatic: no lymphadenopathy noted and no lymphedema noted Resp normal respiratory effort Cardio regular rate and regular rhythm Extremity no calf tenderness Extremity Narrative: Left lower extremity: Vascular: DP and PT pulses weakly palpable. Capillary fill time to digits is 5 seconds. Normal temperature gradient. There is absent hair growth to digits noted. Dermatological: There is a full-thickness ulceration noted to the medial aspect of the lower extremity/ankle with mixed granular layer and ongoing epithelialization. Negative Stemmer sign left foot. There is evidence of stasis dermatitis with hyperpigmentation/hemosiderin deposition/staining of skin left lower extremity. There are varicosities noted of the lower extremity with mild lower extremity edema. There is no erythema or rubor of the left lower extremity. Does have increased edema secondary to his vascular procedure. Musculoskeletal: Muscle strength 5 of 5 age-appropriate. There is decreased range of motion of the ankle joint dorsiflexion with knee extended without pain or crepitus. Decreased range of motion of the STJ, MTJ, and first MTPJ without pain or crepitus. There is pain to palpation of the left calf today with positive Gómez sign and Homans' sign. Skin no rashes or lesions noted General Skin Exam: venous stasis and dermatitis Neuro moves all extremities Debridement Note Debridement Note Wound debrided: Left medial lower extremity Laterality: Left Wound Grade/Stage: Cisneros stage I Type of Debridement: Excisional debridement Anesthesia Used: 5% Lidocaine Gel Depth: Down to and including healthy tissue and in the subcutaneous layer Percentage of wound debrided: 100 Instrument Used: 3mm curette Tissue Removed: Fibrous, devitalized subcutaneous, biofilm, slough Severity: Fat Layer Exposed Amount of bleeding with debridement: Mild Bleeding Controlled with: Compression and gauze Patient tolerated procedure: Patient tolerated procedure well Post-Debridement Measurements and Additional Note: Post-Debridement Measurements/Treatment LA NENA - Nurse 1 - General Ulcer Assessment Start: 04/20/25 08:43 Freq: Status: Active Protocol: ANAYA Activity Type Activity Date Activity User E-sign Co-sign Detail Recorded Client Recorded Date Recorded By Document 04/20/25 08:43 KW [id number] 04/20/25 08:52 KW Document 04/27/25 08:53 DL [id number] 04/27/25 08:59 DL Document 05/04/25 08:54 KW [id number] 05/04/25 08:59 KW 04/20/25 04/27/25 05/04/25 08:43 08:53 08:54 - Today's Visit Information Type of service Follow-up Visit Follow-up Visit Follow-up Visit (Physician/PRESSURE TEST OPERATOR (Physician/PRESSURE TEST OPERATOR (Physician/PRESSURE TEST OPERATOR ) ) ) Arrival Mode Ambulatory Ambulatory Ambulatory Transfer Assistance None Patient Identification Verified (Name & Yes Yes Yes ) Patient Requires Transmission-Based No Precautions Vital Signs Temperature (97.8 F-99.1 F) 96.4 F L 96.8 F L 96.8 F L Temperature Source Temporal Temporal Temporal Pulse Rate (60-100) 66 68 69 Pulse Location Monitor Monitor Monitor Respiratory Rate (12-18) 18 18 18 Respiratory rate source Observation Observation Observation Oxygen Delivery Method Room Air Room Air Blood Pressure (90/60-120/80) 134/63 H 139/66 H 137/83 H Blood Pressure Mean (mm Hg) 86 90 101 Source Monitor Monitor Monitor Position Semi-Fowlers Semi-Fowlers Blood Pressure Location Left Arm Right Arm History Since Last Visit- (Skip if this is Patient's initial visit) Have you changed medications since your No No No last visit? Any new allergies or adverse reactions No No No Had a fall/change in ADL's that may No No No increase risk of falls Signs or symptoms of abuse and/or No No No neglect since last visit Have you been in the hospital since your No No No last visit? Has dressing in place as prescribed Yes Yes Yes Has compression in place as prescribed Yes Yes Yes Has offloadiing in place as prescribed N/A Yes N/A Experienced any changes in pain level or No No No management Left Footwear Regular Shoe Regular Shoe Regular Shoe Right Footwear Regular Shoe Regular Shoe Regular Shoe Pain Scale: 0-10 Numeric Is Patient Pain Free? Yes Yes Yes - Nurse 1 - General Ulcer Measurement Start: 04/20/25 08:43 Freq: Status: Active Protocol: Activity Type Activity Date Activity User E-sign Co-sign Detail Recorded Client Recorded Date Recorded By Document 04/20/25 08:43 KW [id number] 04/20/25 08:52 KW Document 04/27/25 08:53 DL [id number] 04/27/25 08:59 DL Document 05/04/25 08:54 KW [id number] 05/04/25 08:59 KW 04/20/25 04/27/25 05/04/25 08:43 08:53 08:54 Wound Center Nurse 1 #1 L Med Ankle -Current Size (cm) - Length 0.1 0.1 1.1 -Current Size (cm) - Width 0.1 0.1 1.1 -Current Size (cm) - Depth 0 0.1 0.1 -Total Square Cm 0.01 0.01 1.21 -Date of Last Picture (Recall this 04/20/25 field) -Photo Taken Yes -Exudate Amt None Present Large -Exudate Type Serosanguineous Serosanguineous -Wound Margin Indistinct, Non Distinct, Indistinct, Non -Visible Outline -Visible Attached -Granulation Amt Medium (34-66%) Large (67-100%) Large (67-100%) -Granulation Quality [place] Pale,[place] -Necrosis Amt Medium (34-66%) Small (1-33%) -Necrotic Tissue Type Adherent Slough Adherent Slough -Structure Exposed N/A -Texture (Megan-wound Skin Appearance) Assessed Localized Edema Assessed, ,Scarring Localized Edema -Moisture (Megan-wound Skin Appearance) Assessed No Abnormality Assessed,Dry/ Scaly -Color (Megan-wound Skin Appearance) Assessed, No Abnormality Assessed, Hemosiderin Erythema Staining -Temperature (Megan-wound Skin No Abnormality No Abnormality No Abnormality Appearance) (Pt Warm) (Pt Warm) (Pt Warm) -Tenderness on Palpation (Megan-wound No No No Skin Appearance) -Ulcer Cleansing Soap and Water Soap and Water Rinsed/ Irrigated with Saline -Foul Odor after Cleansing No No -Anesthetic Used 5% Lidocaine 5% Lidocaine 5% Lidocaine Gel Gel Gel Left Calf (cm) 37.5 39.3 39.5 Left Ankle (cm) 26.5 24.5 23 WC - Nurse 2 - General Ulcer CM Notes Start: 04/20/25 08:43 Freq: Status: Active Protocol: Activity Type Activity Date Activity User E-sign Co-sign Detail Recorded Client Recorded Date Recorded By Document 04/20/25 09:11 BMF [id number] 04/20/25 09:15 BMF Edit Result 04/20/25 09:11 BMF (1) 10.10.25.7 04/20/25 09:28 BMF Document 04/27/25 09:07 BMF [id number] 04/27/25 09:12 BMF Document 05/04/25 09:09 BMF [id number] 05/04/25 09:13 BMF (1) #1 L Med Ankle - Post Debridement (cm) - Length 0.1 => 0.5 - Post Debridement (cm) - Width 0.1 => 0.5 - Total Square (Post) (cm) 0.01 => 0.25 - Area of Debridement (cm) - Length 0.1 => 0.5 - Area of Debridement (cm) - Width 0.1 => 0.5 - Total Square (Area) (cm) 0.01 => 0.25 04/20/25 04/27/25 05/04/25 09:11 09:07 09:09 Wound Center Nurse 2 #1 L Med Ankle -Time 09:11 09:07 09:09 -Correct Patient Yes Yes -Correct Side, Site, Position Yes Yes -Correct Procedure Yes Yes -Procedure Performed Yes Yes -Type of Procedure Debridement Debridement -Clinical Debridement Subcutaneous Subcutaneous -Tissue Removed Subcutaneous Subcutaneous -Post Debridement (cm) - Length 0.5 1.1 2 -Post Debridement (cm) - Width 0.5 1.1 1.6 -Post Debridement (cm) - Depth 0.1 0.1 0.1 -Total Square (Post) (cm) 0.25 1.21 3.2 -Area of Debridement (cm) - Length 0.5 1.1 2 -Area of Debridement (cm) - Width 0.5 1.1 1.6 -Total Square (Area) (cm) 0.25 1.21 3.2 -Tunneling No No No -Undermining/Tunneling No No No -Circular Undermining No No No -Wound/Ulcer Outcome Not Healed Not Healed Not Healed -Ulcer Cleansing Rinsed/ Rinsed/ Irrigated with Irrigated with Saline Saline -Foul Odor after Cleansing No No -Bioengineered Tissue No No -Bleeding Controlled with NA Pressure Pressure -Treatment Response Procedure Procedure Tolerated Well Tolerated Well -Debridement - Subq, 1st 20sq cm Yes Yes Pain Scale: 0-10 Numeric Is Patient Pain Free? Yes Yes Yes - Nurse 3 - General Ulcer D/C NN Start: 04/20/25 08:43 Freq: Status: Active Protocol: Activity Type Activity Date Activity User E-sign Co-sign Detail Recorded Client Recorded Date Recorded By Document 04/20/25 09:33 KW [id number] 04/20/25 09:34 KW Document 04/27/25 09:24 BM [id number] 04/27/25 09:25 BMF Document 05/04/25 09:22 BM [id number] 05/04/25 09:22 BMF 04/20/25 04/27/25 05/04/25 09:33 09:24 09:22 Wound Care Center Nurse 3 #1 L Med Ankle -Ulcer Cleansing Rinsed/ Rinsed/ Irrigated with Irrigated with Saline Saline -Foul Odor after Cleansing No No -Primary Dressing Applied NonAdherent NonAdherent NonAdherent Contact Layer, Contact Layer, Contact Layer, Silicone Border Silicone Border Silicone Border Foam 4x4 Foam 4x4 Foam 4x4 -Other Dressing adaptic BETADINE -Silicone Border Foam 4x4 1 1 1 LLE -Tubular Bandage Double Layer Double Layer Double Layer -Size of Tubigrip Used Size E Size D Size D -Size D ($) 2 2 -Size E ($) 2 Treatment Response Procedure Tolerated Well Pain Scale: 0-10 Numeric Is Patient Pain Free? Yes Yes Yes - Visit Discharge Discharge Condition Stable Stable Stable Ambulatory Status Ambulatory Ambulatory Ambulatory Transportation Private Auto Private Auto Private Auto Medication Reconcilliation completed & No provided to patient/care provider Clinical Summary of Care Provided Yes Assessment/Plan Assessment/Plan (1) Non-pressure chronic ulcer of left calf with fat layer exposed: CODE(S): L97.222 - Non-pressure chronic ulcer of left calf with fat layer exposed (2) Venous insufficiency (chronic) (peripheral): CODE(S): I87.2 - Venous insufficiency (chronic) (peripheral) (3) Bilateral lower extremity edema: CODE(S): R60.0 - Localized edema (4) 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: CODE(S): I83.003 - Varicose veins of unspecified lower extremity with ulcer of ankle; L97.302 - Non-pressure chronic ulcer of unspecified ankle with fat layer exposed QUALIFIERS: Varicose vein presence: with varicose veins Laterality: left Qualified Code(s): I83.023 - Varicose veins of left lower extremity with ulcer of ankle; L97.322 - Non-pressure chronic ulcer of left ankle with fat layer exposed PLAN: Plan Patient seen and evaluated Predebridement measurement 1.9 cm x 1.5 cm x 0.1 cm Ulceration site did undergo debridement as noted in the clinical panel above. Postdebridement measurement 2.0 cm x 1.6 cm x 0.1 cm. Betadine to wound site, Adaptic, and SAP XL dressing applied to site. Double Tubigrip compression, size D applied to the left lower extremity. He is to change dressing daily. There is some increase in size of ulceration versus previous visit due to increased lower extremity swelling and continued serous drainage post procedure. Stat Doppler for 02/16/2025 was negative for DVT. He did undergo repeat venous study 03/14/25 and underwent venous ablation on April 13. He was again instructed on continued elevation of the lower extremities to aid in edema control. Following healing of ulcerative site he will return to compression stockings however this time we will increase from 20 to 30 mmHg to 30 to 40 mmHg versus application of juxta lite compression. Juxta lite compression wrap was applied for 02/16/2025, awaiting approval. He is following with Dr. Mckee for procedure to aid in his venous insufficiency. Procedure performed 04/13/25. Recent visit with Dr. Mckee 04/26/2025. Discussed continued diet to aid in healing with adequate protein intake. Discussed signs and symptoms of infection. Discussed if he notices any increasing redness around the ulcerative site that is moved up the leg, purulent drainage from the ulcerative site, increasing foul odor from the ulcerative site, or if he develops fever greater than 101 degree accompanied by nausea, vomiting, chills of these are signs of a progressing infection and he should report to the ED for IV antibiotics and further evaluation. He is understanding of this today. The following work up and care recommendations were made: Dressing: Betadine to wound site, Adaptic, and [place] SAP dressing to the left lower extremity with double Tubigrip compression. Will continue compression stocking to right lower extremity Wash: Soap and water Tissue growth optimization: None Offload: Double Tubigrip Vascular: Does have history of positive venous insufficiency/reflux. Will seek vascular assistance for potential procedure. Edema: Double Tubigrip and elevation of the lower extremities Infection: No signs of infection Pain: May take [id number] Tylenol Extra Strength for discomfort Host factors: Chronic venous insufficiency, chronic lower extremity edema, prolonged standing/activity, advanced age complicate healing. I answered all the patient's questions. To return to the wound healing center in 1 weeks or call sooner if the patient has any questions or concerns.
--- NOTE | 2025-05-04 09:24 | PN.PCM_ITS ---
History of Present Illness Date of Service: 05/04/25 Chief Complaint: Left medial ankle wound History of Wound: The patient is seen today as a courtesy visit for Dr. Merrill Burns, the patient's regular Wound Center provider. The patient's medical history is as recently documented below. Patient is a 79-year-old male who presents to the wound care center with recurring left lower extremity medial ankle wound. He has PMHx of recurring left lower extremity ulceration secondary to chronic venous insufficiency, history of DVT, obesity, JOSHUA, iron deficient anemia, delayed wound healing, and asthma. He states that he does have compression stockings and continues to wear them. He had been following in the wound care center for a deep ulceration to the medial aspect of the left lower extremity overlying the neurovascular bundle. He did go on to heal this ulceration as of 12/31/[address] Mckee for venogram. He has continued wearing compression stockings however states that while in the shower he did notice a scab of the left medial ankle and after showering applied antibiotic ointment and Band-Aid which later then the scab became soft and opened a small wound. He states that he did see his PCP who did obtain cultures and placed him on oral antibiotic. He was then referred to the wound care center for further follow-up. He denies any further trauma to the site. States that the specific site is recurrent with breakdown of skin. Denies N/V/F/chills. No further complaints. Subjective Subjective This is a 80-year-old male who returns to the wound care center for continued follow-up of a chronic venous stasis/insufficiency ulceration at the medial aspect of the left lower extremity. He underwent vascular procedure with Dr. Mckee on 04/13/25. Had recent follow-up with vascular on 04/26/2025. Continues utilizing Tubigrip compression since procedure however has increased edema secondary to his previous procedure. He states that going down the size in his Tubigrip has helped in addition to elevating his legs higher than what he previously had been. He denies constitutional symptoms. Denies further complaints. Objective Data Objective Data Vital Signs: Vital Signs Temp Pulse Resp BP O2 Del Method 96.8 F L 69 18 137/83 H Room Air 05/04/25 08:54 05/04/25 08:54 05/04/25 08:54 05/04/25 08:54 05/04/25 08:54 Oxygen Delivery Method Room Air Physical Exam Const alert, oriented x3 and no apparent distress General Appearance: cooperative HEENT normocephalic Eyes General Eye: normal appearance of both eyes Neck General: normal visual inspection Lymph Lymphatic: no lymphadenopathy noted and no lymphedema noted Resp normal respiratory effort Cardio regular rate and regular rhythm Extremity no calf tenderness Extremity Narrative: Left lower extremity: Vascular: DP and PT pulses weakly palpable. Capillary fill time to digits is 5 seconds. Normal temperature gradient. There is absent hair growth to digits noted. Dermatological: There is a full-thickness ulceration noted to the medial aspect of the lower extremity/ankle with mixed granular layer and ongoing epithelialization. Negative Stemmer sign left foot. There is evidence of stasis dermatitis with hyperpigmentation/hemosiderin deposition/staining of skin left lower extremity. There are varicosities noted of the lower extremity with mild lower extremity edema. There is no erythema or rubor of the left lower extremity. Does have increased edema secondary to his vascular procedure. Musculoskeletal: Muscle strength 5 of 5 age-appropriate. There is decreased range of motion of the ankle joint dorsiflexion with knee extended without pain or crepitus. Decreased range of motion of the STJ, MTJ, and first MTPJ without pain or crepitus. There is pain to palpation of the left calf today with positive Gómez sign and Homans' sign. Skin no rashes or lesions noted General Skin Exam: venous stasis and dermatitis Neuro moves all extremities Debridement Note Debridement Note Wound debrided: Left medial lower extremity Laterality: Left Wound Grade/Stage: Cisneros stage I Type of Debridement: Excisional debridement Anesthesia Used: 5% Lidocaine Gel Depth: Down to and including healthy tissue and in the subcutaneous layer Percentage of wound debrided: 100 Instrument Used: 3mm curette Tissue Removed: Fibrous, devitalized subcutaneous, biofilm, slough Severity: Fat Layer Exposed Amount of bleeding with debridement: Mild Bleeding Controlled with: Compression and gauze Patient tolerated procedure: Patient tolerated procedure well Post-Debridement Measurements and Additional Note: Post-Debridement Measurements/Treatment LA NENA - Nurse 1 - General Ulcer Assessment Start: 04/20/25 08:43 Freq: Status: Active Protocol: ANAYA Activity Type Activity Date Activity User E-sign Co-sign Detail Recorded Client Recorded Date Recorded By Document 04/20/25 08:43 KW [id number] 04/20/25 08:52 KW Document 04/27/25 08:53 DL [id number] 04/27/25 08:59 DL Document 05/04/25 08:54 KW [id number] 05/04/25 08:59 KW 04/20/25 04/27/25 05/04/25 08:43 08:53 08:54 - Today's Visit Information Type of service Follow-up Visit Follow-up Visit Follow-up Visit (Physician/RESIDENTIAL THERAPIST (Physician/RESIDENTIAL THERAPIST (Physician/RESIDENTIAL THERAPIST ) ) ) Arrival Mode Ambulatory Ambulatory Ambulatory Transfer Assistance None Patient Identification Verified (Name & Yes Yes Yes ) Patient Requires Transmission-Based No Precautions Vital Signs Temperature (97.8 F-99.1 F) 96.4 F L 96.8 F L 96.8 F L Temperature Source Temporal Temporal Temporal Pulse Rate (60-100) 66 68 69 Pulse Location Monitor Monitor Monitor Respiratory Rate (12-18) 18 18 18 Respiratory rate source Observation Observation Observation Oxygen Delivery Method Room Air Room Air Blood Pressure (90/60-120/80) 134/63 H 139/66 H 137/83 H Blood Pressure Mean (mm Hg) 86 90 101 Source Monitor Monitor Monitor Position Semi-Fowlers Semi-Fowlers Blood Pressure Location Left Arm Right Arm History Since Last Visit- (Skip if this is Patient's initial visit) Have you changed medications since your No No No last visit? Any new allergies or adverse reactions No No No Had a fall/change in ADL's that may No No No increase risk of falls Signs or symptoms of abuse and/or No No No neglect since last visit Have you been in the hospital since your No No No last visit? Has dressing in place as prescribed Yes Yes Yes Has compression in place as prescribed Yes Yes Yes Has offloadiing in place as prescribed N/A Yes N/A Experienced any changes in pain level or No No No management Left Footwear Regular Shoe Regular Shoe Regular Shoe Right Footwear Regular Shoe Regular Shoe Regular Shoe Pain Scale: 0-10 Numeric Is Patient Pain Free? Yes Yes Yes - Nurse 1 - General Ulcer Measurement Start: 04/20/25 08:43 Freq: Status: Active Protocol: Activity Type Activity Date Activity User E-sign Co-sign Detail Recorded Client Recorded Date Recorded By Document 04/20/25 08:43 KW [id number] 04/20/25 08:52 KW Document 04/27/25 08:53 DL [id number] 04/27/25 08:59 DL Document 05/04/25 08:54 KW [id number] 05/04/25 08:59 KW 04/20/25 04/27/25 05/04/25 08:43 08:53 08:54 Wound Center Nurse 1 #1 L Med Ankle -Current Size (cm) - Length 0.1 0.1 1.1 -Current Size (cm) - Width 0.1 0.1 1.1 -Current Size (cm) - Depth 0 0.1 0.1 -Total Square Cm 0.01 0.01 1.21 -Date of Last Picture (Recall this 04/20/25 field) -Photo Taken Yes -Exudate Amt None Present Large -Exudate Type Serosanguineous Serosanguineous -Wound Margin Indistinct, Non Distinct, Indistinct, Non -Visible Outline -Visible Attached -Granulation Amt Medium (34-66%) Large (67-100%) Large (67-100%) -Granulation Quality [place] -Necrosis Amt Medium (34-66%) Small (1-33%) -Necrotic Tissue Type Adherent Slough Adherent Slough -Structure Exposed N/A -Texture (Megan-wound Skin Appearance) Assessed Localized Edema Assessed, ,Scarring Localized Edema -Moisture (Megan-wound Skin Appearance) Assessed No Abnormality Assessed,Dry/ Scaly -Color (Megan-wound Skin Appearance) Assessed, No Abnormality Assessed, Hemosiderin Erythema Staining -Temperature (Megan-wound Skin No Abnormality No Abnormality No Abnormality Appearance) (Pt Warm) (Pt Warm) (Pt Warm) -Tenderness on Palpation (Megan-wound No No No Skin Appearance) -Ulcer Cleansing Soap and Water Soap and Water Rinsed/ Irrigated with Saline -Foul Odor after Cleansing No No -Anesthetic Used 5% Lidocaine 5% Lidocaine 5% Lidocaine Gel Gel Gel Left Calf (cm) 37.5 39.3 39.5 Left Ankle (cm) 26.5 24.5 23 WC - Nurse 2 - General Ulcer CM Notes Start: 04/20/25 08:43 Freq: Status: Active Protocol: Activity Type Activity Date Activity User E-sign Co-sign Detail Recorded Client Recorded Date Recorded By Document 04/20/25 09:11 BMF [id number] 04/20/25 09:15 BMF Edit Result 04/20/25 09:11 BMF (1) 10.10.25.7 04/20/25 09:28 BMF Document 04/27/25 09:07 BMF [id number] 04/27/25 09:12 BMF Document 05/04/25 09:09 BMF [id number] 05/04/25 09:13 BMF (1) #1 L Med Ankle - Post Debridement (cm) - Length 0.1 => 0.5 - Post Debridement (cm) - Width 0.1 => 0.5 - Total Square (Post) (cm) 0.01 => 0.25 - Area of Debridement (cm) - Length 0.1 => 0.5 - Area of Debridement (cm) - Width 0.1 => 0.5 - Total Square (Area) (cm) 0.01 => 0.25 04/20/25 04/27/25 05/04/25 09:11 09:07 09:09 Wound Center Nurse 2 #1 L Med Ankle -Time 09:11 09:07 09:09 -Correct Patient Yes Yes -Correct Side, Site, Position Yes Yes -Correct Procedure Yes Yes -Procedure Performed Yes Yes -Type of Procedure Debridement Debridement -Clinical Debridement Subcutaneous Subcutaneous -Tissue Removed Subcutaneous Subcutaneous -Post Debridement (cm) - Length 0.5 1.1 2 -Post Debridement (cm) - Width 0.5 1.1 1.6 -Post Debridement (cm) - Depth 0.1 0.1 0.1 -Total Square (Post) (cm) 0.25 1.21 3.2 -Area of Debridement (cm) - Length 0.5 1.1 2 -Area of Debridement (cm) - Width 0.5 1.1 1.6 -Total Square (Area) (cm) 0.25 1.21 3.2 -Tunneling No No No -Undermining/Tunneling No No No -Circular Undermining No No No -Wound/Ulcer Outcome Not Healed Not Healed Not Healed -Ulcer Cleansing Rinsed/ Rinsed/ Irrigated with Irrigated with Saline Saline -Foul Odor after Cleansing No No -Bioengineered Tissue No No -Bleeding Controlled with NA Pressure Pressure -Treatment Response Procedure Procedure Tolerated Well Tolerated Well -Debridement - Subq, 1st 20sq cm Yes Yes Pain Scale: 0-10 Numeric Is Patient Pain Free? Yes Yes Yes - Nurse 3 - General Ulcer D/C NN Start: 04/20/25 08:43 Freq: Status: Active Protocol: Activity Type Activity Date Activity User E-sign Co-sign Detail Recorded Client Recorded Date Recorded By Document 04/20/25 09:33 KW [id number] 04/20/25 09:34 KW Document 04/27/25 09:24 BM [id number] 04/27/25 09:25 BMF Document 05/04/25 09:22 BM [id number] 05/04/25 09:22 BMF 04/20/25 04/27/25 05/04/25 09:33 09:24 09:22 Wound Care Center Nurse 3 #1 L Med Ankle -Ulcer Cleansing Rinsed/ Rinsed/ Irrigated with Irrigated with Saline Saline -Foul Odor after Cleansing No No -Primary Dressing Applied NonAdherent NonAdherent NonAdherent Contact Layer, Contact Layer, Contact Layer, Silicone Border Silicone Border Silicone Border Foam 4x4 Foam 4x4 Foam 4x4 -Other Dressing adaptic BETADINE -Silicone Border Foam 4x4 1 1 1 LLE -Tubular Bandage Double Layer Double Layer Double Layer -Size of Tubigrip Used Size E Size D Size D -Size D ($) 2 2 -Size E ($) 2 Treatment Response Procedure Tolerated Well Pain Scale: 0-10 Numeric Is Patient Pain Free? Yes Yes Yes - Visit Discharge Discharge Condition Stable Stable Stable Ambulatory Status Ambulatory Ambulatory Ambulatory Transportation Private Auto Private Auto Private Auto Medication Reconcilliation completed & No provided to patient/care provider Clinical Summary of Care Provided Yes Assessment/Plan Assessment/Plan (1) Non-pressure chronic ulcer of left calf with fat layer exposed: CODE(S): L97.222 - Non-pressure chronic ulcer of left calf with fat layer exposed (2) Venous insufficiency (chronic) (peripheral): CODE(S): I87.2 - Venous insufficiency (chronic) (peripheral) (3) Bilateral lower extremity edema: CODE(S): R60.0 - Localized edema (4) 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: CODE(S): I83.003 - Varicose veins of unspecified lower extremity with ulcer of ankle; L97.302 - Non-pressure chronic ulcer of unspecified ankle with fat layer exposed QUALIFIERS: Varicose vein presence: with varicose veins Laterality: left Qualified Code(s): I83.023 - Varicose veins of left lower extremity with ulcer of ankle; L97.322 - Non-pressure chronic ulcer of left ankle with fat layer exposed PLAN: Plan Patient seen and evaluated Predebridement measurement 1.9 cm x 1.5 cm x 0.1 cm Ulceration site did undergo debridement as noted in the clinical panel above. Postdebridement measurement 2.0 cm x 1.6 cm x 0.1 cm. Betadine to wound site, Adaptic, and SAP XL dressing applied to site. Double Tubigrip compression, size D applied to the left lower extremity. He is to change dressing daily. There is some increase in size of ulceration versus previous visit due to increased lower extremity swelling and continued serous drainage post procedure. Stat Doppler for 02/16/2025 was negative for DVT. He did undergo repeat venous study 03/14/25 and underwent venous ablation on April 13. He was again instructed on continued elevation of the lower extremities to aid in edema control. Following healing of ulcerative site he will return to compression stockings however this time we will increase from 20 to 30 mmHg to 30 to 40 mmHg versus application of juxta lite compression. Juxta lite compression wrap was applied for 02/16/2025, awaiting approval. He is following with Dr. Mckee for procedure to aid in his venous insufficiency. Procedure performed 04/13/25. Recent visit with Dr. Mckee 04/26/2025. Discussed continued diet to aid in healing with adequate protein intake. Discussed signs and symptoms of infection. Discussed if he notices any increasing redness around the ulcerative site that is moved up the leg, purulent drainage from the ulcerative site, increasing foul odor from the ulcerative site, or if he develops fever greater than 101 degree accompanied by nausea, vomiting, chills of these are signs of a progressing infection and he should report to the ED for IV antibiotics and further evaluation. He is understanding of this today. The following work up and care recommendations were made: Dressing: Betadine to wound site, Adaptic, and [place] SAP dressing to the left lower extremity with double Tubigrip compression. Will continue compression stocking to right lower extremity Wash: Soap and water Tissue growth optimization: None Offload: Double Tubigrip Vascular: Does have history of positive venous insufficiency/reflux. Will seek vascular assistance for potential procedure. Edema: Double Tubigrip and elevation of the lower extremities Infection: No signs of infection Pain: May take [id number] Tylenol Extra Strength for discomfort Host factors: Chronic venous insufficiency, chronic lower extremity edema, prolonged standing/activity, advanced age complicate healing. I answered all the patient's questions. To return to the wound healing center in 1 weeks or call sooner if the patient has any questions or concerns.
[2025-05-11 09:44] VITALS: BP 142/75; PULSE 66; RESP 16; TEMP 36.5
--- NOTE | 2025-05-11 10:42 | PN.PCM_ITS ---
History of Present Illness Date of Service: 05/11/25 Chief Complaint: Left medial ankle wound History of Wound: The patient is seen today as a courtesy visit for Dr. Merrill Burns, the patient's regular Wound Center provider. The patient's medical history is as recently documented below. Patient is a 79-year-old male who presents to the wound care center with recurring left lower extremity medial ankle wound. He has PMHx of recurring left lower extremity ulceration secondary to chronic venous insufficiency, history of DVT, obesity, JOSHUA, iron deficient anemia, delayed wound healing, and asthma. He states that he does have compression stockings and continues to wear them. He had been following in the wound care center for a deep ulceration to the medial aspect of the left lower extremity overlying the neurovascular bundle. He did go on to heal this ulceration as of 12/31/[address] Mckee for venogram. He has continued wearing compression stockings however states that while in the shower he did notice a scab of the left medial ankle and after showering applied antibiotic ointment and Band-Aid which later then the scab became soft and opened a small wound. He states that he did see his PCP who did obtain cultures and placed him on oral antibiotic. He was then referred to the wound care center for further follow-up. He denies any further trauma to the site. States that the specific site is recurrent with breakdown of skin. Denies N/V/F/chills. No further complaints. Subjective Subjective This is a 80-year-old male who returns to the wound care center for continued follow-up of a chronic venous stasis/insufficiency ulceration at the medial aspect of the left lower extremity. He underwent vascular procedure with Dr. Mckee on 04/13/25. Had recent follow-up with vascular on 04/26/2025. Continues utilizing Tubigrip compression since procedure however continues increased edema secondary to his previous procedure. He states that despite going down the size in his Tubigrip he remains swollen. Continues to try to elevating his legs higher than what he previously had been. Still continues standing for long periods of time performing woodworking in his garage. He denies constitutional symptoms. Denies further complaints. Objective Data Objective Data Vital Signs: Vital Signs Temp Pulse Resp BP O2 Del Method 97.7 F L 66 16 142/75 H Room Air 05/11/25 09:44 05/11/25 09:44 05/11/25 09:44 05/11/25 09:44 05/04/25 08:54 Oxygen Delivery Method Room Air Physical Exam Const alert, oriented x3 and no apparent distress General Appearance: cooperative HEENT normocephalic Eyes General Eye: normal appearance of both eyes Neck General: normal visual inspection Lymph Lymphatic: no lymphadenopathy noted and no lymphedema noted Resp normal respiratory effort Cardio regular rate and regular rhythm Extremity no calf tenderness Extremity Narrative: Left lower extremity: Vascular: DP and PT pulses weakly palpable. Capillary fill time to digits is 5 seconds. Normal temperature gradient. There is absent hair growth to digits noted. Dermatological: There is a full-thickness ulceration noted to the medial aspect of the lower extremity/ankle with mixed fibro granular layer. Negative Stemmer sign left foot. There is evidence of stasis dermatitis with hyperpigmentation/hemosiderin deposition/staining of skin left lower extremity. There are varicosities noted of the lower extremity with mild lower extremity edema. There is no erythema or rubor of the left lower extremity. Does have increased edema secondary to his vascular procedure. Musculoskeletal: Muscle strength 5 of 5 age-appropriate. There is decreased range of motion of the ankle joint dorsiflexion with knee extended without pain or crepitus. Decreased range of motion of the STJ, MTJ, and first MTPJ without pain or crepitus. There is pain to palpation of the left calf today with positive Gómez sign and Homans' sign. Skin no rashes or lesions noted General Skin Exam: venous stasis and dermatitis Neuro moves all extremities Debridement Note Debridement Note Wound debrided: Left medial ankle Laterality: Left Wound Grade/Stage: Cisneros stage I Type of Debridement: Excisional debridement Anesthesia Used: 5% Lidocaine Gel Depth: Down to and including healthy tissue and in the subcutaneous layer Percentage of wound debrided: 100 Instrument Used: 5mm curette Tissue Removed: Fibrous, devitalized subcutaneous, biofilm, slough Severity: Fat Layer Exposed Amount of bleeding with debridement: Mild Bleeding Controlled with: Compression and gauze Patient tolerated procedure: Patient tolerated procedure well Post-Debridement Measurements and Additional Note: Post-Debridement Measurements/Treatment LA NENA - Nurse 1 - General Ulcer Assessment Start: 04/20/25 08:43 Freq: Status: Active Protocol: ANAYA Activity Type Activity Date Activity User E-sign Co-sign Detail Recorded Client Recorded Date Recorded By Document 04/20/25 08:43 KW [id number] 04/20/25 08:52 KW Document 04/27/25 08:53 DL [id number] 04/27/25 08:59 DL Document 05/04/25 08:54 KW [id number] 05/04/25 08:59 KW Document 05/11/25 09:44 DL [id number] 05/11/25 09:50 DL 04/20/25 04/27/25 05/04/25 08:43 08:53 08:54 - Today's Visit Information Type of service Follow-up Visit Follow-up Visit Follow-up Visit (Physician/STAFF MECHANICAL ENGINEER (Physician/STAFF MECHANICAL ENGINEER (Physician/STAFF MECHANICAL ENGINEER ) ) ) Arrival Mode Ambulatory Ambulatory Ambulatory Transfer Assistance None Patient Identification Verified (Name & Yes Yes Yes ) Patient Requires Transmission-Based No Precautions Vital Signs Temperature (97.8 F-99.1 F) 96.4 F L 96.8 F L 96.8 F L Temperature Source Temporal Temporal Temporal Pulse Rate (60-100) 66 68 69 Pulse Location Monitor Monitor Monitor Respiratory Rate (12-18) 18 18 18 Respiratory rate source Observation Observation Observation Oxygen Delivery Method Room Air Room Air Blood Pressure (90/60-120/80) 134/63 H 139/66 H 137/83 H Blood Pressure Mean (mm Hg) 86 90 101 Source Monitor Monitor Monitor Position Semi-Fowlers Semi-Fowlers Blood Pressure Location Left Arm Right Arm History Since Last Visit- (Skip if this is Patient's initial visit) Have you changed medications since your No No No last visit? Any new allergies or adverse reactions No No No Had a fall/change in ADL's that may No No No increase risk of falls Signs or symptoms of abuse and/or No No No neglect since last visit Have you been in the hospital since your No No No last visit? Has dressing in place as prescribed Yes Yes Yes Has compression in place as prescribed Yes Yes Yes Has offloadiing in place as prescribed N/A Yes N/A Experienced any changes in pain level or No No No management Left Footwear Regular Shoe Regular Shoe Regular Shoe Right Footwear Regular Shoe Regular Shoe Regular Shoe Pain Scale: 0-10 Numeric Is Patient Pain Free? Yes Yes Yes 05/11/25 09:44 - Today's Visit Information Type of service Follow-up Visit (Physician/STAFF MECHANICAL ENGINEER ) Arrival Mode Ambulatory Transfer Assistance None Patient Identification Verified (Name & Yes ) Patient Requires Transmission-Based No Precautions Vital Signs Temperature (97.8 F-99.1 F) 97.7 F L Temperature Source Temporal Pulse Rate (60-100) 66 Pulse Location Monitor Respiratory Rate (12-18) 16 Respiratory rate source Observation Oxygen Delivery Method Blood Pressure (90/60-120/80) 142/75 H Blood Pressure Mean (mm Hg) 97 Source Monitor Position Blood Pressure Location History Since Last Visit- (Skip if this is Patient's initial visit) Have you changed medications since your No last visit? Any new allergies or adverse reactions No Had a fall/change in ADL's that may No increase risk of falls Signs or symptoms of abuse and/or No neglect since last visit Have you been in the hospital since your No last visit? Has dressing in place as prescribed Yes Has compression in place as prescribed Yes Has offloadiing in place as prescribed N/A Experienced any changes in pain level or No management Left Footwear Right Footwear Pain Scale: 0-10 Numeric Is Patient Pain Free? Yes WC - Nurse 1 - General Ulcer Measurement Start: 04/20/25 08:43 Freq: Status: Active Protocol: Activity Type Activity Date Activity User E-sign Co-sign Detail Recorded Client Recorded Date Recorded By Document 04/20/25 08:43 KW [id number] 04/20/25 08:52 KW Document 04/27/25 08:53 DL [id number] 04/27/25 08:59 DL Document 05/04/25 08:54 KW [id number] 05/04/25 08:59 KW Document 05/11/25 09:44 DL [id number] 05/11/25 09:50 DL 04/20/25 04/27/25 05/04/25 08:43 08:53 08:54 Wound Center Nurse 1 #1 L Med Ankle CLUSTER -Current Size (cm) - Length 0.1 0.1 1.1 -Current Size (cm) - Width 0.1 0.1 1.1 -Current Size (cm) - Depth 0 0.1 0.1 -Total Square Cm 0.01 0.01 1.21 -Date of Last Picture (Recall this 04/20/25 field) -Photo Taken Yes -Exudate Amt None Present Large -Exudate Type Serosanguineous Serosanguineous -Wound Margin Indistinct, Non Distinct, Indistinct, Non -Visible Outline -Visible Attached -Granulation Amt Medium (34-66%) Large (67-100%) Large (67-100%) -Granulation Quality Bertsch-[place] Pale,Bertsch-[place] Bertsch-[place] -Necrosis Amt Medium (34-66%) Small (1-33%) -Necrotic Tissue Type Adherent Slough Adherent Slough -Structure Exposed N/A -Texture (Megan-wound Skin Appearance) Assessed Localized Edema Assessed, ,Scarring Localized Edema -Moisture (Megan-wound Skin Appearance) Assessed No Abnormality Assessed,Dry/ Scaly -Color (Megan-wound Skin Appearance) Assessed, No Abnormality Assessed, Hemosiderin Erythema Staining -Temperature (Megan-wound Skin No Abnormality No Abnormality No Abnormality Appearance) (Pt Warm) (Pt Warm) (Pt Warm) -Tenderness on Palpation (Megan-wound No No No Skin Appearance) -Ulcer Cleansing Soap and Water Soap and Water Rinsed/ Irrigated with Saline -Foul Odor after Cleansing No No -Anesthetic Used 5% Lidocaine 5% Lidocaine 5% Lidocaine Gel Gel Gel Left Calf (cm) 37.5 39.3 39.5 Left Ankle (cm) 26.5 24.5 23 05/11/25 09:44 Wound Center Nurse 1 #1 L Med Ankle CLUSTER -Current Size (cm) - Length 4.6 -Current Size (cm) - Width 0.6 -Current Size (cm) - Depth 0.1 -Total Square Cm 2.76 -Date of Last Picture (Recall this field) -Photo Taken -Exudate Amt Small -Exudate Type Serosanguineous -Wound Margin Distinct, Outline Attached -Granulation Amt Large (67-100%) -Granulation Quality Bertsch-[place] -Necrosis Amt None Present (0 %) -Necrotic Tissue Type -Structure Exposed N/A -Texture (Megan-wound Skin Appearance) Scarring -Moisture (Megan-wound Skin Appearance) No Abnormality -Color (Megan-wound Skin Appearance) Hemosiderin Staining -Temperature (Megan-wound Skin No Abnormality Appearance) (Pt Warm) -Tenderness on Palpation (Megan-wound Skin Appearance) -Ulcer Cleansing Soap and Water -Foul Odor after Cleansing No -Anesthetic Used 5% Lidocaine Gel Left Calf (cm) 41 Left Ankle (cm) 23 WC - Nurse 2 - General Ulcer CM Notes Start: 04/20/25 08:43 Freq: Status: Active Protocol: Activity Type Activity Date Activity User E-sign Co-sign Detail Recorded Client Recorded Date Recorded By Document 04/20/25 09:11 BMF [id number] 04/20/25 09:15 BMF Edit Result 04/20/25 09:11 BMF (1) [id number] 04/20/25 09:28 BMF Document 04/27/25 09:07 BMF [id number] 04/27/25 09:12 BMF Document 05/04/25 09:09 BMF [id number] 05/04/25 09:13 BMF Document 05/11/25 10:07 BMF [id number] 05/11/25 10:12 BMF (1) #1 L Med Ankle CLUSTER - Post Debridement (cm) - Length 0.1 => 0.5 - Post Debridement (cm) - Width 0.1 => 0.5 - Total Square (Post) (cm) 0.01 => 0.25 - Area of Debridement (cm) - Length 0.1 => 0.5 - Area of Debridement (cm) - Width 0.1 => 0.5 - Total Square (Area) (cm) 0.01 => 0.25 04/20/25 04/27/25 05/04/25 09:11 09:07 09:09 Wound Center Nurse 2 #1 L Med Ankle CLUSTER -Time 09:11 09:07 09:09 -Correct Patient Yes Yes -Correct Side, Site, Position Yes Yes -Correct Procedure Yes Yes -Procedure Performed Yes Yes -Type of Procedure Debridement Debridement -Clinical Debridement Subcutaneous Subcutaneous -Tissue Removed Subcutaneous Subcutaneous -Post Debridement (cm) - Length 0.5 1.1 2 -Post Debridement (cm) - Width 0.5 1.1 1.6 -Post Debridement (cm) - Depth 0.1 0.1 0.1 -Total Square (Post) (cm) 0.25 1.21 3.2 -Area of Debridement (cm) - Length 0.5 1.1 2 -Area of Debridement (cm) - Width 0.5 1.1 1.6 -Total Square (Area) (cm) 0.25 1.21 3.2 -Tunneling No No No -Undermining/Tunneling No No No -Circular Undermining No No No -Wound/Ulcer Outcome Not Healed Not Healed Not Healed -Ulcer Cleansing Rinsed/ Rinsed/ Irrigated with Irrigated with Saline Saline -Foul Odor after Cleansing No No -Bioengineered Tissue No No -Bleeding Controlled with NA Pressure Pressure -Treatment Response Procedure Procedure Tolerated Well Tolerated Well -Debridement - Subq, 1st 20sq cm Yes Yes Pain Scale: 0-10 Numeric Is Patient Pain Free? Yes Yes Yes 05/11/25 10:07 Wound Center Nurse 2 #1 L Med Ankle CLUSTER -Time 10:07 -Correct Patient Yes -Correct Side, Site, Position Yes -Correct Procedure Yes -Procedure Performed Yes -Type of Procedure Debridement -Clinical Debridement Subcutaneous -Tissue Removed Subcutaneous -Post Debridement (cm) - Length 1.9 -Post Debridement (cm) - Width 1.9 -Post Debridement (cm) - Depth 0.1 -Total Square (Post) (cm) 3.61 -Area of Debridement (cm) - Length 1.9 -Area of Debridement (cm) - Width 1.9 -Total Square (Area) (cm) 3.61 -Tunneling No -Undermining/Tunneling No -Circular Undermining No -Wound/Ulcer Outcome Not Healed -Ulcer Cleansing -Foul Odor after Cleansing -Bioengineered Tissue -Bleeding Controlled with Pressure -Treatment Response Procedure Tolerated Well -Debridement - Subq, 1st 20sq cm Yes Pain Scale: 0-10 Numeric Is Patient Pain Free? Yes - Nurse 3 - General Ulcer D/C NN Start: 04/20/25 08:43 Freq: Status: Active Protocol: Activity Type Activity Date Activity User E-sign Co-sign Detail Recorded Client Recorded Date Recorded By Document 04/20/25 09:33 KW [id number] 04/20/25 09:34 KW Document 04/27/25 09:24 [facility] [id number] 04/27/25 09:25 [facility] Document 05/04/25 09:22 [facility] [id number] 05/04/25 09:22 [facility] Document 05/11/25 10:40 OK [id number] 05/11/25 10:41 OK 04/20/25 04/27/25 05/04/25 09:33 09:24 09:22 Wound Care Center Nurse 3 #1 L Med Ankle CLUSTER -Ulcer Cleansing Rinsed/ Rinsed/ Irrigated with Irrigated with Saline Saline -Foul Odor after Cleansing No No -Negative Pressure Wound Therapy -Primary Dressing Applied NonAdherent NonAdherent NonAdherent Contact Layer, Contact Layer, Contact Layer, Silicone Border Silicone Border Silicone Border Foam 4x4 Foam 4x4 Foam 4x4 -Other Dressing adaptic BETADINE -Primary Dressing Covered/Secured with -Promogran Liliana Matter -Silicone Border Foam 4x4 1 1 1 LLE -Multi-Layered Wrap Application -Tubular Bandage Double Layer Double Layer Double Layer -Size of Tubigrip Used Size E Size D Size D -Size D ($) 2 2 -Size E ($) 2 -Unna- Left (Qty applied) Treatment Response Procedure Tolerated Well Pain Scale: 0-10 Numeric Is Patient Pain Free? Yes Yes Yes WC - Visit Discharge Discharge Condition Stable Stable Stable Ambulatory Status Ambulatory Ambulatory Ambulatory Transportation Private Auto Private Auto Private Auto Medication Reconcilliation completed & No provided to patient/care provider Clinical Summary of Care Provided Yes Notes: 05/11/25 10:40 Wound Care Center Nurse 3 #1 L Med Ankle CLUSTER -Ulcer Cleansing Soap and Water -Foul Odor after Cleansing No -Negative Pressure Wound Therapy N/A -Primary Dressing Applied Promogran Liliana Matter -Other Dressing -Primary Dressing Covered/Secured with Dry Gauze, Secured with Tape -Promogran Liliana Matter 1 -Silicone Border Foam 4x4 LLE -Multi-Layered Wrap Application Unna Boot - Left -Tubular Bandage -Size of Tubigrip Used -Size D ($) -Size E ($) -Unna- Left (Qty applied) 1 Treatment Response Pain Scale: 0-10 Numeric Is Patient Pain Free? Yes WC - Visit Discharge Discharge Condition Stable Ambulatory Status Ambulatory Transportation Private Auto Medication Reconcilliation completed & No provided to patient/care provider Clinical Summary of Care Provided Yes Notes: UNNA BOOT PLACED. PT KNOWS TO PLACE BAG OVER WHEN GETTING WET. Assessment/Plan Assessment/Plan (1) Non-pressure chronic ulcer of left calf with fat layer exposed: CODE(S): L97.222 - Non-pressure chronic ulcer of left calf with fat layer exposed (2) Venous insufficiency (chronic) (peripheral): CODE(S): I87.2 - Venous insufficiency (chronic) (peripheral) (3) Bilateral lower extremity edema: CODE(S): R60.0 - Localized edema (4) 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: CODE(S): I83.003 - Varicose veins of unspecified lower extremity with ulcer of ankle; L97.302 - Non-pressure chronic ulcer of unspecified ankle with fat layer exposed QUALIFIERS: Varicose vein presence: with varicose veins Laterality: left Qualified Code(s): I83.023 - Varicose veins of left lower extremity with ulcer of ankle; L97.322 - Non-pressure chronic ulcer of left ankle with fat layer exposed PLAN: Plan Patient seen and evaluated Predebridement measurement 1.8 cm x 1.8 cm x 0.1 cm Ulceration site did undergo debridement as noted in the clinical panel above. Postdebridement measurement 1.9 cm x 1.9 cm x 0.1 cm. Liliana to wound site, Adaptic applied to site. Unna Boot compression applied to the left lower extremity. He is to continue to keep the dressing clean, dry, and intact and to utilize cast bag when showering to maintain compliance. There is some increase in size of ulceration versus previous visit due to continued increased lower extremity swelling and continued serous drainage post procedure. Stat Doppler for 02/16/2025 was negative for DVT. He did undergo repeat venous study 03/14/25 and underwent venous ablation on April 13. He was again instructed on continued elevation of the lower extremities to aid in edema control. Following healing of ulcerative site he will return to compression stockings however this time we will increase from 20 to 30 mmHg to 30 to 40 mmHg versus application of juxta lite compression. Juxta lite compression wrap was applied for 02/16/2025, awaiting approval. He is following with Dr. Mckee for procedure to aid in his venous insufficiency. Procedure performed 04/13/25. Recent visit with Dr. Mckee 04/26/2025. Discussed continued diet to aid in healing with adequate protein intake. Discussed signs and symptoms of infection. Discussed if he notices any increasing redness around the ulcerative site that is moved up the leg, purulent drainage from the ulcerative site, increasing foul odor from the ulcerative site, or if he develops fever greater than 101 degree accompanied by nausea, vomiting, chills of these are signs of a progressing infection and he should report to the ED for IV antibiotics and further evaluation. He is understanding of this today. The following work up and care recommendations were made: Dressing: Liliana to wound site, Adaptic to the left lower extremity with Unna boot compression. Will continue compression stocking to right lower extremity Wash: Do not get wet left lower extremity Tissue growth optimization: Liliana Offload: Unna boot compression Vascular: Does have history of positive venous insufficiency/reflux. Underwent procedure 04/13/2025 as above. Edema: Unna boot compression and elevation of the lower extremities Infection: No signs of infection Pain: May take [id number] Tylenol Extra Strength for discomfort Host factors: Chronic venous insufficiency, chronic lower extremity edema, prolonged standing/activity, advanced age complicate healing. I answered all the patient's questions. To return to the wound healing center in 1 week or call sooner if the patient has any questions or concerns.
--- NOTE | 2025-05-11 10:42 | PN.PCM_ITS ---
History of Present Illness Date of Service: 05/11/25 Chief Complaint: Left medial ankle wound History of Wound: The patient is seen today as a courtesy visit for Dr. Merrill Burns, the patient's regular Wound Center provider. The patient's medical history is as recently documented below. Patient is a 79-year-old male who presents to the wound care center with recurring left lower extremity medial ankle wound. He has PMHx of recurring left lower extremity ulceration secondary to chronic venous insufficiency, history of DVT, obesity, JOSHUA, iron deficient anemia, delayed wound healing, and asthma. He states that he does have compression stockings and continues to wear them. He had been following in the wound care center for a deep ulceration to the medial aspect of the left lower extremity overlying the neurovascular bundle. He did go on to heal this ulceration as of 12/31/[address] Mckee for venogram. He has continued wearing compression stockings however states that while in the shower he did notice a scab of the left medial ankle and after showering applied antibiotic ointment and Band-Aid which later then the scab became soft and opened a small wound. He states that he did see his PCP who did obtain cultures and placed him on oral antibiotic. He was then referred to the wound care center for further follow-up. He denies any further trauma to the site. States that the specific site is recurrent with breakdown of skin. Denies N/V/F/chills. No further complaints. Subjective Subjective This is a 80-year-old male who returns to the wound care center for continued follow-up of a chronic venous stasis/insufficiency ulceration at the medial aspect of the left lower extremity. He underwent vascular procedure with Dr. Mckee on 04/13/25. Had recent follow-up with vascular on 04/26/2025. Continues utilizing Tubigrip compression since procedure however continues increased edema secondary to his previous procedure. He states that despite going down the size in his Tubigrip he remains swollen. Continues to try to elevating his legs higher than what he previously had been. Still continues standing for long periods of time performing woodworking in his garage. He denies constitutional symptoms. Denies further complaints. Objective Data Objective Data Vital Signs: Vital Signs Temp Pulse Resp BP O2 Del Method 97.7 F L 66 16 142/75 H Room Air 05/11/25 09:44 05/11/25 09:44 05/11/25 09:44 05/11/25 09:44 05/04/25 08:54 Oxygen Delivery Method Room Air Physical Exam Const alert, oriented x3 and no apparent distress General Appearance: cooperative HEENT normocephalic Eyes General Eye: normal appearance of both eyes Neck General: normal visual inspection Lymph Lymphatic: no lymphadenopathy noted and no lymphedema noted Resp normal respiratory effort Cardio regular rate and regular rhythm Extremity no calf tenderness Extremity Narrative: Left lower extremity: Vascular: DP and PT pulses weakly palpable. Capillary fill time to digits is 5 seconds. Normal temperature gradient. There is absent hair growth to digits noted. Dermatological: There is a full-thickness ulceration noted to the medial aspect of the lower extremity/ankle with mixed fibro granular layer. Negative Stemmer sign left foot. There is evidence of stasis dermatitis with hyperpigmentation/hemosiderin deposition/staining of skin left lower extremity. There are varicosities noted of the lower extremity with mild lower extremity edema. There is no erythema or rubor of the left lower extremity. Does have increased edema secondary to his vascular procedure. Musculoskeletal: Muscle strength 5 of 5 age-appropriate. There is decreased range of motion of the ankle joint dorsiflexion with knee extended without pain or crepitus. Decreased range of motion of the STJ, MTJ, and first MTPJ without pain or crepitus. There is pain to palpation of the left calf today with positive Gómez sign and Homans' sign. Skin no rashes or lesions noted General Skin Exam: venous stasis and dermatitis Neuro moves all extremities Debridement Note Debridement Note Wound debrided: Left medial ankle Laterality: Left Wound Grade/Stage: Cisneros stage I Type of Debridement: Excisional debridement Anesthesia Used: 5% Lidocaine Gel Depth: Down to and including healthy tissue and in the subcutaneous layer Percentage of wound debrided: 100 Instrument Used: 5mm curette Tissue Removed: Fibrous, devitalized subcutaneous, biofilm, slough Severity: Fat Layer Exposed Amount of bleeding with debridement: Mild Bleeding Controlled with: Compression and gauze Patient tolerated procedure: Patient tolerated procedure well Post-Debridement Measurements and Additional Note: Post-Debridement Measurements/Treatment LA NENA - Nurse 1 - General Ulcer Assessment Start: 04/20/25 08:43 Freq: Status: Active Protocol: ANAYA Activity Type Activity Date Activity User E-sign Co-sign Detail Recorded Client Recorded Date Recorded By Document 04/20/25 08:43 KW [id number] 04/20/25 08:52 KW Document 04/27/25 08:53 DL [id number] 04/27/25 08:59 DL Document 05/04/25 08:54 KW [id number] 05/04/25 08:59 KW Document 05/11/25 09:44 DL [id number] 05/11/25 09:50 DL 04/20/25 04/27/25 05/04/25 08:43 08:53 08:54 - Today's Visit Information Type of service Follow-up Visit Follow-up Visit Follow-up Visit (Physician/TRIM SETTER (Physician/TRIM SETTER (Physician/TRIM SETTER ) ) ) Arrival Mode Ambulatory Ambulatory Ambulatory Transfer Assistance None Patient Identification Verified (Name & Yes Yes Yes ) Patient Requires Transmission-Based No Precautions Vital Signs Temperature (97.8 F-99.1 F) 96.4 F L 96.8 F L 96.8 F L Temperature Source Temporal Temporal Temporal Pulse Rate (60-100) 66 68 69 Pulse Location Monitor Monitor Monitor Respiratory Rate (12-18) 18 18 18 Respiratory rate source Observation Observation Observation Oxygen Delivery Method Room Air Room Air Blood Pressure (90/60-120/80) 134/63 H 139/66 H 137/83 H Blood Pressure Mean (mm Hg) 86 90 101 Source Monitor Monitor Monitor Position Semi-Fowlers Semi-Fowlers Blood Pressure Location Left Arm Right Arm History Since Last Visit- (Skip if this is Patient's initial visit) Have you changed medications since your No No No last visit? Any new allergies or adverse reactions No No No Had a fall/change in ADL's that may No No No increase risk of falls Signs or symptoms of abuse and/or No No No neglect since last visit Have you been in the hospital since your No No No last visit? Has dressing in place as prescribed Yes Yes Yes Has compression in place as prescribed Yes Yes Yes Has offloadiing in place as prescribed N/A Yes N/A Experienced any changes in pain level or No No No management Left Footwear Regular Shoe Regular Shoe Regular Shoe Right Footwear Regular Shoe Regular Shoe Regular Shoe Pain Scale: 0-10 Numeric Is Patient Pain Free? Yes Yes Yes 05/11/25 09:44 - Today's Visit Information Type of service Follow-up Visit (Physician/TRIM SETTER ) Arrival Mode Ambulatory Transfer Assistance None Patient Identification Verified (Name & Yes ) Patient Requires Transmission-Based No Precautions Vital Signs Temperature (97.8 F-99.1 F) 97.7 F L Temperature Source Temporal Pulse Rate (60-100) 66 Pulse Location Monitor Respiratory Rate (12-18) 16 Respiratory rate source Observation Oxygen Delivery Method Blood Pressure (90/60-120/80) 142/75 H Blood Pressure Mean (mm Hg) 97 Source Monitor Position Blood Pressure Location History Since Last Visit- (Skip if this is Patient's initial visit) Have you changed medications since your No last visit? Any new allergies or adverse reactions No Had a fall/change in ADL's that may No increase risk of falls Signs or symptoms of abuse and/or No neglect since last visit Have you been in the hospital since your No last visit? Has dressing in place as prescribed Yes Has compression in place as prescribed Yes Has offloadiing in place as prescribed N/A Experienced any changes in pain level or No management Left Footwear Right Footwear Pain Scale: 0-10 Numeric Is Patient Pain Free? Yes WC - Nurse 1 - General Ulcer Measurement Start: 04/20/25 08:43 Freq: Status: Active Protocol: Activity Type Activity Date Activity User E-sign Co-sign Detail Recorded Client Recorded Date Recorded By Document 04/20/25 08:43 KW [id number] 04/20/25 08:52 KW Document 04/27/25 08:53 DL [id number] 04/27/25 08:59 DL Document 05/04/25 08:54 KW [id number] 05/04/25 08:59 KW Document 05/11/25 09:44 DL [id number] 05/11/25 09:50 DL 04/20/25 04/27/25 05/04/25 08:43 08:53 08:54 Wound Center Nurse 1 #1 L Med Ankle CLUSTER -Current Size (cm) - Length 0.1 0.1 1.1 -Current Size (cm) - Width 0.1 0.1 1.1 -Current Size (cm) - Depth 0 0.1 0.1 -Total Square Cm 0.01 0.01 1.21 -Date of Last Picture (Recall this 04/20/25 field) -Photo Taken Yes -Exudate Amt None Present Large -Exudate Type Serosanguineous Serosanguineous -Wound Margin Indistinct, Non Distinct, Indistinct, Non -Visible Outline -Visible Attached -Granulation Amt Medium (34-66%) Large (67-100%) Large (67-100%) -Granulation Quality Foot Of Ten Pale,Foot Of Ten Foot Of Ten -Necrosis Amt Medium (34-66%) Small (1-33%) -Necrotic Tissue Type Adherent Slough Adherent Slough -Structure Exposed N/A -Texture (Megan-wound Skin Appearance) Assessed Localized Edema Assessed, ,Scarring Localized Edema -Moisture (Megan-wound Skin Appearance) Assessed No Abnormality Assessed,Dry/ Scaly -Color (Megan-wound Skin Appearance) Assessed, No Abnormality Assessed, Hemosiderin Erythema Staining -Temperature (Megan-wound Skin No Abnormality No Abnormality No Abnormality Appearance) (Pt Warm) (Pt Warm) (Pt Warm) -Tenderness on Palpation (Megan-wound No No No Skin Appearance) -Ulcer Cleansing Soap and Water Soap and Water Rinsed/ Irrigated with Saline -Foul Odor after Cleansing No No -Anesthetic Used 5% Lidocaine 5% Lidocaine 5% Lidocaine Gel Gel Gel Left Calf (cm) 37.5 39.3 39.5 Left Ankle (cm) 26.5 24.5 23 05/11/25 09:44 Wound Center Nurse 1 #1 L Med Ankle CLUSTER -Current Size (cm) - Length 4.6 -Current Size (cm) - Width 0.6 -Current Size (cm) - Depth 0.1 -Total Square Cm 2.76 -Date of Last Picture (Recall this field) -Photo Taken -Exudate Amt Small -Exudate Type Serosanguineous -Wound Margin Distinct, Outline Attached -Granulation Amt Large (67-100%) -Granulation Quality Foot Of Ten -Necrosis Amt None Present (0 %) -Necrotic Tissue Type -Structure Exposed N/A -Texture (Megan-wound Skin Appearance) Scarring -Moisture (Megan-wound Skin Appearance) No Abnormality -Color (Megan-wound Skin Appearance) Hemosiderin Staining -Temperature (Megan-wound Skin No Abnormality Appearance) (Pt Warm) -Tenderness on Palpation (Megan-wound Skin Appearance) -Ulcer Cleansing Soap and Water -Foul Odor after Cleansing No -Anesthetic Used 5% Lidocaine Gel Left Calf (cm) 41 Left Ankle (cm) 23 WC - Nurse 2 - General Ulcer CM Notes Start: 04/20/25 08:43 Freq: Status: Active Protocol: Activity Type Activity Date Activity User E-sign Co-sign Detail Recorded Client Recorded Date Recorded By Document 04/20/25 09:11 BMF [id number] 04/20/25 09:15 BMF Edit Result 04/20/25 09:11 BMF (1) [id number] 04/20/25 09:28 BMF Document 04/27/25 09:07 BMF [id number] 04/27/25 09:12 BMF Document 05/04/25 09:09 BMF [id number] 05/04/25 09:13 BMF Document 05/11/25 10:07 BMF [id number] 05/11/25 10:12 BMF (1) #1 L Med Ankle CLUSTER - Post Debridement (cm) - Length 0.1 => 0.5 - Post Debridement (cm) - Width 0.1 => 0.5 - Total Square (Post) (cm) 0.01 => 0.25 - Area of Debridement (cm) - Length 0.1 => 0.5 - Area of Debridement (cm) - Width 0.1 => 0.5 - Total Square (Area) (cm) 0.01 => 0.25 04/20/25 04/27/25 05/04/25 09:11 09:07 09:09 Wound Center Nurse 2 #1 L Med Ankle CLUSTER -Time 09:11 09:07 09:09 -Correct Patient Yes Yes -Correct Side, Site, Position Yes Yes -Correct Procedure Yes Yes -Procedure Performed Yes Yes -Type of Procedure Debridement Debridement -Clinical Debridement Subcutaneous Subcutaneous -Tissue Removed Subcutaneous Subcutaneous -Post Debridement (cm) - Length 0.5 1.1 2 -Post Debridement (cm) - Width 0.5 1.1 1.6 -Post Debridement (cm) - Depth 0.1 0.1 0.1 -Total Square (Post) (cm) 0.25 1.21 3.2 -Area of Debridement (cm) - Length 0.5 1.1 2 -Area of Debridement (cm) - Width 0.5 1.1 1.6 -Total Square (Area) (cm) 0.25 1.21 3.2 -Tunneling No No No -Undermining/Tunneling No No No -Circular Undermining No No No -Wound/Ulcer Outcome Not Healed Not Healed Not Healed -Ulcer Cleansing Rinsed/ Rinsed/ Irrigated with Irrigated with Saline Saline -Foul Odor after Cleansing No No -Bioengineered Tissue No No -Bleeding Controlled with NA Pressure Pressure -Treatment Response Procedure Procedure Tolerated Well Tolerated Well -Debridement - Subq, 1st 20sq cm Yes Yes Pain Scale: 0-10 Numeric Is Patient Pain Free? Yes Yes Yes 05/11/25 10:07 Wound Center Nurse 2 #1 L Med Ankle CLUSTER -Time 10:07 -Correct Patient Yes -Correct Side, Site, Position Yes -Correct Procedure Yes -Procedure Performed Yes -Type of Procedure Debridement -Clinical Debridement Subcutaneous -Tissue Removed Subcutaneous -Post Debridement (cm) - Length 1.9 -Post Debridement (cm) - Width 1.9 -Post Debridement (cm) - Depth 0.1 -Total Square (Post) (cm) 3.61 -Area of Debridement (cm) - Length 1.9 -Area of Debridement (cm) - Width 1.9 -Total Square (Area) (cm) 3.61 -Tunneling No -Undermining/Tunneling No -Circular Undermining No -Wound/Ulcer Outcome Not Healed -Ulcer Cleansing -Foul Odor after Cleansing -Bioengineered Tissue -Bleeding Controlled with Pressure -Treatment Response Procedure Tolerated Well -Debridement - Subq, 1st 20sq cm Yes Pain Scale: 0-10 Numeric Is Patient Pain Free? Yes - Nurse 3 - General Ulcer D/C NN Start: 04/20/25 08:43 Freq: Status: Active Protocol: Activity Type Activity Date Activity User E-sign Co-sign Detail Recorded Client Recorded Date Recorded By Document 04/20/25 09:33 KW [id number] 04/20/25 09:34 KW Document 04/27/25 09:24 [facility] [id number] 04/27/25 09:25 [facility] Document 05/04/25 09:22 [facility] [id number] 05/04/25 09:22 [facility] Document 05/11/25 10:40 [place] [id number] 05/11/25 10:41 [place] 04/20/25 04/27/25 05/04/25 09:33 09:24 09:22 Wound Care Center Nurse 3 #1 L Med Ankle CLUSTER -Ulcer Cleansing Rinsed/ Rinsed/ Irrigated with Irrigated with Saline Saline -Foul Odor after Cleansing No No -Negative Pressure Wound Therapy -Primary Dressing Applied NonAdherent NonAdherent NonAdherent Contact Layer, Contact Layer, Contact Layer, Silicone Border Silicone Border Silicone Border Foam 4x4 Foam 4x4 Foam 4x4 -Other Dressing adaptic BETADINE -Primary Dressing Covered/Secured with -Promogran Liliana Matter -Silicone Border Foam 4x4 1 1 1 LLE -Multi-Layered Wrap Application -Tubular Bandage Double Layer Double Layer Double Layer -Size of Tubigrip Used Size E Size D Size D -Size D ($) 2 2 -Size E ($) 2 -Unna- Left (Qty applied) Treatment Response Procedure Tolerated Well Pain Scale: 0-10 Numeric Is Patient Pain Free? Yes Yes Yes WC - Visit Discharge Discharge Condition Stable Stable Stable Ambulatory Status Ambulatory Ambulatory Ambulatory Transportation Private Auto Private Auto Private Auto Medication Reconcilliation completed & No provided to patient/care provider Clinical Summary of Care Provided Yes Notes: 05/11/25 10:40 Wound Care Center Nurse 3 #1 L Med Ankle CLUSTER -Ulcer Cleansing Soap and Water -Foul Odor after Cleansing No -Negative Pressure Wound Therapy N/A -Primary Dressing Applied Promogran Liliana Matter -Other Dressing -Primary Dressing Covered/Secured with Dry Gauze, Secured with Tape -Promogran Liliana Matter 1 -Silicone Border Foam 4x4 LLE -Multi-Layered Wrap Application Unna Boot - Left -Tubular Bandage -Size of Tubigrip Used -Size D ($) -Size E ($) -Unna- Left (Qty applied) 1 Treatment Response Pain Scale: 0-10 Numeric Is Patient Pain Free? Yes WC - Visit Discharge Discharge Condition Stable Ambulatory Status Ambulatory Transportation Private Auto Medication Reconcilliation completed & No provided to patient/care provider Clinical Summary of Care Provided Yes Notes: UNNA BOOT PLACED. PT KNOWS TO PLACE BAG OVER WHEN GETTING WET. Assessment/Plan Assessment/Plan (1) Non-pressure chronic ulcer of left calf with fat layer exposed: CODE(S): L97.222 - Non-pressure chronic ulcer of left calf with fat layer exposed (2) Venous insufficiency (chronic) (peripheral): CODE(S): I87.2 - Venous insufficiency (chronic) (peripheral) (3) Bilateral lower extremity edema: CODE(S): R60.0 - Localized edema (4) 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: CODE(S): I83.003 - Varicose veins of unspecified lower extremity with ulcer of ankle; L97.302 - Non-pressure chronic ulcer of unspecified ankle with fat layer exposed QUALIFIERS: Varicose vein presence: with varicose veins Laterality: left Qualified Code(s): I83.023 - Varicose veins of left lower extremity with ulcer of ankle; L97.322 - Non-pressure chronic ulcer of left ankle with fat layer exposed PLAN: Plan Patient seen and evaluated Predebridement measurement 1.8 cm x 1.8 cm x 0.1 cm Ulceration site did undergo debridement as noted in the clinical panel above. Postdebridement measurement 1.9 cm x 1.9 cm x 0.1 cm. Liliana to wound site, Adaptic applied to site. Unna Boot compression applied to the left lower extremity. He is to continue to keep the dressing clean, dry, and intact and to utilize cast bag when showering to maintain compliance. There is some increase in size of ulceration versus previous visit due to continued increased lower extremity swelling and continued serous drainage post procedure. Stat Doppler for 02/16/2025 was negative for DVT. He did undergo repeat venous study 03/14/25 and underwent venous ablation on April 13. He was again instructed on continued elevation of the lower extremities to aid in edema control. Following healing of ulcerative site he will return to compression stockings however this time we will increase from 20 to 30 mmHg to 30 to 40 mmHg versus application of juxta lite compression. Juxta lite compression wrap was applied for 02/16/2025, awaiting approval. He is following with Dr. Mckee for procedure to aid in his venous insufficiency. Procedure performed 04/13/25. Recent visit with Dr. Mckee 04/26/2025. Discussed continued diet to aid in healing with adequate protein intake. Discussed signs and symptoms of infection. Discussed if he notices any increasing redness around the ulcerative site that is moved up the leg, purulent drainage from the ulcerative site, increasing foul odor from the ulcerative site, or if he develops fever greater than 101 degree accompanied by nausea, vomiting, chills of these are signs of a progressing infection and he should report to the ED for IV antibiotics and further evaluation. He is understanding of this today. The following work up and care recommendations were made: Dressing: Liliana to wound site, Adaptic to the left lower extremity with Unna boot compression. Will continue compression stocking to right lower extremity Wash: Do not get wet left lower extremity Tissue growth optimization: Liliana Offload: Unna boot compression Vascular: Does have history of positive venous insufficiency/reflux. Underwent procedure 04/13/2025 as above. Edema: Unna boot compression and elevation of the lower extremities Infection: No signs of infection Pain: May take [id number] Tylenol Extra Strength for discomfort Host factors: Chronic venous insufficiency, chronic lower extremity edema, prolonged standing/activity, advanced age complicate healing. I answered all the patient's questions. To return to the wound healing center in 1 week or call sooner if the patient has any questions or concerns.
[2025-05-15 15:13] VITALS: BP 119/68; PULSE 79; RESP 14; TEMP 36.6
[2025-05-18 09:10] VITALS: BP 130/67; PULSE 67; RESP 18; TEMP 35.9
--- NOTE | 2025-05-18 10:48 | PN.PCM_ITS ---
History of Present Illness Date of Service: 05/18/25 Chief Complaint: Left medial ankle wound History of Wound: The patient is seen today as a courtesy visit for Dr. Merrill Burns, the patient's regular Wound Center provider. The patient's medical history is as recently documented below. Patient is a 79-year-old male who presents to the wound care center with recurring left lower extremity medial ankle wound. He has PMHx of recurring left lower extremity ulceration secondary to chronic venous insufficiency, history of DVT, obesity, JOSHUA, iron deficient anemia, delayed wound healing, and asthma. He states that he does have compression stockings and continues to wear them. He had been following in the wound care center for a deep ulceration to the medial aspect of the left lower extremity overlying the neurovascular bundle. He did go on to heal this ulceration as of 12/31/[address] Mckee for venogram. He has continued wearing compression stockings however states that while in the shower he did notice a scab of the left medial ankle and after showering applied antibiotic ointment and Band-Aid which later then the scab became soft and opened a small wound. He states that he did see his PCP who did obtain cultures and placed him on oral antibiotic. He was then referred to the wound care center for further follow-up. He denies any further trauma to the site. States that the specific site is recurrent with breakdown of skin. Denies N/V/F/chills. No further complaints. Subjective Subjective This is a 80-year-old male who returns to the wound care center for continued follow-up of a chronic venous stasis/insufficiency ulceration at the medial aspect of the left lower extremity. He underwent vascular procedure with Dr. Mckee on 04/13/25. Had recent follow-up with vascular on 04/26/2025. Was placed in unna boot compression last week in addition to being placed on lasix for one week. Edema secondary to his previous procedure has improved but drainage still remains due to patient long duration on his feet. States he does not sit often. Continues to try to elevating his legs higher than what he previously had been when he does sit. Still continues standing for long periods of time performing woodworking in his garage. He denies constitutional symptoms. Denies further complaints. Objective Data Objective Data Vital Signs: Vital Signs Temp Pulse Resp BP O2 Del Method 96.7 F L 67 18 130/67 H Room Air 05/18/25 09:10 05/18/25 09:10 05/18/25 09:10 05/18/25 09:10 05/18/25 09:10 Oxygen Delivery Method Room Air Physical Exam Const alert, oriented x3 and no apparent distress General Appearance: cooperative HEENT normocephalic Eyes General Eye: normal appearance of both eyes Neck General: normal visual inspection Lymph Lymphatic: no lymphadenopathy noted and no lymphedema noted Resp normal respiratory effort Cardio regular rate and regular rhythm Extremity no calf tenderness Extremity Narrative: Left lower extremity: Vascular: DP and PT pulses weakly palpable. Capillary fill time to digits is 5 seconds. Normal temperature gradient. There is absent hair growth to digits noted. Dermatological: There is a full-thickness ulceration noted to the medial aspect of the lower extremity/ankle with mixed fibro granular layer. Negative Stemmer sign left foot. There is evidence of stasis dermatitis with hyperpigmentation/hemosiderin deposition/staining of skin left lower extremity. There are varicosities noted of the lower extremity with mild lower extremity edema. There is no erythema or rubor of the left lower extremity. Does have increased edema secondary to his vascular procedure. Musculoskeletal: Muscle strength 5 of 5 age-appropriate. There is decreased range of motion of the ankle joint dorsiflexion with knee extended without pain or crepitus. Decreased range of motion of the STJ, MTJ, and first MTPJ without pain or crepitus. There is pain to palpation of the left calf today with positive Gómez sign and Homans' sign. Skin no rashes or lesions noted General Skin Exam: venous stasis and dermatitis Neuro moves all extremities Debridement Note Debridement Note Wound debrided: Left medial ankle Laterality: Left Wound Grade/Stage: Cisneros stage I Type of Debridement: Excisional debridement Anesthesia Used: 5% Lidocaine Gel Depth: Down to and including healthy tissue and in the subcutaneous layer Percentage of wound debrided: 100 Instrument Used: 5mm curette Tissue Removed: Fibrous, devitalized subcutaneous, biofilm, slough Severity: Fat Layer Exposed Amount of bleeding with debridement: Mild Bleeding Controlled with: Compression and gauze Patient tolerated procedure: Patient tolerated procedure well Post-Debridement Measurements and Additional Note: Post-Debridement Measurements/Treatment - Nurse 1 - General Ulcer Assessment Start: 04/20/25 08:43 Freq: Status: Active Protocol: LA NENA.LOWEXT Activity Type Activity Date Activity User E-sign Co-sign Detail Recorded Client Recorded Date Recorded By Document 04/20/25 08:43 KW [id number] 04/20/25 08:52 KW Document 04/27/25 08:53 DL [id number] 04/27/25 08:59 DL Document 05/04/25 08:54 KW [id number] 05/04/25 08:59 KW Document 05/11/25 09:44 DL [id number] 05/11/25 09:50 DL Document 05/15/25 15:13 ML [id number] 05/15/25 15:15 ML Document 05/18/25 09:10 KW [id number] 05/18/25 09:11 KW 04/20/25 04/27/25 05/04/25 08:43 08:53 08:54 WC - Today's Visit Information Type of service Follow-up Visit Follow-up Visit Follow-up Visit (Physician/CANCER REGISTRY MANAGER (Physician/CANCER REGISTRY MANAGER (Physician/CANCER REGISTRY MANAGER ) ) ) Arrival Mode Ambulatory Ambulatory Ambulatory Transfer Assistance None Patient Identification Verified (Name & Yes Yes Yes ) Patient Requires Transmission-Based No Precautions Vital Signs Temperature (97.8 F-99.1 F) 96.4 F L 96.8 F L 96.8 F L Temperature Source Temporal Temporal Temporal Pulse Rate (60-100) 66 68 69 Pulse Location Monitor Monitor Monitor Respiratory Rate (12-18) 18 18 18 Respiratory rate source Observation Observation Observation Oxygen Delivery Method Room Air Room Air Blood Pressure (90/60-120/80) 134/63 H 139/66 H 137/83 H Blood Pressure Mean (mm Hg) 86 90 101 Source Monitor Monitor Monitor Position Semi-Fowlers Semi-Fowlers Blood Pressure Location Left Arm Right Arm History Since Last Visit- (Skip if this is Patient's initial visit) Have you changed medications since your No No No last visit? Any new allergies or adverse reactions No No No Had a fall/change in ADL's that may No No No increase risk of falls Signs or symptoms of abuse and/or No No No neglect since last visit Have you been in the hospital since your No No No last visit? Has dressing in place as prescribed Yes Yes Yes Has compression in place as prescribed Yes Yes Yes Has offloadiing in place as prescribed N/A Yes N/A Experienced any changes in pain level or No No No management Left Footwear Regular Shoe Regular Shoe Regular Shoe Right Footwear Regular Shoe Regular Shoe Regular Shoe Pain Scale: 0-10 Numeric Is Patient Pain Free? Yes Yes Yes 05/11/25 05/15/25 05/18/25 09:44 15:13 09:10 - Today's Visit Information Type of service Follow-up Visit Nurse-only Follow-up Visit (Physician/CANCER REGISTRY MANAGER Visit (Physician/CANCER REGISTRY MANAGER ) ) Arrival Mode Ambulatory Ambulatory Ambulatory Transfer Assistance None None Patient Identification Verified (Name & Yes Yes Yes ) Patient Requires Transmission-Based No No Precautions Vital Signs Temperature (97.8 F-99.1 F) 97.7 F L 98 F 96.7 F L Temperature Source Temporal Temporal Temporal Pulse Rate (60-100) 66 79 67 Pulse Location Monitor Monitor Monitor Respiratory Rate (12-18) 16 14 18 Respiratory rate source Observation Monitor Observation Oxygen Delivery Method Room Air Blood Pressure (90/60-120/80) 142/75 H 119/68 130/67 H Blood Pressure Mean (mm Hg) 97 85 88 Source Monitor Monitor Monitor Position Sitting Semi-Fowlers Blood Pressure Location Right Arm Left Arm History Since Last Visit- (Skip if this is Patient's initial visit) Have you changed medications since your No No last visit? Any new allergies or adverse reactions No No Had a fall/change in ADL's that may No No increase risk of falls Signs or symptoms of abuse and/or No No neglect since last visit Have you been in the hospital since your No No last visit? Has dressing in place as prescribed Yes Yes Has compression in place as prescribed Yes Yes Has offloadiing in place as prescribed N/A N/A Experienced any changes in pain level or No No management Left Footwear Right Footwear Pain Scale: 0-10 Numeric Is Patient Pain Free? Yes Yes Yes [facility] Nurse 1 - General Ulcer Measurement Start: 04/20/25 08:43 Freq: Status: Active Protocol: Activity Type Activity Date Activity User E-sign Co-sign Detail Recorded Client Recorded Date Recorded By Document 04/20/25 08:43 KW [id number] 04/20/25 08:52 KW Document 04/27/25 08:53 DL [id number] 04/27/25 08:59 DL Document 05/04/25 08:54 KW [id number] 05/04/25 08:59 KW Document 05/11/25 09:44 DL [id number] 05/11/25 09:50 DL Document 05/15/25 15:17 ML [id number] 05/15/25 15:17 ML Document 05/18/25 09:10 KW [id number] 05/18/25 09:11 KW 04/20/25 04/27/25 05/04/25 08:43 08:53 08:54 Wound Center Nurse 1 #1 L Med Ankle CLUSTER -Current Size (cm) - Length 0.1 0.1 1.1 -Current Size (cm) - Width 0.1 0.1 1.1 -Current Size (cm) - Depth 0 0.1 0.1 -Total Square Cm 0.01 0.01 1.21 -Date of Last Picture (Recall this 04/20/25 field) -Photo Taken Yes -Exudate Amt None Present Large -Exudate Type Serosanguineous Serosanguineous -Wound Margin Indistinct, Non Distinct, Indistinct, Non -Visible Outline -Visible Attached -Granulation Amt Medium (34-66%) Large (67-100%) Large (67-100%) -Granulation Quality [place] Pale,[place] -Necrosis Amt Medium (34-66%) Small (1-33%) -Necrotic Tissue Type Adherent Slough Adherent Slough -Structure Exposed N/A -Texture (Megan-wound Skin Appearance) Assessed Localized Edema Assessed, ,Scarring Localized Edema -Moisture (Megan-wound Skin Appearance) Assessed No Abnormality Assessed,Dry/ Scaly -Color (Megan-wound Skin Appearance) Assessed, No Abnormality Assessed, Hemosiderin Erythema Staining -Temperature (Megan-wound Skin No Abnormality No Abnormality No Abnormality Appearance) (Pt Warm) (Pt Warm) (Pt Warm) -Tenderness on Palpation (Megan-wound No No No Skin Appearance) -Ulcer Cleansing Soap and Water Soap and Water Rinsed/ Irrigated with Saline -Foul Odor after Cleansing No No -Anesthetic Used 5% Lidocaine 5% Lidocaine 5% Lidocaine Gel Gel Gel Left Calf (cm) 37.5 39.3 39.5 Left Ankle (cm) 26.5 24.5 23 05/11/25 05/15/25 05/18/25 09:44 15:17 09:10 Wound Center Nurse 1 #1 L Med Ankle CLUSTER -Current Size (cm) - Length 4.6 4.2 -Current Size (cm) - Width 0.6 1.3 -Current Size (cm) - Depth 0.1 0.1 -Total Square Cm 2.76 5.46 -Date of Last Picture (Recall this 05/18/25 field) -Photo Taken -Exudate Amt Small Medium -Exudate Type Serosanguineous Serosanguineous -Wound Margin Distinct, Distinct, Outline Outline Attached Attached -Granulation Amt Large (67-100%) Large (67-100%) -Granulation Quality [place] Red -Necrosis Amt None Present (0 Large (67-100%) %) -Necrotic Tissue Type Adherent Slough -Structure Exposed N/A -Texture (Megan-wound Skin Appearance) Scarring Assessed -Moisture (Megan-wound Skin Appearance) No Abnormality Assessed -Color (Megan-wound Skin Appearance) Hemosiderin Assessed, Staining Erythema -Temperature (Megan-wound Skin No Abnormality No Abnormality Appearance) (Pt Warm) (Pt Warm) -Tenderness on Palpation (Megan-wound No Skin Appearance) -Ulcer Cleansing Soap and Water Soap and Water -Foul Odor after Cleansing No -Anesthetic Used 5% Lidocaine 5% Lidocaine Gel Gel Left Calf (cm) 41 35.5 41.7 Left Ankle (cm) 23 23 23.3 WC - Nurse 2 - General Ulcer CM Notes Start: 04/20/25 08:43 Freq: Status: Active Protocol: Activity Type Activity Date Activity User E-sign Co-sign Detail Recorded Client Recorded Date Recorded By Document 04/20/25 09:11 BMF [id number] 04/20/25 09:15 BMF Edit Result 04/20/25 09:11 BMF (1) 10..25.7 04/20/25 09:28 BMF Document 04/27/25 09:07 BMF [id number] 04/27/25 09:12 BMF Document 05/04/25 09:09 BMF [id number] 05/04/25 09:13 BMF Document 05/11/25 10:07 BMF [id number] 05/11/25 10:12 BMF Document 05/18/25 09:58 BMF [id number] 05/18/25 10:07 BMF (1) #1 L Med Ankle CLUSTER - Post Debridement (cm) - Length 0.1 => 0.5 - Post Debridement (cm) - Width 0.1 => 0.5 - Total Square (Post) (cm) 0.01 => 0.25 - Area of Debridement (cm) - Length 0.1 => 0.5 - Area of Debridement (cm) - Width 0.1 => 0.5 - Total Square (Area) (cm) 0.01 => 0.25 04/20/25 04/27/25 05/04/25 09:11 09:07 09:09 Wound Center Nurse 2 #1 L Med Ankle CLUSTER -Time : 09:07 09:09 -Correct Patient Yes Yes -Correct Side, Site, Position Yes Yes -Correct Procedure Yes Yes -Procedure Performed Yes Yes -Type of Procedure Debridement Debridement -Clinical Debridement Subcutaneous Subcutaneous -Tissue Removed Subcutaneous Subcutaneous -Post Debridement (cm) - Length 0.5 1.1 2 -Post Debridement (cm) - Width 0.5 1.1 1.6 -Post Debridement (cm) - Depth 0.1 0.1 0.1 -Total Square (Post) (cm) 0.25 1.21 3.2 -Area of Debridement (cm) - Length 0.5 1.1 2 -Area of Debridement (cm) - Width 0.5 1.1 1.6 -Total Square (Area) (cm) 0.25 1.21 3.2 -Tunneling No No No -Undermining/Tunneling No No No -Circular Undermining No No No -Wound/Ulcer Outcome Not Healed Not Healed Not Healed -Ulcer Cleansing Rinsed/ Rinsed/ Irrigated with Irrigated with Saline Saline -Foul Odor after Cleansing No No -Bioengineered Tissue No No -Bleeding Controlled with NA Pressure Pressure -Treatment Response Procedure Procedure Tolerated Well Tolerated Well -Debridement - Subq, 1st 20sq cm Yes Yes Pain Scale: 0-10 Numeric Is Patient Pain Free? Yes Yes Yes 05/11/25 05/18/25 10:07 09:58 Wound Center Nurse 2 #1 [facility] Ankle CLUSTER -Time 10:07 09:58 -Correct Patient Yes Yes -Correct Side, Site, Position Yes Yes -Correct Procedure Yes Yes -Procedure Performed Yes Yes -Type of Procedure Debridement Debridement -Clinical Debridement Subcutaneous Subcutaneous -Tissue Removed Subcutaneous Subcutaneous -Post Debridement (cm) - Length 1.9 3.2 -Post Debridement (cm) - Width 1.9 1 -Post Debridement (cm) - Depth 0.1 0.1 -Total Square (Post) (cm) 3.61 3.2 -Area of Debridement (cm) - Length 1.9 3.2 -Area of Debridement (cm) - Width 1.9 1 -Total Square (Area) (cm) 3.61 3.2 -Tunneling No No -Undermining/Tunneling No No -Circular Undermining No No -Wound/Ulcer Outcome Not Healed Not Healed -Ulcer Cleansing Rinsed/ Irrigated with Saline -Foul Odor after Cleansing No -Bioengineered Tissue No -Bleeding Controlled with Pressure Pressure -Treatment Response Procedure Procedure Tolerated Well Tolerated Well -Debridement - Subq, 1st 20sq cm Yes Yes Pain Scale: 0-10 Numeric Is Patient Pain Free? Yes Yes - Nurse 3 - General Ulcer D/C NN Start: 04/20/25 08:43 Freq: Status: Active Protocol: Activity Type Activity Date Activity User E-sign Co-sign Detail Recorded Client Recorded Date Recorded By Document 04/20/25 09:33 KW [id number] 04/20/25 09:34 KW Document 04/27/25 09:24 [facility] [id number] 04/27/25 09:25 [facility] Document 05/04/25 09:22 [facility] [id number] 05/04/25 09:22 [facility] Document 05/11/25 10:40 MT [id number] 05/11/25 10:41 MT Document 05/15/25 15:13 ML [id number] 05/15/25 15:15 ML Document 05/18/25 10:11 KW [id number] 05/18/25 10:11 04/20/25 04/27/25 05/04/25 09:33 09:24 09:22 Wound Care Center Nurse 3 #1 L Med Ankle CLUSTER -Ulcer Cleansing Rinsed/ Rinsed/ Irrigated with Irrigated with Saline Saline -Foul Odor after Cleansing No No -Negative Pressure Wound Therapy -Primary Dressing Applied NonAdherent NonAdherent NonAdherent Contact Layer, Contact Layer, Contact Layer, Silicone Border Silicone Border Silicone Border Foam 4x4 Foam 4x4 Foam 4x4 -Other Dressing adaptic BETADINE -Primary Dressing Covered/Secured with -Aquacel Extra -Promogran Ricci Matter -Silicone Border Foam 4x4 1 1 1 LLE -Multi-Layered Wrap Application -Tubular Bandage Double Layer Double Layer Double Layer -Size of Tubigrip Used Size E Size D Size D -Size D ($) 2 2 -Size E ($) 2 -Unna- Left (Qty applied) Treatment Response Procedure Tolerated Well Pain Scale: 0-10 Numeric Is Patient Pain Free? Yes Yes Yes WC - Visit Discharge Discharge Condition Stable Stable Stable Ambulatory Status Ambulatory Ambulatory Ambulatory Transportation Private Auto Private Auto Private Auto Medication Reconcilliation completed & No provided to patient/care provider Clinical Summary of Care Provided Yes Notes: 05/11/25 05/15/25 05/18/25 10:40 15:13 10:11 Wound Care Center Nurse 3 #1 L Med Ankle CLUSTER -Ulcer Cleansing Soap and Water Soap and Water -Foul Odor after Cleansing No -Negative Pressure Wound Therapy N/A -Primary Dressing Applied Promogran Promogran Aquacel Extra, Ricci Matter Ricci Matter NonAdherent Contact Layer -Other Dressing unna pt own ricci -Primary Dressing Covered/Secured with Dry Gauze, Secured with Tape -Aquacel Extra 1 -Promogran Ricci Matter 1 1 -Silicone Border Foam 4x4 LLE -Multi-Layered Wrap Application Unna Boot - Unna Boot - Unna Boot - Left Left Left -Tubular Bandage -Size of Tubigrip Used -Size D ($) -Size E ($) -Unna- Left (Qty applied) 1 1 1 Treatment Response Pain Scale: 0-10 Numeric Is Patient Pain Free? Yes Yes Yes WC - Visit Discharge Discharge Condition Stable Stable Ambulatory Status Ambulatory Ambulatory Transportation Private Auto Private Auto Medication Reconcilliation completed & No No provided to patient/care provider Clinical Summary of Care Provided Yes Yes Notes: UNNA BOOT PLACED. PT KNOWS TO PLACE BAG OVER WHEN GETTING WET. Assessment/Plan Assessment/Plan (1) Non-pressure chronic ulcer of left calf with fat layer exposed: CODE(S): L97.222 - Non-pressure chronic ulcer of left calf with fat layer exposed (2) Venous insufficiency (chronic) (peripheral): CODE(S): I87.2 - Venous insufficiency (chronic) (peripheral) (3) Bilateral lower extremity edema: CODE(S): R60.0 - Localized edema (4) 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: CODE(S): I83.003 - Varicose veins of unspecified lower extremity with ulcer of ankle; L97.302 - Non-pressure chronic ulcer of unspecified ankle with fat layer exposed QUALIFIERS: Varicose vein presence: with varicose veins Latera lity: left Qualified Code(s): I83.023 - Varicose veins of left lower extremity with ulcer of ankle; L97.322 - Non-pressure chronic ulcer of left ankle with fat layer exposed PLAN: Plan Patient seen and evaluated Predebridement measurement 3.0 cm x 0.9 cm x 0.1 cm Ulceration site did undergo debridement as noted in the clinical panel above. Postdebridement measurement 3.2 cm x 1.0 cm x 0.1 cm. Ricci to wound site, Adaptic applied to site, Suprasorb applied over this. Unna Boot compression applied to the left lower extremity. He is to continue to keep the dressing clean, dry, and intact and to utilize cast bag when showering to maintain compliance. There is increase in size of ulceration versus previous visit despite improvement in edema due to continued prolonged standing continued serous drainage post procedure. Swab culture was obtained of the site, awaiting results. Stat Doppler for 02/16/2025 was negative for DVT. He did undergo repeat venous study 03/14/25 and underwent venous ablation on April 13. He was again instructed on continued elevation of the lower extremities to aid in edema control. Following healing of ulcerative site he will return to compression stockings however this time we will increase from 20 to 30 mmHg to 30 to 40 mmHg versus application of juxta lite compression. Juxta lite compression wrap was applied for 02/16/2025, awaiting approval. Will apply for advanced wound care product, EpiFix for application. He is following with Dr. Mckee for procedure to aid in his venous insufficiency. Procedure performed 04/13/25. Recent visit with Dr. Mckee 04/26/2025. Discussed continued diet to aid in healing with adequate protein intake. Discussed signs and symptoms of infection. Discussed if he notices any increasing redness around the ulcerative site that is moved up the leg, purulent drainage from the ulcerative site, increasing foul odor from the ulcerative site, or if he develops fever greater than 101 degree accompanied by nausea, vomiting, chills of these are signs of a progressing infection and he should report to the ED for IV antibiotics and further evaluation. He is understanding of this today. The following work up and care recommendations were made: Dressing: Ricci to wound site, Adaptic and suprsorb to the left lower extremity with Unna boot compression. Will continue compression stocking to right lower extremity Wash: Do not get wet left lower extremity Tissue growth optimization: Ricci Offload: Unna boot compression Vascular: Does have history of positive venous insufficiency/reflux. Underwent procedure 04/13/2025 as above. Edema: Unna boot compression and elevation of the lower extremities Infection: No signs of infection Pain: May take [id number] Tylenol Extra Strength for discomfort Host factors: Chronic venous insufficiency, chronic lower extremity edema, prolonged standing/activity, advanced age complicate healing. Will return for unna boot dressing change on 05/22/2025 with nursing staff. I answered all the patient's questions. To return to the wound healing center in 1 week or call sooner if the patient has any questions or concerns.
--- NOTE | 2025-05-18 10:48 | PN.PCM_ITS ---
History of Present Illness Date of Service: 05/18/25 Chief Complaint: Left medial ankle wound History of Wound: The patient is seen today as a courtesy visit for Dr. Merrill Bruns, the patient's regular Wound Center provider. The patient's medical history is as recently documented below. Patient is a 79-year-old male who presents to the wound care center with recurring left lower extremity medial ankle wound. He has PMHx of recurring left lower extremity ulceration secondary to chronic venous insufficiency, history of DVT, obesity, JOSHUA, iron deficient anemia, delayed wound healing, and asthma. He states that he does have compression stockings and continues to wear them. He had been following in the wound care center for a deep ulceration to the medial aspect of the left lower extremity overlying the neurovascular bundle. He did go on to heal this ulceration as of 12/31/[address] Mckee for venogram. He has continued wearing compression stockings however states that while in the shower he did notice a scab of the left medial ankle and after showering applied antibiotic ointment and Band-Aid which later then the scab became soft and opened a small wound. He states that he did see his PCP who did obtain cultures and placed him on oral antibiotic. He was then referred to the wound care center for further follow-up. He denies any further trauma to the site. States that the specific site is recurrent with breakdown of skin. Denies N/V/F/chills. No further complaints. Subjective Subjective This is a 80-year-old male who returns to the wound care center for continued follow-up of a chronic venous stasis/insufficiency ulceration at the medial aspect of the left lower extremity. He underwent vascular procedure with Dr. Mckee on 04/13/25. Had recent follow-up with vascular on 04/26/2025. Was placed in unna boot compression last week in addition to being placed on lasix for one week. Edema secondary to his previous procedure has improved but drainage still remains due to patient long duration on his feet. States he does not sit often. Continues to try to elevating his legs higher than what he previously had been when he does sit. Still continues standing for long periods of time performing woodworking in his garage. He denies constitutional symptoms. Denies further complaints. Objective Data Objective Data Vital Signs: Vital Signs Temp Pulse Resp BP O2 Del Method 96.7 F L 67 18 130/67 H Room Air 05/18/25 09:10 05/18/25 09:10 05/18/25 09:10 05/18/25 09:10 05/18/25 09:10 Oxygen Delivery Method Room Air Physical Exam Const alert, oriented x3 and no apparent distress General Appearance: cooperative HEENT normocephalic Eyes General Eye: normal appearance of both eyes Neck General: normal visual inspection Lymph Lymphatic: no lymphadenopathy noted and no lymphedema noted Resp normal respiratory effort Cardio regular rate and regular rhythm Extremity no calf tenderness Extremity Narrative: Left lower extremity: Vascular: DP and PT pulses weakly palpable. Capillary fill time to digits is 5 seconds. Normal temperature gradient. There is absent hair growth to digits noted. Dermatological: There is a full-thickness ulceration noted to the medial aspect of the lower extremity/ankle with mixed fibro granular layer. Negative Stemmer sign left foot. There is evidence of stasis dermatitis with hyperpigmentation/hemosiderin deposition/staining of skin left lower extremity. There are varicosities noted of the lower extremity with mild lower extremity edema. There is no erythema or rubor of the left lower extremity. Does have increased edema secondary to his vascular procedure. Musculoskeletal: Muscle strength 5 of 5 age-appropriate. There is decreased range of motion of the ankle joint dorsiflexion with knee extended without pain or crepitus. Decreased range of motion of the STJ, MTJ, and first MTPJ without pain or crepitus. There is pain to palpation of the left calf today with positive Gómez sign and Homans' sign. Skin no rashes or lesions noted General Skin Exam: venous stasis and dermatitis Neuro moves all extremities Debridement Note Debridement Note Wound debrided: Left medial ankle Laterality: Left Wound Grade/Stage: Cisneros stage I Type of Debridement: Excisional debridement Anesthesia Used: 5% Lidocaine Gel Depth: Down to and including healthy tissue and in the subcutaneous layer Percentage of wound debrided: 100 Instrument Used: 5mm curette Tissue Removed: Fibrous, devitalized subcutaneous, biofilm, slough Severity: Fat Layer Exposed Amount of bleeding with debridement: Mild Bleeding Controlled with: Compression and gauze Patient tolerated procedure: Patient tolerated procedure well Post-Debridement Measurements and Additional Note: Post-Debridement Measurements/Treatment - Nurse 1 - General Ulcer Assessment Start: 04/20/25 08:43 Freq: Status: Active Protocol: LA NENA.LOWEXT Activity Type Activity Date Activity User E-sign Co-sign Detail Recorded Client Recorded Date Recorded By Document 04/20/25 08:43 KW [id number] 04/20/25 08:52 KW Document 04/27/25 08:53 DL [id number] 04/27/25 08:59 DL Document 05/04/25 08:54 KW [id number] 05/04/25 08:59 KW Document 05/11/25 09:44 DL [id number] 05/11/25 09:50 DL Document 05/15/25 15:13 ML [id number] 05/15/25 15:15 ML Document 05/18/25 09:10 KW [id number] 05/18/25 09:11 KW 04/20/25 04/27/25 05/04/25 08:43 08:53 08:54 WC - Today's Visit Information Type of service Follow-up Visit Follow-up Visit Follow-up Visit (Physician/SWEATBAND MAKER (Physician/SWEATBAND MAKER (Physician/SWEATBAND MAKER ) ) ) Arrival Mode Ambulatory Ambulatory Ambulatory Transfer Assistance None Patient Identification Verified (Name & Yes Yes Yes ) Patient Requires Transmission-Based No Precautions Vital Signs Temperature (97.8 F-99.1 F) 96.4 F L 96.8 F L 96.8 F L Temperature Source Temporal Temporal Temporal Pulse Rate (60-100) 66 68 69 Pulse Location Monitor Monitor Monitor Respiratory Rate (12-18) 18 18 18 Respiratory rate source Observation Observation Observation Oxygen Delivery Method Room Air Room Air Blood Pressure (90/60-120/80) 134/63 H 139/66 H 137/83 H Blood Pressure Mean (mm Hg) 86 90 101 Source Monitor Monitor Monitor Position Semi-Fowlers Semi-Fowlers Blood Pressure Location Left Arm Right Arm History Since Last Visit- (Skip if this is Patient's initial visit) Have you changed medications since your No No No last visit? Any new allergies or adverse reactions No No No Had a fall/change in ADL's that may No No No increase risk of falls Signs or symptoms of abuse and/or No No No neglect since last visit Have you been in the hospital since your No No No last visit? Has dressing in place as prescribed Yes Yes Yes Has compression in place as prescribed Yes Yes Yes Has offloadiing in place as prescribed N/A Yes N/A Experienced any changes in pain level or No No No management Left Footwear Regular Shoe Regular Shoe Regular Shoe Right Footwear Regular Shoe Regular Shoe Regular Shoe Pain Scale: 0-10 Numeric Is Patient Pain Free? Yes Yes Yes 05/11/25 05/15/25 05/18/25 09:44 15:13 09:10 - Today's Visit Information Type of service Follow-up Visit Nurse-only Follow-up Visit (Physician/SWEATBAND MAKER Visit (Physician/SWEATBAND MAKER ) ) Arrival Mode Ambulatory Ambulatory Ambulatory Transfer Assistance None None Patient Identification Verified (Name & Yes Yes Yes ) Patient Requires Transmission-Based No No Precautions Vital Signs Temperature (97.8 F-99.1 F) 97.7 F L 98 F 96.7 F L Temperature Source Temporal Temporal Temporal Pulse Rate (60-100) 66 79 67 Pulse Location Monitor Monitor Monitor Respiratory Rate (12-18) 16 14 18 Respiratory rate source Observation Monitor Observation Oxygen Delivery Method Room Air Blood Pressure (90/60-120/80) 142/75 H 119/68 130/67 H Blood Pressure Mean (mm Hg) 97 85 88 Source Monitor Monitor Monitor Position Sitting Semi-Fowlers Blood Pressure Location Right Arm Left Arm History Since Last Visit- (Skip if this is Patient's initial visit) Have you changed medications since your No No last visit? Any new allergies or adverse reactions No No Had a fall/change in ADL's that may No No increase risk of falls Signs or symptoms of abuse and/or No No neglect since last visit Have you been in the hospital since your No No last visit? Has dressing in place as prescribed Yes Yes Has compression in place as prescribed Yes Yes Has offloadiing in place as prescribed N/A N/A Experienced any changes in pain level or No No management Left Footwear Right Footwear Pain Scale: 0-10 Numeric Is Patient Pain Free? Yes Yes Yes [facility] Nurse 1 - General Ulcer Measurement Start: 04/20/25 08:43 Freq: Status: Active Protocol: Activity Type Activity Date Activity User E-sign Co-sign Detail Recorded Client Recorded Date Recorded By Document 04/20/25 08:43 KW [id number] 04/20/25 08:52 KW Document 04/27/25 08:53 DL [id number] 04/27/25 08:59 DL Document 05/04/25 08:54 KW [id number] 05/04/25 08:59 KW Document 05/11/25 09:44 DL [id number] 05/11/25 09:50 DL Document 05/15/25 15:17 ML [id number] 05/15/25 15:17 ML Document 05/18/25 09:10 KW [id number] 05/18/25 09:11 KW 04/20/25 04/27/25 05/04/25 08:43 08:53 08:54 Wound Center Nurse 1 #1 L Med Ankle CLUSTER -Current Size (cm) - Length 0.1 0.1 1.1 -Current Size (cm) - Width 0.1 0.1 1.1 -Current Size (cm) - Depth 0 0.1 0.1 -Total Square Cm 0.01 0.01 1.21 -Date of Last Picture (Recall this 04/20/25 field) -Photo Taken Yes -Exudate Amt None Present Large -Exudate Type Serosanguineous Serosanguineous -Wound Margin Indistinct, Non Distinct, Indistinct, Non -Visible Outline -Visible Attached -Granulation Amt Medium (34-66%) Large (67-100%) Large (67-100%) -Granulation Quality Chrisman Pale,Chrisman Chrisman -Necrosis Amt Medium (34-66%) Small (1-33%) -Necrotic Tissue Type Adherent Slough Adherent Slough -Structure Exposed N/A -Texture (Megan-wound Skin Appearance) Assessed Localized Edema Assessed, ,Scarring Localized Edema -Moisture (Megan-wound Skin Appearance) Assessed No Abnormality Assessed,Dry/ Scaly -Color (Megan-wound Skin Appearance) Assessed, No Abnormality Assessed, Hemosiderin Erythema Staining -Temperature (Megan-wound Skin No Abnormality No Abnormality No Abnormality Appearance) (Pt Warm) (Pt Warm) (Pt Warm) -Tenderness on Palpation (Megan-wound No No No Skin Appearance) -Ulcer Cleansing Soap and Water Soap and Water Rinsed/ Irrigated with Saline -Foul Odor after Cleansing No No -Anesthetic Used 5% Lidocaine 5% Lidocaine 5% Lidocaine Gel Gel Gel Left Calf (cm) 37.5 39.3 39.5 Left Ankle (cm) 26.5 24.5 23 05/11/25 05/15/25 05/18/25 09:44 15:17 09:10 Wound Center Nurse 1 #1 L Med Ankle CLUSTER -Current Size (cm) - Length 4.6 4.2 -Current Size (cm) - Width 0.6 1.3 -Current Size (cm) - Depth 0.1 0.1 -Total Square Cm 2.76 5.46 -Date of Last Picture (Recall this 05/18/25 field) -Photo Taken -Exudate Amt Small Medium -Exudate Type Serosanguineous Serosanguineous -Wound Margin Distinct, Distinct, Outline Outline Attached Attached -Granulation Amt Large (67-100%) Large (67-100%) -Granulation Quality Chrisman Red -Necrosis Amt None Present (0 Large (67-100%) %) -Necrotic Tissue Type Adherent Slough -Structure Exposed N/A -Texture (Megan-wound Skin Appearance) Scarring Assessed -Moisture (Megan-wound Skin Appearance) No Abnormality Assessed -Color (Megan-wound Skin Appearance) Hemosiderin Assessed, Staining Erythema -Temperature (Megan-wound Skin No Abnormality No Abnormality Appearance) (Pt Warm) (Pt Warm) -Tenderness on Palpation (Megan-wound No Skin Appearance) -Ulcer Cleansing Soap and Water Soap and Water -Foul Odor after Cleansing No -Anesthetic Used 5% Lidocaine 5% Lidocaine Gel Gel Left Calf (cm) 41 35.5 41.7 Left Ankle (cm) 23 23 23.3 WC - Nurse 2 - General Ulcer CM Notes Start: 04/20/25 08:43 Freq: Status: Active Protocol: Activity Type Activity Date Activity User E-sign Co-sign Detail Recorded Client Recorded Date Recorded By Document 04/20/25 09:11 BMF [id number] 04/20/25 09:15 BMF Edit Result 04/20/25 09:11 BMF (1) 10..25.7 04/20/25 09:28 BMF Document 04/27/25 09:07 BMF [id number] 04/27/25 09:12 BMF Document 05/04/25 09:09 BMF [id number] 05/04/25 09:13 BMF Document 05/11/25 10:07 BMF [id number] 05/11/25 10:12 BMF Document 05/18/25 09:58 BMF [id number] 05/18/25 10:07 BMF (1) #1 L Med Ankle CLUSTER - Post Debridement (cm) - Length 0.1 => 0.5 - Post Debridement (cm) - Width 0.1 => 0.5 - Total Square (Post) (cm) 0.01 => 0.25 - Area of Debridement (cm) - Length 0.1 => 0.5 - Area of Debridement (cm) - Width 0.1 => 0.5 - Total Square (Area) (cm) 0.01 => 0.25 04/20/25 04/27/25 05/04/25 09:11 09:07 09:09 Wound Center Nurse 2 #1 L Med Ankle CLUSTER -Time : 09:07 09:09 -Correct Patient Yes Yes -Correct Side, Site, Position Yes Yes -Correct Procedure Yes Yes -Procedure Performed Yes Yes -Type of Procedure Debridement Debridement -Clinical Debridement Subcutaneous Subcutaneous -Tissue Removed Subcutaneous Subcutaneous -Post Debridement (cm) - Length 0.5 1.1 2 -Post Debridement (cm) - Width 0.5 1.1 1.6 -Post Debridement (cm) - Depth 0.1 0.1 0.1 -Total Square (Post) (cm) 0.25 1.21 3.2 -Area of Debridement (cm) - Length 0.5 1.1 2 -Area of Debridement (cm) - Width 0.5 1.1 1.6 -Total Square (Area) (cm) 0.25 1.21 3.2 -Tunneling No No No -Undermining/Tunneling No No No -Circular Undermining No No No -Wound/Ulcer Outcome Not Healed Not Healed Not Healed -Ulcer Cleansing Rinsed/ Rinsed/ Irrigated with Irrigated with Saline Saline -Foul Odor after Cleansing No No -Bioengineered Tissue No No -Bleeding Controlled with NA Pressure Pressure -Treatment Response Procedure Procedure Tolerated Well Tolerated Well -Debridement - Subq, 1st 20sq cm Yes Yes Pain Scale: 0-10 Numeric Is Patient Pain Free? Yes Yes Yes 05/11/25 05/18/25 10:07 09:58 Wound Center Nurse 2 #1 [facility] Ankle CLUSTER -Time 10:07 09:58 -Correct Patient Yes Yes -Correct Side, Site, Position Yes Yes -Correct Procedure Yes Yes -Procedure Performed Yes Yes -Type of Procedure Debridement Debridement -Clinical Debridement Subcutaneous Subcutaneous -Tissue Removed Subcutaneous Subcutaneous -Post Debridement (cm) - Length 1.9 3.2 -Post Debridement (cm) - Width 1.9 1 -Post Debridement (cm) - Depth 0.1 0.1 -Total Square (Post) (cm) 3.61 3.2 -Area of Debridement (cm) - Length 1.9 3.2 -Area of Debridement (cm) - Width 1.9 1 -Total Square (Area) (cm) 3.61 3.2 -Tunneling No No -Undermining/Tunneling No No -Circular Undermining No No -Wound/Ulcer Outcome Not Healed Not Healed -Ulcer Cleansing Rinsed/ Irrigated with Saline -Foul Odor after Cleansing No -Bioengineered Tissue No -Bleeding Controlled with Pressure Pressure -Treatment Response Procedure Procedure Tolerated Well Tolerated Well -Debridement - Subq, 1st 20sq cm Yes Yes Pain Scale: 0-10 Numeric Is Patient Pain Free? Yes Yes - Nurse 3 - General Ulcer D/C NN Start: 04/20/25 08:43 Freq: Status: Active Protocol: Activity Type Activity Date Activity User E-sign Co-sign Detail Recorded Client Recorded Date Recorded By Document 04/20/25 09:33 KW [id number] 04/20/25 09:34 KW Document 04/27/25 09:24 [facility] [id number] 04/27/25 09:25 [facility] Document 05/04/25 09:22 [facility] [id number] 05/04/25 09:22 [facility] Document 05/11/25 10:40 MT [id number] 05/11/25 10:41 MT Document 05/15/25 15:13 ML [id number] 05/15/25 15:15 ML Document 05/18/25 10:11 KW [id number] 05/18/25 10:11 04/20/25 04/27/25 05/04/25 09:33 09:24 09:22 Wound Care Center Nurse 3 #1 L Med Ankle CLUSTER -Ulcer Cleansing Rinsed/ Rinsed/ Irrigated with Irrigated with Saline Saline -Foul Odor after Cleansing No No -Negative Pressure Wound Therapy -Primary Dressing Applied NonAdherent NonAdherent NonAdherent Contact Layer, Contact Layer, Contact Layer, Silicone Border Silicone Border Silicone Border Foam 4x4 Foam 4x4 Foam 4x4 -Other Dressing adaptic BETADINE -Primary Dressing Covered/Secured with -Aquacel Extra -Promogran Ricci Matter -Silicone Border Foam 4x4 1 1 1 LLE -Multi-Layered Wrap Application -Tubular Bandage Double Layer Double Layer Double Layer -Size of Tubigrip Used Size E Size D Size D -Size D ($) 2 2 -Size E ($) 2 -Unna- Left (Qty applied) Treatment Response Procedure Tolerated Well Pain Scale: 0-10 Numeric Is Patient Pain Free? Yes Yes Yes WC - Visit Discharge Discharge Condition Stable Stable Stable Ambulatory Status Ambulatory Ambulatory Ambulatory Transportation Private Auto Private Auto Private Auto Medication Reconcilliation completed & No provided to patient/care provider Clinical Summary of Care Provided Yes Notes: 05/11/25 05/15/25 05/18/25 10:40 15:13 10:11 Wound Care Center Nurse 3 #1 L Med Ankle CLUSTER -Ulcer Cleansing Soap and Water Soap and Water -Foul Odor after Cleansing No -Negative Pressure Wound Therapy N/A -Primary Dressing Applied Promogran Promogran Aquacel Extra, Ricci Matter Ricci Matter NonAdherent Contact Layer -Other Dressing unna pt own ricci -Primary Dressing Covered/Secured with Dry Gauze, Secured with Tape -Aquacel Extra 1 -Promogran Ricci Matter 1 1 -Silicone Border Foam 4x4 LLE -Multi-Layered Wrap Application Unna Boot - Unna Boot - Unna Boot - Left Left Left -Tubular Bandage -Size of Tubigrip Used -Size D ($) -Size E ($) -Unna- Left (Qty applied) 1 1 1 Treatment Response Pain Scale: 0-10 Numeric Is Patient Pain Free? Yes Yes Yes WC - Visit Discharge Discharge Condition Stable Stable Ambulatory Status Ambulatory Ambulatory Transportation Private Auto Private Auto Medication Reconcilliation completed & No No provided to patient/care provider Clinical Summary of Care Provided Yes Yes Notes: UNNA BOOT PLACED. PT KNOWS TO PLACE BAG OVER WHEN GETTING WET. Assessment/Plan Assessment/Plan (1) Non-pressure chronic ulcer of left calf with fat layer exposed: CODE(S): L97.222 - Non-pressure chronic ulcer of left calf with fat layer exposed (2) Venous insufficiency (chronic) (peripheral): CODE(S): I87.2 - Venous insufficiency (chronic) (peripheral) (3) Bilateral lower extremity edema: CODE(S): R60.0 - Localized edema (4) 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: CODE(S): I83.003 - Varicose veins of unspecified lower extremity with ulcer of ankle; L97.302 - Non-pressure chronic ulcer of unspecified ankle with fat layer exposed QUALIFIERS: Varicose vein presence: with varicose veins Latera lity: left Qualified Code(s): I83.023 - Varicose veins of left lower extremity with ulcer of ankle; L97.322 - Non-pressure chronic ulcer of left ankle with fat layer exposed PLAN: Plan Patient seen and evaluated Predebridement measurement 3.0 cm x 0.9 cm x 0.1 cm Ulceration site did undergo debridement as noted in the clinical panel above. Postdebridement measurement 3.2 cm x 1.0 cm x 0.1 cm. Ricci to wound site, Adaptic applied to site, Suprasorb applied over this. Unna Boot compression applied to the left lower extremity. He is to continue to keep the dressing clean, dry, and intact and to utilize cast bag when showering to maintain compliance. There is increase in size of ulceration versus previous visit despite improvement in edema due to continued prolonged standing continued serous drainage post procedure. Swab culture was obtained of the site, awaiting results. Stat Doppler for 02/16/2025 was negative for DVT. He did undergo repeat venous study 03/14/25 and underwent venous ablation on April 13. He was again instructed on continued elevation of the lower extremities to aid in edema control. Following healing of ulcerative site he will return to compression stockings however this time we will increase from 20 to 30 mmHg to 30 to 40 mmHg versus application of juxta lite compression. Juxta lite compression wrap was applied for 02/16/2025, awaiting approval. Will apply for advanced wound care product, EpiFix for application. He is following with Dr. Mckee for procedure to aid in his venous insufficiency. Procedure performed 04/13/25. Recent visit with Dr. Mckee 04/26/2025. Discussed continued diet to aid in healing with adequate protein intake. Discussed signs and symptoms of infection. Discussed if he notices any increasing redness around the ulcerative site that is moved up the leg, purulent drainage from the ulcerative site, increasing foul odor from the ulcerative site, or if he develops fever greater than 101 degree accompanied by nausea, vomiting, chills of these are signs of a progressing infection and he should report to the ED for IV antibiotics and further evaluation. He is understanding of this today. The following work up and care recommendations were made: Dressing: Ricci to wound site, Adaptic and suprsorb to the left lower extremity with Unna boot compression. Will continue compression stocking to right lower extremity Wash: Do not get wet left lower extremity Tissue growth optimization: Ricci Offload: Unna boot compression Vascular: Does have history of positive venous insufficiency/reflux. Underwent procedure 04/13/2025 as above. Edema: Unna boot compression and elevation of the lower extremities Infection: No signs of infection Pain: May take [id number] Tylenol Extra Strength for discomfort Host factors: Chronic venous insufficiency, chronic lower extremity edema, prolonged standing/activity, advanced age complicate healing. Will return for unna boot dressing change on 05/22/2025 with nursing staff. I answered all the patient's questions. To return to the wound healing center in 1 week or call sooner if the patient has any questions or concerns.
--- NOTE | 2025-05-19 09:25 | WC ---
PHOTO-LEFT MED ANKLE 05/18/25
--- NOTE | 2025-05-19 09:25 | WC ---
PHOTO-LEFT MED ANKLE 05/18/25
== END 2025-05-18 23:59 | disposition home or self-care (01) ==
LOC: WC 15:11
PROVIDERS: PCP Family Medicine; Referring Provider Family Medicine; Visit Provider Student in an Organized Health Care Education/Training Program
DX: I83.023 Varicose veins of left lower extremity with ulcer of ankle (principal); L97.222 Non-pressure chronic ulcer of left calf with fat layer exposed; L97.302 Non-pressure chronic ulcer of unspecified ankle with fat layer exposed; Z86.718 Personal history of other venous thrombosis and embolism; R60.0 Localized edema; I87.2 Venous insufficiency (chronic) (peripheral)
CPT/HCPCS: 11042; 29580; 87070; 87075; 87077; 87186; 87205; 99213; G0463

== ENCOUNTER 2025-06-15 09:15 | Outpatient (RCR) | payer MEDICARE, OTHER, SELFPAY ==
[2025-05-22 09:38] VITALS: BP 118/57; PULSE 70; RESP 16; TEMP 35.9
[2025-05-25 09:44] VITALS: BP 133/74; PULSE 65; RESP 18; TEMP 36.1
--- NOTE | 2025-05-25 12:30 | PCM.WC.PN ---
History of Present Illness Date of Service: 05/25/25 Chief Complaint: Left medial ankle wound History of Wound: The patient is seen today as a courtesy visit for Dr. Merrill Burns, the patient's regular Wound Center provider. The patient's medical history is as recently documented below. Patient is a 79-year-old male who presents to the wound care center with recurring left lower extremity medial ankle wound. He has PMHx of recurring left lower extremity ulceration secondary to chronic venous insufficiency, history of DVT, obesity, JOSHUA, iron deficient anemia, delayed wound healing, and asthma. He states that he does have compression stockings and continues to wear them. He had been following in the wound care center for a deep ulceration to the medial aspect of the left lower extremity overlying the neurovascular bundle. He did go on to heal this ulceration as of 12/31/[address] Mckee for venogram. He has continued wearing compression stockings however states that while in the shower he did notice a scab of the left medial ankle and after showering applied antibiotic ointment and Band-Aid which later then the scab became soft and opened a small wound. He states that he did see his PCP who did obtain cultures and placed him on oral antibiotic. He was then referred to the wound care center for further follow-up. He denies any further trauma to the site. States that the specific site is recurrent with breakdown of skin. Denies N/V/F/chills. No further complaints. Subjective Subjective This is a 80-year-old male who returns to the wound care center for continued follow-up of a chronic venous stasis/insufficiency ulceration at the medial aspect of the left lower extremity. He underwent vascular procedure with Dr. Mckee on 04/13/25. Had recent follow-up with vascular on 04/26/2025. Was placed in unna boot compression in addition to being placed on lasix for one week with improvement noted in edema. Edema secondary to his previous procedure has improved but drainage still remains due to patient long duration on his feet. States he does not sit often. Continues to try to elevating his legs higher than what he previously had been when he does sit. Does have some redness and tenderness around the wound site. Still continues standing for long periods of time performing woodworking in his garage. He denies constitutional symptoms. Denies further complaints. Objective Data Objective Data Vital Signs: Vital Signs Temp Pulse Resp BP 96.9 F L 65 18 133/74 H 05/25/25 09:44 05/25/25 09:44 05/25/25 09:44 05/25/25 09:44 Physical Exam Const alert, oriented x3 and no apparent distress General Appearance: cooperative HEENT normocephalic Eyes General Eye: normal appearance of both eyes Neck General: normal visual inspection Lymph Lymphatic: no lymphadenopathy noted and no lymphedema noted Resp normal respiratory effort Cardio regular rate and regular rhythm Extremity no calf tenderness Extremity Narrative: Left lower extremity: Vascular: DP and PT pulses weakly palpable. Capillary fill time to digits is 5 seconds. Normal temperature gradient. There is absent hair growth to digits noted. Dermatological: There is a full-thickness ulceration noted to the medial aspect of the lower extremity/ankle with mixed fibro granular layer. Negative Stemmer sign left foot. There is evidence of stasis dermatitis with hyperpigmentation/hemosiderin deposition/staining of skin left lower extremity. There are varicosities noted of the lower extremity with mild lower extremity edema. There is no erythema or rubor of the left lower extremity. Does have increased edema secondary to his vascular procedure. Musculoskeletal: Muscle strength 5 of 5 age-appropriate. There is decreased range of motion of the ankle joint dorsiflexion with knee extended without pain or crepitus. Decreased range of motion of the STJ, MTJ, and first MTPJ without pain or crepitus. No pain to palpation of calf. Skin no rashes or lesions noted General Skin Exam: venous stasis and dermatitis Neuro moves all extremities Debridement Note Debridement Note Wound debrided: Left lower extremity Laterality: Left Wound Grade/Stage: Cisneros stage I Type of Debridement: Excisional debridement Anesthesia Used: 5% Lidocaine Gel Depth: Down to and including healthy tissue and in the subcutaneous layer Percentage of wound debrided: 100 Instrument Used: 5mm curette Tissue Removed: Fibrous, devitalized subcutaneous, biofilm, slough Severity: Fat Layer Exposed Amount of bleeding with debridement: Mild Bleeding Controlled with: Compression and gauze Patient tolerated procedure: Patient tolerated procedure well Post-Debridement Measurements and Additional Note: Post-Debridement Measurements/Treatment LA NENA - Nurse 1 - General Ulcer Assessment Start: 05/22/25 09:37 Freq: Status: Active Protocol: ANAYA Activity Type Activity Date Activity User E-sign Co-sign Detail Recorded Client Recorded Date Recorded By Document 05/22/25 09:38 [id number] 05/22/25 09:39 Document 05/25/25 09:44 DL [id number] 05/25/25 09:52 DL 05/22/25 05/25/25 09:38 09:44 - Today's Visit Information Type of service Nurse-only Follow-up Visit Visit (Physician/ADMINISTRATIVE ASSISTANT DATA ENTRY ) Arrival Mode Ambulatory Ambulatory Transfer Assistance Manual Patient Identification Verified (Name & No Yes ) Patient Requires Transmission-Based No Precautions Vital Signs Temperature (97.8 F-99.1 F) 96.7 F L 96.9 F L Temperature Source Temporal Temporal Pulse Rate (60-100) 70 65 Pulse Location Monitor Monitor Respiratory Rate (12-18) 16 18 Respiratory rate source Observation Observation Blood Pressure (90/60-120/80) 118/57 L 133/74 H Blood Pressure Mean (mm Hg) 77 93 Source Monitor Monitor Position Sitting Blood Pressure Location Left Arm History Since Last Visit- (Skip if this is Patient's initial visit) Have you changed medications since your No last visit? Any new allergies or adverse reactions No Had a fall/change in ADL's that may No increase risk of falls Signs or symptoms of abuse and/or No neglect since last visit Have you been in the hospital since your No last visit? Has dressing in place as prescribed Yes Has compression in place as prescribed Yes Has offloadiing in place as prescribed N/A Experienced any changes in pain level or No management Pain Scale: 0-10 Numeric Is Patient Pain Free? Yes Yes - Nurse 1 - General Ulcer Measurement Start: 05/22/25 09:37 Freq: Status: Active Protocol: Activity Type Activity Date Activity User E-sign Co-sign Detail Recorded Client Recorded Date Recorded By Document 05/22/25 09:38 JF [id number] 05/22/25 09:39 Document 05/25/25 09:44 DL [id number] 05/25/25 09:52 DL 05/22/25 05/25/25 09:38 09:44 Wound Center Nurse 1 #1 L Med Ankle CLUSTER -Current Size (cm) - Length 6 -Current Size (cm) - Width 1.8 -Current Size (cm) - Depth 0.1 -Total Square Cm 10.8 -Photo Taken Yes -Exudate Amt Medium -Exudate Type Serosanguineous -Wound Margin Thickened -Granulation Amt Medium (34-66%) -Granulation Quality Red -Necrosis Amt Medium (34-66%) -Necrotic Tissue Type Adherent Slough -Structure Exposed N/A -Texture (Megan-wound Skin Appearance) Scarring -Moisture (Megan-wound Skin Appearance) No Abnormality -Color (Megan-wound Skin Appearance) No Abnormality -Temperature (Megan-wound Skin No Abnormality Appearance) (Pt Warm) -Ulcer Cleansing Soap and Water -Foul Odor after Cleansing No -Anesthetic Used 5% Lidocaine Gel Lower Limb Edema Present NA WC - Nurse 2 - General Ulcer CM Notes Start: 05/22/25 09:37 Freq: Status: Active Protocol: Activity Type Activity Date Activity User E-sign Co-sign Detail Recorded Client Recorded Date Recorded By Document 05/25/25 10:32 DS [id number] 05/25/25 10:34 DS 05/25/25 10:32 Wound Center Nurse 2 -Time 10:33 -Correct Patient Yes -Correct Side, Site, Position Yes -Correct Procedure Yes -Procedure Performed Yes -Type of Procedure Debridement -Clinical Debridement Subcutaneous -Tissue Removed Subcutaneous -Post Debridement (cm) - Length 4.5 -Post Debridement (cm) - Width 2.2 -Post Debridement (cm) - Depth 0.1 -Total Square (Post) (cm) 9.90 -Area of Debridement (cm) - Length 4.5 -Area of Debridement (cm) - Width 2.2 -Total Square (Area) (cm) 9.90 -Tunneling No -Undermining/Tunneling No -Circular Undermining No -Wound/Ulcer Outcome Not Healed -Ulcer Cleansing Rinsed/ Irrigated with Saline -Foul Odor after Cleansing No -Bioengineered Tissue No -Bleeding Controlled with Pressure -Treatment Response Procedure Tolerated Well -Debridement - Subq, 1st 20sq cm Yes Pain Scale: 0-10 Numeric Is Patient Pain Free? Yes - Nurse 3 - General Ulcer D/C NN Start: 05/22/25 09:37 Freq: Status: Active Protocol: Activity Type Activity Date Activity User E-sign Co-sign Detail Recorded Client Recorded Date Recorded By Document 05/22/25 09:38 JF [id number] 05/22/25 09:39 JF Document 05/25/25 10:58 DL [id number] 05/25/25 11:00 DL 05/22/25 05/25/25 09:38 10:58 Pain Scale: 0-10 Numeric Is Patient Pain Free? Yes Yes Wound Care Center Nurse 3 #1 L Med Ankle CLUSTER -Ulcer Cleansing Rinsed/ dakins Irrigated with Saline -Foul Odor after Cleansing No -Primary Dressing Applied Aquacel Extra, NonAdherent Contact Layer, Promogran Ricci Matter -Other Dressing Unna -Primary Dressing Covered/Secured with Dry Gauze & Roll Gauze -Aquacel Extra 1 -Promogran Ricci Matter 1 -Wound Comment(s) use patient's own supply of ricci and aqaucel extra LLE -Multi-Layered Wrap Application Unna Boot - Unna Boot - Left Left -Unna- Left (Qty applied) 1 1 Treatment Response Procedure Tolerated Well WC - Visit Discharge Discharge Condition Stable Stable Ambulatory Status Ambulatory Ambulatory Transportation Private Auto Private Auto Medication Reconcilliation completed & Yes provided to patient/care provider Clinical Summary of Care Provided Yes Assessment/Plan Assessment/Plan (1) Non-pressure chronic ulcer of left calf with fat layer exposed: CODE(S): L97.222 - Non-pressure chronic ulcer of left calf with fat layer exposed (2) Cellulitis of left lower limb: CODE(S): L03.116 - Cellulitis of left lower limb (3) Venous insufficiency (chronic) (peripheral): CODE(S): I87.2 - Venous insufficiency (chronic) (peripheral) (4) Bilateral lower extremity edema: CODE(S): R60.0 - Localized edema (5) 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: CODE(S): I83.003 - Varicose veins of unspecified lower extremity with ulcer of ankle; L97.302 - Non-pressure chronic ulcer of unspecified ankle with fat layer exposed QUALIFIERS: Varicose vein presence: with varicose veins Laterality: left Qualified Code(s): I83.023 - Varicose veins of left lower extremity with ulcer of ankle; L97.322 - Non-pressure chronic ulcer of left ankle with fat layer exposed PLAN: Plan Patient seen and evaluated Predebridement measurement 4.4 cm x 2.1 cm x 0.1 cm Postdebridement measurement 4.5 cm x 2.2 cm x 0.1 cm Ulceration site did undergo debridement as noted in the clinical panel above. Site cleansed with Dakin's. Ricci to wound site, Adaptic applied to site, Suprasorb applied over this. Unna Boot compression applied to the left lower extremity. He is to continue to keep the dressing clean, dry, and intact and to utilize cast bag when showering to maintain compliance. There is increase in size of ulceration versus previous visit despite improvement in edema due to continued prolonged standing continued serous drainage post procedure. Swab culture was obtained of the site 05/18/2025. Results demonstrate strep agalactiae and Serratia marcescens. Due to positive cultures following his Dakin's wash he was prescribed doxycycline 100 mg twice daily x 14 days and ciprofloxacin 500 mg twice daily x 14 days (stop date 06/08/2025). Will continue to monitor for improvement. Stat Doppler for 02/16/2025 was negative for DVT. He did undergo repeat venous study 03/14/25 and underwent venous ablation on April 13. He was again instructed on continued elevation of the lower extremities to aid in edema control. Following healing of ulcerative site he will return to compression stockings however this time we will increase from 20 to 30 mmHg to 30 to 40 mmHg versus application of juxta lite compression. Juxta lite compression wrap was applied for 02/16/2025, awaiting approval. Will apply for advanced wound care product, EpiFix for application. He is following with Dr. Mckee for procedure to aid in his venous insufficiency. Procedure performed 04/13/25. Recent visit with Dr. Mckee 04/26/2025. Discussed continued diet to aid in healing with adequate protein intake. Discussed signs and symptoms of infection. Discussed if he notices any increasing redness around the ulcerative site that is moved up the leg, purulent drainage from the ulcerative site, increasing foul odor from the ulcerative site, or if he develops fever greater than 101 degree accompanied by nausea, vomiting, chills of these are signs of a progressing infection and he should report to the ED for IV antibiotics and further evaluation. He is understanding of this today. The following work up and care recommendations were made: Dressing: Ricci to wound site, Adaptic and suprsorb to the left lower extremity with Unna boot compression. Will continue compression stocking to right lower extremity Wash: Do not get wet left lower extremity Tissue growth optimization: Ricci Offload: Unna boot compression Vascular: Does have history of positive venous insufficiency/reflux. Underwent procedure 04/13/2025 as above. Edema: Unna boot compression and elevation of the lower extremities Infection: No signs of infection Pain: May take [id number] Tylenol Extra Strength for discomfort Host factors: Chronic venous insufficiency, chronic lower extremity edema, prolonged standing/activity, advanced age complicate healing. Will return for unna boot dressing change on 05/29/2025 with nursing staff. I answered all the patient's questions. To return to the wound healing center in 1 week or call sooner if the patient has any questions or concerns.
[2025-05-29 11:31] VITALS: BP 118/80; PULSE 66; RESP 18; TEMP 36.4
[2025-06-01 09:52] VITALS: BP 119/71; PULSE 60; RESP 18; TEMP 35.9
--- NOTE | 2025-06-01 13:33 | PN.PCM_ITS ---
History of Present Illness Date of Service: 06/01/25 Chief Complaint: Left medial ankle wound History of Wound: The patient is seen today as a courtesy visit for Dr. Merrill Burns, the patient's regular Wound Center provider. The patient's medical history is as recently documented below. Patient is a 79-year-old male who presents to the wound care center with recurring left lower extremity medial ankle wound. He has PMHx of recurring left lower extremity ulceration secondary to chronic venous insufficiency, history of DVT, obesity, JOSHUA, iron deficient anemia, delayed wound healing, and asthma. He states that he does have compression stockings and continues to wear them. He had been following in the wound care center for a deep ulceration to the medial aspect of the left lower extremity overlying the neurovascular bundle. He did go on to heal this ulceration as of 12/31/[address] Mckee for venogram. He has continued wearing compression stockings however states that while in the shower he did notice a scab of the left medial ankle and after showering applied antibiotic ointment and Band-Aid which later then the scab became soft and opened a small wound. He states that he did see his PCP who did obtain cultures and placed him on oral antibiotic. He was then referred to the wound care center for further follow-up. He denies any further trauma to the site. States that the specific site is recurrent with breakdown of skin. Denies N/V/F/chills. No further complaints. Subjective Subjective This is a 80-year-old male who returns to the wound care center for continued follow-up of a chronic venous stasis/insufficiency ulceration at the medial aspect of the left lower extremity. He underwent vascular procedure with Dr. Mckee on 04/13/25. Had recent follow-up with vascular on 04/26/2025. Was placed in unna boot compression in addition to being placed on lasix for one week with improvement noted in edema. Edema secondary to his previous procedure has improved but drainage still remains due to patient long duration on his feet. States he does not sit often. Continues to try to elevating his legs higher than what he previously had been when he does sit. Reports improvement in redness and tenderness around the wound site with taking oral antibiotic. Still continues standing for long periods of time performing woodworking in his garage. He denies constitutional symptoms. Denies further complaints. Objective Data Objective Data Vital Signs: Vital Signs Temp Pulse Resp BP 96.7 F L 60 18 119/71 06/01/25 09:52 06/01/25 09:52 06/01/25 09:52 06/01/25 09:52 Physical Exam Const alert, oriented x3 and no apparent distress General Appearance: cooperative HEENT normocephalic Eyes General Eye: normal appearance of both eyes Neck General: normal visual inspection Lymph Lymphatic: no lymphadenopathy noted and no lymphedema noted Resp normal respiratory effort Cardio regular rate and regular rhythm Extremity no calf tenderness Extremity Narrative: Left lower extremity: Vascular: DP and PT pulses weakly palpable. Capillary fill time to digits is 5 seconds. Normal temperature gradient. There is absent hair growth to digits noted. Dermatological: There is a full-thickness ulceration noted to the medial aspect of the lower extremity/ankle with mixed fibro granular layer. Negative Stemmer sign left foot. There is evidence of stasis dermatitis with hyperpigmentation/hemosiderin deposition/staining of skin left lower extremity. There are varicosities noted of the lower extremity with mild lower extremity edema. There is no erythema or rubor of the left lower extremity. Does have increased edema secondary to his vascular procedure. Musculoskeletal: Muscle strength 5 of 5 age-appropriate. There is decreased range of motion of the ankle joint dorsiflexion with knee extended without pain or crepitus. Decreased range of motion of the STJ, MTJ, and first MTPJ without pain or crepitus. No pain to palpation of calf. Skin no rashes or lesions noted General Skin Exam: venous stasis and dermatitis Neuro moves all extremities Debridement Note Debridement Note Wound debrided: Left lower extremity Laterality: Left Wound Grade/Stage: Cisneros stage I Type of Debridement: Excisional debridement Anesthesia Used: 5% Lidocaine Gel Depth: Down to and including healthy tissue and in the subcutaneous layer Percentage of wound debrided: 100 Instrument Used: 5mm curette Tissue Removed: Fibrous, devitalized subcutaneous, biofilm, slough Severity: Fat Layer Exposed Amount of bleeding with debridement: Mild Bleeding Controlled with: Compression and gauze Patient tolerated procedure: Patient tolerated procedure well Post-Debridement Measurements and Additional Note: Post-Debridement Measurements/Treatment LA NENA - Nurse 1 - General Ulcer Assessment Start: 05/22/25 09:37 Freq: Status: Active Protocol: ANAYA Activity Type Activity Date Activity User E-sign Co-sign Detail Recorded Client Recorded Date Recorded By Document 05/22/25 09:38 JF [id number] 05/22/25 09:39 JF Document 05/25/25 09:44 DL [id number] 05/25/25 09:52 DL Document 05/29/25 11:31 JF [id number] 05/29/25 11:34 JF Document 06/01/25 09:52 DL [id number] 06/01/25 10:02 DL 05/22/25 05/25/25 05/29/25 09:38 09:44 11:31 - Today's Visit Information Type of service Nurse-only Follow-up Visit Nurse-only Visit (Physician/MAINTENANCE MACHINE 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 Visit ) Arrival Mode Ambulatory Ambulatory Ambulatory Transfer Assistance Manual Patient Identification Verified (Name & No Yes Yes ) Patient Requires Transmission-Based No No Precautions Vital Signs Temperature (97.8 F-99.1 F) 96.7 F L 96.9 F L 97.6 F L Temperature Source Temporal Temporal Temporal Pulse Rate (60-100) 70 65 66 Pulse Location Monitor Monitor Monitor Respiratory Rate (12-18) 16 18 18 Respiratory rate source Observation Observation Observation Blood Pressure (90/60-120/80) 118/57 L 133/74 H 118/80 Blood Pressure Mean (mm Hg) 77 93 92 Source Monitor Monitor Monitor Position Sitting Semi-Fowlers Blood Pressure Location Left Arm Left Arm History Since Last Visit- (Skip if this is Patient's initial visit) Have you changed medications since your No last visit? Any new allergies or adverse reactions No Had a fall/change in ADL's that may No increase risk of falls Signs or symptoms of abuse and/or No neglect since last visit Have you been in the hospital since your No last visit? Has dressing in place as prescribed Yes Has compression in place as prescribed Yes Has offloadiing in place as prescribed N/A Experienced any changes in pain level or No management Left Footwear Regular Shoe Right Footwear Regular Shoe Pain Scale: 0-10 Numeric Is Patient Pain Free? Yes Yes Yes 06/01/25 09:52 - Today's Visit Information Type of service Follow-up Visit (Physician/MAINTENANCE MACHINE REPAIRER ) Arrival Mode Ambulatory Transfer Assistance None Patient Identification Verified (Name & Yes ) Patient Requires Transmission-Based No Precautions Vital Signs Temperature (97.8 F-99.1 F) 96.7 F L Temperature Source Temporal Pulse Rate (60-100) 60 Pulse Location Monitor Respiratory Rate (12-18) 18 Respiratory rate source Observation Blood Pressure (90/60-120/80) 119/71 Blood Pressure Mean (mm Hg) 87 Source Monitor Position Blood Pressure Location History Since Last Visit- (Skip if this is Patient's initial visit) Have you changed medications since your No last visit? Any new allergies or adverse reactions No Had a fall/change in ADL's that may No increase risk of falls Signs or symptoms of abuse and/or No neglect since last visit Have you been in the hospital since your No last visit? Has dressing in place as prescribed Yes Has compression in place as prescribed Yes Has offloadiing in place as prescribed Yes Experienced any changes in pain level or No management Left Footwear Right Footwear Pain Scale: 0-10 Numeric Is Patient Pain Free? Yes WC - Nurse 1 - General Ulcer Measurement Start: 05/22/25 09:37 Freq: Status: Active Protocol: Activity Type Activity Date Activity User E-sign Co-sign Detail Recorded Client Recorded Date Recorded By Document 05/22/25 09:38 [id number] 05/22/25 09:39 JF Document 05/25/25 09:44 DL [id number] 05/25/25 09:52 DL Document 05/29/25 11:31 JF [id number] 05/29/25 11:34 JF Document 06/01/25 09:52 DL [id number] 06/01/25 10:02 DL 05/22/25 05/25/25 05/29/25 09:38 09:44 11:31 Wound Center Nurse 1 #1 L Med Ankle CLUSTER -Combined with other wound No -Current Size (cm) - Length 6 5.0 -Current Size (cm) - Width 1.8 1.8 -Current Size (cm) - Depth 0.1 0.2 -Total Square Cm 10.8 9.00 -Photo Taken Yes No -Epithelialization Small 1-33% -Tunneling No -Undermining/Tunneling No -Circular Undermining No -Exudate Amt Medium Small -Exudate Type Serosanguineous Serosanguineous -Wound Margin Thickened Flat & Intact -Granulation Amt Medium (34-66%) Large (67-100%) -Granulation Quality Red [place] -Slough/Fibrin Yes -Necrosis Amt Medium (34-66%) Small (1-33%) -Necrotic Tissue Type Adherent Slough Adherent Slough -Structure Exposed N/A N/A -Texture (Megan-wound Skin Appearance) Scarring Assessed, Localized Edema -Moisture (Megan-wound Skin Appearance) No Abnormality Assessed,Dry/ Scaly -Color (Megan-wound Skin Appearance) No Abnormality Assessed, Hemosiderin Staining -Temperature (Megan-wound Skin No Abnormality No Abnormality Appearance) (Pt Warm) (Pt Warm) -Tenderness on Palpation (Megan-wound No Skin Appearance) -Ulcer Cleansing Soap and Water DAKIN'S -Foul Odor after Cleansing No No -Anesthetic Used 5% Lidocaine Gel Lower Limb Edema Present NA Yes Left Calf (cm) 37.2 Left Ankle (cm) 38.9 06/01/25 09:52 Wound Center Nurse 1 #1 L Med Ankle CLUSTER -Combined with other wound -Current Size (cm) - Length 4 -Current Size (cm) - Width 1.3 -Current Size (cm) - Depth 0.1 -Total Square Cm 5.2 -Photo Taken Yes -Epithelialization -Tunneling -Undermining/Tunneling -Circular Undermining -Exudate Amt Medium -Exudate Type Serosanguineous -Wound Margin Distinct, Outline Attached -Granulation Amt Large (67-100%) -Granulation Quality [place] -Slough/Fibrin -Necrosis Amt Small (1-33%) -Necrotic Tissue Type Adherent Slough -Structure Exposed N/A -Texture (Megan-wound Skin Appearance) Scarring -Moisture (Megan-wound Skin Appearance) Dry/Scaly -Color (Megan-wound Skin Appearance) Hemosiderin Staining -Temperature (Megan-wound Skin No Abnormality Appearance) (Pt Warm) -Tenderness on Palpation (Megan-wound No Skin Appearance) -Ulcer Cleansing Soap and Water -Foul Odor after Cleansing No -Anesthetic Used 5% Lidocaine Gel Lower Limb Edema Present Left Calf (cm) Left Ankle (cm) WC - Nurse 2 - General Ulcer CM Notes Start: 05/22/25 09:37 Freq: Status: Active Protocol: Activity Type Activity Date Activity User E-sign Co-sign Detail Recorded Client Recorded Date Recorded By Document 05/25/25 10:32 DS [id number] 05/25/25 10:34 DS Document 06/01/25 10:08 [facility] [id number] 06/01/25 10:19 BMF 05/25/25 06/01/25 10:32 10:08 Wound Center Nurse 2 #1 L Med Ankle CLUSTER -Time 10:33 10:08 -Correct Patient Yes Yes -Correct Side, Site, Position Yes Yes -Correct Procedure Yes Yes -Procedure Performed Yes Yes -Type of Procedure Debridement Debridement -Clinical Debridement Subcutaneous Subcutaneous -Tissue Removed Subcutaneous Subcutaneous -Post Debridement (cm) - Length 4.5 4.9 -Post Debridement (cm) - Width 2.2 2 -Post Debridement (cm) - Depth 0.1 0.1 -Total Square (Post) (cm) 9.90 9.8 -Area of Debridement (cm) - Length 4.5 4.9 -Area of Debridement (cm) - Width 2.2 2 -Total Square (Area) (cm) 9.90 9.8 -Tunneling No No -Undermining/Tunneling No No -Circular Undermining No No -Wound/Ulcer Outcome Not Healed Not Healed -Ulcer Cleansing Rinsed/ Rinsed/ Irrigated with Irrigated with Saline Saline -Foul Odor after Cleansing No No -Bioengineered Tissue No Yes -Type of Bioengineered Tissue Epifix Mesh -Expiration Date 10/19/29 -Product Lot Number [id number] -Percent Used 100 -Lot number of Saline Used [id number] -Bleeding Controlled with Pressure Pressure -Treatment Response Procedure Procedure Tolerated Well Tolerated Well -Debridement - Subq, 1st 20sq cm Yes No -Apply Skin Sub - 1st 25 sq cm - Legs 1 -Epifix Mesh Application 1-4 (per sq 11 cm) Pain Scale: 0-10 Numeric Is Patient Pain Free? Yes Yes - Nurse 3 - General Ulcer D/C NN Start: 05/22/25 09:37 Freq: Status: Active Protocol: Activity Type Activity Date Activity User E-sign Co-sign Detail Recorded Client Recorded Date Recorded By Document 05/22/25 09:38 JF [id number] 05/22/25 09:39 JF Document 05/25/25 10:58 DL [id number] 05/25/25 11:00 DL Document 05/29/25 11:31 JF [id number] 05/29/25 11:34 JF Document 06/01/25 10:29 MT [id number] 06/01/25 10:37 WI 08/0405/25/25 05/29/25 09:38 10:58 11:31 Pain Scale: 0-10 Numeric Is Patient Pain Free? Yes Yes Yes Wound Care Center Nurse 3 #1 L Med Ankle CLUSTER -Ulcer Cleansing Rinsed/ dakins Irrigated with Saline -Foul Odor after Cleansing No -Negative Pressure Wound Therapy -Foam Supply Charges Patient Supplied Dressing -Primary Dressing Applied Aquacel Extra, NonAdherent Contact Layer, Promogran Abran Matter -Other Dressing Unna ABRAN/ADAPTIC AND AQUACEL EXTRA -Primary Dressing Covered/Secured with Dry Gauze & Dry Gauze Roll Gauze -Aquacel Extra 1 -Promogran Abran Matter 1 -Wound Comment(s) use patient's own supply of abran and aqaucel extra LLE -Multi-Layered Wrap Application Unna Boot - Unna Boot - Unna Boot - Left Left Left -Size of Tubigrip Used -Stockings -Unna- Left (Qty applied) 1 1 1 Treatment Response Procedure Tolerated Well WC - Visit Discharge Discharge Condition Stable Stable Stable Ambulatory Status Ambulatory Ambulatory Ambulatory Transportation Private Auto Private Auto Private Auto Medication Reconcilliation completed & Yes Yes provided to patient/care provider Clinical Summary of Care Provided Yes Yes Notes: 06/01/25 10:29 Pain Scale: 0-10 Numeric Is Patient Pain Free? Yes Wound Care Center Nurse 3 #1 L Med Ankle CLUSTER -Ulcer Cleansing -Foul Odor after Cleansing No -Negative Pressure Wound Therapy N/A -Foam Supply Charges -Primary Dressing Applied Aquacel Extra -Other Dressing -Primary Dressing Covered/Secured with Dry Gauze,Dry Gauze & Roll Gauze,Secured with Tape -Aquacel Extra 1 -Promogran Abran Matter -Wound Comment(s) LLE -Multi-Layered Wrap Application -Size of Tubigrip Used Size D -Stockings No -Unna- Left (Qty applied) Treatment Response WC - Visit Discharge Discharge Condition Stable Ambulatory Status Ambulatory Transportation Private Auto Medication Reconcilliation completed & No provided to patient/care provider Clinical Summary of Care Provided Yes Notes: explained the new wound orders to the patient. the pt seemed very confused about dressing change if it get soiled. i went over the new orders line by line with the pt. i also instructed the pt to call if he had any issues. Assessment/Plan Assessment/Plan (1) Non-pressure chronic ulcer of left calf with fat layer exposed: CODE(S): L97.222 - Non-pressure chronic ulcer of left calf with fat layer exposed (2) Cellulitis of left lower limb: CODE(S): L03.116 - Cellulitis of left lower limb (3) Venous insufficiency (chronic) (peripheral): CODE(S): I87.2 - Venous insufficiency (chronic) (peripheral) (4) Bilateral lower extremity edema: CODE(S): R60.0 - Localized edema (5) 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: CODE(S): I83.003 - Varicose veins of unspecified lower extremity with ulcer of ankle; L97.302 - Non-pressure chronic ulcer of unspecified ankle with fat layer exposed QUALIFIERS: Varicose vein presence: with varicose veins Laterality: left Qualified Code(s): I83.023 - Varicose veins of left lower extremity with ulcer of ankle; L97.322 - Non-pressure chronic ulcer of left ankle with fat layer exposed PLAN: Plan Patient seen and evaluated Predebridement measurement 4.8 cm x 1.9 cm x 0.1 cm Postdebridement measurement 4.9 cm x 2.0 cm x 0.1 cm Ulceration site did undergo debridement as noted in the clinical panel above. Localized erythema from previous visit has improved on oral antibiotic and Dakin's wash. Following debridement, EpiFix graft #1 ([id number]) was applied to the ulcerative bed. No signs of infection or ulcerative bed at graft placement. Site was then dressed with wound veil and anchored with Steri-Strips. Aquacel extra applied over graft site and dressed with dry sterile dressing. Double Tubigrip stocking applied for compression. There is increase in size of ulceration in terms of length but improvement in width versus previous visit despite improvement in edema due to continued prolonged standing continued serous drainage post procedure. Swab culture was obtained of the site 05/18/2025. Results demonstrate strep agalactiae and Serratia marcescens. Due to positive cultures following his Dakin's wash he was prescribed doxycycline 100 mg twice daily x 14 days and ciprofloxacin 500 mg twice daily x 14 days (stop date 06/08/2025). There has been improvement in the appearance of the wound and he will finish antibiotic to completion. Stat Doppler for 02/16/2025 was negative for DVT. He did undergo repeat venous study 03/14/25 and underwent venous ablation on April 13. He was again instructed on continued elevation of the lower extremities to aid in edema control. Following healing of ulcerative site he will return to compression stockings however this time we will increase from 20 to 30 mmHg to 30 to 40 mmHg versus application of juxta lite compression. Juxta lite compression wrap was applied for 02/16/2025, awaiting approval. He has been approved for advanced wound care product, EpiFix for application. He is following with Dr. Mckee for procedure to aid in his venous insufficiency. Procedure performed 04/13/25. Recent visit with Dr. Mckee 04/26/2025. Discussed continued diet to aid in healing with adequate protein intake. Discussed signs and symptoms of infection. Discussed if he notices any increas ing redness around the ulcerative site that is moved up the leg, purulent drainage from the ulcerative site, increasing foul odor from the ulcerative site, or if he develops fever greater than 101 degree accompanied by nausea, vomiting, chills of these are signs of a progressing infection and he should report to the ED for IV antibiotics and further evaluation. He is understanding of this today. The following work up and care recommendations were made: Dressing: EpiFix, wound veil, Steri-Strips, Aquacel extra, dry sterile dressing, Tubigrip compression. He will change outer dressing as needed. Will continue compression stocking to right lower extremity Wash: Do not get wet left lower extremity Tissue growth optimization: EpiFix Offload: Tubigrip compression Vascular: Does have history of positive venous insufficiency/reflux. Underwent procedure 04/13/2025 as above. Edema: Tubigrip compression and elevation of the lower extremities Infection: No signs of infection Pain: May take [id number] Tylenol Extra Strength for discomfort Host factors: Chronic venous insufficiency, chronic lower extremity edema, prolonged standing/activity, advanced age complicate healing. I answered all the patient's questions. To return to the wound healing center in 1 week or call sooner if the patient has any questions or concerns.
--- NOTE | 2025-06-01 13:33 | PN.PCM_ITS ---
History of Present Illness Date of Service: 06/01/25 Chief Complaint: Left medial ankle wound History of Wound: The patient is seen today as a courtesy visit for Dr. Merrill Burns, the patient's regular Wound Center provider. The patient's medical history is as recently documented below. Patient is a 79-year-old male who presents to the wound care center with recurring left lower extremity medial ankle wound. He has PMHx of recurring left lower extremity ulceration secondary to chronic venous insufficiency, history of DVT, obesity, JOSHUA, iron deficient anemia, delayed wound healing, and asthma. He states that he does have compression stockings and continues to wear them. He had been following in the wound care center for a deep ulceration to the medial aspect of the left lower extremity overlying the neurovascular bundle. He did go on to heal this ulceration as of 12/31/[address] Mckee for venogram. He has continued wearing compression stockings however states that while in the shower he did notice a scab of the left medial ankle and after showering applied antibiotic ointment and Band-Aid which later then the scab became soft and opened a small wound. He states that he did see his PCP who did obtain cultures and placed him on oral antibiotic. He was then referred to the wound care center for further follow-up. He denies any further trauma to the site. States that the specific site is recurrent with breakdown of skin. Denies N/V/F/chills. No further complaints. Subjective Subjective This is a 80-year-old male who returns to the wound care center for continued follow-up of a chronic venous stasis/insufficiency ulceration at the medial aspect of the left lower extremity. He underwent vascular procedure with Dr. Mckee on 04/13/25. Had recent follow-up with vascular on 04/26/2025. Was placed in unna boot compression in addition to being placed on lasix for one week with improvement noted in edema. Edema secondary to his previous procedure has improved but drainage still remains due to patient long duration on his feet. States he does not sit often. Continues to try to elevating his legs higher than what he previously had been when he does sit. Reports improvement in redness and tenderness around the wound site with taking oral antibiotic. Still continues standing for long periods of time performing woodworking in his garage. He denies constitutional symptoms. Denies further complaints. Objective Data Objective Data Vital Signs: Vital Signs Temp Pulse Resp BP 96.7 F L 60 18 119/71 06/01/25 09:52 06/01/25 09:52 06/01/25 09:52 06/01/25 09:52 Physical Exam Const alert, oriented x3 and no apparent distress General Appearance: cooperative HEENT normocephalic Eyes General Eye: normal appearance of both eyes Neck General: normal visual inspection Lymph Lymphatic: no lymphadenopathy noted and no lymphedema noted Resp normal respiratory effort Cardio regular rate and regular rhythm Extremity no calf tenderness Extremity Narrative: Left lower extremity: Vascular: DP and PT pulses weakly palpable. Capillary fill time to digits is 5 seconds. Normal temperature gradient. There is absent hair growth to digits noted. Dermatological: There is a full-thickness ulceration noted to the medial aspect of the lower extremity/ankle with mixed fibro granular layer. Negative Stemmer sign left foot. There is evidence of stasis dermatitis with hyperpigmentation/hemosiderin deposition/staining of skin left lower extremity. There are varicosities noted of the lower extremity with mild lower extremity edema. There is no erythema or rubor of the left lower extremity. Does have increased edema secondary to his vascular procedure. Musculoskeletal: Muscle strength 5 of 5 age-appropriate. There is decreased range of motion of the ankle joint dorsiflexion with knee extended without pain or crepitus. Decreased range of motion of the STJ, MTJ, and first MTPJ without pain or crepitus. No pain to palpation of calf. Skin no rashes or lesions noted General Skin Exam: venous stasis and dermatitis Neuro moves all extremities Debridement Note Debridement Note Wound debrided: Left lower extremity Laterality: Left Wound Grade/Stage: Cisneros stage I Type of Debridement: Excisional debridement Anesthesia Used: 5% Lidocaine Gel Depth: Down to and including healthy tissue and in the subcutaneous layer Percentage of wound debrided: 100 Instrument Used: 5mm curette Tissue Removed: Fibrous, devitalized subcutaneous, biofilm, slough Severity: Fat Layer Exposed Amount of bleeding with debridement: Mild Bleeding Controlled with: Compression and gauze Patient tolerated procedure: Patient tolerated procedure well Post-Debridement Measurements and Additional Note: Post-Debridement Measurements/Treatment LA NENA - Nurse 1 - General Ulcer Assessment Start: 05/22/25 09:37 Freq: Status: Active Protocol: ANAYA Activity Type Activity Date Activity User E-sign Co-sign Detail Recorded Client Recorded Date Recorded By Document 05/22/25 09:38 JF [id number] 05/22/25 09:39 JF Document 05/25/25 09:44 DL [id number] 05/25/25 09:52 DL Document 05/29/25 11:31 JF [id number] 05/29/25 11:34 JF Document 06/01/25 09:52 DL [id number] 06/01/25 10:02 DL 05/22/25 05/25/25 05/29/25 09:38 09:44 11:31 - Today's Visit Information Type of service Nurse-only Follow-up Visit Nurse-only Visit (Physician/ECHO TECH Visit ) Arrival Mode Ambulatory Ambulatory Ambulatory Transfer Assistance Manual Patient Identification Verified (Name & No Yes Yes ) Patient Requires Transmission-Based No No Precautions Vital Signs Temperature (97.8 F-99.1 F) 96.7 F L 96.9 F L 97.6 F L Temperature Source Temporal Temporal Temporal Pulse Rate (60-100) 70 65 66 Pulse Location Monitor Monitor Monitor Respiratory Rate (12-18) 16 18 18 Respiratory rate source Observation Observation Observation Blood Pressure (90/60-120/80) 118/57 L 133/74 H 118/80 Blood Pressure Mean (mm Hg) 77 93 92 Source Monitor Monitor Monitor Position Sitting Semi-Fowlers Blood Pressure Location Left Arm Left Arm History Since Last Visit- (Skip if this is Patient's initial visit) Have you changed medications since your No last visit? Any new allergies or adverse reactions No Had a fall/change in ADL's that may No increase risk of falls Signs or symptoms of abuse and/or No neglect since last visit Have you been in the hospital since your No last visit? Has dressing in place as prescribed Yes Has compression in place as prescribed Yes Has offloadiing in place as prescribed N/A Experienced any changes in pain level or No management Left Footwear Regular Shoe Right Footwear Regular Shoe Pain Scale: 0-10 Numeric Is Patient Pain Free? Yes Yes Yes 06/01/25 09:52 - Today's Visit Information Type of service Follow-up Visit (Physician/ECHO TECH ) Arrival Mode Ambulatory Transfer Assistance None Patient Identification Verified (Name & Yes ) Patient Requires Transmission-Based No Precautions Vital Signs Temperature (97.8 F-99.1 F) 96.7 F L Temperature Source Temporal Pulse Rate (60-100) 60 Pulse Location Monitor Respiratory Rate (12-18) 18 Respiratory rate source Observation Blood Pressure (90/60-120/80) 119/71 Blood Pressure Mean (mm Hg) 87 Source Monitor Position Blood Pressure Location History Since Last Visit- (Skip if this is Patient's initial visit) Have you changed medications since your No last visit? Any new allergies or adverse reactions No Had a fall/change in ADL's that may No increase risk of falls Signs or symptoms of abuse and/or No neglect since last visit Have you been in the hospital since your No last visit? Has dressing in place as prescribed Yes Has compression in place as prescribed Yes Has offloadiing in place as prescribed Yes Experienced any changes in pain level or No management Left Footwear Right Footwear Pain Scale: 0-10 Numeric Is Patient Pain Free? Yes WC - Nurse 1 - General Ulcer Measurement Start: 05/22/25 09:37 Freq: Status: Active Protocol: Activity Type Activity Date Activity User E-sign Co-sign Detail Recorded Client Recorded Date Recorded By Document 05/22/25 09:38 [id number] 05/22/25 09:39 JF Document 05/25/25 09:44 DL [id number] 05/25/25 09:52 DL Document 05/29/25 11:31 JF [id number] 05/29/25 11:34 JF Document 06/01/25 09:52 DL [id number] 06/01/25 10:02 DL 05/22/25 05/25/25 05/29/25 09:38 09:44 11:31 Wound Center Nurse 1 #1 L Med Ankle CLUSTER -Combined with other wound No -Current Size (cm) - Length 6 5.0 -Current Size (cm) - Width 1.8 1.8 -Current Size (cm) - Depth 0.1 0.2 -Total Square Cm 10.8 9.00 -Photo Taken Yes No -Epithelialization Small 1-33% -Tunneling No -Undermining/Tunneling No -Circular Undermining No -Exudate Amt Medium Small -Exudate Type Serosanguineous Serosanguineous -Wound Margin Thickened Flat & Intact -Granulation Amt Medium (34-66%) Large (67-100%) -Granulation Quality Red Sarah Ann -Slough/Fibrin Yes -Necrosis Amt Medium (34-66%) Small (1-33%) -Necrotic Tissue Type Adherent Slough Adherent Slough -Structure Exposed N/A N/A -Texture (Megan-wound Skin Appearance) Scarring Assessed, Localized Edema -Moisture (Megan-wound Skin Appearance) No Abnormality Assessed,Dry/ Scaly -Color (Megan-wound Skin Appearance) No Abnormality Assessed, Hemosiderin Staining -Temperature (Megan-wound Skin No Abnormality No Abnormality Appearance) (Pt Warm) (Pt Warm) -Tenderness on Palpation (Megan-wound No Skin Appearance) -Ulcer Cleansing Soap and Water DAKIN'S -Foul Odor after Cleansing No No -Anesthetic Used 5% Lidocaine Gel Lower Limb Edema Present NA Yes Left Calf (cm) 37.2 Left Ankle (cm) 38.9 06/01/25 09:52 Wound Center Nurse 1 #1 L Med Ankle CLUSTER -Combined with other wound -Current Size (cm) - Length 4 -Current Size (cm) - Width 1.3 -Current Size (cm) - Depth 0.1 -Total Square Cm 5.2 -Photo Taken Yes -Epithelialization -Tunneling -Undermining/Tunneling -Circular Undermining -Exudate Amt Medium -Exudate Type Serosanguineous -Wound Margin Distinct, Outline Attached -Granulation Amt Large (67-100%) -Granulation Quality Sarah Ann -Slough/Fibrin -Necrosis Amt Small (1-33%) -Necrotic Tissue Type Adherent Slough -Structure Exposed N/A -Texture (Megan-wound Skin Appearance) Scarring -Moisture (Megan-wound Skin Appearance) Dry/Scaly -Color (Megan-wound Skin Appearance) Hemosiderin Staining -Temperature (Megan-wound Skin No Abnormality Appearance) (Pt Warm) -Tenderness on Palpation (Megan-wound No Skin Appearance) -Ulcer Cleansing Soap and Water -Foul Odor after Cleansing No -Anesthetic Used 5% Lidocaine Gel Lower Limb Edema Present Left Calf (cm) Left Ankle (cm) WC - Nurse 2 - General Ulcer CM Notes Start: 05/22/25 09:37 Freq: Status: Active Protocol: Activity Type Activity Date Activity User E-sign Co-sign Detail Recorded Client Recorded Date Recorded By Document 05/25/25 10:32 DS [id number] 05/25/25 10:34 DS Document 06/01/25 10:08 [facility] [id number] 06/01/25 10:19 BMF 05/25/25 06/01/25 10:32 10:08 Wound Center Nurse 2 #1 L Med Ankle CLUSTER -Time 10:33 10:08 -Correct Patient Yes Yes -Correct Side, Site, Position Yes Yes -Correct Procedure Yes Yes -Procedure Performed Yes Yes -Type of Procedure Debridement Debridement -Clinical Debridement Subcutaneous Subcutaneous -Tissue Removed Subcutaneous Subcutaneous -Post Debridement (cm) - Length 4.5 4.9 -Post Debridement (cm) - Width 2.2 2 -Post Debridement (cm) - Depth 0.1 0.1 -Total Square (Post) (cm) 9.90 9.8 -Area of Debridement (cm) - Length 4.5 4.9 -Area of Debridement (cm) - Width 2.2 2 -Total Square (Area) (cm) 9.90 9.8 -Tunneling No No -Undermining/Tunneling No No -Circular Undermining No No -Wound/Ulcer Outcome Not Healed Not Healed -Ulcer Cleansing Rinsed/ Rinsed/ Irrigated with Irrigated with Saline Saline -Foul Odor after Cleansing No No -Bioengineered Tissue No Yes -Type of Bioengineered Tissue Epifix Mesh -Expiration Date 10/19/29 -Product Lot Number [id number] -Percent Used 100 -Lot number of Saline Used [id number] -Bleeding Controlled with Pressure Pressure -Treatment Response Procedure Procedure Tolerated Well Tolerated Well -Debridement - Subq, 1st 20sq cm Yes No -Apply Skin Sub - 1st 25 sq cm - Legs 1 -Epifix Mesh Application 1-4 (per sq 11 cm) Pain Scale: 0-10 Numeric Is Patient Pain Free? Yes Yes - Nurse 3 - General Ulcer D/C NN Start: 05/22/25 09:37 Freq: Status: Active Protocol: Activity Type Activity Date Activity User E-sign Co-sign Detail Recorded Client Recorded Date Recorded By Document 05/22/25 09:38 JF [id number] 05/22/25 09:39 JF Document 05/25/25 10:58 DL [id number] 05/25/25 11:00 DL Document 05/29/25 11:31 JF [id number] 05/29/25 11:34 JF Document 06/01/25 10:29 MT [id number] 06/01/25 10:37 KS 08/0405/25/25 05/29/25 09:38 10:58 11:31 Pain Scale: 0-10 Numeric Is Patient Pain Free? Yes Yes Yes Wound Care Center Nurse 3 #1 L Med Ankle CLUSTER -Ulcer Cleansing Rinsed/ dakins Irrigated with Saline -Foul Odor after Cleansing No -Negative Pressure Wound Therapy -Foam Supply Charges Patient Supplied Dressing -Primary Dressing Applied Aquacel Extra, NonAdherent Contact Layer, Promogran Abran Matter -Other Dressing Unna ABRAN/ADAPTIC AND AQUACEL EXTRA -Primary Dressing Covered/Secured with Dry Gauze & Dry Gauze Roll Gauze -Aquacel Extra 1 -Promogran Abran Matter 1 -Wound Comment(s) use patient's own supply of abran and aqaucel extra LLE -Multi-Layered Wrap Application Unna Boot - Unna Boot - Unna Boot - Left Left Left -Size of Tubigrip Used -Stockings -Unna- Left (Qty applied) 1 1 1 Treatment Response Procedure Tolerated Well WC - Visit Discharge Discharge Condition Stable Stable Stable Ambulatory Status Ambulatory Ambulatory Ambulatory Transportation Private Auto Private Auto Private Auto Medication Reconcilliation completed & Yes Yes provided to patient/care provider Clinical Summary of Care Provided Yes Yes Notes: 06/01/25 10:29 Pain Scale: 0-10 Numeric Is Patient Pain Free? Yes Wound Care Center Nurse 3 #1 L Med Ankle CLUSTER -Ulcer Cleansing -Foul Odor after Cleansing No -Negative Pressure Wound Therapy N/A -Foam Supply Charges -Primary Dressing Applied Aquacel Extra -Other Dressing -Primary Dressing Covered/Secured with Dry Gauze,Dry Gauze & Roll Gauze,Secured with Tape -Aquacel Extra 1 -Promogran Abran Matter -Wound Comment(s) LLE -Multi-Layered Wrap Application -Size of Tubigrip Used Size D -Stockings No -Unna- Left (Qty applied) Treatment Response WC - Visit Discharge Discharge Condition Stable Ambulatory Status Ambulatory Transportation Private Auto Medication Reconcilliation completed & No provided to patient/care provider Clinical Summary of Care Provided Yes Notes: explained the new wound orders to the patient. the pt seemed very confused about dressing change if it get soiled. i went over the new orders line by line with the pt. i also instructed the pt to call if he had any issues. Assessment/Plan Assessment/Plan (1) Non-pressure chronic ulcer of left calf with fat layer exposed: CODE(S): L97.222 - Non-pressure chronic ulcer of left calf with fat layer exposed (2) Cellulitis of left lower limb: CODE(S): L03.116 - Cellulitis of left lower limb (3) Venous insufficiency (chronic) (peripheral): CODE(S): I87.2 - Venous insufficiency (chronic) (peripheral) (4) Bilateral lower extremity edema: CODE(S): R60.0 - Localized edema (5) 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: CODE(S): I83.003 - Varicose veins of unspecified lower extremity with ulcer of ankle; L97.302 - Non-pressure chronic ulcer of unspecified ankle with fat layer exposed QUALIFIERS: Varicose vein presence: with varicose veins Laterality: left Qualified Code(s): I83.023 - Varicose veins of left lower extremity with ulcer of ankle; L97.322 - Non-pressure chronic ulcer of left ankle with fat layer exposed PLAN: Plan Patient seen and evaluated Predebridement measurement 4.8 cm x 1.9 cm x 0.1 cm Postdebridement measurement 4.9 cm x 2.0 cm x 0.1 cm Ulceration site did undergo debridement as noted in the clinical panel above. Localized erythema from previous visit has improved on oral antibiotic and Dakin's wash. Following debridement, EpiFix graft #1 ([id number]) was applied to the ulcerative bed. No signs of infection or ulcerative bed at graft placement. Site was then dressed with wound veil and anchored with Steri-Strips. Aquacel extra applied over graft site and dressed with dry sterile dressing. Double Tubigrip stocking applied for compression. There is increase in size of ulceration in terms of length but improvement in width versus previous visit despite improvement in edema due to continued prolonged standing continued serous drainage post procedure. Swab culture was obtained of the site 05/18/2025. Results demonstrate strep agalactiae and Serratia marcescens. Due to positive cultures following his Dakin's wash he was prescribed doxycycline 100 mg twice daily x 14 days and ciprofloxacin 500 mg twice daily x 14 days (stop date 06/08/2025). There has been improvement in the appearance of the wound and he will finish antibiotic to completion. Stat Doppler for 02/16/2025 was negative for DVT. He did undergo repeat venous study 03/14/25 and underwent venous ablation on April 13. He was again instructed on continued elevation of the lower extremities to aid in edema control. Following healing of ulcerative site he will return to compression stockings however this time we will increase from 20 to 30 mmHg to 30 to 40 mmHg versus application of juxta lite compression. Juxta lite compression wrap was applied for 02/16/2025, awaiting approval. He has been approved for advanced wound care product, EpiFix for application. He is following with Dr. Mckee for procedure to aid in his venous insufficiency. Procedure performed 04/13/25. Recent visit with Dr. Mckee 04/26/2025. Discussed continued diet to aid in healing with adequate protein intake. Discussed signs and symptoms of infection. Discussed if he notices any increas ing redness around the ulcerative site that is moved up the leg, purulent drainage from the ulcerative site, increasing foul odor from the ulcerative site, or if he develops fever greater than 101 degree accompanied by nausea, vomiting, chills of these are signs of a progressing infection and he should report to the ED for IV antibiotics and further evaluation. He is understanding of this today. The following work up and care recommendations were made: Dressing: EpiFix, wound veil, Steri-Strips, Aquacel extra, dry sterile dressing, Tubigrip compression. He will change outer dressing as needed. Will continue compression stocking to right lower extremity Wash: Do not get wet left lower extremity Tissue growth optimization: EpiFix Offload: Tubigrip compression Vascular: Does have history of positive venous insufficiency/reflux. Underwent procedure 04/13/2025 as above. Edema: Tubigrip compression and elevation of the lower extremities Infection: No signs of infection Pain: May take [id number] Tylenol Extra Strength for discomfort Host factors: Chronic venous insufficiency, chronic lower extremity edema, prolonged standing/activity, advanced age complicate healing. I answered all the patient's questions. To return to the wound healing center in 1 week or call sooner if the patient has any questions or concerns.
[2025-06-08 09:33] VITALS: BP 141/74; PULSE 66; RESP 18; TEMP 35.7
--- NOTE | 2025-06-08 11:45 | PCM.WC.PN ---
History of Present Illness Date of Service: 06/08/25 Chief Complaint: Left medial ankle wound History of Wound: The patient is seen today as a courtesy visit for Dr. Merrill Burns, the patient's regular Wound Center provider. The patient's medical history is as recently documented below. Patient is a 79-year-old male who presents to the wound care center with recurring left lower extremity medial ankle wound. He has PMHx of recurring left lower extremity ulceration secondary to chronic venous insufficiency, history of DVT, obesity, JOSHUA, iron deficient anemia, delayed wound healing, and asthma. He states that he does have compression stockings and continues to wear them. He had been following in the wound care center for a deep ulceration to the medial aspect of the left lower extremity overlying the neurovascular bundle. He did go on to heal this ulceration as of 12/31/[address] Mckee for venogram. He has continued wearing compression stockings however states that while in the shower he did notice a scab of the left medial ankle and after showering applied antibiotic ointment and Band-Aid which later then the scab became soft and opened a small wound. He states that he did see his PCP who did obtain cultures and placed him on oral antibiotic. He was then referred to the wound care center for further follow-up. He denies any further trauma to the site. States that the specific site is recurrent with breakdown of skin. Denies N/V/F/chills. No further complaints. Subjective Subjective This is a 80-year-old male who returns to the wound care center for continued follow-up of a chronic venous stasis/insufficiency ulceration at the medial aspect of the left lower extremity. He underwent vascular procedure with Dr. Mckee on 04/13/25. Had recent follow-up with vascular on 04/26/2025. Was placed in unna boot compression in addition to being placed on lasix for one week with improvement noted in edema. Has since continued Lasix with edema now controlled. Edema has improved and drainage also improved. States he does not sit often. Continues to try to elevating his legs higher than what he previously had been when he does sit. Continues oral antibiotic and state site is looking better and feeling better. Still continues standing for long periods of time performing woodworking in his garage. He denies constitutional symptoms. Denies further complaints. Objective Data Objective Data Vital Signs: Vital Signs Temp Pulse Resp BP O2 Del Method 96.3 F L 66 18 141/74 H Room Air 06/08/25 09:33 06/08/25 09:33 06/08/25 09:33 06/08/25 09:33 06/08/25 09:33 Oxygen Delivery Method Room Air Physical Exam Const alert, oriented x3 and no apparent distress General Appearance: cooperative HEENT normocephalic Eyes General Eye: normal appearance of both eyes Neck General: normal visual inspection Lymph Lymphatic: no lymphadenopathy noted and no lymphedema noted Resp normal respiratory effort Cardio regular rate and regular rhythm Extremity no calf tenderness Extremity Narrative: Left lower extremity: Vascular: DP and PT pulses weakly palpable. Capillary fill time to digits is 5 seconds. Normal temperature gradient. There is absent hair growth to digits noted. Dermatological: There is a full-thickness ulceration noted to the medial aspect of the lower extremity/ankle with mixed fibro granular layer. Negative Stemmer sign left foot. There is evidence of stasis dermatitis with hyperpigmentation/hemosiderin deposition/staining of skin left lower extremity. There are varicosities noted of the lower extremity with mild lower extremity edema. There is no erythema or rubor of the left lower extremity. Does have increased edema secondary to his vascular procedure. Musculoskeletal: Muscle strength 5 of 5 age-appropriate. There is decreased range of motion of the ankle joint dorsiflexion with knee extended without pain or crepitus. Decreased range of motion of the STJ, MTJ, and first MTPJ without pain or crepitus. No pain to palpation of calf. Skin no rashes or lesions noted General Skin Exam: venous stasis and dermatitis Neuro moves all extremities Debridement Note Debridement Note Wound debrided: Left medial ankle Laterality: Left Wound Grade/Stage: Cisneros stage I Type of Debridement: Excisional debridement Anesthesia Used: 5% Lidocaine Gel Depth: Down to and including healthy tissue and in the subcutaneous layer Percentage of wound debrided: 100 Instrument Used: 5mm curette Tissue Removed: Fibrous, devitalized subcutaneous, biofilm, slough Severity: Fat Layer Exposed Amount of bleeding with debridement: Mild Bleeding Controlled with: Compression and gauze Patient tolerated procedure: Patient tolerated procedure well Post-Debridement Measurements and Additional Note: Post-Debridement Measurements/Treatment LA NENA - Nurse 1 - General Ulcer Assessment Start: 05/22/25 09:37 Freq: Status: Active Protocol: LOWEXT Activity Type Activity Date Activity User E-sign Co-sign Detail Recorded Client Recorded Date Recorded By Document 05/22/25 09:38 JF [id number] 05/22/25 09:39 JF Document 05/25/25 09:44 DL [id number] 05/25/25 09:52 DL Document 05/29/25 11:31 JF [id number] 05/29/25 11:34 JF Document 06/01/25 09:52 DL [id number] 06/01/25 10:02 DL Document 06/08/25 09:33 KW [id number] 06/08/25 09:42 KW 05/22/25 05/25/25 05/29/25 09:38 09:44 11:31 - Today's Visit Information Type of service Nurse-only Follow-up Visit Nurse-only Visit (Physician/ELECTRONICS DETAIL DRAFTSPERSON Visit ) Arrival Mode Ambulatory Ambulatory Ambulatory Transfer Assistance Manual Patient Identification Verified (Name & No Yes Yes ) Patient Requires Transmission-Based No No Precautions Vital Signs Temperature (97.8 F-99.1 F) 96.7 F L 96.9 F L 97.6 F L Temperature Source Temporal Temporal Temporal Pulse Rate (60-100) 70 65 66 Pulse Location Monitor Monitor Monitor Respiratory Rate (12-18) 16 18 18 Respiratory rate source Observation Observation Observation Oxygen Delivery Method Blood Pressure (90/60-120/80) 118/57 L 133/74 H 118/80 Blood Pressure Mean (mm Hg) 77 93 92 Source Monitor Monitor Monitor Position Sitting Semi-Fowlers Blood Pressure Location Left Arm Left Arm History Since Last Visit- (Skip if this is Patient's initial visit) Have you changed medications since your No last visit? Any new allergies or adverse reactions No Had a fall/change in ADL's that may No increase risk of falls Signs or symptoms of abuse and/or No neglect since last visit Have you been in the hospital since your No last visit? Has dressing in place as prescribed Yes Has compression in place as prescribed Yes Has offloadiing in place as prescribed N/A Experienced any changes in pain level or No management Left Footwear Regular Shoe Right Footwear Regular Shoe Pain Scale: 0-10 Numeric Is Patient Pain Free? Yes Yes Yes 06/01/25 06/08/25 09:52 09:33 - Today's Visit Information Type of service Follow-up Visit Follow-up Visit (Physician/ELECTRONICS DETAIL DRAFTSPERSON (Physician/ELECTRONICS DETAIL DRAFTSPERSON ) ) Arrival Mode Ambulatory Ambulatory Transfer Assistance None Patient Identification Verified (Name & Yes Yes ) Patient Requires Transmission-Based No Precautions Vital Signs Temperature (97.8 F-99.1 F) 96.7 F L 96.3 F L Temperature Source Temporal Temporal Pulse Rate (60-100) 60 66 Pulse Location Monitor Monitor Respiratory Rate (12-18) 18 18 Respiratory rate source Observation Observation Oxygen Delivery Method Room Air Blood Pressure (90/60-120/80) 119/71 141/74 H Blood Pressure Mean (mm Hg) 87 96 Source Monitor Monitor Position Semi-Fowlers Blood Pressure Location Right Arm History Since Last Visit- (Skip if this is Patient's initial visit) Have you changed medications since your No No last visit? Any new allergies or adverse reactions No No Had a fall/change in ADL's that may No No increase risk of falls Signs or symptoms of abuse and/or No No neglect since last visit Have you been in the hospital since your No No last visit? Has dressing in place as prescribed Yes Yes Has compression in place as prescribed Yes Yes Has offloadiing in place as prescribed Yes N/A Experienced any changes in pain level or No No management Left Footwear Regular Shoe Right Footwear Regular Shoe Pain Scale: 0-10 Numeric Is Patient Pain Free? Yes Yes WC - Nurse 1 - General Ulcer Measurement Start: 05/22/25 09:37 Freq: Status: Active Protocol: Activity Type Activity Date Activity User E-sign Co-sign Detail Recorded Client Recorded Date Recorded By Document 05/22/25 09:38 JF [id number] 05/22/25 09:39 JF Document 05/25/25 09:44 DL [id number] 05/25/25 09:52 DL Document 05/29/25 11:31 JF [id number] 05/29/25 11:34 JF Document 06/01/25 09:52 DL [id number] 06/01/25 10:02 DL Document 06/08/25 09:33 KW [id number] 06/08/25 09:42 KW 05/22/25 05/25/25 05/29/25 09:38 09:44 11:31 Wound Center Nurse 1 #1 L Med Ankle CLUSTER -Combined with other wound No -Current Size (cm) - Length 6 5.0 -Current Size (cm) - Width 1.8 1.8 -Current Size (cm) - Depth 0.1 0.2 -Total Square Cm 10.8 9.00 -Date of Last Picture (Recall this field) -Photo Taken Yes No -Epithelialization Small 1-33% -Tunneling No -Undermining/Tunneling No -Circular Undermining No -Exudate Amt Medium Small -Exudate Type Serosanguineous Serosanguineous -Wound Margin Thickened Flat & Intact -Granulation Amt Medium (34-66%) Large (67-100%) -Granulation Quality Red [place] -Slough/Fibrin Yes -Necrosis Amt Medium (34-66%) Small (1-33%) -Necrotic Tissue Type Adherent Slough Adherent Slough -Structure Exposed N/A N/A -Texture (Megan-wound Skin Appearance) Scarring Assessed, Localized Edema -Moisture (Megan-wound Skin Appearance) No Abnormality Assessed,Dry/ Scaly -Color (Megan-wound Skin Appearance) No Abnormality Assessed, Hemosiderin Staining -Temperature (Megan-wound Skin No Abnormality No Abnormality Appearance) (Pt Warm) (Pt Warm) -Tenderness on Palpation (Megan-wound No Skin Appearance) -Ulcer Cleansing Soap and Water DAKIN'S -Foul Odor after Cleansing No No -Anesthetic Used 5% Lidocaine Gel Lower Limb Edema Present NA Yes Left Calf (cm) 37.2 Left Ankle (cm) 38.9 06/01/25 06/08/25 09:52 09:33 Wound Center Nurse 1 #1 L Med Ankle CLUSTER -Combined with other wound -Current Size (cm) - Length 4 2 -Current Size (cm) - Width 1.3 5.5 -Current Size (cm) - Depth 0.1 0.2 -Total Square Cm 5.2 11.0 -Date of Last Picture (Recall this 06/08/25 field) -Photo Taken Yes -Epithelialization -Tunneling -Undermining/Tunneling -Circular Undermining -Exudate Amt Medium Large -Exudate Type Serosanguineous Serosanguineous -Wound Margin Distinct, Distinct, Outline Outline Attached Attached -Granulation Amt Large (67-100%) Large (67-100%) -Granulation Quality [place] Red -Slough/Fibrin -Necrosis Amt Small (1-33%) Small (1-33%) -Necrotic Tissue Type Adherent Slough Adherent Slough -Structure Exposed N/A -Texture (Megan-wound Skin Appearance) Scarring Assessed -Moisture (Megan-wound Skin Appearance) Dry/Scaly Assessed, Maceration -Color (Megan-wound Skin Appearance) Hemosiderin Assessed, Staining Erythema -Temperature (Megan-wound Skin No Abnormality No Abnormality Appearance) (Pt Warm) (Pt Warm) -Tenderness on Palpation (Megan-wound No No Skin Appearance) -Ulcer Cleansing Soap and Water Soap and Water -Foul Odor after Cleansing No -Anesthetic Used 5% Lidocaine 5% Lidocaine Gel Gel Lower Limb Edema Present Left Calf (cm) 41.5 Left Ankle (cm) 22.7 WC - Nurse 2 - General Ulcer CM Notes Start: 05/22/25 09:37 Freq: Status: Active Protocol: Activity Type Activity Date Activity User E-sign Co-sign Detail Recorded Client Recorded Date Recorded By Document 05/25/25 10:32 DS [id number] 05/25/25 10:34 DS Document 06/01/25 10:08 [place] [id number] 06/01/25 10:19 BMF Document 06/08/25 10:08 [place] [id number] 06/08/25 10:17 BMF 05/25/25 06/01/25 06/08/25 10:32 10:08 10:08 Wound Center Nurse 2 #1 L Med Ankle CLUSTER -Time 10:33 10:08 10:08 -Correct Patient Yes Yes Yes -Correct Side, Site, Position Yes Yes Yes -Correct Procedure Yes Yes Yes -Procedure Performed Yes Yes Yes -Type of Procedure Debridement Debridement Debridement -Clinical Debridement Subcutaneous Subcutaneous Subcutaneous -Tissue Removed Subcutaneous Subcutaneous Subcutaneous -Post Debridement (cm) - Length 4.5 4.9 4.6 -Post Debridement (cm) - Width 2.2 2 1.9 -Post Debridement (cm) - Depth 0.1 0.1 0.1 -Total Square (Post) (cm) 9.90 9.8 8.74 -Area of Debridement (cm) - Length 4.5 4.9 4.6 -Area of Debridement (cm) - Width 2.2 2 1.9 -Total Square (Area) (cm) 9.90 9.8 8.74 -Tunneling No No No -Undermining/Tunneling No No No -Circular Undermining No No No -Wound/Ulcer Outcome Not Healed Not Healed Not Healed -Ulcer Cleansing Rinsed/ Rinsed/ Rinsed/ Irrigated with Irrigated with Irrigated with Saline Saline Saline -Foul Odor after Cleansing No No No -Bioengineered Tissue No Yes Yes -Type of Bioengineered Tissue Epifix Mesh Epifix Mesh -Expiration Date 10/19/29 10/19/29 -Product Lot Number [id number] -Percent Used 100 100 -Lot number of Saline Used [id number] -Bleeding Controlled with Pressure Pressure Pressure -Treatment Response Procedure Procedure Procedure Tolerated Well Tolerated Well Tolerated Well -Debridement - Subq, 1st 20sq cm Yes No No -Apply Skin Sub - 1st 25 sq cm - Legs 1 1 -Epifix Mesh Application 1-4 (per sq 11 11 cm) Pain Scale: 0-10 Numeric Is Patient Pain Free? Yes Yes Yes - Nurse 3 - General Ulcer D/C NN Start: 05/22/25 09:37 Freq: Status: Active Protocol: Activity Type Activity Date Activity User E-sign Co-sign Detail Recorded Client Recorded Date Recorded By Document 05/22/25 09:38 [id number] 05/22/25 09:39 Document 05/25/25 10:58 DL [id number] 05/25/25 11:00 DL Document 05/29/25 11:31 [id number] 05/29/25 11:34 Document 06/01/25 10:29 MT [id number] 06/01/25 10:37 MT Document 06/08/25 10:25 DL [id number] 06/08/25 10:27 DL 05/22/25 05/25/25 05/29/25 09:38 10:58 11:31 Pain Scale: 0-10 Numeric Is Patient Pain Free? Yes Yes Yes Wound Care Center Nurse 3 #1 L Med Ankle CLUSTER -Ulcer Cleansing Rinsed/ dakins Irrigated with Saline -Foul Odor after Cleansing No -Negative Pressure Wound Therapy -Foam Supply Charges Patient Supplied Dressing -Primary Dressing Applied Aquacel Extra, NonAdherent Contact Layer, Promogran Abran Matter -Other Dressing Unna ABRAN/ADAPTIC AND AQUACEL EXTRA -Primary Dressing Covered/Secured with Dry Gauze & Dry Gauze Roll Gauze -Aquacel Extra 1 -Promogran Abran Matter 1 -Wound Comment(s) use patient's own supply of abran and aqaucel extra LLE -Multi-Layered Wrap Application Unna Boot - Unna Boot - Unna Boot - Left Left Left -Tubular Bandage -Size of Tubigrip Used -Size D ($) -Stockings -Unna- Left (Qty applied) 1 1 1 Treatment Response Procedure Tolerated Well WC - Visit Discharge Discharge Condition Stable Stable Stable Ambulatory Status Ambulatory Ambulatory Ambulatory Transportation Private Auto Private Auto Private Auto Medication Reconcilliation completed & Yes Yes provided to patient/care provider Clinical Summary of Care Provided Yes Yes Notes: 06/01/25 06/08/25 10:29 10:25 Pain Scale: 0-10 Numeric Is Patient Pain Free? Yes Yes Wound Care Center Nurse 3 #1 L Med Ankle CLUSTER -Ulcer Cleansing -Foul Odor after Cleansing No No -Negative Pressure Wound Therapy N/A -Foam Supply Charges -Primary Dressing Applied Aquacel Extra -Other Dressing Aqaucel EX/ Epimesh -Primary Dressing Covered/Secured with Dry Gauze,Dry Dry Gauze & Gauze & Roll Roll Gauze, Gauze,Secured Secured with with Tape Tape -Aquacel Extra 1 -Promogran Abran Matter -Wound Comment(s) LLE -Multi-Layered Wrap Application -Tubular Bandage Double Layer -Size of Tubigrip Used Size D Size D -Size D ($) 2 -Stockings No -Unna- Left (Qty applied) Treatment Response WC - Visit Discharge Discharge Condition Stable Stable Ambulatory Status Ambulatory Ambulatory Transportation Private Auto Private Auto Medication Reconcilliation completed & No provided to patient/care provider Clinical Summary of Care Provided Yes Notes: explained the new wound orders to the patient. the pt seemed very confused about dressing change if it get soiled. i went over the new orders line by line with the pt. i also instructed the pt to call if he had any issues. Assessment/Plan Assessment/Plan (1) Non-pressure chronic ulcer of left calf with fat layer exposed: CODE(S): L97.222 - Non-pressure chronic ulcer of left calf with fat layer exposed (2) Cellulitis of left lower limb: CODE(S): L03.116 - Cellulitis of left lower limb (3) Venous insufficiency (chronic) (peripheral): CODE(S): I87.2 - Venous insufficiency (chronic) (peripheral) (4) Bilateral lower extremity edema: CODE(S): R60.0 - Localized edema (5) 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: CODE(S): I83.003 - Varicose veins of unspecified lower extremity with ulcer of ankle; L97.302 - Non-pressure chronic ulcer of unspecified ankle with fat layer exposed QUALIFIERS: Varicose vein presence: with varicose veins Laterality: left Qualified Code(s): I83.023 - Varicose veins of left lower extremity with ulcer of ankle; L97.322 - Non-pressure chronic ulcer of left ankle with fat layer exposed PLAN: Plan Patient seen and evaluated Predebridement measurement 4.5 cm x 1.8 cm x 0.1 cm Postdebridement measurement 4.6 cm x 1.9 cm x 0.1 cm Ulceration site did undergo debridement as noted in the clinical panel above. Localized erythema from previous visit has improved on oral antibiotic and Dakin's wash. Following debridement, EpiFix graft #2 ([id number]) was applied to the ulcerative bed. No signs of infection or ulcerative bed at graft placement. Site was then dressed with wound veil and anchored with Steri-Strips. Aquacel extra applied over graft site and dressed with dry sterile dressing. Double Tubigrip stocking applied for compression. There is decreased in size of ulceration in terms of length and width versus previous visit with edema also improved. Swab culture was obtained of the site 05/18/2025. Results demonstrate strep agalactiae and Serratia marcescens. Due to positive cultures following his Dakin's wash he was prescribed doxycycline 100 mg twice daily x 14 days and ciprofloxacin 500 mg twice daily x 14 days (stop date 06/08/2025). There has been improvement in the appearance of the wound and he will finish antibiotic to completion. Stat Doppler for 02/16/2025 was negative for DVT. He did undergo repeat venous study 03/14/25 and underwent venous ablation on April 13. He was again instructed on continued elevation of the lower extremities to aid in edema control. Following healing of ulcerative site he will return to compression stockings however this time we will increase from 20 to 30 mmHg to 30 to 40 mmHg versus application of juxta lite compression. Juxta lite compression wrap was applied for 02/16/2025, awaiting approval. He has been approved for advanced wound care product, EpiFix for application. He is following with Dr. Mckee for procedure to aid in his venous insufficiency. Procedure performed 04/13/25. Recent visit with Dr. Mckee 04/26/2025. Discussed continued diet to aid in healing with adequate protein intake. Discussed signs and symptoms of infection. Discussed if he notices any increasing redness around the ulcerative site that is moved up the leg, purulent drainage from the ulcerative site, increasing foul odor from the ulcerative site, or if he develops fever greater than 101 degree accompanied by nausea, vomiting, chills of these are signs of a progressing infection and he should report to the ED for IV antibiotics and further evaluation. He is understanding of this today. The following work up and care recommendations were made: Dressing: EpiFix, wound veil, Steri-Strips, Aquacel extra, dry sterile dressing, Tubigrip compression. He will change outer dressing as needed. Will continue compression stocking to right lower extremity Wash: Do not get wet left lower extremity Tissue growth optimization: EpiFix Offload: Tubigrip compression Vascular: Does have history of positive venous insufficiency/reflux. Underwent procedure 04/13/2025 as above. Edema: Tubigrip compression and elevation of the lower extremities Infection: No signs of infection Pain: May take [id number] Tylenol Extra Strength for discomfort Host factors: Chronic venous insufficiency, chronic lower extremity edema, prolonged standing/activity, advanced age complicate healing. I answered all the patient's questions. To return to the wound healing center in 1 week or call sooner if the patient has any questions or concerns.
--- NOTE | 2025-06-08 11:45 | PCM.WC.PN ---
History of Present Illness Date of Service: 06/08/25 Chief Complaint: Left medial ankle wound History of Wound: The patient is seen today as a courtesy visit for Dr. Merrill Burns, the patient's regular Wound Center provider. The patient's medical history is as recently documented below. Patient is a 79-year-old male who presents to the wound care center with recurring left lower extremity medial ankle wound. He has PMHx of recurring left lower extremity ulceration secondary to chronic venous insufficiency, history of DVT, obesity, JOSHUA, iron deficient anemia, delayed wound healing, and asthma. He states that he does have compression stockings and continues to wear them. He had been following in the wound care center for a deep ulceration to the medial aspect of the left lower extremity overlying the neurovascular bundle. He did go on to heal this ulceration as of 12/31/[address] Mckee for venogram. He has continued wearing compression stockings however states that while in the shower he did notice a scab of the left medial ankle and after showering applied antibiotic ointment and Band-Aid which later then the scab became soft and opened a small wound. He states that he did see his PCP who did obtain cultures and placed him on oral antibiotic. He was then referred to the wound care center for further follow-up. He denies any further trauma to the site. States that the specific site is recurrent with breakdown of skin. Denies N/V/F/chills. No further complaints. Subjective Subjective This is a 80-year-old male who returns to the wound care center for continued follow-up of a chronic venous stasis/insufficiency ulceration at the medial aspect of the left lower extremity. He underwent vascular procedure with Dr. Mckee on 04/13/25. Had recent follow-up with vascular on 04/26/2025. Was placed in unna boot compression in addition to being placed on lasix for one week with improvement noted in edema. Has since continued Lasix with edema now controlled. Edema has improved and drainage also improved. States he does not sit often. Continues to try to elevating his legs higher than what he previously had been when he does sit. Continues oral antibiotic and state site is looking better and feeling better. Still continues standing for long periods of time performing woodworking in his garage. He denies constitutional symptoms. Denies further complaints. Objective Data Objective Data Vital Signs: Vital Signs Temp Pulse Resp BP O2 Del Method 96.3 F L 66 18 141/74 H Room Air 06/08/25 09:33 06/08/25 09:33 06/08/25 09:33 06/08/25 09:33 06/08/25 09:33 Oxygen Delivery Method Room Air Physical Exam Const alert, oriented x3 and no apparent distress General Appearance: cooperative HEENT normocephalic Eyes General Eye: normal appearance of both eyes Neck General: normal visual inspection Lymph Lymphatic: no lymphadenopathy noted and no lymphedema noted Resp normal respiratory effort Cardio regular rate and regular rhythm Extremity no calf tenderness Extremity Narrative: Left lower extremity: Vascular: DP and PT pulses weakly palpable. Capillary fill time to digits is 5 seconds. Normal temperature gradient. There is absent hair growth to digits noted. Dermatological: There is a full-thickness ulceration noted to the medial aspect of the lower extremity/ankle with mixed fibro granular layer. Negative Stemmer sign left foot. There is evidence of stasis dermatitis with hyperpigmentation/hemosiderin deposition/staining of skin left lower extremity. There are varicosities noted of the lower extremity with mild lower extremity edema. There is no erythema or rubor of the left lower extremity. Does have increased edema secondary to his vascular procedure. Musculoskeletal: Muscle strength 5 of 5 age-appropriate. There is decreased range of motion of the ankle joint dorsiflexion with knee extended without pain or crepitus. Decreased range of motion of the STJ, MTJ, and first MTPJ without pain or crepitus. No pain to palpation of calf. Skin no rashes or lesions noted General Skin Exam: venous stasis and dermatitis Neuro moves all extremities Debridement Note Debridement Note Wound debrided: Left medial ankle Laterality: Left Wound Grade/Stage: Cisneros stage I Type of Debridement: Excisional debridement Anesthesia Used: 5% Lidocaine Gel Depth: Down to and including healthy tissue and in the subcutaneous layer Percentage of wound debrided: 100 Instrument Used: 5mm curette Tissue Removed: Fibrous, devitalized subcutaneous, biofilm, slough Severity: Fat Layer Exposed Amount of bleeding with debridement: Mild Bleeding Controlled with: Compression and gauze Patient tolerated procedure: Patient tolerated procedure well Post-Debridement Measurements and Additional Note: Post-Debridement Measurements/Treatment LA NENA - Nurse 1 - General Ulcer Assessment Start: 05/22/25 09:37 Freq: Status: Active Protocol: LOWEXT Activity Type Activity Date Activity User E-sign Co-sign Detail Recorded Client Recorded Date Recorded By Document 05/22/25 09:38 JF [id number] 05/22/25 09:39 JF Document 05/25/25 09:44 DL [id number] 05/25/25 09:52 DL Document 05/29/25 11:31 JF [id number] 05/29/25 11:34 JF Document 06/01/25 09:52 DL [id number] 06/01/25 10:02 DL Document 06/08/25 09:33 KW [id number] 06/08/25 09:42 KW 05/22/25 05/25/25 05/29/25 09:38 09:44 11:31 - Today's Visit Information Type of service Nurse-only Follow-up Visit Nurse-only Visit (Physician/TRAIN CONTROLLER Visit ) Arrival Mode Ambulatory Ambulatory Ambulatory Transfer Assistance Manual Patient Identification Verified (Name & No Yes Yes ) Patient Requires Transmission-Based No No Precautions Vital Signs Temperature (97.8 F-99.1 F) 96.7 F L 96.9 F L 97.6 F L Temperature Source Temporal Temporal Temporal Pulse Rate (60-100) 70 65 66 Pulse Location Monitor Monitor Monitor Respiratory Rate (12-18) 16 18 18 Respiratory rate source Observation Observation Observation Oxygen Delivery Method Blood Pressure (90/60-120/80) 118/57 L 133/74 H 118/80 Blood Pressure Mean (mm Hg) 77 93 92 Source Monitor Monitor Monitor Position Sitting Semi-Fowlers Blood Pressure Location Left Arm Left Arm History Since Last Visit- (Skip if this is Patient's initial visit) Have you changed medications since your No last visit? Any new allergies or adverse reactions No Had a fall/change in ADL's that may No increase risk of falls Signs or symptoms of abuse and/or No neglect since last visit Have you been in the hospital since your No last visit? Has dressing in place as prescribed Yes Has compression in place as prescribed Yes Has offloadiing in place as prescribed N/A Experienced any changes in pain level or No management Left Footwear Regular Shoe Right Footwear Regular Shoe Pain Scale: 0-10 Numeric Is Patient Pain Free? Yes Yes Yes 06/01/25 06/08/25 09:52 09:33 - Today's Visit Information Type of service Follow-up Visit Follow-up Visit (Physician/TRAIN CONTROLLER (Physician/TRAIN CONTROLLER ) ) Arrival Mode Ambulatory Ambulatory Transfer Assistance None Patient Identification Verified (Name & Yes Yes ) Patient Requires Transmission-Based No Precautions Vital Signs Temperature (97.8 F-99.1 F) 96.7 F L 96.3 F L Temperature Source Temporal Temporal Pulse Rate (60-100) 60 66 Pulse Location Monitor Monitor Respiratory Rate (12-18) 18 18 Respiratory rate source Observation Observation Oxygen Delivery Method Room Air Blood Pressure (90/60-120/80) 119/71 141/74 H Blood Pressure Mean (mm Hg) 87 96 Source Monitor Monitor Position Semi-Fowlers Blood Pressure Location Right Arm History Since Last Visit- (Skip if this is Patient's initial visit) Have you changed medications since your No No last visit? Any new allergies or adverse reactions No No Had a fall/change in ADL's that may No No increase risk of falls Signs or symptoms of abuse and/or No No neglect since last visit Have you been in the hospital since your No No last visit? Has dressing in place as prescribed Yes Yes Has compression in place as prescribed Yes Yes Has offloadiing in place as prescribed Yes N/A Experienced any changes in pain level or No No management Left Footwear Regular Shoe Right Footwear Regular Shoe Pain Scale: 0-10 Numeric Is Patient Pain Free? Yes Yes WC - Nurse 1 - General Ulcer Measurement Start: 05/22/25 09:37 Freq: Status: Active Protocol: Activity Type Activity Date Activity User E-sign Co-sign Detail Recorded Client Recorded Date Recorded By Document 05/22/25 09:38 JF [id number] 05/22/25 09:39 JF Document 05/25/25 09:44 DL [id number] 05/25/25 09:52 DL Document 05/29/25 11:31 JF [id number] 05/29/25 11:34 JF Document 06/01/25 09:52 DL [id number] 06/01/25 10:02 DL Document 06/08/25 09:33 KW [id number] 06/08/25 09:42 KW 05/22/25 05/25/25 05/29/25 09:38 09:44 11:31 Wound Center Nurse 1 #1 L Med Ankle CLUSTER -Combined with other wound No -Current Size (cm) - Length 6 5.0 -Current Size (cm) - Width 1.8 1.8 -Current Size (cm) - Depth 0.1 0.2 -Total Square Cm 10.8 9.00 -Date of Last Picture (Recall this field) -Photo Taken Yes No -Epithelialization Small 1-33% -Tunneling No -Undermining/Tunneling No -Circular Undermining No -Exudate Amt Medium Small -Exudate Type Serosanguineous Serosanguineous -Wound Margin Thickened Flat & Intact -Granulation Amt Medium (34-66%) Large (67-100%) -Granulation Quality Red [place] -Slough/Fibrin Yes -Necrosis Amt Medium (34-66%) Small (1-33%) -Necrotic Tissue Type Adherent Slough Adherent Slough -Structure Exposed N/A N/A -Texture (Megan-wound Skin Appearance) Scarring Assessed, Localized Edema -Moisture (Megan-wound Skin Appearance) No Abnormality Assessed,Dry/ Scaly -Color (Megan-wound Skin Appearance) No Abnormality Assessed, Hemosiderin Staining -Temperature (Megan-wound Skin No Abnormality No Abnormality Appearance) (Pt Warm) (Pt Warm) -Tenderness on Palpation (Megan-wound No Skin Appearance) -Ulcer Cleansing Soap and Water DAKIN'S -Foul Odor after Cleansing No No -Anesthetic Used 5% Lidocaine Gel Lower Limb Edema Present NA Yes Left Calf (cm) 37.2 Left Ankle (cm) 38.9 06/01/25 06/08/25 09:52 09:33 Wound Center Nurse 1 #1 L Med Ankle CLUSTER -Combined with other wound -Current Size (cm) - Length 4 2 -Current Size (cm) - Width 1.3 5.5 -Current Size (cm) - Depth 0.1 0.2 -Total Square Cm 5.2 11.0 -Date of Last Picture (Recall this 06/08/25 field) -Photo Taken Yes -Epithelialization -Tunneling -Undermining/Tunneling -Circular Undermining -Exudate Amt Medium Large -Exudate Type Serosanguineous Serosanguineous -Wound Margin Distinct, Distinct, Outline Outline Attached Attached -Granulation Amt Large (67-100%) Large (67-100%) -Granulation Quality [place] Red -Slough/Fibrin -Necrosis Amt Small (1-33%) Small (1-33%) -Necrotic Tissue Type Adherent Slough Adherent Slough -Structure Exposed N/A -Texture (Megan-wound Skin Appearance) Scarring Assessed -Moisture (Megan-wound Skin Appearance) Dry/Scaly Assessed, Maceration -Color (Megan-wound Skin Appearance) Hemosiderin Assessed, Staining Erythema -Temperature (Megan-wound Skin No Abnormality No Abnormality Appearance) (Pt Warm) (Pt Warm) -Tenderness on Palpation (Megan-wound No No Skin Appearance) -Ulcer Cleansing Soap and Water Soap and Water -Foul Odor after Cleansing No -Anesthetic Used 5% Lidocaine 5% Lidocaine Gel Gel Lower Limb Edema Present Left Calf (cm) 41.5 Left Ankle (cm) 22.7 WC - Nurse 2 - General Ulcer CM Notes Start: 05/22/25 09:37 Freq: Status: Active Protocol: Activity Type Activity Date Activity User E-sign Co-sign Detail Recorded Client Recorded Date Recorded By Document 05/25/25 10:32 DS [id number] 05/25/25 10:34 DS Document 06/01/25 10:08 Orderlord [id number] 06/01/25 10:19 BMF Document 06/08/25 10:08 Orderlord [id number] 06/08/25 10:17 BMF 05/25/25 06/01/25 06/08/25 10:32 10:08 10:08 Wound Center Nurse 2 #1 L Med Ankle CLUSTER -Time 10:33 10:08 10:08 -Correct Patient Yes Yes Yes -Correct Side, Site, Position Yes Yes Yes -Correct Procedure Yes Yes Yes -Procedure Performed Yes Yes Yes -Type of Procedure Debridement Debridement Debridement -Clinical Debridement Subcutaneous Subcutaneous Subcutaneous -Tissue Removed Subcutaneous Subcutaneous Subcutaneous -Post Debridement (cm) - Length 4.5 4.9 4.6 -Post Debridement (cm) - Width 2.2 2 1.9 -Post Debridement (cm) - Depth 0.1 0.1 0.1 -Total Square (Post) (cm) 9.90 9.8 8.74 -Area of Debridement (cm) - Length 4.5 4.9 4.6 -Area of Debridement (cm) - Width 2.2 2 1.9 -Total Square (Area) (cm) 9.90 9.8 8.74 -Tunneling No No No -Undermining/Tunneling No No No -Circular Undermining No No No -Wound/Ulcer Outcome Not Healed Not Healed Not Healed -Ulcer Cleansing Rinsed/ Rinsed/ Rinsed/ Irrigated with Irrigated with Irrigated with Saline Saline Saline -Foul Odor after Cleansing No No No -Bioengineered Tissue No Yes Yes -Type of Bioengineered Tissue Epifix Mesh Epifix Mesh -Expiration Date 10/19/29 10/19/29 -Product Lot Number [id number] -Percent Used 100 100 -Lot number of Saline Used [id number] -Bleeding Controlled with Pressure Pressure Pressure -Treatment Response Procedure Procedure Procedure Tolerated Well Tolerated Well Tolerated Well -Debridement - Subq, 1st 20sq cm Yes No No -Apply Skin Sub - 1st 25 sq cm - Legs 1 1 -Epifix Mesh Application 1-4 (per sq 11 11 cm) Pain Scale: 0-10 Numeric Is Patient Pain Free? Yes Yes Yes - Nurse 3 - General Ulcer D/C NN Start: 05/22/25 09:37 Freq: Status: Active Protocol: Activity Type Activity Date Activity User E-sign Co-sign Detail Recorded Client Recorded Date Recorded By Document 05/22/25 09:38 [id number] 05/22/25 09:39 Document 05/25/25 10:58 DL [id number] 05/25/25 11:00 DL Document 05/29/25 11:31 [id number] 05/29/25 11:34 Document 06/01/25 10:29 MT [id number] 06/01/25 10:37 MT Document 06/08/25 10:25 DL [id number] 06/08/25 10:27 DL 05/22/25 05/25/25 05/29/25 09:38 10:58 11:31 Pain Scale: 0-10 Numeric Is Patient Pain Free? Yes Yes Yes Wound Care Center Nurse 3 #1 L Med Ankle CLUSTER -Ulcer Cleansing Rinsed/ dakins Irrigated with Saline -Foul Odor after Cleansing No -Negative Pressure Wound Therapy -Foam Supply Charges Patient Supplied Dressing -Primary Dressing Applied Aquacel Extra, NonAdherent Contact Layer, Promogran Abran Matter -Other Dressing Unna ABRAN/ADAPTIC AND AQUACEL EXTRA -Primary Dressing Covered/Secured with Dry Gauze & Dry Gauze Roll Gauze -Aquacel Extra 1 -Promogran Abran Matter 1 -Wound Comment(s) use patient's own supply of abran and aqaucel extra LLE -Multi-Layered Wrap Application Unna Boot - Unna Boot - Unna Boot - Left Left Left -Tubular Bandage -Size of Tubigrip Used -Size D ($) -Stockings -Unna- Left (Qty applied) 1 1 1 Treatment Response Procedure Tolerated Well WC - Visit Discharge Discharge Condition Stable Stable Stable Ambulatory Status Ambulatory Ambulatory Ambulatory Transportation Private Auto Private Auto Private Auto Medication Reconcilliation completed & Yes Yes provided to patient/care provider Clinical Summary of Care Provided Yes Yes Notes: 06/01/25 06/08/25 10:29 10:25 Pain Scale: 0-10 Numeric Is Patient Pain Free? Yes Yes Wound Care Center Nurse 3 #1 L Med Ankle CLUSTER -Ulcer Cleansing -Foul Odor after Cleansing No No -Negative Pressure Wound Therapy N/A -Foam Supply Charges -Primary Dressing Applied Aquacel Extra -Other Dressing Aqaucel EX/ Epimesh -Primary Dressing Covered/Secured with Dry Gauze,Dry Dry Gauze & Gauze & Roll Roll Gauze, Gauze,Secured Secured with with Tape Tape -Aquacel Extra 1 -Promogran Abran Matter -Wound Comment(s) LLE -Multi-Layered Wrap Application -Tubular Bandage Double Layer -Size of Tubigrip Used Size D Size D -Size D ($) 2 -Stockings No -Unna- Left (Qty applied) Treatment Response WC - Visit Discharge Discharge Condition Stable Stable Ambulatory Status Ambulatory Ambulatory Transportation Private Auto Private Auto Medication Reconcilliation completed & No provided to patient/care provider Clinical Summary of Care Provided Yes Notes: explained the new wound orders to the patient. the pt seemed very confused about dressing change if it get soiled. i went over the new orders line by line with the pt. i also instructed the pt to call if he had any issues. Assessment/Plan Assessment/Plan (1) Non-pressure chronic ulcer of left calf with fat layer exposed: CODE(S): L97.222 - Non-pressure chronic ulcer of left calf with fat layer exposed (2) Cellulitis of left lower limb: CODE(S): L03.116 - Cellulitis of left lower limb (3) Venous insufficiency (chronic) (peripheral): CODE(S): I87.2 - Venous insufficiency (chronic) (peripheral) (4) Bilateral lower extremity edema: CODE(S): R60.0 - Localized edema (5) 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: CODE(S): I83.003 - Varicose veins of unspecified lower extremity with ulcer of ankle; L97.302 - Non-pressure chronic ulcer of unspecified ankle with fat layer exposed QUALIFIERS: Varicose vein presence: with varicose veins Laterality: left Qualified Code(s): I83.023 - Varicose veins of left lower extremity with ulcer of ankle; L97.322 - Non-pressure chronic ulcer of left ankle with fat layer exposed PLAN: Plan Patient seen and evaluated Predebridement measurement 4.5 cm x 1.8 cm x 0.1 cm Postdebridement measurement 4.6 cm x 1.9 cm x 0.1 cm Ulceration site did undergo debridement as noted in the clinical panel above. Localized erythema from previous visit has improved on oral antibiotic and Dakin's wash. Following debridement, EpiFix graft #2 ([id number]) was applied to the ulcerative bed. No signs of infection or ulcerative bed at graft placement. Site was then dressed with wound veil and anchored with Steri-Strips. Aquacel extra applied over graft site and dressed with dry sterile dressing. Double Tubigrip stocking applied for compression. There is decreased in size of ulceration in terms of length and width versus previous visit with edema also improved. Swab culture was obtained of the site 05/18/2025. Results demonstrate strep agalactiae and Serratia marcescens. Due to positive cultures following his Dakin's wash he was prescribed doxycycline 100 mg twice daily x 14 days and ciprofloxacin 500 mg twice daily x 14 days (stop date 06/08/2025). There has been improvement in the appearance of the wound and he will finish antibiotic to completion. Stat Doppler for 02/16/2025 was negative for DVT. He did undergo repeat venous study 03/14/25 and underwent venous ablation on April 13. He was again instructed on continued elevation of the lower extremities to aid in edema control. Following healing of ulcerative site he will return to compression stockings however this time we will increase from 20 to 30 mmHg to 30 to 40 mmHg versus application of juxta lite compression. Juxta lite compression wrap was applied for 02/16/2025, awaiting approval. He has been approved for advanced wound care product, EpiFix for application. He is following with Dr. Mckee for procedure to aid in his venous insufficiency. Procedure performed 04/13/25. Recent visit with Dr. Mckee 04/26/2025. Discussed continued diet to aid in healing with adequate protein intake. Discussed signs and symptoms of infection. Discussed if he notices any increasing redness around the ulcerative site that is moved up the leg, purulent drainage from the ulcerative site, increasing foul odor from the ulcerative site, or if he develops fever greater than 101 degree accompanied by nausea, vomiting, chills of these are signs of a progressing infection and he should report to the ED for IV antibiotics and further evaluation. He is understanding of this today. The following work up and care recommendations were made: Dressing: EpiFix, wound veil, Steri-Strips, Aquacel extra, dry sterile dressing, Tubigrip compression. He will change outer dressing as needed. Will continue compression stocking to right lower extremity Wash: Do not get wet left lower extremity Tissue growth optimization: EpiFix Offload: Tubigrip compression Vascular: Does have history of positive venous insufficiency/reflux. Underwent procedure 04/13/2025 as above. Edema: Tubigrip compression and elevation of the lower extremities Infection: No signs of infection Pain: May take [id number] Tylenol Extra Strength for discomfort Host factors: Chronic venous insufficiency, chronic lower extremity edema, prolonged standing/activity, advanced age complicate healing. I answered all the patient's questions. To return to the wound healing center in 1 week or call sooner if the patient has any questions or concerns.
--- NOTE | 2025-06-09 08:31 | WC ---
PHOTO-LEFT MED ANKLE CLUSTER 06/08/25
--- NOTE | 2025-06-09 08:31 | WC ---
PHOTO-LEFT MED ANKLE CLUSTER 06/08/25
[2025-06-15 09:10] VITALS: BP 144/70; PULSE 77; RESP 18; TEMP 36
--- NOTE | 2025-06-15 10:06 | PN.PCM_ITS ---
History of Present Illness Date of Service: 06/15/25 Chief Complaint: Left medial ankle wound History of Wound: The patient is seen today as a courtesy visit for Dr. Merrill Burns, the patient's regular Wound Center provider. The patient's medical history is as recently documented below. Patient is a 79-year-old male who presents to the wound care center with recurring left lower extremity medial ankle wound. He has PMHx of recurring left lower extremity ulceration secondary to chronic venous insufficiency, history of DVT, obesity, JOSHUA, iron deficient anemia, delayed wound healing, and asthma. He states that he does have compression stockings and continues to wear them. He had been following in the wound care center for a deep ulceration to the medial aspect of the left lower extremity overlying the neurovascular bundle. He did go on to heal this ulceration as of 12/31/[address] Mckee for venogram. He has continued wearing compression stockings however states that while in the shower he did notice a scab of the left medial ankle and after showering applied antibiotic ointment and Band-Aid which later then the scab became soft and opened a small wound. He states that he did see his PCP who did obtain cultures and placed him on oral antibiotic. He was then referred to the wound care center for further follow-up. He denies any further trauma to the site. States that the specific site is recurrent with breakdown of skin. Denies N/V/F/chills. No further complaints. Subjective Subjective This is a 80-year-old male who returns to the wound care center for continued follow-up of a chronic venous stasis/insufficiency ulceration at the medial aspect of the left lower extremity. He underwent vascular procedure with Dr. Mckee on 04/13/25. Had follow-up with vascular on 04/26/2025. Has since continued Lasix with edema now controlled. Edema has improved and drainage also improved. Has left grafting product in place and states he is changing outer dressing as needed. States he does not sit often. Continues to try to elevating his legs when he does sit. Continues oral antibiotic and state site is looking better and feeling better. Still continues standing for long periods of time performing woodworking in his garage. He denies constitutional symptoms. Denies further complaints. Objective Data Objective Data Vital Signs: Vital Signs Temp Pulse Resp BP O2 Del Method 96.8 F L 77 18 144/70 H Room Air 06/15/25 09:10 06/15/25 09:10 06/15/25 09:10 06/15/25 09:10 06/08/25 09:33 Oxygen Delivery Method Room Air Physical Exam Const alert, oriented x3 and no apparent distress General Appearance: cooperative HEENT normocephalic Eyes General Eye: normal appearance of both eyes Neck General: normal visual inspection Lymph Lymphatic: no lymphadenopathy noted and no lymphedema noted Resp normal respiratory effort Cardio regular rate and regular rhythm Extremity no calf tenderness Extremity Narrative: Left lower extremity: Vascular: DP and PT pulses weakly palpable. Capillary fill time to digits is 5 seconds. Normal temperature gradient. There is absent hair growth to digits noted. Dermatological: There is a full-thickness ulceration noted to the medial aspect of the lower extremity/ankle with mixed fibro granular layer. Negative Stemmer sign left foot. There is evidence of stasis dermatitis with hyperpigmentation/hemosiderin deposition/staining of skin left lower extremity. There are varicosities noted of the lower extremity with mild lower extremity edema. There is no erythema or rubor of the left lower extremity. Does have increased edema secondary to his vascular procedure, but this is well-controlled with Lasix now. Musculoskeletal: Muscle strength 5 of 5 age-appropriate. There is decreased range of motion of the ankle joint dorsiflexion with knee extended without pain or crepitus. Decreased range of motion of the STJ, MTJ, and first MTPJ without pain or crepitus. No pain to palpation of calf. Skin no rashes or lesions noted General Skin Exam: venous stasis and dermatitis Neuro moves all extremities Debridement Note Debridement Note Wound debrided: Left medial ankle Laterality: Left Wound Grade/Stage: Cisneros stage I Type of Debridement: Excisional debridement Anesthesia Used: 5% Lidocaine Gel Depth: Down to and including healthy tissue and in the subcutaneous layer Percentage of wound debrided: 100 Instrument Used: 5mm curette Tissue Removed: Fibrous, devitalized subcutaneous, biofilm, slough Severity: Fat Layer Exposed Amount of bleeding with debridement: Mild Bleeding Controlled with: Compression and gauze Patient tolerated procedure: Patient tolerated procedure well Post-Debridement Measurements and Additional Note: Post-Debridement Measurements/Treatment WC - Nurse 1 - General Ulcer Assessment Start: 05/22/25 09:37 Freq: Status: Active Protocol: LOWSANJANAT Activity Type Activity Date Activity User E-sign Co-sign Detail Recorded Client Recorded Date Recorded By Document 05/22/25 09:38 JF [id number] 05/22/25 09:39 JF Document 05/25/25 09:44 DL [id number] 05/25/25 09:52 DL Document 05/29/25 11:31 JF [id number] 05/29/25 11:34 JF Document 06/01/25 09:52 DL [id number] 06/01/25 10:02 DL Document 06/08/25 09:33 KW [id number] 06/08/25 09:42 KW Document 06/15/25 09:10 DL [id number] 06/15/25 09:18 DL 05/22/25 05/25/25 05/29/25 09:38 09:44 11:31 - Today's Visit Information Type of service Nurse-only Follow-up Visit Nurse-only Visit (Physician/PATTERN PERFORATING MACHINE OPERATOR Visit ) Arrival Mode Ambulatory Ambulatory Ambulatory Transfer Assistance Manual Patient Identification Verified (Name & No Yes Yes ) Patient Requires Transmission-Based No No Precautions Vital Signs Temperature (97.8 F-99.1 F) 96.7 F L 96.9 F L 97.6 F L Temperature Source Temporal Temporal Temporal Pulse Rate (60-100) 70 65 66 Pulse Location Monitor Monitor Monitor Respiratory Rate (12-18) 16 18 18 Respiratory rate source Observation Observation Observation Oxygen Delivery Method Blood Pressure (90/60-120/80) 118/57 L 133/74 H 118/80 Blood Pressure Mean (mm Hg) 77 93 92 Source Monitor Monitor Monitor Position Sitting Semi-Fowlers Blood Pressure Location Left Arm Left Arm History Since Last Visit- (Skip if this is Patient's initial visit) Have you changed medications since your No last visit? Any new allergies or adverse reactions No Had a fall/change in ADL's that may No increase risk of falls Signs or symptoms of abuse and/or No neglect since last visit Have you been in the hospital since your No last visit? Has dressing in place as prescribed Yes Has compression in place as prescribed Yes Has offloadiing in place as prescribed N/A Experienced any changes in pain level or No management Left Footwear Regular Shoe Right Footwear Regular Shoe Pain Scale: 0-10 Numeric Is Patient Pain Free? Yes Yes Yes 06/01/25 06/08/25 06/15/25 09:52 09:33 09:10 - Today's Visit Information Type of service Follow-up Visit Follow-up Visit Follow-up Visit (Physician/PATTERN PERFORATING MACHINE OPERATOR (Physician/PATTERN PERFORATING MACHINE OPERATOR (Physician/PATTERN PERFORATING MACHINE OPERATOR ) ) ) Arrival Mode Ambulatory Ambulatory Ambulatory Transfer Assistance None None Patient Identification Verified (Name & Yes Yes Yes ) Patient Requires Transmission-Based No No Precautions Vital Signs Temperature (97.8 F-99.1 F) 96.7 F L 96.3 F L 96.8 F L Temperature Source Temporal Temporal Temporal Pulse Rate (60-100) 60 66 77 Pulse Location Monitor Monitor Monitor Respiratory Rate (12-18) 18 18 18 Respiratory rate source Observation Observation Observation Oxygen Delivery Method Room Air Blood Pressure (90/60-120/80) 119/71 141/74 H 144/70 H Blood Pressure Mean (mm Hg) 87 96 94 Source Monitor Monitor Monitor Position Semi-Fowlers Blood Pressure Location Right Arm History Since Last Visit- (Skip if this is Patient's initial visit) Have you changed medications since your No No No last visit? Any new allergies or adverse reactions No No No Had a fall/change in ADL's that may No No No increase risk of falls Signs or symptoms of abuse and/or No No No neglect since last visit Have you been in the hospital since your No No No last visit? Has dressing in place as prescribed Yes Yes Yes Has compression in place as prescribed Yes Yes Yes Has offloadiing in place as prescribed Yes N/A N/A Experienced any changes in pain level or No No No management Left Footwear Regular Shoe Regular Shoe Right Footwear Regular Shoe Regular Shoe Pain Scale: 0-10 Numeric Is Patient Pain Free? Yes Yes Yes - Nurse 1 - General Ulcer Measurement Start: 05/22/25 09:37 Freq: Status: Active Protocol: Activity Type Activity Date Activity User E-sign Co-sign Detail Recorded Client Recorded Date Recorded By Document 05/22/25 09:38 JF [id number] 05/22/25 09:39 JF Document 05/25/25 09:44 DL [id number] 05/25/25 09:52 DL Document 05/29/25 11:31 JF [id number] 05/29/25 11:34 JF Document 06/01/25 09:52 DL [id number] 06/01/25 10:02 DL Document 06/08/25 09:33 KW [id number] 06/08/25 09:42 KW Document 06/15/25 09:10 DL [id number] 06/15/25 09:18 DL 05/22/25 05/25/25 05/29/25 09:38 09:44 11:31 Wound Center Nurse 1 #1 L Med Ankle CLUSTER -Combined with other wound No -Current Size (cm) - Length 6 5.0 -Current Size (cm) - Width 1.8 1.8 -Current Size (cm) - Depth 0.1 0.2 -Total Square Cm 10.8 9.00 -Date of Last Picture (Recall this field) -Photo Taken Yes No -Epithelialization Small 1-33% -Tunneling No -Undermining/Tunneling No -Circular Undermining No -Exudate Amt Medium Small -Exudate Type Serosanguineous Serosanguineous -Wound Margin Thickened Flat & Intact -Granulation Amt Medium (34-66%) Large (67-100%) -Granulation Quality Red Ganister -Slough/Fibrin Yes -Necrosis Amt Medium (34-66%) Small (1-33%) -Necrotic Tissue Type Adherent Slough Adherent Slough -Structure Exposed N/A N/A -Texture (Megan-wound Skin Appearance) Scarring Assessed, Localized Edema -Moisture (Megan-wound Skin Appearance) No Abnormality Assessed,Dry/ Scaly -Color (Megan-wound Skin Appearance) No Abnormality Assessed, Hemosiderin Staining -Temperature (Megan-wound Skin No Abnormality No Abnormality Appearance) (Pt Warm) (Pt Warm) -Tenderness on Palpation (Megan-wound No Skin Appearance) -Ulcer Cleansing Soap and Water DAKIN'S -Foul Odor after Cleansing No No -Anesthetic Used 5% Lidocaine Gel Lower Limb Edema Present NA Yes Left Calf (cm) 37.2 Left Ankle (cm) 38.9 06/01/25 06/08/25 06/15/25 09:52 09:33 09:10 Wound Center Nurse 1 #1 L Med Ankle CLUSTER -Combined with other wound -Current Size (cm) - Length 4 2 6 -Current Size (cm) - Width 1.3 5.5 1.7 -Current Size (cm) - Depth 0.1 0.2 0.1 -Total Square Cm 5.2 11.0 10.2 -Date of Last Picture (Recall this 06/08/25 field) -Photo Taken Yes Yes -Epithelialization -Tunneling -Undermining/Tunneling -Circular Undermining -Exudate Amt Medium Large Medium -Exudate Type Serosanguineous Serosanguineous Serosanguineous -Wound Margin Distinct, Distinct, Distinct, Outline Outline Outline Attached Attached Attached -Granulation Amt Large (67-100%) Large (67-100%) Medium (34-66%) -Granulation Quality Ganister Red Ganister,Red -Slough/Fibrin -Necrosis Amt Small (1-33%) Small (1-33%) Medium (34-66%) -Necrotic Tissue Type Adherent Slough Adherent Slough Adherent Slough -Structure Exposed N/A N/A -Texture (Megan-wound Skin Appearance) Scarring Assessed Scarring -Moisture (Megan-wound Skin Appearance) Dry/Scaly Assessed, Dry/Scaly Maceration -Color (Megan-wound Skin Appearance) Hemosiderin Assessed, No Abnormality Staining Erythema -Temperature (Megan-wound Skin No Abnormality No Abnormality No Abnormality Appearance) (Pt Warm) (Pt Warm) (Pt Warm) -Tenderness on Palpation (Megan-wound No No No Skin Appearance) -Ulcer Cleansing Soap and Water Soap and Water Soap and Water -Foul Odor after Cleansing No No -Anesthetic Used 5% Lidocaine 5% Lidocaine 5% Lidocaine Gel Gel Gel Lower Limb Edema Present Left Calf (cm) 41.5 39.5 Left Ankle (cm) 22.7 23 WC - Nurse 2 - General Ulcer CM Notes Start: 05/22/25 09:37 Freq: Status: Active Protocol: Activity Type Activity Date Activity User E-sign Co-sign Detail Recorded Client Recorded Date Recorded By Document 05/25/25 10:32 DS [id number] 05/25/25 10:34 DS Document 06/01/25 10:08 BMF [id number] 06/01/25 10:19 BMF Document 06/08/25 10:08 BMF [id number] 06/08/25 10:17 BMF Document 06/15/25 09:22 BMF [id number] 06/15/25 09:31 BMF 05/25/25 06/01/25 06/08/25 10:32 10:08 10:08 Wound Center Nurse 2 #1 L Med Ankle CLUSTER -Time 10:33 10:08 10:08 -Correct Patient Yes Yes Yes -Correct Side, Site, Position Yes Yes Yes -Correct Procedure Yes Yes Yes -Procedure Performed Yes Yes Yes -Type of Procedure Debridement Debridement Debridement -Clinical Debridement Subcutaneous Subcutaneous Subcutaneous -Tissue Removed Subcutaneous Subcutaneous Subcutaneous -Post Debridement (cm) - Length 4.5 4.9 4.6 -Post Debridement (cm) - Width 2.2 2 1.9 -Post Debridement (cm) - Depth 0.1 0.1 0.1 -Total Square (Post) (cm) 9.90 9.8 8.74 -Area of Debridement (cm) - Length 4.5 4.9 4.6 -Area of Debridement (cm) - Width 2.2 2 1.9 -Total Square (Area) (cm) 9.90 9.8 8.74 -Tunneling No No No -Undermining/Tunneling No No No -Circular Undermining No No No -Wound/Ulcer Outcome Not Healed Not Healed Not Healed -Ulcer Cleansing Rinsed/ Rinsed/ Rinsed/ Irrigated with Irrigated with Irrigated with Saline Saline Saline -Foul Odor after Cleansing No No No -Bioengineered Tissue No Yes Yes -Type of Bioengineered Tissue Epifix Mesh Epifix Mesh -Expiration Date 10/19/29 10/19/29 -Product Lot Number [id number] -Percent Used 100 100 -Lot number of Saline Used [id number] -Bleeding Controlled with Pressure Pressure Pressure -Treatment Response Procedure Procedure Procedure Tolerated Well Tolerated Well Tolerated Well -Debridement - Subq, 1st 20sq cm Yes No No -Apply Skin Sub - 1st 25 sq cm - Legs 1 1 -Epifix Mesh Application 1-4 (per sq 11 11 cm) Pain Scale: 0-10 Numeric Is Patient Pain Free? Yes Yes Yes 06/15/25 09:22 Wound Center Nurse 2 #1 L Med Ankle CLUSTER -Time 09:22 -Correct Patient Yes -Correct Side, Site, Position Yes -Correct Procedure Yes -Procedure Performed Yes -Type of Procedure Debridement -Clinical Debridement Subcutaneous -Tissue Removed Subcutaneous -Post Debridement (cm) - Length 4.4 -Post Debridement (cm) - Width 1.5 -Post Debridement (cm) - Depth 0.1 -Total Square (Post) (cm) 6.60 -Area of Debridement (cm) - Length 4.4 -Area of Debridement (cm) - Width 1.5 -Total Square (Area) (cm) 6.60 -Tunneling No -Undermining/Tunneling No -Circular Undermining No -Wound/Ulcer Outcome Not Healed -Ulcer Cleansing Rinsed/ Irrigated with Saline -Foul Odor after Cleansing No -Bioengineered Tissue Yes -Type of Bioengineered Tissue Epifix Mesh -Expiration Date 10/19/29 -Product Lot Number [id number] -Percent Used 100 -Lot number of Saline Used [id number] -Bleeding Controlled with Pressure -Treatment Response Procedure Tolerated Well -Debridement - Subq, 1st 20sq cm No -Apply Skin Sub - 1st 25 sq cm - Legs 1 -Epifix Mesh Application 1-4 (per sq 11 cm) Pain Scale: 0-10 Numeric Is Patient Pain Free? Yes - Nurse 3 - General Ulcer D/C NN Start: 05/22/25 09:37 Freq: Status: Active Protocol: Activity Type Activity Date Activity User E-sign Co-sign Detail Recorded Client Recorded Date Recorded By Document 05/22/25 09:38 [id number] 05/22/25 09:39 Document 05/25/25 10:58 DL [id number] 05/25/25 11:00 DL Document 05/29/25 11:31 JF [id number] 05/29/25 11:34 JF Document 06/01/25 10:29 MT [id number] 06/01/25 10:37 MT Document 06/08/25 10:25 DL [id number] 06/08/25 10:27 DL Document 06/15/25 09:38 [facility] [id number] 06/15/25 09:39 [facility] 05/22/25 05/25/25 05/29/25 09:38 10:58 11:31 Pain Scale: 0-10 Numeric Is Patient Pain Free? Yes Yes Yes Wound Care Center Nurse 3 #1 L Med Ankle CLUSTER -Ulcer Cleansing Rinsed/ dakins Irrigated with Saline -Foul Odor after Cleansing No -Negative Pressure Wound Therapy -Foam Supply Charges Patient Supplied Dressing -Primary Dressing Applied Aquacel Extra, NonAdherent Contact Layer, Promogran Abran Matter -Other Dressing Unna ABRAN/ADAPTIC AND AQUACEL EXTRA -Primary Dressing Covered/Secured with Dry Gauze & Dry Gauze Roll Gauze -Aquacel Extra 1 -Promogran Abran Matter 1 -Wound Comment(s) use patient's own supply of abran and aqaucel extra LLE -Multi-Layered Wrap Application Unna Boot - Unna Boot - Unna Boot - Left Left Left -Tubular Bandage -Size of Tubigrip Used -Size D ($) -Stockings -Unna- Left (Qty applied) 1 1 1 Treatment Response Procedure Tolerated Well WC - Visit Discharge Discharge Condition Stable Stable Stable Ambulatory Status Ambulatory Ambulatory Ambulatory Transportation Private Auto Private Auto Private Auto Medication Reconcilliation completed & Yes Yes provided to patient/care provider Clinical Summary of Care Provided Yes Yes Notes: 06/01/25 06/08/25 06/15/25 10:29 10:25 09:38 Pain Scale: 0-10 Numeric Is Patient Pain Free? Yes Yes Yes Wound Care Center Nurse 3 #1 L Med Ankle CLUSTER -Ulcer Cleansing -Foul Odor after Cleansing No No -Negative Pressure Wound Therapy N/A -Foam Supply Charges -Primary Dressing Applied Aquacel Extra Aquacel Extra -Other Dressing Aqaucel EX/ abd Epimesh -Primary Dressing Covered/Secured with Dry Gauze,Dry Dry Gauze & Dry Gauze & Gauze & Roll Roll Gauze, Roll Gauze, Gauze,Secured Secured with Secured with with Tape Tape Tape -Aquacel Extra 1 1 -Promogran Abran Matter -Wound Comment(s) LLE -Multi-Layered Wrap Application -Tubular Bandage Double Layer Double Layer -Size of Tubigrip Used Size D Size D Size D -Size D ($) 2 2 -Stockings No -Unna- Left (Qty applied) Treatment Response WC - Visit Discharge Discharge Condition Stable Stable Stable Ambulatory Status Ambulatory Ambulatory Ambulatory Transportation Private Auto Private Auto Private Auto Medication Reconcilliation completed & No provided to patient/care provider Clinical Summary of Care Provided Yes Notes: explained the new wound orders to the patient. the pt seemed very confused about dressing change if it get soiled. i went over the new orders line by line with the pt. i also instructed the pt to call if he had any issues. Assessment/Plan Assessment/Plan (1) Non-pressure chronic ulcer of left calf with fat layer exposed: CODE(S): L97.222 - Non-pressure chronic ulcer of left calf with fat layer exposed (2) Cellulitis of left lower limb: CODE(S): L03.116 - Cellulitis of left lower limb (3) Venous insufficiency (chronic) (peripheral): CODE(S): I87.2 - Venous insufficiency (chronic) (peripheral) (4) Bilateral lower extremity edema: CODE(S): R60.0 - Localized edema (5) 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: CODE(S): I83.003 - Varicose veins of unspecified lower extremity with ulcer of ankle; L97.302 - Non-pressure chronic ulcer of unspecified ankle with fat layer exposed QUALIFIERS: Varicose vein presence: with varicose veins Laterality: left Qualified Code(s): I83.023 - Varicose veins of left lower extremity with ulcer of ankle; L97.322 - Non-pressure chronic ulcer of left ankle with fat layer exposed PLAN: Plan Patient seen and evaluated Predebridement measurement 4.3 cm x 1.4 cm x 0.1 cm Postdebridement measurement 4.4 cm x 1.5 cm x 0.1 cm Ulceration site did undergo debridement as noted in the clinical panel above. Localized erythema from 06/01/25 has improved on oral antibiotic and Dakin's wash. Following debridement, EpiFix graft #3 ([id number]) was applied to the ulcerative bed. No signs of infection or ulcerative bed at graft placement. Site was then dressed with wound veil and anchored with Steri-Strips. Aquacel extra applied over graft site and dressed with dry sterile dressing. Double Tubigrip stocking applied for compression. There is decreased in size of ulceration in terms of length and width versus previous visit with edema improved and maintained on Lasix. Swab culture was obtained of the site 05/18/2025. Results demonstrate strep agalactiae and Serratia marcescens. Due to positive cultures following his Dakin's wash he was prescribed doxycycline 100 mg twice daily x 14 days and ciprofloxacin 500 mg twice daily x 14 days (stop date 06/08/2025). There has been improvement in the appearance of the wound he has finished antibiotic to completion. Stat Doppler for 02/16/2025 was negative for DVT. He did undergo repeat venous study 03/14/25 and underwent venous ablation on April 13. He was again instructed on continued elevation of the lower extremities to aid in edema control. Following healing of ulcerative site he will return to compression stockings however this time we will increase from 20 to 30 mmHg to 30 to 40 mmHg versus application of juxta lite compression. Juxta lite compression wrap was applied for 02/16/2025, awaiting approval. He has been approved for advanced wound care product, EpiFix for application. He is following with Dr. Mckee for procedure to aid in his venous ins ufficiency. Procedure performed 04/13/25. Recent visit with Dr. Mckee 04/26/2025. Discussed continued diet to aid in healing with adequate protein intake. Discussed signs and symptoms of infection. Discussed if he notices any increasing redness around the ulcerative site that is moved up the leg, purulent drainage from the ulcerative site, increasing foul odor from the ulcerative site, or if he develops fever greater than 101 degree accompanied by nausea, vomiting, chills of these are signs of a progressing infection and he should report to the ED for IV antibiotics and further evaluation. He is understanding of this today. The following work up and care recommendations were made: Dressing: EpiFix, wound veil, Steri-Strips, Aquacel extra, dry sterile dressing, Tubigrip compression. He will change outer dressing as needed. Will continue compression stocking to right lower extremity Wash: Do not get wet left lower extremity Tissue growth optimization: EpiFix Offload: Tubigrip compression Vascular: Does have history of positive venous insufficiency/reflux. Underwent procedure 04/13/2025 as above. Edema: Tubigrip compression and elevation of the lower extremities Infection: No signs of infection Pain: May take [id number] Tylenol Extra Strength for discomfort Host factors: Chronic venous insufficiency, chronic lower extremity edema, prolonged standing/activity, advanced age complicate healing. I answered all the patient's questions. To return to the wound healing center in 1 week or call sooner if the patient has any questions or concerns.
--- NOTE | 2025-06-15 10:06 | PN.PCM_ITS ---
History of Present Illness Date of Service: 06/15/25 Chief Complaint: Left medial ankle wound History of Wound: The patient is seen today as a courtesy visit for Dr. Merrill Burns, the patient's regular Wound Center provider. The patient's medical history is as recently documented below. Patient is a 79-year-old male who presents to the wound care center with recurring left lower extremity medial ankle wound. He has PMHx of recurring left lower extremity ulceration secondary to chronic venous insufficiency, history of DVT, obesity, JOSHUA, iron deficient anemia, delayed wound healing, and asthma. He states that he does have compression stockings and continues to wear them. He had been following in the wound care center for a deep ulceration to the medial aspect of the left lower extremity overlying the neurovascular bundle. He did go on to heal this ulceration as of 12/31/[address] Mckee for venogram. He has continued wearing compression stockings however states that while in the shower he did notice a scab of the left medial ankle and after showering applied antibiotic ointment and Band-Aid which later then the scab became soft and opened a small wound. He states that he did see his PCP who did obtain cultures and placed him on oral antibiotic. He was then referred to the wound care center for further follow-up. He denies any further trauma to the site. States that the specific site is recurrent with breakdown of skin. Denies N/V/F/chills. No further complaints. Subjective Subjective This is a 80-year-old male who returns to the wound care center for continued follow-up of a chronic venous stasis/insufficiency ulceration at the medial aspect of the left lower extremity. He underwent vascular procedure with Dr. Mckee on 04/13/25. Had follow-up with vascular on 04/26/2025. Has since continued Lasix with edema now controlled. Edema has improved and drainage also improved. Has left grafting product in place and states he is changing outer dressing as needed. States he does not sit often. Continues to try to elevating his legs when he does sit. Continues oral antibiotic and state site is looking better and feeling better. Still continues standing for long periods of time performing woodworking in his garage. He denies constitutional symptoms. Denies further complaints. Objective Data Objective Data Vital Signs: Vital Signs Temp Pulse Resp BP O2 Del Method 96.8 F L 77 18 144/70 H Room Air 06/15/25 09:10 06/15/25 09:10 06/15/25 09:10 06/15/25 09:10 06/08/25 09:33 Oxygen Delivery Method Room Air Physical Exam Const alert, oriented x3 and no apparent distress General Appearance: cooperative HEENT normocephalic Eyes General Eye: normal appearance of both eyes Neck General: normal visual inspection Lymph Lymphatic: no lymphadenopathy noted and no lymphedema noted Resp normal respiratory effort Cardio regular rate and regular rhythm Extremity no calf tenderness Extremity Narrative: Left lower extremity: Vascular: DP and PT pulses weakly palpable. Capillary fill time to digits is 5 seconds. Normal temperature gradient. There is absent hair growth to digits noted. Dermatological: There is a full-thickness ulceration noted to the medial aspect of the lower extremity/ankle with mixed fibro granular layer. Negative Stemmer sign left foot. There is evidence of stasis dermatitis with hyperpigmentation/hemosiderin deposition/staining of skin left lower extremity. There are varicosities noted of the lower extremity with mild lower extremity edema. There is no erythema or rubor of the left lower extremity. Does have increased edema secondary to his vascular procedure, but this is well-controlled with Lasix now. Musculoskeletal: Muscle strength 5 of 5 age-appropriate. There is decreased range of motion of the ankle joint dorsiflexion with knee extended without pain or crepitus. Decreased range of motion of the STJ, MTJ, and first MTPJ without pain or crepitus. No pain to palpation of calf. Skin no rashes or lesions noted General Skin Exam: venous stasis and dermatitis Neuro moves all extremities Debridement Note Debridement Note Wound debrided: Left medial ankle Laterality: Left Wound Grade/Stage: Cisneros stage I Type of Debridement: Excisional debridement Anesthesia Used: 5% Lidocaine Gel Depth: Down to and including healthy tissue and in the subcutaneous layer Percentage of wound debrided: 100 Instrument Used: 5mm curette Tissue Removed: Fibrous, devitalized subcutaneous, biofilm, slough Severity: Fat Layer Exposed Amount of bleeding with debridement: Mild Bleeding Controlled with: Compression and gauze Patient tolerated procedure: Patient tolerated procedure well Post-Debridement Measurements and Additional Note: Post-Debridement Measurements/Treatment WC - Nurse 1 - General Ulcer Assessment Start: 05/22/25 09:37 Freq: Status: Active Protocol: LOWSANJANAT Activity Type Activity Date Activity User E-sign Co-sign Detail Recorded Client Recorded Date Recorded By Document 05/22/25 09:38 JF [id number] 05/22/25 09:39 JF Document 05/25/25 09:44 DL [id number] 05/25/25 09:52 DL Document 05/29/25 11:31 JF [id number] 05/29/25 11:34 JF Document 06/01/25 09:52 DL [id number] 06/01/25 10:02 DL Document 06/08/25 09:33 KW [id number] 06/08/25 09:42 KW Document 06/15/25 09:10 DL [id number] 06/15/25 09:18 DL 05/22/25 05/25/25 05/29/25 09:38 09:44 11:31 - Today's Visit Information Type of service Nurse-only Follow-up Visit Nurse-only Visit (Physician/HEAD OF MATHEMATICS Visit ) Arrival Mode Ambulatory Ambulatory Ambulatory Transfer Assistance Manual Patient Identification Verified (Name & No Yes Yes ) Patient Requires Transmission-Based No No Precautions Vital Signs Temperature (97.8 F-99.1 F) 96.7 F L 96.9 F L 97.6 F L Temperature Source Temporal Temporal Temporal Pulse Rate (60-100) 70 65 66 Pulse Location Monitor Monitor Monitor Respiratory Rate (12-18) 16 18 18 Respiratory rate source Observation Observation Observation Oxygen Delivery Method Blood Pressure (90/60-120/80) 118/57 L 133/74 H 118/80 Blood Pressure Mean (mm Hg) 77 93 92 Source Monitor Monitor Monitor Position Sitting Semi-Fowlers Blood Pressure Location Left Arm Left Arm History Since Last Visit- (Skip if this is Patient's initial visit) Have you changed medications since your No last visit? Any new allergies or adverse reactions No Had a fall/change in ADL's that may No increase risk of falls Signs or symptoms of abuse and/or No neglect since last visit Have you been in the hospital since your No last visit? Has dressing in place as prescribed Yes Has compression in place as prescribed Yes Has offloadiing in place as prescribed N/A Experienced any changes in pain level or No management Left Footwear Regular Shoe Right Footwear Regular Shoe Pain Scale: 0-10 Numeric Is Patient Pain Free? Yes Yes Yes 06/01/25 06/08/25 06/15/25 09:52 09:33 09:10 - Today's Visit Information Type of service Follow-up Visit Follow-up Visit Follow-up Visit (Physician/HEAD OF MATHEMATICS (Physician/HEAD OF MATHEMATICS (Physician/HEAD OF MATHEMATICS ) ) ) Arrival Mode Ambulatory Ambulatory Ambulatory Transfer Assistance None None Patient Identification Verified (Name & Yes Yes Yes ) Patient Requires Transmission-Based No No Precautions Vital Signs Temperature (97.8 F-99.1 F) 96.7 F L 96.3 F L 96.8 F L Temperature Source Temporal Temporal Temporal Pulse Rate (60-100) 60 66 77 Pulse Location Monitor Monitor Monitor Respiratory Rate (12-18) 18 18 18 Respiratory rate source Observation Observation Observation Oxygen Delivery Method Room Air Blood Pressure (90/60-120/80) 119/71 141/74 H 144/70 H Blood Pressure Mean (mm Hg) 87 96 94 Source Monitor Monitor Monitor Position Semi-Fowlers Blood Pressure Location Right Arm History Since Last Visit- (Skip if this is Patient's initial visit) Have you changed medications since your No No No last visit? Any new allergies or adverse reactions No No No Had a fall/change in ADL's that may No No No increase risk of falls Signs or symptoms of abuse and/or No No No neglect since last visit Have you been in the hospital since your No No No last visit? Has dressing in place as prescribed Yes Yes Yes Has compression in place as prescribed Yes Yes Yes Has offloadiing in place as prescribed Yes N/A N/A Experienced any changes in pain level or No No No management Left Footwear Regular Shoe Regular Shoe Right Footwear Regular Shoe Regular Shoe Pain Scale: 0-10 Numeric Is Patient Pain Free? Yes Yes Yes - Nurse 1 - General Ulcer Measurement Start: 05/22/25 09:37 Freq: Status: Active Protocol: Activity Type Activity Date Activity User E-sign Co-sign Detail Recorded Client Recorded Date Recorded By Document 05/22/25 09:38 JF [id number] 05/22/25 09:39 JF Document 05/25/25 09:44 DL [id number] 05/25/25 09:52 DL Document 05/29/25 11:31 JF [id number] 05/29/25 11:34 JF Document 06/01/25 09:52 DL [id number] 06/01/25 10:02 DL Document 06/08/25 09:33 KW [id number] 06/08/25 09:42 KW Document 06/15/25 09:10 DL [id number] 06/15/25 09:18 DL 05/22/25 05/25/25 05/29/25 09:38 09:44 11:31 Wound Center Nurse 1 #1 L Med Ankle CLUSTER -Combined with other wound No -Current Size (cm) - Length 6 5.0 -Current Size (cm) - Width 1.8 1.8 -Current Size (cm) - Depth 0.1 0.2 -Total Square Cm 10.8 9.00 -Date of Last Picture (Recall this field) -Photo Taken Yes No -Epithelialization Small 1-33% -Tunneling No -Undermining/Tunneling No -Circular Undermining No -Exudate Amt Medium Small -Exudate Type Serosanguineous Serosanguineous -Wound Margin Thickened Flat & Intact -Granulation Amt Medium (34-66%) Large (67-100%) -Granulation Quality Red Maybeury -Slough/Fibrin Yes -Necrosis Amt Medium (34-66%) Small (1-33%) -Necrotic Tissue Type Adherent Slough Adherent Slough -Structure Exposed N/A N/A -Texture (Megan-wound Skin Appearance) Scarring Assessed, Localized Edema -Moisture (Megan-wound Skin Appearance) No Abnormality Assessed,Dry/ Scaly -Color (Megan-wound Skin Appearance) No Abnormality Assessed, Hemosiderin Staining -Temperature (Megan-wound Skin No Abnormality No Abnormality Appearance) (Pt Warm) (Pt Warm) -Tenderness on Palpation (Megan-wound No Skin Appearance) -Ulcer Cleansing Soap and Water DAKIN'S -Foul Odor after Cleansing No No -Anesthetic Used 5% Lidocaine Gel Lower Limb Edema Present NA Yes Left Calf (cm) 37.2 Left Ankle (cm) 38.9 06/01/25 06/08/25 06/15/25 09:52 09:33 09:10 Wound Center Nurse 1 #1 L Med Ankle CLUSTER -Combined with other wound -Current Size (cm) - Length 4 2 6 -Current Size (cm) - Width 1.3 5.5 1.7 -Current Size (cm) - Depth 0.1 0.2 0.1 -Total Square Cm 5.2 11.0 10.2 -Date of Last Picture (Recall this 06/08/25 field) -Photo Taken Yes Yes -Epithelialization -Tunneling -Undermining/Tunneling -Circular Undermining -Exudate Amt Medium Large Medium -Exudate Type Serosanguineous Serosanguineous Serosanguineous -Wound Margin Distinct, Distinct, Distinct, Outline Outline Outline Attached Attached Attached -Granulation Amt Large (67-100%) Large (67-100%) Medium (34-66%) -Granulation Quality Maybeury Red Maybeury,Red -Slough/Fibrin -Necrosis Amt Small (1-33%) Small (1-33%) Medium (34-66%) -Necrotic Tissue Type Adherent Slough Adherent Slough Adherent Slough -Structure Exposed N/A N/A -Texture (Megan-wound Skin Appearance) Scarring Assessed Scarring -Moisture (Megan-wound Skin Appearance) Dry/Scaly Assessed, Dry/Scaly Maceration -Color (Megan-wound Skin Appearance) Hemosiderin Assessed, No Abnormality Staining Erythema -Temperature (Megan-wound Skin No Abnormality No Abnormality No Abnormality Appearance) (Pt Warm) (Pt Warm) (Pt Warm) -Tenderness on Palpation (Megan-wound No No No Skin Appearance) -Ulcer Cleansing Soap and Water Soap and Water Soap and Water -Foul Odor after Cleansing No No -Anesthetic Used 5% Lidocaine 5% Lidocaine 5% Lidocaine Gel Gel Gel Lower Limb Edema Present Left Calf (cm) 41.5 39.5 Left Ankle (cm) 22.7 23 WC - Nurse 2 - General Ulcer CM Notes Start: 05/22/25 09:37 Freq: Status: Active Protocol: Activity Type Activity Date Activity User E-sign Co-sign Detail Recorded Client Recorded Date Recorded By Document 05/25/25 10:32 DS [id number] 05/25/25 10:34 DS Document 06/01/25 10:08 BMF [id number] 06/01/25 10:19 BMF Document 06/08/25 10:08 BMF [id number] 06/08/25 10:17 BMF Document 06/15/25 09:22 BMF [id number] 06/15/25 09:31 BMF 05/25/25 06/01/25 06/08/25 10:32 10:08 10:08 Wound Center Nurse 2 #1 L Med Ankle CLUSTER -Time 10:33 10:08 10:08 -Correct Patient Yes Yes Yes -Correct Side, Site, Position Yes Yes Yes -Correct Procedure Yes Yes Yes -Procedure Performed Yes Yes Yes -Type of Procedure Debridement Debridement Debridement -Clinical Debridement Subcutaneous Subcutaneous Subcutaneous -Tissue Removed Subcutaneous Subcutaneous Subcutaneous -Post Debridement (cm) - Length 4.5 4.9 4.6 -Post Debridement (cm) - Width 2.2 2 1.9 -Post Debridement (cm) - Depth 0.1 0.1 0.1 -Total Square (Post) (cm) 9.90 9.8 8.74 -Area of Debridement (cm) - Length 4.5 4.9 4.6 -Area of Debridement (cm) - Width 2.2 2 1.9 -Total Square (Area) (cm) 9.90 9.8 8.74 -Tunneling No No No -Undermining/Tunneling No No No -Circular Undermining No No No -Wound/Ulcer Outcome Not Healed Not Healed Not Healed -Ulcer Cleansing Rinsed/ Rinsed/ Rinsed/ Irrigated with Irrigated with Irrigated with Saline Saline Saline -Foul Odor after Cleansing No No No -Bioengineered Tissue No Yes Yes -Type of Bioengineered Tissue Epifix Mesh Epifix Mesh -Expiration Date 10/19/29 10/19/29 -Product Lot Number [id number] -Percent Used 100 100 -Lot number of Saline Used [id number] -Bleeding Controlled with Pressure Pressure Pressure -Treatment Response Procedure Procedure Procedure Tolerated Well Tolerated Well Tolerated Well -Debridement - Subq, 1st 20sq cm Yes No No -Apply Skin Sub - 1st 25 sq cm - Legs 1 1 -Epifix Mesh Application 1-4 (per sq 11 11 cm) Pain Scale: 0-10 Numeric Is Patient Pain Free? Yes Yes Yes 06/15/25 09:22 Wound Center Nurse 2 #1 L Med Ankle CLUSTER -Time 09:22 -Correct Patient Yes -Correct Side, Site, Position Yes -Correct Procedure Yes -Procedure Performed Yes -Type of Procedure Debridement -Clinical Debridement Subcutaneous -Tissue Removed Subcutaneous -Post Debridement (cm) - Length 4.4 -Post Debridement (cm) - Width 1.5 -Post Debridement (cm) - Depth 0.1 -Total Square (Post) (cm) 6.60 -Area of Debridement (cm) - Length 4.4 -Area of Debridement (cm) - Width 1.5 -Total Square (Area) (cm) 6.60 -Tunneling No -Undermining/Tunneling No -Circular Undermining No -Wound/Ulcer Outcome Not Healed -Ulcer Cleansing Rinsed/ Irrigated with Saline -Foul Odor after Cleansing No -Bioengineered Tissue Yes -Type of Bioengineered Tissue Epifix Mesh -Expiration Date 10/19/29 -Product Lot Number [id number] -Percent Used 100 -Lot number of Saline Used [id number] -Bleeding Controlled with Pressure -Treatment Response Procedure Tolerated Well -Debridement - Subq, 1st 20sq cm No -Apply Skin Sub - 1st 25 sq cm - Legs 1 -Epifix Mesh Application 1-4 (per sq 11 cm) Pain Scale: 0-10 Numeric Is Patient Pain Free? Yes - Nurse 3 - General Ulcer D/C NN Start: 05/22/25 09:37 Freq: Status: Active Protocol: Activity Type Activity Date Activity User E-sign Co-sign Detail Recorded Client Recorded Date Recorded By Document 05/22/25 09:38 [id number] 05/22/25 09:39 Document 05/25/25 10:58 DL [id number] 05/25/25 11:00 DL Document 05/29/25 11:31 JF [id number] 05/29/25 11:34 JF Document 06/01/25 10:29 MT [id number] 06/01/25 10:37 MT Document 06/08/25 10:25 DL [id number] 06/08/25 10:27 DL Document 06/15/25 09:38 [facility] [id number] 06/15/25 09:39 [facility] 05/22/25 05/25/25 05/29/25 09:38 10:58 11:31 Pain Scale: 0-10 Numeric Is Patient Pain Free? Yes Yes Yes Wound Care Center Nurse 3 #1 L Med Ankle CLUSTER -Ulcer Cleansing Rinsed/ dakins Irrigated with Saline -Foul Odor after Cleansing No -Negative Pressure Wound Therapy -Foam Supply Charges Patient Supplied Dressing -Primary Dressing Applied Aquacel Extra, NonAdherent Contact Layer, Promogran Abran Matter -Other Dressing Unna ABRAN/ADAPTIC AND AQUACEL EXTRA -Primary Dressing Covered/Secured with Dry Gauze & Dry Gauze Roll Gauze -Aquacel Extra 1 -Promogran Abran Matter 1 -Wound Comment(s) use patient's own supply of abran and aqaucel extra LLE -Multi-Layered Wrap Application Unna Boot - Unna Boot - Unna Boot - Left Left Left -Tubular Bandage -Size of Tubigrip Used -Size D ($) -Stockings -Unna- Left (Qty applied) 1 1 1 Treatment Response Procedure Tolerated Well WC - Visit Discharge Discharge Condition Stable Stable Stable Ambulatory Status Ambulatory Ambulatory Ambulatory Transportation Private Auto Private Auto Private Auto Medication Reconcilliation completed & Yes Yes provided to patient/care provider Clinical Summary of Care Provided Yes Yes Notes: 06/01/25 06/08/25 06/15/25 10:29 10:25 09:38 Pain Scale: 0-10 Numeric Is Patient Pain Free? Yes Yes Yes Wound Care Center Nurse 3 #1 L Med Ankle CLUSTER -Ulcer Cleansing -Foul Odor after Cleansing No No -Negative Pressure Wound Therapy N/A -Foam Supply Charges -Primary Dressing Applied Aquacel Extra Aquacel Extra -Other Dressing Aqaucel EX/ abd Epimesh -Primary Dressing Covered/Secured with Dry Gauze,Dry Dry Gauze & Dry Gauze & Gauze & Roll Roll Gauze, Roll Gauze, Gauze,Secured Secured with Secured with with Tape Tape Tape -Aquacel Extra 1 1 -Promogran Abran Matter -Wound Comment(s) LLE -Multi-Layered Wrap Application -Tubular Bandage Double Layer Double Layer -Size of Tubigrip Used Size D Size D Size D -Size D ($) 2 2 -Stockings No -Unna- Left (Qty applied) Treatment Response WC - Visit Discharge Discharge Condition Stable Stable Stable Ambulatory Status Ambulatory Ambulatory Ambulatory Transportation Private Auto Private Auto Private Auto Medication Reconcilliation completed & No provided to patient/care provider Clinical Summary of Care Provided Yes Notes: explained the new wound orders to the patient. the pt seemed very confused about dressing change if it get soiled. i went over the new orders line by line with the pt. i also instructed the pt to call if he had any issues. Assessment/Plan Assessment/Plan (1) Non-pressure chronic ulcer of left calf with fat layer exposed: CODE(S): L97.222 - Non-pressure chronic ulcer of left calf with fat layer exposed (2) Cellulitis of left lower limb: CODE(S): L03.116 - Cellulitis of left lower limb (3) Venous insufficiency (chronic) (peripheral): CODE(S): I87.2 - Venous insufficiency (chronic) (peripheral) (4) Bilateral lower extremity edema: CODE(S): R60.0 - Localized edema (5) 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: CODE(S): I83.003 - Varicose veins of unspecified lower extremity with ulcer of ankle; L97.302 - Non-pressure chronic ulcer of unspecified ankle with fat layer exposed QUALIFIERS: Varicose vein presence: with varicose veins Laterality: left Qualified Code(s): I83.023 - Varicose veins of left lower extremity with ulcer of ankle; L97.322 - Non-pressure chronic ulcer of left ankle with fat layer exposed PLAN: Plan Patient seen and evaluated Predebridement measurement 4.3 cm x 1.4 cm x 0.1 cm Postdebridement measurement 4.4 cm x 1.5 cm x 0.1 cm Ulceration site did undergo debridement as noted in the clinical panel above. Localized erythema from 06/01/25 has improved on oral antibiotic and Dakin's wash. Following debridement, EpiFix graft #3 ([id number]) was applied to the ulcerative bed. No signs of infection or ulcerative bed at graft placement. Site was then dressed with wound veil and anchored with Steri-Strips. Aquacel extra applied over graft site and dressed with dry sterile dressing. Double Tubigrip stocking applied for compression. There is decreased in size of ulceration in terms of length and width versus previous visit with edema improved and maintained on Lasix. Swab culture was obtained of the site 05/18/2025. Results demonstrate strep agalactiae and Serratia marcescens. Due to positive cultures following his Dakin's wash he was prescribed doxycycline 100 mg twice daily x 14 days and ciprofloxacin 500 mg twice daily x 14 days (stop date 06/08/2025). There has been improvement in the appearance of the wound he has finished antibiotic to completion. Stat Doppler for 02/16/2025 was negative for DVT. He did undergo repeat venous study 03/14/25 and underwent venous ablation on April 13. He was again instructed on continued elevation of the lower extremities to aid in edema control. Following healing of ulcerative site he will return to compression stockings however this time we will increase from 20 to 30 mmHg to 30 to 40 mmHg versus application of juxta lite compression. Juxta lite compression wrap was applied for 02/16/2025, awaiting approval. He has been approved for advanced wound care product, EpiFix for application. He is following with Dr. Mckee for procedure to aid in his venous ins ufficiency. Procedure performed 04/13/25. Recent visit with Dr. Mckee 04/26/2025. Discussed continued diet to aid in healing with adequate protein intake. Discussed signs and symptoms of infection. Discussed if he notices any increasing redness around the ulcerative site that is moved up the leg, purulent drainage from the ulcerative site, increasing foul odor from the ulcerative site, or if he develops fever greater than 101 degree accompanied by nausea, vomiting, chills of these are signs of a progressing infection and he should report to the ED for IV antibiotics and further evaluation. He is understanding of this today. The following work up and care recommendations were made: Dressing: EpiFix, wound veil, Steri-Strips, Aquacel extra, dry sterile dressing, Tubigrip compression. He will change outer dressing as needed. Will continue compression stocking to right lower extremity Wash: Do not get wet left lower extremity Tissue growth optimization: EpiFix Offload: Tubigrip compression Vascular: Does have history of positive venous insufficiency/reflux. Underwent procedure 04/13/2025 as above. Edema: Tubigrip compression and elevation of the lower extremities Infection: No signs of infection Pain: May take [id number] Tylenol Extra Strength for discomfort Host factors: Chronic venous insufficiency, chronic lower extremity edema, prolonged standing/activity, advanced age complicate healing. I answered all the patient's questions. To return to the wound healing center in 1 week or call sooner if the patient has any questions or concerns.
--- NOTE | 2025-06-16 08:45 | WC ---
PHOTO-LEFT MED ANKLE CLUSTER 06/15/25
--- NOTE | 2025-06-16 08:45 | WC ---
PHOTO-LEFT MED ANKLE CLUSTER 06/15/25
== END 2025-06-18 23:59 | disposition home or self-care (01) ==
LOC: WC 09:15
PROVIDERS: PCP Family Medicine; Referring Provider Family Medicine; Visit Provider Student in an Organized Health Care Education/Training Program
DX: I83.023 Varicose veins of left lower extremity with ulcer of ankle (principal); L97.222 Non-pressure chronic ulcer of left calf with fat layer exposed; L97.322 Non-pressure chronic ulcer of left ankle with fat layer exposed; I87.2 Venous insufficiency (chronic) (peripheral); Z86.718 Personal history of other venous thrombosis and embolism; R60.0 Localized edema; L03.116 Cellulitis of left lower limb
CPT/HCPCS: 11042; 15271; 29580; Q4186

== ENCOUNTER 2025-07-11 13:53 | Outpatient (CLI) | payer MEDICARE, OTHER, SELFPAY ==
[2025-07-11 14:20] VITALS: BP 114/49; PULSE 72; RESP 16; TEMP 36.5; O2SAT 97; BMI 29.1
== END 2025-07-11 23:59 | disposition home or self-care (01) ==
PROVIDERS: PCP Family Medicine; Referring Provider Nurse Practitioner Acute Care; Visit Provider Nurse Practitioner Acute Care
DX: J45.50 Severe persistent asthma, uncomplicated (principal)
CPT/HCPCS: J0517

== ENCOUNTER 2025-07-18 11:00 | Outpatient (RCR) | payer MEDICARE, OTHER, SELFPAY ==
[2025-06-22 09:04] VITALS: BP 125/75; PULSE 68; RESP 16; TEMP 36.6
[2025-06-29 09:06] VITALS: BP 134/76; PULSE 64; RESP 16; TEMP 36.1
[2025-07-06 09:06] VITALS: BP 135/71; PULSE 72; RESP 18; TEMP 36.3
[2025-07-13 08:50] VITALS: BP 139/78; PULSE 67; RESP 18; TEMP 36
[2025-07-18 11:16] VITALS: BP 144/61; PULSE 79; RESP 18; TEMP 36.3
== END 2025-07-18 23:59 | disposition home or self-care (01) ==
LOC: WC 11:00
PROVIDERS: PCP Family Medicine; Referring Provider Family Medicine; Visit Provider Surgery
DX: I83.023 Varicose veins of left lower extremity with ulcer of ankle (principal); J45.51 Severe persistent asthma with (acute) exacerbation; L97.322 Non-pressure chronic ulcer of left ankle with fat layer exposed; L98.491 Non-pressure chronic ulcer of skin of other sites limited to breakdown of skin; G47.33 Obstructive sleep apnea (adult) (pediatric); K90.0 Celiac disease; Z86.718 Personal history of other venous thrombosis and embolism; I87.2 Venous insufficiency (chronic) (peripheral); K21.9 Gastro-esophageal reflux disease without esophagitis; R60.0 Localized edema; G25.81 Restless legs syndrome; E66.9 Obesity, unspecified; Z87.891 Personal history of nicotine dependence; M85.80 Other specified disorders of bone density and structure, unspecified site; T14.8XXD Other injury of unspecified body region, subsequent encounter; Z98.890 Other specified postprocedural states; Z90.49 Acquired absence of other specified parts of digestive tract
CPT/HCPCS: 11042; 15271; Q4186

== ENCOUNTER 2025-08-18 12:00 | Outpatient (RCR) | payer MEDICARE, OTHER, SELFPAY ==
--- NOTE | 2025-07-24 09:50 | VDLE_ITS ---
Reason For Study Reason For Study: Chronic Venous Insufficiency RIGHT LEFT CFV is compressible, spontaneous, phasic, competent SFJ is INCOMPETENT and measures 0.87 cm. and demonstrates normal augmentation. GSV is NONCOMPRESSIBLE prox thigh to distal calf w/ FV is compressible, spontaneous, phasic, competent hyperechoic intraluminal echoes. Finding is and demonstrates normal augmentation. consistent with HX Chemical ablation. POP V is compressible, phasic, and INCOMPETENT for Prox thigh ASV and anterior knee ASV appear greater than 1.0 second. compressible with normal augmentation. T/P Trunk is compressible. CFV is compressible, spontaneous, phasic, competent, PTV is compressible. and demonstrates normal augmentation. RT PerV is compressible. Lt FV is partially compressible with bright SFJ is INCOMPETENT and measures 0.72 cm. intraluminal echoes consistent with chronic DVT and GSV proximal thigh measures 0.44 x 0.52 cm. INCOMPETENT for greater than 1.0 second GSV at knee measures 0.30 x 0.35 cm. Lt PopV is partially compressible with bright GSV INCOMPETENT throughout for greater than 0.5 intraluminal echoes consistent with chronic DVT and seconds. INCOMPETENT for greater than 1.0 second. SSV mid calf is competent and measures 0.36 x 0.40 T/P Trunk is compressible. cm. PTV is compressible. ASV mid calf is INCOMPETENT for greater than 0.5 LT PerV is compressible. seconds and measures 0.29 x 0.31 cm. Procedure This is a venous duplex using B-mode, color flow and spectral Doppler. Exam performed in department. The exam was diagnostic. Patient was scanned in reverse Trendelenburg position during reflux assessment. VL/Venous Duplex US - Jose Daniel Extrem Interpretation Summary Deep veins of the right lower extremity are patent and compressible segmentally . There is no evidence of right lower extremity deep vein thrombosis. The right popliteal vein is incompetent. The le ft common femoral vein is patent and competent. Chronic venous changes are noted in the left femoral vein and poplit eal vein, which are partially compressible, incompetent, and demonstrate partial compressibilty. The deep vei ns of the left calf are patent and compressible. The right great saphenous vein is patent and compressible. The le ft great saphenous vein appears to be ablated from the proximal thigh to the distal calf. Sapheno-femoral junctions a re incompetent bilaterally. The right great saphenous vein is incompetent segmentally. Small saphenous veins appear p atent and competent bilaterally. The accessory saphenous vein in the right mid-calf is incompetent. Accessory saphen ous veins in the left proximal thigh and anterior knee appear patent and compressible. Ordering Physician: Jose L Nagel Referring Physician: Keven Joseph Performed By: Joss Harden RVT and Student
[2025-07-25 09:26] VITALS: BP 142/69; PULSE 64; RESP 18; TEMP 35.8
--- NOTE | 2025-07-28 10:47 | PCM.WC.HP ---
History of Present Illness Date of Service: 07/25/25 Chief Complaint: Left medial ankle venous stasis ulceration History of Wound: This patient is a 79-year-old male who presented to the Wound Center with a recurring left lower extremity medial ankle ulceration. He has PMHx of recurring left lower extremity ulcerations secondary to chronic venous insufficiency, history of DVT, obesity, JOSHUA, iron deficient anemia, delayed wound healing, and asthma. He states that he does have compression stockings and continues to wear them. He had been following in the Wound Center for a deep ulceration to the medial aspect of the left lower extremity overlying the neurovascular bundle. He did go on to heal this ulceration as of 12/31/[address] Mckee for venogram. He has continued wearing compression stockings however states that while in the shower he did notice a scab of the left medial ankle and after showering applied antibiotic ointment and Band-Aid which later then the scab became soft and opened a small wound. He states that he did see his PCP who did obtain cultures and placed him on oral antibiotic. He was then referred to the Wound Center for further follow-up. He denies any further trauma to the site. States that the specific site is recurrent with breakdown of skin. Denied N/V/F/chills. No further complaints. FORMERLY [facility] Medical History Venous hypertension, chronic, with ulcer Venous stasis dermatitis Localized swelling of both lower legs Bilateral leg edema 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 Venous stasis ulcer JOSHUA (obstructive sleep apnea) History of back problems Fatigue Weight loss Lab test positive for detection of COVID-19 virus (~04/2020) Left femoral shaft fracture Osteopenia 2012 femur fracture [facility] DVT (deep venous thrombosis) Restless leg syndrome Iron deficiency anemia GERD (gastroesophageal reflux disease) Celiac disease Asthma Home Medications Medication Instructions Recorded Last Taken Type pantoprazole 40 mg tablet,delayed 40 mg PO QHS gerd 04/03/14 07/15/17 History release tamsulosin 0.4 mg capsule 0.4 mg PO QHS Enlarged prostate 07/12/17 01/06/24 History ergocalciferol (vitamin D2) 1,250 50,000 unit PO WE 10/21/19 Unknown History mcg (50,000 unit) capsule levothyroxine 50 mcg tablet 100 mcg PO DAILY 03/21/22 01/06/24 History fluticasone propionate 50 2 spray NASAL BID PRN Congestion 03/25/22 Unknown Rx mcg/actuation nasal #16 grams spray,suspension pramipexole 1.5 mg tablet 1.5 mg PO DAILY 11/25/23 Unknown History finasteride 5 mg tablet 5 mg PO DAILY 01/05/24 Unknown History bimatoprost 0.03 % eye drops 1 drp ophthalmic (eye) QDAY 10/04/24 Unknown History denosumab 60 mg/mL subcutaneous 60 mg subcut [id number] 10/04/24 Unknown History syringe (Prolia) diclofenac potassium 50 mg tablet 50 mg PO TID PRN pain 10/04/24 Unknown History fluticasone 232 mcg-salmeterol 14 1 inh inhalation BID #1 ea 10/04/24 Unknown Rx mcg/actuation breath activated powdr ferrous gluconate 324 mg (37.5 mg 324 mg PO BID #60 tabs 12/07/24 Unknown Rx iron) tablet albuterol sulfate 90 mcg/actuation 2 inh inhalation Q4-6H PRN 03/28/25 Unknown Rx aerosol inhaler shortness of breath or wheezing #8.5 grams donepezil 5 mg tablet 5 mg PO QHS 03/28/25 Unknown History furosemide 40 mg tablet (Lasix) 40 mg PO DAILY 05/16/25 Unknown History benralizumab 30 mg/mL subcutaneous 30 mg subcut .Q8w 07/11/25 Unknown History syringe (Fasenra) Allergy/AdvReac Type Severity Reaction Status Date / Time gluten AdvReac Other Verified 07/11/25 14:19 Family History Father prostate cancer Surgical History History of colonoscopy (~09/24/20) History of hernia repair History of spinal surgery (~2017) History of repair of hip fracture History of cholecystectomy colonoscopy Social History Smoking Status: Former smoker alcohol intake: never substance use type: does not use Physical Exam Const alert, oriented x3, no apparent distress, no limitations and well nourished General Appearance: cooperative, comfortable, well kempt and well developed Orientation / Consciousness: awake, oriented to person, oriented to place and oriented to time Exam Limitations: no limitations HEENT normocephalic and head/scalp atraumatic Head and Scalp: normal to inspection, normocephalic and atraumatic Face and Sinus: normal facial exam Nose: external nose normal External Ear: external ears normal Eyes EOMs intact bilaterally General Eye: normal appearance of both eyes Neck full ROM Resp normal respiratory effort, normal air movement, no retractions and no use of accessory muscles Effort and Inspection: able to speak in complete sentences Extremity no calf tenderness General Extremity: Negative for clubbing or cyanosis Skin Wound Narrative: The left medial malleolus venous ulceration appears much improved. The megan-ulcer erythema is diminished. No significant swelling is noted in the patient's left lower extremity. [place]ley phlebectatica is noted near the left medial malleolus and medial foot. Hyperpigmentation and lipodermatosclerosis are noted in the left gaiter area. The ulceration is full-thickness, extending through all layers of the dermis and into the subcutaneous tissues. A small amount of slough and devitalized tissue are present. The ulceration is clustered. Ulcer margins are well beveled. Infection and cellulitis are not evident. Dimensions are documented elsewhere. The scaly venous stasis dermatitis in the left gaiter area is improved. Neuro oriented x3, CN's II-XII intact bilaterally, moves all extremities, no focal motor deficits and no sensory deficits noted Sensorium / Orientation: awake, alert, oriented to person, oriented to place and oriented to time Speech: speech normal Psych mental status grossly normal Appearance: grossly normal and appropriate Attitude: calm Activity / Motor Behavior: appropriate eye contact Speech: normal speech Mood & Affect: euthymic mood Thought Process: normal thought process Thought Content: normal thought content Attention / Concentration: attention grossly intact Debridement Note Debridement Note Wound debrided: Venous ulceration of the left medial malleolus Laterality: Left Type of Debridement: Excisional debridement Anesthesia Used: 5% Lidocaine Gel Depth: Down to and including healthy tissue and in the subcutaneous layer Percentage of wound debrided: 100 Instrument Used: 5mm curette Tissue Removed: Slough and devitalized tissue Severity: Fat Layer Exposed Amount of bleeding with debridement: Mild Bleeding Controlled with: Compression and gauze Patient tolerated procedure: Patient tolerated procedure well Debridement Free Text: Following an excisional debridement, which was well-tolerated, the decision was made to proceed with the placement of an allograft. According to the dimensions of the patient's ulceration, a 4 cm x 4.5 cm EpiMesh allograft was selected. The allograft was removed from its sterile packaging, and fashioned to the appropriate dimensions. It was then applied topically to the ulceration. 75% of the allograft was utilized. Once in place, the site was covered with Adaptic Touch, which was then secured in place with Steri-Strips. Collagen hydrogel was then placed over the site to provide a moist wound healing environment. A dry sterile gauze dressing was then applied. This represents the 8th such application of an allograft at this site. Post-Debridement Measurements and Additional Note: Post-Debridement Measurements/Treatment - Nurse 1 - General Ulcer Assessment Start: 07/25/25 09:26 Freq: Status: Active Protocol: LA NENA.LOWSANJANAT Activity Type Activity Date Activity User E-sign Co-sign Detail Recorded Client Recorded Date Recorded By Document 07/25/25 09:26 [id number] 07/25/25 09:28 RB 07/25/25 09:26 - Today's Visit Information Type of service Follow-up Visit (Physician/WET ROLLER ) Arrival Mode Ambulatory Transfer Assistance None Patient Identification Verified (Name & Yes ) Patient Requires Transmission-Based No Precautions Vital Signs Temperature (97.8 F-99.1 F) 96.5 F L Temperature Source Temporal Pulse Rate (60-100) 64 Pulse Location Monitor Respiratory Rate (12-18) 18 Respiratory rate source Observation Blood Pressure (90/60-120/80) 142/69 H Blood Pressure Mean 93 Source Monitor Position Semi-Fowlers Blood Pressure Location Left Arm History Since Last Visit- (Skip if this is Patient's initial visit) Have you changed medications since your No last visit? Any new allergies or adverse reactions No Had a fall/change in ADL's that may No increase risk of falls Signs or symptoms of abuse and/or No neglect since last visit Have you been in the hospital since your No last visit? Has dressing in place as prescribed Yes Has compression in place as prescribed Yes Has offloadiing in place as prescribed N/A Experienced any changes in pain level or No management Pain Scale: 0-10 Numeric Is Patient Pain Free? Yes - Nurse 1 - General Ulcer Measurement Start: 07/25/25 09:26 Freq: Status: Active Protocol: Activity Type Activity Date Activity User E-sign Co-sign Detail Recorded Client Recorded Date Recorded By Document 07/25/25 09:26 RB [id number] 07/25/25 09:28 RB 07/25/25 09:26 Wound Center Nurse 1 #1 L Med Ankle CLUSTER -Combined with other wound No -Current Size (cm) - Length 4.4 -Current Size (cm) - Width 1.5 -Current Size (cm) - Depth 0.1 -Total Square Cm 6.60 -Photo Taken Yes -Tunneling No -Undermining/Tunneling No -Circular Undermining No -Exudate Amt Medium -Exudate Type Serosanguineous -Wound Margin Distinct, Outline Attached -Granulation Amt Medium (34-66%) -Granulation Quality [place] -Slough/Fibrin Yes -Necrosis Amt Large (67-100%) -Necrotic Tissue Type Adherent Slough -Structure Exposed N/A -Texture (Megan-wound Skin Appearance) Excoriation -Moisture (Megan-wound Skin Appearance) Assessed -Color (Megan-wound Skin Appearance) Assessed -Temperature (Megan-wound Skin No Abnormality Appearance) (Pt Warm) -Tenderness on Palpation (Megan-wound No Skin Appearance) -Ulcer Cleansing Wound Cleanser -Foul Odor after Cleansing No -Anesthetic Used 5% Lidocaine Gel Lower Limb Edema Present Yes Left Calf (cm) 43 Left Ankle (cm) 24.5 WC - Nurse 2 - General Ulcer CM Notes Start: 07/25/25 09:26 Freq: Status: Active Protocol: Activity Type Activity Date Activity User E-sign Co-sign Detail Recorded Client Recorded Date Recorded By Document 07/25/25 09:45 DS [id number] 07/25/25 09:55 DS Edit Result 07/25/25 09:45 DS (1) [id number] 07/25/25 09:59 DS (1) #1 L Med Ankle CLUSTER - Percent Used 100 => 75 07/25/25 09:45 Wound Center Nurse 2 #1 L Med Ankle CLUSTER -Time 09:45 -Correct Patient Yes -Correct Side, Site, Position Yes -Correct Procedure Yes -Procedure Performed Yes -Type of Procedure Debridement -Clinical Debridement Subcutaneous -Tissue Removed Subcutaneous -Post Debridement (cm) - Length 4.2 -Post Debridement (cm) - Width 1.3 -Post Debridement (cm) - Depth 0.1 -Total Square (Post) (cm) 5.46 -Area of Debridement (cm) - Length 4.2 -Area of Debridement (cm) - Width 1.3 -Total Square (Area) (cm) 5.46 -Tunneling No -Undermining/Tunneling No -Circular Undermining No -Wound/Ulcer Outcome Not Healed -Ulcer Cleansing gauze -Foul Odor after Cleansing No -Bioengineered Tissue Yes -Type of Bioengineered Tissue Epifix Mesh -Expiration Date 01/17/30 -Product Lot Number [id number] -Percent Used 75 -Lot number of Saline Used [id number] -Bleeding Controlled with Pressure -Treatment Response Procedure Tolerated Well -Debridement - Subq, 1st 20sq cm No -Apply Skin Sub - 1st 25 sq cm - Legs 1 -Epifix Mesh Application 1-4 (per sq 11 cm) Pain Scale: 0-10 Numeric Is Patient Pain Free? Yes - Nurse 3 - General Ulcer D/C NN Start: 07/25/25 09:26 Freq: Status: Active Protocol: Activity Type Activity Date Activity User E-sign Co-sign Detail Recorded Client Recorded Date Recorded By Document 07/25/25 10:09 MARRY [id number] 07/25/25 10:11 MARRY 07/25/25 10:09 Wound Care Center Nurse 3 #1 L Med Ankle CLUSTER -Ulcer Cleansing Rinsed/ Irrigated with Saline -Primary Dressing Covered/Secured with Dry Gauze & Roll Gauze, Secured with Tape LLE -Tubular Bandage Double Layer -Size of Tubigrip Used Size D -Size D ($) 2 Pain Scale: 0-10 Numeric Is Patient Pain Free? Yes - Visit Discharge Discharge Condition Stable Ambulatory Status Ambulatory Transportation Private Auto Medication Reconcilliation completed & No provided to patient/care provider Clinical Summary of Care Provided No Charges/Coding Procedures Integumentary [id number]: [id number] Skin sub graft trnk/arm/leg Assessment/Plan Assessment/Plan (1) 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: CODE(S): I83.003 - Varicose veins of unspecified lower extremity with ulcer of ankle; L97.302 - Non-pressure chronic ulcer of unspecified ankle with fat layer exposed QUALIFIERS: Varicose vein presence: without varicose veins Laterality: left Qualified Code(s): I87.2 - Venous insufficiency (chronic) (peripheral); L97.322 - Non-pressure chronic ulcer of left ankle with fat layer exposed (2) Venous stasis ulcer: CODE(S): I83.009 - Varicose veins of unspecified lower extremity with ulcer of unspecified site; L97.909 - Non-pressure chronic ulcer of unspecified part of unspecified lower leg with unspecified severity QUALIFIERS: Venous stasis ulcer site: ankle Varicose vein presence: without varicose veins Laterality: left Non-pressure ulcer stage: with fat layer exposed Qualified Code(s): I87.2 - Venous insufficiency (chronic) (peripheral); L97.322 - Non-pressure chronic ulcer of left ankle with fat layer exposed (3) Ulcer of extremity due to chronic venous insufficiency: CODE(S): L98.499 - Non-pressure chronic ulcer of skin of other sites with unspecified severity; I87.2 - Venous insufficiency (chronic) (peripheral) (4) Venous insufficiency (chronic) (peripheral): CODE(S): I87.2 - Venous insufficiency (chronic) (peripheral) (5) Venous hypertension, chronic, with ulcer: CODE(S): I87.319 - Chronic venous hypertension (idiopathic) with ulcer of unspecified lower extremity; L97.909 - Non-pressure chronic ulcer of unspecified part of unspecified lower leg with unspecified severity (6) Venous stasis dermatitis: CODE(S): I87.2 - Venous insufficiency (chronic) (peripheral) (7) Bilateral leg edema: CODE(S): R60.0 - Localized edema (8) Localized swelling of both lower legs: CODE(S): R22.43 - Localized swelling, mass and lump, lower limb, bilateral (9) History of esophagogastroduodenoscopy (EGD): CODE(S): Z98.890 - Other specified postprocedural states (10) Delayed wound healing: CODE(S): T14.8XXD - Other injury of unspecified body region, subsequent encounter (11) History of cholecystectomy: CODE(S): Z90.49 - Acquired absence of other specified parts of digestive tract (12) History of repair of hip fracture: CODE(S): Z98.890 - Other specified postprocedural states (13) History of spinal surgery: CODE(S): Z98.890 - Other specified postprocedural states (14) History of hernia repair: CODE(S): Z98.890 - Other specified postprocedural states; Z87.19 - Personal history of other diseases of the digestive system (15) Bilateral lower extremity edema: CODE(S): R60.0 - Localized edema (16) JOSHUA (obstructive sleep apnea): CODE(S): G47.33 - Obstructive sleep apnea (adult) (pediatric) (17) Osteopenia: CODE(S): M85.80 - Other specified disorders of bone density and structure, unspecified site (18) Restless leg syndrome: (19) GERD (gastroesophageal reflux disease): CODE(S): K21.9 - Gastro-esophageal reflux disease without esophagitis QUALIFIERS: Esophagitis presence: esophagitis presence not specified Qualified Code(s): K21.9 - Gastro-esophageal reflux disease without esophagitis (20) Celiac disease: CODE(S): K90.0 - Celiac disease (21) Asthma: CODE(S): J45.909 - Unspecified asthma, uncomplicated QUALIFIERS: Asthma severity: severe Asthma persistence: persistent Asthma complication type: with acute exacerbation Qualified Code(s): J45.51 - Severe persistent asthma with (acute) exacerbation PLAN: Plan This is a 80-year-old male with a long history of chronic venous disease. He presented with an ulceration at the site of the left medial malleolus. There are stigmata of chronic venous disease, including venous stasis dermatitis, hyperpigmentation, swelling, etc. The patient has previously undergone chemical ablation of the left great saphenous vein in March 2025. A lengthy discussion has been undertaken with the patient regarding the appropriate conservative measures for outpatient management of his venous disease. The patient has been encouraged to continue sleeping on a flat surface at night. His legs are to be elevated during daytime hours as well, as much as possible. Leg elevation is to be to heart level, or higher. Prolonged idle sitting has been discouraged. Activity/ambulation has been encouraged. An EpiMesh allograft has been applied today, representing the 8th such allograft application. The allograft site is to be left intact and undisturbed until the patient's follow-up visit in 1 week. For compression, we are to continue double Tubigrips donned on a daily basis. The patient has been encouraged to apply fragrance-free skin moisturizer to the dermatitic skin in the left gaiter area. The patient underwent a venous duplex examination on July 24, 2025, which revealed chronic venous changes in the left femoral vein and left popliteal vein. 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 The left great saphenous vein appears to be ablated from the proximal thigh to the distal calf. These results have been discussed with the patient. It is felt that this patient with such chronic venous disease and manifestations may have venous outflow in the left lower extremity. Therefore, we are to request further evaluation by means of a venous duplex examination of the inferior vena cava and left iliac venous system. Furthermore, the patient may benefit from pneumatic mechanical compression pumps to assist in the venous outflow in the left lower extremity. Efforts will be made to procure these compression pumps for the patient. The patient will follow-up in 1 week for reevaluation. Total time: 28 minutes
[2025-08-01 11:37] VITALS: BP 146/77; PULSE 67; RESP 18; TEMP 36.6
--- NOTE | 2025-08-02 14:03 | WC ---
PHOTO-LEFT MED ANKLE CLUSTER 08/01/25
--- NOTE | 2025-08-02 14:04 | WC ---
PHOTO-LEFT MED ANKLE CLUSTER 08/01/25
--- NOTE | 2025-08-02 14:17 | WC ---
PHOTO-MED ANKLE CLUSTER 08/01/25
--- NOTE | 2025-08-03 14:49 | PCM.WC.HP ---
History of Present Illness Date of Service: 08/01/25 Chief Complaint: Left medial ankle venous stasis ulceration History of Wound: This patient is a 80-year-old male who presented to the Wound Center with a recurring left lower extremity medial ankle ulceration. He has PMHx of recurring left lower extremity ulcerations secondary to chronic venous insufficiency, history of DVT, obesity, JOSHUA, iron deficiency anemia, delayed wound healing, and asthma. He was diagnosed with deep vein thrombosis in the left lower extremity 25 years ago. He states that he does have compression stockings and continues to wear them. He had been following in the Wound Center for a deep ulceration to the medial aspect of the left lower extremity overlying the neurovascular bundle. He did go on to heal this ulceration as of 12/31/[address] Mckee for venogram. A left great saphenous vein chemical ablation was performed by Dr. Mckee on April 13, 2025. However, despite the procedure, the patient's condition has seemed to worsen, according to the patient. The patient has continued wearing compression stockings. However, he states that while in the shower he did notice a scab of the left medial ankle and after showering applied antibiotic ointment and Band-Aid which later the scab became soft and opened a small wound. He states that he did see his PCP who did obtain cultures and placed him on oral antibiotic. He was then referred to the Wound Center for further follow-up. He denies any further trauma to the site. He states that the specific site is recurrent with breakdown of skin. Denied N/V/F/chills. No further complaints. 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4 mg PO QHS Enlarged prostate 07/12/17 01/06/24 History ergocalciferol (vitamin D2) 1,250 50,000 unit PO WE 10/21/19 Unknown History mcg (50,000 unit) capsule levothyroxine 50 mcg tablet 100 mcg PO DAILY 03/21/22 01/06/24 History fluticasone propionate 50 2 spray NASAL BID PRN Congestion 03/25/22 Unknown Rx mcg/actuation nasal #16 grams spray,suspension pramipexole 1.5 mg tablet 1.5 mg PO DAILY 11/25/23 Unknown History finasteride 5 mg tablet 5 mg PO DAILY 01/05/24 Unknown History bimatoprost 0.03 % eye drops 1 drp ophthalmic (eye) QDAY 10/04/24 Unknown History denosumab 60 mg/mL subcutaneous 60 mg subcut [id number] 10/04/24 Unknown History syringe (Prolia) diclofenac potassium 50 mg tablet 50 mg PO TID PRN pain 10/04/24 Unknown History fluticasone 232 mcg-salmeterol 14 1 inh inhalation BID #1 ea 10/04/24 Unknown Rx mcg/actuation breath activated powdr ferrous gluconate 324 mg (37.5 mg 324 mg PO BID #60 tabs 12/07/24 Unknown Rx iron) tablet albuterol sulfate 90 mcg/actuation 2 inh inhalation Q4-6H PRN 03/28/25 Unknown Rx aerosol inhaler shortness of breath or wheezing #8.5 grams donepezil 5 mg tablet 5 mg PO QHS 03/28/25 Unknown History furosemide 40 mg tablet (Lasix) 40 mg PO DAILY 05/16/25 Unknown History benralizumab 30 mg/mL subcutaneous 30 mg subcut .Q8w 07/11/25 Unknown History syringe (Fasenra) Allergy/AdvReac Type Severity Reaction Status Date / Time gluten AdvReac Other Verified 08/01/25 09:38 Family History Father prostate cancer Surgical History History of colonoscopy (~09/24/20) History of hernia repair History of spinal surgery (~2017) History of repair of hip fracture History of cholecystectomy colonoscopy Social History Smoking Status: Former smoker alcohol intake: never substance use type: does not use Physical Exam Const alert, oriented x3, no apparent distress, no limitations and well nourished General Appearance: cooperative, comfortable, well kempt and well developed Orientation / Consciousness: awake, oriented to person, oriented to place and oriented to time Exam Limitations: no limitations HEENT normocephalic and head/scalp atraumatic Head and Scalp: normal to inspection, normocephalic and atraumatic Face and Sinus: normal facial exam Nose: external nose normal External Ear: external ears normal Eyes EOMs intact bilaterally General Eye: normal appearance of both eyes Neck full ROM Resp normal respiratory effort, normal air movement, no retractions and no use of accessory muscles Effort and Inspection: able to speak in complete sentences Extremity no calf tenderness General Extremity: Negative for clubbing or cyanosis Skin Wound Narrative: The left medial malleolus venous ulceration appears improved. The megan-ulcer erythema is diminished. The ulceration appears somewhat desiccated. No significant swelling is noted in the patient's left lower extremity. [place] phlebectatica is noted near the left medial malleolus and medial foot. Hyperpigmentation and lipodermatosclerosis are noted in the left gaiter area. The ulceration is full-thickness, extending through all layers of the dermis and into the subcutaneous tissues. A small amount of slough and devitalized tissue are present. The ulceration is clustered. Ulcer margins are well beveled. Infection and cellulitis are not evident. Dimensions are documented elsewhere. The scaly venous stasis dermatitis in the left gaiter area persists. Neuro oriented x3, CN's II-XII intact bilaterally, moves all extremities, no focal motor deficits and no sensory deficits noted Sensorium / Orientation: awake, alert, oriented to person, oriented to place and oriented to time Speech: speech normal Psych mental status grossly normal Appearance: grossly normal and appropriate Attitude: calm Activity / Motor Behavior: appropriate eye contact Speech: normal speech Mood & Affect: euthymic mood Thought Process: normal thought process Thought Content: normal thought content Attention / Concentration: attention grossly intact Debridement Note Debridement Note Wound debrided: Venous ulceration of the left medial malleolus Laterality: Left Type of Debridement: Excisional debridement Anesthesia Used: 5% Lidocaine Gel Depth: Down to and including healthy tissue and in the subcutaneous layer Percentage of wound debrided: 100 Instrument Used: 5mm curette Tissue Removed: Slough and devitalized tissue Severity: Fat Layer Exposed Amount of bleeding with debridement: Mild Bleeding Controlled with: Compression and gauze Patient tolerated procedure: Patient tolerated procedure well Post-Debridement Measurements and Additional Note: Post-Debridement Measurements/Treatment LA NENA - Nurse 1 - General Ulcer Assessment Start: 07/25/25 09:26 Freq: Status: Active Protocol: ANAYA Activity Type Activity Date Activity User E-sign Co-sign Detail Recorded Client Recorded Date Recorded By Document 07/25/25 09:26 RB [id number] 07/25/25 09:28 RB Document 08/01/25 11:37 RB [id number] 08/01/25 11:39 RB 07/25/25 08/01/25 09:26 11:37 - Today's Visit Information Type of service Follow-up Visit Follow-up Visit (Physician/INFORMATION TECHNOLOGY AUDIT MANAGER (Physician/INFORMATION TECHNOLOGY AUDIT MANAGER ) ) Arrival Mode Ambulatory Ambulatory Transfer Assistance None None Patient Identification Verified (Name & Yes Yes ) Patient Requires Transmission-Based No No Precautions Vital Signs Temperature (97.8 F-99.1 F) 96.5 F L 97.9 F Temperature Source Temporal Temporal Pulse Rate (60-100) 64 67 Pulse Location Monitor Monitor Respiratory Rate (12-18) 18 18 Respiratory rate source Observation Observation Blood Pressure (90/60-120/80) 142/69 H 146/77 H Blood Pressure Mean 93 100 Source Monitor Monitor Position Semi-Fowlers Sitting Blood Pressure Location Left Arm Left Arm History Since Last Visit- (Skip if this is Patient's initial visit) Have you changed medications since your No No last visit? Any new allergies or adverse reactions No No Had a fall/change in ADL's that may No No increase risk of falls Signs or symptoms of abuse and/or No No neglect since last visit Have you been in the hospital since your No No last visit? Has dressing in place as prescribed Yes Yes Has compression in place as prescribed Yes Yes Has offloadiing in place as prescribed N/A N/A Experienced any changes in pain level or No No management Left Footwear Regular Shoe Right Footwear Regular Shoe Pain Scale: 0-10 Numeric Is Patient Pain Free? Yes Yes - Nurse 1 - General Ulcer Measurement Start: 07/25/25 09:26 Freq: Status: Active Protocol: Activity Type Activity Date Activity User E-sign Co-sign Detail Recorded Client Recorded Date Recorded By Document 07/25/25 09:26 RB [id number] 07/25/25 09:28 RB Document 08/01/25 11:37 RB [id number] 08/01/25 11:39 RB 07/25/25 08/01/25 09:26 11:37 Wound Center Nurse 1 #1 L Med Ankle CLUSTER -Combined with other wound No No -Current Size (cm) - Length 4.4 4.1 -Current Size (cm) - Width 1.5 1 -Current Size (cm) - Depth 0.1 0.1 -Total Square Cm 6.60 4.1 -Photo Taken Yes Yes -Tunneling No No -Undermining/Tunneling No No -Circular Undermining No No -Exudate Amt Medium Medium -Exudate Type Serosanguineous Serosanguineous -Wound Margin Distinct, Thickened Outline Attached -Granulation Amt Medium (34-66%) Medium (34-66%) -Granulation Quality [place] -Slough/Fibrin Yes Yes -Necrosis Amt Large (67-100%) Medium (34-66%) -Necrotic Tissue Type Adherent Slough Adherent Slough -Structure Exposed N/A N/A -Texture (Megan-wound Skin Appearance) Excoriation Assessed -Moisture (Megan-wound Skin Appearance) Assessed Assessed,Dry/ Scaly -Color (Megan-wound Skin Appearance) Assessed Assessed -Temperature (Megan-wound Skin No Abnormality No Abnormality Appearance) (Pt Warm) (Pt Warm) -Tenderness on Palpation (Megan-wound No No Skin Appearance) -Ulcer Cleansing Wound Cleanser -Foul Odor after Cleansing No -Anesthetic Used 5% Lidocaine 5% Lidocaine Gel Gel Lower Limb Edema Present Yes Yes Left Calf (cm) 43 47 Left Ankle (cm) 24.5 24 WC - Nurse 2 - General Ulcer CM Notes Start: 07/25/25 09:26 Freq: Status: Active Protocol: Activity Type Activity Date Activity User E-sign Co-sign Detail Recorded Client Recorded Date Recorded By Document 07/25/25 09:45 DS [id number] 07/25/25 09:55 DS Edit Result 07/25/25 09:45 DS (1) [id number] 07/25/25 09:59 DS Document 08/01/25 12:19 DS [id number] 08/01/25 12:21 DS (1) #1 L Med Ankle CLUSTER - Percent Used 100 => 75 07/25/25 08/01/25 09:45 12:19 Wound Center Nurse 2 #1 L Med Ankle CLUSTER -Time 09:45 12:11 -Correct Patient Yes Yes -Correct Side, Site, Position Yes Yes -Correct Procedure Yes Yes -Procedure Performed Yes Yes -Type of Procedure Debridement Debridement -Clinical Debridement Subcutaneous Subcutaneous -Tissue Removed Subcutaneous Subcutaneous -Post Debridement (cm) - Length 4.2 4.0 -Post Debridement (cm) - Width 1.3 1.3 -Post Debridement (cm) - Depth 0.1 0.1 -Total Square (Post) (cm) 5.46 5.20 -Area of Debridement (cm) - Length 4.2 4.0 -Area of Debridement (cm) - Width 1.3 1.3 -Total Square (Area) (cm) 5.46 5.20 -Tunneling No No -Undermining/Tunneling No No -Circular Undermining No No -Wound/Ulcer Outcome Not Healed Not Healed -Ulcer Cleansing gauze gauze -Foul Odor after Cleansing No No -Bioengineered Tissue Yes No -Type of Bioengineered Tissue Epifix Mesh -Expiration Date 01/17/30 -Product Lot Number [id number] -Percent Used 75 -Lot number of Saline Used [id number] -Bleeding Controlled with Pressure Pressure -Treatment Response Procedure Procedure Tolerated Well Tolerated Well -Debridement - Subq, 1st 20sq cm No Yes -Apply Skin Sub - 1st 25 sq cm - Legs 1 -Epifix Mesh Application 1-4 (per sq 11 cm) Pain Scale: 0-10 Numeric Is Patient Pain Free? Yes Yes WC - Nurse 3 - General Ulcer D/C NN Start: 07/25/25 09:26 Freq: Status: Active Protocol: Activity Type Activity Date Activity User E-sign Co-sign Detail Recorded Client Recorded Date Recorded By Document 07/25/25 10:09 JF [id number] 07/25/25 10:11 JF Document 08/01/25 12:33 DS [id number] 08/01/25 12:33 DS 07/25/25 08/01/25 10:09 12:33 Wound Care Center Nurse 3 #1 L Med Ankle CLUSTER -Ulcer Cleansing Rinsed/ Irrigated with Saline -Primary Dressing Applied Aquacel Extra,C Hydrogel -Primary Dressing Covered/Secured with Dry Gauze & Dry Gauze, Roll Gauze, Secured with Secured with Tape Tape -Aquacel Extra 1 -Hydrogel 1 LLE -Tubular Bandage Double Layer Double Layer -Size of Tubigrip Used Size D Size D -Size D ($) 2 2 Pain Scale: 0-10 Numeric Is Patient Pain Free? Yes Yes WC - Visit Discharge Discharge Condition Stable Stable Ambulatory Status Ambulatory Ambulatory Transportation Private Auto Private Auto Medication Reconcilliation completed & No provided to patient/care provider Clinical Summary of Care Provided No Charges/Coding Procedures Integumentary [id number]: [id number] [place] subq tissue 20 sq cm/< Assessment/Plan Assessment/Plan (1) 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: CODE(S): I83.003 - Varicose veins of unspecified lower extremity with ulcer of ankle; L97.302 - Non-pressure chronic ulcer of unspecified ankle with fat layer exposed QUALIFIERS: Varicose vein presence: without varicose veins Laterality: left Qualified Code(s): I87.2 - Venous insufficiency (chronic) (peripheral); L97.322 - Non-pressure chronic ulcer of left ankle with fat layer exposed (2) Venous stasis ulcer: CODE(S): I83.009 - Varicose veins of unspecified lower extremity with ulcer of unspecified site; L97.909 - Non-pressure chronic ulcer of unspecified part of unspecified lower leg with unspecified severity QUALIFIERS: Venous stasis ulcer site: ankle Varicose vein presence: without varicose veins Laterality: left Non-pressure ulcer stage: with fat layer exposed Qualified Code(s): I87.2 - Venous insufficiency (chronic) (peripheral); L97.322 - Non-pressure chronic ulcer of left ankle with fat layer exposed (3) Ulcer of extremity due to chronic venous insufficiency: CODE(S): L98.499 - Non-pressure chronic ulcer of skin of other sites with unspecified severity; I87.2 - Venous insufficiency (chronic) (peripheral) (4) Venous insufficiency (chronic) (peripheral): CODE(S): I87.2 - Venous insufficiency (chronic) (peripheral) (5) Venous hypertension, chronic, with ulcer: CODE(S): I87.319 - Chronic venous hypertension (idiopathic) with ulcer of unspecified lower extremity; L97.909 - Non-pressure chronic ulcer of unspecified part of unspecified lower leg with unspecified severity (6) Venous stasis dermatitis: CODE(S): I87.2 - Venous insufficiency (chronic) (peripheral) (7) Bilateral leg edema: CODE(S): R60.0 - Localized edema (8) Localized swelling of both lower legs: CODE(S): R22.43 - Localized swelling, mass and lump, lower limb, bilateral (9) History of esophagogastroduodenoscopy (EGD): CODE(S): Z98.890 - Other specified postprocedural states (10) Delayed wound healing: CODE(S): T14.8XXD - Other injury of unspecified body region, subsequent encounter (11) History of cholecystectomy: CODE(S): Z90.49 - Acquired absence of other specified parts of digestive tract (12) History of repair of hip fracture: CODE(S): Z98.890 - Other specified postprocedural states (13) History of spinal surgery: CODE(S): Z98.890 - Other specified postprocedural states (14) History of hernia repair: CODE(S): Z98.890 - Other specified postprocedural states; Z87.19 - Personal history of other diseases of the digestive system (15) Bilateral lower extremity edema: CODE(S): R60.0 - Localized edema (16) JOSHUA (obstructive sleep apnea): CODE(S): G47.33 - Obstructive sleep apnea (adult) (pediatric) (17) Osteopenia: CODE(S): M85.80 - Other specified disorders of bone density and structure, unspecified site (18) Restless leg syndrome: (19) GERD (gastroesophageal reflux disease): CODE(S): K21.9 - Gastro-esophageal reflux disease without esophagitis QUALIFIERS: Esophagitis presence: esophagitis presence not specified Qualified Code(s): K21.9 - Gastro-esophageal reflux disease without esophagitis (20) Celiac disease: CODE(S): K90.0 - Celiac disease (21) Asthma: CODE(S): J45.909 - Unspecified asthma, uncomplicated QUALIFIERS: Asthma severity: severe Asthma persistence: persistent Asthma complication type: with acute exacerbation Qualified Code(s): J45.51 - Severe persistent asthma with (acute) exacerbation PLAN: Plan This is a 80-year-old male with a long history of chronic venous disease. He presented with an ulceration at the site of the left medial malleolus. There are stigmata of chronic venous disease, including venous stasis dermatitis, hyperpigmentation, swelling, etc. The patient has previously undergone chemical ablation of the left great saphenous vein in March 2025. A lengthy discussion has been undertaken with the patient regarding the appropriate conservative measures for outpatient management of his venous disease. The patient has been encouraged to continue sleeping on a flat surface at night. His legs are to be elevated during daytime hours as well, as much as possible. Leg elevation is to be to heart level, or higher. Prolonged idle sitting has been discouraged. Activity/ambulation has been encouraged. Allografts have been applied to the ulceration in 8 of the last 9 weeks. We are to forego application of an allograft at today's visit. Instead, we are to implement the use of collagen hydrogel and Aquacel Extra topically on a daily basis. The patient has been instructed in the appropriate means of application. For compression, we are to continue double Tubigrips donned on a daily basis. The patient has been encouraged to apply fragrance-free skin moisturizer to the dermatitic skin in the left gaiter area. The patient underwent a venous duplex examination on July 24, 2025, which revealed chronic venous changes in the left femoral vein and left popliteal vein. 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 The left great saphenous vein appears to be ablated from the proximal thigh to the distal calf. These results have been discussed with the patient. It is felt that this patient with such chronic venous disease and manifestations may have venous outflow in the left lower extremity. Therefore, a venous duplex examination of the inferior vena cava and left iliac venous system is to be obtained. Furthermore, the patient may benefit from pneumatic mechanical compression pumps to assist in the venous outflow in the left lower extremity. Efforts will be made to procure these compression pumps for the patient. The patient will follow-up in 1 week for reevaluation. Resumption of allograft applications may be considered at that time. Total time: 26 minutes
[2025-08-08 11:31] VITALS: BP 131/80; PULSE 66; RESP 18; TEMP 35.8
--- NOTE | 2025-08-09 09:01 | WC ---
PHOTO-LEFT POST ANKLE 08/08/25
--- NOTE | 2025-08-09 11:53 | PCM.WC.HP ---
History of Present Illness Date of Service: 08/08/25 Chief Complaint: Left medial ankle venous stasis ulceration History of Wound: This patient is a 80-year-old male who presented to the [facility] Center with a recurring left lower extremity medial ankle ulceration. He has PMHx of recurring left lower extremity ulcerations secondary to chronic venous insufficiency, history of DVT, obesity, JOSHUA, iron deficiency anemia, delayed wound healing, and asthma. He also suffers from chronic swelling, edema, and lymphedema in his left lower extremity. He was diagnosed with deep vein thrombosis in the left lower extremity 25 years ago. He states that he does have compression stockings and continues to wear them. He had been following in the Wound Center for a deep ulceration to the medial aspect of the left lower extremity overlying the neurovascular bundle. He did go on to heal this ulceration as of 12/31/[address] Mckee for venogram. A left great saphenous vein chemical ablation was performed by Dr. Mckee on April 13, 2025. However, despite the procedure, the patient's condition has seemed to worsen, according to the patient. The patient has continued wearing compression stockings. However, he states that while in the shower he did notice a scab of the left medial ankle and after showering applied antibiotic ointment and Band-Aid which later the scab became soft and opened a small wound. He states that he did see his PCP who did obtain cultures and placed him on oral antibiotic. He was then referred to the Wound Center for further follow-up. He denies any trauma to the site. He states that he has had recurrent ulcerations at the site of his current ulceration. 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4 mg PO QHS Enlarged prostate 07/12/17 01/06/24 History ergocalciferol (vitamin D2) 1,250 50,000 unit PO WE 10/21/19 Unknown History mcg (50,000 unit) capsule levothyroxine 50 mcg tablet 100 mcg PO DAILY 03/21/22 01/06/24 History fluticasone propionate 50 2 spray NASAL BID PRN Congestion 03/25/22 Unknown Rx mcg/actuation nasal #16 grams spray,suspension pramipexole 1.5 mg tablet 1.5 mg PO DAILY 11/25/23 Unknown History finasteride 5 mg tablet 5 mg PO DAILY 01/05/24 Unknown History bimatoprost 0.03 % eye drops 1 drp ophthalmic (eye) QDAY 10/04/24 Unknown History denosumab 60 mg/mL subcutaneous 60 mg subcut [id number] 10/04/24 Unknown History syringe (Prolia) diclofenac potassium 50 mg tablet 50 mg PO TID PRN pain 10/04/24 Unknown History fluticasone 232 mcg-salmeterol 14 1 inh inhalation BID #1 ea 10/04/24 Unknown Rx mcg/actuation breath activated powdr ferrous gluconate 324 mg (37.5 mg 324 mg PO BID #60 tabs 12/07/24 Unknown Rx iron) tablet albuterol sulfate 90 mcg/actuation 2 inh inhalation Q4-6H PRN 03/28/25 Unknown Rx aerosol inhaler shortness of breath or wheezing #8.5 grams donepezil 5 mg tablet 5 mg PO QHS 03/28/25 Unknown History furosemide 40 mg tablet (Lasix) 40 mg PO DAILY 05/16/25 Unknown History benralizumab 30 mg/mL subcutaneous 30 mg subcut .Q8w 07/11/25 Unknown History syringe (Fasenra) Allergy/AdvReac Type Severity Reaction Status Date / Time gluten AdvReac Other Verified 08/01/25 09:38 Family History Father prostate cancer Surgical History History of colonoscopy (~09/24/20) History of hernia repair History of spinal surgery (~2017) History of repair of hip fracture History of cholecystectomy colonoscopy Social History Smoking Status: Former smoker alcohol intake: never substance use type: does not use Physical Exam Const alert, oriented x3, no apparent distress, no limitations and well nourished General Appearance: cooperative, comfortable, well kempt and well developed Orientation / Consciousness: awake, oriented to person, oriented to place and oriented to time Exam Limitations: no limitations HEENT normocephalic and head/scalp atraumatic Head and Scalp: normal to inspection, normocephalic and atraumatic Face and Sinus: normal facial exam Nose: external nose normal External Ear: external ears normal Eyes EOMs intact bilaterally General Eye: normal appearance of both eyes Neck full ROM Resp normal respiratory effort, normal air movement, no retractions and no use of accessory muscles Effort and Inspection: able to speak in complete sentences Extremity no calf tenderness General Extremity: Negative for clubbing or cyanosis Skin Wound Narrative: The left medial malleolus venous ulceration appears improved. The megan-ulcer erythema is diminished. Mild swelling, edema, and lymphedema are noted in the patient's left lower extremity. [place] phlebectatica is noted near the left medial malleolus and medial foot. Hyperpigmentation and lipodermatosclerosis are noted in the left gaiter area. The ulceration is full-thickness, extending through all layers of the dermis and into the subcutaneous tissues. A small amount of slough and devitalized tissue are present. The ulceration is clustered. Ulcer margins are well beveled. Infection and cellulitis are not evident. Dimensions are documented elsewhere. The ulceration appears slightly smaller in size. The scaly venous stasis dermatitis in the left gaiter area persists. Neuro oriented x3, CN's II-XII intact bilaterally, moves all extremities, no focal motor deficits and no sensory deficits noted Sensorium / Orientation: awake, alert, oriented to person, oriented to place and oriented to time Speech: speech normal Psych mental status grossly normal Appearance: grossly normal and appropriate Attitude: calm Activity / Motor Behavior: appropriate eye contact Speech: normal speech Mood & Affect: euthymic mood Thought Process: normal thought process Thought Content: normal thought content Attention / Concentration: attention grossly intact Debridement Note Debridement Note Wound debrided: Venous ulceration of the left medial malleolus Laterality: Left Type of Debridement: Excisional debridement Anesthesia Used: 5% Lidocaine Gel Depth: Down to and including healthy tissue and in the subcutaneous layer Percentage of wound debrided: 100 Instrument Used: 5mm curette Tissue Removed: Slough and devitalized tissue Severity: Fat Layer Exposed Amount of bleeding with debridement: Mild Bleeding Controlled with: Compression and gauze Patient tolerated procedure: Patient tolerated procedure well Debridement Free Text: Following an excisional debridement, which was well-tolerated, the decision was made to proceed with the placement of an allograft. Based on the dimensions of the patient's ulceration, a 4 cm x 4.5 cm EpiMesh allograft was selected. The allograft was removed from its sterile packaging, and fashioned to the appropriate dimensions. It was then applied topically to the ulceration in the appropriate orientation. 100% of the allograft was utilized. Once in place, the site was covered with Adaptic, which was then secured in place using Steri-Strips. Collagen hydrogel was then placed over the site to provide a moist wound healing environment. A dry sterile gauze dressing was then applied. A double Tubigrip compression sleeve was then applied. This represents the 9th such application of an allograft at this site. Post-Debridement Measurements and Additional Note: Post-Debridement Measurements/Treatment - Nurse 1 - General Ulcer Assessment Start: 07/25/25 09:26 Freq: Status: Active Protocol: WC.LOWSANJANAT Activity Type Activity Date Activity User E-sign Co-sign Detail Recorded Client Recorded Date Recorded By Document 07/25/25 09:26 RB [id number] 07/25/25 09:28 RB Document 08/01/25 11:37 RB [id number] 08/01/25 11:39 RB Document 08/08/25 11:31 TS [id number] 08/08/25 11:36 TS 07/25/25 08/01/25 08/08/25 09:26 11:37 11:31 - Today's Visit Information Type of service Follow-up Visit Follow-up Visit Follow-up Visit (Physician/IDENTIFIER HORSE (Physician/IDENTIFIER HORSE (Physician/IDENTIFIER HORSE ) ) ) Arrival Mode Ambulatory Ambulatory Ambulatory Transfer Assistance None None None Patient Identification Verified (Name & Yes Yes Yes ) Patient Requires Transmission-Based No No No Precautions Safety Precautions NA Vital Signs Temperature (97.8 F-99.1 F) 96.5 F L 97.9 F 96.4 F L Temperature Source Temporal Temporal Temporal Pulse Rate (60-100) 64 67 66 Pulse Location Monitor Monitor Monitor Respiratory Rate (12-18) 18 18 18 Respiratory rate source Observation Observation Observation Blood Pressure (90/60-120/80) 142/69 H 146/77 H 131/80 H Blood Pressure Mean 93 100 97 Source Monitor Monitor Monitor Position Semi-Fowlers Sitting Sitting Blood Pressure Location Left Arm Left Arm Right Arm History Since Last Visit- (Skip if this is Patient's initial visit) Have you changed medications since your No No No last visit? Any new allergies or adverse reactions No No No Had a fall/change in ADL's that may No No No increase risk of falls Signs or symptoms of abuse and/or No No No neglect since last visit Have you been in the hospital since your No No No last visit? Has dressing in place as prescribed Yes Yes Yes Has compression in place as prescribed Yes Yes Yes Has offloadiing in place as prescribed N/A N/A N/A Experienced any changes in pain level or No No No management Left Footwear Regular Shoe Regular Shoe Right Footwear Regular Shoe Regular Shoe Pain Scale: 0-10 Numeric Is Patient Pain Free? Yes Yes Yes WC - Nurse 1 - General Ulcer Measurement Start: 07/25/25 09:26 Freq: Status: Active Protocol: Activity Type Activity Date Activity User E-sign Co-sign Detail Recorded Client Recorded Date Recorded By Document 07/25/25 09:26 RB [id number] 07/25/25 09:28 RB Document 08/01/25 11:37 RB [id number] 08/01/25 11:39 RB Document 08/08/25 11:31 TS [id number] 08/08/25 11:36 TS 07/25/25 08/01/25 08/08/25 09:26 11:37 11:31 Wound Center Nurse 1 #1 L Med Ankle CLUSTER -Combined with other wound No No No -Current Size (cm) - Length 4.4 4.1 4.1 -Current Size (cm) - Width 1.5 1 1 -Current Size (cm) - Depth 0.1 0.1 0.2 -Total Square Cm 6.60 4.1 4.1 -Photo Taken Yes Yes Yes -Tunneling No No No -Undermining/Tunneling No No No -Circular Undermining No No No -Exudate Amt Medium Medium Medium -Exudate Type Serosanguineous Serosanguineous Serosanguineous -Wound Margin Distinct, Thickened Thickened & Outline Rolled Under Attached -Granulation Amt Medium (34-66%) Medium (34-66%) Medium (34-66%) -Granulation Quality [place] -Slough/Fibrin Yes Yes Yes -Necrosis Amt Large (67-100%) Medium (34-66%) Medium (34-66%) -Necrotic Tissue Type Adherent Slough Adherent Slough Adherent Slough -Structure Exposed N/A N/A None/Limited to Skin Breakdown -Texture (Megan-wound Skin Appearance) Excoriation Assessed Assessed -Moisture (Megan-wound Skin Appearance) Assessed Assessed,Dry/ No Abnormality, Scaly Dry/Scaly -Color (Megan-wound Skin Appearance) Assessed Assessed No Abnormality -Temperature (Megan-wound Skin No Abnormality No Abnormality No Abnormality Appearance) (Pt Warm) (Pt Warm) (Pt Warm) -Tenderness on Palpation (Megan-wound No No No Skin Appearance) -Ulcer Cleansing Wound Cleanser Soap and Water -Foul Odor after Cleansing No Yes -Anesthetic Used 5% Lidocaine 5% Lidocaine 5% Lidocaine Gel Gel Gel Lower Limb Edema Present Yes Yes No Right Calf (cm) 38.4 Right Ankle (cm) 23 Left Calf (cm) 43 47 Left Ankle (cm) 24.5 24 WC - Nurse 2 - General Ulcer CM Notes Start: 07/25/25 09:26 Freq: Status: Active Protocol: Activity Type Activity Date Activity User E-sign Co-sign Detail Recorded Client Recorded Date Recorded By Document 07/25/25 09:45 DS [id number] 07/25/25 09:55 DS Edit Result 07/25/25 09:45 DS (1) [id number] 07/25/25 09:59 DS Document 08/01/25 12:19 DS [id number] 08/01/25 12:21 DS Document 08/08/25 12:01 DS [id number] 08/08/25 12:02 DS (1) #1 L Med Ankle CLUSTER - Percent Used 100 => 75 07/25/25 08/01/25 08/08/25 09:45 12:19 12:01 Wound Center Nurse 2 #1 L Med Ankle CLUSTER -Time 09:45 12:11 12:01 -Correct Patient Yes Yes Yes -Correct Side, Site, Position Yes Yes Yes -Correct Procedure Yes Yes Yes -Procedure Performed Yes Yes Yes -Type of Procedure Debridement Debridement Debridement -Clinical Debridement Subcutaneous Subcutaneous Subcutaneous -Tissue Removed Subcutaneous Subcutaneous Subcutaneous -Post Debridement (cm) - Length 4.2 4.0 4.0 -Post Debridement (cm) - Width 1.3 1.3 1.3 -Post Debridement (cm) - Depth 0.1 0.1 0.1 -Total Square (Post) (cm) 5.46 5.20 5.20 -Area of Debridement (cm) - Length 4.2 4.0 1.0 -Area of Debridement (cm) - Width 1.3 1.3 1.3 -Total Square (Area) (cm) 5.46 5.20 1.30 -Tunneling No No No -Undermining/Tunneling No No No -Circular Undermining No No No -Wound/Ulcer Outcome Not Healed Not Healed Not Healed -Ulcer Cleansing gauze gauze gauze -Foul Odor after Cleansing No No No -Bioengineered Tissue Yes No Yes -Type of Bioengineered Tissue Epifix Mesh Epifix Mesh -Expiration Date 01/17/30 01/17/30 -Product Lot Number [id number] -Percent Used 75 100 -Lot number of Saline Used [id number] -Bleeding Controlled with Pressure Pressure Pressure -Treatment Response Procedure Procedure Procedure Tolerated Well Tolerated Well Tolerated Well -Debridement - Subq, 1st 20sq cm No Yes No -Apply Skin Sub - 1st 25 sq cm - Legs 1 1 -Epifix Mesh Application 1-4 (per sq 11 11 cm) Pain Scale: 0-10 Numeric Is Patient Pain Free? Yes Yes Yes WC - Nurse 3 - General Ulcer D/C NN Start: 07/25/25 09:26 Freq: Status: Active Protocol: Activity Type Activity Date Activity User E-sign Co-sign Detail Recorded Client Recorded Date Recorded By Document 07/25/25 10:09 JF [id number] 07/25/25 10:11 JF Document 08/01/25 12:33 DS [id number] 08/01/25 12:33 DS Document 08/08/25 14:30 JF [id number] 08/08/25 14:31 JF 07/25/25 08/01/25 08/08/25 10:09 12:33 14:30 Wound Care Center Nurse 3 #1 L Med Ankle CLUSTER -Ulcer Cleansing Rinsed/ Irrigated with Saline -Primary Dressing Applied Aquacel Extra,C Hydrogel -Primary Dressing Covered/Secured with Dry Gauze & Dry Gauze, Dry Gauze & Roll Gauze, Secured with Roll Gauze, Secured with Tape Secured with Tape Tape -Aquacel Extra 1 -Hydrogel 1 LLE -Multi-Layered Wrap Application Multi-Layer Comp - Left ($) -Tubular Bandage Double Layer Double Layer -Size of Tubigrip Used Size D Size D -Size D ($) 2 2 -Multi-Layer Compression Left (Qty 1 applied) Pain Scale: 0-10 Numeric Is Patient Pain Free? Yes Yes Yes WC - Visit Discharge Discharge Condition Stable Stable Stable Ambulatory Status Ambulatory Ambulatory Ambulatory Transportation Private Auto Private Auto Private Auto Medication Reconcilliation completed & No Yes provided to patient/care provider Clinical Summary of Care Provided No Yes Charges/Coding Procedures Integumentary [id number]: 18291 Skin sub graft trnk/arm/leg Assessment/Plan Assessment/Plan (1) 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: CODE(S): I83.003 - Varicose veins of unspecified lower extremity with ulcer of ankle; L97.302 - Non-pressure chronic ulcer of unspecified ankle with fat layer exposed QUALIFIERS: Varicose vein presence: without varicose veins Laterality: left Qualified Code(s): I87.2 - Venous insufficiency (chronic) (peripheral); L97.322 - Non-pressure chronic ulcer of left ankle with fat layer exposed (2) Venous stasis ulcer: CODE(S): I83.009 - Varicose veins of unspecified lower extremity with ulcer of unspecified site; L97.909 - Non-pressure chronic ulcer of unspecified part of unspecified lower leg with unspecified severity QUALIFIERS: Venous stasis ulcer site: ankle Varicose vein presence: without varicose veins Laterality: left Non-pressure ulcer stage: with fat layer exposed Qualified Code(s): I87.2 - Venous insufficiency (chronic) (peripheral); L97.322 - Non-pressure chronic ulcer of left ankle with fat layer exposed (3) Ulcer of extremity due to chronic venous insufficiency: CODE(S): L98.499 - Non-pressure chronic ulcer of skin of other sites with unspecified severity; I87.2 - Venous insufficiency (chronic) (peripheral) (4) Venous insufficiency (chronic) (peripheral): CODE(S): I87.2 - Venous insufficiency (chronic) (peripheral) (5) Venous hypertension, chronic, with ulcer: CODE(S): I87.319 - Chronic venous hypertension (idiopathic) with ulcer of unspecified lower extremity; L97.909 - Non-pressure chronic ulcer of unspecified part of unspecified lower leg with unspecified severity (6) Venous stasis dermatitis: CODE(S): I87.2 - Venous insufficiency (chronic) (peripheral) (7) Acquired lymphedema of lower extremity: CODE(S): I89.0 - Lymphedema, not elsewhere classified (8) Bilateral leg edema: CODE(S): R60.0 - Localized edema (9) Localized swelling of both lower legs: CODE(S): R22.43 - Localized swelling, mass and lump, lower limb, bilateral (10) History of esophagogastroduodenoscopy (EGD): CODE(S): Z98.890 - Other specified postprocedural states (11) Delayed wound healing: CODE(S): T14.8XXD - Other injury of unspecified body region, subsequent encounter (12) History of cholecystectomy: CODE(S): Z90.49 - Acquired absence of other specified parts of digestive tract (13) History of repair of hip fracture: CODE(S): Z98.890 - Other specified postprocedural states (14) History of spinal surgery: CODE(S): Z98.890 - Other specified postprocedural states (15) History of hernia repair: CODE(S): Z98.890 - Other specified postprocedural states; Z87.19 - Personal history of other diseases of the digestive system (16) Bilateral lower extremity edema: CODE(S): R60.0 - Localized edema (17) JOSHUA (obstructive sleep apnea): CODE(S): G47.33 - Obstructive sleep apnea (adult) (pediatric) (18) Osteopenia: CODE(S): M85.80 - Other specified disorders of bone density and structure, unspecified site (19) Restless leg syndrome: (20) GERD (gastroesophageal reflux disease): CODE(S): K21.9 - Gastro-esophageal reflux disease without esophagitis QUALIFIERS: Esophagitis presence: esophagitis presence not specified Qualified Code(s): K21.9 - Gastro-esophageal reflux disease without esophagitis (21) Celiac disease: CODE(S): K90.0 - Celiac disease (22) Asthma: CODE(S): J45.909 - Unspecified asthma, uncomplicated QUALIFIERS: Asthma severity: severe Asthma persistence: persistent Asthma complication type: with acute exacerbation Qualified Code(s): J45.51 - Severe persistent asthma with (acute) exacerbation PLAN: Plan This is a 80-year-old male with a long history of chronic venous disease. He presented with an ulceration at the site of the left medial malleolus. There are stigmata of chronic venous disease, including venous stasis dermatitis, hyperpigmentation, swelling, lymphedema, etc. The patient has previously undergone chemical ablation of the left great saphenous vein in March 2025. A lengthy discussion has been undertaken with the patient regarding the appropriate conservative measures for outpatient management of his venous disease. The patient has been encouraged to continue sleeping on a flat surface at night. His legs are to be elevated during daytime hours as well, as much as possible. Leg elevation is to be to heart level, or higher. Prolonged idle sitting has been discouraged. Activity/ambulation has been encouraged. Allografts have been applied to the ulceration in 8 of the last 10 weeks. The 9th allograft was applied today. The allograft and its dressings are to be left in place, intact, and undisturbed until the patient returns in 1 week for reevaluation. For compression, we are to continue double Tubigrips donned on a daily basis. The patient has been encouraged to apply fragrance-free skin moisturizer to the dermatitic skin in the left gaiter area. The patient underwent a venous duplex examination on July 24, 2025, which revealed chronic venous changes in the left femoral vein and left popliteal vein. 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 The left great saphenous vein appears to be ablated from the proximal thigh to the distal calf. These results have been discussed with the patient. It is felt that this patient with such chronic venous disease and manifestations may have venous outflow in the left lower extremity. Therefore, a venous duplex examination of the inferior vena cava and left iliac venous system is to be obtained, and is scheduled for Monday, August 11, 2025. Furthermore, the patient will likely benefit from pneumatic, mechanical compression pumps to assist in the venous outflow in the left lower extremity. It is envision that 2 or 3 daily sessions of mechanical pneumatic compression using such garments will be of benefit to the patient in terms of augmenting venous return. Efforts will be made to procure these compression pumps for the patient. The patient will follow-up in 1 week for reevaluation. It is anticipated that allograft application #10 will be applied at the patient's follow-up visit next week. Total time: 25 minutes
--- NOTE | 2025-08-11 07:40 | AAVD_ITS ---
Reason For Study Reason For Study: Suspect possible venouse ouflow obstruction Inferior Vena Cava Proximal inferior vena cava measures 3.08 x 3.42 cm. in the cross-sectional axis. Proximal inferior vena cava measures 3.06 cm. in the longitudinal axis. Mid inferior vena cava measures 1.89 x 3.02 cm. in the cross-sectional axis. Mid inferior vena cava measures 1.60 cm. in the longitudinal axis. Distal inferior vena cava measures 1.70 x 2.90 cm. in the cross-sectional axis. Distal inferior vena cava measures 1.69 cm. in the longitudinal axis. The inferior vena cava has spontaneous, phasic flow throughout. Left Common Iliac Vein Left common iliac vein measures 1.03 x 1.12 cm. in the cross-sectional axis. Left common iliac vein measures 0.92 cm. in the longitudinal axis. The left common iliac vein has spontaneous, phasic flow throughout. EIV normal phasic venous flow noted. Right Common Iliac Vein Right common iliac vein measures 1.07 x 1.12 cm. in the cross-sectional axis. Right common iliac vein measures 1.00 cm. in the longitudinal axis. The right common iliac vein has spontaneous, phasic flow throughout. EIV normal phasic venous flow noted. Procedure Aorta IVC Iliac vasculature or bypass grafts [id number]. Exam performed in department. VL/Abd Aortic/IVC Duplex scan Interpretation Summary The inferior vena cava appears patent, and demonstrates normal, spontaneous, ph asic flow. The common iliac veins and external iliac veins appear patent bilaterally, demonstrating normal, spontaneo us, phasic flow bilaterally. There is no evidence of venous outflow obstruction in the lower extremities. Ordering Physician: Jose L Nagel Referring Physician: Keven Joseph Performed By: Delisa Pak RVT
[2025-08-11 12:48] VITALS: BP 142/61; PULSE 65; RESP 15; TEMP 35.6
[2025-08-15 08:55] VITALS: BP 150/93; PULSE 66; RESP 16; TEMP 36.2
--- NOTE | 2025-08-15 12:55 | HP.PCM_ITS ---
History of Present Illness Date of Service: 08/15/25 Chief Complaint: Left medial ankle venous stasis ulceration History of Wound: This patient is a 80-year-old male who presented to the Wound Center with a recurring left lower extremity medial ankle ulceration. He has PMHx of recurring left lower extremity ulcerations secondary to chronic venous insufficiency, history of DVT, obesity, JOSHUA, iron deficiency anemia, delayed wound healing, and asthma. He also suffers from chronic swelling, edema, and lymphedema in his left lower extremity. He was diagnosed with deep vein thrombosis in the left lower extremity 25 years ago. He states that he does have compression stockings and continues to wear them. He had been following in the Wound Center for a deep ulceration to the medial aspect of the left lower extremity overlying the neurovascular bundle. He did go on to heal this ulceration as of 12/31/[address] Mckee for venogram. A left great saphenous vein chemical ablation was performed by Dr. Mckee on April 13, 2025. However, despite the procedure, the patient's condition has seemed to worsen, according to the patient. The patient has continued wearing compression stockings. However, he states that while in the shower he did notice a scab of the left medial ankle and after showering applied antibiotic ointment and Band- Aid. Later, the scab became soft and opened a small wound. He states that he did see his PCP who did obtain cultures and placed him on oral antibiotic. He was then referred to the Wound Center for further follow-up. He denies any trauma to the site. He states that he has had recurrent ulcerations at the site of his current ulceration. 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 Venous stasis ulcer JOSHUA (obstructive sleep apnea) History of back problems Fatigue Weight loss Lab test positive for detection of COVID-19 virus (~04/2020) Left femoral shaft fracture Osteopenia 2011 femur fracture [facility] DVT (deep venous thrombosis) Restless leg syndrome Iron deficiency anemia GERD (gastroesophageal reflux disease) Celiac disease Asthma Home Medications Medication Instructions Recorded Last Taken Type pantoprazole 40 mg tablet,delayed 40 mg PO QHS gerd 07/15/17 History release tamsulosin 0.4 mg capsule 0.4 mg PO QHS Enlarged prost ate 07/12/17 01/06/24 History ergocalciferol (vitamin D2) 1,250 50,000 unit PO WE Unknown History mcg (50,000 unit) capsule levothyroxine 50 mcg tablet 100 mcg PO DAILY 03/21/22 01/06/24 History fluticasone propionate 50 2 spray NASAL BID PRN Conges tion 03/25/22 Unknown Rx mcg/actuation nasal #16 grams spray,suspension pramipexole 1.5 mg tablet 1.5 mg PO DAILY 11/25/23 Unk nown History finasteride 5 mg tablet 5 mg PO DAILY 01/05/24 Unkno wn History bimatoprost 0.03 % eye drops 1 drp ophthalmic (eye) QD AY 10/04/24 Unknown History denosumab 60 mg/mL subcutaneous 60 mg subcut [id number] 10/04/24 Unknown History syringe (Prolia) diclofenac potassium 50 mg tablet 50 mg PO TID PRN brynn n 10/04/24 Unknown History fluticasone 232 mcg-salmeterol 14 1 inh inhalation BID #1 ea 10/04/24 Unknown Rx mcg/actuation breath activated powdr ferrous gluconate 324 mg (37.5 mg 324 mg PO BID #60 ta bs 12/07/24 Unknown Rx iron) tablet albuterol sulfate 90 mcg/actuation 2 inh inhalation Q4 -6H PRN 03/28/25 Unknown Rx aerosol inhaler shortness of breath or wheez ing #8.5 grams donepezil 5 mg tablet 5 mg PO QHS 03/28/25 Unknown History furosemide 40 mg tablet (Lasix) 40 mg PO DAILY 5 Unknown History benralizumab 30 mg/mL subcutaneous 30 mg subcut .Q8w 0 07/11/25 Unknown History syringe (Fasenra) Allergy/AdvReac Type Severity Reaction Status Date / Time gluten AdvReac Other Verified 08/01/25 09:38 Family History Father prostate cancer Surgical History History of colonoscopy (~09/24/20) History of hernia repair History of spinal surgery (~2017) History of repair of hip fracture History of cholecystectomy colonoscopy Social History Smoking Status: Former smoker alcohol intake: never substance use type: does not use Vital Signs Vital Signs Vital Signs: 08/15/25 08:55 Temperature 97.1 F L Temperature Source Temporal Pulse Rate 66 Respiratory Rate 16 Blood Pressure 150/93 H Blood Pressure Mean 112 Blood Pressure Source Monitor Blood Pressure Position Sitting Blood Pressure Location Right Arm Oxygen Delivery Method Room Air Physical Exam Const alert, oriented x3, no apparent distress, no limitations and well nourished General Appearance: cooperative, comfortable, well kempt and well developed Orientation / Consciousness: awake, oriented to person, oriented to place and oriented to time Exam Limitations: no limitations HEENT normocephalic and head/scalp atraumatic Head and Scalp: normal to inspection, normocephalic and atraumatic Face and Sinus: normal facial exam Nose: external nose normal External Ear: external ears normal Eyes EOMs intact bilaterally General Eye: normal appearance of both eyes Alignment: alignment normal Neck full ROM Resp normal respiratory effort, normal air movement, no retractions and no use of accessory muscles Effort and Inspection: able to speak in complete sentences Extremity no calf tenderness General Extremity: Negative for clubbing or cyanosis Skin Wound Narrative: The left medial malleolus venous ulceration appears slightly improved. It is a clustered ulceration. The megan-ulcer erythema and scaly dermatitis are diminished. Mild swelling, edema, and lymphedema are noted in the patient's left lower extremity. Several large superficial varicosities are noted in the patient's left medial calf. [place]ley phlebectatica is noted near the left medial malleolus and medial foot. Hyperpigmentation and lipodermatosclerosis are noted in the left gaiter area. The ulceration is full-thickness, extending through all layers of the dermis and into the subcutaneous tissues. A small amount of slough and devitalized tissue are present. Ulcer margins are well beveled. Infection and cellulitis are not evident. Dimensions are documented elsewhere. The ulceration appears slightly smaller in size. Neuro oriented x3, CN's II-XII intact bilaterally, moves all extremities, no focal motor deficits and no sensory deficits noted Sensorium / Orientation: awake, alert, oriented to person, oriented to place and oriented to time Speech: speech normal Psych mental status grossly normal Appearance: grossly normal and appropriate Attitude: calm Activity / Motor Behavior: appropriate eye contact Speech: normal speech Mood & Affect: euthymic mood Thought Process: normal thought process Thought Content: normal thought content Attention / Concentration: attention grossly intact Debridement Note Debridement Note Wound debrided: Venous ulceration of the left medial malleolus Laterality: Left Type of Debridement: Excisional debridement Anesthesia Used: 5% Lidocaine Gel Depth: Down to and including healthy tissue and in the subcutaneous layer Percentage of wound debrided: 100 Instrument Used: 5mm curette Tissue Removed: Slough and devitalized tissue Severity: Fat Layer Exposed Amount of bleeding with debridement: Mild Bleeding Controlled with: Compression and gauze Patient tolerated procedure: Patient tolerated procedure well Debridement Free Text: Following an excisional debridement, which was well- tolerated, the decision was made to proceed with the placement of an allograft. Based on the dimensions of the patient's ulceration, a 4 cm x 4.5 cm EpiMesh allograft was selected. The allograft was removed from its sterile packaging, and fashioned to the appropriate dimensions. It was then applied topically to the ulceration. 100% of the allograft was utilized. Once in place, the site was covered with Adaptic, which was then secured using Steri-Strips. Collagen hydrogel was then placed over the site to provide a moist wound healing environment. A dry sterile gauze dressing was then applied. A double Tubigrip compression sleeve was then applied. This represents the 10th such application of an allograft at this site. Post-Debridement Measurements and Additional Note: Post-Debridement Measurements/Treatment WC - Nurse 1 - General Ulcer Assessment Start: 07/25/25 09:26 Freq: Status: Active Protocol: LA NENA.JESUS Activity Type Activity Date Activity User E-sign Co-sign Detail Recorded Client Recorded Date Recorded By Document 07/25/25 09:26 RB [id number] 07/25/25 09:28 RB Document 08/01/25 11:37 RB [id number] 08/01/25 11:39 RB Document 08/08/25 11:31 TS [id number] 08/08/25 11:36 TS Document 08/11/25 12:48 ML [id number] 08/11/25 12:49 ML Document 08/15/25 08:55 TS [id number] 08/15/25 09:12 TS 07/25/25 08/01/25 08/08/25 09:26 11:37 11:31 - Today's Visit Information Type of service Follow-up Visit Follow-up Visit Follow-up Visit (Physician/REIMBURSEMENT REPRESENTATIVE (Physician/REIMBURSEMENT REPRESENTATIVE (Physician/REIMBURSEMENT REPRESENTATIVE ) ) ) Arrival Mode Ambulatory Ambulatory Ambulatory Transfer Assistance None None None Patient Identification Verified (Name & Yes Yes Yes ) Patient Requires Transmission-Based No No No Precautions Safety Precautions NA Vital Signs Temperature (97.8 F-99.1 F) 96.5 F L 97.9 F 96.4 F L Temperature Source Temporal Temporal Temporal Pulse Rate (60-100) 64 67 66 Pulse Location Monitor Monitor Monitor Respiratory Rate (12-18) 18 18 18 Respiratory rate source Observation Observation Observation Oxygen Delivery Method Blood Pressure (90/60-120/80) 142/69 H 146/77 H 131/80 H Blood Pressure Mean 93 100 97 Source Monitor Monitor Monitor Position Semi-Fowlers Sitting Sitting Blood Pressure Location Left Arm Left Arm Right Arm History Since Last Visit- (Skip if this is Patient's initial visit) Have you changed medications since your No No No last visit? Any new allergies or adverse reactions No No No Had a fall/change in ADL's that may No No No increase risk of falls Signs or symptoms of abuse and/or No No No neglect since last visit Have you been in the hospital since your No No No last visit? Has dressing in place as prescribed Yes Yes Yes Has compression in place as prescribed Yes Yes Yes Has offloadiing in place as prescribed N/A N/A N/A Experienced any changes in pain level or No No No management Left Footwear Regular Shoe Regular Shoe Right Footwear Regular Shoe Regular Shoe Pain Scale: 0-10 Numeric Is Patient Pain Free? Yes Yes Yes 08/11/25 08/15/25 12:48 08:55 - Today's Visit Information Type of service Nurse-only Follow-up Visit Visit (Physician/REIMBURSEMENT REPRESENTATIVE ) Arrival Mode Ambulatory Ambulatory Transfer Assistance None Patient Identification Verified (Name & Yes Yes ) Patient Requires Transmission-Based No Precautions Safety Precautions Fall Prevention Vital Signs Temperature (97.8 F-99.1 F) 96.0 F L 97.1 F L Temperature Source Temporal Temporal Pulse Rate (60-100) 65 66 Pulse Location Monitor Monitor Respiratory Rate (12-18) 15 16 Respiratory rate source Observation Observation Oxygen Delivery Method Room Air Blood Pressure (90/60-120/80) 142/61 H 150/93 H Blood Pressure Mean 88 112 Source Monitor Monitor Position Sitting Sitting Blood Pressure Location Right Arm Right Arm History Since Last Visit- (Skip if this is Patient's initial visit) Have you changed medications since your No No last visit? Any new allergies or adverse reactions No No Had a fall/change in ADL's that may No No increase risk of falls Signs or symptoms of abuse and/or No No neglect since last visit Have you been in the hospital since your No Yes last visit? Has dressing in place as prescribed Yes Yes Has compression in place as prescribed Yes Yes Has offloadiing in place as prescribed N/A N/A Experienced any changes in pain level or No No management Left Footwear Regular Shoe Right Footwear Regular Shoe Pain Scale: 0-10 Numeric Is Patient Pain Free? Yes Yes WC - Nurse 1 - General Ulcer Measurement Start: 07/25/25 09:26 Freq: Status: Active Protocol: Activity Type Activity Date Activity User E-sign Co-sign Detail Recorded Client Recorded Date Recorded By Document 07/25/25 09:26 RB [id number] 07/25/25 09:28 RB Document 08/01/25 11:37 RB [id number] 08/01/25 11:39 RB Document 08/08/25 11:31 TS [id number] 08/08/25 11:36 TS Document 08/15/25 08:55 TS [id number] 08/15/25 09:12 TS 07/25/25 08/01/25 08/08/25 09:26 11:37 11:31 Wound Center Nurse 1 #1 L Med Ankle CLUSTER -Combined with other wound No No No -Current Size (cm) - Length 4.4 4.1 4.1 -Current Size (cm) - Width 1.5 1 1 -Current Size (cm) - Depth 0.1 0.1 0.2 -Total Square Cm 6.60 4.1 4.1 -Date of Last Picture (Recall this field) -Photo Taken Yes Yes Yes -Epithelialization -Tunneling No No No -Undermining/Tunneling No No No -Circular Undermining No No No -Exudate Amt Medium Medium Medium -Exudate Type Serosanguineous Serosanguineous Serosanguineous -Wound Margin Distinct, Thickened Thickened & Outline Rolled Under Attached -Granulation Amt Medium (34-66%) Medium (34-66%) Medium (34-66%) -Granulation Quality [place] -Slough/Fibrin Yes Yes Yes -Necrosis Amt Large (67-100%) Medium (34-66%) Medium (34-66%) -Necrotic Tissue Type Adherent Slough Adherent Slough Adherent Slough -Structure Exposed N/A N/A None/Limited to Skin Breakdown -Texture (Megan-wound Skin Appearance) Excoriation Assessed Assessed -Moisture (Megan-wound Skin Appearance) Assessed Assessed,Dry/ No Abnormality, Scaly Dry/Scaly -Color (Megan-wound Skin Appearance) Assessed Assessed No Abnormality -Temperature (Megan-wound Skin No Abnormality No Abnormality No Abnormality Appearance) (Pt Warm) (Pt Warm) (Pt Warm) -Tenderness on Palpation (Megan-wound No No No Skin Appearance) -Ulcer Cleansing Wound Cleanser Soap and Water -Foul Odor after Cleansing No Yes -Anesthetic Used 5% Lidocaine 5% Lidocaine 5% Lidocaine Gel Gel Gel Lower Limb Edema Present Yes Yes No Right Calf (cm) 38.4 Right Ankle (cm) 23 Left Calf (cm) 43 47 Left Ankle (cm) 24.5 24 08/15/25 08:55 Wound Center Nurse 1 #1 L Med Ankle CLUSTER -Combined with other wound No -Current Size (cm) - Length 6.5 -Current Size (cm) - Width 1.6 -Current Size (cm) - Depth 0.1 -Total Square Cm 10.40 -Date of Last Picture (Recall this 08/15/25 field) -Photo Taken Yes -Epithelialization Medium 34-66% -Tunneling No -Undermining/Tunneling No -Circular Undermining No -Exudate Amt Medium -Exudate Type Sanguineous -Wound Margin Flat & Intact -Granulation Amt Large (67-100%) -Granulation Quality Red -Slough/Fibrin Yes -Necrosis Amt Small (1-33%) -Necrotic Tissue Type Adherent Slough -Structure Exposed None/Limited to Skin Breakdown -Texture (Megan-wound Skin Appearance) Assessed, Localized Edema -Moisture (Megan-wound Skin Appearance) Assessed -Color (Megan-wound Skin Appearance) Assessed -Temperature (Megan-wound Skin No Abnormality Appearance) (Pt Warm) -Tenderness on Palpation (Megan-wound Skin Appearance) -Ulcer Cleansing Soap and Water -Foul Odor after Cleansing No -Anesthetic Used 5% Lidocaine Gel Lower Limb Edema Present Yes Right Calf (cm) Right Ankle (cm) Left Calf (cm) 34 Left Ankle (cm) 23 WC - Nurse 2 - General Ulcer CM Notes Start: 07/25/25 09:26 Freq: Status: Active Protocol: Activity Type Activity Date Activity User E-sign Co-sign Detail Recorded Client Recorded Date Recorded By Document 07/25/25 09:45 DS [id number] 07/25/25 09:55 DS Edit Result 07/25/25 09:45 DS (1) [id number] 07/25/25 09:59 DS Document 08/01/25 12:19 DS [id number] 08/01/25 12:21 DS Document 08/08/25 12:01 DS [id number] 08/08/25 12:02 DS Document 08/15/25 09:25 DS [id number] 08/15/25 09:48 DS (1) #1 L Med Ankle CLUSTER - Percent Used 100 => 75 07/25/25 08/01/25 08/08/25 09:45 12:19 12:01 Wound Center Nurse 2 #1 L Med Ankle CLUSTER -Time 09:45 12:11 12:01 -Correct Patient Yes Yes Yes -Correct Side, Site, Position Yes Yes Yes -Correct Procedure Yes Yes Yes -Procedure Performed Yes Yes Yes -Type of Procedure Debridement Debridement Debridement -Clinical Debridement Subcutaneous Subcutaneous Subcutaneous -Tissue Removed Subcutaneous Subcutaneous Subcutaneous -Post Debridement (cm) - Length 4.2 4.0 4.0 -Post Debridement (cm) - Width 1.3 1.3 1.3 -Post Debridement (cm) - Depth 0.1 0.1 0.1 -Total Square (Post) (cm) 5.46 5.20 5.20 -Area of Debridement (cm) - Length 4.2 4.0 1.0 -Area of Debridement (cm) - Width 1.3 1.3 1.3 -Total Square (Area) (cm) 5.46 5.20 1.30 -Tunneling No No No -Undermining/Tunneling No No No -Circular Undermining No No No -Wound/Ulcer Outcome Not Healed Not Healed Not Healed -Ulcer Cleansing gauze gauze gauze -Foul Odor after Cleansing No No No -Bioengineered Tissue Yes No Yes -Type of Bioengineered Tissue Epifix Mesh Epifix Mesh -Expiration Date 01/17/30 01/17/30 -Product Lot Number [id number] -Percent Used 75 100 -Lot number of Saline Used [id number] -Bleeding Controlled with Pressure Pressure Pressure -Treatment Response Procedure Procedure Procedure Tolerated Well Tolerated Well Tolerated Well -Debridement - Subq, 1st 20sq cm No Yes No -Apply Skin Sub - 1st 25 sq cm - Legs 1 1 -Epifix Mesh Application 1-4 (per sq 11 11 cm) Pain Scale: 0-10 Numeric Is Patient Pain Free? Yes Yes Yes 08/15/25 09:25 Wound Center Nurse 2 #1 L Med Ankle CLUSTER -Time 09:25 -Correct Patient Yes -Correct Side, Site, Position Yes -Correct Procedure Yes -Procedure Performed Yes -Type of Procedure Debridement -Clinical Debridement Subcutaneous -Tissue Removed Subcutaneous -Post Debridement (cm) - Length 4.2 -Post Debridement (cm) - Width 1.5 -Post Debridement (cm) - Depth 0.1 -Total Square (Post) (cm) 6.30 -Area of Debridement (cm) - Length 4.2 -Area of Debridement (cm) - Width 1.5 -Total Square (Area) (cm) 6.30 -Tunneling No -Undermining/Tunneling No -Circular Undermining No -Wound/Ulcer Outcome Not Healed -Ulcer Cleansing -Foul Odor after Cleansing No -Bioengineered Tissue Yes -Type of Bioengineered Tissue Epifix Mesh -Expiration Date 01/17/30 -Product Lot Number [id number] -Percent Used 100 -Lot number of Saline Used [id number] -Bleeding Controlled with Pressure -Treatment Response Procedure Tolerated Well -Debridement - Subq, 1st 20sq cm No -Apply Skin Sub - 1st 25 sq cm - Legs 1 -Epifix Mesh Application 1-4 (per sq 11 cm) Pain Scale: 0-10 Numeric Is Patient Pain Free? Yes WC - Nurse 3 - General Ulcer D/C NN Start: 07/25/25 09:26 Freq: Status: Active Protocol: Activity Type Activity Date Activity User E-sign Co-sign Detail Recorded Client Recorded Date Recorded By Document 07/25/25 10:09 JF [id number] 07/25/25 10:11 JF Document 08/01/25 12:33 DS [id number] 08/01/25 12:33 DS Document 08/08/25 14:30 JF [id number] 08/08/25 14:31 JF Document 08/11/25 12:48 ML [id number] 08/11/25 12:49 ML Document 08/15/25 10:10 TS [id number] 08/15/25 10:11 TS 07/25/25 08/01/25 08/08/25 10:09 12:33 14:30 Wound Care Center Nurse 3 #1 L Med Ankle CLUSTER -Ulcer Cleansing Rinsed/ Irrigated with Saline -Primary Dressing Applied Aquacel Extra,C Hydrogel -Primary Dressing Covered/Secured with Dry Gauze & Dry Gauze, Dry Gauze & Roll Gauze, Secured with Roll Gauze, Secured with Tape Secured with Tape Tape -Other Covering -Aquacel Extra 1 -Hydrogel 1 LLE -Lotion applied to leg before compression wrap -Multi-Layered Wrap Application Multi-Layer Comp - Left ($) -Tubular Bandage Double Layer Double Layer -Size of Tubigrip Used Size D Size D -Size D ($) 2 2 -Multi-Layer Compression Left (Qty 1 applied) Pain Scale: 0-10 Numeric Is Patient Pain Free? Yes Yes Yes WC - Visit Discharge Discharge Condition Stable Stable Stable Ambulatory Status Ambulatory Ambulatory Ambulatory Transportation Private Auto Private Auto Private Auto Medication Reconcilliation completed & No Yes provided to patient/care provider Clinical Summary of Care Provided No Yes 08/11/25 08/15/25 12:48 10:10 Wound Care Center Nurse 3 #1 L Med Ankle CLUSTER -Ulcer Cleansing Not Cleansed -Primary Dressing Applied -Primary Dressing Covered/Secured with Other -Other Covering abd pad -Aquacel Extra -Hydrogel LLE -Lotion applied to leg before Yes compression wrap -Multi-Layered Wrap Application Multi-Layer Multi-Layer Comp - Left ($) Comp - Left ($) -Tubular Bandage -Size of Tubigrip Used -Size D ($) -Multi-Layer Compression Left (Qty 1 1 applied) Pain Scale: 0-10 Numeric Is Patient Pain Free? Yes Yes WC - Visit Discharge Discharge Condition Stable Ambulatory Status Ambulatory Transportation Private Auto Medication Reconcilliation completed & provided to patient/care provider Clinical Summary of Care Provided Yes Charges/Coding Procedures Integumentary [id number]: [id number] Skin sub graft trnk/arm/leg Assessment/Plan Assessment/Plan (1) 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: CODE(S): I83.003 - Varicose veins of unspecified lower extremity with ulcer of ankle; L97.302 - Non-pressure chronic ulcer of unspecified ankle with fat layer exposed QUALIFIERS: Varicose vein presence: with varicose veins Laterality: left Qualified Code(s): I83.023 - Varicose veins of left lower extremity with ulcer of ankle; L97.322 - Non-pressure chronic ulcer of left ankle with fat layer exposed (2) Venous stasis ulcer: CODE(S): I83.009 - Varicose veins of unspecified lower extremity with ulcer of unspecified site; L97.909 - Non-pressure chronic ulcer of unspecified part of unspecified lower leg with unspecified severity QUALIFIERS: Venous stasis ulcer site: ankle Varicose vein presence: with varicose veins Laterality: left Non-pressure ulcer stage: with fat layer exposed Qualified Code(s): I83.023 - Varicose veins of left lower extremity with ulcer of ankle; L97.322 - Non-pressure chronic ulcer of left ankle with fat layer exposed (3) Ulcer of extremity due to chronic venous insufficiency: CODE(S): L98.499 - Non-pressure chronic ulcer of skin of other sites with unspecified severity; I87.2 - Venous insufficiency (chronic) (peripheral) (4) Venous insufficiency (chronic) (peripheral): CODE(S): I87.2 - Venous insufficiency (chronic) (peripheral) (5) Venous hypertension, chronic, with ulcer: CODE(S): I87.319 - Chronic venous hypertension (idiopathic) with ulcer of unspecified lower extremity; L97.909 - Non-pressure chronic ulcer of unspecified part of unspecified lower leg with unspecified severity (6) Venous stasis dermatitis: CODE(S): I87.2 - Venous insufficiency (chronic) (peripheral) (7) Acquired lymphedema of lower extremity: CODE(S): I89.0 - Lymphedema, not elsewhere classified (8) Bilateral leg edema: CODE(S): R60.0 - Localized edema (9) Localized swelling of both lower legs: CODE(S): R22.43 - Localized swelling, mass and lump, lower limb, bilateral (10) History of esophagogastroduodenoscopy (EGD): CODE(S): Z98.890 - Other specified postprocedural states (11) Delayed wound healing: CODE(S): T14.8XXD - Other injury of unspecified body region, subsequent en counter (12) History of cholecystectomy: CODE(S): Z90.49 - Acquired absence of other specified parts of digestive tract (13) History of repair of hip fracture: CODE(S): Z98.890 - Other specified postprocedural states (14) History of spinal surgery: CODE(S): Z98.890 - Other specified postprocedural states (15) History of hernia repair: CODE(S): Z98.890 - Other specified postprocedural states; Z87.19 - Personal history of other diseases of the digestive system (16) Bilateral lower extremity edema: CODE(S): R60.0 - Localized edema (17) JOSHUA (obstructive sleep apnea): CODE(S): G47.33 - Obstructive sleep apnea (adult) (pediatric) (18) Osteopenia: CODE(S): M85.80 - Other specified disorders of bone density and structure, unspecified site (19) Restless leg syndrome: (20) GERD (gastroesophageal reflux disease): CODE(S): K21.9 - Gastro-esophageal reflux disease without esophagitis QUALIFIERS: Esophagitis presence: esophagitis presence not specified Qualified Code(s): K21.9 - Gastro-esophageal reflux disease without esophagitis (21) Celiac disease: CODE(S): K90.0 - Celiac disease (22) Asthma: CODE(S): J45.909 - Unspecified asthma, uncomplicated QUALIFIERS: Asthma severity: severe Asthma persistence: persistent Asthma complication type: with acute exacerbation Qualified Code(s): J45.51 - Severe persistent asthma with (acute) exacerbation PLAN: Plan This is a 80-year-old male with a long history of chronic venous disease. He presented with an ulceration at the site of the left medial malleolus. There are stigmata of chronic venous disease, including venous stasis dermatitis, hyperpigmentation, swelling, lymphedema, etc. patient has had recurrent venous ulcerations at this site. The patient has previously undergone chemical ablation of the left great saphenous vein in March 2025. A lengthy discussion has been undertaken with the patient regarding the appropriate conservative measures for outpatient management of his venous disease. The patient has been encouraged to continue sleeping on a flat surface at night. His legs are to be elevated during daytime hours as well, as much as possible. Leg elevation is to be to heart level, or higher. Prolonged idle sitting has been discouraged. Activity/ambulation has been encouraged. The 10th and final allograft has been applied to the venous ulceration at this visit. The allograft and its dressings are to be left in place, intact, and undisturbed until the patient returns in 1 week for reevaluation. For compression, we are to implement the use of a 3M 2 layer compression wrap, which will be changed twice weekly. The patient underwent a venous duplex examination on July 24, 2025, which revealed chronic venous changes in the left femoral vein and left popliteal vein. 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 The left great saphenous vein appears to be ablated from the proximal thigh to the distal calf. These results have been discussed with the patient. It was felt that this patient with such chronic venous disease and manifestations may have impaired venous outflow in the left lower extremity. Therefore, a venous duplex examination of the inferior vena cava and left iliac venous system has been obtained, performed on August 11, 2025. Based on the findings of this ultrasound, there is no evidence of venous outflow obstruction in the left lower extremity. There is thought that the patient may benefit from the use of pneumatic, mechanical compression pumps in the left lower extremity. This issue has been discussed with the patient on several occasions. The patient has expressed his reluctance to consider implementing such pumps, but has indicated he will consider implementing these pumps if made available. Efforts will be undertaken to procure the pumps on the patient's behalf. It is felt that their use will enhance venous return and provide benefit to the patient. Consideration may be given to repeating a venous ultrasound of the left lower extremity in more detail, to determine whether there are additional, as yet unidentified, incompetent axial veins or perforators to account for the patient's venous manifestations. The patient is to enhance his efforts at lower extremity elevation, avoidance of idle standing and sitting, etc. He is to follow-up in 1 week for reevaluation. Total time: 26 minutes
--- NOTE | 2025-08-17 10:32 | WC ---
PHOTO-LEFT MED ANKLE 08/15/25
[2025-08-18 12:19] VITALS: BP 145/76; PULSE 58; RESP 16; TEMP 36.2
== END 2025-08-18 23:59 | disposition home or self-care (01) ==
LOC: WC 12:00
PROVIDERS: PCP Family Medicine; Referring Provider Family Medicine; Visit Provider Surgery
DX: I87.332 Chronic venous hypertension (idiopathic) with ulcer and inflammation of left lower extremity (principal); J45.51 Severe persistent asthma with (acute) exacerbation; L98.491 Non-pressure chronic ulcer of skin of other sites limited to breakdown of skin; L97.322 Non-pressure chronic ulcer of left ankle with fat layer exposed; K90.0 Celiac disease; Z79.890 Hormone replacement therapy; K21.9 Gastro-esophageal reflux disease without esophagitis; Z87.891 Personal history of nicotine dependence; Z86.718 Personal history of other venous thrombosis and embolism; G25.81 Restless legs syndrome; I89.0 Lymphedema, not elsewhere classified; I87.2 Venous insufficiency (chronic) (peripheral); M85.80 Other specified disorders of bone density and structure, unspecified site; G47.33 Obstructive sleep apnea (adult) (pediatric); Z90.49 Acquired absence of other specified parts of digestive tract; T14.8XXD Other injury of unspecified body region, subsequent encounter; R22.43 Localized swelling, mass and lump, lower limb, bilateral; I86.8 Varicose veins of other specified sites
CPT/HCPCS: 11042; 15271; 29581; 93970; 93978; Q4186

== ENCOUNTER → 2025-09-04 | Outpatient (CLI) | payer MEDICARE, OTHER, SELFPAY ==
[2025-09-04 12:34] LABS: Hematocrit 34.2 % (40-54); Hemoglobin 11.2 g/dL (13.0-16.5); Immature Granulocytes Count 0.010 X10^3/uL (0.0-0.0); Mean Corp Hgb Conc 32.7 g/dL (32-36); Mean Corpuscular Volume 97.7 fL (80-94); Mean Platelet Vol. 10.3 fl (6.2-12.0); NRBC Flagged by Analyzer 0 % (0-5); Platelet Count 188 K/mm3 (150-450); RBC Distribution Width CV 14.1 % (11.6-14.6); RBC Distribution Width SD 50.4 fl (35.1-43.9); Red Blood Count 3.50 M/mm3 (4.6-6.2); White Blood Count 3.1 K/mm3 (4.4-11.0)
[2025-09-04 13:10] LABS: AST(SGOT) 25 U/L (<=37); Alanine Aminotransfer ALT/SGPT 19 U/L (<=46); Albumin, Serum 4.2 g/dL (3.4-4.8); Alkaline Phosphatase 105 U/L (40-129); Anion Gap 11 (5-15); BUN 13 mg/dL (4-19); BUN/Creat Ratio 16.3 RATIO (10-20); Calcium,Total 9.6 mg/dL (7.6-11.0); Carbon Dioxide 22.9 mmol/L (21.0-32.0); Chloride 111 mmol/L (98-108); Ferritin 43 ng/mL (37-417); Globulin 3.1 g/dL (2.2-4.2); Glucose 87 mg/dL (70-99); Iron 64 ug/dL (65-175); Potassium 4.0 mmol/L (3.3-5.1); Vitamin B12 488 pg/mL (180-914)
== END | disposition home or self-care (01) ==
LOC: BFHLAB 10:20
PROVIDERS: PCP Family Medicine; Visit Provider Family Medicine
DX: D64.9 Anemia, unspecified (principal); R53.83 Other fatigue
CPT/HCPCS: 36415; 80053; 82607; 82728; 83540; 84439; 84443; 85025

== ENCOUNTER 2025-09-05 14:53 | Outpatient (CLI) | payer MEDICARE, OTHER, SELFPAY ==
[2025-09-05 15:00] VITALS: BP 131/72; PULSE 70; RESP 16; TEMP 36.3; O2SAT 97
--- OUTSIDE RECORDS SUMMARY | 2025-09-05 19:09 | XMS RPT_ITS | CCD ---
Author Organization [facility] Care Team Providers Care Stone Paver Name Role Phone JAREK ECHEVARRIA Unavailable Unavailable JAREK ECHEVARRIA Unavailable Unavailable PETER FINNEY Unavailable Unavailable SAVANA, WES Unavailable Unavailable BICAKODAK, VERA Unavailable Unavailable JAREK ECHEVARRIA Unavailable Unavailable JAREK ECHEVARRIA Unavailable Unavailable JAREK ECHEVARRIA Unavailable Unavailable PETER FINNEY Unavailable Unavailable Moises WIRELESS CONSTRUCTION MANAGER, Leelee N Unavailable Unavailab le Moises WIRELESS CONSTRUCTION MANAGER, Leelee N Unavailable Unavailab le IMCA Referring Unavailable PETER FINNEY Primary Care Unavailable CARMEN ECHEVARRIA Referring Unavailable PETER FINNEY Primary Care Unavailable CARMEN ECHEVARRIA Attending Unavailable PETER FINNEY Primary Care Unavailable IMCA Referring Unavailable CARMEN ECHEVARRIA Attending Unavailable PETER FINNEY Primary Care Unavailable CARMEN ECHEVARRIA Referring Unavailable CRISPIN JOYCE ([facility]) Referring UnavailPETER Montoya Primary Care Unavailable CRISPIN JOYCE ([facility]) Referring UnavailCARMEN Candelario ZOAB Referring CRISPIN Baker ([employer] ATTENDANT) Referring UnavailCARMEN Candelario ZOSHERRI Attending Dr. Peter Cota Primary Care Provider Dr. Peter Finney Referring Provider Dr. Abel Mcgee Attending Provider XENA Plaza Attending Provider [phone] Dr. Peter Finney Primary Care Provider Dr. Peter Finney Referring Provider La TEA LEAF READER, TEA LEAF READER-C Neris Attending Provider [phone] Peter Finney MD Primary Care Provider PETER FINNEY Primary Care Unavailable MAXX MAYER Attending Unavailable MAXX MAYER Admitting Unavailable Randa Joseph DO Primary Care Provider Dr. Peter Finney Referring Provider Dr. Abel Mcgee Attending Provider Dr. Randa Joseph Primary Care Provider Dr. Peter Finney Referring Provider Dr. Abel Mcgee Attending Provider Dr. Randa Joseph Primary Care Provider [phone] Dr. Randa Joseph Primary Care Provider [phone] Dr. Murray Mckee Attending Provider [phone] Merrill Burns Referring Provider Dr. Randa Joseph Referring Provider Dr. Abel Mcgee Attending Provider Dr. David Unger Referring Provider Dr. David Unger Other Provider HAYLEE Blair Attending Provider Dr. Randa Joseph Primary Care Provider [phone] Murray Mckee Attending Provider [phone] Merrill Burns Referring Provider Dr. Randa Joseph Referring Provider Dr. Abel Mcgee Attending Provider [phone] Dr. David Unger Referring Provider Dr. David Unger Other Provider HAYLEE Blair Attending Provider Dr. Randa Joseph Primary Care Provider [phone] Murray Mckee Attending Provider [phone] Murray Mckee Referring Provider [phone] Murray Mckee Other Provider Dr. Randa Joseph Primary Care Provider Dr. Randa Joseph Referring Provider XENA Morin Attending Provider Vamshi DO, Randa Orta Primary Care Provider JAQUI FELTON Referring Unavailable VAMSHI, RANDA A Primary Care Unavailable VAMSHI, RANDA A Primary Care Unavailable VAMSHI, RANDA A Primary Care Unavailable YAEL NAIR Attending Unavailable Vamshi ARRIAGA, Dr. Baca Primary Care Provider Jordon SAMAYOA, Dr. Barragan Attending Provider Jordon SAMAYOA, Dr. Barragan Emergency Provider Dr. Randa Joseph DO Attending Provider [phone] Vamshi ARRIAGA, Dr. Baca Referring Provider Luis Fernando BROOKS-C, Ivelisse Diggs Attending Provider Red SAMAYOA, Dr. Jarrett Attending Provider Red SAMAYOA, Dr. Jarrett Referring Provider La TEA LEAF READER-CNeris Attending Provider La BROOKS-CNeris Referring Provider YAEL GALLEGOS Attending Provider YAEL GALLEGOS Referring Provider Luis Fernando BROOKS-CIvelisse Referring Provider Dr. Mario Koo MD Attending Provider [phone] Dr. Mario Koo MD Emergency Provider Dr. López Joseph MD Attending Provider Luis Fernando BROOKS-CIvelisse Other Provider Dr. Abel Mcgee DO Attending Provider Red SAMAYOA, Dr. Jarrett Other Provider [phone] Vamshi ARRIAGA, Dr. Baca Primary Care Provider [phone] Vamshi ARRIAGA, Dr. Baca Referring Provider Dr. Randa Joseph DO Attending Provider Vamshi ARRIAGA, Dr. Baca Primary Care Provider Luis Fernando TEA LEAF READER-CIvelisse Attending Provider La TEA LEAF READER-C, Neris Attending Provider La TEA LEAF READER-C, Neris Referring Provider Vamshi ARRIAGA, Dr. Baca Referring Provider Grant MANZO, Dr. Momin Attending Provider [phone] Mikel PA, Salima Attending Provider [phone] Vamshi ARRIAGA, Dr. Baca Primary Care Provider Luis Fernando TEA LEAF READER-C, Ivelisse Diggs Attending Provider Luis Fernando BROOKS-C, Ivelisse Diggs Referring Provider Mikel PA, Salima Referring Provider [phone] Mikel PA, Salima Other Provider Shona SAMAYOA, Dr. Jose L Orta Attending Provider Rafi SAMAYOA, Dr. Gao Attending Provider [phone] Grant MANZO, Dr. Momin Attending Provider Dr. Jose L Nagel MD Attending Provider Grant MANZO, Dr. Momin Referring Provider Dr. Randa Joseph DO Primary Care Provider Vamshi ARRIAGA, Dr. Baca Referring Provider La TEA LEAF READER-C, Neris Attending Provider La TEA LEAF READER-C, Neris Referring Provider Luis Fernando BROOKS-CIvelisse Attending Provider Dr. Murray Mckee MD Referring Provider Dr. Murray Mckee MD Other Provider YAEL GALLEGOS Attending Provider YAEL GALLEGOS Referring Provider Vamshi ARRIAGA, Dr. Baca Primary [facility] Provider [facility] , Dr. Baca Attending Provider [facility] , Dr. Baca Referring Provider [phone] [facility] , Dr. Baca Primary Care Provider La TEA LEAF READER-C, Neris Attending Provider La TEA LEAF READER-C, Neris Referring Provider Vamshi ARRIAGA, Dr. Baca Primary Care Physician Vamshi DO, Dr. Baca Referring Provider [phone] Luis Fernando TEA LEAF READER-C, Ivelisse Diggs Attending Physician La TEA LEAF READER-C, Neris Attending Physician [phone] Dr. Merrill Burns DPM Attending Physician [phone] Dr. Murray Mckee MD Attending Physician Rafi SAMAYOA, Dr. Gao Nurse Practitioner YAEL GALLEGOS Attending Physician Mikel PA, Salima Attending Physician Mikel PA, Salima Referring Provider Shona SAMAYOA, Dr. Jose L Orta Attending Physician Vamshi ARRIAGA, Dr. Baca Primary Care Physician [phone] Dr. Murray Mckee MD Attending Physician Vamshi ARRIAGA, Dr. Baca Referring Provider La TEA LEAF READER-C, Neris Attending Physician La TEA LEAF READER-C, Neris Referring Provider Dr. Merrill Burns DPM Attending Physician Shona SAMAYOA, Dr. Jose L Orta Nurse Practitioner Luis Fernando TEA LEAF READER-C, Ivelisse Diggs Attending Physician Vamshi, Randa Primary Care Unavailable Merrill Burns Attending Unavailable Vamshi, Randa Referring Unavailable Tovar TEA LEAF READER, Neris Referring Unavailable Tovar TEA LEAF READER, Neris Attending Unavailable Vamshi, Randa Primary Care Unavailable Tovar TEA LEAF READER, Neris Attending Unavailable Tovar TEA LEAF READER, Neris Referring Unavailable Vamshi, Randa Primary Care Unavailable Merrill Burns Attending Unavailable Vamshi, Randa Referring Unavailable Vamshi, Randa Primary Care Unavailable Vamshi, Randa Primary Care Unavailable Jose L Nagel Attending Unavailable Vamshi, Randa Referring Unavailable Tovar TEA LEAF READER, Neris Attending Unavailable Tovar TEA LEAF READER, Neris Referring Unavailable Vamshi, Randa Primary Care Unavailable Vamshi, Randa Primary Care Unavailable Vamshi, Randa Referring Unavailable Vamshi, Randa Attending Unavailable Tovar TEA LEAF READER, Neris Attending Unavailable Tovar TEA LEAF READER, Neris Referring Unavailable Vamshi, Randa Primary Care Unavailable Ivelisse Gould Attending Unavailable Ivelisse Gould Referring Unavailable Vamshi, Randa Primary Care Unavailable Vamshi, Randa Primary Care Unavailable VamshiLópez Attending Unavailable Vamshi, Randa Primary Care Unavailable Yung Ruvalcaba Attending Unavailable Merrill Burns Attending Unavailable Vamshi, Randa Referring Unavailable Vamshi, Randa Primary Care Unavailable Vamshi, Randa Attending Unavailable Vamshi, Randa Primary Care Unavailable Merrill Burns Attending Unavailable Vamshi, Randa Primary Care Unavailable Vamshi, Randa Referring Unavailable Morin, Salima Attending Unavailable Morin, Salima Referring Unavailable Vasmhi, Randa Primary Care Unavailable YAEL RODRIGUEZ Attending Unavailable Vamshi, Randa Primary Care Unavailable MICHAELYAEL PALM Referring Unavailable Vamshi, Randa Primary Care Unavailable Luiza Moon Referring Unavailable Luiza Moon Attending Unavailable Morin, Salima Referring Unavailable Rupert, Murray Attending Unavailable Vamshi, Randa Primary Care Unavailable Vamshi, Randa Primary Care Unavailable Rafi, Murray Referring Unavailable Rupert, Murray Attending Unavailable Morin, Salima Referring Unavailable Morin, Salima Attending Unavailable Vamshi, Randa Primary Care Unavailable Ivelisse Gould Attending Unavailable Ivelisse Gould Referring Unavailable Luiza Moon Consulting Unavailable Vamshi, Randa Primary Care Unavailable Tovar TEA LEAF READER, Neris Referring Unavailable Vamshi, Randa Primary Care Unavailable La TEA LEAF READER, Neris Attending Unavailable Vamshi, Randa Primary Care Unavailable Ivelisse Gould Attending Unavailable Vamshi, Randa Referring Unavailable Vamshi, Randa Primary Care Unavailable YAEL RODRIGUEZ Attending Unavailable MICHAELYAEL PALM Referring Unavailable Ivelisse Gould Attending Unavailable Vamshi, Randa Primary Care Unavailable Vamshi, Randa Referring Unavailable Vamshi, Randa Primary Care Unavailable Rupert, Murray Attending Unavailable Rafi, Murray Consulting Unavailable Rafi, Murray Referring Unavailable Vamshi, Randa Primary Care Unavailable MorinEsteban muroison Referring Unavailable Murray Mckee Attending Unavailable Ivelisse Gould Consulting Unavailable Ivelisse Gould Referring Unavailable Vamshi, Randa Primary Care Unavailable Abel Mcgee Attending Unavailable Vamshi, Randa Primary Care Unavailable MorinEsteban muroison Attending Unavailable Vamshi, Randa Referring Unavailable RuIvelisse hurst Attending Unavailable Vamshi, Randa Referring Unavailable Vamshi, Randa Primary Care Unavailable RuIvelisse hurst Attending Unavailable Vamshi, Randa Primary Care Unavailable Vamshi, Randa Referring Unavailable MorinEstebanSalima Attending Unavailable Vamshi, Randa Referring Unavailable Vamshi, Randa Primary Care Unavailable Vamshi, Randa Primary Care Unavailable Vamshi, Randa Referring Unavailable Vamshi, Randa Attending Unavailable La TEA LEAF READER, Neris Attending Unavailable La TEA LEAF READER, Neris Referring Unavailable Vamshi, Randa Primary Care Unavailable Tovar TEA LEAF READER, Neris Referring Unavailable Tovar TEA LEAF READER, Neris Attending Unavailable Vamshi, Randa Primary Care Unavailable Vamshi, Randa Primary Care Unavailable Jose L Nagel Attending Unavailable Vamshi, Randa Referring Unavailable Vamshi, Randa Primary Care Unavailable Jose L Nagel Attending Unavailable Vamshi, Randa Referring Unavailable Ivelisse Gould Attending Unavailable Ivelisse Gould Referring Unavailable Vamshi, Randa Primary Care Unavailable Vamshi, Randa Primary Care Unavailable Mario Koo Attending Unavailable La TEA LEAF READER, Neris Referring Unavailable La TEA LEAF READER, Neris Attending Unavailable Vamshi, Randa Primary Care Unavailable Allergies Allergy Classification Reported Allergen(s) Allergy Type Date of Onset Reaction(s) Facility (1 source) Gluten Drug allergy (disorder) [facility] Repository (11 sources) Adhesive agent; Translations: [ADHESIVE] Propensity to adverse reactions (disorder) 5 Rash [facility] Repository (11 sources) Wheat gluten extract; Translations: [WHEAT GLUTEN] Drug Allergy 0 Mental Status Change, Intolerance, Diarrhea [facility] Repository (20 sources) Wheat gluten extract Drug Allergy 2 Other [facility] (1 source) Gluten Drug allergy (disorder) 5 [facility] Repository Medications Current Medications Medication Drug Class(es) Dates Sig (Normalized) Sig (Original) [id number] actuat albuterol 0.09 mg/actuat metered dose inhaler (20 sources) beta2-Adrenergic Agonist Start: 03-28-2025 Start: 03-25-2022 take 1 puff(s) by in [...] NEEDED as needed for Sob &/Or Wheezing 8.5 September 22, 2023 9:07am March 01, 2025 9:41am Start: 09-20-2020 End: 09-22-2023 take 1 puff(s) by inhalation every four hours as needed Albuterol Sulfate Discontinued 1 - 2 PUFF INHALATION EVERY 4 HOURS NEEDED 8.5 March 25, 2022 7:56am September 22, 2023 9:08am [...] sources) Interleukin-5 Receptor alpha-directed Cytolytic Antibody Start: 07-11-2025 Start: 05-17-2021 benralizumab ( FASENRA) 30 mg/mL injection Inject subcutaneously every 8 weeks. 05/17/2021 Active Start: 12-28-2020 End: 07-11-2025 Benralizumab (Fasenra) 30 mg /mL syringe Discontinued 30 mg SC every 4 weeks 1 December 28, 2020 1:00am July 11, 2025 2:20pm Comment on above: Inject subcutaneousl y every 8 weeks. bimatoprost 0.3 mg/ml ophthalmic solution (18 sources) Prostaglandin Analog Start: take 0.03 drop(s) into the eye(s) once daily cyclobenzaprine hydrochloride 10 mg oral tablet (4 sources) Muscle Relaxant Start: take 0.5-1 tablets by mouth three times daily as needed for muscle spasms cyclobenzaprine (FLEXERIL) 10 mg tablet TAKE 1/2 TO 1 TABLET BY MOUTH 3 TIMES DAILY NEEDED FOR SPASMS 01/27/2023 Active Comment on above: TAKE 1/2 TO 1 TABLET BY MOUTH 3 TIMES DAILY NEEDED FOR SPASMS 1 ml denosumab 60 mg/ml prefilled syringe (20 sources) RANK Ligand Inhibitor Start: Start: 03-22-2019 denosumab (PRO JEANNIE) 60 mg/mL Inject subcutaneously once every 6 months. 03/22/2019 Active Comment on above: Inject subcutaneousl y once every 6 months. diclofenac potassium 50 mg oral tablet (18 sources) Nonsteroidal Anti-inflammatory Drug Start: 10-04-20 24 take 1 tablet by mouth three times daily as needed for pain donepezil hydrochloride 5 mg oral tablet (13 sources) Start: 03-28-20 25 take 1 tablet by mouth at bedtime doxycycline hyclate 100 mg oral tablet (20 sources) Tetracycline-class Drug Start: 02-15-20 End: 02-25-20 23 take 1 tablet by [...] Discontinued 100 mg PO TWICE A DAY 14 0 October 09, 2017 1:00am October 09, 2017 10:39pm Start: 07-16-2017 End: 07-24-2017 take 1 capsule by mouth twice daily Doxycycline Monohydrate 100 MG capsule Discontinued 100 mg PO TWICE A DAY 7 0 July 16, 2017 12:00am July 24, 2017 3:28pm Comment on above: [facility] 7 [facility]. Take [facility] by [facility] for 10 days. ergocalciferol 1.25 mg oral capsule (20 sources) Provitamin D2 Compound Start: 10-21-2019 Start: 10-13-2018 take 1 capsule by [facility] every week ergocalciferol, vitamin D2, (DRISDOL) 50,000 unit capsule Take 1 capsule by mouth once each week. 0 10/13/2018 Active Comment on above: Take 1 capsule by [facility] once each week. ferrous gluconate 324 mg oral tablet (18 sources) Start: 5 take 1 tablet by mouth twice daily finasteride 5 mg oral tablet (20 sources) 5-alpha Reductase Inhibitor Start: 4 take 1 tablet by mouth once daily fluticasone propionate 0.05 mg/actuat metered dose nasal spray (20 sources) Corticosteroid Start: 6 take 2 spray(s) nasal route once daily fluticasone (FLONASE) 50 mcg/actuation nasal spray Use 2 Sprays in each nostril once daily. 1 Bottle 6 02/26/2016 Active Start: 04-25-2015 End: 03-25-2022 Start: 04-25-2015 End: 03-25-2022 Fluticasone Propionate Activ e 2 SPRAY NASAL TWICE A DAY March 25, 2022 7:59am Comment on above: Use 2 Sprays in each nostril once daily. 60 actuat fluticasone propio mikie 0.232 mg/actuat / salmeterol xinafoate 0.014 mg/actuat dry powder inhaler (20 sources) Corticosteroid, beta2-Adrenergic Agonist Start: 10-04-2024 take 1 puff(s) by in halation twice [...] 1 Puff as ins tructed twice daily. furosemide 40 mg oral tablet (6 sources) Loop Diuretic Start: 5 take 1 tablet by mouth once daily levothyroxine sodium 0.088 mg oral tablet (20 sources) l-Thyroxine Start: 2 take 1 tablet by mouth once daily levothyroxine (SYNTHROID) 88 mcg tablet Take 88 mcg by mouth once daily. 05/29/2022 Active Start: 03-21-2022 take 2 tablets by [facility] once daily Start: 03-21-2022 take 100 ug by mouth [...] take 1 tablet by mouth once daily Start: 10-09-2017 End: 10-22-2017 take 1 tablet by mouth at bedtime Pramipexole 1 MG tablet Discontinued 1 mg PO AT BEDTIME October 09, 2017 10:39pm October 22, 2017 11:55am restless leg syndrome Start: 08-07-2017 MIRAPEX TABS a s directed PRAMIPEXOLE DIHYDROCHLORIDE TABS [id number] Leeleesurya De Leon LPN Start: 04-03-2014 End: 09-22-2022 Pramipexole 1.5 MG tablet Discontinued 1 {tbl} PO AT BEDTIME April 03, 2014 12:00am September 22, 2022 8:41am restless legs Start: 04-03-2014 End: 09-22-2022 take 1 tablet by mouth at bedtime Pramipexole Discontinued 1 TABLET PO AT BEDTIME April 03, 2014 12:00am September 22, 2022 8:41am Comment on above: Take 1 tablet by claudio daily at bedtime. 125 ml sodium chloride [...] Active Start: 07-12-2017 take 1 capsule by mouth at bed time Comment on above: TAKE 1 CAPSULE BY [facility] ONCE DAILY. Zinc Acetate (20 sources) [...] 1000 mg PO EVERY 8 HOURS 90 0 October 09, 2017 1:00am October 09, 2017 [...] Take one tablet 5 times daily ACYCLOVIR [id number] Mike MCCALLUM amoxicillin 875 mg / clavulanate [...] tablet Discontinued 1 {tbl} PO Q12H 20 10 0 October 01, 2021 1:00am October 10, 2021 1:00am October 11, 2021 1:01am Acute sinusitis, unspecified Ampicillin (2 sources) Penicillin-class Antibacterial Start: 08-07-2017 AMPICILLIN CAPS as directed AMPICILLIN CAPS [id number] Leelee De Leon LPN apixaban 2.5 mg oral tablet (20 sources) Factor Xa Inhibitor Start: 07-16-2017 End: 07-24-2017 take 1 tablet by mouth twice daily Apixaban (Eliquis) 2.5 MG tablet Discontinued 2.5 mg PO TWICE A DAY 0 July 16, 2017 12:00am July 24, 2017 3:29pm aspirin 81 mg chewable tablet (20 sources) Platelet Aggregation Inhibitor, Nonsteroidal Anti-inflammatory Drug Start: 08-04-2017 End: 10-09-2017 take 1 tablet by mouth once daily Aspirin 81 MG Tab.Chew Discontinued 81 mg PO DAILY@0800 August 04, 2017 12:00am October 09, 2017 10:11am [facility] azithromycin 250 mg oral tablet (20 sources) Macrolide Antimicrobial Start: 11-23-2020 End: 12-28-2020 take 2-5 tablets by mouth once daily Azithromycin 250 mg tablet Discontinued 0 PO .COMPLEX 6 0 November 23, 2020 1:00am December 28, 2020 [...] 25, 2023 2:26pm Start: 09-22-2023 End: 11-25-2023 Budesonide-Formoterol (Symbi tati) 160-4.5 mcg/actuation HFA aerosol inhaler Discontinued 2 NMA INHALATION TWICE A DAY September 22, 2023 9:07am November 25, 2023 2:26pm Start: 09-22-2023 End: 11-25-2023 take 1 puff(s) by inhalation twice daily Budesonide-Formoterol (Symbicort) 160-4.5 mcg/actuation HFA aerosol inhaler Discontinued 2 PUFF INHALATION TWICE A DAY September 22, 2023 9:07am November 25, 2023 2:26pm Start: 09-22-2023 End: 11-25-2023 take 1 puff(s) by inhalation twice daily Budesonide-Formoterol (Symbicort) 160-4.5 mcg/actuation HFA aerosol inhaler Discontinued 2 PUFF INHALATION TWICE A DAY September 22, 2023 8:07am November 25, 2023 1:26pm Start: 09-22-2023 take 1 puff(s) by in halation twice daily Budesonide-Formoterol (Symbicort) 160-4.5 mcg/actuation HFA aerosol inhaler Active 2 PUFF INHALATION TWICE A DAY September 22, 2023 8:07am Start: 03-25-2022 End: 09-22-2023 Budesonide-Formoterol (Symbi tati) 160-4.5 mcg/actuation HFA aerosol inhaler Discontinued 2 NMA INHALATION TWICE A DAY 10 29March 25, 2022 7:55am September 22, 2023 9:08am Start: 03-25-2022 End: 09-22-2023 Budesonide-Formoterol (Symbi tati) [...] Active 2 PUFF INHALATION TWICE A DAY March 25, 2022 6:55am Start: 03-25-2022 take 1 puff(s) by in halation twice daily Budesonide-Formoterol (Symbicort) 160-4.5 mcg/actuation HFA aerosol inhaler Active 2 PUFF INHALATION TWICE A DAY March 25, 2022 7:55am Start: 09-25-2021 End: 03-25-2022 Budesonide-Formoterol (Symbi tati) 160-4.5 mcg/actuation HFA aerosol inhaler Discontinued 2 NMA INHALATION TWICE A DAY 10 29September 25, 2021 8:43am March 25, 2022 7:56am Start: 09-25-2021 End: 03-25-2022 Budesonide-Formoterol (Symbi tati) 160-4.5 mcg/actuation HFA aerosol inhaler Discontinued 2 NMA INHALATION TWICE A DAY September 25, 2021 8:43am March 25, 2022 [...] Active 2 PUFF INHALATION TWICE A DAY September 25, 2021 8:43am Start: 02-12-2021 End: 09-25-2021 Budesonide-Formoterol (Symbi tati) 160-4.5 mcg/actuation HFA aerosol inhaler Discontinued 2 NMA INHALATION TWICE A DAY 10 29February 12, 2021 10:44am September 25, 2021 8:43am Start: 02-12-2021 End: 09-25-2021 Budesonide-Formoterol (Symbi ttai) 160-4.5 mcg/actuation HFA aerosol inhaler Discontinued 2 [...] 12, 2021 10:44am Start: 08-20-2020 End: 02-12-2021 Budesonide-Formoterol (Symbi tati) 160-4.5 mcg/actuation HFA aerosol inhaler Discontinued 2 NMA INHALATION TWICE A DAY 1 August 20, 2020 12:49pm February 12, 2021 10:44am Start: 08-20-2020 End: 02-12-2021 take 1 puff(s) by inhalation twice daily Budesonide-Formoterol (Symbicort) 160-4.5 mcg/actuation HFA aerosol inhaler Discontinued 2 PUFF INHALATION TWICE A DAY August 20, 2020 11:49am February 12, 2021 9:44am Start: 08-20-2020 End: 02-12-2021 take 1 puff(s) by inhalation twice daily Budesonide-Formoterol (Symbicort) 160-4.5 mcg/actuation HFA aerosol inhaler Discontinued 2 PUFF INHALATION TWICE A DAY August 20, 2020 12:49pm February 12, 2021 10:44am Start: 05-01-2020 End: 08-20-2020 Budesonide-Formoterol (Symbi tati) 160-4.5 mcg/actuation HFA aerosol inhaler Discontinued 2 NMA INHALATION TWICE A DAY 1 May 01, 2020 11:23am August 20, 2020 12:51pm Start: 05-01-2020 End: 08-20-2020 Budesonide-Formoterol (Symbi tati) [...] Discontinued 2 PUFF INHALATION TWICE A DAY December 05, 2019 1:00am May 01, 2020 11:23am calcium carbonate 1250 mg / cholecalciferol 600 unt oral tablet (20 sources) Vitamin D Start: 07-16-2017 End: 09-30-2017 Calcium Carbonate-Vitamin D3 ([place] 500 + D3) 1 EACH tablet Discontinued 1 NMA PO TWICE A DAY 60 0 July 24, 2017 3:29pm September 30, 2017 11:09am cephalexin 500 mg oral capsule (20 sources) Cephalosporin Antibacterial Start: 10-21-2019 End: 12-05-2019 take 1 capsule by mouth every six hours Cephalexin 500 MG capsule Discontinued 500 mg PO EVERY 6 HOURS 40 0 October 21, 2019 1:00am December 05, 2019 2:37pm CLONAZEPAM TABS (13 sources) Benzodiazepine Start: 08-07-2017 KLONOPIN TABS as directed CLONAZEPAM TABS [id number] Leelee De Leon LPN Start: 12-20-2015 take 2 tablets by [facility] once daily at bedtime clonazePAM (KLONOPIN) 0.5 [...] 09, 2017 10:39pm October 22, 2017 11:53am supplement ibuprofen 200 mg oral capsule (20 sources) [...] (20 sources) Prostaglandin Analog Start: 11-25-2023 End: 10-04-2024 Latanoprost 0.005 % drops Discontinued 1 NMA [...] Discontinued 4 mg PO per package directions 21 5 0 November 23, 2020 1:00am November 27, 2020 1:00am November 28, 2020 1:02am montelukast 10 mg oral tablet (20 sources) Leukotriene Receptor Antagonist Start: 2019 End: 2023 take 1 tablet by mouth once daily Montelukast 10 mg tablet Discontinued 10 mg PO DAILY 30 6 February 01, 2020 8:16am May 01, 2020 11:23am oxyCODONE hydrochloride 5 mg oral tablet (20 sources) Opioid Agonist Start: 2016 End: 2017 take 5-10 mg by mouth every four hours as needed for pain Oxycodone 5 MG tablet Discontinued 5 - 10 mg PO EVERY 4 HOURS NEEDED as needed for Mod-Severe Pain (4-07/28) 90 0 October 09, 2017 1:00am October 22, 2017 11:54am PANTOPRAZOLE SODIUM TBEC (20 sources) Proton Pump Inhibitor Start: 2016 PANTOPRAZOLE SODIUM TBEC as directed PANTOPRAZOLE SODIUM TBEC [id number] Leelee De Leon LPN Start: 04-03-2014 take 1 tablet by mouth at bedt yoni Comment on above: TAKE 1 TABLET BY CLAUDIO TH ONCE DAILY. predniSONE 20 mg oral tablet (20 sources) Start: 11-05-2024 End: 12-07-2024 take 2 tablets by mouth once daily Prednisone 20 mg tablet Discontinued 40 mg PO DAILY 10 5 0 November 05, 2024 1:00am December 07, 2024 11:06am Start: 10-20-2022 End: 10-25-2022 take 2 tablets by mouth once daily predniSONE (DELTASONE) 20 mg tablet Indications: Lower resp. tract infection , History of asthma Take 2 tablets by mouth once daily for 5 days. 10 tablet 0 10/20/2022 10/25/2022 Active Start: 10-15-2020 End: 02-12-2021 Prednisone 10 mg tablet Disc ontinued 10 mg PO daily 30 0 December 28, 2020 1:00am February 12, 2021 10:36am Unspecified asthma, uncomplicated take 4 tabs for three days, then 3 tabs for three days, then 2 tabs for three days, then 1 tab for 3 days Start: 08-20-2020 End: 08-25-2020 take 2 tablets by mouth once daily Prednisone 20 mg tablet Discontinued 40 mg PO DAILY 10 5 August 20, 2020 1:00am August 24, 2020 1:00am August 25, 2020 1:03am Start: 08-20-2020 End: 08-25-2020 take 40 mg by mouth once daily Prednisone Discontinued 40 MG PO DAILY 10 August 20, 2020 1:00am August 25, 2020 1:03am Comment on above: Take 2 tablets by [facility] once daily for 5 days. PROSTATE MEDICATION: UNKNOWN NAME (2 sources) Start: 08-07-2017 rivaroxaban 10 mg oral tablet (20 sources) Factor Xa Inhibitor Start: 10-09-2017 End: 10-22-2017 Rivaroxaban (Xarelto) 10 MG tablet Discontinued 10 mg PO DAILY@0600 October 09, 2017 10:39pm October 22, 2017 11:55am blood thinner x 10 dose thru 10/18 sulfamethoxazole 800 [...] 12 hr timolol 5 mg/ml ophthalmic solution (18 sources) beta-Adrenergic Tank Start: 08-27-2023 End: 11-25-2023 [...] August 27, 2023 12:00am 60 actuat tiotropium 0.42105 mg/actuat inhalation spray (20 sources) Anticholinergic Start: 01-17-2020 End: 02-12-2021 take 1.25 ug by inhalation once daily Tiotropium [place] (Spiriva Respimat) 1.25 mcg/actuation mist Discontinued 2 NMA INHALATION DAILY 4 August 20, 2020 12:50pm February 12, 2021 10:36am Start: 01-17-2020 End: 02-12-2021 take 1 puff(s) by inhalation once daily Tiotropium [place] (Spiriva Respimat) 1.25 mcg/actuation mist Discontinued 2 [...] Episodic Chronic obstructive pulmonary disease and bronchiectasis (18 sources) Pulmonary emphysema; Translations: [Emphysema, unspecified] 11-13-2024 Chronic Chronic ulcer of skin (20 sources) 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; Translations: [Non-pressure chronic ulcer of left ankle with necrosis of muscle] Onset: 08-25-2025 08-27-2023 Chronic Coronary atherosclerosis and other heart disease (6 sources) Coronary arteriosclerosis; Translations: [Atherosclerotic heart disease of [place] coronary artery without angina pectoris] Onset: 08-18-2022 08-18-2022 Chronic Deficiency and other anemia (1 source) Anemia, unspecified; Translations: [ANEMIA UNSPECIFIED] Onset: 05-17-2018 Episodic Deficiency and other anemia (20 sources) Iron deficiency anemia; Translations: [Iron deficiency anemia, unspecified] 12-05-2019 Episodic Esophageal disorders (20 sources) Gastro-esophageal reflux [...] OSTEOARTHRITIS UNS SITE] Onset: 05-17-2018 Chronic Osteoporosis (8 sources) Osteoporosis; Translations: [Age-related osteoporosis without current pathological fracture] Onset: 03-23-2010 08-14-2010 Chronic Other bone disease and musculoskeletal deformities (20 sources) Osteopenia; Translations: [Other specified disorders of bone density and structure, unspecified site] 12-05-2019 Episodic Other bone disease and musculoskeletal deformities (2 sources) Other specified disorders of bone density and structure, unspecified site; Translations: [Other specified disorders of bone density and structure, unspecified site] Onset: 08-25-2025 Episodic Other connective tissue disease (1 source) Presence of left artificial hip joint; Translations: [PRESENCE LEFT ARTIFICIAL HIP JOINT] Onset: 05-17-2018 Chronic Other connective tissue disease (7 sources) History of total hip arthroplasty; Translations: [Presence of unspecified artificial hip joint] Onset: 03-23-2010 08-14-2010 Chronic Other connective tissue disease (2 sources) Pain in left lower leg; Translations: [Pain in left lower leg] Onset: 08-25-2025 Episodic Other diseases of veins and lymphatics (3 sources) Chronic peripheral venous hypertension; Translations: [Chronic venous hypertension (idiopathic) with ulcer of unspecified lower extremity] 07-20-2025 Chronic Other diseases of veins and lymphatics (2 sources) Acquired lymphedema of lower extremity; Translations: [Lymphedema, not elsewhere classified] 08-09-2025 Chronic Other diseases of veins and lymphatics (2 sources) Chronic venous hypertension (idiopathic) with ulcer of unspecified lower extremity; Translations: [Chronic venous hypertension (idiopathic) with ulcer of unspecified lower extremity] Onset: 08-25-2025 Chronic Other diseases of veins and lymphatics (2 sources) Lymphedema, not elsewhere classified; Translations: [Lymphedema, not elsewhere classified] Onset: 08-25-2025 Chronic Other diseases of veins and lymphatics (20 sources) Peripheral venous insufficiency; Translations: [Venous insufficiency (chronic) (peripheral)] 08-27-2023 Episodic Other diseases of veins and lymphatics (20 sources) Venous insufficiency (chronic) (peripheral); Translations: [Venous (peripheral) insufficiency, unspecified] Onset: 08-25-2025 09-17-2023 Episodic Other diseases of veins and lymphatics (3 sources) Stasis dermatitis; Translations: [Venous insufficiency (chronic) (peripheral)] 07-20-2025 Episodic Other ear and sense organ disorders (1 source) Unspecified hearing loss, bilateral; Translations: [UNSPECIFIED HEARING LOSS BILATERAL] Onset: 05-17-2018 Chronic Other gastrointestinal disorders (3 sources) Celiac disease; Translations: [CELIAC DISEASE] Onset: 05-17-2018 Chronic Other gastrointestinal disorders (20 sources) Celiac disease; Translations: [Celiac disease] Onset: 03-23-2010 08-14-2010 Chronic Other gastrointestinal disorders (2 sources) Personal history of other diseases of the digestive system; Translations: [Personal history of other diseases of the digestive system] Onset: 08-25-2025 Episodic Other hereditary and degenerative nervous system conditions (3 sources) Restless legs syndrome; Translations: [RESTLESS LEGS SYNDROME] [...] [Open wound(s) (multiple) of unspecified site(s), complicated] Onset: 08-25-2025 09-17-2023 Episodic Other injuries and conditions due to external causes (1 source) Injury of great toenail; Translations: [Unspecified injury of unspecified foot, initial encounter] 03-08-2024 Episodic Other injuries and conditions due to external causes (1 source) Injury of right shoulder; Translations: [Unspecified injury of right shoulder and upper arm, initial encounter] 08-08-2024 Episodic Other injuries and conditions due to external causes (18 sources) Avulsion of skin; Translations: [Other injury of unspecified body region, initial encounter] 09-20-2024 Episodic Other lower respiratory disease (7 sources) Fibrosis of lung; Translations: [Pulmonary fibrosis, unspecified] Onset: 02-25-2016 02-25-2016 Chronic Other lower respiratory disease (2 sources) Lower respiratory tract infection; Translations: [Unspecified acute lower respiratory infection] Episodic Other lower respiratory disease (19 sources) H/O: asthma; Translations: [Personal history of other diseases of the respiratory system] Episodic Other lower respiratory disease (18 sources) Dyspnea; Translations: [Dyspnea, unspecified] 11-13-2024 Episodic Other lower respiratory disease (20 sources) Solitary nodule of lung; Translations: [Solitary [...] sources) Obesity, unspecified; Translations: [Obesity, unspecified] Chronic Other skin disorders (3 sources) Bilateral localized swelling of lower legs; Translations: [Localized swelling, mass and lump, lower limb, bilateral] 07-20-2025 Episodic Other skin disorders (2 sources) Localized swelling, mass and lump, lower limb, bilateral; Translations: [Localized swelling, mass and lump, lower limb, bilateral] Onset: 08-25-2025 Episodic Phlebitis; thrombophlebitis and thromboembolism (20 sources) Personal history of other venous thrombosis and embolism; Translations: [Deep venous thrombosis] Onset: 02-06-2010 08-14-2010 Episodic Residual codes; unclassified (20 sources) Obstructive sleep apnea syndrome; Translations: [Obstructive sleep apnea (adult) (pediatric)] Onset: 08-18-2022 08-18-2022 Chronic Residual codes; unclassified (20 sources) History of hernia repair; Translations: [Other specified postprocedural states] Episodic Residual codes; unclassified (20 sources) Bilateral lower limb edema; Translations: [Localized edema] 02-16-2025 Episodic Residual codes; unclassified (20 sources) History of operative procedure on hip; Translations: [Other specified postprocedural states] 03-04-2025 Episodic Residual codes; unclassified (20 sources) H/O Spinal surgery; Translations: [Other specified postprocedural states] 03-04-2025 Episodic Residual codes; unclassified (2 sources) Localized edema; Translations: [Localized edema] Onset: 08-25-2025 Episodic Residual codes; unclassified (2 sources) Other specified postprocedural states; Translations: [Other specified postprocedural states] Onset: 08-25-2025 Episodic Residual codes; unclassified (2 sources) Acquired absence of other specified parts of digestive tract; Translations: [Acquired absence of other specified parts of digestive tract] Onset: 08-25-2025 Episodic Screening or history of mental health and substance abuse (1 source) Personal history of nicotine dependence; Translations: [PERSONAL HISTORY OF NICOTINE DEPEND] Onset: 05-17-2018 Episodic Skin and subcutaneous tissue infections (20 sources) Cellulitis; Translations: [Cellulitis, unspecified] Onset: 08-25-2025 10-22-2019 Episodic Spondylosis; intervertebral disc disorders; other [...] General 12-05-2019 Varicose veins of lower extremity (20 sources) Skin ulcer; Translations: [Varicose veins of [...] [Epigastric pain] Onset: 01-04-2015 Resolved: 01-04-2015 Episodic Deficiency and other anemia (20 sources) Iron deficiency anemia, unspecified; Translations: [Iron deficiency anemia, unspecified] Onset: 03-28-2025 09-17-2023 Episodic Fracture of upper limb (7 sources) [...] [Pain in left shoulder] Onset: 10-21-2024 Episodic Residual codes; unclassified (17 sources) Past history of procedure; Translations: [Other specified postprocedural states] Onset: 09-18-2020 03-04-2025 Episodic Viral infection (2 sources) Herpes zoster; Translations: [Zoster without complications] Onset: 08-07-2017 08-07-2017 Episodic Results Test Name Value Interpretation Reference Range Facility Wound Ctr History AND Physic tamir 08-22-2025 Wound Ctr History & Physical Normal [facility] Wound Ctr History AND Physic tamir 08-15-2025 Wound Ctr History & Physical Normal [facility] Abd Aortic/IVC Duplex scanon 08-11-2025 Abd Aortic/IVC Duplex scan Normal [facility] Wound Ctr History AND Physic tamir 08-09-2025 Wound Ctr History & Physical Normal [facility] Wound Ctr History AND Physic tamir 08-03-2025 Wound Ctr History & Physical Normal [facility] Pulmonary Visit Reporton Pulmonary Visit Report Normal [facility] Wound Ctr History AND Physic tamir 07-28-2025 Wound Ctr History & Physical Normal [facility] Venous Duplex US - Jose Daniel Extre mon 07-24-2025 Venous Duplex US - Jose Daniel Extrem Normal [facility] Wound Ctr History AND Physic tamir 07-20-2025 Wound Ctr History & Physical Normal [facility] Culture, Anaerobic Any Sourc luz elena 05-22-2025 CUAN L MED ANKLE No anaerobic bacteria isolated. Normal [facility] Comment on above: Performed By: #### M 100.2000, M100.3000, M100.4001 ####[facility] [address] [place], [address] Wound Cultureon 05-21-2025 WC Normal [facility] Comment on above: Performed By: #### M 100.2000, M100.3000, M100.4001 ####[facility] [address] [place], [address] Gram Stainon 05-19-2025 GS L MED ANKLE Gram Stain No organisms seen No Epithelial cells Normal [facility] Comment on above: Performed By: #### M 100.2000, M100.3000, M100.4001 ####[facility] [address] [place], [address] Anaerobic cultureOrdered By: Merrill Burns on 05-18-2025 Bacteria identified Anaer cx Nom (Unsp spec) No anaerobic bacteria isolated. [facility] Gram stainOrdered By: Priyanka Burns on 05-18-2025 Microscopic observation Gram stain Nom (Unsp spec) [facility] Routine wound cultureOrdered By: Merrill Burns on 05-18-2025 Microbial culture, routine Streptococcus agalactiae (B) Abnormal [facility] MR/BMS.BVSon 04-26-2025 MR/BMS.BVS Normal [facility] Venous Duplex US, Unilateral on 04-17-2025 Venous Duplex US, Unilateral Normal [facility] Venous duplex ultrasound rep ortOrdered By: Murray Mckee on 04-17-2025 US Vein [facility] [address] [place] [address] Venous Duplex US, Unilateral 04/17/25 0855 MR#: [id number] Acct: [id number] Name: WELLINGTON GONZALEZ Rep #:[id number] : 1945 80 From: Murray Fernando Attending Dr: XENA Solorio Stat us: REG CLI Ordering Dr: Salima Morin Date: Location: CVS Sex: M C Admitted: Reason For Study Reason For Study: S/P LLE GSV Chemical Ablation RIGHT LEFT CFV is compressible, spontaneous, phasic, competent GSV appears dilated and NONCOMPRESSIBLE with bright and demonstrates normal augmentation. intraluminal echoes from SFJ to ankle. Finding is Procedure consistent with recent chemical ablation. This is a venous duplex using B-mode, color flow and CFV is compressible, spontaneous, phasic, competent, spectral Doppler. and demonstrates normal augmentation. Exam performed in department. FV is compressible, spontaneous, phasic, competent The exam was diagnostic. and demonstrates normal augmentation. POP V is compressible, spontaneous, phasic, competent and demonstrates normal augmentation. T/P Trunk is compressible. PTV is compressible. LT PerV is compressible. VL/Venous Duplex US, Unilateral Interpretation Summary Deep veins of the left lower extremity are patent and compressible segmentally. There is no evidence of left lower extremity deep vein thrombosis. Left great saphenous vein occluded consistent with recent chemical ablation Ordering Physician: Salima Morin Referring Physician: Randa Joseph Performed By: Joss Harden RVT 04/17/25 1352 Date _ Murray Mckee MD CC: XENA Solorio; Dr. 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 [address] Venous Duplex US - Jose Daniel Extrem 03/14/25 1006 MR#: [id number] Acct: [id number] Name: WELLINGTON GONZALEZ Rep #:[id number] : 1945 80 From: Murray Fernando Attending [...] MD CC: XENA Solorio; Dr. Randa Joseph, DO ~ Date Dictated: 03/14/25 1006 Date Transcribed: 03/14/251524 State Fire Marshal: Signed [facility] Work Phone: Wound Ctr History AND Physic tamir 03-04-2025 Wound Ctr History & Physical Normal [facility] MR/BMS.BVSon 03-01-2025 MR/BMS.BVS Normal [facility] Culture, Anaerobic Any Sourc luz elena 02-19-2025 CUAN Normal [facility] Comment on above: Performed By: #### M 100.3000, M100.4001, M100.2000 ####[facility] [address] [place], [address] Venous Duplex US, Unilateral on 02-16-2025 Venous Duplex US, Unilateral Normal [facility] Venous duplex ultrasound rep ortOrdered By: Jose L Nagel on 02-16-2025 US Vein [facility] [address] [place] [address] Venous Duplex US, Unilateral 02/16/25 1018 MR#: [id number] Acct: [id number] Name: WELLINGTON GONZALEZ Rep #:[id number] : 1945 79 From: Jose L Nagel [...] Referring Physician: Randa Joseph Performed By: Ryanne Rivera RVT 02/16/25 6101 Date _ Jose L Nagel MD CC: JOVANY Burns; Dr. Randa Joseph, ~ Date Dictated: 02/16/25 1018 Date Transcribed: 02/16/252254 State Fire Marshal: Signed [facility] Work Phone: Wound Ctr History AND Physic tamir 02-16-2025 Wound Ctr History & Physical Normal [facility] Wound Cultureon 02-16-2025 WC Normal [facility] Comment on above: Performed By: #### M 100.3000, M100.4001, M1.1999 ####[facility] [address] [place], [address] Gram Stainon 02-14-2025 GS LEFT LOWER LEG ULCER Gram Stain 1+ Gram positive cocci Rare Gram positive rods Rare Red Blood Cells Normal [facility] Comment on above: Performed By: #### M 100.3000, M100.4001, M1.1999 ####[facility] [address] [place], [address] Anaerobic cultureOrdered By: Randa Joseph on 02-13-2025 Bacteria identified Anaer cx Nom (Unsp spec) Anaerobic cocci Abnormal [facility] Gram stainOrdered By: Randa prieto on 02-13-2025 Microscopic observation Gram stain Nom (Unsp spec) [facility] Routine wound cultureOrdered By: Randa Joseph on 02-13-2025 Microbial culture, routine Streptococcus agalactiae (B) Abnormal [facility] Microbial culture, routine Staphylococcus epidermidis Abnormal [facility] Microbial culture, routine Corynebacterium minutissimum Abnormal [facility] PT D/C Summary (1)on 025 PT D/C Summary (1) Normal [facility] Vitamin D,25 Hydroxyon 12-08 Vitamin D 25-OH 65.2 ng/mL Normal [facility] Comment on above: Order Comment: MARIO GOULD ORDERED FERRITINALL OTHERS LABS ORDERED BY DR Cece MOON Result Comment: Kamille min D 25(OH) Status Range Deficiency <20 ng/mL (50nmol/L) Insufficiency 20 - 30 ng/mL (50 - 75 nmol/L) Sufficiency 30 - 100 ng/mL (75 - 250 nmol/L) Toxicity >100 ng/mL (>250 nmol/L) Performed By: #### L 503.6550, L506.1000, L501.9520, L500.2500 ####[facility] [address] [place], [address] 38-[id number]-Hbeihvg DOrdered By: Charisma Gould on 12-07-2024 Vitamin D 25-Hydroxy 65.2 ng/mL [facility] Comment on above: Vitamin D 25(OH) Sta tus Range Deficiency <20 ng/mL (50nmol/L) Insufficiency 20 - 30 ng/mL (50 - 75 nmol/L) Sufficiency 30 - 100 ng/mL (75 - 250 nmol/L) Toxicity >100 ng/mL (>250 nmol/L) Basic Metabolic Profile (BMP )on 12-07-2024 BUN/CRE 24.9 RATIO High 10-20 [facility] Comment on above: Order Comment: MARIO GOULD ORDERED FERRITINALL OTHERS LABS ORDERED BY DR Cece MOON Performed By: #### L 503.6550, L506.1000, L501.9520, L500.2500 ####[facility] [address] [place], [address] CA,Total 9.1 mg/dL Normal 8.5-10.1 [facility] Comment on above: Order Comment: MARIO GOULD ORDERED FERRITINALL OTHERS LABS ORDERED BY DR Cece MOON Performed By: #### L 503.6550, L506.1000, L501.9520, L500.2500 ####[facility] [address] [place], [address] Chloride [Moles/Vol] 110 mmol/L High 98-107 [facility] Comment on above: Order Comment: MARIO GOULD ORDERED FERRITINALL OTHERS LABS ORDERED BY DR Cece MOON Performed By: #### L 503.6550, L506.1000, L501.9520, L500.2500 ####[facility] [address] [place], [address] CO2 [Moles/Vol] 26.0 mmol/L Normal 21.0-32.0 [facility] Comment on above: Order Comment: MARIO GOULD ORDERED FERRITINALL OTHERS LABS ORDERED BY DR Cece MOON Performed By: #### L 503.6550, L506.1000, L501.9520, L500.2500 ####[facility] [address] [place], [address] Creatinine [Mass/Vol] 0.80 mg/dL Normal 0.70-1.30 [place] Comment on above: Order Comment: MARIO GOULD ORDERED FERRITINALL OTHERS LABS ORDERED BY DR Cece MOON Result Comment: The validity of the calculated GFR GFRAA in patients over70 years has not been determined. Clinical correlation isessential. Performed By: #### L 503.6550, L506.1000, L501.9520, L500.2500 ####[facility] [address] [place], [address] EST GFR - AA 120 mL/min Normal >60 [facility] Comment on above: Order Comment: MARIO GOULD ORDERED FERRITINALL OTHERS LABS ORDERED BY DR Cece MOON Result Comment: Afri can [place] GFR Calc Performed By: #### L 503.6550, L506.1000, L501.9520, L500.2500 ####[facility] [address] [place], [address] GAP 6 Normal 5-15 [facility] Comment on above: Order Comment: MARIO GOULD ORDERED FERRITINALL OTHERS LABS ORDERED BY DR Cece MOON Performed By: #### L 503.6550, L506.1000, L501.9520, L500.2500 ####[facility] [address] [place], [address] GFR/1.73 sq M.predicted among non-blacks MDRD (S/P/Bld) [Vol rate/Area] 99 mL/min/{1.73_m2} Normal >60 [facility] Comment on above: Order Comment: Celia LUIS FERNANDO ORDERED FERRITINALL OTHERS LABS ORDERED BY DR Cece MOON Result Comment: Non- GFR Calc Performed By: #### L 503.6550, L506.1000, L501.9520, L500.2500 ####[facility] [address] [place], [address] Glucose [Mass/Vol] 106 mg/dL Normal 74-106 [facility] Comment on above: Order Comment: MARIO GOULD ORDERED FERRITINALL OTHERS LABS ORDERED BY DR Cece MOON Result Comment: Fast ing Glucose result from 100 to 125 mg/dLsuggests IMPAIRED HOMEOSTASIS per A.D.A. criteria. Performed By: #### L 503.6550, L506.1000, L501.9520, L500.2500 ####[facility] [address] [place], [address] Potassium [Moles/Vol] 3.7 mmol/L Normal 3.5-5.1 [place] Comment on above: Order Comment: MARIO GOULD ORDERED FERRITINALL OTHERS LABS ORDERED BY DR Cece MOON Performed By: #### L 503.6550, L506.1000, L501.9520, L500.2500 ####[facility] [address] [place], [address] Sodium [Moles/Vol] 142 mmol/L Normal 136-145 [facility] Comment on above: Order Comment: MARIO GOULD ORDERED FERRITINALL OTHERS LABS ORDERED BY DR Cece MOON Performed By: #### L 503.6550, L506.1000, L501.9520, L500.2500 ####[facility] [address] [place], [address] Urea nitrogen [Mass/Vol] 20 mg/dL High 7-18 [facility] Comment on above: Order Comment: MARIO GOULD ORDERED FERRITINALL OTHERS LABS ORDERED BY DR Cece MOON Performed By: #### L 503.6550, L506.1000, L501.9520, L500.2500 ####[facility] [address] [place], [place], [id number] Blood urea nitrogen (BUN)/cr eatinine ratioOrdered By: TODD Gould on 12-07-2024 Urea nitrogen/Creatinine [Mass ratio] 24.9 mg/mg High 10-20 [facility] Carbon dioxide measurementOr dered By: TODD Gould on 12-07-2024 CO2 [Moles/Vol] 26.0 mmol/L 21.0-32.0 [facility] Chloride measurementOrdered By: TODD Gould on 12-07-2024 Chloride [Moles/Vol] 110 mmol/L High 98-107 [facility] Estimated glomerular filtrat ion rate (GFR) AmericanOrdered By: TODD Gould on 12-07-2024 Estimated GFR (MDRD) Amer 120 mL/min >60 [facility] Comment on above: GFR Calc Ferritinon 12-07-2024 Ferritin [Mass/Vol] 30 ng/mL Normal 26-388 [facility] Comment on above: Order Comment: MARIO GOULD ORDERED FERRITINALL OTHERS LABS ORDERED BY DR Cece MOON Performed By: #### L 503.6550, L506.1000, L501.9520, L500.2500 ####[facility] [address] [place], [place], [address] Ferritin measurementOrdered By: TODD Gould on 12-07-2024 Ferritin [Mass/Vol] 30 ng/mL 26-388 [facility] Glomerular filtration rate ( GFR) estimationOrdered By: TODD Gould on 12-07-2024 Estimated GFR (MDRD) Non-Af Amer 99 mL/min >60 [facility] Comment on above: Non- GFR Calc GFR/1.73 sq M.predicted among non-blacks MDRD (S/P/Bld) [Vol rate/Area] 99 mL/min/{1.73_m2} >60 [facility] Comment on above: Non- GFR Calc Glucose measurementOrdered B y: TODD Gould on 12-07-2024 Glucose [Mass/Vol] 106 mg/dL 74-106 [facility] Comment on above: Fasting Glucose resu lt from 100 to 125 mg/dL suggests IMPAIRED HOMEOSTASIS per A.D.A. criteria. Potassium measurementOrdered By: TODD Gould on 12-07-2024 Potassium [Moles/Vol] 3.7 mmol/L 3.5-5.1 [place] [facility] Visit Reporton Pulmonary Visit Report Normal [facility] Serum anion gap measurementO rdered By: TODD Gould on 12-07-2024 Anion gap [Moles/Vol] 6 mmol/L 5-15 [place] Serum or plasma calcium toya urement (mass/volume)Ordered By: TODD Gould on 12-07-2024 Calcium [Mass/Vol] 9.1 mg/dL 8.5-10.1 [facility] Serum or plasma creatinine m easurement (mass/volume)Ordered By: TODD Gould on 12-07-2024 Creatinine [Mass/Vol] 0.80 mg/dL 0.70-1.30 [place] Comment on above: The validity of the calculated GFR & GFRAA in patients over 70 years has not been determined. Clinical correlation is essential. Serum or plasma thyroid stim ulating hormone (TSH) measurement (units/volume)Ordered By: TODD Gould on 12-07-2024 TSH Qn 2.010 uIU/mL 0.358-3.740 [facility] Serum or plasma urea nitroge n measurement (mass/volume)Ordered By: TODD Gould on 12-07-2024 Urea nitrogen [Mass/Vol] 20 mg/dL High 7-18 [facility] Sodium levelOrdered By: TODD Gould on 12-07-2024 Sodium [Moles/Vol] 142 mmol/L 136-145 [facility] TSH QnOrdered By: TODD Gould on 12-07-2024 Thyroid Stimulating Hormone (TSH) 2.010 uIU/mL 0.358-3.740 [facility] Thyroid Stim Hormone (TSH)on 12-07-2024 TSH 2.010 uIU/mL Normal 0.358-3.740 [facility] Comment on above: Order Comment: MARIO GOULD ORDERED FERRITINALL OTHERS LABS ORDERED BY DR Cece MOON Performed By: #### L 503.6550, L506.1000, L501.9520, L500.2500 ####[facility] [address] [place], [address] 6 Minute Walk Teston 025 6 Minute Walk Test Normal [facility] Re-Evaluation - PT (1)on Re-Evaluation - PT (1) Normal [facility] 12 Lead EKGon 11-05-2024 12 Lead EKG Normal [facility] Absolute lymphocyte countOrd ered By: Mario Koo on 11-05-2024 Lymphocytes Auto (Unsp spec) [#/Vol] 0.95 10*3/uL 0.83-4.51 [facility] Absolute neutrophil countOrd ered By: Mario Koo on 11-05-2024 Neutrophils (Bld) [#/Vol] 2.6 10*3/uL 2.0-7.7 [facility] Automated lymphocyte count a s percentage of total leukocytesOrdered By: Mario Koo on 11-05-2024 Lymphocytes/100 WBC Auto (Unsp spec) 22.0 % 19-41 [facility] BNP (brain natriuretic pepti de measurement)Ordered By: Mario Koo on 11-05-2024 Natriuretic peptide B (Bld) [Mass/Vol] 79.0 pg/mL 0-100 [facility] BNP,B-Type NATRIURETIC PEPTI Mayra 11-05-2024 Natriuretic peptide B (Bld) [Mass/Vol] 79.0 pg/mL Normal 0-100 [facility] Comment on above: Performed By: #### L 503.6620, L300.8000 ####[facility] [address] [place], [address] Basic Metabolic Profile (BMP )on 11-05-2024 BUN/CRE 18.4 RATIO Normal 10-20 [facility] Comment on above: Order Comment: 'TROP ' Serial specimen #1, #2 or #3: 1 Performed By: #### L 500.2500, L100.0100, L501.4020 ####[facility] [address] [place], [address] CA,Total 9.3 mg/dL Normal 8.5-10.1 [facility] Comment on above: Order Comment: 'TROP ' Serial specimen #1, #2 or #3: 1 Performed By: #### L 500.2500, L100.0100, L501.4020 ####[facility] [address] [place], [address] Chloride [Moles/Vol] 115 mmol/L High 98-107 [facility] Comment on above: Order Comment: 'TROP ' Serial specimen #1, #2 or #3: 1 Performed By: #### L 500.2500, L100.0100, L501.4020 ####[facility] [address] [place], [address] CO2 [Moles/Vol] 23.0 mmol/L Normal 21.0-32.0 [facility] Comment on above: Order Comment: 'TROP ' Serial specimen #1, #2 or #3: 1 Performed By: #### L 500.2500, L100.0100, L501.4020 ####[facility] [address] [place], [address] Creatinine [Mass/Vol] 0.87 mg/dL Normal 0.70-1.30 [place] Comment on above: Order Comment: 'TROP ' Serial specimen #1, #2 or #3: 1 Result Comment: The validity of the calculated GFR GFRAA in patients over70 years has not been determined. Clinical correlation isessential. Performed By: #### L 500.2500, L100.0100, L501.4020 ####[facility] [address] [place], [address] ECRCL 83.50 ml/min Normal [facility] Comment on above: Order Comment: 'TROP ' Serial specimen #1, #2 or #3: 1 Performed By: #### L 500.2500, L100.0100, L501.4020 ####[facility] [address] [place], [address] EST GFR - AA 109 mL/min Normal >60 [facility] Comment on above: Order Comment: 'TROP ' Serial specimen #1, #2 or #3: 1 Result Comment: Afri can [place] GFR Calc Performed By: #### L 500.2500, L100.0100, L501.4020 ####[facility] [address] [place], [address] GAP 6 Normal 5-15 [facility] Comment on above: Order Comment: 'TROP ' Serial specimen #1, #2 or #3: 1 Performed By: #### L 500.2500, L100.0100, L501.4020 ####[facility] [address] [place], [address] GFR/1.73 sq M.predicted among non-blacks MDRD (S/P/Bld) [Vol rate/Area] 90 mL/min/{1.73_m2} Normal >60 [facility] Comment on above: Order Comment: 'TROP ' Serial specimen #1, #2 or #3: 1 Result Comment: Non- GFR Calc Performed By: #### L 500.2500, L100.0100, L501.4020 ####[facility] [address] [place], [address] Glucose [Mass/Vol] 125 mg/dL High 74-106 [facility] Comment on above: Order Comment: 'TROP ' Serial specimen #1, #2 or #3: 1 Result Comment: Fast ing Glucose result from 100 to 125 mg/dLsuggests IMPAIRED HOMEOSTASIS per A.D.A. criteria. Performed By: #### L 500.2500, L100.0100, L501.4020 ####[facility] [address] [place], [address] Potassium [Moles/Vol] 3.5 mmol/L Normal 3.5-5.1 [place] Comment on above: Order Comment: 'TROP ' Serial specimen #1, #2 or #3: 1 Performed By: #### L 500.2500, L100.0100, L501.4020 ####[facility] [address] [place], [address] Sodium [Moles/Vol] 144 mmol/L Normal 136-145 [facility] Comment on above: Order Comment: 'TROP ' Serial specimen #1, #2 or #3: 1 Performed By: #### L 500.2500, L100.0100, L501.4020 ####[facility] [address] [place], [address] Urea nitrogen [Mass/Vol] 16 mg/dL Normal 05-05 [facility] Comment on above: Order Comment: 'TROP ' Serial specimen #1, #2 or #3: 1 Performed By: #### L 500.2500, L100.0100, L501.4020 ####[facility] [address] [place], [address] Basophil percentageOrdered B y: Mario oKo on 11-05-2024 Basophils/100 WBC (Bld) 0.2 % 0-1 [facility] Blood urea nitrogen (BUN)/cr eatinine ratioOrdered By: Mario Koo on 11-05-2024 Urea nitrogen/Creatinine [Mass ratio] 18.4 mg/mg 10-20 [facility] CBC W/Diff, Automatedon 10-19 Absolute Lymph 0.95 X10 3/uL Normal 0.83-4.51 [facility] Comment on above: Performed By: #### L 500.2500, L100.0100, L501.4020 ####[facility] [address] [place], [address] Absolute Neut 2.6 X10 3/uL Normal 2.0-7.7 [facility] Comment on above: Performed By: #### L 500.2500, L100.0100, L501.4020 ####[facility] [address] [place], [address] Basophils/100 WBC (Bld) 0.2 % Normal 0-1 [facility] Comment on above: Performed By: #### L 500.2500, L100.0100, L501.4020 ####[facility] [address] [place], [address] Eosinophils/100 WBC (Bld) 0.0 % Normal 0-5 [facility] Comment on above: Performed By: #### L 500.2500, L100.0100, L501.4020 ####[facility] [address] [place], [address] Erythrocyte distribution width (RBC) [Ratio] 14.0 % Normal 11.6-14.6 [facility] Comment on above: Performed By: #### L 500.2500, L100.0100, L501.4020 ####[facility] [address] [place], [address] Hematocrit (Bld) [Volume fraction] 34.3 % Low 40-54 [facility] Comment on above: Performed By: #### L 500.2500, L100.0100, L501.4020 ####[facility] [address] [place], [address] Hemoglobin (Bld) [Mass/Vol] 11.3 g/dL Low 13.0-16.5 [facility] Comment on above: Performed By: #### L 500.2500, L100.0100, L501.4020 ####[facility] [address] [place], [address] IG% 0.700 Normal 0.0-0.9 [facility] Comment on above: Result Comment: IG% - Immature Granulocytes (promyelocytes, myelocytes andmetamyelocytes) > 1% indicates that a LEFT SHIFT is Present. Performed By: #### L 500.2500, L100.0100, L501.4020 ####[facility] [address] [place], [address] Lymphocytes/100 WBC (Bld) 22.0 % Normal 19-41 [facility] Comment on above: Performed By: #### L 500.2500, L100.0100, L501.4020 ####[facility] [address] [place], [address] MCH (RBC) [Entitic mass] 31.0 pg Normal 27.0-32.0 [facility] Comment on above: Performed By: #### L 500.2500, L100.0100, L501.4020 ####[facility] [address] [place], [address] MCHC (RBC) [Mass/Vol] 32.9 g/dL Normal 32-36 [place] Comment on above: Performed By: #### L 500.2500, L100.0100, L501.4020 ####[facility] [address] [place], [address] MCV (RBC) [Entitic vol] 94.2 fL High 80-94 [facility] Comment on above: Performed By: #### L 500.2500, L100.0100, L501.4020 ####[facility] [address] [place], [address] Monocytes/100 WBC (Bld) 17.2 % High 0-10 [facility] Comment on above: Performed By: #### L 500.2500, L100.0100, L501.4020 ####[facility] [address] [place], [address] Neutrophils/100 WBC (Bld) 59.9 % Normal 47-70 [facility] Comment on above: Performed By: #### L 500.2500, L100.0100, L501.4020 ####[facility] [address] [place], [address] Nucleated RBC (Bld) [#/Vol] 0 10*3/uL Normal 0-5 [facility] Comment on above: Performed By: #### L 500.2500, L100.0100, L501.4020 ####[facility] [address] [place], [address] Platelet mean volume (Bld) [Entitic vol] 10.5 fL Normal 6.2-12.0 [facility] Comment on above: Performed By: #### L 500.2500, L100.0100, L501.4020 ####[facility] [address] [place], [address] Platelets (Bld) [#/Vol] 224 10*3/uL Normal 150-450 [facility] Comment on above: Performed By: #### L 500.2500, L100.0100, L501.4020 ####[facility] [address] [place], [address] RBC (Bld) [#/Vol] 3.64 10*6/uL Low 4.6-6.2 [facility] Comment on above: Performed By: #### L 500.2500, L100.0100, L501.4020 ####[facility] [address] [place], [address] RDW SD 47.9 fl High 35.1-43.9 [facility] Comment on above: Performed By: #### L 500.2500, L100.0100, L501.4020 ####[facility] [address] [place], [address] WBC (Bld) [#/Vol] 4.3 10*3/uL Low 4.4-11.0 [facility] Comment on above: Performed By: #### L 500.2500, L100.0100, L501.4020 ####[facility] [address] [place], [place], [address] CTA Chest W/WO Contraston CTA Chest W/WO Contrast Normal [facility] Carbon dioxide measurementOr dered By: Mario Koo on 11-05-2024 CO2 [Moles/Vol] 23.0 mmol/L 21.0-32.0 [facility] Chest PA and Lateralon 11-05 Chest PA and Lateral Normal [facility] Chloride measurementOrdered By: Mario Koo on 11-05-2024 Chloride [Moles/Vol] 115 mmol/L High 98-107 [facility] D-Dimer Quantitative (DVT/PE )on 11-05-2024 D-DIMER QUANT 1.51 FEU/ug/m Invalid Interpretation Code 0.27-0.49 [facility] Comment on above: Order Comment: CRITI ANSLEY VALUE CALLED TO FIDELIA PRAKASH11/05/24 Raphael8 Kitty Dunlap.RESULTS READ BACK BY SAME. Result Comment: D-Di david ELEVATED (>0.49): Additional studies and clinicalassessments are indicated to conclude diagnosis of:Deep Vein Thrombosis (DVT) or Pulmonary Embolism (PE) Performed By: #### L 503.6620, L300.8000 ####[facility] [address] [place], [place], [address] D-dimer measurement for deep venous thrombosisOrdered By: Mario Koo on 11-05-2024 D-Dimer Quantitative (PE/DVT) 1.51 FEU/ug/m High 0.27-0.49 [facility] Comment on above: D-Dimer ELEVATED (>0 .49): Additional studies and clinicalassessments are indicated to conclude diagnosis of:Deep Vein Thrombosis (DVT) or Pulmonary Embolism (PE) Emergency Department Summary on 11-05-2024 Emergency Department Summary Normal [facility] Eosinophil percentageOrdered By: Mario Koo on 11-05-2024 Eosinophils/100 WBC (Bld) 0.0 % 0-5 [facility] Erythrocyte distribution wid th ratioOrdered By: Mario Koo on 11-05-2024 Erythrocyte distribution width (RBC) [Ratio] 14.0 % 11.6-14.6 [facility] Erythrocyte distribution wid th standard deviationOrdered By: Mario Koo on 11-05-2024 Erythrocyte distribution width (RBC) [Entitic vol] 47.9 fL High 35.1-43.9 [facility] Erythrocyte distribution width (RBC) [Ratio] 47.9 fl High 35.1-43.9 [facility] Estimated glomerular filtrat ion rate (GFR) AmericanOrdered By: Mario Koo on 11-05-2024 Estimated GFR (MDRD) Amer 109 mL/min >60 [facility] Comment on above: GFR Calc Estimation of creatinine velma aranceOrdered By: Mario Koo on 11-05-2024 Estimated Creatinine Clearance Calc 83.50 ml/min [facility] Glomerular filtration rate ( GFR) estimationOrdered By: Mario Koo on 11-05-2024 Estimated GFR (MDRD) Non-Af Amer 90 mL/min >60 [facility] Comment on above: Non- GFR Calc GFR/1.73 sq M.predicted among non-blacks MDRD (S/P/Bld) [Vol rate/Area] 90 mL/min/{1.73_m2} >60 [facility] Comment on above: Non- GFR Calc Glucose measurementOrdered B y: Mario Koo on 11-05-2024 Glucose [Mass/Vol] 125 mg/dL High 74-106 [facility] Comment on above: Fasting Glucose resu lt from 100 to 125 mg/dL suggests IMPAIRED HOMEOSTASIS per A.D.A. criteria. Hematocrit Auto (Bld) [Volum e fraction]Ordered By: Mario Koo on 11-05-2024 Hematocrit (Bld) [Volume fraction] 34.3 % Low 40-54 [facility] Hemoglobin measurementOrdere d By: Mario Koo on 11-05-2024 Hemoglobin (Bld) [Mass/Vol] 11.3 g/dL Low 13.0-16.5 [facility] Immature granulocytes/100 WB C Auto (Bld)Ordered By: Mario Koo on 11-05-2024 Immature granulocytes/100 WBC (Bld) 0.700 % 0.0-0.9 [facility] Comment on above: IG% - Immature Granu locytes (promyelocytes, myelocytes and metamyelocytes) > 1% indicates that a LEFT SHIFT is Present. L501.4020on 11-05-2024 TROPONIN-I HS 4 pg/mL Normal 3.0-78.0 [facility] Comment on above: Order Comment: 'TROP ' Serial specimen #1, #2 or #3: 1 Result Comment: Ad maradiaga Note: New Test Units and Gender Specific Reference Ranges. For more information see Policy Stat Procedure [place] High Sensitivity Troponin (TNIH) and attachments. Performed By: #### L 500.2500, L100.0100, L501.4020 ####[facility] [address] [place], [address] Lymphocytes Auto (Unsp spec) [#/Vol]Ordered By: Mario Koo on 11-05-2024 Lymphocytes (Bld) [#/Vol] 0.95 10*3/uL 0.83-4.51 [facility] Lymphocytes/100 WBC Auto (Un sp spec)Ordered By: Mario Koo on 11-05-2024 Lymphocytes/100 WBC (Bld) 22.0 % 19-41 [facility] MCV (mean corpuscular volume ) determinationOrdered By: Mario Koo on 11-05-2024 MCV (RBC) [Entitic vol] 94.2 fL High 80-94 [facility] Mean corpuscular hemoglobin (MCH) determinationOrdered By: Mario Koo on 11-05-2024 MCH (RBC) [Entitic mass] 31.0 pg 27.0-32.0 [facility] Mean corpuscular hemoglobin concentration (MCHC) determinationOrdered By: Mario Koo on 11-05-2024 MCHC (RBC) [Mass/Vol] 32.9 g/dL 32-36 [place] Mean platelet volume determi nationOrdered By: Mario Koo on 11-05-2024 Platelet mean volume (Bld) [Entitic vol] 10.5 fL 6.2-12.0 [facility] Monocyte percentageOrdered B y: Mario Koo on 11-05-2024 Monocytes/100 WBC (Bld) 17.2 % High 0-10 [facility] Neutrophil percentageOrdered By: Mario Koo on 11-05-2024 Neutrophils/100 WBC (Bld) 59.9 % 47-70 [facility] Nucleated red blood cell per centageOrdered By: Mario Koo on 11-05-2024 Nucleated RBC/100 WBC (Bld) [Ratio] 0 % 0-5 [facility] Platelet countOrdered By: Micheal Koo on 11-05-2024 Platelets (Bld) [#/Vol] 224 10*3/uL 150-450 [facility] Potassium measurementOrdered By: Mario Koo on 11-05-2024 Potassium [Moles/Vol] 3.5 mmol/L 3.5-5.1 [place] RBC Auto (Bld) [#/Vol]Ordere d By: Mario Koo on 11-05-2024 RBC (Bld) [#/Vol] 3.64 10*6/uL Low 4.6-6.2 [facility] Serum anion gap measurementO rdered By: Mario Koo on 11-05-2024 Anion gap [Moles/Vol] 6 mmol/L 5-15 [place] Serum or plasma calcium toya urement (mass/volume)Ordered By: Mario Koo on 11-05-2024 Calcium [Mass/Vol] 9.3 mg/dL 8.5-10.1 [facility] Serum or plasma creatinine m easurement (mass/volume)Ordered By: Mario Koo on 11-05-2024 Creatinine [Mass/Vol] 0.87 mg/dL 0.70-1.30 [place] Comment on above: The validity of the calculated GFR & GFRAA in patients over 70 years has not been determined. Clinical correlation is essential. Serum or plasma urea nitroge n measurement (mass/volume)Ordered By: Mario Koo on 11-05-2024 Urea nitrogen [Mass/Vol] 16 mg/dL 05-05 [facility] Sodium levelOrdered By: Mario Koo on 11-05-2024 Sodium [Moles/Vol] 144 mmol/L 136-145 [facility] Troponin IOrdered By: Mario gamboa on 11-05-2024 Troponin I 4 pg/mL 3.0-78.0 [facility] Comment on above: Please Note: [place] t Units and Gender Specific Reference Ranges. For more information see Policy Stat Procedure [place] High Sensitivity Troponin (TNIH) and attachments. Troponin I High Sensitivity 4 pg/mL 3.0-78.0 [facility] Comment on above: Please Note: [place] t Units and Gender Specific Reference Ranges. For more information see Policy Stat Procedure [place] High Sensitivity Troponin (TNIH) and attachments. White blood cell (WBC) count Ordered By: Mario Koo on 11-05-2024 WBC (Bld) [#/Vol] 4.3 10*3/uL Low 4.4-11.0 [facility] Inital Evaluation (1) - PTon 10-11-2024 Inital Evaluation (1) - PT Normal [facility] Basic Metabolic Profile (BMP )on 10-04-2024 BUN/CRE 26.0 RATIO High 10-20 [facility] Comment on above: Performed By: #### L 500.2500 ####[facility] [address] [place] [id number] [place],Total 9.9 mg/dL Normal 8.5-10.1 [facility] Comment on above: Performed By: #### L 500.2500 ####[facility] [address] [facility] [address] Chloride [Moles/Vol] 110 mmol/L High 98-107 [facility] Comment on above: Performed By: #### L 500.2500 ####[facility] [address] [facility] [address] CO2 [Moles/Vol] 29.0 mmol/L Normal 21.0-32.0 [facility] Comment on above: Performed By: #### L 500.2500 ####[facility] [address] [facility] [address] Creatinine [Mass/Vol] 0.85 mg/dL Normal 0.70-1.30 [place] Comment on above: Result Comment: The validity of the calculated GFR GFRAA in patients over70 years has not been determined. Clinical correlation isessential. Performed By: #### L 500.2500 ####[facility] [address] [facility] [address] EST GFR - AA 113 mL/min Normal >60 [facility] Comment on above: Result Comment: Afri can [place] GFR Calc Performed By: #### L 500.2500 ####[facility] [address] [place], [address] GAP 3 Low 5-15 [facility] Comment on above: Performed By: #### L 500.2500 ####[facility] [address] [place], [address] GFR/1.73 sq M.predicted among non-blacks MDRD (S/P/Bld) [Vol rate/Area] 93 mL/min/{1.73_m2} Normal >60 [facility] Comment on above: Result Comment: Non- GFR Calc Performed By: #### L 500.2500 ####[facility] [address] [place], [address] Glucose [Mass/Vol] 103 mg/dL Normal 74-106 [facility] Comment on above: Result Comment: Fast ing Glucose result from 100 to 125 mg/dLsuggests IMPAIRED HOMEOSTASIS per A.D.A. criteria. Performed By: #### L 500.2500 ####[facility] [address] [place], [address] Potassium [Moles/Vol] 4.2 mmol/L Normal 3.5-5.1 [place] Comment on above: Performed By: #### L 500.2500 ####[facility] [address] [place], [address] Sodium [Moles/Vol] 142 mmol/L Normal 136-145 [facility] Comment on above: Performed By: #### L 500.2500 ####[facility] [address] [place], [address] Urea nitrogen [Mass/Vol] 22 mg/dL High 7-18 [facility] Comment on above: Performed By: #### L 500.2500 ####[facility] [address] [place], [address] Blood urea nitrogen (BUN)/cr eatinine ratioOrdered By: Luiza Moon on 10-04-2024 Urea nitrogen/Creatinine [Mass ratio] 26.0 mg/mg High 10-20 [facility] Carbon dioxide measurementOr dered By: Luiza Moon on 10-04-2024 CO2 [Moles/Vol] 29.0 mmol/L 21.0-32.0 [facility] Chloride measurementOrdered By: Luiza Moon on 10-04-2024 Chloride [Moles/Vol] 110 mmol/L High 98-107 [facility] Estimated glomerular filtrat ion rate (GFR) AmericanOrdered By: Luiza Moon on 10-04-2024 Estimated GFR (MDRD) Amer 113 mL/min >60 [facility] Comment on above: GFR Calc Glomerular filtration rate ( GFR) estimationOrdered By: Luiza Moon on 10-04-2024 Estimated GFR (MDRD) Non-Af Amer 93 mL/min >60 [facility] Comment on above: Non- GFR Calc Glucose measurementOrdered B y: Luiza Moon on 10-04-2024 Glucose [Mass/Vol] 103 mg/dL 74-106 [facility] Comment on above: Fasting Glucose resu lt from 100 to 125 mg/dL suggests IMPAIRED HOMEOSTASIS per A.D.A. criteria. Potassium measurementOrdered By: Luiza Moon on 10-04-2024 Potassium [Moles/Vol] 4.2 mmol/L 3.5-5.1 [place] Pulmonary Visit Reporton Pulmonary Visit Report Normal [facility] [place] Serum anion gap measurementO rdered By: Luiza Moon on 10-04-2024 Anion gap [Moles/Vol] 3 mmol/L Low 5-15 [place] Serum or plasma calcium toya urement (mass/volume)Ordered By: Luiza Moon on 10-04-2024 Calcium [Mass/Vol] 9.9 mg/dL 8.5-10.1 [facility] Serum or plasma creatinine m easurement (mass/volume)Ordered By: Luiza Moon on 10-04-2024 Creatinine [Mass/Vol] 0.85 mg/dL 0.70-1.30 [place] Comment on above: The validity of the calculated GFR & GFRAA in patients over 70 years has not been determined. Clinical correlation is essential. Serum or plasma urea nitroge n measurement (mass/volume)Ordered By: Luiza Moon on 10-04-2024 Urea nitrogen [Mass/Vol] 22 mg/dL High 7-18 [facility] Sodium levelOrdered By: Alessia Moon on 10-04-2024 Sodium [Moles/Vol] 142 mmol/L 136-145 [facility] Shoulder min 2 Viewson 09-22 Shoulder min 2 Views Normal [facility] Emergency Department Summary on 09-12-2024 Emergency Department Summary Normal [facility] CNOVon 08-08-2024 CNOV Office Visit (UCWSTR ) -------- WELLINGTON GONZALEZ ([id number]) 1945 M Date Time Provider Department 08/08/24 11:15 AM JAQUI FELTON [facility] During your visit today, we recorded the following information about you: Temperature Pulse Respiration Blood pressure 97.6 degrees 76/minute 21/minute 100/60 Weight 99.9 kg Jaqui Felton APRN.CNP 08/08/2024 12:48 PM Signed Subjective HPI HPI Wellington Gonzalez is a [...] PFRMD 08/13/2010 EGD TRANSORAL BIOPSY SINGLE/MULTIPLE 08/13/2010 ESOPHAGOGASTRODUODENOSCO PY TRANSORAL DIAGNOSTIC 01/04/2015 EGD ESOPHAGOGASTRODUODENOSCO PY TRANSORAL DIAGNOSTIC 04/03/2016 EGD IMPLANT MESH OPN HERNIA RPR/DEBRIDEMENT CLOSURE 05/10/2015 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 Injur (more content not included)... 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: [facility] Transcribe Date/Time: Aug 08 2024 12:06P Dictated by : HOLLEY CINTRON MD This examination was interpreted and the report reviewed and electronically signed by: HOLLEY CINTRON MD on Aug 08 2024 12:06PM EST [facility] Radiology Study observation (narrative) [facility] XR Shoulder - right 3 ViewsO rdered By: Ccf Provider on 08-08-2024 [facility] CNOVon 03-08-2024 CNOV Office Visit (UCWSTR ) -------- WELLINGTON GONZALEZ ([id number]) 1945 M Date Time Provider Department 03/08/24 2:45 PM YAEL NAIR [facility] During your visit today, we recorded the following information about you: Temperature Pulse Respiration Blood pressure 98.6 degrees 70/minute 16/minute 120/60 Weight 98.8 kg Yael Nair APRN.CNP 03/08/2024 3:20 PM Signed This note was created using NoteWriter. Subjective Wellington Leivaciciisela is a 79 year old male. 79 year old male with PMH RLS, CAD, asthma, JOSHUA, celiac, GERD, and history of venous insufficiency presents for toenail complaints. Acute onset this past week Right great toe States his toenail was snagged on a sock Now is almost completely off. 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 No building services technician was used. 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 Normal [facility] [place]al Basophil percentageOrdered B y: Murray Mckee on 01-06-2024 Chloride [Moles/Vol] 111 mmol/L 98-107 [facility] Glucose [Mass/Vol] 94 mg/dL 74-106 [facility] Hemoglobin (Bld) [Mass/Vol] 11.5 g/dL 13.0-16.5 [facility] Potassium [Moles/Vol] 3.9 mmol/L 3.5-5.1 [facility] Comment on above: Slight Hemolysis, Re sult may be falsely increased. Sodium [Moles/Vol] 142 mmol/L 136-145 [facility] WBC (Bld) [#/Vol] 3.1 10*3/uL 4.4-11.0 [facility] Determination of erythrocyte mean corpuscular volume (MCV)Ordered By: Murray Mckee on 01-06-2024 MCV (RBC) [Entitic vol] 95.1 fL 80-94 [facility] Erythrocyte distribution wid th ratioOrdered By: Murray Mckee on 01-06-2024 Erythrocyte distribution width (RBC) [Ratio] 13.8 % 11.6-14.6 [facility] Erythrocyte distribution wid th standard deviationOrdered By: Murray Mckee on 01-06-2024 Erythrocyte distribution width (RBC) [Entitic vol] 48.7 fL 35.1-43.9 [facility] Hematocrit Auto (Bld) [Volum e fraction]Ordered By: Murray Mckee on 01-06-2024 Hematocrit (Bld) [Volume fraction] 34.6 % 40-54 [facility] Laboratory - Chemistry and C hemistry - challengeOrdered By: Murray Mckee on 01-06-2024 CO2 [Moles/Vol] 25.0 mmol/L 21.0-32.0 [facility] Urea nitrogen/Creatinine [Mass ratio] 22.2 mg/mg 10-20 [facility] Laboratory - Hematology and Cell countsOrdered By: Murray Mckee on 01-06-2024 MCH (RBC) [Entitic mass] 31.6 pg 27.0-32.0 [facility] MCHC (RBC) [Mass/Vol] 33.2 g/dL 32-36 [place] Platelet mean volume (Bld) [Entitic vol] 9.9 fL 6.2-12.0 [facility] Platelets (Bld) [#/Vol] 174 10*3/uL 150-450 [facility] No Panel InformationOrdered By: Murray Mckee on 01-06-2024 Estimated Creatinine Clearance Calc 89.77 ml/min [facility] Estimated GFR (MDRD) Amer 112 mL/min >60 [facility] Comment on above: GFR Calc Estimated GFR (MDRD) Non-Af Amer 92 mL/min >60 [facility] Comment on above: Non- GFR Calc RBC Auto (Bld) [#/Vol]Ordere d By: Murray Mckee on 01-06-2024 RBC (Bld) [#/Vol] 3.64 10*6/uL 4.6-6.2 [facility] Serum or plasma calcium toya urement (mass/volume)Ordered By: Murray Mckee on 01-06-2024 Calcium [Mass/Vol] 9.2 mg/dL 8.5-10.1 [facility] Serum or plasma creatinine m easurement (mass/volume)Ordered By: Murray Mckee on 01-06-2024 Creatinine [Mass/Vol] 0.85 mg/dL 0.70-1.30 [place] Comment on above: The validity of the calculated GFR & GFRAA in patients over 70 years has not been determined. Clinical correlation is essential. Serum or plasma urea nitroge n measurement (mass/volume)Ordered By: Murray Mckee on 01-06-2024 Urea nitrogen [Mass/Vol] 19 mg/dL 7-18 [facility] Thin prep Papanicolaou smear with manual screeningOrdered By: Murray Mckee on 01-06-2024 Thin prep Papanicolaou smear with manual screening 6 5-15 [facility] Basophil percentageOrdered B y: David Unger on 11-19-2023 Chloride [Moles/Vol] 111 mmol/L 98-107 [facility] Glucose [Mass/Vol] 85 mg/dL 74-106 [facility] Hemoglobin (Bld) [Mass/Vol] 11.4 g/dL 13.0-16.5 [facility] Potassium [Moles/Vol] 3.7 mmol/L 3.5-5.1 [place] Sodium [Moles/Vol] 139 mmol/L 136-145 [facility] WBC (Bld) [#/Vol] 2.7 10*3/uL 4.4-11.0 [facility] Determination of erythrocyte mean corpuscular volume (MCV)Ordered By: David Unger on 11-19-2023 MCV (RBC) [Entitic vol] 96.0 fL 80-94 [facility] Erythrocyte distribution wid th ratioOrdered By: David Unger on 11-19-2023 Erythrocyte distribution width (RBC) [Ratio] 14.4 % 11.6-14.6 [facility] Erythrocyte distribution wid th standard deviationOrdered By: David Unger on 11-19-2023 Erythrocyte distribution width (RBC) [Entitic vol] 50.2 fL 35.1-43.9 [facility] Hematocrit Auto (Bld) [Volum e fraction]Ordered By: David Unger on 11-19-2023 Hematocrit (Bld) [Volume fraction] 35.6 % 40-54 [facility] Laboratory - Chemistry and C hemistry - challengeOrdered By: David Unger on 11-19-2023 CO2 [Moles/Vol] 24.0 mmol/L 21.0-32.0 [facility] Urea nitrogen/Creatinine [Mass ratio] 15.6 mg/mg 10-20 [facility] Laboratory - Hematology and Cell countsOrdered By: David Unger on 11-19-2023 MCH (RBC) [Entitic mass] 30.7 pg 27.0-32.0 [facility] MCHC (RBC) [Mass/Vol] 32.0 g/dL 32-36 [place] Platelets (Bld) [#/Vol] 169 10*3/uL 150-450 [facility] No Panel InformationOrdered By: David Unger on 11-19-2023 Estimated GFR (MDRD) Amer 140 mL/min >60 [facility] Comment on above: GFR Calc Estimated GFR (MDRD) Non-Af Amer 115 mL/min >60 [facility] Comment on above: Non- GFR Calc Platelet mean volume Pola-Ec ker (Bld) [Entitic vol]Ordered By: David Unger on 11-19-2023 Platelet mean volume (Bld) [Entitic vol] 10.9 fL 6.2-12.0 [facility] RBC Auto (Bld) [#/Vol]Ordere d By: David Unger on 11-19-2023 RBC (Bld) [#/Vol] 3.71 10*6/uL 4.6-6.2 [facility] Serum or plasma calcium toya urement (mass/volume)Ordered By: David Unger on 11-19-2023 Calcium [Mass/Vol] 8.9 mg/dL 8.5-10.1 [facility] Serum or plasma creatinine m easurement (mass/volume)Ordered By: David Unger on 11-19-2023 Creatinine [Mass/Vol] 0.70 mg/dL 0.70-1.30 [place] Comment on above: The validity of the calculated GFR & GFRAA in patients over 70 years has not been determined. Clinical correlation is essential. Serum or plasma urea nitroge n measurement (mass/volume)Ordered By: David Unger on 11-19-2023 Urea nitrogen [Mass/Vol] 11 mg/dL 7-18 [facility] Thin prep Papanicolaou smear with manual screeningOrdered By: David Unger on 11-19-2023 Thin prep Papanicolaou smear with manual screening 4 5-15 [facility] Basophil percentageOrdered B y: David Unger on 11-13-2023 Chloride [Moles/Vol] 111 mmol/L 98-107 [facility] Glucose [Mass/Vol] 110 mg/dL 74-106 [facility] Comment on above: Fasting Glucose resu lt from 100 to 125 mg/dL suggests IMPAIRED HOMEOSTASIS per A.D.A. criteria. Hemoglobin (Bld) [Mass/Vol] 11.2 g/dL 13.0-16.5 [facility] Potassium [Moles/Vol] 3.4 mmol/L 3.5-5.1 [place] Sodium [Moles/Vol] 140 mmol/L 136-145 [facility] WBC (Bld) [#/Vol] 2.5 10*3/uL 4.4-11.0 [facility] Determination of erythrocyte mean corpuscular volume (MCV)Ordered By: David Unger on 11-13-2023 MCV (RBC) [Entitic vol] 95.6 fL 80-94 [facility] Erythrocyte distribution wid th ratioOrdered By: David Unger on 11-13-2023 Erythrocyte distribution width (RBC) [Ratio] 14.0 % 11.6-14.6 [facility] Erythrocyte distribution wid th standard deviationOrdered By: David Unger on 11-13-2023 Erythrocyte distribution width (RBC) [Entitic vol] 49.4 fL 35.1-43.9 [facility] Hematocrit Auto (Bld) [Volum e fraction]Ordered By: David Unger on 11-13-2023 Hematocrit (Bld) [Volume fraction] 34.5 % 40-54 [facility] Laboratory - Chemistry and C hemistry - challengeOrdered By: David Unger on 11-13-2023 CO2 [Moles/Vol] 26.0 mmol/L 21.0-32.0 [facility] Urea nitrogen/Creatinine [Mass ratio] 19.0 mg/mg 10-20 [facility] Laboratory - Hematology and Cell countsOrdered By: David Unger on 11-13-2023 MCH (RBC) [Entitic mass] 31.0 pg 27.0-32.0 [facility] MCHC (RBC) [Mass/Vol] 32.5 g/dL 32-36 [place] Platelets (Bld) [#/Vol] 166 10*3/uL 150-450 [facility] No Panel InformationOrdered By: David Unger on 11-13-2023 Estimated GFR (MDRD) Amer 132 mL/min >60 [facility] Comment on above: GFR Calc Estimated GFR (MDRD) Non-Af Amer 109 mL/min >60 [facility] Comment on above: Non- GFR Calc Platelet mean volume Pola-Ec ker (Bld) [Entitic vol]Ordered By: David Unger on 11-13-2023 Platelet mean volume (Bld) [Entitic vol] 10.1 fL 6.2-12.0 [facility] RBC Auto (Bld) [#/Vol]Ordere d By: David Unger on 11-13-2023 RBC (Bld) [#/Vol] 3.61 10*6/uL 4.6-6.2 [facility] Serum or plasma calcium toya urement (mass/volume)Ordered By: David Unger on 11-13-2023 Calcium [Mass/Vol] 8.7 mg/dL 8.5-10.1 [facility] Serum or plasma creatinine m easurement (mass/volume)Ordered By: David Unger on 11-13-2023 Creatinine [Mass/Vol] 0.74 mg/dL 0.70-1.30 [place] Comment on above: The validity of the calculated GFR & GFRAA in patients over 70 years has not been determined. Clinical correlation is essential. Serum or plasma urea nitroge n measurement (mass/volume)Ordered By: David Unger on 11-13-2023 Urea nitrogen [Mass/Vol] 14 mg/dL 7-18 [facility] Thin prep Papanicolaou smear with manual screeningOrdered By: David Unger on 11-13-2023 Thin prep Papanicolaou smear with manual screening 3 5-15 [facility] Anaerobic cultureOrdered By: Merrill Burns on 10-22-2023 Bacteria identified Anaer cx Nom (Unsp spec) No anaerobic bacteria isolated. [facility] Bacteria identified Anaer cx Nom (Unsp spec) No anaerobic bacteria isolated. [facility] Bacteria identified Cx Nom ( Wound)Ordered By: Merrill Burns on 10-22-2023 Wound Culture Pseudomonas aeruginosa [facility] Wound Culture Pseudomonas aeruginosa [facility] Gram stain for investigation of transfusion reactionOrdered By: Merrill Burns on 10-22-2023 Microscopic observation Gram stain Nom (Unsp spec) [facility] Microscopic observation Gram stain Nom (Unsp spec) [facility] Absolute lymphocyte countOrd ered By: Randa Joseph on 10-20-2023 Lymphocytes Auto (Unsp spec) [#/Vol] 0.72 10*3/uL 0.83-4.51 [facility] Basophil percentageOrdered B y: Randa Joseph on 10-20-2023 Basophils/100 WBC (Bld) 0.0 % 0-1 [facility] Eosinophils/100 WBC (Bld) 0.0 % 0-5 [facility] Neutrophils (Bld) [#/Vol] 2.2 10*3/uL 2.0-7.7 [facility] Neutrophils/100 WBC (Bld) 64.7 % 47-70 [facility] WBC (Bld) [#/Vol] 3.4 10*3/uL 4.4-11.0 [facility] Bilirubin Test strip Ql (U)O rdered By: Randa Joseph on 10-20-2023 Bilirubin Ql (U) Negative Negative [facility] Blood erythrocytes count (nu mber/volume)Ordered By: Randa Joseph on 10-20-2023 RBC (Bld) [#/Vol] 3.52 10*6/uL 4.6-6.2 [facility] Blood hemoglobin measurement (mass/volume)Ordered By: Randa Joseph on 10-20-2023 Hemoglobin (Bld) [Mass/Vol] 11.2 g/dL 13.0-16.5 [facility] Blood lymphocytes/100 leukoc ytesOrdered By: Randa Joseph on 10-20-2023 Lymphocytes/100 WBC (Bld) 21.2 % 19-41 [facility] Blood monocytes/100 leukocyt esOrdered By: Randa Joseph on 10-20-2023 Monocytes/100 WBC (Bld) 13.8 % 0-10 [facility] Blood platelet mean volumeOr dered By: Randa Joseph on 10-20-2023 Platelet mean volume (Bld) [Entitic vol] 9.6 fL 6.2-12.0 [facility] Culture, urineOrdered By: Suzan Joseph on 10-20-2023 Bacteria identified Cx Nom (U) Pseudomonas aeruginosa [facility] Bacteria identified Cx Nom (U) Pseudomonas aeruginosa [facility] Determination of erythrocyte mean corpuscular volume (MCV)Ordered By: Randa Joseph on 10-20-2023 MCV (RBC) [Entitic vol] 94.9 fL 80-94 [facility] Hematocrit Auto (Bld) [Volum e fraction]Ordered By: Randa Joseph on 10-20-2023 Hematocrit (Bld) [Volume fraction] 33.4 % 40-54 [facility] Ketones Test strip Ql (U)Ord ered By: Randa Joseph on 10-20-2023 Ketones Ql (U) Negative Negative [facility] Laboratory - Hematology and Cell countsOrdered By: Randa Joseph on 10-20-2023 Erythrocyte distribution width (RBC) [Entitic vol] 48.4 fL 35.1-43.9 [facility] Erythrocyte distribution width (RBC) [Ratio] 13.9 % 11.6-14.6 [facility] Immature granulocytes/100 WBC (Bld) 0.300 % 0.0-0.9 [facility] Comment on above: IG% - Immature Granu locytes (promyelocytes, myelocytes and metamyelocytes) > 1% indicates that a LEFT SHIFT is Present. MCH (RBC) [Entitic mass] 31.8 pg 27.0-32.0 [facility] Nucleated RBC/100 WBC (Bld) [Ratio] 0 % 0-5 [facility] MCHC Auto (RBC) [Mass/Vol]Or dered By: Randa Joseph on 10-20-2023 MCHC (RBC) [Mass/Vol] 33.5 g/dL 32-36 [place] Nitrite Test strip Ql (U)Ord ered By: Randa Joseph on 10-20-2023 Nitrite Ql (U) Positive Negative [facility] Platelets bldOrdered By: Maribell Joseph on 10-20-2023 Platelets (Bld) [#/Vol] 239 10*3/uL 150-450 [facility] Protein Test strip Ql (U)Ord ered By: Randa Joseph on 10-20-2023 Protein Ql (U) Negative Negative [facility] Urine blood detectionOrdered By: Randa Joseph on 10-20-2023 RBC Ql (U) 10 /ul Negative [facility] Urine clarityOrdered By: Maribell Joseph on 10-20-2023 Clarity (U) Sl. Cloudy Clear [facility] Urine color determinationOrd ered By: Randa Joseph on 10-20-2023 Color (U) Yellow Yellow [facility] Urine glucose detectionOrder ed By: aRnda Joseph on 10-20-2023 Glucose Ql (U) Normal mg/dl Normal [facility] Urine leukocyte esterase det ection by dipstickOrdered By: Randa Joseph on 10-20-2023 Leukocyte esterase Test strip Ql (U) 500 /ul Negative [facility] Urine pHOrdered By: Randa thacker on 10-20-2023 pH (U) 6.5 [pH] 5.0 - 8.0 [facility] Urine specific gravity measu rementOrdered By: Randa Joseph on 10-20-2023 Specific gravity (U) [Rel density] 1.010 1.002-1.030 [facility] Urobilinogen Auto test strip Ql (U)Ordered By: Randa Joseph on 10-20-2023 Urobilinogen Ql (U) Normal mg/dl Normal [place] Basophil percentageOrdered B y: Luiza Moon on 10-05-2023 Chloride [Moles/Vol] 115 mmol/L 98-107 [facility] Glucose [Mass/Vol] 86 mg/dL 74-106 [facility] Potassium [Moles/Vol] 3.7 mmol/L 3.5-5.1 [place] Sodium [Moles/Vol] 145 mmol/L 136-145 [facility] Laboratory - Chemistry and C hemistry - challengeOrdered By: Luiza Moon on 10-05-2023 CO2 [Moles/Vol] 25.0 mmol/L 21.0-32.0 [facility] Urea nitrogen/Creatinine [Mass ratio] 23.1 mg/mg 10-20 [facility] No Panel InformationOrdered By: Luiza Moon on 10-05-2023 Estimated GFR (MDRD) Amer 117 mL/min >60 [facility] Comment on above: GFR Calc Estimated GFR (MDRD) Non-Af Amer 96 mL/min >60 [facility] Comment on above: Non- GFR Calc Thyroid Stimulating Hormone (TSH) 1.79 uIU/mL 0.358-3.74 [facility] Vitamin D 25-Hydroxy 34.0 ng/mL [facility] Comment on above: Vitamin D 25(OH) Sta tus Range Deficiency <20 ng/mL (50nmol/L) Insufficiency 20 - 30 ng/mL (50 - 75 nmol/L) Sufficiency 30 - 100 ng/mL (75 - 250 nmol/L) Toxicity >100 ng/mL (>250 nmol/L) Serum or plasma calcium toya urement (mass/volume)Ordered By: Luiza Moon on 10-05-2023 Calcium [Mass/Vol] 9.0 mg/dL 8.5-10.1 [facility] Serum or plasma creatinine m easurement (mass/volume)Ordered By: Luiza Moon on 10-05-2023 Creatinine [Mass/Vol] 0.82 mg/dL 0.70-1.30 [place] Comment on above: The validity of the calculated GFR & GFRAA in patients over 70 years has not been determined. Clinical correlation is essential. Serum or plasma urea nitroge n measurement (mass/volume)Ordered By: Luiza Moon on 10-05-2023 Urea nitrogen [Mass/Vol] 19 mg/dL - [facility] Thin prep Papanicolaou smear with manual screeningOrdered By: Luiza Moon on 10-05-2023 Thin prep Papanicolaou smear with manual screening 5 - [facility] Absolute lymphocyte countOrd ered By: Merrill Burns on 09-02-2023 Lymphocytes Auto (Unsp spec) [#/Vol] 0.58 10*3/uL 0.83-4.51 [facility] Basophil percentageOrdered B y: Merrill Burns on 09-02-2023 Basophils/100 WBC (Bld) 0.3 % 0-1 [facility] Bilirubin [Mass/Vol] 0.30 mg/dL 0.20-1.00 [facility] Comment on above: For patients on eltr ombopag therapy, use of Dimension [place] TBIL is not recommended. Chloride [Moles/Vol] 109 mmol/L 98-107 [facility] Eosinophils/100 WBC (Bld) 0.0 % 0-5 [facility] Glucose [Mass/Vol] 111 mg/dL 74-106 [facility] Comment on above: Fasting Glucose resu lt from 100 to 125 mg/dL suggests IMPAIRED HOMEOSTASIS per A.D.A. criteria. Neutrophils (Bld) [#/Vol] 2.2 10*3/uL 2.0-7.7 [facility] Neutrophils/100 WBC (Bld) 67.8 % 47-70 [facility] Potassium [Moles/Vol] 3.7 mmol/L 3.5-5.1 [place] Protein [Mass/Vol] 7.2 g/dL 6.4-8.2 [facility] Sodium [Moles/Vol] 145 mmol/L 136-145 [facility] WBC (Bld) [#/Vol] 3.3 10*3/uL 4.4-11.0 [facility] Blood erythrocytes count (nu mber/volume)Ordered By: Merrill Burns on 09-02-2023 RBC (Bld) [#/Vol] 3.62 10*6/uL 4.6-6.2 [facility] Blood hemoglobin measurement (mass/volume)Ordered By: Merrill Burns on 09-02-2023 Hemoglobin (Bld) [Mass/Vol] 11.2 g/dL 13.0-16.5 [facility] Blood lymphocytes/100 leukoc ytesOrdered By: Merrill Burns on 09-02-2023 Lymphocytes/100 WBC (Bld) 17.6 % 19-41 [facility] Blood manual differential co mment interpretation (narrative result)Ordered By: Merrill Burns on 09-02-2023 Manual differential comment Celio (Bld) [Interp] SCANNED [facility] Blood monocytes/100 leukocyt esOrdered By: Merrill Burns on 09-02-2023 Monocytes/100 WBC (Bld) 14.0 % 0-10 [facility] Blood platelet mean volumeOr dered By: Merrill Burns on 09-02-2023 Platelet mean volume (Bld) [Entitic vol] 9.5 fL 6.2-12.0 [facility] Determination of erythrocyte mean corpuscular volume (MCV)Ordered By: Merrill Burns on 09-02-2023 MCV (RBC) [Entitic vol] 98.6 fL 80-94 [facility] Hematocrit Auto (Bld) [Volum e fraction]Ordered By: Merrill Burns on 09-02-2023 Hematocrit (Bld) [Volume fraction] 35.7 % 40-54 [facility] INR in Blood by Coagulation assayOrdered By: Merrill Burns on 09-02-2023 INR Coag (Bld) [Relative time] 1.0 {INR} [facility] Laboratory - Chemistry and C hemistry - challengeOrdered By: Merrill Burns on 09-02-2023 ALP [Catalytic activity/Vol] 93 U/L 45-117 [facility] ALT [Catalytic activity/Vol] 33 U/L 16-61 [facility] CO2 [Moles/Vol] 28.0 mmol/L 21.0-32.0 [facility] Free T4 [Mass/Vol] 1.03 ng/dL 0.76-1.46 [facility] Globulin (S) [Mass/Vol] 3.7 g/dL 2.2-4.2 [facility] T4 [Mass/Vol] 8.4 ug/dL 4.5-12.1 [facility] Urea nitrogen/Creatinine [Mass ratio] 18.3 mg/mg 10-20 [facility] Laboratory - CoagulationOrde red By: Merrill Burns on 09-02-2023 aPTT Coag (Bld) [Time] 27.6 s 24.1-36.2 [facility] PT Coag (PPP) [Time] 13.7 s 11.7-14.9 [facility] Laboratory - Hematology and Cell countsOrdered By: Merrill Burns on 09-02-2023 Erythrocyte distribution width (RBC) [Entitic vol] 51.8 fL 35.1-43.9 [facility] Erythrocyte distribution width (RBC) [Ratio] 14.4 % 11.6-14.6 [facility] Immature granulocytes/100 WBC (Bld) 0.300 % 0.0-0.9 [facility] Comment on above: IG% - Immature Granu locytes (promyelocytes, myelocytes and metamyelocytes) > 1% indicates that a LEFT SHIFT is Present. MCH (RBC) [Entitic mass] 30.9 pg 27.0-32.0 [facility] Nucleated RBC/100 WBC (Bld) [Ratio] 0 % 0-5 [facility] MCHC Auto (RBC) [Mass/Vol]Or dered By: Merrill Burns on 09-02-2023 MCHC (RBC) [Mass/Vol] 31.4 g/dL 32-36 [place] No Panel InformationOrdered By: Merrill Burns on 09-02-2023 Estimated Creatinine Clearance Calc 85.26 ml/min [facility] Estimated GFR (MDRD) Amer 117 mL/min >60 [facility] Comment on above: GFR Calc Estimated GFR (MDRD) Non-Af Amer 97 mL/min >60 [facility] Comment on above: Non- GFR Calc Free Triiodothyronine (T3) pg/dL 2.3 pg/mL 2.18-3.98 [facility] Thyroid Stimulating Hormone (TSH) 3.82 uIU/mL 0.358-3.74 [facility] Platelets bldOrdered By: [facility] jese Grant on 09-02-2023 Platelets (Bld) [#/Vol] 233 10*3/uL 150-450 [facility] Review by pathologistOrdered By: Merrill Burns on 09-02-2023 Pathologist review Celio (Unsp spec) [Interp] Reviewed [facility] Comment on above: Previous reported re sult: February aditya Edited by: RGOOD on 09/07/23:0940Absolute LymphopeniaMacrocytic anemia.Clinical correlation suggested.Uriel Lemus D.O. 09/07/23 AMENDED REPORT 09/07/23 0940 PATH REV previously reported as: February aditya Serum or plasma albumin toya urement (mass/volume)Ordered By: Merrill Burns on 09-02-2023 Albumin [Mass/Vol] 3.5 g/dL 3.2-5.0 [facility] Serum or plasma albumin/glob ulin mass ratioOrdered By: Merrill Burns on 09-02-2023 Albumin/Globulin [Mass ratio] 0.9 {ratio} 0.9-2.4 [facility] Serum or plasma calcium toya urement (mass/volume)Ordered By: Merrill Burns on 09-02-2023 Calcium [Mass/Vol] 8.3 mg/dL 8.5-10.1 [facility] Serum or plasma creatinine m easurement (mass/volume)Ordered By: Merrill Burns on 09-02-2023 Creatinine [Mass/Vol] 0.82 mg/dL 0.70-1.30 [place] Comment on above: The validity of the calculated GFR & GFRAA in patients over 70 years has not been determined. Clinical correlation is essential. Serum or plasma transthyreti n measurement (mass/volume)Ordered By: Merrill Burns on 09-02-2023 Prealbumin [Mass/Vol] 19.5 mg/dL 20.0-40.0 [place] Serum or plasma urea nitroge n measurement (mass/volume)Ordered By: Merrill Burns on 09-02-2023 Urea nitrogen [Mass/Vol] 15 mg/dL 7-18 [facility] Thin prep Papanicolaou smear with manual screeningOrdered By: Merrill Burns on 09-02-2023 Thin prep Papanicolaou smear with manual screening 25 U/L 15-37 [facility] Thin prep Papanicolaou smear with manual screening 8 5-15 [facility] No Panel InformationOrdered By: Randa Joseph on 06-03-2023 Prostate Specific Antigen Screen 2.40 ng/mL 0.00-4.00 [facility] Comment on above: This test was perfor med using the TPSA assay method for the[employer] chemistry system. Values obtained with differentassay methods cannot be used interchangably.When changing PSA assays in the course of monitoring apatient, additional sequential testing should be carriedout to confirm baseline values. Basophil percentageOrdered B y: Dr. Moon on 03-26-2023 Chloride [Moles/Vol] 110 mmol/L 98-107 [facility] Glucose [Mass/Vol] 121 mg/dL 74-106 [facility] Comment on above: Fasting Glucose resu lt from 100 to 125 mg/dL suggests IMPAIRED HOMEOSTASIS per A.D.A. criteria. Potassium [Moles/Vol] 4.0 mmol/L 3.5-5.1 [place] Sodium [Moles/Vol] 142 mmol/L 136-145 [facility] Laboratory - Chemistry and C hemistry - challengeOrdered By: Dr. Moon on 03-26-2023 CO2 [Moles/Vol] 27.0 mmol/L 21.0-32.0 [facility] Urea nitrogen/Creatinine [Mass ratio] 14.9 mg/mg 10-20 [facility] No Panel InformationOrdered By: Dr. Moon on 03-26-2023 Estimated GFR (MDRD) Amer 100 mL/min >60 [facility] Comment on above: GFR Calc Estimated GFR (MDRD) Non-Af Amer 83 mL/min >60 [facility] Comment on above: Non- GFR Calc Thyroid Stimulating Hormone (TSH) 3.27 uIU/mL 0.358-3.74 [facility] Vitamin D 25-Hydroxy 44.1 ng/mL [facility] Comment on above: Vitamin D 25(OH) Sta tus Range Deficiency <20 ng/mL (50nmol/L) Insufficiency 20 - 30 ng/mL (50 - 75 nmol/L) Sufficiency 30 - 100 ng/mL (75 - 250 nmol/L) Toxicity >100 ng/mL (>250 nmol/L) Serum or plasma calcium toya urement (mass/volume)Ordered By: Dr. Moon on 03-26-2023 Calcium [Mass/Vol] 9.7 mg/dL 8.5-10.1 [facility] Serum or plasma creatinine m easurement (mass/volume)Ordered By: Dr. Moon on 03-26-2023 Creatinine [Mass/Vol] 0.94 mg/dL 0.70-1.30 [place] Comment on above: The validity of the calculated GFR & GFRAA in patients over 70 years has not been determined. Clinical correlation is essential. Serum or plasma urea nitroge n measurement (mass/volume)Ordered By: Dr. Moon on 03-26-2023 Urea nitrogen [Mass/Vol] 14 mg/dL - [facility] Thin prep Papanicolaou smear with manual screeningOrdered By: Dr. Moon on 03-26-2023 Thin prep Papanicolaou smear with manual screening 03-02 [facility] No Panel InformationOrdered By: Dr. Moon on 12-03-2022 Thyroid Stimulating Hormone (TSH) 3.86 uIU/mL 0.358-3.74 [facility] Influenza virus A and B RNA and SARS-CoV-2 (COVID-19) N gene panel LIUDMILA+probe (Resp)on 10-21-2022 FLUAV RNA LIUDMILA+probe Ql (Unsp spec) Negative Negative for Influenza A by RT-PCR [facility] FLUBV RNA LIUDMILA+probe Ql (Unsp spec) Negative Negative for Influenza B by RT-PCR [facility] SARS-CoV-2 (COVID-19) RNA LIUDMILA+probe Ql (Resp) SARS-CoV-2 (Agent of COVID-19) Not Detected by RT-PCR or equivalent method. Not Detected [facility] Basophil percentageOrdered B y: Dr. Moon on 09-22-2022 Chloride [Moles/Vol] 109 mmol/L 98-107 [facility] Glucose [Mass/Vol] 101 mg/dL 74-106 [facility] Comment on above: Fasting Glucose resu lt from 100 to 125 mg/dL suggests IMPAIRED HOMEOSTASIS per A.D.A. criteria. Potassium [Moles/Vol] 3.9 mmol/L 3.5-5.1 [place] Sodium [Moles/Vol] 145 mmol/L 136-145 [facility] Laboratory - Chemistry and C hemistry - challengeOrdered By: Dr. Moon on 09-22-2022 CO2 [Moles/Vol] 32.0 mmol/L 21.0-32.0 [facility] Urea nitrogen/Creatinine [Mass ratio] 13.0 mg/mg 10-20 [facility] No Panel InformationOrdered By: Dr. Moon on 09-22-2022 Estimated GFR (MDRD) Amer 102 mL/min >60 [facility] Comment on above: GFR Calc Estimated GFR (MDRD) Non-Af Amer 85 mL/min >60 [facility] Comment on above: Non- GFR Calc Thyroid Stimulating Hormone (TSH) 7.24 uIU/mL 0.358-3.74 [facility] Vitamin D 25-Hydroxy 36.3 ng/mL [facility] Comment on above: Vitamin D 25(OH) Sta tus Range Deficiency <20 ng/mL (50nmol/L) Insufficiency 20 - 30 ng/mL (50 - 75 nmol/L) Sufficiency 30 - 100 ng/mL (75 - 250 nmol/L) Toxicity >100 ng/mL (>250 nmol/L) Serum or plasma calcium toya urement (mass/volume)Ordered By: Dr. Moon on 09-22-2022 Calcium [Mass/Vol] 9.4 mg/dL 8.5-10.1 [facility] Serum or plasma creatinine m easurement (mass/volume)Ordered By: Dr. Moon on 09-22-2022 Creatinine [Mass/Vol] 0.92 mg/dL 0.70-1.30 [place] Comment on above: The validity of the calculated GFR & GFRAA in patients over 70 years has not been determined. Clinical correlation is essential. Serum or plasma urea nitroge n measurement (mass/volume)Ordered By: Dr. Moon on 09-22-2022 Urea nitrogen [Mass/Vol] 12 mg/dL 7-18 [facility] Thin prep Papanicolaou smear with manual screeningOrdered By: Dr. Moon on 09-22-2022 Thin prep Papanicolaou smear with manual screening 4 5-15 [facility] ANES POSTPROC EVALon 022 ANES POSTPROC EVAL HNO ID: [id number] Author: Blanquita Trammell MD Service: ? Author Type: Anesthesiologist Type: Anesthesia Postprocedure Evaluation Filed: 09/10/2022 2:40 PM Note Text: POST ANESTHESIA EVALUATION NOTE : 1945 Procedure Summary Date: 09/10/22 Room / Location: [place] [address] / [place] Anesthesia Start: 1238 Anesthesia Stop: 1409 [...] September 10, 2022 TIME: 2:39 PM CSN: [id number] [facility] ANES PRE-OPon 09-10-2022 ANES PRE-OP HNO ID: [id number] Author: Donte Titus MD Service: Anesthesiology Author Type: Physician Type: Anesthesia Preprocedure Evaluation Filed: 09/10/2022 12:18 PM Note Text: ANESTHESIOLOGY DAY OF SURGERY NOTE : 1945 Procedure Information Date/Time: 09/10/22 1345 Procedure: HERNIORRHAPHY INGUINAL RECURRENT REDUCIBLE (Left) Location: [place]04 [place] Surgeons: Maxx Mayer MD Estimated body [...] September 10, 2022 TIME: 12:17 PM CSN: [id number] Normal [facility] HISTORY PHYSICALon HISTORY PHYSICAL HNO ID: [id number] Author: Maxx Mayer MD Service: General Surgery [...] PFRMD 08/13/10 EGD TRANSORAL BIOPSY SINGLE/MULTIPLE 08/13/10 ESOPHAGOGASTRODUODENOSCO PY TRANSORAL DIAGNOSTIC 01/04/2015 EGD ESOPHAGOGASTRODUODENOSCO PY TRANSORAL DIAGNOSTIC 04/03/16 EGD IMPLANT MESH OPN HERNIA RPR/DEBRIDEMENT CLOSURE 05/10/2015 left wrist surgery 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 [facility] OPERATIVE NOon 09-10-2022 OPERATIVE NO HNO ID: [id number] Author: Maxx Mayer MD Service: General Surgery Author Type: Physician Type: Operative Report Filed: 09/10/2022 2:12 PM Note Text: OPERATIVE/PROCEDURE REPORT LOG ID: [id number] SURGERY/PROCEDURE DATE: 09/10/2022 INCISION/PROCEDURE START TIME: 1:09 PM INCISION CLOSE/PROCEDURE END TIME: 2:00 PM SURGEON(S)/PROCEDURALIST (S) AND BUSINESS RISK CONSULTANT(S): Surgeon(s) and Role: * Maxx Mayer MD - Primary Registered Nurse Professor Of Biostatistics: Joana Mchugh RN SURGERY/PROCEDURE(S): Open left inguinal [...] procedure well. Joana Bower RN was my workforce development assistant. She assisted with retraction, visualization and performed skin closure. No additional surgeons or qualified residents were available. PRE-OP/PRE-PROCEDURE DIAGNOSIS: Left inguinal hernia POST-OP/POST-PROCEDURE DIAGNOSIS: Same as Preop ESTIMATED BLOOD LOSS: <20 mls SPECIMENS: None IMPLANTABLE DEVICES: Implant Name Type Inv. Item Serial No. Blister Packing Machine Tender Lot No. LRB No. Used Action MESH SURGIPRO LARGE POLYPROPYLENE SURGICAL NONABSORBABLE PLUG KNITTED - [id number] Mesh MESH SURGIPRO LARGE POLYPROPYLENE SURGICAL NONABSORBABLE PLUG KNITTED [employer] [id number] Left 1 Implanted DRAINS: None COMPLICATIONS: None PARTICIPATION IN SURGERY/PROCEDURE: I/primary surgeon/proceduralist performed the procedure with assistance. SIGNATURE: Maxx Mayer III, MD PATIENT NAME: Wellington Gonzalez DATE: September 10, 2022 TIME: 2:05 PM Normal [facility] Basophil percentageOrdered B y: Dr. Joseph on 07-16-2022 Basophil percentage < 0.9 mg/dL 0.70-1.30 [facility] No Panel InformationOrdered By: Dr. Joseph on 07-16-2022 Bedside Estimated GFR (eGFR) > 60.0000 mL/min >60 [facility] Basophil percentageon 2021 Chloride [Moles/Vol] 112 mmol/L 98-107 [facility] Work Phone: Glucose [Mass/Vol] 103 mg/dL 74-106 [facility] Work Phone: Comment on above: Fasting Glucose resu lt from 100 to 125 mg/dL suggests IMPAIRED HOMEOSTASIS per A.D.A. criteria. Potassium [Moles/Vol] 3.9 mmol/L 3.5-5.1 [place] Work Phone: Sodium [Moles/Vol] 140 mmol/L 136-145 [facility] Work Phone: Laboratory - Chemistry and C hemistry - challengeon 05-01-2022 CO2 [Moles/Vol] 26.0 mmol/L 21.0-32.0 [facility] Work Phone: Urea nitrogen/Creatinine [Mass ratio] 15.7 mg/mg 10-20 [facility] Work Phone: No Panel Informationon 05-01 Estimated GFR (MDRD) Amer 99 mL/min >60 [facility] Work Phone: Comment on above: GFR Calc Estimated GFR (MDRD) Non-Af Amer 82 mL/min >60 [facility] Work Phone: Comment on above: Non- GFR Calc Thyroid Stimulating Hormone (TSH) 5.12 uIU/mL 0.358-3.74 [facility] Work Phone: Serum or plasma calcium toya urement (mass/volume)on 05-01-2022 Calcium [Mass/Vol] 9.2 mg/dL 8.5-10.1 [facility] Work Phone: Serum or plasma creatinine m easurement (mass/volume)on 05-01-2022 Creatinine [Mass/Vol] 0.95 mg/dL 0.70-1.30 [place] Work Phone: Comment on above: The validity of the calculated GFR & GFRAA in patients over 70 years has not been determined. Clinical correlation is essential. Serum or plasma urea nitroge n measurement (mass/volume)on 05-01-2022 Urea nitrogen [Mass/Vol] 15 mg/dL 7-18 [facility] Work Phone: Thin prep Papanicolaou smear with manual screeningon 05-01-2022 Thin prep Papanicolaou smear with manual screening 2 5-15 [facility] Work Phone: Basophil percentageon 2021 Chloride [Moles/Vol] 111 mmol/L 98-107 [facility] Work Phone: Glucose [Mass/Vol] 95 mg/dL 74-106 [facility] Work Phone: Potassium [Moles/Vol] 3.9 mmol/L 3.5-5.1 [place] Work Phone: Sodium [Moles/Vol] 143 mmol/L 136-145 [facility] Work Phone: Laboratory - Chemistry and C hemistry - challengeon 02-19-2022 CO2 [Moles/Vol] 27.0 mmol/L 21.0-32.0 [facility] Work Phone: Urea nitrogen/Creatinine [Mass ratio] 19.9 mg/mg 10-20 [facility] Work Phone: No Panel Informationon 02-19 Estimated GFR (MDRD) Amer 120 mL/min >60 [facility] Work Phone: Comment on above: GFR Calc Estimated GFR (MDRD) Non-Af Amer 99 mL/min >60 [facility] Work Phone: Comment on above: Non- GFR Calc Thyroid Stimulating Hormone (TSH) 10.10 uIU/mL 0.358-3.74 [facility] Work Phone: Vitamin D 25-Hydroxy 57.5 ng/mL [facility] Work Phone: Comment on above: Vitamin D 25(OH) Sta tus Range Deficiency <20 ng/mL (50nmol/L) Insufficiency 20 - 30 ng/mL (50 - 75 nmol/L) Sufficiency 30 - 100 ng/mL (75 - 250 nmol/L) Toxicity >100 ng/mL (>250 nmol/L) Serum or plasma calcium toya urement (mass/volume)on 02-19-2022 Calcium [Mass/Vol] 8.7 mg/dL 8.5-10.1 [facility] Work Phone: Serum or plasma creatinine m easurement (mass/volume)on 02-19-2022 Creatinine [Mass/Vol] 0.80 mg/dL 0.70-1.30 [place] Work Phone: Comment on above: The validity of the calculated GFR & GFRAA in patients over 70 years has not been determined. Clinical correlation is essential. Serum or plasma urea nitroge n measurement (mass/volume)on 02-19-2022 Urea nitrogen [Mass/Vol] 16 mg/dL 7-18 [facility] Work Phone: Thin prep Papanicolaou smear with manual screeningon 02-19-2022 Thin prep Papanicolaou smear with manual screening 5 5-15 [facility] Work Phone: Laboratory - Microbiology an d Antimicrobial susceptibilityon 10-01-2021 SARS-CoV-2 (COVID-19) RNA LIUDMILA+probe Ql (Unsp spec) Not detected [facility] Work Phone: CNOVon 01-12-2019 CNOV Office Visit (BIBIAGAK ) -------- WELLINGTON GONZALEZ ([id number]) 1945 M Date Time Provider Department 01/12/19 [...] 1945 Current Age: [age] year old MRN/E# [id number] Last Office Visit: 12/08/2018 Chief Complaint: This [...] 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 Carmen Echevarria MD Normal [facility] DX CERVICAL 2V AP/LATon 09-18 DX CERVICAL 2V AP/LAT Performed at [facility] APPROVED BY: Ricardo Darby MD [...] change from the previous CT scanner Normal [facility] CT CERVICAL SPINE W/O CONTRA STon 07-07-2018 CT CERVICAL SPINE W/O CONTRAST Performed at [facility] APPROVED BY: Jaqui Jo MD [...] with counting from the craniocervical junction. Normal [facility] Office Visit: UC: Keith Fall risk assessment No Invalid Interpretation Code [facility] Work Phone: Protein mass conc Done Invalid Interpretation Code [facility] Work Phone: Tobacco smoking status NHIS Never smoker Invalid Interpretation Code [facility] Work Phone: Vital Signs Date Time Vital Sign Value Performing Clinician Facility 08-11-2025 12:48-0400 Body temperature 96 [degF] Dr. Randa Joseph DO Work Phone: [facility] 08-11-2025 12:48-0400 Diastolic blood pressure 61 mm[Hg] Dr. Randa Joseph DO Work Phone: [facility] 08-11-2025 12:48-0400 Heart rate 65 /min Dr. Randa Joseph DO Work Phone: [facility] 08-11-2025 12:48-0400 Respiratory rate 15 /min Dr. Randa Joseph DO Work Phone: [facility] 08-11-2025 12:48-0400 Systolic blood pressure 142 mm[Hg] Dr. Randa Joseph DO Work Phone: [facility] 08-01-2025 08:31-0400 Body mass index (BMI) [Ratio] 29.9 kg/m2 Dr. Randa Joseph DO Work Phone: [facility] 08-01-2025 08:31-0400 Body temperature 97.4 [degF] Dr. Randa Joseph DO Work Phone: [facility] 08-01-2025 08:31-0400 Body weight 100.[address] Randa Joseph DO Work Phone: [facility] 08-01-2025 08:31-0400 Diastolic blood pressure 70 mm[Hg] Dr. Randa Joseph DO Work Phone: [facility] 08-01-2025 08:31-0400 Heart rate 72 /min Dr. Randa Joseph DO Work Phone: [facility] 08-01-2025 08:31-0400 Respiratory rate 20 /min Dr. Randa Joseph DO Work Phone: [facility] 08-01-2025 08:31-0400 SaO2% (BldA) [Mass fraction] 94 % Dr. Randa Joseph DO Work Phone: [facility] 08-01-2025 08:31-0400 Systolic blood pressure 130 mm[Hg] Dr. Randa Joseph DO Work Phone: [facility] 07-18-2025 11:16-0400 Body temperature 97.4 [degF] Dr. Randa Joseph DO Work Phone: [facility] 07-18-2025 11:16-0400 Diastolic blood pressure 61 mm[Hg] Dr. Randa Joseph DO Work Phone: [facility] 07-18-2025 11:16-0400 Heart rate 79 /min Dr. Randa Joseph DO Work Phone: [facility] 07-18-2025 11:16-0400 Respiratory rate 18 /min Dr. Randa Joseph DO Work Phone: [facility] 07-18-2025 11:16-0400 Systolic blood pressure 144 mm[Hg] Dr. Randa Joseph DO Work Phone: [facility] 07-11-2025 14:20-0400 Body height 182.[address] Randa Joseph DO Work Phone: [facility] 07-11-2025 14:20-0400 Body mass index (BMI) [Ratio] 29.1 kg/m2 Dr. Randa Joseph DO Work Phone: [facility] 07-11-2025 14:20-0400 Body temperature 97.7 [degF] Dr. Randa Joseph DO Work Phone: [facility] 07-11-2025 14:20-0400 Body weight 97.[address] Randa Joseph DO Work Phone: [facility] 07-11-2025 14:20-0400 Diastolic blood pressure 49 mm[Hg] Dr. Randa Joseph DO Work Phone: [facility] 07-11-2025 14:20-0400 Heart rate 72 /min Dr. Randa Joseph DO Work Phone: [facility] 07-11-2025 14:20-0400 Respiratory rate 16 /min Dr. Randa Joseph DO Work Phone: [facility] 07-11-2025 14:20-0400 SaO2% (BldA) [Mass fraction] 97 % Dr. Randa Joseph DO Work Phone: [facility] 07-11-2025 14:20-0400 Systolic blood pressure 114 mm[Hg] Dr. Randa Joseph DO Work Phone: [facility] 06-15-2025 09:10-0400 Body temperature 96.8 [degF] Dr. Randa Joseph DO Work Phone: [facility] 06-15-2025 09:10-0400 Diastolic blood pressure 70 mm[Hg] Dr. Randa Joseph DO Work Phone: [facility] 06-15-2025 09:10-0400 Heart rate 77 /min Dr. Randa Joseph DO Work Phone: [facility] 06-15-2025 09:10-0400 Respiratory rate 18 /min Dr. Randa Joseph DO Work Phone: [facility] 06-15-2025 09:10-0400 Systolic blood pressure 144 mm[Hg] Dr. Randa Joseph DO Work Phone: [facility] 05-18-2025 09:10-0400 Body temperature 96.7 [degF] Dr. Randa Joseph DO Work Phone: [facility] 05-18-2025 09:10-0400 Diastolic blood pressure 67 mm[Hg] Dr. Randa Joseph DO Work Phone: [facility] 05-18-2025 09:10-0400 Heart rate 67 /min Dr. Randa Joseph DO Work Phone: [facility] 05-18-2025 09:10-0400 Respiratory rate 18 /min Dr. Randa Joseph DO Work Phone: [facility] 05-18-2025 09:10-0400 Systolic blood pressure 130 mm[Hg] Dr. Randa Joseph DO Work Phone: [facility] 05-16-2025 10:33-0400 Body height 182.[address] Randa Joseph DO Work Phone: [facility] 05-16-2025 10:33-0400 Body mass index (BMI) [Ratio] 29.1 kg/m2 Dr. Randa Joseph DO Work Phone: [facility] 05-16-2025 10:33-0400 Body temperature 96.9 [degF] Dr. Randa Joseph DO Work Phone: [facility] 05-16-2025 10:33-0400 Body weight 97.[address] Randa Joseph DO Work Phone: [facility] 05-16-2025 10:33-0400 Diastolic blood pressure 50 mm[Hg] Dr. Randa Joseph DO Work Phone: [facility] 05-16-2025 10:33-0400 Heart rate 72 /min Dr. Randa Joseph DO Work Phone: [facility] 05-16-2025 10:33-0400 Respiratory rate 16 /min Dr. Randa Joseph DO Work Phone: [facility] 05-16-2025 10:33-0400 SaO2% (BldA) [Mass fraction] 98 % Dr. Randa Joseph DO Work Phone: [facility] 05-16-2025 10:33-0400 Systolic blood pressure 133 mm[Hg] Dr. Randa Joseph DO Work Phone: [facility] 05-15-2025 15:13-0400 Body temperature 98 [degF] Dr. Randa Jsoeph DO Work Phone: [facility] 05-15-2025 15:13-0400 Diastolic blood pressure 68 mm[Hg] Dr. Randa Joseph DO Work Phone: [facility] 05-15-2025 15:13-0400 Heart rate 79 /min Dr. Randa Joseph DO Work Phone: [facility] 05-15-2025 15:13-0400 Respiratory rate 14 /min Dr. Randa Joseph DO Work Phone: [facility] 05-15-2025 15:13-0400 Systolic blood pressure 119 mm[Hg] Dr. Randa Joseph DO Work Phone: [facility] 04-26-2025 10:57-0400 Body temperature 98 [degF] Dr. Randa Joseph DO Work Phone: [facility] 04-26-2025 10:57-0400 Body weight 99.[address] Randa Joseph DO Work Phone: [facility] 04-26-2025 10:57-0400 Diastolic blood pressure 63 mm[Hg] Dr. Randa Joseph DO Work Phone: [facility] 04-26-2025 10:57-0400 Heart rate 68 /min Dr. Randa Joseph DO Work Phone: [facility] 04-26-2025 10:57-0400 Respiratory rate 16 /min Dr. Randa Joseph DO Work Phone: [facility] 04-26-2025 10:57-0400 SaO2% (BldA) [Mass fraction] 98 % Dr. Randa Joseph DO Work Phone: [facility] 04-26-2025 10:57-0400 Systolic blood pressure 119 mm[Hg] Dr. Randa Joseph DO Work Phone: [facility] 04-20-2025 08:43-0400 Body temperature 96.4 [degF] Dr. Randa Joseph DO Work Phone: [facility] 04-20-2025 08:43-0400 Diastolic blood pressure 63 mm[Hg] Dr. Randa Joseph DO Work Phone: [facility] 04-20-2025 08:43-0400 Heart rate 66 /min Dr. Randa Joseph DO Work Phone: [facility] 04-20-2025 08:43-0400 Respiratory rate 18 /min Dr. Randa Joseph DO Work Phone: [facility] 04-20-2025 08:43-0400 Systolic blood pressure 134 mm[Hg] Dr. Randa Joseph DO Work Phone: [facility] 04-14-2025 12:28-0400 Body height 182.[address] Randa Joseph DO Work Phone: [facility] 04-14-2025 12:28-0400 Body temperature 97.4 [degF] Dr. Randa Joseph DO Work Phone: [facility] 04-14-2025 12:28-0400 Diastolic blood pressure 57 mm[Hg] Dr. Randa Joseph DO Work Phone: [facility] 04-14-2025 12:28-0400 Heart rate 60 /min Dr. Randa Joseph DO Work Phone: [facility] 04-14-2025 12:28-0400 Respiratory rate 16 /min Dr. Randa Joseph DO Work Phone: [facility] 04-14-2025 12:28-0400 Systolic blood pressure 113 mm[Hg] Dr. Randa Joseph DO Work Phone: [facility] 04-13-2025 07:36-0400 Body mass index (BMI) [Ratio] 27.8 kg/m2 Dr. Randa Joseph DO Work Phone: [facility] 04-13-2025 07:36-0400 Body weight 92.[address] Randa Joseph DO Work Phone: [facility] 04-12-2025 14:56-0400 Body temperature 99 [degF] Dr. Randa Joseph DO Work Phone: [facility] 04-12-2025 14:56-0400 Diastolic blood pressure 77 mm[Hg] Dr. Randa Joseph DO Work Phone: [facility] 04-12-2025 14:56-0400 Heart rate 68 /min Dr. Randa Joseph DO Work Phone: [facility] 04-12-2025 14:56-0400 Respiratory rate 18 /min Dr. Randa Joseph DO Work Phone: [facility] 04-12-2025 14:56-0400 Systolic blood pressure 133 mm[Hg] Dr. Randa Joseph DO Work Phone: [facility] 03-28-2025 10:23-0400 Body height 182.[address] Randa Joseph DO Work Phone: [facility] 03-28-2025 10:23-0400 Body temperature 96.9 [degF] Dr. Randa Joseph DO Work Phone: [facility] 03-28-2025 10:23-0400 Diastolic blood pressure 55 mm[Hg] Dr. Randa Joseph DO Work Phone: [facility] 03-28-2025 10:23-0400 Heart rate 57 /min Dr. Randa Joseph DO Work Phone: [facility] 03-28-2025 10:23-0400 Respiratory rate 16 /min Dr. Randa Joseph DO Work Phone: [facility] 03-28-2025 10:23-0400 SaO2% (BldA) [Mass fraction] 99 % Dr. Randa Joseph DO Work Phone: [facility] 03-28-2025 10:23-0400 Systolic blood pressure 128 mm[Hg] Dr. Randa Joseph DO Work Phone: [facility] 03-28-2025 07:33-0400 Body mass index (BMI) [Ratio] 28.7 kg/m2 Dr. Randa Joseph DO Work Phone: [facility] 03-28-2025 07:33-0400 Body temperature 97.2 [degF] Dr. Randa Joseph DO Work Phone: [facility] 03-28-2025 07:33-0400 Body weight 96.[address] Randa Joseph DO Work Phone: [facility] 03-28-2025 07:33-0400 Diastolic blood pressure 59 mm[Hg] Dr. Randa Joseph DO Work Phone: [facility] 03-28-2025 07:33-0400 Heart rate 60 /min Dr. Randa Joseph DO Work Phone: [facility] 03-28-2025 07:33-0400 Respiratory rate 20 /min Dr. Randa Joseph DO Work Phone: [facility] 03-28-2025 07:33-0400 SaO2% (BldA) [Mass fraction] 95 % Dr. Randa Joseph DO Work Phone: [facility] 03-28-2025 07:33-0400 Systolic blood pressure 107 mm[Hg] Dr. Randa Joseph DO Work Phone: [facility] 03-27-2025 11:02-0400 Body temperature 96.7 [degF] Dr. Randa Joseph DO Work Phone: [facility] 03-27-2025 11:02-0400 Diastolic blood pressure 64 mm[Hg] Dr. Randa Joseph DO Work Phone: [facility] 03-27-2025 11:02-0400 Heart rate 68 /min Dr. Randa Joseph DO Work Phone: [facility] 03-27-2025 11:02-0400 Respiratory rate 18 /min Dr. Randa Joseph DO Work Phone: [facility] 03-27-2025 11:02-0400 Systolic blood pressure 120 mm[Hg] Dr. Randa Joseph DO Work Phone: [facility] 03-16-2025 08:50-0400 Body temperature 96 [degF] Dr. Randa Joseph DO Work Phone: [facility] 03-16-2025 08:50-0400 Diastolic blood pressure 47 mm[Hg] Dr. Randa Joseph DO Work Phone: [facility] 03-16-2025 08:50-0400 Heart rate 71 /min Dr. Randa Joseph DO Work Phone: [facility] 03-16-2025 08:50-0400 Respiratory rate 16 /min Dr. Randa Joseph DO Work Phone: [facility] 03-16-2025 08:50-0400 Systolic blood pressure 106 mm[Hg] Dr. Randa Joseph DO Work Phone: [facility] 03-01-2025 09:39-0400 Body temperature 98.2 [degF] Dr. Randa Joseph DO Work Phone: [facility] 03-01-2025 09:39-0400 Body weight 98.[address] Randa Joseph DO Work Phone: [facility] 03-01-2025 09:39-0400 Diastolic blood pressure 66 mm[Hg] Dr. Randa Joseph DO Work Phone: [facility] 03-01-2025 09:39-0400 Heart rate 64 /min Dr. Randa Joseph DO Work Phone: [facility] 03-01-2025 09:39-0400 Respiratory rate 16 /min Dr. Randa Joseph DO Work Phone: [facility] 03-01-2025 09:39-0400 SaO2% (BldA) [Mass fraction] 97 % Dr. Randa Joseph DO Work Phone: [facility] 03-01-2025 09:39-0400 Systolic blood pressure 121 mm[Hg] Dr. Randa Joseph DO Work Phone: [facility] 02-27-2025 11:24-0400 Body temperature 98.1 [degF] Dr. Randa Joseph DO Work Phone: [facility] 02-27-2025 11:24-0400 Diastolic blood pressure 67 mm[Hg] Dr. Randa Joseph DO Work Phone: [facility] 02-27-2025 11:24-0400 Heart rate 62 /min Dr. Randa Joseph DO Work Phone: [facility] 02-27-2025 11:24-0400 Respiratory rate 14 /min Dr. Randa Joseph DO Work Phone: [facility] 02-27-2025 11:24-0400 Systolic blood pressure 142 mm[Hg] Dr. Randa Joseph DO Work Phone: [facility] 01-24-2025 14:06-0400 Body height 182.[address] Randa Joseph DO Work Phone: [facility] 01-24-2025 14:06-0400 Body temperature 97.7 [degF] Dr. Randa Joseph DO Work Phone: [facility] 01-24-2025 14:06-0400 Diastolic blood pressure 72 mm[Hg] Dr. Randa Joseph DO Work Phone: [facility] 01-24-2025 14:06-0400 Heart rate 72 /min Dr. Randa Joseph DO Work Phone: [facility] 01-24-2025 14:06-0400 Respiratory rate 18 /min Dr. Randa Joseph DO Work Phone: [facility] 01-24-2025 14:06-0400 SaO2% (BldA) [Mass fraction] 99 % Dr. Randa Joseph DO Work Phone: [facility] 01-24-2025 14:06-0400 Systolic blood pressure 134 mm[Hg] Dr. Randa Joseph DO Work Phone: [facility] 12-07-2024 08:46-0500 Body mass index (BMI) [Ratio] 29.1 kg/m2 Dr. Randa Joseph DO Work Phone: [facility] 12-07-2024 08:46-0500 Body temperature 97.4 [degF] Dr. Randa Joseph DO Work Phone: [facility] 12-07-2024 08:46-0500 Body weight 97.[address] Randa Joseph DO Work Phone: [facility] 12-07-2024 08:46-0500 Diastolic blood pressure 60 mm[Hg] Dr. Randa Joseph DO Work Phone: [facility] 12-07-2024 08:46-0500 Heart rate 70 /min Dr. Randa Joseph DO Work Phone: [facility] 12-07-2024 08:46-0500 Respiratory rate 18 /min Dr. Randa Joseph DO Work Phone: [facility] 12-07-2024 08:46-0500 SaO2% (BldA) [Mass fraction] 97 % Dr. Randa Joseph DO Work Phone: [facility] 12-07-2024 08:46-0500 Systolic blood pressure 109 mm[Hg] Dr. Randa Joseph DO Work Phone: [facility] 11-30-2024 14:00-0500 Body height 182.[address] Randa Joseph DO Work Phone: [facility] 11-30-2024 14:00-0500 Body temperature 97.7 [degF] Dr. Randa Joseph DO Work Phone: [facility] 11-30-2024 14:00-0500 Diastolic blood pressure 58 mm[Hg] Dr. Randa Joseph DO Work Phone: [facility] 11-30-2024 14:00-0500 Heart rate 72 /min Dr. Randa Joseph DO Work Phone: [facility] 11-30-2024 14:00-0500 Respiratory rate 16 /min Dr. Randa Joseph DO Work Phone: [facility] 11-30-2024 14:00-0500 SaO2% (BldA) [Mass fraction] 98 % Dr. Randa Joseph DO Work Phone: [facility] 11-30-2024 14:00-0500 Systolic blood pressure 128 mm[Hg] Dr. Randa Joseph DO Work Phone: [facility] 11-07-2024 12:45-0500 Body weight 97.[address] Randa Joseph DO Work Phone: [facility] 11-07-2024 12:45-0500 Heart rate 81 /min Dr. Randa Joseph DO Work Phone: [facility] 11-07-2024 12:45-0500 SaO2% (BldA) [Mass fraction] 97 % Dr. Randa Joseph DO Work Phone: [facility] 11-05-2024 17:16-0500 Body temperature 98.2 [degF] Dr. Randa Joseph DO Work Phone: [facility] 11-05-2024 17:16-0500 Diastolic blood pressure 71 mm[Hg] Dr. Randa Joseph DO Work Phone: [facility] 11-05-2024 17:16-0500 Heart rate 66 /min Dr. Randa Joseph DO Work Phone: [facility] 11-05-2024 17:16-0500 Respiratory rate 13 /min Dr. Randa Joseph DO Work Phone: [facility] 11-05-2024 17:16-0500 SaO2% (BldA) [Mass fraction] 98 % Dr. Randa Joseph DO Work Phone: [facility] 11-05-2024 17:16-0500 Systolic blood pressure 142 mm[Hg] Dr. Randa Joseph DO Work Phone: [facility] 11-05-2024 13:08-0500 Body mass index (BMI) [Ratio] 28.2 kg/m2 Dr. Randa Joseph DO Work Phone: [facility] 11-05-2024 13:08-0500 Body weight 94.[address] Randa Joseph DO Work Phone: [facility] 10-13-2024 13:29-0500 Body temperature 97.6 [degF] Dr. Randa Joseph DO Work Phone: [facility] 10-13-2024 13:29-0500 Diastolic blood pressure 59 mm[Hg] Dr. Randa Joseph DO Work Phone: [facility] 10-13-2024 13:29-0500 Heart rate 75 /min Dr. Randa Joseph DO Work Phone: [facility] 10-13-2024 13:29-0500 Respiratory rate 16 /min Dr. Randa Joseph DO Work Phone: [facility] 10-13-2024 13:29-0500 SaO2% (BldA) [Mass fraction] 98 % Dr. Randa Joseph DO Work Phone: [facility] 10-13-2024 13:29-0500 Systolic blood pressure 124 mm[Hg] Dr. Randa Joseph DO Work Phone: [facility] 10-04-2024 14:04-0500 Body mass index (BMI) [Ratio] 28.7 kg/m2 Dr. Randa Joseph DO Work Phone: [facility] 10-04-2024 14:04-0500 Body temperature 97 [degF] Dr. Randa Joseph DO Work Phone: [facility] 10-04-2024 14:04-0500 Body weight 96.[address] Randa Joseph DO Work Phone: [facility] 10-04-2024 14:04-0500 Diastolic blood pressure 62 mm[Hg] Dr. Randa Joseph DO Work Phone: [facility] 10-04-2024 14:04-0500 Heart rate 68 /min Dr. Randa Joseph DO Work Phone: [facility] 10-04-2024 14:04-0500 Respiratory rate 16 /min Dr. Randa Joseph DO Work Phone: [facility] 10-04-2024 14:04-0500 SaO2% (BldA) [Mass fraction] 97 % Dr. Randa Joseph DO Work Phone: [facility] 10-04-2024 14:04-0500 Systolic blood pressure 129 mm[Hg] Dr. Randa Joseph DO Work Phone: [facility] 10-04-2024 08:18-0500 Body mass index (BMI) [Ratio] 28.7 kg/m2 Dr. Randa Joseph DO Work Phone: [facility] 10-04-2024 08:18-0500 Body temperature 97.4 [degF] Dr. Randa Joseph DO Work Phone: [facility] 10-04-2024 08:18-0500 Body weight 96.[address] Randa Joseph DO Work Phone: [facility] 10-04-2024 08:18-0500 Diastolic blood pressure 71 mm[Hg] Dr. Randa Joseph DO Work Phone: [facility] 10-04-2024 08:18-0500 Heart rate 73 /min Dr. Randa Joseph DO Work Phone: [facility] 10-04-2024 08:18-0500 Respiratory rate 20 /min Dr. Randa Joseph DO Work Phone: [facility] 10-04-2024 08:18-0500 SaO2% (BldA) [Mass fraction] 96 % Dr. Randa Joseph DO Work Phone: [facility] 10-04-2024 08:18-0500 Systolic blood pressure 123 mm[Hg] Dr. Randa Joseph DO Work Phone: [facility] 09-12-2024 18:21-0500 Body temperature 96.8 [degF] Dr. Randa Joseph DO Work Phone: [facility] 09-12-2024 18:21-0500 Diastolic blood pressure 89 mm[Hg] Dr. Randa Joseph DO Work Phone: [facility] 09-12-2024 18:21-0500 Heart rate 80 /min Dr. Randa Joseph DO Work Phone: [facility] 09-12-2024 18:21-0500 Respiratory rate 16 /min Dr. Randa Joseph DO Work Phone: [facility] 09-12-2024 18:21-0500 SaO2% (BldA) [Mass fraction] 99 % Dr. Randa Joseph DO Work Phone: [facility] 09-12-2024 18:21-0500 Systolic blood pressure 137 mm[Hg] Dr. Randa Joseph DO Work Phone: [facility] 09-12-2024 17:23-0500 Body mass index (BMI) [Ratio] 29.4 kg/m2 Dr. Randa Joseph DO Work Phone: [facility] 09-12-2024 17:23-0500 Body weight 98.[address] Randa Joseph DO Work Phone: [facility] 08-08-2024 11:19-0400 Body mass index (BMI) [Ratio] 29.06 kg/m2 Jaqui Felton [employer] Work Phone: [facility] 08-08-2024 11:19-0400 Body temperature 97.59 [degF] Jaqui Felton [employer] Work Phone: [facility] 08-08-2024 11:19-0400 Body weight 99.9 kg Jaqui Felton [employer] Work Phone: [facility] 08-08-2024 11:19-0400 Diastolic blood pressure 60 mm[Hg] Jaqui Felton [employer] Work Phone: [facility] 08-08-2024 11:19-0400 Heart rate 76 /min Jaqui Felton [employer] Work Phone: [facility] 08-08-2024 11:19-0400 Respiratory rate 21 /min Jaqui Felton [employer] Work Phone: [facility] 08-08-2024 11:19-0400 SaO2% (BldA) [Mass fraction] 98 % Jaqui Felton [employer] Work Phone: [facility] 08-08-2024 11:19-0400 Systolic blood pressure 100 mm[Hg] Jaqui Felton [employer] Work Phone: [facility] 03-08-2024 14:53-0400 Body mass index (BMI) [Ratio] 28.74 kg/m2 Yael Nair [employer] Work Phone: [facility] 03-08-2024 14:53-0400 Body temperature 98.6 [degF] Yael Nair [employer] Work Phone: [facility] 03-08-2024 14:53-0400 Body weight 98.8 kg Yael Nair [employer] Work Phone: [facility] 03-08-2024 14:53-0400 Diastolic blood pressure 60 mm[Hg] Yael Nair [employer] Work Phone: [facility] 03-08-2024 14:53-0400 Heart rate 70 /min Yael Nair [employer] Work Phone: [facility] 03-08-2024 14:53-0400 Respiratory rate 16 /min Yael Nair [employer] Work Phone: [facility] 03-08-2024 14:53-0400 SaO2% (BldA) [Mass fraction] 96 % Yael Nair [employer] Work Phone: [facility] 03-08-2024 14:53-0400 Systolic blood pressure 120 mm[Hg] Yael Nair [employer] Work Phone: [facility] 02-04-2024 08:35-0400 Body temperature 98.5 [degF] Dr. Randa Joseph Work Phone: [facility] 02-04-2024 08:35-0400 Diastolic blood pressure 67 mm[Hg] Dr. Randa Joseph Work Phone: [facility] 02-04-2024 08:35-0400 Heart rate 65 /min Dr. Randa Joseph Work Phone: [facility] 02-04-2024 08:35-0400 Respiratory rate 20 /min Dr. Randa Joseph Work Phone: [facility] 02-04-2024 08:35-0400 Systolic blood pressure 140 mm[Hg] Dr. Randa Joseph Work Phone: [facility] 01-26-2024 11:11-0400 Body temperature 98.2 [degF] Dr. Randa Joseph Work Phone: [facility] 01-26-2024 11:11-0400 Body weight 99.[address] Randa Joseph Work Phone: [facility] 01-26-2024 11:11-0400 Diastolic blood pressure 62 mm[Hg] Dr. Randa Joseph Work Phone: [facility] 01-26-2024 11:11-0400 Heart rate 73 /min Dr. Randa Joseph Work Phone: [facility] 01-26-2024 11:11-0400 Respiratory rate 16 /min Dr. Randa Joseph Work Phone: [facility] 01-26-2024 11:11-0400 SaO2% (BldA) [Mass fraction] 98 % Dr. Randa Joseph Work Phone: [facility] 01-26-2024 11:11-0400 Systolic blood pressure 119 mm[Hg] Dr. Randa Joseph Work Phone: [facility] 01-14-2024 09:32-0400 Body temperature 96.5 [degF] Dr. Randa Joseph Work Phone: [facility] 01-14-2024 09:32-0400 Diastolic blood pressure 69 mm[Hg] Dr. Randa Joseph Work Phone: [facility] 01-14-2024 09:32-0400 Heart rate 69 /min Dr. Ranad Joseph Work Phone: [facility] 01-14-2024 09:32-0400 Respiratory rate 18 /min Dr. Randa Joseph Work Phone: [facility] 01-14-2024 09:32-0400 Systolic blood pressure 142 mm[Hg] Dr. Randa Joseph Work Phone: [facility] 01-06-2024 07:27-0400 Body height 182.[address] Randa Joseph Work Phone: [facility] 01-06-2024 07:27-0400 Body weight 101.[address] Randa Joseph Work Phone: [facility] 01-05-2024 09:28-0400 Body mass index (BMI) [Ratio] 30.4 kg/m2 Dr. Randa Joseph Work Phone: [facility] 12-31-2023 09:42-0400 Body mass index (BMI) [Ratio] 28.8 kg/m2 Dr. Randa Joseph Work Phone: [facility] 12-31-2023 09:42-0400 Body temperature 96.9 [degF] Dr. Randa Joseph Work Phone: [facility] 12-31-2023 09:42-0400 Diastolic blood pressure 81 mm[Hg] Dr. Randa Joseph Work Phone: [facility] 12-31-2023 09:42-0400 Heart rate 67 /min Dr. Rnada Joseph Work Phone: [facility] 12-31-2023 09:42-0400 Respiratory rate 18 /min Dr. Randa Joseph Work Phone: [facility] 12-31-2023 09:42-0400 Systolic blood pressure 141 mm[Hg] Dr. Randa Joseph Work Phone: [facility] 12-18-2023 13:41-0500 Body height 182.[address] Randa Joseph Work Phone: [facility] 12-18-2023 13:41-0500 Body mass index (BMI) [Ratio] 29.5 kg/m2 Dr. Randa Joseph Work Phone: [facility] 12-18-2023 13:41-0500 Body temperature 96.8 [degF] Dr. Randa Joseph Work Phone: [facility] 12-18-2023 13:41-0500 Body weight 98.[address] Randa Joseph Work Phone: [facility] 12-18-2023 13:41-0500 Diastolic blood pressure 74 mm[Hg] Dr. Randa Joseph Work Phone: [facility] 12-18-2023 13:41-0500 Heart rate 78 /min Dr. Randa Joseph Work Phone: [facility] 12-18-2023 13:41-0500 Respiratory rate 16 /min Dr. Randa Joseph Work Phone: [facility] 12-18-2023 13:41-0500 SaO2% (BldA) [Mass fraction] 98 % Dr. Randa Joseph Work Phone: [facility] 12-18-2023 13:41-0500 Systolic blood pressure 142 mm[Hg] Dr. Randa Joseph Work Phone: [facility] 12-18-2023 00:28-0500 Body weight 99.[address] Randa Joseph Work Phone: [facility] 12-17-2023 09:21-0500 Body mass index (BMI) [Ratio] 28.8 kg/m2 Dr. Randa Joseph Work Phone: [facility] 12-17-2023 09:21-0500 Body temperature 97.1 [degF] Dr. Randa Joseph Work Phone: [facility] 12-17-2023 09:21-0500 Diastolic blood pressure 73 mm[Hg] Dr. Randa Joseph Work Phone: [facility] 12-17-2023 09:21-0500 Heart rate 71 /min Dr. Randa Joseph Work Phone: [facility] 12-17-2023 09:21-0500 Respiratory rate 18 /min Dr. Randa Joseph Work Phone: [facility] 12-17-2023 09:21-0500 Systolic blood pressure 143 mm[Hg] Dr. Randa Joseph Work Phone: [facility] 11-25-2023 13:33-0500 Body temperature 98.2 [degF] Dr. Randa Joseph Work Phone: [facility] 11-25-2023 13:33-0500 Body weight 101.[address] Randa Joseph Work Phone: [facility] 11-25-2023 13:33-0500 Diastolic blood pressure 69 mm[Hg] Dr. Randa Joseph Work Phone: [facility] 11-25-2023 13:33-0500 Heart rate 77 /min Dr. Randa Joseph Work Phone: [facility] 11-25-2023 13:33-0500 Respiratory rate 16 /min Dr. Randa Joseph Work Phone: [facility] 11-25-2023 13:33-0500 SaO2% (BldA) [Mass fraction] 97 % Dr. Randa Joseph Work Phone: [facility] 11-25-2023 13:33-0500 Systolic blood pressure 127 mm[Hg] Dr. Randa Joseph Work Phone: [facility] 11-19-2023 00:29-0500 Body weight 99.[address] Randa Joseph Work Phone: [facility] 11-17-2023 09:19-0500 Body mass index (BMI) [Ratio] 28.8 kg/m2 Dr. Randa Joseph Work Phone: [facility] 11-17-2023 09:19-0500 Body temperature 97 [degF] Dr. Randa Joseph Work Phone: [facility] 11-17-2023 09:19-0500 Diastolic blood pressure 94 mm[Hg] Dr. Randa Joseph Work Phone: [facility] 11-17-2023 09:19-0500 Heart rate 74 /min Dr. Randa Joseph Work Phone: [facility] 11-17-2023 09:19-0500 Respiratory rate 20 /min Dr. Randa Joseph Work Phone: [facility] 11-17-2023 09:19-0500 Systolic blood pressure 146 mm[Hg] Dr. Randa Joseph Work Phone: [facility] 11-06-2023 15:27-0500 Body temperature 97.2 [degF] Dr. Randa Joseph Work Phone: [facility] 11-06-2023 15:27-0500 Diastolic blood pressure 72 mm[Hg] Dr. Randa Joseph Work Phone: [facility] 11-06-2023 15:27-0500 Heart rate 63 /min Dr. Randa Joseph Work Phone: [facility] 11-06-2023 15:27-0500 Respiratory rate 16 /min Dr. Randa Joseph Work Phone: [facility] 11-06-2023 15:27-0500 Systolic blood pressure 137 mm[Hg] Dr. Randa Joseph Work Phone: [facility] 11-06-2023 14:28-0500 Body height 182.[address] Randa Joseph Work Phone: [facility] 11-06-2023 14:28-0500 SaO2% (BldA) [Mass fraction] 98 % Dr. Randa Joseph Work Phone: [facility] 11-06-2023 12:51-0500 Body mass index (BMI) [Ratio] 30.5 kg/m2 Dr. Randa Joseph Work Phone: [facility] 11-06-2023 12:51-0500 Body temperature 96.5 [degF] Dr. Randa Joseph Work Phone: [facility] 11-06-2023 12:51-0500 Body weight 102.[address] Randa Joseph Work Phone: [facility] 11-06-2023 12:51-0500 Diastolic blood pressure 63 mm[Hg] Dr. Randa Joseph Work Phone: [facility] 11-06-2023 12:51-0500 Heart rate 71 /min Dr. Randa Joseph Work Phone: [facility] 11-06-2023 12:51-0500 Respiratory rate 18 /min Dr. Randa Joseph Work Phone: [facility] 11-06-2023 12:51-0500 SaO2% (BldA) [Mass fraction] 97 % Dr. Randa Joseph Work Phone: [facility] 11-06-2023 12:51-0500 Systolic blood pressure 142 mm[Hg] Dr. Randa Joseph Work Phone: [facility] 11-05-2023 09:06-0500 Body mass index (BMI) [Ratio] 28.8 kg/m2 Dr. Randa Joseph Work Phone: [facility] 11-05-2023 09:06-0500 Diastolic blood pressure 78 mm[Hg] Dr. Randa Joseph Work Phone: [facility] 11-05-2023 09:06-0500 Heart rate 70 /min Dr. Randa Joseph Work Phone: [facility] 11-05-2023 09:06-0500 Respiratory rate 18 /min Dr. Randa Joseph Work Phone: [facility] 11-05-2023 09:06-0500 Systolic blood pressure 150 mm[Hg] Dr. Randa Joseph Work Phone: [facility] 10-29-2023 09:40-0500 Body temperature 96.1 [degF] Dr. Randa Joseph Work Phone: [facility] 10-22-2023 10:55-0500 Body mass index (BMI) [Ratio] 28.8 kg/m2 Dr. Randa Joseph Work Phone: [facility] 10-22-2023 10:55-0500 Body temperature 96 [degF] Dr. Randa Joseph Work Phone: [facility] 10-22-2023 10:55-0500 Diastolic blood pressure 81 mm[Hg] Dr. Randa Joseph Work Phone: [facility] 10-22-2023 10:55-0500 Heart rate 101 /min Dr. Randa Joseph Work Phone: [facility] 10-22-2023 10:55-0500 Respiratory rate 18 /min Dr. Randa Joseph Work Phone: [facility] 10-22-2023 10:55-0500 Systolic blood pressure 110 mm[Hg] Dr. Randa Joseph Work Phone: [facility] 10-19-2023 00:47-0500 Body weight 99.[address] Randa Joseph Work Phone: [facility] 10-15-2023 14:59-0500 Body height 185.[address] Randa Joseph Work Phone: [facility] 10-15-2023 14:59-0500 Body temperature 96.6 [degF] Dr. Randa Joseph Work Phone: [facility] 10-15-2023 14:59-0500 Diastolic blood pressure 75 mm[Hg] Dr. Randa Joseph Work Phone: [facility] 10-15-2023 14:59-0500 Heart rate 69 /min Dr. Randa Joseph Work Phone: [facility] 10-15-2023 14:59-0500 Respiratory rate 16 /min Dr. Randa Joseph Work Phone: [facility] 10-15-2023 14:59-0500 Systolic blood pressure 140 mm[Hg] Dr. Randa Joseph Work Phone: [facility] 10-15-2023 09:25-0500 Body mass index (BMI) [Ratio] 28.8 kg/m2 Dr. Randa Joseph Work Phone: [facility] 10-15-2023 09:25-0500 Body temperature 96.2 [degF] Dr. Randa Joseph Work Phone: [facility] 10-15-2023 09:25-0500 Diastolic blood pressure 78 mm[Hg] Dr. Randa Joseph Work Phone: [facility] 10-15-2023 09:25-0500 Heart rate 72 /min Dr. Randa Joseph Work Phone: [facility] 10-15-2023 09:25-0500 Respiratory rate 18 /min Dr. Randa Joseph Work Phone: [facility] 10-15-2023 09:25-0500 Systolic blood pressure 149 mm[Hg] Dr. Randa Joseph Work Phone: [facility] 10-08-2023 12:54-0500 Body mass index (BMI) [Ratio] 28.8 kg/m2 Dr. Randa Joseph Work Phone: [facility] 10-08-2023 12:54-0500 Body temperature 96 [degF] Dr. Randa Joseph Work Phone: [facility] 10-08-2023 12:54-0500 Diastolic blood pressure 71 mm[Hg] Dr. Randa Joseph Work Phone: [facility] 10-08-2023 12:54-0500 Heart rate 64 /min Dr. Randa Joseph Work Phone: [facility] 10-08-2023 12:54-0500 Respiratory rate 18 /min Dr. Randa Joseph Work Phone: [facility] 10-08-2023 12:54-0500 Systolic blood pressure 155 mm[Hg] Dr. Randa Joseph Work Phone: [facility] 09-22-2023 06:19-0500 Body height 185.[address] Randa Joseph Work Phone: [facility] 09-22-2023 06:19-0500 Body mass index (BMI) [Ratio] 29 kg/m2 Dr. Randa Joseph Work Phone: [facility] 09-22-2023 06:19-0500 Body temperature 97.4 [degF] Dr. Randa Joseph Work Phone: [facility] 09-22-2023 06:19-0500 Body weight 99.[address] Randa Joseph Work Phone: [facility] 09-22-2023 06:19-0500 Diastolic blood pressure 72 mm[Hg] Dr. Randa Joseph Work Phone: [facility] 09-22-2023 06:19-0500 Heart rate 75 /min Dr. Randa Joseph Work Phone: [facility] 09-22-2023 06:19-0500 Respiratory rate 20 /min Dr. Randa Joseph Work Phone: [facility] 09-22-2023 06:19-0500 SaO2% (BldA) [Mass fraction] 98 % Dr. Randa Joseph Work Phone: [facility] 09-22-2023 06:19-0500 Systolic blood pressure 160 mm[Hg] Dr. Randa Joseph Work Phone: [facility] 09-18-2023 00:50-0500 Body weight 99.[address] Randa Joseph Work Phone: [facility] 09-17-2023 08:21-0500 Body mass index (BMI) [Ratio] 28.8 kg/m2 Dr. Randa Joseph Work Phone: [facility] 09-17-2023 08:21-0500 Body temperature 97.6 [degF] Dr. Randa Joseph Work Phone: [facility] 09-17-2023 08:21-0500 Diastolic blood pressure 78 mm[Hg] Dr. Randa Joseph Work Phone: [facility] 09-17-2023 08:21-0500 Heart rate 77 /min Dr. Randa Joseph Work Phone: [facility] 09-17-2023 08:21-0500 Respiratory rate 18 /min Dr. Randa Joseph Work Phone: [facility] 09-17-2023 08:21-0500 Systolic blood pressure 138 mm[Hg] Dr. Randa Joseph Work Phone: [facility] 08-27-2023 09:13-0500 Body height 185.[address] Randa Joseph Work Phone: [facility] 08-27-2023 09:13-0500 Body weight 99.[address] Randa Joseph Work Phone: [facility] 08-24-2023 15:03-0500 Body height 182.88 cm [facility] 08-24-2023 15:03-0500 Body temperature 96.6 [degF] [facility] 08-24-2023 15:03-0500 Diastolic blood pressure 78 mm[Hg] [facility] 08-24-2023 15:03-0500 Heart rate 75 /min [facility] 08-24-2023 15:03-0500 Respiratory rate 18 /min [facility] 08-24-2023 15:03-0500 SaO2% (BldA) [Mass fraction] 98 % [facility] 08-24-2023 15:03-0500 Systolic blood pressure 134 mm[Hg] [facility] 06-30-2023 12:27-0400 Body mass index (BMI) [Ratio] 29.8 kg/m2 [facility] 06-30-2023 12:27-0400 Body temperature 98 [degF] [facility] 06-30-2023 12:27-0400 Body weight 99.79 kg [facility] 06-30-2023 12:27-0400 Diastolic blood pressure 75 mm[Hg] [facility] 06-30-2023 12:27-0400 Heart rate 71 /min [facility] 06-30-2023 12:27-0400 Respiratory rate 16 /min [facility] 06-30-2023 12:27-0400 SaO2% (BldA) [Mass fraction] 98 % [facility] 06-30-2023 12:27-0400 Systolic blood pressure 131 mm[Hg] [facility] 04-23-2023 10:10-0400 Body height 182.88 cm [facility] 04-23-2023 10:10-0400 Body temperature 96.9 [degF] [facility] 04-23-2023 10:10-0400 Diastolic blood pressure 67 mm[Hg] [facility] 04-23-2023 10:10-0400 Heart rate 66 /min [facility] 04-23-2023 10:10-0400 Respiratory rate 16 /min [facility] 04-23-2023 10:10-0400 SaO2% (BldA) [Mass fraction] 99 % [facility] 04-23-2023 10:10-0400 Systolic blood pressure 142 mm[Hg] [facility] 04-14-2023 10:49-0400 Body height 182.88 cm [facility] 04-14-2023 10:49-0400 Body mass index (BMI) [Ratio] 30.6 kg/m2 [facility] 04-14-2023 10:49-0400 Body temperature 96.1 [degF] [facility] 04-14-2023 10:49-0400 Body weight 102.51 kg [facility] 04-14-2023 10:49-0400 Diastolic blood pressure 67 mm[Hg] [facility] 04-14-2023 10:49-0400 Heart rate 75 /min [facility] 04-14-2023 10:49-0400 Respiratory rate 16 /min [facility] 04-14-2023 10:49-0400 SaO2% (BldA) [Mass fraction] 99 % [facility] 04-14-2023 10:49-0400 Systolic blood pressure 131 mm[Hg] [facility] 02-20-2023 11:21-0400 Body height 182.88 cm [facility] 02-20-2023 11:21-0400 Body mass index (BMI) [Ratio] 30.5 kg/m2 [facility] 02-20-2023 11:21-0400 Body temperature 97.6 [degF] [facility] 02-20-2023 11:21-0400 Body weight 102.05 kg [facility] 02-20-2023 11:21-0400 Diastolic blood pressure 65 mm[Hg] [facility] 02-20-2023 11:21-0400 Heart rate 79 /min [facility] 02-20-2023 11:21-0400 Respiratory rate 16 /min [facility] 02-20-2023 11:21-0400 SaO2% (BldA) [Mass fraction] 95 % [facility] 02-20-2023 11:21-0400 Systolic blood pressure 132 mm[Hg] [facility] 02-14-2023 10:46-0400 Body temperature 97 [degF] Renee Callow [employer] Work Phone: [facility] 02-14-2023 10:46-0400 Body weight 102.97 kg Renee Callow [employer] Work Phone: [facility] 02-14-2023 10:46-0400 Diastolic blood pressure 76 mm[Hg] Renee Callow [employer] Work Phone: [facility] 02-14-2023 10:46-0400 Heart rate 60 /min Renee Callow [employer] Work Phone: [facility] 02-14-2023 10:46-0400 Respiratory rate 16 /min Renee Callow [employer] Work Phone: [facility] 02-14-2023 10:46-0400 SaO2% (BldA) [Mass fraction] 98 % Renee Conde [employer] Work Phone: [facility] 02-14-2023 10:46-0400 Systolic blood pressure 128 mm[Hg] Renee Conde [employer] Work Phone: [facility] 12-26-2022 14:38-0500 Body height 182.[address] Peter Finney Work Phone: [facility] 12-26-2022 14:38-0500 Body mass index (BMI) [Ratio] 31.4 kg/m2 Dr. Peter Finney Work Phone: [facility] 12-26-2022 14:38-0500 Body temperature 97.3 [degF] Dr. Peter Finney Work Phone: [facility] 12-26-2022 14:38-0500 Body weight 105.[address] Peter Finney Work Phone: [facility] 12-26-2022 14:38-0500 Diastolic blood pressure 60 mm[Hg] Dr. Peter Finney Work Phone: [facility] 12-26-2022 14:38-0500 Heart rate 77 /min Dr. Peter Finney Work Phone: [facility] 12-26-2022 14:38-0500 Respiratory rate 16 /min Dr. Peter Finney Work Phone: [facility] 12-26-2022 14:38-0500 SaO2% (BldA) [Mass fraction] 99 % Dr. Peter Finney Work Phone: [facility] 12-26-2022 14:38-0500 Systolic blood pressure 110 mm[Hg] Dr. Peter Finney Work Phone: [facility] 10-24-2022 09:55-0500 Body height 182.[address] Peter Finney Work Phone: [facility] 10-24-2022 09:55-0500 Body temperature 97.7 [degF] Dr. Peter Finney Work Phone: [facility] 10-24-2022 09:55-0500 Diastolic blood pressure 79 mm[Hg] Dr. Peter Finney Work Phone: [facility] 10-24-2022 09:55-0500 Heart rate 82 /min Dr. Peter Finney Work Phone: [facility] 10-24-2022 09:55-0500 Respiratory rate 16 /min Dr. Peter Finney Work Phone: [facility] 10-24-2022 09:55-0500 SaO2% (BldA) [Mass fraction] 97 % Dr. Peter Finney Work Phone: [facility] 10-24-2022 09:55-0500 Systolic blood pressure 150 mm[Hg] Dr. Peter Finney Work Phone: [facility] 10-20-2022 16:13-0500 Body temperature 99.81 [degF] Jaqui Jose Francisco [employer] Work Phone: [facility] 10-20-2022 16:13-0500 Body weight 108.41 kg Jaqui King [employer] Work Phone: [facility] 10-20-2022 16:13-0500 Diastolic blood pressure 70 mm[Hg] Jaqui Jose Francisco [employer] Work Phone: [facility] 10-20-2022 16:13-0500 Heart rate 86 /min Jaqui Jose Francisco [employer] Work Phone: [facility] 10-20-2022 16:13-0500 Respiratory rate 16 /min Jaqui Jose Francisco [employer] Work Phone: [facility] 10-20-2022 16:13-0500 SaO2% (BldA) [Mass fraction] 96 % Jaqui Jose Francisco [employer] Work Phone: [facility] 10-20-2022 16:13-0500 Systolic blood pressure 122 mm[Hg] Jaqui Felton [employer] Work Phone: [facility] 10-14-2022 14:24-0500 Diastolic blood pressure 65 mm[Hg] Dr. Peter Finney Work Phone: [facility] 10-14-2022 14:24-0500 Heart rate 65 /min Dr. Peter Finney Work Phone: [facility] 10-14-2022 14:24-0500 SaO2% (BldA) [Mass fraction] 99 % Dr. Peter Finney Work Phone: [facility] 10-14-2022 14:24-0500 Systolic blood pressure 147 mm[Hg] Dr. Peter Finney Work Phone: [facility] 09-22-2022 07:36-0500 Body height 182.[address] Peter Finney Work Phone: [facility] Work Phone: 09-22-2022 07:36-0500 Body mass index (BMI) [Ratio] 33 kg/m2 Dr. Peter Finney Work Phone: [facility] 09-22-2022 07:36-0500 Body temperature 94.4 [degF] Dr. Peter Finney Work Phone: [facility] 09-22-2022 07:36-0500 Body weight 110.[address] Peter Finney Work Phone: [facility] 09-22-2022 07:36-0500 Diastolic blood pressure 79 mm[Hg] Dr. Peter Finney Work Phone: [facility] 09-22-2022 07:36-0500 Heart rate 81 /min Dr. Peter Finney Work Phone: [facility] 09-22-2022 07:36-0500 Respiratory rate 18 /min Dr. Peter Finney Work Phone: [facility] 09-22-2022 07:36-0500 SaO2% (BldA) [Mass fraction] 97 % Dr. Peter Finney Work Phone: [facility] 09-22-2022 07:36-0500 Systolic blood pressure 150 mm[Hg] Dr. Peter Finney Work Phone: [facility] 09-17-2022 09:45-0500 Body height 185.4 cm Teagan B[place]more [place] PA-C Work Phone: [facility] 09-17-2022 09:45-0500 Body temperature 97.3 [degF] Teagan B[place]more [place] PA-C Work Phone: [facility] 09-17-2022 09:45-0500 Body weight 110.95 kg Teagan [place] PA-C Work Phone: [facility] 09-17-2022 09:45-0500 Diastolic blood pressure 74 mm[Hg] Teagan Karmen PA-C Work Phone: [facility] 09-17-2022 09:45-0500 Heart rate 72 /min Teagan [place] PA-C Work Phone: [facility] 09-17-2022 09:45-0500 SaO2% (BldA) [Mass fraction] 98 % Teagan B[place] PA-C Work Phone: [facility] 09-17-2022 09:45-0500 Systolic blood pressure 138 mm[Hg] Teagan B[place]more [place] PA-C Work Phone: [facility] 08-19-2022 14:56-0400 Body height 182.88 cm [facility] Work Phone: 08-19-2022 14:56-0400 Body mass index (BMI) [Ratio] 33.7 kg/m2 [facility] 08-19-2022 14:56-0400 Body temperature 97.4 [degF] [facility] 08-19-2022 14:56-0400 Body weight 112.94 kg [facility] 08-19-2022 14:56-0400 Diastolic blood pressure 64 mm[Hg] [facility] 08-19-2022 14:56-0400 Heart rate 69 /min [facility] 08-19-2022 14:56-0400 Respiratory rate 14 /min [facility] 08-19-2022 14:56-0400 SaO2% (BldA) [Mass fraction] 99 % [facility] 08-19-2022 14:56-0400 Systolic blood pressure 159 mm[Hg] [facility] 08-04-2022 14:15-0400 Body height 182.9 cm Maxx Mayer MD Work Phone: [facility] 08-04-2022 14:15-0400 Body temperature 97.9 [degF] Maxx Mayer MD Work Phone: [facility] 08-04-2022 14:15-0400 Body weight 112.95 kg Maxx Mayer MD Work Phone: [facility] 08-04-2022 14:15-0400 Diastolic blood pressure 70 mm[Hg] Maxx Mayer MD Work Phone: [facility] 08-04-2022 14:15-0400 Heart rate 80 /min Maxx Mayer MD Work Phone: [facility] 08-04-2022 14:15-0400 Respiratory rate 16 /min Maxx Mayer MD Work Phone: [facility] 08-04-2022 14:15-0400 SaO2% (BldA) [Mass fraction] 95 % Maxx Mayer MD Work Phone: [facility] 08-04-2022 14:15-0400 Systolic blood pressure 130 mm[Hg] Maxx Mayer MD Work Phone: [facility] 06-24-2022 14:00-0400 Body height 182.[address] Peter Finney Work Phone: [facility] Work Phone: 06-24-2022 14:00-0400 Body mass index (BMI) [Ratio] 33.6 kg/m2 Dr. Peter Finney Work Phone: [facility] Work Phone: 06-24-2022 14:00-0400 Body temperature 97.8 [degF] Dr. Peter Finney Work Phone: [facility] Work Phone: 06-24-2022 14:00-0400 Body weight 112.[address] Peter Finney Work Phone: [facility] Work Phone: 06-24-2022 14:00-0400 Diastolic blood pressure 65 mm[Hg] Dr. Peter Finney Work Phone: [facility] Work Phone: 06-24-2022 14:00-0400 Heart rate 77 /min Dr. Peter Finney Work Phone: [facility] Work Phone: 06-24-2022 14:00-0400 Respiratory rate 16 /min Dr. Peter Finney Work Phone: [facility] Work Phone: 06-24-2022 14:00-0400 SaO2% (BldA) [Mass fraction] 97 % Dr. Peter Finney Work Phone: [facility] Work Phone: 06-24-2022 14:00-0400 Systolic blood pressure 141 mm[Hg] Dr. Peter Finney Work Phone: [facility] Work Phone: 04-29-2022 14:57-0400 Body height 182.[address] Peter Finney Work Phone: [facility] Work Phone: 04-29-2022 14:57-0400 Body mass index (BMI) [Ratio] 34.3 kg/m2 Dr. Peter Finney Work Phone: [facility] Work Phone: 04-29-2022 14:57-0400 Body temperature 97.4 [degF] Dr. Peter Finney Work Phone: [facility] Work Phone: 04-29-2022 14:57-0400 Body weight 114.[address] Peter Finney Work Phone: [facility] Work Phone: 04-29-2022 14:57-0400 Diastolic blood pressure 82 mm[Hg] Dr. Peter Finney Work Phone: [facility] Work Phone: 04-29-2022 14:57-0400 Heart rate 81 /min Dr. Peter Finney Work Phone: [facility] Work Phone: 04-29-2022 14:57-0400 Respiratory rate 16 /min Dr. Peter Finney Work Phone: [facility] Work Phone: 04-29-2022 14:57-0400 SaO2% (BldA) [Mass fraction] 95 % Dr. Peter Finney Work Phone: [facility] Work Phone: 04-29-2022 14:57-0400 Systolic blood pressure 124 mm[Hg] Dr. Peter Finney Work Phone: [facility] Work Phone: 03-25-2022 07:44-0400 Body mass index (BMI) [Ratio] 34.3 kg/m2 Dr. Peter Finney Work Phone: [facility] Work Phone: 03-25-2022 07:44-0400 Body temperature 97.4 [degF] Dr. Peter Finney Work Phone: [facility] Work Phone: 03-25-2022 07:44-0400 Body weight 114.[address] Peter Finney Work Phone: [facility] Work Phone: 03-25-2022 07:44-0400 Diastolic blood pressure 63 mm[Hg] Dr. Peter Finney Work Phone: [facility] Work Phone: 03-25-2022 07:44-0400 Heart rate 75 /min Dr. Peter Finney Work Phone: [facility] Work Phone: 03-25-2022 07:44-0400 Respiratory rate 16 /min Dr. Peter Finney Work Phone: [facility] Work Phone: 03-25-2022 07:44-0400 SaO2% (BldA) [Mass fraction] 97 % Dr. Peter Finney Work Phone: [facility] Work Phone: 03-25-2022 07:44-0400 Systolic blood pressure 119 mm[Hg] Dr. Peter Finney Work Phone: [facility] Work Phone: 03-25-2022 07:44-0400 Body height 182.[address] Peter Finney Work Phone: [facility] Work Phone: 03-25-2022 07:44-0400 Body mass index (BMI) [Ratio] 34.3 kg/m2 Dr. Peter Finney Work Phone: [facility] Work Phone: 03-25-2022 07:44-0400 Body temperature 97.4 [degF] Dr. Peter Finney Work Phone: [facility] Work Phone: 03-25-2022 07:44-0400 Body weight 114.[address] Peter Finney Work Phone: [facility] Work Phone: 03-25-2022 07:44-0400 Diastolic blood pressure 63 mm[Hg] Dr. Peter Finney Work Phone: [facility] Work Phone: 03-25-2022 07:44-0400 Heart rate 75 /min Dr. Peter Finney Work Phone: [facility] Work Phone: 03-25-2022 07:44-0400 Respiratory rate 16 /min Dr. Peter Finney Work Phone: [facility] Work Phone: 03-25-2022 07:44-0400 SaO2% (BldA) [Mass fraction] 97 % Dr. Peter Finney Work Phone: [facility] Work Phone: 03-25-2022 07:44-0400 Systolic blood pressure 119 mm[Hg] Dr. Peter Finney Work Phone: [facility] Work Phone: 03-21-2022 08:33-0400 Body mass index (BMI) [Ratio] 33.3 kg/m2 Dr. Peter Finney Work Phone: [facility] Work Phone: 03-21-2022 08:33-0400 Body temperature 97.5 [degF] Dr. Peter Finney Work Phone: [facility] Work Phone: 03-21-2022 08:33-0400 Body weight 114.[address] Peter Finney Work Phone: [facility] Work Phone: 03-21-2022 08:33-0400 Diastolic blood pressure 71 mm[Hg] Dr. Peter Finney Work Phone: [facility] Work Phone: 03-21-2022 08:33-0400 Heart rate 73 /min Dr. Peter Finney Work Phone: [facility] Work Phone: 03-21-2022 08:33-0400 Respiratory rate 18 /min Dr. Peter Finney Work Phone: [facility] Work Phone: 03-21-2022 08:33-0400 SaO2% (BldA) [Mass fraction] 98 % Dr. Peter Finney Work Phone: [facility] Work Phone: 03-21-2022 08:33-0400 Systolic blood pressure 136 mm[Hg] Dr. Peter Finney Work Phone: [facility] Work Phone: 03-04-2022 14:38-0400 Body height 182.88 cm [facility] Work Phone: 03-04-2022 14:38-0400 Body mass index (BMI) [Ratio] 34.8 kg/m2 [facility] Work Phone: 03-04-2022 14:38-0400 Body temperature 97.5 [degF] [facility] Work Phone: 03-04-2022 14:38-0400 Body weight 116.57 kg [facility] Work Phone: 03-04-2022 14:38-0400 Diastolic blood pressure 68 mm[Hg] [facility] Work Phone: 03-04-2022 14:38-0400 Heart rate 71 /min [facility] Work Phone: 03-04-2022 14:38-0400 Respiratory rate 16 /min [facility] Work Phone: 03-04-2022 14:38-0400 SaO2% (BldA) [Mass fraction] 98 % [facility] Work Phone: 03-04-2022 14:38-0400 Systolic blood pressure 140 mm[Hg] [facility] Work Phone: 02-19-2022 08:18-0400 Body height 185.42 cm [facility] Work Phone: 01-07-2022 14:27-0400 Body height 185.[address] Peter Finney Work Phone: [facility] Work Phone: 01-07-2022 14:27-0400 Body mass index (BMI) [Ratio] 33.6 kg/m2 Dr. Peter Finney Work Phone: [facility] Work Phone: 01-07-2022 14:27-0400 Body temperature 97 [degF] Dr. Peter Finney Work Phone: [facility] Work Phone: 01-07-2022 14:27-0400 Body weight 115.[address] Peter Finney Work Phone: [facility] Work Phone: 01-07-2022 14:27-0400 Diastolic blood pressure 70 mm[Hg] Dr. Peter Finney Work Phone: [facility] Work Phone: 01-07-2022 14:27-0400 Heart rate 71 /min Dr. Peter Finney Work Phone: [facility] Work Phone: 01-07-2022 14:27-0400 Respiratory rate 12 /min Dr. Peter Finney Work Phone: [facility] Work Phone: 01-07-2022 14:27-0400 SaO2% (BldA) [Mass fraction] 98 % Dr. Peter Finney Work Phone: [facility] Work Phone: 01-07-2022 14:27-0400 Systolic blood pressure 149 mm[Hg] Dr. Peter Finney Work Phone: [facility] Work Phone: 11-12-2021 13:49-0500 Body temperature 97.2 [degF] Dr. Peter Finney Work Phone: [facility] Work Phone: 11-12-2021 13:49-0500 Diastolic blood pressure 83 mm[Hg] Dr. Peter Finney Work Phone: [facility] Work Phone: 11-12-2021 13:49-0500 Heart rate 74 /min Dr. Peter Finney Work Phone: [facility] Work Phone: 11-12-2021 13:49-0500 Respiratory rate 18 /min Dr. Peter Finney Work Phone: [facility] Work Phone: 11-12-2021 13:49-0500 SaO2% (BldA) [Mass fraction] 97 % Dr. Peter Finney Work Phone: [facility] Work Phone: 11-12-2021 13:49-0500 Systolic blood pressure 165 mm[Hg] Dr. Peter Finney Work Phone: [facility] Work Phone: 10-01-2021 11:05-0500 Body temperature 97.7 [degF] Dr. Peter Finney Work Phone: [facility] Work Phone: 10-01-2021 11:05-0500 Diastolic blood pressure 78 mm[Hg] Dr. Peter Finney Work Phone: [facility] Work Phone: 10-01-2021 11:05-0500 Heart rate 81 /min Dr. Peter Finney Work Phone: [facility] Work Phone: 10-01-2021 11:05-0500 Respiratory rate 16 /min Dr. Peter Finney Work Phone: [facility] Work Phone: 10-01-2021 11:05-0500 SaO2% (BldA) [Mass fraction] 98 % Dr. Peter Finney Work Phone: [facility] Work Phone: 10-01-2021 11:05-0500 Systolic blood pressure 120 mm[Hg] Dr. Peter Finney Work Phone: [facility] Work Phone: 09-25-2021 06:02-0500 Body mass index (BMI) [Ratio] 35.3 kg/m2 Dr. Peter Finney Work Phone: [facility] Work Phone: 09-25-2021 06:02-0500 Body temperature 97.3 [degF] Dr. Peter Finney Work Phone: [facility] Work Phone: 09-25-2021 06:02-0500 Body weight 121.[address] Peter Finney Work Phone: [facility] Work Phone: 09-25-2021 06:02-0500 Diastolic blood pressure 72 mm[Hg] Dr. Peter Finney Work Phone: [facility] Work Phone: 09-25-2021 06:02-0500 Heart rate 79 /min Dr. Peter Finney Work Phone: [facility] Work Phone: 09-25-2021 06:02-0500 Respiratory rate 18 /min Dr. Peter Finney Work Phone: [facility] Work Phone: 09-25-2021 06:02-0500 SaO2% (BldA) [Mass fraction] 97 % Dr. Peter Finney Work Phone: [facility] Work Phone: 09-25-2021 06:02-0500 Systolic blood pressure 137 mm[Hg] Dr. Peter Finney Work Phone: [facility] Work Phone: 09-20-2021 07:57-0500 Body mass index (BMI) [Ratio] 35.2 kg/m2 Dr. Peter Finney Work Phone: [facility] Work Phone: 09-20-2021 07:57-0500 Body temperature 96.4 [degF] Dr. Peter Finney Work Phone: [facility] Work Phone: 09-20-2021 07:57-0500 Body weight 121.[address] Peter Finney Work Phone: [facility] Work Phone: 09-20-2021 07:57-0500 Diastolic blood pressure 72 mm[Hg] Dr. Peter Finney Work Phone: [facility] Work Phone: 09-20-2021 07:57-0500 Heart rate 71 /min Dr. Peter Finney Work Phone: [facility] Work Phone: 09-20-2021 07:57-0500 Respiratory rate 16 /min Dr. Peter Finney Work Phone: [facility] Work Phone: 09-20-2021 07:57-0500 SaO2% (BldA) [Mass fraction] 99 % Dr. Peter Finney Work Phone: [facility] Work Phone: 09-20-2021 07:57-0500 Systolic blood pressure 150 mm[Hg] Dr. Peter Finney Work Phone: [facility] Work Phone: 09-17-2021 13:20-0500 Body mass index (BMI) [Ratio] 34.2 kg/m2 Dr. Peter Finney Work Phone: [facility] Work Phone: 09-17-2021 13:20-0500 Body temperature 96.9 [degF] Dr. Peter Finney Work Phone: [facility] Work Phone: 09-17-2021 13:20-0500 Body weight 117.[address] Peter Finney Work Phone: [facility] Work Phone: 09-17-2021 13:20-0500 Diastolic blood pressure 71 mm[Hg] Dr. Peter Finney Work Phone: [facility] Work Phone: 09-17-2021 13:20-0500 Heart rate 86 /min Dr. Peter Finney Work Phone: [facility] Work Phone: 09-17-2021 13:20-0500 Respiratory rate 16 /min Dr. Peter Finney Work Phone: [facility] Work Phone: 09-17-2021 13:20-0500 SaO2% (BldA) [Mass fraction] 99 % Dr. Peter Finney Work Phone: [facility] Work Phone: 09-17-2021 13:20-0500 Systolic blood pressure 123 mm[Hg] Dr. Peter Finney Work Phone: [facility] Work Phone: 08-07-2017 13:26-0400 BMI (Body Mass Index) 32.74 kg/m2 Leelee De Leon LPN [facility] No w Clinic Work Phone: 08-07-2017 13:26-0400 Body Temperature 97.7 [degF] Leelee De Leon LPN [facility] Now Cli christine Work Phone: 08-07-2017 13:26-0400 BP Diastolic 78 mm[Hg] Leelee De Leon LPN [facility] Now [facility] ic Work Phone: 08-07-2017 13:26-0400 BP Systolic 122 mm[Hg] Leelee De Leon LPN [facility] Now [facility] Work Phone: 08-07-2017 13:26-0400 Height 187.96 cm Leelee De Leon LPN [facility] Now Clin ic Work Phone: 08-07-2017 13:26-0400 Pulse (Heart Rate) 87 /min Leelee De Leon LPN [facility] Now C linic Work Phone: 08-07-2017 13:-0400 Respiratory Rate 16 /min Leelee De Leon LPN [facility] Now [facility]ine Work Phone: 08-07-2017 13:-0400 Weight 115.67 kg Leelee De Leon LPN [facility] Now Clin ic Work Phone: Encounters Encounter Date Encounter Type Care Provider Facility Start: 09-05-2025 ambulatory Neris Tovar TEA LEAF READER Fac ility:[facility] Start: 08-29-2025 ambulatory [facility] Facility: [facility] Start: 08-18-2025 End: 08-18-2025 ambulatory [facility] Facility:[facility] Start: 08-01-2025 Non-patient / Non-visit Dr. Jose L Nagel MD [facility] Start: 08-01-2025 End: 08-01-2025 Patient encounter procedure TEA LEAF READER Ivelisse Gould [facility] Pulmonary Medicine Work Phone: Start: 08-01-2025 End: 08-01-[address] Randa Joseph DO Work Phone: -[facility] Start: 07-25-2025 Non-patient / [facility] Start: 07-18-2025 Non-patient / Non-[facility] Start: 07-18-2025 End: 07-18-[address] Randa Joseph DO Work Phone: -[facility] Start: 07-18-2025 End: 07-18-[address] Jose L Nagel MD -[facility] Work Phone: Start: 07-11-2025 End: 07-11-2025 Patient encounter procedure Neris ALMARAZC -Medical Out Work Phone: Start: 07-11-2025 End: 07-11-[address] Randa Joseph DO Work Phone: -Medical Out Start: 06-15-2025 End: 06-18-[address] Randa Joseph DO Work Phone: -[facility] Start: 06-15-2025 End: 06-18-2025 Discharged Recurring Merrill Burns DPM -[facility] Work Phone: Start: 05-23-2025 ambulatory Neris Tovar NP Fac ili:[facility] Start: 05-18-2025 End: 05-18-[address] Randa Joseph DO Work Phone: -[facility] Start: 05-18-2025 End: 05-18-2025 Discharged Recurring Merrill Burns DPM -[facility] Work Phone: Start: 05-16-2025 End: 05-16-2025 Patient encounter procedure Neris LEACH -Medical Out Work Phone: Start: 05-16-2025 End: 05-16-[address] Randa Joseph DO Work Phone: -Medical Out Start: 05-15-2025 Registered Recurring Merrill machado DPM -[facility] Work Phone: Start: 04-26-2025 End: 04-26-2025 Patient encounter procedure Salima MCCALLUM -[facility] Work Phone: Start: 04-26-2025 End: 04-26-[address] Randa Joseph DO Work Phone: -[facility] Start: 04-20-2025 Registered Recurring Merrill machado DPM -[facility] Work Phone: Start: 04-17-2025 Non-patient / Non-visit Dr. Murray archibald MD -[facility] Start: 04-17-2025 End: 04-17-[address] Randa Joseph DO Work Phone: -Cardiovascular Services Start: 04-17-2025 End: 04-17-2025 Patient encounter procedure Salima Morin PA -Cardiovascular Services Work Phone: Start: 04-17-2025 End: 04-17-2025 ambulatory Salima Morin Facility:[facility] Start: 04-14-2025 End: 04-14-2025 Patient encounter procedure YAEL BAILONLEY PA -Medical Out Work Phone: Start: 04-14-2025 End: 04-14-[address] Randa Joseph DO Work Phone: -Medical Out Start: 04-13-2025 ambulatory Randa Joseph Facility: [facility] Start: 04-13-2025 Non-patient / Non-visit Dr. Murray archibald MD -[facility] Start: 04-13-2025 End: 04-13-2025 Admission to same day surgery center Dr. Murray Mckee MD -Classifier Operator/Special Procedures Work Phone: Start: 04-13-2025 End: 04-13-[address] Randa Joseph DO Work Phone: -Classifier Operator/Special Procedures Start: 04-12-2025 End: 04-17-[address] Randa Joseph DO Work Phone: -[facility] Start: 04-12-2025 End: 04-17-2025 Discharged Recurring Merrill Burns DPM -[facility] [place] [facility] Work Phone: Start: 04-12-2025 Registered Recurring Merrill machado DPM -[facility] Work Phone: Start: 03-28-2025 End: 03-28-2025 Patient encounter procedure TEA LEAF READER Ivelissemalcom Gould -[facility] Work Phone: Start: 03-28-2025 End: 03-28-[address] Randa Joseph DO Work Phone: [facility] Work Phone: Start: 03-27-2025 Registered Recurring Merrill machado DPDontae -W[facility] Healing Center Work Phone: Start: 03-16-2025 End: 03-18-[address] Randa Joseph DO Work Phone: [facility] Work Phone: Start: 03-16-2025 End: 03-18-2025 Discharged Recurring Merrill Burns DPM -[facility] [place] [facility] Work Phone: Start: 03-16-2025 Registered Recurring Merrill machado DPM -[facility] Work Phone: Start: 03-14-2025 Non-patient / Non-visit Dr. Murray archibald MD -[facility] Start: 03-14-2025 End: 03-14-[address] Randa Joseph DO Work Phone: [facility] Work Phone: Start: 03-14-2025 End: 03-14-2025 Patient encounter procedure Salima MCCALLUM -Cardiovascular Services Work Phone: Start: 03-14-2025 End: 03-14-2025 ambulatory Salima Morin Facility:[facility] Start: 03-02-2025 Non-patient / Non-visit Dr. Jose L Nagel MD -[facility] Start: 03-01-2025 End: 03-01-2025 Patient encounter procedure Salima MCCALLUM -[facility] Work Phone: Start: 03-01-2025 End: 03-01-[address] Randa Joseph DO Work Phone: [facility] Work Phone: Start: 02-27-2025 Registered Recurring Merrill machado DPM -[facility] Work Phone: Start: 02-13-2025 End: 02-13-[address] Randa Joseph DO -Laboratory, Specimen Work Phone: Start: 02-13-2025 End: 02-13-2025 ambulatory Randa Joseph Facility:[facility] Start: 01-24-2025 End: 01-24-2025 Patient encounter procedure Neris Tovar NP-C -Medical Out Work Phone: Start: 01-24-2025 End: 01-24-[address] Randa Joseph DO Work Phone: [facility] Work Phone: Start: 12-28-2024 End: 12-28-[address] Randa Joseph DO Work Phone: [facility] Work Phone: Start: 12-28-2024 End: 12-28-[address] Randa Joseph DO -Physical Therapy Work Phone: Start: 12-07-2024 End: 12-07-2024 Patient encounter procedure TODD Gould -[facility] Work Phone: Start: 12-07-2024 End: 12-07-2024 ambulatory Ivelisse Gould Facility:[facility] Start: 12-07-2024 End: 12-07-2024 ambulatory Ivelisse Gould Facility:[facility] Start: 11-30-2024 End: 11-30-2024 Patient encounter procedure Neris Tovar TEA LEAF READER-C -Medical Out Work Phone: Start: 11-30-2024 End: 11-30-2024 ambulatory Neris Tovar NP Facility:[facility] Start: 11-28-2024 Encounter for genera l adult medical examination without abnormal findings López Joseph [facility] Start: 11-15-2024 ambulatory Ivelisse Gould Facili ty:[facility] Start: 11-15-2024 Non-patient / Non-visit Dr. Abel kong DO -[facility] Start: 11-08-2024 End: 11-08-[address] López Joseph MD -Sleep Lab Work Phone: Start: 11-08-2024 End: 11-08-2024 ambulatory [facility] Facility:[facility] Start: 11-07-2024 End: 11-07-2024 Patient encounter procedure TEA LEAF READER Ivelisse Gould -Pulmonary Services/Neurology Work Phone: Start: 11-07-2024 End: 11-07-2024 ambulatory Ivelisse Gould Facility:[facility] Start: 11-05-2024 End: 11-05-2024 Emergency department patient visit Dr. Mario Koo MD -Emergency Department Work Phone: Start: 11-02-2024 End: 11-02-2024 Patient encounter procedure TEA LEAF READER Ivelisse Gould -Pulmonary Services/Neurology Work Phone: Start: 11-02-2024 End: 11-02-2024 ambulatory Ivelisse Gould Facility:[facility] Start: 10-13-2024 End: 10-13-2024 Patient encounter procedure YAEL MCCALLUM -Medical Out Work Phone: Start: 10-13-2024 End: 10-13-2024 [facility] Facility:[facility] Start: 10-04-2024 End: 10-04-2024 ambulatory Neris Tovar TEA LEAF READER Facility:[facility] Start: 10-04-2024 End: 10-04-2024 Patient encounter procedure Neris Tovar TEA LEAF READER-C -Medical Out Work Phone: Start: 10-04-2024 End: 10-04-[address] Luiza Moon MD -Laboratory, [facility] Start: 10-04-2024 End: 10-04-2024 Patient encounter procedure TODD Gould -[facility] Work Phone: Start: 10-04-2024 End: 10-04-2024 ambulatory [facility] Facility:[facility] Start: 10-04-2024 End: 10-04-2024 ambulatory [facility] Facility:[facility] Start: 09-22-2024 End: 09-22-[address] Randa Joseph DO -Radiology, [place] Work Phone: Start: 09-22-2024 End: 09-22-2024 ambulatory Randa Vamshi Facility:[facility] Start: 09-12-2024 End: 09-12-2024 Emergency department patient visit Dr. Yung Ruvalcaba MD -Emergency Department Work Phone: Start: 08-08-2024 End: 08-08-2024 Subsequent hospital visit by physician [facility] Work Phone: Radiology Comment on above: Injury of right shou lder, initial encounter [S49.91XA] Start: 08-08-2024 End: 08-08-2024 ambulatory [facility] Facility:[facility] Start: 08-08-2024 End: 08-08-2024 Patient encounter procedure Jaqui Felton APRN.COFFEE SHOP ATTENDANT Work Phone: [facility] Comment on above: Injury of right shou lder, initial encounter (Primary Dx) Start: 03-08-2024 End: 03-08-[address] [place] [facility] Facility:[facility] Start: 03-08-2024 End: 03-08-2024 Patient encounter procedure Yael Nair APRN.COFFEE SHOP ATTENDANT Work Phone: [facility] Comment on above: Nail fungus (Primary Dx); Injury of great toenail Start: 02-04-2024 End: 02-16-[address] Randa Joseph Work Phone: [facility] Work Phone: Start: 02-04-2024 End: 02-16-[address] Randa Joseph Work Phone: [facility] Healing Center Work Phone: Start: 01-26-2024 End: 01-26-[address] Randa Joseph Work Phone: [facility] Work Phone: Start: 01-14-2024 End: 01-17-[address] Randa Joseph Work Phone: [facility] Work Phone: Start: 01-14-2024 End: 01-17-[address] Randa [facility] Work Phone: Start: 01-06-2024 Non-patient / Non-visit Dr. Suzan Joseph Work Phone: [facility] Start: 01-06-2024 End: 01-06-2024 Admission to same day surgery center Dr. Randa Joseph Work Phone: [facility]-Classifier Operator/Special Procedures Work Phone: Start: 01-06-2024 End: 01-06-[address] Randa Joseph Work Phone: [facility] Work Phone: Start: 12-31-2023 End: 12-31-[address] Randa Joseph Work Phone: [facility] Work Phone: Start: 12-31-2023 End: 12-31-[address] Randa Joseph [facility] Work Phone: Start: 12-18-2023 End: 12-18-[address] Randa Joseph Work Phone: [facility] Work Phone: Start: 12-18-2023 End: 12-18-[address] Randa Joseph Work Phone: [facility]-Medical Out Work Phone: Start: 12-17-2023 End: 12-17-[address] Randa Joseph Work Phone: [facility] Work Phone: Start: 12-17-2023 End: 12-17-[address] Randa Joseph [facility] Work Phone: Start: 12-17-[address] Randa Joseph [facility] Work Phone: Start: 11-25-2023 End: 11-25-[address] Randa Joseph Work Phone: [facility] Vascular Surgery Work Phone: Start: 11-19-2023 End: 12-17-[address] Randa Joseph Work Phone: [facility] Work Phone: Start: 11-19-2023 End: 12-17-[address] Randa Joseph Work Phone: [facility]-Home Health Lab Start: 11-17-2023 End: 11-18-[address] Randa Joseph Work Phone: [facility] Work Phone: Start: 11-17-2023 End: 11-18-[address] Randa Joseph [facility] Work Phone: Start: 11-17-[address] Randa Joseph Work Phone[facility] Work Phone: Start: 11-13-2023 End: 11-13-[address] Randa Joseph Work Phone: [facility] Work Phone: Start: 11-13-2023 End: 11-13-[address] Randa Joseph Work Phone: [facility]-Home Health Lab Start: 11-06-2023 End: 11-06-[address] Randa Joseph Work Phone: [facility] Work Phone: Start: 11-06-2023 End: 11-06-[address] Randa Joseph Work Phone: [facility]-Medical Out Work Phone: Start: 11-06-2023 Non-patient / Non-visit Dr. Suzan Joseph Work Phone: [facility] Start: 11-06-2023 End: 11-06-[address] Randa Joseph Work Phone: [facility] Work Phone: Start: 11-06-2023 End: 11-06-[address] Randa Joseph Work Phone: [facility] Work Phone: Start: 11-05-[address] Randa Joseph Work Phone: [facility]-W[facility]aling Center Work Phone: Start: 10-22-[address] Randa Joseph Work Phone: [facility]aling [facility] Work Phone: Start: 10-20-2023 End: 10-20-[address] Randa Joseph Work Phone: [facility] Work Phone: Start: 10-20-2023 End: 10-20-[address] Randa Joseph Work Phone: [facility]-Laboratory, Haley Plasencia [facility] Start: 10-15-2023 End: 10-15-[address] Randa Joseph Work Phone: [facility] Work Phone: Start: 10-15-2023 End: 10-15-[address] Randa Joseph Work Phone: [facility]-Medical Out Work Phone: Start: 10-15-2023 End: 10-18-[address] Randa Joseph Work Phone: [facility] Work Phone: Start: 10-15-2023 End: 10-18-[address] Randa Joseph Work Phone: [facility] Work Phone: Start: 10-15-[address] Randa Joseph Work Phone: [facility] Work Phone: Start: 10-08-[address] Randa Joseph Work Phone: [facility] Work Phone: Start: 10-05-2023 End: 10-05-[address] Randa Joseph Work Phone: [facility] Work Phone: Start: 10-05-2023 End: 10-05-[address] Randa Joseph Work Phone: [facility]-Laboratory, [place] Start: 09-22-2023 End: 09-22-[address] Randa Joseph Work Phone: [facility]-Pulmonary Medicine [facility] Work Phone: Start: 09-17-2023 End: 09-17-[address] Randa Joseph Work Phone: [facility] Work Phone: Start: 09-17-2023 End: 09-17-[address] Randa Joseph Work Phone: [facility]-Wound Healing Center Work Phone: Start: 09-02-2023 Non-patient / Non-visit Dr. Suzan Joseph Work Phone: [facility] Start: 08-24-2023 End: 08-24-2023 ambulatory [facility] Work Phone: Start: 08-24-2023 End: 08-24-2023 Patient encounter procedure [facility]-Medical Out Work Phone: Start: 07-15-2023 End: 07-15-2023 Patient encounter procedure [facility]-Cat Scan, [facility] Work Phone: Start: 06-30-2023 End: 06-30-2023 Patient encounter procedure [facility]-Medical Out Work Phone: Start: 06-03-2023 End: 06-03-2023 ambulatory [facility] Work Phone: Start: 06-03-2023 End: 06-03-2023 Patient encounter procedure [facility]-[place] Haley Luis Angel [facility] Start: 04-23-2023 End: 04-23-2023 ambulatory [facility] Work Phone: Start: 04-23-2023 End: 04-23-2023 Patient encounter procedure [facility]-Medical Out Work Phone: Start: 04-14-2023 End: 04-14-2023 ambulatory [facility] Work Phone: Start: 04-14-2023 End: 04-14-2023 Patient encounter procedure [facility]-Medical Out Start: 04-10-2023 End: 04-10-2023 Patient encounter procedure [facility] Start: 03-26-2023 End: 03-26-2023 ambulatory [facility] Work Phone: Start: 03-26-2023 End: 03-26-2023 Patient encounter procedure [facility]-Laboratory, [facility] Start: 03-05-2023 End: 03-05-2023 ambulatory [facility] Work Phone: Start: 03-05-2023 End: 03-05-2023 [facility]charged Recurring [facility]: Start: 03-05-2023 [facility] Start: 02-20-2023 End: 02-20-2023 ambulatory [facility] Work Phone: Start: 02-20-2023 End: 02-20-2023 Patient encounter procedure [facility]-Medical Out Start: 02-19-2023 [facility] Start: 02-14-2023 End: 02-14-2023 Patient encounter procedure Renee Amaya PALENCIACOFFEE SHOP ATTENDANT Work Phone: [facility] Comment on above: Lower respiratory in fection (Primary Dx) Start: 12-31-[address] Peter Finney [facility] Start: 12-26-2022 End: 12-26-[address] Peter Finney Work Phone: [facility] Work Phone: Start: 12-26-2022 End: 12-26-[address] Peter Finney Work Phone: [facility]-Medical Out Start: 12-10-[address] Peter Finney [facility] Start: 12-03-2022 End: 12-03-[address] Peter Finney Work Phone: [facility] Work Phone: Start: 12-03-2022 End: 12-03-[address] Peter Finney Work Phone: [facility]-Laboratory, [facility] Start: 10-24-2022 End: 10-24-[address] Peter Finney Work Phone: [facility] Work Phone: Start: 10-24-2022 End: 10-24-[address] Peter Finney [facility] Start: 10-20-2022 End: 10-20-2022 Patient encounter procedure Jaqui Felton [employer] Work Phone: [facility] Comment on above: Lower resp. tract in fection (Primary Dx); History of asthma Start: 10-14-2022 End: 10-14-[address] Peter Finney Work Phone: [facility] Work Phone: Start: 10-14-2022 End: 10-14-[address] Peter Finney [facility] Start: 09-22-2022 End: 09-22-[address] Peter Finney Work Phone: [facility] Work Phone: Start: 09-22-2022 End: 09-22-[address] Peter Finney Work Phone: [facility]-Pulmonary Medicine [facility] Start: 09-17-2022 End: 09-17-2022 Patient encounter procedure Teagan Peraza PA-C Work Phone: General Surgery Comment on above: S/P hernia repair (P rimary Dx) Start: 09-10-2022 End: 09-10-2022 ambulatory PETER FINNEY Facility:[facility] Start: 08-19-2022 End: 08-19-2022 ambulatory [facility] Work Phone: Start: 08-19-2022 End: 08-19-2022 [facility] Start: 08-04-2022 End: 08-04-2022 Patient encounter procedure Maxx Mayer MD Work Phone: General Surgery Comment on above: Left inguinal hernia (Primary Dx) Start: 07-23-2022 End: 07-23-2022 ambulatory [facility] Work Phone: Start: 07-23-2022 End: 07-23-2022 Discharged Recurring [facility]-Physical Therapy Start: 07-16-2022 End: 07-16-[address] Peter Finney Work Phone: [facility] Work Phone: Start: 07-16-2022 End: 07-16-[address] Peter Finney Work Phone: [facility]-Cat Scan, WC Start: 07-14-[address] Peter Finney Work Phone: [facility]-Physical Therapy Start: 06-25-[address] Peter Finney Work Phone: [facility]-Physical Therapy Start: 06-24-2022 End: 06-24-[address] Peter Finney Work Phone: [facility] Work Phone: Start: 06-24-2022 End: 06-24-[address] Peter Finney Work Phone: [facility]Medical Out Start: 05-01-2022 End: 05-01-[address] Peter Finney Work Phone: [facility]-Laboratory, [facility] Start: 04-29-2022 End: 04-29-[address] Peter Finney Work Phone: [facility] Out Start: 03-27-2022 End: 03-27-[address] Peter Finney Work Phone: [facility]-Sleep Lab Start: 03-25-2022 End: 03-25-[address] Peter Finney Work Phone: [facility] Start: 03-21-2022 End: 03-21-[address] [facility] Start: 03-04-2022 End: 03-04-2022 Patient encounter procedure [facility] Start: 02-19-2022 End: 02-19-2022 Patient encounter procedure [facility]-Outpatient Bone Densitometry Start: 01-07-2022 End: 01-07-[address] [facility] Fin[facility] Start: 11-12-2021 End: 11-12-[address] [facility] Start: 10-01-2021 End: 10-01-[address] Peter Finney Work Phone: [facility] Start: 09-25-2021 End: 09-25-[address] Peter Finney Work Phone: [facility] Start: 09-20-[address] [facility] Fin[facility] Start: 09-17-[address] [facility] Fin[facility] Start: 01-26-2019 Patient encounter procedure CARMEN ECHEVARRIA Facility:[facility] Start: 01-12-2019 End: 01-12-2019 Patient encounter procedure CARMEN ECHEVARRIA Facility:[facility] Start: 09-29-2018 End: 09-30-2018 Patient encounter procedure CARMEN ECHEVARRIA Facility:[facility] Start: 07-07-2018 End: 07-08-2018 Patient encounter procedure IMCA Facility:[facility] Start: 05-10-2018 End: 05-13-2018 Evaluation and management of inpatient [facility] Start: 05-04-2018 End: 05-05-2018 Patient encounter [facility] Procedures Date Procedure Procedure Detail Performing Clinician Start: 05-18-[address] Randa thacker DO Work Phone: Start: 05-18-[address] Randa Joseph DO Work Phone: Start: 05-18-2025 End: 05-18-2025 Microbial culture, routine Dr. Randa palmer DO Work Phone: Start: 02-13-[address] Randa [...] chest, PA and lateral views Dr. Randa Jsoeph DO Work Phone: Start: 11-05-2024 D-dimer assay, [...] shoulder complete minimum 2 views Jaqui Felton APRN.[employer] Work Phone: Start: 10-22-2023 Anaerobic microbial culture [...] 10-20-2022 COVID WITH FLUA+B, ROUTINE Jaqui Felton APRN.[employer] ATTENDANT Work Phone: Start: 07-16-2022 Computed tomography of [...] Peripheral Nervous Electrical Activity, Intraoperative, External Approach JAREK ISAAC Colonoscopy colonoscopy Dr. Peter monet Work Phone: History of cholecystectomy Histo ry of cholecystectomy Dr. Randa Joseph DO Work Phone: History of cholecystectomy Histo ry of cholecystectomy Salima MCCALLUM History of cholecystectomy Histo ry of cholecystectomy Dr. Jose L Nagel MD History of cholecystectomy Histo ry of cholecystectomy Dr. Jose L Nagel MD Plan of Treatment Date Care Activity Detail Author Start: 04-26-2030 Urine microalbumin profile DTaP,Tdap,Td Vaccine (4 - Td or Tdap) [facility] Start: 08-18-2025 DIABETES SCREEN DIABETES SCREEN [facility] Start: 08-18-2025 Diabetes Screening Diabetes Screening [facility] Start: 08-11-2025 Registered Recurring Acquired lymphedema of lower [facility] Work Phone: Start: 08-08-2025 Non-patient / Non-visit Non-patient / Non-visit -[facility] Start: 07-18-2025 End: 07-18-2025 Discharged Recurring Bilateral lower extremity edema [facility] Work Phone: Start: 05-18-2025 Source specific culture [facility] Start: 05-18-2025 Anaerobic Culture Anaerobic Culture [facility] Start: 05-18-2025 Microscopic observation [Identifier] in Unspecified specimen by Gram stain [facility] Start: 05-18-2025 Wound Culture Wound Culture [facility] Start: 11-05-2024 [facility] Start: 11-05-2024 [facility] Start: 09-12-2024 [facility] Start: 06-19-2024 Covid-19 Vaccine ( season) Covid-19 Vaccine () [facility] Start: 05-31-2024 Urine microalbumin profile DTAP,TDAP,TD (2 - Td or Tdap) [facility] Start: 01-06-2024 Patient discharge [facility] Start: 11-06-2023 Iv infusion therapy/prophylaxis /dx 1st to 1 hr THER/PROPH/DIAG IV INF INIT [facility] Start: 10-22-2023 Anaerobic Culture Anaerobic Culture [facility] Start: 10-22-2023 Microbial culture, routine Wound Culture [facility] Start: 10-21-2023 [facility] Start: 10-20-2023 Urine culture Urine Culture [facility] Start: 10-19-2023 Advance Directive Discussion Advance Directive Discussion [facility] Start: 10-19-2023 Behavioral Health Screening Behavioral Health Screening [facility] Start: 06-19-2023 Covid-19 Vaccine () Covid-19 Vaccine () [facility] Start: 10-19-2022 ADVANCE DIRECTIVE DISCUSSION ADVANCE DIRECTIVE DISCUSSION [facility] Start: 10-19-2022 DEPRESSION ASSESSMENT DEPRESSION ASSESSMENT [facility] Start: 06-19-2022 Influenza vaccination INFLUENZA (#1) [facility] Start: 12-04-2021 COVID-19 VACCINE (4 - Booster for Pfizer series) COVID-19 VACCINE (4 - Booster for Pfizer series) [facility] Start: 10-19-2021 ADVANCE DIRECTIVE DISCUSSION ADVANCE DIRECTIVE DISCUSSION [facility] Start: 10-19-2021 DEPRESSION ASSESSMENT DEPRESSION ASSESSMENT [facility] Start: 2021 RSV Vaccine (1 - 1-dose 75+ series) RSV Vaccine (1 - 1-dose 75+ series) [facility] Start: 02-24-2019 DIABETES SCREEN DIABETES SCREEN [facility] Start: 08-07-2017 End: 08-07-2017 Appointment Appointment [facility] Work Phone: Start: 05-10-2013 Hepatitis B surface antibody level LDL CHOLESTEROL [facility] Start: 2006 RSV Vaccine (1 - 1-dose 60+ series) RSV Vaccine (1 - 1-dose 60+ series) [facility] Start: 02-19-1996 SHINGRIX VACCINE (1 of 2) SHINGRIX VACCINE (1 of 2) [facility] Start: 02-19-1964 ANNUAL PCP TEAM CHRONIC DISEASE VISIT ANNUAL PCP TEAM CHRONIC DISEASE VISIT [facility] Start: 02-19-1964 Anxiety Screening Anxiety Screening [facility] Start: 02-19-1964 Depression Screening Depression Screening [facility] Start: 02-19-1964 HEPATITIS C SCREENING HEPATITIS C SCREENING [facility] Start: 02-19-1964 Hepatitis C screening Hepatitis C Screening [facility] Bacteria identified in Unspecified specimen by Anaerobe culture [facility] Bacteria identified in Unspecified specimen by Anaerobe culture [facility] CT Chest WO contrast [facility] Ferritin [Mass/volum e] in Serum or Plasma [facility] Patient Education [facility] Work Phone: Patient referral [facility] Work Phone: US.doppler Lower extremity vein [facility] US.doppler Lower extremity vein [facility] US.doppler Lower extremity vessels [facility] Wound microscopy, cu lture and sensitivities [facility] Immunizations Immunization Date Immunization Notes Care Provider Fa cili 09-12-2024 tetanus toxoid, redu kendra diphtheria toxoid, and acellular pertussis vaccine, adsorbed Dr. Randa Joseph DO Work Phone: [facility] 01-15-2021 Covid (Pfizer) Dr. Peter tang Work Phone: [facility] 12-25-2020 Covid (Pfizer) Dr. Peter tang Work Phone: [facility] 04-26-2020 tetanus toxoid, redu kendra diphtheria toxoid, and acellular pertussis vaccine, adsorbed Dr. Peter Finney Work Phone: [facility] 07-06-[address] Peter Finney Work Phone: [facility] 07-18-2016 influenza, high dose seasonal, preservative-free Maxx Mayer MD Work Phone: [facility] Work Phone: 07-11-2015 influenza, high dose meena, preservative-free Maxx Mayer MD Work Phone: [facility] 07-11-2015 pneumococcal conjuga te vaccine, 13 valent Maxx Mayer MD Work Phone: [facility] 07-07-2014 influenza, high dose meena, preservative-free Maxx Mayer MD Work Phone: [facility] 05-31-2014 tetanus toxoid, redu kendra diphtheria toxoid, and acellular pertussis vaccine, adsorbed Maxx Mayer MD Work Phone: [facility] 05-31-2014 typhoid vaccine, unspecified formulation Maxx Mayer MD Work Phone: [facility] 08-17-2013 pneumococcal polysaccharide vaccine, 23 valent Maxx Mayer MD Work Phone: [facility] 08-03-2013 influenza virus vacc ine, unspecified formulation Maxx Mayer MD Work Phone: [facility] Payers Date Payer Category Payer Self-pay [id number] 2011 Unknown HOSPITAL/MEDICAL GENERIC MEDICAL GENERIC [id number] 2011-Present [phone] [address] [place] [address] Indemnity [id number] 2011 Unknown [id number] 2011 Medicare MEDICARE MEDICAR E A AND B [id number] 2011-Present [phone] [address] [address] [place] [address] Medicare [id number] 2011 Medicare [id number] 1959 Medicare [id number] 1945 Unknown [id number] 2.16.840.1.376407.3.579.2.278 1945 Unknown [id number] 2.16.840.1.396107.3.579.2.278 1945 Unknown [id number] 2.16.840.1.591112.3.579.2.278 1945 Unknown [id number] 2.16.840.1.674042.3.579.2.278 1946 Unknown [id number] 2.16.840.1.900763.3.579.2.278 1946 Unknown [id number] 2.16.840.1.144213.3.579.2.278 Unknown [id number] 2.840.1.179771.3.579.2.462 Unknown [id number] 2.840.1.461654.3.579.2.462 Unknown [id number] 2.840.1.178153.3.579.2.462 Unknown [id number] 2.840.1.611978.3.579.2.462 Unknown [id number] 2.840.1.381363.3.579.2.462 Unknown [id number] 2.840.1.966325.3.579.2.462 Unknown [id number] 2.840.1.161048.3.579.2.462 Unknown [id number] 2.840.1.846300.3.579.2.462 Unknown [id number] .840.1.185609.3.579.2.462 Unknown [id number] .840.1.360302.3.579.2.462 Unknown [id number] .840.1.271107.3.579.2.462 Unknown [id number] .840.1.972617.3.579.2.462 Unknown [id number] 2.840.1.177060.3.579.2.462 Unknown [id number] .840.1.249239.3.579.2.462 Unknown [id number] .840.1.582993.3.579.2.462 Unknown [id number] .840.1.405989.3.579.2.462 Unknown [id number] 2.840.1.171265.3.579.2.462 Unknown [id number] 2.840.1.644919.3.579.2.462 Unknown [id number] 2.16.840.1.464649.3.579.2.462 Unknown [id number] 2.16.840.1.366231.3.579.2.462 Unknown [id number] 2.16.840.1.668797.3.579.2.462 Unknown [id number] 2.16.840.1.342603.3.579.2.462 Unknown [id number] 2.16.840.1.832317.3.579.2.462 Unknown [id number] 2.16.840.1.352709.3.579.2.462 Unknown [id number] 2.16.840.1.136670.3.579.2.462 Unknown [id number] 2.16.840.1.523892.3.579.2.462 Unknown [id number] 2.16.840.1.397050.3.579.2.462 Unknown [id number] 2.16840.1.706756.3.579.2.462 Unknown [id number] 2.16.840.1.424299.3.579.2.462 Unknown [id number] 2.16.840.1.474858.3.579.2.462 Unknown [id number] 2.16.840.1.152447.3.579.2.462 Unknown [id number] 2.16.840.1.578491.3.579.2.462 Unknown [id number] 2.16.840.1.453864.3.579.2.462 Unknown [id number] 2.16.840.1.289007.3.579.2.462 Unknown [id number] 2.16.840.1.458199.3.579.2.462 Unknown [id number] 2.16.840.1.725275.3.579.2.462 Unknown [id number] 2.16.840.1.064503.3.579.2.462 Unknown [id number] 2.16.840.1.215126.3.579.2.462 Unknown [id number] 2.16.840.1.196312.3.579.2.462 Unknown [id number] 2.16.840.1.864618.3.579.2.462 Social History Date Type Detail Facility Start: 10-01-2021 End: 01-26-2024 Tobacco smoking status MAIS Unknown if ever smoked [facility] Start: 02-12-2021 None [facility] Start: 10-21-2019 Spouse/ Signif icant Other [facility] Start: 02-12-2021 Non-smoker [facility] Start: 1945 Sex Assigned At Male W [facility] Start: 08-23-2012 End: 04-13-2025 Tobacco smoking status MAIS Ex-smoker [facility] End: 10-19-1967 History of tobacco use Current smoker [facility] End: 10-19-1967 History of tobacco use Cigarette Smoker [facility] Start: 08-23-2012 End: 08-08-2024 Tobacco use and exposure Smokeless tobacco non-user [facility] Start: 08-04-2022 End: 08-08-2024 Alcohol intake Current non-drinker of alcohol (finding) [facility] Start: 1945 Sex Assigned At Not on file C [facility] Start: 07-25-2022 End: 09-17-2022 Exposure to SARS-CoV-2 (event) Not sure [facility] Start: 11-09-2022 End: 02-14-2023 History of Social function [facility] Start: 11-09-2022 End: 02-14-2023 Tobacco use panel [facility] Adult Depression Screening Assessment 1 [facility] Start: 12-29-2024 End: 01-25-2025 Sex Male (finding) [facility] Medical Equipment Procedure Code Equipment Code Equipment Origin al Text Equipment Identifier Dates 3.3MM DRILL BIT FDA Start: 10-07-2017 ZOROASTRIAN GAP PLATE SCREW FDA Start: 10-07-2017 ZOROASTRIAN MODU LAR HIP SYSTM FDA Start: 10-07-2017 RESTORE ANATOMIC GONZÁLEZ SHELL FDA Start: 10-07-2017 explant full blade FDA Start: 10-07-2017 mabel explant truncated blade FDA Start: 10-07-2017 LFIT 40 FEMORAL HEAD FDA Star t: 10-07-2017 MDM CEMENTLESS LINER FDA Star t: 10-07-2017 ZOROASTRIAN ADM/ MDM INSERT FDA Start: 10-07-2017 ZOROASTRIAN GAP PLATE SCREW FDA Start: 10-07-2017 ZOROASTRIAN GAP PLATE SCREW FDA Start: 10-07-2017 ZOROASTRIAN GAP PLATE SCREW FDA Start: 10-07-2017 ZOROASTRIAN GAP PLATE SCREW FDA Start: 10-07-2017 ZOROASTRIAN GAP PLATE SCREW FDA Start: 10-07-2017 3.3MM DRILL BIT FDA Start: 10-07-2017 ZOROASTRIAN GAP PLATE SCREW FDA Start: 10-07-2017 ZOROASTRIAN MODU LAR HIP SYSTM FDA Start: 10-07-2017 RESTORE ANATOMIC GONZÁLEZ SHELL FDA Start: 10-07-2017 explant full blade FDA Start: 10-07-2017 mabel explant truncated blade FDA Start: 10-07-2017 LFIT 40 FEMORAL HEAD FDA Star t: 10-07-2017 MDM CEMENTLESS LINER FDA Star t: 10-07-2017 ZOROASTRIAN ADM/ MDM INSERT FDA Start: 10-07-2017 ZOROASTRIAN GAP PLATE SCREW FDA Start: 10-07-2017 ZOROASTRIAN GAP PLATE SCREW FDA Start: 10-07-2017 ZOROASTRIAN GAP PLATE SCREW FDA Start: 10-07-2017 ZOROASTRIAN GAP PLATE SCREW FDA Start: 10-07-2017 ZOROASTRIAN GAP PLATE SCREW FDA Start: 10-07-2017 3.3MM DRILL BIT FDA Start: 10-07-2017 ZOROASTRIAN GAP PLATE SCREW FDA Start: 10-07-2017 ZOROASTRIAN MODU LAR HIP SYSTM FDA Start: 10-07-2017 RESTORE ANATOMIC GONZÁLEZ SHELL FDA Start: 10-07-2017 explant full blade FDA Start: 10-07-2017 mabel explant truncated blade FDA Start: 10-07-2017 LFIT 40 FEMORAL HEAD FDA Star t: 10-07-2017 MDM CEMENTLESS LINER FDA Star t: 10-07-2017 ZOROASTRIAN ADM/ MDM INSERT FDA Start: 10-07-2017 ZOROASTRIAN GAP PLATE SCREW FDA Start: 10-07-2017 ZOROASTRIAN GAP PLATE SCREW FDA Start: 10-07-2017 ZOROASTRIAN GAP PLATE SCREW FDA Start: 10-07-2017 ZOROASTRIAN GAP PLATE SCREW FDA Start: 10-07-2017 ZOROASTRIAN GAP PLATE SCREW FDA Start: 10-07-2017 3.3MM DRILL BIT FDA Start: 10-07-2017 ZOROASTRIAN GAP PLATE SCREW FDA Start: 10-07-2017 ZOROASTRIAN MODU LAR HIP SYSTM FDA Start: 10-07-2017 RESTORE ANATOMIC GONZÁLEZ SHELL FDA Start: 10-07-2017 explant full blade FDA Start: 10-07-2017 mabel explant truncated blade FDA Start: 10-07-2017 LFIT 40 FEMORAL HEAD FDA Star t: 10-07-2017 MDM CEMENTLESS LINER FDA Star t: 10-07-2017 ZOROASTRIAN ADM/ MDM INSERT FDA Start: 10-07-2017 ZOROASTRIAN GAP PLATE SCREW FDA Start: 10-07-2017 ZOROASTRIAN GAP PLATE SCREW FDA Start: 10-07-2017 ZOROASTRIAN GAP PLATE SCREW FDA Start: 10-07-2017 ZOROASTRIAN GAP PLATE SCREW FDA Start: 10-07-2017 ZOROASTRIAN GAP PLATE SCREW FDA Start: 10-07-2017 3.3MM DRILL BIT FDA Start: 10-07-2017 ZOROASTRIAN GAP PLATE SCREW FDA Start: 10-07-2017 ZOROASTRIAN MODU LAR HIP SYSTM FDA Start: 10-07-2017 RESTORE ANATOMIC GONZÁLEZ SHELL FDA Start: 10-07-2017 explant full blade FDA Start: 10-07-2017 mabel explant truncated blade FDA Start: 10-07-2017 LFIT 40 FEMORAL HEAD FDA Star t: 10-07-2017 MDM CEMENTLESS LINER FDA Star t: 10-07-2017 ZOROASTRIAN ADM/ MDM INSERT FDA Start: 10-07-2017 ZOROASTRIAN GAP PLATE SCREW FDA Start: 10-07-2017 ZOROASTRIAN GAP PLATE SCREW FDA Start: 10-07-2017 ZOROASTRIAN GAP PLATE SCREW FDA Start: 10-07-2017 ZOROASTRIAN GAP PLATE SCREW FDA Start: 10-07-2017 ZOROASTRIAN GAP PLATE SCREW FDA Start: 10-07-2017 3.3MM DRILL BIT FDA Start: 10-07-2017 ZOROASTRIAN GAP PLATE SCREW FDA Start: 10-07-2017 ZOROASTRIAN MODU LAR HIP SYSTM FDA Start: 10-07-2017 RESTORE ANATOMIC GONZÁLEZ SHELL FDA Start: 10-07-2017 explant full blade FDA Start: 10-07-2017 mabel explant truncated blade FDA Start: 10-07-2017 LFIT 40 FEMORAL HEAD FDA Star t: 10-07-2017 MDM CEMENTLESS LINER FDA Star t: 10-07-2017 ZOROASTRIAN ADM/ MDM INSERT FDA Start: 10-07-2017 ZOROASTRIAN GAP PLATE SCREW FDA Start: 10-07-2017 ZOROASTRIAN GAP PLATE SCREW FDA Start: 10-07-2017 ZOROASTRIAN GAP PLATE SCREW FDA Start: 10-07-2017 ZOROASTRIAN GAP PLATE SCREW FDA Start: 10-07-2017 ZOROASTRIAN GAP PLATE SCREW FDA Start: 10-07-2017 3.3MM DRILL BIT FDA Start: 10-07-2017 ZOROASTRIAN GAP PLATE SCREW FDA Start: 10-07-2017 ZOROASTRIAN MODU LAR HIP SYSTM FDA Start: 10-07-2017 RESTORE ANATOMIC GONZÁLEZ SHELL FDA Start: 10-07-2017 explant full blade FDA Start: 10-07-2017 mabel explant truncated blade FDA Start: 10-07-2017 LFIT 40 FEMORAL HEAD FDA Star t: 10-07-2017 MDM CEMENTLESS LINER FDA Star t: 10-07-2017 ZOROASTRIAN ADM/ MDM INSERT FDA Start: 10-07-2017 ZOROASTRIAN GAP PLATE SCREW FDA Start: 10-07-2017 ZOROASTRIAN GAP PLATE SCREW FDA Start: 10-07-2017 ZOROASTRIAN GAP PLATE SCREW FDA Start: 10-07-2017 ZOROASTRIAN GAP PLATE SCREW FDA Start: 10-07-2017 ZOROASTRIAN GAP PLATE SCREW FDA Start: 10-07-2017 3.3MM DRILL BIT FDA Start: 10-07-2017 ZOROASTRIAN GAP PLATE SCREW FDA Start: 10-07-2017 ZOROASTRIAN MODU LAR HIP SYSTM FDA Start: 10-07-2017 RESTORE ANATOMIC GONZÁLEZ SHELL FDA Start: 10-07-2017 explant full blade FDA Start: 10-07-2017 mabel explant truncated blade FDA Start: 10-07-2017 LFIT 40 FEMORAL HEAD FDA Star t: 10-07-2017 MDM CEMENTLESS LINER FDA Star t: 10-07-2017 ZOROASTRIAN ADM/ MDM INSERT FDA Start: 10-07-2017 ZOROASTRIAN GAP PLATE SCREW FDA Start: 10-07-2017 ZOROASTRIAN GAP PLATE SCREW FDA Start: 10-07-2017 ZOROASTRIAN GAP PLATE SCREW FDA Start: 10-07-2017 ZOROASTRIAN GAP PLATE SCREW FDA Start: 10-07-2017 ZOROASTRIAN GAP PLATE SCREW FDA Start: 10-07-2017 3.3MM DRILL BIT FDA Start: 10-07-2017 ZOROASTRIAN GAP PLATE SCREW FDA Start: 10-07-2017 ZOROASTRIAN MODU LAR HIP SYSTM FDA Start: 10-07-2017 RESTORE ANATOMIC GONZÁLEZ SHELL FDA Start: 10-07-2017 explant full blade FDA Start: 10-07-2017 mabel explant truncated blade FDA Start: 10-07-2017 LFIT 40 FEMORAL HEAD FDA Star t: 10-07-2017 MDM CEMENTLESS LINER FDA Star t: 10-07-2017 ZOROASTRIAN ADM/ MDM INSERT FDA Start: 10-07-2017 ZOROASTRIAN GAP PLATE SCREW FDA Start: 10-07-2017 ZOROASTRIAN GAP PLATE SCREW FDA Start: 10-07-2017 ZOROASTRIAN GAP PLATE SCREW FDA Start: 10-07-2017 ZOROASTRIAN GAP PLATE SCREW FDA Start: 10-07-2017 ZOROASTRIAN GAP PLATE SCREW FDA Start: 10-07-2017 3.3MM DRILL BIT FDA Start: 10-07-2017 ZOROASTRIAN GAP PLATE SCREW FDA Start: 10-07-2017 ZOROASTRIAN MODU LAR HIP SYSTM FDA Start: 10-07-2017 RESTORE ANATOMIC GONZÁLEZ SHELL FDA Start: 10-07-2017 explant full blade FDA Start: 10-07-2017 mabel explant truncated blade FDA Start: 10-07-2017 LFIT 40 FEMORAL HEAD FDA Star t: 10-07-2017 MDM CEMENTLESS LINER FDA Star t: 10-07-2017 ZOROASTRIAN ADM/ MDM INSERT FDA Start: 10-07-2017 ZOROASTRIAN GAP PLATE SCREW FDA Start: 10-07-2017 ZOROASTRIAN GAP PLATE SCREW FDA Start: 10-07-2017 ZOROASTRIAN GAP PLATE SCREW FDA Start: 10-07-2017 ZOROASTRIAN GAP PLATE SCREW FDA Start: 10-07-2017 ZOROASTRIAN GAP PLATE SCREW FDA Start: 10-07-2017 3.3MM DRILL BIT FDA Start: 10-07-2017 ZOROASTRIAN GAP PLATE SCREW FDA Start: 10-07-2017 ZOROASTRIAN MODU LAR HIP SYSTM FDA Start: 10-07-2017 RESTORE ANATOMIC GONZÁLEZ SHELL FDA Start: 10-07-2017 explant full blade FDA Start: 10-07-2017 mabel explant truncated blade FDA Start: 10-07-2017 LFIT 40 FEMORAL HEAD FDA Star t: 10-07-2017 MDM CEMENTLESS LINER FDA Star t: 10-07-2017 ZOROASTRIAN ADM/ MDM INSERT FDA Start: 10-07-2017 ZOROASTRIAN GAP PLATE SCREW FDA Start: 10-07-2017 ZOROASTRIAN GAP PLATE SCREW FDA Start: 10-07-2017 ZOROASTRIAN GAP PLATE SCREW FDA Start: 10-07-2017 ZOROASTRIAN GAP PLATE SCREW FDA Start: 10-07-2017 ZOROASTRIAN GAP PLATE SCREW FDA Start: 10-07-2017 3.3MM DRILL BIT FDA Start: 10-07-2017 ZOROASTRIAN GAP PLATE SCREW FDA Start: 10-07-2017 ZOROASTRIAN MODU LAR HIP SYSTM FDA Start: 10-07-2017 RESTORE ANATOMIC GONZÁLEZ SHELL FDA Start: 10-07-2017 explant full blade FDA Start: 10-07-2017 mabel explant truncated blade FDA Start: 10-07-2017 LFIT 40 FEMORAL HEAD FDA Star t: 10-07-2017 MDM CEMENTLESS LINER FDA Star t: 10-07-2017 ZOROASTRIAN ADM/ MDM INSERT FDA Start: 10-07-2017 ZOROASTRIAN GAP PLATE SCREW FDA Start: 10-07-2017 ZOROASTRIAN GAP PLATE SCREW FDA Start: 10-07-2017 ZOROASTRIAN GAP PLATE SCREW FDA Start: 10-07-2017 ZOROASTRIAN GAP PLATE SCREW FDA Start: 10-07-2017 ZOROASTRIAN GAP PLATE SCREW FDA Start: 10-07-2017 Bkb-Xc-E-Kind Im plant - [id number] Start: 08-23-2014 Screw Bn 2.7mm 1 6mm Lcp Ss - [id number] Start: 08-23-2014 3.3MM DRILL BIT FDA Start: 10-07-2017 ZOROASTRIAN GAP PLATE SCREW FDA Start: 10-07-2017 ZOROASTRIAN MODU LAR HIP SYSTM FDA Start: 10-07-2017 RESTORE ANATOMIC GONZÁLEZ SHELL FDA Start: 10-07-2017 explant full blade FDA Start: 10-07-2017 mabel explant truncated blade FDA Start: 10-07-2017 LFIT 40 FEMORAL HEAD FDA Star t: 10-07-2017 MDM CEMENTLESS LINER FDA Star t: 10-07-2017 ZOROASTRIAN ADM/ MDM INSERT FDA Start: 10-07-2017 ZOROASTRIAN GAP PLATE SCREW FDA Start: 10-07-2017 ZOROASTRIAN GAP PLATE SCREW FDA Start: 10-07-2017 ZOROASTRIAN GAP PLATE SCREW FDA Start: 10-07-2017 ZOROASTRIAN GAP PLATE SCREW FDA Start: 10-07-2017 ZOROASTRIAN GAP PLATE SCREW FDA Start: 10-07-2017 Mesh Surgipro La rge Polypropylene Surgical Nonabsorbable Plug Knitted - [id number] Start: 09-10-2022 3.3MM DRILL BIT FDA Start: 10-07-2017 ZOROASTRIAN GAP PLATE SCREW FDA Start: 10-07-2017 ZOROASTRIAN MODU LAR HIP SYSTM FDA Start: 10-07-2017 RESTORE ANATOMIC GONZÁLEZ SHELL FDA Start: 10-07-2017 explant full blade FDA Start: 10-07-2017 mabel explant truncated blade FDA Start: 10-07-2017 LFIT 40 FEMORAL HEAD FDA Star t: 10-07-2017 MDM CEMENTLESS LINER FDA Star t: 10-07-2017 [facility] ADM/ MDM INSERT FDA Start: 10-07-2017 [facility] GAP PLATE SCREW FDA Start: 10-07-2017 [facility]AN GAP PLATE SCREW FDA Start: 10-07-2017 [facility]AN GAP PLATE SCREW FDA Start: 10-07-2017 [facility] GAP PLATE SCREW FDA Start: 10-07-2017 [facility]AN GAP PLATE SCREW FDA Start: 10-07-2017 3.3MM DRILL BIT FDA Start: 10-07-2017 [facility] GAP PLATE SCREW FDA Start: 10-07-2017 [facility] MODU LAR HIP SYSTM FDA Start: 10-07-2017 RESTORE ANATOMIC GONZÁLEZ SHELL FDA Start: 10-07-2017 explant full blade FDA Start: 10-07-2017 mabel explant truncated blade FDA Start: 10-07-2017 LFIT 40 FEMORAL HEAD FDA Star t: 10-07-2017 MDM CEMENTLESS LINER FDA Star t: 10-07-2017 [facility] ADM/ MDM INSERT FDA Start: 10-07-2017 [facility] GAP PLATE SCREW FDA Start: 10-07-2017 [facility] GAP PLATE SCREW FDA Start: 10-07-2017 [facility]AN GAP PLATE SCREW FDA Start: 10-07-2017 [facility] GAP PLATE SCREW FDA Start: 10-07-2017 [facility] GAP PLATE SCREW FDA Start: 10-07-2017 3.3MM DRILL BIT FDA Start: 10-07-2017 [facility] GAP PLATE SCREW FDA Start: 10-07-2017 [facility] MODU LAR HIP SYSTM FDA Start: 10-07-2017 RESTORE ANATOMIC GONZÁLEZ SHELL FDA Start: 10-07-2017 explant full blade FDA Start: 10-07-2017 mabel explant truncated blade FDA Start: 10-07-2017 LFIT 40 FEMORAL HEAD FDA Star t: 10-07-2017 MDM CEMENTLESS LINER FDA Star t: 10-07-2017 [facility] ADM/ MDM INSERT FDA Start: 10-07-2017 [facility] GAP PLATE SCREW FDA Start: 10-07-2017 [facility] GAP PLATE SCREW FDA Start: 10-07-2017 [facility] GAP PLATE SCREW FDA Start: 10-07-2017 [facility] GAP PLATE SCREW FDA Start: 10-07-2017 [facility] GAP PLATE SCREW FDA Start: 10-07-2017 3.3MM DRILL BIT FDA Start: 10-07-2017 [facility] GAP PLATE SCREW FDA Start: 10-07-2017 [facility] MODU LAR HIP SYSTM FDA Start: 10-07-2017 RESTORE ANATOMIC GONZÁLEZ SHELL FDA Start: 10-07-2017 explant full blade FDA Start: 10-07-2017 mabel explant truncated blade FDA Start: 10-07-2017 LFIT 40 FEMORAL HEAD FDA Star t: 10-07-2017 MDM CEMENTLESS LINER FDA Star t: 10-07-2017 [facility] ADM/ MDM INSERT FDA Start: 10-07-2017 [facility] GAP PLATE SCREW FDA Start: 10-07-2017 [facility] GAP PLATE SCREW FDA Start: 10-07-2017 [facility] GAP PLATE SCREW FDA Start: 10-07-2017 [facility] GAP PLATE SCREW FDA Start: 10-07-2017 [facility] GAP PLATE SCREW FDA Start: 10-07-2017 3.3MM DRILL BIT FDA Start: 10-07-2017 [facility] GAP PLATE SCREW FDA Start: 10-07-2017 [facility] MODU LAR HIP SYSTM FDA Start: 10-07-2017 RESTORE ANATOMIC GONZÁLEZ SHELL FDA Start: 10-07-2017 explant full blade FDA Start: 10-07-2017 mabel explant truncated blade FDA Start: 10-07-2017 LFIT 40 FEMORAL HEAD FDA Star t: 10-07-2017 MDM CEMENTLESS LINER FDA Star t: 10-07-2017 [facility] ADM/ MDM INSERT FDA Start: 10-07-2017 [facility] GAP PLATE SCREW FDA Start: 10-07-2017 [facility] GAP PLATE SCREW FDA Start: 10-07-2017 [facility] GAP PLATE SCREW FDA Start: 10-07-2017 [facility] GAP PLATE SCREW FDA Start: 10-07-2017 [facility] GAP PLATE SCREW FDA Start: 10-07-2017 3.3MM DRILL BIT FDA Start: 10-07-2017 [facility] GAP PLATE SCREW FDA Start: 10-07-2017 [facility] MODU LAR HIP SYSTM FDA Start: 10-07-2017 RESTORE ANATOMIC GONZÁLEZ SHELL FDA Start: 10-07-2017 explant full blade FDA Start: 10-07-2017 mabel explant truncated blade FDA Start: 10-07-2017 LFIT 40 FEMORAL HEAD FDA Star t: 10-07-2017 MDM CEMENTLESS LINER FDA Star t: 10-07-2017 [facility] ADM/ MDM INSERT FDA Start: 10-07-2017 [facility] GAP PLATE SCREW FDA Start: 10-07-2017 [facility] GAP PLATE SCREW FDA Start: 10-07-2017 [facility] GAP PLATE SCREW FDA Start: 10-07-2017 [facility] GAP PLATE SCREW FDA Start: 10-07-2017 [facility] GAP PLATE SCREW FDA Start: 10-07-2017 3.3MM DRILL BIT FDA Start: 10-07-2017 [facility] GAP PLATE SCREW FDA Start: 10-07-2017 [facility] MODU LAR HIP SYSTM FDA Start: 10-07-2017 RESTORE ANATOMIC GONZÁLEZ SHELL FDA Start: 10-07-2017 explant full blade FDA Start: 10-07-2017 mabel explant truncated blade FDA Start: 10-07-2017 LFIT 40 FEMORAL HEAD FDA Star t: 10-07-2017 MDM CEMENTLESS LINER FDA Star t: 10-07-2017 [facility] ADM/ MDM INSERT FDA Start: 10-07-2017 [facility] GAP PLATE SCREW FDA Start: 10-07-2017 [facility] GAP PLATE SCREW FDA Start: 10-07-2017 [facility] GAP PLATE SCREW FDA Start: 10-07-2017 [facility] GAP PLATE SCREW FDA Start: 10-07-2017 [facility] GAP PLATE SCREW FDA Start: 10-07-2017 3.3MM DRILL BIT FDA Start: 10-07-2017 [facility] GAP PLATE SCREW FDA Start: 10-07-2017 [facility] MODU LAR HIP SYSTM FDA Start: 10-07-2017 RESTORE ANATOMIC GONZÁLEZ SHELL FDA Start: 10-07-2017 explant full blade FDA Start: 10-07-2017 mabel explant truncated blade FDA Start: 10-07-2017 LFIT 40 FEMORAL HEAD FDA Star t: 10-07-2017 MDM CEMENTLESS LINER FDA Star t: 10-07-2017 [facility] ADM/ MDM INSERT FDA Start: 10-07-2017 [facility] GAP PLATE SCREW FDA Start: 10-07-2017 [facility] GAP PLATE SCREW FDA Start: 10-07-2017 [facility] GAP PLATE SCREW FDA Start: 10-07-2017 [facility] GAP PLATE SCREW FDA Start: 10-07-2017 [facility] GAP PLATE SCREW FDA Start: 10-07-2017 3.3MM DRILL BIT FDA Start: 10-07-2017 [facility] GAP PLATE SCREW FDA Start: 10-07-2017 [facility] MODU LAR HIP SYSTM FDA Start: 10-07-2017 RESTORE ANATOMIC GONZÁLEZ SHELL FDA Start: 10-07-2017 explant full blade FDA Start: 10-07-2017 mabel explant truncated blade FDA Start: 10-07-2017 LFIT 40 FEMORAL HEAD FDA Star t: 10-07-2017 MDM CEMENTLESS LINER FDA Star t: 10-07-2017 [facility] ADM/ MDM INSERT FDA Start: 10-07-2017 [facility] GAP PLATE SCREW FDA Start: 10-07-2017 [facility] GAP PLATE SCREW FDA Start: 10-07-2017 [facility] GAP PLATE SCREW FDA Start: 10-07-2017 [facility] GAP PLATE SCREW FDA Start: 10-07-2017 [facility] GAP PLATE SCREW FDA Start: 10-07-2017 3.3MM DRILL BIT FDA Start: 10-07-2017 [facility] GAP PLATE SCREW FDA Start: 10-07-2017 [facility] MODU LAR HIP SYSTM FDA Start: 10-07-2017 RESTORE ANATOMIC GONZÁLEZ SHELL FDA Start: 10-07-2017 explant full blade FDA Start: 10-07-2017 mabel explant truncated blade FDA Start: 10-07-2017 LFIT 40 FEMORAL HEAD FDA Star t: 10-07-2017 MDM CEMENTLESS LINER FDA Star t: 10-07-2017 [facility] ADM/ MDM INSERT FDA Start: 10-07-2017 [facility] GAP PLATE SCREW FDA Start: 10-07-2017 [facility] GAP PLATE SCREW FDA Start: 10-07-2017 [facility] GAP PLATE SCREW FDA Start: 10-07-2017 [facility] GAP PLATE SCREW FDA Start: 10-07-2017 [facility] GAP PLATE SCREW FDA Start: 10-07-2017 3.3MM DRILL BIT FDA Start: 10-07-2017 [facility] GAP PLATE SCREW FDA Start: 10-07-2017 [facility] MODU LAR HIP SYSTM FDA Start: 10-07-2017 RESTORE ANATOMIC GONZÁLEZ SHELL FDA Start: 10-07-2017 explant full blade FDA Start: 10-07-2017 mabel explant truncated blade FDA Start: 10-07-2017 LFIT 40 FEMORAL HEAD FDA Star t: 10-07-2017 MDM CEMENTLESS LINER FDA Star t: 10-07-2017 [facility] ADM/ MDM INSERT FDA Start: 10-07-2017 [facility] GAP PLATE SCREW FDA Start: 10-07-2017 [facility] GAP PLATE SCREW FDA Start: 10-07-2017 [facility] GAP PLATE SCREW FDA Start: 10-07-2017 [facility] GAP PLATE SCREW FDA Start: 10-07-2017 [facility] GAP PLATE SCREW FDA Start: 10-07-2017 3.3MM DRILL BIT FDA Start: 10-07-2017 [facility] GAP PLATE SCREW FDA Start: 10-07-2017 [facility] MODU LAR HIP SYSTM FDA Start: 10-07-2017 RESTORE ANATOMIC GONZÁLEZ SHELL FDA Start: 10-07-2017 explant full blade FDA Start: 10-07-2017 mabel explant truncated blade FDA Start: 10-07-2017 LFIT 40 FEMORAL HEAD FDA Star t: 10-07-2017 MDM CEMENTLESS LINER FDA Star t: 10-07-2017 [facility] ADM/ MDM INSERT FDA Start: 10-07-2017 [facility] GAP PLATE SCREW FDA Start: 10-07-2017 [facility] GAP PLATE SCREW FDA Start: 10-07-2017 [facility] GAP PLATE SCREW FDA Start: 10-07-2017 [facility] GAP PLATE SCREW FDA Start: 10-07-2017 [facility] GAP PLATE SCREW FDA Start: 10-07-2017 3.3MM DRILL BIT FDA Start: 12-20-2017 [facility] GAP PLATE SCREW FDA Start: 10-07-2017 [facility] MODU LAR HIP SYSTM FDA Start: 10-07-2017 RESTORE ANATOMIC GONZÁLEZ SHELL FDA Start: 10-07-2017 explant full blade FDA Start: 10-07-2017 mabel explant truncated blade FDA Start: 10-07-2017 LFIT 40 FEMORAL HEAD FDA Star t: 10-07-2017 MDM CEMENTLESS LINER FDA Star t: 10-07-2017 [facility] ADM/ MDM INSERT FDA Start: 10-07-2017 [facility] GAP PLATE SCREW FDA Start: 10-07-2017 [facility] GAP PLATE SCREW FDA Start: 10-07-2017 [facility] GAP PLATE SCREW FDA Start: 10-07-2017 [facility] GAP PLATE SCREW FDA Start: 10-07-2017 Z[facility] GAP PLATE SCREW FDA Start: 10-07-2017 3.3MM DRILL BIT FDA Start: 10-07-2017 [facility] GAP PLATE SCREW FDA Start: 10-07-2017 [facility] MODU LAR HIP SYSTM FDA Start: 10-07-2017 RESTORE ANATOMIC GONZÁLEZ SHELL FDA Start: 10-07-2017 explant full blade FDA Start: 10-07-2017 mabel explant truncated blade FDA Start: 10-07-2017 LFIT 40 FEMORAL HEAD FDA Star t: 10-07-2017 MDM CEMENTLESS LINER FDA Star t: 10-07-2017 [facility] ADM/ MDM INSERT FDA Start: 10-07-2017 [facility] GAP PLATE SCREW FDA Start: 10-07-2017 [facility] GAP PLATE SCREW FDA Start: 10-07-2017 [facility] GAP PLATE SCREW FDA Start: 10-07-2017 [facility] GAP PLATE SCREW FDA Start: 10-07-2017 [facility] GAP PLATE SCREW FDA Start: 10-07-2017 3.3MM DRILL BIT FDA Start: 10-07-2017 [facility] GAP PLATE SCREW FDA Start: 10-07-2017 [facility] MODU LAR HIP SYSTM FDA Start: 10-07-2017 RESTORE ANATOMIC GONZÁLEZ SHELL FDA Start: 10-07-2017 explant full blade FDA Start: 10-07-2017 mabel explant truncated blade FDA Start: 10-07-2017 LFIT 40 FEMORAL HEAD FDA Star t: 10-07-2017 MDM CEMENTLESS LINER FDA Star t: 10-07-2017 [facility] ADM/ MDM INSERT FDA Start: 10-07-2017 [facility] GAP PLATE SCREW FDA Start: 10-07-2017 [facility] GAP PLATE SCREW FDA Start: 10-07-2017 [facility] GAP PLATE SCREW FDA Start: 10-07-2017 [facility] GAP PLATE SCREW FDA Start: 10-07-2017 [facility] GAP PLATE SCREW FDA Start: 10-07-2017 3.3MM DRILL BIT FDA Start: 10-07-2017 [facility] GAP PLATE SCREW FDA Start: 10-07-2017 [facility] MODU LAR HIP SYSTM FDA Start: 10-07-2017 RESTORE ANATOMIC GONZÁLEZ SHELL FDA Start: 10-07-2017 explant full blade FDA Start: 10-07-2017 mabel explant truncated blade FDA Start: 10-07-2017 LFIT 40 FEMORAL HEAD FDA Star t: 10-07-2017 MDM CEMENTLESS LINER FDA Star t: 10-07-2017 [facility] ADM/ MDM INSERT FDA Start: 10-07-2017 Z[facility] GAP PLATE SCREW FDA Start: 10-07-2017 Z[facility] GAP PLATE SCREW FDA Start: 10-07-2017 [facility] GAP PLATE SCREW FDA Start: 10-07-2017 [facility] GAP PLATE SCREW FDA Start: 10-07-2017 [facility] GAP PLATE SCREW FDA Start: 10-07-2017 3.3MM DRILL BIT FDA Start: 10-07-2017 [facility] GAP PLATE SCREW FDA Start: 10-07-2017 [facility] MODU LAR HIP SYSTM FDA Start: 10-07-2017 RESTORE ANATOMIC GONZÁLEZ SHELL FDA Start: 10-07-2017 explant full blade FDA Start: 10-07-2017 mabel explant truncated blade FDA Start: 10-07-2017 LFIT 40 FEMORAL HEAD FDA Star t: 10-07-2017 MDM CEMENTLESS LINER FDA Star t: 10-07-2017 [facility] ADM/ MDM INSERT FDA Start: 10-07-2017 [facility] GAP PLATE SCREW FDA Start: 10-07-2017 [facility] GAP PLATE SCREW FDA Start: 10-07-2017 [facility] GAP PLATE SCREW FDA Start: 10-07-2017 [facility] GAP PLATE SCREW FDA Start: 10-07-2017 [facility] GAP PLATE SCREW FDA Start: 10-07-2017 3.3MM DRILL BIT FDA Start: 10-07-2017 [facility] GAP PLATE SCREW FDA Start: 10-07-2017 [facility] MODU LAR HIP SYSTM FDA Start: 10-07-2017 RESTORE ANATOMIC GONZÁLEZ SHELL FDA Start: 10-07-2017 explant full blade FDA Start: 10-07-2017 mabel explant truncated blade FDA Start: 10-07-2017 LFIT 40 FEMORAL HEAD FDA Star t: 10-07-2017 MDM CEMENTLESS LINER FDA Star t: 10-07-2017 [facility] ADM/ MDM INSERT FDA Start: 10-07-2017 [facility] GAP PLATE SCREW FDA Start: 10-07-2017 [facility] GAP PLATE SCREW FDA Start: 10-07-2017 [facility] GAP PLATE SCREW FDA Start: 10-07-2017 [facility] GAP PLATE SCREW FDA Start: 10-07-2017 [facility] GAP PLATE SCREW FDA Start: 10-07-2017 3.3MM DRILL BIT FDA Start: 10-07-2017 [facility] GAP PLATE SCREW FDA Start: 10-07-2017 [facility] MODU LAR HIP SYSTM FDA Start: 10-07-2017 RESTORE ANATOMIC GONZÁLEZ SHELL FDA Start: 10-07-2017 explant full blade FDA Start: 10-07-2017 mabel explant truncated blade FDA Start: 10-07-2017 LFIT 40 FEMORAL HEAD FDA Star t: 10-07-2017 MDM CEMENTLESS LINER FDA Star t: 10-07-2017 [facility] ADM/ MDM INSERT FDA Start: 10-07-2017 Z[facility] GAP PLATE SCREW FDA Start: 10-07-2017 [facility] GAP PLATE SCREW FDA Start: 10-07-2017 Z[facility] GAP PLATE SCREW FDA Start: 10-07-2017 Z[facility] GAP PLATE SCREW FDA Start: 10-07-2017 ZORO[facility]AN GAP PLATE SCREW FDA Start: 10-07-2017 3.3MM DRILL BIT FDA Start: 10-07-2017 Z[facility] GAP PLATE SCREW FDA Start: 10-07-2017 [facility] MODU LAR HIP SYSTM FDA Start: 10-07-2017 RESTORE ANATOMIC GONZÁLEZ SHELL FDA Start: 10-07-2017 explant full blade FDA Start: 10-07-2017 mabel explant truncated blade FDA Start: 10-07-2017 LFIT 40 FEMORAL HEAD FDA Star t: 10-07-2017 MDM CEMENTLESS LINER FDA Star t: 10-07-2017 [facility] ADM/ MDM INSERT FDA Start: 10-07-2017 Z[facility] GAP PLATE SCREW FDA Start: 10-07-2017 Z[facility] GAP PLATE SCREW FDA Start: 10-07-2017 [facility] GAP PLATE SCREW FDA Start: 10-07-2017 [facility] GAP PLATE SCREW FDA Start: 10-07-2017 Z[facility] GAP PLATE SCREW FDA Start: 10-07-2017 3.3MM DRILL BIT FDA Start: 10-07-2017 Z[facility] GAP PLATE SCREW FDA Start: 10-07-2017 Z[facility] MODU LAR HIP SYSTM FDA Start: 10-07-2017 RESTORE ANATOMIC GNOZÁLEZ SHELL FDA Start: 10-07-2017 explant full blade FDA Start: 10-07-2017 mabel explant truncated blade FDA Start: 10-07-2017 LFIT 40 FEMORAL HEAD FDA Star t: 10-07-2017 MDM CEMENTLESS LINER FDA Star t: 10-07-2017 Z[facility] ADM/ MDM INSERT FDA Start: 10-07-2017 Z[facility] GAP PLATE SCREW FDA Start: 10-07-2017 Z[facility] GAP PLATE SCREW FDA Start: 10-07-2017 Z[facility] GAP PLATE SCREW FDA Start: 10-07-2017 [facility] GAP PLATE SCREW FDA Start: 10-07-2017 Z[facility]AN GAP PLATE SCREW FDA Start: 10-07-2017 3.3MM DRILL BIT FDA Start: 10-07-2017 Z[facility] GAP PLATE SCREW FDA Start: 10-07-2017 Z[facility] MODU LAR HIP SYSTM FDA Start: 10-07-2017 RESTORE ANATOMIC GONZÁLEZ SHELL FDA Start: 10-07-2017 explant full blade FDA Start: 10-07-2017 mabel explant truncated blade FDA Start: 10-07-2017 LFIT 40 FEMORAL HEAD FDA Star t: 10-07-2017 MDM CEMENTLESS LINER FDA Star t: 10-07-2017 ZORO[facility]AN ADM/ MDM INSERT FDA Start: 10-07-2017 ZOROAST[facility]AN GAP PLATE SCREW FDA Start: 10-07-2017 ZORO[facility]AN GAP PLATE SCREW FDA Start: 10-07-2017 ZORO[facility]AN GAP PLATE SCREW FDA Start: 10-07-2017 Z[facility] GAP PLATE SCREW FDA Start: 10-07-2017 ZORO[facility]AN GAP PLATE SCREW FDA Start: 10-07-2017 3.3MM DRILL BIT FDA Start: 10-07-2017 Z[facility] GAP PLATE SCREW FDA Start: 10-07-2017 Z[facility] MODU LAR HIP SYSTM FDA Start: 10-07-2017 RESTORE ANATOMIC GONZÁLEZ SHELL FDA Start: 10-07-2017 explant full blade FDA Start: 10-07-2017 mabel explant truncated blade FDA Start: 10-07-2017 LFIT 40 FEMORAL HEAD FDA Star t: 10-07-2017 MDM CEMENTLESS LINER FDA Star t: 10-07-2017 ZORO[facility]AN ADM/ MDM INSERT FDA Start: 10-07-2017 ZORO[facility]AN GAP PLATE SCREW FDA Start: 10-07-2017 ZOR[facility] GAP PLATE SCREW FDA Start: 10-07-2017 ZORO[facility] GAP PLATE SCREW FDA Start: 10-07-2017 ZOROAST[facility]AN GAP PLATE SCREW FDA Start: 10-07-2017 ZOROAST[facility]AN GAP PLATE SCREW FDA Start: 10-07-2017 3.3MM DRILL BIT FDA Start: 10-07-2017 ZORO[facility]AN GAP PLATE SCREW FDA Start: 10-07-2017 ZORO[facility] MODU LAR HIP SYSTM FDA Start: 10-07-2017 RESTORE ANATOMIC GONZÁLEZ SHELL FDA Start: 10-07-2017 explant full blade FDA Start: 10-07-2017 mabel explant truncated blade FDA Start: 10-07-2017 LFIT 40 FEMORAL HEAD FDA Star t: 10-07-2017 MDM CEMENTLESS LINER FDA Star t: 10-07-2017 ZOROASTRIAN ADM/ MDM INSERT FDA Start: 10-07-2017 ZOROAST[facility]AN GAP PLATE SCREW FDA Start: 10-07-2017 ZORO[facility] GAP PLATE SCREW FDA Start: 10-07-2017 ZORO[facility] GAP PLATE SCREW FDA Start: 10-07-2017 ZORO[facility] GAP PLATE SCREW FDA Start: 10-07-2017 ZORO[facility]AN GAP PLATE SCREW FDA Start: 10-07-2017 3.3MM DRILL BIT FDA Start: 10-07-2017 ZORO[facility] GAP PLATE SCREW FDA Start: 10-07-2017 ZOROAST[facility] MODU LAR HIP SYSTM FDA Start: 10-07-2017 RESTORE ANATOMIC GONZÁLEZ SHELL FDA Start: 10-07-2017 explant full blade FDA Start: 10-07-2017 mabel explant truncated blade FDA Start: 10-07-2017 LFIT 40 FEMORAL HEAD FDA Star t: 10-07-2017 MDM CEMENTLESS LINER FDA Star t: 10-07-2017 ZOROAST[facility]AN ADM/ MDM INSERT FDA Start: 10-07-2017 ZOROAST[facility]AN GAP PLATE SCREW FDA Start: 10-07-2017 ZOR[facility]AN GAP PLATE SCREW FDA Start: 10-07-2017 ZORO[facility] GAP PLATE SCREW FDA Start: 10-07-2017 ZORO[facility]AN GAP PLATE SCREW FDA Start: 10-07-2017 ZORO[facility]AN GAP PLATE SCREW FDA Start: 10-07-2017 3.3MM DRILL BIT FDA Start: 10-07-2017 ZORO[facility]AN GAP PLATE SCREW FDA Start: 10-07-2017 ZORO[facility] MODU LAR HIP SYSTM FDA Start: 10-07-2017 RESTORE ANATOMIC GONZÁLEZ SHELL FDA Start: 10-07-2017 explant full blade FDA Start: 10-07-2017 mabel explant truncated blade FDA Start: 10-07-2017 LFIT 40 FEMORAL HEAD FDA Star t: 10-07-2017 MDM CEMENTLESS LINER FDA Star t: 10-07-2017 Z[facility]AN ADM/ MDM INSERT FDA Start: 10-07-2017 ZOROASTRIAN GAP PLATE SCREW FDA Start: 10-07-2017 ZORO[facility]AN GAP PLATE SCREW FDA Start: 10-07-2017 ZORO[facility]AN GAP PLATE SCREW FDA Start: 10-07-2017 ZORO[facility]AN GAP PLATE SCREW FDA Start: 10-07-2017 ZORO[facility]AN GAP PLATE SCREW FDA Start: 10-07-2017 3.3MM DRILL BIT FDA Start: 10-07-2017 ZORO[facility]AN GAP PLATE SCREW FDA Start: 10-07-2017 ZORO[facility] MODU LAR HIP SYSTM FDA Start: 10-07-2017 RESTORE ANATOMIC GONZÁLEZ SHELL FDA Start: 10-07-2017 explant full blade FDA Start: 10-07-2017 mabel explant truncated blade FDA Start: 10-07-2017 LFIT 40 FEMORAL HEAD FDA Star t: 10-07-2017 MDM CEMENTLESS LINER FDA Star t: 10-07-2017 ZORO[facility]AN ADM/ MDM INSERT FDA Start: 10-07-2017 ZOROAST[facility]AN GAP PLATE SCREW FDA Start: 10-07-2017 ZORO[facility]AN GAP PLATE SCREW FDA Start: 10-07-2017 ZORO[facility] GAP PLATE SCREW FDA Start: 10-07-2017 ZOR[facility] GAP PLATE SCREW FDA Start: 10-07-2017 ZORO[facility]AN GAP PLATE SCREW FDA Start: 10-07-2017 3.3MM DRILL BIT FDA Start: 10-07-2017 ZORO[facility] GAP PLATE SCREW FDA Start: 10-07-2017 ZORO[facility] MODU LAR HIP SYSTM FDA Start: 10-07-2017 RESTORE ANATOMIC GONZÁLEZ SHELL FDA Start: 10-07-2017 explant full blade FDA Start: 10-07-2017 mabel explant truncated blade FDA Start: 10-07-2017 LFIT 40 FEMORAL HEAD FDA Star t: 10-07-2017 MDM CEMENTLESS LINER FDA Star t: 10-07-2017 Z[facility] ADM/ MDM INSERT FDA Start: 10-07-2017 ZOROAST[facility]AN GAP PLATE SCREW FDA Start: 10-07-2017 ZORO[facility]AN GAP PLATE SCREW FDA Start: 10-07-2017 ZORO[facility]AN GAP PLATE SCREW FDA Start: 10-07-2017 ZORO[facility] GAP PLATE SCREW FDA Start: 10-07-2017 ZORO[facility]AN GAP PLATE SCREW FDA Start: 10-07-2017 3.3MM DRILL BIT FDA Start: 10-07-2017 ZORO[facility]AN GAP PLATE SCREW FDA Start: 10-07-2017 Z[facility] MODU LAR HIP SYSTM FDA Start: 10-07-2017 RESTORE ANATOMIC GONZÁLEZ SHELL FDA Start: 10-07-2017 explant full blade FDA Start: 10-07-2017 mabel explant truncated blade FDA Start: 10-07-2017 LFIT 40 FEMORAL HEAD FDA Star t: 10-07-2017 MDM CEMENTLESS LINER FDA Star t: 10-07-2017 Z[facility]AN ADM/ MDM INSERT FDA Start: 10-07-2017 Z[facility] GAP PLATE SCREW FDA Start: 10-07-2017 ZORO[facility] GAP PLATE SCREW FDA Start: 10-07-2017 ZOROASTRIAN GAP PLATE SCREW FDA Start: 10-07-2017 ZOROASTRIAN GAP PLATE SCREW FDA Start: 10-07-2017 ZOROASTRIAN GAP PLATE SCREW FDA Start: 10-07-2017 [facility] - [id number] Start: 08-23-2014 Comment on above: Description: 2.4 MM VA-LCP TWO COLUMN DISTAL RADIUS PLATE TH/3H, RT. Screw Bn 2.4mm 1 8mm Lcp Ss - [id number] Start: 08-23-2014 Screw Bn 2.4mm 2 4mm Lcp Ss - [id number] Start: 08-23-2014 Screw Bn 2.4mm 2 2mm Lcp Ss - [id number] Start: 08-23-2014 Screw Bn 2.4mm 2 0mm Lcp Ss - [id number] Start: 08-23-2014 3.3MM DRILL BIT FDA Start: 10-07-2017 ZOROASTRIAN GAP PLATE SCREW FDA Start: 10-07-2017 ZOROASTRIAN MODU LAR HIP SYSTM FDA Start: 10-07-2017 RESTORE ANATOMIC GONZÁLEZ SHELL FDA Start: 10-07-2017 explant full blade FDA Start: 10-07-2017 mabel explant truncated blade FDA Start: 10-07-2017 LFIT 40 FEMORAL HEAD FDA Star t: 10-07-2017 MDM CEMENTLESS LINER FDA Star t: 10-07-2017 ZOROAST[facility]AN ADM/ MDM INSERT FDA Start: 10-07-2017 ZOROASTRIAN GAP PLATE SCREW FDA Start: 10-07-2017 ZOROAST[facility]AN GAP PLATE SCREW FDA Start: 10-07-2017 ZOROASTRIAN GAP PLATE SCREW FDA Start: 10-07-2017 ZOROASTRIAN GAP PLATE SCREW FDA Start: 10-07-2017 [facility] GAP PLATE SCREW FDA Start: 10-07-2017 3.3MM DRILL BIT FDA Start: 10-07-2017 [facility] GAP PLATE SCREW FDA Start: 10-07-2017 Z[facility]AN MODU LAR HIP SYSTM FDA Start: 10-07-2017 RESTORE ANATOMIC GONZÁLEZ SHELL FDA Start: 10-07-2017 explant full blade FDA Start: 10-07-2017 mabel explant truncated blade FDA Start: 10-07-2017 LFIT 40 FEMORAL HEAD FDA Star t: 10-07-2017 MDM CEMENTLESS LINER FDA Star t: 10-07-2017 Z[facility] ADM/ MDM INSERT FDA Start: 10-07-2017 [facility] GAP PLATE SCREW FDA Start: 10-07-2017 [facility] GAP PLATE SCREW FDA Start: 10-07-2017 ZORO[facility] GAP PLATE SCREW FDA Start: 10-07-2017 ZORO[facility] GAP PLATE SCREW FDA Start: 10-07-2017 ZORO[facility] GAP PLATE SCREW FDA Start: 10-07-2017 3.3MM DRILL BIT FDA Start: 10-07-2017 [facility] GAP PLATE SCREW FDA Start: 10-07-2017 ZORO[facility] MODU LAR HIP SYSTM FDA Start: 10-07-2017 RESTORE ANATOMIC GONZÁLEZ SHELL FDA Start: 10-07-2017 explant full blade FDA Start: 10-07-2017 mabel explant truncated blade FDA Start: 10-07-2017 LFIT 40 FEMORAL HEAD FDA Star t: 10-07-2017 MDM CEMENTLESS LINER FDA Star t: 10-07-2017 ZORO[facility]AN ADM/ MDM INSERT FDA Start: 10-07-2017 [facility] GAP PLATE SCREW FDA Start: 10-07-2017 [facility] GAP PLATE SCREW FDA Start: 10-07-2017 Z[facility] GAP PLATE SCREW FDA Start: 10-07-2017 [facility] GAP PLATE SCREW FDA Start: 10-07-2017 [facility] GAP PLATE SCREW FDA Start: 10-07-2017 3.3MM DRILL BIT FDA Start: 10-07-2017 ZOR[facility] GAP PLATE SCREW FDA Start: 10-07-2017 ZORO[facility] MODU LAR HIP SYSTM FDA Start: 10-07-2017 RESTORE ANATOMIC GONZÁLEZ SHELL FDA Start: 10-07-2017 explant full blade FDA Start: 10-07-2017 mabel explant truncated blade FDA Start: 10-07-2017 LFIT 40 FEMORAL HEAD FDA Star t: 10-07-2017 MDM CEMENTLESS LINER FDA Star t: 10-07-2017 ZORO[facility] ADM/ MDM INSERT FDA Start: 10-07-2017 ZORO[facility] GAP PLATE SCREW FDA Start: 10-07-2017 Z[facility] GAP PLATE SCREW FDA Start: 10-07-2017 Z[facility] GAP PLATE SCREW FDA Start: 10-07-2017 ZORO[facility] GAP PLATE SCREW FDA Start: 10-07-2017 ZORO[facility] GAP PLATE SCREW FDA Start: 10-07-2017 3.3MM DRILL BIT FDA Start: 10-07-2017 ZOR[facility] GAP PLATE SCREW FDA Start: 10-07-2017 ZORO[facility] MODU LAR HIP SYSTM FDA Start: 10-07-2017 RESTORE ANATOMIC GONZÁLEZ SHELL FDA Start: 10-07-2017 explant full blade FDA Start: 10-07-2017 mabel explant truncated blade FDA Start: 10-07-2017 LFIT 40 FEMORAL HEAD FDA Star t: 10-07-2017 MDM CEMENTLESS LINER FDA Star t: 10-07-2017 ZOROASTRIAN ADM/ MDM INSERT FDA Start: 10-07-2017 ZORO[facility] GAP PLATE SCREW FDA Start: 10-07-2017 ZORO[facility] GAP PLATE SCREW FDA Start: 10-07-2017 ZORO[facility] GAP PLATE SCREW FDA Start: 10-07-2017 ZOR[facility] GAP PLATE SCREW FDA Start: 10-07-2017 ZORO[facility] GAP PLATE SCREW FDA Start: 10-07-2017 3.3MM DRILL BIT FDA Start: 10-07-2017 ZORO[facility] GAP PLATE SCREW FDA Start: 10-07-2017 ZORO[facility] MODU LAR HIP SYSTM FDA Start: 10-07-2017 RESTORE ANATOMIC GONZÁLEZ SHELL FDA Start: 10-07-2017 explant full blade FDA Start: 10-07-2017 mabel explant truncated blade FDA Start: 10-07-2017 LFIT 40 FEMORAL HEAD FDA Star t: 10-07-2017 MDM CEMENTLESS LINER FDA Star t: 10-07-2017 Z[facility] ADM/ MDM INSERT FDA Start: 10-07-2017 ZORO[facility] GAP PLATE SCREW FDA Start: 10-07-2017 ZOR[facility] GAP PLATE SCREW FDA Start: 10-07-2017 ZOR[facility] GAP PLATE SCREW FDA Start: 10-07-2017 [facility] GAP PLATE SCREW FDA Start: 10-07-2017 [facility]OR[facility] GAP PLATE SCREW FDA Start: 10-07-2017 3.3MM DRILL BIT FDA Start: 10-07-2017 [facility] GAP PLATE SCREW FDA Start: 10-07-2017 [facility] MODU LAR HIP SYSTM FDA Start: 10-07-2017 RESTORE ANATOMIC GONZÁLEZ SHELL FDA Start: 10-07-2017 explant full blade FDA Start: 10-07-2017 mabel explant truncated blade FDA Start: 10-07-2017 LFIT 40 FEMORAL HEAD FDA Star t: 10-07-2017 MDM CEMENTLESS LINER FDA Star t: 10-07-2017 ZOROASTRIAN ADM/ MDM INSERT FDA Start: 10-07-2017 ZOROASTRIAN GAP PLATE SCREW FDA Start: 10-07-2017 ZOROASTRIAN GAP PLATE SCREW FDA Start: 10-07-2017 ZOROASTRIAN GAP PLATE SCREW FDA Start: 10-07-2017 ZOROASTRIAN GAP PLATE SCREW FDA Start: 10-07-2017 ZOROASTRIAN GAP PLATE SCREW FDA Start: 10-07-2017 3.3MM DRILL BIT FDA Start: 10-07-2017 ZOROASTRIAN GAP PLATE SCREW FDA Start: 10-07-2017 ZOROASTRIAN MODU LAR HIP SYSTM FDA Start: 10-07-2017 RESTORE ANATOMIC GONZÁLEZ SHELL FDA Start: 10-07-2017 explant full blade FDA Start: 10-07-2017 mabel explant truncated blade FDA Start: 10-07-2017 LFIT 40 FEMORAL HEAD FDA Star t: 10-07-2017 MDM CEMENTLESS LINER FDA Star t: 10-07-2017 ZOROASTRIAN ADM/ MDM INSERT FDA Start: 10-07-2017 ZOROASTRIAN GAP PLATE SCREW FDA Start: 10-07-2017 ZOROASTRIAN GAP PLATE SCREW FDA Start: 10-07-2017 ZOROASTRIAN GAP PLATE SCREW FDA Start: 10-07-2017 ZOROASTRIAN GAP PLATE SCREW FDA Start: 10-07-2017 ZOROASTRIAN GAP PLATE SCREW FDA Start: 10-07-2017 3.3MM DRILL BIT FDA Start: 10-07-2017 ZOROASTRIAN GAP PLATE SCREW FDA Start: 10-07-2017 ZOROASTRIAN MODU LAR HIP SYSTM FDA Start: 10-07-2017 RESTORE ANATOMIC GONZÁLEZ SHELL FDA Start: 10-07-2017 explant full blade FDA Start: 10-07-2017 mabel explant truncated blade FDA Start: 10-07-2017 LFIT 40 FEMORAL HEAD FDA Star t: 10-07-2017 MDM CEMENTLESS LINER FDA Star t: 10-07-2017 ZOROASTRIAN ADM/ MDM INSERT FDA Start: 10-07-2017 ZOROASTRIAN GAP PLATE SCREW FDA Start: 10-07-2017 ZOROASTRIAN GAP PLATE SCREW FDA Start: 10-07-2017 ZOROASTRIAN GAP PLATE SCREW FDA Start: 10-07-2017 ZOROASTRIAN GAP PLATE SCREW FDA Start: 10-07-2017 ZOROASTRIAN GAP PLATE SCREW FDA Start: 10-07-2017 3.3MM DRILL BIT FDA Start: 10-07-2017 ZOROASTRIAN GAP PLATE SCREW FDA Start: 10-07-2017 ZOROASTRIAN MODU LAR HIP SYSTM FDA Start: 10-07-2017 RESTORE ANATOMIC GONZÁLEZ SHELL FDA Start: 10-07-2017 explant full blade FDA Start: 10-07-2017 mabel explant truncated blade FDA Start: 10-07-2017 LFIT 40 FEMORAL HEAD FDA Star t: 10-07-2017 MDM CEMENTLESS LINER FDA Star t: 10-07-2017 ZOROASTRIAN ADM/ MDM INSERT FDA Start: 10-07-2017 ZOROASTRIAN GAP PLATE SCREW FDA Start: 10-07-2017 ZOROASTRIAN GAP PLATE SCREW FDA Start: 10-07-2017 ZOROASTRIAN GAP PLATE SCREW FDA Start: 10-07-2017 ZOROASTRIAN GAP PLATE SCREW FDA Start: 10-07-2017 ZOROASTRIAN GAP PLATE SCREW FDA Start: 10-07-2017 3.3MM DRILL BIT FDA Start: 10-07-2017 ZOROASTRIAN GAP PLATE SCREW FDA Start: 10-07-2017 ZOROASTRIAN MODU LAR HIP SYSTM FDA Start: 10-07-2017 RESTORE ANATOMIC GONZÁLEZ SHELL FDA Start: 10-07-2017 explant full blade FDA Start: 10-07-2017 mabel explant truncated blade FDA Start: 10-07-2017 LFIT 40 FEMORAL HEAD FDA Star t: 10-07-2017 MDM CEMENTLESS LINER FDA Star t: 10-07-2017 ZOROASTRIAN ADM/ MDM INSERT FDA Start: 10-07-2017 ZOROASTRIAN GAP PLATE SCREW FDA Start: 10-07-2017 ZOROASTRIAN GAP PLATE SCREW FDA Start: 10-07-2017 ZOROASTRIAN GAP PLATE SCREW FDA Start: 10-07-2017 ZOROASTRIAN GAP PLATE SCREW FDA Start: 10-07-2017 ZOROASTRIAN GAP PLATE SCREW FDA Start: 10-07-2017 3.3MM DRILL BIT FDA Start: 10-07-2017 ZOROASTRIAN GAP PLATE SCREW FDA Start: 10-07-2017 ZOROASTRIAN MODU LAR HIP SYSTM FDA Start: 10-07-2017 RESTORE ANATOMIC GONZÁLEZ SHELL FDA Start: 10-07-2017 explant full blade FDA Start: 10-07-2017 mabel explant truncated blade FDA Start: 10-07-2017 LFIT 40 FEMORAL HEAD FDA Star t: 10-07-2017 MDM CEMENTLESS LINER FDA Star t: 10-07-2017 ZOROASTRIAN ADM/ MDM INSERT FDA Start: 10-07-2017 ZOROASTRIAN GAP PLATE SCREW FDA Start: 10-07-2017 ZOROASTRIAN GAP PLATE SCREW FDA Start: 10-07-2017 ZOROASTRIAN GAP PLATE SCREW FDA Start: 10-07-2017 ZOROASTRIAN GAP PLATE SCREW FDA Start: 10-07-2017 ZOROASTRIAN GAP PLATE SCREW FDA Start: 10-07-2017 3.3MM DRILL BIT FDA Start: 10-07-2017 ZOROASTRIAN GAP PLATE SCREW FDA Start: 10-07-2017 ZOROASTRIAN MODU LAR HIP SYSTM FDA Start: 10-07-2017 RESTORE ANATOMIC GONZÁLEZ SHELL FDA Start: 10-07-2017 explant full blade FDA Start: 10-07-2017 mabel explant truncated blade FDA Start: 10-07-2017 LFIT 40 FEMORAL HEAD FDA Star t: 10-07-2017 MDM CEMENTLESS LINER FDA Star t: 10-07-2017 ZOROASTRIAN ADM/ MDM INSERT FDA Start: 10-07-2017 ZOROASTRIAN GAP PLATE SCREW FDA Start: 10-07-2017 ZOROASTRIAN GAP PLATE SCREW FDA Start: 10-07-2017 ZOROASTRIAN GAP PLATE SCREW FDA Start: 10-07-2017 ZOROASTRIAN GAP PLATE SCREW FDA Start: 10-07-2017 ZOROASTRIAN GAP PLATE SCREW FDA Start: 10-07-2017 3.3MM DRILL BIT FDA Start: 10-07-2017 ZOROASTRIAN GAP PLATE SCREW FDA Start: 10-07-2017 ZOROASTRIAN MODU LAR HIP SYSTM FDA Start: 10-07-2017 RESTORE ANATOMIC GONZÁLEZ SHELL FDA Start: 10-07-2017 explant full blade FDA Start: 10-07-2017 mabel explant truncated blade FDA Start: 10-07-2017 LFIT 40 FEMORAL HEAD FDA Star t: 10-07-2017 MDM CEMENTLESS LINER FDA Star t: 10-07-2017 ZOROASTRIAN ADM/ MDM INSERT FDA Start: 10-07-2017 ZOROASTRIAN GAP PLATE SCREW FDA Start: 10-07-2017 ZOROASTRIAN GAP PLATE SCREW FDA Start: 10-07-2017 ZOROASTRIAN GAP PLATE SCREW FDA Start: 10-07-2017 ZOROASTRIAN GAP PLATE SCREW FDA Start: 10-07-2017 ZOROASTRIAN GAP PLATE SCREW FDA Start: 10-07-2017 3.3MM DRILL BIT FDA Start: 10-07-2017 ZOROASTRIAN GAP PLATE SCREW FDA Start: 10-07-2017 ZOROASTRIAN MODU LAR HIP SYSTM FDA Start: 10-07-2017 RESTORE ANATOMIC GONZÁLEZ SHELL FDA Start: 10-07-2017 explant full blade FDA Start: 10-07-2017 mabel explant truncated blade FDA Start: 10-07-2017 LFIT 40 FEMORAL HEAD FDA Star t: 10-07-2017 MDM CEMENTLESS LINER FDA Star t: 10-07-2017 ZOROASTRIAN ADM/ MDM INSERT FDA Start: 10-07-2017 ZOROASTRIAN GAP PLATE SCREW FDA Start: 10-07-2017 ZOROASTRIAN GAP PLATE SCREW FDA Start: 10-07-2017 ZOROASTRIAN GAP PLATE SCREW FDA Start: 10-07-2017 ZOROASTRIAN GAP PLATE SCREW FDA Start: 10-07-2017 ZOROASTRIAN GAP PLATE SCREW FDA Start: 10-07-2017 3.3MM DRILL BIT FDA Start: 10-07-2017 ZOROASTRIAN GAP PLATE SCREW FDA Start: 10-07-2017 ZOROASTRIAN MODU LAR HIP SYSTM FDA Start: 10-07-2017 RESTORE ANATOMIC GONZÁLEZ SHELL FDA Start: 10-07-2017 explant full blade FDA Start: 10-07-2017 mabel explant truncated blade FDA Start: 10-07-2017 LFIT 40 FEMORAL HEAD FDA Star t: 10-07-2017 MDM CEMENTLESS LINER FDA Star t: 10-07-2017 ZOROASTRIAN ADM/ MDM INSERT FDA Start: 10-07-2017 ZOROASTRIAN GAP PLATE SCREW FDA Start: 10-07-2017 ZOROASTRIAN GAP PLATE SCREW FDA Start: 10-07-2017 ZOROASTRIAN GAP PLATE SCREW FDA Start: 10-07-2017 ZOROASTRIAN GAP PLATE SCREW FDA Start: 10-07-2017 ZOROASTRIAN GAP PLATE SCREW FDA Start: 10-07-2017 3.3MM DRILL BIT FDA Start: 10-07-2017 ZOROASTRIAN GAP PLATE SCREW FDA Start: 10-07-2017 ZOROASTRIAN MODU LAR HIP SYSTM FDA Start: 10-07-2017 RESTORE ANATOMIC GONZÁLEZ SHELL FDA Start: 10-07-2017 explant full blade FDA Start: 10-07-2017 mabel explant truncated blade FDA Start: 10-07-2017 LFIT 40 FEMORAL HEAD FDA Star t: 10-07-2017 MDM CEMENTLESS LINER FDA Star t: 10-07-2017 ZOROASTRIAN ADM/ MDM INSERT FDA Start: 10-07-2017 ZOROASTRIAN GAP PLATE SCREW FDA Start: 10-07-2017 ZOROASTRIAN GAP PLATE SCREW FDA Start: 10-07-2017 ZOROASTRIAN GAP PLATE SCREW FDA Start: 10-07-2017 ZOROASTRIAN GAP PLATE SCREW FDA Start: 10-07-2017 ZOROASTRIAN GAP PLATE SCREW FDA Start: 10-07-2017 3.3MM DRILL BIT FDA Start: 10-07-2017 ZOROASTRIAN GAP PLATE SCREW FDA Start: 10-07-2017 ZOROASTRIAN MODU LAR HIP SYSTM FDA Start: 10-07-2017 RESTORE ANATOMIC GONZÁLEZ SHELL FDA Start: 10-07-2017 explant full blade FDA Start: 10-07-2017 mabel explant truncated blade FDA Start: 10-07-2017 LFIT 40 FEMORAL HEAD FDA Star t: 10-07-2017 MDM CEMENTLESS LINER FDA Star t: 10-07-2017 ZOROASTRIAN ADM/ MDM INSERT FDA Start: 10-07-2017 ZOROASTRIAN GAP PLATE SCREW FDA Start: 10-07-2017 ZOROASTRIAN GAP PLATE SCREW FDA Start: 10-07-2017 ZOROASTRIAN GAP PLATE SCREW FDA Start: 10-07-2017 ZOROASTRIAN GAP PLATE SCREW FDA Start: 10-07-2017 ZOROASTRIAN GAP PLATE SCREW FDA Start: 10-07-2017 Mental Status Date Assessment Result Facility 05-16-2025 Cognitive function Level Of Cons ciousness Awake;Alert;Appropriate;Follow s Commands [facility] Work Phone: 04-14-2025 Cognitive function Awake;Alert;A ppropriate;Follow s Commands [facility] Work Phone: 03-28-2025 Cognitive function Awake;Alert;A ppropriate;Follow s Commands [facility] Work Phone: 01-24-2025 Cognitive function Awake;Alert;A ppropriate;Follow s Commands [facility] Work Phone: 11-30-2024 Cognitive function Awake;Alert;A ppropriate;Follow s Commands [facility] Work Phone: 10-13-2024 Cognitive function Awake;Alert;A ppropriate;Follow s Commands [facility] Work Phone: 10-04-2024 Cognitive function Voice/Name [facility] Work Phone: 12-18-2023 Cognitive function Voice/Name [facility] Work Phone: 11-06-2023 Cognitive function Awake;Alert;A ppropriate;Follow s Commands [facility] Work Phone: 11-06-2023 Cognitive function Awake;Alert;Appropriat e [facility] Work Phone: 10-15-2023 Cognitive function Awake;Alert;A ppropriate;Follow s Commands [facility] Work Phone: 08-24-2023 Cognitive function Awake;Alert;A ppropriate;Follow s Commands [facility] Work Phone: 04-23-2023 Cognitive function Awake;Alert;A ppropriate;Follow s Commands [facility] Work Phone: 04-14-2023 Cognitive function Voice/Name [facility] Work Phone: 02-20-2023 Cognitive function Voice/Name [facility] Work Phone: 12-26-2022 Cognitive function Voice/Name [facility] Work Phone: 10-24-2022 Cognitive function Awake;Alert;A ppropriate;Follow s Commands [facility] Work Phone: 10-14-2022 Cognitive function Level Of Cons ciousness Awake;Alert;Appropriate;Follow s Commands [facility] Work Phone: 08-19-2022 Cognitive function Voice/Name [facility] Work Phone: 06-24-2022 Cognitive function Voice/Name [facility] Work Phone: 04-29-2022 Cognitive function Voice/Name [facility] Work Phone: 03-21-2022 Cognitive function Awake;Alert;A ppropriate;Follow s Commands [facility] Work Phone: 03-04-2022 Cognitive function Voice/Name [facility] Work Phone: 01-07-2022 Cognitive function Voice/Name [facility] Work Phone: 11-12-2021 Cognitive function Level Of Cons ciousness Awake;Alert;Appropriate;Follow s Commands [facility] Work Phone: 09-20-2021 Cognitive function Voice/Name [facility] Work Phone: 09-17-2021 Cognitive function Voice/Name [facility] Work Phone: Clinical Notes 01-04-2015 to 08-01-2025 Note Date & Type Note Facility 08-01-2025 Progress note [facility] 07-13-2025 Progress note Note Date/Time July 13, 2025 9:48am [facility] [address] [place] [address] Progress Note - Wound Care 07/13/25 0859 MR#: [id number] Acct: [id number] Name: WELLINGTON GONZALEZ Rep #:[id number] : 1945 80 From: Merrill machado DPM PCP: Dr. Randa Joseph, DO Status:REG RCR Location: History of Present Illness Date of Service: 07/13/25 Chief Complaint: Left medial ankle wound History [...] medial aspect of the left lower extremity. Previously underwent vascular procedure withDr. Mckee on 04/13/25. Had follow-up with vascular on 04/26/2025, will continue regular follow. Continues Lasix and edema remains controlled. Has left grafting product in place and states he is changing outer dressing as needed. States he does not sit often. Continues to try to elevating his legs when he does sit. Still continues standing for long periods of time performing woodworking in his garage. States wound continues to look better with grafting. He denies constitutional symptoms. Denies further complaints. Objective Data Objective Data Vital Signs: Vital Signs Temp Pulse Resp BP O2 Del Method 96.8 F L 67 18 139/78 H Room Air 07/13/25 08:50 07/13/25 08:50 07/13/25 08:50 07/13/25 08:50 07/06/25 09:06 Oxygen Delivery Method Room Air Physical Exam Const alert, oriented x3 and no apparent distress General Appearance: cooperative HEENT normocephalic Eyes Eyes Narrative: Wears glasses General Eye: normal appearance of both eyes Neck General: normal visual inspection Lymph Lymphatic: no lymphadenopathy noted and no lymphedema noted Resp normal respiratory effort Cardio regular rate and regular rhythm Extremity no calf tenderness Extremity Narrative: Left lower extremity: Vascular: DP and PT pulses weakly palpable. Capillary fill time to digits is 5 seconds. Normal temperature gradient. There is absent hair growth to digits noted. Dermatological: There is a full-thickness ulceration noted to the medial aspect of the lower extremity/ankle with mixed fibro granular layer. Negative Stemmer sign left foot. There is evidence of stasis dermatitis with hyperpigmentation/hemosiderin deposition/staining of skin left lower extremity. There are varicosities noted of the lower extremity with mild lower extremity edema. There is no erythema or rubor of the left lower extremity. Does have increased edema secondary to his vascular procedure, but this is well-controlledwith Lasix now. Musculoskeletal: Muscle strength 5 of 5 age-appropriate. There is decreased range of motion of the ankle joint dorsiflexion with knee extended without pain or crepitus. Decreased range of motion of the STJ, MTJ, and first MTPJ without pain or crepitus. No pain to palpation of calf. Skin no rashes or lesions noted General Skin Exam: venous stasis and dermatitis Neuro moves all extremities Debridement Note Debridement Note Wound debrided: Left medial ankle Laterality: Left Wound Grade/Stage: Cisneros stage I [...] Nurse 1 - General Ulcer Assessment Start: 06/22/25 09:04 Freq: Status: Active Protocol: ANAYA Activity Type Activity Date Activity User E-sign Co-sign Detail Recorded Client Recorded Date Recorded By Document 06/22/25 09:04 DL [id number] 06/22/25 09:10 DL Document 06/29/25 09:06 DL [id number] 06/29/25 09:14 DL Document 07/06/25 09:06 KW [id number] 07/06/25 09:13 KW Document 07/13/25 08:50 RB [id number] 07/13/25 08:51 RB 06/22/25 06/29/25 07/06/25 09:04 09:06 09:06 - Today's Visit Information Type of service Follow-up Visit Follow-up Visit Follow-up Visit (Physician/COFFEE SHOP ATTENDANT (Physician/COFFEE SHOP ATTENDANT (Physician/COFFEE SHOP ATTENDANT ) ) ) Arrival Mode Ambulatory Ambulatory Ambulatory Transfer Assistance None None Patient Identification Verified (Name & Yes Yes Yes ) Patient Requires Transmission-Based No No Precautions Vital Signs Temperature (97.8 F-99.1 F) 98 F 97 F L 97.4 F L Temperature Source Temporal Temporal Temporal Pulse Rate (60-100) 68 64 72 Pulse Location Monitor Monitor Monitor Respiratory Rate (12-18) 16 16 18 Respiratory rate source Observation Observation Observation Oxygen Delivery Method Room Air Blood Pressure (90/60-120/80) 125/75 H 134/76 H 135/71 H Blood Pressure Mean (mm Hg) 91 95 92 Source Monitor Monitor Monitor Position Sitting Blood Pressure Location Left [...] Has offloadiing in place as prescribed N/A Yes N/A Experienced any changes in pain level or No No No management Left Footwear Regular Shoe Right Footwear Regular Shoe Pain Scale: 0-10 Numeric Is Patient Pain Free? Yes Yes Yes 07/13/25 08:50 - Today's Visit Information Type of service Follow-up Visit (Physician/COFFEE SHOP ATTENDANT ) Arrival Mode Ambulatory Transfer Assistance None Patient Identification Verified (Name & Yes ) Patient Requires Transmission-Based No Precautions Vital Signs Temperature (97.8 F-99.1 F) 96.8 F L Temperature Source Temporal Pulse Rate (60-100) 67 Pulse Location Monitor Respiratory Rate (12-18) 18 Respiratory rate source Observation Oxygen Delivery Method Blood Pressure (90/60-120/80) 139/78 H Blood Pressure Mean (mm Hg) 98 Source Monitor Position Semi-Fowlers Blood Pressure Location [...] Nurse 1 - General Ulcer Measurement Start: 06/22/25 09:04 Freq: Status: Active Protocol: Activity Type Activity Date Activity User E-sign Co-sign Detail Recorded Client Recorded Date Recorded By Document 06/22/25 09:04 DL [id number] 06/22/25 09:10 DL Document 06/29/25 09:06 DL [id number] 06/29/25 09:14 DL Document 07/06/25 09:06 KW [id number] 07/06/25 09:13 KW Document 07/13/25 08:50 RB [id number] 07/13/25 08:51 RB 06/22/25 06/29/25 07/06/25 09:04 09:06 09:06 Wound Center Nurse 1 #1 L Med Ankle CLUSTER -Combined with other wound -Current Size (cm) - Length 4.3 4.2 1.5 -Current Size (cm) - Width 1.5 1.3 4 -Current Size (cm) - Depth 0.1 0.1 0.1 -Total Square Cm 6.45 5.46 6.0 -Date of Last Picture (Recall this 07/06/25 field) -Photo Taken Yes Yes -Tunneling -Undermining/Tunneling -Circular Undermining -Exudate Amt Small Small Medium -Exudate Type Serosanguineous Serosanguineous Serosanguineous -Wound Margin Thickened Thickened Distinct, Outline Attached -Granulation Amt Medium (34-66%) Large (67-100%) Large (67-100%) -Granulation Quality Red Red Red -Slough/Fibrin -Necrosis Amt Medium (34-66%) Small (1-33%) Small (1-33%) -Necrotic Tissue Type Adherent Slough Adherent Slough Adherent Slough -Structure Exposed N/A N/A -Texture (Megan-wound Skin Appearance) Scarring Scarring Assessed -Moisture (Megan-wound Skin Appearance) Dry/Scaly Dry/Scaly Assessed,Dry/ Scaly -Color (Megan-wound Skin Appearance) Hemosiderin Hemosiderin Assessed, Staining Staining Erythema -Temperature (Megan-wound Skin No Abnormality No Abnormality No Abnormality Appearance) (Pt Warm) (Pt Warm) (Pt Warm) -Tenderness on Palpation (Megan-wound No No Skin Appearance) -Ulcer Cleansing Soap and Water Soap and Water Soap and Water -Foul Odor after Cleansing No No No -Anesthetic Used 5% Lidocaine 5% Lidocaine 5% Lidocaine Gel Gel Gel Lower Limb Edema Present Left Calf (cm) 38.5 32 35 Left Ankle (cm) 22.8 23.6 25.5 07/13/25 08:50 Wound Center Nurse 1 #1 L Med Ankle CLUSTER -Combined with other wound No -Current Size (cm) - Length 4.2 -Current Size (cm) - Width 1.2 -Current Size (cm) - Depth 0.2 -Total Square Cm 5.04 -Date of Last Picture (Recall this field) -Photo Taken Yes -Tunneling No -Undermining/Tunneling No -Circular Undermining No -Exudate Amt Medium -Exudate Type Serosanguineous -Wound Margin Thickened & Rolled Under -Granulation Amt Medium (34-66%) -Granulation Quality [place] -Slough/Fibrin Yes -Necrosis Amt Small (1-33%) -Necrotic Tissue Type Adherent Slough -Structure Exposed N/A -Texture (Megan-wound Skin Appearance) Assessed -Moisture (Megan-wound Skin Appearance) Dry/Scaly -Color (Megan-wound Skin Appearance) Assessed -Temperature (Megan-wound Skin No Abnormality Appearance) (Pt Warm) -Tenderness on Palpation (Megan-wound No Skin Appearance) -Ulcer Cleansing Wound Cleanser -Foul Odor after Cleansing No -Anesthetic Used 5% Lidocaine Gel Lower Limb Edema Present Yes Left Calf (cm) 36.6 Left Ankle (cm) 23.1 WC - Nurse 2 - General Ulcer CM Notes Start: 06/22/25 09:04 Freq: Status: Active Protocol: Activity Type Activity Date Activity User E-sign Co-sign Detail Recorded Client Recorded Date Recorded By Document 06/22/25 09:33 [facility] [id number] 06/22/25 09:44 [facility] Document 06/29/25 09:31 [facility] [id number] 06/29/25 09:38 BM Document 07/06/25 09:23 [facility] [id number] 07/06/25 09:28 [facility] 06/22/25 06/29/25 07/06/25 09:33 09:31 09:23 Wound Center Nurse 2 #1 L Med Ankle CLUSTER -Time 09:33 09:31 09:24 -Correct Patient Yes Yes Yes -Correct Side, Site, Position Yes Yes Yes -Correct Procedure Yes Yes Yes -Procedure Performed Yes Yes Yes -Type of Procedure Debridement Debridement Debridement -Clinical Debridement Subcutaneous Subcutaneous Subcutaneous -Tissue Removed Subcutaneous Subcutaneous Subcutaneous -Post Debridement (cm) - Length 4.4 4.4 4.1 -Post Debridement (cm) - Width 1.4 1.3 1.5 -Post Debridement (cm) - Depth 0.1 0.1 0.1 -Total Square (Post) (cm) 6.16 5.72 6.15 -Area of Debridement (cm) - Length 4.4 4.4 4.1 -Area of Debridement (cm) - Width 1.4 1.3 1.5 -Total Square (Area) (cm) 6.16 5.72 6.15 -Tunneling No No No -Undermining/Tunneling No No No -Circular Undermining No No No -Wound/Ulcer Outcome Not Healed Not Healed Not Healed -Ulcer Cleansing Rinsed/ Rinsed/ Rinsed/ Irrigated with Irrigated with Irrigated with Saline Saline Saline -Foul Odor after Cleansing No No No -Bioengineered Tissue Yes Yes Yes -Type of Bioengineered Tissue Epifix Mesh Epifix Mesh Epifix Mesh -Expiration Date 10/19/29 08/19/29 -Product Lot Number [id number] -Percent Used 100 100 100 -Lot number of Saline Used [id number] -Bleeding Controlled with Pressure Pressure Pressure -Treatment Response Procedure Procedure Procedure Tolerated Well Tolerated Well Tolerated Well -Debridement - Subq, 1st 20sq cm No No No -Apply Skin Sub - 1st 25 sq cm - Legs 1 1 1 -Epifix Mesh Application 1-4 (per sq 11 11 11 cm) Pain Scale: 0-10 Numeric Is Patient Pain Free? Yes Yes Yes - Nurse 3 - General Ulcer D/C NN Start: 06/22/25 09:04 Freq: Status: Active Protocol: Activity Type Activity Date Activity User E-sign Co-sign Detail Recorded Client Recorded Date Recorded By Document 06/22/25 10:00 ML [id number] 06/22/25 10:01 ML Document 06/29/25 09:58 DL [id number] 06/29/25 09:59 DL Document 07/06/25 09:55 MT [id number] 07/06/25 09:57 MT 06/22/25 06/29/25 07/06/25 10:00 09:58 09:55 Wound Care Center Nurse 3 #1 L Med Ankle CLUSTER -Foul Odor after Cleansing No No -Negative Pressure Wound Therapy N/A -Primary Dressing Applied Aquacel Extra Aquacel Extra Aquacel Extra -Other Dressing PT BROUGHT OWN AQUACEL EXTRA -Primary Dressing Covered/Secured with Dry Gauze & Dry Gauze & Dry Gauze & Roll Gauze, Roll Gauze, Roll Gauze, Secured with Secured with Secured with Tape Tape Tape -Aquacel Extra 0 1 1 LLE -Tubular Bandage Double Layer Double Layer Double Layer -Size of Tubigrip Used Size D Size D Size D -Size D ($) 2 2 2 Treatment Response Procedure Tolerated Well Pain [...] left ankle with fat layer exposed (3) Venous insufficiency (chronic) (peripheral): CODE(S): I87.2 - Venous insufficiency (chronic) (peripheral) (4) Bilateral lower extremity edema: CODE(S): R60.0 - Localized edema PLAN: Plan Patient seen and evaluated Predebridement measurement 3.4 cm x 1.4 cm x 0.1 cm Postdebridement measurement 3.5 cm x 1.5 cm x 0.1 cm Ulceration site did undergo debridement as noted in the clinical panel above. Localized erythema from 06/01/25 has improved on oral antibiotic and Dakin's wash. Following debridement, EpiFix graft #7 ([id number]) was applied to the ulcerative bed. No signs of infection or ulcerative bed at graft placement. Site was thendressed with wound veil and anchored with Steri-Strips. Aquacel extra applied over graft site and dressed with dry sterile dressing. Double Tubigrip stockingapplied for compression. There is decreased in size of ulceration in terms of length versus previous visit with edema maintained on Lasix. Swab culture was obtained of the site 05/18/2025. Results demonstrate strep agalactiae and Serratia marcescens. Due to positive cultures following his Dakin's wash he was prescribed doxycycline 100 mg twice daily x 14 days and ciprofloxacin 500 mg twice daily x 14 days (stop date 06/08/2025). There has been improvement in the appearance of the wound and he has finished antibiotic to completion. Stat Doppler for 02/16/2025 was negative for DVT. He did undergo repeat venous study 03/14/25 and underwent venous ablation on April 13. He was [...] was applied for 02/16/2025, awaiting approval. He has been approved for advanced wound care product, EpiFix for application. He is following with Dr. Mckee for procedure to aid in his venous insufficiency. Procedure performed 04/13/25. Recent visit with Dr. Mckee 04/26/2025. Discussed continued diet to aid in healing [...] and care recommendations were made: Dressing: EpiFix, wound veil, Steri-Strips, Aquacel extra, dry sterile dressing,Tubigrip compression. He will change outer dressing as needed. Will continue compression stocking to right lower extremity Wash: Do not get wet left lower extremity Tissue growth optimization: EpiFix Offload: Tubigrip compression Vascular: Does have history of positive venous insufficiency/reflux. Underwent procedure 04/13/2025 as above. Edema: Tubigrip compression and elevation of the lower extremities Infection: No signs of infection Pain: May take [id number]-qtiguis Tylenol Extra Strength for discomfort Host factors: Chronic venous insufficiency, chronic lower extremity edema, prolonged standing/activity, advanced age complicate healing. I answered all the patient's questions. To return to the wound healing center in 1 week or call sooner if the patient has any questions or concerns. 07/13/25 0948 <Electronically signed by Merrill Burns DPM> Cosigner Signature (if applicable): CC: ~ Signed [facility] Work Phone: 1(340) 940-589909-25-2025 Progress note [facility] [address] [place] [address] Progress Note - Wound Care 07/13/25 0859 MR#: [id number] Acct: [id number] Name: WELLINGTON GONZALEZ Rep #:[id number] : 1945 80 From: Merrill machado DPM PCP: Dr. Randa Joseph, DO Status:REG RCR Location: History of Present Illness Date of Service: 07/13/25 Chief Complaint: Left medial ankle wound History [...] medial aspect of the left lower extremity. Previously underwent vascular procedure withDr. Mckee on 04/13/25. Had follow-up with vascular on 04/26/2025, will continue regular follow. Continues Lasix and edema remains controlled. Has left grafting productin place and states he is changing outer dressing as needed. States he does not sit often. Continues to try to elevating his legs when he does sit. Still continues standing for long periods of time performing woodworking in his garage. States wound continues to look better with grafting. He denies constitutional symptoms. Denies further complaints. Objective Data Objective Data Vital Signs: Vital Signs Temp Pulse Resp BP O2 Del Method 96.8 F L 67 18 139/78 H Room Air 07/13/25 08:50 07/13/25 08:50 07/13/25 08:50 07/13/25 08:50 07/06/25 09:06 Oxygen Delivery Method Room Air Physical Exam Const alert, oriented x3 and no apparent distress General Appearance: cooperative HEENT normocephalic Eyes Eyes Narrative: Wears glasses General Eye: normal appearance of both eyes Neck General: normal visual inspection Lymph Lymphatic: no lymphadenopathy noted and no lymphedema noted Resp normal respiratory effort Cardio regular rate and regular rhythm Extremity no calf tenderness Extremity Narrative: Left lower extremity: Vascular: DP and PT pulses weakly palpable. Capillary fill time to digits is 5 seconds. Normal temperature gradient. There is absent hair growth to digits noted. Dermatological: There is a full-thickness ulceration noted to the medial aspect of the lower extremity/ankle with mixed fibro granular layer. Negative Stemmer sign left foot. There is evidence of stasis dermatitis with hyperpigmentation/hemosiderin deposition/staining of skin left lower extremity. There are varicosities noted of the lower extremity with mild lower extremity edema. There is no erythema or rubor of the left lower extremity. Does have increased edema secondary to his vascular procedure, but this is well- controlledwith Lasix now. Musculoskeletal: Muscle strength 5 of 5 age-appropriate. There is decreased range of motion of the ankle joint dorsiflexion with knee extended without pain or crepitus. Decreased range of motion of the STJ, MTJ, and first MTPJ without pain or crepitus. No pain to palpation of calf. Skin no rashes or lesions noted General Skin Exam: venous stasis and dermatitis Neuro moves all extremities Debridement Note Debridement Note Wound debrided: Left medial ankle Laterality: Left Wound Grade/Stage: Cisneros stage I [...] Nurse 1 - General Ulcer Assessment Start: 06/22/25 09:04 Freq: Status: Active Protocol: ANAYA Activity Type Activity Date Activity User E-sign Co-sign Detail Recorded Client Recorded Date Recorded By Document 06/22/25 09:04 DL [id number] 06/22/25 09:10 DL Document 06/29/25 09:06 DL [id number] 06/29/25 09:14 DL Document 07/06/25 09:06 KW [id number] 07/06/25 09:13 KW Document 07/13/25 08:50 RB [id number] 07/13/25 08:51 RB 06/22/25 06/29/25 07/06/25 09:04 09:06 09:06 WC - Today's Visit Information Type of service Follow-up Visit Follow-up Visit Follow-up Visit (Physician/COFFEE SHOP ATTENDANT (Physician/COFFEE SHOP ATTENDANT (Physician/COFFEE SHOP ATTENDANT ) ) ) Arrival Mode Ambulatory Ambulatory Ambulatory Transfer Assistance None None Patient Identification Verified (Name & Yes Yes Yes ) Patient Requires Transmission-Based No No Precautions Vital Signs Temperature (97.8 F-99.1 F) 98 F 97 F L 97.4 F L Temperature Source Temporal Temporal Temporal Pulse Rate (60-100) 68 64 72 Pulse Location Monitor Monitor Monitor Respiratory Rate (12-18) 16 16 18 Respiratory rate source Observation Observation Observation Oxygen Delivery Method Room Air Blood Pressure (90/60-120/80) 125/75 H 134/76 H 135/71 H Blood Pressure Mean (mm Hg) 91 95 92 Source Monitor Monitor Monitor Position Sitting Blood Pressure Location Left [...] Has offloadiing in place as prescribed N/A Yes N/A Experienced any changes in pain level or No No No management Left Footwear Regular Shoe Right Footwear Regular Shoe Pain Scale: 0-10 Numeric Is Patient Pain Free? Yes Yes Yes 07/13/25 08:50 WC - Today's Visit Information Type of service Follow-up Visit (Physician/COFFEE SHOP ATTENDANT ) Arrival Mode Ambulatory Transfer Assistance None Patient Identification Verified (Name & Yes ) Patient Requires Transmission-Based No Precautions Vital Signs Temperature (97.8 F-99.1 F) 96.8 F L Temperature Source Temporal Pulse Rate (60-100) 67 Pulse Location Monitor Respiratory Rate (12-18) 18 Respiratory rate source Observation Oxygen Delivery Method Blood Pressure (90/60-120/80) 139/78 H Blood Pressure Mean (mm Hg) 98 Source Monitor Position Semi-Fowlers Blood Pressure Location [...] Nurse 1 - General Ulcer Measurement Start: 06/22/25 09:04 Freq: Status: Active Protocol: Activity Type Activity Date Activity User E-sign Co-sign Detail Recorded Client Recorded Date Recorded By Document 06/22/25 09:04 DL [id number] 06/22/25 09:10 DL Document 06/29/25 09:06 DL [id number] 06/29/25 09:14 DL Document 07/06/25 09:06 KW [id number] 07/06/25 09:13 KW Document 07/13/25 08:50 RB [id number] 07/13/25 08:51 RB 06/22/25 06/29/25 07/06/25 09:04 09:06 09:06 Wound Center Nurse 1 #1 L Med Ankle CLUSTER -Combined with other wound -Current Size (cm) - Length 4.3 4.2 1.5 -Current Size (cm) - Width 1.5 1.3 4 -Current Size (cm) - Depth 0.1 0.1 0.1 -Total Square Cm 6.45 5.46 6.0 -Date of Last Picture (Recall this 07/06/25 field) -Photo Taken Yes Yes -Tunneling -Undermining/Tunneling -Circular Undermining -Exudate Amt Small Small Medium -Exudate Type Serosanguineous Serosanguineous Serosanguineous -Wound Margin Thickened Thickened Distinct, Outline Attached -Granulation Amt Medium (34-66%) Large (67-100%) Large (67-100%) -Granulation Quality Red Red Red -Slough/Fibrin -Necrosis Amt Medium (34-66%) Small (1-33%) Small (1-33%) -Necrotic Tissue Type Adherent Slough Adherent Slough Adherent Slough -Structure Exposed N/A N/A -Texture (Megan-wound Skin Appearance) Scarring Scarring Assessed -Moisture (Megan-wound Skin Appearance) Dry/Scaly Dry/Scaly Assessed,Dry/ Scaly -Color (Megan-wound Skin Appearance) Hemosiderin Hemosiderin Assessed, Staining Staining Erythema -Temperature (Megan-wound Skin No Abnormality No Abnormality No Abnormality Appearance) (Pt Warm) (Pt Warm) (Pt Warm) -Tenderness on Palpation (Megan-wound No No Skin Appearance) -Ulcer Cleansing Soap and Water Soap and Water Soap and Water -Foul Odor after Cleansing No No No -Anesthetic Used 5% Lidocaine 5% Lidocaine 5% Lidocaine Gel Gel Gel Lower Limb Edema Present Left Calf (cm) 38.5 32 35 Left Ankle (cm) 22.8 23.6 25.5 07/13/25 08:50 Wound Center Nurse 1 #1 L Med Ankle CLUSTER -Combined with other wound No -Current Size (cm) - Length 4.2 -Current Size (cm) - Width 1.2 -Current Size (cm) - Depth 0.2 -Total Square Cm 5.04 -Date of Last Picture (Recall this field) -Photo Taken Yes -Tunneling No -Undermining/Tunneling No -Circular Undermining No -Exudate Amt Medium -Exudate Type Serosanguineous -Wound Margin Thickened & Rolled Under -Granulation Amt Medium (34-66%) -Granulation Quality [place] -Slough/Fibrin Yes -Necrosis Amt Small (1-33%) -Necrotic Tissue Type Adherent Slough -Structure Exposed N/A -Texture (Megan-wound Skin Appearance) Assessed -Moisture (Megan-wound Skin Appearance) Dry/Scaly -Color (Megan-wound Skin Appearance) Assessed -Temperature (Megan-wound Skin No Abnormality Appearance) (Pt Warm) -Tenderness on Palpation (Megan-wound No Skin Appearance) -Ulcer Cleansing Wound Cleanser -Foul Odor after Cleansing No -Anesthetic Used 5% Lidocaine Gel Lower Limb Edema Present Yes Left Calf (cm) 36.6 Left Ankle (cm) 23.1 WC - Nurse 2 - General Ulcer CM Notes Start: 06/22/25 09:04 Freq: Status: Active Protocol: Activity Type Activity Date Activity User E-sign Co-sign Detail Recorded Client Recorded Date Recorded By Document 06/22/25 09:33 [facility] [id number] 06/22/25 09:44 BM Document 06/29/25 09:31 [facility] [id number] 06/29/25 09:38 BM Document 07/06/25 09:23 BM [id number] 07/06/25 09:28 BMF 06/22/25 06/29/25 07/06/25 09:33 09:31 09:23 Wound Center Nurse 2 #1 L Med Ankle CLUSTER -Time 09:33 09:31 09:24 -Correct Patient Yes Yes Yes -Correct Side, Site, Position Yes Yes Yes -Correct Procedure Yes Yes Yes -Procedure Performed Yes Yes Yes -Type of Procedure Debridement Debridement Debridement -Clinical Debridement Subcutaneous Subcutaneous Subcutaneous -Tissue Removed Subcutaneous Subcutaneous Subcutaneous -Post Debridement (cm) - Length 4.4 4.4 4.1 -Post Debridement (cm) - Width 1.4 1.3 1.5 -Post Debridement (cm) - Depth 0.1 0.1 0.1 -Total Square (Post) (cm) 6.16 5.72 6.15 -Area of Debridement (cm) - Length 4.4 4.4 4.1 -Area of Debridement (cm) - Width 1.4 1.3 1.5 -Total Square (Area) (cm) 6.16 5.72 6.15 -Tunneling No No No -Undermining/Tunneling No No No -Circular Undermining No No No -Wound/Ulcer Outcome Not Healed Not Healed Not Healed -Ulcer Cleansing Rinsed/ Rinsed/ Rinsed/ Irrigated with Irrigated with Irrigated with Saline Saline Saline -Foul Odor after Cleansing No No No -Bioengineered Tissue Yes Yes Yes -Type of Bioengineered Tissue Epifix Mesh Epifix Mesh Epifix Mesh -Expiration Date 10/19/29 08/19/29 -Product Lot Number [id number] -Percent Used 100 100 100 -Lot number of Saline Used [id number] -Bleeding Controlled with Pressure Pressure Pressure -Treatment Response Procedure Procedure Procedure Tolerated Well Tolerated Well Tolerated Well -Debridement - Subq, 1st 20sq cm No No No -Apply Skin Sub - 1st 25 sq cm - Legs 1 1 1 -Epifix Mesh Application 1-4 (per sq 11 11 11 cm) Pain Scale: 0-10 Numeric Is Patient Pain Free? Yes Yes Yes - Nurse 3 - General Ulcer D/C NN Start: 06/22/25 09:04 Freq: Status: Active Protocol: Activity Type Activity Date Activity User E-sign Co-sign Detail Recorded Client Recorded Date Recorded By Document 06/22/25 10:00 ML [id number] 06/22/25 10:01 ML Document 06/29/25 09:58 DL [id number] 06/29/25 09:59 DL Document 07/06/25 09:55 MT [id number] 07/06/25 09:57 MT 06/22/25 06/29/25 07/06/25 10:00 09:58 09:55 Wound Care Center Nurse 3 #1 L Med Ankle CLUSTER -Foul Odor after Cleansing No No -Negative Pressure Wound Therapy N/A -Primary Dressing Applied Aquacel Extra Aquacel Extra Aquacel Extra -Other Dressing PT BROUGHT OWN AQUACEL EXTRA -Primary Dressing Covered/Secured with Dry Gauze & Dry Gauze & Dry Gauze & Roll Gauze, Roll Gauze, Roll Gauze, Secured with Secured with Secured with Tape Tape Tape -Aquacel Extra 0 1 1 LLE -Tubular Bandage Double Layer Double Layer Double Layer -Size of Tubigrip Used Size D Size D Size D -Size D ($) 2 2 2 Treatment Response Procedure Tolerated Well Pain [...] left ankle with fat layer exposed (3) Venous insufficiency (chronic) (peripheral): CODE(S): I87.2 - Venous insufficiency (chronic) (peripheral) (4) Bilateral lower extremity edema: CODE(S): R60.0 - Localized edema PLAN: Plan Patient seen and evaluated Predebridement measurement 3.4 cm x 1.4 cm x 0.1 cm Postdebridement measurement 3.5 cm x 1.5 cm x 0.1 cm Ulceration site did undergo debridement as noted in the clinical panel above. Localized erythema from 06/01/25 has improved on oral antibiotic and Dakin's wash. Following debridement, EpiFix graft #7 ([id number]) was applied to the ulcerative bed. No signs of infection or ulcerative bed at graft placement. Site was thendressed with wound veil and anchored with Steri-Strips. Aquacel extra applied over graft site and dressed with dry sterile dressing. Double Tubigrip stockingapplied for compression. There is decreased in size of ulceration in terms of length versus previous visit with edema maintained on Lasix. Swab culture was obtained of the site 05/18/2025. Results demonstrate strep agalactiae and Serratia marcescens. Due to positive cultures following his Dakin's wash he was prescribed doxycycline 100 mgtwice daily x 14 days and ciprofloxacin 500 mg twice daily x 14 days (stop date 06/08/2025). There has been improvement in the appearance of the wound and he has finished antibiotic to completion. Stat Doppler for 02/16/2025 was negative for DVT. He did undergo repeat venous study 03/14/25 and underwent venous ablation on April 13. He was [...] was applied for 02/16/2025, awaiting approval. He has been approved for advanced wound care product, EpiFix for application. He is following with Dr. Mckee for procedure to aid in his venous insufficiency. Procedure performed 04/13/25. Recent visit with Dr. Mckee 04/26/2025. Discussed continued diet to aid in healing [...] and care recommendations were made: Dressing: EpiFix, wound veil, Steri-Strips, Aquacel extra, dry sterile dressing,Tubigrip compression. He will change outer dressing as needed. Will continue compression stocking to right lower extremity Wash: Do not get wet left lower extremity Tissue growth optimization: EpiFix Offload: Tubigrip compression Vascular: Does have history of positive venous insufficiency/reflux. Underwent procedure 04/13/2025 as above. Edema: Tubigrip compression and elevation of the lower extremities Infection: No signs of infection Pain: May take [id number] Tylenol Extra Strength for discomfort Host factors: Chronic venous insufficiency, chronic lower extremity edema, prolonged standing/activity, advanced age complicate healing. I answered all the patient's questions. To return to the wound healing center in 1 week or call sooner if the patient has any questions or concerns. 07/13/25 0948 Cosigner Signature (if applicable): CC: ~ Signed [facility]09-18-2025 Progress note Author Merrill Burns [facility] Note Date/Time July 06, 2025 12:24pm [facility] [address] [place] [address] Progress Note - Wound Care 07/06/25 09 MR#: [id number] Acct: [id number] Name: WELLINGTON GONZALEZ Rep #:[id number] : 1945 80 From: Merrill machado DPM PCP: Dr. Randa Joseph, DO Status:REG RCR Location: History of Present Illness Date of Service: 07/06/25 Chief Complaint: Left medial ankle wound History [...] aspect of the left lower extremity. He underwent vascular procedure with Dr. Mckee on 04/13/25. Had follow-up with vascular on 04/26/2025. Has since continuedLasix and edema remains controlled. Has left grafting product in place and states he is changing outer dressing as needed. States he does not sit often. Continues to try to elevating his legs when he does sit. Still continues standing for long periods of time performing woodworking in his garage. States wound continues to look better. He denies constitutional symptoms. Denies further complaints. Objective Data Objective Data Vital Signs: Vital Signs Temp Pulse Resp BP 97 F L 64 16 134/76 H 06/29/25 09:06 06/29/25 09:06 06/29/25 09:06 06/29/25 09:06 Physical Exam Const alert, oriented x3 and no apparent distress General Appearance: cooperative HEENT normocephalic Eyes Eyes Narrative: Wears glasses General Eye: normal appearance of both eyes Neck General: normal visual inspection Lymph Lymphatic: no lymphadenopathy noted and no lymphedema noted Resp normal respiratory effort Cardio regular rate and regular rhythm Extremity no calf tenderness Extremity Narrative: Left lower extremity: Vascular: DP and PT pulses weakly palpable. Capillary fill time to digits is 5 seconds. Normal temperature gradient. There is absent hair growth to digits noted. Dermatological: There is a full-thickness ulceration noted to the medial aspect of the lower extremity/ankle with mixed fibro granular layer. Negative Stemmer sign left foot. There is evidence of stasis dermatitis with hyperpigmentation/hemosiderin deposition/staining of skin left lower extremity. There are varicosities noted of the lower extremity with mild lower extremity edema. There is no erythema or rubor of the left lower extremity. Does have increased edema secondary to his vascular procedure, but this is well-controlledwith Lasix now. Musculoskeletal: Muscle strength 5 of 5 age-appropriate. There is decreased range of motion of the ankle joint dorsiflexion with knee extended without pain or crepitus. Decreased range of motion of the STJ, MTJ, and first MTPJ without pain or crepitus. No pain to palpation of calf. Skin no rashes or lesions noted General [...] Nurse 1 - General Ulcer Assessment Start: 06/22/25 09:04 Freq: Status: Active Protocol: ANAYA Activity Type Activity Date Activity User E-sign Co-sign Detail Recorded Client Recorded Date Recorded By Document 06/22/25 09:04 DL [id number] 06/22/25 09:10 DL Document 06/29/25 09:06 DL [id number] 06/29/25 09:14 DL 06/22/25 06/29/25 09:04 09:06 WC - Today's Visit Information Type of service Follow-up Visit Follow-up Visit (Physician/COFFEE SHOP ATTENDANT (Physician/COFFEE SHOP ATTENDANT ) ) Arrival Mode Ambulatory Ambulatory Transfer Assistance None None Patient Identification Verified (Name & Yes Yes ) Patient Requires Transmission-Based No No Precautions Vital Signs Temperature (97.8 F-99.1 F) 98 F 97 F L Temperature Source Temporal Temporal Pulse Rate (60-100) 68 64 Pulse Location Monitor Monitor Respiratory Rate (12-18) 16 16 Respiratory rate source Observation Observation Blood Pressure (90/60-120/80) 125/75 H 134/76 H Blood Pressure Mean (mm Hg) 91 95 Source Monitor Monitor History Since Last Visit- (Skip if this [...] Has offloadiing in place as prescribed N/A Yes Experienced any changes in pain level or No No management Pain Scale: 0-10 Numeric Is Patient Pain Free? Yes Yes - Nurse 1 - General Ulcer Measurement Start: 06/22/25 09:04 Freq: Status: Active Protocol: Activity Type Activity Date Activity User E-sign Co-sign Detail Recorded Client Recorded Date Recorded By Document 06/22/25 09:04 DL [id number] 06/22/25 09:10 DL Document 06/29/25 09:06 DL [id number] 06/29/25 09:14 DL 06/22/25 06/29/25 09:04 09:06 Wound Center Nurse 1 #1 L Med Ankle CLUSTER -Current Size (cm) - Length 4.3 4.2 -Current Size (cm) - Width 1.5 1.3 -Current Size (cm) - Depth 0.1 0.1 -Total Square Cm 6.45 5.46 -Photo Taken Yes Yes -Exudate Amt Small Small -Exudate Type Serosanguineous Serosanguineous -Wound Margin Thickened Thickened -Granulation Amt Medium (34-66%) Large (67-100%) -Granulation Quality Red Red -Necrosis Amt Medium (34-66%) Small (1-33%) -Necrotic Tissue Type Adherent Slough Adherent Slough -Structure Exposed N/A N/A -Texture (Megan-wound Skin Appearance) Scarring Scarring -Moisture (Megan-wound Skin Appearance) Dry/Scaly Dry/Scaly -Color (Megan-wound Skin Appearance) Hemosiderin Hemosiderin Staining Staining -Temperature (Megan-wound Skin No Abnormality No Abnormality Appearance) (Pt Warm) (Pt Warm) -Tenderness on Palpation (Megan-wound No Skin Appearance) -Ulcer Cleansing Soap and Water Soap and Water -Foul Odor after Cleansing No No -Anesthetic Used 5% Lidocaine 5% Lidocaine Gel Gel Left Calf (cm) 38.5 32 Left Ankle (cm) 22.8 23.6 WC - Nurse 2 - General Ulcer CM Notes Start: 06/22/25 09:04 Freq: Status: Active Protocol: Activity Type Activity Date Activity User E-sign Co-sign Detail Recorded Client Recorded Date Recorded By Document 06/22/25 09:33 [facility] [id number] 06/22/25 09:44 [facility] Document 06/29/25 09:31 [facility] [id number] 06/29/25 09:38 [facility] 06/22/25 06/29/25 09:33 09:31 Wound Center Nurse 2 #1 L Med Ankle CLUSTER -Time 09:33 09:31 -Correct Patient Yes Yes -Correct Side, Site, Position Yes Yes -Correct Procedure Yes Yes -Procedure Performed Yes Yes -Type of Procedure Debridement Debridement -Clinical Debridement Subcutaneous Subcutaneous -Tissue Removed Subcutaneous Subcutaneous -Post Debridement (cm) - Length 4.4 4.4 -Post Debridement (cm) - Width 1.4 1.3 -Post Debridement (cm) - Depth 0.1 0.1 -Total Square (Post) (cm) 6.16 5.72 -Area of Debridement (cm) - Length 4.4 4.4 -Area of Debridement (cm) - Width 1.4 1.3 -Total Square (Area) (cm) 6.16 5.72 -Tunneling No No -Undermining/Tunneling No No -Circular Undermining No No -Wound/Ulcer Outcome Not Healed Not Healed -Ulcer Cleansing Rinsed/ Rinsed/ Irrigated with Irrigated with Saline Saline -Foul Odor after Cleansing No No -Bioengineered Tissue Yes Yes -Type of Bioengineered Tissue Epifix Mesh Epifix Mesh -Expiration Date 10/19/29 08/19/29 -Product Lot Number [id number] -Percent Used 100 100 -Lot number of Saline Used [id number] -Bleeding Controlled with Pressure Pressure -Treatment Response Procedure Procedure Tolerated Well Tolerated Well -Debridement - Subq, 1st 20sq cm No No -Apply Skin Sub - 1st 25 sq cm - Legs 1 1 -Epifix Mesh Application 1-4 (per sq 11 11 cm) Pain Scale: 0-10 Numeric Is Patient Pain Free? Yes Yes - Nurse 3 - General Ulcer D/C NN Start: 06/22/25 09:04 Freq: Status: Active Protocol: Activity Type Activity Date Activity User E-sign Co-sign Detail Recorded Client Recorded Date Recorded By Document 06/22/25 10:00 ML [id number] 06/22/25 10:01 ML Document 06/29/25 09:58 DL [id number] 06/29/25 09:59 DL 06/22/25 06/29/25 10:00 09:58 Wound Care Center Nurse 3 #1 L Med Ankle CLUSTER -Foul Odor after Cleansing No -Primary Dressing Applied Aquacel Extra Aquacel Extra -Other Dressing PT BROUGHT OWN AQUACEL EXTRA -Primary Dressing Covered/Secured with Dry Gauze & Dry Gauze & Roll Gauze, Roll Gauze, Secured with Secured with Tape Tape -Aquacel Extra 0 1 LLE -Tubular Bandage Double Layer Double Layer -Size of Tubigrip Used Size D Size D -Size D ($) 2 2 Treatment Response Procedure Tolerated Well Pain [...] with fat layer exposed QUALIFIERS: Laterality: left Varicose vein presence: with varicose veins Qualified Code(s): 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 Localized erythema from 06/01/25 has improved on oral antibiotic and Dakin's wash. Following debridement, EpiFix graft #6 ([id number]) was applied to the ulcerative bed. No signs of infection or ulcerative bed at graft placement. Site was thendressed with wound veil and anchored with Steri-Strips. Aquacel extra applied over graft site and dressed with dry sterile dressing. Double Tubigrip stockingapplied for compression. There is decreased in size of ulceration in terms of length versus previous visit with edema improved and maintained on Lasix. Swab culture was obtained of the site 05/18/2025. Results demonstrate strep agalactiae and Serratia marcescens. Due to positive cultures following his Dakin's wash he was prescribed doxycycline 100 mg twice daily x 14 days and ciprofloxacin 500 mg twice daily x 14 days (stop date 06/08/2025). There has been improvement in the appearance of the wound and he has finished antibiotic to completion. Stat Doppler for 02/16/2025 was negative for DVT. He did undergo repeat venous study 03/14/25 and underwent venous ablation on April 13. He was [...] was applied for 02/16/2025, awaiting approval. He has been approved for advanced wound care product, EpiFix for application. He is following with Dr. Mckee for procedure to aid in his venous insufficiency. Procedure performed 04/13/25. Recent visit with Dr. Mckee 04/26/2025. Discussed continued diet to aid in healing [...] and care recommendations were made: Dressing: EpiFix, wound veil, Steri-Strips, Aquacel extra, dry sterile dressing,Tubigrip compression. He will change outer dressing as needed. Will continue compression stocking to right lower extremity Wash: Do not get wet left lower extremity Tissue growth optimization: EpiFix Offload: Tubigrip compression Vascular: Does have history of positive venous insufficiency/reflux. Underwent procedure 04/13/2025 as above. Edema: Tubigrip compression and elevation of the lower extremities Infection: No signs of infection Pain: May take qbcy-wcc-oewhohj Tylenol Extra Strength for discomfort Host factors: Chronic venous insufficiency, chronic lower extremity edema, prolonged standing/activity, advanced age complicate healing. I answered all the patient's questions. To return to the wound healing center in 1 week or call sooner if the patient has any questions or concerns. 07/06/25 1224 <Electronically signed by Merrill Burns DPM> Cosigner Signature (if applicable): CC: ~ Signed [facility] Work Phone: [phone] 804-942409-18-2025 Progress note [facility] [address] [place] [address] Progress Note - Wound Care 07/06/25 09 MR#: [id number] Acct: [id number] Name: WELLINGTON GONZALEZ Rep #:[id number] : 1945 80 From: Merrill machado DPM PCP: Dr. Randa Joseph, DO Status:REG RCR Location: History of Present Illness Date of Service: 07/06/25 Chief Complaint: Left medial ankle wound History [...] aspect of the left lower extremity. He underwent vascular procedure with Dr. Mckee on 04/13/25. Had follow-up with vascular on 04/26/2025. Has since continuedLasix and edema remains controlled. Has left grafting product in place and states he is changing outer dressing as needed. States he does not sit often. Continues to try to elevating his legs when he does sit. Still continues standing for long periods of time performing woodworking in hisgarage. States wound continues to look better. He denies constitutional symptoms. Denies further complaints. Objective Data Objective Data Vital Signs: Vital Signs Temp Pulse Resp BP 97 F L 64 16 134/76 H 06/29/25 09:06 06/29/25 09:06 06/29/25 09:06 06/29/25 09:06 Physical Exam Const alert, oriented x3 and no apparent distress General Appearance: cooperative HEENT normocephalic Eyes Eyes Narrative: Wears glasses General Eye: normal appearance of both eyes Neck General: normal visual inspection Lymph Lymphatic: no lymphadenopathy noted and no lymphedema noted Resp normal respiratory effort Cardio regular rate and regular rhythm Extremity no calf tenderness Extremity Narrative: Left lower extremity: Vascular: DP and PT pulses weakly palpable. Capillary fill time to digits is 5 seconds. Normal temperature gradient. There is absent hair growth to digits noted. Dermatological: There is a full-thickness ulceration noted to the medial aspect of the lower extremity/ankle with mixed fibro granular layer. Negative Stemmer sign left foot. There is evidence of stasis dermatitis with hyperpigmentation/hemosiderin deposition/staining of skin left lower extremity. There are varicosities noted of the lower extremity with mild lower extremity edema. There is no erythema or rubor of the left lower extremity. Does have increased edema secondary to his vascular procedure, but this is well- controlledwith Lasix now. Musculoskeletal: Muscle strength 5 of 5 age-appropriate. There is decreased range of motion of the ankle joint dorsiflexion with knee extended without pain or crepitus. Decreased range of motion of the STJ, MTJ, and first MTPJ without pain or crepitus. No pain to palpation of calf. Skin no rashes or lesions noted General [...] Nurse 1 - General Ulcer Assessment Start: 06/22/25 09:04 Freq: Status: Active Protocol: ANAYA Activity Type Activity Date Activity User E-sign Co-sign Detail Recorded Client Recorded Date Recorded By Document 06/22/25 09:04 DL [id number] 06/22/25 09:10 DL Document 06/29/25 09:06 DL [id number] 06/29/25 09:14 DL 06/22/25 06/29/25 09:04 09:06 - Today's Visit Information Type of service Follow-up Visit Follow-up Visit (Physician/COFFEE SHOP ATTENDANT (Physician/COFFEE SHOP ATTENDANT ) ) Arrival Mode Ambulatory Ambulatory Transfer Assistance None None Patient Identification Verified (Name & Yes Yes ) Patient Requires Transmission-Based No No Precautions Vital Signs Temperature (97.8 F-99.1 F) 98 F 97 F L Temperature Source Temporal Temporal Pulse Rate (60-100) 68 64 Pulse Location Monitor Monitor Respiratory Rate (12-18) 16 16 Respiratory rate source Observation Observation Blood Pressure (90/60-120/80) 125/75 H 134/76 H Blood Pressure Mean (mm Hg) 91 95 Source Monitor Monitor History Since Last Visit- (Skip if this [...] Has offloadiing in place as prescribed N/A Yes Experienced any changes in pain level or No No management Pain Scale: 0-10 Numeric Is Patient Pain Free? Yes Yes - Nurse 1 - General Ulcer Measurement Start: 06/22/25 09:04 Freq: Status: Active Protocol: Activity Type Activity Date Activity User E-sign Co-sign Detail Recorded Client Recorded Date Recorded By Document 06/22/25 09:04 DL [id number] 06/22/25 09:10 DL Document 06/29/25 09:06 DL [id number] 06/29/25 09:14 DL 06/22/25 06/29/25 09:04 09:06 Wound Center Nurse 1 #1 L Med Ankle CLUSTER -Current Size (cm) - Length 4.3 4.2 -Current Size (cm) - Width 1.5 1.3 -Current Size (cm) - Depth 0.1 0.1 -Total Square Cm 6.45 5.46 -Photo Taken Yes Yes -Exudate Amt Small Small -Exudate Type Serosanguineous Serosanguineous -Wound Margin Thickened Thickened -Granulation Amt Medium (34-66%) Large (67-100%) -Granulation Quality Red Red -Necrosis Amt Medium (34-66%) Small (1-33%) -Necrotic Tissue Type Adherent Slough Adherent Slough -Structure Exposed N/A N/A -Texture (Megan-wound Skin Appearance) Scarring Scarring -Moisture (Megan-wound Skin Appearance) Dry/Scaly Dry/Scaly -Color (Megan-wound Skin Appearance) Hemosiderin Hemosiderin Staining Staining -Temperature (Megan-wound Skin No Abnormality No Abnormality Appearance) (Pt Warm) (Pt Warm) -Tenderness on Palpation (Megan-wound No Skin Appearance) -Ulcer Cleansing Soap and Water Soap and Water -Foul Odor after Cleansing No No -Anesthetic Used 5% Lidocaine 5% Lidocaine Gel Gel Left Calf (cm) 38.5 32 Left Ankle (cm) 22.8 23.6 WC - Nurse 2 - General Ulcer CM Notes Start: 06/22/25 09:04 Freq: Status: Active Protocol: Activity Type Activity Date Activity User E-sign Co-sign Detail Recorded Client Recorded Date Recorded By Document 06/22/25 09:33 [facility] [id number] 06/22/25 09:44 [facility] Document 06/29/25 09:31 [facility] [id number] 06/29/25 09:38 [facility] 06/22/25 06/29/25 09:33 09:31 Wound Center Nurse 2 #1 L Med Ankle CLUSTER -Time 09:33 09:31 -Correct Patient Yes Yes -Correct Side, Site, Position Yes Yes -Correct Procedure Yes Yes -Procedure Performed Yes Yes -Type of Procedure Debridement Debridement -Clinical Debridement Subcutaneous Subcutaneous -Tissue Removed Subcutaneous Subcutaneous -Post Debridement (cm) - Length 4.4 4.4 -Post Debridement (cm) - Width 1.4 1.3 -Post Debridement (cm) - Depth 0.1 0.1 -Total Square (Post) (cm) 6.16 5.72 -Area of Debridement (cm) - Length 4.4 4.4 -Area of Debridement (cm) - Width 1.4 1.3 -Total Square (Area) (cm) 6.16 5.72 -Tunneling No No -Undermining/Tunneling No No -Circular Undermining No No -Wound/Ulcer Outcome Not Healed Not Healed -Ulcer Cleansing Rinsed/ Rinsed/ Irrigated with Irrigated with Saline Saline -Foul Odor after Cleansing No No -Bioengineered Tissue Yes Yes -Type of Bioengineered Tissue Epifix Mesh Epifix Mesh -Expiration Date 10/19/29 08/19/29 -Product Lot Number [id number] -Percent Used 100 100 -Lot number of Saline Used [id number] -Bleeding Controlled with Pressure Pressure -Treatment Response Procedure Procedure Tolerated Well Tolerated Well -Debridement - Subq, 1st 20sq cm No No -Apply Skin Sub - 1st 25 sq cm - Legs 1 1 -Epifix Mesh Application 1-4 (per sq 11 11 cm) Pain Scale: 0-10 Numeric Is Patient Pain Free? Yes Yes - Nurse 3 - General Ulcer D/C NN Start: 06/22/25 09:04 Freq: Status: Active Protocol: Activity Type Activity Date Activity User E-sign Co-sign Detail Recorded Client Recorded Date Recorded By Document 06/22/25 10:00 ML [id number] 06/22/25 10:01 ML Document 06/29/25 09:58 DL [id number] 06/29/25 09:59 DL 06/22/25 06/29/25 10:00 09:58 Wound Care Center Nurse 3 #1 L Med Ankle CLUSTER -Foul Odor after Cleansing No -Primary Dressing Applied Aquacel Extra Aquacel Extra -Other Dressing PT BROUGHT OWN AQUACEL EXTRA -Primary Dressing Covered/Secured with Dry Gauze & Dry Gauze & Roll Gauze, Roll Gauze, Secured with Secured with Tape Tape -Aquacel Extra 0 1 LLE -Tubular Bandage Double Layer Double Layer -Size of Tubigrip Used Size D Size D -Size D ($) 2 2 Treatment Response Procedure Tolerated Well Pain [...] with fat layer exposed QUALIFIERS: Laterality: left Varicose vein presence: with varicose veins Qualified Code(s): 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 Localized erythema from 06/01/25 has improved on oral antibiotic and Dakin's wash. Following debridement, EpiFix graft #6 ([id number]) was applied to the ulcerative bed. No signs of infection or ulcerative bed at graft placement. Site was thendressed with wound veil and anchored with Steri-Strips. Aquacel extra applied over graft site and dressed with dry sterile dressing. Double Tubigrip stockingapplied for compression. There is decreased in size of ulceration in terms of length versus previous visit with edema improved and maintained on Lasix. Swab culture was obtained of the site 05/18/2025. Results demonstrate strep agalactiae and Serratia marcescens. Due to positive cultures following his Dakin's wash he was prescribed doxycycline 100 mgtwice daily x 14 days and ciprofloxacin 500 mg twice daily x 14 days (stop date 06/08/2025). There has been improvement in the appearance of the wound and he has finished antibiotic to completion. Stat Doppler for 02/16/2025 was negative for DVT. He did undergo repeat venous study 03/14/25 and underwent venous ablation on April 13. He was [...] was applied for 02/16/2025, awaiting approval. He has been approved for advanced wound care product, EpiFix for application. He is following with Dr. Mckee for procedure to aid in his venous insufficiency. Procedure performed 04/13/25. Recent visit with Dr. Mckee 04/26/2025. Discussed continued diet to aid in healing [...] and care recommendations were made: Dressing: EpiFix, wound veil, Steri-Strips, Aquacel extra, dry sterile dressing,Tubigrip compression. He will change outer dressing as needed. Will continue compression stocking to right lower extremity Wash: Do not get wet left lower extremity Tissue growth optimization: EpiFix Offload: Tubigrip compression Vascular: Does have history of positive venous insufficiency/reflux. Underwent procedure 04/13/2025 as above. Edema: Tubigrip compression and elevation of the lower extremities Infection: No signs of infection Pain: May take zrgy-nqu-kvsvisr Tylenol Extra Strength for discomfort Host factors: Chronic venous insufficiency, chronic lower extremity edema, prolonged standing/activity, advanced age complicate healing. I answered all the patient's questions. To return to the wound healing center in 1 week or call sooner if the patient has any questions or concerns. 07/06/25 1224 Cosigner Signature (if applicable): CC: ~ Signed [facility]09-11-2025 Progress note Author Merrill Burns [facility] Note Date/Time June 29, 2025 12:37pm [facility] [address] [place] [address] Progress Note - Wound Care 06/29/25 1234 MR#: [id number] Acct: [id number] Name: WELLINGTON GONZALEZ Rep #:[id number] : 1945 80 From: Merrill machado DPM PCP: Dr. Randa Joseph, DO Status:REG RCR Location: History of Present Illness Date of Service: 06/29/25 Chief Complaint: Left medial ankle wound History [...] aspect of the left lower extremity. He underwent vascular procedure with Dr. Mckee on 04/13/25. Had follow-up with vascular on 04/26/2025. Has since continuedLasix and edema remains controlled. Has left grafting product in place and states he is changing outer dressing as needed. States he does not sit often. Continues to try to elevating his legs when he does sit. Still continues standing for long periods of time performing woodworking in his garage. Reports he feels the wound site is looking better. He denies constitutional symptoms. Denies further complaints. Objective Data Objective Data Vital Signs: Vital Signs Temp Pulse Resp BP 97 F L 64 16 134/76 H 06/29/25 09:06 06/29/25 09:06 06/29/25 09:06 06/29/25 09:06 Physical Exam Const alert, oriented x3 and no apparent distress General Appearance: cooperative HEENT normocephalic Eyes Eyes Narrative: Wears glasses General Eye: normal appearance of both eyes Neck General: normal visual inspection Lymph Lymphatic: no lymphadenopathy noted and no lymphedema noted Resp normal respiratory effort Cardio regular rate and regular rhythm Extremity no calf tenderness Extremity Narrative: Left lower extremity: Vascular: DP and PT pulses weakly palpable. Capillary fill time to digits is 5 seconds. Normal temperature gradient. There is absent hair growth to digits noted. Dermatological: There is a full-thickness ulceration noted to the medial aspect of the lower extremity/ankle with mixed fibro granular layer. Negative Stemmer sign left foot. There is evidence of stasis dermatitis with hyperpigmentation/hemosiderin deposition/staining of skin left lower extremity. There are varicosities noted of the lower extremity with mild lower extremity edema. There is no erythema or rubor of the left lower extremity. Does have increased edema secondary to his vascular procedure, but this is well-controlledwith Lasix now. Musculoskeletal: Muscle strength 5 of 5 age-appropriate. There is decreased range of motion of the ankle joint dorsiflexion with knee extended without pain or crepitus. Decreased range of motion of the STJ, MTJ, and first MTPJ without pain or crepitus. No pain to palpation of calf. Skin no rashes or lesions noted General Skin Exam: venous stasis and dermatitis Neuro moves all extremities Debridement Note Debridement Note Wound debrided: Left medial ankle Laterality: Left Wound Grade/Stage: Cisneros stage I [...] Nurse 1 - General Ulcer Assessment Start: 06/22/25 09:04 Freq: Status: Active Protocol: ANAYA Activity Type Activity Date Activity User E-sign Co-sign Detail Recorded Client Recorded Date Recorded By Document 06/22/25 09:04 DL [id number] 06/22/25 09:10 DL Document 06/29/25 09:06 DL [id number] 06/29/25 09:14 DL 06/22/25 06/29/25 09:04 09:06 WC - Today's Visit Information Type of service Follow-up Visit Follow-up Visit (Physician/COFFEE SHOP ATTENDANT (Physician/COFFEE SHOP ATTENDANT ) ) Arrival Mode Ambulatory Ambulatory Transfer Assistance None None Patient Identification Verified (Name & Yes Yes ) Patient Requires Transmission-Based No No Precautions Vital Signs Temperature (97.8 F-99.1 F) 98 F 97 F L Temperature Source Temporal Temporal Pulse Rate (60-100) 68 64 Pulse Location Monitor Monitor Respiratory Rate (12-18) 16 16 Respiratory rate source Observation Observation Blood Pressure (90/60-120/80) 125/75 H 134/76 H Blood Pressure Mean (mm Hg) 91 95 Source Monitor Monitor History Since Last Visit- (Skip if this [...] Has offloadiing in place as prescribed N/A Yes Experienced any changes in pain level or No No management Pain Scale: 0-10 Numeric Is Patient Pain Free? Yes Yes [facility]NA [facility]bs Nurse 1 - General Ulcer Measurement Start: 06/22/25 09:04 Freq: Status: Active Protocol: Activity Type Activity Date Activity User E-sign Co-sign Detail Recorded Client Recorded Date Recorded By Document 06/22/25 09:04 DL [id number] 06/22/25 09:10 DL Document 06/29/25 09:06 DL [id number] 06/29/25 09:14 DL 06/22/25 06/29/25 09:04 09:06 Wound Center Nurse 1 #1 L Med Ankle CLUSTER -Current Size (cm) - Length 4.3 4.2 -Current Size (cm) - Width 1.5 1.3 -Current Size (cm) - Depth 0.1 0.1 -Total Square Cm 6.45 5.46 -Photo Taken Yes Yes -Exudate Amt Small Small -Exudate Type Serosanguineous Serosanguineous -Wound Margin Thickened Thickened -Granulation Amt Medium (34-66%) Large (67-100%) -Granulation Quality Red Red -Necrosis Amt Medium (34-66%) Small (1-33%) -Necrotic Tissue Type Adherent Slough Adherent Slough -Structure Exposed N/A N/A -Texture (Megan-wound Skin Appearance) Scarring Scarring -Moisture (Megan-wound Skin Appearance) Dry/Scaly Dry/Scaly -Color (Megan-wound Skin Appearance) Hemosiderin Hemosiderin Staining Staining -Temperature (Megan-wound Skin No Abnormality No Abnormality Appearance) (Pt Warm) (Pt Warm) -Tenderness on Palpation (Megan-wound No Skin Appearance) -Ulcer Cleansing Soap and Water Soap and Water -Foul Odor after Cleansing No No -Anesthetic Used 5% Lidocaine 5% Lidocaine Gel Gel Left Calf (cm) 38.5 32 Left Ankle (cm) 22.8 23.6 WC - Nurse 2 - General Ulcer CM Notes Start: 06/22/25 09:04 Freq: Status: Active Protocol: Activity Type Activity Date Activity User E-sign Co-sign Detail Recorded Client Recorded Date Recorded By Document 06/22/25 09:33 [facility] [id number] 06/22/25 09:44 BM Document 06/29/25 09:31 [facility] [id number] 06/29/25 09:38 [facility] 06/22/25 06/29/25 09:33 09:31 Wound Center Nurse 2 #1 L Med Ankle CLUSTER -Time 09: 09:31 -Correct Patient Yes Yes -Correct Side, Site, Position Yes Yes -Correct Procedure Yes Yes -Procedure Performed Yes Yes -Type of Procedure Debridement Debridement -Clinical Debridement Subcutaneous Subcutaneous -Tissue Removed Subcutaneous Subcutaneous -Post Debridement (cm) - Length 4.4 4.4 -Post Debridement (cm) - Width 1.4 1.3 -Post Debridement (cm) - Depth 0.1 0.1 -Total Square (Post) (cm) 6.16 5.72 -Area of Debridement (cm) - Length 4.4 4.4 -Area of Debridement (cm) - Width 1.4 1.3 -Total Square (Area) (cm) 6.16 5.72 -Tunneling No No -Undermining/Tunneling No No -Circular Undermining No No -Wound/Ulcer Outcome Not Healed Not Healed -Ulcer Cleansing Rinsed/ Rinsed/ Irrigated with Irrigated with Saline Saline -Foul Odor after Cleansing No No -Bioengineered Tissue Yes Yes -Type of Bioengineered Tissue Epifix Mesh Epifix Mesh -Expiration Date 10/19/29 08/19/29 -Product Lot Number [id number] -Percent Used 100 100 -Lot number of Saline Used [id number] -Bleeding Controlled with Pressure Pressure -Treatment Response Procedure Procedure Tolerated Well Tolerated Well -Debridement - Subq, 1st 20sq cm No No -Apply Skin Sub - 1st 25 sq cm - Legs 1 1 -Epifix Mesh Application 1-4 (per sq 11 11 cm) Pain Scale: 0-10 Numeric Is Patient Pain Free? Yes Yes - Nurse 3 - General Ulcer D/C NN Start: 06/22/25 09:04 Freq: Status: Active Protocol: Activity Type Activity Date Activity User E-sign Co-sign Detail Recorded Client Recorded Date Recorded By Document 06/22/25 10:00 ML [id number] 06/22/25 10:01 ML Document 06/29/25 09:58 DL [id number] 06/29/25 09:59 DL 06/22/25 06/29/25 10:00 09:58 Wound Care Center Nurse 3 #1 L Med Ankle CLUSTER -Foul Odor after Cleansing No -Primary Dressing Applied Aquacel Extra Aquacel Extra -Other Dressing PT BROUGHT OWN AQUACEL EXTRA -Primary Dressing Covered/Secured with Dry Gauze & Dry Gauze & Roll Gauze, Roll Gauze, Secured with Secured with Tape Tape -Aquacel Extra 0 1 LLE -Tubular Bandage Double Layer Double Layer -Size of Tubigrip Used Size D Size D -Size D ($) 2 2 Treatment Response Procedure Tolerated Well Pain [...] left ankle with fat layer exposed (3) Venous insufficiency (chronic) (peripheral): CODE(S): I87.2 - Venous insufficiency (chronic) (peripheral) (4) Bilateral lower extremity edema: CODE(S): R60.0 - Localized edema PLAN: Plan Patient seen and evaluated Predebridement measurement 4.3 cm x 1.2 cm x 0.1 cm Postdebridement measurement 4.4 cm x 1.3 cm x 0.1 cm Ulceration site did undergo debridement as noted in the clinical panel above. Localized erythema from 06/01/25 has improved on oral antibiotic and Dakin's wash. Following debridement, EpiFix graft #5 ([id number]) was applied to the ulcerative bed. No signs of infection or ulcerative bed at graft placement. Site was thendressed with wound veil and anchored with Steri-Strips. Aquacel extra applied over graft site and dressed with dry sterile dressing. Double Tubigrip stockingapplied for compression. There is decreased in size of ulceration in terms of width versus previous visit with edema improved and maintained on Lasix. Swab culture was obtained of the site 05/18/2025. Results demonstrate strep agalactiae and Serratia marcescens. Due to positive cultures following his Dakin's wash he was prescribed doxycycline 100 mg twice daily x 14 days and ciprofloxacin 500 mg twice daily x 14 days (stop date 06/08/2025). There has been improvement in the appearance of the wound and he has finished antibiotic to completion. Stat Doppler for 02/16/2025 was negative for DVT. He did undergo repeat venous study 03/14/25 and underwent venous ablation on April 13. He was [...] was applied for 02/16/2025, awaiting approval. He has been approved for advanced wound care product, EpiFix for application. He is following with Dr. Mckee for procedure to aid in his venous insufficiency. Procedure performed 04/13/25. Recent visit with Dr. Mckee 04/26/2025. Discussed continued diet to aid in healing [...] and care recommendations were made: Dressing: EpiFix, wound veil, Steri-Strips, Aquacel extra, dry sterile dressing,Tubigrip compression. He will change outer dressing as needed. Will continue compression stocking to right lower extremity Wash: Do not get wet left lower extremity Tissue growth optimization: EpiFix Offload: Tubigrip compression Vascular: Does have history of positive venous insufficiency/reflux. Underwent procedure 04/13/2025 as above. Edema: Tubigrip compression and elevation of the lower extremities Infection: No signs of infection Pain: May take hsbf-ont-cpysxmn Tylenol Extra Strength for discomfort Host factors: Chronic venous insufficiency, chronic lower extremity edema, prolonged standing/activity, advanced age complicate healing. I answered all the patient's questions. To return to the wound healing center in 1 week or call sooner if the patient has any questions or concerns. 06/29/25 1237 <Electronically signed by Merrill uBrns DPM> Cosigner Signature (if applicable): CC: ~ Signed [facility] Work Phone: 1(884) 770-892409-11-2025 Progress note [facility] [address] [place] [address] Progress Note - Wound Care 06/29/25 1234 MR#: [id number] Acct: [id number] Name: WELLINGTON GONZALEZ Rep #:[id number] : 1945 80 From: Merrill machado DPM PCP: Dr. Randa Joseph, DO Status:REG RCR Location: History of Present Illness Date of Service: 06/29/25 Chief Complaint: Left medial ankle wound History [...] aspect of the left lower extremity. He underwent vascular procedure with Dr. Mckee on 04/13/25. Had follow-up with vascular on 04/26/2025. Has since continuedLasix and edema remains controlled. Has left grafting product in place and states he is changing outer dressing as needed. States he does not sit often. Continues to try to elevating his legs when he does sit. Still continues standing for long periods of time performing woodworking in hisgarage. Reports he feels the wound site is looking better. He denies constitutional symptoms. Denies further complaints. Objective Data Objective Data Vital Signs: Vital Signs Temp Pulse Resp BP 97 F L 64 16 134/76 H 06/29/25 09:06 06/29/25 09:06 06/29/25 09:06 06/29/25 09:06 Physical Exam Const alert, oriented x3 and no apparent distress General Appearance: cooperative HEENT normocephalic Eyes Eyes Narrative: Wears glasses General Eye: normal appearance of both eyes Neck General: normal visual inspection Lymph Lymphatic: no lymphadenopathy noted and no lymphedema noted Resp normal respiratory effort Cardio regular rate and regular rhythm Extremity no calf tenderness Extremity Narrative: Left lower extremity: Vascular: DP and PT pulses weakly palpable. Capillary fill time to digits is 5 seconds. Normal temperature gradient. There is absent hair growth to digits noted. Dermatological: There is a full-thickness ulceration noted to the medial aspect of the lower extremity/ankle with mixed fibro granular layer. Negative Stemmer sign left foot. There is evidence of stasis dermatitis with hyperpigmentation/hemosiderin deposition/staining of skin left lower extremity. There are varicosities noted of the lower extremity with mild lower extremity edema. There is no erythema or rubor of the left lower extremity. Does have increased edema secondary to his vascular procedure, but this is well- controlledwith Lasix now. Musculoskeletal: Muscle strength 5 of 5 age-appropriate. There is decreased range of motion of the ankle joint dorsiflexion with knee extended without pain or crepitus. Decreased range of motion of the STJ, MTJ, and first MTPJ without pain or crepitus. No pain to palpation of calf. Skin no rashes or lesions noted General Skin Exam: venous stasis and dermatitis Neuro moves all extremities Debridement Note Debridement Note Wound debrided: Left medial ankle Laterality: Left Wound Grade/Stage: Cisneros stage I [...] Nurse 1 - General Ulcer Assessment Start: 06/22/25 09:04 Freq: Status: Active Protocol: ANAYA Activity Type Activity Date Activity User E-sign Co-sign Detail Recorded Client Recorded Date Recorded By Document 06/22/25 09:04 DL [id number] 06/22/25 09:10 DL Document 06/29/25 09:06 DL [id number] 06/29/25 09:14 DL 06/22/25 06/29/25 09:04 09:06 LA NENA - Today's Visit Information Type of service Follow-up Visit Follow-up Visit (Physician/COFFEE SHOP ATTENDANT (Physician/COFFEE SHOP ATTENDANT ) ) Arrival Mode Ambulatory Ambulatory Transfer Assistance None None Patient Identification Verified (Name & Yes Yes ) Patient Requires Transmission-Based No No Precautions Vital Signs Temperature (97.8 F-99.1 F) 98 F 97 F L Temperature Source Temporal Temporal Pulse Rate (60-100) 68 64 Pulse Location Monitor Monitor Respiratory Rate (12-18) 16 16 Respiratory rate source Observation Observation Blood Pressure (90/60-120/80) 125/75 H 134/76 H Blood Pressure Mean (mm Hg) 91 95 Source Monitor Monitor History Since Last Visit- (Skip if this [...] Has offloadiing in place as prescribed N/A Yes Experienced any changes in pain level or No No management Pain Scale: 0-10 Numeric Is Patient Pain Free? Yes Yes - Nurse 1 - General Ulcer Measurement Start: 06/22/25 09:04 Freq: Status: Active Protocol: Activity Type Activity Date Activity User E-sign Co-sign Detail Recorded Client Recorded Date Recorded By Document 06/22/25 09:04 DL [id number] 06/22/25 09:10 DL Document 06/29/25 09:06 DL [id number] 06/29/25 09:14 DL 06/22/25 06/29/25 09:04 09:06 Wound Center Nurse 1 #1 L Med Ankle CLUSTER -Current Size (cm) - Length 4.3 4.2 -Current Size (cm) - Width 1.5 1.3 -Current Size (cm) - Depth 0.1 0.1 -Total Square Cm 6.45 5.46 -Photo Taken Yes Yes -Exudate Amt Small Small -Exudate Type Serosanguineous Serosanguineous -Wound Margin Thickened Thickened -Granulation Amt Medium (34-66%) Large (67-100%) -Granulation Quality Red Red -Necrosis Amt Medium (34-66%) Small (1-33%) -Necrotic Tissue Type Adherent Slough Adherent Slough -Structure Exposed N/A N/A -Texture (Megan-wound Skin Appearance) Scarring Scarring -Moisture (Megan-wound Skin Appearance) Dry/Scaly Dry/Scaly -Color (Megan-wound Skin Appearance) Hemosiderin Hemosiderin Staining Staining -Temperature (Megan-wound Skin No Abnormality No Abnormality Appearance) (Pt Warm) (Pt Warm) -Tenderness on Palpation (Megan-wound No Skin Appearance) -Ulcer Cleansing Soap and Water Soap and Water -Foul Odor after Cleansing No No -Anesthetic Used 5% Lidocaine 5% Lidocaine Gel Gel Left Calf (cm) 38.5 32 Left Ankle (cm) 22.8 23.6 WC - Nurse 2 - General Ulcer CM Notes Start: 06/22/25 09:04 Freq: Status: Active Protocol: Activity Type Activity Date Activity User E-sign Co-sign Detail Recorded Client Recorded Date Recorded By Document 06/22/25 09:33 BMF [id number] 06/22/25 09:44 BMF Document 06/29/25 09:31 BMF [id number] 06/29/25 09:38 BMF 06/22/25 06/29/25 09:33 09:31 Wound Center Nurse 2 #1 L Med Ankle CLUSTER -Time 09: 09:31 -Correct Patient Yes Yes -Correct Side, Site, Position Yes Yes -Correct Procedure Yes Yes -Procedure Performed Yes Yes -Type of Procedure Debridement Debridement -Clinical Debridement Subcutaneous Subcutaneous -Tissue Removed Subcutaneous Subcutaneous -Post Debridement (cm) - Length 4.4 4.4 -Post Debridement (cm) - Width 1.4 1.3 -Post Debridement (cm) - Depth 0.1 0.1 -Total Square (Post) (cm) 6.16 5.72 -Area of Debridement (cm) - Length 4.4 4.4 -Area of Debridement (cm) - Width 1.4 1.3 -Total Square (Area) (cm) 6.16 5.72 -Tunneling No No -Undermining/Tunneling No No -Circular Undermining No No -Wound/Ulcer Outcome Not Healed Not Healed -Ulcer Cleansing Rinsed/ Rinsed/ Irrigated with Irrigated with Saline Saline -Foul Odor after Cleansing No No -Bioengineered Tissue Yes Yes -Type of Bioengineered Tissue Epifix Mesh Epifix Mesh -Expiration Date 10/19/29 08/19/29 -Product Lot Number [id number] -Percent Used 100 100 -Lot number of Saline Used [id number] -Bleeding Controlled with Pressure Pressure -Treatment Response Procedure Procedure Tolerated Well Tolerated Well -Debridement - Subq, 1st 20sq cm No No -Apply Skin Sub - 1st 25 sq cm - Legs 1 1 -Epifix Mesh Application 1-4 (per sq 11 11 cm) Pain Scale: 0-10 Numeric Is Patient Pain Free? Yes Yes - Nurse 3 - General Ulcer D/C NN Start: 06/22/25 09:04 Freq: Status: Active Protocol: Activity Type Activity Date Activity User E-sign Co-sign Detail Recorded Client Recorded Date Recorded By Document 06/22/25 10:00 ML [id number] 06/22/25 10:01 ML Document 06/29/25 09:58 DL [id number] 06/29/25 09:59 DL 06/22/25 06/29/25 10:00 09:58 Wound Care Center Nurse 3 #1 L Med Ankle CLUSTER -Foul Odor after Cleansing No -Primary Dressing Applied Aquacel Extra Aquacel Extra -Other Dressing PT BROUGHT OWN AQUACEL EXTRA -Primary Dressing Covered/Secured with Dry Gauze & Dry Gauze & Roll Gauze, Roll Gauze, Secured with Secured with Tape Tape -Aquacel Extra 0 1 LLE -Tubular Bandage Double Layer Double Layer -Size of Tubigrip Used Size D Size D -Size D ($) 2 2 Treatment Response Procedure Tolerated Well Pain [...] left ankle with fat layer exposed (3) Venous insufficiency (chronic) (peripheral): CODE(S): I87.2 - Venous insufficiency (chronic) (peripheral) (4) Bilateral lower extremity edema: CODE(S): R60.0 - Localized edema PLAN: Plan Patient seen and evaluated Predebridement measurement 4.3 cm x 1.2 cm x 0.1 cm Postdebridement measurement 4.4 cm x 1.3 cm x 0.1 cm Ulceration site did undergo debridement as noted in the clinical panel above. Localized erythema from 06/01/25 has improved on oral antibiotic and Dakin's wash. Following debridement, EpiFix graft #5 ([id number]) was applied to the ulcerative bed. No signs of infection or ulcerative bed at graft placement. Site was thendressed with wound veil and anchored with Steri-Strips. Aquacel extra applied over graft site and dressed with dry sterile dressing. Double Tubigrip stockingapplied for compression. There is decreased in size of ulceration in terms of width versus previous visit with edema improved and maintained on Lasix. Swab culture was obtained of the site 05/18/2025. Results demonstrate strep agalactiae and Serratia marcescens. Due to positive cultures following his Dakin's wash he was prescribed doxycycline 100 mgtwice daily x 14 days and ciprofloxacin 500 mg twice daily x 14 days (stop date 06/08/2025). There has been improvement in the appearance of the wound and he has finished antibiotic to completion. Stat Doppler for 02/16/2025 was negative for DVT. He did undergo repeat venous study 03/14/25 and underwent venous ablation on April 13. He was [...] was applied for 02/16/2025, awaiting approval. He has been approved for advanced wound care product, EpiFix for application. He is following with Dr. Mckee for procedure to aid in his venous insufficiency. Procedure performed 04/13/25. Recent visit with Dr. Mckee 04/26/2025. Discussed continued diet to aid in healing [...] and care recommendations were made: Dressing: EpiFix, wound veil, Steri-Strips, Aquacel extra, dry sterile dressing,Tubigrip compression. He will change outer dressing as needed. Will continue compression stocking to right lower extremity Wash: Do not get wet left lower extremity Tissue growth optimization: EpiFix Offload: Tubigrip compression Vascular: Does have history of positive venous insufficiency/reflux. Underwent procedure 04/13/2025 as above. Edema: Tubigrip compression and elevation of the lower extremities Infection: No signs of infection Pain: May take [id number] Tylenol Extra Strength for discomfort Host factors: Chronic venous insufficiency, chronic lower extremity edema, prolonged standing/activity, advanced age complicate healing. I answered all the patient's questions. To return to the wound healing center in 1 week or call sooner if the patient has any questions or concerns. 06/29/25 1237 Cosigner Signature (if applicable): CC: ~ Signed [facility]09-04-2025 Progress note Author Merrill Burns [facility] Note Date/Time June 22, 2025 1:16pm [facility] [address] [place] [address] Progress Note - Wound Care 06/22/25 1309 MR#: [id number] Acct: [id number] Name: WELLINGTON GONZALEZ Rep #:[id number] : 1945 80 From: Merrill machado DPM PCP: Dr. Randa Joseph, DO Status:REG RCR Location: History of Present Illness Date of Service: 06/22/25 Chief Complaint: Left medial ankle wound History [...] aspect of the left lower extremity. He underwent vascular procedure with Dr. Mckee on 04/13/25. Had follow-up with vascular on 04/26/2025. Has since continuedLasix and edema remains controlled. Has left grafting product in place and states he is changing outer dressing as needed. States he does not sit often. Continues to try to elevating his legs when he does sit. Has finished oral antibiotic and feels site looking better. Still continues standing for long periods of time performing woodworking in his garage. He denies constitutional symptoms. Denies further complaints. Objective Data Objective Data Vital Signs: Vital Signs Temp Pulse Resp BP 98 F 68 16 125/75 H 06/22/25 09:04 06/22/25 09:04 06/22/25 09:04 06/22/25 09:04 Physical Exam Const alert, oriented x3 and no apparent distress General Appearance: cooperative HEENT normocephalic Eyes Eyes Narrative: Wears glasses General Eye: normal appearance of both eyes Neck General: normal visual inspection Lymph Lymphatic: no lymphadenopathy noted and no lymphedema noted Resp normal respiratory effort Cardio regular rate and regular rhythm Extremity no calf tenderness Extremity Narrative: Left lower extremity: Vascular: DP and PT pulses weakly palpable. Capillary fill time to digits is 5 seconds. Normal temperature gradient. There is absent hair growth to digits noted. Dermatological: There is a full-thickness ulceration noted to the medial aspect of the lower extremity/ankle with mixed fibro granular layer. Negative Stemmer sign left foot. There is evidence of stasis dermatitis with hyperpigmentation/hemosiderin deposition/staining of skin left lower extremity. There are varicosities noted of the lower extremity with mild lower extremity edema. There is no erythema or rubor of the left lower extremity. Does have increased edema secondary to his vascular procedure, but this is well-controlledwith Lasix now. Musculoskeletal: Muscle strength 5 of 5 age-appropriate. There is decreased range of motion of the ankle joint dorsiflexion with knee extended without pain or crepitus. Decreased range of motion of the STJ, MTJ, and first MTPJ without pain or crepitus. No pain to palpation of calf. Skin no rashes or lesions noted General Skin Exam: venous stasis and dermatitis Neuro moves all extremities Debridement Note Debridement Note Wound debrided: Left medial ankle Laterality: Left Wound Grade/Stage: Cisneros stage I Type of Debridement: Excisional debridement Anesthesia Used: 5% Lidocaine Gel Depth: Down to and including healthy tissue and in the subcutaneous layer Percentage of wound debrided: 100 Instrument Used: 7mm curette Tissue Removed: Fibrous, devitalized subcutaneous, biofilm, slough Severity: Fat Layer Exposed Amount of bleeding with debridement: Mild Bleeding Controlled with: Compression and gauze Patient tolerated procedure: Patient tolerated procedure well Post-Debridement Measurements and Additional Note: Post-Debridement Measurements/Treatment - Nurse 1 - General Ulcer Assessment Start: 06/22/25 09:04 Freq: Status: Active Protocol: ANAYA Activity Type Activity Date Activity User E-sign Co-sign Detail Recorded Client Recorded Date Recorded By Document 06/22/25 09:04 MARIELA [id number] 06/22/25 09:10 DL 06/22/25 09:04 WC - Today's Visit Information Type of service Follow-up Visit (Physician/COFFEE SHOP ATTENDANT ) Arrival Mode Ambulatory Transfer Assistance None Patient Identification Verified (Name & Yes ) Patient Requires Transmission-Based No Precautions Vital Signs Temperature (97.8 F-99.1 F) 98 F Temperature Source Temporal Pulse Rate (60-100) 68 Pulse Location Monitor Respiratory Rate (12-18) 16 Respiratory rate source Observation Blood Pressure (90/60-120/80) 125/75 H Blood Pressure Mean (mm Hg) 91 Source Monitor History Since Last Visit- (Skip if this [...] Nurse 1 - General Ulcer Measurement Start: 06/22/25 09:04 Freq: Status: Active Protocol: Activity Type Activity Date Activity User E-sign Co-sign Detail Recorded Client Recorded Date Recorded By Document 06/22/25 09:04 [id number] 06/22/25 09:10 DL 06/22/25 09:04 Wound Center Nurse 1 #1 L Med Ankle CLUSTER -Current Size (cm) - Length 4.3 -Current Size (cm) - Width 1.5 -Current Size (cm) - Depth 0.1 -Total Square Cm 6.45 -Photo Taken Yes -Exudate Amt Small -Exudate Type Serosanguineous -Wound Margin Thickened -Granulation Amt Medium (34-66%) -Granulation Quality Red -Necrosis Amt Medium (34-66%) -Necrotic Tissue Type Adherent Slough -Structure Exposed N/A -Texture (Megan-wound Skin Appearance) Scarring -Moisture (Megan-wound Skin Appearance) Dry/Scaly -Color (Megan-wound Skin Appearance) Hemosiderin Staining -Temperature (Megan-wound Skin No Abnormality Appearance) (Pt Warm) -Tenderness on Palpation (Megan-wound No Skin Appearance) -Ulcer Cleansing Soap and Water -Foul Odor after Cleansing No -Anesthetic Used 5% Lidocaine Gel Left Calf (cm) 38.5 Left Ankle (cm) 22.8 WC - Nurse 2 - General Ulcer CM Notes Start: 06/22/25 09:04 Freq: Status: Active Protocol: Activity Type Activity Date Activity User E-sign Co-sign Detail Recorded Client Recorded Date Recorded By Document 06/22/25 09:33 [facility] [id number] 06/22/25 09:44 [facility] 06/22/25 09:33 Wound Center Nurse 2 #1 L Med Ankle CLUSTER -Time 09:33 -Correct Patient Yes -Correct Side, Site, Position Yes -Correct Procedure Yes -Procedure Performed Yes -Type of Procedure Debridement -Clinical Debridement Subcutaneous -Tissue Removed Subcutaneous -Post Debridement (cm) - Length 4.4 -Post Debridement (cm) - Width 1.4 -Post Debridement (cm) - Depth 0.1 -Total Square (Post) (cm) 6.16 -Area of Debridement (cm) - Length 4.4 -Area of Debridement (cm) - Width 1.4 -Total Square (Area) (cm) 6.16 -Tunneling No -Undermining/Tunneling No -Circular Undermining No -Wound/Ulcer Outcome Not Healed -Ulcer Cleansing Rinsed/ Irrigated with Saline -Foul Odor after Cleansing No -Bioengineered Tissue Yes -Type of Bioengineered Tissue Epifix Mesh -Expiration Date 10/19/29 -Product Lot Number [id number] -Percent Used 100 -Lot number of Saline Used [id number] -Bleeding Controlled with Pressure -Treatment Response Procedure Tolerated Well -Debridement - Subq, 1st 20sq cm No -Apply Skin Sub - 1st 25 sq cm - Legs 1 -Epifix Mesh Application 1-4 (per sq 11 cm) Pain Scale: 0-10 Numeric Is Patient Pain Free? Yes WC - Nurse 3 - General Ulcer D/C NN Start: 06/22/25 09:04 Freq: Status: Active Protocol: Activity Type Activity Date Activity User E-sign Co-sign Detail Recorded Client Recorded Date Recorded By Document 06/22/25 10:00 ML [id number] 06/22/25 10:01 ML 06/22/25 10:00 Wound Care Center Nurse 3 #1 L Med Ankle CLUSTER -Primary Dressing Applied Aquacel Extra -Other Dressing PT BROUGHT OWN AQUACEL EXTRA -Primary Dressing Covered/Secured with Dry Gauze & Roll Gauze, Secured with Tape -Aquacel Extra 0 LLE -Tubular Bandage Double Layer -Size of Tubigrip Used Size D -Size D ($) 2 Pain Scale: 0-10 Numeric Is Patient Pain [...] left ankle with fat layer exposed (3) Venous insufficiency (chronic) (peripheral): CODE(S): I87.2 - Venous insufficiency (chronic) (peripheral) (4) Bilateral lower extremity edema: CODE(S): R60.0 - Localized edema PLAN: Plan Patient seen and evaluated Predebridement measurement 4.3 cm x 1.3 cm x 0.1 cm Postdebridement measurement 4.4 cm x 1.4 cm x 0.1 cm Ulceration site did undergo debridement as noted in the clinical panel above. Localized erythema from 06/01/25 has improved on oral antibiotic and Dakin's wash. Following debridement, EpiFix graft #4 ([id number]) was applied to the ulcerative bed. No signs of infection or ulcerative bed at graft placement. Site was thendressed with wound veil and anchored with Steri-Strips. Aquacel extra applied over graft site and dressed with dry sterile dressing. Double Tubigrip stockingapplied for compression. There is decreased in size of ulceration in terms of width versus previous visit with edema improved and maintained on Lasix. Swab culture was obtained of the site 05/18/2025. Results demonstrate strep agalactiae and Serratia marcescens. Due to positive cultures following his Dakin's wash he was prescribed doxycycline 100 mg twice daily x 14 days and ciprofloxacin 500 mg twice daily x 14 days (stop date 06/08/2025). There has been improvement in the appearance of the wound and he has finished antibiotic to completion. Stat Doppler for 02/16/2025 was negative for DVT. He did undergo repeat venous study 03/14/25 and underwent venous ablation on April 13. He was [...] was applied for 02/16/2025, awaiting approval. He has been approved for advanced wound care product, EpiFix for application. He is following with Dr. Mckee for procedure to aid in his venous insufficiency. Procedure performed 04/13/25. Recent visit with Dr. cMkee 04/26/2025. Discussed continued diet to aid in healing [...] and care recommendations were made: Dressing: EpiFix, wound veil, Steri-Strips, Aquacel extra, dry sterile dressing,Tubigrip compression. He will change outer dressing as needed. Will continue compression stocking to right lower extremity Wash: Do not get wet left lower extremity Tissue growth optimization: EpiFix Offload: Tubigrip compression Vascular: Does have history of positive venous insufficiency/reflux. Underwent procedure 04/13/2025 as above. Edema: Tubigrip compression and elevation of the lower extremities Infection: No signs of infection Pain: May take wohb-[id number] Tylenol Extra Strength for discomfort Host factors: Chronic venous insufficiency, chronic lower extremity edema, prolonged standing/activity, advanced age complicate healing. I answered all the patient's questions. To return to the wound healing center in 1 week or call sooner if the patient has any questions or concerns. 06/22/25 1316 <Electronically signed by Merrill Burns DPM> Cosigner Signature (if applicable): CC: ~ Signed [facility] Work Phone: 1(634) 558-550809-04-2025 Progress note [facility] [address] [place] [address] Progress Note - Wound Care 06/22/25 1309 MR#: [id number] Acct: [id number] Name: WELLINGTON GONZALEZ Rep #:[id number] : 1945 80 From: Merrill machado DPM PCP: Dr. Randa Joseph, DO Status:REG RCR Location: History of Present Illness Date of Service: 06/22/25 Chief Complaint: Left medial ankle wound History [...] aspect of the left lower extremity. He underwent vascular procedure with Dr. Mckee on 04/13/25. Had follow-up with vascular on 04/26/2025. Has since continuedLasix and edema remains controlled. Has left grafting product in place and states he is changing outer dressing as needed. States he does not sit often. Continues to try to elevating his legs when he does sit. Has finished oral antibiotic and feels site looking better. Still continues standing for long periods of time performing woodworking in his garage. He denies constitutional symptoms. Denies further complaints. Objective Data Objective Data Vital Signs: Vital Signs Temp Pulse Resp BP 98 F 68 16 125/75 H 06/22/25 09:06/22/25 09:06/22/25 09:06/22/25 09:04 Physical Exam Const alert, oriented x3 and no apparent distress General Appearance: cooperative HEENT normocephalic Eyes Eyes Narrative: Wears glasses General Eye: normal appearance of both eyes Neck General: normal visual inspection Lymph Lymphatic: no lymphadenopathy noted and no lymphedema noted Resp normal respiratory effort Cardio regular rate and regular rhythm Extremity no calf tenderness Extremity Narrative: Left lower extremity: Vascular: DP and PT pulses weakly palpable. Capillary fill time to digits is 5 seconds. Normal temperature gradient. There is absent hair growth to digits noted. Dermatological: There is a full-thickness ulceration noted to the medial aspect of the lower extremity/ankle with mixed fibro granular layer. Negative Stemmer sign left foot. There is evidence of stasis dermatitis with hyperpigmentation/hemosiderin deposition/staining of skin left lower extremity. There are varicosities noted of the lower extremity with mild lower extremity edema. There is no erythema or rubor of the left lower extremity. Does have increased edema secondary to his vascular procedure, but this is well- controlledwith Lasix now. Musculoskeletal: Muscle strength 5 of 5 age-appropriate. There is decreased range of motion of the ankle joint dorsiflexion with knee extended without pain or crepitus. Decreased range of motion of the STJ, MTJ, and first MTPJ without pain or crepitus. No pain to palpation of calf. Skin no rashes or lesions noted General Skin Exam: venous stasis and dermatitis Neuro moves all extremities Debridement Note Debridement Note Wound debrided: Left medial ankle Laterality: Left Wound Grade/Stage: Cisneros stage I Type of Debridement: Excisional debridement Anesthesia Used: 5% Lidocaine Gel Depth: Down to and including healthy tissue and in the subcutaneous layer Percentage of wound debrided: 100 Instrument Used: 7mm curette Tissue Removed: Fibrous, devitalized subcutaneous, biofilm, slough Severity: Fat Layer Exposed Amount of bleeding with debridement: Mild Bleeding Controlled with: Compression and gauze Patient tolerated procedure: Patient tolerated procedure well Post-Debridement Measurements and Additional Note: Post-Debridement Measurements/Treatment - Nurse 1 - General Ulcer Assessment Start: 06/22/25 09:04 Freq: Status: Active Protocol: ANAYA Activity Type Activity Date Activity User E-sign Co-sign Detail Recorded Client Recorded Date Recorded By Document 06/22/25 09:04 MARIELA [id number] 06/22/25 09:10 DL 06/22/25 09:04 [facility] - Today's Visit Information Type of service Follow-up Visit (Physician/COFFEE SHOP ATTENDANT ) Arrival Mode Ambulatory Transfer Assistance None Patient Identification Verified (Name & Yes ) Patient Requires Transmission-Based No Precautions Vital Signs Temperature (97.8 F-99.1 F) 98 F Temperature Source Temporal Pulse Rate (60-100) 68 Pulse Location Monitor Respiratory Rate (12-18) 16 Respiratory rate source Observation Blood Pressure (90/60-120/80) 125/75 H Blood Pressure Mean (mm Hg) 91 Source Monitor History Since Last Visit- (Skip if this [...] 0-10 Numeric Is Patient Pain Free? Yes [facility] - Nurse 1 - General Ulcer Measurement Start: 06/22/25 09:04 Freq: Status: Active Protocol: Activity Type Activity Date Activity User E-sign Co-sign Detail Recorded Client Recorded Date Recorded By Document 06/22/25 09:04 DL [id number] 06/22/25 09:10 DL 06/22/25 09:04 Wound Center Nurse 1 #1 L Med Ankle CLUSTER -Current Size (cm) - Length 4.3 -Current Size (cm) - Width 1.5 -Current Size (cm) - Depth 0.1 -Total Square Cm 6.45 -Photo Taken Yes -Exudate Amt Small -Exudate Type Serosanguineous -Wound Margin Thickened -Granulation Amt Medium (34-66%) -Granulation Quality Red -Necrosis Amt Medium (34-66%) -Necrotic Tissue Type Adherent Slough -Structure Exposed N/A -Texture (Megan-wound Skin Appearance) Scarring -Moisture (Megan-wound Skin Appearance) Dry/Scaly -Color (Megan-wound Skin Appearance) Hemosiderin Staining -Temperature (Megan-wound Skin No Abnormality Appearance) (Pt Warm) -Tenderness on Palpation (Megan-wound No Skin Appearance) -Ulcer Cleansing Soap and Water -Foul Odor after Cleansing No -Anesthetic Used 5% Lidocaine Gel Left Calf (cm) 38.5 Left Ankle (cm) 22.8 WC - Nurse 2 - General Ulcer CM Notes Start: 06/22/25 09:04 Freq: Status: Active Protocol: Activity Type Activity Date Activity User E-sign Co-sign Detail Recorded Client Recorded Date Recorded By Document 06/22/25 09:33 [facility] [id number] 06/22/25 09:44 [facility] 06/22/25 09:33 Wound Center Nurse 2 #1 L Med Ankle CLUSTER -Time 09:33 -Correct Patient Yes -Correct Side, Site, Position Yes -Correct Procedure Yes -Procedure Performed Yes -Type of Procedure Debridement -Clinical Debridement Subcutaneous -Tissue Removed Subcutaneous -Post Debridement (cm) - Length 4.4 -Post Debridement (cm) - Width 1.4 -Post Debridement (cm) - Depth 0.1 -Total Square (Post) (cm) 6.16 -Area of Debridement (cm) - Length 4.4 -Area of Debridement (cm) - Width 1.4 -Total Square (Area) (cm) 6.16 -Tunneling No -Undermining/Tunneling No -Circular Undermining No -Wound/Ulcer Outcome Not Healed -Ulcer Cleansing Rinsed/ Irrigated with Saline -Foul Odor after Cleansing No -Bioengineered Tissue Yes -Type of Bioengineered Tissue Epifix Mesh -Expiration Date 10/19/29 -Product Lot Number [id number] -Percent Used 100 -Lot number of Saline Used [id number] -Bleeding Controlled with Pressure -Treatment Response Procedure Tolerated Well -Debridement - Subq, 1st 20sq cm No -Apply Skin Sub - 1st 25 sq cm - Legs 1 -Epifix Mesh Application 1-4 (per sq 11 cm) Pain Scale: 0-10 Numeric Is Patient Pain Free? Yes - Nurse 3 - General Ulcer D/C NN Start: 06/22/25 09:04 Freq: Status: Active Protocol: Activity Type Activity Date Activity User E-sign Co-sign Detail Recorded Client Recorded Date Recorded By Document 06/22/25 10:00 ML [id number] 06/22/25 10:01 ML 06/22/25 10:00 Wound Care Center Nurse 3 #1 L Med Ankle CLUSTER -Primary Dressing Applied Aquacel Extra -Other Dressing PT BROUGHT OWN AQUACEL EXTRA -Primary Dressing Covered/Secured with Dry Gauze & Roll Gauze, Secured with Tape -Aquacel Extra 0 LLE -Tubular Bandage Double Layer -Size of Tubigrip Used Size D -Size D ($) 2 Pain Scale: 0-10 Numeric Is Patient Pain [...] left ankle with fat layer exposed (3) Venous insufficiency (chronic) (peripheral): CODE(S): I87.2 - Venous insufficiency (chronic) (peripheral) (4) Bilateral lower extremity edema: CODE(S): R60.0 - Localized edema PLAN: Plan Patient seen and evaluated Predebridement measurement 4.3 cm x 1.3 cm x 0.1 cm Postdebridement measurement 4.4 cm x 1.4 cm x 0.1 cm Ulceration site did undergo debridement as noted in the clinical panel above. Localized erythema from 06/01/25 has improved on oral antibiotic and Dakin's wash. Following debridement, EpiFix graft #4 ([id number]) was applied to the ulcerative bed. No signs of infection or ulcerative bed at graft placement. Site was thendressed with wound veil and anchored with Steri-Strips. Aquacel extra applied over graft site and dressed with dry sterile dressing. Double Tubigrip stockingapplied for compression. There is decreased in size of ulceration in terms of width versus previous visit with edema improved and maintained on Lasix. Swab culture was obtained of the site 05/18/2025. Results demonstrate strep agalactiae and Serratia marcescens. Due to positive cultures following his Dakin's wash he was prescribed doxycycline 100 mgtwice daily x 14 days and ciprofloxacin 500 mg twice daily x 14 days (stop date 06/08/2025). There has been improvement in the appearance of the wound and he has finished antibiotic to completion. Stat Doppler for 02/16/2025 was negative for DVT. He did undergo repeat venous study 03/14/25 and underwent venous ablation on April 13. He was [...] was applied for 02/16/2025, awaiting approval. He has been approved for advanced wound care product, EpiFix for application. He is following with Dr. Mckee for procedure to aid in his venous insufficiency. Procedure performed 04/13/25. Recent visit with Dr. Mckee 04/26/2025. Discussed continued diet to aid in healing [...] and care recommendations were made: Dressing: EpiFix, wound veil, Steri-Strips, Aquacel extra, dry sterile dressing,Tubigrip compression. He will change outer dressing as needed. Will continue compression stocking to right lower extremity Wash: Do not get wet left lower extremity Tissue growth optimization: EpiFix Offload: Tubigrip compression Vascular: Does have history of positive venous insufficiency/reflux. Underwent procedure 04/13/2025 as above. Edema: Tubigrip compression and elevation of the lower extremities Infection: No signs of infection Pain: May take eear-xsw-euhkyyx Tylenol Extra Strength for discomfort Host factors: Chronic venous insufficiency, chronic lower extremity edema, prolonged standing/activity, advanced age complicate healing. I answered all the patient's questions. To return to the wound healing center in 1 week or call sooner if the patient has any questions or concerns. 06/22/25 1316 Cosigner Signature (if applicable): CC: ~ Signed [facility]08-28-2025 Progress note Author Merrill Burns [facility] Note Date/Time June 15, 2025 10 :12am [facility] [address] [place] [address] Progress Note - Wound Care 06/15/25 1006 MR#: [id number] Acct: [id number] Name: WELLINGTON GONZALEZ Rep #:[id number] : 1945 80 From: Merrill machado DPM PCP: Dr. Randa Joseph, DO Status:REG RCR Location: History of Present Illness Date of Service: 06/15/25 Chief Complaint: Left medial ankle wound History [...] aspect of the left lower extremity. He underwent vascular procedure with Dr. Mckee on 04/13/25. Had follow-up with vascular on 04/26/2025. Has since continuedLasix with edema now controlled. Edema has improved and drainage also improved.Has left grafting product in place and states he is changing outer dressing as needed. States he does not sit often. Continues to try to elevating his legs when he does sit. Continues oral antibiotic and state site is looking better and feeling better. Still continues standing for long periods of time performing woodworking in his garage. He denies constitutional symptoms. Denies furthercomplaints. Objective Data Objective Data Vital Signs: Vital Signs Temp Pulse Resp BP O2 Del Method 96.8 F L 77 18 144/70 H Room Air 06/15/25 09:10 06/15/25 09:10 06/15/25 09:10 06/15/25 09:10 06/08/25 09:33 Oxygen Delivery Method Room Air Physical Exam Const alert, oriented x3 and no apparent distress General Appearance: cooperative HEENT normocephalic Eyes General Eye: normal appearance of both eyes Neck General: normal visual inspection Lymph Lymphatic: no lymphadenopathy noted and no lymphedema noted Resp normal respiratory effort Cardio regular rate and regular rhythm Extremity no calf tenderness Extremity Narrative: Left lower extremity: Vascular: DP and PT pulses weakly palpable. Capillary fill time to digits is 5 seconds. Normal temperature gradient. There is absent hair growth to digits noted. Dermatological: There is a full-thickness ulceration noted to the medial aspect of the lower extremity/ankle with mixed fibro granular layer. Negative Stemmer sign left foot. There is evidence of stasis dermatitis with hyperpigmentation/hemosiderin deposition/staining of skin left lower extremity. There are varicosities noted of the lower extremity with mild lower extremity edema. There is no erythema or rubor of the left lower extremity. Does have increased edema secondary to his vascular procedure, but this is well-controlledwith Lasix now. Musculoskeletal: Muscle strength 5 of 5 age-appropriate. There is decreased range of motion of the ankle joint dorsiflexion with knee extended without pain or crepitus. Decreased range of motion of the STJ, MTJ, and first MTPJ without pain or crepitus. No pain to palpation of calf. Skin no rashes or lesions noted General Skin Exam: venous stasis and dermatitis Neuro moves all extremities Debridement Note Debridement Note Wound debrided: Left medial ankle Laterality: Left Wound Grade/Stage: Cisneros stage I [...] Nurse 1 - General Ulcer Assessment Start: 05/22/25 09:37 Freq: Status: Active Protocol: [facility]NAElevate DigitalMyra Activity Type Activity Date Activity User E-sign Co-sign Detail Recorded Client Recorded Date Recorded By Document 05/22/25 09:38 JF [id number] 05/22/25 09:39 JF Document 05/25/25 09:44 DL [id number] 05/25/25 09:52 DL Document 05/29/25 11:31 JF [id number] 05/29/25 11:34 JF Document 06/01/25 09:52 DL [id number] 06/01/25 10:02 DL Document 06/08/25 09:33 KW [id number] 06/08/25 09:42 KW Document 06/15/25 09:10 DL [id number] 06/15/25 09:18 DL 05/22/25 05/25/25 05/29/25 09:38 09:44 11:31 [facility] Today's Visit Information Type of service Nurse-only Follow-up Visit Nurse-only Visit (Physician/COFFEE SHOP ATTENDANT Visit ) Arrival Mode Ambulatory Ambulatory Ambulatory Transfer Assistance Manual Patient Identification Verified (Name & No Yes Yes ) Patient Requires Transmission-Based No No Precautions Vital Signs Temperature (97.8 F-99.1 F) 96.7 F L 96.9 F L 97.6 F L Temperature Source Temporal Temporal Temporal Pulse Rate (60-100) 70 65 66 Pulse Location Monitor Monitor Monitor Respiratory Rate (12-18) 16 18 18 Respiratory rate source Observation Observation Observation Oxygen Delivery Method Blood Pressure (90/60-120/80) 118/57 L 133/74 H 118/80 Blood Pressure Mean (mm Hg) 77 93 92 Source Monitor Monitor Monitor Position Sitting Semi-Fowlers Blood Pressure Location Left Arm Left [...] Is Patient Pain Free? Yes Yes Yes 06/01/25 06/08/25 06/15/25 09:52 09:33 09:10 WC - Today's Visit Information Type of service Follow-up Visit Follow-up Visit Follow-up Visit (Physician/COFFEE SHOP ATTENDANT (Physician/COFFEE SHOP ATTENDANT (Physician/COFFEE SHOP ATTENDANT ) ) ) Arrival Mode Ambulatory Ambulatory Ambulatory Transfer Assistance None None Patient Identification Verified (Name & Yes Yes Yes ) Patient Requires Transmission-Based No No Precautions Vital Signs Temperature (97.8 F-99.1 F) 96.7 F L 96.3 F L 96.8 F L Temperature Source Temporal Temporal Temporal Pulse Rate (60-100) 60 66 77 Pulse Location Monitor Monitor Monitor Respiratory Rate (12-18) 18 18 18 Respiratory rate source Observation Observation Observation Oxygen Delivery Method Room Air Blood Pressure (90/60-120/80) 119/71 141/74 H 144/70 H Blood Pressure Mean (mm Hg) 87 96 94 Source Monitor Monitor Monitor Position Semi-Fowlers Blood Pressure Location Right [...] Has offloadiing in place as prescribed Yes N/A N/A Experienced any changes in pain level or No No No management Left Footwear Regular Shoe Regular Shoe Right Footwear Regular Shoe Regular Shoe Pain Scale: 0-10 Numeric Is Patient Pain Free? Yes Yes Yes - Nurse 1 - General Ulcer Measurement Start: 05/22/25 09:37 Freq: Status: Active Protocol: Activity Type Activity Date Activity User E-sign Co-sign Detail Recorded Client Recorded Date Recorded By Document 05/22/25 09:38 JF [id number] 05/22/25 09:39 JF Document 05/25/25 09:44 DL [id number] 05/25/25 09:52 DL Document 05/29/25 11:31 JF [id number] 05/29/25 11:34 JF Document 06/01/25 09:52 DL [id number] 06/01/25 10:02 DL Document 06/08/25 09:33 KW [id number] 06/08/25 09:42 KW Document 06/15/25 09:10 DL [id number] 06/15/25 09:18 DL 05/22/25 05/25/25 05/29/25 09:38 09:44 11:31 Wound Center Nurse 1 #1 L Med Ankle CLUSTER -Combined with other wound No -Current Size (cm) - Length 6 5.0 -Current Size (cm) - Width 1.8 1.8 -Current Size (cm) - Depth 0.1 0.2 -Total Square Cm 10.8 9.00 -Date of Last Picture (Recall this field) -Photo Taken Yes No -Epithelialization Small 1-33% -Tunneling No -Undermining/Tunneling No -Circular Undermining No -Exudate Amt Medium Small -Exudate Type Serosanguineous Serosanguineous -Wound Margin Thickened Flat & Intact -Granulation Amt Medium (34-66%) Large (67-100%) -Granulation Quality Red [place] -Slough/Fibrin Yes -Necrosis Amt Medium (34-66%) Small (1-33%) -Necrotic Tissue Type Adherent Slough Adherent Slough -Structure Exposed N/A N/A -Texture (Megan-wound Skin Appearance) Scarring Assessed, Localized Edema -Moisture (Megan-wound Skin Appearance) No Abnormality Assessed,Dry/ Scaly -Color (Megan-wound Skin Appearance) No Abnormality Assessed, Hemosiderin Staining -Temperature (Megan-wound Skin No Abnormality No Abnormality Appearance) (Pt Warm) (Pt Warm) -Tenderness on Palpation (Megan-wound No Skin Appearance) -Ulcer Cleansing Soap and Water DAKIN'S -Foul Odor after Cleansing No No -Anesthetic Used 5% Lidocaine Gel Lower Limb Edema Present NA Yes Left Calf (cm) 37.2 Left Ankle (cm) 38.9 06/01/25 06/08/25 06/15/25 09:52 09:33 09:10 Wound Center Nurse 1 #1 L Med Ankle CLUSTER -Combined with other wound -Current Size (cm) - Length 4 2 6 -Current Size (cm) - Width 1.3 5.5 1.7 -Current Size (cm) - Depth 0.1 0.2 0.1 -Total Square Cm 5.2 11.0 10.2 -Date of Last Picture (Recall this 06/08/25 field) -Photo Taken Yes Yes -Epithelialization -Tunneling -Undermining/Tunneling -Circular Undermining -Exudate Amt Medium Large Medium -Exudate Type Serosanguineous Serosanguineous Serosanguineous -Wound Margin Distinct, Distinct, Distinct, Outline Outline Outline Attached Attached Attached -Granulation Amt Large (67-100%) Large (67-100%) Medium (34-66%) -Granulation Quality [place] Red [place],Red -Slough/Fibrin -Necrosis Amt Small (1-33%) Small (1-33%) Medium (34-66%) -Necrotic Tissue Type Adherent Slough Adherent Slough Adherent Slough -Structure Exposed N/A N/A -Texture (Megan-wound Skin Appearance) Scarring Assessed Scarring -Moisture (Megan-wound Skin Appearance) Dry/Scaly Assessed, Dry/Scaly Maceration -Color (Megan-wound Skin Appearance) Hemosiderin Assessed, No Abnormality Staining Erythema -Temperature (Megan-wound Skin No Abnormality No Abnormality No Abnormality Appearance) (Pt Warm) (Pt Warm) (Pt Warm) -Tenderness on Palpation (Megan-wound No No No Skin Appearance) -Ulcer Cleansing Soap and Water Soap and Water Soap and Water -Foul Odor after Cleansing No No -Anesthetic Used 5% Lidocaine 5% Lidocaine 5% Lidocaine Gel Gel Gel Lower Limb Edema Present Left Calf (cm) 41.5 39.5 Left Ankle (cm) 22.7 23 WC - Nurse 2 - General Ulcer CM Notes Start: 05/22/25 09:37 Freq: Status: Active Protocol: Activity Type Activity Date Activity User E-sign Co-sign Detail Recorded Client Recorded Date Recorded By Document 05/25/25 10:32 DS [id number] 05/25/25 10:34 DS Document 06/01/25 10:08 [facility] [id number] 06/01/25 10:19 BM Document 06/08/25 10:08 BM [id number] 06/08/25 10:17 BMF Document 06/15/25 09:22 BM [id number] 06/15/25 09:31 BMF 05/25/25 06/01/25 06/08/25 10:32 10:08 10:08 Wound Center Nurse 2 #1 L Med Ankle CLUSTER -Time 10:33 10:08 10:08 -Correct Patient Yes Yes Yes -Correct Side, Site, Position Yes Yes Yes -Correct Procedure Yes Yes Yes -Procedure Performed Yes Yes Yes -Type of Procedure Debridement Debridement Debridement -Clinical Debridement Subcutaneous Subcutaneous Subcutaneous -Tissue Removed Subcutaneous Subcutaneous Subcutaneous -Post Debridement (cm) - Length 4.5 4.9 4.6 -Post Debridement (cm) - Width 2.2 2 1.9 -Post Debridement (cm) - Depth 0.1 0.1 0.1 -Total Square (Post) (cm) 9.90 9.8 8.74 -Area of Debridement (cm) - Length 4.5 4.9 4.6 -Area of Debridement (cm) - Width 2.2 2 1.9 -Total Square (Area) (cm) 9.90 9.8 8.74 -Tunneling No No No -Undermining/Tunneling No No No -Circular Undermining No No No -Wound/Ulcer Outcome Not Healed Not Healed Not Healed -Ulcer Cleansing Rinsed/ Rinsed/ Rinsed/ Irrigated with Irrigated with Irrigated with Saline Saline Saline -Foul Odor after Cleansing No No No -Bioengineered Tissue No Yes Yes -Type of Bioengineered Tissue Epifix Mesh Epifix Mesh -Expiration Date 10/19/29 10/19/29 -Product Lot Number [id number] -Percent Used 100 100 -Lot number of Saline Used [id number] -Bleeding Controlled with Pressure Pressure Pressure -Treatment Response Procedure Procedure Procedure Tolerated Well Tolerated Well Tolerated Well -Debridement - Subq, 1st 20sq cm Yes No No -Apply Skin Sub - 1st 25 sq cm - Legs 1 1 -Epifix Mesh Application 1-4 (per sq 11 11 cm) Pain Scale: 0-10 Numeric Is Patient Pain Free? Yes Yes Yes 06/15/25 09:22 Wound Center Nurse 2 #1 L Med Ankle CLUSTER -Time 09:22 -Correct Patient Yes -Correct Side, Site, Position Yes -Correct Procedure Yes -Procedure Performed Yes -Type of Procedure Debridement -Clinical Debridement Subcutaneous -Tissue Removed Subcutaneous -Post Debridement (cm) - Length 4.4 -Post Debridement (cm) - Width 1.5 -Post Debridement (cm) - Depth 0.1 -Total Square (Post) (cm) 6.60 -Area of Debridement (cm) - Length 4.4 -Area of Debridement (cm) - Width 1.5 -Total Square (Area) (cm) 6.60 -Tunneling No -Undermining/Tunneling No -Circular Undermining No -Wound/Ulcer Outcome Not Healed -Ulcer Cleansing Rinsed/ Irrigated with Saline -Foul Odor after Cleansing No -Bioengineered Tissue Yes -Type of Bioengineered Tissue Epifix Mesh -Expiration Date 10/19/29 -Product Lot Number [id number] -Percent Used 100 -Lot number of Saline Used [id number] -Bleeding Controlled with Pressure -Treatment Response Procedure Tolerated Well -Debridement - Subq, 1st 20sq cm No -Apply Skin Sub - 1st 25 sq cm - Legs 1 -Epifix Mesh Application 1-4 (per sq 11 cm) Pain Scale: 0-10 Numeric Is Patient Pain Free? Yes - Nurse 3 - General Ulcer D/C NN Start: 05/22/25 09:37 Freq: Status: Active Protocol: Activity Type Activity Date Activity User E-sign Co-sign Detail Recorded Client Recorded Date Recorded By Document 05/22/25 09:38 JF [id number] 05/22/25 09:39 JF Document 05/25/25 10:58 DL [id number] 05/25/25 11:00 DL Document 05/29/25 11:31 JF [id number] 05/29/25 11:34 JF Document 06/01/25 10:29 MT [id number] 06/01/25 10:37 MT Document 06/08/25 10:25 DL [id number] 06/08/25 10:27 DL Document 06/15/25 09:38 BMF [id number] 06/15/25 09:39 BMF 05/22/25 05/25/25 05/29/25 09:38 10:58 11:31 Pain Scale: 0-10 Numeric Is Patient Pain Free? Yes Yes Yes Wound Care Center Nurse 3 #1 L Med Ankle CLUSTER -Ulcer Cleansing Rinsed/ dakins Irrigated with Saline -Foul Odor after Cleansing No -Negative Pressure Wound Therapy -Foam Supply Charges Patient Supplied Dressing -Primary Dressing Applied Aquacel Extra, NonAdherent Contact Layer, Promogran Abran Matter -Other Dressing Unna ABRAN/ADAPTIC AND AQUACEL EXTRA -Primary Dressing Covered/Secured with Dry Gauze & Dry Gauze Roll Gauze -Aquacel Extra 1 -Promogran Abran Matter 1 -Wound Comment(s) use patient's own supply of abran and aqaucel extra LLE -Multi-Layered Wrap Application Unna Boot - Unna Boot - Unna Boot - Left Left Left -Tubular Bandage -Size of Tubigrip Used -Size D ($) -Stockings -Unna- Left (Qty applied) 1 1 1 Treatment Response Procedure Tolerated Well WC - Visit Discharge Discharge Condition Stable Stable Stable Ambulatory Status Ambulatory Ambulatory Ambulatory Transportation Private Auto Private Auto Private Auto Medication Reconcilliation completed & Yes Yes provided to patient/care provider Clinical Summary of Care Provided Yes Yes Notes: 06/01/25 06/08/25 06/15/25 10:29 10:25 09:38 Pain Scale: 0-10 Numeric Is Patient Pain Free? Yes Yes Yes Wound Care Center Nurse 3 #1 L Med Ankle CLUSTER -Ulcer Cleansing -Foul Odor after Cleansing No No -Negative Pressure Wound Therapy N/A -Foam Supply Charges -Primary Dressing Applied Aquacel Extra Aquacel Extra -Other Dressing Aqaucel EX/ abd Epimesh -Primary Dressing Covered/Secured with Dry Gauze,Dry Dry Gauze & Dry Gauze & Gauze & Roll Roll Gauze, Roll Gauze, Gauze,Secured Secured with Secured with with Tape Tape Tape -Aquacel Extra 1 1 -Promogran Abran Matter -Wound Comment(s) LLE -Multi-Layered Wrap Application -Tubular Bandage Double Layer Double Layer -Size of Tubigrip Used Size D Size D Size D -Size D ($) 2 2 -Stockings No -Unna- Left (Qty applied) Treatment Response WC - Visit Discharge Discharge Condition Stable Stable Stable Ambulatory Status Ambulatory Ambulatory Ambulatory Transportation Private Auto Private Auto Private Auto Medication Reconcilliation completed & No provided to patient/care provider Clinical Summary of Care Provided Yes Notes: explained the new wound orders to the patient. the pt seemed very confused about dressing change if it get soiled. i went over the new orders line by line with the pt. i also instructed the pt to call if he had any issues. Assessment/Plan Assessment/Plan (1) Non-pressure chronic ulcer of left calf with fat layer exposed: CODE(S): L97.222 - Non-pressure chronic ulcer of left calf with fat layer exposed (2) Cellulitis of left lower limb: CODE(S): L03.116 - Cellulitis of left lower limb (3) Venous insufficiency (chronic) (peripheral): CODE(S): I87.2 - Venous insufficiency (chronic) (peripheral) (4) Bilateral lower extremity edema: CODE(S): R60.0 - Localized edema (5) Venous stasis ulcer of ankle with fat [...] of left ankle with fat layer exposed PLAN: Plan Patient seen and evaluated Predebridement measurement 4.3 cm x 1.4 cm x 0.1 cm Postdebridement measurement 4.4 cm x 1.5 cm x 0.1 cm Ulceration site did undergo debridement as noted in the clinical panel above. Localized erythema from 06/01/25 has improved on oral antibiotic and Dakin's wash. Following debridement, EpiFix graft #3 ([id number]) was applied to the ulcerative bed. No signs of infection or ulcerative bed at graft placement. Site was thendressed with wound veil and anchored with Steri-Strips. Aquacel extra applied over graft site and dressed with dry sterile dressing. Double Tubigrip stockingapplied for compression. There is decreased in size of ulceration in terms of length and width versus previous visit with edema improved and maintained on Lasix. Swab culture was obtained of the site 05/18/2025. Results demonstrate strep agalactiae and Serratia marcescens. Due to positive cultures following his Dakin's wash he was prescribed doxycycline 100 mg twice daily x 14 days and ciprofloxacin 500 mg twice daily x 14 days (stop date 06/08/2025). There has been improvement in the appearance of the wound he has finished antibiotic to completion. Stat Doppler for 02/16/2025 was negative for DVT. He did undergo repeat venous study 03/14/25 and underwent venous ablation on April 13. He was [...] was applied for 02/16/2025, awaiting approval. He has been approved for advanced wound care product, EpiFix for application. He is following with Dr. Mckee for procedure to aid in his venous insufficiency. Procedure performed 04/13/25. Recent visit with Dr. Mckee 04/26/2025. Discussed continued diet to aid in healing [...] and care recommendations were made: Dressing: EpiFix, wound veil, Steri-Strips, Aquacel extra, dry sterile dressing,Tubigrip compression. He will change outer dressing as needed. Will continue compression stocking to right lower extremity Wash: Do not get wet left lower extremity Tissue growth optimization: EpiFix Offload: Tubigrip compression Vascular: Does have history of positive venous insufficiency/reflux. Underwent procedure 04/13/2025 as above. Edema: Tubigrip compression and elevation of the lower extremities Infection: No signs of infection Pain: May take [id number] Tylenol Extra Strength for discomfort Host factors: Chronic venous insufficiency, chronic lower extremity edema, prolonged standing/activity, advanced age complicate healing. I answered all the patient's questions. To return to the wound healing center in 1 week or call sooner if the patient has any questions or concerns. 06/15/25 1012 <Electronically signed by Merrill Burns DPM> Cosigner Signature (if applicable): CC: ~ Signed [facility] Work Phone: [phone] [phone] Progress note [facility] [address] [place] [address] Progress Note - Wound Care 06/15/25 1006 MR#: [id number] Acct: [id number] Name: WELLINGTON GONZALEZ Rep #:[id number] : 1945 80 From: Merrill machado DPM PCP: Dr. Randa Joseph, DO Status:REG RCR Location: History of Present Illness Date of Service: 06/15/25 Chief Complaint: Left medial ankle wound History [...] aspect of the left lower extremity. He underwent vascular procedure with Dr. Mckee on 04/13/25. Had follow-up with vascular on 04/26/2025. Has since continuedLasix with edema now controlled. Edema has improved and drainage also improved.Has left grafting product in place and states he is changing outer dressing as needed. States he does not sit often. Continues to try to elevating his legs when he does sit. Continues oral antibiotic and state site is looking better and feeling better. Still continues standing for long periods of time performing woodworking in his garage. He denies constitutional symptoms. Denies furthercomplaints. Objective Data Objective Data Vital Signs: Vital Signs Temp Pulse Resp BP O2 Del Method 96.8 F L 77 18 144/70 H Room Air 06/15/25 09:10 06/15/25 09:10 06/15/25 09:10 06/15/25 09:10 06/08/25 09:33 Oxygen Delivery Method Room Air Physical Exam Const alert, oriented x3 and no apparent distress General Appearance: cooperative HEENT normocephalic Eyes General Eye: normal appearance of both eyes Neck General: normal visual inspection Lymph Lymphatic: no lymphadenopathy noted and no lymphedema noted Resp normal respiratory effort Cardio regular rate and regular rhythm Extremity no calf tenderness Extremity Narrative: Left lower extremity: Vascular: DP and PT pulses weakly palpable. Capillary fill time to digits is 5 seconds. Normal temperature gradient. There is absent hair growth to digits noted. Dermatological: There is a full-thickness ulceration noted to the medial aspect of the lower extremity/ankle with mixed fibro granular layer. Negative Stemmer sign left foot. There is evidence of stasis dermatitis with hyperpigmentation/hemosiderin deposition/staining of skin left lower extremity. There are varicosities noted of the lower extremity with mild lower extremity edema. There is no erythema or rubor of the left lower extremity. Does have increased edema secondary to his vascular procedure, but this is well- controlledwith Lasix now. Musculoskeletal: Muscle strength 5 of 5 age-appropriate. There is decreased range of motion of the ankle joint dorsiflexion with knee extended without pain or crepitus. Decreased range of motion of the STJ, MTJ, and first MTPJ without pain or crepitus. No pain to palpation of calf. Skin no rashes or lesions noted General Skin Exam: venous stasis and dermatitis Neuro moves all extremities Debridement Note Debridement Note Wound debrided: Left medial ankle Laterality: Left Wound Grade/Stage: Cisneros stage I [...] Post-Debridement Measurements and Additional Note: Post-Debridement Measurements/Treatment [facility] Nurse 1 - General Ulcer Assessment Start: 05/22/25 09:37 Freq: Status: Active Protocol: .SHREYA Activity Type Activity Date Activity User E-sign Co-sign Detail Recorded Client Recorded Date Recorded By Document 05/22/25 09:38 JF [id number] 05/22/25 09:39 JF Document 05/25/25 09:44 DL [id number] 05/25/25 09:52 DL Document 05/29/25 11:31 JF [id number] 05/29/25 11:34 JF Document 06/01/25 09:52 DL [id number] 06/01/25 10:02 DL Document 06/08/25 09:33 KW [id number] 06/08/25 09:42 KW Document 06/15/25 09:10 DL [id number] 06/15/25 09:18 DL 05/22/25 05/25/25 05/29/25 09:38 09:44 11:31 [facility] Today's Visit Information Type of service Nurse-only Follow-up Visit Nurse-only Visit (Physician/COFFEE SHOP ATTENDANT Visit ) Arrival Mode Ambulatory Ambulatory Ambulatory Transfer Assistance Manual Patient Identification Verified (Name & No Yes Yes ) Patient Requires Transmission-Based No No Precautions Vital Signs Temperature (97.8 F-99.1 F) 96.7 F L 96.9 F L 97.6 F L Temperature Source Temporal Temporal Temporal Pulse Rate (60-100) 70 65 66 Pulse Location Monitor Monitor Monitor Respiratory Rate (12-18) 16 18 18 Respiratory rate source Observation Observation Observation Oxygen Delivery Method Blood Pressure (90/60-120/80) 118/57 L 133/74 H 118/80 Blood Pressure Mean (mm Hg) 77 93 92 Source Monitor Monitor Monitor Position Sitting Semi-Fowlers Blood Pressure Location Left Arm Left [...] Is Patient Pain Free? Yes Yes Yes 06/01/25 06/08/25 06/15/25 09:52 09:33 09:10 WC - Today's Visit Information Type of service Follow-up Visit Follow-up Visit Follow-up Visit (Physician/COFFEE SHOP ATTENDANT (Physician/COFFEE SHOP ATTENDANT (Physician/COFFEE SHOP ATTENDANT ) ) ) Arrival Mode Ambulatory Ambulatory Ambulatory Transfer Assistance None None Patient Identification Verified (Name & Yes Yes Yes ) Patient Requires Transmission-Based No No Precautions Vital Signs Temperature (97.8 F-99.1 F) 96.7 F L 96.3 F L 96.8 F L Temperature Source Temporal Temporal Temporal Pulse Rate (60-100) 60 66 77 Pulse Location Monitor Monitor Monitor Respiratory Rate (12-18) 18 18 18 Respiratory rate source Observation Observation Observation Oxygen Delivery Method Room Air Blood Pressure (90/60-120/80) 119/71 141/74 H 144/70 H Blood Pressure Mean (mm Hg) 87 96 94 Source Monitor Monitor Monitor Position Semi-Fowlers Blood Pressure Location Right [...] Has offloadiing in place as prescribed Yes N/A N/A Experienced any changes in pain level or No No No management Left Footwear Regular Shoe Regular Shoe Right Footwear Regular Shoe Regular Shoe Pain Scale: 0-10 Numeric Is Patient Pain Free? Yes Yes Yes WC - Nurse 1 - General Ulcer Measurement Start: 05/22/25 09:37 Freq: Status: Active Protocol: Activity Type Activity Date Activity User E-sign Co-sign Detail Recorded Client Recorded Date Recorded By Document 05/22/25 09:38 JF [id number] 05/22/25 09:39 JF Document 05/25/25 09:44 DL [id number] 05/25/25 09:52 DL Document 05/29/25 11:31 JF [id number] 05/29/25 11:34 JF Document 06/01/25 09:52 DL [id number] 06/01/25 10:02 DL Document 06/08/25 09:33 KW [id number] 06/08/25 09:42 KW Document 06/15/25 09:10 DL [id number] 06/15/25 09:18 DL 05/22/25 05/25/25 05/29/25 09:38 09:44 11:31 Wound Center Nurse 1 #1 L Med Ankle CLUSTER -Combined with other wound No -Current Size (cm) - Length 6 5.0 -Current Size (cm) - Width 1.8 1.8 -Current Size (cm) - Depth 0.1 0.2 -Total Square Cm 10.8 9.00 -Date of Last Picture (Recall this field) -Photo Taken Yes No -Epithelialization Small 1-33% -Tunneling No -Undermining/Tunneling No -Circular Undermining No -Exudate Amt Medium Small -Exudate Type Serosanguineous Serosanguineous -Wound Margin Thickened Flat & Intact -Granulation Amt Medium (34-66%) Large (67-100%) -Granulation Quality Red [place] -Slough/Fibrin Yes -Necrosis Amt Medium (34-66%) Small (1-33%) -Necrotic Tissue Type Adherent Slough Adherent Slough -Structure Exposed N/A N/A -Texture (Megan-wound Skin Appearance) Scarring Assessed, Localized Edema -Moisture (Megan-wound Skin Appearance) No Abnormality Assessed,Dry/ Scaly -Color (Megan-wound Skin Appearance) No Abnormality Assessed, Hemosiderin Staining -Temperature (Megan-wound Skin No Abnormality No Abnormality Appearance) (Pt Warm) (Pt Warm) -Tenderness on Palpation (Megan-wound No Skin Appearance) -Ulcer Cleansing Soap and Water DAKIN'S -Foul Odor after Cleansing No No -Anesthetic Used 5% Lidocaine Gel Lower Limb Edema Present NA Yes Left Calf (cm) 37.2 Left Ankle (cm) 38.9 06/01/25 06/08/25 06/15/25 09:52 09:33 09:10 Wound Center Nurse 1 #1 L Med Ankle CLUSTER -Combined with other wound -Current Size (cm) - Length 4 2 6 -Current Size (cm) - Width 1.3 5.5 1.7 -Current Size (cm) - Depth 0.1 0.2 0.1 -Total Square Cm 5.2 11.0 10.2 -Date of Last Picture (Recall this 06/08/25 field) -Photo Taken Yes Yes -Epithelialization -Tunneling -Undermining/Tunneling -Circular Undermining -Exudate Amt Medium Large Medium -Exudate Type Serosanguineous Serosanguineous Serosanguineous -Wound Margin Distinct, Distinct, Distinct, Outline Outline Outline Attached Attached Attached -Granulation Amt Large (67-100%) Large (67-100%) Medium (34-66%) -Granulation Quality [place] Red [place],Red -Slough/Fibrin -Necrosis Amt Small (1-33%) Small (1-33%) Medium (34-66%) -Necrotic Tissue Type Adherent Slough Adherent Slough Adherent Slough -Structure Exposed N/A N/A -Texture (Megan-wound Skin Appearance) Scarring Assessed Scarring -Moisture (Megan-wound Skin Appearance) Dry/Scaly Assessed, Dry/Scaly Maceration -Color (Megan-wound Skin Appearance) Hemosiderin Assessed, No Abnormality Staining Erythema -Temperature (Megan-wound Skin No Abnormality No Abnormality No Abnormality Appearance) (Pt Warm) (Pt Warm) (Pt Warm) -Tenderness on Palpation (Megan-wound No No No Skin Appearance) -Ulcer Cleansing Soap and Water Soap and Water Soap and Water -Foul Odor after Cleansing No No -Anesthetic Used 5% Lidocaine 5% Lidocaine 5% Lidocaine Gel Gel Gel Lower Limb Edema Present Left Calf (cm) 41.5 39.5 Left Ankle (cm) 22.7 23 WC - Nurse 2 - General Ulcer CM Notes Start: 05/22/25 09:37 Freq: Status: Active Protocol: Activity Type Activity Date Activity User E-sign Co-sign Detail Recorded Client Recorded Date Recorded By Document 05/25/25 10:32 DS [id number] 05/25/25 10:34 DS Document 06/01/25 10:08 BMF [id number] 06/01/25 10:19 BMF Document 06/08/25 10:08 BMF [id number] 06/08/25 10:17 BMF Document 06/15/25 09:22 BMF [id number] 06/15/25 09:31 BMF 05/25/25 06/01/25 06/08/25 10:32 10:08 10:08 Wound Center Nurse 2 #1 L Med Ankle CLUSTER -Time 10:33 10:08 10:08 -Correct Patient Yes Yes Yes -Correct Side, Site, Position Yes Yes Yes -Correct Procedure Yes Yes Yes -Procedure Performed Yes Yes Yes -Type of Procedure Debridement Debridement Debridement -Clinical Debridement Subcutaneous Subcutaneous Subcutaneous -Tissue Removed Subcutaneous Subcutaneous Subcutaneous -Post Debridement (cm) - Length 4.5 4.9 4.6 -Post Debridement (cm) - Width 2.2 2 1.9 -Post Debridement (cm) - Depth 0.1 0.1 0.1 -Total Square (Post) (cm) 9.90 9.8 8.74 -Area of Debridement (cm) - Length 4.5 4.9 4.6 -Area of Debridement (cm) - Width 2.2 2 1.9 -Total Square (Area) (cm) 9.90 9.8 8.74 -Tunneling No No No -Undermining/Tunneling No No No -Circular Undermining No No No -Wound/Ulcer Outcome Not Healed Not Healed Not Healed -Ulcer Cleansing Rinsed/ Rinsed/ Rinsed/ Irrigated with Irrigated with Irrigated with Saline Saline Saline -Foul Odor after Cleansing No No No -Bioengineered Tissue No Yes Yes -Type of Bioengineered Tissue Epifix Mesh Epifix Mesh -Expiration Date 10/19/29 10/19/29 -Product Lot Number [id number] -Percent Used 100 100 -Lot number of Saline Used [id number] -Bleeding Controlled with Pressure Pressure Pressure -Treatment Response Procedure Procedure Procedure Tolerated Well Tolerated Well Tolerated Well -Debridement - Subq, 1st 20sq cm Yes No No -Apply Skin Sub - 1st 25 sq cm - Legs 1 1 -Epifix Mesh Application 1-4 (per sq 11 11 cm) Pain Scale: 0-10 Numeric Is Patient Pain Free? Yes Yes Yes 06/15/25 09:22 Wound Center Nurse 2 #1 L Med Ankle CLUSTER -Time 09:22 -Correct Patient Yes -Correct Side, Site, Position Yes -Correct Procedure Yes -Procedure Performed Yes -Type of Procedure Debridement -Clinical Debridement Subcutaneous -Tissue Removed Subcutaneous -Post Debridement (cm) - Length 4.4 -Post Debridement (cm) - Width 1.5 -Post Debridement (cm) - Depth 0.1 -Total Square (Post) (cm) 6.60 -Area of Debridement (cm) - Length 4.4 -Area of Debridement (cm) - Width 1.5 -Total Square (Area) (cm) 6.60 -Tunneling No -Undermining/Tunneling No -Circular Undermining No -Wound/Ulcer Outcome Not Healed -Ulcer Cleansing Rinsed/ Irrigated with Saline -Foul Odor after Cleansing No -Bioengineered Tissue Yes -Type of Bioengineered Tissue Epifix Mesh -Expiration Date 10/19/29 -Product Lot Number [id number] -Percent Used 100 -Lot number of Saline Used [id number] -Bleeding Controlled with Pressure -Treatment Response Procedure Tolerated Well -Debridement - Subq, 1st 20sq cm No -Apply Skin Sub - 1st 25 sq cm - Legs 1 -Epifix Mesh Application 1-4 (per sq 11 cm) Pain Scale: 0-10 Numeric Is Patient Pain Free? Yes - Nurse 3 - General Ulcer D/C NN Start: 05/22/25 09:37 Freq: Status: Active Protocol: Activity Type Activity Date Activity User E-sign Co-sign Detail Recorded Client Recorded Date Recorded By Document 05/22/25 09:38 ALEJANDRO [id number] 05/22/25 09:39 JF Document 05/25/25 10:58 DL [id number] 05/25/25 11:00 DL Document 05/29/25 11:31 JF [id number] 05/29/25 11:34 JF Document 06/01/25 10:29 MT [id number] 06/01/25 10:37 MT Document 06/08/25 10:25 DL [id number] 06/08/25 10:27 DL Document 06/15/25 09:38 [facility] [id number] 06/15/25 09:39 BM 05/22/25 05/25/25 05/29/25 09:38 10:58 11:31 Pain Scale: 0-10 Numeric Is Patient Pain Free? Yes Yes Yes Wound Care Center Nurse 3 #1 L Med Ankle CLUSTER -Ulcer Cleansing Rinsed/ dakins Irrigated with Saline -Foul Odor after Cleansing No -Negative Pressure Wound Therapy -Foam Supply Charges Patient Supplied Dressing -Primary Dressing Applied Aquacel Extra, NonAdherent Contact Layer, Promogran Abran Matter -Other Dressing Unna ABRAN/ADAPTIC AND AQUACEL EXTRA -Primary Dressing Covered/Secured with Dry Gauze & Dry Gauze Roll Gauze -Aquacel Extra 1 -Promogran Abran Matter 1 -Wound Comment(s) use patient's own supply of abran and aqaucel extra LLE -Multi-Layered Wrap Application Unna Boot - Unna Boot - Unna Boot - Left Left Left -Tubular Bandage -Size of Tubigrip Used -Size D ($) -Stockings -Unna- Left (Qty applied) 1 1 1 Treatment Response Procedure Tolerated Well WC - Visit Discharge Discharge Condition Stable Stable Stable Ambulatory Status Ambulatory Ambulatory Ambulatory Transportation Private Auto Private Auto Private Auto Medication Reconcilliation completed & Yes Yes provided to patient/care provider Clinical Summary of Care Provided Yes Yes Notes: 06/01/25 06/08/25 06/15/25 10:29 10:25 09:38 Pain Scale: 0-10 Numeric Is Patient Pain Free? Yes Yes Yes Wound Care Center Nurse 3 #1 L Med Ankle CLUSTER -Ulcer Cleansing -Foul Odor after Cleansing No No -Negative Pressure Wound Therapy N/A -Foam Supply Charges -Primary Dressing Applied Aquacel Extra Aquacel Extra -Other Dressing Aqaucel EX/ abd Epimesh -Primary Dressing Covered/Secured with Dry Gauze,Dry Dry Gauze & Dry Gauze & Gauze & Roll Roll Gauze, Roll Gauze, Gauze,Secured Secured with Secured with with Tape Tape Tape -Aquacel Extra 1 1 -Promogran Abran Matter -Wound Comment(s) LLE -Multi-Layered Wrap Application -Tubular Bandage Double Layer Double Layer -Size of Tubigrip Used Size D Size D Size D -Size D ($) 2 2 -Stockings No -Unna- Left (Qty applied) Treatment Response WC - Visit Discharge Discharge Condition Stable Stable Stable Ambulatory Status Ambulatory Ambulatory Ambulatory Transportation Private Auto Private Auto Private Auto Medication Reconcilliation completed & No provided to patient/care provider Clinical Summary of Care Provided Yes Notes: explained the new wound orders to the patient. the pt seemed very confused about dressing change if it get soiled. i went over the new orders line by line with the pt. i also instructed the pt to call if he had any issues. Assessment/Plan Assessment/Plan (1) Non-pressure chronic ulcer of left calf with fat layer exposed: CODE(S): L97.222 - Non-pressure chronic ulcer of left calf with fat layer exposed (2) Cellulitis of left lower limb: CODE(S): L03.116 - Cellulitis of left lower limb (3) Venous insufficiency (chronic) (peripheral): CODE(S): I87.2 - Venous insufficiency (chronic) (peripheral) (4) Bilateral lower extremity edema: CODE(S): R60.0 - Localized edema (5) Venous stasis ulcer of ankle with fat [...] of left ankle with fat layer exposed PLAN: Plan Patient seen and evaluated Predebridement measurement 4.3 cm x 1.4 cm x 0.1 cm Postdebridement measurement 4.4 cm x 1.5 cm x 0.1 cm Ulceration site did undergo debridement as noted in the clinical panel above. Localized erythema from 06/01/25 has improved on oral antibiotic and Dakin's wash. Following debridement, EpiFix graft #3 ([id number]) was applied to the ulcerative bed. No signs of infection or ulcerative bed at graft placement. Site was thendressed with wound veil and anchored with Steri-Strips. Aquacel extra applied over graft site and dressed with dry sterile dressing. Double Tubigrip stockingapplied for compression. There is decreased in size of ulceration in terms of length and width versus previous visit with edema improved and maintained on Lasix. Swab culture was obtained of the site 05/18/2025. Results demonstrate strep agalactiae and Serratia marcescens. Due to positive cultures following his Dakin's wash he was prescribed doxycycline 100 mgtwice daily x 14 days and ciprofloxacin 500 mg twice daily x 14 days (stop date 06/08/2025). There has been improvement in the appearance of the wound he has finished antibiotic to completion. Stat Doppler for 02/16/2025 was negative for DVT. He did undergo repeat venous study 03/14/25 and underwent venous ablation on April 13. He was [...] was applied for 02/16/2025, awaiting approval. He has been approved for advanced wound care product, EpiFix for application. He is following with Dr. Mckee for procedure to aid in his venous insufficiency. Procedure performed 04/13/25. Recent visit with Dr. Mckee 04/26/2025. Discussed continued diet to aid in healing [...] and care recommendations were made: Dressing: EpiFix, wound veil, Steri-Strips, Aquacel extra, dry sterile dressing,Tubigrip compression. He will change outer dressing as needed. Will continue compression stocking to right lower extremity Wash: Do not get wet left lower extremity Tissue growth optimization: EpiFix Offload: Tubigrip compression Vascular: Does have history of positive venous insufficiency/reflux. Underwent procedure 04/13/2025 as above. Edema: Tubigrip compression and elevation of the lower extremities Infection: No signs of infection Pain: May take [id number]-rmfozda Tylenol Extra Strength for discomfort Host factors: Chronic venous insufficiency, chronic lower extremity edema, prolonged standing/activity, advanced age complicate healing. I answered all the patient's questions. To return to the wound healing center in 1 week or call sooner if the patient has any questions or concerns. 06/15/25 1012 Cosigner Signature (if applicable): CC: ~ Signed [facility]08-21-2025 Progress note Author Merrill Burns [facility] Note Date/Time June 08, 2025 11 :51am [facility] [address] [place] [address] Progress Note - Wound Care 06/08/25 1145 MR#: [id number] Acct: [id number] Name: WELLINGTON GONZALEZ Rep #:[id number] : 1945 80 From: Merrill machado DPM PCP: Dr. Randa Joseph, DO Status:REG RCR Location: History of Present Illness Date of Service: 06/08/25 Chief Complaint: Left medial ankle wound History [...] aspect of the left lower extremity. He underwent vascular procedure with Dr. Mckee on 04/13/25. Had recent follow-up with vascular on 04/26/2025. Was placed in unna boot compression in addition to being placed on lasix for one week with improvement noted in edema. Has since continued Lasix with edema now controlled. Edema has improved and drainage also improved. States he does not sit often. Continues to try to elevating his legs higher than what he previously had been when he does sit. Continues oral antibiotic and state site is looking better and feeling better. Still continues standing for long periods of time performing woodworking in his garage. He denies constitutional symptoms. Deniesfurther complaints. Objective Data Objective Data Vital Signs: Vital Signs Temp Pulse Resp BP O2 Del Method 96.3 F L 66 18 141/74 H Room Air 06/08/25 09:33 06/08/25 09:33 06/08/25 09:33 06/08/25 09:33 06/08/25 09:33 Oxygen Delivery Method Room Air Physical Exam Const alert, oriented x3 and no apparent distress General Appearance: cooperative HEENT normocephalic Eyes General Eye: normal appearance of both eyes Neck General: normal visual inspection Lymph Lymphatic: no lymphadenopathy noted and no lymphedema noted Resp normal respiratory effort Cardio regular rate and regular rhythm Extremity no calf tenderness Extremity Narrative: Left lower extremity: Vascular: DP and PT pulses weakly palpable. Capillary fill time to digits is 5 seconds. Normal temperature gradient. There is absent hair growth to digits noted. Dermatological: There is a full-thickness ulceration noted to the medial aspect of the lower extremity/ankle with mixed fibro granular layer. Negative Stemmer sign left foot. There is evidence of stasis dermatitis with hyperpigmentation/hemosiderin deposition/staining of skin left lower extremity. There are varicosities noted of the lower extremity with mild lower extremity edema. There is no erythema or rubor of the left lower extremity. Does have increased edema secondary to his vascular procedure. Musculoskeletal: Muscle strength 5 of 5 age-appropriate. There is decreased range of motion of the ankle joint dorsiflexion with knee extended without pain or crepitus. Decreased range of motion of the STJ, MTJ, and first MTPJ without pain or crepitus. No pain to palpation of calf. Skin no rashes or lesions noted General Skin Exam: venous stasis and dermatitis Neuro moves all extremities Debridement Note Debridement Note Wound debrided: Left medial ankle Laterality: Left Wound Grade/Stage: Cisneros stage I [...] Nurse 1 - General Ulcer Assessment Start: 05/22/25 09:37 Freq: Status: Active Protocol: ANAYA Activity Type Activity Date Activity User E-sign Co-sign Detail Recorded Client Recorded Date Recorded By Document 05/22/25 09:38 JF [id number] 05/22/25 09:39 JF Document 05/25/25 09:44 DL [id number] 05/25/25 09:52 DL Document 05/29/25 11:31 JF [id number] 05/29/25 11:34 JF Document 06/01/25 09:52 DL [id number] 06/01/25 10:02 DL Document 06/08/25 09:33 KW [id number] 06/08/25 09:42 KW 05/22/25 05/25/25 05/29/25 09:38 09:44 11:31 - Today's Visit Information Type of service Nurse-only Follow-up Visit Nurse-only Visit (Physician/COFFEE SHOP ATTENDANT Visit ) Arrival Mode Ambulatory Ambulatory Ambulatory Transfer Assistance Manual Patient Identification Verified (Name & No Yes Yes ) Patient Requires Transmission-Based No No Precautions Vital Signs Temperature (97.8 F-99.1 F) 96.7 F L 96.9 F L 97.6 F L Temperature Source Temporal Temporal Temporal Pulse Rate (60-100) 70 65 66 Pulse Location Monitor Monitor Monitor Respiratory Rate (12-18) 16 18 18 Respiratory rate source Observation Observation Observation Oxygen Delivery Method Blood Pressure (90/60-120/80) 118/57 L 133/74 H 118/80 Blood Pressure Mean (mm Hg) 77 93 92 Source Monitor Monitor Monitor Position Sitting Semi-Fowlers Blood Pressure Location Left Arm Left [...] Is Patient Pain Free? Yes Yes Yes 06/01/25 06/08/25 09:52 09:33 WC - Today's Visit Information Type of service Follow-up Visit Follow-up Visit (Physician/COFFEE SHOP ATTENDANT (Physician/COFFEE SHOP ATTENDANT ) ) Arrival Mode Ambulatory Ambulatory Transfer Assistance None Patient Identification Verified (Name & Yes Yes ) Patient Requires Transmission-Based No Precautions Vital Signs Temperature (97.8 F-99.1 F) 96.7 F L 96.3 F L Temperature Source Temporal Temporal Pulse Rate (60-100) 60 66 Pulse Location Monitor Monitor Respiratory Rate (12-18) 18 18 Respiratory rate source Observation Observation Oxygen Delivery Method Room Air Blood Pressure (90/60-120/80) 119/71 141/74 H Blood Pressure Mean (mm Hg) 87 96 Source Monitor Monitor Position Semi-Fowlers Blood Pressure Location Right [...] Has offloadiing in place as prescribed Yes N/A Experienced any changes in pain level or No No management Left Footwear Regular Shoe Right Footwear Regular Shoe Pain Scale: 0-10 Numeric Is Patient Pain Free? Yes Yes WC - Nurse 1 - General Ulcer Measurement Start: 05/22/25 09:37 Freq: Status: Active Protocol: Activity Type Activity Date Activity User E-sign Co-sign Detail Recorded Client Recorded Date Recorded By Document 05/22/25 09:38 JF [id number] 05/22/25 09:39 JF Document 05/25/25 09:44 DL [id number] 05/25/25 09:52 DL Document 05/29/25 11:31 JF [id number] 05/29/25 11:34 JF Document 06/01/25 09:52 DL [id number] 06/01/25 10:02 DL Document 06/08/25 09:33 KW [id number] 06/08/25 09:42 KW 05/22/25 05/25/25 05/29/25 09:38 09:44 11:31 Wound Center Nurse 1 #1 L Med Ankle CLUSTER -Combined with other wound No -Current Size (cm) - Length 6 5.0 -Current Size (cm) - Width 1.8 1.8 -Current Size (cm) - Depth 0.1 0.2 -Total Square Cm 10.8 9.00 -Date of Last Picture (Recall this field) -Photo Taken Yes No -Epithelialization Small 1-33% -Tunneling No -Undermining/Tunneling No -Circular Undermining No -Exudate Amt Medium Small -Exudate Type Serosanguineous Serosanguineous -Wound Margin Thickened Flat & Intact -Granulation Amt Medium (34-66%) Large (67-100%) -Granulation Quality Red [place] -Slough/Fibrin Yes -Necrosis Amt Medium (34-66%) Small (1-33%) -Necrotic Tissue Type Adherent Slough Adherent Slough -Structure Exposed N/A N/A -Texture (Megan-wound Skin Appearance) Scarring Assessed, Localized Edema -Moisture (Megan-wound Skin Appearance) No Abnormality Assessed,Dry/ Scaly -Color (Megan-wound Skin Appearance) No Abnormality Assessed, Hemosiderin Staining -Temperature (Megan-wound Skin No Abnormality No Abnormality Appearance) (Pt Warm) (Pt Warm) -Tenderness on Palpation (Megan-wound No Skin Appearance) -Ulcer Cleansing Soap and Water DAKIN'S -Foul Odor after Cleansing No No -Anesthetic Used 5% Lidocaine Gel Lower Limb Edema Present NA Yes Left Calf (cm) 37.2 Left Ankle (cm) 38.9 06/01/25 06/08/25 09:52 09:33 Wound Center Nurse 1 #1 L Med Ankle CLUSTER -Combined with other wound -Current Size (cm) - Length 4 2 -Current Size (cm) - Width 1.3 5.5 -Current Size (cm) - Depth 0.1 0.2 -Total Square Cm 5.2 11.0 -Date of Last Picture (Recall this 06/08/25 field) -Photo Taken Yes -Epithelialization -Tunneling -Undermining/Tunneling -Circular Undermining -Exudate Amt Medium Large -Exudate Type Serosanguineous Serosanguineous -Wound Margin Distinct, Distinct, Outline Outline Attached Attached -Granulation Amt Large (67-100%) Large (67-100%) -Granulation Quality [place] Red -Slough/Fibrin -Necrosis Amt Small (1-33%) Small (1-33%) -Necrotic Tissue Type Adherent Slough Adherent Slough -Structure Exposed N/A -Texture (Megan-wound Skin Appearance) Scarring Assessed -Moisture (Megan-wound Skin Appearance) Dry/Scaly Assessed, Maceration -Color (Megan-wound Skin Appearance) Hemosiderin Assessed, Staining Erythema -Temperature (Megan-wound Skin No Abnormality No Abnormality Appearance) (Pt Warm) (Pt Warm) -Tenderness on Palpation (Megan-wound No No Skin Appearance) -Ulcer Cleansing Soap and Water Soap and Water -Foul Odor after Cleansing No -Anesthetic Used 5% Lidocaine 5% Lidocaine Gel Gel Lower Limb Edema Present Left Calf (cm) 41.5 Left Ankle (cm) 22.7 WC - Nurse 2 - General Ulcer CM Notes Start: 05/22/25 09:37 Freq: Status: Active Protocol: Activity Type Activity Date Activity User E-sign Co-sign Detail Recorded Client Recorded Date Recorded By Document 05/25/25 10:32 DS [id number] 05/25/25 10:34 DS Document 06/01/25 10:08 [facility] [id number] 06/01/25 10:19 BMF Document 06/08/25 10:08 [facility] [id number] 06/08/25 10:17 BMF 05/25/25 06/01/25 06/08/25 10:32 10:08 10:08 Wound Center Nurse 2 #1 L Med Ankle CLUSTER -Time 10:33 10:08 10:08 -Correct Patient Yes Yes Yes -Correct Side, Site, Position Yes Yes Yes -Correct Procedure Yes Yes Yes -Procedure Performed Yes Yes Yes -Type of Procedure Debridement Debridement Debridement -Clinical Debridement Subcutaneous Subcutaneous Subcutaneous -Tissue Removed Subcutaneous Subcutaneous Subcutaneous -Post Debridement (cm) - Length 4.5 4.9 4.6 -Post Debridement (cm) - Width 2.2 2 1.9 -Post Debridement (cm) - Depth 0.1 0.1 0.1 -Total Square (Post) (cm) 9.90 9.8 8.74 -Area of Debridement (cm) - Length 4.5 4.9 4.6 -Area of Debridement (cm) - Width 2.2 2 1.9 -Total Square (Area) (cm) 9.90 9.8 8.74 -Tunneling No No No -Undermining/Tunneling No No No -Circular Undermining No No No -Wound/Ulcer Outcome Not Healed Not Healed Not Healed -Ulcer Cleansing Rinsed/ Rinsed/ Rinsed/ Irrigated with Irrigated with Irrigated with Saline Saline Saline -Foul Odor after Cleansing No No No -Bioengineered Tissue No Yes Yes -Type of Bioengineered Tissue Epifix Mesh Epifix Mesh -Expiration Date 10/19/29 10/19/29 -Product Lot Number [id number] -Percent Used 100 100 -Lot number of Saline Used [id number] -Bleeding Controlled with Pressure Pressure Pressure -Treatment Response Procedure Procedure Procedure Tolerated Well Tolerated Well Tolerated Well -Debridement - Subq, 1st 20sq cm Yes No No -Apply Skin Sub - 1st 25 sq cm - Legs 1 1 -Epifix Mesh Application 1-4 (per sq 11 11 cm) Pain Scale: 0-10 Numeric Is Patient Pain Free? Yes Yes Yes WC - Nurse 3 - General Ulcer D/C NN Start: 05/22/25 09:37 Freq: Status: Active Protocol: Activity Type Activity Date Activity User E-sign Co-sign Detail Recorded Client Recorded Date Recorded By Document 05/22/25 09:38 JF [id number] 05/22/25 09:39 JF Document 05/25/25 10:58 DL [id number] 05/25/25 11:00 DL Document 05/29/25 11:31 JF [id number] 05/29/25 11:34 JF Document 06/01/25 10:29 MT [id number] 06/01/25 10:37 MT Document 06/08/25 10:25 DL [id number] 06/08/25 10:27 DL 05/22/25 05/25/25 05/29/25 09:38 10:58 11:31 Pain Scale: 0-10 Numeric Is Patient Pain Free? Yes Yes Yes Wound Care Center Nurse 3 #1 L Med Ankle CLUSTER -Ulcer Cleansing Rinsed/ dakins Irrigated with Saline -Foul Odor after Cleansing No -Negative Pressure Wound Therapy -Foam Supply Charges Patient Supplied Dressing -Primary Dressing Applied Aquacel Extra, NonAdherent Contact Layer, Promogran Abran Matter -Other Dressing Unna ABRAN/ADAPTIC AND AQUACEL EXTRA -Primary Dressing Covered/Secured with Dry Gauze & Dry Gauze Roll Gauze -Aquacel Extra 1 -Promogran Abran Matter 1 -Wound Comment(s) use patient's own supply of abran and aqaucel extra LLE -Multi-Layered Wrap Application Unna Boot - Unna Boot - Unna Boot - Left Left Left -Tubular Bandage -Size of Tubigrip Used -Size D ($) -Stockings -Unna- Left (Qty applied) 1 1 1 Treatment Response Procedure Tolerated Well WC - Visit Discharge Discharge Condition Stable Stable Stable Ambulatory Status Ambulatory Ambulatory Ambulatory Transportation Private Auto Private Auto Private Auto Medication Reconcilliation completed & Yes Yes provided to patient/care provider Clinical Summary of Care Provided Yes Yes Notes: 06/01/25 06/08/25 10:29 10:25 Pain Scale: 0-10 Numeric Is Patient Pain Free? Yes Yes Wound Care Center Nurse 3 #1 L Med Ankle CLUSTER -Ulcer Cleansing -Foul Odor after Cleansing No No -Negative Pressure Wound Therapy N/A -Foam Supply Charges -Primary Dressing Applied Aquacel Extra -Other Dressing Aqaucel EX/ Epimesh -Primary Dressing Covered/Secured with Dry Gauze,Dry Dry Gauze & Gauze & Roll Roll Gauze, Gauze,Secured Secured with with Tape Tape -Aquacel Extra 1 -Promogran Abran Matter -Wound Comment(s) LLE -Multi-Layered Wrap Application -Tubular Bandage Double Layer -Size of Tubigrip Used Size D Size D -Size D ($) 2 -Stockings No -Unna- Left (Qty applied) Treatment Response WC - Visit Discharge Discharge Condition Stable Stable Ambulatory Status Ambulatory Ambulatory Transportation Private Auto Private Auto Medication Reconcilliation completed & No provided to patient/care provider Clinical Summary of Care Provided Yes Notes: explained the new wound orders to the patient. the pt seemed very confused about dressing change if it get soiled. i went over the new orders line by line with the pt. i also instructed the pt to call if he had any issues. Assessment/Plan Assessment/Plan (1) Non-pressure chronic ulcer of left calf with fat layer exposed: CODE(S): L97.222 - Non-pressure chronic ulcer of left calf with fat layer exposed (2) Cellulitis of left lower limb: CODE(S): L03.116 - Cellulitis of left lower limb (3) Venous insufficiency (chronic) (peripheral): CODE(S): I87.2 - Venous insufficiency (chronic) (peripheral) (4) Bilateral lower extremity edema: CODE(S): R60.0 - Localized edema (5) Venous stasis ulcer of ankle with fat [...] of left ankle with fat layer exposed PLAN: Plan Patient seen and evaluated Predebridement measurement 4.5 cm x 1.8 cm x 0.1 cm Postdebridement measurement 4.6 cm x 1.9 cm x 0.1 cm Ulceration site did undergo debridement as noted in the clinical panel above. Localized erythema from previous visit has improved on oral antibiotic and Dakin's wash. Following debridement, EpiFix graft #2 ([id number]) was applied to the ulcerative bed. No signs of infection or ulcerative bed at graft placement. Site was thendressed with wound veil and anchored with Steri-Strips. Aquacel extra applied over graft site and dressed with dry sterile dressing. Double Tubigrip stockingapplied for compression. There is decreased in size of ulceration in terms of length and width versus previous visit with edema also improved. Swab culture was obtained of the site 05/18/2025. Results demonstrate strep agalactiae and Serratia marcescens. Due to positive cultures following his Dakin's wash he was prescribed doxycycline 100 mg twice daily x 14 days and ciprofloxacin 500 mg twice daily x 14 days (stop date 06/08/2025). There has been improvement in the appearance of the wound and he will finish antibiotic tocompletion. Stat Doppler for 02/16/2025 was negative for DVT. He did undergo repeat venous study 03/14/25 and underwent venous ablation on April 13. He was [...] was applied for 02/16/2025, awaiting approval. He has been approved for advanced wound care product, EpiFix for application. He is following with Dr. Mckee for procedure to aid in his venous insufficiency. Procedure performed 04/13/25. Recent visit with Dr. Mckee 04/26/2025. Discussed continued diet to aid in healing [...] antibiotics and further evaluation. He is understanding ofthis today. The following work up and care recommendations were made: Dressing: EpiFix, wound veil, Steri-Strips, Aquacel extra, dry sterile dressing,Tubigrip compression. He will change outer dressing as needed. Will continue compression stocking to right lower extremity Wash: Do not get wet left lower extremity Tissue growth optimization: EpiFix Offload: Tubigrip compression Vascular: Does have history of positive venous insufficiency/reflux. Underwent procedure 04/13/2025 as above. Edema: Tubigrip compression and elevation of the lower extremities Infection: No signs of infection Pain: May take [id number] Tylenol Extra Strength for discomfort Host factors: Chronic venous insufficiency, chronic lower extremity edema, prolonged standing/activity, advanced age complicate healing. I answered all the patient's questions. To return to the wound healing center in 1 week or call sooner if the patient has any questions or concerns. 06/08/25 1151 <Electronically signed by Merrill Burns DPM> Cosigner Signature (if applicable): CC: ~ Signed [facility] Work Phone: [phone] [phone] Progress note [facility] [address] [place] [address] Progress Note - Wound Care 06/08/25 1145 MR#: [id number] Acct: [id number] Name: WELLINGTON GONZALEZ Rep #:[id number] : 1945 80 From: Merrill machado DPM PCP: Dr. Randa Joseph, DO Status:REG RCR Location: History of Present Illness Date of Service: 06/08/25 Chief Complaint: Left medial ankle wound History [...] aspect of the left lower extremity. He underwent vascular procedure with Dr. Mckee on 04/13/25. Had recent follow-up with vascular on 04/26/2025. Was placed in unna boot compression in addition to being placed on lasix for one week with improvement noted in edema. Has since continued Lasix with edema now controlled. Edema has improved and drainage also improved. States he does not sit often. Continues to try to elevating his legs higher than what he previously had been when he does sit. Continues oral antibiotic and state site is looking better and feeling better. Still continues standing for long periods of time performing woodworking in his garage. He denies constitutional symptoms. Deniesfurther complaints. Objective Data Objective Data Vital Signs: Vital Signs Temp Pulse Resp BP O2 Del Method 96.3 F L 66 18 141/74 H Room Air 06/08/25 09:33 06/08/25 09:33 06/08/25 09:33 06/08/25 09:33 06/08/25 09:33 Oxygen Delivery Method Room Air Physical Exam Const alert, oriented x3 and no apparent distress General Appearance: cooperative HEENT normocephalic Eyes General Eye: normal appearance of both eyes Neck General: normal visual inspection Lymph Lymphatic: no lymphadenopathy noted and no lymphedema noted Resp normal respiratory effort Cardio regular rate and regular rhythm Extremity no calf tenderness Extremity Narrative: Left lower extremity: Vascular: DP and PT pulses weakly palpable. Capillary fill time to digits is 5 seconds. Normal temperature gradient. There is absent hair growth to digits noted. Dermatological: There is a full-thickness ulceration noted to the medial aspect of the lower extremity/ankle with mixed fibro granular layer. Negative Stemmer sign left foot. There is evidence of stasis dermatitis with hyperpigmentation/hemosiderin deposition/staining of skin left lower extremity. There are varicosities noted of the lower extremity with mild lower extremity edema. There is no erythema or rubor of the left lower extremity. Does have increased edema secondary to his vascular procedure. Musculoskeletal: Muscle strength 5 of 5 age-appropriate. There is decreased range of motion of the ankle joint dorsiflexion with knee extended without pain or crepitus. Decreased range of motion of the STJ, MTJ, and first MTPJ without pain or crepitus. No pain to palpation of calf. Skin no rashes or lesions noted General Skin Exam: venous stasis and dermatitis Neuro moves all extremities Debridement Note Debridement Note Wound debrided: Left medial ankle Laterality: Left Wound Grade/Stage: Cisneros stage I [...] Nurse 1 - General Ulcer Assessment Start: 05/22/25 09:37 Freq: Status: Active Protocol: ANAYA Activity Type Activity Date Activity User E-sign Co-sign Detail Recorded Client Recorded Date Recorded By Document 05/22/25 09:38 JF [id number] 05/22/25 09:39 JF Document 05/25/25 09:44 DL [id number] 05/25/25 09:52 DL Document 05/29/25 11:31 JF [id number] 05/29/25 11:34 JF Document 06/01/25 09:52 DL [id number] 06/01/25 10:02 DL Document 06/08/25 09:33 KW [id number] 06/08/25 09:42 KW 05/22/25 05/25/25 05/29/25 09:38 09:44 11:31 - Today's Visit Information Type of service Nurse-only Follow-up Visit Nurse-only Visit (Physician/COFFEE SHOP ATTENDANT Visit ) Arrival Mode Ambulatory Ambulatory Ambulatory Transfer Assistance Manual Patient Identification Verified (Name & No Yes Yes ) Patient Requires Transmission-Based No No Precautions Vital Signs Temperature (97.8 F-99.1 F) 96.7 F L 96.9 F L 97.6 F L Temperature Source Temporal Temporal Temporal Pulse Rate (60-100) 70 65 66 Pulse Location Monitor Monitor Monitor Respiratory Rate (12-18) 16 18 18 Respiratory rate source Observation Observation Observation Oxygen Delivery Method Blood Pressure (90/60-120/80) 118/57 L 133/74 H 118/80 Blood Pressure Mean (mm Hg) 77 93 92 Source Monitor Monitor Monitor Position Sitting Semi-Fowlers Blood Pressure Location Left Arm Left [...] Is Patient Pain Free? Yes Yes Yes 06/01/25 06/08/25 09:52 09:33 WC - Today's Visit Information Type of service Follow-up Visit Follow-up Visit (Physician/COFFEE SHOP ATTENDANT (Physician/COFFEE SHOP ATTENDANT ) ) Arrival Mode Ambulatory Ambulatory Transfer Assistance None Patient Identification Verified (Name & Yes Yes ) Patient Requires Transmission-Based No Precautions Vital Signs Temperature (97.8 F-99.1 F) 96.7 F L 96.3 F L Temperature Source Temporal Temporal Pulse Rate (60-100) 60 66 Pulse Location Monitor Monitor Respiratory Rate (12-18) 18 18 Respiratory rate source Observation Observation Oxygen Delivery Method Room Air Blood Pressure (90/60-120/80) 119/71 141/74 H Blood Pressure Mean (mm Hg) 87 96 Source Monitor Monitor Position Semi-Fowlers Blood Pressure Location Right [...] Has offloadiing in place as prescribed Yes N/A Experienced any changes in pain level or No No management Left Footwear Regular Shoe Right Footwear Regular Shoe Pain Scale: 0-10 Numeric Is Patient Pain Free? Yes Yes WC - Nurse 1 - General Ulcer Measurement Start: 05/22/25 09:37 Freq: Status: Active Protocol: Activity Type Activity Date Activity User E-sign Co-sign Detail Recorded Client Recorded Date Recorded By Document 05/22/25 09:38 JF [id number] 05/22/25 09:39 JF Document 05/25/25 09:44 DL [id number] 05/25/25 09:52 DL Document 05/29/25 11:31 JF [id number] 05/29/25 11:34 JF Document 06/01/25 09:52 DL [id number] 06/01/25 10:02 DL Document 06/08/25 09:33 KW [id number] 06/08/25 09:42 KW 05/22/25 05/25/25 05/29/25 09:38 09:44 11:31 Wound Center Nurse 1 #1 L Med Ankle CLUSTER -Combined with other wound No -Current Size (cm) - Length 6 5.0 -Current Size (cm) - Width 1.8 1.8 -Current Size (cm) - Depth 0.1 0.2 -Total Square Cm 10.8 9.00 -Date of Last Picture (Recall this field) -Photo Taken Yes No -Epithelialization Small 1-33% -Tunneling No -Undermining/Tunneling No -Circular Undermining No -Exudate Amt Medium Small -Exudate Type Serosanguineous Serosanguineous -Wound Margin Thickened Flat & Intact -Granulation Amt Medium (34-66%) Large (67-100%) -Granulation Quality Red [place] -Slough/Fibrin Yes -Necrosis Amt Medium (34-66%) Small (1-33%) -Necrotic Tissue Type Adherent Slough Adherent Slough -Structure Exposed N/A N/A -Texture (Megan-wound Skin Appearance) Scarring Assessed, Localized Edema -Moisture (Megan-wound Skin Appearance) No Abnormality Assessed,Dry/ Scaly -Color (Megan-wound Skin Appearance) No Abnormality Assessed, Hemosiderin Staining -Temperature (Megan-wound Skin No Abnormality No Abnormality Appearance) (Pt Warm) (Pt Warm) -Tenderness on Palpation (Megan-wound No Skin Appearance) -Ulcer Cleansing Soap and Water DAKIN'S -Foul Odor after Cleansing No No -Anesthetic Used 5% Lidocaine Gel Lower Limb Edema Present NA Yes Left Calf (cm) 37.2 Left Ankle (cm) 38.9 06/01/25 06/08/25 09:52 09:33 Wound Center Nurse 1 #1 L Med Ankle CLUSTER -Combined with other wound -Current Size (cm) - Length 4 2 -Current Size (cm) - Width 1.3 5.5 -Current Size (cm) - Depth 0.1 0.2 -Total Square Cm 5.2 11.0 -Date of Last Picture (Recall this 06/08/25 field) -Photo Taken Yes -Epithelialization -Tunneling -Undermining/Tunneling -Circular Undermining -Exudate Amt Medium Large -Exudate Type Serosanguineous Serosanguineous -Wound Margin Distinct, Distinct, Outline Outline Attached Attached -Granulation Amt Large (67-100%) Large (67-100%) -Granulation Quality [place] Red -Slough/Fibrin -Necrosis Amt Small (1-33%) Small (1-33%) -Necrotic Tissue Type Adherent Slough Adherent Slough -Structure Exposed N/A -Texture (Megan-wound Skin Appearance) Scarring Assessed -Moisture (Megan-wound Skin Appearance) Dry/Scaly Assessed, Maceration -Color (Megan-wound Skin Appearance) Hemosiderin Assessed, Staining Erythema -Temperature (Megan-wound Skin No Abnormality No Abnormality Appearance) (Pt Warm) (Pt Warm) -Tenderness on Palpation (Megan-wound No No Skin Appearance) -Ulcer Cleansing Soap and Water Soap and Water -Foul Odor after Cleansing No -Anesthetic Used 5% Lidocaine 5% Lidocaine Gel Gel Lower Limb Edema Present Left Calf (cm) 41.5 Left Ankle (cm) 22.7 WC - Nurse 2 - General Ulcer CM Notes Start: 05/22/25 09:37 Freq: Status: Active Protocol: Activity Type Activity Date Activity User E-sign Co-sign Detail Recorded Client Recorded Date Recorded By Document 05/25/25 10:32 DS [id number] 05/25/25 10:34 DS Document 06/01/25 10:08 [facility] [id number] 06/01/25 10:19 [facility] Document 06/08/25 10:08 [facility] [id number] 06/08/25 10:17 [facility] 05/25/25 06/01/25 06/08/25 10:32 10:08 10:08 Wound Center Nurse 2 #1 L Med Ankle CLUSTER -Time 10:33 10:08 10:08 -Correct Patient Yes Yes Yes -Correct Side, Site, Position Yes Yes Yes -Correct Procedure Yes Yes Yes -Procedure Performed Yes Yes Yes -Type of Procedure Debridement Debridement Debridement -Clinical Debridement Subcutaneous Subcutaneous Subcutaneous -Tissue Removed Subcutaneous Subcutaneous Subcutaneous -Post Debridement (cm) - Length 4.5 4.9 4.6 -Post Debridement (cm) - Width 2.2 2 1.9 -Post Debridement (cm) - Depth 0.1 0.1 0.1 -Total Square (Post) (cm) 9.90 9.8 8.74 -Area of Debridement (cm) - Length 4.5 4.9 4.6 -Area of Debridement (cm) - Width 2.2 2 1.9 -Total Square (Area) (cm) 9.90 9.8 8.74 -Tunneling No No No -Undermining/Tunneling No No No -Circular Undermining No No No -Wound/Ulcer Outcome Not Healed Not Healed Not Healed -Ulcer Cleansing Rinsed/ Rinsed/ Rinsed/ Irrigated with Irrigated with Irrigated with Saline Saline Saline -Foul Odor after Cleansing No No No -Bioengineered Tissue No Yes Yes -Type of Bioengineered Tissue Epifix Mesh Epifix Mesh -Expiration Date 10/19/29 10/19/29 -Product Lot Number [id number] -Percent Used 100 100 -Lot number of Saline Used [id number] -Bleeding Controlled with Pressure Pressure Pressure -Treatment Response Procedure Procedure Procedure Tolerated Well Tolerated Well Tolerated Well -Debridement - Subq, 1st 20sq cm Yes No No -Apply Skin Sub - 1st 25 sq cm - Legs 1 1 -Epifix Mesh Application 1-4 (per sq 11 11 cm) Pain Scale: 0-10 Numeric Is Patient Pain Free? Yes Yes Yes WC - Nurse 3 - General Ulcer D/C NN Start: 05/22/25 09:37 Freq: Status: Active Protocol: Activity Type Activity Date Activity User E-sign Co-sign Detail Recorded Client Recorded Date Recorded By Document 05/22/25 09:38 JF [id number] 05/22/25 09:39 JF Document 05/25/25 10:58 DL [id number] 05/25/25 11:00 DL Document 05/29/25 11:31 JF [id number] 05/29/25 11:34 JF Document 06/01/25 10:29 MT [id number] 06/01/25 10:37 MT Document 06/08/25 10:25 DL [id number] 06/08/25 10:27 DL 05/22/25 05/25/25 05/29/25 09:38 10:58 11:31 Pain Scale: 0-10 Numeric Is Patient Pain Free? Yes Yes Yes Wound Care Center Nurse 3 #1 L Med Ankle CLUSTER -Ulcer Cleansing Rinsed/ dakins Irrigated with Saline -Foul Odor after Cleansing No -Negative Pressure Wound Therapy -Foam Supply Charges Patient Supplied Dressing -Primary Dressing Applied Aquacel Extra, NonAdherent Contact Layer, Promogran Abran Matter -Other Dressing Unna ABRAN/ADAPTIC AND AQUACEL EXTRA -Primary Dressing Covered/Secured with Dry Gauze & Dry Gauze Roll Gauze -Aquacel Extra 1 -Promogran Abran Matter 1 -Wound Comment(s) use patient's own supply of abran and aqaucel extra LLE -Multi-Layered Wrap Application Unna Boot - Unna Boot - Unna Boot - Left Left Left -Tubular Bandage -Size of Tubigrip Used -Size D ($) -Stockings -Unna- Left (Qty applied) 1 1 1 Treatment Response Procedure Tolerated Well WC - Visit Discharge Discharge Condition Stable Stable Stable Ambulatory Status Ambulatory Ambulatory Ambulatory Transportation Private Auto Private Auto Private Auto Medication Reconcilliation completed & Yes Yes provided to patient/care provider Clinical Summary of Care Provided Yes Yes Notes: 06/01/25 06/08/25 10:29 10:25 Pain Scale: 0-10 Numeric Is Patient Pain Free? Yes Yes Wound Care Center Nurse 3 #1 L Med Ankle CLUSTER -Ulcer Cleansing -Foul Odor after Cleansing No No -Negative Pressure Wound Therapy N/A -Foam Supply Charges -Primary Dressing Applied Aquacel Extra -Other Dressing Aqaucel EX/ Epimesh -Primary Dressing Covered/Secured with Dry Gauze,Dry Dry Gauze & Gauze & Roll Roll Gauze, Gauze,Secured Secured with with Tape Tape -Aquacel Extra 1 -Promogran Abran Matter -Wound Comment(s) LLE -Multi-Layered Wrap Application -Tubular Bandage Double Layer -Size of Tubigrip Used Size D Size D -Size D ($) 2 -Stockings No -Unna- Left (Qty applied) Treatment Response WC - Visit Discharge Discharge Condition Stable Stable Ambulatory Status Ambulatory Ambulatory Transportation Private Auto Private Auto Medication Reconcilliation completed & No provided to patient/care provider Clinical Summary of Care Provided Yes Notes: explained the new wound orders to the patient. the pt seemed very confused about dressing change if it get soiled. i went over the new orders line by line with the pt. i also instructed the pt to call if he had any issues. Assessment/Plan Assessment/Plan (1) Non-pressure chronic ulcer of left calf with fat layer exposed: CODE(S): L97.222 - Non-pressure chronic ulcer of left calf with fat layer exposed (2) Cellulitis of left lower limb: CODE(S): L03.116 - Cellulitis of left lower limb (3) Venous insufficiency (chronic) (peripheral): CODE(S): I87.2 - Venous insufficiency (chronic) (peripheral) (4) Bilateral lower extremity edema: CODE(S): R60.0 - Localized edema (5) Venous stasis ulcer of ankle with fat [...] of left ankle with fat layer exposed PLAN: Plan Patient seen and evaluated Predebridement measurement 4.5 cm x 1.8 cm x 0.1 cm Postdebridement measurement 4.6 cm x 1.9 cm x 0.1 cm Ulceration site did undergo debridement as noted in the clinical panel above. Localized erythema from previous visit has improved on oral antibiotic and Dakin's wash. Following debridement, EpiFix graft #2 ([id number]) was applied to the ulcerative bed. No signs of infection or ulcerative bed at graft placement. Site was thendressed with wound veil and anchored with Steri-Strips. Aquacel extra applied over graft site and dressed with dry sterile dressing. Double Tubigrip stockingapplied for compression. There is decreased in size of ulceration in terms of length and width versus previous visit with edema also improved. Swab culture was obtained of the site 05/18/2025. Results demonstrate strep agalactiae and Serratia marcescens. Due to positive cultures following his Dakin's wash he was prescribed doxycycline 100 mgtwice daily x 14 days and ciprofloxacin 500 mg twice daily x 14 days (stop date 06/08/2025). There has been improvement in the appearance of the wound and he will finish antibiotic tocompletion. Stat Doppler for 02/16/2025 was negative for DVT. He did undergo repeat venous study 03/14/25 and underwent venous ablation on April 13. He was [...] was applied for 02/16/2025, awaiting approval. He has been approved for advanced wound care product, EpiFix for application. He is following with Dr. Mckee for procedure to aid in his venous insufficiency. Procedure performed 04/13/25. Recent visit with Dr. Mckee 04/26/2025. Discussed continued diet to aid in healing [...] antibiotics and further evaluation. He is understanding ofthis today. The following work up and care recommendations were made: Dressing: EpiFix, wound veil, Steri-Strips, Aquacel extra, dry sterile dressing,Tubigrip compression. He will change outer dressing as needed. Will continue compression stocking to right lower extremity Wash: Do not get wet left lower extremity Tissue growth optimization: EpiFix Offload: Tubigrip compression Vascular: Does have history of positive venous insufficiency/reflux. Underwent procedure 04/13/2025 as above. Edema: Tubigrip compression and elevation of the lower extremities Infection: No signs of infection Pain: May take [id number] Tylenol Extra Strength for discomfort Host factors: Chronic venous insufficiency, chronic lower extremity edema, prolonged standing/activity, advanced age complicate healing. I answered all the patient's questions. To return to the wound healing center in 1 week or call sooner if the patient has any questions or concerns. 06/08/25 1151 Cosigner Signature (if applicable): CC: ~ Signed [facility]08-14-2025 Progress note Author Merrill Burns [facility] Note Date/Time June 01, 2025 1: 45pm [facility] [address] [place] [address] Progress Note - Wound Care 06/01/25 1333 MR#: [id number] Acct: [id number] Name: WELLINGTON GONZALEZ Rep #:[id number] : 1945 80 From: Merrill machado DPM PCP: Dr. Randa Joseph, DO Status:REG RCR Location: History of Present Illness Date of Service: 06/01/25 Chief Complaint: Left medial ankle wound History [...] aspect of the left lower extremity. He underwent vascular procedure with Dr. Mckee on 04/13/25. Had recent follow-up with vascular on 04/26/2025. Was placed in unna boot compression in addition to being placed on lasix for one week with improvement noted in edema. Edema secondary to his previous procedure has improved but drainage still remains due to patient long duration on his feet. States he does not sit often. Continues to try to elevating his legs higher thanwhat he previously had been when he does sit. Reports improvement in redness and tenderness around the wound site with taking oral antibiotic. Still continues standing for long periods of time performing woodworking in his garage. He denies constitutional symptoms. Denies further complaints. Objective Data Objective Data Vital Signs: Vital Signs Temp Pulse Resp BP 96.7 F L 60 18 119/71 06/01/25 09:52 06/01/25 09:52 06/01/25 09:52 06/01/25 09:52 Physical Exam Const alert, oriented x3 and no apparent distress General Appearance: cooperative HEENT normocephalic Eyes General Eye: normal appearance of both eyes Neck General: normal visual inspection Lymph Lymphatic: no lymphadenopathy noted and no lymphedema noted Resp normal respiratory effort Cardio regular rate and regular rhythm Extremity no calf tenderness Extremity Narrative: Left lower extremity: Vascular: DP and PT pulses weakly palpable. Capillary fill time to digits is 5 seconds. Normal temperature gradient. There is absent hair growth to digits noted. Dermatological: There is a full-thickness ulceration noted to the medial aspect of the lower extremity/ankle with mixed fibro granular layer. Negative Stemmer sign left foot. There is evidence of stasis dermatitis with hyperpigmentation/hemosiderin deposition/staining of skin left lower extremity. There are varicosities noted of the lower extremity with mild lower extremity edema. There is no erythema or rubor of the left lower extremity. Does have increased edema secondary to his vascular procedure. Musculoskeletal: Muscle strength 5 of 5 age-appropriate. There is decreased range of motion of the ankle joint dorsiflexion with knee extended without pain or crepitus. Decreased range of motion of the STJ, MTJ, and first MTPJ without pain or crepitus. No pain to palpation of calf. Skin no rashes or lesions noted General [...] Nurse 1 - General Ulcer Assessment Start: 05/22/25 09:37 Freq: Status: Active Protocol: ANAYA Activity Type Activity Date Activity User E-sign Co-sign Detail Recorded Client Recorded Date Recorded By Document 05/22/25 09:38 JF [id number] 05/22/25 09:39 JF Document 05/25/25 09:44 DL [id number] 05/25/25 09:52 DL Document 05/29/25 11:31 JF [id number] 05/29/25 11:34 JF Document 06/01/25 09:52 DL [id number] 06/01/25 10:02 DL 05/22/25 05/25/25 05/29/25 09:38 09:44 11:31 - Today's Visit Information Type of service Nurse-only Follow-up Visit Nurse-only Visit (Physician/COFFEE SHOP ATTENDANT Visit ) Arrival Mode Ambulatory Ambulatory Ambulatory Transfer Assistance Manual Patient Identification Verified (Name & No Yes Yes ) Patient Requires Transmission-Based No No Precautions Vital Signs Temperature (97.8 F-99.1 F) 96.7 F L 96.9 F L 97.6 F L Temperature Source Temporal Temporal Temporal Pulse Rate (60-100) 70 65 66 Pulse Location Monitor Monitor Monitor Respiratory Rate (12-18) 16 18 18 Respiratory rate source Observation Observation Observation Blood Pressure (90/60-120/80) 118/57 L 133/74 H 118/80 Blood Pressure Mean (mm Hg) 77 93 92 Source Monitor Monitor Monitor Position Sitting Semi-Fowlers Blood Pressure Location Left Arm Left [...] Is Patient Pain Free? Yes Yes Yes 06/01/25 09:52 WC - Today's Visit Information Type of service Follow-up Visit (Physician/COFFEE SHOP ATTENDANT ) Arrival Mode Ambulatory Transfer Assistance None Patient Identification Verified (Name & Yes ) Patient Requires Transmission-Based No Precautions Vital Signs Temperature (97.8 F-99.1 F) 96.7 F L Temperature Source Temporal Pulse Rate (60-100) 60 Pulse Location Monitor Respiratory Rate (12-18) 18 Respiratory rate source Observation Blood Pressure (90/60-120/80) 119/71 Blood Pressure Mean (mm Hg) 87 Source Monitor Position Blood Pressure Location History [...] Nurse 1 - General Ulcer Measurement Start: 05/22/25 09:37 Freq: Status: Active Protocol: Activity Type Activity Date Activity User E-sign Co-sign Detail Recorded Client Recorded Date Recorded By Document 05/22/25 09:38 JF [id number] 05/22/25 09:39 JF Document 05/25/25 09:44 DL [id number] 05/25/25 09:52 DL Document 05/29/25 11:31 JF [id number] 05/29/25 11:34 JF Document 06/01/25 09:52 DL [id number] 06/01/25 10:02 DL 05/22/25 05/25/25 05/29/25 09:38 09:44 11:31 Wound Center Nurse 1 #1 L Med Ankle CLUSTER -Combined with other wound No -Current Size (cm) - Length 6 5.0 -Current Size (cm) - Width 1.8 1.8 -Current Size (cm) - Depth 0.1 0.2 -Total Square Cm 10.8 9.00 -Photo Taken Yes No -Epithelialization Small 1-33% -Tunneling No -Undermining/Tunneling No -Circular Undermining No -Exudate Amt Medium Small -Exudate Type Serosanguineous Serosanguineous -Wound Margin Thickened Flat & Intact -Granulation Amt Medium (34-66%) Large (67-100%) -Granulation Quality Red [place] -Slough/Fibrin Yes -Necrosis Amt Medium (34-66%) Small (1-33%) -Necrotic Tissue Type Adherent Slough Adherent Slough -Structure Exposed N/A N/A -Texture (Megan-wound Skin Appearance) Scarring Assessed, Localized Edema -Moisture (Megan-wound Skin Appearance) No Abnormality Assessed,Dry/ Scaly -Color (Megan-wound Skin Appearance) No Abnormality Assessed, Hemosiderin Staining -Temperature (Megan-wound Skin No Abnormality No Abnormality Appearance) (Pt Warm) (Pt Warm) -Tenderness on Palpation (Megan-wound No Skin Appearance) -Ulcer Cleansing Soap and Water DAKIN'S -Foul Odor after Cleansing No No -Anesthetic Used 5% Lidocaine Gel Lower Limb Edema Present NA Yes Left Calf (cm) 37.2 Left Ankle (cm) 38.9 06/01/25 09:52 Wound Center Nurse 1 #1 L Med Ankle CLUSTER -Combined with other wound -Current Size (cm) - Length 4 -Current Size (cm) - Width 1.3 -Current Size (cm) - Depth 0.1 -Total Square Cm 5.2 -Photo Taken Yes -Epithelialization -Tunneling -Undermining/Tunneling -Circular Undermining -Exudate Amt Medium -Exudate Type Serosanguineous -Wound Margin Distinct, Outline Attached -Granulation Amt Large (67-100%) -Granulation Quality [place] -Slough/Fibrin -Necrosis Amt Small (1-33%) -Necrotic Tissue Type Adherent Slough -Structure Exposed N/A -Texture (Megan-wound Skin Appearance) Scarring -Moisture (Megan-wound Skin Appearance) Dry/Scaly -Color (Megan-wound Skin Appearance) Hemosiderin Staining -Temperature (Megan-wound Skin No Abnormality Appearance) (Pt Warm) -Tenderness on Palpation (Megan-wound No Skin Appearance) -Ulcer Cleansing Soap and Water -Foul Odor after Cleansing No -Anesthetic Used 5% Lidocaine Gel Lower Limb Edema Present Left Calf (cm) Left Ankle (cm) WC - Nurse 2 - General Ulcer CM Notes Start: 05/22/25 09:37 Freq: Status: Active Protocol: Activity Type Activity Date Activity User E-sign Co-sign Detail Recorded Client Recorded Date Recorded By Document 05/25/25 10:32 DS [id number] 05/25/25 10:34 DS Document 06/01/25 10:08 [facility] [id number] 06/01/25 10:19 [facility] 05/25/25 06/01/25 10:32 10:08 Wound Center Nurse 2 #1 L Med Ankle CLUSTER -Time 10:33 10:08 -Correct Patient Yes Yes -Correct Side, Site, Position Yes Yes -Correct Procedure Yes Yes -Procedure Performed Yes Yes -Type of Procedure Debridement Debridement -Clinical Debridement Subcutaneous Subcutaneous -Tissue Removed Subcutaneous Subcutaneous -Post Debridement (cm) - Length 4.5 4.9 -Post Debridement (cm) - Width 2.2 2 -Post Debridement (cm) - Depth 0.1 0.1 -Total Square (Post) (cm) 9.90 9.8 -Area of Debridement (cm) - Length 4.5 4.9 -Area of Debridement (cm) - Width 2.2 2 -Total Square (Area) (cm) 9.90 9.8 -Tunneling No No -Undermining/Tunneling No No -Circular Undermining No No -Wound/Ulcer Outcome Not Healed Not Healed -Ulcer Cleansing Rinsed/ Rinsed/ Irrigated with Irrigated with Saline Saline -Foul Odor after Cleansing No No -Bioengineered Tissue No Yes -Type of Bioengineered Tissue Epifix Mesh -Expiration Date 10/19/29 -Product Lot Number [id number] -Percent Used 100 -Lot number of Saline Used [id number] -Bleeding Controlled with Pressure Pressure -Treatment Response Procedure Procedure Tolerated Well Tolerated Well -Debridement - Subq, 1st 20sq cm Yes No -Apply Skin Sub - 1st 25 sq cm - Legs 1 -Epifix Mesh Application 1-4 (per sq 11 cm) Pain Scale: 0-10 Numeric Is Patient Pain Free? Yes Yes WC - Nurse 3 - General Ulcer D/C NN Start: 05/22/25 09:37 Freq: Status: Active Protocol: Activity Type Activity Date Activity User E-sign Co-sign Detail Recorded Client Recorded Date Recorded By Document 05/22/25 09:38 [id number] 05/22/25 09:39 Document 05/25/25 10:58 DL [id number] 05/25/25 11:00 DL Document 05/29/25 11:31 [id number] 05/29/25 11:34 Document 06/01/25 10:29 MT [id number] 06/01/25 10:37 MT 05/22/25 05/25/25 05/29/25 09:38 10:58 11:31 Pain Scale: 0-10 Numeric Is Patient Pain Free? Yes Yes Yes Wound Care Center Nurse 3 #1 L Med Ankle CLUSTER -Ulcer Cleansing Rinsed/ dakins Irrigated with Saline -Foul Odor after Cleansing No -Negative Pressure Wound Therapy -Foam Supply Charges Patient Supplied Dressing -Primary Dressing Applied Aquacel Extra, NonAdherent Contact Layer, Promogran Abran Matter -Other Dressing Unna ABRAN/ADAPTIC AND AQUACEL EXTRA -Primary Dressing Covered/Secured with Dry Gauze & Dry Gauze Roll Gauze -Aquacel Extra 1 -Promogran Abran Matter 1 -Wound Comment(s) use patient's own supply of abran and aqaucel extra LLE -Multi-Layered Wrap Application Unna Boot - Unna Boot - Unna Boot - Left Left Left -Size of Tubigrip Used -Stockings -Unna- Left (Qty applied) 1 1 1 Treatment Response Procedure Tolerated Well WC - Visit Discharge Discharge Condition Stable Stable Stable Ambulatory Status Ambulatory Ambulatory Ambulatory Transportation Private Auto Private Auto Private Auto Medication Reconcilliation completed & Yes Yes provided to patient/care provider Clinical Summary of Care Provided Yes Yes Notes: 06/01/25 10:29 Pain Scale: 0-10 Numeric Is Patient Pain Free? Yes Wound Care Center Nurse 3 #1 L Med Ankle CLUSTER -Ulcer Cleansing -Foul Odor after Cleansing No -Negative Pressure Wound Therapy N/A -Foam Supply Charges -Primary Dressing Applied Aquacel Extra -Other Dressing -Primary Dressing Covered/Secured with Dry Gauze,Dry Gauze & Roll Gauze,Secured with Tape -Aquacel Extra 1 -Promogran Abran Matter -Wound Comment(s) LLE -Multi-Layered Wrap Application -Size of Tubigrip Used Size D -Stockings No -Unna- Left (Qty applied) Treatment Response WC - Visit Discharge Discharge Condition Stable Ambulatory Status Ambulatory Transportation Private Auto Medication Reconcilliation completed & No provided to patient/care provider Clinical Summary of Care Provided Yes Notes: explained the new wound orders to the patient. the pt seemed very confused about dressing change if it get soiled. i went over the new orders line by line with the pt. i also instructed the pt to call if he had any issues. Assessment/Plan Assessment/Plan (1) Non-pressure chronic ulcer of left calf with fat layer exposed: CODE(S): L97.222 - Non-pressure chronic ulcer of left calf with fat layer exposed (2) Cellulitis of left lower limb: CODE(S): L03.116 - Cellulitis of left lower limb (3) Venous insufficiency (chronic) (peripheral): CODE(S): I87.2 - Venous insufficiency (chronic) (peripheral) (4) Bilateral lower extremity edema: CODE(S): R60.0 - Localized edema (5) Venous stasis ulcer of ankle with fat [...] of left ankle with fat layer exposed PLAN: Plan Patient seen and evaluated Predebridement measurement 4.8 cm x 1.9 cm x 0.1 cm Postdebridement measurement 4.9 cm x 2.0 cm x 0.1 cm Ulceration site did undergo debridement as noted in the clinical panel above. Localized erythema from previous visit has improved on oral antibiotic and Dakin's wash. Following debridement, EpiFix graft #1 ([id number]) was applied to the ulcerative bed. No signs of infection or ulcerative bed at graft placement. Site was thendressed with wound veil and anchored with Steri-Strips. Aquacel extra applied over graft site and dressed with dry sterile dressing. Double Tubigrip stockingapplied for compression. There is increase in size of ulceration in terms of length but improvement in width versus previous visit despite improvement in edema due to continued prolonged standing continued serous drainage post procedure. Swab culture was obtained of the site 05/18/2025. Results demonstrate strep agalactiae and Serratia marcescens. Due to positive cultures following his Dakin's wash he was prescribed doxycycline 100 mg twice daily x 14 days and ciprofloxacin 500 mg twice daily x 14 days (stop date 06/08/2025). There has been improvement in the appearance of the wound and he will finish antibiotic tocompletion. Stat Doppler for 02/16/2025 was negative for DVT. He did undergo repeat venous study 03/14/25 and underwent venous ablation on April 13. He was [...] was applied for 02/16/2025, awaiting approval. He has been approved for advanced wound care product, EpiFix for application. He is following with Dr. Mckee for procedure to aid in his venous insufficiency. Procedure performed 04/13/25. Recent visit with Dr. Mckee 04/26/2025. Discussed continued diet to aid in healing [...] and care recommendations were made: Dressing: EpiFix, wound veil, Steri-Strips, Aquacel extra, dry sterile dressing,Tubigrip compression. He will change outer dressing as needed. Will continue compression stocking to right lower extremity Wash: Do not get wet left lower extremity Tissue growth optimization: EpiFix Offload: Tubigrip compression Vascular: Does have history of positive venous insufficiency/reflux. Underwent procedure 04/13/2025 as above. Edema: Tubigrip compression and elevation of the lower extremities Infection: No signs of infection Pain: May take [id number] Tylenol Extra Strength for discomfort Host factors: Chronic venous insufficiency, chronic lower extremity edema, prolonged standing/activity, advanced age complicate healing. I answered all the patient's questions. To return to the wound healing center in 1 week or call sooner if the patient has any questions or concerns. 06/01/25 1345 <Electronically signed by Merrill Burns DPM> Cosigner Signature (if applicable): CC: ~ Signed [facility] Work Phone: [phone]) 785-951808-14-2025 Progress note [facility] [address] [place] [address] Progress Note - Wound Care 06/01/25 1333 MR#: [id number] Acct: [id number] Name: WELLINGTON GONZALEZ Rep #:[id number] : 1945 80 From: Merrill machado DPM PCP: Dr. Randa Joseph, DO Status:REG RCR Location: History of Present Illness Date of Service: 06/01/25 Chief Complaint: Left medial ankle wound History [...] aspect of the left lower extremity. He underwent vascular procedure with Dr. Mckee on 04/13/25. Had recent follow-up with vascular on 04/26/2025. Was placed in unna boot compression in addition to being placed on lasix for one week with improvement noted in edema. Edema secondary to his previous procedure has improved but drainage still remains due to patient long duration on his feet. States he does not sit often. Continues to try to elevating his legs higher thanwhat he previously had been when he does sit. Reports improvement in redness and tenderness around the wound site with taking oral antibiotic. Still continues standing for long periods of time performing woodworking in his garage. He denies constitutional symptoms. Denies further complaints. Objective Data Objective Data Vital Signs: Vital Signs Temp Pulse Resp BP 96.7 F L 60 18 119/71 06/01/25 09:52 06/01/25 09:52 06/01/25 09:52 06/01/25 09:52 Physical Exam Const alert, oriented x3 and no apparent distress General Appearance: cooperative HEENT normocephalic Eyes General Eye: normal appearance of both eyes Neck General: normal visual inspection Lymph Lymphatic: no lymphadenopathy noted and no lymphedema noted Resp normal respiratory effort Cardio regular rate and regular rhythm Extremity no calf tenderness Extremity Narrative: Left lower extremity: Vascular: DP and PT pulses weakly palpable. Capillary fill time to digits is 5 seconds. Normal temperature gradient. There is absent hair growth to digits noted. Dermatological: There is a full-thickness ulceration noted to the medial aspect of the lower extremity/ankle with mixed fibro granular layer. Negative Stemmer sign left foot. There is evidence of stasis dermatitis with hyperpigmentation/hemosiderin deposition/staining of skin left lower extremity. There are varicosities noted of the lower extremity with mild lower extremity edema. There is no erythema or rubor of the left lower extremity. Does have increased edema secondary to his vascular procedure. Musculoskeletal: Muscle strength 5 of 5 age-appropriate. There is decreased range of motion of the ankle joint dorsiflexion with knee extended without pain or crepitus. Decreased range of motion of the STJ, MTJ, and first MTPJ without pain or crepitus. No pain to palpation of calf. Skin no rashes or lesions noted General [...] Nurse 1 - General Ulcer Assessment Start: 05/22/25 09:37 Freq: Status: Active Protocol: ANAYA Activity Type Activity Date Activity User E-sign Co-sign Detail Recorded Client Recorded Date Recorded By Document 05/22/25 09:38 [email or web address] [id number] 05/22/25 09:39 JF Document 05/25/25 09:44 DL [id number] 05/25/25 09:52 DL Document 05/29/25 11:31 JF [id number] 05/29/25 11:34 JF Document 06/01/25 09:52 DL [id number] 06/01/25 10:02 DL 05/22/25 05/25/25 05/29/25 09:38 09:44 11:31 - Today's Visit Information Type of service Nurse-only Follow-up Visit Nurse-only Visit (Physician/COFFEE SHOP ATTENDANT Visit ) Arrival Mode Ambulatory Ambulatory Ambulatory Transfer Assistance Manual Patient Identification Verified (Name & No Yes Yes ) Patient Requires Transmission-Based No No Precautions Vital Signs Temperature (97.8 F-99.1 F) 96.7 F L 96.9 F L 97.6 F L Temperature Source Temporal Temporal Temporal Pulse Rate (60-100) 70 65 66 Pulse Location Monitor Monitor Monitor Respiratory Rate (12-18) 16 18 18 Respiratory rate source Observation Observation Observation Blood Pressure (90/60-120/80) 118/57 L 133/74 H 118/80 Blood Pressure Mean (mm Hg) 77 93 92 Source Monitor Monitor Monitor Position Sitting Semi-Fowlers Blood Pressure Location Left Arm Left [...] Is Patient Pain Free? Yes Yes Yes 06/01/25 09:52 - Today's Visit Information Type of service Follow-up Visit (Physician/COFFEE SHOP ATTENDANT ) Arrival Mode Ambulatory Transfer Assistance None Patient Identification Verified (Name & Yes ) Patient Requires Transmission-Based No Precautions Vital Signs Temperature (97.8 F-99.1 F) 96.7 F L Temperature Source Temporal Pulse Rate (60-100) 60 Pulse Location Monitor Respiratory Rate (12-18) 18 Respiratory rate source Observation Blood Pressure (90/60-120/80) 119/71 Blood Pressure Mean (mm Hg) 87 Source Monitor Position Blood Pressure Location History [...] Nurse 1 - General Ulcer Measurement Start: 05/22/25 09:37 Freq: Status: Active Protocol: Activity Type Activity Date Activity User E-sign Co-sign Detail Recorded Client Recorded Date Recorded By Document 05/22/25 09:38 JF [id number] 05/22/25 09:39 JF Document 05/25/25 09:44 DL [id number] 05/25/25 09:52 DL Document 05/29/25 11:31 JF [id number] 05/29/25 11:34 JF Document 06/01/25 09:52 DL [id number] 06/01/25 10:02 DL 05/22/25 05/25/25 05/29/25 09:38 09:44 11:31 Wound Center Nurse 1 #1 L Med Ankle CLUSTER -Combined with other wound No -Current Size (cm) - Length 6 5.0 -Current Size (cm) - Width 1.8 1.8 -Current Size (cm) - Depth 0.1 0.2 -Total Square Cm 10.8 9.00 -Photo Taken Yes No -Epithelialization Small 1-33% -Tunneling No -Undermining/Tunneling No -Circular Undermining No -Exudate Amt Medium Small -Exudate Type Serosanguineous Serosanguineous -Wound Margin Thickened Flat & Intact -Granulation Amt Medium (34-66%) Large (67-100%) -Granulation Quality Red [place] -Slough/Fibrin Yes -Necrosis Amt Medium (34-66%) Small (1-33%) -Necrotic Tissue Type Adherent Slough Adherent Slough -Structure Exposed N/A N/A -Texture (Megan-wound Skin Appearance) Scarring Assessed, Localized Edema -Moisture (Megan-wound Skin Appearance) No Abnormality Assessed,Dry/ Scaly -Color (Megan-wound Skin Appearance) No Abnormality Assessed, Hemosiderin Staining -Temperature (Megan-wound Skin No Abnormality No Abnormality Appearance) (Pt Warm) (Pt Warm) -Tenderness on Palpation (Megan-wound No Skin Appearance) -Ulcer Cleansing Soap and Water DAKIN'S -Foul Odor after Cleansing No No -Anesthetic Used 5% Lidocaine Gel Lower Limb Edema Present NA Yes Left Calf (cm) 37.2 Left Ankle (cm) 38.9 06/01/25 09:52 Wound Center Nurse 1 #1 L Med Ankle CLUSTER -Combined with other wound -Current Size (cm) - Length 4 -Current Size (cm) - Width 1.3 -Current Size (cm) - Depth 0.1 -Total Square Cm 5.2 -Photo Taken Yes -Epithelialization -Tunneling -Undermining/Tunneling -Circular Undermining -Exudate Amt Medium -Exudate Type Serosanguineous -Wound Margin Distinct, Outline Attached -Granulation Amt Large (67-100%) -Granulation Quality [place] -Slough/Fibrin -Necrosis Amt Small (1-33%) -Necrotic Tissue Type Adherent Slough -Structure Exposed N/A -Texture (Megan-wound Skin Appearance) Scarring -Moisture (Megan-wound Skin Appearance) Dry/Scaly -Color (Megan-wound Skin Appearance) Hemosiderin Staining -Temperature (Megan-wound Skin No Abnormality Appearance) (Pt Warm) -Tenderness on Palpation (Megan-wound No Skin Appearance) -Ulcer Cleansing Soap and Water -Foul Odor after Cleansing No -Anesthetic Used 5% Lidocaine Gel Lower Limb Edema Present Left Calf (cm) Left Ankle (cm) WC - Nurse 2 - General Ulcer CM Notes Start: 05/22/25 09:37 Freq: Status: Active Protocol: Activity Type Activity Date Activity User E-sign Co-sign Detail Recorded Client Recorded Date Recorded By Document 05/25/25 10:32 DS [id number] 05/25/25 10:34 DS Document 06/01/25 10:08 [facility] [id number] 06/01/25 10:19 BMF 05/25/25 06/01/25 10:32 10:08 Wound Center Nurse 2 #1 L Med Ankle CLUSTER -Time 10:33 10:08 -Correct Patient Yes Yes -Correct Side, Site, Position Yes Yes -Correct Procedure Yes Yes -Procedure Performed Yes Yes -Type of Procedure Debridement Debridement -Clinical Debridement Subcutaneous Subcutaneous -Tissue Removed Subcutaneous Subcutaneous -Post Debridement (cm) - Length 4.5 4.9 -Post Debridement (cm) - Width 2.2 2 -Post Debridement (cm) - Depth 0.1 0.1 -Total Square (Post) (cm) 9.90 9.8 -Area of Debridement (cm) - Length 4.5 4.9 -Area of Debridement (cm) - Width 2.2 2 -Total Square (Area) (cm) 9.90 9.8 -Tunneling No No -Undermining/Tunneling No No -Circular Undermining No No -Wound/Ulcer Outcome Not Healed Not Healed -Ulcer Cleansing Rinsed/ Rinsed/ Irrigated with Irrigated with Saline Saline -Foul Odor after Cleansing No No -Bioengineered Tissue No Yes -Type of Bioengineered Tissue Epifix Mesh -Expiration Date 10/19/29 -Product Lot Number [id number] -Percent Used 100 -Lot number of Saline Used [id number] -Bleeding Controlled with Pressure Pressure -Treatment Response Procedure Procedure Tolerated Well Tolerated Well -Debridement - Subq, 1st 20sq cm Yes No -Apply Skin Sub - 1st 25 sq cm - Legs 1 -Epifix Mesh Application 1-4 (per sq 11 cm) Pain Scale: 0-10 Numeric Is Patient Pain Free? Yes Yes - Nurse 3 - General Ulcer D/C NN Start: 05/22/25 09:37 Freq: Status: Active Protocol: Activity Type Activity Date Activity User E-sign Co-sign Detail Recorded Client Recorded Date Recorded By Document 05/22/25 09:38 [id number] 05/22/25 09:39 Document 05/25/25 10:58 DL [id number] 05/25/25 11:00 DL Document 05/29/25 11:31 JF [id number] 05/29/25 11:34 JF Document 06/01/25 10:29 MT [id number] 06/01/25 10:37 MT 05/22/25 05/25/25 05/29/25 09:38 10:58 11:31 Pain Scale: 0-10 Numeric Is Patient Pain Free? Yes Yes Yes Wound Care Center Nurse 3 #1 L Med Ankle CLUSTER -Ulcer Cleansing Rinsed/ dakins Irrigated with Saline -Foul Odor after Cleansing No -Negative Pressure Wound Therapy -Foam Supply Charges Patient Supplied Dressing -Primary Dressing Applied Aquacel Extra, NonAdherent Contact Layer, Promogran Abran Matter -Other Dressing Unna ABRAN/ADAPTIC AND AQUACEL EXTRA -Primary Dressing Covered/Secured with Dry Gauze & Dry Gauze Roll Gauze -Aquacel Extra 1 -Promogran Abran Matter 1 -Wound Comment(s) use patient's own supply of abran and aqaucel extra LLE -Multi-Layered Wrap Application Unna Boot - Unna Boot - Unna Boot - Left Left Left -Size of Tubigrip Used -Stockings -Unna- Left (Qty applied) 1 1 1 Treatment Response Procedure Tolerated Well WC - Visit Discharge Discharge Condition Stable Stable Stable Ambulatory Status Ambulatory Ambulatory Ambulatory Transportation Private Auto Private Auto Private Auto Medication Reconcilliation completed & Yes Yes provided to patient/care provider Clinical Summary of Care Provided Yes Yes Notes: 06/01/25 10:29 Pain Scale: 0-10 Numeric Is Patient Pain Free? Yes Wound Care Center Nurse 3 #1 L Med Ankle CLUSTER -Ulcer Cleansing -Foul Odor after Cleansing No -Negative Pressure Wound Therapy N/A -Foam Supply Charges -Primary Dressing Applied Aquacel Extra -Other Dressing -Primary Dressing Covered/Secured with Dry Gauze,Dry Gauze & Roll Gauze,Secured with Tape -Aquacel Extra 1 -Promogran Abran Matter -Wound Comment(s) LLE -Multi-Layered Wrap Application -Size of Tubigrip Used Size D -Stockings No -Unna- Left (Qty applied) Treatment Response WC - Visit Discharge Discharge Condition Stable Ambulatory Status Ambulatory Transportation Private Auto Medication Reconcilliation completed & No provided to patient/care provider Clinical Summary of Care Provided Yes Notes: explained the new wound orders to the patient. the pt seemed very confused about dressing change if it get soiled. i went over the new orders line by line with the pt. i also instructed the pt to call if he had any issues. Assessment/Plan Assessment/Plan (1) Non-pressure chronic ulcer of left calf with fat layer exposed: CODE(S): L97.222 - Non-pressure chronic ulcer of left calf with fat layer exposed (2) Cellulitis of left lower limb: CODE(S): L03.116 - Cellulitis of left lower limb (3) Venous insufficiency (chronic) (peripheral): CODE(S): I87.2 - Venous insufficiency (chronic) (peripheral) (4) Bilateral lower extremity edema: CODE(S): R60.0 - Localized edema (5) Venous stasis ulcer of ankle with fat [...] of left ankle with fat layer exposed PLAN: Plan Patient seen and evaluated Predebridement measurement 4.8 cm x 1.9 cm x 0.1 cm Postdebridement measurement 4.9 cm x 2.0 cm x 0.1 cm Ulceration site did undergo debridement as noted in the clinical panel above. Localized erythema from previous visit has improved on oral antibiotic and Dakin's wash. Following debridement, EpiFix graft #1 ([id number]) was applied to the ulcerative bed. No signs of infection or ulcerative bed at graft placement. Site was thendressed with wound veil and anchored with Steri-Strips. Aquacel extra applied over graft site and dressed with dry sterile dressing. Double Tubigrip stockingapplied for compression. There is increase in size of ulceration in terms of length but improvement in width versus previousvisit despite improvement in edema due to continued prolonged standing continued serous drainage post procedure. Swab culture was obtained of the site 05/18/2025. Results demonstrate strep agalactiae and Serratia marcescens. Due to positive cultures following his Dakin's wash he was prescribed doxycycline 100 mgtwice daily x 14 days and ciprofloxacin 500 mg twice daily x 14 days (stop date 06/08/2025). There has been improvement in the appearance of the wound and he will finish antibiotic tocompletion. Stat Doppler for 02/16/2025 was negative for DVT. He did undergo repeat venous study 03/14/25 and underwent venous ablation on April 13. He was [...] was applied for 02/16/2025, awaiting approval. He has been approved for advanced wound care product, EpiFix for application. He is following with Dr. Mckee for procedure to aid in his venous insufficiency. Procedure performed 04/13/25. Recent visit with Dr. Mckee 04/26/2025. Discussed continued diet to aid in healing [...] and care recommendations were made: Dressing: EpiFix, wound veil, Steri-Strips, Aquacel extra, dry sterile dressing,Tubigrip compression. He will change outer dressing as needed. Will continue compression stocking to right lower extremity Wash: Do not get wet left lower extremity Tissue growth optimization: EpiFix Offload: Tubigrip compression Vascular: Does have history of positive venous insufficiency/reflux. Underwent procedure 04/13/2025 as above. Edema: Tubigrip compression and elevation of the lower extremities Infection: No signs of infection Pain: May take [id number] Tylenol Extra Strength for discomfort Host factors: Chronic venous insufficiency, chronic lower extremity edema, prolonged standing/activity, advanced age complicate healing. I answered all the patient's questions. To return to the wound healing center in 1 week or call sooner if the patient has any questions or concerns. 06/01/25 1345 Cosigner Signature (if applicable): CC: ~ Signed [facility]08-07-2025 Progress note Author Merrill Burns [facility] Note Date/Time May 25, 2025 12: 42pm [facility] [address] [place] [address] Progress Note - Wound Care 05/25/25 1230 MR#: [id number] Acct: [id number] Name: WELLINGTON GONZALEZ Rep #:[id number] : 1945 80 From: Merrill machado DPM PCP: Dr. Randa Joseph, DO Status:REG RCR Location: History of Present Illness Date of Service: 05/25/25 Chief Complaint: Left medial ankle wound History [...] aspect of the left lower extremity. He underwent vascular procedure with Dr. Mckee on 04/13/25. Had recent follow-up with vascular on 04/26/2025. Was placed in unna boot compression in addition to being placed on lasix for one week with improvement noted in edema. Edema secondary to his previous procedure has improved but drainage still remains due to patient long duration on his feet. States he does not sit often. Continues to try to elevating his legs higher thanwhat he previously had been when he does sit. Does have some redness and tenderness around the wound site. Still continues standing for long periods of time performing woodworking in his garage. He denies constitutional symptoms. Denies further complaints. Objective Data Objective Data Vital Signs: Vital Signs Temp Pulse Resp BP 96.9 F L 65 18 133/74 H 05/25/25 09:44 05/25/25 09:44 05/25/25 09:44 05/25/25 09:44 Physical Exam Const alert, oriented x3 and no apparent distress General Appearance: cooperative HEENT normocephalic Eyes General Eye: normal appearance of both eyes Neck General: normal visual inspection Lymph Lymphatic: no lymphadenopathy noted and no lymphedema noted Resp normal respiratory effort Cardio regular rate and regular rhythm Extremity no calf tenderness Extremity Narrative: Left lower extremity: Vascular: DP and PT pulses weakly palpable. Capillary fill time to digits is 5 seconds. Normal temperature gradient. There is absent hair growth to digits noted. Dermatological: There is a full-thickness ulceration noted to the medial aspect of the lower extremity/ankle with mixed fibro granular layer. Negative Stemmer sign left foot. There is evidence of stasis dermatitis with hyperpigmentation/hemosiderin deposition/staining of skin left lower extremity. There are varicosities noted of the lower extremity with mild lower extremity edema. There is no erythema or rubor of the left lower extremity. Does have increased edema secondary to his vascular procedure. Musculoskeletal: Muscle strength 5 of 5 age-appropriate. There is decreased range of motion of the ankle joint dorsiflexion with knee extended without pain or crepitus. Decreased range of motion of the STJ, MTJ, and first MTPJ without pain or crepitus. No pain to palpation of calf. Skin no rashes or lesions noted General [...] Nurse 1 - General Ulcer Assessment Start: 05/22/25 09:37 Freq: Status: Active Protocol: ANAYA Activity Type Activity Date Activity User E-sign Co-sign Detail Recorded Client Recorded Date Recorded By Document 05/22/25 09:38 [id number] 05/22/25 09:39 Document 05/25/25 09:44 DL [id number] 05/25/25 09:52 DL 05/22/25 05/25/25 09:38 09:44 - Today's Visit Information Type of service Nurse-only Follow-up Visit Visit (Physician/CO[employer]EE [employer] ATTENDANT ) Arrival Mode Ambulatory Ambulatory Transfer Assistance Manual Patient Identification Verified (Name & No Yes ) Patient Requires Transmission-Based No Precautions Vital Signs Temperature (97.8 F-99.1 F) 96.7 F L 96.9 F L Temperature Source Temporal Temporal Pulse Rate (60-100) 70 65 Pulse Location Monitor Monitor Respiratory Rate (12-18) 16 18 Respiratory rate source Observation Observation Blood Pressure (90/60-120/80) 118/57 L 133/74 H Blood Pressure Mean (mm Hg) 77 93 Source Monitor Monitor Position Sitting Blood Pressure Location Left [...] Nurse 1 - General Ulcer Measurement Start: 05/22/25 09:37 Freq: Status: Active Protocol: Activity Type Activity Date Activity User E-sign Co-sign Detail Recorded Client Recorded Date Recorded By Document 05/22/25 09:38 ALEJANDRO [id number] 05/22/25 09:39 Document 05/25/25 09:44 DL [id number] 05/25/25 09:52 DL 05/22/25 05/25/25 09:38 09:44 Wound Center Nurse 1 #1 L Med Ankle CLUSTER -Current Size (cm) - Length 6 -Current Size (cm) - Width 1.8 -Current Size (cm) - Depth 0.1 -Total Square Cm 10.8 -Photo Taken Yes -Exudate Amt Medium -Exudate Type Serosanguineous -Wound Margin Thickened -Granulation Amt Medium (34-66%) -Granulation Quality Red -Necrosis Amt Medium (34-66%) -Necrotic Tissue Type Adherent Slough -Structure Exposed N/A -Texture (Megan-wound Skin Appearance) Scarring -Moisture (Megan-wound Skin Appearance) No Abnormality -Color (Megan-wound Skin Appearance) No Abnormality -Temperature (Megan-wound Skin No Abnormality Appearance) (Pt Warm) -Ulcer Cleansing Soap and Water -Foul Odor after Cleansing No -Anesthetic Used 5% Lidocaine Gel Lower Limb Edema Present NA WC - Nurse 2 - General Ulcer CM Notes Start: 05/22/25 09:37 Freq: Status: Active Protocol: Activity Type Activity Date Activity User E-sign Co-sign Detail Recorded Client Recorded Date Recorded By Document 05/25/25 10:32 DS [id number] 05/25/25 10:34 DS 05/25/25 10:32 Wound Center Nurse 2 -Time 10:33 -Correct Patient Yes -Correct Side, Site, Position Yes -Correct Procedure Yes -Procedure Performed Yes -Type of Procedure Debridement -Clinical Debridement Subcutaneous -Tissue Removed Subcutaneous -Post Debridement (cm) - Length 4.5 -Post Debridement (cm) - Width 2.2 -Post Debridement (cm) - Depth 0.1 -Total Square (Post) (cm) 9.90 -Area of Debridement (cm) - Length 4.5 -Area of Debridement (cm) - Width 2.2 -Total Square (Area) (cm) 9.90 -Tunneling No -Undermining/Tunneling No -Circular Undermining No -Wound/Ulcer Outcome Not Healed -Ulcer Cleansing Rinsed/ Irrigated with Saline -Foul Odor after Cleansing No -Bioengineered Tissue No -Bleeding Controlled with Pressure -Treatment Response Procedure Tolerated Well -Debridement - Subq, 1st 20sq cm Yes Pain Scale: 0-10 Numeric Is Patient Pain Free? Yes - Nurse 3 - General Ulcer D/C NN Start: 05/22/25 09:37 Freq: Status: Active Protocol: Activity Type Activity Date Activity User E-sign Co-sign Detail Recorded Client Recorded Date Recorded By Document 05/22/25 09:38 ALEJANDRO [id number] 05/22/25 09:39 JF Document 05/25/25 10:58 DL [id number] 05/25/25 11:00 DL 05/22/25 05/25/25 09:38 10:58 Pain Scale: 0-10 Numeric Is Patient Pain Free? Yes Yes Wound Care Center Nurse 3 #1 L Med Ankle CLUSTER -Ulcer Cleansing Rinsed/ dakins Irrigated with Saline -Foul Odor after Cleansing No -Primary Dressing Applied Aquacel Extra, NonAdherent Contact Layer, Promogran Abran Matter -Other Dressing Unna -Primary Dressing Covered/Secured with Dry Gauze & Roll Gauze -Aquacel Extra 1 -Promogran Abran Matter 1 -Wound Comment(s) use patient's own supply of abran and aqaucel extra LLE -Multi-Layered Wrap Application Unna Boot - Unna Boot - Left Left -Unna- Left (Qty applied) 1 1 Treatment Response Procedure Tolerated Well WC - Visit Discharge Discharge Condition Stable Stable Ambulatory Status Ambulatory Ambulatory Transportation Private Auto Private Auto Medication Reconcilliation completed & Yes provided to patient/care provider Clinical Summary of Care Provided Yes Assessment/Plan Assessment/Plan (1) Non-pressure chronic ulcer of left calf with fat layer exposed: CODE(S): L97.222 - Non-pressure chronic ulcer of left calf with fat layer exposed (2) Cellulitis of left lower limb: CODE(S): L03.116 - Cellulitis of left lower limb (3) Venous insufficiency (chronic) (peripheral): CODE(S): I87.2 - Venous insufficiency (chronic) (peripheral) (4) Bilateral lower extremity edema: CODE(S): R60.0 - Localized edema (5) Venous stasis ulcer of ankle with fat [...] Non-pressure chronic ulcer of left ankle with fatlayer exposed PLAN: Plan Patient seen and evaluated Predebridement measurement 4.4 cm x 2.1 cm x 0.1 cm Postdebridement measurement 4.5 cm x 2.2 cm x 0.1 cm Ulceration site did undergo debridement as noted in the clinical panel above. Site cleansed with Dakin's. Abran to wound site, Adaptic applied to site, Suprasorb applied over this. Unna Boot compression applied to the left lower extremity. He is to continue to keep the dressing clean, dry, and intact and toutilize cast bag when showering to maintain compliance. There is increase in size of ulceration versus previous visit despite improvement in edema due to continued prolonged standing continued serous drainage post procedure. Swab culture was obtained of the site 05/18/2025. Results demonstrate strep agalactiae and Serratia marcescens. Due to positive cultures following his Dakin's wash he was prescribed doxycycline 100 mg twice daily x 14 days and ciprofloxacin 500 mg twice daily x 14 days (stop date 06/08/2025). Will continue to monitor for improvement. Stat Doppler for 02/16/2025 was negative for DVT. He did undergo repeat venous study 03/14/25 and underwent venous ablation on April 13. He was [...] wrap was applied for 02/16/2025, awaiting approval. Will apply for advanced wound care product, EpiFix for application. He is following with Dr. Mckee for procedure to aid in his venous insufficiency. Procedure performed 04/13/25. Recent visit with Dr. Mckee 04/26/2025. Discussed continued diet to aid in healing [...] care recommendations were made: Dressing: Abran to wound site, Adaptic and suprsorb to the left lower extremitywith Unna boot compression. Will continue compression stocking to right lower extremity Wash: Do not get wet left lower extremity Tissue growth optimization: Abran Offload: Unna boot compression Vascular: Does have history of positive venous insufficiency/reflux. Underwent procedure 04/13/2025 as above. Edema: Unna boot compression and elevation of the lower extremities Infection: No signs of infection Pain: May take [id number] Tylenol Extra Strength for discomfort Host factors: Chronic venous insufficiency, chronic lower extremity edema, prolonged standing/activity, advanced age complicate healing. Will return for unna boot dressing change on 05/29/2025 with nursing staff. I answered all the patient's questions. To return to the wound healing center in 1 week or call sooner if the patient has any questions or concerns. 05/25/25 1242 <Electronically signed by Merrill Burns DPM> Cosigner Signature (if applicable): CC: ~ Signed [facility] Work Phone: 1(984) 441-578008-07-2025 Progress note [facility] [address] [place] [address] Progress Note - Wound Care 05/25/25 1230 MR#: [id number] Acct: [id number] Name: WELLINGTON GONZAELZ Rep #:[id number] : 1945 80 From: Merrill machado DPM PCP: Dr. Randa Joseph, DO Status:REG RCR Location: History of Present Illness Date of Service: 05/25/25 Chief Complaint: Left medial ankle wound History [...] aspect of the left lower extremity. He underwent vascular procedure with Dr. Mckee on 04/13/25. Had recent follow-up with vascular on 04/26/2025. Was placed in unna boot compression in addition to being placed on lasix for one week with improvement noted in edema. Edema secondary to his previous procedure has improved but drainage still remains due to patient long duration on his feet. States he does not sit often. Continues to try to elevating his legs higher thanwhat he previously had been when he does sit. Does have some redness and tenderness around the wound site. Still continues standing for long periods of time performing woodworking in his garage. He denies constitutional symptoms. Denies further complaints. Objective Data Objective Data Vital Signs: Vital Signs Temp Pulse Resp BP 96.9 F L 65 18 133/74 H 05/25/25 09:44 05/25/25 09:44 05/25/25 09:44 05/25/25 09:44 Physical Exam Const alert, oriented x3 and no apparent distress General Appearance: cooperative HEENT normocephalic Eyes General Eye: normal appearance of both eyes Neck General: normal visual inspection Lymph Lymphatic: no lymphadenopathy noted and no lymphedema noted Resp normal respiratory effort Cardio regular rate and regular rhythm Extremity no calf tenderness Extremity Narrative: Left lower extremity: Vascular: DP and PT pulses weakly palpable. Capillary fill time to digits is 5 seconds. Normal temperature gradient. There is absent hair growth to digits noted. Dermatological: There is a full-thickness ulceration noted to the medial aspect of the lower extremity/ankle with mixed fibro granular layer. Negative Stemmer sign left foot. There is evidence of stasis dermatitis with hyperpigmentation/hemosiderin deposition/staining of skin left lower extremity. There are varicosities noted of the lower extremity with mild lower extremity edema. There is no erythema or rubor of the left lower extremity. Does have increased edema secondary to his vascular procedure. Musculoskeletal: Muscle strength 5 of 5 age-appropriate. There is decreased range of motion of the ankle joint dorsiflexion with knee extended without pain or crepitus. Decreased range of motion of the STJ, MTJ, and first MTPJ without pain or crepitus. No pain to palpation of calf. Skin no rashes or lesions noted General [...] Nurse 1 - General Ulcer Assessment Start: 05/22/25 09:37 Freq: Status: Active Protocol: LA NENA.JESUS Activity Type Activity Date Activity User E-sign Co-sign Detail Recorded Client Recorded Date Recorded By Document 05/22/25 09:38 [id number] 05/22/25 09:39 Document 05/25/25 09:44 DL [id number] 05/25/25 09:52 DL 05/22/25 05/25/25 09:38 09:44 - Today's Visit Information Type of service Nurse-only Follow-up Visit Visit (Physician/CO[employer]EE [employer]OP ATTENDANT ) Arrival Mode Ambulatory Ambulatory Transfer Assistance Manual Patient Identification Verified (Name & No Yes ) Patient Requires Transmission-Based No Precautions Vital Signs Temperature (97.8 F-99.1 F) 96.7 F L 96.9 F L Temperature Source Temporal Temporal Pulse Rate (60-100) 70 65 Pulse Location Monitor Monitor Respiratory Rate (12-18) 16 18 Respiratory rate source Observation Observation Blood Pressure (90/60-120/80) 118/57 L 133/74 H Blood Pressure Mean (mm Hg) 77 93 Source Monitor Monitor Position Sitting Blood Pressure Location Left [...] Nurse 1 - General Ulcer Measurement Start: 05/22/25 09:37 Freq: Status: Active Protocol: Activity Type Activity Date Activity User E-sign Co-sign Detail Recorded Client Recorded Date Recorded By Document 05/22/25 09:38 JF [id number] 05/22/25 09:39 JF Document 05/25/25 09:44 DL [id number] 05/25/25 09:52 DL 05/22/25 05/25/25 09:38 09:44 Wound Center Nurse 1 #1 L Med Ankle CLUSTER -Current Size (cm) - Length 6 -Current Size (cm) - Width 1.8 -Current Size (cm) - Depth 0.1 -Total Square Cm 10.8 -Photo Taken Yes -Exudate Amt Medium -Exudate Type Serosanguineous -Wound Margin Thickened -Granulation Amt Medium (34-66%) -Granulation Quality Red -Necrosis Amt Medium (34-66%) -Necrotic Tissue Type Adherent Slough -Structure Exposed N/A -Texture (Megan-wound Skin Appearance) Scarring -Moisture (Megan-wound Skin Appearance) No Abnormality -Color (Megan-wound Skin Appearance) No Abnormality -Temperature (Megan-wound Skin No Abnormality Appearance) (Pt Warm) -Ulcer Cleansing Soap and Water -Foul Odor after Cleansing No -Anesthetic Used 5% Lidocaine Gel Lower Limb Edema Present NA WC - Nurse 2 - General Ulcer CM Notes Start: 05/22/25 09:37 Freq: Status: Active Protocol: Activity Type Activity Date Activity User E-sign Co-sign Detail Recorded Client Recorded Date Recorded By Document 05/25/25 10:32 DS [id number] 05/25/25 10:34 DS 05/25/25 10:32 Wound Center Nurse 2 -Time 10:33 -Correct Patient Yes -Correct Side, Site, Position Yes -Correct Procedure Yes -Procedure Performed Yes -Type of Procedure Debridement -Clinical Debridement Subcutaneous -Tissue Removed Subcutaneous -Post Debridement (cm) - Length 4.5 -Post Debridement (cm) - Width 2.2 -Post Debridement (cm) - Depth 0.1 -Total Square (Post) (cm) 9.90 -Area of Debridement (cm) - Length 4.5 -Area of Debridement (cm) - Width 2.2 -Total Square (Area) (cm) 9.90 -Tunneling No -Undermining/Tunneling No -Circular Undermining No -Wound/Ulcer Outcome Not Healed -Ulcer Cleansing Rinsed/ Irrigated with Saline -Foul Odor after Cleansing No -Bioengineered Tissue No -Bleeding Controlled with Pressure -Treatment Response Procedure Tolerated Well -Debridement - Subq, 1st 20sq cm Yes Pain Scale: 0-10 Numeric Is Patient Pain Free? Yes - Nurse 3 - General Ulcer D/C NN Start: 05/22/25 09:37 Freq: Status: Active Protocol: Activity Type Activity Date Activity User E-sign Co-sign Detail Recorded Client Recorded Date Recorded By Document 05/22/25 09:38 [id number] 05/22/25 09:39 Document 05/25/25 10:58 DL [id number] 05/25/25 11:00 DL 05/22/25 05/25/25 09:38 10:58 Pain Scale: 0-10 Numeric Is Patient Pain Free? Yes Yes Wound Care Center Nurse 3 #1 L Med Ankle CLUSTER -Ulcer Cleansing Rinsed/ dakins Irrigated with Saline -Foul Odor after Cleansing No -Primary Dressing Applied Aquacel Extra, NonAdherent Contact Layer, Promogran Abran Matter -Other Dressing Unna -Primary Dressing Covered/Secured with Dry Gauze & Roll Gauze -Aquacel Extra 1 -Promogran Abran Matter 1 -Wound Comment(s) use patient's own supply of abran and aqaucel extra LLE -Multi-Layered Wrap Application Unna Boot - Unna Boot - Left Left -Unna- Left (Qty applied) 1 1 Treatment Response Procedure Tolerated Well - Visit Discharge Discharge Condition Stable Stable Ambulatory Status Ambulatory Ambulatory Transportation Private Auto Private Auto Medication Reconcilliation completed & Yes provided to patient/care provider Clinical Summary of Care Provided Yes Assessment/Plan Assessment/Plan (1) Non-pressure chronic ulcer of left calf with fat layer exposed: CODE(S): L97.222 - Non-pressure chronic ulcer of left calf with fat layer exposed (2) Cellulitis of left lower limb: CODE(S): L03.116 - Cellulitis of left lower limb (3) Venous insufficiency (chronic) (peripheral): CODE(S): I87.2 - Venous insufficiency (chronic) (peripheral) (4) Bilateral lower extremity edema: CODE(S): R60.0 - Localized edema (5) Venous stasis ulcer of ankle with fat [...] Non-pressure chronic ulcer of left ankle with fatlayer exposed PLAN: Plan Patient seen and evaluated Predebridement measurement 4.4 cm x 2.1 cm x 0.1 cm Postdebridement measurement 4.5 cm x 2.2 cm x 0.1 cm Ulceration site did undergo debridement as noted in the clinical panel above. Site cleansed with Dakin's. Abran to wound site, Adaptic applied to site, Suprasorb applied over this. Unna Boot compression applied to the left lower extremity. He is to continue to keep the dressing clean, dry, and intact and toutilize cast bag when showering to maintain compliance. There is increase in size of ulceration versus previous visit despite improvement in edema due to continued prolonged standing continued serous drainage post procedure. Swab culture was obtained of the site 05/18/2025. Results demonstrate strep agalactiae and Serratia marcescens. Due to positive cultures following his Dakin's wash he was prescribed doxycycline 100 mgtwice daily x 14 days and ciprofloxacin 500 mg twice daily x 14 days (stop date 06/08/2025). Will continue to monitor for improvement. Stat Doppler for 02/16/2025 was negative for DVT. He did undergo repeat venous study 03/14/25 and underwent venous ablation on April 13. He was [...] wrap was applied for 02/16/2025, awaiting approval. Will apply for advanced wound care product, EpiFix for application. He is following with Dr. Mckee for procedure to aid in his venous insufficiency. Procedure performed 04/13/25. Recent visit with Dr. Mckee 04/26/2025. Discussed continued diet to aid in healing [...] care recommendations were made: Dressing: Abran to wound site, Adaptic and suprsorb to the left lower extremitywith Unna boot compression. Will continue compression stocking to right lower extremity Wash: Do not get wet left lower extremity Tissue growth optimization: Abran Offload: Unna boot compression Vascular: Does have history of positive venous insufficiency/reflux. Underwent procedure 04/13/2025 as above. Edema: Unna boot compression and elevation of the lower extremities Infection: No signs of infection Pain: May take [id number] Tylenol Extra Strength for discomfort Host factors: Chronic venous insufficiency, chronic lower extremity edema, prolonged standing/activity, advanced age complicate healing. Will return for unna boot dressing change on 05/29/2025 with nursing staff. I answered all the patient's questions. To return to the wound healing center in 1 week or call sooner if the patient has any questions or concerns. 05/25/25 1242 Cosigner Signature (if applicable): CC: ~ Signed [facility]07-31-2025 Progress note Author Merrill Burns [facility] Note Date/Time May 18, 2025 10:5 5am [facility] [address] [place] [address] Progress Note - Wound Care 05/18/25 1048 MR#: [id number] Acct: [id number] Name: WELLINGTON GONZALEZ Rep #:[id number] : 1945 80 From: Merrill machado DPM PCP: Dr. Randa Joseph, DO Status:REG RCR Location: History of Present Illness Date of Service: 05/18/25 Chief Complaint: Left medial ankle wound History [...] aspect of the left lower extremity. He underwent vascular procedure with Dr. Mckee on 04/13/25. Had recent follow-up with vascular on 04/26/2025. Was placed in unna boot compression last week in addition to being placed on lasix for one week. Edema secondary to his previous procedure has improved but drainage still remains due to patient long duration on his feet. States he does not sit often. Continues to try to elevating his legs higher than what he previously had been when he does sit. Still continues standing for long periods of time performing woodworking in his garage. He denies constitutional symptoms. Denies further complaints. Objective Data Objective Data Vital Signs: Vital Signs Temp Pulse Resp BP O2 Del Method 96.7 F L 67 18 130/67 H Room Air 05/18/25 09:10 05/18/25 09:10 05/18/25 09:10 05/18/25 09:10 05/18/25 09:10 Oxygen Delivery Method Room Air Physical Exam Const alert, oriented x3 and no apparent distress General Appearance: cooperative HEENT normocephalic Eyes General Eye: normal appearance of both eyes Neck General: normal visual inspection Lymph Lymphatic: no lymphadenopathy noted and no lymphedema noted Resp normal respiratory effort Cardio regular rate and regular rhythm Extremity no calf tenderness Extremity Narrative: Left lower extremity: Vascular: DP and PT pulses weakly palpable. Capillary fill time to digits is 5 seconds. Normal temperature gradient. There is absent hair growth to digits noted. Dermatological: There is a full-thickness ulceration noted to the medial aspect of the lower extremity/ankle with mixed fibro granular layer. Negative Stemmer sign left foot. There is evidence of stasis dermatitis with hyperpigmentation/hemosiderin deposition/staining of skin left lower extremity. There are varicosities noted of the lower extremity with mild lower extremity edema. There is no erythema or rubor of the left lower extremity. Does have increased edema secondary to his vascular procedure. Musculoskeletal: Muscle strength 5 of 5 age-appropriate. 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 Activity Type Activity Date Activity User E-sign Co-sign Detail Recorded Client Recorded Date Recorded By Document 04/20/25 08:43 KW [id number] 04/20/25 08:52 KW Document 04/27/25 08:53 DL [id number] 04/27/25 08:59 DL Document 05/04/25 08:54 KW [id number] 05/04/25 08:59 KW Document 05/11/25 09:44 DL [id number] 05/11/25 09:50 DL Document 05/15/25 15:13 ML [id number] 05/15/25 15:15 ML Document 05/18/25 09:10 KW [id number] 05/18/25 09:11 KW 04/20/25 04/27/25 05/04/25 08:43 08:53 08:54 - Today's Visit Information Type of service Follow-up Visit Follow-up Visit Follow-up Visit (Physician/COFFEE SHOP ATTENDANT (Physician/COFFEE SHOP ATTENDANT (Physician/COFFEE SHOP ATTENDANT ) ) ) Arrival Mode Ambulatory Ambulatory Ambulatory Transfer Assistance None Patient Identification Verified (Name & Yes Yes Yes ) Patient Requires Transmission-Based No Precautions Vital Signs Temperature (97.8 F-99.1 F) 96.4 F L 96.8 F L 96.8 F L Temperature Source Temporal Temporal Temporal Pulse Rate (60-100) 66 68 69 Pulse Location Monitor Monitor Monitor Respiratory Rate (12-18) 18 18 18 Respiratory rate source Observation Observation Observation Oxygen Delivery Method Room Air Room Air Blood Pressure (90/60-120/80) 134/63 H 139/66 H 137/83 H Blood Pressure Mean (mm Hg) 86 90 101 Source Monitor Monitor Monitor Position Semi-Fowlers Semi-Fowlers Blood Pressure Location Left Arm Right Arm History Since Last [...] Has offloadiing in place as prescribed N/A Yes N/A Experienced any changes in pain level or No No No management Left Footwear Regular Shoe Regular Shoe Regular Shoe Right Footwear Regular Shoe Regular Shoe Regular Shoe Pain Scale: 0-10 Numeric Is Patient Pain Free? Yes Yes Yes 05/11/25 05/15/25 05/18/25 09:44 15:13 09:10 WC - Today's Visit Information Type of service Follow-up Visit Nurse-only Follow-up Visit (Physician/COFFEE SHOP ATTENDANT Visit (Physician/COFFEE SHOP ATTENDANT ) ) Arrival Mode Ambulatory Ambulatory Ambulatory Transfer Assistance None None Patient Identification Verified (Name & Yes Yes Yes ) Patient Requires Transmission-Based No No Precautions Vital Signs Temperature (97.8 F-99.1 F) 97.7 F L 98 F 96.7 F L Temperature Source Temporal Temporal Temporal Pulse Rate (60-100) 66 79 67 Pulse Location Monitor Monitor Monitor Respiratory Rate (12-18) 16 14 18 Respiratory rate source Observation Monitor Observation Oxygen Delivery Method Room Air Blood Pressure (90/60-120/80) 142/75 H 119/68 130/67 H Blood Pressure Mean (mm Hg) 97 85 88 Source Monitor Monitor Monitor Position Sitting Semi-Fowlers Blood Pressure Location Right Arm Left Arm History Since Last [...] Nurse 1 - General Ulcer Measurement Start: 04/20/25 08:43 Freq: Status: Active Protocol: Activity Type Activity Date Activity User E-sign Co-sign Detail Recorded Client Recorded Date Recorded By Document 04/20/25 08:43 KW [id number] 04/20/25 08:52 KW Document 04/27/25 08:53 DL [id number] 04/27/25 08:59 DL Document 05/04/25 08:54 KW [id number] 05/04/25 08:59 KW Document 05/11/25 09:44 DL [id number] 05/11/25 09:50 DL Document 05/15/25 15:17 ML [id number] 05/15/25 15:17 ML Document 05/18/25 09:10 KW [id number] 05/18/25 09:11 KW 04/20/25 04/27/25 05/04/25 08:43 08:53 08:54 Wound Center Nurse 1 #1 L Med Ankle CLUSTER -Current Size (cm) - Length 0.1 0.1 1.1 -Current Size (cm) - Width 0.1 0.1 1.1 -Current Size (cm) - Depth 0 0.1 0.1 -Total Square Cm 0.01 0.01 1.21 -Date of Last Picture (Recall this 04/20/25 field) -Photo Taken Yes -Exudate Amt None Present Large -Exudate Type Serosanguineous Serosanguineous -Wound Margin Indistinct, Non Distinct, Indistinct, Non -Visible Outline -Visible Attached -Granulation Amt Medium (34-66%) Large (67-100%) Large (67-100%) -Granulation Quality [place] Pale,[place] -Necrosis Amt Medium (34-66%) Small (1-33%) -Necrotic Tissue Type Adherent Slough Adherent Slough -Structure Exposed N/A -Texture (Megan-wound Skin Appearance) Assessed Localized Edema Assessed, ,Scarring Localized Edema -Moisture (Megan-wound Skin Appearance) Assessed No Abnormality Assessed,Dry/ Scaly -Color (Megan-wound Skin Appearance) Assessed, No Abnormality Assessed, Hemosiderin Erythema Staining -Temperature (Megan-wound Skin No Abnormality No Abnormality No Abnormality Appearance) (Pt Warm) (Pt Warm) (Pt Warm) -Tenderness on Palpation (Megan-wound No No No Skin Appearance) -Ulcer Cleansing Soap and Water Soap and Water Rinsed/ Irrigated with Saline -Foul Odor after Cleansing No No -Anesthetic Used 5% Lidocaine 5% Lidocaine 5% Lidocaine Gel Gel Gel Left Calf (cm) 37.5 39.3 39.5 Left Ankle (cm) 26.5 24.5 23 05/11/25 05/15/25 05/18/25 09:44 15:17 09:10 Wound Center Nurse 1 #1 L Med Ankle CLUSTER -Current Size (cm) - Length 4.6 4.2 -Current Size (cm) - Width 0.6 1.3 -Current Size (cm) - Depth 0.1 0.1 -Total Square Cm 2.76 5.46 -Date of Last Picture (Recall this 05/18/25 field) -Photo Taken -Exudate Amt Small Medium -Exudate Type Serosanguineous Serosanguineous -Wound Margin Distinct, Distinct, Outline Outline Attached Attached -Granulation Amt Large (67-100%) Large (67-100%) -Granulation Quality [place] Red -Necrosis Amt None Present (0 Large (67-100%) %) -Necrotic Tissue Type Adherent Slough -Structure Exposed N/A -Texture (Megan-wound Skin Appearance) Scarring Assessed -Moisture (Megan-wound Skin Appearance) No Abnormality Assessed -Color (Megan-wound Skin Appearance) Hemosiderin Assessed, Staining Erythema -Temperature (Megan-wound Skin No Abnormality No Abnormality Appearance) (Pt Warm) (Pt Warm) -Tenderness on Palpation (Megan-wound No Skin Appearance) -Ulcer Cleansing Soap and Water Soap and Water -Foul Odor after Cleansing No -Anesthetic Used 5% Lidocaine 5% Lidocaine Gel Gel Left Calf (cm) 41 35.5 41.7 Left Ankle (cm) 23 23 23.3 WC - Nurse 2 - General Ulcer CM Notes Start: 04/20/25 08:43 Freq: Status: Active Protocol: Activity Type Activity Date Activity User E-sign Co-sign Detail Recorded Client Recorded Date Recorded By Document 04/20/25 09:11 BMF [id number] 04/20/25 09:15 BMF Edit Result 04/20/25 09:11 BMF (1) ..25.7 04/20/25 09:28 BMF Document 04/27/25 09:07 BM [id number] 04/27/25 09:12 BM Document 05/04/25 09:09 BMF [id number] 05/04/25 09:13 BM Document 05/11/25 10:07 BMF [id number] 05/11/25 10:12 BM Document 05/18/25 09:58 BMF [id number] 05/18/25 10:07 [facility] (1) #1 L Med Ankle CLUSTER - Post Debridement (cm) - Length 0.1 => 0.5 - Post Debridement (cm) - Width 0.1 => 0.5 - Total Square (Post) (cm) 0.01 => 0.25 - Area of Debridement (cm) - Length 0.1 => 0.5 - Area of Debridement (cm) - Width 0.1 => 0.5 - Total Square (Area) (cm) 0.01 => 0.25 04/20/25 04/27/25 05/04/25 09:11 09:07 09:09 Wound Center Nurse 2 #1 L Med Ankle CLUSTER -Time 09:11 09:07 09:09 -Correct Patient Yes Yes -Correct Side, Site, Position Yes Yes -Correct Procedure Yes Yes -Procedure Performed Yes Yes -Type of Procedure Debridement Debridement -Clinical Debridement Subcutaneous Subcutaneous -Tissue Removed Subcutaneous Subcutaneous -Post Debridement (cm) - Length 0.5 1.1 2 -Post Debridement (cm) - Width 0.5 1.1 1.6 -Post Debridement (cm) - Depth 0.1 0.1 0.1 -Total Square (Post) (cm) 0.25 1.21 3.2 -Area of Debridement (cm) - Length 0.5 1.1 2 -Area of Debridement (cm) - Width 0.5 1.1 1.6 -Total Square (Area) (cm) 0.25 1.21 3.2 -Tunneling No No No -Undermining/Tunneling No No No -Circular Undermining No No No -Wound/Ulcer Outcome Not Healed Not Healed Not Healed -Ulcer Cleansing Rinsed/ Rinsed/ Irrigated with Irrigated with Saline Saline -Foul Odor after Cleansing No No -Bioengineered Tissue No No -Bleeding Controlled with NA Pressure Pressure -Treatment Response Procedure Procedure Tolerated Well Tolerated Well -Debridement - Subq, 1st 20sq cm Yes Yes Pain Scale: 0-10 Numeric Is Patient Pain Free? Yes Yes Yes 05/11/25 05/18/25 10:07 09:58 Wound Center Nurse 2 #1 L Med Ankle CLUSTER -Time 10:07 09:58 -Correct Patient Yes Yes -Correct Side, Site, Position Yes Yes -Correct Procedure Yes Yes -Procedure Performed Yes Yes -Type of Procedure Debridement Debridement -Clinical Debridement Subcutaneous Subcutaneous -Tissue Removed Subcutaneous Subcutaneous -Post Debridement (cm) - Length 1.9 3.2 -Post Debridement (cm) - Width 1.9 1 -Post Debridement (cm) - Depth 0.1 0.1 -Total Square (Post) (cm) 3.61 3.2 -Area of Debridement (cm) - Length 1.9 3.2 -Area of Debridement (cm) - Width 1.9 1 -Total Square (Area) (cm) 3.61 3.2 -Tunneling No No -Undermining/Tunneling No No -Circular Undermining No No -Wound/Ulcer Outcome Not Healed Not Healed -Ulcer Cleansing Rinsed/ Irrigated with Saline -Foul Odor after Cleansing No -Bioengineered Tissue No -Bleeding Controlled with Pressure Pressure -Treatment Response Procedure Procedure Tolerated Well Tolerated Well -Debridement - Subq, 1st 20sq cm Yes Yes Pain Scale: 0-10 Numeric Is Patient Pain Free? Yes Yes - Nurse 3 - General Ulcer D/C NN Start: 04/20/25 08:43 Freq: Status: Active Protocol: Activity Type Activity Date Activity User E-sign Co-sign Detail Recorded Client Recorded Date Recorded By Document 04/20/25 09:33 KW [id number] 04/20/25 09:34 KW Document 04/27/25 09:24 [facility] [id number] 04/27/25 09:25 [facility] Document 05/04/25 09:22 BMF [id number] 05/04/25 09:22 [facility] Document 05/11/25 10:40 MT [id number] 05/11/25 10:41 MT Document 05/15/25 15:13 ML [id number] 05/15/25 15:15 ML Document 05/18/25 10:11 KW [id number] 05/18/25 10:11 KW 04/20/25 04/27/25 05/04/25 09:33 09:24 09:22 Wound Care Center Nurse 3 #1 L Med Ankle CLUSTER -Ulcer Cleansing Rinsed/ Rinsed/ Irrigated with Irrigated with Saline Saline -Foul Odor after Cleansing No No -Negative Pressure Wound Therapy -Primary Dressing Applied NonAdherent NonAdherent NonAdherent Contact Layer, Contact Layer, Contact Layer, Silicone Border Silicone Border Silicone Border Foam 4x4 Foam 4x4 Foam 4x4 -Other Dressing adaptic BETADINE -Primary Dressing Covered/Secured with -Aquacel Extra -Promogran Abran Matter -Silicone Border Foam 4x4 1 1 1 LLE -Multi-Layered Wrap Application -Tubular Bandage Double Layer Double Layer Double Layer -Size of Tubigrip Used Size E Size D Size D -Size D ($) 2 2 -Size E ($) 2 -Unna- Left (Qty applied) Treatment Response Procedure Tolerated Well Pain Scale: 0-10 Numeric Is Patient Pain Free? Yes Yes Yes WC - Visit Discharge Discharge Condition Stable Stable Stable Ambulatory Status Ambulatory Ambulatory Ambulatory Transportation Private Auto Private Auto Private Auto Medication Reconcilliation completed & No provided to patient/care provider Clinical Summary of Care Provided Yes Notes: 05/11/25 05/15/25 05/18/25 10:40 15:13 10:11 Wound Care Center Nurse 3 #1 L Med Ankle CLUSTER -Ulcer Cleansing Soap and Water Soap and Water -Foul Odor after Cleansing No -Negative Pressure Wound Therapy N/A -Primary Dressing Applied Promogran Promogran Aquacel Extra, Abran Matter Abran Matter NonAdherent Contact Layer -Other Dressing unna pt own abran -Primary Dressing Covered/Secured with Dry Gauze, Secured with Tape -Aquacel Extra 1 -Promogran Abran Matter 1 1 -Silicone Border Foam 4x4 LLE -Multi-Layered Wrap Application Unna Boot - Unna Boot - Unna Boot - Left Left Left -Tubular Bandage -Size of Tubigrip Used -Size D ($) -Size E ($) -Unna- Left (Qty applied) 1 1 1 Treatment Response Pain Scale: 0-10 Numeric Is Patient Pain Free? Yes Yes Yes WC - Visit Discharge Discharge Condition Stable Stable Ambulatory Status Ambulatory Ambulatory Transportation Private Auto Private Auto Medication Reconcilliation completed & No No provided to patient/care provider Clinical Summary of Care Provided Yes Yes Notes: UNNA BOOT PLACED. PT KNOWS TO PLACE BAG OVER WHEN GETTING WET. Assessment/Plan Assessment/Plan (1) Non-pressure chronic ulcer of left calf with fat layer exposed: CODE(S): L97.222 - Non-pressure chronic ulcer of left calf with fat layer exposed (2) Venous insufficiency (chronic) (peripheral): CODE(S): I87.2 - Venous insufficiency (chronic) (peripheral) (3) Bilateral lower extremity edema: CODE(S): R60.0 - Localized edema (4) Venous stasis ulcer of ankle with fat [...] of left ankle with fat layer exposed PLAN: Plan Patient seen and evaluated Predebridement measurement 3.0 cm x 0.9 cm x 0.1 cm Ulceration site did undergo debridement as noted in the clinical panel above. Postdebridement measurement 3.2 cm x 1.0 cm x 0.1 cm. Abran to wound site, Adaptic applied to site, Suprasorb applied over this. Unna Boot compression applied to the left lower extremity. He is to continue to keep the dressing clean, dry, and intact and to utilize cast bag when showering to maintain compliance. There is increase in size of ulceration versus previous visit despite improvement in edema due to continued prolonged standing continued serous drainagepost procedure. Swab culture was obtained of the site, awaiting results. Stat Doppler for 02/16/2025 was negative for DVT. He did undergo repeat venous study 03/14/25 and underwent venous ablation on April 13. He was [...] wrap was applied for 02/16/2025, awaiting approval. Will apply for advanced wound care product, EpiFix for application. He is following with Dr. Mckee for procedure to aid in his venous insufficiency. Procedure performed 04/13/25. Recent visit with Dr. Mckee 04/26/2025. Discussed continued diet to aid in healing [...] care recommendations were made: Dressing: Abran to wound site, Adaptic and suprsorb to the left lower extremitywith Unna boot compression. Will continue compression stocking to right lower extremity Wash: Do not get wet left lower extremity Tissue growth optimization: Abran Offload: Unna boot compression Vascular: Does have history of positive venous insufficiency/reflux. Underwent procedure 04/13/2025 as above. Edema: Unna boot compression and elevation of the lower extremities Infection: No signs of infection Pain: May take [id number] Tylenol Extra Strength for discomfort Host factors: Chronic venous insufficiency, chronic lower extremity edema, prolonged standing/activity, advanced age complicate healing. Will return for unna boot dressing change on 05/22/2025 with nursing staff. I answered all the patient's questions. To return to the wound healing center in 1 week or call sooner if the patient has any questions or concerns. 05/18/25 1055 <Electronically signed by Merrill Burns DPM> Cosigner Signature (if applicable): CC: ~ Signed [facility] Work Phone: [phone] [phone] Progress note [facility] [address] [place] [address] Progress Note - Wound Care 05/18/25 1048 MR#: [id number] Acct: [id number] Name: WELLINGTON GONZALEZ Rep #:[id number] : 1945 80 From: Merrill machado DPM PCP: Dr. Randa Joseph, DO Status:REG RCR Location: History of Present Illness Date of Service: 05/18/25 Chief Complaint: Left medial ankle wound History [...] aspect of the left lower extremity. He underwent vascular procedure with Dr. Mckee on 04/13/25. Had recent follow-up with vascular on 04/26/2025. Was placed in unna boot compression last week in addition to being placed on lasix for one week. Edema secondary to his previous procedure has improved but drainage still remains due to patient long duration on his feet. States he does not sit often. Continues to try to elevating his legs higher thanwhat he previously had been when he does sit. Still continues standing for long periods of time performing woodworking in his garage. He denies constitutional symptoms. Denies further complaints. Objective Data Objective Data Vital Signs: Vital Signs Temp Pulse Resp BP O2 Del Method 96.7 F L 67 18 130/67 H Room Air 05/18/25 09:10 05/18/25 09:10 05/18/25 09:10 05/18/25 09:10 05/18/25 09:10 Oxygen Delivery Method Room Air Physical Exam Const alert, oriented x3 and no apparent distress General Appearance: cooperative HEENT normocephalic Eyes General Eye: normal appearance of both eyes Neck General: normal visual inspection Lymph Lymphatic: no lymphadenopathy noted and no lymphedema noted Resp normal respiratory effort Cardio regular rate and regular rhythm Extremity no calf tenderness Extremity Narrative: Left lower extremity: Vascular: DP and PT pulses weakly palpable. Capillary fill time to digits is 5 seconds. Normal temperature gradient. There is absent hair growth to digits noted. Dermatological: There is a full-thickness ulceration noted to the medial aspect of the lower extremity/ankle with mixed fibro granular layer. Negative Stemmer sign left foot. There is evidence of stasis dermatitis with hyperpigmentation/hemosiderin deposition/staining of skin left lower extremity. There are varicosities noted of the lower extremity with mild lower extremity edema. There is no erythema or rubor of the left lower extremity. Does have increased edema secondary to his vascular procedure. Musculoskeletal: Muscle strength 5 of 5 age-appropriate. [...] ankle Laterality: Left Wound Grade/Stage: Cisneros stage I [...] Nurse 1 - General Ulcer Assessment Start: 04/20/25 08:43 Freq: Status: Active Protocol: ANAYA Activity Type Activity Date Activity User E-sign Co-sign Detail Recorded Client Recorded Date Recorded By Document 04/20/25 08:43 KW [id number] 04/20/25 08:52 KW Document 04/27/25 08:53 DL [id number] 04/27/25 08:59 DL Document 05/04/25 08:54 KW [id number] 05/04/25 08:59 KW Document 05/11/25 09:44 DL [id number] 05/11/25 09:50 DL Document 05/15/25 15:13 ML [id number] 05/15/25 15:15 ML Document 05/18/25 09:10 KW [id number] 05/18/25 09:11 KW 04/20/25 04/27/25 05/04/25 08:43 08:53 08:54 WC - Today's Visit Information Type of service Follow-up Visit Follow-up Visit Follow-up Visit (Physician/COFFEE SHOP ATTENDANT (Physician/COFFEE SHOP ATTENDANT (Physician/COFFEE SHOP ATTENDANT ) ) ) Arrival Mode Ambulatory Ambulatory Ambulatory Transfer Assistance None Patient Identification Verified (Name & Yes Yes Yes ) Patient Requires Transmission-Based No Precautions Vital Signs Temperature (97.8 F-99.1 F) 96.4 F L 96.8 F L 96.8 F L Temperature Source Temporal Temporal Temporal Pulse Rate (60-100) 66 68 69 Pulse Location Monitor Monitor Monitor Respiratory Rate (12-18) 18 18 18 Respiratory rate source Observation Observation Observation Oxygen Delivery Method Room Air Room Air Blood Pressure (90/60-120/80) 134/63 H 139/66 H 137/83 H Blood Pressure Mean (mm Hg) 86 90 101 Source Monitor Monitor Monitor Position Semi-Fowlers Semi-Fowlers Blood Pressure Location Left Arm Right Arm History Since Last [...] Has offloadiing in place as prescribed N/A Yes N/A Experienced any changes in pain level or No No No management Left Footwear Regular Shoe Regular Shoe Regular Shoe Right Footwear Regular Shoe Regular Shoe Regular Shoe Pain Scale: 0-10 Numeric Is Patient Pain Free? Yes Yes Yes 05/11/25 05/15/25 05/18/25 09:44 15:13 09:10 - Today's Visit Information Type of service Follow-up Visit Nurse-only Follow-up Visit (Physician/COFFEE SHOP ATTENDANT Visit (Physician/COFFEE SHOP ATTENDANT ) ) Arrival Mode Ambulatory Ambulatory Ambulatory Transfer Assistance None None Patient Identification Verified (Name & Yes Yes Yes ) Patient Requires Transmission-Based No No Precautions Vital Signs Temperature (97.8 F-99.1 F) 97.7 F L 98 F 96.7 F L Temperature Source Temporal Temporal Temporal Pulse Rate (60-100) 66 79 67 Pulse Location Monitor Monitor Monitor Respiratory Rate (12-18) 16 14 18 Respiratory rate source Observation Monitor Observation Oxygen Delivery Method Room Air Blood Pressure (90/60-120/80) 142/75 H 119/68 130/67 H Blood Pressure Mean (mm Hg) 97 85 88 Source Monitor Monitor Monitor Position Sitting Semi-Fowlers Blood Pressure Location Right Arm Left Arm History Since Last [...] Nurse 1 - General Ulcer Measurement Start: 04/20/25 08:43 Freq: Status: Active Protocol: Activity Type Activity Date Activity User E-sign Co-sign Detail Recorded Client Recorded Date Recorded By Document 04/20/25 08:43 KW [id number] 04/20/25 08:52 KW Document 04/27/25 08:53 DL [id number] 04/27/25 08:59 DL Document 05/04/25 08:54 KW [id number] 05/04/25 08:59 KW Document 05/11/25 09:44 DL [id number] 05/11/25 09:50 DL Document 05/15/25 15:17 ML [id number] 05/15/25 15:17 ML Document 05/18/25 09:10 KW [id number] 05/18/25 09:11 KW 04/20/25 04/27/25 05/04/25 08:43 08:53 08:54 Wound Center Nurse 1 #1 L Med Ankle CLUSTER -Current Size (cm) - Length 0.1 0.1 1.1 -Current Size (cm) - Width 0.1 0.1 1.1 -Current Size (cm) - Depth 0 0.1 0.1 -Total Square Cm 0.01 0.01 1.21 -Date of Last Picture (Recall this 04/20/25 field) -Photo Taken Yes -Exudate Amt None Present Large -Exudate Type Serosanguineous Serosanguineous -Wound Margin Indistinct, Non Distinct, Indistinct, Non -Visible Outline -Visible Attached -Granulation Amt Medium (34-66%) Large (67-100%) Large (67-100%) -Granulation Quality [place] Pale,[place] -Necrosis Amt Medium (34-66%) Small (1-33%) -Necrotic Tissue Type Adherent Slough Adherent Slough -Structure Exposed N/A -Texture (Megan-wound Skin Appearance) Assessed Localized Edema Assessed, ,Scarring Localized Edema -Moisture (Megan-wound Skin Appearance) Assessed No Abnormality Assessed,Dry/ Scaly -Color (Megan-wound Skin Appearance) Assessed, No Abnormality Assessed, Hemosiderin Erythema Staining -Temperature (Megan-wound Skin No Abnormality No Abnormality No Abnormality Appearance) (Pt Warm) (Pt Warm) (Pt Warm) -Tenderness on Palpation (Megan-wound No No No Skin Appearance) -Ulcer Cleansing Soap and Water Soap and Water Rinsed/ Irrigated with Saline -Foul Odor after Cleansing No No -Anesthetic Used 5% Lidocaine 5% Lidocaine 5% Lidocaine Gel Gel Gel Left Calf (cm) 37.5 39.3 39.5 Left Ankle (cm) 26.5 24.5 23 05/11/25 05/15/25 05/18/25 09:44 15:17 09:10 Wound Center Nurse 1 #1 L Med Ankle CLUSTER -Current Size (cm) - Length 4.6 4.2 -Current Size (cm) - Width 0.6 1.3 -Current Size (cm) - Depth 0.1 0.1 -Total Square Cm 2.76 5.46 -Date of Last Picture (Recall this 05/18/25 field) -Photo Taken -Exudate Amt Small Medium -Exudate Type Serosanguineous Serosanguineous -Wound Margin Distinct, Distinct, Outline Outline Attached Attached -Granulation Amt Large (67-100%) Large (67-100%) -Granulation Quality [place] Red -Necrosis Amt None Present (0 Large (67-100%) %) -Necrotic Tissue Type Adherent Slough -Structure Exposed N/A -Texture (Megan-wound Skin Appearance) Scarring Assessed -Moisture (Megan-wound Skin Appearance) No Abnormality Assessed -Color (Megan-wound Skin Appearance) Hemosiderin Assessed, Staining Erythema -Temperature (Megan-wound Skin No Abnormality No Abnormality Appearance) (Pt Warm) (Pt Warm) -Tenderness on Palpation (Megan-wound No Skin Appearance) -Ulcer Cleansing Soap and Water Soap and Water -Foul Odor after Cleansing No -Anesthetic Used 5% Lidocaine 5% Lidocaine Gel Gel Left Calf (cm) 41 35.5 41.7 Left Ankle (cm) 23 23 23.3 WC - Nurse 2 - General Ulcer CM Notes Start: 04/20/25 08:43 Freq: Status: Active Protocol: Activity Type Activity Date Activity User E-sign Co-sign Detail Recorded Client Recorded Date Recorded By Document 04/20/25 09:11 BMF [id number] 04/20/25 09:15 BMF Edit Result 04/20/25 09:11 BMF (1) 10.10.25.7 04/20/25 09:28 BMF Document 04/27/25 09:07 BMF [id number] 04/27/25 09:12 BMF Document 05/04/25 09:09 BMF [id number] 05/04/25 09:13 BMF Document 05/11/25 10:07 BMF [id number] 05/11/25 10:12 BMF Document 05/18/25 09:58 BMF [id number] 05/18/25 10:07 BMF (1) #1 L Med Ankle CLUSTER - Post Debridement (cm) - Length 0.1 => 0.5 - Post Debridement (cm) - Width 0.1 => 0.5 - Total Square (Post) (cm) 0.01 => 0.25 - Area of Debridement (cm) - Length 0.1 => 0.5 - Area of Debridement (cm) - Width 0.1 => 0.5 - Total Square (Area) (cm) 0.01 => 0.25 04/20/25 04/27/25 05/04/25 09:11 09:07 09:09 Wound Center Nurse 2 #1 L Med Ankle CLUSTER -Time 09: 09:07 09:09 -Correct Patient Yes Yes -Correct Side, Site, Position Yes Yes -Correct Procedure Yes Yes -Procedure Performed Yes Yes -Type of Procedure Debridement Debridement -Clinical Debridement Subcutaneous Subcutaneous -Tissue Removed Subcutaneous Subcutaneous -Post Debridement (cm) - Length 0.5 1.1 2 -Post Debridement (cm) - Width 0.5 1.1 1.6 -Post Debridement (cm) - Depth 0.1 0.1 0.1 -Total Square (Post) (cm) 0.25 1.21 3.2 -Area of Debridement (cm) - Length 0.5 1.1 2 -Area of Debridement (cm) - Width 0.5 1.1 1.6 -Total Square (Area) (cm) 0.25 1.21 3.2 -Tunneling No No No -Undermining/Tunneling No No No -Circular Undermining No No No -Wound/Ulcer Outcome Not Healed Not Healed Not Healed -Ulcer Cleansing Rinsed/ Rinsed/ Irrigated with Irrigated with Saline Saline -Foul Odor after Cleansing No No -Bioengineered Tissue No No -Bleeding Controlled with NA Pressure Pressure -Treatment Response Procedure Procedure Tolerated Well Tolerated Well -Debridement - Subq, 1st 20sq cm Yes Yes Pain Scale: 0-10 Numeric Is Patient Pain Free? Yes Yes Yes 05/11/25 05/18/25 10:07 09:58 Wound Center Nurse 2 #1 L Med Ankle CLUSTER -Time 10:07 09:58 -Correct Patient Yes Yes -Correct Side, Site, Position Yes Yes -Correct Procedure Yes Yes -Procedure Performed Yes Yes -Type of Procedure Debridement Debridement -Clinical Debridement Subcutaneous Subcutaneous -Tissue Removed Subcutaneous Subcutaneous -Post Debridement (cm) - Length 1.9 3.2 -Post Debridement (cm) - Width 1.9 1 -Post Debridement (cm) - Depth 0.1 0.1 -Total Square (Post) (cm) 3.61 3.2 -Area of Debridement (cm) - Length 1.9 3.2 -Area of Debridement (cm) - Width 1.9 1 -Total Square (Area) (cm) 3.61 3.2 -Tunneling No No -Undermining/Tunneling No No -Circular Undermining No No -Wound/Ulcer Outcome Not Healed Not Healed -Ulcer Cleansing Rinsed/ Irrigated with Saline -Foul Odor after Cleansing No -Bioengineered Tissue No -Bleeding Controlled with Pressure Pressure -Treatment Response Procedure Procedure Tolerated Well Tolerated Well -Debridement - Subq, 1st 20sq cm Yes Yes Pain Scale: 0-10 Numeric Is Patient Pain Free? Yes Yes WC - Nurse 3 - General Ulcer D/C NN Start: 04/20/25 08:43 Freq: Status: Active Protocol: Activity Type Activity Date Activity User E-sign Co-sign Detail Recorded Client Recorded Date Recorded By Document 04/20/25 09:33 KW [id number] 04/20/25 09:34 KW Document 04/27/25 09:24 [facility] [id number] 04/27/25 09:25 BM Document 05/04/25 09:22 BM [id number] 05/04/25 09:22 [facility] Document 05/11/25 10:40 MT [id number] 05/11/25 10:41 MT Document 05/15/25 15:13 ML [id number] 05/15/25 15:15 ML Document 05/18/25 10:11 KW [id number] 05/18/25 10:11 KW 04/20/25 04/27/25 05/04/25 09:33 09:24 09:22 Wound Care Center Nurse 3 #1 L Med Ankle CLUSTER -Ulcer Cleansing Rinsed/ Rinsed/ Irrigated with Irrigated with Saline Saline -Foul Odor after Cleansing No No -Negative Pressure Wound Therapy -Primary Dressing Applied NonAdherent NonAdherent NonAdherent Contact Layer, Contact Layer, Contact Layer, Silicone Border Silicone Border Silicone Border Foam 4x4 Foam 4x4 Foam 4x4 -Other Dressing adaptic BETADINE -Primary Dressing Covered/Secured with -Aquacel Extra -Promogran Abran Matter -Silicone Border Foam 4x4 1 1 1 LLE -Multi-Layered Wrap Application -Tubular Bandage Double Layer Double Layer Double Layer -Size of Tubigrip Used Size E Size D Size D -Size D ($) 2 2 -Size E ($) 2 -Unna- Left (Qty applied) Treatment Response Procedure Tolerated Well Pain Scale: 0-10 Numeric Is Patient Pain Free? Yes Yes Yes WC - Visit Discharge Discharge Condition Stable Stable Stable Ambulatory Status Ambulatory Ambulatory Ambulatory Transportation Private Auto Private Auto Private Auto Medication Reconcilliation completed & No provided to patient/care provider Clinical Summary of Care Provided Yes Notes: 05/11/25 05/15/25 05/18/25 10:40 15:13 10:11 Wound Care Center Nurse 3 #1 L Med Ankle CLUSTER -Ulcer Cleansing Soap and Water Soap and Water -Foul Odor after Cleansing No -Negative Pressure Wound Therapy N/A -Primary Dressing Applied Promogran Promogran Aquacel Extra, Abran Matter Abran Matter NonAdherent Contact Layer -Other Dressing unna pt own abran -Primary Dressing Covered/Secured with Dry Gauze, Secured with Tape -Aquacel Extra 1 -Promogran Abran Matter 1 1 -Silicone Border Foam 4x4 LLE -Multi-Layered Wrap Application Unna Boot - Unna Boot - Unna Boot - Left Left Left -Tubular Bandage -Size of Tubigrip Used -Size D ($) -Size E ($) -Unna- Left (Qty applied) 1 1 1 Treatment Response Pain Scale: 0-10 Numeric Is Patient Pain Free? Yes Yes Yes WC - Visit Discharge Discharge Condition Stable Stable Ambulatory Status Ambulatory Ambulatory Transportation Private Auto Private Auto Medication Reconcilliation completed & No No provided to patient/care provider Clinical Summary of Care Provided Yes Yes Notes: UNNA BOOT PLACED. PT KNOWS TO PLACE BAG OVER WHEN GETTING WET. Assessment/Plan Assessment/Plan (1) Non-pressure chronic ulcer of left calf with fat layer exposed: CODE(S): L97.222 - Non-pressure chronic ulcer of left calf with fat layer exposed (2) Venous insufficiency (chronic) (peripheral): CODE(S): I87.2 - Venous insufficiency (chronic) (peripheral) (3) Bilateral lower extremity edema: CODE(S): R60.0 - Localized edema (4) Venous stasis ulcer of ankle with fat [...] of left ankle with fat layer exposed PLAN: Plan Patient seen and evaluated Predebridement measurement 3.0 cm x 0.9 cm x 0.1 cm Ulceration site did undergo debridement as noted in the clinical panel above. Postdebridement measurement 3.2 cm x 1.0 cm x 0.1 cm. Abran to wound site, Adaptic applied to site, Suprasorb applied over this. Unna Boot compression applied to the left lower extremity. He is to continue to keep the dressing clean, dry, and intact and to utilize cast bag when showering to maintain compliance. There is increase in size of ulceration versus previous visit despite improvement in edema due to continued prolonged standing continued serous drainagepost procedure. Swab culture was obtained of the site, awaiting results. Stat Doppler for 02/16/2025 was negative for DVT. He did undergo repeat venous study 03/14/25 and underwent venous ablation on April 13. He was [...] wrap was applied for 02/16/2025, awaiting approval. Will apply for advanced wound care product, EpiFix for application. He is following with Dr. Mckee for procedure to aid in his venous insufficiency. Procedure performed 04/13/25. Recent visit with Dr. Mckee 04/26/2025. Discussed continued diet to aid in healing [...] up and care recommendations were made: Dressing: Baran to wound site, Adaptic and suprsorb to the left lower extremitywith Unna boot compression. Will continue compression stocking to right lower extremity Wash: Do not get wet left lower extremity Tissue growth optimization: Abran Offload: Unna boot compression Vascular: Does have history of positive venous insufficiency/reflux. Underwent procedure 04/13/2025 as above. Edema: Unna boot compression and elevation of the lower extremities Infection: No signs of infection Pain: May take [id number] Tylenol Extra Strength for discomfort Host factors: Chronic venous insufficiency, chronic lower extremity edema, prolonged standing/activity, advanced age complicate healing. Will return for unna boot dressing change on 05/22/2025 with nursing staff. I answered all the patient's questions. To return to the wound healing center in 1 week or call sooner if the patient has any questions or concerns. 05/18/25 1055 Cosigner Signature (if applicable): CC: ~ Signed [facility]07-24-2025 Progress note Author Merrill Burns [facility] Note Date/Time May 11, 2025 10:4 9am [facility] [address] [place] [address] Progress Note - Wound Care 05/11/25 1042 MR#: [id number] Acct: [id number] Name: WELLINGTON GONZALEZ Rep #:[id number] : 1945 80 From: Merrill machado DPM PCP: Dr. Randa Joseph, DO Status:REG RCR Location: History of Present Illness Date of Service: 05/11/25 Chief Complaint: Left medial ankle wound History [...] aspect of the left lower extremity. He underwent vascular procedure with Dr. Mckee on 04/13/25. Had recent follow-up with vascular on 04/26/2025. Continues utilizing Tubigrip compression since procedure however continues increased edemasecondary to his previous procedure. He states that despite going down the size in his Tubigrip he remains swollen. Continues to try to elevating his legs higher than what he previously had been. Still continues standing for long periods of time performing woodworking in his garage. He denies constitutional symptoms. Denies further complaints. Objective Data Objective Data Vital Signs: Vital Signs Temp Pulse Resp BP O2 Del Method 97.7 F L 66 16 142/75 H Room Air 05/11/25 09:44 05/11/25 09:44 05/11/25 09:44 05/11/25 09:44 05/04/25 08:54 Oxygen Delivery Method Room Air Physical Exam Const alert, oriented x3 and no apparent distress General Appearance: cooperative HEENT normocephalic Eyes General Eye: normal appearance of both eyes Neck General: normal visual inspection Lymph Lymphatic: no lymphadenopathy noted and no lymphedema noted Resp normal respiratory effort Cardio regular rate and regular rhythm Extremity no calf tenderness Extremity Narrative: Left lower extremity: Vascular: DP and PT pulses weakly palpable. Capillary fill time to digits is 5 seconds. Normal temperature gradient. There is absent hair growth to digits noted. Dermatological: There is a full-thickness ulceration noted to the medial aspect of the lower extremity/ankle with mixed fibro granular layer. Negative Stemmer sign left foot. There is evidence of stasis dermatitis with hyperpigmentation/hemosiderin deposition/staining of skin left lower extremity. There are varicosities noted of the lower extremity with mild lower extremity edema. There is no erythema or rubor of the left lower extremity. Does have increased edema secondary to his vascular procedure. Musculoskeletal: Muscle strength 5 of 5 age-appropriate. [...] ankle Laterality: Left Wound Grade/Stage: Cisneros stage I [...] Nurse 1 - General Ulcer Assessment Start: 04/20/25 08:43 Freq: Status: Active Protocol: LA NENA.JESUS Activity Type Activity Date Activity User E-sign Co-sign Detail Recorded Client Recorded Date Recorded By Document 04/20/25 08:43 KW [id number] 04/20/25 08:52 KW Document 04/27/25 08:53 DL [id number] 04/27/25 08:59 DL Document 05/04/25 08:54 KW [id number] 05/04/25 08:59 KW Document 05/11/25 09:44 DL [id number] 05/11/25 09:50 DL 04/20/25 04/27/25 05/04/25 08:43 08:53 08:54 - Today's Visit Information Type of service Follow-up Visit Follow-up Visit Follow-up Visit (Physician/COFFEE SHOP ATTENDANT (Physician/COFFEE SHOP ATTENDANT (Physician/COFFEE SHOP ATTENDANT ) ) ) Arrival Mode Ambulatory Ambulatory Ambulatory Transfer Assistance None Patient Identification Verified (Name & Yes Yes Yes ) Patient Requires Transmission-Based No Precautions Vital Signs Temperature (97.8 F-99.1 F) 96.4 F L 96.8 F L 96.8 F L Temperature Source Temporal Temporal Temporal Pulse Rate (60-100) 66 68 69 Pulse Location Monitor Monitor Monitor Respiratory Rate (12-18) 18 18 18 Respiratory rate source Observation Observation Observation Oxygen Delivery Method Room Air Room Air Blood Pressure (90/60-120/80) 134/63 H 139/66 H 137/83 H Blood Pressure Mean (mm Hg) 86 90 101 Source Monitor Monitor Monitor Position Semi-Fowlers Semi-Fowlers Blood Pressure Location Left Arm Right Arm History Since Last [...] Has offloadiing in place as prescribed N/A Yes N/A Experienced any changes in pain level or No No No management Left Footwear Regular Shoe Regular Shoe Regular Shoe Right Footwear Regular Shoe Regular Shoe Regular Shoe Pain Scale: 0-10 Numeric Is Patient Pain Free? Yes Yes Yes 05/11/25 09:44 WC - Today's Visit Information Type of service Follow-up Visit (Physician/COFFEE SHOP ATTENDANT ) Arrival Mode Ambulatory Transfer Assistance None Patient Identification Verified (Name & Yes ) Patient Requires Transmission-Based No Precautions Vital Signs Temperature (97.8 F-99.1 F) 97.7 F L Temperature Source Temporal Pulse Rate (60-100) 66 Pulse Location Monitor Respiratory Rate (12-18) 16 Respiratory rate source Observation Oxygen Delivery Method Blood Pressure (90/60-120/80) 142/75 H Blood Pressure Mean (mm Hg) 97 Source Monitor Position Blood Pressure Location History [...] Nurse 1 - General Ulcer Measurement Start: 04/20/25 08:43 Freq: Status: Active Protocol: Activity Type Activity Date Activity User E-sign Co-sign Detail Recorded Client Recorded Date Recorded By Document 04/20/25 08:43 KW [id number] 04/20/25 08:52 KW Document 04/27/25 08:53 DL [id number] 04/27/25 08:59 DL Document 05/04/25 08:54 KW [id number] 05/04/25 08:59 KW Document 05/11/25 09:44 DL [id number] 05/11/25 09:50 DL 04/20/25 04/27/25 05/04/25 08:43 08:53 08:54 Wound Center Nurse 1 #1 L Med Ankle CLUSTER -Current Size (cm) - Length 0.1 0.1 1.1 -Current Size (cm) - Width 0.1 0.1 1.1 -Current Size (cm) - Depth 0 0.1 0.1 -Total Square Cm 0.01 0.01 1.21 -Date of Last Picture (Recall this 04/20/25 field) -Photo Taken Yes -Exudate Amt None Present Large -Exudate Type Serosanguineous Serosanguineous -Wound Margin Indistinct, Non Distinct, Indistinct, Non -Visible Outline -Visible Attached -Granulation Amt Medium (34-66%) Large (67-100%) Large (67-100%) -Granulation Quality [place] Pale,[place] -Necrosis Amt Medium (34-66%) Small (1-33%) -Necrotic Tissue Type Adherent Slough Adherent Slough -Structure Exposed N/A -Texture (Megan-wound Skin Appearance) Assessed Localized Edema Assessed, ,Scarring Localized Edema -Moisture (Megan-wound Skin Appearance) Assessed No Abnormality Assessed,Dry/ Scaly -Color (Megan-wound Skin Appearance) Assessed, No Abnormality Assessed, Hemosiderin Erythema Staining -Temperature (Megan-wound Skin No Abnormality No Abnormality No Abnormality Appearance) (Pt Warm) (Pt Warm) (Pt Warm) -Tenderness on Palpation (Megan-wound No No No Skin Appearance) -Ulcer Cleansing Soap and Water Soap and Water Rinsed/ Irrigated with Saline -Foul Odor after Cleansing No No -Anesthetic Used 5% Lidocaine 5% Lidocaine 5% Lidocaine Gel Gel Gel Left Calf (cm) 37.5 39.3 39.5 Left Ankle (cm) 26.5 24.5 23 05/11/25 09:44 Wound Center Nurse 1 #1 L Med Ankle CLUSTER -Current Size (cm) - Length 4.6 -Current Size (cm) - Width 0.6 -Current Size (cm) - Depth 0.1 -Total Square Cm 2.76 -Date of Last Picture (Recall this field) -Photo Taken -Exudate Amt Small -Exudate Type Serosanguineous -Wound Margin Distinct, Outline Attached -Granulation Amt Large (67-100%) -Granulation Quality [place] -Necrosis Amt None Present (0 %) -Necrotic Tissue Type -Structure Exposed N/A -Texture (Megan-wound Skin Appearance) Scarring -Moisture (Megan-wound Skin Appearance) No Abnormality -Color (Megan-wound Skin Appearance) Hemosiderin Staining -Temperature (Megan-wound Skin No Abnormality Appearance) (Pt Warm) -Tenderness on Palpation (Megan-wound Skin Appearance) -Ulcer Cleansing Soap and Water -Foul Odor after Cleansing No -Anesthetic Used 5% Lidocaine Gel Left Calf (cm) 41 Left Ankle (cm) 23 WC - Nurse 2 - General Ulcer CM Notes Start: 04/20/25 08:43 Freq: Status: Active Protocol: Activity Type Activity Date Activity User E-sign Co-sign Detail Recorded Client Recorded Date Recorded By Document 04/20/25 09:11 BMF [id number] 04/20/25 09:15 BMF Edit Result 04/20/25 09:11 BMF (1) 10..25.7 04/20/25 09:28 BMF Document 04/27/25 09:07 BMF [id number] 04/27/25 09:12 BMF Document 05/04/25 09:09 BMF [id number] 05/04/25 09:13 BMF Document 05/11/25 10:07 BMF [id number] 05/11/25 10:12 BMF (1) #1 L Med Ankle CLUSTER - Post Debridement (cm) - Length 0.1 => 0.5 - Post Debridement (cm) - Width 0.1 => 0.5 - Total Square (Post) (cm) 0.01 => 0.25 - Area of Debridement (cm) - Length 0.1 => 0.5 - Area of Debridement (cm) - Width 0.1 => 0.5 - Total Square (Area) (cm) 0.01 => 0.25 04/20/25 04/27/25 05/04/25 09:11 09:07 09:09 Wound Center Nurse 2 #1 L Med Ankle CLUSTER -Time 09:11 09:07 09:09 -Correct Patient Yes Yes -Correct Side, Site, Position Yes Yes -Correct Procedure Yes Yes -Procedure Performed Yes Yes -Type of Procedure Debridement Debridement -Clinical Debridement Subcutaneous Subcutaneous -Tissue Removed Subcutaneous Subcutaneous -Post Debridement (cm) - Length 0.5 1.1 2 -Post Debridement (cm) - Width 0.5 1.1 1.6 -Post Debridement (cm) - Depth 0.1 0.1 0.1 -Total Square (Post) (cm) 0.25 1.21 3.2 -Area of Debridement (cm) - Length 0.5 1.1 2 -Area of Debridement (cm) - Width 0.5 1.1 1.6 -Total Square (Area) (cm) 0.25 1.21 3.2 -Tunneling No No No -Undermining/Tunneling No No No -Circular Undermining No No No -Wound/Ulcer Outcome Not Healed Not Healed Not Healed -Ulcer Cleansing Rinsed/ Rinsed/ Irrigated with Irrigated with Saline Saline -Foul Odor after Cleansing No No -Bioengineered Tissue No No -Bleeding Controlled with NA Pressure Pressure -Treatment Response Procedure Procedure Tolerated Well Tolerated Well -Debridement - Subq, 1st 20sq cm Yes Yes Pain Scale: 0-10 Numeric Is Patient Pain Free? Yes Yes Yes 05/11/25 10:07 Wound Center Nurse 2 #1 L Med Ankle CLUSTER -Time 10:07 -Correct Patient Yes -Correct Side, Site, Position Yes -Correct Procedure Yes -Procedure Performed Yes -Type of Procedure Debridement -Clinical Debridement Subcutaneous -Tissue Removed Subcutaneous -Post Debridement (cm) - Length 1.9 -Post Debridement (cm) - Width 1.9 -Post Debridement (cm) - Depth 0.1 -Total Square (Post) (cm) 3.61 -Area of Debridement (cm) - Length 1.9 -Area of Debridement (cm) - Width 1.9 -Total Square (Area) (cm) 3.61 -Tunneling No -Undermining/Tunneling No -Circular Undermining No -Wound/Ulcer Outcome Not Healed -Ulcer Cleansing -Foul Odor after Cleansing -Bioengineered Tissue -Bleeding Controlled with Pressure -Treatment Response Procedure Tolerated Well -Debridement - Subq, 1st 20sq cm Yes Pain Scale: 0-10 Numeric Is Patient Pain Free? Yes - Nurse 3 - General Ulcer D/C NN Start: 04/20/25 08:43 Freq: Status: Active Protocol: Activity Type Activity Date Activity User E-sign Co-sign Detail Recorded Client Recorded Date Recorded By Document 04/20/25 09:33 KW [id number] 04/20/25 09:34 KW Document 04/27/25 09:24 [facility] [id number] 04/27/25 09:25 [facility] Document 05/04/25 09:22 BM [id number] 05/04/25 09:22 [facility] Document 05/11/25 10:40 MT [id number] 05/11/25 10:41 MT 04/20/25 04/27/25 05/04/25 09:33 09:24 09:22 Wound Care Center Nurse 3 #1 L Med Ankle CLUSTER -Ulcer Cleansing Rinsed/ Rinsed/ Irrigated with Irrigated with Saline Saline -Foul Odor after Cleansing No No -Negative Pressure Wound Therapy -Primary Dressing Applied NonAdherent NonAdherent NonAdherent Contact Layer, Contact Layer, Contact Layer, Silicone Border Silicone Border Silicone Border Foam 4x4 Foam 4x4 Foam 4x4 -Other Dressing adaptic BETADINE -Primary Dressing Covered/Secured with -Promogran Abran Matter -Silicone Border Foam 4x4 1 1 1 LLE -Multi-Layered Wrap Application -Tubular Bandage Double Layer Double Layer Double Layer -Size of Tubigrip Used Size E Size D Size D -Size D ($) 2 2 -Size E ($) 2 -Unna- Left (Qty applied) Treatment Response Procedure Tolerated Well Pain Scale: 0-10 Numeric Is Patient Pain Free? Yes Yes Yes - Visit Discharge Discharge Condition Stable Stable Stable Ambulatory Status Ambulatory Ambulatory Ambulatory Transportation Private Auto Private Auto Private Auto Medication Reconcilliation completed & No provided to patient/care provider Clinical Summary of Care Provided Yes Notes: 05/11/25 10:40 Wound Care Center Nurse 3 #1 L Med Ankle CLUSTER -Ulcer Cleansing Soap and Water -Foul Odor after Cleansing No -Negative Pressure Wound Therapy N/A -Primary Dressing Applied Promogran Abran Matter -Other Dressing -Primary Dressing Covered/Secured with Dry Gauze, Secured with Tape -Promogran Abran Matter 1 -Silicone Border Foam 4x4 LLE -Multi-Layered Wrap Application Unna Boot - Left -Tubular Bandage -Size of Tubigrip Used -Size D ($) -Size E ($) -Unna- Left (Qty applied) 1 Treatment Response Pain Scale: 0-10 Numeric Is Patient Pain Free? Yes WC - Visit Discharge Discharge Condition Stable Ambulatory Status Ambulatory Transportation Private Auto Medication Reconcilliation completed & No provided to patient/care provider Clinical Summary of Care Provided Yes Notes: UNNA BOOT PLACED. PT KNOWS TO PLACE BAG OVER WHEN GETTING WET. Assessment/Plan Assessment/Plan (1) Non-pressure chronic ulcer of left calf with fat layer exposed: CODE(S): L97.222 - Non-pressure chronic ulcer of left calf with fat layer exposed (2) Venous insufficiency (chronic) (peripheral): CODE(S): I87.2 - Venous insufficiency (chronic) (peripheral) (3) Bilateral lower extremity edema: CODE(S): R60.0 - Localized edema (4) Venous stasis ulcer of ankle with fat [...] of left ankle with fat layer exposed PLAN: Plan Patient seen and evaluated Predebridement measurement 1.8 cm x 1.8 cm x 0.1 cm Ulceration site did undergo debridement as noted in the clinical panel above. Postdebridement measurement 1.9 cm x 1.9 cm x 0.1 cm. Abran to wound site, Adaptic applied to site. Unna Boot compression applied to the left lower extremity. He is to continue to keep the dressing clean, dry, and intact and toutilize cast bag when showering to maintain compliance. There is some increase in size of ulceration versus previous visit due to continued increased lower extremity swelling and continued serous drainage post procedure. Stat Doppler for 02/16/2025 was negative for DVT. He did undergo repeat venous study 03/14/25 and underwent venous ablation on April 13. He was [...] to aid in his venous insufficiency. Procedure performed 04/13/25. Recent visit with Dr. Mckee 04/26/2025. Discussed continued diet to aid in healing [...] care recommendations were made: Dressing: Abran to wound site, Adaptic to the left lower extremity with Unna boot compression. Will continue compression stocking to right lower extremity Wash: Do not get wet left lower extremity Tissue growth optimization: Abran Offload: Unna boot compression Vascular: Does have history of positive venous insufficiency/reflux. Underwent procedure 04/13/2025 as above. Edema: Unna boot compression and elevation of the lower extremities Infection: No signs of infection Pain: May take [id number] Tylenol Extra Strength for discomfort Host factors: Chronic venous insufficiency, chronic lower extremity edema, prolonged standing/activity, advanced age complicate healing. I answered all the patient's questions. To return to the wound healing center in 1 week or call sooner if the patient has any questions or concerns. 05/11/25 1049 <Electronically signed by Merrill Burns DPM> Cosigner Signature (if applicable): CC: ~ Signed [facility] Work Phone: [phone] Progress note [facility] [address] [place] [address] Progress Note - Wound Care 05/11/25 1042 MR#: [id number] Acct: [id number] Name: WELLINGTON GONZALEZ Rep #:[id number] : 1945 80 From: Merrill machado DPM PCP: Dr. Randa Joseph, DO Status:REG RCR Location: History of Present Illness Date of Service: 05/11/25 Chief Complaint: Left medial ankle wound History [...] aspect of the left lower extremity. He underwent vascular procedure with Dr. Mckee on 04/13/25. Had recent follow-up with vascular on 04/26/2025. Continues utilizing Tubigrip compression since procedure however continues increased edemasecondary to his previous procedure. He states that despite going down the size in his Tubigrip he remains swollen. Continues to try to elevating his legs higher than what he previously had been. Still continuesstanding for long periods of time performing woodworking in his garage. He denies constitutional symptoms. Denies further complaints. Objective Data Objective Data Vital Signs: Vital Signs Temp Pulse Resp BP O2 Del Method 97.7 F L 66 16 142/75 H Room Air 05/11/25 09:44 05/11/25 09:44 05/11/25 09:44 05/11/25 09:44 05/04/25 08:54 Oxygen Delivery Method Room Air Physical Exam Const alert, oriented x3 and no apparent distress General Appearance: cooperative HEENT normocephalic Eyes General Eye: normal appearance of both eyes Neck General: normal visual inspection Lymph Lymphatic: no lymphadenopathy noted and no lymphedema noted Resp normal respiratory effort Cardio regular rate and regular rhythm Extremity no calf tenderness Extremity Narrative: Left lower extremity: Vascular: DP and PT pulses weakly palpable. Capillary fill time to digits is 5 seconds. Normal temperature gradient. There is absent hair growth to digits noted. Dermatological: There is a full-thickness ulceration noted to the medial aspect of the lower extremity/ankle with mixed fibro granular layer. Negative Stemmer sign left foot. There is evidence of stasis dermatitis with hyperpigmentation/hemosiderin deposition/staining of skin left lower extremity. There are varicosities noted of the lower extremity with mild lower extremity edema. There is no erythema or rubor of the left lower extremity. Does have increased edema secondary to his vascular procedure. Musculoskeletal: Muscle strength 5 of 5 age-appropriate. [...] ankle Laterality: Left Wound Grade/Stage: Cisneros stage I [...] Nurse 1 - General Ulcer Assessment Start: 04/20/25 08:43 Freq: Status: Active Protocol: LA NENAElevate DigitalMyra Activity Type Activity Date Activity User E-sign Co-sign Detail Recorded Client Recorded Date Recorded By Document 04/20/25 08:43 KW [id number] 04/20/25 08:52 KW Document 04/27/25 08:53 DL [id number] 04/27/25 08:59 DL Document 05/04/25 08:54 KW [id number] 05/04/25 08:59 KW Document 05/11/25 09:44 DL [id number] 05/11/25 09:50 DL 04/20/25 04/27/25 05/04/25 08:43 08:53 08:54 - Today's Visit Information Type of service Follow-up Visit Follow-up Visit Follow-up Visit (Physician/COFFEE SHOP ATTENDANT (Physician/COFFEE SHOP ATTENDANT (Physician/COFFEE SHOP ATTENDANT ) ) ) Arrival Mode Ambulatory Ambulatory Ambulatory Transfer Assistance None Patient Identification Verified (Name & Yes Yes Yes ) Patient Requires Transmission-Based No Precautions Vital Signs Temperature (97.8 F-99.1 F) 96.4 F L 96.8 F L 96.8 F L Temperature Source Temporal Temporal Temporal Pulse Rate (60-100) 66 68 69 Pulse Location Monitor Monitor Monitor Respiratory Rate (12-18) 18 18 18 Respiratory rate source Observation Observation Observation Oxygen Delivery Method Room Air Room Air Blood Pressure (90/60-120/80) 134/63 H 139/66 H 137/83 H Blood Pressure Mean (mm Hg) 86 90 101 Source Monitor Monitor Monitor Position Semi-Fowlers Semi-Fowlers Blood Pressure Location Left Arm Right Arm History Since Last [...] Has offloadiing in place as prescribed N/A Yes N/A Experienced any changes in pain level or No No No management Left Footwear Regular Shoe Regular Shoe Regular Shoe Right Footwear Regular Shoe Regular Shoe Regular Shoe Pain Scale: 0-10 Numeric Is Patient Pain Free? Yes Yes Yes 05/11/25 09:44 WC - Today's Visit Information Type of service Follow-up Visit (Physician/COFFEE SHOP ATTENDANT ) Arrival Mode Ambulatory Transfer Assistance None Patient Identification Verified (Name & Yes ) Patient Requires Transmission-Based No Precautions Vital Signs Temperature (97.8 F-99.1 F) 97.7 F L Temperature Source Temporal Pulse Rate (60-100) 66 Pulse Location Monitor Respiratory Rate (12-18) 16 Respiratory rate source Observation Oxygen Delivery Method Blood Pressure (90/60-120/80) 142/75 H Blood Pressure Mean (mm Hg) 97 Source Monitor Position Blood Pressure Location History [...] Nurse 1 - General Ulcer Measurement Start: 04/20/25 08:43 Freq: Status: Active Protocol: Activity Type Activity Date Activity User E-sign Co-sign Detail Recorded Client Recorded Date Recorded By Document 04/20/25 08:43 KW [id number] 04/20/25 08:52 KW Document 04/27/25 08:53 DL [id number] 04/27/25 08:59 DL Document 05/04/25 08:54 KW [id number] 05/04/25 08:59 KW Document 05/11/25 09:44 DL [id number] 05/11/25 09:50 DL 04/20/25 04/27/25 05/04/25 08:43 08:53 08:54 Wound Center Nurse 1 #1 L Med Ankle CLUSTER -Current Size (cm) - Length 0.1 0.1 1.1 -Current Size (cm) - Width 0.1 0.1 1.1 -Current Size (cm) - Depth 0 0.1 0.1 -Total Square Cm 0.01 0.01 1.21 -Date of Last Picture (Recall this 04/20/25 field) -Photo Taken Yes -Exudate Amt None Present Large -Exudate Type Serosanguineous Serosanguineous -Wound Margin Indistinct, Non Distinct, Indistinct, Non -Visible Outline -Visible Attached -Granulation Amt Medium (34-66%) Large (67-100%) Large (67-100%) -Granulation Quality [place] Pale,[place] -Necrosis Amt Medium (34-66%) Small (1-33%) -Necrotic Tissue Type Adherent Slough Adherent Slough -Structure Exposed N/A -Texture (Megan-wound Skin Appearance) Assessed Localized Edema Assessed, ,Scarring Localized Edema -Moisture (Megan-wound Skin Appearance) Assessed No Abnormality Assessed,Dry/ Scaly -Color (Megan-wound Skin Appearance) Assessed, No Abnormality Assessed, Hemosiderin Erythema Staining -Temperature (Megan-wound Skin No Abnormality No Abnormality No Abnormality Appearance) (Pt Warm) (Pt Warm) (Pt Warm) -Tenderness on Palpation (Megan-wound No No No Skin Appearance) -Ulcer Cleansing Soap and Water Soap and Water Rinsed/ Irrigated with Saline -Foul Odor after Cleansing No No -Anesthetic Used 5% Lidocaine 5% Lidocaine 5% Lidocaine Gel Gel Gel Left Calf (cm) 37.5 39.3 39.5 Left Ankle (cm) 26.5 24.5 23 05/11/25 09:44 Wound Center Nurse 1 #1 L Med Ankle CLUSTER -Current Size (cm) - Length 4.6 -Current Size (cm) - Width 0.6 -Current Size (cm) - Depth 0.1 -Total Square Cm 2.76 -Date of Last Picture (Recall this field) -Photo Taken -Exudate Amt Small -Exudate Type Serosanguineous -Wound Margin Distinct, Outline Attached -Granulation Amt Large (67-100%) -Granulation Quality [place] -Necrosis Amt None Present (0 %) -Necrotic Tissue Type -Structure Exposed N/A -Texture (Megan-wound Skin Appearance) Scarring -Moisture (Megan-wound Skin Appearance) No Abnormality -Color (Megan-wound Skin Appearance) Hemosiderin Staining -Temperature (Megan-wound Skin No Abnormality Appearance) (Pt Warm) -Tenderness on Palpation (Megan-wound Skin Appearance) -Ulcer Cleansing Soap and Water -Foul Odor after Cleansing No -Anesthetic Used 5% Lidocaine Gel Left Calf (cm) 41 Left Ankle (cm) 23 WC - Nurse 2 - General Ulcer CM Notes Start: 04/20/25 08:43 Freq: Status: Active Protocol: Activity Type Activity Date Activity User E-sign Co-sign Detail Recorded Client Recorded Date Recorded By Document 04/20/25 09:11 BMF [id number] 04/20/25 09:15 BMF Edit Result 04/20/25 09:11 BMF (1) 10..25.7 04/20/25 09:28 BMF Document 04/27/25 09:07 BMF [id number] 04/27/25 09:12 BMF Document 05/04/25 09:09 BMF [id number] 05/04/25 09:13 BMF Document 05/11/25 10:07 BMF [id number] 05/11/25 10:12 BMF (1) #1 L Med Ankle CLUSTER - Post Debridement (cm) - Length 0.1 => 0.5 - Post Debridement (cm) - Width 0.1 => 0.5 - Total Square (Post) (cm) 0.01 => 0.25 - Area of Debridement (cm) - Length 0.1 => 0.5 - Area of Debridement (cm) - Width 0.1 => 0.5 - Total Square (Area) (cm) 0.01 => 0.25 04/20/25 04/27/25 05/04/25 09:11 09:07 09:09 Wound Center Nurse 2 #1 L Med Ankle CLUSTER -Time 09:11 09:07 09:09 -Correct Patient Yes Yes -Correct Side, Site, Position Yes Yes -Correct Procedure Yes Yes -Procedure Performed Yes Yes -Type of Procedure Debridement Debridement -Clinical Debridement Subcutaneous Subcutaneous -Tissue Removed Subcutaneous Subcutaneous -Post Debridement (cm) - Length 0.5 1.1 2 -Post Debridement (cm) - Width 0.5 1.1 1.6 -Post Debridement (cm) - Depth 0.1 0.1 0.1 -Total Square (Post) (cm) 0.25 1.21 3.2 -Area of Debridement (cm) - Length 0.5 1.1 2 -Area of Debridement (cm) - Width 0.5 1.1 1.6 -Total Square (Area) (cm) 0.25 1.21 3.2 -Tunneling No No No -Undermining/Tunneling No No No -Circular Undermining No No No -Wound/Ulcer Outcome Not Healed Not Healed Not Healed -Ulcer Cleansing Rinsed/ Rinsed/ Irrigated with Irrigated with Saline Saline -Foul Odor after Cleansing No No -Bioengineered Tissue No No -Bleeding Controlled with NA Pressure Pressure -Treatment Response Procedure Procedure Tolerated Well Tolerated Well -Debridement - Subq, 1st 20sq cm Yes Yes Pain Scale: 0-10 Numeric Is Patient Pain Free? Yes Yes Yes 05/11/25 10:07 Wound Center Nurse 2 #1 L Med Ankle CLUSTER -Time 10:07 -Correct Patient Yes -Correct Side, Site, Position Yes -Correct Procedure Yes -Procedure Performed Yes -Type of Procedure Debridement -Clinical Debridement Subcutaneous -Tissue Removed Subcutaneous -Post Debridement (cm) - Length 1.9 -Post Debridement (cm) - Width 1.9 -Post Debridement (cm) - Depth 0.1 -Total Square (Post) (cm) 3.61 -Area of Debridement (cm) - Length 1.9 -Area of Debridement (cm) - Width 1.9 -Total Square (Area) (cm) 3.61 -Tunneling No -Undermining/Tunneling No -Circular Undermining No -Wound/Ulcer Outcome Not Healed -Ulcer Cleansing -Foul Odor after Cleansing -Bioengineered Tissue -Bleeding Controlled with Pressure -Treatment Response Procedure Tolerated Well -Debridement - Subq, 1st 20sq cm Yes Pain Scale: 0-10 Numeric Is Patient Pain Free? Yes WC - Nurse 3 - General Ulcer D/C NN Start: 04/20/25 08:43 Freq: Status: Active Protocol: Activity Type Activity Date Activity User E-sign Co-sign Detail Recorded Client Recorded Date Recorded By Document 04/20/25 09:33 KW [id number] 04/20/25 09:34 KW Document 04/27/25 09:24 [facility] [id number] 04/27/25 09:25 [facility] Document 05/04/25 09:22 BM [id number] 05/04/25 09:22 [facility] Document 05/11/25 10:40 [place] [id number] 05/11/25 10:41 [place] 04/20/25 04/27/25 05/04/25 09:33 09:24 09:22 Wound Care Center Nurse 3 #1 L Med Ankle CLUSTER -Ulcer Cleansing Rinsed/ Rinsed/ Irrigated with Irrigated with Saline Saline -Foul Odor after Cleansing No No -Negative Pressure Wound Therapy -Primary Dressing Applied NonAdherent NonAdherent NonAdherent Contact Layer, Contact Layer, Contact Layer, Silicone Border Silicone Border Silicone Border Foam 4x4 Foam 4x4 Foam 4x4 -Other Dressing adaptic BETADINE -Primary Dressing Covered/Secured with -Promogran Abran Matter -Silicone Border Foam 4x4 1 1 1 LLE -Multi-Layered Wrap Application -Tubular Bandage Double Layer Double Layer Double Layer -Size of Tubigrip Used Size E Size D Size D -Size D ($) 2 2 -Size E ($) 2 -Unna- Left (Qty applied) Treatment Response Procedure Tolerated Well Pain Scale: 0-10 Numeric Is Patient Pain Free? Yes Yes Yes WC - Visit Discharge Discharge Condition Stable Stable Stable Ambulatory Status Ambulatory Ambulatory Ambulatory Transportation Private Auto Private Auto Private Auto Medication Reconcilliation completed & No provided to patient/care provider Clinical Summary of Care Provided Yes Notes: 05/11/25 10:40 Wound Care Center Nurse 3 #1 L Med Ankle CLUSTER -Ulcer Cleansing Soap and Water -Foul Odor after Cleansing No -Negative Pressure Wound Therapy N/A -Primary Dressing Applied Promogran Abran Matter -Other Dressing -Primary Dressing Covered/Secured with Dry Gauze, Secured with Tape -Promogran Abran Matter 1 -Silicone Border Foam 4x4 LLE -Multi-Layered Wrap Application Unna Boot - Left -Tubular Bandage -Size of Tubigrip Used -Size D ($) -Size E ($) -Unna- Left (Qty applied) 1 Treatment Response Pain Scale: 0-10 Numeric Is Patient Pain Free? Yes WC - Visit Discharge Discharge Condition Stable Ambulatory Status Ambulatory Transportation Private Auto Medication Reconcilliation completed & No provided to patient/care provider Clinical Summary of Care Provided Yes Notes: UNNA BOOT PLACED. PT KNOWS TO PLACE BAG OVER WHEN GETTING WET. Assessment/Plan Assessment/Plan (1) Non-pressure chronic ulcer of left calf with fat layer exposed: CODE(S): L97.222 - Non-pressure chronic ulcer of left calf with fat layer exposed (2) Venous insufficiency (chronic) (peripheral): CODE(S): I87.2 - Venous insufficiency (chronic) (peripheral) (3) Bilateral lower extremity edema: CODE(S): R60.0 - Localized edema (4) Venous stasis ulcer of ankle with fat [...] of left ankle with fat layer exposed PLAN: Plan Patient seen and evaluated Predebridement measurement 1.8 cm x 1.8 cm x 0.1 cm Ulceration site did undergo debridement as noted in the clinical panel above. Postdebridement measurement 1.9 cm x 1.9 cm x 0.1 cm. Abran to wound site, Adaptic applied to site. Unna Boot compression applied to the left lower extremity. He is to continue to keep the dressing clean, dry, and intactand toutilize cast bag when showering to maintain compliance. There is some increase in size of ulceration versus previous visit due to continued increased lowerextremity swelling and continued serous drainage post procedure. Stat Doppler for 02/16/2025 was negative for DVT. He did undergo repeat venous study 03/14/25 and underwent venous ablation on April 13. He was [...] to aid in his venous insufficiency. Procedure performed 04/13/25. Recent visit with Dr. Mckee 04/26/2025. Discussed continued diet to aid in healing [...] care recommendations were made: Dressing: Abran to wound site, Adaptic to the left lower extremity with Unna boot compression. Will continue compression stocking to right lower extremity Wash: Do not get wet left lower extremity Tissue growth optimization: Abran Offload: Unna boot compression Vascular: Does have history of positive venous insufficiency/reflux. Underwent procedure 04/13/2025 as above. Edema: Unna boot compression and elevation of the lower extremities Infection: No signs of infection Pain: May take [id number] Tylenol Extra Strength for discomfort Host factors: Chronic venous insufficiency, chronic lower extremity edema, prolonged standing/activity, advanced age complicate healing. I answered all the patient's questions. To return to the wound healing center in 1 week or call sooner if the patient has any questions or concerns. 05/11/25 1049 Cosigner Signature (if applicable): CC: ~ Signed [facility]07-17-2025 Progress note Author Merrill Burns [facility] Note Date/Time May 04, 2025 9:28 am [facility] [address] [place] [address] Progress Note - Wound Care 05/04/25 0924 MR#: [id number] Acct: [id number] Name: WELLINGTON GONZALEZ Rep #:[id number] : 1945 80 From: Merrill machado DPM PCP: Dr. Randa Joseph, DO Status:REG RCR Location: History of Present Illness Date of Service: 05/04/25 Chief Complaint: Left medial ankle wound History [...] aspect of the left lower extremity. He underwent vascular procedure with Dr. Mckee on 04/13/25. Had recent follow-up with vascular on 04/26/2025. Continues utilizing Tubigrip compression since procedure however has increased edema secondary to his previous procedure. He states that going down the size in his Tubigrip has helped in addition to elevating his legs higher than what he previously had been. He denies constitutional symptoms. Denies further complaints. Objective Data Objective Data Vital Signs: Vital Signs Temp Pulse Resp BP O2 Del Method 96.8 F L 69 18 137/83 H Room Air 05/04/25 08:54 05/04/25 08:54 05/04/25 08:54 05/04/25 08:54 05/04/25 08:54 Oxygen Delivery Method Room Air Physical Exam Const alert, oriented x3 and no apparent distress General Appearance: cooperative HEENT normocephalic Eyes General Eye: normal appearance of both eyes Neck General: normal visual inspection Lymph Lymphatic: no lymphadenopathy noted and no lymphedema noted Resp normal respiratory effort Cardio regular rate and regular rhythm Extremity no calf tenderness Extremity Narrative: Left lower extremity: Vascular: DP and PT pulses weakly palpable. Capillary fill time to digits is 5 seconds. Normal temperature gradient. There is absent hair growth to digits noted. Dermatological: There is a full-thickness ulceration noted to the medial aspect of the lower extremity/ankle with mixed granular layer and ongoing epithelialization. Negative Stemmer sign left foot. There is evidence of stasisdermatitis with hyperpigmentation/hemosiderin deposition/staining of skin left lower extremity. There are varicosities noted of the lower extremity with mild lower extremity edema. There is no erythema or rubor of the left lower extremity. Does have increased edema secondary to his vascular procedure. Musculoskeletal: Muscle strength 5 of 5 age-appropriate. [...] Nurse 1 - General Ulcer Assessment Start: 04/20/25 08:43 Freq: Status: Active Protocol: ANAYA Activity Type Activity Date Activity User E-sign Co-sign Detail Recorded Client Recorded Date Recorded By Document 04/20/25 08:43 KW [id number] 04/20/25 08:52 KW Document 04/27/25 08:53 DL [id number] 04/27/25 08:59 DL Document 05/04/25 08:54 KW [id number] 05/04/25 08:59 KW 04/20/25 04/27/25 05/04/25 08:43 08:53 08:54 - Today's Visit Information Type of service Follow-up Visit Follow-up Visit Follow-up Visit (Physician/COFFEE SHOP ATTENDANT (Physician/COFFEE SHOP ATTENDANT (Physician/COFFEE SHOP ATTENDANT ) ) ) Arrival Mode Ambulatory Ambulatory Ambulatory Transfer Assistance None Patient Identification Verified (Name & Yes Yes Yes ) Patient Requires Transmission-Based No Precautions Vital Signs Temperature (97.8 F-99.1 F) 96.4 F L 96.8 F L 96.8 F L Temperature Source Temporal Temporal Temporal Pulse Rate (60-100) 66 68 69 Pulse Location Monitor Monitor Monitor Respiratory Rate (12-18) 18 18 18 Respiratory rate source Observation Observation Observation Oxygen Delivery Method Room Air Room Air Blood Pressure (90/60-120/80) 134/63 H 139/66 H 137/83 H Blood Pressure Mean (mm Hg) 86 90 101 Source Monitor Monitor Monitor Position Semi-Fowlers Semi-Fowlers Blood Pressure Location Left Arm Right Arm History Since Last [...] Has offloadiing in place as prescribed N/A Yes N/A Experienced any changes in pain level or No No No management Left Footwear Regular Shoe Regular Shoe Regular Shoe Right Footwear Regular Shoe Regular Shoe Regular Shoe Pain Scale: 0-10 Numeric Is Patient Pain Free? Yes Yes Yes - Nurse 1 - General Ulcer Measurement Start: 04/20/25 08:43 Freq: Status: Active Protocol: Activity Type Activity Date Activity User E-sign Co-sign Detail Recorded Client Recorded Date Recorded By Document 04/20/25 08:43 KW [id number] 04/20/25 08:52 KW Document 04/27/25 08:53 DL [id number] 04/27/25 08:59 DL Document 05/04/25 08:54 KW [id number] 05/04/25 08:59 KW 04/20/25 04/27/25 05/04/25 08:43 08:53 08:54 Wound Center Nurse 1 #1 L Med Ankle -Current Size (cm) - Length 0.1 0.1 1.1 -Current Size (cm) - Width 0.1 0.1 1.1 -Current Size (cm) - Depth 0 0.1 0.1 -Total Square Cm 0.01 0.01 1.21 -Date of Last Picture (Recall this 04/20/25 field) -Photo Taken Yes -Exudate Amt None Present Large -Exudate Type Serosanguineous Serosanguineous -Wound Margin Indistinct, Non Distinct, Indistinct, Non -Visible Outline -Visible Attached -Granulation Amt Medium (34-66%) Large (67-100%) Large (67-100%) -Granulation Quality [place] Pale,[place] -Necrosis Amt Medium (34-66%) Small (1-33%) -Necrotic Tissue Type Adherent Slough Adherent Slough -Structure Exposed N/A -Texture (Megan-wound Skin Appearance) Assessed Localized Edema Assessed, ,Scarring Localized Edema -Moisture (Megan-wound Skin Appearance) Assessed No Abnormality Assessed,Dry/ Scaly -Color (Megan-wound Skin Appearance) Assessed, No Abnormality Assessed, Hemosiderin Erythema Staining -Temperature (Megan-wound Skin No Abnormality No Abnormality No Abnormality Appearance) (Pt Warm) (Pt Warm) (Pt Warm) -Tenderness on Palpation (Megan-wound No No No Skin Appearance) -Ulcer Cleansing Soap and Water Soap and Water Rinsed/ Irrigated with Saline -Foul Odor after Cleansing No No -Anesthetic Used 5% Lidocaine 5% Lidocaine 5% Lidocaine Gel Gel Gel Left Calf (cm) 37.5 39.3 39.5 Left Ankle (cm) 26.5 24.5 23 WC - Nurse 2 - General Ulcer CM Notes Start: 04/20/25 08:43 Freq: Status: Active Protocol: Activity Type Activity Date Activity User E-sign Co-sign Detail Recorded Client Recorded Date Recorded By Document 04/20/25 09:11 [facility] [id number] 04/20/25 09:15 BMF Edit Result 04/20/25 09:11 BMF (1) [id number] 04/20/25 09:28 BMF Document 04/27/25 09:07 BMF [id number] 04/27/25 09:12 BMF Document 05/04/25 09:09 BMF [id number] 05/04/25 09:13 BMF (1) #1 L Med Ankle - Post Debridement (cm) - Length 0.1 => 0.5 - Post Debridement (cm) - Width 0.1 => 0.5 - Total Square (Post) (cm) 0.01 => 0.25 - Area of Debridement (cm) - Length 0.1 => 0.5 - Area of Debridement (cm) - Width 0.1 => 0.5 - Total Square (Area) (cm) 0.01 => 0.25 04/20/25 04/27/25 05/04/25 09:11 09:07 09:09 Wound Center Nurse 2 #1 L Med Ankle -Time 09:11 09:07 09:09 -Correct Patient Yes Yes -Correct Side, Site, Position Yes Yes -Correct Procedure Yes Yes -Procedure Performed Yes Yes -Type of Procedure Debridement Debridement -Clinical Debridement Subcutaneous Subcutaneous -Tissue Removed Subcutaneous Subcutaneous -Post Debridement (cm) - Length 0.5 1.1 2 -Post Debridement (cm) - Width 0.5 1.1 1.6 -Post Debridement (cm) - Depth 0.1 0.1 0.1 -Total Square (Post) (cm) 0.25 1.21 3.2 -Area of Debridement (cm) - Length 0.5 1.1 2 -Area of Debridement (cm) - Width 0.5 1.1 1.6 -Total Square (Area) (cm) 0.25 1.21 3.2 -Tunneling No No No -Undermining/Tunneling No No No -Circular Undermining No No No -Wound/Ulcer Outcome Not Healed Not Healed Not Healed -Ulcer Cleansing Rinsed/ Rinsed/ Irrigated with Irrigated with Saline Saline -Foul Odor after Cleansing No No -Bioengineered Tissue No No -Bleeding Controlled with NA Pressure Pressure -Treatment Response Procedure Procedure Tolerated Well Tolerated Well -Debridement - Subq, 1st 20sq cm Yes Yes Pain Scale: 0-10 Numeric Is Patient Pain Free? Yes Yes Yes - Nurse 3 - General Ulcer D/C NN Start: 04/20/25 08:43 Freq: Status: Active Protocol: Activity Type Activity Date Activity User E-sign Co-sign Detail Recorded Client Recorded Date Recorded By Document 04/20/25 09:33 KW [id number] 04/20/25 09:34 KW Document 04/27/25 09:24 BMF [id number] 04/27/25 09:25 BM Document 05/04/25 09:22 BM [id number] 05/04/25 09:22 BMF 04/20/25 04/27/25 05/04/25 09:33 09:24 09:22 Wound Care Center Nurse 3 #1 L Med Ankle -Ulcer Cleansing Rinsed/ Rinsed/ Irrigated with Irrigated with Saline Saline -Foul Odor after Cleansing No No -Primary Dressing Applied NonAdherent NonAdherent NonAdherent Contact Layer, Contact Layer, Contact Layer, Silicone Border Silicone Border Silicone Border Foam 4x4 Foam 4x4 Foam 4x4 -Other Dressing adaptic BETADINE -Silicone Border Foam 4x4 1 1 1 LLE -Tubular Bandage Double Layer Double Layer Double Layer -Size of Tubigrip Used Size E Size D Size D -Size D ($) 2 2 -Size E ($) 2 Treatment Response Procedure [...] left calf with fat layer exposed (2) Venous insufficiency (chronic) (peripheral): CODE(S): I87.2 - Venous insufficiency (chronic) (peripheral) (3) Bilateral lower extremity edema: CODE(S): R60.0 - Localized edema (4) Venous stasis ulcer of ankle with fat [...] of left ankle with fat layer exposed PLAN: Plan Patient seen and evaluated Predebridement measurement 1.9 cm x 1.5 cm x 0.1 cm Ulceration site did undergo debridement as noted in the clinical panel above. Postdebridement measurement 2.0 cm x 1.6 cm x 0.1 cm. Betadine to wound site, Adaptic, and SAP XL dressing applied to site. Double Tubigrip compression, sizeD applied to the left lower extremity. He is to change dressing daily. There is some increase in size of ulceration versus previous visit due to increased lower extremity swelling and continued serous drainage post procedure. Stat Doppler for 02/16/2025 was negative for DVT. He did undergo repeat venous study 03/14/25 and underwent venous ablation on April 13. He was [...] to aid in his venous insufficiency. Procedure performed 04/13/25. Recent visit with Dr. Mckee 04/26/2025. Discussed continued diet to aid in healing [...] up and care recommendations were made: Dressing: Betadine to wound site, Adaptic, and [place] SAP dressing to the left lower extremity with double Tubigrip compression. Will continue compression stocking to right lower extremity Wash: Soap and water Tissue growth optimization: None Offload: Double Tubigrip Vascular: Does have history of positive venous insufficiency/reflux. Will seek vascular assistance for potential procedure. Edema: Double Tubigrip and elevation of the lower extremities Infection: No signs of infection Pain: May take [id number] Tylenol Extra Strength for discomfort Host factors: Chronic venous insufficiency, chronic lower extremity edema, prolonged standing/activity, advanced age complicate healing. I answered all the patient's questions. To return to the wound healing center in 1 weeks or call sooner if the patient has any questions or concerns. 05/04/25927 <Electronically signed by Merrill Burns DPM> Cosigner Signature (if applicable): CC: ~ Signed [facility] Work Phone: [phone] Progress note [facility] [address] [place] [address] Progress Note - Wound Care 05/04/25923 MR#: [id number] Acct: [id number] Name: WELLINGTON GONZALEZ Rep #:[id number] : 1945 80 From: Merrill machado DPM PCP: Dr. Randa Joseph, DO Status:REG RCR Location: History of Present Illness Date of Service: 05/04/25 Chief Complaint: Left medial ankle wound History [...] aspect of the left lower extremity. He underwent vascular procedure with Dr. Mckee on 04/13/25. Had recent follow-up with vascular on 04/26/2025. Continues utilizing Tubigrip compression since procedure however has increased edema secondary to hisprevious procedure. He states that going down the size in his Tubigrip has helped in addition to elevating his legs higher than what he previously had been. He denies constitutional symptoms. Denies further complaints. Objective Data Objective Data Vital Signs: Vital Signs Temp Pulse Resp BP O2 Del Method 96.8 F L 69 18 137/83 H Room Air 05/04/25 08:54 05/04/25 08:54 05/04/25 08:54 05/04/25 08:54 05/04/25 08:54 Oxygen Delivery Method Room Air Physical Exam Const alert, oriented x3 and no apparent distress General Appearance: cooperative HEENT normocephalic Eyes General Eye: normal appearance of both eyes Neck General: normal visual inspection Lymph Lymphatic: no lymphadenopathy noted and no lymphedema noted Resp normal respiratory effort Cardio regular rate and regular rhythm Extremity no calf tenderness Extremity Narrative: Left lower extremity: Vascular: DP and PT pulses weakly palpable. Capillary fill time to digits is 5 seconds. Normal temperature gradient. There is absent hair growth to digits noted. Dermatological: There is a full-thickness ulceration noted to the medial aspect of the lower extremity/ankle with mixed granular layer and ongoing epithelialization. Negative Stemmer sign left foot. There is evidence of stasisdermatitis with hyperpigmentation/hemosiderin deposition/staining of skin left lower extremity. There are varicosities noted of the lower extremity with mild lower extremityedema. There is no erythema or rubor of the left lower extremity. Does have increased edema secondary to his vascular procedure. Musculoskeletal: Muscle strength 5 of 5 age-appropriate. [...] Nurse 1 - General Ulcer Assessment Start: 04/20/25 08:43 Freq: Status: Active Protocol: ANAYA Activity Type Activity Date Activity User E-sign Co-sign Detail Recorded Client Recorded Date Recorded By Document 04/20/25 08:43 KW [id number] 04/20/25 08:52 KW Document 04/27/25 08:53 DL [id number] 04/27/25 08:59 DL Document 05/04/25 08:54 KW [id number] 05/04/25 08:59 KW 04/20/25 04/27/25 05/04/25 08:43 08:53 08:54 - Today's Visit Information Type of service Follow-up Visit Follow-up Visit Follow-up Visit (Physician/COFFEE SHOP ATTENDANT (Physician/COFFEE SHOP ATTENDANT (Physician/COFFEE SHOP ATTENDANT ) ) ) Arrival Mode Ambulatory Ambulatory Ambulatory Transfer Assistance None Patient Identification Verified (Name & Yes Yes Yes ) Patient Requires Transmission-Based No Precautions Vital Signs Temperature (97.8 F-99.1 F) 96.4 F L 96.8 F L 96.8 F L Temperature Source Temporal Temporal Temporal Pulse Rate (60-100) 66 68 69 Pulse Location Monitor Monitor Monitor Respiratory Rate (12-18) 18 18 18 Respiratory rate source Observation Observation Observation Oxygen Delivery Method Room Air Room Air Blood Pressure (90/60-120/80) 134/63 H 139/66 H 137/83 H Blood Pressure Mean (mm Hg) 86 90 101 Source Monitor Monitor Monitor Position Semi-Fowlers Semi-Fowlers Blood Pressure Location Left Arm Right Arm History Since Last [...] Has offloadiing in place as prescribed N/A Yes N/A Experienced any changes in pain level or No No No management Left Footwear Regular Shoe Regular Shoe Regular Shoe Right Footwear Regular Shoe Regular Shoe Regular Shoe Pain Scale: 0-10 Numeric Is Patient Pain Free? Yes Yes Yes WC - Nurse 1 - General Ulcer Measurement Start: 04/20/25 08:43 Freq: Status: Active Protocol: Activity Type Activity Date Activity User E-sign Co-sign Detail Recorded Client Recorded Date Recorded By Document 04/20/25 08:43 KW [id number] 04/20/25 08:52 KW Document 04/27/25 08:53 DL [id number] 04/27/25 08:59 DL Document 05/04/25 08:54 KW [id number] 05/04/25 08:59 KW 04/20/25 04/27/25 05/04/25 08:43 08:53 08:54 Wound Center Nurse 1 #1 L Med Ankle -Current Size (cm) - Length 0.1 0.1 1.1 -Current Size (cm) - Width 0.1 0.1 1.1 -Current Size (cm) - Depth 0 0.1 0.1 -Total Square Cm 0.01 0.01 1.21 -Date of Last Picture (Recall this 04/20/25 field) -Photo Taken Yes -Exudate Amt None Present Large -Exudate Type Serosanguineous Serosanguineous -Wound Margin Indistinct, Non Distinct, Indistinct, Non -Visible Outline -Visible Attached -Granulation Amt Medium (34-66%) Large (67-100%) Large (67-100%) -Granulation Quality [place] Pale,[place] -Necrosis Amt Medium (34-66%) Small (1-33%) -Necrotic Tissue Type Adherent Slough Adherent Slough -Structure Exposed N/A -Texture (Megan-wound Skin Appearance) Assessed Localized Edema Assessed, ,Scarring Localized Edema -Moisture (Megan-wound Skin Appearance) Assessed No Abnormality Assessed,Dry/ Scaly -Color (Megan-wound Skin Appearance) Assessed, No Abnormality Assessed, Hemosiderin Erythema Staining -Temperature (Megan-wound Skin No Abnormality No Abnormality No Abnormality Appearance) (Pt Warm) (Pt Warm) (Pt Warm) -Tenderness on Palpation (Megan-wound No No No Skin Appearance) -Ulcer Cleansing Soap and Water Soap and Water Rinsed/ Irrigated with Saline -Foul Odor after Cleansing No No -Anesthetic Used 5% Lidocaine 5% Lidocaine 5% Lidocaine Gel Gel Gel Left Calf (cm) 37.5 39.3 39.5 Left Ankle (cm) 26.5 24.5 23 WC - Nurse 2 - General Ulcer CM Notes Start: 04/20/25 08:43 Freq: Status: Active Protocol: Activity Type Activity Date Activity User E-sign Co-sign Detail Recorded Client Recorded Date Recorded By Document 04/20/25 09:11 BMF [id number] 04/20/25 09:15 BMF Edit Result 04/20/25 09:11 BMF (1) 10.10.25.7 04/20/25 09:28 BMF Document 04/27/25 09:07 BMF [id number] 04/27/25 09:12 BMF Document 05/04/25 09:09 BM [id number] 05/04/25 09:13 BMF (1) #1 L Med Ankle - Post Debridement (cm) - Length 0.1 => 0.5 - Post Debridement (cm) - Width 0.1 => 0.5 - Total Square (Post) (cm) 0.01 => 0.25 - Area of Debridement (cm) - Length 0.1 => 0.5 - Area of Debridement (cm) - Width 0.1 => 0.5 - Total Square (Area) (cm) 0.01 => 0.25 04/20/25 04/27/25 05/04/25 09:11 09:07 09:09 Wound Center Nurse 2 #1 L Med Ankle -Time 09:11 09:07 09:09 -Correct Patient Yes Yes -Correct Side, Site, Position Yes Yes -Correct Procedure Yes Yes -Procedure Performed Yes Yes -Type of Procedure Debridement Debridement -Clinical Debridement Subcutaneous Subcutaneous -Tissue Removed Subcutaneous Subcutaneous -Post Debridement (cm) - Length 0.5 1.1 2 -Post Debridement (cm) - Width 0.5 1.1 1.6 -Post Debridement (cm) - Depth 0.1 0.1 0.1 -Total Square (Post) (cm) 0.25 1.21 3.2 -Area of Debridement (cm) - Length 0.5 1.1 2 -Area of Debridement (cm) - Width 0.5 1.1 1.6 -Total Square (Area) (cm) 0.25 1.21 3.2 -Tunneling No No No -Undermining/Tunneling No No No -Circular Undermining No No No -Wound/Ulcer Outcome Not Healed Not Healed Not Healed -Ulcer Cleansing Rinsed/ Rinsed/ Irrigated with Irrigated with Saline Saline -Foul Odor after Cleansing No No -Bioengineered Tissue No No -Bleeding Controlled with NA Pressure Pressure -Treatment Response Procedure Procedure Tolerated Well Tolerated Well -Debridement - Subq, 1st 20sq cm Yes Yes Pain Scale: 0-10 Numeric Is Patient Pain Free? Yes Yes Yes - Nurse 3 - General Ulcer D/C NN Start: 04/20/25 08:43 Freq: Status: Active Protocol: Activity Type Activity Date Activity User E-sign Co-sign Detail Recorded Client Recorded Date Recorded By Document 04/20/25 09:33 [id number] 04/20/25 09:34 Document 04/27/25 09:24 [facility] [id number] 04/27/25 09:25 [facility] Document 05/04/25 09:22 [facility] [id number] 05/04/25 09:22 [facility] 04/20/25 04/27/25 05/04/25 09:33 09:24 09:22 Wound Care Center Nurse 3 #1 L Med Ankle -Ulcer Cleansing Rinsed/ Rinsed/ Irrigated with Irrigated with Saline Saline -Foul Odor after Cleansing No No -Primary Dressing Applied NonAdherent NonAdherent NonAdherent Contact Layer, Contact Layer, Contact Layer, Silicone Border Silicone Border Silicone Border Foam 4x4 Foam 4x4 Foam 4x4 -Other Dressing adaptic BETADINE -Silicone Border Foam 4x4 1 1 1 LLE -Tubular Bandage Double Layer Double Layer Double Layer -Size of Tubigrip Used Size E Size D Size D -Size D ($) 2 2 -Size E ($) 2 Treatment Response Procedure [...] left calf with fat layer exposed (2) Venous insufficiency (chronic) (peripheral): CODE(S): I87.2 - Venous insufficiency (chronic) (peripheral) (3) Bilateral lower extremity edema: CODE(S): R60.0 - Localized edema (4) Venous stasis ulcer of ankle with fat [...] of left ankle with fat layer exposed PLAN: Plan Patient seen and evaluated Predebridement measurement 1.9 cm x 1.5 cm x 0.1 cm Ulceration site did undergo debridement as noted in the clinical panel above. Postdebridement measurement 2.0 cm x 1.6 cm x 0.1 cm. Betadine to wound site, Adaptic, and SAP XL dressing applied to site. Double Tubigrip compression, sizeD applied to the left lower extremity. He is to change dressing daily. There is some increase in size of ulceration versus previous visit due to increased lower extremityswelling and continued serous drainage post procedure. Stat Doppler for 02/16/2025 was negative for DVT. He did undergo repeat venous study 03/14/25 and underwent venous ablation on April 13. He was [...] to aid in his venous insufficiency. Procedure performed 04/13/25. Recent visit with Dr. Mckee 04/26/2025. Discussed continued diet to aid in healing [...] up and care recommendations were made: Dressing: Betadine to wound site, Adaptic, and [place] SAP dressing to the left lower extremity with double Tubigrip compression. Will continue compression stocking to right lower extremity Wash: Soap and water Tissue growth optimization: None Offload: Double Tubigrip Vascular: Does have history of positive venous insufficiency/reflux. Will seek vascular assistance for potential procedure. Edema: Double Tubigrip and elevation of the lower extremities Infection: No signs of infection Pain: May take [id number] Tylenol Extra Strength for discomfort Host factors: Chronic venous insufficiency, chronic lower extremity edema, prolonged standing/activity, advanced age complicate healing. I answered all the patient's questions. To return to the wound healing center in 1 weeks or call sooner if the patient has any questions or concerns. 05/04/25927 Cosigner Signature (if applicable): CC: ~ Signed [facility]07-10-2025 Progress note Author Merrill Burns [facility] Note Date/Time April 27, 2025 9:33 am [facility] [address] [place] [address] Progress Note - Wound Care 04/27/2529 MR#: [id number] Acct: [id number] Name: WELLINGTON GONZALEZ Rep #:[id number] : 1945 80 From: Merrill machado DPM PCP: Dr. Randa Vamshi, DO Status:REG RCR Location: History of Present Illness Date of Service: 04/27/25 Chief Complaint: Left medial ankle wound History [...] aspect of the left lower extremity. He underwent vascular procedure with Dr. Mckee on 04/13/25. Had recent follow-up with vascular on 04/26/2025. Continues utilizing Tubigrip compression since procedure however has increased edema secondary to his previous procedure. He denies constitutional symptoms. Denies further complaints. Objective Data Objective Data Vital Signs: Vital Signs Temp Pulse Resp BP O2 Del Method 96.8 F L 68 18 139/66 H Room Air 04/27/25 08:53 04/27/25 08:53 04/27/25 08:53 04/27/25 08:53 04/20/25 08:43 Oxygen Delivery Method Room Air Physical Exam Const alert, oriented x3 and no apparent distress General Appearance: cooperative HEENT normocephalic Eyes General Eye: normal appearance of both eyes Neck General: normal visual inspection Lymph Lymphatic: no lymphadenopathy noted and no lymphedema noted Resp normal respiratory effort Cardio regular rate and regular rhythm Extremity no calf tenderness Extremity Narrative: Left lower extremity: Vascular: DP and PT pulses weakly palpable. Capillary fill time to digits is 5 seconds. Normal temperature gradient. There is absent hair growth to digits noted. Dermatological: There is a full-thickness ulceration noted to the medial aspect of the lower extremity/ankle with mixed granular layer and ongoing epithelialization. Negative Stemmer sign left foot. There is evidence of stasisdermatitis with hyperpigmentation/hemosiderin deposition/staining of skin left lower extremity. There are varicosities noted of the lower extremity with mild lower extremity edema. There is no erythema or rubor of the left lower extremity. Does have increased edema secondary to his vascular procedure. Musculoskeletal: Muscle strength 5 of 5 age-appropriate. [...] ankle Laterality: Left Wound Grade/Stage: Cisneros stage I [...] Nurse 1 - General Ulcer Assessment Start: 04/20/25 08:43 Freq: Status: Active Protocol: ANAYA Activity Type Activity Date Activity User E-sign Co-sign Detail Recorded Client Recorded Date Recorded By Document 04/20/25 08:43 KW [id number] 04/20/25 08:52 KW Document 04/27/25 08:53 DL [id number] 04/27/25 08:59 DL 04/20/25 04/27/25 08:43 08:53 - Today's Visit Information Type of service Follow-up Visit Follow-up Visit (Physician/COFFEE SHOP ATTENDANT (Physician/COFFEE SHOP ATTENDANT ) ) Arrival Mode Ambulatory Ambulatory Transfer Assistance None Patient Identification Verified (Name & Yes Yes ) Patient Requires Transmission-Based No Precautions Vital Signs Temperature (97.8 F-99.1 F) 96.4 F L 96.8 F L Temperature Source Temporal Temporal Pulse Rate (60-100) 66 68 Pulse Location Monitor Monitor Respiratory Rate (12-18) 18 18 Respiratory rate source Observation Observation Oxygen Delivery Method Room Air Blood Pressure (90/60-120/80) 134/63 H 139/66 H Blood Pressure Mean (mm Hg) 86 90 Source Monitor Monitor Position Semi-Fowlers Blood Pressure [...] Has offloadiing in place as prescribed N/A Yes Experienced any changes in pain level or No No management Left Footwear Regular Shoe Regular Shoe Right Footwear Regular Shoe Regular Shoe Pain Scale: 0-10 Numeric Is Patient Pain Free? Yes Yes - Nurse 1 - General Ulcer Measurement Start: 04/20/25 08:43 Freq: Status: Active Protocol: Activity Type Activity Date Activity User E-sign Co-sign Detail Recorded Client Recorded Date Recorded By Document 04/20/25 08:43 KW [id number] 04/20/25 08:52 KW Document 04/27/25 08:53 DL [id number] 04/27/25 08:59 DL 04/20/25 04/27/25 08:43 08:53 Wound Center Nurse 1 #1 L Med Ankle -Current Size (cm) - Length 0.1 0.1 -Current Size (cm) - Width 0.1 0.1 -Current Size (cm) - Depth 0 0.1 -Total Square Cm 0.01 0.01 -Date of Last Picture (Recall this 04/20/25 field) -Photo Taken Yes -Exudate Amt None Present -Exudate Type Serosanguineous -Wound Margin Indistinct, Non Distinct, -Visible Outline Attached -Granulation Amt Medium (34-66%) Large (67-100%) -Granulation Quality [place] Pale,[place] -Necrosis Amt Medium (34-66%) Small (1-33%) -Necrotic Tissue Type Adherent Slough Adherent Slough -Structure Exposed N/A -Texture (Megan-wound Skin Appearance) Assessed Localized Edema ,Scarring -Moisture (Megan-wound Skin Appearance) Assessed No Abnormality -Color (Megan-wound Skin Appearance) Assessed, No Abnormality Hemosiderin Staining -Temperature (Megan-wound Skin No Abnormality No Abnormality Appearance) (Pt Warm) (Pt Warm) -Tenderness on Palpation (Megan-wound No No Skin Appearance) -Ulcer Cleansing Soap and Water Soap and Water -Foul Odor after Cleansing No No -Anesthetic Used 5% Lidocaine 5% Lidocaine Gel Gel Left Calf (cm) 37.5 39.3 Left Ankle (cm) 26.5 24.5 WC - Nurse 2 - General Ulcer CM Notes Start: 04/20/25 08:43 Freq: Status: Active Protocol: Activity Type Activity Date Activity User E-sign Co-sign Detail Recorded Client Recorded Date Recorded By Document 04/20/25 09:11 BMF [id number] 04/20/25 09:15 BMF Edit Result 04/20/25 09:11 BMF (1) 10..25.7 04/20/25 09:28 BMF Document 04/27/25 09:07 BMF [id number] 04/27/25 09:12 BMF (1) #1 L Med Ankle - Post Debridement (cm) - Length 0.1 => 0.5 - Post Debridement (cm) - Width 0.1 => 0.5 - Total Square (Post) (cm) 0.01 => 0.25 - Area of Debridement (cm) - Length 0.1 => 0.5 - Area of Debridement (cm) - Width 0.1 => 0.5 - Total Square (Area) (cm) 0.01 => 0.25 04/20/25 04/27/25 09:11 09:07 Wound Center Nurse 2 #1 L Med Ankle -Time 09:11 09:07 -Correct Patient Yes -Correct Side, Site, Position Yes -Correct Procedure Yes -Procedure Performed Yes -Type of Procedure Debridement -Clinical Debridement Subcutaneous -Tissue Removed Subcutaneous -Post Debridement (cm) - Length 0.5 1.1 -Post Debridement (cm) - Width 0.5 1.1 -Post Debridement (cm) - Depth 0.1 0.1 -Total Square (Post) (cm) 0.25 1.21 -Area of Debridement (cm) - Length 0.5 1.1 -Area of Debridement (cm) - Width 0.5 1.1 -Total Square (Area) (cm) 0.25 1.21 -Tunneling No No -Undermining/Tunneling No No -Circular Undermining No No -Wound/Ulcer Outcome Not Healed Not Healed -Ulcer Cleansing Rinsed/ Irrigated with Saline -Foul Odor after Cleansing No -Bioengineered Tissue No -Bleeding Controlled with NA Pressure -Treatment Response Procedure Tolerated Well -Debridement - Subq, 1st 20sq cm Yes Pain Scale: 0-10 Numeric Is Patient Pain Free? Yes Yes - Nurse 3 - General Ulcer D/C NN Start: 04/20/25 08:43 Freq: Status: Active Protocol: Activity Type Activity Date Activity User E-sign Co-sign Detail Recorded Client Recorded Date Recorded By Document 04/20/25 09:33 [id number] 04/20/25 09:34 Document 04/27/25 09:24 [facility] [id number] 04/27/25 09:25 [facility] 04/20/25 04/27/25 09:33 09:24 Wound Care Center Nurse 3 #1 L Med Ankle -Ulcer Cleansing Rinsed/ Irrigated with Saline -Foul Odor after Cleansing No -Primary Dressing Applied NonAdherent NonAdherent Contact Layer, Contact Layer, Silicone Border Silicone Border Foam 4x4 Foam 4x4 -Other Dressing adaptic -Silicone Border Foam 4x4 1 1 LLE -Tubular Bandage Double Layer Double Layer -Size of Tubigrip Used Size E Size D -Size D ($) 2 -Size E ($) 2 Pain Scale: 0-10 Numeric Is Patient Pain [...] left calf with fat layer exposed (2) Venous insufficiency (chronic) (peripheral): CODE(S): I87.2 - Venous insufficiency (chronic) (peripheral) (3) Bilateral lower extremity edema: CODE(S): R60.0 - Localized edema (4) Venous stasis ulcer of ankle with fat [...] 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 Postdebridement measurement 1.1 cm x 1.1 cm x 0.1 cm. Adaptic and SAP XL dressing applied to site. Double Tubigrip compression, size D applied to the left lower extremity. He is to change dressing daily. There is some increase in size of ulceration versus previous visit due to increased lower extremity swelling. Will continue with Adaptic to discourage skin tears upon dressing changes. Edema is present postprocedure, will switch to lower size of his double Tubigrip compression to aid in edema control. Overall healing well following his procedure. Stat Doppler for 02/16/2025 was negative for DVT. He did undergo repeat venous study 03/14/25 and underwent venous ablation on April 13. He was [...] to aid in his venous insufficiency. Procedure performed 04/13/25. Recent visit with Dr. Mckee 04/26/2025. Discussed continued diet to aid in healing [...] up and care recommendations were made: Dressing: Adaptic and [place] SAP dressing to the left lower extremity with doubleTubigrip compression. Will continue compression stocking to right lower extremity Wash: Soap and water Tissue growth optimization: None Offload: Double Tubigrip Vascular: Does have history of positive venous insufficiency/reflux. Will seek vascular assistance for potential procedure. Edema: Double Tubigrip and elevation of the lower extremities Infection: No signs of infection Pain: May take [id number] Tylenol Extra Strength for discomfort Host factors: Chronic venous insufficiency, chronic lower extremity edema, prolonged standing/activity, advanced age complicate healing. I answered all the patient's questions. To return to the wound healing center in 1 weeks or call sooner if the patient has any questions or concerns. 04/27/25932 <Electronically signed by Merrill Burns DPM> Cosigner Signature (if applicable): CC: ~ Signed [facility] Work Phone: 1(150) 358-701807-10-2025 Progress note [facility] [address] [place] [address] Progress Note - Wound Care 04/27/25 09 MR#: [id number] Acct: [id number] Name: WELLNIGTON GONZALEZ Rep #:[id number] : 1945 80 From: Merrill machado DPM PCP: Dr. Randa Joseph, DO Status:REG RCR Location: History of Present Illness Date of Service: 04/27/25 Chief Complaint: Left medial ankle wound History [...] aspect of the left lower extremity. He underwent vascular procedure with Dr. Mckee on 04/13/25. Had recent follow-up with vascular on 04/26/2025. Continues utilizing Tubigrip compression since procedure however has increased edema secondary to hisprevious procedure. He denies constitutional symptoms. Denies further complaints. Objective Data Objective Data Vital Signs: Vital Signs Temp Pulse Resp BP O2 Del Method 96.8 F L 68 18 139/66 H Room Air 04/27/25 08:53 04/27/25 08:53 04/27/25 08:53 04/27/25 08:53 04/20/25 08:43 Oxygen Delivery Method Room Air Physical Exam Const alert, oriented x3 and no apparent distress General Appearance: cooperative HEENT normocephalic Eyes General Eye: normal appearance of both eyes Neck General: normal visual inspection Lymph Lymphatic: no lymphadenopathy noted and no lymphedema noted Resp normal respiratory effort Cardio regular rate and regular rhythm Extremity no calf tenderness Extremity Narrative: Left lower extremity: Vascular: DP and PT pulses weakly palpable. Capillary fill time to digits is 5 seconds. Normal temperature gradient. There is absent hair growth to digits noted. Dermatological: There is a full-thickness ulceration noted to the medial aspect of the lower extremity/ankle with mixed granular layer and ongoing epithelialization. Negative Stemmer sign left foot. There is evidence of stasisdermatitis with hyperpigmentation/hemosiderin deposition/staining of skin left lower extremity. There are varicosities noted of the lower extremity with mild lower extremityedema. There is no erythema or rubor of the left lower extremity. Does have increased edema secondary to his vascular procedure. Musculoskeletal: Muscle strength 5 of 5 age-appropriate. [...] ankle Laterality: Left Wound Grade/Stage: Cisneros stage I [...] Nurse 1 - General Ulcer Assessment Start: 04/20/25 08:43 Freq: Status: Active Protocol: ANAYA Activity Type Activity Date Activity User E-sign Co-sign Detail Recorded Client Recorded Date Recorded By Document 04/20/25 08:43 KW [id number] 04/20/25 08:52 KW Document 04/27/25 08:53 DL [id number] 04/27/25 08:59 DL 04/20/25 04/27/25 08:43 08:53 - Today's Visit Information Type of service Follow-up Visit Follow-up Visit (Physician/COFFEE SHOP ATTENDANT (Physician/COFFEE SHOP ATTENDANT ) ) Arrival Mode Ambulatory Ambulatory Transfer Assistance None Patient Identification Verified (Name & Yes Yes ) Patient Requires Transmission-Based No Precautions Vital Signs Temperature (97.8 F-99.1 F) 96.4 F L 96.8 F L Temperature Source Temporal Temporal Pulse Rate (60-100) 66 68 Pulse Location Monitor Monitor Respiratory Rate (12-18) 18 18 Respiratory rate source Observation Observation Oxygen Delivery Method Room Air Blood Pressure (90/60-120/80) 134/63 H 139/66 H Blood Pressure Mean (mm Hg) 86 90 Source Monitor Monitor Position Semi-Fowlers Blood Pressure [...] Has offloadiing in place as prescribed N/A Yes Experienced any changes in pain level or No No management Left Footwear Regular Shoe Regular Shoe Right Footwear Regular Shoe Regular Shoe Pain Scale: 0-10 Numeric Is Patient Pain Free? Yes Yes WC - Nurse 1 - General Ulcer Measurement Start: 04/20/25 08:43 Freq: Status: Active Protocol: Activity Type Activity Date Activity User E-sign Co-sign Detail Recorded Client Recorded Date Recorded By Document 04/20/25 08:43 KW [id number] 04/20/25 08:52 KW Document 04/27/25 08:53 DL [id number] 04/27/25 08:59 DL 04/20/25 04/27/25 08:43 08:53 Wound Center Nurse 1 #1 L Med Ankle -Current Size (cm) - Length 0.1 0.1 -Current Size (cm) - Width 0.1 0.1 -Current Size (cm) - Depth 0 0.1 -Total Square Cm 0.01 0.01 -Date of Last Picture (Recall this 04/20/25 field) -Photo Taken Yes -Exudate Amt None Present -Exudate Type Serosanguineous -Wound Margin Indistinct, Non Distinct, -Visible Outline Attached -Granulation Amt Medium (34-66%) Large (67-100%) -Granulation Quality [place] Pale,[place] -Necrosis Amt Medium (34-66%) Small (1-33%) -Necrotic Tissue Type Adherent Slough Adherent Slough -Structure Exposed N/A -Texture (Megan-wound Skin Appearance) Assessed Localized Edema ,Scarring -Moisture (Megan-wound Skin Appearance) Assessed No Abnormality -Color (Megan-wound Skin Appearance) Assessed, No Abnormality Hemosiderin Staining -Temperature (Megan-wound Skin No Abnormality No Abnormality Appearance) (Pt Warm) (Pt Warm) -Tenderness on Palpation (Megan-wound No No Skin Appearance) -Ulcer Cleansing Soap and Water Soap and Water -Foul Odor after Cleansing No No -Anesthetic Used 5% Lidocaine 5% Lidocaine Gel Gel Left Calf (cm) 37.5 39.3 Left Ankle (cm) 26.5 24.5 WC - Nurse 2 - General Ulcer CM Notes Start: 04/20/25 08:43 Freq: Status: Active Protocol: Activity Type Activity Date Activity User E-sign Co-sign Detail Recorded Client Recorded Date Recorded By Document 04/20/25 09:11 BMF [id number] 04/20/25 09:15 BMF Edit Result 04/20/25 09:11 BMF (1) 10.10.25.7 04/20/25 09:28 BMF Document 04/27/25 09:07 BMF [id number] 04/27/25 09:12 BMF (1) #1 L Med Ankle - Post Debridement (cm) - Length 0.1 => 0.5 - Post Debridement (cm) - Width 0.1 => 0.5 - Total Square (Post) (cm) 0.01 => 0.25 - Area of Debridement (cm) - Length 0.1 => 0.5 - Area of Debridement (cm) - Width 0.1 => 0.5 - Total Square (Area) (cm) 0.01 => 0.25 04/20/25 04/27/25 09:11 09:07 Wound Center Nurse 2 #1 L Med Ankle -Time 09: 09:07 -Correct Patient Yes -Correct Side, Site, Position Yes -Correct Procedure Yes -Procedure Performed Yes -Type of Procedure Debridement -Clinical Debridement Subcutaneous -Tissue Removed Subcutaneous -Post Debridement (cm) - Length 0.5 1.1 -Post Debridement (cm) - Width 0.5 1.1 -Post Debridement (cm) - Depth 0.1 0.1 -Total Square (Post) (cm) 0.25 1.21 -Area of Debridement (cm) - Length 0.5 1.1 -Area of Debridement (cm) - Width 0.5 1.1 -Total Square (Area) (cm) 0.25 1.21 -Tunneling No No -Undermining/Tunneling No No -Circular Undermining No No -Wound/Ulcer Outcome Not Healed Not Healed -Ulcer Cleansing Rinsed/ Irrigated with Saline -Foul Odor after Cleansing No -Bioengineered Tissue No -Bleeding Controlled with NA Pressure -Treatment Response Procedure Tolerated Well -Debridement - Subq, 1st 20sq cm Yes Pain Scale: 0-10 Numeric Is Patient Pain Free? Yes Yes - Nurse 3 - General Ulcer D/C NN Start: 04/20/25 08:43 Freq: Status: Active Protocol: Activity Type Activity Date Activity User E-sign Co-sign Detail Recorded Client Recorded Date Recorded By Document 04/20/25 09:33 [id number] 04/20/25 09:34 Document 04/27/25 09:24 [facility] [id number] 04/27/25 09:25 [facility] 04/20/25 04/27/25 09:33 09:24 Wound Care Center Nurse 3 #1 L Med Ankle -Ulcer Cleansing Rinsed/ Irrigated with Saline -Foul Odor after Cleansing No -Primary Dressing Applied NonAdherent NonAdherent Contact Layer, Contact Layer, Silicone Border Silicone Border Foam 4x4 Foam 4x4 -Other Dressing adaptic -Silicone Border Foam 4x4 1 1 LLE -Tubular Bandage Double Layer Double Layer -Size of Tubigrip Used Size E Size D -Size D ($) 2 -Size E ($) 2 Pain Scale: 0-10 Numeric Is Patient Pain [...] left calf with fat layer exposed (2) Venous insufficiency (chronic) (peripheral): CODE(S): I87.2 - Venous insufficiency (chronic) (peripheral) (3) Bilateral lower extremity edema: CODE(S): R60.0 - Localized edema (4) Venous stasis ulcer of ankle with fat [...] 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 Postdebridement measurement 1.1 cm x 1.1 cm x 0.1 cm. Adaptic and SAP XL dressing applied to site. Double Tubigrip compression, size D applied to the left lower extremity. He is to change dressing daily. There is some increase in size of ulceration versus previous visit due to increased lower extremityswelling. Will continue with Adaptic to discourage skin tears upon dressing changes. Edema is present postprocedure, will switch to lower size of his double Tubigrip compression to aid in edema control. Overall healing well following his procedure. Stat Doppler for 02/16/2025 was negative for DVT. He did undergo repeat venous study 03/14/25 and underwent venous ablation on April 13. He was [...] to aid in his venous insufficiency. Procedure performed 04/13/25. Recent visit with Dr. Mckee 04/26/2025. Discussed continued diet to aid in healing [...] up and care recommendations were made: Dressing: Adaptic and [place] SAP dressing to the left lower extremity with doubleTubigrip compression. Will continue compression stocking to right lower extremity Wash: Soap and water Tissue growth optimization: None Offload: Double Tubigrip Vascular: Does have history of positive venous insufficiency/reflux. Will seek vascular assistance for potential procedure. Edema: Double Tubigrip and elevation of the lower extremities Infection: No signs of infection Pain: May take [id number] Tylenol Extra Strength for discomfort Host factors: Chronic venous insufficiency, chronic lower extremity edema, prolonged standing/activity, advanced age complicate healing. I answered all the patient's questions. To return to the wound healing center in 1 weeks or call sooner if the patient has any questions or concerns. 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 April 26, 2025 10:44am Venous insufficiency (chroni c) (peripheral) chronic April 26, 2025 10:44am Bilateral lower extremity edema acut e May 18, 2025 3:11pm 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 acute May 18 3:11pm 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 May 18, 2025 3:11pm Venous insufficiency (chroni c) (peripheral) chronic May 18, 2025 3:11pm Bilateral lower extremity edema acut e June 15, 2025 9:15am Cellulitis of left lower limb acute June 15, 2025 9:15am 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 acute June 15, 2 025 9:15am 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 2024 9:15am Venous insufficiency (chroni c) (peripheral) chronic June 15 9:15am Bilateral lower extremity edema acut e July 18, 2025 11:00am Delayed wound healing acute Sep 2024 11:00am History of cholecystectomy acute July 18, 2025 11:00am History of esophagogastroduodenoscopy (EGD) September, acute July 18, 2025 11:00am History of hernia repair acute July 18, 2025 11:00am History of repair of hip fracture ac [place] July 18, 2025 11:00am History of spinal surgery acute July 18, 2025 11:00am Localized swelling of both l ower legs acute July 18, 2025 11:00am Non-pressure chronic ulcer o f ankle with fat layer exposed acute July 18, 2025 11:00am Ulcer of extremity due to ch ronic venous insufficiency acute June 212024 11:00am Venous stasis dermatitis acute July 18, 2025 11:00am Venous stasis ulcer acute Septe 2024 11:00am 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 acute June 11:00am Asthma chronic June 11:00am Celiac disease chronic July 18, 2025 11:00am GERD (gastroesophageal reflu x disease) chronic July 18, 2025 11:00am JOSHUA (obstructive sleep apnea) chroni c July 18, 2025 11:00am Osteopenia chronic June 11:00am Restless leg syndrome chronic [facility]2024 11:00am Venous hypertension, chronic , with ulcer chronic July 18, 2025 11:00am Venous insufficiency (chroni c) (peripheral) chronic July 18, 2025 11:00am Solitary pulmonary nodule acute August 01, 2025 9:37am JOSHUA (obstructive sleep apnea) chroni c August 01, 2025 9:37am Restless leg syndrome chronic Jul 9:37am Severe persistent asthma, uncomplicated chronic August 01, 2025 9:37am Acquired lymphedema of lower extremity acute August 11, 2025 12:45pm Bilateral lower extremity edema acut e August 11, 2025 12:45pm Delayed wound healing acute Jul 2024 12:45pm History of cholecystectomy acute August 11, 2025 12:45pm History of esophagogastroduodenoscopy (EGD) September, acute August 11, 2025 12:45pm History of hernia repair acute August 11, 2025 12:45pm History of repair of hip fracture ac [place] August 11, 2025 12:45pm History of spinal surgery acute August 11, 2025 12:45pm Localized swelling of both l ower legs acute August 11, 2025 12:45pm Ulcer of extremity due to ch ronic venous insufficiency acute July 12:45pm Venous stasis dermatitis acute August 11, 2025 12:45pm Venous stasis ulcer acute Octob er 2024 12:45pm 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 acute August 11, 2025 12:45pm Asthma chronic August 11, 2025 12:45pm Celiac disease chronic August 112024 12:45pm GERD (gastroesophageal reflu x disease) chronic August 11, 2025 12:45pm JOSHUA (obstructive sleep apnea) chroni c August 11, 2025 12:45pm Osteopenia chronic August 11, 2025 12:45pm Restless leg syndrome chronic Jul dahlia 2024 12:45pm Venous hypertension, chronic , with ulcer chronic August 11, 2025 12:45pm Venous insufficiency (chroni c) (peripheral) chronic August 11, 2025 12:45pm [facility] Work Phone: 1(204) 539-336907-03-2025 Progress note Author Merrill Burns [facility] Note Date/Time April 20, 2025 10:17 am [facility] [address] [place] [address] Progress Note - Wound Care 04/20/25 1009 MR#: [id number] Acct: [id number] Name: WELLINGTON GONZALEZ Rep #:[id number] : 1945 80 From: Merrill machado DPM PCP: Dr. Randa Joseph, DO Status:REG RCR Location: History of Present Illness Date of Service: 04/20/25 Chief Complaint: Left medial ankle wound History [...] aspect of the left lower extremity. He underwent vascular procedure with Dr. Mckee on 04/13/25. He has been utilizing Tubigrip compression since procedure. Reports procedure went well and will have follow-up with Dr. Mckee next week. He denies constitutional symptoms. Denies further complaints. Objective Data Objective Data Vital Signs: Vital Signs Temp Pulse Resp BP O2 Del Method 96.4 F L 66 18 134/63 H Room Air 04/20/25 08:43 04/20/25 08:43 04/20/25 08:43 04/20/25 08:43 04/20/25 08:43 Oxygen Delivery Method Room Air Physical Exam Const alert, oriented x3 and no apparent distress General Appearance: cooperative HEENT normocephalic Eyes General Eye: normal appearance of both eyes Neck General: normal visual inspection Lymph Lymphatic: no lymphadenopathy noted and no lymphedema noted Resp normal respiratory effort Cardio regular rate and regular rhythm Extremity no calf tenderness Extremity Narrative: Left lower extremity: Vascular: DP and PT pulses weakly palpable. Capillary fill time to digits is 5 seconds. Normal temperature gradient. There is absent hair growth to digits noted. Dermatological: There is a full-thickness ulceration noted to the medial aspect of the lower extremity/ankle with mixed granular layer and ongoing epithelialization. Negative Stemmer sign left foot. There is evidence of stasisdermatitis with hyperpigmentation/hemosiderin deposition/staining of skin left lower [...] Nurse 1 - General Ulcer Assessment Start: 04/20/25 08:43 Freq: Status: Active Protocol: WC.LOWEXT Activity Type Activity Date Activity User E-sign Co-sign Detail Recorded Client Recorded Date Recorded By Document 04/20/25 08:43 [id number] 04/20/25 08:52 KW 04/20/25 08:43 - Today's Visit Information Type of service Follow-up Visit (Physician/COFFEE SHOP ATTENDANT ) Arrival Mode Ambulatory Patient Identification Verified (Name & Yes ) Vital Signs Temperature (97.8 F-99.1 F) 96.4 F L Temperature Source Temporal Pulse Rate (60-100) 66 Pulse Location Monitor Respiratory Rate (12-18) 18 Respiratory rate source Observation Oxygen Delivery Method Room Air Blood Pressure (90/60-120/80) 134/63 H Blood Pressure Mean (mm Hg) 86 Source Monitor Position Semi-Fowlers Blood Pressure [...] Nurse 1 - General Ulcer Measurement Start: 04/20/25 08:43 Freq: Status: Active Protocol: Activity Type Activity Date Activity User E-sign Co-sign Detail Recorded Client Recorded Date Recorded By Document 04/20/25 08:43 KW [id number] 04/20/25 08:52 KW 04/20/25 08:43 Wound Center Nurse 1 #1 L Med Ankle -Current Size (cm) - Length 0.1 -Current Size (cm) - Width 0.1 -Current Size (cm) - Depth 0 -Total Square Cm 0.01 -Date of Last Picture (Recall this 04/20/25 field) -Exudate Type Serosanguineous -Wound Margin Indistinct, Non -Visible -Granulation Amt Medium (34-66%) -Granulation Quality [place] -Necrosis Amt Medium (34-66%) -Necrotic Tissue Type Adherent Slough -Texture (Megan-wound Skin Appearance) Assessed -Moisture (Megan-wound Skin Appearance) Assessed -Color (Megan-wound Skin Appearance) Assessed, Hemosiderin Staining -Temperature (Megan-wound Skin No Abnormality Appearance) (Pt Warm) -Tenderness on Palpation (Megan-wound No Skin Appearance) -Ulcer Cleansing Soap and Water -Foul Odor after Cleansing No -Anesthetic Used 5% Lidocaine Gel Left Calf (cm) 37.5 Left Ankle (cm) 26.5 WC - Nurse 2 - General Ulcer CM Notes Start: 04/20/25 08:43 Freq: Status: Active Protocol: Activity Type Activity Date Activity User E-sign Co-sign Detail Recorded Client Recorded Date Recorded By Document 04/20/25 09:11 BMF [id number] 04/20/25 09:15 BMF Edit Result 04/20/25 09:11 BMF (1) 10.10.25.7 04/20/25 09:28 BMF (1) #1 L Med Ankle - Post Debridement (cm) - Length 0.1 => 0.5 - Post Debridement (cm) - Width 0.1 => 0.5 - Total Square (Post) (cm) 0.01 => 0.25 - Area of Debridement (cm) - Length 0.1 => 0.5 - Area of Debridement (cm) - Width 0.1 => 0.5 - Total Square (Area) (cm) 0.01 => 0.25 04/20/25 09:11 Wound Center Nurse 2 #1 L Med Ankle -Time 09:11 -Post Debridement (cm) - Length 0.5 -Post Debridement (cm) - Width 0.5 -Post Debridement (cm) - Depth 0.1 -Total Square (Post) (cm) 0.25 -Area of Debridement (cm) - Length 0.5 -Area of Debridement (cm) - Width 0.5 -Total Square (Area) (cm) 0.25 -Tunneling No -Undermining/Tunneling No -Circular Undermining No -Wound/Ulcer Outcome Not Healed -Bleeding Controlled with NA Pain Scale: 0-10 Numeric Is Patient Pain Free? Yes - Nurse 3 - General Ulcer D/C NN Start: 04/20/25 08:43 Freq: Status: Active Protocol: Activity Type Activity Date Activity User E-sign Co-sign Detail Recorded Client Recorded Date Recorded By Document 04/20/25 09:33 [id number] 04/20/25 09:34 04/20/25 09:33 Wound Care Center Nurse 3 #1 L Med Ankle -Primary Dressing Applied NonAdherent Contact Layer, Silicone Border Foam 4x4 -Silicone Border Foam 4x4 1 LLE -Tubular Bandage Double Layer -Size of Tubigrip Used Size E -Size E ($) 2 Pain Scale: 0-10 Numeric Is Patient Pain [...] left calf with fat layer exposed (2) Venous insufficiency (chronic) (peripheral): CODE(S): I87.2 - Venous insufficiency (chronic) (peripheral) (3) Bilateral lower extremity edema: CODE(S): R60.0 - Localized edema (4) Venous stasis ulcer of ankle with fat [...] of left ankle with fat layer exposed PLAN: Plan Patient seen and evaluated Predebridement measurement 0.5 cm x 0.5 cm x 0.1 cm Ulceration site did not undergo debridement as noted in the clinical panel above. Postdebridement measurement 0.5 cm x 0.5 cm x 0.1 cm. Adaptic and SAP XL dressing applied to site. Double Tubigrip compression applied to the left lower extremity. He is to change dressing daily. There is continued reduction in size of ulceration versus previous visit with Adaptic aiding in discouraging skin tears upon dressing changes. Edema is present postprocedure. Overall healing well following his procedure. Stat Doppler for 02/16/2025 was negative for DVT. He did undergo repeat venous study 03/14/25 and underwent venous ablation on April 13. He was [...] to aid in his venous insufficiency. Procedure performed 04/13/25. He will follow with Dr. Mckee nextweek. It does appear procedure has helped improve the wound from his previous visit. Discussed continued diet to aid in healing [...] up and care recommendations were made: Dressing: Adaptic and [place] SAP dressing to the left lower extremity with doubleTubigrip compression. Will continue compression stocking to right lower extremity Wash: Soap and water Tissue growth optimization: None Offload: Double Tubigrip Vascular: Does have history of positive venous insufficiency/reflux. Will seek vascular assistance for potential procedure. Edema: Double Tubigrip and elevation of the lower extremities Infection: No signs of infection Pain: May take [id number] Tylenol Extra Strength for discomfort Host factors: Chronic venous insufficiency, chronic lower extremity edema, prolonged standing/activity, advanced age complicate healing. I answered all the patient's questions. To return to the wound healing center in 1 weeks or call sooner if the patient has any questions or concerns. 04/20/25 1017 <Electronically signed by Merrill Burns DPM> Cosigner Signature (if applicable): CC: ~ Signed [facility] Work Phone: 1(605) 748-505607-03-2025 Progress note [facility] [address] [place] [address] Progress Note - Wound Care 04/20/25 1009 MR#: [id number] Acct: [id number] Name: WELLINGTON GONZALEZ Rep #:[id number] : 1945 80 From: Merrill machado DPM PCP: Dr. Randa Joseph, DO Status:REG RCR Location: History of Present Illness Date of Service: 04/20/25 Chief Complaint: Left medial ankle wound History [...] aspect of the left lower extremity. He underwent vascular procedure with Dr. Mckee on 04/13/25. He has been utilizing Tubigrip compression since procedure. Reports procedure went well and will have follow-up with Dr. Mckee next week. He denies constitutional symptoms. Denies further complaints. Objective Data Objective Data Vital Signs: Vital Signs Temp Pulse Resp BP O2 Del Method 96.4 F L 66 18 134/63 H Room Air 04/20/25 08:43 04/20/25 08:43 04/20/25 08:43 04/20/25 08:43 04/20/25 08:43 Oxygen Delivery Method Room Air Physical Exam Const alert, oriented x3 and no apparent distress General Appearance: cooperative HEENT normocephalic Eyes General Eye: normal appearance of both eyes Neck General: normal visual inspection Lymph Lymphatic: no lymphadenopathy noted and no lymphedema noted Resp normal respiratory effort Cardio regular rate and regular rhythm Extremity no calf tenderness Extremity Narrative: Left lower extremity: Vascular: DP and PT pulses weakly palpable. Capillary fill time to digits is 5 seconds. Normal temperature gradient. There is absent hair growth to digits noted. Dermatological: There is a full-thickness ulceration noted to the medial aspect of the lower extremity/ankle with mixed granular layer and ongoing epithelialization. Negative Stemmer sign left foot. There is evidence of stasisdermatitis with hyperpigmentation/hemosiderin deposition/staining of skin left lower extremity. There are varicosities noted of the lower extremity with mild lower extremityedema. There is no erythema or rubor of [...] Nurse 1 - General Ulcer Assessment Start: 04/20/25 08:43 Freq: Status: Active Protocol: ANAYA Activity Type Activity Date Activity User E-sign Co-sign Detail Recorded Client Recorded Date Recorded By Document 04/20/25 08:43 KW [id number] 04/20/25 08:52 KW 04/20/25 08:43 WC - Today's Visit Information Type of service Follow-up Visit (Physician/COFFEE SHOP ATTENDANT ) Arrival Mode Ambulatory Patient Identification Verified (Name & Yes ) Vital Signs Temperature (97.8 F-99.1 F) 96.4 F L Temperature Source Temporal Pulse Rate (60-100) 66 Pulse Location Monitor Respiratory Rate (12-18) 18 Respiratory rate source Observation Oxygen Delivery Method Room Air Blood Pressure (90/60-120/80) 134/63 H Blood Pressure Mean (mm Hg) 86 Source Monitor Position Semi-Fowlers Blood Pressure [...] Nurse 1 - General Ulcer Measurement Start: 04/20/25 08:43 Freq: Status: Active Protocol: Activity Type Activity Date Activity User E-sign Co-sign Detail Recorded Client Recorded Date Recorded By Document 04/20/25 08:43 KW [id number] 04/20/25 08:52 KW 04/20/25 08:43 Wound Center Nurse 1 #1 L Med Ankle -Current Size (cm) - Length 0.1 -Current Size (cm) - Width 0.1 -Current Size (cm) - Depth 0 -Total Square Cm 0.01 -Date of Last Picture (Recall this 04/20/25 field) -Exudate Type Serosanguineous -Wound Margin Indistinct, Non -Visible -Granulation Amt Medium (34-66%) -Granulation Quality [place] -Necrosis Amt Medium (34-66%) -Necrotic Tissue Type Adherent Slough -Texture (Megan-wound Skin Appearance) Assessed -Moisture (Megan-wound Skin Appearance) Assessed -Color (Megan-wound Skin Appearance) Assessed, Hemosiderin Staining -Temperature (Megan-wound Skin No Abnormality Appearance) (Pt Warm) -Tenderness on Palpation (Megan-wound No Skin Appearance) -Ulcer Cleansing Soap and Water -Foul Odor after Cleansing No -Anesthetic Used 5% Lidocaine Gel Left Calf (cm) 37.5 Left Ankle (cm) 26.5 WC - Nurse 2 - General Ulcer CM Notes Start: 04/20/25 08:43 Freq: Status: Active Protocol: Activity Type Activity Date Activity User E-sign Co-sign Detail Recorded Client Recorded Date Recorded By Document 04/20/25 09:11 BMF [id number] 04/20/25 09:15 BMF Edit Result 04/20/25 09:11 BMF (1) 10..25.7 04/20/25 09:28 BMF (1) #1 L Med Ankle - Post Debridement (cm) - Length 0.1 => 0.5 - Post Debridement (cm) - Width 0.1 => 0.5 - Total Square (Post) (cm) 0.01 => 0.25 - Area of Debridement (cm) - Length 0.1 => 0.5 - Area of Debridement (cm) - Width 0.1 => 0.5 - Total Square (Area) (cm) 0.01 => 0.25 04/20/25 09:11 Wound Center Nurse 2 #1 L Med Ankle -Time 09:11 -Post Debridement (cm) - Length 0.5 -Post Debridement (cm) - Width 0.5 -Post Debridement (cm) - Depth 0.1 -Total Square (Post) (cm) 0.25 -Area of Debridement (cm) - Length 0.5 -Area of Debridement (cm) - Width 0.5 -Total Square (Area) (cm) 0.25 -Tunneling No -Undermining/Tunneling No -Circular Undermining No -Wound/Ulcer Outcome Not Healed -Bleeding Controlled with NA Pain Scale: 0-10 Numeric Is Patient Pain Free? Yes - Nurse 3 - General Ulcer D/C NN Start: 04/20/25 08:43 Freq: Status: Active Protocol: Activity Type Activity Date Activity User E-sign Co-sign Detail Recorded Client Recorded Date Recorded By Document 04/20/25 09:33 [id number] 04/20/25 09:34 DARLIN 04/20/25 09:33 Wound Care Center Nurse 3 #1 L Med Ankle -Primary Dressing Applied NonAdherent Contact Layer, Silicone Border Foam 4x4 -Silicone Border Foam 4x4 1 LLE -Tubular Bandage Double Layer -Size of Tubigrip Used Size E -Size E ($) 2 Pain Scale: 0-10 Numeric Is Patient Pain [...] left calf with fat layer exposed (2) Venous insufficiency (chronic) (peripheral): CODE(S): I87.2 - Venous insufficiency (chronic) (peripheral) (3) Bilateral lower extremity edema: CODE(S): R60.0 - Localized edema (4) Venous stasis ulcer of ankle with fat [...] of left ankle with fat layer exposed PLAN: Plan Patient seen and evaluated Predebridement measurement 0.5 cm x 0.5 cm x 0.1 cm Ulceration site did not undergo debridement as noted in the clinical panel above. Postdebridement measurement 0.5 cm x 0.5 cm x 0.1 cm. Adaptic and SAP XL dressing applied to site. Double Tubigrip compression applied to the left lower extremity. He is to change dressing daily. There is continued reduction in size of ulceration versus previous visit with Adaptic aiding in discouraging skin tears upon dressing changes. Edema is present postprocedure. Overall healing well following his procedure. Stat Doppler for 02/16/2025 was negative for DVT. He did undergo repeat venous study 03/14/25 and underwent venous ablation on April 13. He was [...] to aid in his venous insufficiency. Procedure performed 04/13/25. He will follow with Dr. Mckee nextweek. It does appear procedure has helped improve thewound from his previous visit. Discussed continued diet to aid in healing [...] up and care recommendations were made: Dressing: Adaptic and [place] SAP dressing to the left lower extremity with doubleTubigrip compression. Will continue compression stocking to right lower extremity Wash: Soap and water Tissue growth optimization: None Offload: Double Tubigrip Vascular: Does have history of positive venous insufficiency/reflux. Will seek vascular assistance for potential procedure. Edema: Double Tubigrip and elevation of the lower extremities Infection: No signs of infection Pain: May take [id number] Tylenol Extra Strength for discomfort Host factors: Chronic venous insufficiency, chronic lower extremity edema, prolonged standing/activity, advanced age complicate healing. I answered all the patient's questions. To return to the wound healing center in 1 weeks or call sooner if the patient has any questions or concerns. 04/20/25 1017 Cosigner Signature (if applicable): CC: ~ Signed [facility]06-26-2025 Procedure note [facility] [address] [place] [address] Operative Report 04/13/25 1255 MR#: [id number] Acct: [id number] Name: WELLINGTON GONZALEZ Rep #:[id number] : 1945 80 From: Murray Mckee MD PCP: Dr. Randa Joseph, DO Status:REG [facility] Location: [facility] Operative Report (Standard) Operative Information Date of Procedure: 04/13/25 Pre-Operative Diagnosis: Venous insufficiency with ulceration adjacent to the medial malleolus of the left lower extremity Post-Operative Diagnosis: Same Surgery/Procedure Performed: Left great saphenous vein chemical ablation supervisor power reactor: No Type of Anesthesia: Local and Sedation,Conscious Procedure Start Time: 09:00 Procedure Stop Time: 09:40 Select all DRAINS/GRAFTS/IMPLANTS that apply: None Estimated Blood Loss: 2 Specimen collected: No Description of surgery: HPI: Patient is a 80-year-old male with venous insufficiency and recurrent venous ulceration of theleft lower extremity. These have been refractory and recurrent despite maximal local care and vein ultrasound revealed reflux throughout the great saphenous vein. Is taken now for chemical ablation. Description of procedure: Upon obtaining informed consent and verification correct patient procedure and site the patient taken the Classifier Operator where he was positioned prepped and draped in usual sterile fashion. Timeouts performed consultation ministered with Versed and fentanyl. The great saphenous vein was evaluated with ultrasound from the saphenofemoral junction down to just above the malleolus. It was noted to be contiguous with some tortuosity and branchingbut appeared to be traversable. Skin overlying the great saphenous vein just above the malleolus was anesthetized 1% lidocaine the vessel accessed under ultrasound guidance with a micropuncture needle wire. This then exchanged for the7 Latvian sheath which was advanced over the wire without resistance. Through the 7 [place] sheath anangled Glidewire was advanced under ultrasound guidance traversing the great saphenous vein and successful navigating tortuosity and branches up to the saphenofemoral junction. The glue delivery guide was then advanced over the wire position 5 cm distal to the saphenofemoraljunction. The dilator was withdrawn and the glue delivery catheter which havingprepped for manufactures instructions was advanced through the guide and positioned 5 cm distal to the saphenofemoral junction. Glue was then injected along the treatment zone per instruction per manufacture until the entirety of the treatment zone had been traversed. The guide and catheter were then withdrawn followed by sheath removal managepressure held of the access site for5 minutes till hemostasis was observed. The common femoral veinwas interrogated with ultrasound and found to be patent and compressible with no deep vein thrombosis or glue within the deep system. The glue projected to justbelow the saphenofemoral junction remaining within the saphenous zhang. Dry sterile dressing and Farhat wrap were then applied patient was taken recovery with plan discharged to home. Surgical Findings: See above Complications Complications: No 04/13/25 1259 Cosigner Signature (if applicable): CC: Dr. Murray Mckee MD; Dr. Randa Joseph, ~ Signed [facility]06-26-2025 History and physical note Author Murray Mckee [facility] Note Date/Time April 13, 2025 8:52 am [facility] Medical Records Department [address] [place] [address] History & Physical Exam 04/13/25 0850 MR#: [id number] Acct: [id number] Name: WELLINGTON GONZALEZ Rep #:[id number] : 1945 80 From: Murray Mckee MD PCP: Dr. Randa Joseph DO Status:REG [facility] Location: [facility] HPI - General HPI Narrative WELLINGTON GONZALEZ, is a 80 M who presents with recurrent ulceration of left medial ankle with skin changes consistent with venous stasis. Duplex revealed reflux throughout the GSV. He presents for chemical ablation. [facility] Medical History Non-pressure chronic ulcer of ankle [...] denosumab 60 mg/mL subcutaneous 60 mg subcut [id number] 10/04/24 Unknown History syringe (Prolia) diclofenac potassium 50 mg tablet 50 mg PO TID PRN brynn n 10/04/24 Unknown History fluticasone 232 mcg-salmeterol 14 1 inh inhalation BID #1 ea 10/04/24 Unknown Rx mcg/actuation breath activated powdr ferrous gluconate 324 mg (37.5 mg 324 mg PO BID #60 ta bs 12/07/24 Unknown Rx iron) tablet albuterol sulfate 90 mcg/actuation 2 inh inhalation Q4 -6H PRN 03/28/25 Unknown Rx aerosol inhaler shortness of breath or wheez ing #8.5 grams donepezil 5 mg tablet 5 mg PO QHS 03/28/25 Unknown History Allergy/AdvReac Type Severity Reaction Status Date / Time gluten AdvReac Other Verified 03/28/25 10:28 Family History Father prostate cancer Surgical History History of colonoscopy (~09/24/20) History of hernia repair History of spinal surgery (~2016) History of repair of hip fracture History [...] Integumentary Integumentary: Reports other Details: ; Denies erythema Neurologic Neurologic: Denies abnormal speech, focal weakness, headache(s), loss of vision,numbness, paresthesias or sensory deficit Hematologic/Lymphatic Hematologic/Lymphatic: Denies easy bleeding, easy bruising or lymphadenopathy Vital Signs Vital Signs Vital Signs: Weight Weight: 205 lb Body Mass Index (BMI) 27.8 Physical Exam Const alert, oriented x3, no apparent distress and healthy appearing General Appearance: cooperative; Negative for combative or lethargic Orientation / Consciousness: awake Exam Limitations: no limitations HEENT Head and Scalp: normocephalic and atraumatic Eyes EOMs intact bilaterally General Eye: normal appearance of both eyes Neck full ROM General: trachea midline Resp normal respiratory effort and no use of accessory muscles Effort and Inspection: Negative for labored, stridor or audible wheezes Cardio regular rate and regular rhythm Back/Spine Cervical Spine: cervical ROM normal Extremity full ROM, normal capillary refill and no clubbing, cyanosis or edema Skin no rashes or lesions noted Neuro oriented x3, CN's II-XII intact bilaterally, no focal motor deficits and no sensory deficits noted Psych thought process normal, cooperative, affect normal, speech normal and activity/motor behavior normal Assessment & Plan Assessment/Plan (1) 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 Murray Mckee MD; Dr. Randa Joseph, ~ Signed [facility] Work Phone: 1(850) 107-866206-26-2025 History and physical note [facility] Records Department [address] [place] [address] History & Physical Exam 04/13/25 0850 MR#: [id number] Acct: [id number] Name: WELLINGTON GONZALEZ Rep #:[id number] : 1945 80 From: Murray Mckee MD PCP: Dr. Randa Joseph DO Status:REG [facility] Location: [facility] HPI - General HPI Narrative WELLINGTON GONZALEZ, is a 80 M who presents with recurrent ulceration of left medial ankle with skin changes consistent with venous stasis. Duplex revealed reflux throughout the GSV. He presents for chemical ablation. [facility] Medical History Non-pressure chronic ulcer of ankle [...] denosumab 60 mg/mL subcutaneous 60 mg subcut [id number] 10/04/24 Unknown History syringe (Prolia) diclofenac potassium 50 mg tablet 50 mg PO TID PRN brynn n 10/04/24 Unknown History fluticasone 232 mcg-salmeterol 14 1 inh inhalation BID #1 ea 10/04/24 Unknown Rx mcg/actuation breath activated powdr ferrous gluconate 324 mg (37.5 mg 324 mg PO BID #60 ta bs 12/07/24 Unknown Rx iron) tablet albuterol sulfate 90 mcg/actuation 2 inh inhalation Q4 -6H PRN 03/28/25 Unknown Rx aerosol inhaler shortness of breath or wheez ing #8.5 grams donepezil 5 mg tablet 5 mg PO QHS 06/10/25 Unknown History Allergy/AdvReac Type Severity Reaction Status Date / Time gluten AdvReac Other Verified 03/28/25 10:28 Family History Father prostate cancer Surgical History [...] bluish discoloration of hand/feet, chest pain with activity,claudication, cold extremities, cyanosis, dyspnea on exertion, erythema [...] Integumentary Integumentary: Reports other Details: ; Denies erythema Neurologic Neurologic: Denies abnormal speech, focal weakness, headache(s), loss of vision,numbness, paresthesias or sensory deficit Hematologic/Lymphatic Hematologic/Lymphatic: Denies easy bleeding, easy bruising or lymphadenopathy Vital Signs Vital Signs Vital Signs: Weight Weight: 205 lb Body Mass Index (BMI) 27.8 Physical Exam Const alert, oriented x3, no apparent distress and healthy appearing General Appearance: cooperative; Negative for combative or lethargic Orientation / Consciousness: awake Exam Limitations: no limitations HEENT Head and Scalp: normocephalic and atraumatic Eyes EOMs intact bilaterally General Eye: normal appearance of both eyes Neck full ROM General: trachea midline Resp normal respiratory effort and no use of accessory muscles Effort and Inspection: Negative for labored, stridor or audible wheezes Cardio regular rate and regular rhythm Back/Spine Cervical Spine: cervical ROM normal Extremity full ROM, normal capillary refill and no clubbing, cyanosis or edema Skin no rashes or lesions noted Neuro oriented x3, CN's II-XII intact bilaterally, no focal motor deficits and no sensory deficits noted Psych thought process normal, cooperative, affect normal, speech normal and activity/motor behavior normal Assessment & Plan Assessment/Plan (1) 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 Murray Mckee MD; Dr. Randa Joseph DO~ Signed [facility]06-26-20[facility] Progress note Author Merrill Burns [facility] Note Date/Time April 06, 2025 9:23 am [facility] [address] [place] [address] Progress Note - Wound Care 04/06/25919 MR#: [id number] Acct: [id number] Name: WELLINGTON GONZALEZ Rep #:[id number] : 1945 80 From: Merrill machado DPM PCP: Dr. Randa Joseph DO Status:REG RCR Location: History of Present Illness Date of Service: 04/06/25 Chief Complaint: Left medial ankle wound History [...] compression wrap to the left lower extremity. Continues to tolerate this well. He did return for dressing change as nurse visit this past Thursday. His swelling remains well-controlled with current compression wrap. He is awaiting vascular procedure with Dr. Mckee next week. Reports he will have to have wrap removed day before procedure. He denies constitutional symptoms. Denies further complaints. Objective Data Objective Data Vital Signs: Vital Signs Temp Pulse Resp BP O2 Del Method 97.3 F L 68 16 129/56 H Room Air 04/06/25 08:52 04/06/25 08:52 04/06/25 08:52 04/06/25 08:52 03/30/25 08:46 Oxygen Delivery Method Room Air Physical Exam Const alert, oriented x3 and no apparent distress General Appearance: cooperative HEENT normocephalic Eyes Eyes Narrative: Wears glasses General Eye: normal appearance of both eyes Lymph Lymphatic: no lymphadenopathy noted and no lymphedema noted Resp normal respiratory effort Cardio regular rate and regular rhythm Extremity no calf tenderness Extremity Narrative: Left lower extremity: Vascular: DP [...] ankle Laterality: Left Wound Grade/Stage: Cisneros stage I Type of Debridement: Excisional debridement Anesthesia Used: 5% Lidocaine Gel Depth: Down to and including healthy tissue and in the subcutaneous layer Percentage of wound debrided: 100 Instrument Used: #15 blade Tissue Removed: Fibrous, devitalized subcutaneous, biofilm, slough Severity: Fat Layer Exposed Amount of bleeding with debridement: Mild Bleeding Controlled with: Compression and gauze Patient tolerated procedure: Patient tolerated procedure well Post-Debridement Measurements and Additional Note: Post-Debridement Measurements/Treatment WC - Nurse 1 - General Ulcer Assessment Start: 03/20/25 10:41 Freq: Status: Active Protocol: LA NENA.JESUS Activity Type Activity Date Activity User E-sign Co-sign Detail Recorded Client Recorded Date Recorded By Document 03/20/25 10:42 KW [id number] 03/20/25 10:56 KW Document 03/23/25 08:44 DL [id number] 03/23/25 08:50 DL Document 03/27/25 11:02 JF [id number] 03/27/25 11:06 JF Document 03/30/25 08:46 KW [id number] 03/30/25 08:53 KW Document 04/03/25 09:27 DL [id number] 04/03/25 09:39 DL Document 04/06/25 08:52 DL [id number] 04/06/25 08:59 DL 03/20/25 03/23/25 03/27/25 10:42 08:44 11:02 [facility] Today's Visit Information Type of service Nurse-only Follow-up Visit Follow-up Visit Visit (Physician/COFFEE SHOP ATTENDANT (Physician/COFFEE SHOP ATTENDANT ) ) Arrival Mode Ambulatory Ambulatory Ambulatory Transfer Assistance None Patient Identification Verified (Name & Yes Yes Yes ) Patient Requires Transmission-Based No No Precautions Vital Signs Temperature (97.8 F-99.1 F) 97.0 F L 97.2 F L 96.7 F L Temperature Source Temporal Temporal Temporal Pulse Rate (60-100) 72 69 68 Pulse Location Monitor Monitor Monitor Respiratory Rate (12-18) 16 18 18 Respiratory rate source Observation Observation Observation Oxygen Delivery Method Room Air Blood Pressure (90/60-120/80) 127/87 H 141/73 H 120/64 Blood Pressure Mean (mm Hg) 100 95 82 Source Monitor Monitor Monitor Position Semi-Fowlers Semi-Fowlers Blood Pressure Location Left Arm Right Arm History Since Last [...] any changes in pain level or No Yes management Left Footwear Regular Shoe Regular Shoe Regular Shoe Right Footwear Regular Shoe Regular Shoe Regular Shoe Pain Scale: 0-10 Numeric Is Patient Pain Free? Yes Yes Yes 03/30/25 04/03/25 04/06/25 08:46 09:27 08:52 [facility] Today's Visit Information Type of service Follow-up Visit Follow-up Visit Follow-up Visit (Physician/COFFEE SHOP ATTENDANT (Physician/COFFEE SHOP ATTENDANT (Physician/COFFEE SHOP ATTENDANT ) ) ) Arrival Mode Ambulatory Ambulatory Ambulatory Transfer Assistance None None Patient Identification Verified (Name & Yes Yes Yes ) Patient Requires Transmission-Based No No Precautions Vital Signs Temperature (97.8 F-99.1 F) 96.1 F L 97.1 F L 97.3 F L Temperature Source Temporal Temporal Temporal Pulse Rate (60-100) 66 64 68 Pulse Location Monitor Monitor Monitor Respiratory Rate (12-18) 18 18 16 Respiratory rate source Observation Observation Observation Oxygen Delivery Method Room Air Blood Pressure (90/60-120/80) 131/72 H 123/59 H 129/56 H Blood Pressure Mean (mm Hg) 91 80 80 Source Monitor Monitor Monitor Position Semi-Fowlers Blood Pressure Location [...] Has offloadiing in place as prescribed N/A Yes Yes Experienced any changes in pain level or No No No management Left Footwear Regular Shoe Right Footwear Regular Shoe Pain Scale: 0-10 Numeric Is Patient Pain Free? Yes Yes Yes WC - Nurse 1 - General Ulcer Measurement Start: 03/20/25 10:41 Freq: Status: Active Protocol: Activity Type Activity Date Activity User E-sign Co-sign Detail Recorded Client Recorded Date Recorded By Document 03/23/25 08:44 DL [id number] 03/23/25 08:50 DL Document 03/30/25 08:46 KW [id number] 03/30/25 08:53 KW Document 04/03/25 09:27 DL [id number] 04/03/25 09:39 DL Document 04/06/25 08:52 DL [id number] 04/06/25 08:59 DL 03/23/25 03/30/25 04/03/25 08:44 08:46 09:27 Wound Center Nurse 1 #1 L Med Ankle -Current Size (cm) - Length 2.5 1 -Current Size (cm) - Width 1 0.5 -Current Size (cm) - Depth 0.1 0.1 -Total Square Cm 2.5 0.5 -Date of Last Picture (Recall this 03/30/25 field) -Photo Taken Yes -Exudate Amt Small Medium Medium -Exudate Type Serosanguineous Serosanguineous Serosanguineous -Wound Margin Indistinct, Non Distinct, Distinct, -Visible Outline Outline Attached Attached -Granulation Amt Small (1-33%) Large (67-100%) Small (1-33%) -Granulation Quality [place] -Necrosis Amt Medium (34-66%) Small (1-33%) Small (1-33%) -Necrotic Tissue Type Adherent Slough Adherent Slough Adherent Slough -Structure Exposed N/A N/A -Texture (Megan-wound Skin Appearance) Scarring No Abnormality Scarring -Moisture (Megan-wound Skin Appearance) No Abnormality Assessed,Dry/ No Abnormality Scaly -Color (Megan-wound Skin Appearance) No Abnormality Assessed, No Abnormality Hemosiderin Staining -Temperature (Megan-wound Skin No Abnormality No Abnormality No Abnormality Appearance) (Pt Warm) (Pt Warm) (Pt Warm) -Tenderness on Palpation (Megan-wound No No No Skin Appearance) -Ulcer Cleansing Soap and Water Soap and Water Soap and Water -Foul Odor after Cleansing No No -Anesthetic Used 5% Lidocaine 5% Lidocaine Gel Gel Left Calf (cm) 32.5 34.5 Left Ankle (cm) 21.5 21 04/06/25 08:52 Wound Center Nurse 1 #1 L Med Ankle -Current Size (cm) - Length 0.3 -Current Size (cm) - Width 0.3 -Current Size (cm) - Depth 0.1 -Total Square Cm 0.09 -Date of Last Picture (Recall this field) -Photo Taken Yes -Exudate Amt Small -Exudate Type -Wound Margin Thickened -Granulation Amt Small (1-33%) -Granulation Quality [place] -Necrosis Amt Medium (34-66%) -Necrotic Tissue Type Adherent Slough -Structure Exposed N/A -Texture (Megan-wound Skin Appearance) Scarring -Moisture (Megan-wound Skin Appearance) Dry/Scaly -Color (Megan-wound Skin Appearance) Hemosiderin Staining -Temperature (Megan-wound Skin No Abnormality Appearance) (Pt Warm) -Tenderness on Palpation (Megan-wound Skin Appearance) -Ulcer Cleansing Soap and Water -Foul Odor after Cleansing No -Anesthetic Used 5% Lidocaine Gel Left Calf (cm) Left Ankle (cm) WC - Nurse 2 - General Ulcer CM Notes Start: 03/20/25 10:41 Freq: Status: Active Protocol: Activity Type Activity Date Activity User E-sign Co-sign Detail Recorded Client Recorded Date Recorded By Document 03/23/25 09:09 [facility] [id number] 03/23/25 09:19 [facility] Document 03/30/25 09:23 [facility] [id number] 03/30/25 09:26 [facility] Document 04/06/25 09:14 [facility] [id number] 04/06/25 09:19 [facility] 03/23/25 03/30/25 04/06/25 09:09 09:23 09:14 Wound Center Nurse 2 #1 L Med Ankle -Time 09:09 09:23 09:14 -Correct Patient Yes Yes Yes -Correct Side, Site, Position Yes Yes Yes -Correct Procedure Yes Yes Yes -Procedure Performed Yes Yes Yes -Type of Procedure Debridement Debridement Debridement -Clinical Debridement Subcutaneous Subcutaneous Subcutaneous -Tissue Removed Subcutaneous Subcutaneous Subcutaneous -Post Debridement (cm) - Length 2.4 1.6 1.8 -Post Debridement (cm) - Width 0.7 0.9 0.5 -Post Debridement (cm) - Depth 0.1 0.1 0.1 -Total Square (Post) (cm) 1.68 1.44 0.90 -Area of Debridement (cm) - Length 2.4 1.6 1.8 -Area of Debridement (cm) - Width 0.7 0.9 0.5 -Total Square (Area) (cm) 1.68 1.44 0.90 -Tunneling No No No -Undermining/Tunneling No No [...] 3 - General Ulcer D/C NN Start: 03/20/25 10:41 Freq: Status: Active Protocol: Activity Type Activity Date Activity User E-sign Co-sign Detail Recorded Client Recorded Date Recorded By Document 03/20/25 10:42 KW [id number] 03/20/25 10:56 KW Document 03/23/25 09:30 DL [id number] 03/23/25 09:31 DL Document 03/27/25 11:02 JF [id number] 03/27/25 11:06 JF Document 03/30/25 09:42 KW [id number] 03/30/25 09:43 KW Document 04/03/25 09:27 DL [id number] 04/03/25 09:39 DL 03/20/25 03/23/25 03/27/25 10:42 09:30 11:02 Pain Scale: 0-10 Numeric Is Patient Pain Free? Yes Yes Yes Wound Care Center Nurse 3 #1 L Med Ankle -Ulcer Cleansing Soap and Water Rinsed/ Irrigated with Saline -Foul Odor after Cleansing No -Primary Dressing Applied NonAdherent Contact Layer -Other Dressing abran with moist abran adaptic -Primary Dressing Covered/Secured with Dry Gauze Dry Gauze -Other Covering padding to ant ankle -Wound Comment(s) pad around top of foot for comfort LLE -Lotion applied to leg before Yes compression wrap -Multi-Layered Wrap Application Multi-Layer Multi-Layer Multi-Layer Comp - Left ($) Comp - Left ($) Comp - Left ($) -Multi-Layer Compression Left (Qty 1 1 1 applied) Treatment Response Procedure Tolerated Well WC - Visit Discharge Discharge Condition Stable Stable Ambulatory Status Ambulatory Ambulatory Transportation Private Auto Private Auto Medication Reconcilliation completed & Yes provided to patient/care provider Clinical Summary of Care Provided Yes 03/30/25 04/03/25 09:42 09:27 Pain Scale: 0-10 Numeric Is Patient Pain Free? Yes Yes Wound Care Center Nurse 3 #1 L Med Ankle -Ulcer Cleansing Soap and Water -Foul Odor after Cleansing No -Primary Dressing Applied NonAdherent NonAdherent Contact Layer Contact Layer -Other Dressing pt own abran Abran topped with adaptic -Primary Dressing Covered/Secured with Dry Gauze Dry Gauze & Roll Gauze, Secured with Tape -Other Covering -Wound Comment(s) LLE -Lotion applied to leg before compression wrap -Multi-Layered Wrap Application Multi-Layer Multi-Layer Comp - Left ($) Comp - Left ($) -Multi-Layer Compression Left (Qty 1 1 applied) Treatment Response Procedure Tolerated Well WC - Visit Discharge Discharge Condition Stable Stable Ambulatory Status Ambulatory Ambulatory Transportation Private Auto Private Auto Medication Reconcilliation completed & No provided to patient/care provider Clinical Summary of Care Provided Yes Assessment/Plan Assessment/Plan (1) Non-pressure chronic ulcer of left calf with fat layer exposed: CODE(S): L97.222 - Non-pressure chronic ulcer of left calf with fat layer exposed (2) Venous insufficiency (chronic) (peripheral): CODE(S): I87.2 - Venous insufficiency (chronic) (peripheral) (3) Venous stasis ulcer of ankle with fat [...] L97.322 - 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 Postdebridement measurement 1.8 cm x 0.5 cm x 0.1 cm. Abran was applied to thewound bed followed by Adaptic and 3M compression wrap to left lower extremity. He was instructed to keep dressings clean, dry, and intact to the left lower extremity. There is continued reduction in size of ulceration versus previous visit with Adaptic aiding in discouraging skin tears upon dressing changes. Edema remains well-controlled with current compression therapy. Stat Doppler for 02/16/2025 [...] his venous insufficiency. Procedure scheduled for 04/13/25. He will have 3M wrap removed the day before procedure and will utilize Tubigrip compression for the remainderof the day. Discussed continued diet to aid in healing [...] No signs of infection Pain: May take [id number] Tylenol Extra Strength for discomfort Host factors: Chronic venous insufficiency, chronic lower extremity edema, prolonged standing/activity, advanced age complicate healing. Discussed returning next 04/12/2025 for removal of the 3M wrap prior to this procedure. He will then return with me the following week for continuedwound care. I answered all the patient's questions. To return to the wound healing center in 2 weeks or call sooner if the patient has any questions or concerns. 04/06/25922 <Electronically signed by Merrill Burns DPM> Cosigner Signature (if applicable): CC: ~ Signed [facility] Work Phone: [phone]) 927-854206-19-2025 Progress note [facility] [address] [place] [address] Progress Note - Wound Care 04/06/25 09 MR#: [id number] Acct: [id number] Name: WELLINGTON GONZALEZ Rep #:[id number] : 1945 80 From: Merrill machado DPM PCP: Dr. Randa Joseph, DO Status:REG RCR Location: History of Present Illness Date of Service: 04/06/25 Chief Complaint: Left medial ankle wound History [...] chronic venous insufficiency, history of DVT, obesity, JSOHUA, iron deficient anemia, delayed wound healing,and asthma. [...] compression wrap to the left lower extremity. Continues to tolerate this well. He did return for dressing change as nurse visit this past Thursday. His swelling remains well-controlled with current compression wrap. He is awaiting vascular procedurewith Dr. Mkcee next week. Reports he will have to have wrap removed day before procedure. He denies constitutional symptoms. Denies further complaints. Objective Data Objective Data Vital Signs: Vital Signs Temp Pulse Resp BP O2 Del Method 97.3 F L 68 16 129/56 H Room Air 04/06/25 08:52 04/06/25 08:52 04/06/25 08:52 04/06/25 08:52 03/30/25 08:46 Oxygen Delivery Method Room Air Physical Exam Const alert, oriented x3 and no apparent distress General Appearance: cooperative HEENT normocephalic Eyes Eyes Narrative: Wears glasses General Eye: normal appearance of both eyes Lymph Lymphatic: no lymphadenopathy noted and no lymphedema noted Resp normal respiratory effort Cardio regular rate and regular rhythm Extremity no calf tenderness Extremity Narrative: Left lower extremity: Vascular: DP [...] ankle Laterality: Left Wound Grade/Stage: Cisneros stage I Type of Debridement: Excisional debridement Anesthesia Used: 5% Lidocaine Gel Depth: Down to and including healthy tissue and in the subcutaneous layer Percentage of wound debrided: 100 Instrument Used: #15 blade Tissue Removed: Fibrous, devitalized subcutaneous, biofilm, slough Severity: Fat Layer Exposed Amount of bleeding with debridement: Mild Bleeding Controlled with: Compression and gauze Patient tolerated procedure: Patient tolerated procedure well Post-Debridement Measurements and Additional Note: Post-Debridement Measurements/Treatment WC - Nurse 1 - General Ulcer Assessment Start: 03/20/25 10:41 Freq: Status: Active Protocol: LOWSANJANAT Activity Type Activity Date Activity User E-sign Co-sign Detail Recorded Client Recorded Date Recorded By Document 03/20/25 10:42 KW [id number] 03/20/25 10:56 KW Document 03/23/25 08:44 DL [id number] 03/23/25 08:50 DL Document 03/27/25 11:02 JF [id number] 03/27/25 11:06 JF Document 03/30/25 08:46 KW [id number] 03/30/25 08:53 KW Document 04/03/25 09:27 DL [id number] 04/03/25 09:39 DL Document 04/06/25 08:52 DL [id number] 04/06/25 08:59 DL 03/20/25 03/23/25 03/27/25 10:42 08:44 11:02 WC - Today's Visit Information Type of service Nurse-only Follow-up Visit Follow-up Visit Visit (Physician/COFFEE SHOP ATTENDANT (Physician/COFFEE SHOP ATTENDANT ) ) Arrival Mode Ambulatory Ambulatory Ambulatory Transfer Assistance None Patient Identification Verified (Name & Yes Yes Yes ) Patient Requires Transmission-Based No No Precautions Vital Signs Temperature (97.8 F-99.1 F) 97.0 F L 97.2 F L 96.7 F L Temperature Source Temporal Temporal Temporal Pulse Rate (60-100) 72 69 68 Pulse Location Monitor Monitor Monitor Respiratory Rate (12-18) 16 18 18 Respiratory rate source Observation Observation Observation Oxygen Delivery Method Room Air Blood Pressure (90/60-120/80) 127/87 H 141/73 H 120/64 Blood Pressure Mean (mm Hg) 100 95 82 Source Monitor Monitor Monitor Position Semi-Fowlers Semi-Fowlers Blood Pressure Location Left Arm Right Arm History Since Last [...] any changes in pain level or No Yes management Left Footwear Regular Shoe Regular Shoe Regular Shoe Right Footwear Regular Shoe Regular Shoe Regular Shoe Pain Scale: 0-10 Numeric Is Patient Pain Free? Yes Yes Yes 03/30/25 04/03/25 04/06/25 08:46 09:27 08:52 WC - Today's Visit Information Type of service Follow-up Visit Follow-up Visit Follow-up Visit (Physician/COFFEE SHOP ATTENDANT (Physician/COFFEE SHOP ATTENDANT (Physician/COFFEE SHOP ATTENDANT ) ) ) Arrival Mode Ambulatory Ambulatory Ambulatory Transfer Assistance None None Patient Identification Verified (Name & Yes Yes Yes ) Patient Requires Transmission-Based No No Precautions Vital Signs Temperature (97.8 F-99.1 F) 96.1 F L 97.1 F L 97.3 F L Temperature Source Temporal Temporal Temporal Pulse Rate (60-100) 66 64 68 Pulse Location Monitor Monitor Monitor Respiratory Rate (12-18) 18 18 16 Respiratory rate source Observation Observation Observation Oxygen Delivery Method Room Air Blood Pressure (90/60-120/80) 131/72 H 123/59 H 129/56 H Blood Pressure Mean (mm Hg) 91 80 80 Source Monitor Monitor Monitor Position Semi-Fowlers Blood Pressure Location [...] Has offloadiing in place as prescribed N/A Yes Yes Experienced any changes in pain level or No No No management Left Footwear Regular Shoe Right Footwear Regular Shoe Pain Scale: 0-10 Numeric Is Patient Pain Free? Yes Yes Yes WC - Nurse 1 - General Ulcer Measurement Start: 03/20/25 10:41 Freq: Status: Active Protocol: Activity Type Activity Date Activity User E-sign Co-sign Detail Recorded Client Recorded Date Recorded By Document 03/23/25 08:44 DL [id number] 03/23/25 08:50 DL Document 03/30/25 08:46 KW [id number] 03/30/25 08:53 KW Document 04/03/25 09:27 DL [id number] 04/03/25 09:39 DL Document 04/06/25 08:52 DL [id number] 04/06/25 08:59 DL 03/23/25 03/30/25 04/03/25 08:44 08:46 09:27 Wound Center Nurse 1 #1 L Med Ankle -Current Size (cm) - Length 2.5 1 -Current Size (cm) - Width 1 0.5 -Current Size (cm) - Depth 0.1 0.1 -Total Square Cm 2.5 0.5 -Date of Last Picture (Recall this 03/30/25 field) -Photo Taken Yes -Exudate Amt Small Medium Medium -Exudate Type Serosanguineous Serosanguineous Serosanguineous -Wound Margin Indistinct, Non Distinct, Distinct, -Visible Outline Outline Attached Attached -Granulation Amt Small (1-33%) Large (67-100%) Small (1-33%) -Granulation Quality [place] -Necrosis Amt Medium (34-66%) Small (1-33%) Small (1-33%) -Necrotic Tissue Type Adherent Slough Adherent Slough Adherent Slough -Structure Exposed N/A N/A -Texture (Megan-wound Skin Appearance) Scarring No Abnormality Scarring -Moisture (Megan-wound Skin Appearance) No Abnormality Assessed,Dry/ No Abnormality Scaly -Color (Megan-wound Skin Appearance) No Abnormality Assessed, No Abnormality Hemosiderin Staining -Temperature (Megan-wound Skin No Abnormality No Abnormality No Abnormality Appearance) (Pt Warm) (Pt Warm) (Pt Warm) -Tenderness on Palpation (Megan-wound No No No Skin Appearance) -Ulcer Cleansing Soap and Water Soap and Water Soap and Water -Foul Odor after Cleansing No No -Anesthetic Used 5% Lidocaine 5% Lidocaine Gel Gel Left Calf (cm) 32.5 34.5 Left Ankle (cm) 21.5 21 04/06/25 08:52 Wound Center Nurse 1 #1 L Med Ankle -Current Size (cm) - Length 0.3 -Current Size (cm) - Width 0.3 -Current Size (cm) - Depth 0.1 -Total Square Cm 0.09 -Date of Last Picture (Recall this field) -Photo Taken Yes -Exudate Amt Small -Exudate Type -Wound Margin Thickened -Granulation Amt Small (1-33%) -Granulation Quality [place] -Necrosis Amt Medium (34-66%) -Necrotic Tissue Type Adherent Slough -Structure Exposed N/A -Texture (Megan-wound Skin Appearance) Scarring -Moisture (Megan-wound Skin Appearance) Dry/Scaly -Color (Megan-wound Skin Appearance) Hemosiderin Staining -Temperature (Megan-wound Skin No Abnormality Appearance) (Pt Warm) -Tenderness on Palpation (Megan-wound Skin Appearance) -Ulcer Cleansing Soap and Water -Foul Odor after Cleansing No -Anesthetic Used 5% Lidocaine Gel Left Calf (cm) Left Ankle (cm) WC - Nurse 2 - General Ulcer CM Notes Start: 03/20/25 10:41 Freq: Status: Active Protocol: Activity Type Activity Date Activity User E-sign Co-sign Detail Recorded Client Recorded Date Recorded By Document 03/23/25 09:09 [facility] [id number] 03/23/25 09:19 [employer] Document 03/30/25 09:23 [facility] [id number] 03/30/25 09:26 [facility] Document 04/06/25 09:14 [facility] [id number] 04/06/25 09:19 [facility] 03/23/25 03/30/25 04/06/25 09:09 09:23 09:14 Wound Center Nurse 2 #1 L Med Ankle -Time 09:09 09:23 09:14 -Correct Patient Yes Yes Yes -Correct Side, Site, Position Yes Yes Yes -Correct Procedure Yes Yes Yes -Procedure Performed Yes Yes Yes -Type of Procedure Debridement Debridement Debridement -Clinical Debridement Subcutaneous Subcutaneous Subcutaneous -Tissue Removed Subcutaneous Subcutaneous Subcutaneous -Post Debridement (cm) - Length 2.4 1.6 1.8 -Post Debridement (cm) - Width 0.7 0.9 0.5 -Post Debridement (cm) - Depth 0.1 0.1 0.1 -Total Square (Post) (cm) 1.68 1.44 0.90 -Area of Debridement (cm) - Length 2.4 1.6 1.8 -Area of Debridement (cm) - Width 0.7 0.9 0.5 -Total Square (Area) (cm) 1.68 1.44 0.90 -Tunneling No No No -Undermining/Tunneling No No [...] 3 - General Ulcer D/C NN Start: 03/20/25 10:41 Freq: Status: Active Protocol: Activity Type Activity Date Activity User E-sign Co-sign Detail Recorded Client Recorded Date Recorded By Document 03/20/25 10:42 KW [id number] 03/20/25 10:56 KW Document 03/23/25 09:30 DL [id number] 03/23/25 09:31 DL Document 03/27/25 11:02 JF [id number] 03/27/25 11:06 JF Document 03/30/25 09:42 KW [id number] 03/30/25 09:43 KW Document 04/03/25 09:27 DL [id number] 04/03/25 09:39 DL 03/20/25 03/23/25 03/27/25 10:42 09:30 11:02 Pain Scale: 0-10 Numeric Is Patient Pain Free? Yes Yes Yes Wound Care Center Nurse 3 #1 L Med Ankle -Ulcer Cleansing Soap and Water Rinsed/ Irrigated with Saline -Foul Odor after Cleansing No -Primary Dressing Applied NonAdherent Contact Layer -Other Dressing abran with moist abran adaptic -Primary Dressing Covered/Secured with Dry Gauze Dry Gauze -Other Covering padding to ant ankle -Wound Comment(s) pad around top of foot for comfort LLE -Lotion applied to leg before Yes compression wrap -Multi-Layered Wrap Application Multi-Layer Multi-Layer Multi-Layer Comp - Left ($) Comp - Left ($) Comp - Left ($) -Multi-Layer Compression Left (Qty 1 1 1 applied) Treatment Response Procedure Tolerated Well WC - Visit Discharge Discharge Condition Stable Stable Ambulatory Status Ambulatory Ambulatory Transportation Private Auto Private Auto Medication Reconcilliation completed & Yes provided to patient/care provider Clinical Summary of Care Provided Yes 03/30/25 04/03/25 09:42 09:27 Pain Scale: 0-10 Numeric Is Patient Pain Free? Yes Yes Wound Care Center Nurse 3 #1 L Med Ankle -Ulcer Cleansing Soap and Water -Foul Odor after Cleansing No -Primary Dressing Applied NonAdherent NonAdherent Contact Layer Contact Layer -Other Dressing pt own abran Abran topped with adaptic -Primary Dressing Covered/Secured with Dry Gauze Dry Gauze & Roll Gauze, Secured with Tape -Other Covering -Wound Comment(s) LLE -Lotion applied to leg before compression wrap -Multi-Layered Wrap Application Multi-Layer Multi-Layer Comp - Left ($) Comp - Left ($) -Multi-Layer Compression Left (Qty 1 1 applied) Treatment Response Procedure Tolerated Well WC - Visit Discharge Discharge Condition Stable Stable Ambulatory Status Ambulatory Ambulatory Transportation Private Auto Private Auto Medication Reconcilliation completed & No provided to patient/care provider Clinical Summary of Care Provided Yes Assessment/Plan Assessment/Plan (1) Non-pressure chronic ulcer of left calf with fat layer exposed: CODE(S): L97.222 - Non-pressure chronic ulcer of left calf with fat layer exposed (2) Venous insufficiency (chronic) (peripheral): CODE(S): I87.2 - Venous insufficiency (chronic) (peripheral) (3) 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: CODE(S): I83.003 - Varicose veins of unspecified lower extremity with ulcer of ankle; L97.302 - Non-pressure chronic ulcer of unspecified ankle with fat layer exposed QUALIFIERS: Varicose vein presence: with varicose veins Laterality: left Qualified Code(s): I83.023- Varicose veins of left lower extremity with ulcer of ankle; L97.322 - 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 Postdebridement measurement 1.8 cm x 0.5 cm x 0.1 cm. Abran was applied to thewound bed followed by Adaptic and 3M compression wrap to left lower extremity. He was instructed to keep dressings clean, dry, and intact to theleft lower extremity. There is continued reduction in size of ulceration versus previous visit with Adaptic aiding in discouraging skin tears upon dressing changes. Edema remains well-controlled with current compression therapy. Stat Doppler for 02/16/2025 [...] his venous insufficiency. Procedure scheduled for 04/13/25. He will have 3M wrap removed the day before procedure and will utilize Tubigrip compression for the remainderof the day. Discussed continued diet to aid in healing [...] No signs of infection Pain: May take [id number] Tylenol Extra Strength for discomfort Host factors: Chronic venous insufficiency, chronic lower extremity edema, prolonged standing/activity, advanced age complicate healing. Discussed returning next 04/12/2025 for removal of the 3M wrap prior to this procedure. He will then return with me the following week for continuedwound care. I answered all the patient's questions. To return to the wound healing center in 2 weeks or call sooner if the patient has any questions or concerns. 04/06/25 [id number] Cosigner Signature (if applicable): CC: ~ Signed [facility]06-12-2025 Progress note Author Merrill Burns [facility] Note Date/Time March 30, 2025 9:31 am [facility] [address] [place] [address] Progress Note - Wound Care 03/30/25 0928 MR#: [id number] Acct: [id number] Name: WELLINGTON GONZALEZ Rep #:[id number] : 1945 80 From: Merrill machado DPM PCP: Dr. Randa Joseph, DO Status:REG RCR Location: History of Present Illness Date of Service: 03/30/25 Chief Complaint: Left medial ankle wound History [...] compression wrap to the left lower extremity. Continues to tolerate this well. He did return for dressing change as nurse visit this past Thursday. His swelling remains well-controlled with current compression wrap. He is awaiting vascular procedure with Dr. Mckee in 2 weeks. He denies constitutional symptoms. Denies further complaints. Objective Data Objective Data Vital Signs: Vital Signs Temp Pulse Resp BP O2 Del Method 96.1 F L 66 18 131/72 H Room Air 03/30/25 08:46 03/30/25 08:46 03/30/25 08:46 03/30/25 08:46 03/30/25 08:46 Oxygen Delivery Method Room Air Physical Exam Const alert, oriented x3 and no apparent distress General Appearance: cooperative HEENT normocephalic Eyes Eyes Narrative: Wears glasses General Eye: normal appearance of both eyes Lymph Lymphatic: no lymphadenopathy noted and no lymphedema noted Resp normal respiratory effort Cardio regular rate and regular rhythm Extremity no calf tenderness Extremity Narrative: Left lower extremity: Vascular: DP [...] Nurse 1 - General Ulcer Assessment Start: 03/20/25 10:41 Freq: Status: Active Protocol: ANAYA Activity Type Activity Date Activity User E-sign Co-sign Detail Recorded Client Recorded Date Recorded By Document 03/20/25 10:42 KW [id number] 03/20/25 10:56 KW Document 03/23/25 08:44 DL [id number] 03/23/25 08:50 DL Document 03/27/25 11:02 JF [id number] 03/27/25 11:06 JF Document 03/30/25 08:46 KW [id number] 03/30/25 08:53 KW 03/20/25 03/23/25 03/27/25 10:42 08:44 11:02 - Today's Visit Information Type of service Nurse-only Follow-up Visit Follow-up Visit Visit (Physician/COFFEE SHOP ATTENDANT (Physician/COFFEE SHOP ATTENDANT ) ) Arrival Mode Ambulatory Ambulatory Ambulatory Transfer Assistance None Patient Identification Verified (Name & Yes Yes Yes ) Patient Requires Transmission-Based No No Precautions Vital Signs Temperature (97.8 F-99.1 F) 97.0 F L 97.2 F L 96.7 F L Temperature Source Temporal Temporal Temporal Pulse Rate (60-100) 72 69 68 Pulse Location Monitor Monitor Monitor Respiratory Rate (12-18) 16 18 18 Respiratory rate source Observation Observation Observation Oxygen Delivery Method Room Air Blood Pressure (90/60-120/80) 127/87 H 141/73 H 120/64 Blood Pressure Mean (mm Hg) 100 95 82 Source Monitor Monitor Monitor Position Semi-Fowlers Semi-Fowlers Blood Pressure Location Left Arm Right Arm History Since Last [...] any changes in pain level or No Yes management Left Footwear Regular Shoe Regular Shoe Regular Shoe Right Footwear Regular Shoe Regular Shoe Regular Shoe Pain Scale: 0-10 Numeric Is Patient Pain Free? Yes Yes Yes 03/30/25 08:46 WC - Today's Visit Information Type of service Follow-up Visit (Physician/COFFEE SHOP ATTENDANT ) Arrival Mode Ambulatory Transfer Assistance Patient Identification Verified (Name & Yes ) Patient Requires Transmission-Based Precautions Vital Signs Temperature (97.8 F-99.1 F) 96.1 F L Temperature Source Temporal Pulse Rate (60-100) 66 Pulse Location Monitor Respiratory Rate (12-18) 18 Respiratory rate source Observation Oxygen Delivery Method Room Air Blood Pressure (90/60-120/80) 131/72 H Blood Pressure Mean (mm Hg) 91 Source Monitor Position Semi-Fowlers Blood Pressure Location [...] Nurse 1 - General Ulcer Measurement Start: 03/20/25 10:41 Freq: Status: Active Protocol: Activity Type Activity Date Activity User E-sign Co-sign Detail Recorded Client Recorded Date Recorded By Document 03/23/25 08:44 DL [id number] 03/23/25 08:50 DL Document 03/30/25 08:46 KW [id number] 03/30/25 08:53 KW 03/23/25 03/30/25 08:44 08:46 Wound Center Nurse 1 #1 L Med Ankle -Current Size (cm) - Length 2.5 1 -Current Size (cm) - Width 1 0.5 -Current Size (cm) - Depth 0.1 0.1 -Total Square Cm 2.5 0.5 -Date of Last Picture (Recall this 03/30/25 field) -Photo Taken Yes -Exudate Amt Small Medium -Exudate Type Serosanguineous Serosanguineous -Wound Margin Indistinct, Non Distinct, -Visible Outline Attached -Granulation Amt Small (1-33%) Large (67-100%) -Granulation Quality [place] -Necrosis Amt Medium (34-66%) Small (1-33%) -Necrotic Tissue Type Adherent Slough Adherent Slough -Structure Exposed N/A -Texture (Megan-wound Skin Appearance) Scarring No Abnormality -Moisture (Megan-wound Skin Appearance) No Abnormality Assessed,Dry/ Scaly -Color (Megan-wound Skin Appearance) No Abnormality Assessed, Hemosiderin Staining -Temperature (Megan-wound Skin No Abnormality No Abnormality Appearance) (Pt Warm) (Pt Warm) -Tenderness on Palpation (Megan-wound No No Skin Appearance) -Ulcer Cleansing Soap and Water Soap and Water -Foul Odor after Cleansing No -Anesthetic Used 5% Lidocaine 5% Lidocaine Gel Gel Left Calf (cm) 32.5 34.5 Left Ankle (cm) 21.5 21 WC - Nurse 2 - General Ulcer CM Notes Start: 03/20/25 10:41 Freq: Status: Active Protocol: Activity Type Activity Date Activity User E-sign Co-sign Detail Recorded Client Recorded Date Recorded By Document 03/23/25 09:09 [facility] [id number] 03/23/25 09:19 [facility] Document 03/30/25 09:23 [facility] [id number] 03/30/25 09:26 [facility] 03/23/25 03/30/25 09:09 09:23 Wound Center Nurse 2 #1 L Med Ankle -Time 09:09 09:23 -Correct Patient Yes Yes -Correct Side, Site, Position Yes Yes -Correct Procedure Yes Yes -Procedure Performed Yes Yes -Type of Procedure Debridement Debridement -Clinical Debridement Subcutaneous Subcutaneous -Tissue Removed Subcutaneous Subcutaneous -Post Debridement (cm) - Length 2.4 1.6 -Post Debridement (cm) - Width 0.7 0.9 -Post Debridement (cm) - Depth 0.1 0.1 -Total Square (Post) (cm) 1.68 1.44 -Area of Debridement (cm) - Length 2.4 1.6 -Area of Debridement (cm) - Width 0.7 0.9 -Total Square (Area) (cm) 1.68 1.44 -Tunneling No No -Undermining/Tunneling No No -Circular [...] 3 - General Ulcer D/C NN Start: 03/20/25 10:41 Freq: Status: Active Protocol: Activity Type Activity Date Activity User E-sign Co-sign Detail Recorded Client Recorded Date Recorded By Document 03/20/25 10:42 KW [id number] 03/20/25 10:56 KW Document 03/23/25 09:30 DL [id number] 03/23/25 09:31 DL Document 03/27/25 11:02 JF [id number] 03/27/25 11:06 JF 03/20/25 03/23/25 03/27/25 10:42 09:30 11:02 Pain Scale: 0-10 Numeric Is Patient Pain Free? Yes Yes Yes Wound Care Center Nurse 3 #1 L Med Ankle -Ulcer Cleansing Soap and Water Rinsed/ Irrigated with Saline -Foul Odor after Cleansing No -Primary Dressing Applied NonAdherent Contact Layer -Other Dressing abran with moist abran adaptic -Primary Dressing Covered/Secured with Dry Gauze Dry Gauze -Other Covering padding to ant ankle -Wound Comment(s) pad around top of foot for comfort LLE -Lotion applied to leg before Yes compression wrap -Multi-Layered Wrap Application Multi-Layer Multi-Layer Multi-Layer Comp - Left ($) Comp - Left ($) Comp - Left ($) -Multi-Layer Compression Left (Qty 1 1 1 applied) Treatment Response Procedure Tolerated Well - Visit Discharge Discharge Condition Stable Stable Ambulatory Status Ambulatory Ambulatory Transportation Private Auto Private Auto Medication Reconcilliation completed & Yes provided to patient/care provider Clinical Summary of Care Provided Yes Assessment/Plan Assessment/Plan (1) Non-pressure chronic ulcer of left calf with fat layer exposed: CODE(S): L97.222 - Non-pressure chronic ulcer of left calf with fat layer exposed (2) Venous insufficiency (chronic) (peripheral): CODE(S): I87.2 - Venous insufficiency (chronic) (peripheral) (3) 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: CODE(S): I83.003 - Varicose veins of unspecified lower extremity with ulcer of ankle; L97.302 - Non-pressure chronic ulcer of unspecified ankle with fat layer exposed QUALIFIERS: Varicose vein presence: with varicose veins Laterality: left Qualified Code(s): I83.023 - Varicose veins of left lower extremitywith ulcer of ankle; L97.322 - Non-pressure chronic ulcer of left ankle with fatlayer exposed (4) Bilateral lower extremity edema: CODE(S): R60.0 - Localized edema PLAN: Plan Patient seen and evaluated Predebridement measurement 1.5 cm x 0.8 cm x 0.1 cm Ulceration site underwent debridement as noted in the clinical panel above. Postdebridement measurement 1.6 cm x 0.9 cm x 0.1 cm. Abran was applied to thewound bed followed by Adaptic and 3M compression wrap to left lower extremity. He was instructed to keep dressings clean, dry, and intact to the left lower extremity. There is continued reduction in size of ulceration versus previous visit with Adaptic aiding in discouraging skin tears upon dressing changes. Edema remains well-controlled with current compression therapy. Stat Doppler for 02/16/2025 [...] No signs of infection Pain: May take [id number] Tylenol Extra Strength for discomfort Host factors: Chronic venous insufficiency, chronic lower extremity edema, prolonged standing/activity, advanced age complicate healing. I answered all the patient's questions. To return to the wound healing center in 1 week or call sooner if the patient has any questions or concerns. 03/30/25930 <Electronically signed by Merrill Burns DPM> Cosigner Signature (if applicable): CC: ~ Signed [facility] Work Phone: 1(641) 953-818506-12-2025 Progress note [facility] [address] [place] [address] Progress Note - Wound Care 03/30/25927 MR#: [id number] Acct: [id number] Name: WELLINGTON GONZALEZ Rep #:[id number] : 1945 80 From: Merrill machado DPM PCP: Dr. Randa Joseph, DO Status:REG RCR Location: History of Present Illness Date of Service: 03/30/25 Chief Complaint: Left medial ankle wound History [...] compression wrap to the left lower extremity. Continues to tolerate this well. He did return for dressing change as nurse visit this past Thursday. His swelling remains well-controlled with current compression wrap. He is awaiting vascular procedurewith Dr. Mckee in 2 weeks. He denies constitutional symptoms. Denies further complaints. Objective Data Objective Data Vital Signs: Vital Signs Temp Pulse Resp BP O2 Del Method 96.1 F L 66 18 131/72 H Room Air 03/30/25 08:46 03/30/25 08:46 03/30/25 08:46 03/30/25 08:46 03/30/25 08:46 Oxygen Delivery Method Room Air Physical Exam Const alert, oriented x3 and no apparent distress General Appearance: cooperative HEENT normocephalic Eyes Eyes Narrative: Wears glasses General Eye: normal appearance of both eyes Lymph Lymphatic: no lymphadenopathy noted and no lymphedema noted Resp normal respiratory effort Cardio regular rate and regular rhythm Extremity no calf tenderness Extremity Narrative: Left lower extremity: Vascular: DP [...] Nurse 1 - General Ulcer Assessment Start: 03/20/25 10:41 Freq: Status: Active Protocol: ANAYA Activity Type Activity Date Activity User E-sign Co-sign Detail Recorded Client Recorded Date Recorded By Document 03/20/25 10:42 KW [id number] 03/20/25 10:56 KW Document 03/23/25 08:44 DL [id number] 03/23/25 08:50 DL Document 03/27/25 11:02 JF [id number] 03/27/25 11:06 Document 03/30/25 08:46 KW [id number] 03/30/25 08:53 KW 03/20/25 03/23/25 03/27/25 10:42 08:44 11:02 - Today's Visit Information Type of service Nurse-only Follow-up Visit Follow-up Visit Visit (Physician/COFFEE SHOP ATTENDANT (Physician/COFFEE SHOP ATTENDANT ) ) Arrival Mode Ambulatory Ambulatory Ambulatory Transfer Assistance None Patient Identification Verified (Name & Yes Yes Yes ) Patient Requires Transmission-Based No No Precautions Vital Signs Temperature (97.8 F-99.1 F) 97.0 F L 97.2 F L 96.7 F L Temperature Source Temporal Temporal Temporal Pulse Rate (60-100) 72 69 68 Pulse Location Monitor Monitor Monitor Respiratory Rate (12-18) 16 18 18 Respiratory rate source Observation Observation Observation Oxygen Delivery Method Room Air Blood Pressure (90/60-120/80) 127/87 H 141/73 H 120/64 Blood Pressure Mean (mm Hg) 100 95 82 Source Monitor Monitor Monitor Position Semi-Fowlers Semi-Fowlers Blood Pressure Location Left Arm Right Arm History Since Last [...] any changes in pain level or No Yes management Left Footwear Regular Shoe Regular Shoe Regular Shoe Right Footwear Regular Shoe Regular Shoe Regular Shoe Pain Scale: 0-10 Numeric Is Patient Pain Free? Yes Yes Yes 03/30/25 08:46 WC - Today's Visit Information Type of service Follow-up Visit (Physician/COFFEE SHOP ATTENDANT ) Arrival Mode Ambulatory Transfer Assistance Patient Identification Verified (Name & Yes ) Patient Requires Transmission-Based Precautions Vital Signs Temperature (97.8 F-99.1 F) 96.1 F L Temperature Source Temporal Pulse Rate (60-100) 66 Pulse Location Monitor Respiratory Rate (12-18) 18 Respiratory rate source Observation Oxygen Delivery Method Room Air Blood Pressure (90/60-120/80) 131/72 H Blood Pressure Mean (mm Hg) 91 Source Monitor Position Semi-Fowlers Blood Pressure Location [...] Nurse 1 - General Ulcer Measurement Start: 03/20/25 10:41 Freq: Status: Active Protocol: Activity Type Activity Date Activity User E-sign Co-sign Detail Recorded Client Recorded Date Recorded By Document 03/23/25 08:44 DL [id number] 03/23/25 08:50 DL Document 03/30/25 08:46 KW [id number] 03/30/25 08:53 KW 03/23/25 03/30/25 08:44 08:46 Wound Center Nurse 1 #1 L Med Ankle -Current Size (cm) - Length 2.5 1 -Current Size (cm) - Width 1 0.5 -Current Size (cm) - Depth 0.1 0.1 -Total Square Cm 2.5 0.5 -Date of Last Picture (Recall this 03/30/25 field) -Photo Taken Yes -Exudate Amt Small Medium -Exudate Type Serosanguineous Serosanguineous -Wound Margin Indistinct, Non Distinct, -Visible Outline Attached -Granulation Amt Small (1-33%) Large (67-100%) -Granulation Quality [place] -Necrosis Amt Medium (34-66%) Small (1-33%) -Necrotic Tissue Type Adherent Slough Adherent Slough -Structure Exposed N/A -Texture (Megan-wound Skin Appearance) Scarring No Abnormality -Moisture (Megan-wound Skin Appearance) No Abnormality Assessed,Dry/ Scaly -Color (Megan-wound Skin Appearance) No Abnormality Assessed, Hemosiderin Staining -Temperature (Megan-wound Skin No Abnormality No Abnormality Appearance) (Pt Warm) (Pt Warm) -Tenderness on Palpation (Megan-wound No No Skin Appearance) -Ulcer Cleansing Soap and Water Soap and Water -Foul Odor after Cleansing No -Anesthetic Used 5% Lidocaine 5% Lidocaine Gel Gel Left Calf (cm) 32.5 34.5 Left Ankle (cm) 21.5 21 WC - Nurse 2 - General Ulcer CM Notes Start: 03/20/25 10:41 Freq: Status: Active Protocol: Activity Type Activity Date Activity User E-sign Co-sign Detail Recorded Client Recorded Date Recorded By Document 03/23/25 09:09 BM [id number] 03/23/25 09:19 BM Document 03/30/25 09:23 [facility] [id number] 03/30/25 09:26 [facility] 03/23/25 03/30/25 09:09 09:23 Wound Center Nurse 2 #1 L Med Ankle -Time 09:09 09:23 -Correct Patient Yes Yes -Correct Side, Site, Position Yes Yes -Correct Procedure Yes Yes -Procedure Performed Yes Yes -Type of Procedure Debridement Debridement -Clinical Debridement Subcutaneous Subcutaneous -Tissue Removed Subcutaneous Subcutaneous -Post Debridement (cm) - Length 2.4 1.6 -Post Debridement (cm) - Width 0.7 0.9 -Post Debridement (cm) - Depth 0.1 0.1 -Total Square (Post) (cm) 1.68 1.44 -Area of Debridement (cm) - Length 2.4 1.6 -Area of Debridement (cm) - Width 0.7 0.9 -Total Square (Area) (cm) 1.68 1.44 -Tunneling No No -Undermining/Tunneling No No -Circular [...] 3 - General Ulcer D/C NN Start: 03/20/25 10:41 Freq: Status: Active Protocol: Activity Type Activity Date Activity User E-sign Co-sign Detail Recorded Client Recorded Date Recorded By Document 03/20/25 10:42 KW [id number] 03/20/25 10:56 KW Document 03/23/25 09:30 DL [id number] 03/23/25 09:31 DL Document 03/27/25 11:02 JF [id number] 03/27/25 11:06 JF 03/20/25 03/23/25 03/27/25 10:42 09:30 11:02 Pain Scale: 0-10 Numeric Is Patient Pain Free? Yes Yes Yes Wound Care Center Nurse 3 #1 L Med Ankle -Ulcer Cleansing Soap and Water Rinsed/ Irrigated with Saline -Foul Odor after Cleansing No -Primary Dressing Applied NonAdherent Contact Layer -Other Dressing abran with moist abran adaptic -Primary Dressing Covered/Secured with Dry Gauze Dry Gauze -Other Covering padding to ant ankle -Wound Comment(s) pad around top of foot for comfort LLE -Lotion applied to leg before Yes compression wrap -Multi-Layered Wrap Application Multi-Layer Multi-Layer Multi-Layer Comp - Left ($) Comp - Left ($) Comp - Left ($) -Multi-Layer Compression Left (Qty 1 1 1 applied) Treatment Response Procedure Tolerated Well WC - Visit Discharge Discharge Condition Stable Stable Ambulatory Status Ambulatory Ambulatory Transportation Private Auto Private Auto Medication Reconcilliation completed & Yes provided to patient/care provider Clinical Summary of Care Provided Yes Assessment/Plan Assessment/Plan (1) Non-pressure chronic ulcer of left calf with fat layer exposed: CODE(S): L97.222 - Non-pressure chronic ulcer of left calf with fat layer exposed (2) Venous insufficiency (chronic) (peripheral): CODE(S): I87.2 - Venous insufficiency (chronic) (peripheral) (3) 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: CODE(S): I83.003 - Varicose veins of unspecified lower extremity with ulcer of ankle; L97.302 - Non-pressure chronic ulcer of unspecified ankle with fat layer exposed QUALIFIERS: Varicose vein presence: with varicose veins Laterality: left Qualified Code(s): I83.023- Varicose veins of left lower extremitywith ulcer of ankle; L97.322 - Non-pressure chronic ulcer of left ankle with fatlayer exposed (4) Bilateral lower extremity edema: CODE(S): R60.0 - Localized edema PLAN: Plan Patient seen and evaluated Predebridement measurement 1.5 cm x 0.8 cm x 0.1 cm Ulceration site underwent debridement as noted in the clinical panel above. Postdebridement measurement 1.6 cm x 0.9 cm x 0.1 cm. Abran was applied to thewound bed followed by Adaptic and 3M compression wrap to left lower extremity. He was instructed to keep dressings clean, dry, and intact to theleft lower extremity. There is continued reduction in size of ulceration versus previous visit with Adaptic aiding in discouraging skin tears upon dressing changes. Edema remains well-controlled with current compression therapy. Stat Doppler for 02/16/2025 [...] No signs of infection Pain: May take [id number] Tylenol Extra Strength for discomfort Host factors: Chronic venous insufficiency, chronic lower extremity edema, prolonged standing/activity, advanced age complicate healing. I answered all the patient's questions. To return to the wound healing center in 1 week or call sooner if the patient has any questions or concerns. 03/30/25 [id number] Cosigner Signature (if applicable): CC: ~ Signed [facility]06-10-2025 Evaluation note* Diagnosis Onset Date Resolution Status Admit Date Solitary pulmonary nodule acute March 28, 2025 9:21am JOSHUA (obstructive sleep apnea) chroni c March 28, 2025 9:21am Restless leg syndrome chronic Kyle e 10th, 2025 9:21am Severe persistent asthma, uncomplicated chronic March 28, 2025 9:21am Bilateral lower extremity edema acute April 12, 2025 3:00pm 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 acute March 3:00pm 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 April 12, 2025 3:00pm Venous insufficiency (chroni c) (peripheral) chronic April 12, 2025 3:00pm 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 acute March 7:10am Bilateral lower extremity edema acute April 26, 2025 1 0:44am 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 April 26, 2025 1 0:44am Venous insufficiency (chroni c) (peripheral) chronic April 26, 2025 1 0:44am Bilateral lower extremity edema acute May 18, 2025 3:11pm 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 acute April 3:11pm 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 May 18, 2025 3:11pm Venous insufficiency (chroni c) (peripheral) chronic May 18, 2025 3:11pm Bilateral lower extremity edema acute June 15 9:15am Cellulitis of left lower limb acute June 15, 2025 9:15am 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 acute June 152024 9:15am 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 June 15 9:15am Venous insufficiency (chroni c) (peripheral) chronic June 15 9:15am Bilateral lower extremity edema acute July 18, 2025 11:00am Non-pressure chronic ulcer o f ankle with fat layer exposed acute Jun 11:00am 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 acute July 18, 2025 11:00am Venous insufficiency (chroni c) (peripheral) chronic July 18, 2025 11:00am [facility] Work Phone: [phone]) 897-498006-05-2025 Progress note Author Merrill Burns [facility] Note Date/Time March 23, 2025 12:51 pm [facility] [place] [address] Progress Note - Wound Care 03/23/25 1242 MR#: [id number] Acct: [id number] Name: WELLINGTON GONZALEZ Rep #:[id number] : 1945 80 From: Merrill machado DPM PCP: Dr. Randa Joseph, DO Status:REG RCR Location: History of Present Illness Date of Service: 03/23/25 Chief Complaint: Left medial ankle wound History [...] change as nurse visit this past Thursday. His swelling appears to be well-controlled with compression wrap. He is awaiting vascular procedure with Dr. Mckee later this month. He denies constitutional symptoms. Denies furthercomplaints. Objective Data Objective Data Vital Signs: Vital Signs Temp Pulse Resp BP O2 Del Method 97.2 F L 69 18 141/73 H Room Air 03/23/25 08:44 03/23/25 08:44 03/23/25 08:44 03/23/25 08:44 03/20/25 10:42 Oxygen Delivery Method Room Air Physical Exam Const alert, oriented x3 and no apparent distress General Appearance: cooperative HEENT normocephalic Eyes Eyes Narrative: Wears glasses General Eye: normal appearance of both eyes Lymph Lymphatic: no lymphadenopathy noted and no lymphedema noted Resp normal respiratory effort Cardio regular rate and regular rhythm Extremity no calf tenderness Extremity Narrative: Left lower extremity: Vascular: DP [...] ankle Laterality: Left Wound Grade/Stage: Cisneros stage I [...] Nurse 1 - General Ulcer Assessment Start: 03/20/25 10:41 Freq: Status: Active Protocol: ANAYA Activity Type Activity Date Activity User E-sign Co-sign Detail Recorded Client Recorded Date Recorded By Document 03/20/25 10:42 KW [id number] 03/20/25 10:56 KW Document 03/23/25 08:44 DL [id number] 03/23/25 08:50 DL 03/20/25 03/23/25 10:42 08:44 - Today's Visit Information Type of service Nurse-only Follow-up Visit Visit (Physician/COFFEE SHOP ATTENDANT ) Arrival Mode Ambulatory Ambulatory Transfer Assistance None Patient Identification Verified (Name & Yes Yes ) Patient Requires Transmission-Based No Precautions Vital Signs Temperature (97.8 F-99.1 F) 97.0 F L 97.2 F L Temperature Source Temporal Temporal Pulse Rate (60-100) 72 69 Pulse Location Monitor Monitor Respiratory Rate (12-18) 16 18 Respiratory rate source Observation Observation Oxygen Delivery Method Room Air Blood Pressure (90/60-120/80) 127/87 H 141/73 H Blood Pressure Mean (mm Hg) 100 95 Source Monitor Monitor Position Semi-Fowlers Blood Pressure [...] any changes in pain level or No Yes management Left Footwear Regular Shoe Regular Shoe Right Footwear Regular Shoe Regular Shoe Pain Scale: 0-10 Numeric Is Patient Pain Free? Yes Yes - Nurse 1 - General Ulcer Measurement Start: 03/20/25 10:41 Freq: Status: Active Protocol: Activity Type Activity Date Activity User E-sign Co-sign Detail Recorded Client Recorded Date Recorded By Document 03/23/25 08:44 DL [id number] 03/23/25 08:50 DL 03/23/25 08:44 Wound Center Nurse 1 #1 L Med Ankle -Current Size (cm) - Length 2.5 -Current Size (cm) - Width 1 -Current Size (cm) - Depth 0.1 -Total Square Cm 2.5 -Photo Taken Yes -Exudate Amt Small -Exudate Type Serosanguineous -Wound Margin Indistinct, Non -Visible -Granulation Amt Small (1-33%) -Granulation Quality [place] -Necrosis Amt Medium (34-66%) -Necrotic Tissue Type Adherent Slough -Structure Exposed N/A -Texture (Megan-wound Skin Appearance) Scarring -Moisture (Megan-wound Skin Appearance) No Abnormality -Color (Megan-wound Skin Appearance) No Abnormality -Temperature (Megan-wound Skin No Abnormality Appearance) (Pt Warm) -Tenderness on Palpation (Megan-wound No Skin Appearance) -Ulcer Cleansing Soap and Water -Foul Odor after Cleansing No -Anesthetic Used 5% Lidocaine Gel Left Calf (cm) 32.5 Left Ankle (cm) 21.5 WC - Nurse 2 - General Ulcer CM Notes Start: 03/20/25 10:41 Freq: Status: Active Protocol: Activity Type Activity Date Activity User E-sign Co-sign Detail Recorded Client Recorded Date Recorded By Document 03/23/25 09:09 [facility] [id number] 03/23/25 09:19 [facility] 03/23/25 09:09 Wound Center Nurse 2 #1 L VuCOMP Ankle -Time 09:09 -Correct Patient Yes -Correct Side, Site, Position Yes -Correct Procedure Yes -Procedure Performed Yes -Type of Procedure Debridement -Clinical Debridement Subcutaneous -Tissue Removed Subcutaneous -Post Debridement (cm) - Length 2.4 -Post Debridement (cm) - Width 0.7 -Post Debridement (cm) - Depth 0.1 -Total Square (Post) (cm) 1.68 -Area of Debridement (cm) - Length 2.4 -Area of Debridement (cm) - Width 0.7 -Total Square (Area) (cm) 1.68 -Tunneling No -Undermining/Tunneling No -Circular Undermining No -Wound/Ulcer Outcome Not Healed -Ulcer Cleansing Rinsed/ Irrigated with Saline -Foul Odor after Cleansing No -Bioengineered Tissue No -Bleeding Controlled with Pressure -Treatment Response Procedure Tolerated Well -Debridement - Subq, 1st 20sq cm Yes Pain Scale: 0-10 Numeric Is Patient Pain Free? Yes WC - Nurse 3 - General Ulcer D/C NN Start: 03/20/25 10:41 Freq: Status: Active Protocol: Activity Type Activity Date Activity User E-sign Co-sign Detail Recorded Client Recorded Date Recorded By Document 03/20/25 10:42 KW [id number] 03/20/25 10:56 KW Document 03/23/25 09:30 DL [id number] 03/23/25 09:31 DL 03/20/25 03/23/25 10:42 09:30 Pain Scale: 0-10 Numeric Is Patient Pain Free? Yes Yes Wound Care Center Nurse 3 #1 L Med Ankle -Ulcer Cleansing Soap and Water Rinsed/ Irrigated with Saline -Foul Odor after Cleansing No -Primary Dressing Applied NonAdherent Contact Layer -Other Dressing abran with moist abran adaptic -Primary Dressing Covered/Secured with Dry Gauze Dry Gauze -Other Covering padding to ant ankle -Wound Comment(s) pad around top of foot for comfort LLE -Multi-Layered Wrap Application Multi-Layer Multi-Layer Comp - Left ($) Comp - Left ($) -Multi-Layer Compression Left (Qty 1 1 applied) Treatment Response Procedure Tolerated Well WC - Visit Discharge Discharge Condition Stable Ambulatory Status Ambulatory Transportation Private Auto Assessment/Plan Assessment/Plan (1) Non-pressure chronic ulcer of left calf with fat layer exposed: CODE(S): L97.222 - Non-pressure chronic ulcer of left calf with fat layer exposed (2) Venous insufficiency (chronic) (peripheral): CODE(S): I87.2 - Venous insufficiency (chronic) (peripheral) (3) Venous stasis ulcer of ankle with fat [...] of left ankle with fat layer exposed (4) Bilateral lower extremity edema: CODE(S): R60.0 - Localized edema PLAN: Plan Patient seen and evaluated Predebridement measurement 2.3 cm x 0.6 cm x 0.1 cm Ulceration site underwent debridement as noted in the clinical panel above. Postdebridement measurement 2.4 cm x 0.7 cm x 0.1 cm. Abran was applied to thewound bed followed by Adaptic and 3M compression wrap to left lower extremity. He was instructed to keep dressings clean, dry, and intact to the left lower extremity. There is reduction in size of ulceration versus previous visit with Adaptic aiding in discouraging skin tears upon dressing changes. Edema remains well-controlled with current compression therapy. Stat Doppler for 02/16/2025 [...] No signs of infection Pain: May take obbo-vcl-oehesof Tylenol Extra Strength for discomfort Host factors: Chronic venous insufficiency, chronic lower extremity edema, prolonged standing/activity, advanced age complicate healing. I answered all the patient's questions. To return to the wound healing center in 1 week or call sooner if the patient has any questions or concerns. 03/23/25 1251 <Electronically signed by Merrill Burns DPM> Cosigner Signature (if applicable): CC: ~ Signed [facility] Work Phone: 1(940) 934-658106-05-2025 Progress note [facility] [address] [place] [address] Progress Note - Wound Care 03/23/25 1242 MR#: [id number] Acct: [id number] Name: WELLINGTON GONZALEZ Rep #:[id number] : 1945 80 From: Merrill machado DPM PCP: Dr. Randa Joseph, DO Status:REG RCR Location: History of Present Illness Date of Service: 03/23/25 Chief Complaint: Left medial ankle wound History [...] change as nurse visit this past Thursday. His swelling appears to be well-controlled with compression wrap. He is awaiting vascular procedure with Dr. Mckee later this month. He denies constitutional symptoms. Denies furthercomplaints. Objective Data Objective Data Vital Signs: Vital Signs Temp Pulse Resp BP O2 Del Method 97.2 F L 69 18 141/73 H Room Air 03/23/25 08:44 03/23/25 08:44 03/23/25 08:44 03/23/25 08:44 03/20/25 10:42 Oxygen Delivery Method Room Air Physical Exam Const alert, oriented x3 and no apparent distress General Appearance: cooperative HEENT normocephalic Eyes Eyes Narrative: Wears glasses General Eye: normal appearance of both eyes Lymph Lymphatic: no lymphadenopathy noted and no lymphedema noted Resp normal respiratory effort Cardio regular rate and regular rhythm Extremity no calf tenderness Extremity Narrative: Left lower extremity: Vascular: DP [...] ankle Laterality: Left Wound Grade/Stage: Cisneros stage I [...] Nurse 1 - General Ulcer Assessment Start: 03/20/25 10:41 Freq: Status: Active Protocol: [place] [employer]DR[employer] Activity Type Activity Date Activity User E-sign Co-sign Detail Recorded Client Recorded Date Recorded By Document 03/20/25 10:42 KW [id number] 03/20/25 10:56 KW Document 03/23/25 08:44 DL [id number] 03/23/25 08:50 DL 03/20/25 03/23/25 10:42 08:44 - Today's Visit Information Type of service Nurse-only Follow-up Visit Visit (Physician/COFFEE SHOP ATTENDANT ) Arrival Mode Ambulatory Ambulatory Transfer Assistance None Patient Identification Verified (Name & Yes Yes ) Patient Requires Transmission-Based No Precautions Vital Signs Temperature (97.8 F-99.1 F) 97.0 F L 97.2 F L Temperature Source Temporal Temporal Pulse Rate (60-100) 72 69 Pulse Location Monitor Monitor Respiratory Rate (12-18) 16 18 Respiratory rate source Observation Observation Oxygen Delivery Method Room Air Blood Pressure (90/60-120/80) 127/87 H 141/73 H Blood Pressure Mean (mm Hg) 100 95 Source Monitor Monitor Position Semi-Fowlers Blood Pressure [...] any changes in pain level or No Yes management Left Footwear Regular Shoe Regular Shoe Right Footwear Regular Shoe Regular Shoe Pain Scale: 0-10 Numeric Is Patient Pain Free? Yes Yes - Nurse 1 - General Ulcer Measurement Start: 03/20/25 10:41 Freq: Status: Active Protocol: Activity Type Activity Date Activity User E-sign Co-sign Detail Recorded Client Recorded Date Recorded By Document 03/23/25 08:44 DL [id number] 03/23/25 08:50 DL 03/23/25 08:44 Wound Center Nurse 1 #1 L Med Ankle -Current Size (cm) - Length 2.5 -Current Size (cm) - Width 1 -Current Size (cm) - Depth 0.1 -Total Square Cm 2.5 -Photo Taken Yes -Exudate Amt Small -Exudate Type Serosanguineous -Wound Margin Indistinct, Non -Visible -Granulation Amt Small (1-33%) -Granulation Quality [place] -Necrosis Amt Medium (34-66%) -Necrotic Tissue Type Adherent Slough -Structure Exposed N/A -Texture (Megan-wound Skin Appearance) Scarring -Moisture (Megan-wound Skin Appearance) No Abnormality -Color (Megan-wound Skin Appearance) No Abnormality -Temperature (Megan-wound Skin No Abnormality Appearance) (Pt Warm) -Tenderness on Palpation (Megan-wound No Skin Appearance) -Ulcer Cleansing Soap and Water -Foul Odor after Cleansing No -Anesthetic Used 5% Lidocaine Gel Left Calf (cm) 32.5 Left Ankle (cm) 21.5 - Nurse 2 - General Ulcer CM Notes Start: 03/20/25 10:41 Freq: Status: Active Protocol: Activity Type Activity Date Activity User E-sign Co-sign Detail Recorded Client Recorded Date Recorded By Document 03/23/25 09:09 [facility] [id number] 03/23/25 09:19 [facility] 03/23/25 09:09 Wound Center Nurse 2 #1 L Med Ankle -Time 09:09 -Correct Patient Yes -Correct Side, Site, Position Yes -Correct Procedure Yes -Procedure Performed Yes -Type of Procedure Debridement -Clinical Debridement Subcutaneous -Tissue Removed Subcutaneous -Post Debridement (cm) - Length 2.4 -Post Debridement (cm) - Width 0.7 -Post Debridement (cm) - Depth 0.1 -Total Square (Post) (cm) 1.68 -Area of Debridement (cm) - Length 2.4 -Area of Debridement (cm) - Width 0.7 -Total Square (Area) (cm) 1.68 -Tunneling No -Undermining/Tunneling No -Circular Undermining No -Wound/Ulcer Outcome Not Healed -Ulcer Cleansing Rinsed/ Irrigated with Saline -Foul Odor after Cleansing No -Bioengineered Tissue No -Bleeding Controlled with Pressure -Treatment Response Procedure Tolerated Well -Debridement - Subq, 1st 20sq cm Yes Pain Scale: 0-10 Numeric Is Patient Pain Free? Yes - Nurse 3 - General Ulcer D/C NN Start: 03/20/25 10:41 Freq: Status: Active Protocol: Activity Type Activity Date Activity User E-sign Co-sign Detail Recorded Client Recorded Date Recorded By Document 03/20/25 10:42 KW [id number] 03/20/25 10:56 KW Document 03/23/25 09:30 DL [id number] 03/23/25 09:31 DL 03/20/25 03/23/25 10:42 09:30 Pain Scale: 0-10 Numeric Is Patient Pain Free? Yes Yes Wound Care Center Nurse 3 #1 L Med Ankle -Ulcer Cleansing Soap and Water Rinsed/ Irrigated with Saline -Foul Odor after Cleansing No -Primary Dressing Applied NonAdherent Contact Layer -Other Dressing abran with moist abran adaptic -Primary Dressing Covered/Secured with Dry Gauze Dry Gauze -Other Covering padding to ant ankle -Wound Comment(s) pad around top of foot for comfort LLE -Multi-Layered Wrap Application Multi-Layer Multi-Layer Comp - Left ($) Comp - Left ($) -Multi-Layer Compression Left (Qty 1 1 applied) Treatment Response Procedure Tolerated Well WC - Visit Discharge Discharge Condition Stable Ambulatory Status Ambulatory Transportation Private Auto Assessment/Plan Assessment/Plan (1) Non-pressure chronic ulcer of left calf with fat layer exposed: CODE(S): L97.222 - Non-pressure chronic ulcer of left calf with fat layer exposed (2) Venous insufficiency (chronic) (peripheral): CODE(S): I87.2 - Venous insufficiency (chronic) (peripheral) (3) Venous stasis ulcer of ankle with fat [...] of left ankle with fat layer exposed (4) Bilateral lower extremity edema: CODE(S): R60.0 - Localized edema PLAN: Plan Patient seen and evaluated Predebridement measurement 2.3 cm x 0.6 cm x 0.1 cm Ulceration site underwent debridement as noted in the clinical panel above. Postdebridement measurement 2.4 cm x 0.7 cm x 0.1 cm. Abran was applied to thewound bed followed by Adaptic and 3M compression wrap to left lower extremity. He was instructed to keep dressings clean, dry, and intact to theleft lower extremity. There is reduction in size of ulceration versus previous visit with Adaptic aiding in discouraging skin tears upon dressing changes. Edema remains well- controlled with current compression therapy. Stat Doppler for 02/16/2025 [...] No signs of infection Pain: May take dmuc-zxz-wytaxym Tylenol Extra Strength for discomfort Host factors: Chronic venous insufficiency, chronic lower extremity edema, prolonged standing/activity, advanced age complicate healing. I answered all the patient's questions. To return to the wound healing center in 1 week or call sooner if the patient has any questions or concerns. 03/23/25 1251 Cosigner Signature (if applicable): CC: ~ Signed [facility]05-29-2025 Progress note Author Merrill Burns [facility] Note Date/Time March 16, 2025 9:40a m [facility] [address] [place] [address] Progress Note - Wound Care 03/16/25 0928 MR#: [id number] Acct: [id number] Name: WELLINGTON GONZALEZ Rep #:[id number] : 1945 80 From: Merrill machado DPM [...] Date Recorded By Document 02/16/25 09:21 KW [id number] 02/16/25 09:29 KW Document 02/20/25 08:53 KW [id number] 02/20/25 08:56 KW Document 02/23/25 09:23 KW [id number] 02/23/25 09:28 KW Document 02/27/25 11:24 ML [id number] 02/27/25 11:26 ML Document 03/02/25 13:52 RB [id number] 03/02/25 13:54 RB Document 03/06/25 10:58 GM [id number] 03/06/25 11:00 GM Document 03/09/25 08:56 KW [id number] 03/09/25 09:06 KW Document 03/14/25 11:06 KW [id number] 03/14/25 11:15 KW Document 03/16/25 08:50 JF [id number] 03/16/25 08:57 JF 02/16/25 02/20/25 02/23/25 09:21 08:53 09:23 [facility] Today's Visit Information Type of service Initial Visit Follow-up Visit Follow-up Visit (Physician/COFFEE SHOP ATTENDANT (Physician/COFFEE SHOP ATTENDANT ) ) Arrival Mode Ambulatory Ambulatory Ambulatory [...] Yes 02/27/25 03/02/25 03/06/25 11:24 13:52 10:58 [facility] Today's Visit Information Type of service Nurse-only Follow-up Visit Nurse-only Visit (Physician/COFFEE SHOP ATTENDANT Visit ) Arrival Mode Ambulatory Ambulatory Ambulatory [...] of service Follow-up Visit Nurse-only Follow-up Visit (Physician/COFFEE SHOP ATTENDANT Visit (Physician/COFFEE SHOP ATTENDANT ) ) Arrival Mode Ambulatory Ambulatory Ambulatory [...] Date Recorded By Document 02/16/25 09:21 KW [id number] 02/16/25 09:29 KW Document 02/23/25 09:23 KW [id number] 02/23/25 09:28 KW Document 03/02/25 13:52 RB [id number] 03/02/25 13:54 RB Document 03/09/25 08:56 KW [id number] 03/09/25 09:06 KW Document 03/16/25 08:50 JF [id number] 03/16/25 08:57 JF 02/16/25 02/23/25 03/02/25 09:21 [...] (67-100%) Small (1-33%) Large (67-100%) -Granulation Quality [place] -Slough/Fibrin Yes -Necrosis Amt Medium (34-66%) Large [...] Large (67-100%) Medium (34-66%) -Granulation Quality Red [place] -Slough/Fibrin Yes -Necrosis Amt Small (1-33%) -Necrotic [...] By Document 02/16/25 09:35 [facility] [id number] 02/16/25 09:42 BM Document 02/23/25 09:46 BM [id number] 02/23/25 09:48 BM Document 03/02/25 14:00 BMF [id number] 03/02/25 14:07 BM Document 03/09/25 09:22 BM [id number] 03/09/25 09:25 BM Document 03/16/25 09:05 [facility] [id number] 03/16/25 09:11 [facility] 02/16/25 02/23/25 [...] 2 #1 L Med Ankle -Time 09: 09:06 -Correct Patient Yes Yes -Correct Side, [...] Date Recorded By Document 02/16/25 11:47 RB [id number] 02/16/25 11:48 RB Document 02/20/25 08:53 KW [id number] 02/20/25 08:56 KW Document 02/23/25 09:57 DL [id number] 02/23/25 09:58 DL Document 02/27/25 11:24 ML [id number] 02/27/25 11:26 ML Document 03/02/25 14:17 DL [id number] 03/02/25 14:18 DL Document 03/06/25 10:58 GM [id number] 03/06/25 11:00 GM Document 03/09/25 09:31 BMF [id number] 03/09/25 09:32 BMF Document 03/14/25 11:06 KW [id number] 03/14/25 11:15 KW Document 03/16/25 09:22 DL [id number] 03/16/25 09:25 DL 02/16/25 02/20/25 02/23/25 11:47 [...] Ambulatory Status Ambulatory Ambulatory Ambulatory Transportation Private [employer] Auto Medication Reconcilliation completed & No No [...] Ambulatory Status Ambulatory Ambulatory Transportation Private Auto [employer] Auto Medication Reconcilliation completed & provided to [...] No signs of infection Pain: May take epqy-dab-mfsogui Tylenol Extra Strength for discomfort Host factors: Chronic venous insufficiency, chronic lower extremity edema, prolonged standing/activity, advanced age complicate healing. I answered all the patient's questions. To return to the wound healing center in 1 week or call sooner if the patient has any questions or concerns. 03/16/25 0953 <Electronically signed by Merrill Burns DPM> Cosigner Signature (if applicable): CC: ~ Signed [facility] Work Phone: 1(582) 500-394805-29-2025 Progress note [facility] [address] [place] [address] Progress Note - Wound Care 03/16/25 0928 MR#: [id number] Acct: [id number] Name: WELLINGTON GONZALEZ Rep #:[id number] : 1945 80 From: Merrill machado DPM [...] Date Recorded By Document 02/16/25 09:21 KW [id number] 02/16/25 09:29 KW Document 02/20/25 08:53 KW [id number] 02/20/25 08:56 KW Document 02/23/25 09:23 KW [id number] 02/23/25 09:28 KW Document 02/27/25 11:24 ML [id number] 02/27/25 11:26 ML Document 03/02/25 13:52 RB [id number] 03/02/25 13:54 RB Document 03/06/25 10:58 GM [id number] 03/06/25 11:00 GM Document 03/09/25 08:56 KW [id number] 03/09/25 09:06 KW Document 03/14/25 11:06 KW [id number] 03/14/25 11:15 KW Document 03/16/25 08:50 JF [id number] 03/16/25 08:57 JF 02/16/25 02/20/25 02/23/25 09:21 08:53 09:23 - Today's Visit Information Type of service Initial Visit Follow-up Visit Follow-up Visit (Physician/COFFEE SHOP ATTENDANT (Physician/COFFEE SHOP ATTENDANT ) ) Arrival Mode Ambulatory Ambulatory Ambulatory [...] of service Nurse-only Follow-up Visit Nurse-only Visit (Physician/COFFEE SHOP ATTENDANT Visit ) Arrival Mode Ambulatory Ambulatory Ambulatory [...] of service Follow-up Visit Nurse-only Follow-up Visit (Physician/COFFEE SHOP ATTENDANT Visit (Physician/COFFEE SHOP ATTENDANT ) ) Arrival Mode Ambulatory Ambulatory Ambulatory [...] Date Recorded By Document 02/16/25 09:21 KW [id number] 02/16/25 09:29 KW Document 02/23/25 09:23 KW [id number] 02/23/25 09:28 KW Document 03/02/25 13:52 RB [id number] 03/02/25 13:54 RB Document 03/09/25 08:56 KW [id number] 03/09/25 09:06 KW Document 03/16/25 08:50 JF [id number] 03/16/25 08:57 JF 02/16/25 02/23/25 03/02/25 09:21 [...] (67-100%) Small (1-33%) Large (67-100%) -Granulation Quality [place] -Slough/Fibrin Yes -Necrosis Amt Medium (34-66%) Large [...] Large (67-100%) Medium (34-66%) -Granulation Quality Red [place] -Slough/Fibrin Yes -Necrosis Amt Small (1-33%) -Necrotic [...] By Document 02/16/25 09:35 [facility] [id number] 02/16/25 09:42 [facility] Document 02/23/25 09:46 BM [id number] 02/23/25 09:48 BM Document 03/02/25 14:00 BM [id number] 03/02/25 14:07 BM Document 03/09/25 09:22 BMF [id number] 03/09/25 09:25 BMF Document 03/16/25 09:05 BMF [id number] 03/16/25 09:11 BMF 02/16/25 02/23/25 03/02/25 09:35 [...] 2 #1 L Med Ankle -Time 09: 09:06 -Correct Patient Yes Yes -Correct Side, [...] Date Recorded By Document 02/16/25 11:47 RB [id number] 02/16/25 11:48 RB Document 02/20/25 08:53 KW [id number] 02/20/25 08:56 KW Document 02/23/25 09:57 DL [id number] 02/23/25 09:58 DL Document 02/27/25 11:24 ML [id number] 02/27/25 11:26 ML Document 03/02/25 14:17 DL [id number] 03/02/25 14:18 DL Document 03/06/25 10:58 GM [id number] 03/06/25 11:00 GM Document 03/09/25 09:31 BMF [id number] 03/09/25 09:32 BMF Document 03/14/25 11:06 KW [id number] 03/14/25 11:15 KW Document 03/16/25 09:22 DL [id number] 03/16/25 09:25 DL 02/16/25 02/20/25 02/23/25 11:47 [...] Stable Ambulatory Status Ambulatory Ambulatory Transportation Private [employer] Medication Reconcilliation completed & provided to [...] No signs of infection Pain: May take jvgm-tbg-snurqsc Tylenol Extra Strength for discomfort Host factors: Chronic venous insufficiency, chronic lower extremity edema, prolonged standing/activity, advanced age complicate healing. I answered all the patient's questions. To return to the wound healing center in 1 week or call sooner if the patient has any questions or concerns. 03/16/25 09 Cosigner Signature (if applicable): CC: ~ Signed [facility]05-22-2025 Progress note Author Merrill Burns [facility] Note Date/Time March 09, 2025 9:31a m [facility] [address] [place] [address] Progress Note - Wound Care 03/09/25 0927 MR#: [id number] Acct: [id number] Name: WELLINGTON GONZALEZ Rep #:[id number] : 1945 80 From: Merrill machado DPM [...] Date Recorded By Document 02/16/25 09:21 KW [id number] 02/16/25 09:29 KW Document 02/20/25 08:53 KW [id number] 02/20/25 08:56 KW Document 02/23/25 09:23 KW [id number] 02/23/25 09:28 KW Document 02/27/25 11:24 ML [id number] 02/27/25 11:26 ML Document 03/02/25 13:52 RB [id number] 03/02/25 13:54 RB Document 03/06/25 10:58 GM [id number] 03/06/25 11:00 GM Document 03/09/25 08:56 KW [id number] 03/09/25 09:06 KW 02/16/25 02/20/25 02/23/25 09:21 08:53 09:23 - Today's Visit Information Type of service Initial Visit Follow-up Visit Follow-up Visit (Physician/COFFEE SHOP ATTENDANT (Physician/COFFEE SHOP ATTENDANT ) ) Arrival Mode Ambulatory Ambulatory Ambulatory [...] of service Nurse-only Follow-up Visit Nurse-only Visit (Physician/COFFEE SHOP ATTENDANT Visit ) Arrival Mode Ambulatory Ambulatory Ambulatory [...] Visit Information Type of service Follow-up Visit (Physician/COFFEE SHOP ATTENDANT ) Arrival Mode Ambulatory Transfer Assistance Patient [...] Date Recorded By Document 02/16/25 09:21 KW [id number] 02/16/25 09:29 KW Document 02/23/25 09:23 KW [id number] 02/23/25 09:28 KW Document 03/02/25 13:52 RB [id number] 03/02/25 13:54 RB Document 03/09/25 08:56 KW [id number] 03/09/25 09:06 KW 02/16/25 02/23/25 03/02/25 09:21 [...] (67-100%) Small (1-33%) Large (67-100%) -Granulation Quality [place] -Slough/Fibrin Yes -Necrosis Amt Medium (34-66%) Large [...] By Document 02/16/25 09:35 [facility] [id number] 02/16/25 09:42 BM Document 02/23/25 09:46 BM [id number] 02/23/25 09:48 BM Document 03/02/25 14:00 BM [id number] 03/02/25 14:07 BM Document 03/09/25 09:22 BMF [id number] 03/09/25 09:25 BMF 02/16/25 02/23/25 03/02/25 09:35 [...] Patient Pain Free? Yes WC - Nurse 3 - General Ulcer D/C NN Start: 02/16/25 09:17 Freq: Status: Active Protocol: Activity Type Activity Date Activity User E-sign Co-sign Detail Recorded Client Recorded Date Recorded By Document 02/16/25 11:47 RB [id number] 02/16/25 11:48 RB Document 02/20/25 08:53 KW [id number] 02/20/25 08:56 KW Document 02/23/25 09:57 DL [id number] 02/23/25 09:58 DL Document 02/27/25 11:24 ML [id number] 02/27/25 11:26 ML Document 03/02/25 14:17 DL [id number] 03/02/25 14:18 DL Document 03/06/25 10:58 GM [id number] 03/06/25 11:00 GM 02/16/25 02/20/25 02/23/25 11:47 [...] No signs of infection Pain: May take itgm-lpi-youhxjj Tylenol Extra Strength for discomfort Host factors: Chronic venous insufficiency, chronic lower extremity edema, prolonged standing/activity, advanced age complicate healing. I answered all the patient's questions. To return to the wound healing center in 1 week or call sooner if the patient has any questions or concerns. 03/09/25930 <Electronically signed by Merrill Burns DPM> Cosigner Signature (if applicable): CC: ~ Signed [facility] Work Phone: 1(481) 558-366705-22-2025 Progress note [facility] [address] [place] [address] Progress Note - Wound Care 03/09/25926 MR#: [id number] Acct: [id number] Name: WELLINGTON GONZALEZ Rep #:[id number] : 1945 80 From: Merrill machado DPM [...] Date Recorded By Document 02/16/25 09:21 KW [id number] 02/16/25 09:29 KW Document 02/20/25 08:53 KW [id number] 02/20/25 08:56 KW Document 02/23/25 09:23 KW [id number] 02/23/25 09:28 KW Document 02/27/25 11:24 ML [id number] 02/27/25 11:26 ML Document 03/02/25 13:52 RB [id number] 03/02/25 13:54 RB Document 03/06/25 10:58 GM [id number] 03/06/25 11:00 GM Document 03/09/25 08:56 KW [id number] 03/09/25 09:06 KW 02/16/25 02/20/25 02/23/25 09:21 08:53 09:23 WC - Today's Visit Information Type of service Initial Visit Follow-up Visit Follow-up Visit (Physician/COFFEE SHOP ATTENDANT (Physician/COFFEE SHOP ATTENDANT ) ) Arrival Mode Ambulatory Ambulatory Ambulatory [...] of service Nurse-only Follow-up Visit Nurse-only Visit (Physician/COFFEE SHOP ATTENDANT Visit ) Arrival Mode Ambulatory Ambulatory Ambulatory [...] Visit Information Type of service Follow-up Visit (Physician/COFFEE SHOP ATTENDANT ) Arrival Mode Ambulatory Transfer Assistance Patient [...] Date Recorded By Document 02/16/25 09:21 KW [id number] 02/16/25 09:29 KW Document 02/23/25 09:23 KW [id number] 02/23/25 09:28 KW Document 03/02/25 13:52 RB [id number] 03/02/25 13:54 RB Document 03/09/25 08:56 KW [id number] 03/09/25 09:06 KW 02/16/25 02/23/25 03/02/25 09:21 [...] (67-100%) Small (1-33%) Large (67-100%) -Granulation Quality [place] -Slough/Fibrin Yes -Necrosis Amt Medium (34-66%) Large [...] Date Recorded By Document 02/16/25 09:35 BM [id number] 02/16/25 09:42 BM Document 02/23/25 09:46 BM [id number] 02/23/25 09:48 BM Document 03/02/25 14:00 BM [id number] 03/02/25 14:07 BM Document 03/09/25 09:22 BMF [id number] 03/09/25 09:25 BMF 02/16/25 02/23/25 03/02/25 09:35 09:46 14:00 Wound Center Nurse 2 #1 L [facility] Ankle -Time 09:46 14:00 -Correct Patient Yes Yes Yes [...] 09:22 Wound Center Nurse 2 #1 L [facility] Ankle -Time 09:22 -Correct Patient Yes -Correct [...] Patient Pain Free? Yes WC - Nurse 3 - General Ulcer D/C NN Start: 02/16/25 09:17 Freq: Status: Active Protocol: Activity Type Activity Date Activity User E-sign Co-sign Detail Recorded Client Recorded Date Recorded By Document 02/16/25 11:47 RB [id number] 02/16/25 11:48 RB Document 02/20/25 08:53 KW [id number] 02/20/25 08:56 KW Document 02/23/25 09:57 DL [id number] 02/23/25 09:58 DL Document 02/27/25 11:24 ML [id number] 02/27/25 11:26 ML Document 03/02/25 14:17 DL [id number] 03/02/25 14:18 DL Document 03/06/25 10:58 GM [id number] 03/06/25 11:00 GM 02/16/25 02/20/25 02/23/25 11:47 [...] No signs of infection Pain: May take mvbu-xhv-uavljgf Tylenol Extra Strength for discomfort Host factors: Chronic venous insufficiency, chronic lower extremity edema, prolonged standing/activity, advanced age complicate healing. I answered all the patient's questions. To return to the wound healing center in 1 week or call sooner if the patient has any questions or concerns. 03/09/25 0931 Cosigner Signature (if applicable): CC: ~ Signed [facility]05-17-2025 History and physical note Author Jose L Nagel [facility] Note Date/Time March 04, 2025 7:19p m [facility] [address] [place] [address] H&P Exam - Wound Care 03/04/25 1851 MR#: [id number] Acct: [id number] Name: WELLINGTON GONZALEZ Rep #:[id number] : 1945 80 From: Jose L Fernando PCP: Dr. Randa Joseph, DO Status:PRE CLI Location: [facility] History of Present Illness Date of Service: [...] of skin. Denies N/V/F/chills. No further complaints. [facility] Medical History Non-pressure chronic ulcer of ankle [...] 0.4 mg PO QHS Enlarged prost ate 07/12/1724 History ergocalciferol (vitamin D2) 1,250 50,000 unit [...] denosumab 60 mg/mL subcutaneous 60 mg subcut [id number] 10/04/24 Unknown History syringe (Prolia) diclofenac potassium [...] Date Recorded By Document 02/16/25 09:21 KW [id number] 02/16/25 09:29 KW Document 02/20/25 08:53 KW [id number] 02/20/25 08:56 KW Document 02/23/25 09:23 KW [id number] 02/23/25 09:28 KW 02/16/25 02/20/25 02/23/25 09:21 08:53 09:23 - Today's Visit Information Type of service Initial Visit Follow-up Visit Follow-up Visit (Physician/COFFEE SHOP ATTENDANT (Physician/COFFEE SHOP ATTENDANT ) ) Arrival Mode Ambulatory Ambulatory Ambulatory [...] Date Recorded By Document 02/16/25 09:21 KW [id number] 02/16/25 09:29 KW Document 02/23/25 09:23 KW [id number] 02/23/25 09:28 KW 02/16/25 02/23/25 09:21 09:23 [...] Amt Large (67-100%) Small (1-33%) -Granulation Quality [place] -Necrosis Amt Medium (34-66%) Large (67-100%) -Necrotic [...] By Document 02/16/25 09:35 [facility] [id number] 02/16/25 09:42 [facility] Document 02/23/25 09:46 [facility] [id number] 02/23/25 09:48 [facility] 02/16/25 02/23/25 [...] Date Recorded By Document 02/16/25 11:47 RB [id number] 02/16/25 11:48 RB Document 02/20/25 08:53 KW [id number] 02/20/25 08:56 KW Document 02/23/25 09:57 DL [id number] 02/23/25 09:58 DL 02/16/25 02/20/25 02/23/25 11:47 [...] Multi Select Codes Visit Charges Office Visit/Consults: 10512 OV L4 New 45 min Integumentary Integumentary CPT Codes: 18680 Merle subq tissue 20 sq cm/< Assessment/Plan [...] Cosigner Signature (if applicable): CC: ~ Signed [facility] Work Phone: 1(507) 924-911005-17-2025 History and physical note [facility] [address] [place] [address] H&P Exam - Wound Care 03/04/25 1851 MR#: [id number] Acct: [id number] Name: WELLINGTON GONZALEZ Allison Rep #:[id number] : 1945 80 From: oJse L Fernando PCP: Dr. Randa Joseph, DO Status:PRE CLI Location: [facility] History of Present Illness Date of Service: [...] of skin. Denies N/V/F/chills. No further complaints. [facility] Medical History Non-pressure chronic ulcer of ankle [...] denosumab 60 mg/mL subcutaneous 60 mg subcut [id number] 10/04/24 Unknown History syringe (Prolia) diclofenac potassium [...] of hernia repair History of spinal surgery (~2016) History of repair of hip fracture History [...] Date Recorded By Document 02/16/25 09:21 KW [id number] 02/16/25 09:29 KW Document 02/20/25 08:53 KW [id number] 02/20/25 08:56 KW Document 02/23/25 09:23 KW [id number] 02/23/25 09:28 KW 02/16/25 02/20/25 02/23/25 09:21 08:53 09:23 - Today's Visit Information Type of service Initial Visit Follow-up Visit Follow-up Visit (Physician/COFFEE SHOP ATTENDANT (Physician/COFFEE SHOP ATTENDANT ) ) Arrival Mode Ambulatory Ambulatory Ambulatory [...] Date Recorded By Document 02/16/25 09:21 KW [id number] 02/16/25 09:29 KW Document 02/23/25 09:23 KW [id number] 02/23/25 09:28 KW 02/16/25 02/23/25 09:21 09:23 [...] Amt Large (67-100%) Small (1-33%) -Granulation Quality [place] -Necrosis Amt Medium (34-66%) Large (67-100%) -Necrotic [...] By Document 02/16/25 09:35 [facility] [id number] 02/16/25 09:42 [facility] Document 02/23/25 09:46 [facility] [id number] 02/23/25 09:48 [facility] 02/16/25 02/23/25 [...] Date Recorded By Document 02/16/25 11:47 RB [id number] 02/16/25 11:48 RB Document 02/20/25 08:53 KW [id number] 02/20/25 08:56 KW Document 02/23/25 09:57 DL [id number] 02/23/25 09:58 DL 02/16/25 02/20/25 02/23/25 11:47 [...] Multi Select Codes Visit Charges Office Visit/Consults: 01050 OV L4 New 45 min Integumentary Integumentary CPT Codes: 47800 Merle subq tissue 20 sq cm/< Assessment/Plan [...] Cosigner Signature (if applicable): CC: ~ Signed [facility]05-14-2025 Evaluation note* Diagnosis Onset Date Resolution Status Admit Date Bilateral lower extremity edema acut e March 01, 2025 9:17am 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 March 01, 2025 9:17am Venous insufficiency (chroni c) (peripheral) chronic March 01, 2025 9 :17am Bilateral lower extremity edema acut e March 14, 2025 9:51am History of cholecystectomy acute March 14, 2025 9:51am History of hernia repair acute March 14, 2025 9:51am History of repair of hip fracture ac [place] March 14, 2025 9:51am History of spinal surgery acute March 14, 2025 9:51am Non-pressure chronic ulcer o f ankle with fat layer exposed acute March 14, 2025 9:51am Ulcer of extremity due to ch ronic venous insufficiency acute March 14, 2 025 9:51am 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 acute March 14, 2025 9:51am Asthma chronic March 14, 2025 9:51am GERD (gastroesophageal reflu x disease) chronic March 14, 2025 9 :51am JOSHUA (obstructive sleep apnea) chroni c March 14, 2025 9:51am Bilateral lower extremity edema acut e March 16, 2025 9:00am Ulcer of extremity due to ch ronic venous insufficiency acute March 16, 2 025 9:00am 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 March 16, 2025 9:00am Solitary pulmonary nodule acute March 28, 2025 9:21am JOSHUA (obstructive sleep apnea) chroni c March 28, 2025 9:21am Restless leg syndrome chronic Mar 9:21am Severe persistent asthma, uncomplicated chronic March 28, 2025 9:21am Bilateral lower extremity edema acut e April 12, 2025 3:00pm 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 acute April 12 3:00pm 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 April 12, 2025 3:00pm Venous insufficiency (chroni c) (peripheral) chronic April 12, 2025 3:00pm 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 acute April 13 7:10am [facility] Work Phone: 1(718) 457-639905-14-2025 Evaluation note* Diagnosis Onset Date Resolution Status Admit Date Bilateral lower extremity edema acut e March 01, 2025 9:17am 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 March 01, 2025 9:17am Venous insufficiency (chroni c) (peripheral) chronic March 01, 2025 9 :17am Bilateral lower extremity edema acut e March 14, 2025 9:51am History of cholecystectomy acute March 14, 2025 9:51am History of hernia repair acute March 14, 2025 9:51am History of repair of hip fracture ac [place] March 14, 2025 9:51am History of spinal surgery acute March 14, 2025 9:51am Non-pressure chronic ulcer o f ankle with fat layer exposed acute March 14, 2025 9:51am Ulcer of extremity due to ch ronic venous insufficiency acute March 14, 025 9:51am 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 acute March 14, 2025 9:51am Asthma chronic March 14, 2025 9:51am GERD (gastroesophageal reflu x disease) chronic March 14, 2025 9 :51am JOSHUA (obstructive sleep apnea) chroni c March 14, 2025 9:51am Bilateral lower extremity edema acut e March 16, 2025 9:00am Ulcer of extremity due to ch ronic venous insufficiency acute March 16, 2 025 9:00am 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 March 16, 2025 9:00am Solitary pulmonary nodule acute March 28, 2025 9:21am JOSHUA (obstructive sleep apnea) chroni c March 28, 2025 9:21am Restless leg syndrome chronic Mar 9:21am Severe persistent asthma, uncomplicated chronic March 28, 2025 9:21am Bilateral lower extremity edema acut e April 12, 2025 3:00pm 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 acute April 12 3:00pm 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 April 12, 2025 3:00pm Venous insufficiency (chroni c) (peripheral) chronic April 12, 2025 3:00pm 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 acute April 13 7:10am Bilateral lower extremity edema acut e April 20, 2025 8:46am 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 acute April 20, 2025 8:46am 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 April 20, 2025 8:46am Venous insufficiency (chroni c) (peripheral) chronic April 20, 2025 8 :46am [facility] Work Phone: 1(528) 878-633305-14-2025 Evaluation note* Diagnosis Onset Date Resolution Status Admit Date Bilateral lower extremity edema acut e March 01, 2025 9:17am 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 March 01, 2025 9:17am Venous insufficiency (chroni c) (peripheral) chronic March 01, 2025 9 :17am Bilateral lower extremity edema acut e March 14, 2025 9:51am History of cholecystectomy acute March 14, 2025 9:51am History of hernia repair acute March 14, 2025 9:51am History of repair of hip fracture ac [place] March 14, 2025 9:51am History of spinal surgery acute March 14, 2025 9:51am Non-pressure chronic ulcer o f ankle with fat layer exposed acute March 14, 2025 9:51am Ulcer of extremity due to ch ronic venous insufficiency acute March 14, 025 9:51am 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 acute March 14, 2025 9:51am Asthma chronic March 14, 2025 9:51am GERD (gastroesophageal reflu x disease) chronic March 14, 2025 9 :51am JOSHUA (obstructive sleep apnea) chroni c March 14, 2025 9:51am Bilateral lower extremity edema acut e March 16, 2025 9:00am Ulcer of extremity due to ch ronic venous insufficiency acute March 16, 025 9:00am 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 March 16, 2025 9:00am Solitary pulmonary nodule acute March 28, 2025 9:21am JOSHUA (obstructive sleep apnea) chroni c March 28, 2025 9:21am Restless leg syndrome chronic Mar 9:21am Severe persistent asthma, uncomplicated chronic March 28, 2025 9:21am Bilateral lower extremity edema acut e April 12, 2025 3:00pm 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 acute April 12 3:00pm 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 April 12, 2025 3:00pm Venous insufficiency (chroni c) (peripheral) chronic April 12, 2025 3:00pm 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 acute April 13 7:10am Bilateral lower extremity edema acut e April 26, 2025 10:44am 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 April 26, 2025 10:44am Venous insufficiency (chroni c) (peripheral) chronic April 26, 2025 1 0:44am Bilateral lower extremity edema acut e May 15, 2025 3:00pm 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 acute May 15 3:00pm 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 May 15, 2025 3:00pm Venous insufficiency (chroni c) (peripheral) chronic May 15, 2025 3:00pm [facility] Work Phone: 1(539) 753-204205-14-2025 Evaluation note* Diagnosis Onset Date Resolution Status Admit Date Bilateral lower extremity edema acut e March 01, 2025 9:17am 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 March 01, 2025 9:17am Venous insufficiency (chroni c) (peripheral) chronic March 01, 2025 9 :17am Bilateral lower extremity edema acut e March 14, 2025 9:51am History of cholecystectomy acute March 14, 2025 9:51am History of hernia repair acute March 14, 2025 9:51am History of repair of hip fracture ac [place] March 14, 2025 9:51am History of spinal surgery acute March 14, 2025 9:51am Non-pressure chronic ulcer o f ankle with fat layer exposed acute March 14, 2025 9:51am Ulcer of extremity due to ch ronic venous insufficiency acute March 14, 2 025 9:51am 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 acute March 14, 2025 9:51am Asthma chronic March 14, 2025 9:51am GERD (gastroesophageal reflu x disease) chronic March 14, 2025 9 :51am JOSHUA (obstructive sleep apnea) chroni c March 14, 2025 9:51am Bilateral lower extremity edema acut e March 16, 2025 9:00am Ulcer of extremity due to ch ronic venous insufficiency acute March 16, 2 025 9:00am 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 March 16, 2025 9:00am Solitary pulmonary nodule acute March 28, 2025 9:21am JOSHUA (obstructive sleep apnea) chroni c March 28, 2025 9:21am Restless leg syndrome chronic Mar 9:21am Severe persistent asthma, uncomplicated chronic March 28, 2025 9:21am Bilateral lower extremity edema acut e April 12, 2025 3:00pm 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 acute April 12 3:00pm 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 April 12, 2025 3:00pm Venous insufficiency (chroni c) (peripheral) chronic April 12, 2025 3:00pm 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 acute April 13 7:10am Bilateral lower extremity edema acut e April 26, 2025 10:44am 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 April 26, 2025 10:44am Venous insufficiency (chroni c) (peripheral) chronic April 26, 2025 1 0:44am Bilateral lower extremity edema acut e May 18, 2025 3:11pm 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 acute May 18 3:11pm 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 May 18, 2025 3:11pm Venous insufficiency (chroni c) (peripheral) chronic May 18, 2025 3:11pm [facility] Work Phone: 1(976) 677-901405-14-2025 Evaluation note* Diagnosis Onset Date Resolution Status Admit Date Bilateral lower extremity edema acut e March 01, 2025 9:17am 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 March 01, 2025 9:17am Venous insufficiency (chroni c) (peripheral) chronic March [...] fat layer exposed chronic March 16, 2025 9:00am Solitary pulmonary nodule acute March 28, 2025 9:21am JOSHUA (obstructive sleep apnea) chroni c March 28, 2025 9:21am Restless leg syndrome chronic Mar 9:21am Severe persistent asthma, uncomplicated chronic March 28, 2025 9:21am Bilateral lower extremity edema acut e April 12, 2025 3:00pm 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 acute March 3:00pm 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 April 12, 2025 3:00pm Venous insufficiency (chroni c) (peripheral) chronic April 12, 2025 3:00pm 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 acute March 7:10am Bilateral lower extremity edema acut e April 26, 2025 10:44am 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 April 26, 2025 10:44am Venous insufficiency (chroni c) (peripheral) chronic April 26, 2025 1 0:44am Bilateral lower extremity edema acut e May 18, 2025 3:11pm 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 acute April 3:11pm 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 May 18, 2025 3:11pm Venous insufficiency (chroni c) (peripheral) chronic May 18, 2025 3:11pm Bilateral lower extremity edema acut e Manito 28th, 2025 9:15am Cellulitis of left lower limb acute June 15, 2025 9:15am 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 acute June 152024 9:15am 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 June 15, 2025 9:15am Venous insufficiency (chroni c) (peripheral) chronic June 15 9:15am [facility] Work Phone: 1(314) 749-151805-08-2025 Progress note Author Merrill Burns [facility] Note Date/Time February 23, 2025 11:22a m [facility] [address] [place] [address] Progress Note - Wound Care 02/23/25 1118 MR#: [id number] Acct: [id number] Name: WELLINGTON GONZLAEZ Rep #:[id number] : 1945 80 From: Merrill machado DPM [...] 02/16/25 09:17 Freq: Status: Active Protocol: LA NENA.SHREYAT Activity Type Activity Date Activity User E-sign Co-sign Detail Recorded Client Recorded Date Recorded By Document 02/16/25 09:21 KW [id number] 02/16/25 09:29 KW Document 02/20/25 08:53 KW [id number] 02/20/25 08:56 KW Document 02/23/25 09:23 KW [id number] 02/23/25 09:28 KW 02/16/25 02/20/25 02/23/25 09:21 08:53 09:23 - Today's Visit Information Type of service Initial Visit Follow-up Visit Follow-up Visit (Physician/COFFEE SHOP ATTENDANT (Physician/COFFEE SHOP ATTENDANT ) ) Arrival Mode Ambulatory Ambulatory Ambulatory [...] Date Recorded By Document 02/16/25 09:21 KW [id number] 02/16/25 09:29 KW Document 02/23/25 09:23 KW [id number] 02/23/25 09:28 KW 02/16/25 02/23/25 09:21 09:23 [...] Amt Large (67-100%) Small (1-33%) -Granulation Quality [place] -Necrosis Amt Medium (34-66%) Large (67-100%) -Necrotic [...] By Document 02/16/25 09:35 [facility] [id number] 02/16/25 09:42 BM Document 02/23/25 09:46 [facility] [id number] 02/23/25 09:48 [facility] 02/16/25 02/23/25 [...] Date Recorded By Document 02/16/25 11:47 RB [id number] 02/16/25 11:48 RB Document 02/20/25 08:53 KW [id number] 02/20/25 08:56 KW Document 02/23/25 09:57 DL [id number] 02/23/25 09:58 DL 02/16/25 02/20/25 02/23/25 11:47 [...] No signs of infection Pain: May take izqj-fbv-fnexxtj Tylenol Extra Strength for discomfort Host factors: [...] Cosigner Signature (if applicable): CC: ~ Signed [facility] Work Phone: 1(237) 888-648405-08-2025 Progress note [facility] [address] [place] [address] Progress Note - Wound Care 02/23/25 1118 MR#: [id number] Acct: [id number] Name: WELLINGTON GONZALEZ Rep #:[id number] : 1945 80 From: Merrill machado DPM [...] Date Recorded By Document 02/16/25 09:21 KW [id number] 02/16/25 09:29 KW Document 02/20/25 08:53 KW [id number] 02/20/25 08:56 KW Document 02/23/25 09:23 KW [id number] 02/23/25 09:28 KW 02/16/25 02/20/25 02/23/25 09:21 08:53 09:23 - Today's Visit Information Type of service Initial Visit Follow-up Visit Follow-up Visit (Physician/COFFEE SHOP ATTENDANT (Physician/COFFEE SHOP ATTENDANT ) ) Arrival Mode Ambulatory Ambulatory Ambulatory [...] Date Recorded By Document 02/16/25 09:21 KW [id number] 02/16/25 09:29 KW Document 02/23/25 09:23 KW [id number] 02/23/25 09:28 KW 02/16/25 02/23/25 09:21 09:23 [...] Amt Large (67-100%) Small (1-33%) -Granulation Quality [place] -Necrosis Amt Medium (34-66%) Large (67-100%) -Necrotic [...] By Document 02/16/25 09:35 [facility] [id number] 02/16/25 09:42 [facility] Document 02/23/25 09:46 [facility] [id number] 02/23/25 09:48 [facility] 02/16/25 02/23/25 [...] Date Recorded By Document 02/16/25 11:47 RB [id number] 02/16/25 11:48 RB Document 02/20/25 08:53 KW [id number] 02/20/25 08:56 KW Document 02/23/25 09:57 DL [id number] 02/23/25 09:58 DL 02/16/25 02/20/25 02/23/25 11:47 [...] No signs of infection Pain: May take poxi-oes-cmdpoic Tylenol Extra Strength for discomfort Host factors: Chronic venous insufficiency, chronic lower extremity edema, prolonged standing/activity, advanced age complicate healing. I answered all the patient's questions. To return to the wound healing center in [address] Nagel for courtesy visit or call sooner if the patient has any questions or concerns. 02/23/25 1122 Cosigner Signature (if applicable): CC: ~ Signed [facility]05-01-2025 History and physical note Author Merrill Burns [facility] Note Date/Time February 16, 2025 1:54pm [facility] [address] [place] [address] H&P Exam - Wound Care 02/16/25 1339 MR#: [id number] Acct: [id number] Name: WELLINGTON GONZALEZ Rep #:[id number] : 1945 79 From: Merrill machado DPM [...] of skin. Denies N/V/F/chills. No further complaints. [facility] Medical History JOSHUA (obstructive sleep apnea) History [...] denosumab 60 mg/mL subcutaneous 60 mg subcut [id number] 10/04/24 Unknown History syringe (Prolia) diclofenac potassium [...] Recorded Date Recorded By Document 02/16/25 09:21 [id number] 02/16/25 09:29 KW 02/16/25 09:21 - Today's [...] Recorded Date Recorded By Document 02/16/25 09:21 [id number] 02/16/25 09:29 02/16/25 09:21 Wound Center Nurse 1 #1 L Med Ankle -Current Size (cm) - Length 1 -Current Size (cm) - Width 0.5 -Current Size (cm) - Depth 0.2 -Total Square Cm 0.5 -Date of Last Picture (Recall this 02/16/25 field) -Exudate Amt Small -Exudate Type Serosanguineous -Wound Margin Distinct, Outline Attached -Granulation Amt Large (67-100%) -Granulation Quality [place] -Necrosis Amt Medium (34-66%) -Necrotic Tissue Type [...] By Document 02/16/25 09:35 [facility] [id number] 02/16/25 09:42 [facility] 02/16/25 09:35 [...] Date Recorded By Document 02/16/25 11:47 RB [id number] 02/16/25 11:48 RB 02/16/25 11:47 Wound Care [...] No signs of infection Pain: May take hpcu-gcf-vxlasrh Tylenol Extra Strength for discomfort Host factors: Chronic venous insufficiency, chronic lower extremity edema, prolonged standing/activity, advanced age complicate healing. I answered all the patient's questions. To return to the wound healing center in 1 week or call sooner if the patient has any questions or concerns. 02/16/25 3696 <Electronically signed by Merrill Burns DPM> Cosigner Signature (if applicable): CC: ~ Signed [facility] Work Phone: 1(900) 448-149405-01-2025 History and physical note [facility] [address] [place] [address] H&P Exam - Wound Care 02/16/25 1339 MR#: [id number] Acct: [id number] Name: WELLINGTON GONZALEZ Rep #:[id number] : 1945 79 From: Merrill machado DPM [...] of skin. Denies N/V/F/chills. No further complaints. [facility] Medical History JOSHUA (obstructive sleep apnea) History [...] denosumab 60 mg/mL subcutaneous 60 mg subcut [id number] 10/04/24 Unknown History syringe (Prolia) diclofenac potassium [...] Date Recorded By Document 02/16/25 09:21 KW [id number] 02/16/25 09:29 KW 02/16/25 09:21 WC - Today's Visit Information Type [...] Date Recorded By Document 02/16/25 09:21 KW [id number] 02/16/25 09:29 KW 02/16/25 09:21 Wound Center Nurse 1 #1 L Med Ankle -Current Size (cm) - Length 1 -Current Size (cm) - Width 0.5 -Current Size (cm) - Depth 0.2 -Total Square Cm 0.5 -Date of Last Picture (Recall this 02/16/25 field) -Exudate Amt Small -Exudate Type Serosanguineous -Wound Margin Distinct, Outline Attached -Granulation Amt Large (67-100%) -Granulation Quality [place] -Necrosis Amt Medium (34-66%) -Necrotic Tissue Type [...] By Document 02/16/25 09:35 [facility] [id number] 02/16/25 09:42 [facility] 02/16/25 09:35 [...] Patient Pain Free? Yes WC - Nurse 3 - General Ulcer D/C NN Start: 02/16/25 09:17 Freq: Status: Active Protocol: Activity Type Activity Date Activity User E-sign Co-sign Detail Recorded Client Recorded Date Recorded By Document 02/16/25 11:47 RB [id number] 02/16/25 11:48 RB 02/16/25 11:47 Wound Care [...] No signs of infection Pain: May take tjcf-jkd-rbxhklq Tylenol Extra Strength for discomfort Host factors: Chronic venous insufficiency, chronic lower extremity edema, prolonged standing/activity, advanced age complicate healing. I answered all the patient's questions. To return to the wound healing center in 1 week or call sooner if the patient has any questions or concerns. 02/16/25 1354 Cosigner Signature (if applicable): CC: ~ Signed [facility]03-12-2025 Discharge summary Author Joan Muñoz [facility] Note Date/Time December 28, 2024 10: 11am [facility] [address] [place] [address]. [address] [place] [address] / REHABILITATION SERVICES DISCHARGE SUMMARY MR#: [id number] Acct: [id number] Name: WELLINGTON GONZALEZ Rep #: [id number] : 1945 79 From: Joan Renteria Referring DrFranky: Dr. Randa Joseph, DO Status: REG RCR Insurance: MEDICARE PART A B [employer] [facility] Discharge Summary D/C summary: It has [...] Progress: Progressing Plan Plan: DC PT to [facility] and back to about his neck. D/C Information Discharge Comments: DC PT to [facility] d/c sentence: If there are questions or concerns regarding this patient's physical therapy, please feel free to call me at [phone]. Thank you for the referral of thispatient. Sincerely, Joan Muñoz, MPT Balance/Gait/Functional tests Balance/Special Test Scores Quick DASH Score: 25.0000 Improvement % Improvement: 60 <Electronically signed by Joan Muñoz MPT> 12/28/24 1011 CC: Dr. Randa Joseph DO ~ Signed [facility] Work Phone: 1(647) 118-614403-12-2025 Discharge summary [facility] [address] [place] [address] / REHABILITATION SERVICES DISCHARGE SUMMARY MR#: [id number] Acct: [id number] Name: WELLINGTON GONZALEZ Rep #: [id number] : 1945 79 From: Joan Muñoz MP T Referring Dr.: Dr. Randa Joseph DO Status: REG RCR Insurance: MEDICARE PART A B [employer] Discharge Summary D/C summary: It has been [...] please feel free to call me at [phone]. Thank you for the referral of thispatient. Sincerely, Joan Muñoz, MPT Balance/Gait/Functional tests Balance/Special Test Scores Quick DASH Score: 25.0000 Improvement % Improvement: 60 12/28/24 1011 CC: Dr. Randa Joseph, DO ~ Signed [facility]02-19-2025 Evaluation note* Diagnosis Onset Date Resolution [...] exposed chronic February 27, 2025 1 1:00am [facility] Work Phone: [phone]) [phone] Evaluation note* Diagnosis Onset Date Resolution Status [...] exposed chronic March 16, 2025 9 :00am [facility] Work Phone: 1(294) 466-703302-19-2025 Evaluation note* Diagnosis Onset Date Resolution Status Admit Date Solitary pulmonary nodule acute December 07, 2024 10:00am JOSHUA (obstructive sleep apnea) chroni c December 07, 2024 10:00am Severe persistent asthma, uncomplicated chronic December 07, 2 025 10:00am Bilateral lower extremity edema acut [...] asthma, uncomplicated chronic March 28, 2025 9:21am [facility] Work Phone: 1(330) 636-902402-19-2025 Evaluation note* Diagnosis Onset Date Resolution Status Admit Date Solitary pulmonary nodule acute December 07, 2024 10:00am JOSHUA (obstructive sleep apnea) chroni c December 07, 2024 10:00am Severe persistent asthma, uncomplicated chronic December 07, 2 025 10:00am Bilateral lower extremity edema acut [...] asthma, uncomplicated chronic March 28, 2025 9:21am [facility] Work Phone: 1(961) 471-744312-17-2024 Evaluation note* Diagnosis Onset Date Resolution Status Admit Date JOSHUA (obstructive sleep apnea) chroni c October 04, 2024 9:32am Severe persistent asthma, uncomplicated chronic October 04, 2 024 9:32am Solitary pulmonary nodule acute December 07, 2024 10:00am JOSHUA (obstructive sleep apnea) chroni c December 07, 2024 10:00am Severe persistent asthma, uncomplicated chronic December 07, 2 025 10:00am [facility] Work Phone: 1(172) 383-975810-21-2024 NoteHNO ID: [id number] Author: JAQUI FELTON APRN.COFFEE SHOP ATTENDANT Service: ? 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- [place] PAST SURGICAL HISTORY OF several eye surgeries, [...] injury Dictated by : MD Jaqui CHAVARRIA APRN.COFFEE SHOP ATTENDANT [facility] History of Present illness Narrative* Casey Mckeon, RT(R) - 08/08/2024 11:50 AM EDT Radiology [...] PATIENT PRESENTS WITH AN IMPLANTABLE OR ATTACHED GETTER OPERATOR: No RADIOLOGY DEPARTMENT: General X-ray: Exam(s) Completed: Upper Extremity X- Ray(s): Shoulder, AP / TRUE AP / AXILLARY right PERIPHERAL IV DATA: Not applicable SIGNED BY: RT Sy(Gavino) August 08, 2024 11:48 AM [facility]24 NoteHNO ID: [id number] Author: CASEY MCKEON RT (R) Service: Radiology Author Type: Technologist Type: Progress [...] PATIENT PRESENTS WITH AN IMPLANTABLE OR ATTACHED GETTER OPERATOR: No RADIOLOGY DEPARTMENT: General X-ray: Exam(s) Completed: Upper Extremity X-Ray(s): Shoulder, AP / TRUE AP / AXILLARY right PERIPHERAL IV DATA: Not applicable SIGNED BY: RT Sy(Gavino) August 08, 2024 11:[address] [facility]05-21-2024 NoteHNO ID: [id number] Author: YAEL NAIR APRN.COFFEE SHOP ATTENDANT Service: ? Author Type: Nurse Practitioner Type: [...] Denies diabetes He states he had a quality control engineering technician years ago, but cannot remember name Denies fever or chills The history is provided by the patient. No building services technician was used. 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 Subjective Wellington Gonzalez is a 79 year old male. 79 year old male with PMH RLS, CAD, asthma, JOSHUA, celiac, GERD, and history of venous insufficiency presents for toenail complaints. Acute onset this past week Right great toe States his toenail was snagged on a sock Now is almost completely off. 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 No building services technician was used. 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- [place] PAST SURGICAL HISTORY OF several eye surgeries, [...] can't wait any longer He remembers a quality control engineering technician he has seen in past and going to their office now Yael Nair APRN.COFFEE SHOP ATTENDANT [facility] Progress note Author Merrill Burns [facility] February 04, 2024 9:46am Note Date/Time February 04, 2024 9:4 6am [facility] [address] [place] [address] [place] [address] Progress Note - Wound Care 02/04/24 0941 MR#: [id number] Acct: [id number] Name: WELLINGTON GONZALEZ Rep #:[id number] : 1945 78 From: Merrill machado DPM [...] reevaluation of the site priorto leaving for [place] for next 2 weeks to aid in [...] 01/18/24 08:06 Freq: Status: Active Protocol: LA NENA.LOWSANJANAT Activity Type Activity Date Activity User E-sign Co-sign Detail Recorded Client Recorded Date Recorded By Document 01/21/24 09:33 DL Desktop 01/21/24 09:39 DL Document 01/28/24 08:29 KW Desktop 01/28/24 08:37 KW Document 02/04/24 08:35 DL Desktop 02/04/24 08:39 DL 01/21/24 01/28/24 02/04/24 09:33 08:29 08:35 - Today's Visit Information Type of service Follow-up Visit Follow-up Visit Follow-up Visit (Physician/COFFEE SHOP ATTENDANT (Physician/COFFEE SHOP ATTENDANT (Physician/COFFEE SHOP ATTENDANT ) ) ) Arrival Mode Ambulatory Ambulatory [...] Amt Large (67-100%) Large (67-100%) -Granulation Quality [place] -Necrosis Amt None Present (0 None Present [...] Recorded Date Recorded By Document 01/21/24 10:09 RECUPYLop 01/21/24 10:10 SpongeFish Document 01/28/24 09:07 RECUPYLop 01/28/24 09:10 [employer] Document 02/04/24 09:13 RECUPYLop 02/04/24 09:17 FanaticsF 01/21/24 01/28/24 02/04/24 10:09 09:07 09:13 Wound [...] 3 - General Ulcer D/C NN Start: 04/01/24 08:06 Freq: Status: Active Protocol: Activity Type [...] times of rest. Discussed his trip to [place] that he will be taking tomorrow. Discussed [...] the patient has any questions or concerns. 02/04/2446 <Electronically signed by Merrill Burns DPM> Cosigner Signature (if applicable): CC: ~ Signed [facility] Work Phone: 1(208) 566-789104-11-2024 Progress note Author Merrill Burns [facility] January 28, 2024 9:45am Note Date/Time January 28, 2024 9:2 9am [facility] [address] [place] [address] Progress Note - Wound Care 01/28/2427 MR#: [id number] Acct: [id number] Name: WELLINGTON GONZALEZ Rep #:[id number] : 1945 78 From: Merrill machado DPM [...] 01/18/24 08:06 Freq: Status: Active Protocol: LA NENA.JESUS Activity Type Activity Date Activity User E-sign Co-sign Detail Recorded Client Recorded Date Recorded By Document 01/21/24 09:33 DL Desktop 01/21/24 09:39 DL Document 01/28/24 08:29 KW Desktop 01/28/24 08:37 KW 01/21/24 01/28/24 09:33 08:29 - Today's Visit Information Type of service Follow-up Visit Follow-up Visit (Physician/COFFEE SHOP ATTENDANT (Physician/COFFEE SHOP ATTENDANT ) ) Arrival Mode Ambulatory Ambulatory Transfer [...] -Visible -Granulation Amt Large (67-100%) -Granulation Quality [place] -Necrosis Amt None Present (0 %) -Structure [...] Recorded Date Recorded By Document 01/21/24 10:09 [employer] 01/21/24 10:10 [employer] Document 01/28/24 09:07 [employer] 01/28/24 09:10 [facility] 01/21/24 01/28/24 [...] Numeric Is Patient Pain Free? Yes Yes LA NENA - Nurse 3 - General Ulcer D/C [...] Cosigner Signature (if applicable): CC: ~ Signed [facility] Work Phone: 1(680) 109-688204-04-2024 Progress note Author Merrill Burns [facility] January 21, 2024 1:43pm Note Date/Time January 21, 2024 10:0 5am [facility] [address] [place] [address] Progress Note - Wound Care 01/21/24 1001 MR#: [id number] Acct: [id number] Name: WELLINGTON GONZALEZ Rep #:[id number] : 1945 78 From: Merrill machado DPM [...] 01/21/24 09:33 DL Desktop 01/21/24 09:39 DL 01/21/24 09:33 WC - Today's Visit Information Type of service Follow-up Visit (Physician/COFFEE SHOP ATTENDANT ) Arrival Mode Ambulatory Transfer Assistance None [...] Date Recorded By Document 01/21/24 09:33 DL [employer] 01/21/24 09:39 DL 01/21/24 09:33 Wound Center Nurse 1 #1 L Med Ankle -Current Size (cm) - Length 0.1 -Current Size (cm) - Width 0.1 -Current Size (cm) - Depth 0.1 -Total Square Cm 0.01 -Photo Taken Yes -Exudate Amt None Present -Wound Margin Indistinct, Non -Visible -Granulation Amt Large (67-100%) -Granulation Quality [place] -Necrosis Amt None Present (0 %) -Structure [...] Cosigner Signature (if applicable): CC: ~ Signed [facility] Work Phone: 1(939) 415-634603-28-2024 Progress note Author Merrill Burns [facility] January 14, 2024 7:27pm Note Date/Time January 14, 2024 10: 30am [facility] [address] [place] [address] Progress Note - Wound Care 01/14/24 1029 MR#: [id number] Acct: [id number] Name: WELLINGTON GONZALEZ Rep #:[id number] : 1945 78 From: Merrill machado DPM [...] Start: 01/14/24 09:30 Freq: Status: Active Protocol: .JESUS Activity Type Activity Date Activity User E-sign Co-sign Detail Recorded Client Recorded Date Recorded By Document 01/14/24 09:32 KW Desktop 01/14/24 09:38 KW 01/14/24 09:32 - Today's Visit Information Type of service Follow-up Visit (Physician/COFFEE SHOP ATTENDANT ) Arrival Mode Ambulatory Patient Identification Verified [...] Cosigner Signature (if applicable): CC: ~ Signed [facility] Work Phone: 1(352) 926-860103-20-2024 History and physical note Author Murray Mckee [facility] January 06, 2024 8:16am Note Date/Time January 06, 2024 8:1 6am [facility] Medical Records Department [address] [place] [address] History & Physical Exam 01/06/24812 MR#: [id number] Acct: [id number] Name: WELLINGTON GONZALEZ Rep #:[id number] : 1945 78 From: Murray Mckee MD PCP: Dr. Randa Joseph, DO Status:[facility] Location: [facility] HPI - General HPI Narrative WELLINGTON GONZALEZ, is a 78 M who presents with left lower extremity venous ulceration, deep reflux and SFJ reflux. His wounds are improving with local careand compression though still weeping. Here for venogram to assess for central obstruction [facility] Medical History 2011 femur fracture [place] [facility] [...] Mckee MD; Dr. Randa Joseph DO~ Signed [facility] Work Phone: 1(737) 365-317703-14-2024 Progress note Author Merrill Burns [facility] December 31, 2023 12:53pm Note Date/Time December 31, 2023 10: 23am [facility] [address] [place] [address] Progress Note - Wound Care 12/31/23 1020 MR#: [id number] Acct: [id number] Name: WELLINGTON GONZALEZ Rep #:[id number] : 1945 78 From: Merrill machado DPM PCP: Dr. Randa Joseph DO Status:REG RCR Location: History of Present [...] Start: 12/25/23 11:36 Freq: Status: Active Protocol: ANAYA Activity Type Activity Date Activity User E-sign Co-sign Detail Recorded Client Recorded Date Recorded By Document 12/25/23 11:36 KW Desktop 12/25/23 11:42 KW Document 12/31/23 09:42 KW Desktop 12/31/23 09:51 KW 12/25/23 12/31/23 11:36 09:42 - Today's Visit Information Type of service Nurse-only Follow-up Visit Visit (Physician/COFFEE SHOP ATTENDANT ) Arrival Mode Ambulatory Ambulatory Patient Identification [...] By Document 12/31/23 09:54 [facility] Desktop 12/31/23 10:01 [facility] 12/31/23 09:54 [...] Recorded Date Recorded By Document 12/25/23 11:36 [employer] 12/25/23 11:42 KW Document 12/31/23 10:01 [facility] [employer] 12/31/23 10:02 [facility] 12/25/23 12/31/23 [...] Cosigner Signature (if applicable): CC: ~ Signed [facility] Work Phone: 1(664) 584-217402-29-2024 Progress note Author Merrill Burns [facility] December 17, 2023 11:56am Note Date/Time December 17, 2023 9:42am [facility] [address] [place] [address] Progress Note - Wound Care 12/17/23 0938 MR#: [id number] Acct: [id number] Name: WELLINGTON GONZALEZ Rep #:[id number] : 1945 78 From: Merrill machado DPM [...] service Follow-up Visit Follow-up Visit Follow-up Visit (Physician/COFFEE SHOP ATTENDANT (Physician/COFFEE SHOP ATTENDANT (Physician/COFFEE SHOP ATTENDANT ) ) ) Arrival Mode Ambulatory Ambulatory [...] Type of service Follow-up Visit Follow-up Visit (Physician/COFFEE SHOP ATTENDANT (Physician/COFFEE SHOP ATTENDANT ) ) Arrival Mode Ambulatory Ambulatory Transfer [...] Attached -Granulation Amt Medium (34-66%) -Granulation Quality [place],Red -Necrosis Amt Medium (34-66%) -Necrotic Tissue Type [...] 11/19/23 10:38 PL Document 11/26/23 12:02 PL [id number] 11/26/23 12:04 PL Document 12/03/23 09:50 PL Tablet 12/03/23 09:51 PL Document 12/10/23 12:10 PL [id number] 12/10/23 12:10 PL Document 12/17/23 09:34 JF [...] -Expiration Date 07/19/28 07/19/28 -Product Lot Number [id number] -Percent Used 100 100 -Bleeding [...] Date Recorded By Document 11/19/23 10:07 KW [employer] 11/19/23 10:07 KW Document 11/26/23 09:59 Laptop 11/26/23 09:59 Document 12/03/23 09:45 KW [employer] 12/03/23 09:46 KW Document 12/10/23 09:37 KW [...] Cosigner Signature (if applicable): CC: ~ Signed [facility] Work Phone: 1(329) 914-472402-22-2024 Progress note Author Merrill Burns [facility] December 10, 2023 10:03am Note Date/Time December 10, 2023 8:58am [facility] [address] [place] [address] Progress Note - Wound Care 12/10/23 0857 MR#: [id number] Acct: [id number] Name: WELLINGTON GONZALEZ Rep #:[id number] : 1945 78 From: Merrill machado DPM [...] DL 11/19/23 11/26/23 12/03/23 09:33 09:22 09:18 WC - Today's Visit Information Type of service Follow-up Visit Follow-up Visit Follow-up Visit (Physician/COFFEE SHOP ATTENDANT (Physician/COFFEE SHOP ATTENDANT (Physician/COFFEE SHOP ATTENDANT ) ) ) Arrival Mode Ambulatory Ambulatory [...] Is Patient Pain Free? Yes Yes Yes LA NENA - Nurse 1 - General Ulcer Measurement [...] 11/19/23 10:38 PL Document 11/26/23 12:02 PL [id number] 11/26/23 12:04 PL Document 12/03/23 09:50 PL [...] -Expiration Date 07/19/28 07/19/28 -Product Lot Number [id number] -Percent Used 100 100 -Bleeding [...] 12/03/23 09:45 KW Desktop 12/03/23 09:46 KW 11/19/23 11/26/23 12/03/23 10:07 [...] Cosigner Signature (if applicable): CC: ~ Signed [facility] Work Phone: 1(649) 881-463802-15-2024 Progress note Author Merrill Burns [facility] December 03, 2023 9:48am Note Date/Time December 03, 2023 9:49am [facility] [address] [place] [address] Progress Note - Wound Care 12/03/23 0945 MR#: [id number] Acct: [id number] Name: ALIVIAMARISELAWELLINGTON Rep #:[id number] : 1945 78 From: Merrill machado DPM [...] DL 11/19/23 11/26/23 12/03/23 09:33 09:22 09:18 WC - Today's Visit Information Type of service Follow-up Visit Follow-up Visit Follow-up Visit (Physician/COFFEE SHOP ATTENDANT (Physician/COFFEE SHOP ATTENDANT (Physician/COFFEE SHOP ATTENDANT ) ) ) Arrival Mode Ambulatory Ambulatory [...] 11/19/23 10:38 PL Document 11/26/23 12:02 PL [id number] 11/26/23 12:04 PL 11/19/23 11/26/23 10:33 12:02 [...] -Expiration Date 07/19/28 07/19/28 -Product Lot Number [id number] 001 -Percent Used 100 100 -Bleeding [...] or concerns. 12/03/23947 <Electronically signed by Merrill uBrns DPM> Cosigner Signature (if applicable): CC: ~ Signed [facility] Work Phone: 1(921) 409-169002-08-2024 Progress note Author Merrill Burns [facility] November 26, 2023 9:54am Note Date/Time November 26, 2023 9 :28am [facility] [address] [place] [address] Progress Note - Wound Care 11/26/2327 MR#: [id number] Acct: [id number] Name: WELLINGTON GONZALEZ Allison Rep #:[id number] : 1945 78 From: Merrill machado DPM [...] 11/19/23 09:31 Freq: Status: Active Protocol: LA NENA.LOWEXMyra Activity Type Activity Date Activity User E-sign Co-sign Detail Recorded Client Recorded Date Recorded By Document 11/19/23 09:33 KW Desktop 11/19/23 09:44 KW Document 11/26/23 09:22 KW Desktop 11/26/23 09:25 KW 11/19/23 11/26/23 09:33 09:22 WC - Today's Visit Information Type of service Follow-up Visit Follow-up Visit (Physician/COFFEE SHOP ATTENDANT (Physician/COFFEE SHOP ATTENDANT ) ) Arrival Mode Ambulatory Ambulatory Patient [...] Disc -Expiration Date 07/19/28 -Product Lot Number [id number] -Percent Used 100 -Bleeding Controlled with [...] patient has any questions or concerns. 11/26/23 0917 <Electronically signed by Merrill Burns DPM> Cosigner Signature (if applicable): CC: ~ Signed [facility] Work Phone: 1(728) 170-706002-01-2024 Progress note Author Merrill Burns [facility] November 19, 2023 11:18am Note Date/Time November 19, 2023 1 0:39am [facility] [address] [place] [address] Progress Note - Wound Care 11/19/23 1034 MR#: [id number] Acct: [id number] Name: WELLINGTON GONZALEZ Rep #:[id number] : 1945 78 From: Merrill machado DPM [...] Visit Information Type of service Follow-up Visit (Physician/COFFEE SHOP ATTENDANT ) Arrival Mode Ambulatory Patient Identification Verified [...] Recorded Date Recorded By Document 11/19/23 09:33 [employer] 11/19/23 09:44 KW 11/19/23 09:33 Wound Center [...] Recorded Date Recorded By Document 11/19/23 10:07 codesyktop 11/19/23 10:07 KW 11/19/23 10:07 Wound Care [...] Cosigner Signature (if applicable): CC: ~ Signed [facility] Work Phone: 1(676) 380-525301-30-2024 Progress note Author Maxx Palma [facility] November 17, 2023 10:08am Note Date/Time November 17, 2023 1 0:08am [facility] [address] [place] [address] Progress Note - Wound Care 11/17/23 1004 MR#: [id number] Acct: [id number] Name: WELLINGTON GONZALEZ Rep #:[id number] : 1945 78 From: Mxax Palma DPM PCP: Dr. Randa Joseph, DO [...] Document 10/20/23 07:58 BMF Desktop 10/20/23 08:00 BMF Document 10/22/23 10:55 Laptop 10/22/23 11:00 JF Document 10/26/23 08:20 KW Desktop 10/26/23 08:28 KW Document 10/29/23 09:40 [id number] 10/29/23 09:41 JF Document 11/05/23 09:06 KW Desktop 11/05/23 09:12 KW Document 11/12/23 09:08 KW Desktop 11/12/23 09:17 KW Document 11/17/23 09:19 DL Desktop 11/17/23 09:26 DL 10/20/23 10/22/23 10/26/23 07:58 10:55 08:20 - Today's Visit Information Type of service Nurse-only Follow-up Visit Nurse-only Visit (Physician/COFFEE SHOP ATTENDANT Visit ) Arrival Mode Ambulatory Ambulatory Ambulatory [...] service Follow-up Visit Follow-up Visit Follow-up Visit (Physician/COFFEE SHOP ATTENDANT (Physician/COFFEE SHOP ATTENDANT (Physician/COFFEE SHOP ATTENDANT ) ) ) Arrival Mode Ambulatory Ambulatory [...] Pain Free? Yes Yes Yes 11/17/23 09:19 - Today's Visit Information Type of service Follow-up Visit (Physician/COFFEE SHOP ATTENDANT ) Arrival Mode Ambulatory Transfer Assistance None [...] 10/26/23 08:28 KW Document 10/29/23 09:40 JF [id number] 10/29/23 09:41 JF Document 11/05/23 09:06 KW [...] Date Recorded By Document 10/22/23 12:24 PL [id number] 10/22/23 12:26 PL Document 10/29/23 12:03 PL [id number] 10/29/23 12:04 PL Document 11/05/23 10:22 PL [...] -Expiration Date 06/19/28 08/19/28 -Product Lot Number [id number] -Percent Used 100 100 -Bleeding [...] Tissue -Expiration Date 06/19/28 -Product Lot Number [id number] -Percent Used 100 -Bleeding Controlled with [...] BMF Edit Result 10/20/23 08:01 BMF (1) [id number] 10/21/23 07:17 PL Document 10/22/23 11:32 KW Desktop 10/22/23 11:33 KW Document 10/26/23 07:38 PL [id number] 10/27/23 07:38 PL Document 10/29/23 09:53 KW [...] Cosigner Signature (if applicable): CC: ~ Signed [facility] Work Phone: 1(568) 148-792201-25-2024 Progress note [facility] November 12, 2023 9:51am Note Date/Time November 12, 2023 9 :18am [facility] [address] [place] [address] Progress Note - Wound Care 11/12/23 0918 MR#: [id number] Acct: [id number] Name: WELLINGTON GONZALEZ Rep #:[id number] : 1945 78 From: Merrill machado DPM [...] Start: 10/20/23 07:58 Freq: Status: Active Protocol: GENEVIEVE Activity Type Activity Date Activity User E-sign Co-sign Detail Recorded Client Recorded Date Recorded By Document 10/20/23 07:58 [employer] 10/20/23 08:00 [employer] Document 10/22/23 10:55 [employer] Laptop 10/22/23 11:00 Document 10/26/23 08:20 codesyktop 10/26/23 08:28 Document 10/29/23 09:40 [id number] 10/29/23 09:41 Document 11/05/23 09:06 [email or web address] Desktop 11/05/23 09:12 KW Document 11/12/23 09:08 [email or web address] Desktop 11/12/23 09:17 KW 10/20/23 10/22/23 10/26/23 07:58 10:55 08:20 - Today's Visit Information Type of service Nurse-only Follow-up Visit Nurse-only Visit (Physician/COFFEE SHOP ATTENDANT Visit ) Arrival Mode Ambulatory Ambulatory Ambulatory [...] service Follow-up Visit Follow-up Visit Follow-up Visit (Physician/COFFEE SHOP ATTENDANT (Physician/COFFEE SHOP ATTENDANT (Physician/COFFEE SHOP ATTENDANT ) ) ) Arrival Mode Ambulatory Ambulatory [...] Recorded Date Recorded By Document 10/20/23 08:00 [employer] 10/20/23 08:01 [employer] Document 10/22/23 10:55 Laptop 10/22/23 11:00 JF Document 10/26/23 08:20 [email or web address] Desktop 10/26/23 08:28 KW Document 10/29/23 09:40 [id number] 10/29/23 09:41 JF Document 11/05/23 09:06 KW [...] Exposed -Texture (Megan-wound Skin Appearance) Assessed -Moisture (Mgean-wound Skin Appearance) Assessed Dry/Scaly -Color (Mgean-wound Skin Appearance) Assessed Hemosiderin Staining -Temperature (Megan-wound [...] Slough Adherent Slough -Structure Exposed N/A -Texture (Meagn-wound Skin Appearance) Assessed, Assessed Assessed Excoriation, Localized [...] Date Recorded By Document 10/22/23 12:24 PL [id number] 10/22/23 12:26 PL Document 10/29/23 12:03 PL [id number] 10/29/23 12:04 PL Document 11/05/23 10:22 PL [...] -Expiration Date 06/19/28 08/19/28 -Product Lot Number [id number] -Percent Used 100 100 -Bleeding [...] BMF Edit Result 10/20/23 08:01 BMF (1) [id number] 10/21/23 07:17 PL Document 10/22/23 11:32 KW Desktop 10/22/23 11:33 KW Document 10/26/23 07:38 PL [id number] 10/27/23 07:38 PL Document 10/29/23 09:53 KW [...] patient has any questions or concerns. 11/12/23 0951 <Electronically signed by Merrill Burns DPM> Cosigner Signature (if applicable): CC: ~ Signed [facility] Work Phone: 1(471) 236-476501-19-2024 Procedure [facility] 11-05-2023 Progress note Author Merrill Burns [facility] November 05, 2023 9:58am Note Date/Time November 05, 2023 9 :20am [facility] [address] [place] [address] Progress Note - Wound Care 11/05/23919 MR#: [id number] Acct: [id number] Name: WELLINGTON GONZALEZ Rep #:[id number] : 1945 78 From: Merrill machado DPM [...] Start: 10/20/23 07:58 Freq: Status: Active Protocol: LA NENA.LOWEXT Activity Type Activity Date Activity User E-sign Co-sign Detail Recorded Client Recorded Date Recorded By Document 10/20/23 07:58 [facility] Desktop 10/20/23 08:00 [facility] Document 10/22/23 10:55 Laptop 10/22/23 11:00 JF Document 10/26/23 08:20 KW Desktop 10/26/23 08:28 KW Document 10/29/23 09:40 [id number] 10/29/23 09:41 JF Document 11/05/23 09:06 KW Desktop 11/05/23 09:12 KW 10/20/23 10/22/23 10/26/23 07:58 10:55 08:20 - Today's Visit Information Type of service Nurse-only Follow-up Visit Nurse-only Visit (Physician/COFFEE SHOP ATTENDANT Visit ) Arrival Mode Ambulatory Ambulatory Ambulatory [...] Type of service Follow-up Visit Follow-up Visit (Physician/COFFEE SHOP ATTENDANT (Physician/COFFEE SHOP ATTENDANT ) ) Arrival Mode Ambulatory Ambulatory Transfer [...] 08:01 [facility] Document 10/22/23 10:55 JF Laptop 10/22/23 11:00 JF Document 10/26/23 08:20 KW Desktop 10/26/23 08:28 KW Document 10/29/23 09:40 JF [id number] 10/29/23 09:41 JF Document 11/05/23 09:06 KW [...] Date Recorded By Document 10/22/23 12:24 PL [id number] 10/22/23 12:26 PL Document 10/29/23 12:03 PL [id number] 10/29/23 12:04 PL 10/22/23 10/29/23 12:24 12:03 [...] Mesh -Expiration Date 06/19/28 -Product Lot Number [id number] -Percent Used 100 -Bleeding Controlled with [...] BMF Edit Result 10/20/23 08:01 BMF (1) [id number] 10/21/23 07:17 PL Document 10/22/23 11:32 KW Desktop 10/22/23 11:33 KW Document 10/26/23 07:38 PL [id number] 10/27/23 07:38 PL Document 10/29/23 09:53 KW [...] Cosigner Signature (if applicable): CC: ~ Signed [facility] Work Phone: 1(652) 889-143101-11-2024 Progress note Author Merrill Burns [facility] October 29, 2023 10:29am Note Date/Time October 29, 2023 9 :24am [facility] [address] [place] [address] Progress Note - Wound Care 10/29/23920 MR#: [id number] Acct: [id number] Name: WELLINGTON GONZALEZ Rep #:[id number] : 1945 78 From: Merrill machado DPM [...] Start: 10/20/23 07:58 Freq: Status: Active Protocol: .LOWEXMyra Activity Type [...] of service Nurse-only Follow-up Visit Nurse-only Visit (Physician/COFFEE SHOP ATTENDANT Visit ) Arrival Mode Ambulatory Ambulatory Ambulatory [...] 08:01 [facility] Document 10/22/23 10:55 JF Laptop 10/22/23 11:00 [...] Date Recorded By Document 10/22/23 12:24 MALIHA [id number] 10/22/23 12:26 PL 10/22/23 12:24 Wound Center [...] Mesh -Expiration Date 06/19/28 -Product Lot Number [id number] -Percent Used 100 -Bleeding Controlled with Pressure -Treatment Response Procedure Tolerated Well -Debridement - Subq, 1st 20sq cm No -Apply Skin Sub - 1st 25 sq cm - Legs 1 -Epifix Mesh (per sq cm) 11 Pain Scale: 0-10 Numeric Is Patient Pain Free? Yes WC - Nurse 3 - General Ulcer D/C NN Start: 10/20/23 07:58 Freq: Status: Active Protocol: Activity Type Activity Date Activity User E-sign Co-sign Detail Recorded Client Recorded Date Recorded By Document 10/20/23 08:01 BMF Desktop 10/20/23 08:03 BMF Edit Result 10/20/23 08:01 BMF (1) [id number] 10/21/23 07:17 PL Document 10/22/23 11:32 KW Desktop 10/22/23 11:33 KW Document 10/26/23 07:38 PL [id number] 10/27/23 07:38 PL (1) Left - Multi-Layered [...] will refrain from application of graft today. Dakin's wet-to-dry dressing applied with double Tubigrip compression [...] Cosigner Signature (if applicable): CC: ~ Signed [facility] Work Phone: 1(228) 888-778601-04-2024 Progress note Author Merrill Burns [facility] October 22, 2023 12:58pm Note Date/Time October 22, 2023 12 :56pm [facility] [address] [place] [address] Progress Note - Wound Care 10/22/23 1243 MR#: [id number] Acct: [id number] Name: WELLINGTON GONZALEZ Rep #:[id number] : 1945 78 From: Merrill machado DPM [...] 08:00 [facility] Document 10/22/23 10:55 ALEJANDRO Laptop 10/22/23 11:00 ALEJANDRO 10/20/23 10/22/23 07:58 10:55 - Today's Visit Information Type of service Nurse-only Follow-up Visit Visit (Physician/COFFEE SHOP ATTENDANT ) Arrival Mode Ambulatory Ambulatory Patient Identification [...] 08:00 [facility] Desktop 10/20/23 08:01 [employer] Document 10/22/23 10:55 Laptop 10/22/23 11:00 JF [...] Date Recorded By Document 10/22/23 12:24 PL [id number] 10/22/23 12:26 PL 10/22/23 12:24 Wound Center Nurse 2 #1 L [facility] Ankle -Time 11:13 -Correct Patient Yes -Correct [...] Mesh -Expiration Date 06/19/28 -Product Lot Number [id number] -Percent Used 100 -Bleeding Controlled with [...] BMF Edit Result 10/20/23 08:01 BMF (1) [id number] 10/21/23 07:17 PL Document 10/22/23 11:32 KW [...] Cosigner Signature (if applicable): CC: ~ Signed [facility] Work Phone: 1(694) 101-638212-28-2023 Progress note Author Merrill Burns [facility] October 15, 2023 1:11pm Note Date/Time October 15, 2023 1:11pm [facility] [address] [place] [address] Progress Note - Wound Care 10/15/23 1307 MR#: [id number] Acct: [id number] Name: WELLINGTON GONZALEZ Rep #:[id number] : 1945 78 From: Merrill machado DPM [...] 09/22/23 13:59 Freq: Status: Active Protocol: LA NENA.LOWEXT Activity Type Activity Date Activity User E-sign Co-sign Detail Recorded Client Recorded Date Recorded By Document 09/24/23 11:14 KW Desktop 09/24/23 11:23 KW Document 09/29/23 11:20 RB [id number] 09/29/23 11:24 RB Document 10/01/23 09:16 KW Desktop 10/01/23 09:22 KW Document 10/06/23 11:08 KW Desktop 10/06/23 11:10 KW Document 10/08/23 12:54 KW Desktop 10/08/23 13:04 KW Document 10/13/23 11:15 KW Desktop 10/13/23 11:20 KW Document 10/15/23 09:25 KW Desktop 10/15/23 09:30 KW 09/24/23 09/29/23 10/01/23 11:14 11:20 09:16 WC - Today's Visit Information Type of service Follow-up Visit Nurse-only Follow-up Visit (Physician/COFFEE SHOP ATTENDANT Visit (Physician/COFFEE SHOP ATTENDANT ) ) Arrival Mode Ambulatory Ambulatory Ambulatory [...] Yes 10/06/23 10/08/23 10/13/23 11:08 12:54 11:15 - Today's Visit Information Type of service [...] Pain Free? Yes Yes Yes 10/15/23 09:25 - Today's Visit Information Type of service Follow-up Visit (Physician/COFFEE SHOP ATTENDANT ) Arrival Mode Ambulatory Transfer Assistance Accompanied [...] 09/24/23 11:24 KW Document 09/29/23 11:20 RB [id number] 09/29/23 11:24 RB Document 10/01/23 09:16 KW [...] Amt Medium (34-66%) Large (67-100%) -Granulation Quality [place] Red -Necrosis Amt Large (67-100%) Small (1-33%) [...] Date Recorded By Document 09/24/23 12:40 PL [id number] 09/24/23 12:41 PL Document 10/01/23 16:44 PL [id number] 10/01/23 16:46 PL Edit Result 10/01/23 16:44 PL (1) [id number] 10/02/23 07:21 PL Document 10/15/23 12:36 PL [id number] 10/15/23 12:38 PL (1) #1 L Med [...] Date 05/19/28 05/19/28 06/19/28 -Product Lot Number [id number] 013 -Percent Used 100 100 [...] Date Recorded By Document 09/22/23 13:59 PL [id number] 09/22/23 14:00 PL Document 09/29/23 11:20 RB [id number] 09/29/23 11:24 RB Document 10/01/23 10:01 KW [...] Cosigner Signature (if applicable): CC: ~ Signed [facility] Work Phone: 1(211) 221-653012-14-2023 Progress note Author Merrill Burns [facility] October 01, 2023 9:52am Note Date/Time October 01, 2023 9:29am [facility] [address] [place] [address] Progress Note - Wound Care 10/01/23 0928 MR#: [id number] Acct: [id number] Name: WELLINGTON GONZALEZ Rep #:[id number] : 1945 78 From: Merrill machado DPM [...] 09/24/23 11:23 KW Document 09/29/23 11:20 RB [id number] 09/29/23 11:24 RB Document 10/01/23 09:16 KW Desktop 10/01/23 09:22 KW 09/24/23 09/29/23 10/01/23 11:14 11:20 09:16 - Today's Visit Information Type of service Follow-up Visit Nurse-only Follow-up Visit (Physician/COFFEE SHOP ATTENDANT Visit (Physician/COFFEE SHOP ATTENDANT ) ) Arrival Mode Ambulatory Ambulatory Ambulatory [...] 09/24/23 11:24 KW Document 09/29/23 11:20 RB [id number] 09/29/23 11:24 RB Document 10/01/23 09:16 KW [...] Amt Medium (34-66%) Large (67-100%) -Granulation Quality [place] Red -Necrosis Amt Large (67-100%) Small (1-33%) [...] Recorded Date Recorded By Document 09/24/23 12:40 MALIHA [id number] 09/24/23 12:41 PL 09/24/23 12:40 Wound Center [...] Mesh -Expiration Date 05/19/28 -Product Lot Number [id number] -Percent Used 100 -Bleeding Controlled with [...] Date Recorded By Document 09/22/23 13:59 PL [id number] 09/22/23 14:00 PL Document 09/29/23 11:20 RB [id number] 09/29/23 11:24 RB 09/22/23 09/29/23 13:59 11:20 [...] Cosigner Signature (if applicable): CC: ~ Signed [facility] Work Phone: 1(965) 774-485812-07-2023 Progress note Author Merrill Burns [facility] September 24, 2023 3:31pm Note Date/Time September 24, 2023 3 :28pm [facility] [address] [place] [address] Progress Note - Wound Care 09/24/23 1520 MR#: [id number] Acct: [id number] Name: WELLINGTON GONZALEZ Rep #:[id number] : 1945 78 From: Merrill machado DPM [...] Visit Information Type of service Follow-up Visit (Physician/COFFEE SHOP ATTENDANT ) Arrival Mode Ambulatory Accompanied by byrd [...] Thickened -Granulation Amt Medium (34-66%) -Granulation Quality [place] -Necrosis Amt Large (67-100%) -Necrotic Tissue Type [...] Date Recorded By Document 09/24/23 12:40 PL [id number] 09/24/23 12:41 PL 09/24/23 12:40 Wound Center [...] Mesh -Expiration Date 05/19/28 -Product Lot Number [id number] -Percent Used 100 -Bleeding Controlled with [...] Date Recorded By Document 09/22/23 13:59 PL [id number] 09/22/23 14:00 PL 09/22/23 13:59 Wound Care [...] Cosigner Signature (if applicable): CC: ~ Signed [facility] Work Phone: 1(375) 200-731411-30-2023 Progress note Author Merrill Burns [facility] September 17, 2023 9:29am Note Date/Time September 17, 2023 9:29am [facility] [address] [place] [address] Progress Note - Wound Care 09/17/2320 MR#: [id number] Acct: [id number] Name: WELLINGTON GONZALEZ Rep #:[id number] : 1945 78 From: Merrill machado DPM [...] service Initial Visit Nurse-only Follow-up Visit Visit (Physician/COFFEE SHOP ATTENDANT ) Arrival Mode Ambulatory Ambulatory Ambulatory Transfer [...] Bottom <Entered> (a) Communication Assessment Preferred language Nam[place]ian Able to Read Yes Able to Write Yes Right Hearing Abillity Use of Hearing Aid Left Hearing Abillity Use of Hearing Aid Visual Assistive Devices Glasses Teaching Assessment Preferences Verbal,Written, Demonstration Functional Assessment Recent Decline in Ability to Perform Denies Any Declines Culture/Orthodox/Pourer Metal Cultural/Orthodox Needs that may affect No Treatment Plan Would you allow our hospital rn lab to No meet you for the purpose of spiritual/ emotional support? Pourer Metal to contact place of latter-day No Teaching: Wound Center Drainage -Person Taught -Teaching Method -Response to teaching *Welcome to the Wound Center -Person Taught Patient 09/07/23 09/17/23 11:30 08:21 WC - Today's Visit Information Type of service Nurse-only Follow-up Visit Visit (Physician/COFFEE SHOP ATTENDANT ) Arrival Mode Ambulatory Ambulatory Transfer Assistance [...] Assessment Recent Decline in Ability to Perform Culture/Orthodox/Pourer Metal Cultural/Orthodox Needs that may affect Treatment Plan Would you allow our hospital rn lab to meet you for the purpose of spiritual/ emotional support? Pourer Metal to contact place of latter-day Teaching: Wound Center Drainage -Person Taught Patient -Teaching Method Discussion -Response to teaching Verbalize understanding *Welcome to the Wound Center -Person Taught (a) 1 - + WC - Nurse 1 - General Ulcer Measurement Start: 08/27/23 09:10 Freq: Status: Active Protocol: Activity Type Activity Date Activity User E-sign Co-sign Detail Recorded Client Recorded Date Recorded By Document 11/09/23 09:13 DL Desktop 08/27/23 09:30 DL Document [...] Present (0 Small (1-33%) %) -Granulation Quality [place] -Necrosis Amt Large (67-100%) Medium (34-66%) -Necrotic [...] Date Recorded By Document 08/27/23 17:03 PL [id number] 08/27/23 17:04 PL Document 09/03/23 16:11 PL [id number] 09/03/23 16:13 PL 08/27/23 09/03/23 17:03 16:11 [...] Mesh -Expiration Date 04/18/28 -Product Lot Number [id number] -Percent Used 100 -Bleeding Controlled with [...] Desktop 08/27/23 10:58 KW Document 08/31/23 08:14 BMF Desktop 08/31/23 08:17 BMF Document 09/03/23 09:24 NRL Desktop 09/03/23 09:27 NRL Document 09/07/23 11:30 Desktop 09/07/23 11:35 08/27/23 [...] 2 Layer System -Optilok 6.5x10 1 -Promogran Abran Matter Left -Lotion applied to leg before [...] the patient has any questions or concerns. 09/17/23928 <Electronically signed by Merrill Burns DPM> Cosigner Signature (if applicable): CC: ~ Signed [facility] Work Phone: 1(580) 937-188211-16-2023 Progress note Author Merrill Grant [facility] September 03, 2023 10:11am Note Date/Time September 03, 2023 10:11am [facility] [address] [place] [address] Progress Note - Wound Care 09/03/23 1000 MR#: [id number] Acct: [id number] Name: WELLINGTON GONZALEZ Rep #:[id number] : 1945 78 From: Merrill machado DPM [...] service Initial Visit Nurse-only Follow-up Visit Visit (Physician/COFFEE SHOP ATTENDANT ) Arrival Mode Ambulatory Ambulatory Ambulatory Transfer [...] Bottom <Entered> (a) Communication Assessment Preferred language [place]ian Able to Read Yes Able to Write Yes Right Hearing Abillity Use of Hearing Aid Left Hearing Abillity Use of Hearing Aid Visual Assistive Devices Glasses Teaching Assessment Preferences Verbal,Written, Demonstration Functional Assessment Recent Decline in Ability to Perform Denies Any Declines Culture/Orthodox/Pourer Metal Cultural/Orthodox Needs that may affect No Treatment Plan Would you allow our hospital rn lab to No meet you for the purpose of spiritual/ emotional support? Pourer Metal to contact place of latter-day No Teaching: Wound Center *Welcome to the [...] Present (0 Small (1-33%) %) -Granulation Quality [place] -Necrosis Amt Large (67-100%) Medium (34-66%) -Necrotic [...] Date Recorded By Document 08/27/23 17:03 PL [id number] 08/27/23 17:04 PL 08/27/23 17:03 Wound Center [...] Patient Pain Free? Yes WC - Nurse 3 - General Ulcer D/C NN Start: 08/27/23 09:10 Freq: Status: Active Protocol: Activity Type Activity Date Activity User E-sign Co-sign Detail Recorded Client Recorded Date Recorded By Document 08/27/23 10:58 KW Desktop 08/27/23 10:58 KW Document 08/31/23 08:14 BMF Desktop 08/31/23 08:17 BMF Document 09/03/23 09:24 NRL Desktop 09/03/23 09:27 NRL 08/27/23 08/31/23 09/03/23 [...] Cosigner Signature (if applicable): CC: ~ Signed [facility] Work Phone: 1(736) 729-419711-09-2023 History and physical note Author Merrill Burns [facility] August 27, 2023 8:55pm Note Date/Time August 27, 2023 1 0:56am [facility] [address] [place] [address] H&P Exam - Wound Care 08/27/23 1055 MR#: [id number] Acct: [id number] Name: WELLINGTON GONZALEZ Rep #:[id number] : 1945 78 From: Merrill machado DPM [...] of skin. Denies N/V/F/chills. No further complaints. [facility] Medical History (Updated 08/27/23 @ 13:[address] Merrill Burns, DPM) 2011 femur fracture [facility] Celiac [...] Recorded Date Recorded By Document 08/27/23 09:13 Desktop 08/27/23 09:30 DL 08/27/23 09:13 - Today's Visit Information Type of service Initial Visit Arrival Mode Ambulatory Transfer Assistance None Patient Identification Verified (Name & Yes ) Patient Requires Transmission-Based No Precautions Height and Weight Height 6 ft 1 in Weight 99.159 kg Weight in Pounds 218.6 lbs Body Mass Index (BMI) 28.8 BMI Classification Overweight BSA - Francois 2.23 Vital Signs [...] Bottom <Entered> (a) Communication Assessment Preferred language [place]ian Able to Read Yes Able to Write Yes Right Hearing Abillity Use of Hearing Aid Left Hearing Abillity Use of Hearing Aid Visual Assistive Devices Glasses Teaching Assessment Preferences Verbal,Written, Demonstration Functional Assessment Recent Decline in Ability to Perform Denies Any Declines Culture/Orthodox/Pourer Metal Cultural/Orthodox Needs that may affect No Treatment Plan Would you allow our hospital rn lab to No meet you for the purpose of spiritual/ emotional support? Pourer Metal to contact place of latter-day No Teaching: Wound Center *Welcome to the [...] intake to aid in wound healing. Recommended Vladiimr supplementation. Discussed reducing foods with salty content [...] Cosigner Signature (if applicable): CC: ~ Signed [facility] Work Phone: 1(765) 817-856807-05-2023 Discharge summary Author Joan Muñoz [facility] April 22, 2023 3:24pm Note Date/Time April 22, 2023 3:24p m [facility] Physical Therapy [facility] [place] [address] / REHABILITATION SERVICES DISCHARGE SUMMARY MR#: [id number] Acct: [id number] Name: WELLINGTON GONZALEZ Rep #: [id number] : 1945 78 From: Joan Renteria Referring Dr.: Dr. Alvaro Moss MD Status: REG RCR Insurance: MEDICARE PART A B [employer] [facility] Patient Information Patient Information: WELLINGTON GONZALEZ was [...] found appropriate by the physician. Thank you! Joan Muñoz, DEB Balance/Gait/Functional tests Balance/Special Test Scores Functional Gait Assessment Score: 8 % Disability: 73.3400 Lower Extremity Functional Score: 48 <Electronically signed by Joan Muñoz MPT> 04/22/23 1524 CC: Dr. Randa Joseph DO; Dr. Alvaro Moss MD ~ Signed [facility] Work Phone: 1([phone]) 640-763604-29-2023 History of Present illness Narrative* Renee Conde APRN.COFFEE SHOP ATTENDANT - 02/14/2023 11:13 AM EDT Subjective HPI [...] OCD LESION FEMORAL CONDYLE 2011 left femor- [place] PAST SURGICAL HISTORY OF several eye surgeries, [...] ED Renee Conde APRN.CNP [facility] Inst[facility]* Patient Instructions* Jaqui Felton APRN.CNP [...] breath go to ER [facility] History of Present illness Narrative* Jaqui [...] hx of moderate+ asthma. Nonsmoker. Seen [place] the [facility] [place], told has flu. .Patient presents with: Chest [...] OCD LESION FEMORAL CONDYLE 2011 left femor- [place] PAST SURGICAL HISTORY OF several eye surgeries, [...] TABLET Jaqui Felton APRN.JASON [facility] Instructions* Patient Instructions* Teagan Peraza PA-C - 09/17/2022 10:19 AM EST The following instructions are important for you related to your office visit today with the [facility] General Surgeons. INSTRUCTIONS FOLLOWING YOUR RECENT HERNIA [...] you should contact our office immediately @ [phone] and ask to be transferred to the General Surgery department. [facility] History of Present illness Narrative* Teagan Peraza PA-C - 09/17/2022 10:04 AM EST FOLLOW UP VISIT - HERNIA NAME: Wellington [facility] NO.: [id number] DATE OF SERVICE: 09/17/2022 : 1945 REFERRING PHYSICIAN: Randa Joseph DO [place] is a patient I am following with Dr. Mayer for a left inguinal hernia. Dr. Mayer performedan open left inguinal hernia repair with mesh on 09/10/22 at [facility]. The patient currentlynotes no major complaints. [...] plan. Teagan Peraza PA-C [facility]22 NoteHNO ID: [id number] Author: Saturnino Valdovinos RN Service: Nursing Author Type: Registered Nurse Type: Nursing Progress Note Filed: 09/10/2022 3:46 PM Note Text: Pt up at bedside, ambulated to bathroom. Voided q/s returned to [facility]-23-2022 NoteHNO ID: [id number] Author: Deborah Larry APRN.FIRE PREVENTION CAPTAIN Service: Anesthesiology Author Type: Nurse Math Coach Type: Anesthesia Procedure Notes Filed: 09/10/2022 1:11 PM Note Text: ANESTHESIOLOGY PROCEDURE NOTE Airway General Information Procedure Start Time/Medication Administration: 09/10/2022 1:00 PM Patient location during procedure: OR Timeout Performed Pre-procedure: timeout performed Consent Obtained: Yes Patient identity confirmed: arm band and patient Staffing FIRE PREVENTION CAPTAIN: Deborah Larry APRN.FIRE PREVENTION CAPTAIN Indications and Patient Condition Indications for airway [...] no Airway not difficult SIGNATURE: Deborah Larry APRN.FIRE PREVENTION CAPTAIN PATIENT NAME: [place] Gonzalez DATE: September 10, 2022 TIME: 1:10 PM CSN: [id number] History of Past illness Narrative* Problem Noted Date Resolved Date Left inguinal hernia 09/10/2022 09/10/2022 Acute gastritis without mention of hemorrhage 01/04/2015 Abdominal pain, epigastric 01/04/201501/04 documented as of this encounter (statuses as of 09/23/2022) [facility] History of Past illness Narrative* Problem Noted Date Resolved Date Left inguinal hernia 09/10/2022 09/10/2022 Acute gastritis without mention of hemorrhage 01/04/2015 Abdominal pain, epigastric 01/04/201501/04 documented as of this encounter (statuses as of 10/23/2022) [facility] History of Past illness Narrative* Problem Noted Date Resolved Date Left inguinal hernia 09/10/2022 09/10/2022 Acute gastritis without mention of hemorrhage 01/04/2015 Abdominal pain, epigastric 01/04/201501/04 documented as of this encounter (statuses as of 02/14/2023) [facility] History of Present illness Narrative* Maxx [...] OCD LESION FEMORAL CONDYLE 2011 left femor- [place] PAST SURGICAL HISTORY OF several eye surgeries, [...] entered by the nurse and reviewed by de Nursing Notes: Shanti Lei LPN 08/04/2022 2:28 [...] last Mammogram screening? N/A Last Colonoscopy: Unknown [facility] PHYSICAL EXAMINATION: General: The patient is 77 [...] hernia repair with mesh - recurrent - [id number] Anticipated Anesthetic: General Patient weight: Blood pressure 130/70, pulse 80, temperature 36.6 C (97.9 F), temperature source Temporal, resp. rate 16, height 182.9 cm (6'), weight 112.9 kg (249 lb), SpO2 95 %. BMI: Body mass index is 33.77 kg/m . Planned antibiotic: Ancef 2gm IVPB solar installation foreman to OR SCDs needed - Yes Return [...] Maxx Mayer III, MD [facility]* Shanti Lei WIRELESS CONSTRUCTION MANAGER - 08/04/2022 2:22 PM EDT REVIEW OF [...] Unknown Shanti Lei LPN [facility] History of Past illness Narrative* Problem Noted Date Resolved Date Acute gastritis without mention of hemorrhage 01/04/2015 Abdominal pain, epigastric 01/04/201501/04 documented as of this encounter (statuses as of 08/04/2022) [facility] note* Diagnosis Onset Date Resolution Status Obesity acute JOSHUA (obstructive sleep apnea) acute Severe persistent asthma, uncomplicated acute [facility] Work Phone: Evaluation noteNo assessment information available [facility] Work Phone: evaluation note* Diagnosis Left inguinal hernia- Primary Inguinal hernia without mention of obstruction or gangrene, unilateral or unspecified, (not specified as recurrent) documented in this encounter [facility] note* Diagnosis S/P hernia repair- Primary Other postprocedural status documented in this encounter [facility] note* Diagnosis Lower resp. 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..] chron ic Venous insufficiency (chronic) (peripheral) chronic [facility] Work Phone: Evaluation note* Diagnosis Onset [...] chron ic Venous insufficiency (chronic) (peripheral) chronic [facility] Work Phone: Evaluation note* Diagnosis Onset [...] chron ic Venous insufficiency (chronic) (peripheral) chronic [facility] Work Phone: Evaluation note* Diagnosis Onset [...] extremity due to chronic venous insufficiency acute [facility] Work Phone: Evaluation note* Diagnosis Onset [...] insufficiency acute Venous insufficiency (chronic) (peripheral) chronic [facility] Work Phone: Evaluation note* Diagnosis Onset [...] chron ic Venous insufficiency (chronic) (peripheral) chronic [facility] Work Phone: Evaluation note* Diagnosis Nail fungus- Primary Dermatophytosis of nail Injury of great toenail [facility] Pre-operative examination- Primary Preoperative [...] apnea (adult) (pediatric) Coronary artery disease involving [place] heart with angina pectoris, unspecified vessel or lesion type (HCC) Injury of right shoulder, initial encounter- Primary [facility] Author TODD oGuld [facility] Note Date/Time August 01, 2025 1 0:03am [facility] [address] [place] [address] OFFICE VISIT Date of Service: 08/01/25 MR#: [id number] Acct: [id number] Name: WELLINGTON GONZALEZ Rep #: [id number] : [id number] Provider: Ivelisse yang NP Age/Sex: 80/M Location: [facility] Status: Signed Assessment and Plan Assessment and Plan (1) Severe persistent asthma, uncomplicated: Status: Chronic Plan: His respiratory symptoms are suboptimally controlled because he is not using theICS/LABA therapy in a consistent manner. He understands the importance of usingthe maintenance inhaler on a daily basis. Continue with use of Fasenra. Continue with use of albuterol to be used as needed for worsening symptoms. Notify this practice for worsening symptoms or symptoms of bronchitis. I have recommended that he obtain the influenza vaccine today. The patient believes that he may have already received it for the season and plans to check with his PCP. (2) JOSHUA (obstructive sleep apnea): Status: Chronic Plan: PAP therapy is well-controlled with the current set up. I recommend that he continue with the same pressure and mask style. No indication for titration study at this time. Contact the office for any new or worsening symptoms in the meantime.? Repeat compliance download on follow-up. (3) Solitary pulmonary nodule: Status: Acute Plan: Incidental finding on CTA. I have recommended a noncontrast chest CT 12 months from previous imaging as the patient has low risk factors. Previously ordered for October 2025. The patient does a fair amount of woodworking and today I discussed ways to avoid potential irritants and particles that can worsen lung disease. (4) Restless leg syndrome: Status: Chronic Plan: He has been utilizing ferrous gluconate twice daily with good benefit, reassess on follow-up. Plan Details Follow Up: 6 Months (LMR) HPI HPI Comments Details: Patient is a 80-year-old male who presents to the office today for a routine scheduled follow up visit due to underlying asthma and JOSHUA. He is ambulatory and currently on room air. If you recall, the patient was initially referred to our office in November 2019for the evaluation of asthma. At that time, the patient had reported that he was initially diagnosed with asthma in the early . The patient does have ahistory of gastroesophageal reflux disease. He was [facility]. The patient does have a history of peripheral eosinophilia,dating as far back as 2011 in our system. In addition to the aforementioned, thepatient reported a history of seasonal allergic rhinitis along with nasal polyposis and sinus disease, for which he has been managed in the past by Dr. Morrow of ENT. 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 He is now semiretired working in the [employer] industry. He does have a prior smoking history of approximately 9 pack years having quit completely in 1968. He also reported prior secondhand smoke exposure. The patient does currently keep 1 dog as a pet in his home environment. He has not had exacerbations of his asthma since last evaluation. He has not required antibiotics or oral prednisone. Today the patient reports that he seldom coughs. He does have shortness of breath on occasion with exertion. He does wheeze on occasion. He denies chest pain and chest tightness. He denies fever, chills, body aches. He has remained compliant with Fasenra injections. He has not experienced injection site reaction and reports that this medication has very effective for him. He is not using his air duo inhaler as he reports that he forgets. He does take other medications in the morning. He does not have difficulty obtaining the inhaler due to cost. He has not routinely used albuterol on a daily basis. He does wood working on a daily basis and is working in a well ventilated area. The patient is using BiPAP without significant air leak or snore. He denies oral dryness. He denies headaches. He does not nap. Nocturia will occur on occasion x 1. He does nap on occasion. He reports feeling rested if he has obtained enough sleep. There are no concerns about the air pressure. He is reporting good compliance. He is using a nasal style mask. He is using ferrous gluconate and is taking it with Vitamin C. The patient is a former smoker. 6-pack-year total and quit 56 years ago. PFT from November 02, 2024 shows partially reversible mild large airway obstructive ventilatory defect with preserved lung volumes and diffusion capacity. The patient had not been compliant with inhaler therapy. 6-minute walk test from November 07, 2024 shows no significant exertional oxygen desaturation and there is no indication for the use of supplemental oxygen at this time. Ferritin level from December 07, 2024 is 38 ng/mL. Documentation reviewed with patient today includes: Compliance download from July 25, 2025 shows he is using BiPAP at 10 over 6 cm, 100% compliant with therapy, using the device 6 hours and 11 minutes nightlyaverage. Minimal air leak and AHI is 1.9. Intake Vital Signs 03/28/25 07:33 08/01/25 08:31 Height 6 ft 6 ft Weight: 221 lb BMI 29.9 BP 130/70 H Blood Pressure Location Rt brachial Position Sitting Respiration 20 H Pulse 72 Pulse Source Monitor Temp 97.4 F L Temperature Source Temporal Artery Pulse Oximetry (%) 94 Oxygen Delivery Method room air Intake Visit Reasons: 4 M FU Chief Complaint: Fasenra Historiographer Required: No DME Vendor: [email or web address] Accompanied by: Self Is patient in pain?: No Allergies gluten Adverse Reaction (Verified 08/01/25 09:38) Other Medications ?Medication ?Instructions ?Recorded ?Confirmed ?Type pantoprazole 40 mg tablet,delayed 40 mg PO QHS gerd 08/01/25 History release tamsulosin 0.4 mg capsule 0.4 mg PO QHS Enlarged prost ate 07/12/17 08/01/25 History ergocalciferol (vitamin D2) 1,250 50,000 unit PO WE 08/01/25 History mcg (50,000 unit) capsule levothyroxine 50 mcg tablet 100 mcg PO DAILY 03/21/22 08/01/25 History fluticasone propionate 50 2 spray NASAL BID PRN Conges tion 03/25/22 08/01/25 Rx mcg/actuation nasal #16 grams spray,suspension pramipexole 1.5 mg tablet 1.5 mg PO DAILY 11/25/23 History finasteride 5 mg tablet 5 mg PO DAILY 01/05/2408/01 History bimatoprost 0.03 % eye drops 1 drp ophthalmic (eye) QD AY 10/04/24 08/01/25 History denosumab 60 mg/mL subcutaneous 60 mg subcut [id number] 10/04/24 08/01/25 History syringe (Prolia) diclofenac potassium 50 mg tablet 50 mg PO TID PRN brynn n 10/04/24 08/01/25 History fluticasone 232 mcg-salmeterol 14 1 inh inhalation BID #1 ea 10/04/24 08/01/25 Rx mcg/actuation breath activated powdr ferrous gluconate 324 mg (37.5 mg 324 mg PO BID #60 ta bs 12/07/24 08/01/25 Rx iron) tablet albuterol sulfate 90 mcg/actuation 2 inh inhalation Q4 -6H PRN 03/28/25 08/01/25 Rx aerosol inhaler shortness of breath or wheez ing #8.5 grams donepezil 5 mg tablet 5 mg PO QHS 03/28/25 5 History furosemide 40 mg tablet (Lasix) 40 mg PO DAILY 5 08/01/25 History benralizumab 30 mg/mL subcutaneous 30 mg subcut .Q8w 0 07/11/25 08/01/25 History syringe (Fasenra) Have you fallen in the past year?: Yes PFSH Medical History Venous hypertension, chronic, with ulcer Venous stasis dermatitis Localized swelling of both lower legs Bilateral leg edema Non-pressure chronic ulcer of ankle with fat [...] disease Asthma Surgical History History of colonoscopy (~09/24/20) History of hernia repair History of spinal surgery (~2016) History of repair of hip fracture History of cholecystectomy colonoscopy Family History Father prostate cancer Social History Smoking Status: Former smoker alcohol intake: never substance use type: does not use Review of Systems Resp Respiratory: Yes as per HPI Exam Const Constitutional: Positive conversant, cooperative, in no acute respiratory distress, healthy appearing, well developed and well nourished; Negative ill appearing Head Head: Yes normocephalic and Yes atraumatic Eyes Eye: Positive clear conjunctiva Ears Ear: Positive hard of hearing and external ears normal Nose Nose: Yes external nose normal Mouth Mouth: Positive oral mucosae normal; Negative oral thrush present Neck Neck: Positive normal visual inspection and trachea midline Chest Wall Chest: Positive symmetric chest movement Resp lung sounds: Positive good air exchange, wheeze present on forced exhalation andnormal respiratory effort; Negative rhonchi, rales, prolonged expiratory time or use of accessory muscles Cardio Cardiac: Positive regular rate and regular rhythm; Negative murmur GI GI: Positive normal to inspection Genitourinary: Positive deferred Musc Musculoskeletal: Positive steady gait and ROM normal Skin Pulmonary Skin Exam: Positive intact; Negative rash or erythema Pulses Pulse: Yes radial pulses present Extremities Extremities: Yes capillary refill normal, No clubbing and No cyanosis Neuro Neurologic: Yes no focal neuro deficits, Yes conversant and Yes normal cognition Psych Appearance: Positive grossly normal Mental Status: Positive mental status grossly normal Mood: Positive congruent mood Affect: Positive normal affect Coding Level of Care Code Off vis,est,level 4 Diagnoses Severe persistent asthma, uncomplicated J45.50 JOSHUA (obstructive sleep apnea) G47.33 Solitary pulmonary nodule R91.1 Restless leg syndrome G25.81 Clinical Quality Measures Falls Risk Screening/Assistive Devices Have you fallen in the past year?: Yes 08/01/25 1010 <Electronically signed by Ivelisse desouza NP-C> Date _ Ivelisse Gould NP-C Cosigner Signature: Date (if applicable) CC: ~ [facility] [employer] Work Phone: Reason for referral (narrative)* Diagnostic Procedure Only (Urgent) - Closed Specialty Diagnoses / Procedures Referred By Contac t Referred To Contact XR IMAGING Diagnoses Injury of right shoulder, initial encounter Procedures XR SHOULDER GENERAL 3V OR MORE AP/TRUE AP/OTHER RIGHT RADEX SHOULDER COMPLETE MINIMUM 2 VIEWS Jaqui Felton APRN.COFFEE SHOP ATTENDANT [address] [place] [address] [place] [address] Referral ID Status Reason Start Date Expiration Date V isits Requested Visits Authorized [id number] Closed Auto-Generate d Referral 08/08/2024 09/07/2025 1 1 [facility]No reason for referral information availableWAvita Health [facility] Work Phone: Reason for visit Narrative* Diagnostic Procedure Only (Urgent) - Closed Specialty Diagnoses / Procedures Referred By Contac t Referred To Contact XR IMAGING Diagnoses Injury of right shoulder, initial encounter Procedures XR SHOULDER GENERAL 3V OR MORE AP/TRUE AP/OTHER RIGHT RADEX SHOULDER COMPLETE MINIMUM 2 VIEWS Jaqui Felton APRN.COFFEE SHOP ATTENDANT [address] [place] [address] [place] [address] Referral ID Status Reason Start Date Expiration Date V isits Requested Visits Authorized [id number] Closed Auto-Generate d Referral 08/08/2024 09/07/2025 1 1 [facility] Summary Purpose Family History No Family History Records Found Relationship Condition Age at Onset Recorded Date/T yoni father Unknown Advance Directives No Advanced Directives Records Found Advance Directive Response Recorded Date/ Time Advance Directives No November 23, 2020 3:13pm Living Will No November 23 3:13pm Power of Debone Supervisor No November 23, 2020 3:13pm Advance Directive Response Recorded Date/ Time Advance Directives No November 23, 2020 2:13pm Living Will No November 23 2:13pm Power of Debone Supervisor No November 23, 2020 2:13pm Advance Directive Response Recorded Date/ Time Name of Medical Power of Debone Supervisor gerardo leivacici weiss January 05, 2024 9:31am Advance Directives No January 05 7:27am Living Will No January 06, 2024 7:27am Power of Debone Supervisor No January 05 7:27am Advance Directive Response Recorded Date/ Time Living Will No January 06, 2024 7:27am Power of Debone Supervisor No January 05 7:27am Living Will No November 05 2:09pm Power of Debone Supervisor No November 05, 2024 2:09pm Living Will No September 12 6:53pm Power of Debone Supervisor No September 12, 2024 6:53pm Advance Directives No January 05 7:27am Advance Directive Response Recorded Date/ Time Living Will No January 06, 2024 7:27am Do you have a Healthcare Power of Debone Supervisor? No January 06, 2024 7:27am Living Will No November 05 2:09pm Do you have a Healthcare Power of Debone Supervisor? No November 05, 2024 2:09pm Advance Directives No January 05 7:27am Advance Directive Response Recorded Date/ Time Living Will No November 05 2:09pm Do you have a Healthcare Power of Debone Supervisor? No November 05, 2024 2:09pm Advance Directives No January 05 7:27am Advance Directive Response Recorded Date/ Time Advance Directives No January 05 7:27am Advance Directive Response Recorded Date/ Time Living Will No April 13, 2025 7:36am Do you have a Healthcare Power of Debone Supervisor? 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 Burns wanted pt seen March 01 9:17am LOCALIZED EDEMA March 02, 2025 6:51p m LOCALIZED EDEMA March 14, 2025 9:51a m STAT- R/O DVT March 16, 2025 9:00a m 4 M FU March 28, 2025 9:21 am FASENRA March 28, 2025 10:1 1am STAT- R/O DVT April 12, 2025 3:00 pm Venous insufficiency (chronic) (peripher al) April 13, 2025 7:10am Venous insufficiency (chronic) (peripher al) April 13, 2025 8:50am PROLIA April 14, 2025 12:1 7pm Reason for Visit Admit Date Bilateral lower extremity edema February 9:17am Non-pressure chronic ulcer of left calf with fat layer exposed March 01, 2025 9:17am Venous insufficiency (chronic) (peripher al) March 01, 2025 9:17am Bilateral lower extremity edema February 9:51am History of cholecystectomy March 14 9:51am History of hernia repair March 14, 2025 9:51am History of repair of hip fracture March 142024 9:51am History of spinal surgery March 14, 2025 9:51am 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 March 14, [...] March 16, 2025 9:00am Non-pressure chronic ulcer of left calf with fat layer exposed March 16, 2025 9:00am Solitary pulmonary nodule March 28 9:21am JOSHUA (obstructive sleep apnea) March 28, 2025 9:21am Restless leg syndrome March 28, 2025 9: 21am Severe persistent asthma, uncomplicated March 28, 2025 9:21am Bilateral lower extremity edema March 3:00pm Venous stasis ulcer of ankle with fat la heidy exposed April 12, 2025 3:00pm Non-pressure chronic ulcer of left calf with fat layer exposed April 12, 2025 3:00pm Venous insufficiency (chronic) (peripher al) April 12, 2025 3:00pm Venous stasis ulcer of ankle with fat la heidy exposed April 13, 2025 7:10am Chief Complaint Admit Date JOSE DANIEL SLHD PAIN/RX HERE December 28, 2024 9 :30am FASENRA January 24, 2025 1:57 pm R/O DVT February 16, 2025 10:18a m Dr. Burns wanted pt seen March 01 9:17am LOCALIZED EDEMA March 02, 2025 6:51p m LOCALIZED EDEMA March 14, 2025 9:51a m STAT- R/O DVT March 16, 2025 9:00a m 4 M FU March 28, 2025 9:21 am FASENRA March 28, 2025 10:1 1am STAT- R/O DVT April 12, 2025 3:00 pm Venous insufficiency (chronic) (peripher al) April 13, 2025 7:10am Venous insufficiency (chronic) (peripher al) April 13, 2025 8:50am PROLIA April 14, 2025 12:1 7pm POST OP April 17, 2025 8:45 am Chief Complaint Admit Date JOSE DANIEL SLHD PAIN/RX HERE December 28, 2024 9 :30am FASENRA January 24, 2025 1:57 pm R/O DVT February 16, 2025 10:18a m Dr. Burns wanted pt seen March 01 9:17am LOCALIZED EDEMA March 02, 2025 6:51p m LOCALIZED EDEMA March 14, 2025 9:51a m STAT- R/O DVT March 16, 2025 9:00a m 4 M FU March 28, 2025 9:21 am FASENRA March 28, 2025 10:1 1am STAT- R/O DVT April 12, 2025 3:00 pm Venous insufficiency (chronic) (peripher al) April 13, 2025 7:10am Venous insufficiency (chronic) (peripher al) April 13, 2025 8:50am PROLIA April 14, 2025 12:1 7pm POST OP April 17, 2025 8:45 am STAT- R/O DVT April 20, 2025 8:46a m Post ablation 2-4 WK FU April 26, 2025 1 0:44am Reason for Visit Admit Date Bilateral lower extremity edema February 9:17am Non-pressure chronic ulcer of left calf with fat layer exposed March 01, 2025 9:17am Venous insufficiency (chronic) (peripher al) March 01, 2025 9:17am Bilateral lower extremity edema February 9:51am History of cholecystectomy March 14 9:51am History of hernia repair March 14, 2025 9:51am History of repair of hip fracture March 142024 9:51am History of spinal surgery March 14, 2025 9:51am 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 March 14, [...] March 16, 2025 9:00am Non-pressure chronic ulcer of left calf with fat layer exposed March 16, 2025 9:00am Solitary pulmonary nodule March 28 9:21am JOSHUA (obstructive sleep apnea) March 28, 2025 9:21am Restless leg syndrome March 28, 2025 9: 21am Severe persistent asthma, uncomplicated March 28, 2025 9:21am Bilateral lower extremity edema March 3:00pm Venous stasis ulcer of ankle with fat la heidy exposed April 12, 2025 3:00pm Non-pressure chronic ulcer of left calf with fat layer exposed April 12, 2025 3:00pm Venous insufficiency (chronic) (peripher al) April 12, 2025 3:00pm Venous stasis ulcer of ankle with fat la heidy exposed April 13, 2025 7:10am Bilateral lower extremity edema April 8:46am Venous stasis ulcer of ankle with fat la heidy exposed April 20, 2025 8:46am Non-pressure chronic ulcer of left calf with fat layer exposed April 20, 2025 8:46am Venous insufficiency (chronic) (peripher al) April 20, 2025 8:46am Chief Complaint Admit Date FASENJanuary 24, 2025 1:57 pm R/O DVT February 16, 2025 10:18a m Dr. Burns wanted pt seen March 01 9:17am LOCALIZED EDEMA March 02, 2025 6:51p m LOCALIZED EDEMA March 14, 2025 9:51a m STAT- R/O DVT March 16, 2025 9:00a m 4 M FU March 28, 2025 9:21 am FASENRA March 28, 2025 10:1 1am STAT- R/O DVT April 12, 2025 3:00 pm Venous insufficiency (chronic) (peripher al) April 13, 2025 7:10am Venous insufficiency (chronic) (peripher al) April 13, 2025 8:50am PROLIA April 14, 2025 12:1 7pm POST OP April 17, 2025 8:45 am Post ablation 2-4 WK FU April 26, 2025 1 0:44am STAT- R/O DVT May 15, 2025 3:00 pm FASENRA May 16, 2025 10:2 6am Reason for Visit Admit Date Bilateral lower extremity edema February 9:17am Non-pressure chronic ulcer of left calf with fat layer exposed March 01, 2025 9:17am Venous insufficiency (chronic) (peripher al) March 01, 2025 9:17am Bilateral lower extremity edema February 9:51am History of cholecystectomy March 14 9:51am History of hernia repair March 14, 2025 9:51am History of repair of hip fracture March 142024 9:51am History of spinal surgery March 14, 2025 9:51am 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 March 14, [...] March 16, 2025 9:00am Non-pressure chronic ulcer of left calf with fat layer exposed March 16, 2025 9:00am Solitary pulmonary nodule March 28 9:21am JOSHUA (obstructive sleep apnea) March 28, 2025 9:21am Restless leg syndrome March 28, 2025 9: 21am Severe persistent asthma, uncomplicated March 28, 2025 9:21am Bilateral lower extremity edema March 3:00pm Venous stasis ulcer of ankle with fat la heidy exposed April 12, 2025 3:00pm Non-pressure chronic ulcer of left calf with fat layer exposed April 12, 2025 3:00pm Venous insufficiency (chronic) (peripher al) April 12, 2025 3:00pm Venous stasis ulcer of ankle with fat la heidy exposed April 13, 2025 7:10am Bilateral lower extremity edema April 10:44am Non-pressure chronic ulcer of left calf with fat layer exposed April 26, 2025 10:44am Venous insufficiency (chronic) (peripher al) April 26, 2025 10:44am Bilateral lower extremity edema April 3:00pm Venous stasis ulcer of ankle with fat la heidy exposed May 15, 2025 3:00pm Non-pressure chronic ulcer of left calf with fat layer exposed May 15, 2025 3:00pm Venous insufficiency (chronic) (peripher al) May 15, 2025 3:00pm Chief Complaint Admit Date [facility] January 24, 2025 1:57 pm R/O DVT February 16, 2025 10:18a m Dr. Burns wanted pt seen March 01 9:17am LOCALIZED EDEMA March 02, 2025 6:51p m LOCALIZED EDEMA March 14, 2025 9:51a m STAT- R/O DVT March 16, 2025 9:00a m 4 M FU March 28, 2025 9:21 am [facility], [facility] 10:1 1am STAT- R/O DVT April 12, 2025 3:00 pm Venous insufficiency (chronic) (peripher al) April 13, 2025 7:10am Venous insufficiency (chronic) (peripher al) April 13, 2025 8:50am PROLIA April 14, 2025 12:1 7pm POST OP April 17, 2025 8:45 am Post ablation 2-4 WK FU April 26, 2025 1 0:44am FASENRA May 16, 2025 10:2 6am STAT- R/O DVT May 18, 2025 3:11 pm Reason for Visit Admit Date Bilateral lower extremity edema February 9:17am Non-pressure chronic ulcer of left calf with fat layer exposed March 01, 2025 9:17am Venous insufficiency (chronic) (peripher al) March 01, 2025 9:17am Bilateral lower extremity edema February 9:51am History of cholecystectomy March 14 9:51am History of hernia repair March 14, 2025 9:51am History of repair of hip fracture March 142024 9:51am History of spinal surgery March 14, 2025 9:51am 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 March 14, [...] March 16, 2025 9:00am Non-pressure chronic ulcer of left calf with fat layer exposed March 16, 2025 9:00am Solitary pulmonary nodule March 28 9:21am JOSHUA (obstructive sleep apnea) March 28, 2025 9:21am Restless leg syndrome March 28, 2025 9: 21am Severe persistent asthma, uncomplicated March 28, 2025 9:21am Bilateral lower extremity edema March 3:00pm Venous stasis ulcer of ankle with fat la heidy exposed April 12, 2025 3:00pm Non-pressure chronic ulcer of left calf with fat layer exposed April 12, 2025 3:00pm Venous insufficiency (chronic) (peripher al) April 12, 2025 3:00pm Venous stasis ulcer of ankle with fat la heidy exposed April 13, 2025 7:10am Bilateral lower extremity edema April 10:44am Non-pressure chronic ulcer of left calf with fat layer exposed April 26, 2025 10:44am Venous insufficiency (chronic) (peripher al) April 26, 2025 10:44am Bilateral lower extremity edema April 3:11pm Venous stasis ulcer of ankle with fat la heidy exposed May 18, 2025 3:11pm Non-pressure chronic ulcer of left calf with fat layer exposed May 18, 2025 3:11pm Venous insufficiency (chronic) (peripher al) May 18, 2025 3:11pm Chief Complaint Admit Date Dr. Burns wanted pt seen March 01 9:17am LOCALIZED EDEMA March 02, 2025 6:51p m LOCALIZED EDEMA March 14, 2025 9:51a m STAT- R/O DVT March 16, 2025 9:00a m 4 M FU March 28, 2025 9:21 am FASENRA March 28, 2025 10:1 1am STAT- R/O DVT April 12, 2025 3:00 pm Venous insufficiency (chronic) (peripher al) April 13, 2025 7:10am Venous insufficiency (chronic) (peripher al) April 13, 2025 8:50am PROLIA April 14, 2025 12:1 7pm POST OP April 17, 2025 8:45 am Post ablation 2-4 WK FU April 26, 2025 1 0:44am FASENRA May 16, 2025 10:2 6am STAT- R/O DVT May 18, 2025 3:11 pm STAT- R/O DVT June 15, 2025 9: 15am Reason for Visit Admit Date Bilateral lower extremity edema February 9:17am Non-pressure [...] March 14, 2025 9:51am 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 March 14, [...] fat layer exposed March 16, 2025 9:00am Solitary pulmonary nodule March 28 9:21am JOSHUA (obstructive sleep apnea) March 28, 2025 9:21am Restless leg syndrome March 28, 2025 9: 21am Severe persistent asthma, uncomplicated March 28, 2025 9:21am Bilateral lower extremity edema March 3:00pm Venous stasis ulcer of ankle with fat la heidy exposed April 12, 2025 3:00pm Non-pressure chronic ulcer o f left calf with fat layer exposed April 12, 2025 3:00pm Venous insufficiency (chronic) (peripher al) April 12, 2025 3:00pm Venous stasis ulcer of ankle with fat la heidy exposed April 13, 2025 7:10am Bilateral lower extremity edema April 10:44am Non-pressure chronic ulcer o f left calf with fat layer exposed April 26, 2025 10:44am Venous insufficiency (chronic) (peripher al) April 26, 2025 10:44am Bilateral lower extremity edema April 3:11pm Venous stasis ulcer of ankle with fat la heidy exposed May 18, 2025 3:11pm Non-pressure chronic ulcer o f left calf with fat layer exposed May 18, 2025 3:11pm Venous insufficiency (chronic) (peripher al) May 18, 2025 3:11pm Bilateral lower extremity edema May 202024 9:15am Cellulitis of left lower limb May 9:15am Venous stasis ulcer of ankle with fat la heidy exposed June 15, 2025 9:15am Non-pressure chronic ulcer o f left calf with fat layer exposed June 15, 2025 9:15am Venous insufficiency (chronic) (peripher al) June 15, 2025 9:15am Chief Complaint Admit Date 4 M FU March 28, 2025 9:21 am FASENRA March 28, 2025 10:1 1am STAT- R/O DVT April 12, 2025 3:00 pm Venous insufficiency (chronic) (peripher al) April 13, 2025 7:10am Venous insufficiency (chronic) (peripher al) April 13, 2025 8:50am PROLIA April 14, 2025 12:1 7pm POST OP April 17, 2025 8:45 am Post ablation 2-4 WK FU April 26, 2025 1 0:44am FASENRA May 16, 2025 10:2 6am STAT- R/O DVT May 18, 2025 3:11 pm STAT- R/O DVT June 15, 2025 9: 15am FASENRA July 11, 2025 1:53pm STAT- R/O DVT July 18, 2025 11:00am Reason for Visit Admit Date Solitary pulmonary nodule March 28 9:21am JOSHUA (obstructive sleep apnea) March 28, 2025 9:21am Restless leg syndrome March 28, 2025 9: 21am Severe persistent asthma, uncomplicated March 28, 2025 9:21am Bilateral lower extremity edema March 3:00pm Venous stasis ulcer of ankle with fat la heidy exposed April 12, 2025 3:00pm Non-pressure chronic ulcer o f left calf with fat layer exposed April 12, 2025 3:00pm Venous insufficiency (chronic) (peripher al) April 12, 2025 3:00pm Venous stasis ulcer of ankle with fat la heidy exposed April 13, 2025 7:10am Bilateral lower extremity edema April 10:44am Non-pressure chronic ulcer o f left calf with fat layer exposed April 26, 2025 10:44am Venous insufficiency (chronic) (peripher al) April 26, 2025 10:44am Bilateral lower extremity edema April 3:11pm Venous stasis ulcer of ankle with fat la heidy exposed May 18, 2025 3:11pm Non-pressure chronic ulcer o f left calf with fat layer exposed May 18, 2025 3:11pm Venous insufficiency (chronic) (peripher al) May 18, 2025 3:11pm Bilateral lower extremity edema May 202024 9:15am Cellulitis of left lower limb May 9:15am Venous stasis ulcer of ankle with fat la heidy exposed June 15, 2025 9:15am Non-pressure chronic ulcer o f left calf with fat layer exposed June 15, 2025 9:15am Venous insufficiency (chronic) (peripher al) June 15, 2025 9:15am Bilateral lower extremity edema Septembe r 2024 11:00am Non-pressure chronic ulcer o f ankle with fat layer exposed July 18, 2025 11:00am Venous stasis ulcer of ankle with fat la heidy exposed July 18, 2025 11:00am Venous insufficiency (chronic) (peripher al) July 18, 2025 11:00am Chief Complaint Admit Date POST OP April 17, 2025 8:45 am Post ablation 2-4 WK FU April 26, 2025 1 0:44am FASENRA May 16, 2025 10:2 6am STAT- R/O DVT May 18, 2025 3:11 pm STAT- R/O DVT June 15, 2025 9: 15am FASENRA July 11, 2025 1:53pm STAT- R/O DVT July 18, 2025 11:00am STAT- R/O DVT July 18, 2025 4:06pm STAT- R/O DVT July 25, 2025 10 :47am 4 M FU August 01, 2025 9 :37am SUSPECT POSS VENOUS OUFLOW OBSTRUCTION L T LEG August 01, 2025 2:49pm SUSPECT POSS VENOUS OUFLOW OBSTRUCTION L T LEG August 08, 2025 11:53am SUSPECT POSS VENOUS OUFLOW OBSTRUCTION L T LEG August 11, 2025 12:45pm Reason for Visit Admit Date Bilateral lower extremity edema April 10:44am Non-pressure chronic ulcer o f left calf with fat layer exposed April 26, 2025 10:44am Venous insufficiency (chronic) (peripher al) April 26, 2025 10:44am Bilateral lower extremity edema April 3:11pm Venous stasis ulcer of ankle with fat la heidy exposed May 18, 2025 3:11pm Non-pressure chronic ulcer o f left calf with fat layer exposed May 18, 2025 3:11pm Venous insufficiency (chronic) (peripher al) May 18, 2025 3:11pm Bilateral lower extremity edema May 202024 9:15am Cellulitis of left lower limb May 9:15am Venous stasis ulcer of ankle with fat la heidy exposed June 15, 2025 9:15am Non-pressure chronic ulcer o f left calf with fat layer exposed June 15, 2025 9:15am Venous insufficiency (chronic) (peripher al) June 15, 2025 9:15am Bilateral lower extremity edema Septembe r 2024 11:00am Delayed wound healing July 18 11:00am History of cholecystectomy June 11:00am History of esophagogastroduodenoscopy (E GD) July 18, 2025 11:00am History of hernia repair July 18, 2025 11:00am History of repair of hip fracture Septem walt 2024 11:00am History of spinal surgery June 11:00am Localized swelling of both lower legs Se ptember 2024 11:00am Non-pressure chronic ulcer o f ankle with fat layer exposed July 18, 2025 11:00am Ulcer of extremity due to chronic venous insufficiency July 18, 2025 11:00am Venous stasis dermatitis July 18, 2025 11:00am Venous stasis ulcer July 18, 2025 11:00am Venous stasis ulcer of ankle with fat la heidy exposed July 18, 2025 11:00am Asthma July 18, 2025 11:00am Celiac disease July 18, 2025 11:00am GERD (gastroesophageal reflux disease) S eptember 2024 11:00am JOSHUA (obstructive sleep apnea) July 18, 2025 11:00am Osteopenia July 18, 2025 11:00am Restless leg syndrome July 18 11:00am Venous hypertension, chronic, with ulcer July 18, 2025 11:00am Venous insufficiency (chronic) (peripher al) July 18, 2025 11:00am Solitary pulmonary nodule August 01, 2025 9:37am JOSHUA (obstructive sleep apnea) August 012024 9:37am Restless leg syndrome August 01, 2025 9:37am Severe persistent asthma, uncomplicated August 01, 2025 9:37am Acquired lymphedema of lower extremity O ctober 2024 12:45pm Bilateral lower extremity edema August 11, 2025 12:45pm Delayed wound healing August 11, 2025 12:45pm History of cholecystectomy August 11, 2025 12:45pm History of esophagogastroduodenoscopy (E GD) August 11, 2025 12:45pm History of hernia repair August 11 025 12:45pm History of repair of hip fracture Octobe r 2024 12:45pm History of spinal surgery August 11, 2025 12:45pm Localized swelling of both lower legs Oc tober 2024 12:45pm Ulcer of extremity due to chronic venous insufficiency August 11, 2025 12:45pm Venous stasis dermatitis August 11 025 12:45pm Venous stasis ulcer August 11, 2025 1 2:45pm Venous stasis ulcer of ankle with fat la heidy exposed August 11, 2025 12:45pm Asthma August 11, 2025 1 2:45pm Celiac disease August 11, 2025 1 2:45pm GERD (gastroesophageal reflux disease) O ctober 2024 12:45pm JOSHUA (obstructive sleep apnea) August 112024 12:45pm Osteopenia August 11, 2025 1 2:45pm Restless leg syndrome August 11, 2025 12:45pm Venous hypertension, chronic, with ulcer August 11, 2025 12:45pm Venous insufficiency (chronic) (peripher al) August 11, 2025 12:45pm Additional Source Comments (unrecognized sect ion and content) No Status Records FoundNo Status Records FoundNo Status Records FoundNo Status Records FoundNo Status Records FoundNo Status Records Found INFORMATION SOURCE (unrecogn ized section and content) DATE CREATED AUTHOR 05/17/2018 [facility] DATE CREATED AUTHOR AUTHOR'S ORGANIZ ATION 02/10/2019 [facility] DATE CREATED AUTHOR AUTHOR'S ORGANIZ ATION 02/10/2019 [facility] DATE CREATED AUTHOR AUTHOR'S ORGANIZ ATION 09/11/2022 [facility] DATE CREATED AUTHOR AUTHOR'S ORGANIZ ATION 08/09/2024 [facility] DATE CREATED AUTHOR AUTHOR'S ORGANIZ ATION 08/30/2025 [facility] Goals (unrecognized section and content) Goals [...] this informatio n is protected by the [facility] of Alcohol and Drug Abuse Patient Records regulations: The Federal rules restrict any use of the information to criminally investigate or prosecute any alcohol or drug abuse patient.[facility] the event this information is protected by the Federal Confidentiality of Alcohol and Drug Abuse Patient Records regulations: The Federal rules restrict any use of the information to criminally investigate or prosecute any alcohol or drug abuse patient.[facility] the event this information is protected by the Federal Confidentiality of Alcohol and Drug Abuse Patient Records regulations: The Federal rules restrict any use of the information to criminally investigate or prosecute any alcohol or drug abuse patient.[facility] the event this information is protected by the Federal Confidentiality of Alcohol and Drug Abuse Patient Records regulations: The Federal rules restrict any use of the information to criminally investigate or prosecute any alcohol or drug abuse patient.[facility] the event this information is protected by the Federal Confidentiality of Alcohol and Drug Abuse Patient Records regulations: The Federal rules restrict any use of the information to criminally investigate or prosecute any alcohol or drug abuse patient.[facility] the event this information is protected by the Federal Confidentiality of Alcohol and Drug Abuse Patient Records regulations: The Federal rules restrict any use of the information to criminally investigate or prosecute any alcohol or drug abuse patient.[facility] the event this information is protected by the Federal Confidentiality of Alcohol and Drug Abuse Patient Records regulations: The Federal rules restrict any use of the information to criminally investigate or prosecute any alcohol or drug abuse patient.[facility] Reason for Visit (unrecogniz ed section [...] Care Teams (unrecognized sec tion and content) Stone Paver Relationship Specialty Start Date End Date Peter Finney MD PCP - General Family Medicine 11/04/16 Stone Paver Relationship Specialty Start Date End Date Randa Joseph DO [address] [place] [address] PCP - General Family Medicine 09/10/22 Stone Paver Relationship Specialty Start Date End Date VamshiRanda YouDO [address] [place], [place] [id number] PCP - General Family Medicine 09/10/22 Team Status: Active Member Role Status Dates Dr. Peter Finney MD Family Provider Active Dr. Randa Joseph DO Primary Care Provider Active Team Status: Inactive Member Role Status Dates Dr. Peter Finney MD Referring Provider Active Dr. Abel Mcgee DO Attending Provider Active Dr. aRnda Joseph DO Primary Care Provider Active Team [...] DO Primary Care Provider Active Neris Tovar TEA LEAF READER, TEA LEAF READER-C Attending Provider, Referrin g Provider Active Team [...] Alvaro Moss MD Attending Provider, Referring P vazquez Active Team Status: Inactive Member Role Status Dates Dr. Randa Joseph DO Primary Care Provider Active Dr. Ray Guajardo MD Attending Provider, Referring Provider Active Team Status: Inactive Member Role Status Dates Dr. Randa Joseph DO Primary Care Provider Active Dr. Alvaro Moss MD Attending Provider, Referring P robrien Active Team Status: Inactive Member Role Status Dates Dr. Randa Joseph , DO Primary Care Prov ider, Attending Provider, [...] Member Role Status Dates Dr. Randa Joseph , DO Primary Care Provider, Referrin g Provider [...] MD Referring Provider, Other Pr ovider Active HAYLEE Moon Attending Provider Active Team Status: Active Member [...] Provider Active XENA Solorio Attending Provider Active Stone Paver Relationship Specialty Start Date End Date Randa Joseph DO [address] [place], [place] [id number] PCP - General Family Medicine 09/10/22 Stone Paver Relationship Specialty Start Date End Date Randa Joseph [address] [place], [place] [address] PCP - General Family Medicine 09/10/22 Stone Paver Relationship Specialty Start Date End Date Randa Joseph [address] [place], [place] [address] PCP - General Family Medicine 09/10/22 Team [...] 2024 End: October 04, 2024 Neris Tovar TEA LEAF READER, TEA LEAF READER-C Attending Provider Active Start: October 04, 2024 End: October 04, 2024 Neris Tovar TEA LEAF READER, TEA LEAF READER-C Referring Provider Active Start: October 04, 2024 [...] November 02, 2024 End: November 02, 2024 HAYLEE Lee Attending Provider Active Start: November 02, 2024 End: November 02, 2024 Ivelisse Gould NP-Patricia Referring Provider Active Start: November 02, 2024 [...] End: November 07, 2024 Ivelisse Gould NP-C Attending Provider Active Start: November 07, 2024 [...] 2024 End: November 30, 2024 Neris Tovar TEA LEAF READER, TEA LEAF READER-C Attending Provider Active Start: November 30, 2024 End: November 30, 2024 Neris Tovar TEA LEAF READER, TEA LEAF READER-C Referring Provider Active Start: November 30, 2024 [...] 2025 End: January 24, 2025 Neris Tovar TEA LEAF READER, TEA LEAF READER-C Attending Provider Active Start: January 24, 2025 End: January 24, 2025 Neris Tovar TEA LEAF READER, TEA LEAF READER-C Referring Provider Active Start: January 24, 2025 [...] Referring Provider Active Start: February 27, 2025 ABDIRIZAK CrossM Attending Provider Active Start: February 27, 2025 [...] 2025 End: March 28, 2025 Ivelisse Gould TEA LEAF READER-C Attending Provider Active Start: March 28, 2025 End: March 28, 2025 Team Status: Inactive Member Role Status Dates Dr. Randa Joseph DO Primary Care Provider Active Start: March 28, 2025 End: March 28, 2025 Neris Tovar TEA LEAF READER, TEA LEAF READER-C Attending Provider Active Start: March 28, 2025 End: March 28, 2025 Neris Tovar TEA LEAF READER, TEA LEAF READER-C Referring Provider Active Start: March 28, 2025 End: March 28, 2025 Team Status: Active Member Role/Relationship Status Dates Dr. Randa Joseph DO Primary Care Provider Active Team Status: Inactive Member Role/Relationship Status Dates Dr. Randa Joseph DO Primary Care Provider Active Start: December 28, 2024 End: December 28, 2024 Dr. Randa Joseph DO Attending Provider Active Start: December 28, 2024 End: December 28, 2024 Dr. Randa Joseph DO Referring Provider Active Start: December 28, 2024 End: December 28, 2024 Team Status: Inactive Member Role/Relationship Status Dates Dr. Randa Joseph DO Primary Care Provider Active Start: January 24, 2025 End: January 24, 2025 Neris Tovar TEA LEAF READER, TEA LEAF READER-C Attending Provider Active Start: January 24, 2025 End: January 24, 2025 Neris Tovar TEA LEAF READER, TEA LEAF READER-C Referring Provider Active Start: January 24, 2025 End: January 24, 2025 Team Status: Inactive Member Role/Relationship Status Dates Dr. Randa Joseph DO Primary Care Provider Active Start: February 13, 2025 End: February 13, 2025 Dr. Randa Joseph DO Attending Provider Active Start: February 13, 2025 End: February 13, 2025 Team Status: Active Member Role/Relationship Status Dates Dr. Jose L Nagel MD Attending Provider Active Start: February 16, 2025 Dr. Merrill Burns DPM Referring Provider Active Start: February 16, 2025 Team Status: Inactive Member Role/Relationship Status Dates Dr. Randa Joseph DO Primary Care Provider Active Start: March 01, 2025 End: March 01, 2025 Dr. Randa Joseph DO Referring Provider Active Start: March 01, 2025 End: March 01, 2025 XENA Solorio Attending Provider Active Star t: March 01, 2025 End: March 01, 2025 Team Status: Active Member Role/Relationship Status Dates Dr. Randa Joseph DO Primary Care Provider Active Start: March 02, 2025 XENA Solorio Referring Provider Active Star t: March 02, 2025 XENA Solorio Other Provider Active Start: 2024 Dr. Jose L Nagel MD Attending Provider Active Start: March 02, 2025 Team Status: Inactive Member Role/Relationship Status Dates Dr. Randa Joseph DO Primary Care Provider Active Start: March 14, 2025 End: March 14, 2025 XENA Solorio Attending Provider Active Star t: March 14, 2025 End: March 14, 2025 XENA Solorio Referring Provider Active Star t: March 14, 2025 End: March 14, 2025 Team Status: Active Member Role/Relationship Status Dates Dr. Randa Joseph DO Primary Care Provider Active Start: March 14, 2025 Dr. Murray Mckee MD Attending Provider Active S tart: March 14, 2025 XENA Solorio Referring Provider Active Star t: March 14, 2025 Team Status: Inactive Member Role/Relationship Status Dates Dr. Randa Joseph DO Primary Care Provider Active Start: March 16, 2025 End: March 18, 2025 Dr. Randa Joseph DO Referring Provider Active Start: March 16, 2025 End: March 18, 2025 Dr. Merrill Burns DPM Attending Provider Active Start: March 16, 2025 End: March 18, 2025 Team Status: Inactive Member Role/Relationship Status Dates Dr. Randa Joseph DO Primary Care Provider Active Start: March 28, 2025 End: March 28, 2025 Dr. Randa Joseph DO Referring Provider Active Start: March 28, 2025 End: March 28, 2025 Ivelisse Gould NP-C Attending Provider Active Start: March 28, 2025 End: March 28, 2025 Team Status: Inactive Member Role/Relationship Status Dates Dr. Ranad Joseph DO Primary Care Provider Active Start: March 28, 2025 End: March 28, 2025 Neris Tovar TEA LEAF READER, TEA LEAF READER-C Attending Provider Active Start: March 28, 2025 End: March 28, 2025 Neris Tovar TEA LEAF READER, TEA LEAF READER-C Referring Provider Active Start: March 28, 2025 End: March 28, 2025 Team Status: Active Member Role/Relationship Status Dates Dr. Randa Joseph DO Primary Care Provider Active Start: April 12, 2025 Dr. Randa Joseph DO Referring Provider Active Start: April 12, 2025 Dr. Merrill Burns DPM Attending Provider Active Start: April 12, 2025 Team Status: Active Member Role/Relationship Status Dates Dr. Randa Joseph DO Primary Care Provider Active Start: April 13, 2025 Dr. Murray Mckee MD Attending Provider Active S tart: April 13, 2025 Dr. Murray Mckee MD Referring Provider Active S tart: April 13, 2025 Team Status: Active Member Role/Relationship Status Dates Dr. Randa Joseph DO Primary Care Provider Active Start: April 13, 2025 Dr. Murray Mckee MD Attending Provider Active S tart: April 13, 2025 Dr. Murray Mckee MD Referring Provider Active S tart: April 13, 2025 Dr. Murray Mckee MD Other Provider Active Start : April 13, 2025 Team Status: Inactive Member Role/Relationship Status Dates Dr. Randa Joseph DO Primary Care Provider Active Start: April 14, 2025 End: April 14, 2025 XENA MERRILL Attending Provider Active St art: April 14, 2025 End: April 14, 2025 XENA MERRILL Referring Provider Active St art: April 14, 2025 End: April 14, 2025 Team Status: Inactive Member Role/Relationship Status Dates Dr. Randa Joseph DO Primary Care Provider Active Start: April 12, 2025 End: April 17, 2025 Dr. Randa Joseph DO Referring Provider Active Start: April 12, 2025 End: April 17, 2025 Dr. Merrill Burns DPM Attending Provider Active Start: April 12, 2025 End: April 17, 2025 Team Status: Active Member Role/Relationship Status Dates Dr. Randa Joseph DO Primary Care Provider Active Start: April 17, 2025 XENA Solorio Attending Provider Active Star t: April 17, 2025 XENA Solorio Referring Provider Active Star t: April 17, 2025 Team Status: Active Member Role/Relationship Status Dates Dr. Randa Joseph DO Primary Care Provider Active Start: April 17, 2025 Dr. Murray Mckee MD Attending Provider Active S tart: April 17, 2025 Team Status: Inactive Member Role/Relationship Status Dates Dr. Randa Joseph DO Primary Care Provider Active Start: April 13, 2025 End: April 13, 2025 Dr. Murray Mckee MD Attending Provider Active S tart: April 13, 2025 End: April 13, 2025 Dr. Murray Mckee MD Referring Provider Active S tart: April 13, 2025 End: April 13, 2025 Team Status: Inactive Member Role/Relationship Status Dates Dr. Randa Joseph DO Primary Care Provider Active Start: April 17, 2025 End: April 17, 2025 XENA Solorio Attending Provider Active Star t: April 17, 2025 End: April 17, 2025 XENA Solorio Referring Provider Active Star t: April 17, 2025 End: April 17, 2025 Team Status: Active Member Role/Relationship Status Dates Dr. Randa Joseph DO Primary Care Provider Active Start: April 20, 2025 Dr. Randa Joseph DO Referring Provider Active Start: April 20, 2025 Dr. Merrill Burns DPM Attending Provider Active Start: April 20, 2025 Team Status: Inactive Member Role/Relationship Status Dates Dr. Randa Joseph DO Primary Care Provider Active Start: April 26, 2025 End: April 26, 2025 Dr. Randa Joseph DO Referring Provider Active Start: April 26, 2025 End: April 26, 2025 XENA Solorio Attending Provider Active Star t: April 26, 2025 End: April 26, 2025 Team Status: Inactive Member Role/Relationship Status Dates Dr. Randa Joseph DO Primary Care Provider Active Start: January 24, 2025 End: January 24, 2025 Neris Tovar TEA LEAF READER, TEA LEAF READER-C Attending Provider Active Start: January 24, 2025 End: January 24, 2025 Neris Tovar TEA LEAF READER, TEA LEAF READER-C Referring Provider Active Start: January 24, 2025 End: January 24, 2025 Team Status: Inactive Member Role/Relationship Status Dates Dr. Randa Joseph DO Primary Care Provider Active Start: February 13, 2025 End: February 13, 2025 Dr. Randa Joseph DO Attending Provider Active Start: February 13, 2025 End: February 13, 2025 Team Status: Active Member Role/Relationship Status Dates Dr. Jose L Nagel MD Attending Provider Active Start: February 16, 2025 [email or web address] CrossM Referring Provider Active Start: February 16, 2025 Team Status: Inactive Member Role/Relationship Status Dates Dr. Randa Joseph DO Primary Care Provider Active Start: March 01, 2025 End: March 01, 2025 Dr. Randa Joseph DO Referring Provider Active Start: March 01, 2025 End: March 01, 2025 XENA Solorio Attending Provider Active Star t: March 01, 2025 End: March 01, 2025 Team Status: Active Member Role/Relationship Status Dates Dr. Randa Joseph DO Primary Care Provider Active Start: March 02, 2025 XENA Solorio Referring Provider Active Star t: March 02, 2025 XENA Solorio Other Provider Active Start: 2024 Dr. Jose L Nagel MD Attending Provider Active Start: March 02, 2025 Team Status: Inactive Member Role/Relationship Status Dates Dr. Randa Joseph DO Primary Care Provider Active Start: March 14, 2025 End: March 14, 2025 XENA Solorio Attending Provider Active Star t: March 14, 2025 End: March 14, 2025 XENA Solorio Referring Provider Active Star t: March 14, 2025 End: March 14, 2025 Team Status: Active Member Role/Relationship Status Dates Dr. Randa Joseph DO Primary Care Provider Active Start: March 14, 2025 Dr. Murray Mckee MD Attending Provider Active S tart: March 14, 2025 XENA Solorio Referring Provider Active Star t: March 14, 2025 Team Status: Inactive Member Role/Relationship Status Dates Dr. Randa Joseph DO Primary Care Provider Active Start: March 16, 2025 End: March 18, 2025 Dr. Randa Joseph DO Referring Provider Active Start: March 16, 2025 End: March 18, 2025 Dr. Merrill Burns DPM Attending Provider Active Start: March 16, 2025 End: March 18, 2025 Team Status: Inactive Member Role/Relationship Status Dates Dr. Randa Joseph DO Primary Care Provider Active Start: March 28, 2025 End: March 28, 2025 Dr. Randa Joseph DO Referring Provider Active Start: March 28, 2025 End: March 28, 2025 Ivelisse Gould TEA LEAF READER-C Attending Provider Active Start: March 28, 2025 End: March 28, 2025 Team Status: Inactive Member Role/Relationship Status Dates Dr. Randa Joseph DO Primary Care Provider Active Start: March 28, 2025 End: March 28, 2025 Neris Tovar TEA LEAF READER, TEA LEAF READER-C Attending Provider Active Start: March 28, 2025 End: March 28, 2025 Neris Tovar TEA LEAF READER, TEA LEAF READER-C Referring Provider Active Start: March 28, 2025 End: March 28, 2025 Team Status: Inactive Member Role/Relationship Status Dates Dr. Randa Joseph DO Primary Care Provider Active Start: April 12, 2025 End: April 17, 2025 Dr. Randa Joseph DO Referring Provider Active Start: April 12, 2025 End: April 17, 2025 Dr. Merrill Burns DPM Attending Provider Active Start: April 12, 2025 End: April 17, 2025 Team Status: Inactive Member Role/Relationship Status Dates Dr. Randa Joseph DO Primary Care Provider Active Start: April 13, 2025 End: April 13, 2025 Dr. Murray Mckee MD Attending Provider Active S tart: April 13, 2025 End: April 13, 2025 Dr. Murray Mckee MD Referring Provider Active S tart: April 13, 2025 End: April 13, 2025 Team Status: Active Member Role/Relationship Status Dates Dr. Randa Joseph DO Primary Care Provider Active Start: April 13, 2025 Dr. Murray Mckee MD Attending Provider Active S tart: April 13, 2025 Dr. Murray Mckee MD Referring Provider Active S tart: April 13, 2025 Dr. Murray Mckee MD Other Provider Active Start : April 13, 2025 Team Status: Inactive Member Role/Relationship Status Dates Dr. Randa Joseph DO Primary Care Provider Active Start: April 14, 2025 End: April 14, 2025 XENA MERRILL Attending Provider Active St art: April 14, 2025 End: April 14, 2025 XENA MERRILL Referring Provider Active St art: April 14, 2025 End: April 14, 2025 Team Status: Inactive Member Role/Relationship Status Dates Dr. Randa Joseph DO Primary Care Provider Active Start: April 17, 2025 End: April 17, 2025 XENA Solorio Attending Provider Active Star t: April 17, 2025 End: April 17, 2025 XENA Solorio Referring Provider Active Star t: April 17, 2025 End: April 17, 2025 Team Status: Active Member Role/Relationship Status Dates Dr. Ranad Joseph DO Primary Care Provider Active Start: April 17, 2025 Dr. Murray Mckee MD Attending Provider Active S tart: April 17, 2025 XENA Solorio Referring Provider Active Star t: April 17, 2025 Team Status: Inactive Member Role/Relationship Status Dates Dr. Randa Joseph DO Primary Care Provider Active Start: April 26, 2025 End: April 26, 2025 Dr. Randa Joseph DO Referring Provider Active Start: April 26, 2025 End: April 26, 2025 XENA Solorio Attending Provider Active Star t: April 26, 2025 End: April 26, 2025 Team Status: Active Member Role/Relationship Status Dates Dr. Randa Joseph DO Primary Care Provider Active Start: May 15, 2025 Dr. Randa Joseph DO Referring Provider Active Start: May 15, 2025 Dr. Merrill Burns , JOVANY Attending Provider Active Start: May 15, 2025 Team Status: Inactive Member Role/Relationship Status Dates Dr. Randa Joseph DO Primary Care Provider Active Start: May 16, 2025 End: May 16, 2025 Neris Tovar TEA LEAF READER, TEA LEAF READER-C Attending Provider Active Start: May 16, 2025 End: May 16, 2025 Neris Tovar TEA LEAF READER, TEA LEAF READER-C Referring Provider Active Start: May 16, 2025 End: May 16, 2025 Team Status: Inactive Member Role/Relationship Status Dates Dr. Randa Joseph DO Primary Care Provider Active Start: May 16, 2025 End: May 16, 2025 Neris Tovar TEA LEAF READER, TEA LEAF READER-C Attending Provider Active Start: May 16, 2025 End: May 16, 2025 Neris Tovar TEA LEAF READER, TEA LEAF READER-C Referring Provider Active Start: May 16, 2025 End: May 16, 2025 Team Status: Inactive Member Role/Relationship Status Dates Dr. Randa Joseph DO Primary Care Provider Active Start: May 18, 2025 End: May 18, 2025 Dr. Randa Joseph DO Referring Provider Active Start: May 18, 2025 End: May 18, 2025 Dr. Merrill Burns DPM Attending Provider Active Start: May 18, 2025 End: May 18, 2025 Team Status: Inactive Member Role/Relationship Status Dates Dr. Randa Joseph DO Primary Care Provider Active Start: March 01, 2025 End: March 01, 2025 Dr. Randa Joseph DO Referring Provider Active Start: March 01, 2025 End: March 01, 2025 XENA Solorio Attending Provider Active Star t: March 01, 2025 End: March 01, 2025 Team Status: Active Member Role/Relationship Status Dates Dr. Randa Joseph DO Primary Care Provider Active Start: March 02, 2025 XENA Solorio Referring Provider Active Star t: March 02, 2025 XENA Solorio Other Provider Active Start: 2024 Dr. Jose L Nagel MD Attending Provider Active Start: March 02, 2025 Team Status: Inactive Member Role/Relationship Status Dates Dr. Randa Joseph DO Primary Care Provider Active Start: March 14, 2025 End: March 14, 2025 XENA Solorio Attending Provider Active Star t: March 14, 2025 End: March 14, 2025 XENA Solorio Referring Provider Active Star t: March 14, 2025 End: March 14, 2025 Team Status: Active Member Role/Relationship Status Dates Dr. Randa Joseph DO Primary Care Provider Active Start: March 14, 2025 Dr. Murray Mckee MD Attending Provider Active S tart: March 14, 2025 XENA Solorio Referring Provider Active Star t: March 14, 2025 Team Status: Inactive Member Role/Relationship Status Dates Dr. Randa Joseph DO Primary Care Provider Active Start: March 16, 2025 End: March 18, 2025 Dr. Randa Joseph DO Referring Provider Active Start: March 16, 2025 End: March 18, 2025 Dr. Merrill Burns , JOVANY Attending Provider Active Start: March 16, 2025 End: March 18, 2025 Team Status: Inactive Member Role/Relationship Status Dates Dr. Randa Joseph DO Primary Care Provider Active Start: March 28, 2025 End: March 28, 2025 Dr. Rnada Joseph DO Referring Provider Active Start: March 28, 2025 End: March 28, 2025 Ivelisse Gould NP-C Attending Provider Active Start: March 28, 2025 End: March 28, 2025 Team Status: Inactive Member Role/Relationship Status Dates Dr. Randa Joseph DO Primary Care Provider Active Start: March 28, 2025 End: March 28, 2025 Neris Tovar TEA LEAF READER, TEA LEAF READER-C Attending Provider Active Start: March 28, 2025 End: March 28, 2025 Neris Tovar TEA LEAF READER, TEA LEAF READER-C Referring Provider Active Start: March 28, 2025 End: March 28, 2025 Team Status: Inactive Member Role/Relationship Status Dates Dr. Randa Joseph DO Primary Care Provider Active Start: April 12, 2025 End: April 17, 2025 Dr. Randa Joseph DO Referring Provider Active Start: April 12, 2025 End: April 17, 2025 Dr. Merrill Burns , JOVANY Attending Provider Active Start: April 12, 2025 End: April 17, 2025 Team Status: Inactive Member Role/Relationship Status Dates Dr. Randa Joseph DO Primary Care Provider Active Start: April 13, 2025 End: April 13, 2025 Dr. Murray Mckee MD Attending Provider Active S tart: April 13, 2025 End: April 13, 2025 Dr. Murray Mckee MD Referring Provider Active S tart: April 13, 2025 End: April 13, 2025 Team Status: Active Member Role/Relationship Status Dates Dr. Randa Joseph DO Primary Care Provider Active Start: April 13, 2025 Dr. Murray Mckee MD Attending Provider Active S tart: April 13, 2025 Dr. Murray Mckee MD Referring Provider Active S tart: April 13, 2025 Dr. Murray Mckee MD Other Provider Active Start : April 13, 2025 Team Status: Inactive Member Role/Relationship Status Dates Dr. Randa Joseph DO Primary Care Provider Active Start: April 14, 2025 End: April 14, 2025 XENA MERRILL Attending Provider Active St art: April 14, 2025 End: April 14, 2025 XENA MERRILL Referring Provider Active St art: April 14, 2025 End: April 14, 2025 Team Status: Inactive Member Role/Relationship Status Dates Dr. Randa Joseph DO Primary Care Provider Active Start: April 17, 2025 End: April 17, 2025 XENA Solorio Attending Provider Active Star t: April 17, 2025 End: April 17, 2025 XENA Solorio Referring Provider Active Star t: April 17, 2025 End: April 17, 2025 Team Status: Active Member Role/Relationship Status Dates Dr. Randa Joseph DO Primary Care Provider Active Start: April 17, 2025 Dr. Murray Mckee MD Attending Provider Active S tart: April 17, 2025 XENA Solorio Referring Provider Active Star t: April 17, 2025 Team Status: Inactive Member Role/Relationship Status Dates Dr. Randa Joseph DO Primary Care Provider Active Start: April 26, 2025 End: April 26, 2025 Dr. Randa Joseph DO Referring Provider Active Start: April 26, 2025 End: April 26, 2025 XENA Solorio Attending Provider Active Star t: April 26, 2025 End: April 26, 2025 Team Status: Inactive Member Role/Relationship Status Dates Dr. Rnada Joseph DO Primary Care Provider Active Start: May 16, 2025 End: May 16, 2025 Neris Tovar TEA LEAF READER, TEA LEAF READER-C Attending Provider Active Start: May 16, 2025 End: May 16, 2025 Neris Tovar TEA LEAF READER, TEA LEAF READER-C Referring Provider Active Start: May 16, 2025 End: May 16, 2025 Team Status: Inactive Member Role/Relationship Status Dates Dr. Randa Joseph DO Primary Care Provider Active Start: May 18, 2025 End: May 18, 2025 Dr. Randa Joseph DO Referring Provider Active Start: May 18, 2025 End: May 18, 2025 Dr. Merrill Burns DPM Attending Provider Active Start: May 18, 2025 End: May 18, 2025 Team Status: Inactive Member Role/Relationship Status Dates Dr. Randa Joseph DO Primary Care Provider Active Start: June 15, 2025 End: June 18, 2025 Dr. Randa Joseph DO Referring Provider Active Start: June 15, 2025 End: June 18, 2025 Dr. Merrill Burns DPM Attending Provider Active Start: June 15, 2025 End: June 18, 2025 Team Status: Active Member Role/Relationship Status Dates Dr. Randa Joseph DO Primary care physician Active Team Status: Inactive Member Role/Relationship Status Dates Dr. Randa Joseph DO Primary care physician Active Start: March 28, 2025 End: March 28, 2025 Dr. Randa Joseph DO Referring Provider Active Start: March 28, 2025 End: March 28, 2025 Ivelisse Gould NP-C Attending physician Active Start: March 28, 2025 End: March 28, 2025 Team Status: Inactive Member Role/Relationship Status Dates Dr. Randa Joseph DO Primary care physician Active Start: March 28, 2025 End: March 28, 2025 Neris Tovar TEA LEAF READER, TEA LEAF READER-C Attending physician Active Start: March 28, 2025 End: March 28, 2025 Neris Tovar TEA LEAF READER, TEA LEAF READER-C Referring Provider Active Start: March 28, 2025 End: March 28, 2025 Team Status: Inactive Member Role/Relationship Status Dates Dr. Randa Joseph DO Primary care physician Active Start: April 12, 2025 End: April 17, 2025 Dr. Randa Joseph DO Referring Provider Active Start: April 12, 2025 End: April 17, 2025 Dr. Merrill Burns DPM Attending physician Active Start: April 12, 2025 End: April 17, 2025 Team Status: Inactive Member Role/Relationship Status Dates Dr. Randa Joseph DO Primary care physician Active Start: April 13, 2025 End: April 13, 2025 Dr. Murray Mckee MD Attending physician Active Start: April 13, 2025 End: April 13, 2025 Dr. Murray Mckee MD Referring Provider Active S tart: April 13, 2025 End: April 13, 2025 Team Status: Active Member Role/Relationship Status Dates Dr. Randa Joseph DO Primary care physician Active Start: April 13, 2025 Dr. Murray Mckee MD Attending physician Active Start: April 13, 2025 Dr. Murray Mckee MD Referring Provider Active S tart: April 13, 2025 Dr. Murray Mckee MD Nurse Practitioner Active S tart: April 13, 2025 Team Status: Inactive Member Role/Relationship Status Dates Dr. Randa Joseph DO Primary care physician Active Start: April 14, 2025 End: April 14, 2025 XENA MERRILL Attending physician Active S tart: April 14, 2025 End: April 14, 2025 XENA MERRILL Referring Provider Active St art: April 14, 2025 End: April 14, 2025 Team Status: Inactive Member Role/Relationship Status Dates Dr. Randa Joseph DO Primary care physician Active Start: April 17, 2025 End: April 17, 2025 XENA Solorio Attending physician Active Sta rt: April 17, 2025 End: April 17, 2025 XENA Solorio Referring Provider Active Star t: April 17, 2025 End: April 17, 2025 Team Status: Active Member Role/Relationship Status Dates Dr. Randa Joseph DO Primary care physician Active Start: April 17, 2025 Dr. Murray Mckee MD Attending physician Active Start: April 17, 2025 XENA Solorio Referring Provider Active Star t: April 17, 2025 Team Status: Inactive Member Role/Relationship Status Dates Dr. Randa Joseph DO Primary care physician Active Start: April 26, 2025 End: April 26, 2025 Dr. Randa Joseph DO Referring Provider Active Start: April 26, 2025 End: April 26, 2025 XENA Solorio Attending physician Active Sta rt: April 26, 2025 End: April 26, 2025 Team Status: Inactive Member Role/Relationship Status Dates Dr. Randa Joseph DO Primary care physician Active Start: May 16, 2025 End: May 16, 2025 Neris Tovar TEA LEAF READER, TEA LEAF READER-C Attending physician Active Start: May 16, 2025 End: May 16, 2025 Neris Tovar TEA LEAF READER, TEA LEAF READER-C Referring Provider Active Start: May 16, 2025 End: May 16, 2025 Team Status: Inactive Member Role/Relationship Status Dates Dr. Randa Joseph DO Primary care physician Active Start: May 18, 2025 End: May 18, 2025 Dr. Randa Joseph DO Referring Provider Active Start: May 18, 2025 End: May 18, 2025 Dr. Merrill Burns DPM Attending physician Active Start: May 18, 2025 End: May 18, 2025 Team Status: Inactive Member Role/Relationship Status Dates Dr. Randa Joseph DO Primary care physician Active Start: June 15, 2025 End: June 18, 2025 Dr. Randa Joseph DO Referring Provider Active Start: June 15, 2025 End: June 18, 2025 Dr. Merrill Burns DPM Attending physician Active Start: June 15, 2025 End: June 18, 2025 Team Status: Inactive Member Role/Relationship Status Dates Dr. Randa Joseph DO Primary care physician Active Start: July 11, 2025 End: July 11, 2025 Neris Tovar TEA LEAF READER, TEA LEAF READER-C Attending physician Active Start: July 11, 2025 End: July 11, 2025 Neris Tovar TEA LEAF READER, TEA LEAF READER-C Referring Provider Active Start: July 11, 2025 End: July 11, 2025 Team Status: Inactive Member Role/Relationship Status Dates Dr. Randa Joseph DO Primary care physician Active Start: July 18, 2025 End: July 18, 2025 Dr. Randa Joseph DO Referring Provider Active Start: July 18, 2025 End: July 18, 2025 Dr. Jose L Nagel MD Attending physician Active Start: July 18, 2025 End: July 18, 2025 Team Status: Inactive Member Role/Relationship Status Dates Dr. Randa Joseph DO Primary care physician Active Start: April 17, 2025 End: April 17, 2025 XENA Solorio Attending physician Active Sta rt: April 17, 2025 End: April 17, 2025 XENA Solorio Referring Provider Active Star t: April 17, 2025 End: April 17, 2025 Team Status: Active Member Role/Relationship Status Dates Dr. Randa Joseph DO Primary care physician Active Start: April 17, 2025 Dr. Murray Mckee MD Attending physician Active Start: April 17, 2025 XENA Solorio Referring Provider Active Star t: April 17, 2025 Team Status: Inactive Member Role/Relationship Status Dates Dr. Randa Joseph DO Primary care physician Active Start: April 26, 2025 End: April 26, 2025 Dr. Randa Joseph DO Referring Provider Active Start: April 26, 2025 End: April 26, 2025 XENA Solorio Attending physician Active Sta rt: April 26, 2025 End: April 26, 2025 Team Status: Inactive Member Role/Relationship Status Dates Dr. Randa Joseph DO Primary care physician Active Start: May 16, 2025 End: May 16, 2025 Neris Tovar TEA LEAF READER, TEA LEAF READER-C Attending physician Active Start: May 16, 2025 End: May 16, 2025 Neris Tovar NP, TEA LEAF READER-C Referring Provider Active Start: May 16, 2025 End: May 16, 2025 Team Status: Inactive Member Role/Relationship Status Dates Dr. Randa Joseph DO Primary care physician Active Start: May 18, 2025 End: May 18, 2025 Dr. Randa Joseph DO Referring Provider Active Start: May 18, 2025 End: May 18, 2025 Dr. Merrill Burns DPM Attending physician Active Start: May 18, 2025 End: May 18, 2025 Team Status: Inactive Member Role/Relationship Status Dates Dr. Randa Joseph DO Primary care physician Active Start: June 15, 2025 End: June 18, 2025 Dr. Randa Joseph DO Referring Provider Active Start: June 15, 2025 End: June 18, 2025 Dr. Merrill Burns DPM Attending physician Active Start: June 15, 2025 End: June 18, 2025 Team Status: Inactive Member Role/Relationship Status Dates Dr. Randa Joseph DO Primary care physician Active Start: July 11, 2025 End: July 11, 2025 Neris Tovar TEA LEAF READER, TEA LEAF READER-C Attending physician Active Start: July 11, 2025 End: July 11, 2025 Neris Tovar TEA LEAF READER, TEA LEAF READER-C Referring Provider Active Start: July 11, 2025 End: July 11, 2025 Team Status: Inactive Member Role/Relationship Status Dates Dr. Randa Joseph DO Primary care physician Active Start: July 18, 2025 End: July 18, 2025 Dr. Randa Joseph DO Referring Provider Active Start: July 18, 2025 End: July 18, 2025 Dr. Jose L Nagel MD Attending physician Active Start: July 18, 2025 End: July 18, 2025 Team Status: Active Member Role/Relationship Status Dates Dr. Randa Joseph DO Primary care physician Active Start: July 18, 2025 Dr. Randa Joseph DO Referring Provider Active Start: July 18, 2025 Dr. Jose L Nagel MD Attending physician Active Start: July 18, 2025 Dr. Jose L Nagel MD Nurse Practitioner Active Start: July 18, 2025 Team Status: Active Member Role/Relationship Status Dates Dr. Randa Joseph DO Primary care physician Active Start: July 25, 2025 Dr. Randa Joseph DO Referring Provider Active Start: July 25, 2025 Dr. Jose L Nagel MD Attending physician Active Start: July 25, 2025 Dr. Jose L Nagel MD Nurse Practitioner Active Start: July 25, 2025 Team Status: Inactive Member Role/Relationship Status Dates Dr. Randa Joseph DO Primary care physician Active Start: August 01, 2025 End: August 01, 2025 Dr. Randa Joseph DO Referring Provider Active Start: August 01, 2025 End: August 01, 2025 Ivelisse Gould NP-C Attending physician Active Start: August 01, 2025 End: August 01, 2025 Team Status: Active Member Role/Relationship Status Dates Dr. Randa Joseph DO Primary care physician Active Start: August 01, 2025 Dr. Randa Joseph DO Referring Provider Active Start: August 01, 2025 Dr. Jose L Nagel MD Attending physician Active Start: August 01, 2025 Dr. Jose L Nagel MD Nurse Practitioner Active Start: August 01, 2025 Team Status: Active Member Role/Relationship Status Dates Dr. Randa Joseph DO Primary care physician Active Start: August 08, 2025 Dr. Randa Joseph DO Referring Provider Active Start: August 08, 2025 Dr. Jose L Nagel MD Attending physician Active Start: August 08, 2025 Dr. Jose L Nagel MD Nurse Practitioner Active Start: August 08, 2025 Team Status: Active Member Role/Relationship Status Dates Dr. Randa Joseph DO Primary care physician Active Start: August 11, 2025 Dr. Randa Joseph DO Referring Provider Active Start: August 11, 2025 Dr. Jose L Nagel MD Attending physician Active Start: August 11, 2025 FOR RECORDS PERTAINING TO PATIENTS WHO [...] BASED ON THE PRIMARY CLINICAL RECORDS. [facility] [employer] [facility]. provides no warranty or guarantee of the accuracy or completeness of information in this document.
== END 2025-09-05 23:59 | disposition home or self-care (01) ==
LOC: MEDOUTP 14:53
PROVIDERS: PCP Family Medicine; Referring Provider Nurse Practitioner Acute Care; Visit Provider Nurse Practitioner Acute Care
DX: J45.50 Severe persistent asthma, uncomplicated (principal)
CPT/HCPCS: 96372; J0517